=== PATIENT | male | born 1975 ===

== ENCOUNTER 2020-06-13 15:06 | Inpatient (IN) | payer OTHER, SELFPAY ==
--- NOTE | ~2020-06-13 | US_ITS ---
EXAMINATION: US VENOUS WITH DOPPLER UPPER EXTREMITY, RIGHT CLINICAL INFORMATION: Swelling at prior IV site COMPARISON: None TECHNIQUE: Ultrasound of the upper extremity is performed using compression sonography and color and pulse Doppler flow with assessment of augmentation of flow. There is also imaging and Doppler assessment of the jugular and subclavian veins. Spectral analysis with color-flow imaging is performed. FINDINGS: Respiratory variation, normal compression, and augmented flow are noted throughout in the right neck, right subclavian, right axillary and proximal upper extremity including the axillary, brachial, cubital, and radial and ulnar veins to the level of the elbow. There is normal flow in the internal jugular and subclavian veins. There is no visible deep thrombus. There is distention with abnormal hypoechoic echoes within 2 superficial veins in the distal right upper extremity distal to the elbow and extending to the wrist. There is incomplete color saturation and noncompressibility. Nonspecific right cervical lymph nodes. US/US venous duplex UE RT IMPRESSION: There are 2 thrombosed superficial veins in the distal aspect of the right upper extremity. These are distal to the elbow and extending to the wrist and are likely acute. This critical result was discussed with TOO Carmen at 1845 on 06/15/20 and it was ascertained that the content and urgency of the report was understood at the time of direct communication.
--- NOTE | ~2020-06-13 | XR_ITS ---
EXAMINATION: XR CHEST CLINICAL INFORMATION: Covid 19 COMPARISON: None TECHNIQUE: Upright frontal portable view of the chest was obtained. FINDINGS: Devices overlie the patient. There is slight rotation toward the right. Cardiac size is within normal limits. There is no mediastinal or hilar mass. No alveolar edema. There are low lung volumes. There is blunting of the left lateral costophrenic sulcus. No consolidation in the upper lung zones. No pneumothorax. Chronic appearing abnormality of the right AC joint. XR/XR chest 1V IMPRESSION: Hypoinflation with a small opacity at the left lateral costophrenic sulcus. No pneumothorax or edema
[2020-06-13 15:24] VITALS: BP 149/86; PULSE 93; RESP 18; TEMP 37.2; O2SAT 97; BMI 32.2
[2020-06-13 15:33] VITALS: BP 149/86; PULSE 93; RESP 18; TEMP 37.2; O2SAT 97
[2020-06-13 15:44] LABS: Glucose, Whole Blood 138 mg/dL (60-115)
--- NOTE | 2020-06-13 16:38 | PC.NURSE ---
Pt awaiting medical clearance. Pt asleep at current. No signs of distress. Respirations even and unlabored.
[2020-06-13 16:47] LABS: Amphetamine Screen Urine Not Detected (Not Detect); Barbiturates, Urine Not Detected (Not Detect); Benzodiazepines Screen Urine Not Detected (Not Detect); Cannabinoid Screen Urine POSITIVE (Not Detect); Cocaine Screen Urine POSITIVE (Not Detect); Opiate Screen Urine POSITIVE (Not Detect); Phencyclidine Screen Urine POSITIVE (Not Detect)
[2020-06-13 16:58] LABS: Appearance Urine CLEAR; Color Urine YELLOW; Glucose Urine UA NEG (NEG); Leukocyte Esterase Urine NEG (NEG); Nitrite Urine NEG (NEG); Specific Gravity - Urine >= 1.030 (1.005-1.025); Urine Blood NEG (NEG); Urine Ketones 5 MG/DL (NEG); Urine Protein TRACE MG/DL (NEG-TRACE)
[2020-06-13] MEDS: Acetaminophen 325 MG TABLET 650 MG PO (17:12)
[2020-06-13 17:13] LABS: MANUAL DIFF FLAG NO
[2020-06-13 17:15] LABS: Basophils Percent Auto 0.5 % (0-2); Eosinophils Percent Auto 0.5 % (0-4); Hematocrit 39.9 % (42-52); Hemoglobin 13.4 g/dl (14.0-18.0); Imm Gran Abs Auto 0.01 X10*3/uL (0.00-0.03); Imm Gran Pct Auto 0.2 % (0.0-0.4); Lymphocytes Absolute Auto 2.1 X10*3/uL (1.2-4.9); Lymphocytes Percent Auto 36.9 % (20-40); Mean Corpuscular HGB Conc 33.6 g/dl (31.0-36.0); Mean Corpuscular Hemoglobin 29.3 pg (27.0-33.0); Mean Corpuscular Volume 87.3 fL (80-98); Mean Platelet Volume 9.3 fL (9.4-12.4); Monocytes Absolute Auto 0.8 X10*3/uL (0.1-1.2); Monocytes Percent Auto 13.9 % (2-11); Neutrophils Absolute Auto 2.7 X10*3/uL (2.0-8.3); Platelet Count 391 X10*3/uL (160-400); Red Blood Count 4.57 X10*6/uL (4.60-5.80); Red Cell Distribution Width 13.6 % (11.0-16.0); White Blood Count 5.7 X10*3/uL (4.8-10.8)
--- NOTE | 2020-06-13 17:16 | PC.NURSE ---
Pt reports that he has not been taking his suboxone, and has been using heroin IV daily, last used around 1100 today. Drinking 2-3 pints of Amaris daily. Reports that he has never experienced withdrawal symptoms from opiates or ETOH.
[2020-06-13 17:30] LABS: Lithium < 0.10 mmol/L (0.60-1.20)
[2020-06-13 17:37] LABS: Ethanol < 10 mg/dL
[2020-06-13 17:43] LABS: Alanine Aminotransferase 70 U/L (0-40); Albumin Level 3.9 g/dL (3.5-5.0); Alkaline Phosphatase 53 U/L (39-117); Anion Gap 11 (12-20); Aspartate Amino Transferase 81 U/L (5-37); Bilirubin Total 0.4 mg/dL (0.0-1.0); Blood Urea Nitrogen 3 mg/dL (9-16); Calcium 8.7 mg/dL (8.4-10.2); Carbon Dioxide 28 mmol/L (22-29); Chloride 100 mmol/L (96-108); Creatinine Clr Calc Pharmacy 156.8; Estimated Glomerular Filt Rate > 60; Glucose Random 119 mg/dL (60-115); Potassium 3.4 mmol/L (3.3-5.1); Sodium 136 mmol/L (135-145)
--- NOTE | 2020-06-13 18:10 | PC.NURSE ---
[facility] faxed and called, no ETA at this time.
--- NOTE | 2020-06-13 18:14 | PC.NURSE ---
Pt requesting a urinal, reports that he has neuropathy, and that it is painful for him to walk. No cuts or open wounds on the bottom of his feet. Sores around edge of toenail on right great toe, not open. Pt reports they have been there for sometime, and have not been healing.
[2020-06-13 18:17] LABS: COVID-19 Test Positive (Negative)
--- NOTE | 2020-06-13 18:41 | PC.NURSE ---
Shahla, viscose cellar charge hand, and Casey, provider, aware that pt is + COVID
--- NOTE | 2020-06-13 19:02 | PC.NURSE ---
Report received. PT is resting quietly in bed. Calm and cooperative. PT is waiting to be seen by N.
--- NOTE | 2020-06-13 20:31 | ED.PSYCH ---
HPI - Psych General Chief Complaint: Psychiatric Symptoms <Casey Sánchez NP - Last Filed: 06/13/20 20:53> Stated Complaint: crisis <Casey Sánchez NP - Last Filed: 06/13/20 20:53> Time Seen by Provider: 06/13/20 18:28 <Casey Sánchez NP - Last Filed: 06/13/20 20:53> Source: patient <Casey Sánchez NP - Last Filed: 06/13/20 20:53> Mode of arrival: ambulatory <Casey Sánchez NP - Last Filed: 06/13/20 20:53> Limitations: no limitations <Casey Sánchez NP - Last Filed: 06/13/20 20:53> History of Present Illness HPI Narrative: This is a 45-year-old male with significant medical history that consists of diabetes he is insulin-dependent, hypertension, gastroesophageal reflux disease, schizophrenia, hyponatremia, multiple drug overdoses with polysubstance abuse currently some day smoker and currently enrolled in a Suboxone program who presents via EMS from [facility] where he was expressing thoughts of suicidal ideation he does report history of schizophrenia and also intermittent use of cocaine and admits to using EtOH today. He otherwise denies any medical problems today. No recent illness. No specific plan expressed. <Casey Sánchez NP - Last Filed: 06/13/20 20:53> MD complaint: suicidal ideation and feels depressed <Casey Sánchez NP - Last Filed: 06/13/20 20:53> Related Data Home Medications: Home Medications Medication Instructions Recorded Confirmed albuterol sulfate 2 puff INHALATION Q4-6H PRN 06/13/20 06/13/20 benztropine 1 mg PO BID 06/13/20 06/13/20 bisacodyl 10 mg PO DAILY PRN 06/13/20 06/13/20 buprenorphine-naloxone [Suboxone] 1 film BUCCAL BID 06/13/20 06/13/20 bupropion HCl [Wellbutrin XL] 150 mg PO DAILY 06/13/20 06/13/20 clonidine HCl 0.2 mg PO DAILY 06/13/20 06/13/20 diphenhydramine HCl [Benadryl] 50 mg PO BEDTIME 06/13/20 06/13/20 docusate sodium [Colace] 100 mg PO BID PRN 06/13/20 06/13/20 duloxetine 60 mg PO DAILY 06/13/20 06/13/20 finasteride 5 mg PO DAILY 06/13/20 06/13/20 gabapentin 600 mg PO BID 06/13/20 06/13/20 glipizide 10 mg PO DAILY 06/13/20 06/13/20 hydroxyzine pamoate 50 mg PO TID PRN 06/13/20 06/13/20 ibuprofen 400 mg PO Q12H PRN 06/13/20 06/13/20 insulin glargine [Lantus U-100 70 unit SUBCUT BEDTIME 06/13/20 06/13/20 Insulin] lisinopril 20 mg PO DAILY 06/13/20 06/13/20 lithium carbonate 450 mg PO BID 06/13/20 06/13/20 metformin 1,000 mg PO BIDWM 06/13/20 06/13/20 mirtazapine 15 mg PO BEDTIME 06/13/20 06/13/20 naloxone [Narcan] 4 mg INTRANASAL Q2M PRN 06/13/20 06/13/20 nicotine (polacrilex) 2 mg BUCCAL Q2H PRN 06/13/20 06/13/20 nicotine [Nicoderm CQ] 1 patch TRANSDERMAL DAILY 06/13/20 06/13/20 omeprazole 20 mg PO DAILY 06/13/20 06/13/20 perphenazine 16 mg PO BID 06/13/20 06/13/20 polyethylene glycol 3350 [Miralax] 17 g PO DAILY 06/13/20 06/13/20 quetiapine [Seroquel] 600 mg PO DAILY 06/13/20 06/13/20 simvastatin 20 mg PO BEDTIME 06/13/20 06/13/20 tamsulosin [Flomax] 0.4 mg PO BEDTIME 06/13/20 06/13/20 tizanidine [Zanaflex] 4 mg PO BID 06/13/20 06/13/20 topiramate 50 mg PO BEDTIME 06/13/20 06/13/20 trazodone 100 mg PO BEDTIME 06/13/20 06/13/20 triamterene-hydrochlorothiazid 1 tab PO DAILY 06/13/20 06/13/20 venlafaxine [Effexor XR] 150 mg PO DAILY 06/13/20 06/13/20 <Casey Sánchez NP - Last Filed: 06/13/20 20:53> Allergies/Adverse Reactions: Allergies Allergy/AdvReac Type Severity Reaction Status Date / Time buprenorphine [From Subutex] Allergy Angioedema Verified 06/13/20 17:10 <Casey Sánchez NP - Last Filed: 06/13/20 20:53> Review of Systems Review of Systems: Constitutional: No Weight loss, No Fever, No Chills, No Night Sweats, No Fatigue, No Malaise ENT/Mouth: No Hearing loss, No Ear Pain, No Nasal Congestion, No Sinus Pain, No Hoarseness, No sore throat, No Rhinorrhea, No Swallowing Difficulty Eyes: No Eye Pain, No Swelling, No Redness, No Foreign Body, No Discharge, No Vision Changes Cardiovascular: No Chest Pain, No SOB, No Dyspnea on Exertion, No Orthopnea, No Edema, No Palpitations Respiratory: No Cough, No Sputum, No Wheezing, No Smoke Exposure, No Dyspnea Gastrointestinal: No Nausea, No Vomiting, No Diarrhea, No Constipation, No abdominal Pain, No Hematochezia, No Melena Genitourinary: No Dysuria, No Urinary Frequency, No Hematuria, No Urinary Incontinence, No Urgency, No Flank Pain, No Urinary Flow Changes, No Hesitancy Musculoskeletal: No joint pain, No Myalgias, No Joint Swelling Skin: No Skin Lesions, No rash Neuro: No Weakness, No Numbness, No Paresthesias, No Loss of Consciousness, No Dizziness, No Headache Psych: As noted per HPI Heme/Lymph: No Bruising, No Bleeding,No Lymphadenopathy Endocrine: No Polyuria, No Polydipsia, No Temperature Intolerance <Casey Sánchez NP - Last Filed: 06/13/20 20:53> Yes all other systems are reviewed and are negative <Casey Sánchez NP - Last Filed: 06/13/20 20:53> [facility] Past Medical History [facility] Narrative: Type 2 diabetes Hypertension Acid reflux Opiate dependence History of cocaine induced [place] HCV Schizophrenia h/o hyponatremia h/o multiple drug overdoses <Casey Sánchez NP - Last Filed: 06/13/20 20:53> Social History Social History: Social History Alcohol intake: current Smoking Status: Current every day smoker Smoked in Last 30 Days: Yes Use of substances other than those prescribed or required for medical reasons: Yes Substance Use Type: Crack/Cocaine Advance Directives: No Advance Directives Information Provided: Yes <Casey Sánchez NP - Last Filed: 06/13/20 20:53> Physical Exam Vital Signs: Vital Signs: Last Vital Signs Temp 97.2 F 06/14/20 05:07 Pulse 70 06/14/20 05:07 Resp 17 06/14/20 05:07 BP 135/87 06/14/20 05:07 Pulse Ox 98 06/14/20 05:07 Body Mass Index 32.2 Reviewed <Casey Sánchez NP - Last Filed: 06/13/20 20:53> Vital Signs: Last Vital Signs Temp 97.2 F 06/14/20 05:07 Pulse 70 06/14/20 05:07 Resp 17 06/14/20 05:07 BP 135/87 06/14/20 05:07 Pulse Ox 98 06/14/20 05:07 Body Mass Index 32.2 <RESHMA Brooks - Last Filed: 06/14/20 08:30> Const: General: cooperative and healthy appearing; No acute distress or intoxicated appearing <Casey Sánchez NP - Last Filed: 06/13/20 20:53> Nutritional Appearance: average body habitus <Casey Sánchez NP - Last Filed: 06/13/20 20:53> Orientation/consciousness: patient oriented x3 <Casey Sánchez NP - Last Filed: 06/13/20 20:53> HENMT: Head: Yes normal to inspection <Casey Sánchez NP - Last Filed: 06/13/20 20:53> Ears: hearing grossly normal bilaterally <Casey Sánchez NP - Last Filed: 06/13/20 20:53> Eyes: General: appearance normal, both eyes and all related structures <Casey Sánchez NP - Last Filed: 06/13/20 20:53> Visual Calderón: normal visual calderón by confrontation <Casey Sánchez NP - Last Filed: 06/13/20 20:53> Neck: Neck: Yes normal visual inspection, No positive Brudzinski's sign, No positive Kernig's sign and No tender <Casey Sánchez NP - Last Filed: 06/13/20 20:53> Thyroid: Thyroid normal <[facility] Sánchez, [employer]ERK - Last Filed: 06/13/20 20:53> Chest: Chest palpation & inspection: normal inspection of the chest <Casey Sánchez, PENDING S[facility] TO [facility] Last Filed: 06/13/20 20:53> Resp: Effort & Inspection: normal respiratory effort <[facility] Sánchez, [facility]END[facility] TO [facility] Last Filed: 06/13/20 20:53> Auscultation: clear to auscultation bilaterally <[facility] Sánchez, PEND[facility] TO [facility] Last Filed: 06/13/20 20:53> Cardio: Jugular venous distension: no JVD <[facility] Last Filed: 06/13/20 20:53> Rhythm: regular rhythm <[facility] Last Filed: 06/13/20 20:53> Heart sounds: S1 normal heart sound present and S2 normal heart sound present <[facility] Last Filed: 06/13/20 20:53> GI: Inspection: Yes normal to inspection <[facility] Last Filed: 06/13/20 20:53> Percussion: Yes normal to percussion <[facility] WHE[employer]CHA[employer] RENTAL CLERK - Last Filed: 06/13/20 20:53> Auscultation: normal bowel sounds <Casey Sánchez, WHEELCHAIR RENTAL CLERK - Last Filed: 06/13/20 20:53> : General: Yes no CVA tenderness <[facility] Last Filed: 06/13/20 20:53> Back/Spine/Pelvis: Back: no CVA tenderness <Casey TOO Sánchez Last Filed: 06/13/20 20:53> Skin: General skin exam: no rashes or lesions noted <[facility] Last Filed: 06/13/20 20:53> Neuro: General: patient oriented x3 <Casey Sánchez NP - Last Filed: 06/13/20 20:53> Extrem: General: Yes normal to inspection <[facility] TOO Sánchez - Last Filed: 06/13/20 20:53> Course Course Course Narrative: In review 45-year-old male with significant history as noted above presenting with complaint of suicidal ideations with no specific plan. He is enrolled in Suboxone however still intermittently uses multiple substances and feels that he needs to get his life back in order feels suicidal and feels like he needs to have have hospitalization. He was admitted back in September of 2019 for SI with auditory hallucination. At this time will get medical screening labs and COVID test and obtain psychiatric evaluation once patient is medically clear. Patient offers no other medical complaints at this time. <Casey Sánchez NP - Last Filed: 06/13/20 20:53> 06/14/2020-- Physician observation started at 0826. Patient placed in physician observation because the patient needs more time to be seen and evaluated by N for the need for psych admission. At the time observation was started the patient's vitals were stable, patient is COVID-19 positive, currently sleeping, respirations unlabored. Labs reviewed. <RESHMA Brooks - Last Filed: 06/14/20 08:30> Reevaluation(s) Reevaluation #1: [id number] During medical screening labs his positive COVID however he denies any other symptoms. No recent illness. He is otherwise hemodynamically stable no chest pain or shortness of breath. Screening EKG order given polysubstance IU tox Medically cleared for psychiatric evaluation. <Casey Sánchez NP - Last Filed: 06/13/20 20:53> Reevaluation #2: 2100 Sign out to night team pending crisis evaluation. <Casey Sánchez NP - Last Filed: 06/13/20 20:53> MDM - Psych Lab Data Result diagrams: : 06/13/20 17:06 06/13/20 17:06 <Casey Sánchez NP - Last Filed: 06/13/20 20:53> Labs: Lab Results 06/13/20 06/13/20 06/13/20 Range/Units 15:40 16:13 16:13 WBC (4.8-10.8) X10*3/uL RBC (4.60-5.80) X10*6/uL Hgb (14.0-18.0) g/dl Hct (42-52) % MCV (80-98) fL MCH (27.0-33.0) pg MCHC (31.0-36.0) g/dl RDW (11.0-16.0) % Plt Count (160-400) X10*3/uL MPV (9.4-12.4) fL Immature Gran % (Auto) (0.0-0.4) % Neut % (Auto) (45-73) % Lymph % (Auto) (20-40) % Prentiss % (Auto) (2-11) % Eos % (Auto) (0-4) % Baso % (Auto) (0-2) % Lymph # (Auto) (1.2-4.9) X10*3/uL Prentiss # (Auto) (0.1-1.2) X10*3/uL Eos # (Auto) (0.0-0.4) X10*3/uL Baso # (Auto) (0.0-0.2) X10*3/uL Abs Immat Gran (auto) (0.00-0.03) X10*3/uL Absolute Neuts (auto) (2.0-8.3) X10*3/uL Absolute Nucleated RBC (0.0-0.012) X10*3/uL Nucleated RBC % (auto) (0.0-0.2) /100WBC Sodium (135-145) mmol/L Potassium (3.3-5.1) mmol/L Chloride (96-108) mmol/L Carbon Dioxide (22-29) mmol/L Anion Gap (12-20) BUN (9-16) mg/dL Creatinine (0.5-1.4) mg/dL Estim Creat Clear Calc Estimated GFR POC Glucose 138 H (60-115) mg/dL Random Glucose (60-115) mg/dL Calcium (8.4-10.2) mg/dL Total Bilirubin (0.0-1.0) mg/dL AST (5-37) U/L ALT (0-40) U/L Alkaline Phosphatase (39-117) U/L Total Protein (6.5-8.0) g/dL Albumin (3.5-5.0) g/dL Urine Color YELLOW Urine Appearance CLEAR Urine pH 5.0 (5.0-8.0) Ur Specific Royal >= 1.030 H (1.005-1.025) Urine Protein TRACE (NEG-TRACE) MG/DL Urine Glucose (UA) NEG (NEG) MG/DL Urine Ketones 5 (NEG) MG/DL Urine Blood NEG (NEG) Urine Nitrite NEG (NEG) Ur Leukocyte Esterase NEG (NEG) Urine Opiates Screen POSITIVE H (Not Detect) Ur Barbiturates Screen Not Detected (Not Detect) Ur Phencyclidine Scrn POSITIVE H (Not Detect) Ur Amphetamines Screen Not Detected (Not Detect) U Benzodiazepines Scrn Not Detected (Not Detect) [place] (0.60-1.20) mmol/L Urine Cocaine Screen POSITIVE H (Not Detect) U Marijuana (THC) Screen POSITIVE H (Not Detect) Ethyl Alcohol mg/dL COVID-19 (DELIO) (Negative) COVID-19 Clin Com 06/13/20 06/13/20 06/13/20 Range/Units 17:06 17:06 17:06 WBC 5.7 (4.8-10.8) X10*3/uL RBC 4.57 L (4.60-5.80) X10*6/uL Hgb 13.4 L (14.0-18.0) g/dl Hct 39.9 L (42-52) % MCV 87.3 (80-98) fL MCH 29.3 (27.0-33.0) pg MCHC 33.6 (31.0-36.0) g/dl RDW 13.6 (11.0-16.0) % Plt Count 391 (160-400) X10*3/uL MPV 9.3 L (9.4-12.4) fL Immature Gran % (Auto) 0.2 (0.0-0.4) % Neut % (Auto) 48.0 (45-73) % Lymph % (Auto) 36.9 (20-40) % Prentiss % (Auto) 13.9 H (2-11) % Eos % (Auto) 0.5 (0-4) % Baso % (Auto) 0.5 (0-2) % Lymph # (Auto) 2.1 (1.2-4.9) X10*3/uL Prentiss # (Auto) 0.8 (0.1-1.2) X10*3/uL Eos # (Auto) 0.0 (0.0-0.4) X10*3/uL Baso # (Auto) 0.0 (0.0-0.2) X10*3/uL Abs Immat Gran (auto) 0.01 (0.00-0.03) X10*3/uL Absolute Neuts (auto) 2.7 (2.0-8.3) X10*3/uL Absolute Nucleated RBC 0.000 (0.0-0.012) X10*3/uL Nucleated RBC % (auto) 0.0 (0.0-0.2) /100WBC Sodium 136 (135-145) mmol/L Potassium 3.4 (3.3-5.1) mmol/L Chloride 100 (96-108) mmol/L Carbon Dioxide 28 (22-29) mmol/L Anion Gap 11 L (12-20) BUN 3 L (9-16) mg/dL Creatinine 0.77 (0.5-1.4) mg/dL Estim Creat Clear Calc 156.8 Estimated GFR > 60 POC Glucose (60-115) mg/dL Random Glucose 119 H (60-115) mg/dL Calcium 8.7 (8.4-10.2) mg/dL Total Bilirubin 0.4 (0.0-1.0) mg/dL AST 81 H (5-37) U/L ALT 70 H (0-40) U/L Alkaline Phosphatase 53 (39-117) U/L Total Protein 7.0 (6.5-8.0) g/dL Albumin 3.9 (3.5-5.0) g/dL Urine Color Urine Appearance Urine pH (5.0-8.0) Ur Specific Royal (1.005-1.025) Urine Protein (NEG-TRACE) MG/DL Urine Glucose (UA) (NEG) MG/DL Urine Ketones (NEG) MG/DL Urine Blood (NEG) Urine Nitrite (NEG) Ur Leukocyte Esterase (NEG) Urine Opiates Screen (Not Detect) Ur Barbiturates Screen (Not Detect) Ur Phencyclidine Scrn (Not Detect) Ur Amphetamines Screen (Not Detect) U Benzodiazepines Scrn (Not Detect) [place] (0.60-1.20) mmol/L Urine Cocaine Screen (Not Detect) U Marijuana (THC) Screen (Not Detect) Ethyl Alcohol < 10 mg/dL COVID-19 (DELIO) (Negative) COVID-19 Clin Com 06/13/20 06/13/20 Range/Units 17:06 17:06 WBC (4.8-10.8) X10*3/uL RBC (4.60-5.80) X10*6/uL Hgb (14.0-18.0) g/dl Hct (42-52) % MCV (80-98) fL MCH (27.0-33.0) pg MCHC (31.0-36.0) g/dl RDW (11.0-16.0) % Plt Count (160-400) X10*3/uL MPV (9.4-12.4) fL Immature Gran % (Auto) (0.0-0.4) % Neut % (Auto) (45-73) % Lymph % (Auto) (20-40) % P[place]iss % (Auto) (2-11) % Eos % (Auto) (0-4) % Baso % (Auto) (0-2) % Lymph # (Auto) (1.2-4.9) X10*3/uL P[place] # (Auto) (0.1-1.2) X10*3/uL Eos # (Auto) (0.0-0.4) X10*3/uL Baso # (Auto) (0.0-0.2) X10*3/uL Abs Immat Gran (auto) (0.00-0.03) X10*3/uL Absolute Neuts (auto) (2.0-8.3) X10*3/uL Absolute Nucleated RBC (0.0-0.012) X10*3/uL Nucleated RBC % (auto) (0.0-0.2) /100WBC Sodium (135-145) mmol/L Potassium (3.3-5.1) mmol/L Chloride (96-108) mmol/L Carbon Dioxide (22-29) mmol/L Anion Gap (12-20) BUN (9-16) mg/dL Creatinine (0.5-1.4) mg/dL Estim Creat Clear Calc Estimated GFR POC Glucose (60-115) mg/dL Random Glucose (60-115) mg/dL Calcium (8.4-10.2) mg/dL Total Bilirubin (0.0-1.0) mg/dL AST (5-37) U/L ALT (0-40) U/L Alkaline Phosphatase (39-117) U/L Total Protein (6.5-8.0) g/dL Albumin (3.5-5.0) g/dL Urine Color Urine Appearance Urine pH (5.0-8.0) Ur Specific [place] (1.005-1.025) Urine Protein (NEG-TRACE) MG/DL Urine Glucose (UA) (NEG) MG/DL Urine Ketones (NEG) MG/DL Urine Blood (NEG) Urine Nitrite (NEG) Ur Leukocyte Esterase (NEG) Urine Opiates Screen (Not Detect) Ur Barbiturates Screen (Not Detect) Ur Phencyclidine Scrn (Not Detect) Ur Amphetamines Screen (Not Detect) U Benzodiazepines Scrn (Not Detect) [place] < 0.10 L (0.60-1.20) mmol/L Urine Cocaine Screen (Not Detect) U Marijuana (THC) Screen (Not Detect) Ethyl Alcohol mg/dL COVID-19 (DELIO) Positive A (Negative) COVID-19 Clin Com See Note <Casey Sánchez NP - Last Filed: 06/13/20 20:53> Lab Results 06/13/20 06/13/20 06/13/20 Range/Units 15:40 16:13 16:13 WBC (4.8-10.8) X10*3/uL RBC (4.60-5.80) X10*6/uL Hgb (14.0-18.0) g/dl Hct (42-52) % MCV (80-98) fL MCH (27.0-33.0) pg MCHC (31.0-36.0) g/dl RDW (11.0-16.0) % Plt Count (160-400) X10*3/uL MPV (9.4-12.4) fL Immature Gran % (Auto) (0.0-0.4) % Neut % (Auto) (45-73) % Lymph % (Auto) (20-40) % Prentiss % (Auto) (2-11) % Eos % (Auto) (0-4) % Baso % (Auto) (0-2) % Lymph # (Auto) (1.2-4.9) X10*3/uL P[place]iss # (Auto) (0.1-1.2) X10*3/uL Eos # (Auto) (0.0-0.4) X10*3/uL Baso # (Auto) (0.0-0.2) X10*3/uL Abs Immat Gran (auto) (0.00-0.03) X10*3/uL Absolute Neuts (auto) (2.0-8.3) X10*3/uL Absolute Nucleated RBC (0.0-0.012) X10*3/uL Nucleated RBC % (auto) (0.0-0.2) /100WBC Sodium (135-145) mmol/L Potassium (3.3-5.1) mmol/L Chloride (96-108) mmol/L Carbon Dioxide (22-29) mmol/L Anion Gap (12-20) BUN (9-16) mg/dL Creatinine (0.5-1.4) mg/dL Estim Creat Clear Calc Estimated GFR POC Glucose 138 H (60-115) mg/dL Random Glucose (60-115) mg/dL Calcium (8.4-10.2) mg/dL Total Bilirubin (0.0-1.0) mg/dL AST (5-37) U/L ALT (0-40) U/L Alkaline Phosphatase (39-117) U/L Total Protein (6.5-8.0) g/dL Albumin (3.5-5.0) g/dL Urine Color YELLOW Urine Appearance CLEAR Urine pH 5.0 (5.0-8.0) Ur Specific Royal >= 1.030 H (1.005-1.025) Urine Protein TRACE (NEG-TRACE) MG/DL Urine Glucose (UA) NEG (NEG) MG/DL Urine Ketones 5 (NEG) MG/DL Urine Blood NEG (NEG) Urine Nitrite NEG (NEG) Ur Leukocyte Esterase NEG (NEG) Urine Opiates Screen POSITIVE H (Not Detect) Ur Barbiturates Screen Not Detected (Not Detect) Ur Phencyclidine Scrn POSITIVE H (Not Detect) Ur Amphetamines Screen Not Detected (Not Detect) U Benzodiazepines Scrn Not Detected (Not Detect) [place] (0.60-1.20) mmol/L Urine Cocaine Screen POSITIVE H (Not Detect) U Marijuana (THC) Screen POSITIVE H (Not Detect) Ethyl Alcohol mg/dL COVID-19 (DELIO) (Negative) COVID-19 Clin Com 06/13/20 06/13/20 06/13/20 Range/Units 17:06 17:06 17:06 WBC 5.7 (4.8-10.8) X10*3/uL RBC 4.57 L (4.60-5.80) X10*6/uL Hgb 13.4 L (14.0-18.0) g/dl Hct 39.9 L (42-52) % MCV 87.3 (80-98) fL MCH 29.3 (27.0-33.0) pg MCHC 33.6 (31.0-36.0) g/dl RDW 13.6 (11.0-16.0) % Plt Count 391 (160-400) X10*3/uL MPV 9.3 L (9.4-12.4) fL Immature Gran % (Auto) 0.2 (0.0-0.4) % Neut % (Auto) 48.0 (45-73) % Lymph % (Auto) 36.9 (20-40) % [place] % (Auto) 13.9 H (2-11) % Eos % (Auto) 0.5 (0-4) % Baso % (Auto) 0.5 (0-2) % Lymph # (Auto) 2.1 (1.2-4.9) X10*3/uL P[place]iss # (Auto) 0.8 (0.1-1.2) X10*3/uL Eos # (Auto) 0.0 (0.0-0.4) X10*3/uL Baso # (Auto) 0.0 (0.0-0.2) X10*3/uL Abs Immat Gran (auto) 0.01 (0.00-0.03) X10*3/uL Absolute Neuts (auto) 2.7 (2.0-8.3) X10*3/uL Absolute Nucleated RBC 0.000 (0.0-0.012) X10*3/uL Nucleated RBC % (auto) 0.0 (0.0-0.2) /100WBC Sodium 136 (135-145) mmol/L Potassium 3.4 (3.3-5.1) mmol/L Chloride 100 (96-108) mmol/L Carbon Dioxide 28 (22-29) mmol/L Anion Gap 11 L (12-20) BUN 3 L (9-16) mg/dL Creatinine 0.77 (0.5-1.4) mg/dL Estim Creat Clear Calc 156.8 Estimated GFR > 60 POC Glucose (60-115) mg/dL Random Glucose 119 H (60-115) mg/dL Calcium 8.7 (8.4-10.2) mg/dL Total Bilirubin 0.4 (0.0-1.0) mg/dL AST 81 H (5-37) U/L ALT 70 H (0-40) U/L Alkaline Phosphatase 53 (39-117) U/L Total Protein 7.0 (6.5-8.0) g/dL Albumin 3.9 (3.5-5.0) g/dL Urine Color Urine Appearance Urine pH (5.0-8.0) Ur Specific [place] (1.005-1.025) Urine Protein (NEG-TRACE) MG/DL Urine Glucose (UA) (NEG) MG/DL Urine Ketones (NEG) MG/DL Urine Blood (NEG) Urine Nitrite (NEG) Ur Leukocyte Esterase (NEG) Urine Opiates Screen (Not Detect) Ur Barbiturates Screen (Not Detect) Ur Phencyclidine Scrn (Not Detect) Ur Amphetamines Screen (Not Detect) U Benzodiazepines Scrn (Not Detect) [place] (0.60-1.20) mmol/L Urine Cocaine Screen (Not Detect) U Marijuana (THC) Screen (Not Detect) Ethyl Alcohol < 10 mg/dL COVID-19 (DELIO) (Negative) COVID-19 Clin Com 06/13/20 06/13/20 Range/Units 17:06 17:06 WBC (4.8-10.8) X10*3/uL RBC (4.60-5.80) X10*6/uL Hgb (14.0-18.0) g/dl Hct (42-52) % MCV (80-98) fL MCH (27.0-33.0) pg MCHC (31.0-36.0) g/dl RDW (11.0-16.0) % Plt Count (160-400) X10*3/uL MPV (9.4-12.4) fL Immature Gran % (Auto) (0.0-0.4) % Neut % (Auto) (45-73) % Lymph % (Auto) (20-40) % [place] % (Auto) (2-11) % Eos % (Auto) (0-4) % Baso % (Auto) (0-2) % Lymph # (Auto) (1.2-4.9) X10*3/uL [place] # (Auto) (0.1-1.2) X10*3/uL Eos # (Auto) (0.0-0.4) X10*3/uL Baso # (Auto) (0.0-0.2) X10*3/uL Abs Immat Gran (auto) (0.00-0.03) X10*3/uL Absolute Neuts (auto) (2.0-8.3) X10*3/uL Absolute Nucleated RBC (0.0-0.012) X10*3/uL Nucleated RBC % (auto) (0.0-0.2) /100WBC Sodium (135-145) mmol/L Potassium (3.3-5.1) mmol/L Chloride (96-108) mmol/L Carbon Dioxide (22-29) mmol/L Anion Gap (12-20) BUN (9-16) mg/dL Creatinine (0.5-1.4) mg/dL Estim Creat Clear Calc Estimated GFR POC Glucose (60-115) mg/dL Random Glucose (60-115) mg/dL Calcium (8.4-10.2) mg/dL Total Bilirubin (0.0-1.0) mg/dL AST (5-37) U/L ALT (0-40) U/L Alkaline Phosphatase (39-117) U/L Total Protein (6.5-8.0) g/dL Albumin (3.5-5.0) g/dL Urine Color Urine Appearance Urine pH (5.0-8.0) Ur Specific [place] (1.005-1.025) Urine Protein (NEG-TRACE) MG/DL Urine Glucose (UA) (NEG) MG/DL Urine Ketones (NEG) MG/DL Urine Blood (NEG) Urine Nitrite (NEG) Ur Leukocyte Esterase (NEG) Urine Opiates Screen (Not Detect) Ur Barbiturates Screen (Not Detect) Ur Phencyclidine Scrn (Not Detect) Ur Amphetamines Screen (Not Detect) U Benzodiazepines Scrn (Not Detect) [place] < 0.10 L (0.60-1.20) mmol/L Urine Cocaine Screen (Not Detect) U Marijuana (THC) Screen (Not Detect) Ethyl Alcohol mg/dL COVID-19 (DELIO) Positive A (Negative) COVID-19 Clin Com See Note <RESHMA Brooks - Last Filed: 06/14/20 08:30> Discharge Plan Discharge Prescriptions: No Action Lantus U-100 Insulin 100 unit/mL Solution 70 unit SUBCUT BEDTIME RF: 0 quetiapine [Seroquel] 300 mg Tablet 600 mg PO DAILY RF: 0 diphenhydramine HCl [Benadryl] 50 mg Capsule 50 mg PO BEDTIME RF: 0 polyethylene glycol 3350 [Miralax] 17 gram Powder In Packet 17 g PO DAILY RF: 0 nicotine (polacrilex) 2 mg Gum 2 mg BUCCAL Q2H PRN (Reason: Nicotine Cravings) RF: 0 tizanidine [Zanaflex] 4 mg Tablet 4 mg PO BID RF: 0 lisinopril 20 mg Tablet 20 mg PO DAILY RF: 0 glipizide 10 mg Tablet 10 mg PO DAILY RF: 0 venlafaxine [Effexor XR] 150 mg Capsule,Extended Release 24hr 150 mg PO DAILY RF: 0 hydroxyzine pamoate 50 mg Capsule 50 mg PO TID PRN (Reason: Anxiety) RF: 0 lithium carbonate 450 mg Tablet Extended Release 450 mg PO BID RF: 0 clonidine HCl 0.2 mg Tablet 0.2 mg PO DAILY RF: 0 tamsulosin [Flomax] 0.4 mg Capsule 0.4 mg PO BEDTIME RF: 0 trazodone 100 mg Tablet 100 mg PO BEDTIME RF: 0 simvastatin 20 mg Tablet 20 mg PO BEDTIME RF: 0 metformin 1,000 mg Tablet 1,000 mg PO BIDWM RF: 0 ibuprofen 400 mg Tablet 400 mg PO Q12H PRN (Reason: Pain (Scale Score 1-3)) RF: 0 benztropine 1 mg Tablet 1 mg PO BID RF: 0 nicotine [Nicoderm CQ] 21 mg/24 hr Patch 24 Hour 1 patch TRANSDERMAL DAILY RF: 0 docusate sodium [Colace] 100 mg Capsule 100 mg PO BID PRN (Reason: Constipation) RF: 0 gabapentin 300 mg Capsule 600 mg PO BID RF: 0 triamterene-hydrochlorothiazid 37.5-25 mg Tablet 1 tab PO DAILY RF: 0 omeprazole 20 mg Capsule,Delayed Release(Dr/Ec) 20 mg PO DAILY RF: 0 mirtazapine 15 mg Tablet 15 mg PO BEDTIME RF: 0 albuterol sulfate 90 mcg/actuation Hfa Aerosol Inhaler 2 puff INHALATION Q4-6H PRN (Reason: Shortness Of Breath) RF: 0 finasteride 5 mg Tablet 5 mg PO DAILY RF: 0 perphenazine 16 mg Tablet 16 mg PO BID RF: 0 bisacodyl 5 mg Tablet 10 mg PO DAILY PRN (Reason: Constipation) RF: 0 bupropion HCl [Wellbutrin XL] 150 mg Tablet Extended Release 24 Hr 150 mg PO DAILY RF: 0 topiramate 50 mg Tablet 50 mg PO BEDTIME RF: 0 duloxetine 60 mg Capsule,Delayed Release(Dr/Ec) 60 mg PO DAILY RF: 0 buprenorphine-naloxone [Suboxone] 8-2 mg Film 1 film BUCCAL BID RF: 0 Narcan 4 mg/actuation Lucile,Non-Aerosol 4 mg INTRANASAL Q2M PRN (Reason: Opiate Reversal) RF: 0 <Casey Sánchez NP - Last Filed: 06/13/20 20:53>
[2020-06-13 20:38] VITALS: BP 142/84; PULSE 80; RESP 20; TEMP 36.4; O2SAT 96
--- NOTE | 2020-06-13 20:45 | ECG_ITS ---
Test Reason : LOW BP Blood Pressure : / mmHG Vent. Rate : 070 BPM Atrial Rate : 070 BPM P-R Int : 184 ms QRS Dur : 150 ms QT Int : 438 ms P-R-T Axes : 021 -19 044 degrees QTc Int : 473 ms Normal sinus rhythm Right bundle branch block Left axis deviation Abnormal ECG No previous ECGs available Referred By: Casey Sánchez Electronically Signed By:Rodriguez Bourne
[2020-06-13] MEDS: LORazepam 1 MG TABLET 2 MG PO (21:07)
[2020-06-13] MEDS: Gabapentin 300 MG CAPSULE 600 MG PO (22:18)
[2020-06-13] MEDS: Mirtazapine 15 MG TABLET PO (22:18)
[2020-06-13] MEDS: traZODone HCL 100 MG TABLET PO (22:18)
[2020-06-13] MEDS: Lithium Carbonate ER 450 MG TABLET.ER PO (22:18)
[2020-06-13] MEDS: Atorvastatin Calcium 10 MG TABLET PO (22:18)
[2020-06-13] MEDS: TiZANidine HCL 4 MG TABLET PO (22:18)
[2020-06-13] MEDS: Benztropine Mesylate 1 MG TABLET PO (22:18)
[2020-06-13] MEDS: Topiramate 25 MG TABLET 50 MG PO (22:19)
[2020-06-13] MEDS: Insulin Glargine,Hum.rec.anlog 100 UNIT/ML 10 ML VIAL 70 UNIT SUBCUT (22:19)
[2020-06-13] MEDS: diphenhydrAMINE HCL 25 MG TABLET 50 MG PO (22:19)
[2020-06-13] MEDS: Tamsulosin HCL 0.4 MG CAPSULE PO (22:19)
[2020-06-14] VITALS (8 sets, daily range): BP systolic 90–143; BP diastolic 40–94; PULSE 59–78; RESP 14–19; TEMP 36.2–37.1; O2SAT 95–99
--- NOTE | 2020-06-14 06:52 | PC.NURSE ---
Report received. Pt currently sleeping, respirations even and unlabored, in no apparent distress. Pt is inpatient bedsearch.
--- NOTE | 2020-06-14 07:37 | PC.NURSE ---
Report given to Xavier JIMENEZ. PT to move to main ED
[2020-06-14] MEDS: glipiZIDE 10 MG TABLET PO (10:37)
[2020-06-14] MEDS: metFORMIN HCl 1,000 MG TABLET 1000 MG PO (10:38)
[2020-06-14] MEDS: DULoxetine HCl 60 MG CAPSULE.DR PO (10:38)
[2020-06-14] MEDS: Benztropine Mesylate 1 MG TABLET PO (10:38)
[2020-06-14] MEDS: TiZANidine HCL 4 MG TABLET PO (10:38)
[2020-06-14] MEDS: cloNIDine HCL 0.2 MG TABLET PO (10:38)
[2020-06-14] MEDS: Finasteride 5 MG TABLET PO (10:38)
[2020-06-14] MEDS: Gabapentin 300 MG CAPSULE 600 MG PO (10:38)
[2020-06-14] MEDS: Omeprazole 20 MG CAPSULE.DR PO (10:39)
[2020-06-14] MEDS: buPROPion HCl XL 150 MG TAB.ER.24H PO (10:39)
[2020-06-14] MEDS: QUEtiapine Fumarate 300 MG TABLET 600 MG PO (10:39)
[2020-06-14] MEDS: Perphenazine 8 MG TABLET 16 MG PO (10:39)
[2020-06-14] MEDS: Lithium Carbonate ER 450 MG TABLET.ER PO (10:40)
[2020-06-14] MEDS: polyethylene glycoL 3350 17 GM POWD.PACK PO (10:40)
[2020-06-14] MEDS: Venlafaxine HCl ER 150 MG CAP.ER.24H PO (10:40)
[2020-06-14] MEDS: Buprenorphine/Naloxone 8/2 mg FILM 1 FILM BUCCAL (10:40)
[2020-06-14] MEDS: Nicotine 21 MG PATCH.TD24 TRANSDERMA (10:40)
[2020-06-14] MEDS: Triamterene/HCTZ 37.5/25 TABLET 1 TAB PO (11:01)
--- NOTE | 2020-06-14 12:49 | PC.NURSE ---
pt continues to rest in bed, rr even/unlabored. 1:[address], wctm.
[2020-06-14 17:57] LABS: Glucose, Whole Blood 76 mg/dL (60-115)
[2020-06-14 17:58] LABS: Basophils Percent Auto 0.3 % (0-2); Hemoglobin 9.6 g/dl (14.0-18.0); Imm Gran Abs Auto 0.02 X10*3/uL (0.00-0.03); Imm Gran Pct Auto 0.6 % (0.0-0.4); Lymphocytes Absolute Auto 0.3 X10*3/uL (1.2-4.9); Lymphocytes Percent Auto 9.1 % (20-40); MANUAL DIFF FLAG SCAN; Mean Corpuscular Hemoglobin 29.6 pg (27.0-33.0); Mean Corpuscular Volume 92.6 fL (80-98); Monocytes Absolute Auto 0.3 X10*3/uL (0.1-1.2); Monocytes Percent Auto 7.2 % (2-11); Neutrophils Percent Auto 82.8 % (45-73); Platelet Count 223 X10*3/uL (160-400); Red Blood Count 3.24 X10*6/uL (4.60-5.80); Red Cell Distribution Width 13.9 % (11.0-16.0); SCAN SMEAR FLAG 1; White Blood Count 3.6 X10*3/uL (4.8-10.8)
[2020-06-14] MEDS: Naloxone HCl Nasal 4 MG SPRAY NOSTRILALT (17:58)
[2020-06-14] MEDS: 0.9 % Sodium Chloride 1,000 ML 999 ML IVCONT (17:59)
--- NOTE | 2020-06-14 17:59 | PC.NURSE ---
THIS RN IN TO MEDICATE PT W PO METFORMIN, PT HARDLY RESPONSIVE, ONLY TO DEEP PAIN. PRESSURE CHECKED, APPEARS TO BE 60/30 BL, PROVIDER AT BEDSIDE TO EVAL PT. PT CONTINUES TO ONLY RESPOND TO DEEP PAIN. SPO2 SAT 95-96% ON RA ATT. PT MOVED TO [place] POSITION, IV PLACED IN R HAND. PT PRESSURES IMPROVING W 1 LITER AND TREND POSITION. IV ALSO PLACED IN R AC, REPEAT BLOOD LABS DRAWN AND SENT. CXR AT BEDSIDE. PT ALSO GIVEN 4MG NASAL NARCAN W NO EFFECT.
[2020-06-14 18:15] LABS: SLIDE REVIEW VERIFIED
[2020-06-14 18:40] LABS: Alanine Aminotransferase 39 U/L (0-40); Albumin Level 2.4 g/dL (3.5-5.0); Alkaline Phosphatase 32 U/L (39-117); Anion Gap 6 (12-20); Aspartate Amino Transferase 41 U/L (5-37); Bilirubin Direct 0.2 mg/dL (0.0-0.5); Bilirubin Total 0.3 mg/dL (0.0-1.0); Blood Urea Nitrogen 3 mg/dL (9-16); Calcium 5.6 mg/dL (8.4-10.2); Carbon Dioxide 22 mmol/L (22-29); Chloride 119 mmol/L (96-108); Creatinine Clr Calc Pharmacy 185.8; Estimated Glomerular Filt Rate > 60; Glucose Random 58 mg/dL (60-115); Magnesium 1.3 mg/dL (1.6-2.6); Potassium 2.6 mmol/L (3.3-5.1); Sodium 144 mmol/L (135-145); Total Protein 4.3 g/dL (6.5-8.0)
--- NOTE | 2020-06-14 18:49 | PC.NURSE ---
pt w critical low glucose, vo from jeana bishop to push d50 iv. medicated per emar.
[2020-06-14 19:46] LABS: Lactic Acid 1.2 mmol/L (0.5-2.0)
[2020-06-14 20:14] LABS: Anion Gap 10 (12-20); Blood Urea Nitrogen 5 mg/dL (9-16); Calcium 8.6 mg/dL (8.4-10.2); Carbon Dioxide 27 mmol/L (22-29); Chloride 106 mmol/L (96-108); Creatinine Clr Calc Pharmacy 137.2; Estimated Glomerular Filt Rate > 60; Glucose Random 135 mg/dL (60-115); Potassium 3.9 mmol/L (3.3-5.1); Sodium 139 mmol/L (135-145)
[2020-06-14 20:22] LABS: Glucose, Whole Blood 117 mg/dL (60-115)
--- NOTE | 2020-06-14 21:27 | PC.NURSE ---
PA HELD MEDICATION DUE TO PATIENT'S SEDATION LEVEL. BLOOD GLUCOSE 117 AND LANTUS HELD
[2020-06-15] VITALS (7 sets, daily range): BP systolic 120–162; BP diastolic 82–96; PULSE 63–77; RESP 14–22; TEMP 36.6–37.1; O2SAT 96–99
[2020-06-15 03:27] LABS: Glucose, Whole Blood 66 mg/dL (60-115)
--- NOTE | 2020-06-15 04:14 | PC.NURSE ---
Patient was given 25 gm of dextrose for decreased blood sugar.
--- NOTE | 2020-06-15 04:15 | PC.NURSE ---
Patient drop blood sugar to 66 despite lantus and metformin being held. Patient has had decreased intake of food and water. Blood sugars to be checked again
--- NOTE | 2020-06-15 05:00 | PC.NURSE ---
Patient's repeat blood sugar was 217.
[2020-06-15 06:51] LABS: Glucose, Whole Blood 217 mg/dL (60-115)
[2020-06-15 07:30] LABS: Glucose, Whole Blood 82 mg/dL (60-115)
--- NOTE | 2020-06-15 08:49 | PC.NURSE ---
held morning meds at this time per May Mejia, plan to adjust med rec/future hold due to patient status.
[2020-06-15 11:49] LABS: Glucose, Whole Blood 91 mg/dL (60-115)
[2020-06-15 11:59] LABS: MANUAL DIFF FLAG NO
[2020-06-15 12:00] LABS: Basophils Percent Auto 0.5 % (0-2); Hematocrit 43.8 % (42-52); Hemoglobin 14.2 g/dl (14.0-18.0); Lymphocytes Absolute Auto 1.1 X10*3/uL (1.2-4.9); Lymphocytes Percent Auto 28.1 % (20-40); Mean Corpuscular HGB Conc 32.4 g/dl (31.0-36.0); Mean Corpuscular Hemoglobin 28.7 pg (27.0-33.0); Mean Corpuscular Volume 88.7 fL (80-98); Mean Platelet Volume 9.2 fL (9.4-12.4); Monocytes Absolute Auto 0.7 X10*3/uL (0.1-1.2); Monocytes Percent Auto 17.6 % (2-11); Neutrophils Absolute Auto 2.1 X10*3/uL (2.0-8.3); Neutrophils Percent Auto 52.8 % (45-73); Platelet Count 307 X10*3/uL (160-400); Red Blood Count 4.94 X10*6/uL (4.60-5.80); Red Cell Distribution Width 13.9 % (11.0-16.0); White Blood Count 3.9 X10*3/uL (4.8-10.8)
[2020-06-15] MEDS: buPROPion HCl XL 150 MG TAB.ER.24H PO (12:18)
[2020-06-15] MEDS: Lithium Carbonate ER 450 MG TABLET.ER PO ×2 (12:19→21:28)
[2020-06-15] MEDS: Omeprazole 20 MG CAPSULE.DR PO (12:19)
[2020-06-15] MEDS: Venlafaxine HCl ER 150 MG CAP.ER.24H PO (12:19)
[2020-06-15] MEDS: Finasteride 5 MG TABLET PO (12:20)
[2020-06-15] MEDS: DULoxetine HCl 60 MG CAPSULE.DR PO (12:20)
[2020-06-15] MEDS: Nicotine 21 MG PATCH.TD24 TRANSDERMA (12:21)
--- NOTE | 2020-06-15 12:28 | PC.NURSE ---
per pa hold metformin, cogentin, catapres, gabapentin, lisinopril, maxzide from today on as well as other meds held by previous providers. pharmacy aware of hold medications and will fix in computer.
--- NOTE | 2020-06-15 12:33 | PC.NURSE ---
documented against nicotene patch from 06/14/2020 d/t not being documented on previously by rn that day
[2020-06-15 15:50] LABS: Glucose, Whole Blood 106 mg/dL (60-115)
--- NOTE | 2020-06-15 15:53 | PC.NURSE ---
this rn in to medicate pt. pt reports r hand redness, swelling, and is warm to touch. pa to bedside and plan to ultra sound hand. iv removed from r thumb/hand
[2020-06-15] MEDS: Azithromycin 500 MG TABLET PO (15:55)
[2020-06-15] MEDS: Amoxicillin/Potassium Clav 875 MG TABLET PO ×2 (15:55→21:28)
[2020-06-15] MEDS: Buprenorphine/Naloxone 8/2 mg FILM 1 FILM BUCCAL (21:28)
[2020-06-15] MEDS: Atorvastatin Calcium 10 MG TABLET PO (21:28)
[2020-06-15] MEDS: Tamsulosin HCL 0.4 MG CAPSULE PO (21:28)
[2020-06-15] MEDS: Topiramate 25 MG TABLET 50 MG PO (21:28)
--- NOTE | 2020-06-15 22:50 | PC.NURSE ---
PATIENT MEDICATED ORDERED. REQUESTED AND GIVEN ICE WATER, GEN MADHU, AND PEANUT BUTTER & JELLY SANDWICH. SITTER REMAINS. WILL CONTINUE TO MONITOR.
[2020-06-16 02:33] VITALS: PULSE 74; RESP 16; O2SAT 97
[2020-06-16 04:00] VITALS: PULSE 72; RESP 16
--- NOTE | 2020-06-16 08:56 | PC.NURSE ---
spoke with Karyn pt is still a bed search, will be seen again when options are exausted.
[2020-06-16 12:00] VITALS: PULSE 72; RESP 18; O2SAT 100
[2020-06-16] MEDS: Nicotine 21 MG PATCH.TD24 TRANSDERMA (12:33)
[2020-06-16] MEDS: Buprenorphine/Naloxone 8/2 mg FILM 1 FILM BUCCAL ×2 (12:34→21:40)
[2020-06-16] MEDS: Amoxicillin/Potassium Clav 875 MG TABLET PO ×2 (12:34→21:38)
[2020-06-16 12:35] VITALS: BP 140/95; PULSE 68
[2020-06-16] MEDS: Omeprazole 20 MG CAPSULE.DR PO (12:35)
[2020-06-16] MEDS: buPROPion HCl XL 150 MG TAB.ER.24H PO (12:35)
[2020-06-16] MEDS: metFORMIN HCl 1,000 MG TABLET 1000 MG PO (12:35)
[2020-06-16] MEDS: DULoxetine HCl 60 MG CAPSULE.DR PO (12:35)
[2020-06-16] MEDS: Finasteride 5 MG TABLET PO (12:36)
[2020-06-16] MEDS: Azithromycin 250 MG TABLET PO (12:36)
[2020-06-16] MEDS: polyethylene glycoL 3350 17 GM POWD.PACK PO (12:36)
[2020-06-16] MEDS: glipiZIDE 10 MG TABLET PO (12:36)
[2020-06-16] MEDS: Venlafaxine HCl ER 150 MG CAP.ER.24H PO (12:36)
[2020-06-16] MEDS: Aspirin 81 MG TAB.CHEW PO (12:36)
[2020-06-16] MEDS: Lithium Carbonate ER 450 MG TABLET.ER PO ×2 (12:51→22:59)
[2020-06-16 12:52] LABS: Glucose, Whole Blood 98 mg/dL (60-115)
[2020-06-16 18:19] LABS: Glucose, Whole Blood 53 mg/dL (60-115)
--- NOTE | 2020-06-16 18:39 | PC.NURSE ---
POC, 53 gave orange juice, and held metforman
--- NOTE | 2020-06-16 19:29 | PC.NURSE ---
Report taken from pritesh Shannon RN resuming care. Sitter at bedside. Pt resting in bed. Continue to monitor. Plan to recheck POC.
[2020-06-16 19:50] LABS: Glucose, Whole Blood 73 mg/dL (60-115)
[2020-06-16] MEDS: Atorvastatin Calcium 10 MG TABLET PO (21:38)
[2020-06-16] MEDS: Gabapentin 300 MG CAPSULE 600 MG PO (21:38)
[2020-06-16] MEDS: Benztropine Mesylate 1 MG TABLET PO (21:39)
[2020-06-16] MEDS: Topiramate 25 MG TABLET 50 MG PO (21:39)
[2020-06-16] MEDS: traZODone HCL 100 MG TABLET PO (21:39)
[2020-06-16] MEDS: diphenhydrAMINE HCL 25 MG TABLET 50 MG PO (21:39)
[2020-06-16] MEDS: Tamsulosin HCL 0.4 MG CAPSULE PO (21:39)
[2020-06-16] MEDS: Mirtazapine 15 MG TABLET PO (21:39)
[2020-06-16 21:42] VITALS: BP 125/86; PULSE 74; RESP 16
--- NOTE | 2020-06-16 21:48 | PC.NURSE ---
Medicater per JUN. VSS. Pt provided with food/drink.
--- NOTE | 2020-06-16 22:41 | PC.NURSE ---
2100 Insulin held due to POC of 69 mg/dl. Pt provided with food/drink. Plan to reassess.
[2020-06-16 22:59] VITALS: PULSE 69; RESP 16
--- NOTE | 2020-06-16 23:00 | PC.NURSE ---
Medicated with [place] per MAR. VSS. Sitter at bedside.
[2020-06-16 23:17] LABS: Glucose, Whole Blood 69 mg/dL (60-115)
[2020-06-17] VITALS (9 sets, daily range): BP systolic 109–114; BP diastolic 69–77; PULSE 65–94; RESP 14–18; TEMP 36.6; O2SAT 95–99
[2020-06-17 00:33] LABS: Glucose, Whole Blood 83 mg/dL (60-115)
--- NOTE | 2020-06-17 01:38 | PC.NURSE ---
pm technician at bedside to obtain repeat lactic.
[2020-06-17 07:29] LABS: Glucose, Whole Blood 125 mg/dL (60-115)
[2020-06-17] MEDS: polyethylene glycoL 3350 17 GM POWD.PACK PO (08:29)
[2020-06-17] MEDS: Nicotine 21 MG PATCH.TD24 TRANSDERMA (08:29)
[2020-06-17] MEDS: Triamterene/HCTZ 37.5/25 TABLET 1 TAB PO (08:30)
[2020-06-17] MEDS: buPROPion HCl XL 150 MG TAB.ER.24H PO (08:30)
[2020-06-17] MEDS: Buprenorphine/Naloxone 8/2 mg FILM 1 FILM BUCCAL (08:30)
[2020-06-17] MEDS: DULoxetine HCl 60 MG CAPSULE.DR PO (08:30)
[2020-06-17] MEDS: glipiZIDE 10 MG TABLET PO (08:30)
[2020-06-17] MEDS: Gabapentin 300 MG CAPSULE 600 MG PO (08:30)
[2020-06-17] MEDS: Benztropine Mesylate 1 MG TABLET PO (08:30)
[2020-06-17] MEDS: Azithromycin 250 MG TABLET PO (08:31)
[2020-06-17] MEDS: Aspirin 81 MG TAB.CHEW PO (08:31)
[2020-06-17] MEDS: metFORMIN HCl 1,000 MG TABLET 1000 MG PO (08:31)
[2020-06-17] MEDS: Amoxicillin/Potassium Clav 875 MG TABLET PO (08:31)
[2020-06-17] MEDS: Omeprazole 20 MG CAPSULE.DR PO (08:31)
[2020-06-17] MEDS: Venlafaxine HCl ER 150 MG CAP.ER.24H PO (08:31)
[2020-06-17] MEDS: Lithium Carbonate ER 450 MG TABLET.ER PO (08:31)
[2020-06-17] MEDS: Finasteride 5 MG TABLET PO (08:32)
--- NOTE | 2020-06-17 08:53 | PC.NURSE ---
Pt sleeping, awakes easily. Accepted AM meds. Ate 100% of breakfast. NSR on tele. Clonidine held d/t BP 111/75 and pt with recent h/o hypotension, Casey Sánchez updated/approved. Pt does report SI with command auditory hallucinations to harm self. Pt is calm and cooperative, oriented x4. 1:1 pt observer maintained. Right hand edematous, +CMS, cap refill <2sec. Palpable radial pulse, warm compress applied as ordered.
--- NOTE | 2020-06-17 09:22 | PC.NURSE ---
new order for consult to psychiatry for med review
--- NOTE | 2020-06-17 12:01 | PC.NURSE ---
Mer macdonald to assess pt for psych consult
--- NOTE | 2020-06-17 13:56 | P.CNPS_ITS ---
History of Present Illness Date of Service: 06/17/2020 Chief Complaint: crisis Requesting physician: Casey Sánchez Discussed with referring provider: Yes Sources of Information: patient interviewed and chart reviewed Additional Sources of Information: RN from [facility] HPI Narrative: Patient is a 45 year old male with history of schizophrenia, opioid and cocaine use disorder Currently in ED awaiting psychiatric admission for reported suicidal ideation. Consult requested to make medication recommendations. Of note, patient found to be Covid + upon admission to ED. Patient seen in room 3 of ED. He was laying on stretcher, initially asleep, but woke to speak to this short story writer. Patient unable to name any of the medications he was currently prescribed, but would say yes to any medicaiton that was mentioned. He states that his psychiatric provider is Kerry at [address] [place] [address] in [facility]. Unable to tell me when he last saw her, but able to report that most recently he was at the [facility] and medicaitons were changed then. He is still reporting suicidal ideation (feeling that he morfin snot want to be alive), reports hearing voices telling him he should kill himself and that he is worthless. Medication list in chart is what was provided by PCP office. The medication list is extensive and a number of psychiatric medications are from the same class. PCP office faxed [facility] discharge summary from 05/14/2020 which included a medication list different from what was provided to [facility] initially. Collateral from RN at [facility] is also that patient was not taking medications as prescribed since discharge from hospital in May. She is unclear what if any medications patient was taking. Past Psychiatric History: Numerous psychiatric admissions Medical Evaluation Reviewed: Yes UDS positive for cocaine, PCP and opiates Personal & Social History: per RN at [facility], patient is currently homeless Review of Systems Constitutional: Reports body ache(s), Reports lethargy and Reports malaise Psychiatric: Reports anxiety, Reports depression, Reports hopelessness, Denies homicidal ideation and Reports suicidal ideation Diagnostics Vital Signs (24Hr): Vital Signs - 24 hr 06/16/20 21:42 06/16/20 22:59 06/17/20 00:09 Temperature Pulse Rate 74 69 65 Respiratory Rate 16 16 14 Blood Pressure 125/86 Pulse Oximetry 06/17/20 02:00 06/17/20 03:53 06/17/20 06:00 Temperature Pulse Rate Respiratory Rate 15 16 16 Blood Pressure Pulse Oximetry 06/17/20 06:12 06/17/20 08:31 06/17/20 08:43 Temperature 97.8 F Pulse Rate 93 72 86 Respiratory Rate 18 16 Blood Pressure 114/73 111/75 111/75 Pulse Oximetry 99 97 06/17/20 10:21 06/17/20 13:47 Temperature 97.8 F Pulse Rate 84 94 Respiratory Rate 16 16 Blood Pressure 112/77 109/69 Pulse Oximetry 95 96 Body Mass Index 32.2 Labs Results: 06/15/20 11:37 06/14/20 19:34 Labs: Laboratory Results - last 48 hr 06/15/20 06/16/20 06/16/20 15:44 12:44 18:14 POC Glucose 106 98 53 L* 06/16/20 06/16/20 06/17/20 19:35 22:10 00:25 POC Glucose 73 69 83 06/17/20 07:24 POC Glucose 125 H Imaging Radiology Impressions: ITS Impressions Chest X-Ray 06/14/20 17:26 IMPRESSION: Hypoinflation with a small opacity at the left lateral costophrenic sulcus. No pneumothorax or edema Venous Duplex 06/15/20 15:48 IMPRESSION: There are 2 thrombosed superficial veins in the distal aspect of the right upper extremity. These are distal to the elbow and extending to the wrist and are likely acute. This critical result was discussed with TOO Carmen at 1845 on 06/15/20 and it was ascertained that the content and urgency of the report was understood at the time of direct communication. Mental Status Exam Mental Status Exam Patient Appearance: Appropriate Patient Orientation: Person, Place and Situation Level of Consciousness: Appropriate Patient Behavior: Appropriate Mood Description: Blunted Affect Description: Blunted Ability to Follow Directions: Good Speech Pattern: Clear and Soft-Spoken Hallucinations: Auditory Thought Process: Rumination Thought Content: positive for Plato and positive for Suicidal Ideation Depressive Symptoms: Increased Anxiety, Feelings of Worthlessness, Hopelessness, Unhappiness and Low Self Esteem Judgement: Poor Medications Medications Current Medications Generic Name Dose Route Start Last Admin Trade Name Freq PRN Reason Stop Dose Admin Albuterol Sulfate 2 puff 06/13/20 20:37 Albuterol Sulfate 90 Mcg 8 Gm Inhaler INHALE Q4H PRN Shortness Of Breath Amoxicillin/Clavulanate Potassium 875 mg 06/15/20 14:55 06/17/20 08:31 Amoxicillin/Potassium Clav 875 Mg Tablet PO 06/22/20 14:54 875 mg BID SHABBIR Administration Aspirin 81 mg 06/16/20 09:00 06/17/20 08:31 Aspirin 81 Mg Tab.Chew PO 07/17/20 09:00 81 mg DAILY SHABBIR Administration Atorvastatin Calcium 10 mg 06/13/20 21:00 06/16/20 21:38 Atorvastatin Calcium 10 Mg Tablet PO 10 mg BEDTIME SHABBIR Administration Azithromycin 250 mg 06/16/20 09:00 06/17/20 08:31 Azithromycin 250 Mg Tablet PO 06/20/20 08:59 250 mg DAILY SHABBIR Administration Bisacodyl 10 mg 06/13/20 21:10 Bisacodyl 5 Mg Tablet.Dr PO DAILY PRN Constipation Buprenorphine/Naloxone 1 film 06/13/20 21:00 06/17/20 08:30 Buprenorphine/Naloxone 8/2 Mg Film BUCCAL 1 film BID SHABBIR Administration Bupropion HCl 150 mg 06/13/20 20:45 06/17/20 08:30 Bupropion Hcl Xl 150 Mg Tab.Er.24h PO 150 mg DAILY SHABBIR Administration Clonidine HCl 0.2 mg 06/13/20 20:45 06/17/20 08:39 Clonidine Hcl 0.2 Mg Tablet PO Not Given DAILY [facility] Protocol Docusate Sodium 100 mg 06/13/20 20:37 Docusate Sodium 100 Mg Capsule PO BID PRN Constipation Finasteride 5 mg 06/14/20 09:00 06/17/20 08:32 Finasteride 5 Mg Tablet PO 5 mg DAILY SHABBIR Administration Gabapentin 600 mg 06/13/20 21:00 06/17/20 08:30 Gabapentin 300 Mg Capsule PO 600 mg BID SHABBIR Administration Glipizide 10 mg 06/14/20 09:00 06/17/20 08:30 Glipizide 10 Mg Tablet PO 10 mg DAILY SHABBIR Administration Hydroxyzine HCl 50 mg 06/13/20 20:37 Hydroxyzine Hcl 50 Mg Tablet PO TID PRN Anxiety Ibuprofen 400 mg 06/13/20 21:03 Ibuprofen 400 Mg Tablet PO Q12H PRN Pain (Scale Score 1-3) Insulin Glargine 70 unit 06/13/20 21:00 06/16/20 22:40 Insulin Glargine,Hum.Rec.Anlog 100 Unit/Ml 10 Ml Vial SUBCUT Not Given BEDTIME SHABBIR Lisinopril 20 mg 06/14/20 09:00 06/17/20 08:31 Lisinopril 20 Mg Tablet PO 20 mg DAILY SHABBIR Administration Protocol [place] Carbonate 450 mg 06/13/20 21:00 06/17/20 08:31 [place] Carbonate Er 450 Mg Tablet.Er PO 450 mg BID SHABBIR Administration Metformin HCl 1,000 mg 06/14/20 08:00 06/17/20 08:31 Metformin Hcl 1,000 Mg Tablet PO 1,000 mg BIDWM SHABBIR Administration Naloxone HCl 4 mg 06/13/20 21:03 Naloxone Hcl Nasal 4 Mg [place] NOSTRILALT Q2M PRN Opiate Reversal Nicotine 21 mg 06/14/20 09:00 06/17/20 08:29 Nicotine 21 Mg Patch.Td24 TRANSDERMA 21 mg DAILY SHABBIR Administration Nicotine Polacrilex 2 mg 06/13/20 20:37 Nicotine Polacrilex 2 Mg Gum BUCCAL Q2H PRN Nicotine Cravings Omeprazole 20 mg 06/14/20 09:00 06/17/20 08:31 Omeprazole 20 Mg Capsule.Dr PO 20 mg DAILY SHABBIR Administration Polyethylene Glycol 17 gm 06/14/20 09:00 06/17/20 08:29 Polyethylene Glycol 3350 17 Gm Powd.Pack PO 17 gm DAILY SHABBIR Administration Quetiapine Fumarate 600 mg 06/14/20 09:00 06/14/20 10:39 Quetiapine Fumarate 300 Mg Tablet PO 600 mg DAILY SHABBIR Administration Tamsulosin HCl 0.4 mg 06/13/20 21:15 06/16/20 21:39 Tamsulosin Hcl 0.4 Mg Capsule PO 0.4 mg BEDTIME SHABBIR Administration Tizanidine HCl 4 mg 06/13/20 21:00 06/14/20 21:26 Tizanidine Hcl 4 Mg Tablet PO Not Given BID SHABBIR Trazodone HCl 100 mg 06/13/20 21:00 06/16/20 21:39 Trazodone Hcl 100 Mg Tablet PO 100 mg BEDTIME SHABBIR Administration Triamterene/Hydrochlorothiazide 1 tab 06/14/20 09:00 06/17/20 08:30 Triamterene/Hctz 37.5/25 Tablet PO 1 tab DAILY SHABBIR Administration Protocol Allergies Allergies Allergy/AdvReac Type Severity Reaction Status Date / Time buprenorphine [From Subutex] Allergy Angioedema Verified 06/13/20 17:10 Assessment & Plan Assessment & Plan (1) Schizophrenia: Status: Acute Code(s): F20.9 - Schizophrenia, unspecified Recommendations: * medication changes made to current orders--sevral discontinued and the following medications are now active -Zyprexa 5mg QHS -Wellbutrin 150mg QD -Gabapentin 300mg TID -Trazodone 100mg QHS -Hydroxyzine 50mg TID PRN -Clonidine 0.1mg BID PRN * Additional labs should be drawn: chem panel, TSH, * medication list placed in patient's chart, provider aware * patient awaiting psychiatric admission (2) Opioid use disorder: Status: Acute Code(s): F11.99 - Opioid use, unspecified with unspecified opioid-induced disorder Recommendations: Continue suboxone as currently ordered Greater than 50% of the session was spent on counseling and/or coordination of care
--- NOTE | 2020-06-17 14:47 | PC.NURSE ---
Pt continues to sleep throughout shift, awakes and asks for snacks. Pt observer remains for safety. Multiple med changes made by psych, see MAR for details
[2020-06-17 17:04] LABS: Glucose, Whole Blood 59 mg/dL (60-115)
[2020-06-17 17:43] LABS: Glucose, Whole Blood 105 mg/dL (60-115)
--- NOTE | 2020-06-17 18:20 | PC.NURSE ---
Addendum entered by Lamar Delarosa 06/17/20 18:45: recheck poc 105, metformin held, ate dinner 100% Original Note: POC 59, snack given, recheck
[2020-06-18] VITALS (9 sets, daily range): BP systolic 96–156; BP diastolic 56–78; PULSE 84–92; RESP 14–16; TEMP 36.5–37; O2SAT 95–98
[2020-06-18] MEDS: Amoxicillin/Potassium Clav 875 MG TABLET PO ×3 (00:10→20:26)
[2020-06-18] MEDS: OLANZapine 5 MG TABLET PO ×2 (00:10→20:26)
[2020-06-18] MEDS: Gabapentin 300 MG CAPSULE PO ×4 (00:10→20:26)
[2020-06-18] MEDS: Tamsulosin HCL 0.4 MG CAPSULE PO ×2 (00:10→20:26)
[2020-06-18] MEDS: traZODone HCL 100 MG TABLET PO ×2 (00:10→20:26)
[2020-06-18] MEDS: Atorvastatin Calcium 10 MG TABLET PO ×2 (00:11→20:26)
[2020-06-18] MEDS: Insulin Glargine,Hum.rec.anlog 100 UNIT/ML 10 ML VIAL 70 UNIT SUBCUT ×2 (00:11→20:26)
[2020-06-18] MEDS: Buprenorphine/Naloxone 8/2 mg FILM 1 FILM BUCCAL ×3 (00:11→20:27)
[2020-06-18] MEDS: glipiZIDE 10 MG TABLET PO (09:00)
[2020-06-18] MEDS: Aspirin 81 MG TAB.CHEW PO (09:00)
[2020-06-18] MEDS: Omeprazole 20 MG CAPSULE.DR PO (09:12)
[2020-06-18] MEDS: Finasteride 5 MG TABLET PO (09:12)
[2020-06-18] MEDS: Azithromycin 250 MG TABLET PO (09:12)
[2020-06-18] MEDS: metFORMIN HCl 1,000 MG TABLET 1000 MG PO ×2 (09:15→16:12)
--- NOTE | 2020-06-18 09:24 | PC.NURSE ---
spoke with Radhika from crisis. BedSEARCH REPORT PT MAY GO TO [facility]. nEED cOVID + RESULT FAXED TO HOSPITAL. ed SEC WORKING OIN THIS NOW
[2020-06-18 09:54] LABS: Prothrombin Time 12.2 SEC (10.8-13.0)
[2020-06-18 10:14] LABS: Alanine Aminotransferase 51 U/L (0-40); Alkaline Phosphatase 64 U/L (39-117); Anion Gap 11 (12-20); Aspartate Amino Transferase 52 U/L (5-37); Bilirubin Direct 0.3 mg/dL (0.0-0.5); Bilirubin Total 0.5 mg/dL (0.0-1.0); Blood Urea Nitrogen 10 mg/dL (9-16); Calcium 9.1 mg/dL (8.4-10.2); Carbon Dioxide 31 mmol/L (22-29); Chloride 97 mmol/L (96-108); Creatinine Clr Calc Pharmacy 120.7; Estimated Glomerular Filt Rate > 60; Glucose Random 122 mg/dL (60-115); Magnesium 1.8 mg/dL (1.6-2.6); Potassium 3.7 mmol/L (3.3-5.1); Sodium 135 mmol/L (135-145); Total Protein 7.6 g/dL (6.5-8.0)
[2020-06-18 10:31] LABS: Thyroid Stimulating Hormone 2.33 uIU/mL (0.32-4.0)
[2020-06-18] MEDS: buPROPion HCl XL 150 MG TAB.ER.24H PO (12:30)
[2020-06-18] MEDS: polyethylene glycoL 3350 17 GM POWD.PACK PO (12:30)
[2020-06-18] MEDS: Triamterene/HCTZ 37.5/25 TABLET 1 TAB PO (12:30)
[2020-06-18] MEDS: Nicotine 21 MG PATCH.TD24 TRANSDERMA (12:32)
[2020-06-18] MEDS: Ibuprofen 400 MG TABLET PO (12:46)
--- NOTE | 2020-06-18 12:48 | PC.NURSE ---
SITTER REMAINS AT BEDSIDE. PT CALM & COOPERATIVE THROUGHOUT AM, SLEEPING, RESP EVEN, NONLABOURED. ATE 100% OF BREAKFAST. C/O GENERALIZED MYALGIA. GIVEN PRN IBU. SOME TECHNICAL DIFFICULTIES DELAYED MED ADMINISTRATION.
--- NOTE | 2020-06-18 15:46 | PC.NURSE ---
PT SLEPING ALL MORNING, EASILY ROUSED.
--- NOTE | 2020-06-18 15:48 | PC.NURSE ---
CALL MADE OUT TO [facility]. REMAINS [facility] BEDSEARCH, NO BED AVAILABLE.
[2020-06-18 16:19] LABS: Glucose, Whole Blood 100 mg/dL (60-115)
[2020-06-18 20:06] LABS: Glucose, Whole Blood 146 mg/dL (60-115)
--- NOTE | 2020-06-18 21:48 | PC.NURSE ---
SITTER REMAINS AT BEDSIDE. PT CONTINUES TO SLEEP, EASILY WOKEN. ATE 100% OF DINNER. MEDS GIVEN WITH NO ISSUE. CONTINUES TO REPORT SI, WITH NO PLAN AT THIS TIME. COWS 6.
[2020-06-19] VITALS (11 sets, daily range): BP systolic 105–118; BP diastolic 66–77; PULSE 84–104; RESP 14–19; TEMP 36.5–36.9; O2SAT 96–99
[2020-06-19] MEDS: Amoxicillin/Potassium Clav 875 MG TABLET PO ×2 (09:00→20:48)
[2020-06-19] MEDS: Finasteride 5 MG TABLET PO (09:00)
[2020-06-19] MEDS: glipiZIDE 10 MG TABLET PO (09:00)
[2020-06-19] MEDS: metFORMIN HCl 1,000 MG TABLET 1000 MG PO ×2 (09:00→18:28)
[2020-06-19] MEDS: buPROPion HCl XL 150 MG TAB.ER.24H PO (09:01)
[2020-06-19] MEDS: Triamterene/HCTZ 37.5/25 TABLET 1 TAB PO (09:01)
[2020-06-19] MEDS: Aspirin 81 MG TAB.CHEW PO (09:01)
[2020-06-19] MEDS: Azithromycin 250 MG TABLET PO (09:01)
[2020-06-19] MEDS: Gabapentin 300 MG CAPSULE PO ×3 (09:01→20:48)
[2020-06-19] MEDS: Nicotine 21 MG PATCH.TD24 TRANSDERMA (09:03)
[2020-06-19] MEDS: polyethylene glycoL 3350 17 GM POWD.PACK PO (09:04)
[2020-06-19] MEDS: Omeprazole 20 MG CAPSULE.DR PO (09:05)
--- NOTE | 2020-06-19 10:00 | PC.NURSE ---
Pt sleeping but arousable. Offers no complaints at this time. Respirations even/unlabored bilaterally. No sign of distress. Will continue to monitor. provider aware.
[2020-06-19 10:18] LABS: COVID-19 Test Positive (Negative)
--- NOTE | 2020-06-19 14:06 | MHC.CARE ---
Rosamaria Spoke to Shoshana from [facility] Bedsearch team, they were waiting for 2nd COVID-19 test, faxed results to [phone]
[2020-06-19] MEDS: traZODone HCL 100 MG TABLET PO (20:48)
[2020-06-19] MEDS: OLANZapine 5 MG TABLET PO (20:48)
[2020-06-19] MEDS: Tamsulosin HCL 0.4 MG CAPSULE PO (20:48)
[2020-06-19] MEDS: Atorvastatin Calcium 10 MG TABLET PO (20:48)
[2020-06-19] MEDS: Insulin Glargine,Hum.rec.anlog 100 UNIT/ML 10 ML VIAL 70 UNIT SUBCUT (20:48)
--- NOTE | 2020-06-19 23:35 | PC.NURSE ---
REPORT TAKEN FROM NUVIA JIMENEZ. FIRST CONTACT WITH PT. RESTING IN BED SKIN PWD RESPIRATIONS EVEN UNLABORED. PO AT BEDSIDE FOR SAFETY. BED SEARCH CONTINUES.
[2020-06-20] VITALS (9 sets, daily range): BP systolic 104–108; BP diastolic 68–78; PULSE 76–92; RESP 16–97; TEMP 36.8; O2SAT 95–98
[2020-06-20] MEDS: Ibuprofen 400 MG TABLET PO (04:44)
[2020-06-20] MEDS: Triamterene/HCTZ 37.5/25 TABLET 1 TAB PO (08:41)
[2020-06-20] MEDS: metFORMIN HCl 1,000 MG TABLET 1000 MG PO ×2 (08:41→19:30)
[2020-06-20] MEDS: polyethylene glycoL 3350 17 GM POWD.PACK PO (08:41)
[2020-06-20] MEDS: Buprenorphine/Naloxone 8/2 mg FILM 1 FILM BUCCAL ×2 (08:42→22:34)
[2020-06-20] MEDS: Omeprazole 20 MG CAPSULE.DR PO (08:42)
[2020-06-20] MEDS: Nicotine 21 MG PATCH.TD24 TRANSDERMA (08:42)
[2020-06-20] MEDS: Aspirin 81 MG TAB.CHEW PO (08:42)
[2020-06-20] MEDS: Gabapentin 300 MG CAPSULE PO ×3 (08:42→22:33)
[2020-06-20] MEDS: Amoxicillin/Potassium Clav 875 MG TABLET PO ×2 (08:42→22:33)
[2020-06-20] MEDS: Finasteride 5 MG TABLET PO (08:42)
[2020-06-20] MEDS: glipiZIDE 10 MG TABLET PO (08:42)
[2020-06-20 08:46] LABS: Glucose, Whole Blood 150 mg/dL (60-115)
[2020-06-20] MEDS: buPROPion HCl XL 150 MG TAB.ER.24H PO (08:54)
[2020-06-20 18:08] LABS: Glucose, Whole Blood 74 mg/dL (60-115)
[2020-06-20] MEDS: Tamsulosin HCL 0.4 MG CAPSULE PO (22:32)
[2020-06-20] MEDS: OLANZapine 5 MG TABLET PO (22:32)
[2020-06-20] MEDS: Atorvastatin Calcium 10 MG TABLET PO (22:32)
[2020-06-20] MEDS: traZODone HCL 100 MG TABLET PO (22:33)
[2020-06-20] MEDS: Insulin Glargine,Hum.rec.anlog 100 UNIT/ML 10 ML VIAL 70 UNIT SUBCUT (22:33)
[2020-06-21 06:57] VITALS: RESP 16
--- NOTE | 2020-06-21 06:59 | PC.NURSE ---
REPORT FROM GEOVANY JIMENEZ. PT IS CURRENTLY ASLEEP, RESPIRATIONS EVEN AND UNLABORED. SITTER IN PLACE
--- NOTE | 2020-06-21 07:45 | PC.NURSE ---
pt set up breakfast ernestina, sitter at bedside
[2020-06-21 08:20] VITALS: BP 109/73; PULSE 65; RESP 16; O2SAT 95
[2020-06-21 09:09] VITALS: BP 109/71; PULSE 89; RESP 18; TEMP 36.7; O2SAT 94
[2020-06-21] MEDS: buPROPion HCl XL 150 MG TAB.ER.24H PO (09:11)
[2020-06-21 09:12] VITALS: BP 109/71; PULSE 89
[2020-06-21] MEDS: glipiZIDE 10 MG TABLET PO (09:12)
[2020-06-21] MEDS: Amoxicillin/Potassium Clav 875 MG TABLET PO ×2 (09:12→21:49)
[2020-06-21] MEDS: Triamterene/HCTZ 37.5/25 TABLET 1 TAB PO (09:12)
[2020-06-21] MEDS: Omeprazole 20 MG CAPSULE.DR PO (09:12)
[2020-06-21] MEDS: Aspirin 81 MG TAB.CHEW PO (09:12)
[2020-06-21] MEDS: Gabapentin 300 MG CAPSULE PO ×3 (09:12→21:49)
[2020-06-21] MEDS: Nicotine 21 MG PATCH.TD24 TRANSDERMA (09:13)
[2020-06-21] MEDS: Buprenorphine/Naloxone 8/2 mg FILM 1 FILM BUCCAL ×2 (09:13→21:49)
[2020-06-21] MEDS: Finasteride 5 MG TABLET PO (09:13)
[2020-06-21] MEDS: metFORMIN HCl 1,000 MG TABLET 1000 MG PO ×2 (09:14→15:29)
--- NOTE | 2020-06-21 09:20 | PC.NURSE ---
pt medicated with his morning medications pt calm and cooperative, continuos on reporting of si but no plan at this time pt also reports not sleeping well due to pin and needles in his hands and feet sitter in place
[2020-06-21 12:51] VITALS: RESP 17
--- NOTE | 2020-06-21 12:51 | PC.NURSE ---
patient currently sleeping, sitter at bedside, rr 17, will continue to monitor.
--- NOTE | 2020-06-21 14:24 | PC.NURSE ---
patient spoke with crisis via tele phone, crisis told this nurse that the patient would continue to be a bed search, 1:1 sitter at bedside, pt currently calm/cooporative, will continue to monitor.
--- NOTE | 2020-06-21 14:41 | PC.NURSE ---
patient telling sitter that he wants to sign out AMA as he is sick of waiting for a bed. provider notified section 12 has been renewed by the provider, will continue to monitor.
--- NOTE | 2020-06-21 15:40 | PC.NURSE ---
patient a&ox3, patient stated that he wanted to leave ama, when this nurse told him he was unable to leave because the provider will not allow him to do so patient was upset, when asked about si/hi, patient stated I want to hurt people because I am stuck here, I can just leave and take care of things myself , per crisis patient continues to be a bed search and as previously stated updated section 12 is in the chart, 1:1 sitter at bedside, will continue to monitor.
[2020-06-21 18:00] VITALS: RESP 18
[2020-06-21] MEDS: hydrOXYzine HCL 50 MG TABLET PO (18:38)
--- NOTE | 2020-06-21 18:40 | PC.NURSE ---
patient medicated with atarax per pt request, sitter at bedside, will continue to monitor.
[2020-06-21] MEDS: Insulin Glargine,Hum.rec.anlog 100 UNIT/ML 10 ML VIAL 70 UNIT SUBCUT (21:48)
[2020-06-21] MEDS: Tamsulosin HCL 0.4 MG CAPSULE PO (21:49)
[2020-06-21] MEDS: Atorvastatin Calcium 10 MG TABLET PO (21:49)
[2020-06-21] MEDS: OLANZapine 5 MG TABLET PO (21:49)
[2020-06-21] MEDS: traZODone HCL 100 MG TABLET PO (21:49)
--- NOTE | 2020-06-21 21:51 | PC.NURSE ---
patient showered in pod, linens changed, poc obtained-213, pt medicated per order, will continue to monitor.
[2020-06-21 21:58] LABS: Glucose, Whole Blood 213 mg/dL (60-115)
[2020-06-22] VITALS (7 sets, daily range): BP systolic 114–127; BP diastolic 68–82; PULSE 80–99; RESP 16–19; TEMP 36.6–36.7; O2SAT 98–99
--- NOTE | 2020-06-22 03:40 | PC.NURSE ---
PATIENT UP IN ROOM PACING REPORTS HAVING PAIN IN LEFT LOWER LEG AND FEELING ANXIOUS. REQUESTED FOR ATIVAN. DR SULTANA ORDER BENADRYL. THIS NURSE BROUGHT PRESCRIBED BENADRYL AND PRN IBUPROFEN TO ROOM. PT DECLINING BOTH I KNOW WHAT WORKS FOR MY BODY .
[2020-06-22] MEDS: Nicotine 21 MG PATCH.TD24 TRANSDERMA (08:25)
[2020-06-22] MEDS: Gabapentin 300 MG CAPSULE PO ×3 (08:25→20:56)
[2020-06-22] MEDS: Triamterene/HCTZ 37.5/25 TABLET 1 TAB PO (08:26)
[2020-06-22] MEDS: Amoxicillin/Potassium Clav 875 MG TABLET PO (08:26)
[2020-06-22] MEDS: buPROPion HCl XL 150 MG TAB.ER.24H PO (08:26)
[2020-06-22] MEDS: Omeprazole 20 MG CAPSULE.DR PO (08:27)
[2020-06-22] MEDS: Buprenorphine/Naloxone 8/2 mg FILM 1 FILM BUCCAL (08:27)
[2020-06-22] MEDS: metFORMIN HCl 1,000 MG TABLET 1000 MG PO ×2 (08:27→16:50)
[2020-06-22] MEDS: Aspirin 81 MG TAB.CHEW PO (08:27)
[2020-06-22] MEDS: Finasteride 5 MG TABLET PO (08:28)
[2020-06-22] MEDS: glipiZIDE 10 MG TABLET PO (08:28)
--- NOTE | 2020-06-22 16:53 | PC.NURSE ---
PT HAS BEEN SLEEPING ON AND OFF THROUGHOUT THE DAY. SITTER REMAINS AT BEDSIDE. RESP EVEN, NONLABOURED. MEDICATED PER EMR. PT STATES ONGOING SI.
[2020-06-22] MEDS: traZODone HCL 100 MG TABLET PO (20:55)
[2020-06-22] MEDS: Tamsulosin HCL 0.4 MG CAPSULE PO (20:55)
[2020-06-22] MEDS: Insulin Glargine,Hum.rec.anlog 100 UNIT/ML 10 ML VIAL 70 UNIT SUBCUT (20:55)
[2020-06-22] MEDS: Atorvastatin Calcium 10 MG TABLET PO (20:56)
[2020-06-22] MEDS: OLANZapine 5 MG TABLET PO (20:56)
--- NOTE | 2020-06-22 20:56 | PC.NURSE ---
PT REFUSING THIS EVENINGS SUBOXONE, STATING HE FEELS NAUSEOUS. PROVIDER UPDATED
--- NOTE | 2020-06-22 22:18 | PC.NURSE ---
PT C/O PAIN ON URINATION. GIVEN CUP TO PROVIDE URINE SPECIMEN.
[2020-06-23] VITALS: RESP 16
[2020-06-23 00:17] LABS: Glucose Urine UA NEG (NEG); Leukocyte Esterase Urine 1+ (NEG); Nitrite Urine NEG (NEG); Specific Gravity - Urine >= 1.030 (1.005-1.025); UACC Culture Trigger YES; Urine Blood 2+ (NEG); Urine Ketones NEG (NEG); Urine Protein TRACE MG/DL (NEG-TRACE)
[2020-06-23 00:19] LABS: Appearance Urine CLOUDY; Color Urine DARK YELLOW
[2020-06-23 00:27] LABS: Bacteria Urine TRACE /LPF; Hyaline Casts Urine 0-2 /LPF; Mucus Urine 1+ /LPF; RBC Urine 30-49 /HPF (0); Squamous Epithelial Cell Urine 1+ /LPF; WBC Clumps Urine NOTED; WBC Urine 50-75 /HPF (0-4)
--- NOTE | 2020-06-23 02:06 | PC.NURSE ---
pt states he has pain in his groin. pt resting comfortably, awake, skin warm and dry.
[2020-06-23 05:57] VITALS: BP 104/65; PULSE 94; RESP 16; TEMP 36.3; O2SAT 96
--- NOTE | 2020-06-23 07:03 | PC.NURSE ---
report taken from yessy fragoso. pt remains +si/hi. sitter at bedside.
[2020-06-23 08:00] VITALS: BP 113/86; PULSE 82; O2SAT 98
--- NOTE | 2020-06-23 08:14 | PC.NURSE ---
PT NOW AT DAY 10 SINCE TESTING POSITIVE AND ISOLATING IN THE ED. HE REMAINS SYMPTOM FREE. RIA MILLS AWARE AND AWAITING MED CLEARANCE
[2020-06-23 08:23] LABS: Glucose, Whole Blood 154 mg/dL (60-115)
[2020-06-23] MEDS: Finasteride 5 MG TABLET PO (08:31)
[2020-06-23] MEDS: Omeprazole 20 MG CAPSULE.DR PO (08:31)
[2020-06-23] MEDS: Nicotine 21 MG PATCH.TD24 TRANSDERMA (08:31)
[2020-06-23] MEDS: Aspirin 81 MG TAB.CHEW PO (08:31)
[2020-06-23] MEDS: Gabapentin 300 MG CAPSULE PO ×3 (08:31→20:39)
[2020-06-23] MEDS: buPROPion HCl XL 150 MG TAB.ER.24H PO (08:31)
[2020-06-23] MEDS: metFORMIN HCl 1,000 MG TABLET 1000 MG PO (08:31)
[2020-06-23] MEDS: Triamterene/HCTZ 37.5/25 TABLET 1 TAB PO (08:31)
[2020-06-23 08:32] VITALS: BP 113/86; PULSE 82
[2020-06-23] MEDS: glipiZIDE 10 MG TABLET PO (08:32)
--- NOTE | 2020-06-23 09:23 | PC.NURSE ---
Report received. Pt brought to pod in wheelchair, pt ambulated with steady gait to the bathroom, asking when he can leave. Section 12 explained. PT in common area on the phone at this time.
--- NOTE | 2020-06-23 10:07 | PC.NURSE ---
KAY contacted to alert the bedsearch team that PT is medically cleared after testing covid positive. Leydi form bedsearch team requested documentation of the medical clearance. Information faxed as requested to Karyn.
--- NOTE | 2020-06-23 14:28 | PC.NURSE ---
Per provider, okay to discontinue CIWA and COWS
[2020-06-23 15:03] LABS: Glucose, Whole Blood 107 mg/dL (60-115)
[2020-06-23] MEDS: Ibuprofen 400 MG TABLET PO (15:03)
[2020-06-23 16:55] VITALS: BP 104/64; PULSE 88; RESP 16; TEMP 36.6; O2SAT 95
[2020-06-23 19:27] LABS: Glucose, Whole Blood 145 mg/dL (60-115)
--- NOTE | 2020-06-23 20:15 | PC.NURSE ---
confimed placement on m5. due to acutity on floor, gas charger will call this chief underwriter to give report. potential eta after 0.
[2020-06-23] MEDS: Atorvastatin Calcium 10 MG TABLET PO (20:38)
[2020-06-23] MEDS: Tamsulosin HCL 0.4 MG CAPSULE PO (20:38)
[2020-06-23] MEDS: traZODone HCL 100 MG TABLET PO (20:39)
[2020-06-23] MEDS: OLANZapine 5 MG TABLET PO (20:39)
[2020-06-23] MEDS: Buprenorphine/Naloxone 8/2 mg FILM 1 FILM BUCCAL (20:41)
[2020-06-23] MEDS: Insulin Glargine,Hum.rec.anlog 100 UNIT/ML 10 ML VIAL 70 UNIT SUBCUT (21:00)
--- NOTE | 2020-06-23 22:22 | PC.NURSE ---
report given to arsenio fragoso. no questions. awaiting admission orders now.
--- NOTE | 2020-06-23 22:54 | PC.NURSE ---
Careteam at bedside to bring patient up to m5. security enroute to assit.
[2020-06-23 23:09] VITALS: BP 117/72; PULSE 111; RESP 18; TEMP 36.2; O2SAT 97
[2020-06-24 04:35] VITALS: BP 134/76; PULSE 104; RESP 16; TEMP 36.2; O2SAT 97
[2020-06-24 04:40] VITALS: BMI 26.3
--- NOTE | 2020-06-24 05:11 | PC.ADMIT ---
Patient is a 45 y.o Divehi speaking male admitted to M5 from [facility] pod at around 2300 on 06/23/20 prior to the third shift started. Patient was brought to the ED on 06/13/20 to [facility] ED via ambulance from his outpatient therapist's office after patient made threats to harm himself and SI with plan to slit my wrists with a knife or jump off a bridge. Patient denied SI/ HI/AH/VH on admission and contracted for safely on admission done at around 0400 in on 06/24/20. However patient reports that SI brought him to the hospital. Patient also reports of past hx of suicide attempts in the past. Patient reports has hx of substance abuse and currently having legal issue with unknown court day related to drugs and being homeless at this present time.Patient goals/plans were to get better and able to get his housing back. Hx of multiple pyschiatric inpatient admissions and 7 times being admitted to detox facilities. Patient was tested + for opiates, phencyclidine, cocaine, ETOH, and MJ with daily IV drug use per patient on admission. Patient exhibits no Ss&Ss of w/d from opiates or ETOH. Medical hx: DM II, high cholesterol, HTN, Hep C, neuropathy/chronic pain. Psych hx :schizophrenia, DAVID, SUDs. Patient was calm, cooperative, and pleasant on admission. BP slightly elevated 134/76 and HR increase 104 , temp 97.2. Admission is completed, continue with regime transferred from the ED as patient has been admitted to the ED since 06/13/20. Covid 19 + which is past 10 days quarantine per CDC and [facility] ATTENDANT who admitted patient is aware.
[2020-06-24 06:39] LABS: Glucose, Whole Blood 166 mg/dL (60-115)
[2020-06-24 08:15] LABS: MANUAL DIFF FLAG NO
[2020-06-24 08:20] LABS: Basophils Percent Auto 0.3 % (0-2); Eosinophils Absolute Auto 0.1 X10*3/uL (0.0-0.4); Eosinophils Percent Auto 1.3 % (0-4); Hematocrit 46.9 % (42-52); Hemoglobin 16.3 g/dl (14.0-18.0); Imm Gran Abs Auto 0.04 X10*3/uL (0.00-0.03); Imm Gran Pct Auto 0.6 % (0.0-0.4); Lymphocytes Absolute Auto 2.2 X10*3/uL (1.2-4.9); Lymphocytes Percent Auto 32.5 % (20-40); Mean Corpuscular HGB Conc 34.8 g/dl (31.0-36.0); Mean Corpuscular Hemoglobin 28.7 pg (27.0-33.0); Mean Corpuscular Volume 82.7 fL (80-98); Mean Platelet Volume 9.7 fL (9.4-12.4); Monocytes Absolute Auto 0.7 X10*3/uL (0.1-1.2); Monocytes Percent Auto 10.8 % (2-11); Neutrophils Absolute Auto 3.6 X10*3/uL (2.0-8.3); Neutrophils Percent Auto 54.5 % (45-73); Platelet Count 338 X10*3/uL (160-400); Red Blood Count 5.67 X10*6/uL (4.60-5.80); Red Cell Distribution Width 12.7 % (11.0-16.0); White Blood Count 6.7 X10*3/uL (4.8-10.8)
[2020-06-24] MEDS: Gabapentin 300 MG CAPSULE PO ×2 (08:27→14:45)
[2020-06-24] MEDS: Nicotine 21 MG PATCH.TD24 TRANSDERMA (08:27)
[2020-06-24] MEDS: Aspirin 81 MG TAB.CHEW PO (08:27)
[2020-06-24] MEDS: metFORMIN HCl 1,000 MG TABLET 1000 MG PO ×2 (08:27→17:02)
[2020-06-24] MEDS: polyethylene glycoL 3350 17 GM POWD.PACK PO (08:27)
[2020-06-24 08:28] LABS: Estimated Average Glucose 177 mg/dL; Hemoglobin A1c % 7.8 %
[2020-06-24] MEDS: glipiZIDE 10 MG TABLET PO (08:28)
[2020-06-24] MEDS: Omeprazole 20 MG CAPSULE.DR PO (08:28)
[2020-06-24] MEDS: Triamterene/HCTZ 37.5/25 TABLET 1 TAB PO (08:28)
[2020-06-24] MEDS: Finasteride 5 MG TABLET PO (08:28)
[2020-06-24] MEDS: buPROPion HCl XL 150 MG TAB.ER.24H PO (08:28)
[2020-06-24 08:32] VITALS: BP 119/73; PULSE 87
[2020-06-24 08:42] LABS: Alanine Aminotransferase 44 U/L (0-40); Albumin Level 4.5 g/dL (3.5-5.0); Alkaline Phosphatase 100 U/L (39-117); Aspartate Amino Transferase 38 U/L (5-37); Bilirubin Direct 0.4 mg/dL (0.0-0.5); Bilirubin Total 0.9 mg/dL (0.0-1.0); Cholesterol 137 mg/dL; HDL Cholesterol 42 mg/dL; LDL Cholesterol Calculated 77 mg/dl; Total Protein 7.9 g/dL (6.5-8.0); Triglycerides 91 mg/dL
[2020-06-24] MEDS: Buprenorphine/Naloxone 8/2 mg FILM 1 FILM BUCCAL (09:01)
[2020-06-24 09:02] LABS: Thyroid Stimulating Hormone 2.75 uIU/mL (0.32-4.0)
[2020-06-24 09:08] LABS: Vitamin B12 484 pg/mL (200-900)
[2020-06-24] MEDS: hydrOXYzine HCL 50 MG TABLET PO (10:06)
[2020-06-24 14:22] LABS: Anion Gap 16 (12-20); Blood Urea Nitrogen 15 mg/dL (9-16); Calcium 9.3 mg/dL (8.4-10.2); Carbon Dioxide 30 mmol/L (22-29); Chloride 80 mmol/L (96-108); Creatinine Clr Calc Pharmacy 137.5; Estimated Glomerular Filt Rate > 60; Glucose Random 124 mg/dL (60-115); Potassium 4.2 mmol/L (3.3-5.1); Sodium 122 mmol/L (135-145)
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
[2020-06-24 15:07] LABS: Uric Acid 4.3 mg/dL (3.4-7.0)
[2020-06-24 15:16] LABS: Anion Gap 15 (12-20); Blood Urea Nitrogen 19 mg/dL (9-16); Calcium 9.2 mg/dL (8.4-10.2); Carbon Dioxide 30 mmol/L (22-29); Chloride 79 mmol/L (96-108); Creatinine Clr Calc Pharmacy 118.8; Estimated Glomerular Filt Rate > 60; Glucose Random 176 mg/dL (60-115); Potassium 4.7 mmol/L (3.3-5.1); Sodium 119 mmol/L (135-145)
[2020-06-24 15:54] LABS: Glucose Urine UA NEG (NEG); Leukocyte Esterase Urine 2+ (NEG); Nitrite Urine NEG (NEG); PH 5.5 (5.0-8.0); Urine Blood 1+ (NEG); Urine Ketones NEG (NEG); Urine Protein TRACE MG/DL (NEG-TRACE)
[2020-06-24 15:58] LABS: Osmolality, Serum 256 mosm/kg (281-305)
[2020-06-24 16:00] LABS: Appearance Urine CLOUDY; Color Urine YELLOW
[2020-06-24 16:05] LABS: Osmolality Urine 413 mosm/kg (373-1093)
[2020-06-24 16:18] LABS: Amorphous Sediment Urine 1+ /LPF; Bacteria Urine 1+ /LPF; Squamous Epithelial Cell Urine TRACE /LPF; WBC Urine 30-49 /HPF (0-4)
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
--- NOTE | 2020-07-14 15:44 | PM.PSYDC ---
DS: Providers Provider Date of Service: 06/23/20 Date of admission: 06/23/20 22:22 Date of discharge: 06/23/20 Primary care physician: Pato Shaikh MD Admitting clinician: Jenn Berry Attending physician on admission: Jonathan Mitchell Consults: 06/24/20 11:44 Consult to Hospitalist Routine Consulting Provider: Hospitalist Reason For Exam: Unable to urinate, groin pain, testicle pain 06/24/20 14:42 Consult to Nephrology Routine Consulting Provider: Vicente Duff Reason for consultation: hyponatremia Attending physician on discharge: Jonathan Mitchell Discharging clinician: Jenn Berry DS: Diagnosis Discharge Diagnosis (1) Schizophrenia: Status: Deleted Problem details: 45 yo male, to ER 06/13/20 with SI. Pt was attending [employer] with [employer], had a knife and made threats to kill himself. Reported perceptual alterations, auditory and visual along with depressive sx. Pt at that time was found to be COVID + and remained in the ER until 06/23, when he was transferred to for psychiatric treatment after being found to be COVID -. (2) Opioid use disorder: Status: Inactive Problem details: Heroin-uses a few bags every other day, IV (3) Stimulant use disorder: Status: Inactive Problem details: Cocaine-reported daily use [employer] 06/13. Pt smokes and uses IV (4) Alcohol use disorder, severe, dependence: Problem details: Reports 5 24 oz beers daily or a few nips daily (5) Urinary hesitancy: Status: Acute (6) Hyponatremia: Status: Resolved DS: Medications Discharge Medications Home Medications: Home Medications Medication Instructions Recorded Confirmed albuterol sulfate 2 puff INHALATION Q4-6H PRN 06/13/20 07/09/20 buprenorphine-naloxone [Suboxone] 1 film BUCCAL BID 06/13/20 07/09/20 glipizide 10 mg PO DAILY 06/13/20 07/09/20 omeprazole 20 mg PO DAILY 06/13/20 07/09/20 Lantus U-100 Insulin 70 unit SUBCUT BEDTIME 07/03/20 07/09/20 clonidine HCl 0.1 mg PO BEDTIME PRN 07/03/20 07/09/20 lisinopril 20 mg PO DAILY 07/03/20 07/09/20 tizanidine 4 mg PO BID 07/03/20 07/09/20 atorvastatin 20 mg PO DAILY 07/04/20 07/09/20 Previous Rx's Medication Instructions Recorded bupropion HCl [Wellbutrin XL] 150 mg PO DAILY #7 tab 06/27/20 bisacodyl 5 mg PO BID PRN 30 Days tab 07/09/20 buprenorphine 8 mg-naloxone 2 mg 2 film SUBLINGUAL DAILY 7 Days #14 07/09/20 sublingual film ea docusate sodium 100 mg PO BID PRN 30 Days #60 cap 07/09/20 finasteride [Proscar] 5 mg PO DAILY 30 Days #30 tab 07/09/20 gabapentin 600 mg PO TID 30 Days #180 cap 07/09/20 metformin 1,000 mg PO BIDWM 30 Days #60 tab 07/09/20 nicotine 21 mg TRANSDERMAL DAILY 30 Days 07/09/20 #30 ea olanzapine 10 mg PO BEDTIME 30 Days #30 tab 07/09/20 tamsulosin 0.4 mg PO BEDTIME 30 Days #30 cap 07/09/20 trazodone 100 mg PO BEDTIME 30 Days #30 tab 07/09/20 Discharge Plan Discharge Anticipated Discharge Date/Time: 06/24/20 17:53 Patient Disposition: Xfer Other Referrals: Pato Gastelum MD [Primary Care Provider] - Discharge Medications: Continued glipizide 10 mg Tablet 10 mg PO DAILY RF: 0 omeprazole 20 mg Capsule,Delayed Release(Dr/Ec) 20 mg PO DAILY RF: 0 albuterol sulfate 90 mcg/actuation Hfa Aerosol Inhaler 2 puff INHALATION Q4-6H PRN (Reason: Shortness Of Breath) RF: 0 buprenorphine-naloxone [Suboxone] 8-2 mg Film 1 film BUCCAL BID RF: 0 No Action clonidine HCl 0.1 mg Tablet 0.1 mg PO BEDTIME PRN (Reason: Insomnia) RF: 0 lisinopril 20 mg Tablet 20 mg PO DAILY RF: 0 tizanidine 4 mg Capsule 4 mg PO BID RF: 0 Lantus U-100 Insulin 100 unit/mL solution 70 unit subcut BEDTIME RF: 0 atorvastatin 20 mg tablet 20 mg PO DAILY RF: 0 olanzapine 10 mg Tablet 10 mg PO BEDTIME 30 Days Qty: 30 RF: 0 tamsulosin 0.4 mg Capsule 0.4 mg PO BEDTIME 30 Days Qty: 30 RF: 0 trazodone 100 mg Tablet 100 mg PO BEDTIME 30 Days Qty: 30 RF: 0 metformin 1,000 mg Tablet 1,000 mg PO BIDWM 30 Days Qty: 60 RF: 0 nicotine 21 mg/24 hr Patch 24 Hour 21 mg transdermal DAILY 30 Days Qty: 30 RF: 0 docusate sodium 100 mg Capsule 100 mg PO BID PRN (Reason: Constipation) 30 Days Qty: 60 RF: 0 gabapentin 300 mg Capsule 600 mg PO TID 30 Days Qty: 180 RF: 0 bisacodyl 5 mg Tablet,Delayed Release (Dr/Ec) 5 mg PO BID PRN (Reason: Constipation) 30 Days RF: 0 finasteride [Proscar] 5 mg Tablet 5 mg PO DAILY 30 Days Qty: 30 RF: 0 bupropion HCl [Wellbutrin XL] 150 mg Tablet Extended Release 24 Hr 150 mg PO DAILY Qty: 7 RF: 0 buprenorphine-naloxone [Suboxone] 8-2 mg film 2 film sublingual DAILY 7 Days Qty: 14 RF: 0 Discharge Orders: Discharge Order (Routine); Ordered 06/24/20 Ordered By: Jenn Berry Care Plan Goals: Re-establish sodium Evaluate urinary hesitancy Health Concerns: Hyponatremia Urinary hesitancy Depression with psychotic features Polysubstance Abuse/Dependence Plan of Treatment: Transfer to C Discharge Date/Time: 06/24/20 17:54 Mental Status Exam Mental Status Exam Patient Appearance: Fatigued Patient Orientation: Person, Place, Time and Situation Level of Consciousness: Awake and Alert Patient Behavior: Appropriate, Talkative and Cooperative Mood Description: Withdrawn, Appropriate, Depressed and Anxious Affect Description: Flat Patient Cognition Impaired: No Ability to Follow Directions: Good Speech Pattern: Spontaneous Speech Memory Description: Episodic Impaired Hallucinations: Auditory and Visual Delusions: Not Present Thought Process: Intact and Rumination Thought Content: positive for Fallon and positive for Circumstantial Depressive Symptoms: Increased Anxiety, Insomnia, Diff. Making Decisions, Increased Irritability, Difficulty Sleeping, Changes in Appetite, Muscle Pain, Loss of Int. in Activity, Feelings of Worthlessness, Hopelessness, Isolating-Friends/Family, Feelings of Guilt, Unhappiness, Increased Fatigue, Thoughts of /Suicide, Low Self Esteem, Loss of Energy and Difficulty Concentrating Judgement: Fair Data Data Completed and Pending Completed studies during hospitalization [Text1]: 06/24/20 12:48 Urine clean catch - Clean Catch Midstream Urine Culture - Final 06/23/20 00:00 Urine clean catch - Clean Catch Midstream Urine Culture - Final 06/15/20 15:38 Blood - Venous Blood Culture - Final No growth after 5 days. 06/15/20 15:27 Blood - Venous Blood Culture - Final No growth after 5 days. 06/14/20 20:30 Blood - Venous Blood Culture - Final No growth after 5 days. 06/14/20 20:30 Blood - Venous Blood Culture - Final No growth after 5 days. Imaging Diagnostic Imaging Impressions Chest X-Ray 06/14/20 17:26 IMPRESSION: Hypoinflation with a small opacity at the left lateral costophrenic sulcus. No pneumothorax or edema Venous Duplex 06/15/20 15:48 IMPRESSION: There are 2 thrombosed superficial veins in the distal aspect of the right upper extremity. These are distal to the elbow and extending to the wrist and are likely acute. This critical result was discussed with TOO Carmen at 1845 on 06/15/20 and it was ascertained that the content and urgency of the report was understood at the time of direct communication. DS: Summary Hospital Course Hospital Course: Pt was found to be hyponatremic with urinary hesitancy. He had hospitalist consultation, repeat diagnostics, and was [place] [facility] [place] of [place]on[place] Time spent discussing smoking cessation with patient: 3 to 10 minutes Status at Discharge Cognitive/behavioral status at discharge: Alert, oriented, depressed with ongoing SI, reports voices/visions have decreased. Discussed pt having a 1:1 while on the medical floor as we were just getting to know him in the milieu. Functional status at discharge: wheelchair bound Overall status at discharge: patient is not back to baseline Time Spent with Patient Time attestation: Total time spent providing and/or coordinating discharge services:60 Time spent: Greater than 30 minutes Specific discharge activities: medical transfer, discharge for re-admission.
== END 2020-06-24 17:54 | disposition home or self-care (01) | DRG 750 ==
LOC: HO.ED 06-23 09:24 → HO.PM5 06-23 22:28
PROVIDERS: Family Medicine; Nurse Practitioner Primary Care; Physician Assistant; Physician Assistant Medical; Social Worker; Admitting Provider Psychiatry & Neurology Psychiatry; Emergency Provider Internal Medicine; PCP Internal Medicine; Visit Provider Clinical Nurse Specialist Psychiatric/Mental Health, Adult
DX: F20.9 Schizophrenia, unspecified (principal); U07.1 COVID-19; R45.851 Suicidal ideations; K21.9 Gastro-esophageal reflux disease without esophagitis; E11.9 Type 2 diabetes mellitus without complications; Z59.0 Homelessness; F17.210 Nicotine dependence, cigarettes, uncomplicated; Z71.6 Tobacco abuse counseling; E87.1 Hypo-osmolality and hyponatremia; R39.11 Hesitancy of micturition; F11.99 Opioid use, unspecified with unspecified opioid-induced disorder; F10.20 Alcohol dependence, uncomplicated; Z79.4 Long term (current) use of insulin; Z79.899 Other long term (current) drug therapy
CPT/HCPCS: 36415; 71045; 80048; 80053; 80061; 80076; 80178; 80307; 80320; 81001; 81003; 82607; 82947; 83036; 83605; 83735; 83930; 83935; 84300; 84443; 84550; 85025; 85610; 87040; 87086; 87635; 93005; 93971; 99284; 99285; Q0163

== ENCOUNTER 2020-06-24 15:52 | Inpatient (IN) | payer MEDICAID, SELFPAY ==
--- NOTE | ~2020-06-24 | US_ITS ---
EXAMINATION: US SCROTUM CLINICAL INFORMATION: Scrotal pain.. COMPARISON: None TECHNIQUE: A sonogram of the scrotum was performed assessing wheeler-scale appearance and color Doppler flow. Spectral Doppler analysis of the arterial and venous flow were performed in the testes bilaterally. FINDINGS: RIGHT: Right testicle measures 3.7 x 1.8 x 3.3 cm, volume 12 mL. There is a small mildly complex cyst in the upper pole of the right testicle measuring 0.6 x 0.3 x 0.3 cm at the subcapsular region Spectral Doppler analysis of the arterial and venous flow is normal in the right testis. Right epididymal head is normal in size. No right hydrocele or varicocele is seen. Right epididymal Doppler flow is normal. LEFT: Left testicle measures 3.9 x 1.9 x 3 cm, volume 12 mL. No suspicious lesions. Spectral Doppler analysis of the arterial and venous flow is normal in the left testis. Left epididymal head is normal in size. There is a 0.4 x 0.2 x 0.6 cm cyst in the head of the left epididymis. No left hydrocele or varicocele is seen. Left epididymal Doppler flow is normal.. US/US scrotum IMPRESSION: No acute abnormality of scrotum. Normal ultrasound of the right and left testicle.
--- NOTE | 2020-06-24 15:53 | P.HPHOSP_ITS ---
History of Present Illness Date of Service: 06/24/20 Chief Complaint: hyponatremia This is a 45 yo M with multiple medical issues including DM, GERD, HTN, Cocaine induced [place] who was admitted to the psychiatric floor. Per ED documentation the patient completed a 10 day ED stay after he was tested + for COVID and remained asymptomatic. The morning after admission to the psych floor, the patient reported difficulty and painful urination along with testicular pain and so medical consult was placed. As part of his work up for his dysuria, a chemistry was checked which showed moderate hyponatremia (122 -- added to his AM labs) which was confirmed with a repeat STAT BMP showing a SNa of 119. Although the patient remained completely asymptomatic from the perspective of hypoNa, given his complex medical history + on going psychiatric illness, after discussion with the nephrology team, decision was made to transfer the patient to the medical floor. Review of Systems Review of Systems: General - denies fevers or chills, denies weakness or fatigue HEENT -denies blurred vision, denies headache, denies sore throat Cardiovascular - denies chest pain or palpitations, denies edema Respiratory - denies shortness of breath, coughing, wheezing Gastrointestinal - denies abdominal pain, nausea, vomiting, diarrhea - denies flank pain, denies dysuria, denies frequency or urgency Musculoskeletal - denies back pain, denies hip pain, denies knee pain, denies shoulder pain Neurological - denies any focal weakness or numbness Skin, denies any bruising or redness Psychiatric - +SI Endocrinology - denies intolerance to hot / cold temperatures [facility] Medical History (Updated 06/24/20 @ 15:57 by Wilton Brown MD) Chronic pain DM II (diabetes mellitus, type II), controlled High cholesterol HTN (hypertension) Neuropathy Social History Household Members: None Housing: Homeless Alcohol intake: current Smoking Status: Current every day smoker Tobacco Type: Cigarette Cigarettes Per Day: 0.5 Second Hand Smoke Exposure: Yes Substance Use Type: Crack/Cocaine, Heroin, Inhalants, IV Drugs, Marijuana, Methamphetamine, Opiates, Prescription Drugs and Sedatives Advance Directives: No Advance Directives Information Provided: No service: No Sexual orientation: Straight/Heterosexual Meds Allergies Allergy/AdvReac Type Severity Reaction Status Date / Time buprenorphine [From Subutex] Allergy Angioedema Verified 06/13/20 17:10 Home Medications Medication Instructions Recorded Confirmed Last Taken Type albuterol sulfate 2 puff INHALATION Q4-6H PRN 06/13/20 06/13/20 Unknown History benztropine 1 mg PO BID 06/13/20 06/13/20 Unknown History bisacodyl 10 mg PO DAILY PRN 06/13/20 06/13/20 Unknown History buprenorphine-naloxone [Suboxone] 1 film BUCCAL BID 06/13/20 06/13/20 Unknown History bupropion HCl [Wellbutrin XL] 150 mg PO DAILY 06/13/20 06/13/20 Unknown History clonidine HCl 0.2 mg PO DAILY 06/13/20 06/13/20 Unknown History diphenhydramine HCl [Benadryl] 50 mg PO BEDTIME 06/13/20 06/13/20 Unknown History docusate sodium [Colace] 100 mg PO BID PRN 06/13/20 06/13/20 Unknown History duloxetine 60 mg PO DAILY 06/13/20 06/13/20 Unknown History finasteride 5 mg PO DAILY 06/13/20 06/13/20 Unknown History gabapentin 600 mg PO BID 06/13/20 06/13/20 Unknown History glipizide 10 mg PO DAILY 06/13/20 06/13/20 Unknown History hydroxyzine pamoate 50 mg PO TID PRN 06/13/20 06/13/20 Unknown History ibuprofen 400 mg PO Q12H PRN 06/13/20 06/13/20 Unknown History insulin glargine [Lantus U-100 70 unit SUBCUT BEDTIME 06/13/20 06/13/20 Unknown History Insulin] lisinopril 20 mg PO DAILY 06/13/20 06/13/20 Unknown History lithium carbonate 450 mg PO BID 06/13/20 06/13/20 Unknown History metformin 1,000 mg PO BIDWM 06/13/20 06/13/20 Unknown History mirtazapine 15 mg PO BEDTIME 06/13/20 06/13/20 Unknown History naloxone [Narcan] 4 mg INTRANASAL Q2M PRN 06/13/20 06/13/20 Unknown History nicotine (polacrilex) 2 mg BUCCAL Q2H PRN 06/13/20 06/13/20 Unknown History nicotine [Nicoderm CQ] 1 patch TRANSDERMAL DAILY 06/13/20 06/13/20 Unknown History omeprazole 20 mg PO DAILY 06/13/20 06/13/20 Unknown History perphenazine 16 mg PO BID 06/13/20 06/13/20 Unknown History polyethylene glycol 3350 [Miralax] 17 g PO DAILY 06/13/20 06/13/20 Unknown History quetiapine [Seroquel] 600 mg PO DAILY 06/13/20 06/13/20 Unknown History simvastatin 20 mg PO BEDTIME 06/13/20 06/13/20 Unknown History tamsulosin [Flomax] 0.4 mg PO BEDTIME 06/13/20 06/13/20 Unknown History tizanidine [Zanaflex] 4 mg PO BID 06/13/20 06/13/20 Unknown History topiramate 50 mg PO BEDTIME 06/13/20 06/13/20 Unknown History trazodone 100 mg PO BEDTIME 06/13/20 06/13/20 Unknown History triamterene-hydrochlorothiazid 1 tab PO DAILY 06/13/20 06/13/20 Unknown History venlafaxine [Effexor XR] 150 mg PO DAILY 06/13/20 06/13/20 Unknown History Physical Exam Vital Signs and Narrative: Vital Signs: Last documented vitals on the psych floor BP 119/73 - HR 87 - RR 16 - temp 97.2 - saturation 97% on RA Const: Other: Constitutional - Awake and Alert, No apparent distress Eyes - PERRLA, EOMI Cardiovascular - S1S2, RRR, No edema Respiratory - Normal lung expansion, Normal respiratory effort, No respiratory distress, CTA bilaterally Gastrointestinal - NT / ND; +BS; No rebound or guarding - No CVA tenderness; no testicular tenderness appreciated; no swelling Extremities - no calf tenderness bilaterally, no swelling Musculoskeletal - Normal inspection, normal ROM Skin - Warm/Dry Neurological - Alert & oriented x3, No focal deficit Results Labs Labs: WBC 6.7 Hemoglobin 16.3 Hematocrit 46.9 Platelets 338 Sodium 119 Potassium 4.7 Chloride 79 Bicarb 30 BUN 19 Creatinine 0.88 AST 38 ALT 44 Assessment and Plan (1) Hyponatremia: Status: Acute This is a 45 yo M admitted on inpatient psych floor for SI and now being transferred to [facility] for hyponatremia. 1. Hyponatremia, severe but without any symptoms at this time SNa 119 work up in progress monitor I/O fluid restrict 1L urine studies TSH wnl nephrology consult - Dr. Duff informed BMP q6 hours, next around 7pm hold diuretics 2. Depression with SI 1:1 obs continue his psych meds 3. DM diabetic diet hold oral meds sliding scale 4. HTN hold meds tonight, observe 5. BPH, testicular pain continue flomax / proscar f/u u c&s may need imaging / urological eval if symptoms persist Full Code DVT ppx, Heparin
[2020-06-24 18:18] VITALS: BP 132/80; PULSE 104; RESP 18; TEMP 36.3; O2SAT 100
[2020-06-24 19:14] VITALS: BMI 27.1
[2020-06-24 19:19] LABS: Anion Gap 18 (12-20); Blood Urea Nitrogen 19 mg/dL (9-16); Calcium 9.2 mg/dL (8.4-10.2); Carbon Dioxide 27 mmol/L (22-29); Chloride 77 mmol/L (96-108); Creatinine Clr Calc Pharmacy 112.4; Estimated Glomerular Filt Rate > 60; Glucose Random 310 mg/dL (60-115); Potassium 4.8 mmol/L (3.3-5.1); Sodium 117 mmol/L (135-145)
--- NOTE | 2020-06-24 19:33 | PC.NURSE ---
notified of BMP results via [employer].
[2020-06-24 19:56] VITALS: BP 132/83; PULSE 106; RESP 18; TEMP 36.9; O2SAT 99
[2020-06-24 20:04] LABS: Glucose, Whole Blood 234 mg/dL (60-115)
[2020-06-24] MEDS: Insulin Lispro 100 UNIT/ML 3 ML VIAL SUBCUT (20:58)
[2020-06-24] MEDS: 0.9 % Sodium Chloride 1,000 ML 100 ML IVCONT (20:58)
[2020-06-24] MEDS: Gabapentin 300 MG CAPSULE PO (20:59)
[2020-06-24] MEDS: Tamsulosin HCL 0.4 MG CAPSULE PO (20:59)
[2020-06-24] MEDS: Heparin Sodium,Porcine 5,000 UNIT/ML VIAL 5000 UNIT SUBCUT (20:59)
[2020-06-24] MEDS: Buprenorphine/Naloxone 8/2 mg FILM 1 FILM BUCCAL (20:59)
[2020-06-24] MEDS: Insulin Glargine,Hum.rec.anlog 100 UNIT/ML 10 ML VIAL 50 UNIT SUBCUT (20:59)
[2020-06-24 23:01] LABS: Anion Gap 17 (12-20); Blood Urea Nitrogen 16 mg/dL (9-16); Carbon Dioxide 25 mmol/L (22-29); Chloride 80 mmol/L (96-108); Creatinine Clr Calc Pharmacy 132.3; Estimated Glomerular Filt Rate > 60; Glucose Random 225 mg/dL (60-115); Sodium 118 mmol/L (135-145)
--- NOTE | 2020-06-24 23:01 | PM.EVENT ---
Event Note Date of Service: 06/24/20 Event Note: Hyponatremia: Patient presented with hyponatremia of 119; Follow-up sodium levels were 117; patient was asymptomatic. Spoke to Dr. Coleman from Nephrology-recommended to start the patient on normal saline at 100 cc/hour and to repeat the sodium levels in few hours. Will continue to monitor. Seizure precautions.
[2020-06-24 23:14] VITALS: BP 122/73; PULSE 95; RESP 20; TEMP 36.7; O2SAT 96
[2020-06-25] MEDS: Melatonin 3 MG TABLET 6 MG PO (01:18)
[2020-06-25 01:23] LABS: Anion Gap 14 (12-20); Blood Urea Nitrogen 15 mg/dL (9-16); Calcium 8.6 mg/dL (8.4-10.2); Carbon Dioxide 29 mmol/L (22-29); Chloride 80 mmol/L (96-108); Creatinine Clr Calc Pharmacy 145.2; Estimated Glomerular Filt Rate > 60; Glucose Random 164 mg/dL (60-115); Potassium 3.6 mmol/L (3.3-5.1); Sodium 119 mmol/L (135-145)
[2020-06-25] MEDS: LORazepam 1 MG TABLET PO (01:34)
[2020-06-25 06:13] LABS: Hemoglobin 15.2 g/dl (14.0-18.0); Mean Corpuscular HGB Conc 35.3 g/dl (31.0-36.0); Mean Corpuscular Hemoglobin 29.1 pg (27.0-33.0); Mean Corpuscular Volume 82.4 fL (80-98); Mean Platelet Volume 9.7 fL (9.4-12.4); Platelet Count 303 X10*3/uL (160-400); Red Blood Count 5.22 X10*6/uL (4.60-5.80); Red Cell Distribution Width 12.8 % (11.0-16.0); White Blood Count 7.5 X10*3/uL (4.8-10.8)
[2020-06-25] MEDS: Omeprazole 20 MG CAPSULE.DR PO (06:38)
[2020-06-25] MEDS: 0.9 % Sodium Chloride 1,000 ML 75 ML IVCONT ×2 (06:41→20:24)
[2020-06-25 06:51] LABS: Anion Gap 13 (12-20); Blood Urea Nitrogen 13 mg/dL (9-16); Calcium 9.1 mg/dL (8.4-10.2); Carbon Dioxide 33 mmol/L (22-29); Chloride 81 mmol/L (96-108); Creatinine Clr Calc Pharmacy 151.5; Estimated Glomerular Filt Rate > 60; Glucose Random 77 mg/dL (60-115); Potassium 4.5 mmol/L (3.3-5.1); Sodium 122 mmol/L (135-145)
[2020-06-25 07:15] VITALS: BP 111/66; PULSE 75; RESP 18; TEMP 36.6; O2SAT 97
[2020-06-25 07:19] LABS: Glucose, Whole Blood 118 mg/dL (60-115)
[2020-06-25] MEDS: Nicotine 21 MG PATCH.TD24 TRANSDERMA (09:17)
[2020-06-25] MEDS: Finasteride 5 MG TABLET PO (09:17)
[2020-06-25] MEDS: Buprenorphine/Naloxone 8/2 mg FILM 1 FILM BUCCAL (09:17)
[2020-06-25] MEDS: Gabapentin 300 MG CAPSULE PO ×3 (09:19→20:09)
[2020-06-25] MEDS: Heparin Sodium,Porcine 5,000 UNIT/ML VIAL 5000 UNIT SUBCUT ×2 (09:20→20:09)
[2020-06-25] MEDS: 0.9 % Sodium Chloride Flush 3 ML SYRINGE IVFLUSH ×2 (09:27→16:36)
[2020-06-25 11:10] LABS: Glucose, Whole Blood 152 mg/dL (60-115)
--- NOTE | 2020-06-25 11:14 | MHC.CM.PN ---
per rounds pt to return to [facility] when medic ally stable
[2020-06-25 11:39] VITALS: BP 120/74; PULSE 96; RESP 17; TEMP 36.1; O2SAT 97
[2020-06-25 11:40] LABS: Anion Gap 12 (12-20); Blood Urea Nitrogen 14 mg/dL (9-16); Calcium 8.4 mg/dL (8.4-10.2); Carbon Dioxide 31 mmol/L (22-29); Chloride 84 mmol/L (96-108); Creatinine Clr Calc Pharmacy 139.3; Estimated Glomerular Filt Rate > 60; Glucose Random 138 mg/dL (60-115); Sodium 123 mmol/L (135-145)
[2020-06-25] MEDS: Insulin Lispro 100 UNIT/ML 3 ML VIAL SUBCUT (11:54)
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
--- NOTE | 2020-06-25 14:33 | HO.PM.IMPN ---
Subjective Subjective Date of Service: 06/25/20 Interval History: Follow up hyponatremia. Feeling better today, sleeping Physical Exam Vital Signs: Vital Signs: Last Vital Signs Temp 97 F 06/25/20 11:39 Pulse 96 06/25/20 11:39 Resp 17 06/25/20 11:39 BP 120/74 06/25/20 11:39 Pulse Ox 97 06/25/20 11:39 Body Mass Index 27.1 Appearing in no acute distress lung sounds normal expansion heart regular rate rhythm, clear S1, S2 positive bowel sounds, abdomen is soft, nontender neuro patient is alert x3, no focal deficits Objective Data Current Medications Generic Name Dose Route Start Last Admin Trade Name Wan PRN Reason Stop Dose Admin Buprenorphine/Naloxone 1 film 06/24/20 21:00 06/25/20 09:17 Buprenorphine/Naloxone 8/2 Mg Film BUCCAL 1 film BID SHABBIR Administration Finasteride 5 mg 06/25/20 09:00 06/25/20 09:17 Finasteride 5 Mg Tablet PO 5 mg DAILY SHABBIR Administration Gabapentin 300 mg 06/24/20 21:00 06/25/20 09:19 Gabapentin 300 Mg Capsule PO 300 mg TID SHABBIR Administration Heparin Sodium (Porcine) 5,000 unit 06/24/20 20:00 06/25/20 09:20 Heparin Sodium,Porcine 5,000 Unit/Ml Vial SUBCUT 5,000 unit Q12H SHABBIR Administration Sodium Chloride 1,000 mls @ 75 mls/hr 06/24/20 20:15 06/25/20 06:41 Ns IVCONT 75 mls/hr .[id number] SHABBIR Administration Insulin Glargine 50 unit 06/24/20 21:00 06/24/20 20:59 Insulin Glargine,Hum.Rec.Anlog 100 Unit/Ml 10 Ml Vial SUBCUT 50 unit BEDTIME SHABBIR Administration Insulin Human Lispro 0 unit 06/24/20 18:05 06/25/20 11:54 Insulin Lispro 100 Unit/Ml 3 Ml Vial SUBCUT 2 unit QIDACHS [facility] Administration Protocol Nicotine 21 mg 06/25/20 09:00 06/25/20 09:17 Nicotine 21 Mg Patch.Td24 TRANSDERMA 21 mg DAILY SHABBIR Administration Omeprazole 20 mg 06/25/20 06:30 06/25/20 06:38 Omeprazole 20 Mg Capsule. PO 20 mg DAILY@0630 SHABBIR Administration Pharmacy Consult 1 each 06/24/20 18:05 Consult Rx Perform Med Rec MISCELLANE ONCE PRN Consult order Pharmacy Consult 1 each 06/25/20 07:57 Consult Rx Perform Med Rec MISCELLANE ONCE PRN Consult order Sodium Chloride 3 ml 06/24/20 18:05 06/25/20 09:27 0.9 % Sodium Chloride Flush 3 Ml Syringe IVFLUSH 3 ml QSHIFT SHABBIR Administration Tamsulosin HCl 0.4 mg 06/24/20 21:00 06/24/20 20:59 Tamsulosin Hcl 0.4 Mg Capsule PO 0.4 mg BEDTIME SHABBIR Administration Labs CBC & Chem 7: 06/25/20 05:53 06/25/20 11:09 Assessment and Plan (1) Hyponatremia: Status: Acute Assessment and Plan: 45 year old man transferred from due to painful urination and testicular pain. As part of work up chemistry was drawn and showed sodium of 122 with repeat of 119. Patient was asymtomatic This is a 45 yo M with multiple medical issues including DM, GERD, HTN, Cocaine induced [place] who was admitted to the psychiatric floor. Per ED documentation the patient completed a 10 day ED stay after he was tested + for COVID and remained asymptomatic. Hyponatremia. Likely secondary to thiazide diuretic and psychogenic polydipsia -Stop diuretic -BMPQ4h -avoid fast overcorrection -NS@100 -Nephrology following. psychiatric disorder. Continues with a sitter. -continue medications. -transfer to after patient is medically stable. Diabetes. -sliding scale, lantus Attending: Dr. Brown
[2020-06-25 15:00] VITALS: BP 111/66; PULSE 94; RESP 20; TEMP 36.4; O2SAT 97
[2020-06-25 16:07] LABS: Anion Gap 12 (12-20); Blood Urea Nitrogen 14 mg/dL (9-16); Calcium 8.7 mg/dL (8.4-10.2); Carbon Dioxide 31 mmol/L (22-29); Chloride 84 mmol/L (96-108); Estimated Glomerular Filt Rate > 60; Glucose Random 124 mg/dL (60-115); Potassium 4.5 mmol/L (3.3-5.1); Sodium 122 mmol/L (135-145)
[2020-06-25 16:18] LABS: Glucose, Whole Blood 135 mg/dL (60-115)
[2020-06-25] MEDS: LORazepam 0.5 MG TABLET PO (17:42)
--- NOTE | 2020-06-25 17:51 | P.CONNP_ITS ---
History of Present Illness Reason for Consult Consult date: 06/25/20 Reason for consult: hyponatremia Chief Complaint Chief complaint: hyponatremia History of Present Illness Narrative: asked toseept for hypona with sna as low as 117 hewas in ER withCOVIboarding for 10 days and then adm to [facility] and c/o urnary symptoms and labs done revealed SNa 122 wihch decr to 117. He is on hctz and adm to drinking alot of fluids while in er boarding. heis now on po fluid restirction and iv ns and sna incr [id number] to 122 this am SNA was 135 (06/18/20) PMH signif DM, GERD, HTN, Cocaine induced [place] who was admitted to the psychiatric floor. Review of Systems Review of Systems General - denies fevers or chills, denies weakness or fatigue HEENT -denies blurred vision, denies headache, denies sore throat Cardiovascular - denies chest pain or palpitations, denies edema Respiratory - denies shortness of breath, coughing, wheezing Gastrointestinal - denies abdominal pain, nausea, vomiting, diarrhea - denies flank pain, denies dysuria, denies frequency or urgency Musculoskeletal - denies back pain, denies hip pain, denies knee pain, denies shoulder pain Neurological - denies any focal weakness or numbness Skin, denies any bruising or redness Psychiatric - +SI Endocrinology - denies intolerance to hot / cold temperatures Psychiatric: Reports no additional psychiatric complaints and Reports suicidal ideation (denies SI, plan or intent) [facility] Past Medical History Medical History Alcohol use disorder, severe, dependence Chronic pain Diverticulitis DM II (diabetes mellitus, type II), controlled High cholesterol HTN (hypertension) Neuropathy Stimulant use disorder Social History Social History Household Members: Other Housing: Homeless Do you presently have visiting nurse or other home services: No Alcohol intake: current Smoking Status: Current every day smoker Tobacco Type: Cigarette Packs Per Day: 1.5 Cigarettes Per Day: 30.0 Years Smoked: 33 Smoked in Last 30 Days: Yes Patient Interested in Nicotine Replacement: Yes Patient Given Instructions on How to Stop Smoking: Yes Date Education Initiated: 06/24/20 Second Hand Smoke Exposure: No Substance Use Type: Crack/Cocaine, Heroin and Marijuana Substance Use Frequency: Daily Last Used Substance: Days (ago) Currently Displaying Signs/Symptoms of Drug Intoxication Withdrawal: No Any prior treatment program specific to substance use: Yes Have you been hit, kicked, punched, or otherwise hurt by someone within the past year? If so, by whom?: No Do you feel safe in your current relationship?: No Current Relationship Is there a partner from a previous relationship who is making you feel unsafe no w?: No Are you made to feel afraid or neglected: No Advance Directives: No Advance Directives Information Provided: No Do you have thoughts of harming others: None Do you have a plan to hurt others: No Plan Recently lost weight without trying: No service: No Sexual orientation: Straight/Heterosexual Meds Allergies Allergy/AdvReac Type Severity Reaction Status Date / Time buprenorphine [From Subutex] Allergy Angioedema Verified 06/24/20 18:27 Active Medications: Current Medications Generic Name Dose Route Start Last Admin Trade Name Freq PRN Reason Stop Dose Admin Buprenorphine/Naloxone 1 film 06/24/20 21:00 06/25/20 09:17 Buprenorphine/Naloxone 8/2 Mg Film BUCCAL 1 film BID SHABBIR Administration Finasteride 5 mg 06/25/20 09:00 06/25/20 09:17 Finasteride 5 Mg Tablet PO 5 mg DAILY SHABBIR Administration Gabapentin 300 mg 06/24/20 21:00 06/25/20 16:35 Gabapentin 300 Mg Capsule PO 300 mg TID SHABBIR Administration Heparin Sodium (Porcine) 5,000 unit 06/24/20 20:00 06/25/20 09:20 Heparin Sodium,Porcine 5,000 Unit/Ml Vial SUBCUT 5,000 unit Q12H SHABBIR Administration Sodium Chloride 1,000 mls @ 75 mls/hr 06/24/20 20:15 06/25/20 06:41 Ns IVCONT 75 mls/hr .[id number] SHABBIR Administration Insulin Glargine 50 unit 06/24/20 21:00 06/24/20 20:59 Insulin Glargine,Hum.Rec.Anlog 100 Unit/Ml 10 Ml Vial SUBCUT 50 unit BEDTIME SHABBIR Administration Insulin Human Lispro 0 unit 06/24/20 18:05 06/25/20 16:36 Insulin Lispro 100 Unit/Ml 3 Ml Vial SUBCUT Not Given QIDACHS SHABBIR Protocol Nicotine 21 mg 06/25/20 09:00 06/25/20 09:17 Nicotine 21 Mg Patch.Td24 TRANSDERMA 21 mg DAILY SHABBIR Administration Omeprazole 20 mg 06/25/20 06:30 06/25/20 06:38 Omeprazole 20 Mg Capsule. PO 20 mg DAILY@0630 [facility] Administration Pharmacy Consult 1 each 06/24/20 18:05 Consult Rx Perform Med Rec MISCELLANE ONCE PRN Consult order Pharmacy Consult 1 each 06/25/20 07:57 Consult Rx Perform Med Rec MISCELLANE ONCE PRN Consult order Sodium Chloride 3 ml 06/24/20 18:05 06/25/20 16:36 0.9 % Sodium Chloride Flush 3 Ml Syringe IVFLUSH 3 ml QSHIFT [facility] Administration Tamsulosin HCl 0.4 mg 06/24/20 21:00 06/24/20 20:59 Tamsulosin Hcl 0.4 Mg Capsule PO 0.4 mg BEDTIME SHABBIR Administration Home Medications Medication Instructions Recorded Confirmed Last Taken Type albuterol sulfate 2 puff INHALATION Q4-6H PRN 06/13/20 06/25/20 Unknown History benztropine 1 mg PO BID 06/13/20 06/25/20 Unknown History buprenorphine-naloxone [Suboxone] 1 film BUCCAL BID 06/13/20 06/25/20 Unknown History bupropion HCl [Wellbutrin XL] 150 mg PO DAILY 06/13/20 06/25/20 Unknown History clonidine HCl 0.2 mg PO DAILY 06/13/20 06/25/20 Unknown History diphenhydramine HCl [Benadryl] 50 mg PO BEDTIME 06/13/20 06/25/20 Unknown History gabapentin 600 mg PO TID 06/13/20 06/25/20 Unknown History glipizide 10 mg PO DAILY 06/13/20 06/25/20 Unknown History ibuprofen 400 mg PO Q12H PRN 06/13/20 06/25/20 Unknown History insulin glargine [Lantus U-100 90 unit SUBCUT BEDTIME 06/13/20 06/25/20 Unknown History Insulin] lisinopril 20 mg PO DAILY 06/13/20 06/25/20 Unknown History lithium carbonate 450 mg PO BID 06/13/20 06/13/20 Unknown History metformin 1,000 mg PO BIDWM 06/13/20 06/25/20 Unknown History nicotine (polacrilex) 2 mg BUCCAL Q2H PRN 06/13/20 06/25/20 Unknown History nicotine [Nicoderm CQ] 1 patch TRANSDERMAL DAILY 06/13/20 06/25/20 Unknown History omeprazole 20 mg PO DAILY 06/13/20 06/25/20 Unknown History perphenazine 16 mg PO BID 06/13/20 06/13/20 Unknown History quetiapine [Seroquel] 600 mg PO DAILY 06/13/20 06/13/20 Unknown History tamsulosin [Flomax] 0.4 mg PO BEDTIME 06/13/20 06/25/20 Unknown History trazodone 100 mg PO BEDTIME 06/13/20 06/25/20 Unknown History triamterene-hydrochlorothiazid 1 tab PO DAILY 06/13/20 06/25/20 Unknown History venlafaxine [Effexor XR] 150 mg PO DAILY 06/13/20 06/25/20 Unknown History atorvastatin 20 mg PO BEDTIME 06/25/20 06/25/20 Unknown History bupropion HCl 300 mg PO DAILY 06/25/20 06/25/20 Unknown History chlorpromazine 200 mg PO BEDTIME 06/25/20 06/25/20 Unknown History chlorpromazine 300 mg PO DAILY 06/25/20 06/25/20 Unknown History Physical Exam Vital Signs: Last Vital Signs Temp 97.5 F 06/25/20 15:00 Pulse 94 06/25/20 15:00 Resp 20 06/25/20 15:00 BP 111/66 06/25/20 15:00 Pulse Ox 97 06/25/20 15:00 Body Mass Index 27.1 Results Lab Results Result Diagrams: 06/25/20 05:53 06/25/20 15:15 Lab results: Chemistry 06/24/20 06/24/20 06/25/20 18:26 22:19 00:49 Sodium 117 L* 118 L* 119 L* Potassium 4.8 4.0 3.6 Carbon Dioxide 27 25 29 BUN 19 H 16 15 Creatinine 0.93 0.79 0.72 Calcium 9.2 9.0 8.6 06/25/20 06/25/20 06/25/20 05:53 05:53 11:09 Sodium 122 L Cancelled 123 L Potassium 4.5 D Cancelled 4.0 Carbon Dioxide 33 H Cancelled 31 H BUN 13 Cancelled 14 Creatinine 0.69 Cancelled 0.75 Calcium 9.1 Cancelled 8.4 D 06/25/20 15:15 Sodium 122 L Potassium 4.5 Carbon Dioxide 31 H BUN 14 Creatinine 0.67 Calcium 8.7 Hematology 06/25/20 05:53 WBC 7.5 Hgb 15.2 Plt Count 303 Assessment and Plan (1) Hyponatremia: Status: Acute 45 year old man transferred from due to painful urination and testicular pain. As part of work up chemistry was drawn and showed sodium of 122 with repeat of 119. 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 Per ED documentation the patient completed a 10 day ED s zeferino after he was tested + for COVID and remained asymptomatic. 1. Euvollemic Hypona: most c/w combination of excess po fluidintake and hctz vs SIADH from some of his other meds; need to r/o adrenal insuff and hypothyroidism goal is to correc t SNa slowly with po fluid resrictioin and may need additional tx with nacl tabs and/or urea rec; cont po fluid restriction, recheck uosm/na; monitor uop ( ideally would liek a al) to watch for possible spontaneous rapid correction which can occur now that off hctz but he is refusing al; may need urea and/or nacl tabs avoid too rapid correction as goal is to incr by no more than 8 meq/24 hrs
[2020-06-25 19:00] VITALS: BP 113/72; PULSE 89; RESP 18; TEMP 36.3; O2SAT 95
[2020-06-25] MEDS: Tamsulosin HCL 0.4 MG CAPSULE PO (20:09)
[2020-06-25] MEDS: Insulin Glargine,Hum.rec.anlog 100 UNIT/ML 10 ML VIAL 50 UNIT SUBCUT (20:22)
[2020-06-25 20:23] LABS: Glucose, Whole Blood 136 mg/dL (60-115)
[2020-06-25 20:43] LABS: Sodium Urine Random < 20.0 mmol/L
[2020-06-25 21:23] LABS: Anion Gap 13 (12-20); Blood Urea Nitrogen 13 mg/dL (9-16); Calcium 8.6 mg/dL (8.4-10.2); Carbon Dioxide 28 mmol/L (22-29); Chloride 86 mmol/L (96-108); Creatinine Clr Calc Pharmacy 160.8; Estimated Glomerular Filt Rate > 60; Glucose Random 108 mg/dL (60-115); Potassium 4.1 mmol/L (3.3-5.1); Sodium 123 mmol/L (135-145)
[2020-06-25 23:20] VITALS: BP 127/69; PULSE 86; RESP 18; TEMP 37; O2SAT 99
[2020-06-25 23:21] LABS: Osmolality Urine 190 mosm/kg (373-1093)
[2020-06-25 23:38] LABS: Anion Gap 12 (12-20); Blood Urea Nitrogen 12 mg/dL (9-16); Calcium 8.5 mg/dL (8.4-10.2); Carbon Dioxide 31 mmol/L (22-29); Chloride 88 mmol/L (96-108); Creatinine Clr Calc Pharmacy 143.2; Estimated Glomerular Filt Rate > 60; Glucose Random 162 mg/dL (60-115); Sodium 127 mmol/L (135-145)
--- NOTE | 2020-06-26 03:14 | PC.NURSE ---
WEATHERIZATION COORDINATOR smelled cigarette smoke coming from Bathroom and notified this RN. RN spoke with Machine Overhauler and Security called to room. Pt willingly handed over 2 packs of Newports, a computer application developer and a small bag of marijuana. Pt spoken to and Notified with request for Nicotine patch and Ativan. Pt c/o anxiety, difficulty sleeping and the need for nicotine.
[2020-06-26 03:30] VITALS: BP 112/64; PULSE 82; RESP 16; TEMP 36.1; O2SAT 100
[2020-06-26 03:33] LABS: Anion Gap 10 (12-20); Blood Urea Nitrogen 13 mg/dL (9-16); Calcium 8.9 mg/dL (8.4-10.2); Carbon Dioxide 34 mmol/L (22-29); Chloride 92 mmol/L (96-108); Creatinine Clr Calc Pharmacy 135.7; Estimated Glomerular Filt Rate > 60; Glucose Random 83 mg/dL (60-115); Potassium 4.2 mmol/L (3.3-5.1); Sodium 132 mmol/L (135-145)
[2020-06-26] MEDS: Omeprazole 20 MG CAPSULE.DR PO (06:02)
[2020-06-26 06:58] VITALS: BP 109/65; PULSE 89; RESP 18; TEMP 37.1; O2SAT 98
[2020-06-26 07:14] LABS: Glucose, Whole Blood 103 mg/dL (60-115)
[2020-06-26 07:55] LABS: Anion Gap 13 (12-20); Blood Urea Nitrogen 13 mg/dL (9-16); Calcium 8.7 mg/dL (8.4-10.2); Carbon Dioxide 30 mmol/L (22-29); Chloride 94 mmol/L (96-108); Creatinine Clr Calc Pharmacy 145.2; Estimated Glomerular Filt Rate > 60; Glucose Random 102 mg/dL (60-115); Potassium 3.8 mmol/L (3.3-5.1); Sodium 133 mmol/L (135-145)
[2020-06-26 08:17] LABS: TSH reflex Free T4 1.89 uIU/mL (0.32-4.0)
[2020-06-26] MEDS: Buprenorphine/Naloxone 8/2 mg FILM 1 FILM BUCCAL ×2 (08:43→20:06)
[2020-06-26] MEDS: Nicotine 21 MG PATCH.TD24 TRANSDERMA (08:43)
[2020-06-26] MEDS: Gabapentin 300 MG CAPSULE PO ×3 (08:45→20:05)
[2020-06-26] MEDS: Finasteride 5 MG TABLET PO (08:45)
[2020-06-26] MEDS: Heparin Sodium,Porcine 5,000 UNIT/ML VIAL 5000 UNIT SUBCUT ×2 (08:47→20:05)
[2020-06-26] MEDS: 0.9 % Sodium Chloride Flush 3 ML SYRINGE IVFLUSH ×3 (08:50→20:06)
--- NOTE | 2020-06-26 09:13 | PC.NURSE ---
Dr Brown aware of high NA level and Dr. Duff's wishes of starting D5W @ 150/hr, dc fluid restrictions, and repeat lyes. Dr. Brown ordered accordingly. D5W hung at 0845am at 150/hr x 2 hours per order.
[2020-06-26 09:55] LABS: Anion Gap 12 (12-20); Blood Urea Nitrogen 13 mg/dL (9-16); Calcium 8.6 mg/dL (8.4-10.2); Carbon Dioxide 27 mmol/L (22-29); Chloride 93 mmol/L (96-108); Creatinine Clr Calc Pharmacy 137.5; Estimated Glomerular Filt Rate > 60; Glucose Random 200 mg/dL (60-115); Potassium 3.7 mmol/L (3.3-5.1); Sodium 128 mmol/L (135-145)
[2020-06-26 11:21] VITALS: BP 104/57; PULSE 75; RESP 18; TEMP 36.3; O2SAT 96
[2020-06-26 11:21] LABS: Glucose, Whole Blood 133 mg/dL (60-115)
--- NOTE | 2020-06-26 11:23 | PC.NURSE ---
unable to chart the D5w hung this morning per dr kruger's order. 300cc of D5W infused and repeat lab draw to be done. fluid restriction dc'd per Dr. Brown
[2020-06-26 12:28] LABS: Anion Gap 11 (12-20); Blood Urea Nitrogen 14 mg/dL (9-16); Calcium 9.1 mg/dL (8.4-10.2); Carbon Dioxide 34 mmol/L (22-29); Chloride 93 mmol/L (96-108); Creatinine Clr Calc Pharmacy 132.3; Estimated Glomerular Filt Rate > 60; Glucose Random 130 mg/dL (60-115); Potassium 4.2 mmol/L (3.3-5.1); Sodium 134 mmol/L (135-145)
--- NOTE | 2020-06-26 13:08 | PC.NURSE ---
Abbie Awan aware of repeat lytes drawn at 1148. this draw was after 300cc of D5 and patient po fluid restriction dc'd this morning.
--- NOTE | 2020-06-26 13:18 | PM.PNNEP ---
Subjective Subjective Date of Service: 06/26/20 Interval history: Seen and examined. Events noted SNa rollcoster noted with SNa incr c/w resolving from HCTZ and auto correction Physical Exam Vital Signs: Vital Signs: Last Vital Signs Temp 97.4 F 06/26/20 11:21 Pulse 75 06/26/20 11:21 Resp 18 06/26/20 11:21 BP 104/57 L 06/26/20 11:21 Pulse Ox 96 06/26/20 11:21 Body Mass Index 27.1 Objective Data Labs CBC & Chem 7: 06/25/20 05:53 06/26/20 11:48 Labs: Laboratory Results - last 24 hr 06/25/20 06/25/20 06/25/20 15:15 16:14 19:21 Sodium 122 L 123 L Potassium 4.5 4.1 Chloride 84 L 86 L Carbon Dioxide 31 H 28 Anion Gap 12 13 BUN 14 13 Creatinine 0.67 0.65 Estim Creat Clear Calc 156.0 160.8 Estimated GFR > 60 > 60 POC Glucose 135 H Random Glucose 124 H 108 Calcium 8.7 8.6 TSH Urine Osmolality Ur Random Sodium 06/25/20 06/25/20 06/25/20 19:34 19:34 20:10 Sodium Potassium Chloride Carbon Dioxide Anion Gap BUN Creatinine Estim Creat Clear Calc Estimated GFR POC Glucose 136 H Random Glucose Calcium TSH Urine Osmolality 190 L Ur Random Sodium < 20.0 06/25/20 06/26/20 06/26/20 22:45 02:48 07:02 Sodium 127 L 132 L Potassium 4.0 4.2 Chloride 88 L 92 L Carbon Dioxide 31 H 34 H Anion Gap 12 10 L BUN 12 13 Creatinine 0.73 0.77 Estim Creat Clear Calc 143.2 135.7 Estimated GFR > 60 > 60 POC Glucose 103 Random Glucose 162 H D 83 D Calcium 8.5 8.9 TSH Urine Osmolality Ur Random Sodium 06/26/20 06/26/20 06/26/20 07:04 07:04 09:09 Sodium 133 L 128 L Potassium 3.8 3.7 Chloride 94 L 93 L Carbon Dioxide 30 H 27 Anion Gap 13 12 BUN 13 13 Creatinine 0.72 0.76 Estim Creat Clear Calc 145.2 137.5 Estimated GFR > 60 > 60 POC Glucose Random Glucose 102 200 H D Calcium 8.7 8.6 TSH 1.89 Urine Osmolality Ur Random Sodium 06/26/20 06/26/20 11:07 11:48 Sodium 134 L Potassium 4.2 Chloride 93 L Carbon Dioxide 34 H Anion Gap 11 L BUN 14 Creatinine 0.79 Estim Creat Clear Calc 132.3 Estimated GFR > 60 POC Glucose 133 H Random Glucose 130 H Calcium 9.1 TSH Urine Osmolality Ur Random Sodium Assessment & Plan Assessment and plan (1) Hyponatremia: Status: Acute Assessment and Plan: 45 year old man transferred from due to painful urination and testicular pain. As part of work up chemistry was drawn and showed sodium of 122 with repeat of 119. 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 Per ED documentation the patient completed a 10 day ED stay after he was tested + for COVID and remained asymptomatic. 1. Euvollemic Hypona: most c/w combination of excess po fluidintake and hctz effect on tubules and now demo self correction which is slt too fast so getting iv hypotonic fluids Goal is to incr SNa by 8 meq/ 24 hrs as best we can; his Sna was 122 yest at 5 am so he is slt above target and so we are givingi D5W and rechecking SNa I have d/w med team Time Spent With Patient Time: Total time spent is greater than 50% in coordination of care (as documented) at patient's floor/unit and/or counseling patient:
[2020-06-26] MEDS: Dextrose 5 % 500 ML 150 ML IVCONT ×2 (14:22→14:26)
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
--- NOTE | 2020-06-26 15:11 | HO.PM.IMPN ---
Subjective Subjective Date of Service: 06/26/20 Interval History: f/u hyponatremia found smoking in bathroom overnight no complaints this am Review of Systems Review of Systems: Yes all other systems are reviewed and are negative Constitutional Constitutional: Denies chills and Denies fever(s) Cardiovascular Cardiovascular: Denies chest pain Respiratory Respiratory: Denies cough Gastrointestinal Gastrointestinal: Denies abdominal pain Physical Exam Vital Signs: Vital Signs: Last Vital Signs Temp 97.4 F 06/26/20 11:21 Pulse 75 06/26/20 11:21 Resp 18 06/26/20 11:21 BP 104/57 L 06/26/20 11:21 Pulse Ox 96 06/26/20 11:21 Body Mass Index 27.1 Const: Nutritional Appearance: well nourished Orientation/consciousness: patient oriented x3 HENMT: Head: Yes normocephalic and Yes atraumatic Eyes: Sclerae: sclerae normal Chest: Chest palpation & inspection: normal inspection of the chest Resp: Effort & Inspection: normal respiratory effort and no respiratory distress Cardio: Rate: regular rate Rhythm: regular rhythm GI: Palpation (GI): Soft to palpation and nontender Skin: General skin exam: no rashes or lesions noted Neuro: General: patient oriented x3 Cranial nerves: Yes CN's II-XII intact bilaterally and Yes Bilaterally intact EOM present Extrem: General: Yes normal to inspection Objective Data Current Medications Generic Name Dose Route Start Last Admin Trade Name Freq PRN Reason Stop Dose Admin Buprenorphine/Naloxone 1 film 06/24/20 21:00 06/26/20 08:43 Buprenorphine/Naloxone 8/2 Mg Film BUCCAL 1 film BID SHABBIR Administration Finasteride 5 mg 06/25/20 09:00 06/26/20 08:45 Finasteride 5 Mg Tablet PO 5 mg DAILY SHABBIR Administration Gabapentin 300 mg 06/24/20 21:00 06/26/20 08:45 Gabapentin 300 Mg Capsule PO 300 mg TID SHABBIR Administration Heparin Sodium (Porcine) 5,000 unit 06/24/20 20:00 06/26/20 08:47 Heparin Sodium,Porcine 5,000 Unit/Ml Vial SUBCUT 5,000 unit Q12H SHABBIR Administration Dextrose 500 mls @ 150 mls/hr 06/26/20 14:30 06/26/20 14:22 D5w IVCONT 06/26/20 17:49 150 mls/hr .Q3H20M SHABBIR Administration Insulin Glargine 50 unit 06/24/20 21:00 06/25/20 20:22 Insulin Glargine,Hum.Rec.Anlog 100 Unit/Ml 10 Ml Vial SUBCUT 50 unit BEDTIME SHABBIR Administration Insulin Human Lispro 0 unit 06/24/20 18:05 06/26/20 11:25 Insulin Lispro 100 Unit/Ml 3 Ml Vial SUBCUT Not Given QIDACHS [facility] Protocol Nicotine 21 mg 06/25/20 09:00 06/26/20 08:43 Nicotine 21 Mg Patch.Td24 TRANSDERMA 21 mg DAILY SHABBIR Administration Omeprazole 20 mg 06/25/20 06:30 06/26/20 06:02 Omeprazole 20 Mg Capsule. PO 20 mg DAILY@0630 SHABBIR Administration Pharmacy Consult 1 each 06/24/20 18:05 Consult Rx Perform Med Rec MISCELLANE ONCE PRN Consult order Pharmacy Consult 1 each 06/25/20 07:57 Consult Rx Perform Med Rec MISCELLANE ONCE PRN Consult order Sodium Chloride 3 ml 06/24/20 18:05 06/26/20 08:50 0.9 % Sodium Chloride Flush 3 Ml Syringe IVFLUSH 3 ml QSHIFT SHABBIR Administration Tamsulosin HCl 0.4 mg 06/24/20 21:00 06/25/20 20:09 Tamsulosin Hcl 0.4 Mg Capsule PO 0.4 mg BEDTIME SHABBIR Administration Labs CBC & Chem 7: 06/25/20 05:53 06/26/20 11:48 Assessment and Plan (1) Hyponatremia: Status: Acute Assessment and Plan: 45 year old man transferred from due to painful urination and testicular pain. As part of work up chemistry was drawn and showed sodium of 122 with repeat of 119. Patient was asymtomatic This is a 45 yo M with multiple medical issues including DM, GERD, HTN, Cocaine induced [place] who was admitted to the psychiatric floor. Per ED documentation the patient completed a 10 day ED stay after he was tested + for COVID and remained asymptomatic. Hyponatremia. Asymptomatic. Likely secondary to thiazide diuretic and psychogenic polydipsia -Stop diuretic -BMPQ4h -Nephrology following. BPH, testicular pain continue flomax / proscar UCx negative scrotal US unremarkable urological consult pending depression with SI Continues with sitter. On multiple meds at home, most held while in ED -management per -transfer to [facility] after patient is medically stable. Diabetes. -sliding scale, lantus gerd prilosec tobacco dependence -NRT opiate abuse -continue suboxone covid + s/p 10 day isolation in ED no respiratory sx, on room air DVT ppx - heparin Code status - full code Attending: Dr. Brown
[2020-06-26 15:34] VITALS: PULSE 79; RESP 18; TEMP 36.6
[2020-06-26 16:25] LABS: Anion Gap 11 (12-20); Blood Urea Nitrogen 15 mg/dL (9-16); Calcium 8.5 mg/dL (8.4-10.2); Carbon Dioxide 31 mmol/L (22-29); Chloride 89 mmol/L (96-108); Creatinine Clr Calc Pharmacy 107.7; Estimated Glomerular Filt Rate > 60; Glucose Random 149 mg/dL (60-115); Potassium 4.1 mmol/L (3.3-5.1); Sodium 127 mmol/L (135-145)
[2020-06-26] MEDS: Insulin Lispro 100 UNIT/ML 3 ML VIAL SUBCUT (16:30)
[2020-06-26 16:34] LABS: Glucose, Whole Blood 170 mg/dL (60-115)
[2020-06-26 19:02] LABS: Anion Gap 12 (12-20); Blood Urea Nitrogen 15 mg/dL (9-16); Calcium 8.6 mg/dL (8.4-10.2); Carbon Dioxide 29 mmol/L (22-29); Chloride 92 mmol/L (96-108); Creatinine Clr Calc Pharmacy 120.1; Estimated Glomerular Filt Rate > 60; Glucose Random 148 mg/dL (60-115); Potassium 4.1 mmol/L (3.3-5.1); Sodium 129 mmol/L (135-145)
[2020-06-26 19:56] VITALS: BP 118/72; PULSE 79; RESP 18; TEMP 36.4; O2SAT 98
[2020-06-26] MEDS: Insulin Glargine,Hum.rec.anlog 100 UNIT/ML 10 ML VIAL 50 UNIT SUBCUT (20:05)
[2020-06-26] MEDS: Tamsulosin HCL 0.4 MG CAPSULE PO (20:06)
[2020-06-26 21:02] LABS: Anion Gap 11 (12-20); Blood Urea Nitrogen 15 mg/dL (9-16); Calcium 8.6 mg/dL (8.4-10.2); Carbon Dioxide 30 mmol/L (22-29); Chloride 93 mmol/L (96-108); Creatinine Clr Calc Pharmacy 125.9; Estimated Glomerular Filt Rate > 60; Glucose Random 126 mg/dL (60-115); Sodium 130 mmol/L (135-145)
[2020-06-26 23:25] VITALS: BP 113/68; PULSE 74; RESP 18; TEMP 36.6; O2SAT 100
[2020-06-27 01:30] LABS: Anion Gap 13 (12-20); Blood Urea Nitrogen 15 mg/dL (9-16); Carbon Dioxide 31 mmol/L (22-29); Chloride 94 mmol/L (96-108); Creatinine Clr Calc Pharmacy 135.7; Estimated Glomerular Filt Rate > 60; Glucose Random 125 mg/dL (60-115); Potassium 4.3 mmol/L (3.3-5.1); Sodium 134 mmol/L (135-145)
[2020-06-27 04:41] VITALS: BP 126/64; PULSE 67; RESP 18; TEMP 37.1; O2SAT 97
[2020-06-27] MEDS: Omeprazole 20 MG CAPSULE.DR PO (06:09)
[2020-06-27 06:11] LABS: Anion Gap 13 (12-20); Blood Urea Nitrogen 15 mg/dL (9-16); Carbon Dioxide 30 mmol/L (22-29); Chloride 96 mmol/L (96-108); Creatinine Clr Calc Pharmacy 147.2; Estimated Glomerular Filt Rate > 60; Glucose Random 81 mg/dL (60-115); Potassium 4.1 mmol/L (3.3-5.1); Sodium 135 mmol/L (135-145)
[2020-06-27] MEDS: Finasteride 5 MG TABLET PO (07:58)
[2020-06-27] MEDS: 0.9 % Sodium Chloride Flush 3 ML SYRINGE IVFLUSH (07:58)
[2020-06-27] MEDS: Heparin Sodium,Porcine 5,000 UNIT/ML VIAL 5000 UNIT SUBCUT (07:58)
[2020-06-27] MEDS: Gabapentin 300 MG CAPSULE PO ×2 (07:58→14:03)
[2020-06-27] MEDS: Nicotine 21 MG PATCH.TD24 TRANSDERMA (07:59)
[2020-06-27] MEDS: Buprenorphine/Naloxone 8/2 mg FILM 1 FILM BUCCAL (07:59)
[2020-06-27 08:28] LABS: Glucose, Whole Blood 123 mg/dL (60-115)
--- NOTE | 2020-06-27 09:56 | P.DS_ITS ---
DS: Providers Provider Date of Service: 06/27/20 Date of admission: 06/24/20 15:52 Primary care physician: Unknown Physician Consults: 06/24/20 18:05 Consult to Nephrology Routine Consulting Provider: Vicente Duff Reason for consultation: hyponatremia - SNa 119 Consult to Psychiatry Routine Consulting Provider: Jenn eBrry Reason for consultation: SI/Depression 06/25/20 16:32 Consult to Urology Routine Consulting Provider: Giovanny Cooper Reason for consultation: scrotal pain, dysuria, neg urine cx Has provider been notified: No DS: Diagnosis Discharge Diagnosis (1) Alcohol use disorder, severe, dependence: Status: Acute (2) Schizophrenia: Status: Acute (3) Opioid use disorder: Status: Acute (4) Hyponatremia: Status: Acute DS: Medications Discharge Medications Home Medications: Home Medications Medication Instructions Recorded Confirmed albuterol sulfate 2 puff INHALATION Q4-6H PRN 06/13/20 06/25/20 benztropine 1 mg PO BID 06/13/20 06/25/20 buprenorphine-naloxone [Suboxone] 1 film BUCCAL BID 06/13/20 06/25/20 bupropion HCl [Wellbutrin XL] 150 mg PO DAILY 06/13/20 06/25/20 clonidine HCl 0.2 mg PO DAILY 06/13/20 06/25/20 diphenhydramine HCl [Benadryl] 50 mg PO BEDTIME 06/13/20 06/25/20 gabapentin 600 mg PO TID 06/13/20 06/25/20 glipizide 10 mg PO DAILY 06/13/20 06/25/20 ibuprofen 400 mg PO Q12H PRN 06/13/20 06/25/20 insulin glargine [Lantus U-100 90 unit SUBCUT BEDTIME 06/13/20 06/25/20 Insulin] lisinopril 20 mg PO DAILY 06/13/20 06/25/20 lithium carbonate 450 mg PO BID 06/13/20 06/13/20 metformin 1,000 mg PO BIDWM 06/13/20 06/25/20 nicotine (polacrilex) 2 mg BUCCAL Q2H PRN 06/13/20 06/25/20 nicotine [Nicoderm CQ] 1 patch TRANSDERMAL DAILY 06/13/20 06/25/20 omeprazole 20 mg PO DAILY 06/13/20 06/25/20 perphenazine 16 mg PO BID 06/13/20 06/13/20 quetiapine [Seroquel] 600 mg PO DAILY 06/13/20 06/13/20 tamsulosin [Flomax] 0.4 mg PO BEDTIME 06/13/20 06/25/20 trazodone 100 mg PO BEDTIME 06/13/20 06/25/20 triamterene-hydrochlorothiazid 1 tab PO DAILY 06/13/20 06/25/20 venlafaxine [Effexor XR] 150 mg PO DAILY 06/13/20 06/25/20 atorvastatin 20 mg PO BEDTIME 06/25/20 06/25/20 bupropion HCl 300 mg PO DAILY 06/25/20 06/25/20 chlorpromazine 200 mg PO BEDTIME 06/25/20 06/25/20 chlorpromazine 300 mg PO DAILY 06/25/20 06/25/20 DS: Summary Hospital Course Hospital Course: This is a 45 yo M with multiple medical issues including DM, GERD, HTN, Cocaine induced [place] who was admitted to the psychiatric floor. Per ED documentation the patient completed a 10 day ED stay after he was tested + for COVID and remained asymptomatic. The morning after admission to the psych floor, the patient reported difficulty and painful urination along with testicular pain and so medical consult was placed. As part of his work up for his dysuria, a chemistry was checked which showed moderate hyponatremia (122 -- added to his AM labs) which was confirmed with a repeat STAT BMP showing a SNa of 119. Although the patient remained completely asymptomatic from the perspective of hypoNa, given his complex medical history + on going psychiatric illness, after discussion with the nephrology team, decision was made to transfer the patient to the medical floor. Hyponatremia. Asymptomatic. Patient was admitted to medical floor evaluated by Nephrology. Hyponatremia was likely secondary to thiazide diuretic and psychogenic polydipsia. His diuretic was discontinued. He was initially placed on a fluid restriction. Over the course of the past 48 hours his sodium improved to 135. He is stable for discharge. BPH, testicular pain continue flomax / UCx negative. scrotal US was unremarkable Seen by urology who recommends to continue Flomax depression with SI On multiple meds at home, most held while in ED and during admission. Cleared for discharge home rather than return to by care team. No longer expressing SI. -was seen in consultation with [facility] staff while on medical floor, recommend discharge with olanzapine, gabapentin, Wellbutrin, Suboxone -should follow up with outpatient mental health provider Time Spent with Patient Time attestation: Total time spent providing and/or coordinating discharge services: Discharge coordination time: Greater than 30 minutes Physical Exam Vital Signs: Vital Signs: Last Vital Signs Temp 98.7 F 06/27/20 04:41 Pulse 67 06/27/20 04:41 Resp 18 06/27/20 04:41 BP 126/64 06/27/20 04:41 Pulse Ox 97 06/27/20 04:41 Body Mass Index 27.1 Const: Nutritional Appearance: well nourished Orientation/consciousness: patient oriented x3 HENMT: Head: Yes normocephalic and Yes atraumatic Eyes: Sclerae: sclerae normal Chest: Chest palpation & inspection: normal inspection of the chest Resp: Effort & Inspection: normal respiratory effort and no respiratory distress Cardio: Rate: regular rate Rhythm: regular rhythm GI: Palpation (GI): Soft to palpation and nontender Skin: General skin exam: no rashes or lesions noted Neuro: General: patient oriented x3 Cranial nerves: Yes CN's II-XII intact bilaterally and Yes Bilaterally intact EOM present DS: Data Data Completed and Pending Labs on day of discharge: Laboratory Results - last 24 hr 06/26/20 06/26/20 06/26/20 07:04 09:09 11:07 Sodium 128 L Potassium 3.7 Chloride 93 L Carbon Dioxide 27 Anion Gap 12 BUN 13 Creatinine 0.76 Estim Creat Clear Calc 137.5 Estimated GFR > 60 POC Glucose 133 H Random Glucose 200 H D Calcium 8.6 Cortisol 4.9 06/26/20 06/26/20 06/26/20 11:48 15:36 16:02 Sodium 134 L 127 L Potassium 4.2 4.1 Chloride 93 L 89 L Carbon Dioxide 34 H 31 H Anion Gap 11 L 11 L BUN 14 15 Creatinine 0.79 0.97 Estim Creat Clear Calc 132.3 107.7 Estimated GFR > 60 > 60 POC Glucose 170 H Random Glucose 130 H 149 H Calcium 9.1 8.5 D Cortisol 06/26/20 06/26/20 06/27/20 18:36 20:22 00:43 Sodium 129 L 130 L 134 L Potassium 4.1 4.0 4.3 Chloride 92 L 93 L 94 L Carbon Dioxide 29 30 H 31 H Anion Gap 12 11 L 13 BUN 15 15 15 Creatinine 0.87 0.83 0.77 Estim Creat Clear Calc 120.1 125.9 135.7 Estimated GFR > 60 > 60 > 60 POC Glucose Random Glucose 148 H 126 H 125 H Calcium 8.6 8.6 9.0 Cortisol 06/27/20 06/27/20 04:39 08:24 Sodium 135 Potassium 4.1 Chloride 96 Carbon Dioxide 30 H Anion Gap 13 BUN 15 Creatinine 0.71 Estim Creat Clear Calc 147.2 Estimated GFR > 60 POC Glucose 123 H Random Glucose 81 D Calcium 9.0 Cortisol Discharge Plan Discharge Patient Disposition: Home, Self-Care Referrals: Physician,Unknown [Primary Care Provider] - Discharge Medications: New olanzapine 10 mg tablet 10 mg PO BEDTIME 30 Days Qty: 7 RF: 0 gabapentin 300 mg Capsule 300 mg PO TID Qty: 21 RF: 0 Lantus U-100 Insulin 100 unit/mL Solution 50 unit subcut BEDTIME 30 Days Qty: 15 RF: 0 Continued diphenhydramine HCl [Benadryl] 50 mg Capsule 50 mg PO BEDTIME RF: 0 nicotine (polacrilex) 2 mg Gum 2 mg BUCCAL Q2H PRN (Reason: Nicotine Cravings) RF: 0 glipizide 10 mg Tablet 10 mg PO DAILY RF: 0 tamsulosin [Flomax] 0.4 mg Capsule 0.4 mg PO BEDTIME RF: 0 trazodone 100 mg Tablet 100 mg PO BEDTIME RF: 0 metformin 1,000 mg Tablet 1,000 mg PO BIDWM RF: 0 nicotine [Nicoderm CQ] 21 mg/24 hr Patch 24 Hour 1 patch TRANSDERMAL DAILY RF: 0 omeprazole 20 mg Capsule,Delayed Release(Dr/Ec) 20 mg PO DAILY RF: 0 albuterol sulfate 90 mcg/actuation Hfa Aerosol Inhaler 2 puff INHALATION Q4-6H PRN (Reason: Shortness Of Breath) RF: 0 buprenorphine-naloxone [Suboxone] 8-2 mg Film 1 film BUCCAL BID RF: 0 atorvastatin 20 mg tablet 20 mg PO BEDTIME RF: 0 bupropion HCl [Wellbutrin XL] 150 mg Tablet Extended Release 24 Hr 150 mg PO DAILY Qty: 7 RF: 0 Discontinued Lantus U-100 Insulin 100 unit/mL Solution 90 unit SUBCUT BEDTIME RF: 0 quetiapine [Seroquel] 300 mg Tablet 600 mg PO DAILY RF: 0 lisinopril 20 mg Tablet 20 mg PO DAILY RF: 0 venlafaxine [Effexor XR] 150 mg Capsule,Extended Release 24hr 150 mg PO DAILY RF: 0 lithium carbonate 450 mg Tablet Extended Release 450 mg PO BID RF: 0 clonidine HCl 0.2 mg Tablet 0.2 mg PO DAILY RF: 0 ibuprofen 400 mg Tablet 400 mg PO Q12H PRN (Reason: Pain) RF: 0 benztropine 1 mg Tablet 1 mg PO BID RF: 0 gabapentin 300 mg Capsule 600 mg PO TID RF: 0 triamterene-hydrochlorothiazid 37.5-25 mg Tablet 1 tab PO DAILY RF: 0 perphenazine 16 mg Tablet 16 mg PO BID RF: 0 chlorpromazine 100 mg tablet 300 mg PO DAILY RF: 0 chlorpromazine 200 mg tablet 200 mg PO BEDTIME RF: 0 bupropion HCl 300 mg Tablet Extended Release 24 Hr 300 mg PO DAILY RF: 0 Discharge Orders: Discharge Order (Routine); Ordered 06/27/20 Ordered By: Abbie Awan Stand Alone Forms: Patient Portal Discharge page Care Plan Goals: See below Health Concerns: Depression Hyponatremia Plan of Treatment: Hyponatremia-sodium levels have returned to normal. Stop taking triamterene- HCTZ Please call PCP to make an appointment for follow-up There were multiple medication changes made to her med list please see discharge orders for details. Please follow-up with outpatient mental health provider for medication titration.
--- NOTE | 2020-06-27 11:49 | MHC.CM.PN ---
per rounds if m5 clears pt for dc pt will be dcd today
[2020-06-27 11:51] LABS: Glucose, Whole Blood 97 mg/dL (60-115)
[2020-06-27 12:00] VITALS: BP 104/70; PULSE 86; RESP 16; TEMP 36.6; O2SAT 97
--- NOTE | 2020-06-27 14:47 | MHC.CARE ---
TW met with pt prior to discharge. Pt reported doing better and denied SI, HI, AH, VH. Pt felt safe and ready to go back home and have things set up in place. TW set up counseling appointment through [facility] and also helped set up medications for take home.
--- NOTE | 2020-06-27 15:48 | MHC.CM.PN ---
pt cleared by psych for dc home
--- NOTE | 2020-06-27 15:56 | PC.NURSE ---
P-patient very angry,swearing,stating he is waiting to be discharged all day I-RESHMA Awan notified e-discharge instructions given to patient,sitter with patient,will assist patient to lobby
== END 2020-06-27 16:01 | disposition home or self-care (01) | DRG 426 ==
PROVIDERS: Hospitalist; Internal Medicine Nephrology; Physician Assistant Medical; Admitting Provider Family Medicine; Visit Provider Family Medicine
DX: E87.1 Hypo-osmolality and hyponatremia (principal); E11.42 Type 2 diabetes mellitus with diabetic polyneuropathy; R45.851 Suicidal ideations; F11.20 Opioid dependence, uncomplicated; F20.9 Schizophrenia, unspecified; F17.210 Nicotine dependence, cigarettes, uncomplicated; T50.2X5A Adverse effect of carbonic-anhydrase inhibitors, benzothiadiazides and other diuretics, initial encounter; Y92.9 Unspecified place or not applicable; F32.9 Major depressive disorder, single episode, unspecified; K21.9 Gastro-esophageal reflux disease without esophagitis; N40.0 Benign prostatic hyperplasia without lower urinary tract symptoms; F10.20 Alcohol dependence, uncomplicated; N50.82 Scrotal pain; Z71.6 Tobacco abuse counseling; Z79.4 Long term (current) use of insulin; Z79.899 Other long term (current) drug therapy
CPT/HCPCS: 36415; 76870; 80048; 82533; 82947; 83935; 84300; 84443; 85027

== ENCOUNTER 2020-07-03 11:45 | Inpatient (IN) | payer MEDICAID, SELFPAY ==
[2020-07-03 12:01] VITALS: BP 142/87; BP 200/110; PULSE 90; PULSE 96; RESP 18; TEMP 36.6; O2SAT 99; BMI 25.7
[2020-07-03 12:05] VITALS: BP 142/87; PULSE 96; RESP 18; TEMP 36.6; O2SAT 99
[2020-07-03 12:05] LABS: Glucose, Whole Blood 203 mg/dL (60-115)
--- NOTE | 2020-07-03 12:27 | ECG_ITS ---
Test Reason : COCAINE USE Blood Pressure : / mmHG Vent. Rate : 080 BPM Atrial Rate : 080 BPM P-R Int : 194 ms QRS Dur : 150 ms QT Int : 424 ms P-R-T Axes : 032 023 054 degrees QTc Int : 489 ms Normal sinus rhythm Right bundle branch block Abnormal ECG When compared with ECG of 15-JUN-2020 20:11, No significant change was found Referred By: Mita Carmen Electronically Signed By:DANIEL PA
[2020-07-03] MEDS: Gabapentin 600 MG TABLET PO (12:36)
[2020-07-03] MEDS: Nicotine 21 MG PATCH.TD24 TRANSDERMA (12:36)
[2020-07-03] MEDS: LORazepam 1 MG TABLET 2 MG PO ×2 (12:36→21:02)
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
[2020-07-03 13:16] LABS: MANUAL DIFF FLAG NO
[2020-07-03 13:18] LABS: Basophils Percent Auto 0.3 % (0-2); Eosinophils Absolute Auto 0.1 X10*3/uL (0.0-0.4); Eosinophils Percent Auto 0.7 % (0-4); Hematocrit 37.5 % (42-52); Hemoglobin 12.3 g/dl (14.0-18.0); Imm Gran Abs Auto 0.01 X10*3/uL (0.00-0.03); Imm Gran Pct Auto 0.1 % (0.0-0.4); Lymphocytes Absolute Auto 1.8 X10*3/uL (1.2-4.9); Lymphocytes Percent Auto 25.2 % (20-40); Mean Corpuscular HGB Conc 32.8 g/dl (31.0-36.0); Mean Corpuscular Hemoglobin 28.8 pg (27.0-33.0); Mean Corpuscular Volume 87.8 fL (80-98); Mean Platelet Volume 9.1 fL (9.4-12.4); Monocytes Absolute Auto 0.6 X10*3/uL (0.1-1.2); Monocytes Percent Auto 8.4 % (2-11); Neutrophils Absolute Auto 4.7 X10*3/uL (2.0-8.3); Neutrophils Percent Auto 65.3 % (45-73); Platelet Count 324 X10*3/uL (160-400); Red Blood Count 4.27 X10*6/uL (4.60-5.80); Red Cell Distribution Width 13.8 % (11.0-16.0); White Blood Count 7.2 X10*3/uL (4.8-10.8)
[2020-07-03 13:31] LABS: COVID-19 Test Negative (Negative)
[2020-07-03 13:37] LABS: Ethanol < 10 mg/dL
[2020-07-03 13:40] LABS: Acetaminophen LAB < 1 mcg/mL (<30); Alanine Aminotransferase 38 U/L (0-40); Albumin Level 3.8 g/dL (3.5-5.0); Alkaline Phosphatase 53 U/L (39-117); Anion Gap 16 (12-20); Aspartate Amino Transferase 41 U/L (5-37); Bilirubin Direct 0.3 mg/dL (0.0-0.5); Bilirubin Total 0.3 mg/dL (0.0-1.0); Blood Urea Nitrogen 10 mg/dL (9-16); Calcium 8.7 mg/dL (8.4-10.2); Carbon Dioxide 26 mmol/L (22-29); Chloride 100 mmol/L (96-108); Creatinine Clr Calc Pharmacy 117.4; Estimated Glomerular Filt Rate > 60; Glucose Random 221 mg/dL (60-115); Potassium 3.8 mmol/L (3.3-5.1); Salicylate < 5.0 mg/dL (15-30); Sodium 138 mmol/L (135-145); Total Protein 6.6 g/dL (6.5-8.0)
[2020-07-03 13:53] LABS: Amphetamine Screen Urine Not Detected (Not Detect); Barbiturates, Urine Not Detected (Not Detect); Benzodiazepines Screen Urine Not Detected (Not Detect); Cannabinoid Screen Urine POSITIVE (Not Detect); Cocaine Screen Urine POSITIVE (Not Detect); Opiate Screen Urine Not Detected (Not Detect); Phencyclidine Screen Urine Not Detected (Not Detect)
--- NOTE | 2020-07-03 14:15 | PC.NURSE ---
KAY faxed and called, confirmed with taylor. Per taylor there is not time estimate for when PT will be seen as they are short staffed.
[2020-07-03 17:43] LABS: Glucose, Whole Blood 109 mg/dL (60-115)
[2020-07-03 18:15] VITALS: BP 110/79; PULSE 73; RESP 18; TEMP 36.7; O2SAT 97
--- NOTE | 2020-07-03 20:01 | PC.NURSE ---
Gena (from Care Team) in to see patient. Pt sleepy but arousable to stimuli. Plan to admit to M5. Pt admits to cocaine & marijuana use, and also reports ETOH abuse to Gena & pritesh RN. ETOH level previously drawn, result <10. Per Gena, pt was mumbling during the majority of their interaction, wanting to sleep, but agrees to M5 admission. Awaiting admitting bed assignment at this time.
[2020-07-03 20:16] VITALS: BP 132/87; PULSE 66; RESP 16; TEMP 36.3; O2SAT 99
--- NOTE | 2020-07-03 20:37 | PC.NURSE ---
POC glucose 142. Plan to medicate as ordered.
[2020-07-03 20:40] LABS: Glucose, Whole Blood 142 mg/dL (60-115)
[2020-07-03] MEDS: Insulin Glargine,Hum.rec.anlog 100 UNIT/ML 10 ML VIAL 70 UNIT SUBCUT (21:01)
[2020-07-03] MEDS: Gabapentin 300 MG CAPSULE 600 MG PO (21:01)
[2020-07-03] MEDS: Tamsulosin HCL 0.4 MG CAPSULE PO (21:02)
[2020-07-03] MEDS: Buprenorphine/Naloxone 8/2 mg FILM 1 FILM BUCCAL (21:02)
[2020-07-03] MEDS: TiZANidine HCL 4 MG TABLET PO (21:02)
[2020-07-03] MEDS: traZODone HCL 100 MG TABLET PO (21:02)
--- NOTE | 2020-07-03 21:12 | PC.NURSE ---
This RN called M5 unit to give RN to RN report. Awaiting call back from BARBARA Powell to give report. Plan to admit to bed 517-2, accepting MD Best.
--- NOTE | 2020-07-03 21:28 | PC.NURSE ---
Pt out of bed to bathroom, had previously requested bedside urinal, but encouraged to ambulate. Pt calm/cooperative, ambulating with steady gait. Medicated as ordered. Awaiting call back from M5 RN to give nurse to nurse report.
--- NOTE | 2020-07-03 21:37 | PC.NURSE ---
RN to RN report given to BARBARA Posadas. Preparing for transfer to [facility].
[2020-07-03 22:51] VITALS: BP 111/73; PULSE 82; TEMP 36.4
[2020-07-04] MEDS: cloNIDine HCL 0.1 MG TABLET PO (00:02)
[2020-07-04] MEDS: hydrOXYzine HCL 50 MG TABLET PO (00:02)
[2020-07-04] MEDS: OLANZapine 5 MG TABLET PO ×2 (00:02→20:58)
[2020-07-04 00:21] VITALS: BP 101/64; PULSE 80; RESP 16
--- NOTE | 2020-07-04 01:59 | PC.ADMIT ---
Patient is a 45 year old Croatian speaking male. Patient signed CV. Patient admitted to M5 at 2300 from the [facility] ED. Patient chief complaint in ED according to Care Team is because he was feeling suicidal with a plan to jump off a bridge or into traffic. Patient did report elevated anxiety and depression. On the M5 unit, patient reports continues suicidal thoughts but with no plan in place and contracted for safety with this RN. Patient has a hx of substance abuse using ETOH and cocaine. Patient not on CIWA in the ED. No overt signs of withdrawal from patient observed on intake. Patient given HS medications in ED. On unit patient was sleepy but cooperative with signing legal paperwork. Patient stated that he wanted some prn medication for anxiety and sleep. Patient given Zyprexa 5mg, clonidine 0.1 mg, and Atarax 50 mg. Patient declined full assessment and requested to go to sleep. UTOX + for cocaine, THC BAL< 10. Covid negative on 07/03/2020. AST slightly elevated at 41, other labs unremarkable. EKG abnormal QT/QTC 424/489. Patient is currently homeless. Patient reporting that he drinks 4 pints of hard liquor daily with some beers. Patient has had past admissions to , last on 06/23/2020. Patient on 5 minute checks for safety due to SI thoughts.
[2020-07-04 04:00] VITALS: BP 105/58; PULSE 66; RESP 14; TEMP 37.1; O2SAT 97
[2020-07-04 06:20] VITALS: BP 111/67; PULSE 68; RESP 20; TEMP 36.8; O2SAT 96
[2020-07-04 07:02] LABS: Glucose, Whole Blood 94 mg/dL (60-115)
[2020-07-04 10:23] VITALS: BP 98/61; PULSE 66; RESP 16
[2020-07-04] MEDS: Gabapentin 300 MG CAPSULE 600 MG PO ×2 (10:48→20:57)
[2020-07-04] MEDS: Finasteride 5 MG TABLET PO (10:48)
[2020-07-04] MEDS: metFORMIN HCl 1,000 MG TABLET 1000 MG PO ×2 (10:48→19:07)
[2020-07-04] MEDS: Buprenorphine/Naloxone 8/2 mg FILM 1 FILM BUCCAL ×2 (10:48→20:59)
[2020-07-04] MEDS: buPROPion HCl XL 150 MG TAB.ER.24H PO (10:48)
[2020-07-04] MEDS: lisinopriL 20 MG TABLET PO (10:48)
[2020-07-04] MEDS: glipiZIDE 10 MG TABLET PO (10:48)
[2020-07-04] MEDS: TiZANidine HCL 4 MG TABLET PO ×2 (10:48→20:58)
[2020-07-04] MEDS: Nicotine 21 MG PATCH.TD24 TRANSDERMA (10:49)
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
[2020-07-04] MEDS: Insulin Glargine,Hum.rec.anlog 100 UNIT/ML 10 ML VIAL 70 UNIT SUBCUT (20:54)
[2020-07-04] MEDS: Atorvastatin Calcium 10 MG TABLET PO (20:57)
[2020-07-04] MEDS: traZODone HCL 100 MG TABLET PO (20:57)
[2020-07-04] MEDS: Tamsulosin HCL 0.4 MG CAPSULE PO (20:58)
[2020-07-04 21:11] LABS: Glucose, Whole Blood 82 mg/dL (60-115)
--- NOTE | 2020-07-05 02:49 | PC.NURSE ---
07/05/20 @ 0250 :PT HAS SUBMITTED A 3 DAY NOTICE
[2020-07-05 06:48] LABS: Glucose, Whole Blood 74 mg/dL (60-115)
[2020-07-05 07:22] VITALS: BP 130/77; PULSE 67; TEMP 37
[2020-07-05] MEDS: Nicotine 21 MG PATCH.TD24 TRANSDERMA (08:40)
[2020-07-05] MEDS: Buprenorphine/Naloxone 8/2 mg FILM 1 FILM BUCCAL ×2 (08:42→22:16)
[2020-07-05] MEDS: Omeprazole 20 MG CAPSULE.DR PO (08:42)
[2020-07-05] MEDS: glipiZIDE 10 MG TABLET PO (08:42)
[2020-07-05] MEDS: TiZANidine HCL 4 MG TABLET PO ×2 (08:42→22:16)
[2020-07-05 08:43] VITALS: BP 141/86; PULSE 71
[2020-07-05] MEDS: metFORMIN HCl 1,000 MG TABLET 1000 MG PO ×2 (08:43→17:11)
[2020-07-05] MEDS: buPROPion HCl XL 150 MG TAB.ER.24H PO (08:43)
[2020-07-05] MEDS: Gabapentin 300 MG CAPSULE 600 MG PO ×3 (08:43→22:17)
[2020-07-05] MEDS: lisinopriL 20 MG TABLET PO (08:43)
[2020-07-05] MEDS: Finasteride 5 MG TABLET PO (08:43)
[2020-07-05 08:52] LABS: Estimated Average Glucose 163 mg/dL; Hemoglobin A1c % 7.3 %
[2020-07-05 09:04] LABS: Cholesterol 139 mg/dL; HDL Cholesterol 39 mg/dL; LDL Cholesterol Calculated 74 mg/dl; Magnesium 1.9 mg/dL (1.6-2.6); Triglycerides 132 mg/dL
[2020-07-05 09:25] LABS: Free T4 (Free Thyroxine) 0.92 ng/dL (0.71-1.85); Thyroid Stimulating Hormone 1.01 uIU/mL (0.32-4.0)
[2020-07-05] MEDS: LORazepam 1 MG TABLET 2 MG PO (15:30)
[2020-07-05 15:32] VITALS: BP 125/75; PULSE 105
--- NOTE | 2020-07-05 15:39 | P.PNPSI_ITS ---
Subjective Subjective Date of Service: 07/05/20 Reason For Visit: Alcohol/cocaine use disorder Subjective Notes: Conditional Voluntary Interim History: Isolative, not wanting to meet, denies any current issues. Appears withdrawn and depressed. Much time spent sleeping today. Medication Compliance: Yes Side effects from medications: No Review of Systems Review of Systems Yes all other systems are reviewed and are negative ( no ) Psychiatric: Reports irritability and Reports paranoia Mental Status Exam Mental Status Exam Patient Appearance: Fatigued Patient Orientation: Person, Place, Time and Situation Level of Consciousness: Sedated Patient Behavior: Guarded, Avoidant, Fatigued and Isolative Mood Description: Withdrawn Affect Description: Withdrawn Ability to Follow Directions: Fair Speech Pattern: Impoverished Thought Content: positive for [place] and positive for Poverty of Content Depressive Symptoms: Sleeping More Than Usual Judgement: Fair Diagnostics Vital Signs (24Hr): Vital Signs - 24 hr 07/05/20 07:22 07/05/20 08:43 07/05/20 15:32 Temperature 98.6 F Pulse Rate 67 71 105 H Blood Pressure 130/77 141/86 H 125/75 Body Mass Index 25.7 Labs Results: 07/03/20 13:09 07/03/20 13:09 Labs: Laboratory Results - last 48 hr 07/03/20 07/03/20 07/04/20 17:40 20:36 06:58 POC Glucose 109 142 H 94 Estimat Average Glucose Hemoglobin A1c % Magnesium Triglycerides Cholesterol LDL Cholesterol, Calc HDL Cholesterol TSH Free T4 07/04/20 07/05/20 07/05/20 21:07 06:40 08:19 POC Glucose 82 74 Estimat Average Glucose 163 Hemoglobin A1c % 7.3 Magnesium Triglycerides Cholesterol LDL Cholesterol, Calc HDL Cholesterol TSH Free T4 07/05/20 08:19 POC Glucose Estimat Average Glucose Hemoglobin A1c % Magnesium 1.9 Triglycerides 132 Cholesterol 139 LDL Cholesterol, Calc 74 HDL Cholesterol 39 TSH 1.01 Free T4 0.92 Medications Medications Current Medications Generic Name Dose Route Start Last Admin Trade Name Freq PRN Reason Stop Dose Admin Acetaminophen 650 mg 07/04/20 08:25 Acetaminophen 325 Mg Tablet PO Q6H PRN Headache/Pain Mild Scale (1-3) Al Hydroxide/Mg Hydroxide 30 ml 07/04/20 08:25 Magnesium Hydrox/Alum Hydrox 30 Ml Oral.Susp PO Q6H PRN Heartburn/Nausea Albuterol Sulfate 2 puff 07/03/20 13:59 Albuterol Sulfate 90 Mcg 8 Gm Inhaler INHALE Q4H PRN Shortness Of Breath Atorvastatin Calcium 10 mg 07/04/20 21:00 07/04/20 20:57 Atorvastatin Calcium 10 Mg Tablet PO 10 mg BEDTIME [facility] Administration Bisacodyl 5 mg 07/03/20 14:03 Bisacodyl 5 Mg Tablet.Dr PO BID PRN Constipation Buprenorphine/Naloxone 1 film 07/03/20 21:00 07/05/20 08:42 Buprenorphine/Naloxone 8/2 Mg Film BUCCAL 1 film BID [facility] Administration Bupropion HCl 150 mg 07/04/20 09:00 07/05/20 08:43 Bupropion Hcl Xl 150 Mg Tab.Er.24h PO 150 mg DAILY [facility] Administration Clonidine HCl 0.1 mg 07/03/20 13:59 07/04/20 00:02 Clonidine Hcl 0.1 Mg Tablet PO 0.1 mg BEDTIME PRN Administration Insomnia Protocol Docusate Sodium 100 mg 07/03/20 13:59 Docusate Sodium 100 Mg Capsule PO BID PRN Constipation Finasteride 5 mg 07/04/20 09:00 07/05/20 08:43 Finasteride 5 Mg Tablet PO 5 mg DAILY [facility] Administration Gabapentin 600 mg 07/03/20 15:00 07/05/20 15:30 Gabapentin 300 Mg Capsule PO 600 mg TID [facility] Administration Glipizide 10 mg 07/04/20 07:30 07/05/20 08:42 Glipizide 10 Mg Tablet PO 10 mg DAILY@0730 [facility] Administration Hydroxyzine HCl 50 mg 07/03/20 13:59 07/04/20 00:02 Hydroxyzine Hcl 50 Mg Tablet PO 50 mg TID PRN Administration Anxiety Ibuprofen 400 mg 07/03/20 13:59 Ibuprofen 400 Mg Tablet PO Q8H PRN Pain Insulin Glargine 70 unit 07/03/20 21:00 07/04/20 20:54 Insulin Glargine,Hum.Rec.Anlog 100 Unit/Ml 10 Ml Vial SUBCUT 70 unit BEDTIME [facility] Administration Lisinopril 20 mg 07/04/20 09:00 07/05/20 08:43 Lisinopril 20 Mg Tablet PO 20 mg DAILY [facility] Administration Protocol Lorazepam 2 mg 07/03/20 20:01 07/05/20 15:30 Lorazepam 1 Mg Tablet PO 2 mg Q6H PRN Administration Alcohol Withdrawal Magnesium Hydroxide 30 ml 07/04/20 08:25 Milk Of Magnesia 30 Ml Oral.Susp PO DAILY PRN Constipation Metformin HCl 1,000 mg 07/03/20 17:00 07/05/20 08:43 Metformin Hcl 1,000 Mg Tablet PO 1,000 mg BIDWM [facility] Administration Nicotine 21 mg 07/04/20 09:00 07/05/20 08:40 Nicotine 21 Mg Patch.Td24 TRANSDERMA 21 mg DAILY [facility] Administration Nicotine Polacrilex 2 mg 07/03/20 13:59 Nicotine Polacrilex 2 Mg Gum BUCCAL Q2H PRN Nicotine Cravings Olanzapine 5 mg 07/03/20 22:30 07/04/20 20:58 Olanzapine 5 Mg Tablet PO 5 mg BEDTIME [facility] Administration Omeprazole 20 mg 07/04/20 06:30 07/05/20 08:42 Omeprazole 20 Mg Capsule.Dr PO 20 mg DAILY@0630 [facility] Administration Polyethylene Glycol 1 gm 07/04/20 09:00 07/05/20 08:49 Polyethylene Glycol 3350 17 Gm Powd.Pack PO Not Given DAILY [facility] Tamsulosin HCl 0.4 mg 07/03/20 21:00 07/04/20 20:58 Tamsulosin Hcl 0.4 Mg Capsule PO 0.4 mg BEDTIME [facility] Administration Tizanidine HCl 4 mg 07/03/20 21:00 07/05/20 08:42 Tizanidine Hcl 4 Mg Tablet PO 4 mg BID [facility] Administration Trazodone HCl 100 mg 07/03/20 21:00 07/04/20 20:57 Trazodone Hcl 100 Mg Tablet PO 100 mg BEDTIME [facility] Administration Allergies Allergies Allergy/AdvReac Type Severity Reaction Status Date / Time buprenorphine [From Subutex] Allergy Angioedema Verified 06/24/20 18:27 Assessment & Plan Assessment & Plan (1) Schizophrenia: Qualifiers: Schizophrenia type: unspecified Qualified Code(s): F20.9 - Sc hizophrenia, unspecified Status: Acute Code(s): F20.9 - Schizophrenia, unspecified (2) Alcohol use: Status: Acute Code(s): Z72.89 - Other problems related to lifestyle (3) Cocaine use: Status: Acute Code(s): F14.90 - Cocaine use, unspecified, uncomplicated Greater than 50% of the session was spent on counseling and/or coordination of care Reason for contiued inpatient stay Substantial Risk for: harm to self, inability to function and rapid decompensation
[2020-07-05 16:00] VITALS: BP 111/58; PULSE 70; RESP 16; TEMP 37.4; O2SAT 98
[2020-07-05] MEDS: Acetaminophen 325 MG TABLET 650 MG PO (17:14)
[2020-07-05 19:19] VITALS: BP 111/58; PULSE 70; RESP 16; TEMP 37.4; O2SAT 98
[2020-07-05] MEDS: OLANZapine 5 MG TABLET PO (22:16)
[2020-07-05] MEDS: Atorvastatin Calcium 10 MG TABLET PO (22:16)
[2020-07-05] MEDS: traZODone HCL 100 MG TABLET PO (22:16)
[2020-07-05] MEDS: Tamsulosin HCL 0.4 MG CAPSULE PO (22:16)
[2020-07-05] MEDS: Insulin Glargine,Hum.rec.anlog 100 UNIT/ML 10 ML VIAL 70 UNIT SUBCUT (22:33)
[2020-07-05 22:47] LABS: Glucose, Whole Blood 83 mg/dL (60-115)
[2020-07-06 06:29] LABS: Glucose, Whole Blood 124 mg/dL (60-115)
[2020-07-06 07:11] VITALS: BP 102/59; PULSE 64; RESP 16; TEMP 36.9; O2SAT 98
--- NOTE | 2020-07-06 08:34 | P.PNPSI_ITS ---
Subjective Subjective Date of Service: 07/06/20 Reason For Visit: Alcohol/cocaine use disorder Subjective Notes: Conditional Voluntary Interim History: Pt today is avoidant and not wanting to meet, however he tells the team he is symptomatic and his medicine is not effective. When approached he is in bed-declines to meet-wanting to sleep- Reports perceptual alterations to team. Review of Systems Reports behavioral changes Psychiatric: Reports abnormal sleep pattern, Reports anxiety, Reports behavioral changes, Reports depression, Reports difficulty concentrating, Reports auditory hallucinations, Reports hopelessness, Reports irritability, Reports anhedonia, Reports mood swings and Reports suicidal ideation (denies current active SI) Mental Status Exam Mental Status Exam Patient Appearance: Fatigued Patient Orientation: Person, Place and Situation Level of Consciousness: Alert Patient Behavior: Guarded, Anxious, Fearful, Resistive to Care, Avoidant, Fatig ued and Isolative Mood Description: Withdrawn and Depressed Affect Description: Flat Ability to Follow Directions: Fair Speech Pattern: Impoverished and Spontaneous Speech Hallucinations: Auditory Thought Process: Distracted and Rumination Thought Content: positive for Perseveration Depressive Symptoms: Increased Irritability Judgement: Poor Diagnostics Vital Signs (24Hr): Vital Signs - 24 hr 07/05/20 08:43 07/05/20 15:32 07/05/20 16:00 Temperature 99.3 F Pulse Rate 71 105 H 70 Respiratory Rate 16 Blood Pressure 141/86 H 125/75 111/58 L Pulse Oximetry 98 07/05/20 19:19 07/06/20 07:11 Temperature 99.3 F 98.4 F Pulse Rate 70 64 Respiratory Rate 16 16 Blood Pressure 111/58 L 102/59 L Pulse Oximetry 98 98 Body Mass Index 25.7 Labs Results: 07/03/20 13:09 07/03/20 13:09 Labs: Laboratory Results - last 48 hr 07/04/20 07/05/20 07/05/20 21:07 06:40 08:19 POC Glucose 82 74 Estimat Average Glucose 163 Hemoglobin A1c % 7.3 Magnesium Triglycerides Cholesterol LDL Cholesterol, Calc HDL Cholesterol TSH Free T4 07/05/20 07/05/20 07/06/20 08:19 22:07 06:20 POC Glucose 83 124 H Estimat Average Glucose Hemoglobin A1c % Magnesium 1.9 Triglycerides 132 Cholesterol 139 LDL Cholesterol, Calc 74 HDL Cholesterol 39 TSH 1.01 Free T4 0.92 Medications Medications Current Medications Generic Name Dose Route Start Last Admin Trade Name Freq PRN Reason Stop Dose Admin Acetaminophen 650 mg 07/04/20 08:25 07/05/20 17:14 Acetaminophen 325 Mg Tablet PO 650 mg Q6H PRN Administration Headache/Pain Mild Scale (1-3) Al Hydroxide/Mg Hydroxide 30 ml 07/04/20 08:25 Magnesium Hydrox/Alum Hydrox 30 Ml Oral.Susp PO Q6H PRN Heartburn/Nausea Albuterol Sulfate 2 puff 07/03/20 13:59 Albuterol Sulfate 90 Mcg 8 Gm Inhaler INHALE Q4H PRN Shortness Of Breath Atorvastatin Calcium 10 mg 07/04/20 21:00 07/05/20 22:16 Atorvastatin Calcium 10 Mg Tablet PO 10 mg BEDTIME [facility] Administration Bisacodyl 5 mg 07/03/20 14:03 Bisacodyl 5 Mg Tablet.Dr PO BID PRN Constipation Buprenorphine/Naloxone 1 film 07/03/20 21:00 07/05/20 22:16 Buprenorphine/Naloxone 8/2 Mg Film BUCCAL 1 film BID [facility] Administration Bupropion HCl 150 mg 07/04/20 09:00 07/05/20 08:43 Bupropion Hcl Xl 150 Mg Tab.Er.24h PO 150 mg DAILY [facility] Administration Clonidine HCl 0.1 mg 07/03/20 13:59 07/04/20 00:02 Clonidine Hcl 0.1 Mg Tablet PO 0.1 mg BEDTIME PRN Administration Insomnia Protocol Docusate Sodium 100 mg 07/03/20 13:59 Docusate Sodium 100 Mg Capsule PO BID PRN Constipation Finasteride 5 mg 07/04/20 09:00 07/05/20 08:43 Finasteride 5 Mg Tablet PO 5 mg DAILY [facility] Administration Gabapentin 600 mg 07/03/20 15:00 07/05/20 22:17 Gabapentin 300 Mg Capsule PO 600 mg TID [facility] Administration Glipizide 10 mg 07/04/20 07:30 07/05/20 08:42 Glipizide 10 Mg Tablet PO 10 mg DAILY@0730 [facility] Administration Hydroxyzine HCl 50 mg 07/03/20 13:59 07/04/20 00:02 Hydroxyzine Hcl 50 Mg Tablet PO 50 mg TID PRN Administration Anxiety Ibuprofen 400 mg 07/03/20 13:59 Ibuprofen 400 Mg Tablet PO Q8H PRN Pain Insulin Glargine 70 unit 07/03/20 21:00 07/05/20 22:33 Insulin Glargine,Hum.Rec.Anlog 100 Unit/Ml 10 Ml Vial SUBCUT 70 unit BEDTIME [facility] Administration Lisinopril 20 mg 07/04/20 09:00 07/05/20 08:43 Lisinopril 20 Mg Tablet PO 20 mg DAILY [facility] Administration Protocol Lorazepam 2 mg 07/03/20 20:01 07/05/20 15:30 Lorazepam 1 Mg Tablet PO 2 mg Q6H PRN Administration Alcohol Withdrawal Magnesium Hydroxide 30 ml 07/04/20 08:25 Milk Of Magnesia 30 Ml Oral.Susp PO DAILY PRN Constipation Metformin HCl 1,000 mg 07/03/20 17:00 07/05/20 17:11 Metformin Hcl 1,000 Mg Tablet PO 1,000 mg BIDWM [facility] Administration Nicotine 21 mg 07/04/20 09:00 07/05/20 08:40 Nicotine 21 Mg Patch.Td24 TRANSDERMA 21 mg DAILY [facility] Administration Nicotine Polacrilex 2 mg 07/03/20 13:59 Nicotine Polacrilex 2 Mg Gum BUCCAL Q2H PRN Nicotine Cravings Olanzapine 5 mg 07/03/20 22:30 07/05/20 22:16 Olanzapine 5 Mg Tablet PO 5 mg BEDTIME [facility] Administration Omeprazole 20 mg 07/04/20 06:30 07/05/20 08:42 Omeprazole 20 Mg Capsule.Dr PO 20 mg DAILY@0630 [facility] Administration Tamsulosin HCl 0.4 mg 07/03/20 21:00 07/05/20 22:16 Tamsulosin Hcl 0.4 Mg Capsule PO 0.4 mg BEDTIME [facility] Administration Tizanidine HCl 4 mg 07/03/20 21:00 07/05/20 22:16 Tizanidine Hcl 4 Mg Tablet PO 4 mg BID [facility] Administration Trazodone HCl 100 mg 07/03/20 21:00 07/05/20 22:16 Trazodone Hcl 100 Mg Tablet PO 100 mg BEDTIME [facility] Administration Allergies Allergies Allergy/AdvReac Type Severity Reaction Status Date / Time buprenorphine [From Subutex] Allergy Angioedema Verified 06/24/20 18:27 Assessment & Plan Assessment & Plan (1) Schizophrenia: Qualifiers: Schizophrenia type: unspecified Qualified Code(s): F20.9 - Schizophrenia, unspecified Status: Acute Code(s): F20.9 - Schizophrenia, unspecified Assessment and Plan: -Increase Olanzapine to 10 mg HS for mgt of auditory perceptual alterations. (2) Alcohol use: Status: Acute Code(s): Z72.89 - Other problems related to lifestyle (3) Cocaine use: Status: Acute Code(s): F14.90 - Cocaine use, unspecified, uncomplicated Greater than 50% of the session was spent on counseling and/or coordination of care Reason for contiued inpatient stay Substantial Risk for: harm to self, harm to others, inability to function and rapid decompensation
[2020-07-06 08:38] VITALS: BP 141/85; PULSE 62
[2020-07-06] MEDS: Finasteride 5 MG TABLET PO (08:38)
[2020-07-06] MEDS: Gabapentin 300 MG CAPSULE 600 MG PO ×3 (08:38→22:08)
[2020-07-06] MEDS: buPROPion HCl XL 150 MG TAB.ER.24H PO (08:38)
[2020-07-06] MEDS: lisinopriL 20 MG TABLET PO (08:38)
[2020-07-06] MEDS: metFORMIN HCl 1,000 MG TABLET 1000 MG PO ×2 (08:38→16:59)
[2020-07-06] MEDS: Omeprazole 20 MG CAPSULE.DR PO (08:38)
[2020-07-06] MEDS: glipiZIDE 10 MG TABLET PO (08:38)
[2020-07-06] MEDS: Nicotine 21 MG PATCH.TD24 TRANSDERMA ×2 (08:39→22:58)
[2020-07-06] MEDS: TiZANidine HCL 4 MG TABLET PO ×2 (08:41→22:08)
[2020-07-06] MEDS: Buprenorphine/Naloxone 8/2 mg FILM 1 FILM BUCCAL ×2 (10:23→22:08)
[2020-07-06] MEDS: LORazepam 1 MG TABLET 2 MG PO ×2 (11:50→22:08)
[2020-07-06] MEDS: Ibuprofen 400 MG TABLET PO (11:51)
[2020-07-06 12:00] VITALS: BP 137/78; PULSE 98
[2020-07-06 16:00] VITALS: BP 148/77; PULSE 73; TEMP 36.6
[2020-07-06] MEDS: hydrOXYzine HCL 50 MG TABLET PO (16:59)
[2020-07-06] MEDS: Acetaminophen 325 MG TABLET 650 MG PO (17:04)
[2020-07-06 17:50] LABS: Glucose, Whole Blood 153 mg/dL (60-115)
[2020-07-06 20:00] VITALS: BP 148/77; PULSE 70; TEMP 36.6
[2020-07-06] MEDS: OLANZapine 10 MG TABLET PO (22:08)
[2020-07-06] MEDS: Atorvastatin Calcium 10 MG TABLET PO (22:09)
[2020-07-06] MEDS: Insulin Glargine,Hum.rec.anlog 100 UNIT/ML 10 ML VIAL 70 UNIT SUBCUT (22:09)
[2020-07-06] MEDS: traZODone HCL 100 MG TABLET PO (22:09)
[2020-07-06] MEDS: Tamsulosin HCL 0.4 MG CAPSULE PO (22:09)
[2020-07-06 22:17] LABS: Glucose, Whole Blood 129 mg/dL (60-115)
[2020-07-07 04:30] VITALS: BP 126/83; PULSE 73; TEMP 36.4; O2SAT 96
[2020-07-07] MEDS: Acetaminophen 325 MG TABLET 650 MG PO (04:36)
[2020-07-07 04:37] VITALS: BP 126/83; PULSE 73
[2020-07-07] MEDS: cloNIDine HCL 0.1 MG TABLET PO (04:37)
[2020-07-07 05:03] LABS: Glucose, Whole Blood 143 mg/dL (60-115)
[2020-07-07] MEDS: Nicotine 21 MG PATCH.TD24 TRANSDERMA (08:33)
[2020-07-07] MEDS: glipiZIDE 10 MG TABLET PO (08:34)
[2020-07-07] MEDS: Gabapentin 300 MG CAPSULE 600 MG PO ×3 (08:34→21:03)
[2020-07-07] MEDS: Buprenorphine/Naloxone 8/2 mg FILM 1 FILM BUCCAL ×2 (08:34→21:54)
[2020-07-07] MEDS: TiZANidine HCL 4 MG TABLET PO ×2 (08:34→21:02)
[2020-07-07] MEDS: Omeprazole 20 MG CAPSULE.DR PO (08:34)
[2020-07-07] MEDS: Finasteride 5 MG TABLET PO (08:34)
[2020-07-07 08:35] VITALS: BP 115/70; PULSE 62
[2020-07-07] MEDS: buPROPion HCl XL 150 MG TAB.ER.24H PO (08:35)
[2020-07-07] MEDS: lisinopriL 20 MG TABLET PO (08:35)
[2020-07-07] MEDS: metFORMIN HCl 1,000 MG TABLET 1000 MG PO ×2 (08:35→16:55)
[2020-07-07 08:39] LABS: Folate 12.8 ng/mL (> or = 4.0); Vitamin B12 356 pg/mL (200-900)
[2020-07-07 12:00] VITALS: BP 115/70; PULSE 62
--- NOTE | 2020-07-07 14:41 | HO.PSYCHPN ---
Subjective Subjective Date of Service: 07/07/20 Reason For Visit: Alcohol/cocaine use disorder Interim History: The patient reported that he is better than yesterday, he denies acitve auditory hallucinations, no new symptoms. As per nursing, no evidence of withdrawal symptoms at this moment. During the interview, he wanted to be discharged since he has an active warrant and he needs to go to court. He is able to contract for safety at this moment. Medication Compliance: Yes Side effects from medications: No Attending Groups: Intermittent Review of Systems Review of Systems Yes all other systems are reviewed and are negative Mental Status Exam Mental Status Exam Patient Appearance: Disheveled Patient Orientation: Person, Place, Time and Situation Level of Consciousness: Awake Patient Behavior: Appropriate Mood Description: Calm Affect Description: Withdrawn Patient Cognition Impaired: No Ability to Follow Directions: Good Speech Pattern: Clear Hallucinations: None Delusions: Not Present Thought Process: Intact Thought Content: positive for Circumstantial Judgement: Poor Judgement and Insight: Insight improved Diagnostics Vital Signs (24Hr): Vital Signs - 24 hr 07/06/20 16:00 07/06/20 20:00 07/07/20 04:30 Temperature 97.9 F 97.8 F 97.6 F Pulse Rate 73 70 73 Blood Pressure 148/77 H 148/77 H 126/83 Pulse Oximetry 96 07/07/20 04:37 07/07/20 08:35 Temperature Pulse Rate 73 62 Blood Pressure 126/83 115/70 Pulse Oximetry Body Mass Index 25.7 Labs Results: 07/03/20 13:09 07/03/20 13:09 Labs: Laboratory Results - last 48 hr 07/05/20 07/05/20 07/06/20 08:19 22:07 06:20 POC Glucose 83 124 H Vitamin B12 356 Folate 12.8 07/06/20 07/06/20 07/07/20 16:33 22:06 04:59 POC Glucose 153 H 129 H 143 H Vitamin B12 Folate Medications Medications Current Medications Generic Name Dose Route Start Last Admin Trade Name Freq PRN Reason Stop Dose Admin Acetaminophen 650 mg 07/04/20 08:25 07/07/20 04:36 Acetaminophen 325 Mg Tablet PO 650 mg Q6H PRN Administration Headache/Pain Mild Scale (1-3) Al Hydroxide/Mg Hydroxide 30 ml 07/04/20 08:25 Magnesium Hydrox/Alum Hydrox 30 Ml Oral.Susp PO Q6H PRN Heartburn/Nausea Albuterol Sulfate 2 puff 07/03/20 13:59 Albuterol Sulfate 90 Mcg 8 Gm Inhaler INHALE Q4H PRN Shortness Of Breath Atorvastatin Calcium 10 mg 07/04/20 21:00 07/06/20 22:09 Atorvastatin Calcium 10 Mg Tablet PO 10 mg BEDTIME SHABBIR Administration Bisacodyl 5 mg 07/03/20 14:03 Bisacodyl 5 Mg Tablet.Dr PO BID PRN Constipation Buprenorphine/Naloxone 1 film 07/03/20 21:00 07/07/20 08:34 Buprenorphine/Naloxone 8/2 Mg Film BUCCAL 1 film BID SHABBIR Administration Bupropion HCl 150 mg 07/04/20 09:00 07/07/20 08:35 Bupropion Hcl Xl 150 Mg Tab.Er.24h PO 150 mg DAILY SHABBIR Administration Clonidine HCl 0.1 mg 07/03/20 13:59 07/07/20 04:37 Clonidine Hcl 0.1 Mg Tablet PO 0.1 mg BEDTIME PRN Administration Insomnia Protocol Docusate Sodium 100 mg 07/03/20 13:59 Docusate Sodium 100 Mg Capsule PO BID PRN Constipation Finasteride 5 mg 07/04/20 09:00 07/07/20 08:34 Finasteride 5 Mg Tablet PO 5 mg DAILY SHABBIR Administration Gabapentin 600 mg 07/03/20 15:00 07/07/20 08:34 Gabapentin 300 Mg Capsule PO 600 mg TID SHABBIR Administration Glipizide 10 mg 07/04/20 07:30 07/07/20 08:34 Glipizide 10 Mg Tablet PO 10 mg DAILY@0730 SHABBIR Administration Hydroxyzine HCl 50 mg 07/03/20 13:59 07/06/20 16:59 Hydroxyzine Hcl 50 Mg Tablet PO 50 mg TID PRN Administration Anxiety Ibuprofen 400 mg 07/03/20 13:59 07/06/20 11:51 Ibuprofen 400 Mg Tablet PO 400 mg Q8H PRN Administration Pain Insulin Glargine 70 unit 07/03/20 21:00 07/06/20 22:09 Insulin Glargine,Hum.Rec.Anlog 100 Unit/Ml 10 Ml Vial SUBCUT 70 unit BEDTIME SHABBIR Administration Lisinopril 20 mg 07/04/20 09:00 07/07/20 08:35 Lisinopril 20 Mg Tablet PO 20 mg DAILY SHABBIR Administration Protocol Lorazepam 2 mg 07/03/20 20:01 07/06/20 22:08 Lorazepam 1 Mg Tablet PO 2 mg Q6H PRN Administration Alcohol Withdrawal Magnesium Hydroxide 30 ml 07/04/20 08:25 Milk Of Magnesia 30 Ml Oral.Susp PO DAILY PRN Constipation Metformin HCl 1,000 mg 07/03/20 17:00 07/07/20 08:35 Metformin Hcl 1,000 Mg Tablet PO 1,000 mg BIDWM SHABBIR Administration Nicotine 21 mg 07/04/20 09:00 07/07/20 08:33 Nicotine 21 Mg Patch.Td24 TRANSDERMA 21 mg DAILY SHABBIR Administration Nicotine Polacrilex 2 mg 07/03/20 13:59 Nicotine Polacrilex 2 Mg Gum BUCCAL Q2H PRN Nicotine Cravings Olanzapine 10 mg 07/06/20 21:00 07/06/20 22:08 Olanzapine 10 Mg Tablet PO 10 mg BEDTIME SHABBIR Administration Omeprazole 20 mg 07/04/20 06:30 07/07/20 08:34 Omeprazole 20 Mg Capsule.Dr PO 20 mg DAILY@0630 SHABBIR Administration Tamsulosin HCl 0.4 mg 07/03/20 21:00 07/06/20 22:09 Tamsulosin Hcl 0.4 Mg Capsule PO 0.4 mg BEDTIME SHABBIR Administration Tizanidine HCl 4 mg 07/03/20 21:00 07/07/20 08:34 Tizanidine Hcl 4 Mg Tablet PO 4 mg BID SHABBIR Administration Trazodone HCl 100 mg 07/03/20 21:00 07/06/20 22:09 Trazodone Hcl 100 Mg Tablet PO 100 mg BEDTIME SHABBIR Administration Allergies Allergies Allergy/AdvReac Type Severity Reaction Status Date / Time buprenorphine [From Subutex] Allergy Angioedema Verified 06/24/20 18:27 Assessment & Plan Assessment & Plan (1) Schizophrenia: Qualifiers: Schizophrenia type: unspecified Qualified Code(s): F20.9 - Schizophrenia, unspecified Status: Acute Code(s): F20.9 - Schizophrenia, unspecified Assessment and Plan: No evidence of acute psychosis (2) Alcohol use: Status: Acute Code(s): Z72.89 - Other problems related to lifestyle Assessment and Plan: No evidence of alcohol withrdrawal symptoms, VS stable (3) Cocaine use: Status: Acute Code(s): F14.90 - Cocaine use, unspecified, uncomplicated Assessment and Plan: Denies cravings Greater than 50% of the session was spent on counseling and/or coordination of care Reason for contiued inpatient stay Substantial Risk for: inability to function
[2020-07-07 16:00] VITALS: BP 146/81; PULSE 76; TEMP 37.2
[2020-07-07 20:00] VITALS: BP 146/81; PULSE 76; TEMP 37.2
[2020-07-07] MEDS: traZODone HCL 100 MG TABLET PO (21:02)
[2020-07-07] MEDS: Atorvastatin Calcium 10 MG TABLET PO (21:02)
[2020-07-07] MEDS: Tamsulosin HCL 0.4 MG CAPSULE PO (21:03)
[2020-07-07] MEDS: OLANZapine 10 MG TABLET PO (21:03)
[2020-07-07] MEDS: Insulin Glargine,Hum.rec.anlog 100 UNIT/ML 10 ML VIAL 70 UNIT SUBCUT (21:54)
[2020-07-07 22:32] LABS: Glucose, Whole Blood 102 mg/dL (60-115)
[2020-07-08] VITALS: RESP 16
[2020-07-08 04:00] VITALS: RESP 16
[2020-07-08 05:23] VITALS: RESP 16
[2020-07-08 06:35] VITALS: BP 130/78; PULSE 63; RESP 18; TEMP 36.9; O2SAT 95
[2020-07-08] MEDS: Omeprazole 20 MG CAPSULE.DR PO (06:43)
[2020-07-08 07:00] LABS: Glucose, Whole Blood 127 mg/dL (60-115)
[2020-07-08] MEDS: glipiZIDE 10 MG TABLET PO (08:03)
[2020-07-08] MEDS: Gabapentin 300 MG CAPSULE 600 MG PO ×3 (08:03→20:21)
[2020-07-08] MEDS: Buprenorphine/Naloxone 8/2 mg FILM 1 FILM BUCCAL ×2 (08:03→20:22)
[2020-07-08] MEDS: metFORMIN HCl 1,000 MG TABLET 1000 MG PO ×2 (08:03→17:00)
[2020-07-08] MEDS: TiZANidine HCL 4 MG TABLET PO ×2 (08:03→20:24)
[2020-07-08] MEDS: buPROPion HCl XL 150 MG TAB.ER.24H PO (08:03)
[2020-07-08 08:04] VITALS: BP 127/77; PULSE 87
[2020-07-08] MEDS: lisinopriL 20 MG TABLET PO (08:04)
[2020-07-08] MEDS: Finasteride 5 MG TABLET PO (08:04)
[2020-07-08] MEDS: Nicotine 21 MG PATCH.TD24 TRANSDERMA (08:04)
[2020-07-08 10:11] LABS: Glucose, Whole Blood 120 mg/dL (60-115)
[2020-07-08] MEDS: Acetaminophen 325 MG TABLET 650 MG PO (14:20)
--- NOTE | 2020-07-08 14:38 | P.PNPSI_ITS ---
Subjective Subjective Date of Service: 07/08/20 Reason For Visit: Alcohol/cocaine use disorder Interim History: Pt reports decreased symptoms of depression. he denies SI/HI. he also denies VH/AH. He reports AH even when not using cocaine. He reports sleeping and eating well. he has been visible in the unit, social with select peers. No behavioral concerns. Review of Systems Review of Systems Yes all other systems are reviewed and are negative Constitutional: Reports no additional constitutional complaints, Denies body ache(s), Denies chills, Denies fever(s), Denies headache(s) and Denies weakness Eyes: Reports no additional eye complaints and Denies change in vision Reports system reviewed and no additional complaints, except as documented, Denies dizziness, Denies headache(s), Denies nasal congestion, Denies nasal discharge and Denies neck pain Cardiovascular: Reports no additional cardiovascular complaints, Denies chest pain, Denies leg edema and Denies dyspnea Respiratory: Reports no additional respiratory complaints, Denies cough and Denies dyspnea Gastrointestinal: Reports no additional gastrointestinal complaints, Denies abdominal pain, Denies diarrhea, Denies nausea and Denies vomiting Genitourinary: Denies urinary incontinence Musculoskeletal: Reports no additional musculoskeletal complaints, Denies back pain, Denies arthralgias, Denies joint swelling, Denies neck pain, Denies numbness and Denies tingling Skin/Breast: Reports system reviewed and no additional complaints, except as docu and Denies rash Reports system reviewed and no additional complaints, except as documented, Denies Abnormal speech present, Reports behavioral changes, Denies dizziness, Denies headache(s), Denies numbness, Denies tingling and Denies weakness Psychiatric: Reports abnormal sleep pattern, Reports anxiety, Reports behavioral changes, Reports depression, Reports difficulty concentrating, Reports auditory hallucinations, Reports hopelessness, Reports irritability, Reports anhedonia, R eports mood swings, Reports paranoia, Denies visual hallucinations, Denies hallucinations, Denies tactile hallucinations, Denies homicidal ideation and Reports suicidal ideation (denies current active SI) Mental Status Exam Mental Status Exam Narrative: Appearance: casually groomed, g hygiene, in NAD Behavior: calm, cooperative Psychomotor: no agitation or retardation noted Speech: clear, normal rate/rhythm/volume, spontaneous TP: linear TC: no signs of psychosis, future oriented, no SI/HI Mood: better Affect: congruent, non labile SI:denies HI:denies AH/VH:denies Delusions:does not appear internally preoccupied Insight/judgment:poor x 2 Memory/cog: alert, oriented x 3. grossly intact to conversational testing. Diagnostics Vital Signs (24Hr): Vital Signs - 24 hr 07/07/20 16:00 07/07/20 20:00 07/08/20 00:00 Temperature 98.9 F 98.9 F Pulse Rate 76 76 Respiratory Rate 16 Blood Pressure 146/81 H 146/81 H Pulse Oximetry 07/08/20 04:00 07/08/20 05:23 07/08/20 06:35 Temperature 98.5 F Pulse Rate 63 Respiratory Rate 16 16 18 Blood Pressure 130/78 Pulse Oximetry 95 07/08/20 08:04 Temperature Pulse Rate 87 Respiratory Rate Blood Pressure 127/77 Pulse Oximetry Body Mass Index 25.7 Labs Results: 07/03/20 13:09 07/03/20 13:09 Labs: Laboratory Results - last 48 hr 07/04/20 07/05/20 07/06/20 04:09 08:19 16:33 POC Glucose 120 H 153 H Vitamin B12 356 Folate 12.8 07/06/20 07/07/20 07/07/20 22:06 04:59 20:54 POC Glucose 129 H 143 H 102 Vitamin B12 Folate 07/08/20 06:47 POC Glucose 127 H Vitamin B12 Folate Medications Medications Current Medications Generic Name Dose Route Start Last Admin Trade Name Freq PRN Reason Stop Dose Admin Acetaminophen 650 mg 07/04/20 08:25 07/08/20 14:20 Acetaminophen 325 Mg Tablet PO 650 mg Q6H PRN Administration Headache/Pain Mild Scale (1-3) Al Hydroxide/Mg Hydroxide 30 ml 07/04/20 08:25 Magnesium Hydrox/Alum Hydrox 30 Ml Oral.Susp PO Q6H PRN Heartburn/Nausea Albuterol Sulfate 2 puff 07/03/20 13:59 Albuterol Sulfate 90 Mcg 8 Gm Inhaler INHALE Q4H PRN Shortness Of Breath Atorvastatin Calcium 10 mg 07/04/20 21:00 07/07/20 21:02 Atorvastatin Calcium 10 Mg Tablet PO 10 mg BEDTIME SHABBIR Administration Bisacodyl 5 mg 07/03/20 14:03 Bisacodyl 5 Mg Tablet.Dr PO BID PRN Constipation Buprenorphine/Naloxone 1 film 07/03/20 21:00 07/08/20 08:03 Buprenorphine/Naloxone 8/2 Mg Film BUCCAL 1 film BID SHABBIR Administration Bupropion HCl 150 mg 07/04/20 09:00 07/08/20 08:03 Bupropion Hcl Xl 150 Mg Tab.Er.24h PO 150 mg DAILY SHABBIR Administration Clonidine HCl 0.1 mg 07/03/20 13:59 07/07/20 04:37 Clonidine Hcl 0.1 Mg Tablet PO 0.1 mg BEDTIME PRN Administration Insomnia Protocol Docusate Sodium 100 mg 07/03/20 13:59 Docusate Sodium 100 Mg Capsule PO BID PRN Constipation Finasteride 5 mg 07/04/20 09:00 07/08/20 08:04 Finasteride 5 Mg Tablet PO 5 mg DAILY SHABBIR Administration Gabapentin 600 mg 07/03/20 15:00 07/08/20 14:20 Gabapentin 300 Mg Capsule PO 600 mg TID SHABBIR Administration Glipizide 10 mg 07/04/20 07:30 07/08/20 08:03 Glipizide 10 Mg Tablet PO 10 mg DAILY@0730 SHABBIR Administration Hydroxyzine HCl 50 mg 07/03/20 13:59 07/06/20 16:59 Hydroxyzine Hcl 50 Mg Tablet PO 50 mg TID PRN Administration Anxiety Ibuprofen 400 mg 07/03/20 13:59 07/06/20 11:51 Ibuprofen 400 Mg Tablet PO 400 mg Q8H PRN Administration Pain Insulin Glargine 70 unit 07/03/20 21:00 07/07/20 21:54 Insulin Glargine,Hum.Rec.Anlog 100 Unit/Ml 10 Ml Vial SUBCUT 70 unit BEDTIME SHABBIR Administration Lisinopril 20 mg 07/04/20 09:00 07/08/20 08:04 Lisinopril 20 Mg Tablet PO 20 mg DAILY SHABBIR Administration Protocol Lorazepam 2 mg 07/03/20 20:01 07/06/20 22:08 Lorazepam 1 Mg Tablet PO 2 mg Q6H PRN Administration Alcohol Withdrawal Magnesium Hydroxide 30 ml 07/04/20 08:25 Milk Of Magnesia 30 Ml Oral.Susp PO DAILY PRN Constipation Metformin HCl 1,000 mg 07/03/20 17:00 07/08/20 08:03 Metformin Hcl 1,000 Mg Tablet PO 1,000 mg BIDWM SHABBIR Administration Nicotine 21 mg 07/04/20 09:00 07/08/20 08:04 Nicotine 21 Mg Patch.Td24 TRANSDERMA 21 mg DAILY SHABBIR Administration Nicotine Polacrilex 2 mg 07/03/20 13:59 Nicotine Polacrilex 2 Mg Gum BUCCAL Q2H PRN Nicotine Cravings Olanzapine 10 mg 07/06/20 21:00 07/07/20 21:03 Olanzapine 10 Mg Tablet PO 10 mg BEDTIME SHABBIR Administration Omeprazole 20 mg 07/04/20 06:30 07/08/20 06:43 Omeprazole 20 Mg Capsule.Dr PO 20 mg DAILY@0630 SHABBIR Administration Tamsulosin HCl 0.4 mg 07/03/20 21:00 07/07/20 21:03 Tamsulosin Hcl 0.4 Mg Capsule PO 0.4 mg BEDTIME SHABBIR Administration Tizanidine HCl 4 mg 07/03/20 21:00 07/08/20 08:03 Tizanidine Hcl 4 Mg Tablet PO 4 mg BID SHABBIR Administration Trazodone HCl 100 mg 07/03/20 21:00 07/07/20 21:02 Trazodone Hcl 100 Mg Tablet PO 100 mg BEDTIME SHABBIR Administration Allergies Allergies Allergy/AdvReac Type Severity Reaction Status Date / Time buprenorphine [From Subutex] Allergy Angioedema Verified 06/24/20 18:27 Assessment & Plan Assessment & Plan (1) Schizophrenia: Qualifiers: Schizophrenia type: unspecified Qualified Code(s): F20.9 - Schizophrenia, unspecified Status: Acute Code(s): F20.9 - Schizophrenia, unspecified Assessment and Plan: No evidence of acute psychosis (2) Alcohol use: Status: Acute Code(s): Z72.89 - Other problems related to lifestyle Assessment and Plan: No evidence of alcohol withrdrawal symptoms, VS stable (3) Cocaine use: Status: Acute Code(s): F14.90 - Cocaine use, unspecified, uncomplicated Assessment and Plan: Denies cravings Greater than 50% of the session was spent on counseling and/or coordination of care Reason for contiued inpatient stay Substantial Risk for: stable for discharge
[2020-07-08 19:30] VITALS: BP 129/82; PULSE 66; TEMP 36.4
[2020-07-08 20:18] LABS: Glucose, Whole Blood 130 mg/dL (60-115)
[2020-07-08] MEDS: OLANZapine 10 MG TABLET PO (20:21)
[2020-07-08] MEDS: Atorvastatin Calcium 10 MG TABLET PO (20:21)
[2020-07-08] MEDS: traZODone HCL 100 MG TABLET PO (20:21)
[2020-07-08] MEDS: Tamsulosin HCL 0.4 MG CAPSULE PO (20:22)
[2020-07-08] MEDS: Insulin Glargine,Hum.rec.anlog 100 UNIT/ML 10 ML VIAL 70 UNIT SUBCUT (20:26)
[2020-07-09 06:28] VITALS: BP 121/68; PULSE 62; RESP 16; TEMP 36.9; O2SAT 96
[2020-07-09 06:44] LABS: Glucose, Whole Blood 101 mg/dL (60-115)
[2020-07-09] MEDS: glipiZIDE 10 MG TABLET PO (08:22)
[2020-07-09] MEDS: TiZANidine HCL 4 MG TABLET PO (08:22)
[2020-07-09 08:23] VITALS: BP 147/84; PULSE 80
[2020-07-09] MEDS: Omeprazole 20 MG CAPSULE.DR PO (08:23)
[2020-07-09] MEDS: metFORMIN HCl 1,000 MG TABLET 1000 MG PO (08:23)
[2020-07-09] MEDS: buPROPion HCl XL 150 MG TAB.ER.24H PO (08:23)
[2020-07-09] MEDS: Nicotine 21 MG PATCH.TD24 TRANSDERMA (08:23)
[2020-07-09] MEDS: lisinopriL 20 MG TABLET PO (08:23)
[2020-07-09] MEDS: Buprenorphine/Naloxone 8/2 mg FILM 1 FILM BUCCAL (08:23)
[2020-07-09] MEDS: Gabapentin 300 MG CAPSULE 600 MG PO (08:23)
[2020-07-09] MEDS: Finasteride 5 MG TABLET PO (08:23)
--- NOTE | 2020-07-09 09:58 | P.DS_ITS ---
DS: Providers Provider Date of Service: 07/09/20 Date of admission: 07/03/20 22:28 Primary care physician: Pato Shaikh MD DS: Diagnosis Discharge Diagnosis (1) Schizophrenia: Status: Deleted (2) Alcohol use: Status: Acute (3) Cocaine use: Status: Acute DS: Medications Discharge Medications Home Medications: Home Medications Medication Instructions Recorded Confirmed albuterol sulfate 2 puff INHALATION Q4-6H PRN 06/13/20 07/03/20 buprenorphine-naloxone [Suboxone] 1 film BUCCAL BID 06/13/20 07/03/20 glipizide 10 mg PO DAILY 06/13/20 07/03/20 omeprazole 20 mg PO DAILY 06/13/20 07/03/20 Lantus U-100 Insulin 70 unit SUBCUT BEDTIME 07/03/20 07/03/20 clonidine HCl 0.1 mg PO BEDTIME PRN 07/03/20 07/03/20 lisinopril 20 mg PO DAILY 07/03/20 07/03/20 tizanidine 4 mg PO BID 07/03/20 07/03/20 atorvastatin 20 mg PO DAILY 07/04/20 07/04/20 Previous Rx's Medication Instructions Recorded bupropion HCl [Wellbutrin XL] 150 mg PO DAILY #7 tab 06/27/20 bisacodyl 5 mg PO BID PRN 30 Days tab 07/09/20 docusate sodium 100 mg PO BID PRN 30 Days #60 cap 07/09/20 finasteride [Proscar] 5 mg PO DAILY 30 Days #30 tab 07/09/20 gabapentin 600 mg PO TID 30 Days #180 cap 07/09/20 metformin 1,000 mg PO BIDWM 30 Days #60 tab 07/09/20 nicotine 21 mg TRANSDERMAL DAILY 30 Days 07/09/20 #30 ea olanzapine 10 mg PO BEDTIME 30 Days #30 tab 07/09/20 tamsulosin 0.4 mg PO BEDTIME 30 Days #30 cap 07/09/20 trazodone 100 mg PO BEDTIME 30 Days #30 tab 07/09/20 Discharge Plan Discharge Patient Disposition: Home, Self-Care Referrals: Kerry Tapia APRN, [facility] [Other] - 07/22/20 12:30 pm Giovanny Vergara, therapist, [facility] [Other] [facility] [Other] - 07/09/20 1:15 pm JOE EASON, THERAPIST [Other] (TELEHEALTH) Pato Gastelum MD [Primary Care Provider] - 07/17/20 9:30 am (VIA PHONE) Discharge Medications: New olanzapine 10 mg Tablet 10 mg PO BEDTIME 30 Days Qty: 30 RF: 0 tamsulosin 0.4 mg Capsule 0.4 mg PO BEDTIME 30 Days Qty: 30 RF: 0 trazodone 100 mg Tablet 100 mg PO BEDTIME 30 Days Qty: 30 RF: 0 metformin 1,000 mg Tablet 1,000 mg PO BIDWM 30 Days Qty: 60 RF: 0 nicotine 21 mg/24 hr Patch 24 Hour 21 mg transdermal DAILY 30 Days Qty: 30 RF: 0 docusate sodium 100 mg Capsule 100 mg PO BID PRN (Reason: Constipation) 30 Days Qty: 60 RF: 0 gabapentin 300 mg Capsule 600 mg PO TID 30 Days Qty: 180 RF: 0 bisacodyl 5 mg Tablet,Delayed Release (Dr/Ec) 5 mg PO BID PRN (Reason: Constipation) 30 Days RF: 0 finasteride [Proscar] 5 mg Tablet 5 mg PO DAILY 30 Days Qty: 30 RF: 0 Continued clonidine HCl 0.1 mg Tablet 0.1 mg PO BEDTIME PRN (Reason: Insomnia) RF: 0 lisinopril 20 mg Tablet 20 mg PO DAILY RF: 0 tizanidine 4 mg Capsule 4 mg PO BID RF: 0 Lantus U-100 Insulin 100 unit/mL solution 70 unit subcut BEDTIME RF: 0 atorvastatin 20 mg tablet 20 mg PO DAILY RF: 0 glipizide 10 mg Tablet 10 mg PO DAILY RF: 0 omeprazole 20 mg Capsule,Delayed Release(Dr/Ec) 20 mg PO DAILY RF: 0 albuterol sulfate 90 mcg/actuation Hfa Aerosol Inhaler 2 puff INHALATION Q4-6H PRN (Reason: Shortness Of Breath) RF: 0 buprenorphine-naloxone [Suboxone] 8-2 mg Film 1 film BUCCAL BID RF: 0 bupropion HCl [Wellbutrin XL] 150 mg Tablet Extended Release 24 Hr 150 mg PO DAILY Qty: 7 RF: 0 Discontinued olanzapine 5 mg Tablet 5 mg PO BEDTIME RF: 0 hydroxyzine pamoate 50 mg capsule 1 cap PO TID PRN (Reason: Anxiety) RF: 0 tamsulosin 0.4 mg Capsule 0.4 mg PO BEDTIME RF: 0 simvastatin 20 mg Tablet 20 mg PO BEDTIME RF: 0 ibuprofen 400 mg Tablet 400 mg PO Q8H PRN (Reason: Pain) RF: 0 docusate sodium [Colace] 100 mg Capsule 100 mg PO BID PRN (Reason: Constipation) RF: 0 triamterene-hydrochlorothiazid 37.5-25 mg Tablet 1 tab PO DAILY RF: 0 polyethylene glycol 3350 [ClearLax] 17 gram/dose powder 1 g PO DAILY RF: 0 finasteride 5 mg Tablet 5 mg PO DAILY RF: 0 bisacodyl 5 mg Tablet 5 mg PO BID PRN (Reason: Constipation) RF: 0 gabapentin 300 mg capsule 600 mg PO TID RF: 0 nicotine (polacrilex) 2 mg Gum 2 mg BUCCAL Q2H PRN (Reason: Nicotine Cravings) RF: 0 trazodone 100 mg Tablet 100 mg PO BEDTIME RF: 0 metformin 1,000 mg Tablet 1,000 mg PO BIDWM RF: 0 nicotine [Nicoderm CQ] 21 mg/24 hr Patch 24 Hour 1 patch TRANSDERMAL DAILY RF: 0 Discharge Orders: Discharge Order (Routine); Ordered 07/09/20 Ordered By: Mary Ann Gray Diet: regular diet Activity on Discharge: As tolerated Stand Alone Forms: Patient Portal Discharge page Care Plan Goals: 1. Follow up with referrals Health Concerns: 1. Follow up with PCP Plan of Treatment: 1. Take medications as prescribed. Mental Status Exam Mental Status Exam Narrative: Appearance: casually groomed, good hygiene, in NAD Behavior: calm, cooperative Psychomotor: no agitation or retardation noted Speech: clear, normal rate/rhythm/volume, spontaneous TP: linear TC: no signs of psychosis, future oriented, no SI/HI Mood: better Affect: congruent, non labile SI:denies HI:denies AH/VH:denies Delusions:does not appear internally preoccupied Insight/judgment:poor x 2 Memory/cog: alert, oriented x 3. grossly intact to conversational testing. Data Data Completed and Pending Completed studies during hospitalization [Text1]: 07/03/20 07/03/20 07/03/20 12:02 13:09 13:09 WBC 7.2 RBC 4.27 L Hgb 12.3 L Hct 37.5 L MCV 87.8 MCH 28.8 MCHC 32.8 RDW 13.8 Plt Count 324 MPV 9.1 L Immature Gran % (Auto) 0.1 Neut % (Auto) 65.3 Lymph % (Auto) 25.2 [place] % (Auto) 8.4 Eos % (Auto) 0.7 Baso % (Auto) 0.3 Lymph # (Auto) 1.8 [place] # (Auto) 0.6 Eos # (Auto) 0.1 Baso # (Auto) 0.0 Abs Immat Gran (auto) 0.01 Absolute Neuts (auto) 4.7 Absolute Nucleated RBC 0.000 Nucleated RBC % (auto) 0.0 Sodium 138 Potassium 3.8 Chloride 100 Carbon Dioxide 26 Anion Gap 16 BUN 10 Creatinine 0.89 Estim Creat Clear Calc 117.4 Estimated GFR > 60 POC Glucose 203 H Random Glucose 221 H D Estimat Average Glucose Hemoglobin A1c % Calcium 8.7 Magnesium Total Bilirubin 0.3 Direct Bilirubin 0.3 AST 41 H ALT 38 Alkaline Phosphatase 53 D Total Protein 6.6 Albumin 3.8 Triglycerides Cholesterol LDL Cholesterol, Calc HDL Cholesterol Vitamin B12 Folate TSH Free T4 Salicylates Urine Opiates Screen Acetaminophen Ur Barbiturates Screen Ur Phencyclidine Scrn Ur Amphetamines Screen U Benzodiazepines Scrn Urine Cocaine Screen U Marijuana (THC) Screen Ethyl Alcohol COVID-19 ([facility]IO) COVID-19 Clin Com 07/03/20 07/03/20 07/03/20 13:09 13:09 13:09 WBC RBC Hgb Hct MCV MCH MCHC RDW Plt Count MPV Immature Gran % (Auto) Neut % (Auto) Lymph % (Auto) [place] % (Auto) Eos % (Auto) Baso % (Auto) Lymph # (Auto) [place] # (Auto) Eos # (Auto) Baso # (Auto) Abs Immat Gran (auto) Absolute Neuts (auto) Absolute Nucleated RBC Nucleated RBC % (auto) Sodium Potassium Chloride Carbon Dioxide Anion Gap BUN Creatinine Estim Creat Clear Calc Estimated GFR POC Glucose Random Glucose Estimat Average Glucose Hemoglobin A1c % Calcium Magnesium Total Bilirubin Direct Bilirubin AST ALT Alkaline Phosphatase Total Protein Albumin Triglycerides Cholesterol LDL Cholesterol, Calc HDL Cholesterol Vitamin B12 Folate TSH Free T4 Salicylates < 5.0 L Urine Opiates Screen Acetaminophen < 1 Ur Barbiturates Screen Ur Phencyclidine Scrn Ur Amphetamines Screen U Benzodiazepines Scrn Urine Cocaine Screen U Marijuana (THC) Screen Ethyl Alcohol < 10 COVID-19 ([facility]IO) Negative COVID-19 [facility] Com See Note 07/03/20 07/03/20 07/03/20 13:09 17:40 20:36 WBC RBC Hgb Hct MCV MCH MCHC RDW Plt Count MPV Immature Gran % (Auto) Neut % (Auto) Lymph % (Auto) [place] % (Auto) Eos % (Auto) Baso % (Auto) Lymph # (Auto) [place] # (Auto) Eos # (Auto) Baso # (Auto) Abs Immat Gran (auto) Absolute Neuts (auto) Absolute Nucleated RBC Nucleated RBC % (auto) Sodium Potassium Chloride Carbon Dioxide Anion Gap BUN Creatinine Estim Creat Clear Calc Estimated GFR POC Glucose 109 142 H Random Glucose Estimat Average Glucose Hemoglobin A1c % Calcium Magnesium Total Bilirubin Direct Bilirubin AST ALT Alkaline Phosphatase Total Protein Albumin Triglycerides Cholesterol LDL Cholesterol, Calc HDL Cholesterol Vitamin B12 Folate TSH Free T4 Salicylates Urine Opiates Screen Not Detected Acetaminophen Ur Barbiturates Screen Not Detected Ur Phencyclidine Scrn Not Detected Ur Amphetamines Screen Not Detected U Benzodiazepines Scrn Not Detected Urine Cocaine Screen POSITIVE H U Marijuana (THC) Screen POSITIVE H Ethyl Alcohol COVID-19 ([facility]IO) COVID-[place] 07/04/20 07/04/20 07/04/20 04:09 06:58 21:07 WBC RBC Hgb Hct MCV MCH MCHC RDW Plt Count MPV Immature Gran % (Auto) Neut % (Auto) Lymph % (Auto) [place] % (Auto) Eos % (Auto) Baso % (Auto) Lymph # (Auto) [place] # (Auto) Eos # (Auto) Baso # (Auto) Abs Immat Gran (auto) Absolute Neuts (auto) Absolute Nucleated RBC Nucleated RBC % (auto) Sodium Potassium Chloride Carbon Dioxide Anion Gap BUN Creatinine Estim Creat Clear Calc Estimated GFR POC Glucose 120 H 94 82 Random Glucose Estimat Average Glucose Hemoglobin A1c % Calcium Magnesium Total Bilirubin Direct Bilirubin AST ALT Alkaline Phosphatase Total Protein Albumin Triglycerides Cholesterol LDL Cholesterol, Calc HDL Cholesterol Vitamin B12 Folate TSH Free T4 Salicylates Urine Opiates Screen Acetaminophen Ur Barbiturates Screen Ur Phencyclidine Scrn Ur Amphetamines Screen U Benzodiazepines Scrn Urine Cocaine Screen U Marijuana (THC) Screen Ethyl Alcohol COVID-19 ([facility]) COVID-[place] 07/05/20 07/05/20 07/05/20 06:40 08:19 08:19 WBC RBC Hgb Hct MCV MCH MCHC RDW Plt Count MPV Immature Gran % (Auto) Neut % (Auto) Lymph % (Auto) [place] % (Auto) Eos % (Auto) Baso % (Auto) Lymph # (Auto) [place] # (Auto) Eos # (Auto) Baso # (Auto) Abs Immat Gran (auto) Absolute Neuts (auto) Absolute Nucleated RBC Nucleated RBC % (auto) Sodium Potassium Chloride Carbon Dioxide Anion Gap BUN Creatinine Estim Creat Clear Calc Estimated GFR POC Glucose 74 Random Glucose Estimat Average Glucose 163 Hemoglobin A1c % 7.3 Calcium Magnesium 1.9 Total Bilirubin Direct Bilirubin AST ALT Alkaline Phosphatase Total Protein Albumin Triglycerides 132 Cholesterol 139 LDL Cholesterol, Calc 74 HDL Cholesterol 39 Vitamin B12 Folate TSH 1.01 Free T4 0.92 Salicylates Urine Opiates Screen Acetaminophen Ur Barbiturates Screen Ur Phencyclidine Scrn Ur Amphetamines Screen U Benzodiazepines Scrn Urine Cocaine Screen U Marijuana (THC) Screen Ethyl Alcohol COVID-19 (DELIO) COVID-[place] 07/05/20 07/05/20 07/06/20 08:19 22:07 06:20 WBC RBC Hgb Hct MCV MCH MCHC RDW Plt Count MPV Immature Gran % (Auto) Neut % (Auto) Lymph % (Auto) [place] % (Auto) Eos % (Auto) Baso % (Auto) Lymph # (Auto) [place] # (Auto) Eos # (Auto) Baso # (Auto) Abs Immat Gran (auto) Absolute Neuts (auto) Absolute Nucleated RBC Nucleated RBC % (auto) Sodium Potassium Chloride Carbon Dioxide Anion Gap BUN Creatinine Estim Creat Clear Calc Estimated GFR POC Glucose 83 124 H Random Glucose Estimat Average Glucose Hemoglobin A1c % Calcium Magnesium Total Bilirubin Direct Bilirubin AST ALT Alkaline Phosphatase Total Protein Albumin Triglycerides Cholesterol LDL Cholesterol, Calc HDL Cholesterol Vitamin B12 356 Folate 12.8 TSH Free T4 Salicylates Urine Opiates Screen Acetaminophen Ur Barbiturates Screen Ur Phencyclidine Scrn Ur Amphetamines Screen U Benzodiazepines Scrn Urine Cocaine Screen U Marijuana (THC) Screen Ethyl Alcohol COVID-19 ([facility]IO) COVID-[place] 07/06/20 07/06/20 07/07/20 16:33 22:06 04:59 WBC RBC Hgb Hct MCV MCH MCHC RDW Plt Count MPV Immature Gran % (Auto) Neut % (Auto) Lymph % (Auto) [place] % (Auto) Eos % (Auto) Baso % (Auto) Lymph # (Auto) [place] # (Auto) Eos # (Auto) Baso # (Auto) Abs Immat Gran (auto) Absolute Neuts (auto) Absolute Nucleated RBC Nucleated RBC % (auto) Sodium Potassium Chloride Carbon Dioxide Anion Gap BUN Creatinine Estim Creat Clear Calc Estimated GFR POC Glucose 153 H 129 H 143 H Random Glucose Estimat Average Glucose Hemoglobin A1c % Calcium Magnesium Total Bilirubin Direct Bilirubin AST ALT Alkaline Phosphatase Total Protein Albumin Triglycerides Cholesterol LDL Cholesterol, Calc HDL Cholesterol Vitamin B12 Folate TSH Free T4 Salicylates Urine Opiates Screen Acetaminophen Ur Barbiturates Screen Ur Phencyclidine Scrn Ur Amphetamines Screen U Benzodiazepines Scrn Urine Cocaine Screen U Marijuana (THC) Screen Ethyl Alcohol COVID-19 (DELIO) [employer] 07/07/20 07/08/20 07/08/20 20:54 06:47 20:09 WBC RBC Hgb Hct MCV MCH MCHC RDW Plt Count MPV Immature Gran % (Auto) Neut % (Auto) Lymph % (Auto) [place] % (Auto) Eos % (Auto) Baso % (Auto) Lymph # (Auto) [place] # (Auto) Eos # (Auto) Baso # (Auto) Abs Immat Gran (auto) Absolute Neuts (auto) Absolute Nucleated RBC Nucleated RBC % (auto) Sodium Potassium Chloride Carbon Dioxide Anion Gap BUN Creatinine Estim Creat Clear Calc Estimated GFR POC Glucose 102 127 H 130 H Random Glucose Estimat Average Glucose Hemoglobin A1c % Calcium Magnesium Total Bilirubin Direct Bilirubin AST ALT Alkaline Phosphatase Total Protein Albumin Triglycerides Cholesterol LDL Cholesterol, Calc HDL Cholesterol Vitamin B12 Folate TSH Free T4 Salicylates Urine Opiates Screen Acetaminophen Ur Barbiturates Screen Ur Phencyclidine Scrn Ur Amphetamines Screen U Benzodiazepines Scrn Urine Cocaine Screen U Marijuana (THC) Screen Ethyl Alcohol COVID-19 (DELIO) [employer] 07/09/20 06:39 WBC RBC Hgb Hct MCV MCH MCHC RDW Plt Count MPV Immature Gran % (Auto) Neut % (Auto) Lymph % (Auto) [place] % (Auto) Eos % (Auto) Baso % (Auto) Lymph # (Auto) [place] # (Auto) Eos # (Auto) Baso # (Auto) Abs Immat Gran (auto) Absolute Neuts (auto) Absolute Nucleated RBC Nucleated RBC % (auto) Sodium Potassium Chloride Carbon Dioxide Anion Gap BUN Creatinine Estim Creat Clear Calc Estimated GFR POC Glucose 101 Random Glucose Estimat Average Glucose Hemoglobin A1c % Calcium Magnesium Total Bilirubin Direct Bilirubin AST ALT Alkaline Phosphatase Total Protein Albumin Triglycerides Cholesterol LDL Cholesterol, Calc HDL Cholesterol Vitamin B12 Folate TSH Free T4 Salicylates Urine Opiates Screen Acetaminophen Ur Barbiturates Screen Ur Phencyclidine Scrn Ur Amphetamines Screen U Benzodiazepines Scrn Urine Cocaine Screen U Marijuana (THC) Screen Ethyl Alcohol COVID-19 (DELIO) COVID-19 Clin Com DS: Summary Hospital Course Hospital Course: Mr. Sanchez is a 45 year-old male with extensive hx of substance use including cocaine and opioids, schizophrenia who is known to [facility] through previous admission with similar presentation including SI, increase depression in context of substance use. Pt apparently not consistently following up with OP psychiatric providers through N. Mr. Sanchez was discharged from [facility] after he was treated for hyponatremia s/s to thiazide medication on 06/27/2020. Pt reports that he went to the streets and quickly relapsed on cocaine. He states he was using daily a lot of it. He reports he hustles to get money and buy substances. He was somewhat somnolent and this limited the initial interview. Pt reports not sleeping. He continues to endorse depressed mood, anhedonia, suicidal ideation with plan to jump off bridge. He does not report whether he is interested in substance use treatment. He does not respond whether he is hearing voices or not. We discussed continuing current psychotropic medications, olanzapine, then adjust as he is able to participate more in interview. Past Psychiatric History: Numerous psychiatric admissions by history- recently [facility], 10/2019 [facility], 03/29 [facility], 03/29 [facility], 01/27 [facility], 7+ other admits prior OP: [facility]: Giovanny Smith-therapist Kerry Tapia Psychotropics on admit: Cogentin, Suboxone, Wellbutrin, Clonidine, Cymbalta, Gabapentin, Atarax, [place], Remeron, Trilafon, Seroquel, Topamax, Trazodone. Many of these held during ER admit due to medical SE. Hx of suicide attempt x 1 via Trazodone overdose. Trials: Zoloft, Haldol, Thorazine HOSPITAL COURSE Mr. Sanchez was placed on 15 minutes checks for safety. He was seen daily by primary treatment team. Pt initially very somnolent, minimally engaging in meaningful conversation about his treatment. He reported quickly relapsing on cocaine since he was discharged from [facility] on 06/27. He reported not sleeping nor eating well. He reported staying mostly in the streets. He endorse depressed mood, anhedonia, AH, passive suicidal ideation. His affect quickly appeared much brighter, non labile, he denied suicidal or homicidal ideation. He reported no symptoms of depression. He has very poor insight into effect of his ongoing substance use on his mental health and mood, as well as ability to maintain stable life. He declined referrals for residential substance use treatment programs. He reported that he planned to continue OP psychiatric treatment. He also stated he plans to stay with his father in the meantime. We discussed risks, benefits and alternative treatment options. Pt reported Olanzapine was helpful in past for mood and AH. He was continued on Olanzapine, which was titrated to 10mg po qhs. He did not appear to be responding to internal stimuli during the hospital course. I do suspect AH may be cocaine induced given that they quickly resolve, although pt reports AH when depressed as well. I do not see signs of negative symptoms of schizophrenia. It also appears pt had secondary motive to be in unit, including need for housing and rest rather than true suicidal ideation and depression. There were no incidences of disruptive behaviors nor use of restraints. Time spent discussing smoking cessation with patient: 3 to 10 minutes Status at Discharge Cognitive/behavioral status at discharge: Pt affect is brighter. He denies SI/HI. No signs of aggression towards self or others. Pt continues to have del rio ited insight into substance use. Functional status at discharge: independent ambulation Overall status at discharge: patient is back to baseline Time Spent with Patient Time attestation: Total time spent providing and/or coordinating discharge services: Time spent: Less than 30 minutes
== END 2020-07-09 13:15 | disposition home or self-care (01) | DRG 750 ==
LOC: HO.ED 20:37 → HO.PM5 22:35
PROVIDERS: Clinical Nurse Specialist Psychiatric/Mental Health, Adult; Nurse Practitioner Family; Admitting Provider Psychiatry & Neurology Psychiatry; Emergency Provider Emergency Medicine; PCP Internal Medicine; Visit Provider Social Worker
DX: F20.9 Schizophrenia, unspecified (principal); E11.42 Type 2 diabetes mellitus with diabetic polyneuropathy; R45.851 Suicidal ideations; G89.29 Other chronic pain; F11.20 Opioid dependence, uncomplicated; I10 Essential (primary) hypertension; F17.210 Nicotine dependence, cigarettes, uncomplicated; Z71.6 Tobacco abuse counseling; N40.0 Benign prostatic hyperplasia without lower urinary tract symptoms; B19.20 Unspecified viral hepatitis C without hepatic coma; F14.90 Cocaine use, unspecified, uncomplicated; Z20.822 Contact with and (suspected) exposure to COVID-19; Z79.4 Long term (current) use of insulin; Z79.899 Other long term (current) drug therapy
CPT/HCPCS: 36415; 80048; 80061; 80076; 80143; 80179; 80307; 80320; 82607; 82746; 82947; 83036; 83735; 84439; 84443; 85025; 87635; 93005; 99232; 99285

== ENCOUNTER → 2020-07-09 13:09 | Outpatient (BNVA) | payer MEDICAID, SELFPAY | PROVIDERS: Visit Provider Internal Medicine | DX: F11.99 Opioid use, unspecified with unspecified opioid-induced disorder (principal); F17.200 Nicotine dependence, unspecified, uncomplicated; Z72.89 Other problems related to lifestyle; F12.90 Cannabis use, unspecified, uncomplicated; F14.90 Cocaine use, unspecified, uncomplicated; B19.20 Unspecified viral hepatitis C without hepatic coma | CPT/HCPCS: 80305; 99202 ==

== ENCOUNTER 2020-07-16 13:00 | Outpatient (REF) | payer MEDICAID, SELFPAY ==
[2020-07-18 19:32] LABS: Fentanyl, Ur NEGATIVE ng/mL (<0.5)
== END 2020-07-16 13:01 | disposition home or self-care (01) ==
LOC: HO.LAB 13:00
PROVIDERS: Visit Provider Internal Medicine
DX: F11.99 Opioid use, unspecified with unspecified opioid-induced disorder (principal); Z51.81 Encounter for therapeutic drug level monitoring; Z79.899 Other long term (current) drug therapy
CPT/HCPCS: 80305; 80354; 99211

== ENCOUNTER 2020-07-26 12:07 | Emergency (ER) | payer MEDICAID, SELFPAY ==
[2020-07-26 12:19] VITALS: BP 152/88; PULSE 100; RESP 18; TEMP 37; O2SAT 96; BMI 27.1
== END 2020-07-26 15:46 | disposition left against medical advice (07) ==
PROVIDERS: Emergency Provider Emergency Medicine; PCP Internal Medicine
DX: R10.9 Unspecified abdominal pain (principal); F17.200 Nicotine dependence, unspecified, uncomplicated; Z71.6 Tobacco abuse counseling
CPT/HCPCS: 99283

== ENCOUNTER → 2020-07-30 12:07 | Outpatient (BNVA) | payer MEDICAID, SELFPAY | PROVIDERS: Visit Provider Internal Medicine | DX: Z51.81 Encounter for therapeutic drug level monitoring (principal); Z79.899 Other long term (current) drug therapy | CPT/HCPCS: 99211 ==

== ENCOUNTER → 2020-08-14 09:44 | Outpatient (BNVA) | payer MEDICAID, SELFPAY | PROVIDERS: Visit Provider Internal Medicine | DX: Z51.81 Encounter for therapeutic drug level monitoring (principal) | CPT/HCPCS: 80305 ==

== ENCOUNTER 2020-10-02 19:59 | Inpatient (IN) | payer OTHER, SELFPAY ==
--- NOTE | ~2020-10-02 | XR_ITS ---
EXAMINATION: XR ELBOW, RIGHT CLINICAL INFORMATION: Pain COMPARISON: None TECHNIQUE: AP, lateral, and oblique views of the right elbow. FINDINGS: There is soft tissue swelling in the dorsal aspect of the elbow at the olecranon. A few punctate radiodense fragments are present in this region which may correspond to radiodense debris. A small chronic ossific fragment is present at the medial epicondyle near the UCL origin. No acute fractures are identified. There are small marginal osteophytes and nonuniform joint space narrowing at the ulnotrochlear joint. Joint spaces otherwise appear well-preserved. No joint effusion. XR/XR elbow RT min 3V IMPRESSION: Dorsal soft tissue swelling at the elbow with a few punctate foci of radiodense debris overlying the olecranon. No underlying acute osseous abnormalities. Mild ulnotrochlear osteoarthritis.
[2020-10-02 20:05] VITALS: BP 132/93; PULSE 89; RESP 18; TEMP 36.3; O2SAT 100; BMI 24.4
[2020-10-02 20:52] LABS: COVID-19 Test Negative (Negative)
[2020-10-02 21:01] LABS: Amphetamine Screen Urine POSITIVE (Not Detect); Barbiturates, Urine Not Detected (Not Detect); Benzodiazepines Screen Urine POSITIVE (Not Detect); Cannabinoid Screen Urine POSITIVE (Not Detect); Cocaine Screen Urine POSITIVE (Not Detect); Opiate Screen Urine POSITIVE (Not Detect); Phencyclidine Screen Urine Not Detected (Not Detect)
[2020-10-02 21:11] LABS: Glucose, Whole Blood 162 mg/dL (60-115)
--- NOTE | 2020-10-02 21:49 | PC.NURSE ---
Patient in bed calm and quiet, no distress observed reported, [facility] referral completed via smart-sheet, spoke with intake staff Alesia, confirmed receipt of referral, no clinician ETA at this time, will continue to monitor.
--- NOTE | 2020-10-03 00:43 | ED_ITS ---
HPI - Psych General Chief Complaint: Psychiatric Symptoms Stated Complaint: crisis Time Seen by Provider: 10/02/20 23:29 Source: EMS Mode of arrival: EMS Limitations: no limitations History of Present Illness MD complaint: suicidal ideation Duration: constant History of same: Yes Relieving factors: none Exacerbating factors: none Context: recent drug abuse Associated psychiatric symptoms: depression and suicidal ideation Associated symptoms: denies other symptoms Treatments prior to arrival: none If self harm: admits thoughts of self harm Related Data Home Medications Medication Instructions Recorded Confirmed omeprazole 20 mg PO DAILY 06/13/20 10/02/20 lisinopril 20 mg PO DAILY 07/03/20 10/02/20 bupropion HCl 1 tab PO QAM 10/02/20 10/02/20 gabapentin 800 mg PO TID 10/02/20 10/02/20 insulin glargine [Lantus U-100 70 unit SUBCUT BEDTIME 10/02/20 10/02/20 Insulin] insulin lispro [Humalog U-100 2 - 17 unit SUBCUT TID 10/02/20 10/02/20 Insulin] multivitamin [One Daily 1 tab PO QAM 10/02/20 10/02/20 Multivitamin] quetiapine 50 mg PO BID 10/02/20 10/02/20 sertraline 100 mg PO QAM 10/02/20 10/02/20 tamsulosin 1 tab PO QAM 10/02/20 10/02/20 trazodone 1 tab PO BEDTIME 10/02/20 10/02/20 Previous Rx's Medication Instructions Recorded metformin 1,000 mg PO BIDWM 30 Days #60 tab 07/09/20 Allergies Allergy/AdvReac Type Severity Reaction Status Date / Time buprenorphine [From Subutex] Allergy Angioedema Verified 06/24/20 18:27 Review of Systems Review of Systems: Constitutional: No Weight loss, No Fever, No Chills, No Night Sweats, No Fatigue, No Malaise ENT/Mouth: No Hearing loss, No Ear Pain, No Nasal Congestion, No Sinus Pain, No Hoarseness, No sore throat, No Rhinorrhea, No Swallowing Difficulty Eyes: No Eye Pain, No Swelling, No Redness, No Foreign Body, No Discharge, No Vision Changes Cardiovascular: No Chest Pain, No SOB, No Dyspnea on Exertion, No Orthopnea, No Edema, No Palpitations Respiratory: No Cough, No Sputum, No Wheezing, No Smoke Exposure, No Dyspnea Gastrointestinal: No Nausea, No Vomiting, No Diarrhea, No Constipation, No abdominal Pain, No Hematochezia, No Melena Genitourinary: no irregular bleeding, No Dysuria, No Urinary Frequency, No Hematuria, No Urinary Incontinence, No Urgency, No Flank Pain, No Urinary Flow Changes, No Hesitancy Musculoskeletal: No joint pain, No Myalgias, No Joint Swelling Skin: No Skin Lesions, No rash Neuro: No Weakness, No Numbness, No Paresthesias, No Loss of Consciousness, No Dizziness, No Headache Psych: as noted per HPI Heme/Lymph: No Bruising, No Bleeding,No Lymphadenopathy Endocrine: No Polyuria, No Polydipsia, No Temperature Intolerance Yes all other systems are reviewed and are negative [facility] Past Medical History Medical History (Updated 10/03/20 @ 00:50 by Casey Sánchez NP) Alcohol use Alcohol use disorder, severe, dependence Chronic pain Diverticulitis DM II (diabetes mellitus, type II), controlled High cholesterol HTN (hypertension) Marijuana use Neuropathy Opioid use disorder Opioid use disorder Stimulant use disorder Tobacco use disorder Social History Social History Household Members: None Housing: Homeless Do you presently have visiting nurse or other home services: No Unable to assess alcohol history related to: Refusing to respond Alcohol intake: current Alcohol intake frequency: 0-2 drinks per day Alcohol type: beer and hard liquor Cigarette Packs Per Day: 1 Cigarettes Per Day: 20.0 Years Smoked: 10 Second Hand Smoke Exposure: No Substance Use Type: Crack/Cocaine and Heroin Advance Directives: No Advance Directives Information Provided: No service: No Sexual orientation: Straight/Heterosexual Physical Exam Vital Signs: Vital Signs: Last Vital Signs Temp 97.3 F 10/02/20 20:05 Pulse 89 10/02/20 20:05 Resp 18 10/02/20 20:05 BP 132/93 H 10/02/20 20:05 Pulse Ox 100 10/02/20 20:05 Body Mass Index 24.4 Const: General: cooperative; No acute distress or intoxicated appearing Nutritional Appearance: average body habitus Orientation/consciousness: patient oriented x3 HENMT: Head: Yes normal to inspection Ears: hearing grossly normal bilaterally Eyes: General: appearance normal, both eyes and all related structures Visual Calderón: normal visual calderón by confrontation Neck: Neck: Yes normal visual inspection, No positive Brudzinski's sign, No positive Kernig's sign and No tender Thyroid: Thyroid normal Chest: Chest palpation & inspection: normal inspection of the chest Resp: Effort & Inspection: normal respiratory effort Auscultation: clear to auscultation bilaterally Cardio: Jugular venous distension: no JVD Rhythm: regular rhythm Heart sounds: S1 normal heart sound present and S2 normal heart sound present GI: Inspection: Yes normal to inspection Palpation (GI): Soft to palpation Percussion: Yes normal to percussion Auscultation: normal bowel sounds : General: Yes no CVA tenderness Back/Spine/Pelvis: Back: no CVA tenderness Skin: General skin exam: no rashes or lesions noted Neuro: General: patient oriented x3 Extrem: General: Yes normal to inspection Psych: Appearance: disheveled Speech and movement: Clear speech present Course Course Course Narrative: Calm cooperative here urine with poly substance. Offers no other complaints. He has been stable. Medication reconciled. Awaiting labs. Reevaluation(s) Reevaluation #1: 0200 Remains calm cooperative. Awaiting labs and crisis evaluation. Sign out to night team pending disposition. MDM - Psych Lab Data Labs: Lab Results 10/02/20 10/02/20 10/02/20 Range/Units 20:23 20:26 21:07 POC Glucose 162 H (60-115) mg/dL Urine Opiates Screen POSITIVE H (Not Detect) Ur Barbiturates Screen Not Detected (Not Detect) Ur Phencyclidine Scrn Not Detected (Not Detect) Ur Amphetamines Screen POSITIVE H (Not Detect) U Benzodiazepines Scrn POSITIVE H (Not Detect) Urine Cocaine Screen POSITIVE H (Not Detect) U Marijuana (THC) Screen POSITIVE H (Not Detect) COVID-19 (DELIO) Negative (Negative) COVID-19 Clin Com See Note Discharge Plan Discharge Clinical Impression: Suicidal ideation, Opioid use disorder, Marijuana use, Drug-induced psychotic disorder Prescriptions: No Action lisinopril 20 mg Tablet 20 mg PO DAILY RF: 0 metformin 1,000 mg Tablet 1,000 mg PO BIDWM 30 Days Qty: 60 RF: 0 omeprazole 20 mg Capsule,Delayed Release(Dr/Ec) 20 mg PO DAILY RF: 0 insulin lispro [Humalog U-100 Insulin] 100 unit/mL solution 2 - 17 unit subcut TID RF: 0 bupropion HCl 300 mg tablet extended release 24 hr 1 tab PO QAM RF: 0 multivitamin [One Daily Multivitamin] Tablet 1 tab PO QAM RF: 0 sertraline 100 mg tablet 100 mg PO QAM RF: 0 tamsulosin 0.4 mg capsule 1 tab PO QAM RF: 0 trazodone 100 mg tablet 1 tab PO BEDTIME RF: 0 quetiapine 50 mg tablet 50 mg PO BID RF: 0 Lantus U-100 Insulin 100 unit/mL solution 70 unit subcut BEDTIME RF: 0 gabapentin 800 mg tablet 800 mg PO TID RF: 0
[2020-10-03] MEDS: Multivitamin TABLET 1 TAB PO ×2 (01:17→08:26)
[2020-10-03] MEDS: traZODone HCL 100 MG TABLET PO (01:17)
[2020-10-03] MEDS: buPROPion HCl XL 300 MG TAB.ER.24H PO ×2 (01:17→08:24)
[2020-10-03] MEDS: QUEtiapine Fumarate 50 MG TABLET PO ×2 (01:17→08:25)
[2020-10-03] MEDS: metFORMIN HCl 1,000 MG TABLET 1000 MG PO ×3 (01:21→17:39)
[2020-10-03 01:31] LABS: Glucose, Whole Blood 115 mg/dL (60-115)
[2020-10-03 01:35] VITALS: BP 147/89; PULSE 83; RESP 17; TEMP 36.6; O2SAT 100
--- NOTE | 2020-10-03 02:05 | PC.NURSE ---
Patient compliant with HS PO medication, Lantus held per ptrovider's order, POC was 113, [facility] assessed the patient, disposition is section 12 inpatient bed search, will continue to monitor.
[2020-10-03] MEDS: Omeprazole 20 MG CAPSULE.DR PO (06:47)
--- NOTE | 2020-10-03 06:56 | PC.NURSE ---
Patient slept through the night, no distress observed/reported, compliant with his medication, will continue to monitor.
[2020-10-03 08:03] VITALS: BP 150/100; PULSE 69; RESP 16; TEMP 36.9; O2SAT 98
[2020-10-03 08:19] LABS: Glucose, Whole Blood 129 mg/dL (60-115)
[2020-10-03 08:24] VITALS: BP 150/100; PULSE 69
[2020-10-03] MEDS: lisinopriL 20 MG TABLET PO (08:24)
[2020-10-03] MEDS: Gabapentin 400 MG CAPSULE 800 MG PO ×3 (08:24→20:50)
[2020-10-03] MEDS: Tamsulosin HCL 0.4 MG CAPSULE PO (08:25)
[2020-10-03] MEDS: Sertraline HCL 100 MG TABLET PO (08:25)
[2020-10-03 08:29] LABS: MANUAL DIFF FLAG NO
[2020-10-03 08:30] LABS: Basophils Percent Auto 0.6 % (0-2); Eosinophils Absolute Auto 0.1 X10*3/uL (0.0-0.4); Eosinophils Percent Auto 1.2 % (0-4); Hematocrit 38.8 % (42-52); Hemoglobin 13.2 g/dl (14.0-18.0); Lymphocytes Absolute Auto 1.1 X10*3/uL (1.2-4.9); Lymphocytes Percent Auto 21.6 % (20-40); Mean Corpuscular Hemoglobin 30.5 pg (27.0-33.0); Mean Corpuscular Volume 89.6 fL (80-98); Mean Platelet Volume 9.5 fL (9.4-12.4); Monocytes Absolute Auto 0.6 X10*3/uL (0.1-1.2); Neutrophils Absolute Auto 3.2 X10*3/uL (2.0-8.3); Neutrophils Percent Auto 64.6 % (45-73); Platelet Count 338 X10*3/uL (160-400); Red Blood Count 4.33 X10*6/uL (4.60-5.80); Red Cell Distribution Width 13.4 % (11.0-16.0)
[2020-10-03 08:55] LABS: Amphetamine Screen Urine Not Detected (Not Detect); Barbiturates, Urine Not Detected (Not Detect); Benzodiazepines Screen Urine POSITIVE (Not Detect); Cannabinoid Screen Urine POSITIVE (Not Detect); Cocaine Screen Urine POSITIVE (Not Detect); Opiate Screen Urine Not Detected (Not Detect); Phencyclidine Screen Urine Not Detected (Not Detect)
[2020-10-03 08:56] LABS: Alanine Aminotransferase 23 U/L (0-40); Albumin Level 3.6 g/dL (3.5-5.0); Alkaline Phosphatase 64 U/L (39-117); Anion Gap 10 (12-20); Aspartate Amino Transferase 38 U/L (5-37); Bilirubin Total 0.4 mg/dL (0.0-1.0); Blood Urea Nitrogen 9 mg/dL (9-16); Calcium 8.9 mg/dL (8.4-10.2); Carbon Dioxide 29 mmol/L (22-29); Chloride 104 mmol/L (96-108); Creatinine Clr Calc Pharmacy 149.3; Estimated Glomerular Filt Rate > 60; Glucose Random 121 mg/dL (60-115); Potassium 3.4 mmol/L (3.3-5.1); Sodium 140 mmol/L (135-145); Total Protein 6.7 g/dL (6.5-8.0)
--- NOTE | 2020-10-03 10:11 | MHC.RECOVSUP ---
Recovery Support note: Patient is a 45 year old [place]ian speaking male who presented due to SI, reporting that he has been off his medications for two days. This ticket writer met with patient to discuss his substance use and recovery. Patient was sleeping in BH2 however awoke when this ticket writer spoke his name. Patient reports he is still feeling the same regarding his mental health. Patient expressed interest in restarting Suboxone while he is here in the hospital. Patient reports last use being a couple days ago. Encouraged patient to inform the nurse if he begins to experience withdrawal symptoms or to express his desire to restart Suboxone to the psychiatrist who meets with him after admission. Patient acknowledged. Patient reports he is not interested in discussing his substance use or recovery at this point in time, stating he would just like to rest. Encouraged patient to inform staff if he needs anything or if he would like to discuss his substance use and recovery further. This ticket writer available as needed.
--- NOTE | 2020-10-03 12:19 | PC.NURSE ---
patient appears to be resting at present appears in no distress, awaits assessments and perhaps inpatient admission.
[2020-10-03 16:07] VITALS: BP 153/91; PULSE 85; RESP 16; TEMP 37.9; O2SAT 98
--- NOTE | 2020-10-03 16:14 | ECG_ITS ---
Test Reason : MED CLANCES Blood Pressure : / mmHG Vent. Rate : 082 BPM Atrial Rate : 082 BPM P-R Int : 168 ms QRS Dur : 144 ms QT Int : 432 ms P-R-T Axes : -23 029 059 degrees QTc Int : 504 ms Normal sinus rhythm Right bundle branch block Abnormal ECG When compared with ECG of 03-JUL-2020 12:47, No significant change was found Referred By: Jana Lewis Electronically Signed By:Rodriguez Bourne
[2020-10-03 17:49] LABS: Glucose, Whole Blood 115 mg/dL (60-115)
[2020-10-03 17:49] LABS: Glucose, Whole Blood 95 mg/dL (60-115)
[2020-10-03 18:00] VITALS: BP 160/84; PULSE 75; RESP 16; TEMP 36.9; O2SAT 98
--- NOTE | 2020-10-03 19:17 | PC.ADMIT ---
PT is a 45 year old kuwaiti speaking male that arrived to @ approximately 18:00 via wheelchair from ED. PT presented to ED with complaints of psychosis. PT has made several suicide attempts with the most recent being 09/22/20 when PT presented to [facility] [place] after attempting to overdose on Xanax, heroin, and marijuana. PT has a hx of substance abuse with a multitude of substances including heroin (IV), cocaine (inhalation and IV), THC, and benzos. PT admits to alchohol use disorder and averages approximately 10 alcoholic beverages daily. PT is an everyday smoker, smoking approximately a pack and a half daily. PT denying withdrawal symptoms from alchohol and opioids at this time. PT has flat affect and avoiding eye contact but calm and cooperative. Denies SI/HI,VH/AH at this time. PT verbalizes his desire to sleep.
[2020-10-03] MEDS: Thiamine HCL 100 MG TABLET 200 MG PO (20:50)
[2020-10-03] MEDS: Insulin Glargine,Hum.rec.anlog 100 UNIT/ML 10 ML VIAL 70 UNIT SUBCUT (20:50)
[2020-10-03 21:00] VITALS: BP 156/90; PULSE 77; TEMP 37.7
[2020-10-03 21:00] LABS: Glucose, Whole Blood 100 mg/dL (60-115)
[2020-10-04 07:33] LABS: Cholesterol 135 mg/dL; HDL Cholesterol 42 mg/dL; LDL Cholesterol Calculated 78 mg/dl; Triglycerides 78 mg/dL
[2020-10-04 07:53] LABS: Thyroid Stimulating Hormone 0.05 uIU/mL (0.32-4.0)
[2020-10-04 07:54] LABS: Estimated Average Glucose 123 mg/dL; Hemoglobin A1c % 5.9 %
[2020-10-04 08:27] VITALS: BP 142/77; PULSE 71; RESP 17; TEMP 36.9; O2SAT 98
[2020-10-04 08:27] LABS: Glucose, Whole Blood 96 mg/dL (60-115)
[2020-10-04] MEDS: Nicotine 21 MG PATCH.TD24 TRANSDERMA (08:30)
[2020-10-04 08:31] VITALS: BP 142/77; PULSE 71
[2020-10-04] MEDS: Thiamine HCL 100 MG TABLET 200 MG PO (08:31)
[2020-10-04] MEDS: lisinopriL 20 MG TABLET PO (08:31)
[2020-10-04] MEDS: Gabapentin 400 MG CAPSULE 800 MG PO ×3 (08:31→20:41)
[2020-10-04] MEDS: Tamsulosin HCL 0.4 MG CAPSULE PO (08:31)
[2020-10-04] MEDS: Sertraline HCL 100 MG TABLET PO (08:31)
[2020-10-04] MEDS: buPROPion HCl XL 300 MG TAB.ER.24H PO (08:31)
[2020-10-04] MEDS: Multivitamin TABLET 1 TAB PO (08:31)
[2020-10-04] MEDS: metFORMIN HCl 1,000 MG TABLET 1000 MG PO ×2 (08:31→16:02)
[2020-10-04] MEDS: Omeprazole 20 MG CAPSULE.DR PO (08:32)
[2020-10-04] MEDS: Buprenorphine/Naloxone 8/2 mg FILM 1 FILM SUBLINGUAL (11:45)
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
[2020-10-04 20:22] VITALS: BP 143/87; PULSE 70; TEMP 36.9; O2SAT 99
[2020-10-04 20:39] LABS: Glucose, Whole Blood 144 mg/dL (60-115)
[2020-10-04] MEDS: Insulin Glargine,Hum.rec.anlog 100 UNIT/ML 10 ML VIAL 70 UNIT SUBCUT (20:41)
--- NOTE | 2020-10-05 | ECG_ITS ---
Test Reason : qtc prolongation Blood Pressure : / mmHG Vent. Rate : 076 BPM Atrial Rate : 076 BPM P-R Int : 160 ms QRS Dur : 144 ms QT Int : 442 ms P-R-T Axes : 049 015 056 degrees QTc Int : 497 ms Normal sinus rhythm Possible Left atrial enlargement Right bundle branch block Abnormal ECG When compared with ECG of 03-OCT-2020 16:30, No significant change was found Referred By: Mary Ann Gray Electronically Signed By:Rodriguez Bourne
[2020-10-05] MEDS: Omeprazole 20 MG CAPSULE.DR PO (06:23)
[2020-10-05 08:17] LABS: TSH reflex Free T4 0.31 uIU/mL (0.32-4.0)
[2020-10-05 08:34] LABS: Glucose, Whole Blood 97 mg/dL (60-115)
[2020-10-05] MEDS: Gabapentin 400 MG CAPSULE 800 MG PO ×3 (08:35→21:58)
[2020-10-05] MEDS: Sertraline HCL 100 MG TABLET PO (08:35)
[2020-10-05] MEDS: Tamsulosin HCL 0.4 MG CAPSULE PO (08:35)
[2020-10-05] MEDS: Nicotine 21 MG PATCH.TD24 TRANSDERMA (08:35)
[2020-10-05] MEDS: Thiamine HCL 100 MG TABLET 200 MG PO (08:35)
[2020-10-05 08:36] VITALS: BP 165/65; PULSE 63
[2020-10-05] MEDS: Multivitamin TABLET 1 TAB PO (08:36)
[2020-10-05] MEDS: buPROPion HCl XL 300 MG TAB.ER.24H PO (08:36)
[2020-10-05] MEDS: metFORMIN HCl 1,000 MG TABLET 1000 MG PO ×2 (08:36→16:08)
[2020-10-05] MEDS: lisinopriL 20 MG TABLET PO (08:36)
[2020-10-05 08:41] VITALS: RESP 18; TEMP 36.3; O2SAT 99
[2020-10-05 09:00] LABS: Free T4 (Free Thyroxine) 0.96 ng/dL (0.71-1.85)
--- NOTE | 2020-10-05 13:32 | HO.PSYCHPN ---
Subjective Subjective Date of Service: 10/05/20 Reason For Visit: crisis Subjective Notes: Conditional Voluntary Interim History: Pt continues to endorse depressed mood, anhedonia, poor sleep/appetite. He endorses suicidal ideation but denies any plan or intent. He reports no voices today. He reports urinary frequency and foul urine odor- will order UA, also PVR as pt with hx of urinary retention. He was started on suboxone yesterday. Today continues to report loose stools, cramping. Medication Compliance: Yes Side effects from medications: No Attending Groups: No Review of Systems Review of Systems Constitutional: No Weight loss, No Fever, No Chills, No Night Sweats, No Fatigue, No Malaise ENT/Mouth: No Hearing loss, No Ear Pain, No Nasal Congestion, No Sinus Pain, No Hoarseness, No sore throat, No Rhinorrhea, No Swallowing Difficulty Eyes: No Eye Pain, No Swelling, No Redness, No Foreign Body, No Discharge, No Vision Changes Cardiovascular: No Chest Pain, No SOB, No Dyspnea on Exertion, No Orthopnea, No Edema, No Palpitations Respiratory: No Cough, No Sputum, No Wheezing, No Smoke Exposure, No Dyspnea Gastrointestinal: No Nausea, No Vomiting, No Diarrhea, No Constipation, No abdominal Pain, No Hematochezia, No Melena Genitourinary: no irregular bleeding, No Dysuria, No Urinary Frequency, No Hematuria, No Urinary Incontinence, No Urgency, No Flank Pain, No Urinary Flow Changes, No Hesitancy Musculoskeletal: No joint pain, No Myalgias, No Joint Swelling Skin: No Skin Lesions, No rash Neuro: No Weakness, No Numbness, No Paresthesias, No Loss of Consciousness, No Dizziness, No Headache Psych: as noted per HPI Heme/Lymph: No Bruising, No Bleeding,No Lymphadenopathy Endocrine: No Polyuria, No Polydipsia, No Temperature Intolerance Yes all other systems are reviewed and are negative Denies dizziness Cardiovascular: Denies chest pain, Denies syncope, Reports leg edema, Denies lightheadedness and Denies dyspnea Respiratory: Denies dyspnea Gastrointestinal: Reports GI cramping and Reports diarrhea Genitourinary: Reports oliguria Denies confusion, Denies dizziness, Denies syncope and Denies focal weakness Psychiatric: Denies confusion Mental Status Exam Mental Status Exam Narrative: Appearance: casually groomed, good hygiene, in NAD Behavior: calm, cooperative Psychomotor: no agitation or retardation noted Speech: clear, normal rate/rhythm/volume, spontaneous TP: linear TC: no signs of psychosis, feeling physically tired, hopeless Mood: depressed Affect: blunted SI:passive HI:denies AH/VH:denies Delusions:does not appear internally preoccupied Insight/judgment:poor x 2 Memory/cog: alert, oriented x 3. grossly intact to conversational testing. Diagnostics Vital Signs (24Hr): Vital Signs - 24 hr 10/04/20 20:22 10/05/20 08:36 10/05/20 08:41 Temperature 98.4 F 97.3 F Pulse Rate 70 63 Respiratory Rate 18 Blood Pressure 143/87 H 165/65 H Pulse Oximetry 99 99 Body Mass Index 24.4 Labs Results: 10/03/20 08:25 10/03/20 08:25 Labs: Laboratory Results - last 48 hr 10/03/20 10/03/20 10/03/20 12:49 17:45 20:55 POC Glucose 115 95 100 Estimat Average Glucose Hemoglobin A1c % Triglycerides Cholesterol LDL Cholesterol, Calc HDL Cholesterol TSH Free T4 10/04/20 10/04/20 10/04/20 06:48 06:48 08:18 POC Glucose 96 Estimat Average Glucose 123 Hemoglobin A1c % 5.9 Triglycerides 78 Cholesterol 135 LDL Cholesterol, Calc 78 HDL Cholesterol 42 TSH 0.05 L Free T4 10/04/20 10/05/20 10/05/20 20:33 07:09 07:09 POC Glucose 144 H Estimat Average Glucose Hemoglobin A1c % Triglycerides Cholesterol LDL Cholesterol, Calc HDL Cholesterol TSH Cancelled 0.31 L Free T4 0.96 10/05/20 08:28 POC Glucose 97 Estimat Average Glucose Hemoglobin A1c % Triglycerides Cholesterol LDL Cholesterol, Calc HDL Cholesterol TSH Free T4 Medications Medications Current Medications Generic Name Dose Route Start Last Admin Trade Name Freq PRN Reason Stop Dose Admin Acetaminophen 650 mg 10/03/20 17:14 Acetaminophen 325 Mg Tablet PO Q6H PRN Headache/Pain Mild Scale (1-3) Al Hydroxide/Mg Hydroxide 30 ml 10/03/20 17:14 Magnesium Hydrox/Alum Hydrox 30 Ml Oral.Susp PO Q6H PRN Heartburn/Nausea Buprenorphine/Naloxone 1 film 10/05/20 13:10 Buprenorphine/Naloxone 8/2 Mg Film SUBLINGUAL BID [facility] Bupropion HCl 300 mg 10/02/20 23:30 10/05/20 08:36 Bupropion Hcl Xl 300 Mg Tab.Er.24h PO 300 mg DAILY [facility] Administration Gabapentin 800 mg 10/03/20 09:00 10/05/20 08:35 Gabapentin 400 Mg Capsule PO 800 mg TID [facility] Administration Hydroxyzine HCl 25 mg 10/03/20 17:14 Hydroxyzine Hcl 25 Mg Tablet PO BEDTIME PRN Anxiety Insulin Glargine 70 unit 10/02/20 23:45 10/04/20 20:41 Insulin Glargine,Hum.Rec.Anlog 100 Unit/Ml 10 Ml Vial SUBCUT 70 unit BEDTIME [facility] Administration Lisinopril 20 mg 10/03/20 09:00 10/05/20 08:36 Lisinopril 20 Mg Tablet PO 20 mg DAILY [facility] Administration Protocol Magnesium Hydroxide 30 ml 10/03/20 17:14 Milk Of Magnesia 30 Ml Oral.Susp PO DAILY PRN Constipation Metformin HCl 1,000 mg 10/02/20 23:45 10/05/20 08:36 Metformin Hcl 1,000 Mg Tablet PO 1,000 mg BIDWM [facility] Administration Multivitamins/Vitamin C 1 tab 10/02/20 23:30 10/05/20 08:36 Multivitamin Tablet PO 1 tab DAILY [facility] Administration Nicotine 21 mg 10/03/20 20:25 10/05/20 08:35 Nicotine 21 Mg Patch.Td24 TRANSDERMA 21 mg DAILY [facility] Administration Omeprazole 20 mg 10/03/20 06:30 10/05/20 06:23 Omeprazole 20 Mg Capsule.Dr PO 20 mg DAILY@0630 [facility] Administration Sertraline HCl 100 mg 10/03/20 09:00 10/05/20 08:35 Sertraline Hcl 100 Mg Tablet PO 100 mg DAILY [facility] Administration Tamsulosin HCl 0.4 mg 10/03/20 09:00 10/05/20 08:35 Tamsulosin Hcl 0.4 Mg Capsule PO 0.4 mg DAILY [facility] Administration Thiamine HCl 200 mg 10/03/20 19:00 10/05/20 08:35 Thiamine Hcl 100 Mg Tablet PO 200 mg DAILY [facility] Administration Trazodone HCl 50 mg 10/03/20 17:14 Trazodone Hcl 50 Mg Tablet PO BEDTIME PRN Insomnia Allergies Allergies Allergy/AdvReac Type Severity Reaction Status Date / Time buprenorphine [From Subutex] Allergy Angioedema Verified 06/24/20 18:27 Assessment & Plan Assessment & Plan (1) MDD (major depressive disorder), recurrent, severe, with psychosis: Status: Acute Code(s): F33.3 - Major depressive disorder, recurrent, severe with psychotic symptoms Assessment and Plan: pt reports wellbutrin has been helpful- no hx of seizures. (2) Opioid use disorder: Status: Acute Code(s): F11.99 - Opioid use, unspecified with unspecified opioid-induced disorder Assessment and Plan: re start suboxone (3) Alcohol use: Status: Acute Code(s): Z72.89 - Other problems related to lifestyle Assessment and Plan: on gabapentin- will add thiamine, folic acid (4) Marijuana use: Status: Acute Code(s): F12.90 - Cannabis use, unspecified, uncomplicated (5) Urinary hesitancy: Status: Acute Code(s): R39.11 - Hesitancy of micturition Greater than 50% of the session was spent on counseling and/or coordination of care Reason for contiued inpatient stay Substantial Risk for: harm to self and inability to function
[2020-10-05] MEDS: Buprenorphine/Naloxone 8/2 mg FILM 1 FILM SUBLINGUAL ×2 (13:36→21:58)
[2020-10-05 14:11] LABS: Glucose Urine UA NEG (NEG); Leukocyte Esterase Urine 3+ (NEG); Nitrite Urine POS (NEG); PH 6.5 (5.0-8.0); UACC Culture Trigger YES; Urine Blood 2+ (NEG); Urine Ketones NEG (NEG); Urine Protein 1+ MG/DL (NEG-TRACE)
[2020-10-05 14:15] LABS: Alanine Aminotransferase 24 U/L (0-40); Albumin Level 3.7 g/dL (3.5-5.0); Alkaline Phosphatase 59 U/L (39-117); Anion Gap 12 (12-20); Aspartate Amino Transferase 35 U/L (5-37); Bilirubin Total < 0.2 mg/dL (0.0-1.0); Blood Urea Nitrogen 10 mg/dL (9-16); Calcium 9.2 mg/dL (8.4-10.2); Carbon Dioxide 27 mmol/L (22-29); Chloride 102 mmol/L (96-108); Creatinine Clr Calc Pharmacy 139.3; Estimated Glomerular Filt Rate > 60; Glucose Random 168 mg/dL (60-115); Potassium 4.2 mmol/L (3.3-5.1); Sodium 137 mmol/L (135-145)
[2020-10-05 14:24] LABS: Appearance Urine HAZY; Color Urine YELLOW
[2020-10-05 14:33] LABS: Bacteria Urine 2+ /LPF; Mucus Urine 2+ /LPF; Squamous Epithelial Cell Urine TRACE /LPF; WBC Urine TNTC /HPF (0-4)
--- NOTE | 2020-10-05 14:39 | PC.NURSE ---
Bladder scan completed 1429 - 13ml residual after void.
[2020-10-05 18:00] VITALS: BP 139/88; PULSE 74; RESP 18; TEMP 36.8; O2SAT 99
[2020-10-05 21:03] LABS: Glucose, Whole Blood 72 mg/dL (60-115)
--- NOTE | 2020-10-05 21:25 | PC.NURSE ---
Patient's blood glucose was 72, patient given peanut butterand jelly sandwich at that time.
[2020-10-05 21:53] LABS: Glucose, Whole Blood 66 mg/dL (60-115)
[2020-10-05] MEDS: Acetaminophen 325 MG TABLET 650 MG PO (21:57)
--- NOTE | 2020-10-05 23:35 | PC.NURSE ---
Spoke with Carine Gray at [id number]. Patient's blood sugar was low at 72. Patient given peanut butter sandwich and blood sugar rechecked after 40 minutes, blood sugar was 66. Lantus was held. Patient given 4 ounces of cranberry juice at this time.
[2020-10-06 04:03] LABS: Folate 8.4 ng/mL (> or = 4.0); Vitamin B12 255 pg/mL (200-900)
[2020-10-06] MEDS: Acetaminophen 325 MG TABLET 650 MG PO ×2 (05:25→22:15)
[2020-10-06] MEDS: diphenhydrAMINE HCL 25 MG TABLET 50 MG PO (05:25)
[2020-10-06] MEDS: Omeprazole 20 MG CAPSULE.DR PO (05:25)
[2020-10-06 06:00] VITALS: BP 139/76; PULSE 64; RESP 16; TEMP 36.6; O2SAT 99
--- NOTE | 2020-10-06 07:58 | PM.IMCN ---
History of Present Illness Data of Consult Service Date: 10/06/20 Primary Care Provider: [facility] Reason for consult: right elbow pain 45M complaining of 2 days right elbow pain and swelling without fever or chills. denies trauma, denies leaning on it. tender to palpation, relieved with avoiding pressure. xray negative for fracture. Review of Systems Cardiovascular: Cardiovascular: Reports no additional cardiovascular complaints Respiratory: Respiratory: Reports no additional respiratory complaints Gastrointestinal: Gastrointestinal: Reports no additional gastrointestinal complaints [facility] Medical History Alcohol use Alcohol use disorder, severe, dependence Chronic pain Diverticulitis DM II (diabetes mellitus, type II), controlled High cholesterol HTN (hypertension) Marijuana use Neuropathy Opioid use disorder Opioid use disorder Stimulant use disorder Tobacco use disorder Social History Household Members: None Housing: Homeless Do you presently have visiting nurse or other home services: No Unable to assess alcohol history related to: Refusing to respond Alcohol intake: current Alcohol intake frequency: 0-2 drinks per day Alcohol type: beer and hard liquor Patient Tobacco Use Status: Current everyday Tobacco user Tobacco use type: Cigarette Cigarette Packs Per Day: 1.5 Cigarettes Per Day: 30.0 Years Smoked: 10 Smoked in Last 30 Days: No Patient Interested in Nicotine Replacement: Yes Patient Given Instructions on How to Stop Smoking: Yes Date Education Initiated: 10/03/20 Second Hand Smoke Exposure: No Use of substances other than those prescribed or required for medical reasons: Yes Substance Use Type: Amphetamines, Crack/Cocaine, Heroin, IV Drugs, Marijuana and Opiates Substance Use Frequency: Chronic Longstanding Last Used Substance: Just Prior to Admission Currently Displaying Signs/Symptoms of Drug Intoxication Withdrawal: No Any prior treatment program specific to substance use: No Have you been hit, kicked, punched, or otherwise hurt by someone within the past year? If so, by whom?: No Do you feel safe in your current relationship?: No Current Relationship Is there a partner from a previous relationship who is making you feel unsafe now?: No Are you made to feel afraid or neglected: No [facility]ices: [facility] Advance Directives: No Advance Directives Information Provided: No Do you have thoughts of harming others: None Do you have a plan to hurt others: No Plan Recently lost weight without trying: No Eating poorly because of decreased appetite: Yes Nutrition Risks: No Nutritional Risk and Poor intake 0-25% >4 days Poor oral hygiene: Yes service: No Sexual orientation: Straight/Heterosexual Meds Allergies Allergy/AdvReac Type Severity Reaction Status Date / Time buprenorphine [From Subutex] Allergy Angioedema Verified 06/24/20 18:27 Active Medications: Current Medications Generic Name Dose Route Start Last Admin Trade Name Freq PRN Reason Stop Dose Admin Acetaminophen 650 mg 10/03/20 17:14 10/06/20 05:25 Acetaminophen 325 Mg Tablet PO 650 mg Q6H PRN Administration Headache/Pain Mild Scale (1-3) Al Hydroxide/Mg Hydroxide 30 ml 10/03/20 17:14 Magnesium Hydrox/Alum Hydrox 30 Ml Oral.Susp PO Q6H PRN Heartburn/Nausea Buprenorphine/Naloxone 1 film 10/05/20 13:10 10/05/20 21:58 Buprenorphine/Naloxone 8/2 Mg Film SUBLINGUAL 1 film BID [facility] Administration Bupropion HCl 300 mg 10/02/20 23:30 10/05/20 08:36 Bupropion Hcl Xl 300 Mg Tab.Er.24h PO 300 mg DAILY [facility] Administration Gabapentin 800 mg 10/03/20 09:00 10/05/20 21:58 Gabapentin 400 Mg Capsule PO 800 mg TID [facility] Administration Hydroxyzine HCl 25 mg 10/03/20 17:14 Hydroxyzine Hcl 25 Mg Tablet PO BEDTIME PRN Anxiety Insulin Glargine 70 unit 10/02/20 23:45 10/05/20 22:00 Insulin Glargine,Hum.Rec.Anlog 100 Unit/Ml 10 Ml Vial SUBCUT Not Given BEDTIME [facility] Lisinopril 20 mg 10/03/20 09:00 10/05/20 08:36 Lisinopril 20 Mg Tablet PO 20 mg DAILY [facility] Administration Protocol Magnesium Hydroxide 30 ml 10/03/20 17:14 Milk Of Magnesia 30 Ml Oral.Susp PO DAILY PRN Constipation Metformin HCl 1,000 mg 10/02/20 23:45 10/05/20 16:08 Metformin Hcl 1,000 Mg Tablet PO 1,000 mg BIDWM [facility] Administration Multivitamins/Vitamin C 1 tab 10/02/20 23:30 10/05/20 08:36 Multivitamin Tablet PO 1 tab DAILY [facility] Administration Nicotine 21 mg 10/03/20 20:25 10/05/20 08:35 Nicotine 21 Mg Patch.Td24 TRANSDERMA 21 mg DAILY [facility] Administration Omeprazole 20 mg 10/03/20 06:30 10/06/20 05:25 Omeprazole 20 Mg Capsule.Dr PO 20 mg DAILY@0630 [facility] Administration Sertraline HCl 100 mg 10/03/20 09:00 10/05/20 08:35 Sertraline Hcl 100 Mg Tablet PO 100 mg DAILY [facility] Administration Tamsulosin HCl 0.4 mg 10/03/20 09:00 10/05/20 08:35 Tamsulosin Hcl 0.4 Mg Capsule PO 0.4 mg DAILY [facility] Administration Thiamine HCl 200 mg 10/03/20 19:00 10/05/20 08:35 Thiamine Hcl 100 Mg Tablet PO 200 mg DAILY [facility] Administration Trazodone HCl 50 mg 10/03/20 17:14 Trazodone Hcl 50 Mg Tablet PO BEDTIME PRN Insomnia Home Medications Medication Instructions Recorded Confirmed Last Taken Type omeprazole 20 mg PO DAILY 06/13/20 10/02/20 09/30/20 08:00 History lisinopril 20 mg PO DAILY 07/03/20 10/02/20 09/30/20 08:00 History bupropion HCl 1 tab PO QAM 10/02/20 10/02/20 09/30/20 10:00 History gabapentin 800 mg PO TID 10/02/20 10/02/20 09/30/20 20:00 History insulin glargine [Lantus U-100 70 unit SUBCUT BEDTIME 10/02/20 10/02/20 09/30/20 22:00 History Insulin] insulin lispro [Humalog U-100 2 - 17 unit SUBCUT TID 10/02/20 10/02/20 09/29/20 10:00 History Insulin] multivitamin [One Daily 1 tab PO QAM 10/02/20 10/02/20 09/29/20 09:00 History Multivitamin] quetiapine 50 mg PO BID 10/02/20 10/02/20 09/30/20 20:00 History sertraline 100 mg PO QAM 10/02/20 10/02/20 09/30/20 09:00 History tamsulosin 1 tab PO QAM 10/02/20 10/02/20 09/30/20 09:00 History trazodone 1 tab PO BEDTIME 10/02/20 10/02/20 09/30/20 22:00 History Physical Exam Vital Signs and Narrative: Vital Signs: Last Vital Signs Temp 98.2 F 10/05/20 18:00 Pulse 74 10/05/20 18:00 Resp 18 10/05/20 18:00 BP 139/88 10/05/20 18:00 Pulse Ox 99 10/05/20 18:00 Body Mass Index 24.4 General: AO X 3, no acute distress Resp: CTA bilateral CVS: S1,S2,RRR GI: soft, non tender, non distended Neuro: motor grossly intact Psych: appropriate affect right elbow swollen, tender, no erythema Results Labs CBC and Chem 7: 10/03/20 08:25 10/05/20 13:19 Labs: Laboratory Results - last 24 hr 10/04/20 10/05/20 10/05/20 06:48 07:09 08:28 Anion Gap Estim Creat Clear Calc Estimated GFR POC Glucose 97 Random Glucose Calcium Total Bilirubin AST ALT Alkaline Phosphatase Total Protein Albumin Vitamin B12 255 Folate 8.4 TSH 0.31 L Free T4 0.96 Urine Color Urine Appearance Urine pH Ur Specific [place] Urine Protein Urine Glucose (UA) Urine Ketones Urine Blood Urine Nitrite Ur Leukocyte Esterase Urine RBC Urine WBC Ur Squamous Epith Cells Urine Bacteria Urine Mucus 10/05/20 10/05/20 10/05/20 13:19 13:56 20:59 Anion Gap 12 Estim Creat Clear Calc 139.3 Estimated GFR > 60 POC Glucose 72 Random Glucose 168 H D Calcium 9.2 Total Bilirubin < 0.2 AST 35 ALT 24 Alkaline Phosphatase 59 Total Protein 7.0 Albumin 3.7 Vitamin B12 Folate TSH Free T4 Urine Color YELLOW Urine Appearance HAZY Urine pH 6.5 Ur Specific [place] 1.020 Urine Protein 1+ H Urine Glucose (UA) NEG Urine Ketones NEG Urine Blood 2+ H Urine Nitrite POS H Ur Leukocyte Esterase 3+ H Urine RBC 1-4 Urine WBC TNTC H Ur Squamous Epith Cells TRACE Urine Bacteria 2+ Urine Mucus 2+ 10/05/20 21:42 Anion Gap Estim Creat Clear Calc Estimated GFR POC Glucose 66 Random Glucose Calcium Total Bilirubin AST ALT Alkaline Phosphatase Total Protein Albumin Vitamin B12 Folate TSH Free T4 Urine Color Urine Appearance Urine pH Ur Specific [place] Urine Protein Urine Glucose (UA) Urine Ketones Urine Blood Urine Nitrite Ur Leukocyte Esterase Urine RBC Urine WBC Ur Squamous Epith Cells Urine Bacteria Urine Mucus Imaging Radiologist's Impressions: Impressions Elbow X-Ray 10/06/20 00:33 IMPRESSION: Dorsal soft tissue swelling at the elbow with a few punctate foci of radiodense debris overlying the olecranon. No underlying acute osseous abnormalities. Mild ulnotrochlear osteoarthritis. Assessment and Plan (1) Olecranon bursitis: Status: Acute 45M presented with right elbow pain right olecranon bursitis avoid pressure on elbow will do 3 days ibuprofen 600mg tidac if worsening can consider ortho for aspiration
[2020-10-06] MEDS: Thiamine HCL 100 MG TABLET 200 MG PO (09:12)
[2020-10-06] MEDS: Nicotine 21 MG PATCH.TD24 TRANSDERMA (09:12)
[2020-10-06] MEDS: Buprenorphine/Naloxone 8/2 mg FILM 1 FILM SUBLINGUAL (09:12)
[2020-10-06] MEDS: Tamsulosin HCL 0.4 MG CAPSULE PO (09:13)
[2020-10-06] MEDS: Gabapentin 400 MG CAPSULE 800 MG PO ×3 (09:13→22:15)
[2020-10-06] MEDS: buPROPion HCl XL 300 MG TAB.ER.24H PO (09:13)
[2020-10-06] MEDS: lisinopriL 20 MG TABLET PO (09:13)
[2020-10-06] MEDS: metFORMIN HCl 1,000 MG TABLET 1000 MG PO ×2 (09:13→17:33)
[2020-10-06] MEDS: Sertraline HCL 100 MG TABLET PO (09:14)
[2020-10-06] MEDS: Multivitamin TABLET 1 TAB PO (09:14)
[2020-10-06] MEDS: Ibuprofen 600 MG TABLET PO ×2 (12:38→17:32)
--- NOTE | 2020-10-06 14:58 | MHC.CLN ---
NUTRITION-DIET ORDER PATIENT WITH DX DIABETES AND TAKES METFORMIN AND INSULIN. DIET CHANGED TO DIABETIC 2200 KCAL. DIABETIC 2200 KCAL PROVIDES 27 KCAL/KG ABW.
--- NOTE | 2020-10-06 15:02 | HO.PSYCHPN ---
Subjective Subjective Date of Service: 10/06/20 Reason For Visit: crisis Interim History: Pt continues to endorse depressed mood, anhedonia, poor sleep/appetite. He endorses suicidal ideation but denies any plan or intent. He reports no voices today. pt reports having used cocaine daily for most of the past 6 months. his mood is depressed and anxious and he has SI running through my mind, in the back of my mind. he has no intent or plan. he denies HI. endorses AH, derogatory as well as CAH to hurt and kill himself. he states he manages them by trying not to think about it, but it keeps on and on. states he is homeless and has been sleeping on the streets. he gets services at [facility] in [facility]. on being asked his three biggest target problems he endorses 1) addiction 2) mental status (anxiety/depression/chronic SI) 3) homelessness. as regards addiction, he is interested in rehab after his stay here. he asks for his meds to be adjusted re psych Sx (MD canales, informing pt with DDx one cannot really say what is substance use related and what is underneath until 3-6 months of sobriety). finally,he requests help finding housing. Mental Status Exam Mental Status Exam Narrative: Appearance: casually groomed, fair hygiene, in NAD Behavior: calm, cooperative Psychomotor: no agitation or retardation noted Speech: clear, normal rate/rhythm/volume, spontaneous TP: linear TC: no signs of psychosis Mood: depressed and anxious Affect: blunted SI:passive HI:denies AH/VH: endorses derogatory AH and CAH to suicide/self harm Delusions:does not appear internally preoccupied Diagnostics Vital Signs (24Hr): Vital Signs - 24 hr 10/05/20 18:00 10/06/20 06:00 Temperature 98.2 F 97.9 F Pulse Rate 74 64 Respiratory Rate 18 16 Blood Pressure 139/88 139/76 Pulse Oximetry 99 99 Body Mass Index 24.4 Labs Results: 10/03/20 08:25 10/05/20 13:19 Labs: Laboratory Results - last 48 hr 10/04/20 10/04/20 10/05/20 06:48 20:33 07:09 Sodium Potassium Chloride Carbon Dioxide Anion Gap BUN Creatinine Estim Creat Clear Calc Estimated GFR POC Glucose 144 H Random Glucose Calcium Total Bilirubin AST ALT Alkaline Phosphatase Total Protein Albumin Vitamin B12 255 Folate 8.4 TSH Cancelled Free T4 Urine Color Urine Appearance Urine pH Ur Specific [place] Urine Protein Urine Glucose (UA) Urine Ketones Urine Blood Urine Nitrite Ur Leukocyte Esterase Urine RBC Urine WBC Ur Squamous Epith Cells Urine Bacteria Urine Mucus 10/05/20 10/05/20 10/05/20 07:09 08:28 13:19 Sodium 137 Potassium 4.2 D Chloride 102 Carbon Dioxide 27 Anion Gap 12 BUN 10 Creatinine 0.75 Estim Creat Clear Calc 139.3 Estimated GFR > 60 POC Glucose 97 Random Glucose 168 H D Calcium 9.2 Total Bilirubin < 0.2 AST 35 ALT 24 Alkaline Phosphatase 59 Total Protein 7.0 Albumin 3.7 Vitamin B12 Folate TSH 0.31 L Free T4 0.96 Urine Color Urine Appearance Urine pH Ur Specific [place] Urine Protein Urine Glucose (UA) Urine Ketones Urine Blood Urine Nitrite Ur Leukocyte Esterase Urine RBC Urine WBC Ur Squamous Epith Cells Urine Bacteria Urine Mucus 10/05/20 10/05/20 10/05/20 13:56 20:59 21:42 Sodium Potassium Chloride Carbon Dioxide Anion Gap BUN Creatinine Estim Creat Clear Calc Estimated GFR POC Glucose 72 66 Random Glucose Calcium Total Bilirubin AST ALT Alkaline Phosphatase Total Protein Albumin Vitamin B12 Folate TSH Free T4 Urine Color YELLOW Urine Appearance HAZY Urine pH 6.5 Ur Specific [place] 1.020 Urine Protein 1+ H Urine Glucose (UA) NEG Urine Ketones NEG Urine Blood 2+ H Urine Nitrite POS H Ur Leukocyte Esterase 3+ H Urine RBC 1-4 Urine WBC TNTC H Ur Squamous Epith Cells TRACE Urine Bacteria 2+ Urine Mucus 2+ Imaging Radiology Impressions: ITS Impressions Elbow X-Ray 10/06/20 00:33 IMPRESSION: Dorsal soft tissue swelling at the elbow with a few punctate foci of radiodense debris overlying the olecranon. No underlying acute osseous abnormalities. Mild ulnotrochlear osteoarthritis. Medications Medications Current Medications Generic Name Dose Route Start Last Admin Trade Name Freq PRN Reason Stop Dose Admin Acetaminophen 650 mg 10/03/20 17:14 10/06/20 05:25 Acetaminophen 325 Mg Tablet PO 650 mg Q6H PRN Administration Headache/Pain Mild Scale (1-3) Al Hydroxide/Mg Hydroxide 30 ml 10/03/20 17:14 Magnesium Hydrox/Alum Hydrox 30 Ml Oral.Susp PO Q6H PRN Heartburn/Nausea Buprenorphine/Naloxone 1 film 10/05/20 13:10 10/06/20 09:12 Buprenorphine/Naloxone 8/2 Mg Film SUBLINGUAL 1 film BID SHABBIR Administration Bupropion HCl 300 mg 10/02/20 23:30 10/06/20 09:13 Bupropion Hcl Xl 300 Mg Tab.Er.24h PO 300 mg DAILY SHABBIR Administration Gabapentin 800 mg 10/03/20 09:00 10/06/20 09:13 Gabapentin 400 Mg Capsule PO 800 mg TID SHABBIR Administration Hydroxyzine HCl 25 mg 10/03/20 17:14 Hydroxyzine Hcl 25 Mg Tablet PO BEDTIME PRN Anxiety Ibuprofen 600 mg 10/06/20 11:30 10/06/20 12:38 Ibuprofen 600 Mg Tablet PO 10/09/20 11:29 600 mg TIDAC [facility] Administration Insulin Glargine 70 unit 10/02/20 23:45 10/05/20 22:00 Insulin Glargine,Hum.Rec.Anlog 100 Unit/Ml 10 Ml Vial SUBCUT Not Given BEDTIME [facility] Lisinopril 20 mg 10/03/20 09:00 10/06/20 09:13 Lisinopril 20 Mg Tablet PO 20 mg DAILY SHABBIR Administration Protocol Magnesium Hydroxide 30 ml 10/03/20 17:14 Milk Of Magnesia 30 Ml Oral.Susp PO DAILY PRN Constipation Metformin HCl 1,000 mg 10/02/20 23:45 10/06/20 09:13 Metformin Hcl 1,000 Mg Tablet PO 1,000 mg BIDWM SHABBIR Administration Multivitamins/Vitamin C 1 tab 10/02/20 23:30 10/06/20 09:14 Multivitamin Tablet PO 1 tab DAILY SHABBIR Administration Nicotine 21 mg 10/03/20 20:25 10/06/20 09:12 Nicotine 21 Mg Patch.Td24 TRANSDERMA 21 mg DAILY SHABBIR Administration Omeprazole 20 mg 10/03/20 06:30 10/06/20 05:25 Omeprazole 20 Mg Capsule.Dr PO 20 mg DAILY@0630 [facility] Administration Sertraline HCl 100 mg 10/03/20 09:00 10/06/20 09:14 Sertraline Hcl 100 Mg Tablet PO 100 mg DAILY SHABBIR Administration Tamsulosin HCl 0.4 mg 10/03/20 09:00 10/06/20 09:13 Tamsulosin Hcl 0.4 Mg Capsule PO 0.4 mg DAILY SHABBIR Administration Thiamine HCl 200 mg 10/03/20 19:00 10/06/20 09:12 Thiamine Hcl 100 Mg Tablet PO 200 mg DAILY SHABBIR Administration Trazodone HCl 50 mg 10/03/20 17:14 Trazodone Hcl 50 Mg Tablet PO BEDTIME PRN Insomnia Allergies Allergies Allergy/AdvReac Type Severity Reaction Status Date / Time buprenorphine [From Subutex] Allergy Angioedema Verified 06/24/20 18:27 Assessment & Plan Assessment & Plan (1) Suicidal ideation: Status: Acute Code(s): R45.851 - Suicidal ideations (2) Polysubstance (including opioids) dependence, daily use: Status: Acute Code(s): F11.20 - Opioid dependence, uncomplicated; F19.20 - Other psychoactive substance dependence, uncomplicated Assessment and Plan: detoxing from cocaine, getting stabilized on suboxone. c/o psychotic Sx and depressed mood with SI. continue on antidepressant regimen started since admitted to the hospital. defer antipsychotic administration as the nature of his AH complaints is unclear. right olecranon bursitis avoid pressure on elbow will do 3 days ibuprofen 600mg tidac if worsening can consider ortho for aspiration Greater than 50% of the session was spent on counseling and/or coordination of care Reason for contiued inpatient stay Substantial Risk for: harm to self
[2020-10-06 18:00] VITALS: BP 154/94; PULSE 69; RESP 16; TEMP 36.3; O2SAT 98
[2020-10-06 21:03] LABS: Glucose, Whole Blood 77 mg/dL (60-115)
[2020-10-06 22:16] LABS: Glucose, Whole Blood 88 mg/dL (60-115)
[2020-10-07 06:00] VITALS: BP 144/87; PULSE 58; RESP 16; TEMP 36.7; O2SAT 98
[2020-10-07] MEDS: Omeprazole 20 MG CAPSULE.DR PO (06:33)
[2020-10-07] MEDS: Ibuprofen 600 MG TABLET PO ×3 (06:33→16:54)
[2020-10-07 09:41] LABS: Glucose, Whole Blood 84 mg/dL (60-115)
[2020-10-07] MEDS: Nicotine 21 MG PATCH.TD24 TRANSDERMA (09:51)
[2020-10-07 09:52] VITALS: BP 144/87; PULSE 58
[2020-10-07] MEDS: Gabapentin 400 MG CAPSULE 800 MG PO ×3 (09:52→21:48)
[2020-10-07] MEDS: lisinopriL 20 MG TABLET PO (09:52)
[2020-10-07] MEDS: buPROPion HCl XL 300 MG TAB.ER.24H PO (09:52)
[2020-10-07] MEDS: Sertraline HCL 100 MG TABLET PO (09:52)
[2020-10-07] MEDS: Thiamine HCL 100 MG TABLET 200 MG PO (09:52)
[2020-10-07] MEDS: Tamsulosin HCL 0.4 MG CAPSULE PO (09:52)
[2020-10-07] MEDS: metFORMIN HCl 1,000 MG TABLET 1000 MG PO ×2 (09:53→16:54)
[2020-10-07] MEDS: Buprenorphine/Naloxone 8/2 mg FILM 1 FILM SUBLINGUAL ×2 (09:53→17:03)
[2020-10-07] MEDS: Multivitamin TABLET 1 TAB PO (09:54)
--- NOTE | 2020-10-07 16:25 | P.PNPSI_ITS ---
Subjective Subjective Date of Service: 10/07/20 Reason For Visit: crisis Interim History: pt slept OK. would like to go to rehab after discharge from here. states his mood is the same, then adds he is feeling depressed and anxious. denies AH since the other day. denies SI, MRE tuesday. found sleeping in his bed mid-morning, easily rousable to voice. no other questions or concerns. per staff, has been active and appropriate on the unit. asking for subsoxone dosing time change, evening dose to be given at 5 pm. lantus held for FSBS 88 last NOC. Mental Status Exam Mental Status Exam Narrative: Appearance: casually groomed, fair hygiene, in NAD Behavior: calm, cooperative, poor eye contact Psychomotor: no agitation or retardation noted Speech: clear, normal rate/rhythm/volume, spontaneous TP: linear, logical TC: no signs of psychosis Mood: depressed and anxious Affect: blunted SI:denies since 10/05 HI:none voiced AH/VH: denies since the other day Delusions:does not appear internally preoccupied Diagnostics Vital Signs (24Hr): Vital Signs - 24 hr 10/06/20 18:00 10/07/20 06:00 10/07/20 09:52 Temperature 97.4 F 98.0 F Pulse Rate 69 58 58 Respiratory Rate 16 16 Blood Pressure 154/94 H 144/87 H 144/87 H Pulse Oximetry 98 98 Body Mass Index 24.4 Labs Results: 10/03/20 08:25 10/05/20 13:19 Labs: Laboratory Results - last 48 hr 10/04/20 10/05/20 10/05/20 06:48 20:59 21:42 POC Glucose 72 66 Vitamin B12 255 Folate 8.4 10/06/20 10/06/20 10/07/20 08:20 22:07 07:56 POC Glucose 77 88 84 Vitamin B12 Folate Imaging Radiology Impressions: ITS Impressions Elbow X-Ray 10/06/20 00:33 IMPRESSION: Dorsal soft tissue swelling at the elbow with a few punctate foci of radiodense debris overlying the olecranon. No underlying acute osseous abnormalities. Mild ulnotrochlear osteoarthritis. Medications Medications Current Medications Generic Name Dose Route Start Last Admin Trade Name Freq PRN Reason Stop Dose Admin Acetaminophen 650 mg 10/03/20 17:14 10/06/20 22:15 Acetaminophen 325 Mg Tablet PO 650 mg Q6H PRN Administration Headache/Pain Mild Scale (1-3) Al Hydroxide/Mg Hydroxide 30 ml 10/03/20 17:14 Magnesium Hydrox/Alum Hydrox 30 Ml Oral.Susp PO Q6H PRN Heartburn/Nausea Buprenorphine/Naloxone 1 film 10/05/20 13:10 10/07/20 09:53 Buprenorphine/Naloxone 8/2 Mg Film SUBLINGUAL 1 film BID SHABBIR Administration Bupropion HCl 300 mg 10/02/20 23:30 10/07/20 09:52 Bupropion Hcl Xl 300 Mg Tab.Er.24h PO 300 mg DAILY SHABBIR Administration Gabapentin 800 mg 10/03/20 09:00 10/07/20 14:50 Gabapentin 400 Mg Capsule PO 800 mg TID SHABBIR Administration Hydroxyzine HCl 25 mg 10/03/20 17:14 Hydroxyzine Hcl 25 Mg Tablet PO BEDTIME PRN Anxiety Ibuprofen 600 mg 10/06/20 11:30 10/07/20 11:37 Ibuprofen 600 Mg Tablet PO 10/09/20 11:29 600 mg TIDAC [facility] Administration Insulin Glargine 70 unit 10/02/20 23:45 10/06/20 22:16 Insulin Glargine,Hum.Rec.Anlog 100 Unit/Ml 10 Ml Vial SUBCUT Not Given BEDTIME [facility] Lisinopril 20 mg 10/03/20 09:00 10/07/20 09:52 Lisinopril 20 Mg Tablet PO 20 mg DAILY SHABBIR Administration Protocol Magnesium Hydroxide 30 ml 10/03/20 17:14 Milk Of Magnesia 30 Ml Oral.Susp PO DAILY PRN Constipation Metformin HCl 1,000 mg 10/02/20 23:45 10/07/20 09:53 Metformin Hcl 1,000 Mg Tablet PO 1,000 mg BIDWM SHABBIR Administration Multivitamins/Vitamin C 1 tab 10/02/20 23:30 10/07/20 09:54 Multivitamin Tablet PO 1 tab DAILY [facility] Administration Nicotine 21 mg 10/03/20 20:25 10/07/20 09:51 Nicotine 21 Mg Patch.Td24 TRANSDERMA 21 mg DAILY SHABBIR Administration Omeprazole 20 mg 10/03/20 06:30 10/07/20 06:33 Omeprazole 20 Mg Capsule.Dr PO 20 mg DAILY@0630 [facility] Administration Sertraline HCl 100 mg 10/03/20 09:00 10/07/20 09:52 Sertraline Hcl 100 Mg Tablet PO 100 mg DAILY SHABBIR Administration Tamsulosin HCl 0.4 mg 10/03/20 09:00 10/07/20 09:52 Tamsulosin Hcl 0.4 Mg Capsule PO 0.4 mg DAILY SHABBIR Administration Thiamine HCl 200 mg 10/03/20 19:00 10/07/20 09:52 Thiamine Hcl 100 Mg Tablet PO 200 mg DAILY SHABBIR Administration Trazodone HCl 50 mg 10/03/20 17:14 Trazodone Hcl 50 Mg Tablet PO BEDTIME PRN Insomnia Allergies Allergies Allergy/AdvReac Type Severity Reaction Status Date / Time buprenorphine [From Subutex] Allergy Angioedema Verified 06/24/20 18:27 Assessment & Plan Assessment & Plan (1) Suicidal ideation: Status: Acute Code(s): R45.851 - Suicidal ideations (2) Polysubstance (including opioids) dependence, daily use: Status: Acute Code(s): F11.20 - Opioid dependence, uncomplicated; F19.20 - Other psychoactive substance dependence, uncomplicated Assessment and Plan: detoxing from cocaine, getting stabilized on suboxone. admitted with psychotic Sx and depressed mood with SI. continued on antidepressant regimen started since admitted to the hospital. deferred antipsychotic administration as the nature of his AH complaints is unclear. in the period 10/05 - 10/07, both his SI and AH have resolved. likely ongoing cocaine withdrawal. mood improved. interested in rehab referrals. right olecranon bursitis avoid pressure on elbow will do 3 days ibuprofen 600mg tidac if worsening can consider ortho for aspiration Greater than 50% of the session was spent on counseling and/or coordination of care Reason for contiued inpatient stay Substantial Risk for: harm to self
[2020-10-07] MEDS: Acetaminophen 325 MG TABLET 650 MG PO (17:39)
[2020-10-07 17:43] VITALS: BP 165/97; PULSE 90; RESP 18; TEMP 37; O2SAT 98
--- NOTE | 2020-10-07 21:24 | P.EN_ITS ---
Event Note Date of Service: 10/07/20 Event Note: pt with poisitive urine done on the . Pt symptomatic stating d iscomfort on urination. cultures returned today showing klebsiella sensitive to bactrim. meds ordered.
[2020-10-07] MEDS: Insulin Glargine,Hum.rec.anlog 100 UNIT/ML 10 ML VIAL 70 UNIT SUBCUT (21:47)
[2020-10-07 21:56] LABS: Glucose, Whole Blood 100 mg/dL (60-115)
[2020-10-07 22:00] VITALS: BP 159/92; PULSE 102; TEMP 36.9; O2SAT 100
[2020-10-07] MEDS: traZODone HCL 50 MG TABLET PO (22:39)
--- NOTE | 2020-10-07 23:39 | PC.NURSE ---
HOSPITALIST NOTIFIED OF URINE RESULTS UA AND + KIEBSIELLA PNEUMINIAE. STARTED ON ANTIBIOTIC.
[2020-10-08 06:00] VITALS: BP 122/68; PULSE 66; TEMP 36.8; O2SAT 97
[2020-10-08] MEDS: Ibuprofen 600 MG TABLET PO (06:29)
[2020-10-08] MEDS: Omeprazole 20 MG CAPSULE.DR PO (06:29)
[2020-10-08 06:38] LABS: Glucose, Whole Blood 137 mg/dL (60-115)
[2020-10-08 08:03] VITALS: BP 138/85; PULSE 71
[2020-10-08] MEDS: Sertraline HCL 100 MG TABLET PO (08:03)
[2020-10-08] MEDS: Nicotine 21 MG PATCH.TD24 TRANSDERMA (08:03)
[2020-10-08] MEDS: Tamsulosin HCL 0.4 MG CAPSULE PO (08:03)
[2020-10-08] MEDS: lisinopriL 20 MG TABLET PO (08:03)
[2020-10-08] MEDS: buPROPion HCl XL 300 MG TAB.ER.24H PO (08:03)
[2020-10-08] MEDS: metFORMIN HCl 1,000 MG TABLET 1000 MG PO (08:04)
[2020-10-08] MEDS: Multivitamin TABLET 1 TAB PO (08:04)
[2020-10-08] MEDS: Acetaminophen 325 MG TABLET 650 MG PO (08:04)
[2020-10-08] MEDS: Thiamine HCL 100 MG TABLET 200 MG PO (08:04)
[2020-10-08] MEDS: Gabapentin 400 MG CAPSULE 800 MG PO (08:04)
[2020-10-08] MEDS: Buprenorphine/Naloxone 8/2 mg FILM 1 FILM SUBLINGUAL (08:04)
--- NOTE | 2020-10-08 11:38 | PM.PSYDC ---
DS: Providers Provider Date of Service: 10/08/20 Date of admission: 10/03/20 17:15 Date of discharge: 10/08/20 Primary care physician: [facility] Consults: 10/06/20 00:08 Consult to Hospitalist Stat Consulting Provider: Hospitalist Reason For Exam: Patient reports right elbow pain 01/18 possible br DS: Diagnosis Discharge Diagnosis (1) Suicidal ideation: Status: Acute (2) Polysubstance (including opioids) dependence, daily use: Status: Acute DS: Medications Discharge Medications Home Medications: Home Medications Medication Instructions Recorded Confirmed omeprazole 20 mg PO DAILY 06/13/20 10/02/20 lisinopril 20 mg PO DAILY 07/03/20 10/02/20 Lantus U-100 Insulin 70 unit SUBCUT BEDTIME 10/02/20 10/02/20 bupropion HCl 1 tab PO QAM 10/02/20 10/02/20 gabapentin 800 mg PO TID 10/02/20 10/02/20 insulin lispro [Humalog U-100 2 - 17 unit SUBCUT TID 10/02/20 10/02/20 Insulin] multivitamin [One Daily 1 tab PO QAM 10/02/20 10/02/20 Multivitamin] quetiapine 50 mg PO BID 10/02/20 10/02/20 sertraline 100 mg PO QAM 10/02/20 10/02/20 tamsulosin 1 tab PO QAM 10/02/20 10/02/20 trazodone 1 tab PO BEDTIME 10/02/20 10/02/20 Previous Rx's Medication Instructions Recorded metformin 1,000 mg PO BIDWM 30 Days #60 tab 07/09/20 buprenorphine-naloxone [Suboxone] 1 film SUBLINGUAL BID@0900,1700 2 10/08/20 Days #4 ea sulfamethoxazole-trimethoprim 1 tab PO Q12H 7 Days #14 tab 10/08/20 Discharge Plan Discharge Anticipated Discharge Date/Time: 10/08/20 12:00 Patient Disposition: Long-Term Discharge Diagnosis: Polysubstance Use Disorder Mood Disorder NOS Psychotic Disorder NOS Referrals: Kerry Tapia (psychiatrist) [Other] - 11/05/20 9:30 am (Telehealth appointment) Columba Finley (therapist) [Other] (Voicemail left, she will follow up with you to schedule appointment) [facility] [Other] (Referral submitted. Call daily for bed availability) [facility] (Suboxone) [Other] - 10/10/20 9:30 am [facility] [Primary Care Provider] - 1 Week (PT REFUSES TO SIGN RELEASES AND REFUSED TO HAVE STAFF SCHEDULE) Discharge Medications: New sulfamethoxazole-trimethoprim 800-160 mg Tablet 1 tab PO Q12H 7 Days Qty: 14 RF: 0 buprenorphine-naloxone [Suboxone] 8-2 mg Film 1 film sublingual BID@0900,1700 2 Days Qty: 4 RF: 0 Continued lisinopril 20 mg Tablet 20 mg PO DAILY RF: 0 metformin 1,000 mg Tablet 1,000 mg PO BIDWM 30 Days Qty: 60 RF: 0 omeprazole 20 mg Capsule,Delayed Release(Dr/Ec) 20 mg PO DAILY RF: 0 insulin lispro [Humalog U-100 Insulin] 100 unit/mL solution 2 - 17 unit subcut TID RF: 0 bupropion HCl 300 mg tablet extended release 24 hr 1 tab PO QAM RF: 0 multivitamin [One Daily Multivitamin] Tablet 1 tab PO QAM RF: 0 sertraline 100 mg tablet 100 mg PO QAM RF: 0 tamsulosin 0.4 mg capsule 1 tab PO QAM RF: 0 trazodone 100 mg tablet 1 tab PO BEDTIME RF: 0 quetiapine 50 mg tablet 50 mg PO BID RF: 0 Lantus U-100 Insulin 100 unit/mL solution 70 unit subcut BEDTIME RF: 0 gabapentin 800 mg tablet 800 mg PO TID RF: 0 Discharge Orders: Discharge Order (Routine); Ordered 10/08/20 Ordered By: Martin Davenport Diet: diabetic diet Activity on Discharge: As tolerated Stand Alone Forms: Patient Portal Discharge page, Community Support Care Plan Goals: remain absinent from illicit substances, continue to take medications as prescribed. maintain non-depressed mood without suicidality. Health Concerns: diabetes mellitus olecranon bursitis urinary tract infection Plan of Treatment: meet with outpt therapist, medication prescriber, and suboxone clinic clinicians. Assessment: safe for discharge to outpt services. psychotic symptoms and suicidality resolved, detox complete. Discharge Date/Time: 10/08/20 11:30 Data Data Completed and Pending Completed studies during hospitalization [Text1]: 10/02/20 10/02/20 10/02/20 20:23 20:26 21:07 WBC RBC Hgb Hct MCV MCH MCHC RDW Plt Count MPV Immature Gran % (Auto) Neut % (Auto) Lymph % (Auto) [place] % (Auto) Eos % (Auto) Baso % (Auto) Lymph # (Auto) [place] # (Auto) Eos # (Auto) Baso # (Auto) Abs Immat Gran (auto) Absolute Neuts (auto) Absolute Nucleated RBC Nucleated RBC % (auto) Sodium Potassium Chloride Carbon Dioxide Anion Gap BUN Creatinine Estim Creat Clear Calc Estimated GFR POC Glucose 162 H Random Glucose Estimat Average Glucose Hemoglobin A1c % Calcium Total Bilirubin AST ALT Alkaline Phosphatase Total Protein Albumin Triglycerides Cholesterol LDL Cholesterol, Calc HDL Cholesterol Vitamin B12 Folate TSH Free T4 Urine Color Urine Appearance Urine pH Ur Specific [place] Urine Protein Urine Glucose (UA) Urine Ketones Urine Blood Urine Nitrite Ur Leukocyte Esterase Urine RBC Urine WBC Ur Squamous Epith Cells Urine Bacteria Urine Mucus Urine Opiates Screen POSITIVE H Ur Barbiturates Screen Not Detected Ur Phencyclidine Scrn Not Detected Ur Amphetamines Screen POSITIVE H U Benzodiazepines Scrn POSITIVE H Urine Cocaine Screen POSITIVE H U Marijuana (THC) Screen POSITIVE H COVID-19 (DELIO) Negative COVID-19 Clin Com See Note 10/03/20 10/03/20 10/03/20 01:27 08:14 08:25 WBC 5.0 RBC 4.33 L Hgb 13.2 L Hct 38.8 L MCV 89.6 MCH 30.5 MCHC 34.0 RDW 13.4 Plt Count 338 MPV 9.5 Immature Gran % (Auto) 0.0 Neut % (Auto) 64.6 Lymph % (Auto) 21.6 Rapides % (Auto) 12.0 H Eos % (Auto) 1.2 Baso % (Auto) 0.6 Lymph # (Auto) 1.1 L [place] # (Auto) 0.6 Eos # (Auto) 0.1 Baso # (Auto) 0.0 Abs Immat Gran (auto) 0.00 Absolute Neuts (auto) 3.2 Absolute Nucleated RBC 0.000 Nucleated RBC % (auto) 0.0 Sodium Potassium Chloride Carbon Dioxide Anion Gap BUN Creatinine Estim Creat Clear Calc Estimated GFR POC Glucose 115 129 H Random Glucose Estimat Average Glucose Hemoglobin A1c % Calcium Total Bilirubin AST ALT Alkaline Phosphatase Total Protein Albumin Triglycerides Cholesterol LDL Cholesterol, Calc HDL Cholesterol Vitamin B12 Folate TSH Free T4 Urine Color Urine Appearance Urine pH Ur Specific [place] Urine Protein Urine Glucose (UA) Urine Ketones Urine Blood Urine Nitrite Ur Leukocyte Esterase Urine RBC Urine WBC Ur Squamous Epith Cells Urine Bacteria Urine Mucus Urine Opiates Screen Ur Barbiturates Screen Ur Phencyclidine Scrn Ur Amphetamines Screen U Benzodiazepines Scrn Urine Cocaine Screen U Marijuana (THC) Screen COVID-19 (DELIO) COVID-19 Clin Com 10/03/20 10/03/20 10/03/20 08:25 08:25 12:49 WBC RBC Hgb Hct MCV MCH MCHC RDW Plt Count MPV Immature Gran % (Auto) Neut % (Auto) Lymph % (Auto) [place] % (Auto) Eos % (Auto) Baso % (Auto) Lymph # (Auto) [place] # (Auto) Eos # (Auto) Baso # (Auto) Abs Immat Gran (auto) Absolute Neuts (auto) Absolute Nucleated RBC Nucleated RBC % (auto) Sodium 140 Potassium 3.4 Chloride 104 Carbon Dioxide 29 Anion Gap 10 L BUN 9 Creatinine 0.70 Estim Creat Clear Calc 149.3 Estimated GFR > 60 POC Glucose 115 Random Glucose 121 H D Estimat Average Glucose Hemoglobin A1c % Calcium 8.9 Total Bilirubin 0.4 AST 38 H ALT 23 Alkaline Phosphatase 64 D Total Protein 6.7 Albumin 3.6 Triglycerides Cholesterol LDL Cholesterol, Calc HDL Cholesterol Vitamin B12 Folate TSH Free T4 Urine Color Urine Appearance Urine pH Ur Specific [place] Urine Protein Urine Glucose (UA) Urine Ketones Urine Blood Urine Nitrite Ur Leukocyte Esterase Urine RBC Urine WBC Ur Squamous Epith Cells Urine Bacteria Urine Mucus Urine Opiates Screen Not Detected Ur Barbiturates Screen Not Detected Ur Phencyclidine Scrn Not Detected Ur Amphetamines Screen Not Detected U Benzodiazepines Scrn POSITIVE H Urine Cocaine Screen POSITIVE H U Marijuana (THC) Screen POSITIVE H COVID-19 (DELIO) COVID-19 Clin Com 10/03/20 10/03/20 10/04/20 17:45 20:55 06:48 WBC RBC Hgb Hct MCV MCH MCHC RDW Plt Count MPV Immature Gran % (Auto) Neut % (Auto) Lymph % (Auto) [place] % (Auto) Eos % (Auto) Baso % (Auto) Lymph # (Auto) [place] # (Auto) Eos # (Auto) Baso # (Auto) Abs Immat Gran (auto) Absolute Neuts (auto) Absolute Nucleated RBC Nucleated RBC % (auto) Sodium Potassium Chloride Carbon Dioxide Anion Gap BUN Creatinine Estim Creat Clear Calc Estimated GFR POC Glucose 95 100 Random Glucose Estimat Average Glucose 123 Hemoglobin A1c % 5.9 Calcium Total Bilirubin AST ALT Alkaline Phosphatase Total Protein Albumin Triglycerides Cholesterol LDL Cholesterol, Calc HDL Cholesterol Vitamin B12 Folate TSH Free T4 Urine Color Urine Appearance Urine pH Ur Specific [place] Urine Protein Urine Glucose (UA) Urine Ketones Urine Blood Urine Nitrite Ur Leukocyte Esterase Urine RBC Urine WBC Ur Squamous Epith Cells Urine Bacteria Urine Mucus Urine Opiates Screen Ur Barbiturates Screen Ur Phencyclidine Scrn Ur Amphetamines Screen U Benzodiazepines Scrn Urine Cocaine Screen U Marijuana (THC) Screen COVID-19 (DELIO) COVID-19 [employer] 10/04/20 10/04/20 10/04/20 06:48 06:48 08:18 WBC RBC Hgb Hct MCV MCH MCHC RDW Plt Count MPV Immature Gran % (Auto) Neut % (Auto) Lymph % (Auto) [place] % (Auto) Eos % (Auto) Baso % (Auto) Lymph # (Auto) [place] # (Auto) Eos # (Auto) Baso # (Auto) Abs Immat Gran (auto) Absolute Neuts (auto) Absolute Nucleated RBC Nucleated RBC % (auto) Sodium Potassium Chloride Carbon Dioxide Anion Gap BUN Creatinine Estim Creat Clear Calc Estimated GFR POC Glucose 96 Random Glucose Estimat Average Glucose Hemoglobin A1c % Calcium Total Bilirubin AST ALT Alkaline Phosphatase Total Protein Albumin Triglycerides 78 Cholesterol 135 LDL Cholesterol, Calc 78 HDL Cholesterol 42 Vitamin B12 255 Folate 8.4 TSH 0.05 L Free T4 Urine Color Urine Appearance Urine pH Ur Specific [place] Urine Protein Urine Glucose (UA) Urine Ketones Urine Blood Urine Nitrite Ur Leukocyte Esterase Urine RBC Urine WBC Ur Squamous Epith Cells Urine Bacteria Urine Mucus Urine Opiates Screen Ur Barbiturates Screen Ur Phencyclidine Scrn Ur Amphetamines Screen U Benzodiazepines Scrn Urine Cocaine Screen U Marijuana (THC) Screen COVID-19 (DELIO) COVID-19 [employer] 10/04/20 10/05/20 10/05/20 20:33 07:09 07:09 WBC RBC Hgb Hct MCV MCH MCHC RDW Plt Count MPV Immature Gran % (Auto) Neut % (Auto) Lymph % (Auto) [place] % (Auto) Eos % (Auto) Baso % (Auto) Lymph # (Auto) [place] # (Auto) Eos # (Auto) Baso # (Auto) Abs Immat Gran (auto) Absolute Neuts (auto) Absolute Nucleated RBC Nucleated RBC % (auto) Sodium Potassium Chloride Carbon Dioxide Anion Gap BUN Creatinine Estim Creat Clear Calc Estimated GFR POC Glucose 144 H Random Glucose Estimat Average Glucose Hemoglobin A1c % Calcium Total Bilirubin AST ALT Alkaline Phosphatase Total Protein Albumin Triglycerides Cholesterol LDL Cholesterol, Calc HDL Cholesterol Vitamin B12 Folate TSH Cancelled 0.31 L Free T4 0.96 Urine Color Urine Appearance Urine pH Ur Specific [place] Urine Protein Urine Glucose (UA) Urine Ketones Urine Blood Urine Nitrite Ur Leukocyte Esterase Urine RBC Urine WBC Ur Squamous Epith Cells Urine Bacteria Urine Mucus Urine Opiates Screen Ur Barbiturates Screen Ur Phencyclidine Scrn Ur Amphetamines Screen U Benzodiazepines Scrn Urine Cocaine Screen U Marijuana (THC) Screen COVID-19 (DELIO) [employer] 10/05/20 10/05/20 10/05/20 08:28 13:19 13:56 WBC RBC Hgb Hct MCV MCH MCHC RDW Plt Count MPV Immature Gran % (Auto) Neut % (Auto) Lymph % (Auto) [place] % (Auto) Eos % (Auto) Baso % (Auto) Lymph # (Auto) [place] # (Auto) Eos # (Auto) Baso # (Auto) Abs Immat Gran (auto) Absolute Neuts (auto) Absolute Nucleated RBC Nucleated RBC % (auto) Sodium 137 Potassium 4.2 D Chloride 102 Carbon Dioxide 27 Anion Gap 12 BUN 10 Creatinine 0.75 Estim Creat Clear Calc 139.3 Estimated GFR > 60 POC Glucose 97 Random Glucose 168 H D Estimat Average Glucose Hemoglobin A1c % Calcium 9.2 Total Bilirubin < 0.2 AST 35 ALT 24 Alkaline Phosphatase 59 Total Protein 7.0 Albumin 3.7 Triglycerides Cholesterol LDL Cholesterol, Calc HDL Cholesterol Vitamin B12 Folate TSH Free T4 Urine Color YELLOW Urine Appearance HAZY Urine pH 6.5 Ur Specific [place] 1.020 Urine Protein 1+ H Urine Glucose (UA) NEG Urine Ketones NEG Urine Blood 2+ H Urine Nitrite POS H Ur Leukocyte Esterase 3+ H Urine RBC 1-4 Urine WBC TNTC H Ur Squamous Epith Cells TRACE Urine Bacteria 2+ Urine Mucus 2+ Urine Opiates Screen Ur Barbiturates Screen Ur Phencyclidine Scrn Ur Amphetamines Screen U Benzodiazepines Scrn Urine Cocaine Screen U Marijuana (THC) Screen COVID-19 (DELIO) COVID-19 [employer] 06/10/05/20 10/06/20 20:59 21:42 08:20 WBC RBC Hgb Hct MCV MCH MCHC RDW Plt Count MPV Immature Gran % (Auto) Neut % (Auto) Lymph % (Auto) [place] % (Auto) Eos % (Auto) Baso % (Auto) Lymph # (Auto) [place] # (Auto) Eos # (Auto) Baso # (Auto) Abs Immat Gran (auto) Absolute Neuts (auto) Absolute Nucleated RBC Nucleated RBC % (auto) Sodium Potassium Chloride Carbon Dioxide Anion Gap BUN Creatinine Estim Creat Clear Calc Estimated GFR POC Glucose 72 66 77 Random Glucose Estimat Average Glucose Hemoglobin A1c % Calcium Total Bilirubin AST ALT Alkaline Phosphatase Total Protein Albumin Triglycerides Cholesterol LDL Cholesterol, Calc HDL Cholesterol Vitamin B12 Folate TSH Free T4 Urine Color Urine Appearance Urine pH Ur Specific [place] Urine Protein Urine Glucose (UA) Urine Ketones Urine Blood Urine Nitrite Ur Leukocyte Esterase Urine RBC Urine WBC Ur Squamous Epith Cells Urine Bacteria Urine Mucus Urine Opiates Screen Ur Barbiturates Screen Ur Phencyclidine Scrn Ur Amphetamines Screen U Benzodiazepines Scrn Urine Cocaine Screen U Marijuana (THC) Screen COVID-19 (DELIO) [employer] 10/06/20 10/07/20 10/07/20 22:07 07:56 21:46 WBC RBC Hgb Hct MCV MCH MCHC RDW Plt Count MPV Immature Gran % (Auto) Neut % (Auto) Lymph % (Auto) [place] % (Auto) Eos % (Auto) Baso % (Auto) Lymph # (Auto) [place] # (Auto) Eos # (Auto) Baso # (Auto) Abs Immat Gran (auto) Absolute Neuts (auto) Absolute Nucleated RBC Nucleated RBC % (auto) Sodium Potassium Chloride Carbon Dioxide Anion Gap BUN Creatinine Estim Creat Clear Calc Estimated GFR POC Glucose 88 84 100 Random Glucose Estimat Average Glucose Hemoglobin A1c % Calcium Total Bilirubin AST ALT Alkaline Phosphatase Total Protein Albumin Triglycerides Cholesterol LDL Cholesterol, Calc HDL Cholesterol Vitamin B12 Folate TSH Free T4 Urine Color Urine Appearance Urine pH Ur Specific [place] Urine Protein Urine Glucose (UA) Urine Ketones Urine Blood Urine Nitrite Ur Leukocyte Esterase Urine RBC Urine WBC Ur Squamous Epith Cells Urine Bacteria Urine Mucus Urine Opiates Screen Ur Barbiturates Screen Ur Phencyclidine Scrn Ur Amphetamines Screen U Benzodiazepines Scrn Urine Cocaine Screen U Marijuana (THC) Screen COVID-19 (DELIO) [facility]-[employer] 10/08/20 06:28 WBC RBC Hgb Hct MCV MCH MCHC RDW Plt Count MPV Immature Gran % (Auto) Neut % (Auto) Lymph % (Auto) [place] % (Auto) Eos % (Auto) Baso % (Auto) Lymph # (Auto) [place] # (Auto) Eos # (Auto) Baso # (Auto) Abs Immat Gran (auto) Absolute Neuts (auto) Absolute Nucleated RBC Nucleated RBC % (auto) Sodium Potassium Chloride Carbon Dioxide Anion Gap BUN Creatinine Estim Creat Clear Calc Estimated GFR POC Glucose 137 H Random Glucose Estimat Average Glucose Hemoglobin A1c % Calcium Total Bilirubin AST ALT Alkaline Phosphatase Total Protein Albumin Triglycerides Cholesterol LDL Cholesterol, Calc HDL Cholesterol Vitamin B12 Folate TSH Free T4 Urine Color Urine Appearance Urine pH Ur Specific [place] Urine Protein Urine Glucose (UA) Urine Ketones Urine Blood Urine Nitrite Ur Leukocyte Esterase Urine RBC Urine WBC Ur Squamous Epith Cells Urine Bacteria Urine Mucus Urine Opiates Screen Ur Barbiturates Screen Ur Phencyclidine Scrn Ur Amphetamines Screen U Benzodiazepines Scrn Urine Cocaine Screen U Marijuana (THC) Screen COVID-19 (DELIO) COVID-19 Clin Com 10/05/20 Unknown Urine clean catch - Urine wheeler top Urine Culture - Final Klebsiella pneumoniae Imaging Diagnostic Imaging Impressions Elbow X-Ray 10/06/20 00:33 IMPRESSION: Dorsal soft tissue swelling at the elbow with a few punctate foci of radiodense debris overlying the olecranon. No underlying acute osseous abnormalities. Mild ulnotrochlear osteoarthritis. DS: Summary Hospital Course Hospital Course: per Marina 10/04 Admission Note: Mr. Sanchez is a 45 year-old male with hx of MDD with psychosis, polysubstance use disorder who is known to this unit through several admission with similar presentation increased depression, AH in context of ongoing substance use. He was last inpatient in psych unit on M5 on 07/09/2020. He self presented to [facility] ED reporting increased depression, suicidal ideation in context of substance use including alcohol, heroin and cocaine. On the unit, pt endorses depressed mood, anhedonia, AH and passive suicidal ideation. He reports not continuing suboxone but will like to be reconnected with suboxone clinic here at [facility]. He reports multiple stressors including lack of stable housing, limited social supports. He denies any intent or plan to hurt himself. Past Psychiatric History: Numerous psychiatric admissions by history- recently 12/2019 [facility], 10/2019 [facility], 03/29 [facility], 03/29 [facility], 01/27 [facility], 7+ other admits prior OP: [facility]: Giovanny Smith-therapist Kerry Tapia Psychotropics on admit: Cogentin, Suboxone, Wellbutrin, Clonidine, Cymbalta, Gabapentin, Atarax, Acala, Remeron, Trilafon, Seroquel, Topamax, Trazodone. Many of these held during ER admit due to medical SE. Hx of suicide attempt x 1 via Trazodone overdose. Trials: Zoloft, Haldol, Thorazine per Marina 10/05 Progress Note: Pt continues to endorse depressed mood, anhedonia, poor sleep/appetite. He endorses suicidal ideation but denies any plan or intent. He reports no voices today. He reports urinary frequency and foul urine odor- will order UA, also PVR as pt with hx of urinary retention. He was started on suboxone yesterday. Today continues to report loose stools, cramping. per Issac 10/06 Progress Note: Pt continues to endorse depressed mood, anhedonia, poor sleep/appetite. He endorses suicidal ideation but denies any plan or intent. He reports no voices today. pt reports having used cocaine daily for most of the past 6 months. his mood is depressed and anxious and he has SI running through my mind, in the back of my mind. he has no intent or plan. he denies HI. endorses AH, derogatory as well as CAH to hurt and kill himself. he states he manages them by trying not to think about it, but it keeps on and on. states he is homeless and has been sleeping on the streets. he gets services at [facility] in [facility]. on being asked his three biggest target problems he endorses 1) addiction 2) mental status (anxiety/depression/chronic SI) 3) homelessness. as regards addiction, he is interested in rehab after his stay here. he asks for his meds to be adjusted re psych Sx (MD canales, informing pt with DDx one cannot really say what is substance use related and what is underneath until 3-6 months of sobriety). finally,he requests help finding housing. per Issac MATA 10/07 Progress Note: pt slept OK. would like to go to rehab after discharge from here. states his mood is the same, then adds he is feeling depressed and anxious. denies AH since the other day. denies SI, MRE tuesday. found sleeping in his bed mid-morning, easily rousable to voice. no other questions or concerns. per staff, has been active and appropriate on the unit. asking for subsoxone dosing time change, evening dose to be given at 5 pm. lantus held for FSBS 88 last NOC. 10/08: pt reports his mood is a little better. feeling less sick from withdrawal. denies SI/AVH. had restless sleep last night. awaiting word from [facility] rehab program to which he has been referred. pt then states he would like to discharge today, as soon as possible, regardless of word from the [facility]. agrees to request, as he does not currently appear dangerous. a suboxone appointment is arranged by SW, as well as therapy and med mgmt appointments. per staff, pt not attending groups, saying he is too tired for them and uncomfortable from withdrawal. he reported AH to staff weapons officer yesterday days as well as 8/10 elbow pain and less SI. UTI diagnosed, bactrim started. discharged late morning 10/08 per pt request. Status at Discharge Cognitive/behavioral status at discharge: adequately dressed and groomed, no PMA/PMR, cooperative but with poor eye contact. speech soft and decreased in amount. thoughts linear and logical, affect constricted and appropriate to circumstance. mood a little better. denies AVH. denies SI. Functional status at discharge: independent ambulation Overall status at discharge: patient is back to baseline Time Spent with Patient Time attestation: Total time spent providing and/or coordinating discharge services: Time spent: Greater than 30 minutes
== END 2020-10-08 11:30 | disposition home or self-care (01) | DRG 751 ==
LOC: HO.ED 10-03 09:16 → HO.PADLT16 10-03 17:42
PROVIDERS: Nurse Practitioner Primary Care; Admitting Provider Social Worker; Emergency Provider Emergency Medicine; Visit Provider Psychiatry & Neurology Psychiatry
DX: F33.3 Major depressive disorder, recurrent, severe with psychotic symptoms (principal); R45.851 Suicidal ideations; F11.20 Opioid dependence, uncomplicated; M70.21 Olecranon bursitis, right elbow; F12.90 Cannabis use, unspecified, uncomplicated; F17.210 Nicotine dependence, cigarettes, uncomplicated; N39.0 Urinary tract infection, site not specified; Z91.5 Personal history of self-harm; B96.1 Klebsiella pneumoniae [K. pneumoniae] as the cause of diseases classified elsewhere; Z20.822 Contact with and (suspected) exposure to COVID-19; Z71.6 Tobacco abuse counseling; Z79.4 Long term (current) use of insulin; Z79.899 Other long term (current) drug therapy
CPT/HCPCS: 36415; 73080; 80053; 80061; 80307; 81001; 81003; 82607; 82746; 82947; 83036; 84439; 84443; 85025; 87086; 87088; 87186; 87635; 93005; 99285; Q0163

== ENCOUNTER → 2020-10-10 09:31 | Outpatient (BNVA) | payer MEDICAID, SELFPAY | PROVIDERS: Visit Provider Internal Medicine | DX: F11.20 Opioid dependence, uncomplicated (principal); F19.20 Other psychoactive substance dependence, uncomplicated; F19.959 Other psychoactive substance use, unspecified with psychoactive substance-induced psychotic disorder, unspecified; F12.90 Cannabis use, unspecified, uncomplicated; B19.20 Unspecified viral hepatitis C without hepatic coma; Z72.89 Other problems related to lifestyle | CPT/HCPCS: 80305; 99202; 99212 ==

== ENCOUNTER 2020-10-19 22:57 | Emergency (ER) | payer MEDICAID, SELFPAY ==
--- NOTE | ~2020-10-19 | CT_ITS ---
EXAMINATION: CT ABDOMEN AND PELVIS WITH CONTRAST CLINICAL INFORMATION: Diffuse abdominal pain. History of diverticulitis. COMPARISON: None TECHNIQUE: Multidetector volumetric images were obtained from the superior aspect of the liver through the pubic symphysis following administration 85 mL of Omnipaque 350 intravenous contrast. Sagittal and coronal reformatted images were obtained on the technologist's workstation. Oral contrast: No This CT examination was performed using dose optimization techniques as appropriate, variously including the following: *Automated exposure control *Adjustment of mA and/or kV according to patient size (this includes techniques or standardized protocols for targeted exams where dose is matched to indication/reason for exam; i.e. extremities or head) *Use of iterative reconstruction technique DLP: 541 mGy-cm FINDINGS: LUNG BASES: The visualized lung bases are unremarkable. LIVER, GALLBLADDER, AND BILIARY TREE: The liver is normal in size, shape, and attenuation. No focal hepatic lesion or biliary ductal dilatation is present. The gallbladder is unremarkable with no evidence of radiopaque gallstones, gallbladder wall thickening, or obvious pericholecystic inflammatory changes. PANCREAS: Unremarkable. SPLEEN: Unremarkable. ADRENAL GLANDS: Unremarkable. KIDNEYS AND URETERS: The kidneys are normal in size, shape, and attenuation. No hydronephrosis, hydroureter, or calculi seen. No perinephric stranding. 0.7 cm right lower pole cortical simple cyst. No follow-up imaging recommended. BLADDER: Decompressed with no gross abnormality. GASTROINTESTINAL TRACT: The stomach is unremarkable. Normal caliber small bowel. There is no obstruction. Normal appendix. Prominent colonic diverticulosis, most prominently at the sigmoid colon. There is mild soft tissue swelling with adjacent inflammation seen. No free air. No free fluid. ABDOMINAL WALL: No significant hernia is appreciated. LYMPH NODES: Normal. VASCULAR: Unremarkable. PELVIC VISCERA: The prostate and seminal vesicles are unremarkable. OSSEOUS STRUCTURES: No acute or suspicious osseous abnormality. Mild degenerative changes of the spine. CT/CT abdomen pelvis w con IMPRESSION: Mild sigmoid diverticulitis.
[2020-10-19 23:54] VITALS: BP 156/84; PULSE 89; RESP 15; TEMP 37; O2SAT 96; BMI 24.4
[2020-10-20] VITALS (8 sets, daily range): BP systolic 96–122; BP diastolic 42–74; PULSE 69–84; RESP 16–22; TEMP 36.9–37.1; O2SAT 96–99
--- NOTE | 2020-10-20 00:19 | ED.GENADULT ---
HPI - General Adult General Chief complaint: Psychiatric Symptoms Stated complaint: ABD pain/psychiatric symptoms Time Seen by Provider: 10/20/20 00:14 Source: patient Mode of arrival: ambulatory Limitations: no limitations History of Present Illness HPI narrative: Patient comes emergency room complaining of abdominal pain. Patient states that he has been constipated, complaining of diffuse abdominal pain, patient does have history of diverticulitis. Patient complaining of nausea, no vomiting or diarrhea, fever. After checking in for abdominal pain, patient told the front staff that he is suicidal, his plan is to jump off the [facility], quit using drugs prior to arrival. Denies chest pain or shortness of breath. Related Data Home Medications Medication Instructions Recorded Confirmed omeprazole 20 mg PO DAILY 06/13/20 10/02/20 lisinopril 20 mg PO DAILY 07/03/20 10/02/20 Lantus U-100 Insulin 70 unit SUBCUT BEDTIME 10/02/20 10/02/20 bupropion HCl 1 tab PO QAM 10/02/20 10/02/20 gabapentin 800 mg PO TID 10/02/20 10/02/20 insulin lispro [Humalog U-100 2 - 17 unit SUBCUT TID 10/02/20 10/02/20 Insulin] multivitamin [One Daily 1 tab PO QAM 10/02/20 10/02/20 Multivitamin] quetiapine 50 mg PO BID 10/02/20 10/02/20 sertraline 100 mg PO QAM 10/02/20 10/02/20 tamsulosin 1 tab PO QAM 10/02/20 10/02/20 trazodone 1 tab PO BEDTIME 10/02/20 10/02/20 Previous Rx's Medication Instructions Recorded metformin 1,000 mg PO BIDWM 30 Days #60 tab 07/09/20 sulfamethoxazole-trimethoprim 1 tab PO Q12H 7 Days #14 tab 10/08/20 buprenorphine 8 mg-naloxone 2 mg 2 film SUBLINGUAL DAILY 7 Days #14 10/17/20 sublingual film ea Allergies Allergy/AdvReac Type Severity Reaction Status Date / Time buprenorphine [From Subutex] Allergy Angioedema Verified 06/24/20 18:27 Review of Systems Review of Systems: Constitutional : No Weight loss, No Fever, No Chills, No Night Sweats, No Fatigue, No Malaise ENT/Mouth : No Hearing loss, No Ear Pain, No Nasal Congestion, No Sinus Pain, No Hoarseness, No sore throat, No Rhinorrhea, No Swallowing Difficulty Eyes: No Eye Pain, No Swelling, No Redness, No Foreign Body, No Discharge, No Vision Changes Cardiovascular : No Chest Pain, No SOB, No Dyspnea on Exertion, No Orthopnea, No Edema, No Palpitations Respiratory : No Cough, No Sputum, No Wheezing, No Smoke Exposure, No Dyspnea Gastrointestinal : No Nausea, No Vomiting, No Diarrhea, complaining of constipation and diffuse abdominal pain Genitourinary : no irregular bleeding, No Dysuria, No Urinary Frequency, No Hematuria, No Urinary Incontinence, No Urgency, No Flank Pain, No Urinary Flow Changes, No Hesitancy Musculoskeletal : No joint pain, No Myalgias, No Joint Swelling Skin : No Skin Lesions, No rash Neuro : No Weakness, No Numbness, No Paresthesias, No Loss of Consciousness, No Dizziness, No Headache Psych : No Anxiety/Panic, complaining of suicidal ideation, wanting to jump off a bridge and was [place] Heme/Lymph: No Bruising, No Bleeding,No Lymphadenopathy Endocrine : No Polyuria, No Polydipsia, No Temperature Intolerance FOR[facility] Past Medical History Medical History Alcohol use Alcohol use disorder, severe, dependence Chronic pain Diverticulitis DM II (diabetes mellitus, type II), controlled High cholesterol (~10/11/20) HTN (hypertension) Marijuana use Neuropathy Opioid use disorder Opioid use disorder Stimulant use disorder Tobacco use disorder Urinary hesitancy Social History Social History Household Members: None Housing: Homeless Do you presently have visiting nurse or other home services: No Unable to assess alcohol history related to: Refusing to respond Alcohol intake: current Alcohol intake frequency: 0-2 drinks per day Alcohol type: beer and hard liquor Patient Tobacco Use Status: Current everyday Tobacco user Tobacco use type: Cigarette Cigarette Packs Per Day: 1.5 Cigarettes Per Day: 30.0 Years Smoked: 10 Second Hand Smoke Exposure: No Substance Use Type: Amphetamines, Crack/Cocaine, Heroin, IV Drugs, Marijuana and Opiates Advance Directives: No Advance Directives Information Provided: No service: No Sexual orientation: Straight/Heterosexual Physical Exam Vital Signs: Vital Signs: Last Vital Signs Temp 98.4 F 10/20/20 06:00 Pulse 69 10/20/20 06:00 Resp 18 10/20/20 06:00 BP 106/53 L 10/20/20 06:00 Pulse Ox 98 10/20/20 06:00 Body Mass Index 24.4 Appearance: Alert. Oriented X3. Seems very anxious, intoxicated Eyes: Pupils equal, round and reactive to light. ENT: Pharynx normal. Neck: Normal inspection. Neck supple. No lymph nodes noted. No crepitus CVS: Normal heart rate and rhythm. Pulses normal. Normal S1 and S2 Respiratory: No respiratory distress. Breath sounds normal. No Wheezing. No rales Abdomen: Soft moderate pain to palpation in the left lower quadrant, No rigidity. No distention. Skin: Skin warm and dry. Normal skin color. Normal skin turgor. Extremities: No lower extremity edema. No lower extremity edema. No Lacerations. No Rash Neuro: Oriented X 3. No motor deficit. No sensory deficit. Moving all extermities. No slurred speech. Course Course Course Narrative: I was informed by the patient's nurse that the patient was extremely anxious, threatening to leave AMA, responding to the inner voices patient is hearing. 2 mg of Ativan IV were given to the patient. Afterwards, patient had several blood pressure readings between 80 and 90, unlikely to be due to sepsis, more likely secondary to medication. Patient was given 2 L of normal saline, systolic blood pressure between 90 and 100. At this time sepsis is not suspected. Lactic acid 1.3. CT scan shows diverticulitis. At this time, patient is very somnolent from the Ativan he received. Patient is being given the 1st dose of levofloxacin and metronidazole IV. Plan is to repeat the chemistry in couple of hours, elevated creatinine likely secondary to dehydration. Patient states that he will jump out of a bridge in with [place]. Patient is [place] [address] now. [facility] health network consult pending 05:45, blood pressure 108/53. Patient received 3 L of normal saline, patient is stable, sleeping, calm and cooperative Chemistry was repeated, patient's ANEESH resolved with fluids, now creatinine is 1.28. As mentioned above, patient's blood pressure is now stable, the drop in blood pressure likely due to Ativan, sepsis is not suspected. Patient received IV metronidazole and levofloxacin in the ED. At this time patient does not have abdominal pain. [facility] consult pending. Patient will need a course of oral antibiotics with levofloxacin and metronidazole. Sign-out given to Dr. Pike Medical Decision Making Lab Data Result diagrams: 10/20/20 01:05 10/20/20 05:24 Labs: Lab Results 10/20/20 10/20/20 10/20/20 Range/Units 01:05 01:05 01:05 WBC 17.6 H (4.8-10.8) X10*3/uL RBC 4.61 (4.60-5.80) X10*6/uL Hgb 13.8 L (14.0-18.0) g/dl Hct 42.1 (42-52) % MCV 91.3 (80-98) fL MCH 29.9 (27.0-33.0) pg MCHC 32.8 (31.0-36.0) g/dl RDW 13.2 (11.0-16.0) % Plt Count 337 (160-400) X10*3/uL MPV 9.4 (9.4-12.4) fL Immature Gran % (Auto) 0.5 H (0.0-0.4) % Neut % (Auto) 86.5 H (45-73) % Lymph % (Auto) 6.9 L (20-40) % [place] % (Auto) 5.6 (2-11) % Eos % (Auto) 0.2 (0-4) % Baso % (Auto) 0.3 (0-2) % Lymph # (Auto) 1.2 (1.2-4.9) X10*3/uL [place] # (Auto) 1.0 (0.1-1.2) X10*3/uL Eos # (Auto) 0.0 (0.0-0.4) X10*3/uL Baso # (Auto) 0.1 (0.0-0.2) X10*3/uL Abs Immat Gran (auto) 0.09 H (0.00-0.03) X10*3/uL Absolute Neuts (auto) 15.2 H (2.0-8.3) X10*3/uL Absolute Nucleated RBC 0.000 (0.0-0.012) X10*3/uL Nucleated RBC % (auto) 0.0 (0.0-0.2) /100WBC Sodium 138 (135-145) mmol/L Potassium 4.2 (3.3-5.1) mmol/L Chloride 97 (96-108) mmol/L Carbon Dioxide 22 (22-29) mmol/L Anion Gap 23 H (12-20) BUN 14 (9-16) mg/dL Creatinine 2.18 H (0.5-1.4) mg/dL Estim Creat Clear Calc 47.9 Estimated GFR 33 Random Glucose 161 H (60-115) mg/dL Lactic Acid (0.5-2.0) mmol/L Calcium 8.9 (8.4-10.2) mg/dL Total Bilirubin 1.2 H (0.0-1.0) mg/dL Direct Bilirubin 0.4 (0.0-0.5) mg/dL AST 70 H (5-37) U/L ALT 43 H (0-40) U/L Alkaline Phosphatase 76 D (39-117) U/L Total Protein 7.9 (6.5-8.0) g/dL Albumin 4.3 (3.5-5.0) g/dL Lipase 7 L (8-78) U/L Urine Color Urine Appearance Urine pH (5.0-8.0) Ur Specific [place] (1.005-1.025) Urine Protein (NEG-TRACE) MG/DL Urine Glucose (UA) (NEG) MG/DL Urine Ketones (NEG) MG/DL Urine Blood (NEG) Urine Nitrite (NEG) Ur Leukocyte Esterase (NEG) Urine Opiates Screen (Not Detect) Ur Barbiturates Screen (Not Detect) Ur Phencyclidine Scrn (Not Detect) Ur Amphetamines Screen (Not Detect) U Benzodiazepines Scrn (Not Detect) Urine Cocaine Screen (Not Detect) U Marijuana (THC) Screen (Not Detect) Ethyl Alcohol < 10 mg/dL COVID-19 (DELIO) (Negative) COVID-19 Clin Com 10/20/20 10/20/20 10/20/20 Range/Units 02:14 02:14 02:53 WBC (4.8-10.8) X10*3/uL RBC (4.60-5.80) X10*6/uL Hgb (14.0-18.0) g/dl Hct (42-52) % MCV (80-98) fL MCH (27.0-33.0) pg MCHC (31.0-36.0) g/dl RDW (11.0-16.0) % Plt Count (160-400) X10*3/uL MPV (9.4-12.4) fL Immature Gran % (Auto) (0.0-0.4) % Neut % (Auto) (45-73) % Lymph % (Auto) (20-40) % [place] % (Auto) (2-11) % Eos % (Auto) (0-4) % Baso % (Auto) (0-2) % Lymph # (Auto) (1.2-4.9) X10*3/uL [place] # (Auto) (0.1-1.2) X10*3/uL Eos # (Auto) (0.0-0.4) X10*3/uL Baso # (Auto) (0.0-0.2) X10*3/uL Abs Immat Gran (auto) (0.00-0.03) X10*3/uL Absolute Neuts (auto) (2.0-8.3) X10*3/uL Absolute Nucleated RBC (0.0-0.012) X10*3/uL Nucleated RBC % (auto) (0.0-0.2) /100WBC Sodium (135-145) mmol/L Potassium (3.3-5.1) mmol/L Chloride (96-108) mmol/L Carbon Dioxide (22-29) mmol/L Anion Gap (12-20) BUN (9-16) mg/dL Creatinine (0.5-1.4) mg/dL Estim Creat Clear Calc Estimated GFR Random Glucose (60-115) mg/dL Lactic Acid 1.3 (0.5-2.0) mmol/L Calcium (8.4-10.2) mg/dL Total Bilirubin (0.0-1.0) mg/dL Direct Bilirubin (0.0-0.5) mg/dL AST (5-37) U/L ALT (0-40) U/L Alkaline Phosphatase (39-117) U/L Total Protein (6.5-8.0) g/dL Albumin (3.5-5.0) g/dL Lipase (8-78) U/L Urine Color YELLOW Urine Appearance HAZY Urine pH 5.5 (5.0-8.0) Ur Specific [place] 1.015 (1.005-1.025) Urine Protein TRACE (NEG-TRACE) MG/DL Urine Glucose (UA) NEG (NEG) MG/DL Urine Ketones NEG (NEG) MG/DL Urine Blood NEG (NEG) Urine Nitrite NEG (NEG) Ur Leukocyte Esterase NEG (NEG) Urine Opiates Screen (Not Detect) Ur Barbiturates Screen (Not Detect) Ur Phencyclidine Scrn (Not Detect) Ur Amphetamines Screen (Not Detect) U Benzodiazepines Scrn (Not Detect) Urine Cocaine Screen (Not Detect) U Marijuana (THC) Screen (Not Detect) Ethyl Alcohol mg/dL COVID-19 (DELIO) Negative (Negative) COVID-19 Clin Com See Note 10/20/20 10/20/20 Range/Units 02:53 05:24 WBC (4.8-10.8) X10*3/uL RBC (4.60-5.80) X10*6/uL Hgb (14.0-18.0) g/dl Hct (42-52) % MCV (80-98) fL MCH (27.0-33.0) pg MCHC (31.0-36.0) g/dl RDW (11.0-16.0) % Plt Count (160-400) X10*3/uL MPV (9.4-12.4) fL Immature Gran % (Auto) (0.0-0.4) % Neut % (Auto) (45-73) % Lymph % (Auto) (20-40) % [place] % (Auto) (2-11) % Eos % (Auto) (0-4) % Baso % (Auto) (0-2) % Lymph # (Auto) (1.2-4.9) X10*3/uL [place] # (Auto) (0.1-1.2) X10*3/uL Eos # (Auto) (0.0-0.4) X10*3/uL Baso # (Auto) (0.0-0.2) X10*3/uL Abs Immat Gran (auto) (0.00-0.03) X10*3/uL Absolute Neuts (auto) (2.0-8.3) X10*3/uL Absolute Nucleated RBC (0.0-0.012) X10*3/uL Nucleated RBC % (auto) (0.0-0.2) /100WBC Sodium 136 (135-145) mmol/L Potassium 3.8 (3.3-5.1) mmol/L Chloride 105 (96-108) mmol/L Carbon Dioxide 23 (22-29) mmol/L Anion Gap 12 (12-20) BUN 13 (9-16) mg/dL Creatinine 1.28 (0.5-1.4) mg/dL Estim Creat Clear Calc 81.6 Estimated GFR > 60 Random Glucose 105 (60-115) mg/dL Lactic Acid (0.5-2.0) mmol/L Calcium 7.6 L D (8.4-10.2) mg/dL Total Bilirubin (0.0-1.0) mg/dL Direct Bilirubin (0.0-0.5) mg/dL AST (5-37) U/L ALT (0-40) U/L Alkaline Phosphatase (39-117) U/L Total Protein (6.5-8.0) g/dL Albumin (3.5-5.0) g/dL Lipase (8-78) U/L Urine Color Urine Appearance Urine pH (5.0-8.0) Ur Specific [place] (1.005-1.025) Urine Protein (NEG-TRACE) MG/DL Urine Glucose (UA) (NEG) MG/DL Urine Ketones (NEG) MG/DL Urine Blood (NEG) Urine Nitrite (NEG) Ur Leukocyte Esterase (NEG) Urine Opiates Screen POSITIVE H (Not Detect) Ur Barbiturates Screen Not Detected (Not Detect) Ur Phencyclidine Scrn Not Detected (Not Detect) Ur Amphetamines Screen Not Detected (Not Detect) U Benzodiazepines Scrn Not Detected (Not Detect) Urine Cocaine Screen POSITIVE H (Not Detect) U Marijuana (THC) Screen POSITIVE H (Not Detect) Ethyl Alcohol mg/dL COVID-19 (DELIO) (Negative) COVID-19 Clin Com Discharge Plan Discharge Clinical Impression: Diverticulitis, Suicidal ideation, Auditory hallucination Prescriptions: No Action buprenorphine-naloxone [Suboxone] 8-2 mg film 2 film sublingual DAILY 7 Days Qty: 14 RF: 0 lisinopril 20 mg Tablet 20 mg PO DAILY RF: 0 metformin 1,000 mg Tablet 1,000 mg PO BIDWM 30 Days Qty: 60 RF: 0 omeprazole 20 mg Capsule,Delayed Release(Dr/Ec) 20 mg PO DAILY RF: 0 insulin lispro [Humalog U-100 Insulin] 100 unit/mL solution 2 - 17 unit subcut TID RF: 0 bupropion HCl 300 mg tablet extended release 24 hr 1 tab PO QAM RF: 0 multivitamin [One Daily Multivitamin] Tablet 1 tab PO QAM RF: 0 sertraline 100 mg tablet 100 mg PO QAM RF: 0 tamsulosin 0.4 mg capsule 1 tab PO QAM RF: 0 trazodone 100 mg tablet 1 tab PO BEDTIME RF: 0 quetiapine 50 mg tablet 50 mg PO BID RF: 0 Lantus U-100 Insulin 100 unit/mL solution 70 unit subcut BEDTIME RF: 0 gabapentin 800 mg tablet 800 mg PO TID RF: 0 sulfamethoxazole-trimethoprim 800-160 mg Tablet 1 tab PO Q12H 7 Days Qty: 14 RF: 0
[2020-10-20 01:08] LABS: MANUAL DIFF FLAG NO
[2020-10-20 01:10] LABS: Basophils Absolute Auto 0.1 X10*3/uL (0.0-0.2); Basophils Percent Auto 0.3 % (0-2); Eosinophils Percent Auto 0.2 % (0-4); Hematocrit 42.1 % (42-52); Hemoglobin 13.8 g/dl (14.0-18.0); Imm Gran Abs Auto 0.09 X10*3/uL (0.00-0.03); Imm Gran Pct Auto 0.5 % (0.0-0.4); Lymphocytes Absolute Auto 1.2 X10*3/uL (1.2-4.9); Lymphocytes Percent Auto 6.9 % (20-40); Mean Corpuscular HGB Conc 32.8 g/dl (31.0-36.0); Mean Corpuscular Hemoglobin 29.9 pg (27.0-33.0); Mean Corpuscular Volume 91.3 fL (80-98); Mean Platelet Volume 9.4 fL (9.4-12.4); Monocytes Percent Auto 5.6 % (2-11); Neutrophils Absolute Auto 15.2 X10*3/uL (2.0-8.3); Neutrophils Percent Auto 86.5 % (45-73); Platelet Count 337 X10*3/uL (160-400); Red Blood Count 4.61 X10*6/uL (4.60-5.80); Red Cell Distribution Width 13.2 % (11.0-16.0); White Blood Count 17.6 X10*3/uL (4.8-10.8)
[2020-10-20 01:37] LABS: Ethanol < 10 mg/dL
[2020-10-20 01:43] LABS: Alanine Aminotransferase 43 U/L (0-40); Albumin Level 4.3 g/dL (3.5-5.0); Alkaline Phosphatase 76 U/L (39-117); Anion Gap 23 (12-20); Aspartate Amino Transferase 70 U/L (5-37); Bilirubin Direct 0.4 mg/dL (0.0-0.5); Bilirubin Total 1.2 mg/dL (0.0-1.0); Blood Urea Nitrogen 14 mg/dL (9-16); Calcium 8.9 mg/dL (8.4-10.2); Carbon Dioxide 22 mmol/L (22-29); Chloride 97 mmol/L (96-108); Creatinine Clr Calc Pharmacy 47.9; Estimated Glomerular Filt Rate 33; Glucose Random 161 mg/dL (60-115); Lipase 7 U/L (8-78); Potassium 4.2 mmol/L (3.3-5.1); Sodium 138 mmol/L (135-145); Total Protein 7.9 g/dL (6.5-8.0)
[2020-10-20] MEDS: LORazepam 2 MG/ML VIAL IVPUSH (02:02)
[2020-10-20] MEDS: 0.9 % Sodium Chloride 1,000 ML 999 ML IVCONT ×3 (02:02→03:13)
--- NOTE | 2020-10-20 02:07 | PC.NURSE ---
Addendum entered by Cameron Lemos RN 10/20/20 02:09: pt denies any visual hallucinations at this time Original Note: pt states he is hearing voices telling him that he is a piece of shit and telling him to kill himself. this nurse asked if he currently feels like hurting himself and pt stated that he doesn't want to be alive. MD notified.
[2020-10-20] MEDS: iohexoL 350 MG/ML 100 ML INFUS..BTL 85 ML IV (02:10)
[2020-10-20 02:37] LABS: COVID-19 Test Negative (Negative); Lactic Acid 1.3 mmol/L (0.5-2.0)
--- NOTE | 2020-10-20 02:39 | PC.NURSE ---
BP 83/39 MD notified second liter bag of NS started
[2020-10-20 02:59] LABS: Glucose Urine UA NEG (NEG); Leukocyte Esterase Urine NEG (NEG); Nitrite Urine NEG (NEG); PH 5.5 (5.0-8.0); Specific Gravity - Urine 1.015 (1.005-1.025); Urine Blood NEG (NEG); Urine Ketones NEG (NEG); Urine Protein TRACE MG/DL (NEG-TRACE)
[2020-10-20 03:00] LABS: Appearance Urine HAZY; Color Urine YELLOW
[2020-10-20] MEDS: levoFLOXacin/D5W 500 MG/100 ML PIGGYBACK 100 MG IV (03:20)
[2020-10-20 03:22] LABS: Amphetamine Screen Urine Not Detected (Not Detect); Barbiturates, Urine Not Detected (Not Detect); Benzodiazepines Screen Urine Not Detected (Not Detect); Cannabinoid Screen Urine POSITIVE (Not Detect); Cocaine Screen Urine POSITIVE (Not Detect); Opiate Screen Urine POSITIVE (Not Detect); Phencyclidine Screen Urine Not Detected (Not Detect)
[2020-10-20] MEDS: metroNIDAZOLE/NS 500 MG/100 ML PIGGYBACK 100 MG IV (04:20)
[2020-10-20 06:08] LABS: Anion Gap 12 (12-20); Blood Urea Nitrogen 13 mg/dL (9-16); Calcium 7.6 mg/dL (8.4-10.2); Carbon Dioxide 23 mmol/L (22-29); Chloride 105 mmol/L (96-108); Creatinine Clr Calc Pharmacy 81.6; Estimated Glomerular Filt Rate > 60; Glucose Random 105 mg/dL (60-115); Potassium 3.8 mmol/L (3.3-5.1); Sodium 136 mmol/L (135-145)
--- NOTE | 2020-10-20 06:18 | PC.NURSE ---
pt was incontinent of urine during sleep. this nurse and lead radiologic technologistyasmine Landry helped clean and change pt and bed linens.
--- NOTE | 2020-10-20 07:03 | PC.NURSE ---
Patient is asleep in bed without noted distress. 1:1 observation at doorway.
--- NOTE | 2020-10-20 09:04 | PC.NURSE ---
Patient remains in bed resting quietly in no distress. Respirations are even and nonlabored
--- NOTE | 2020-10-20 10:00 | PC.NURSE ---
Patient is resting quietly in bed with eyes closed in no distress. Pt remains under 1:1 observation
--- NOTE | 2020-10-20 12:29 | PC.NURSE ---
Patient awake and in no acute distress. Patient denies SI or HI. pt state he wants to go home.
--- NOTE | 2020-10-20 14:00 | PC.NURSE ---
Patient resting quietly in bed in no distress. Pt is calm and cooperative at this time.
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
== END 2020-10-20 16:31 | disposition home or self-care (01) ==
PROVIDERS: Emergency Provider Emergency Medicine
DX: R44.0 Auditory hallucinations (principal); R45.851 Suicidal ideations; K57.32 Diverticulitis of large intestine without perforation or abscess without bleeding; R10.9 Unspecified abdominal pain; F17.210 Nicotine dependence, cigarettes, uncomplicated; F10.10 Alcohol abuse, uncomplicated; Y90.0 Blood alcohol level of less than 20 mg/100 ml; Z79.899 Other long term (current) drug therapy; Z20.822 Contact with and (suspected) exposure to COVID-19; Z71.6 Tobacco abuse counseling; Z71.41 Alcohol abuse counseling and surveillance of alcoholic
CPT/HCPCS: 36415; 74177; 80048; 80076; 80307; 81003; 82077; 83605; 83690; 85025; 87040; 87635; 96365; 96366; 96375; 99285; J1956; J2060; Q9967

== ENCOUNTER 2020-11-05 03:25 | Inpatient (IN) | payer OTHER, SELFPAY ==
--- NOTE | 2020-11-05 06:47 | PC.NURSE ---
Patient arrived to ED during hospital-wide system downtime. See paper charting for triage and documentation.
--- NOTE | 2020-11-05 06:48 | PC.NURSE ---
Patient requesting Ativan. This RN spoke with regarding patient's request and offered Hydroxyzine instead. Pt refused adamantly stating no! that doesn't work for me! give me Ativan! . aware. Sitter remains present, will continue to monitor.
[2020-11-05 07:16] LABS: Glucose Urine UA NEG (NEG); Leukocyte Esterase Urine NEG (NEG); Nitrite Urine NEG (NEG); Specific Gravity - Urine >= 1.030 (1.005-1.025); Urine Blood NEG (NEG); Urine Ketones NEG (NEG); Urine Protein NEG (NEG-TRACE)
[2020-11-05 07:17] LABS: Appearance Urine CLEAR; Color Urine YELLOW
[2020-11-05 07:20] VITALS: BP 152/78; PULSE 75
[2020-11-05 07:20] LABS: Basophils Absolute Auto 0.1 X10*3/uL (0.0-0.2); Basophils Percent Auto 0.7 % (0-2); Eosinophils Absolute Auto 0.2 X10*3/uL (0.0-0.4); Eosinophils Percent Auto 1.7 % (0-4); Hemoglobin 14.3 g/dl (14.0-18.0); Imm Gran Abs Auto 0.03 X10*3/uL (0.00-0.03); Imm Gran Pct Auto 0.3 % (0.0-0.4); Lymphocytes Absolute Auto 2.6 X10*3/uL (1.2-4.9); Lymphocytes Percent Auto 25.3 % (20-40); MANUAL DIFF FLAG NO; Mean Corpuscular HGB Conc 33.3 g/dl (31.0-36.0); Mean Corpuscular Hemoglobin 29.9 pg (27.0-33.0); Monocytes Absolute Auto 0.9 X10*3/uL (0.1-1.2); Monocytes Percent Auto 8.3 % (2-11); Neutrophils Absolute Auto 6.5 X10*3/uL (2.0-8.3); Neutrophils Percent Auto 63.7 % (45-73); Platelet Count 335 X10*3/uL (160-400); Red Blood Count 4.78 X10*6/uL (4.60-5.80); Red Cell Distribution Width 13.2 % (11.0-16.0); White Blood Count 10.2 X10*3/uL (4.8-10.8)
--- NOTE | 2020-11-05 07:23 | PC.NURSE ---
pt resting in recliner, he is refusing breakfast at this time. pt reports thoughts of suicide, denies plan or intent to at at this time. Cache scale complete and pt on a 1:1 observation. he reports 10/10 headache and is requesting ativan. Pt awaiting N consult.
[2020-11-05 07:57] LABS: Ethanol 15 mg/dL
[2020-11-05 07:58] LABS: Alanine Aminotransferase 51 U/L (0-40); Albumin Level 4.4 g/dL (3.5-5.0); Alkaline Phosphatase 83 U/L (39-117); Anion Gap 16 (12-20); Aspartate Amino Transferase 75 U/L (5-37); Bilirubin Total 0.5 mg/dL (0.0-1.0); Blood Urea Nitrogen 15 mg/dL (9-16); Calcium 8.5 mg/dL (8.4-10.2); Carbon Dioxide 23 mmol/L (22-29); Chloride 100 mmol/L (96-108); Estimated Glomerular Filt Rate > 60; Glucose Random 97 mg/dL (60-115); Potassium 3.9 mmol/L (3.3-5.1); Sodium 135 mmol/L (135-145); Total Protein 7.7 g/dL (6.5-8.0)
[2020-11-05 08:03] LABS: Amphetamine Screen Urine NOT DETECTED (Not Detect); Barbiturates, Urine NOT DETECTED (Not Detect); Benzodiazepines Screen Urine NOT DETECTED (Not Detect); Cannabinoid Screen Urine POSITIVE (Not Detect); Cocaine Screen Urine POSITIVE (Not Detect); Opiate Screen Urine POSITIVE (Not Detect); Phencyclidine Screen Urine NOT DETECTED (Not Detect)
[2020-11-05] MEDS: Acetaminophen 325 MG TABLET 975 MG PO (09:14)
[2020-11-05 09:15] VITALS: BMI 50.8
[2020-11-05 09:25] LABS: Glucose, Whole Blood 105 mg/dL (60-115)
[2020-11-05] MEDS: LORazepam 0.5 MG TABLET 2 MG PO (09:40)
--- NOTE | 2020-11-05 15:12 | PHA.MEDREC ---
Pharmacy Consult ? Medication Reconciliation Pharmacy has completed the medication reconciliation.
[2020-11-05 16:26] VITALS: BP 119/75; PULSE 76; RESP 20; TEMP 36.7; O2SAT 99
[2020-11-05 19:40] LABS: COVID-19 Test Negative (Negative); IDNOW Serial# 9DD0AD1C
--- NOTE | 2020-11-06 06:04 | PC.NURSE ---
Patient slept through the night, calm and quiet, no behavior concerns, isolate in his room, appetite good, elimination intact, VSS, no distress observed/reported, disposition is section 12 inpatient bed search, will continue to monitor.
[2020-11-06 06:17] VITALS: BP 137/80; PULSE 73; RESP 18; TEMP 37.3; O2SAT 99
--- NOTE | 2020-11-06 09:03 | ECG_ITS ---
Test Reason : MEDICAL CLEARANCE Blood Pressure : / mmHG Vent. Rate : 070 BPM Atrial Rate : 070 BPM P-R Int : 162 ms QRS Dur : 132 ms QT Int : 444 ms P-R-T Axes : 034 008 047 degrees QTc Int : 479 ms Normal sinus rhythm Right bundle branch block Abnormal ECG When compared with ECG of 05-OCT-2020 13:53, T wave inversion less evident in Anterior leads Referred By: Vasquez Marin Electronically Signed By:DANIEL PA
--- NOTE | 2020-11-06 09:04 | ED_ITS ---
HPI - Psych General Chief Complaint: Psychiatric Symptoms Time Seen by Provider: 11/05/20 06:50 Related Data Home Medications Medication Instructions Recorded Confirmed omeprazole 20 mg capsule,delayed 20 mg PO DAILY 06/13/20 11/05/20 release lisinopril 20 mg tablet 20 mg PO DAILY 07/03/20 11/05/20 gabapentin 800 mg tablet 800 mg PO TID 10/02/20 11/05/20 insulin glargine 100 unit/mL 70 unit SUBCUT BEDTIME 10/02/20 11/05/20 subcutaneous solution (Lantus U-100 Insulin) insulin lispro 100 unit/mL 2 - 17 unit SUBCUT TID 10/02/20 11/05/20 subcutaneous solution (Humalog U-100 Insulin) multivitamin (One Daily 1 tab PO QAM 10/02/20 11/05/20 Multivitamin) quetiapine 50 mg tablet 50 mg PO BID 10/02/20 11/05/20 sertraline 100 mg tablet 100 mg PO QAM 10/02/20 11/05/20 tamsulosin 0.4 mg capsule 1 tab PO QAM 10/02/20 11/05/20 trazodone 100 mg tablet 1 tab PO BEDTIME 10/02/20 11/05/20 albuterol sulfate 90 mcg/actuation 2 puff INHALATION Q4H PRN 11/05/20 11/05/20 aerosol inhaler (ProAir HFA) bupropion HCl 150 mg tablet,12 hr 3 tab PO DAILY 11/05/20 11/05/20 sustained-release naloxone 4 mg/actuation nasal 1 spray INTRANASAL NEEDED PRN 11/05/20 11/05/20 spray (Narcan) nicotine 21 mg/24 hr daily 1 patch TOPICAL DAILY 11/05/20 11/05/20 transdermal patch Previous Rx's Medication Instructions Recorded metformin 1,000 mg tablet 1,000 mg PO BIDWM 30 Days #60 tab 07/09/20 sulfamethoxazole 800 1 tab PO Q12H 7 Days #14 tab 10/08/20 mg-trimethoprim 160 mg tablet buprenorphine 8 mg-naloxone 2 mg 2 film SUBLINGUAL DAILY 7 Days #14 10/17/20 sublingual film (Suboxone) ea Allergies Allergy/AdvReac Type Severity Reaction Status Date / Time buprenorphine [From Subutex] Allergy Angioedema Verified 06/24/20 18:27 [facility] Past Medical History Medical History Alcohol use Alcohol use disorder, severe, dependence Chronic pain Diverticulitis DM II (diabetes mellitus, type II), controlled High cholesterol (~10/11/20) HTN (hypertension) Marijuana use Neuropathy Opioid use disorder Opioid use disorder Stimulant use disorder Tobacco use disorder Urinary hesitancy Social History Social History Household Members: None Housing: Homeless Do you presently have visiting nurse or other home services: No Unable to assess alcohol history related to: Refusing to respond Alcohol intake: current Alcohol intake frequency: 0-2 drinks per day Alcohol type: beer and hard liquor Patient Tobacco Use Status: Current everyday Tobacco user Tobacco use type: Cigarette Cigarette Packs Per Day: 1.5 Cigarettes Per Day: 30.0 Years Smoked: 10 Second Hand Smoke Exposure: No Use of substances other than those prescribed or required for medical reasons: Yes Substance Use Type: Amphetamines, Crack/Cocaine, Heroin, IV Drugs, Marijuana and Opiates Advance Directives: No Advance Directives Information Provided: No service: No Sexual orientation: Straight/Heterosexual Physical Exam Vital Signs: Vital Signs: Last Vital Signs Temp 99.2 F 11/06/20 06:17 Pulse 73 11/06/20 06:17 Resp 18 11/06/20 06:17 BP 137/80 11/06/20 06:17 Pulse Ox 99 11/06/20 06:17 Body Mass Index 50.8 Course Course Course Narrative: Patient was initially seen by Dr. Hill but there is no note written. Physician observation continue. Patient vital signs are stable. Patient is not any distress. Patient is an M5 admission. MDM - Psych Lab Data Result diagrams: 11/05/20 04:42 11/05/20 04:42 Labs: Lab Results 11/05/20 11/05/20 11/05/20 Range/Units 04:42 04:42 04:42 WBC 10.2 (4.8-10.8) X10*3/uL RBC 4.78 (4.60-5.80) X10*6/uL Hgb 14.3 (14.0-18.0) g/dl Hct 43.0 (42-52) % MCV 90.0 (80-98) fL MCH 29.9 (27.0-33.0) pg MCHC 33.3 (31.0-36.0) g/dl RDW 13.2 (11.0-16.0) % Plt Count 335 (160-400) X10*3/uL MPV 10.0 (9.4-12.4) fL Immature Gran % (Auto) 0.3 (0.0-0.4) % Neut % (Auto) 63.7 (45-73) % Lymph % (Auto) 25.3 (20-40) % Barnes % (Auto) 8.3 (2-11) % Eos % (Auto) 1.7 (0-4) % Baso % (Auto) 0.7 (0-2) % Lymph # (Auto) 2.6 (1.2-4.9) X10*3/uL Barnes # (Auto) 0.9 (0.1-1.2) X10*3/uL Eos # (Auto) 0.2 (0.0-0.4) X10*3/uL Baso # (Auto) 0.1 (0.0-0.2) X10*3/uL Abs Immat Gran (auto) 0.03 (0.00-0.03) X10*3/uL Absolute Neuts (auto) 6.5 (2.0-8.3) X10*3/uL Absolute Nucleated RBC 0.000 (0.0-0.012) X10*3/uL Nucleated RBC % (auto) 0.0 (0.0-0.2) /100WBC Sodium 135 (135-145) mmol/L Potassium 3.9 (3.3-5.1) mmol/L Chloride 100 (96-108) mmol/L Carbon Dioxide 23 (22-29) mmol/L Anion Gap 16 (12-20) BUN 15 (9-16) mg/dL Creatinine 0.94 (0.5-1.4) mg/dL Estim Creat Clear Calc TNP Estimated GFR > 60 POC Glucose (60-115) mg/dL Random Glucose 97 (60-115) mg/dL Calcium 8.5 D (8.4-10.2) mg/dL Total Bilirubin 0.5 (0.0-1.0) mg/dL AST 75 H (5-37) U/L ALT 51 H (0-40) U/L Alkaline Phosphatase 83 (39-117) U/L Total Protein 7.7 (6.5-8.0) g/dL Albumin 4.4 (3.5-5.0) g/dL Urine Color YELLOW Urine Appearance CLEAR Urine pH 6.0 (5.0-8.0) Ur Specific Falkner >= 1.030 H (1.005-1.025) Urine Protein NEG (NEG-TRACE) MG/DL Urine Glucose (UA) NEG (NEG) MG/DL Urine Ketones NEG (NEG) MG/DL Urine Blood NEG (NEG) Urine Nitrite NEG (NEG) Ur Leukocyte Esterase NEG (NEG) Urine Opiates Screen (Not Detect) Ur Barbiturates Screen (Not Detect) Ur Phencyclidine Scrn (Not Detect) Ur Amphetamines Screen (Not Detect) U Benzodiazepines Scrn (Not Detect) Urine Cocaine Screen (Not Detect) U Marijuana (THC) Screen (Not Detect) Ethyl Alcohol mg/dL COVID-19 (DELIO) (Negative) COVID-19 Clin Com 11/05/20 11/05/20 11/05/20 Range/Units 04:42 04:42 04:51 WBC (4.8-10.8) X10*3/uL RBC (4.60-5.80) X10*6/uL Hgb (14.0-18.0) g/dl Hct (42-52) % MCV (80-98) fL MCH (27.0-33.0) pg MCHC (31.0-36.0) g/dl RDW (11.0-16.0) % Plt Count (160-400) X10*3/uL MPV (9.4-12.4) fL Immature Gran % (Auto) (0.0-0.4) % Neut % (Auto) (45-73) % Lymph % (Auto) (20-40) % Barnes % (Auto) (2-11) % Eos % (Auto) (0-4) % Baso % (Auto) (0-2) % Lymph # (Auto) (1.2-4.9) X10*3/uL Barnes # (Auto) (0.1-1.2) X10*3/uL Eos # (Auto) (0.0-0.4) X10*3/uL Baso # (Auto) (0.0-0.2) X10*3/uL Abs Immat Gran (auto) (0.00-0.03) X10*3/uL Absolute Neuts (auto) (2.0-8.3) X10*3/uL Absolute Nucleated RBC (0.0-0.012) X10*3/uL Nucleated RBC % (auto) (0.0-0.2) /100WBC Sodium (135-145) mmol/L Potassium (3.3-5.1) mmol/L Chloride (96-108) mmol/L Carbon Dioxide (22-29) mmol/L Anion Gap (12-20) BUN (9-16) mg/dL Creatinine (0.5-1.4) mg/dL Estim Creat Clear Calc Estimated GFR POC Glucose 105 (60-115) mg/dL Random Glucose (60-115) mg/dL Calcium (8.4-10.2) mg/dL Total Bilirubin (0.0-1.0) mg/dL AST (5-37) U/L ALT (0-40) U/L Alkaline Phosphatase (39-117) U/L Total Protein (6.5-8.0) g/dL Albumin (3.5-5.0) g/dL Urine Color Urine Appearance Urine pH (5.0-8.0) Ur Specific Falkner (1.005-1.025) Urine Protein (NEG-TRACE) MG/DL Urine Glucose (UA) (NEG) MG/DL Urine Ketones (NEG) MG/DL Urine Blood (NEG) Urine Nitrite (NEG) Ur Leukocyte Esterase (NEG) Urine Opiates Screen POSITIVE H (Not Detect) Ur Barbiturates Screen NOT DETECTED (Not Detect) Ur Phencyclidine Scrn NOT DETECTED (Not Detect) Ur Amphetamines Screen NOT DETECTED (Not Detect) U Benzodiazepines Scrn NOT DETECTED (Not Detect) Urine Cocaine Screen POSITIVE H (Not Detect) U Marijuana (THC) Screen POSITIVE H (Not Detect) Ethyl Alcohol 15 mg/dL COVID-19 (DELIO) (Negative) COVID-19 Clin Com 11/05/20 Range/Units 19:16 WBC (4.8-10.8) X10*3/uL RBC (4.60-5.80) X10*6/uL Hgb (14.0-18.0) g/dl Hct (42-52) % MCV (80-98) fL MCH (27.0-33.0) pg MCHC (31.0-36.0) g/dl RDW (11.0-16.0) % Plt Count (160-400) X10*3/uL MPV (9.4-12.4) fL Immature Gran % (Auto) (0.0-0.4) % Neut % (Auto) (45-73) % Lymph % (Auto) (20-40) % Barnes % (Auto) (2-11) % Eos % (Auto) (0-4) % Baso % (Auto) (0-2) % Lymph # (Auto) (1.2-4.9) X10*3/uL Barnes # (Auto) (0.1-1.2) X10*3/uL Eos # (Auto) (0.0-0.4) X10*3/uL Baso # (Auto) (0.0-0.2) X10*3/uL Abs Immat Gran (auto) (0.00-0.03) X10*3/uL Absolute Neuts (auto) (2.0-8.3) X10*3/uL Absolute Nucleated RBC (0.0-0.012) X10*3/uL Nucleated RBC % (auto) (0.0-0.2) /100WBC Sodium (135-145) mmol/L Potassium (3.3-5.1) mmol/L Chloride (96-108) mmol/L Carbon Dioxide (22-29) mmol/L Anion Gap (12-20) BUN (9-16) mg/dL Creatinine (0.5-1.4) mg/dL Estim Creat Clear Calc Estimated GFR POC Glucose (60-115) mg/dL Random Glucose (60-115) mg/dL Calcium (8.4-10.2) mg/dL Total Bilirubin (0.0-1.0) mg/dL AST (5-37) U/L ALT (0-40) U/L Alkaline Phosphatase (39-117) U/L Total Protein (6.5-8.0) g/dL Albumin (3.5-5.0) g/dL Urine Color Urine Appearance Urine pH (5.0-8.0) Ur Specific Falkner (1.005-1.025) Urine Protein (NEG-TRACE) MG/DL Urine Glucose (UA) (NEG) MG/DL Urine Ketones (NEG) MG/DL Urine Blood (NEG) Urine Nitrite (NEG) Ur Leukocyte Esterase (NEG) Urine Opiates Screen (Not Detect) Ur Barbiturates Screen (Not Detect) Ur Phencyclidine Scrn (Not Detect) Ur Amphetamines Screen (Not Detect) U Benzodiazepines Scrn (Not Detect) Urine Cocaine Screen (Not Detect) U Marijuana (THC) Screen (Not Detect) Ethyl Alcohol mg/dL COVID-19 (DELIO) Negative (Negative) COVID-19 Clin Com See Note Discharge Plan Discharge Prescriptions: No Action buprenorphine-naloxone [Suboxone] 8-2 mg film 2 film sublingual DAILY 7 Days Qty: 14 RF: 0 lisinopril 20 mg Tablet 20 mg PO DAILY RF: 0 metformin 1,000 mg Tablet 1,000 mg PO BIDWM 30 Days Qty: 60 RF: 0 omeprazole 20 mg Capsule,Delayed Release(Dr/Ec) 20 mg PO DAILY RF: 0 insulin lispro [Humalog U-100 Insulin] 100 unit/mL solution 2 - 17 unit subcut TID RF: 0 multivitamin [One Daily Multivitamin] Tablet 1 tab PO QAM RF: 0 sertraline 100 mg tablet 100 mg PO QAM RF: 0 tamsulosin 0.4 mg capsule 1 tab PO QAM RF: 0 trazodone 100 mg tablet 1 tab PO BEDTIME RF: 0 quetiapine 50 mg tablet 50 mg PO BID RF: 0 Lantus U-100 Insulin 100 unit/mL solution 70 unit subcut BEDTIME RF: 0 gabapentin 800 mg tablet 800 mg PO TID RF: 0 sulfamethoxazole-trimethoprim 800-160 mg Tablet 1 tab PO Q12H 7 Days Qty: 14 RF: 0 bupropion HCl 150 mg tablet sustained-release 12 hr 3 tab PO DAILY RF: 0 nicotine 21 mg/24 hr patch 24 hour 1 patch topical DAILY RF: 0 albuterol sulfate [ProAir HFA] 90 mcg/actuation HFA aerosol inhaler 2 puff inhalation Q4H PRN (Reason: wheezing) RF: 0 Narcan 4 mg/actuation spray,non-aerosol 1 spray intranasal NEEDED PRN (Reason: Opioid Overdose) RF: 0
[2020-11-06 09:06] VITALS: BP 136/88; PULSE 71; RESP 17; TEMP 36.3; O2SAT 96
[2020-11-06] MEDS: LORazepam 0.5 MG TABLET 2 MG PO (10:21)
[2020-11-06 13:46] LABS: Glucose, Whole Blood 174 mg/dL (60-115)
[2020-11-06 15:45] VITALS: BP 152/98; PULSE 90; RESP 13; TEMP 36.9; O2SAT 99
[2020-11-06] MEDS: hydrOXYzine HCL 25 MG TABLET PO (16:08)
[2020-11-06] MEDS: LORazepam 1 MG TABLET 2 MG PO (17:30)
[2020-11-06] MEDS: metFORMIN HCl 1,000 MG TABLET 1000 MG PO (17:30)
[2020-11-06] MEDS: Multivitamin TABLET 1 TAB PO (17:30)
[2020-11-06 18:24] VITALS: BP 153/78; PULSE 95; RESP 18; TEMP 36.4; O2SAT 97
--- NOTE | 2020-11-06 18:59 | PC.ADMIT ---
Pt is a 45 year old male who came [place] [facility] due to SI with a plan to jump off a bridge and kill himself. Currently homeless and increased anxiety. Reports having AVH with the voices telling him to harm himself per patient. Did not elaborate on VH. Previous admissions on M5 in the past. Tox screen positive for opiates, cocaine and marijuana. Reports that he is having withdrawal symptoms that include stomach cramping, sweaty palms, and diarrhea. Cocaine I have about 3-4 grams daily and Heroin I just take an 8 ball. Also reports drinking 5-6 bottles of beer and/or 1 pint of liquor daily. Pain is 10/10 for abdominal pain . Denies SI/HI currently. Minimal interaction during 1:1. Medical Hx: Diabetes, high cholesterol, HBP, Hep-C, Neuropathy. CV signed. Place on 15 minute checks. Medication verified in the ED.
[2020-11-06 19:57] LABS: Glucose, Whole Blood 111 mg/dL (60-115)
[2020-11-06] MEDS: traZODone HCL 100 MG TABLET PO (20:26)
[2020-11-06] MEDS: Gabapentin 400 MG CAPSULE 800 MG PO (20:26)
[2020-11-06] MEDS: QUEtiapine Fumarate 50 MG TABLET PO (20:26)
[2020-11-06] MEDS: LORazepam 1 MG TABLET PO (20:26)
[2020-11-07 06:06] LABS: Glucose, Whole Blood 132 mg/dL (60-115)
[2020-11-07 06:30] VITALS: BP 155/91; PULSE 79; RESP 18; TEMP 36.6; O2SAT 97
[2020-11-07] MEDS: LORazepam 1 MG TABLET PO ×3 (08:29→14:39)
[2020-11-07] MEDS: metFORMIN HCl 1,000 MG TABLET 1000 MG PO ×2 (08:29→16:43)
[2020-11-07 08:30] VITALS: BP 130/86; PULSE 78
[2020-11-07] MEDS: Sertraline HCL 100 MG TABLET PO (08:30)
[2020-11-07] MEDS: Tamsulosin HCL 0.4 MG CAPSULE PO (08:30)
[2020-11-07] MEDS: Gabapentin 400 MG CAPSULE 800 MG PO ×3 (08:30→20:32)
[2020-11-07] MEDS: QUEtiapine Fumarate 50 MG TABLET PO ×2 (08:30→20:34)
[2020-11-07] MEDS: Omeprazole 20 MG CAPSULE.DR PO (08:30)
[2020-11-07] MEDS: Multivitamin TABLET 1 TAB PO (08:30)
[2020-11-07 12:14] LABS: Glucose, Whole Blood 105 mg/dL (60-115)
[2020-11-07] MEDS: Nicotine 21 MG PATCH.TD24 TRANSDERMA (13:20)
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
[2020-11-07] MEDS: Buprenorphine/Naloxone 2/0.5mg FILM 1 FILM SUBLINGUAL ×3 (14:37→20:32)
[2020-11-07 16:15] VITALS: BP 132/86; PULSE 109; TEMP 36.6
[2020-11-07] MEDS: Buprenorphine/Naloxone 4/1 mg FILM 1 FILM SUBLINGUAL (16:43)
[2020-11-07 16:44] LABS: Glucose, Whole Blood 121 mg/dL (60-115)
[2020-11-07 20:32] LABS: Glucose, Whole Blood 128 mg/dL (60-115)
[2020-11-07] MEDS: traZODone HCL 100 MG TABLET PO (20:34)
[2020-11-07] MEDS: Insulin Glargine,Hum.rec.anlog 100 UNIT/ML 10 ML VIAL 70 UNIT SUBCUT (20:42)
[2020-11-08] MEDS: LORazepam 1 MG TABLET PO ×4 (03:39→21:27)
[2020-11-08] MEDS: hydrOXYzine HCL 25 MG TABLET PO (03:39)
[2020-11-08 06:00] VITALS: BP 135/81; PULSE 93; RESP 18; TEMP 35.7; O2SAT 99
[2020-11-08 06:18] LABS: Glucose, Whole Blood 96 mg/dL (60-115)
[2020-11-08] MEDS: buPROPion HCl XL 300 MG TAB.ER.24H PO (09:19)
[2020-11-08] MEDS: Nicotine 21 MG PATCH.TD24 TRANSDERMA (09:19)
[2020-11-08] MEDS: Sertraline HCL 100 MG TABLET PO (09:19)
[2020-11-08] MEDS: Omeprazole 20 MG CAPSULE.DR PO (09:19)
[2020-11-08] MEDS: Multivitamin TABLET 1 TAB PO (09:19)
[2020-11-08] MEDS: Buprenorphine/Naloxone 12/3 mg FILM 1 FILM SUBLINGUAL (09:19)
[2020-11-08] MEDS: Gabapentin 400 MG CAPSULE 800 MG PO ×3 (09:19→21:27)
[2020-11-08 09:20] VITALS: BP 143/98; PULSE 90
[2020-11-08] MEDS: QUEtiapine Fumarate 50 MG TABLET PO ×2 (09:20→21:27)
[2020-11-08] MEDS: metFORMIN HCl 1,000 MG TABLET 1000 MG PO ×2 (09:20→16:49)
[2020-11-08] MEDS: Tamsulosin HCL 0.4 MG CAPSULE PO (09:20)
--- NOTE | 2020-11-08 15:59 | P.PNPSI_ITS ---
Subjective Subjective Date of Service: 11/08/20 Reason For Visit: SI Subjective Notes: Conditional Voluntary Medication Compliance: Yes Side effects from medications: No Attending Groups: No Review of Systems Acute medical concerns: No Medical Review of Systems: unchanged Review of Systems Review of Systems Patient endorses active opioid withdrawal symptoms including generalized body aches, abdominal cramping, GI upset, loose stools. Also reports ?shaking hands ?. Yes all other systems are reviewed and are negative Constitutional: Reports as per HPI Eyes: Reports no additional eye complaints Cardiovascular: Reports as per HPI Respiratory: Reports as per HPI Gastrointestinal: Reports GI cramping, Reports dyspepsia and Reports loose stools Genitourinary: Reports as per HPI Musculoskeletal: Reports myalgias Reports as per HPI Psychiatric: Reports as per HPI Endocrine: Reports no additional endocrine complaints Mental Status Exam Mental Status Exam Narrative: Pt is alert and oriented; behavior is superficially cooperative; patient is restless, in active withdrawal; dressed in casual attire, facial hair, adequate hygiene; mood is described as depressed and affect congruent, sullen; poor eye contact; Speech is normal rate, volume and prosody and not pressured; no psychomotor agitation/retardation present; thought process is organized and goal directed. Thought content is on ambivalence of getting treatment vs continuing to use; otherwise pertinent to relevant topics and without any delusional content, paranoid ideations or grandiosity; denies any SI/HI. There is no evidence of perceptual disturbance. ?Patients insight and judgment appear impaired. Patient Appearance: Fatigued Patient Orientation: Person, Place, Time and Situation Level of Consciousness: Drowsy Patient Behavior: Appropriate, Guarded and Cooperative Mood Description: Depressed Affect Description: Depressed and Blunted Patient Cognition Impaired: No Ability to Follow Directions: Excellent Speech Pattern: Clear Memory Description: Intact Thought Content: negative for Suicidal Ideation or negative for Homicidal Ideation Judgement: Fair Diagnostics Vital Signs (24Hr): Vital Signs - 24 hr 11/07/20 16:15 11/08/20 06:00 11/08/20 09:20 Temperature 97.9 F 96.2 F L Pulse Rate 109 H 93 90 Respiratory Rate 18 Blood Pressure 132/86 135/81 143/98 H Pulse Oximetry 99 Body Mass Index 50.8 Labs Results: 11/05/20 04:42 11/05/20 04:42 Labs: Laboratory Results - last 48 hr 0711/07/20 11/07/20 19:52 05:57 12:10 POC Glucose 111 132 H 105 11/07/20 11/07/20 11/08/20 16:36 20:29 06:14 POC Glucose 121 H 128 H 96 Medications Medications Current Medications Generic Name Dose Route Start Last Admin Trade Name Freq PRN Reason Stop Dose Admin Acetaminophen 650 mg 11/06/20 15:25 Acetaminophen 325 Mg Tablet PO Q6H PRN Headache/Pain Mild Scale (1-3) Al Hydroxide/Mg Hydroxide 30 ml 11/06/20 15:25 Magnesium Hydrox/Alum Hydrox 30 Ml Oral.Susp PO Q6H PRN Heartburn/Nausea Albuterol Sulfate 2 puff 11/06/20 16:26 Albuterol Sulfate 90 Mcg 8 Gm Inhaler INHALE Q4H PRN wheezing Baclofen 10 mg 11/06/20 16:54 Baclofen 10 Mg Tablet PO BID PRN muscle cramps Buprenorphine/Naloxone 1 film 11/08/20 09:00 11/08/20 09:19 Buprenorphine/Naloxone 12/3 Mg Film SUBLINGUAL 11/09/20 23:59 1 film DAILY [facility] Administration Buprenorphine/Naloxone 2 tab 11/10/20 08:00 Buprenorphine/Naloxone 8/2 Mg Tab.Subl SUBLINGUAL DAILY [facility] Bupropion HCl 300 mg 11/08/20 09:00 11/08/20 09:19 Bupropion Hcl Xl 300 Mg Tab.Er.24h PO 300 mg DAILY [facility] Administration Gabapentin 800 mg 11/06/20 21:00 11/08/20 09:19 Gabapentin 400 Mg Capsule PO 800 mg TID [facility] Administration Hydroxyzine HCl 25 mg 11/06/20 15:25 11/08/20 03:39 Hydroxyzine Hcl 25 Mg Tablet PO 25 mg Q6H PRN Administration Anxiety Insulin Glargine 70 unit 11/06/20 21:00 11/07/20 20:42 Insulin Glargine,Hum.Rec.Anlog 100 Unit/Ml 10 Ml Vial SUBCUT 70 unit BEDTIME [facility] Administration Insulin Human Lispro 0 unit 11/07/20 15:00 11/08/20 09:20 Insulin Lispro 100 Unit/Ml 3 Ml Vial SUBCUT Not Given TID [facility] Protocol Lisinopril 20 mg 11/07/20 09:00 11/08/20 09:20 Lisinopril 20 Mg Tablet PO 20 mg DAILY [facility] Administration Protocol Loperamide HCl 2 mg 11/06/20 16:55 Loperamide Hcl 2 Mg Capsule PO Q4H PRN Loose Stool Lorazepam 1 mg 11/06/20 21:00 11/08/20 09:20 Lorazepam 1 Mg Tablet PO 11/08/20 23:59 1 mg TID [facility] Administration Lorazepam 1 mg 11/06/20 16:46 11/08/20 03:39 Lorazepam 1 Mg Tablet PO 1 mg Q2H PRN Administration mild-moderate alcohol w/drawal Lorazepam 2 mg 11/06/20 16:51 Lorazepam 1 Mg Tablet PO Q2H PRN mod to severe alcohol w/drawal Lorazepam 1 mg 11/09/20 09:00 Lorazepam 1 Mg Tablet PO 11/10/20 23:59 BID [facility] Lorazepam 1 mg 11/11/20 09:00 Lorazepam 1 Mg Tablet PO 11/12/20 23:59 DAILY [facility] Magnesium Hydroxide 30 ml 11/06/20 15:25 Milk Of Magnesia 30 Ml Oral.Susp PO DAILY PRN Constipation Metformin HCl 1,000 mg 11/06/20 17:00 11/08/20 09:20 Metformin Hcl 1,000 Mg Tablet PO 1,000 mg BIDWM [facility] Administration Multivitamins/Vitamin C 1 tab 11/06/20 16:26 11/08/20 09:19 Multivitamin Tablet PO 1 tab DAILY [facility] Administration Nicotine 21 mg 11/07/20 09:00 11/08/20 09:19 Nicotine 21 Mg Patch.Td24 TRANSDERMA 21 mg DAILY [facility] Administration Omeprazole 20 mg 11/07/20 09:00 11/08/20 09:19 Omeprazole 20 Mg Capsule. PO 20 mg DAILY [facility] Administration Pharmacy Consult 1 each 11/05/20 08:29 Consult Rx Perform Med Rec MISCELLANE ONCE PRN Consult order Quetiapine Fumarate 50 mg 11/06/20 21:00 11/08/20 09:20 Quetiapine Fumarate 50 Mg Tablet PO 50 mg BID [facility] Administration Sertraline HCl 100 mg 11/07/20 09:00 11/08/20 09:19 Sertraline Hcl 100 Mg Tablet PO 100 mg DAILY [facility] Administration Tamsulosin HCl 0.4 mg 11/07/20 09:00 11/08/20 09:20 Tamsulosin Hcl 0.4 Mg Capsule PO 0.4 mg DAILY [facility] Administration Trazodone HCl 50 mg 11/06/20 15:25 Trazodone Hcl 50 Mg Tablet PO BEDTIME PRN Insomnia Trazodone HCl 100 mg 11/06/20 21:00 11/07/20 20:34 Trazodone Hcl 100 Mg Tablet PO 100 mg BEDTIME [facility] Administration Allergies Allergies Allergy/AdvReac Type Severity Reaction Status Date / Time No Known Allergies Allergy Unverified 11/07/20 16:28 Assessment & Plan Assessment & Plan (1) MDD (major depressive disorder), recurrent episode, severe: Status: Acute Code(s): F33.2 - Major depressive disorder, recurrent severe without psychotic features (2) Opiate dependence: Status: Acute Code(s): F11.20 - Opioid dependence, uncomplicated (3) Cocaine use: Status: Acute Code(s): F14.90 - Cocaine use, unspecified, uncomplicated Assessment and Plan: IMPRESSION: Patient is a 45-year-old male with long history of substance abuse, depression, SI who presents about 1 month after discharge from [facility] with depression and SI in the face of polysubstance abuse. Patient is currently not any talking mood is he is in active withdrawal from both opiates and alcohol. Patient was willing to discuss a few things but wanted to conclude interview to start Suboxone for withdrawal symptoms. Patient is currently ambivalent about getting treatment, feeling some hopelessness about getting better. Active suicidal ideation has cleared. Will admit for safety, medication management of depression and detox PLAN: CV signed Q 15 minutes checks Continue home medications Will restart Wellbutrin Tuesday at 300 mg and then titrate from there Ativan scheduled with taper with Ativan p.r.n. available for alcohol withdrawal symptoms Patient started on Suboxone which is being titrated to previous home dose Will engage patient in treatment discussion once withdrawal symptoms have subsided and he is more engageable No change to the above plan Greater than 50% of the session was spent on counseling and/or coordination of care Patient educated on: diagnosis, medication risk/benefits and substance abuse Informed Consent: further education needed Reason for contiued inpatient stay Substantial Risk for: rapid decompensation
[2020-11-08 18:00] VITALS: BP 140/84; PULSE 80; RESP 16; TEMP 36.1
[2020-11-08 19:17] LABS: Glucose, Whole Blood 127 mg/dL (60-115)
[2020-11-08] MEDS: Insulin Glargine,Hum.rec.anlog 100 UNIT/ML 10 ML VIAL 70 UNIT SUBCUT (21:25)
[2020-11-08] MEDS: traZODone HCL 100 MG TABLET PO (21:27)
[2020-11-08] MEDS: Acetaminophen 325 MG TABLET 650 MG PO (21:33)
[2020-11-09 06:00] VITALS: BP 104/57; PULSE 75; RESP 16; TEMP 36.3; O2SAT 97
[2020-11-09 06:20] LABS: Glucose, Whole Blood 124 mg/dL (60-115)
[2020-11-09] MEDS: Nicotine 21 MG PATCH.TD24 TRANSDERMA (08:42)
[2020-11-09] MEDS: metFORMIN HCl 1,000 MG TABLET 1000 MG PO ×2 (08:43→18:42)
[2020-11-09] MEDS: QUEtiapine Fumarate 50 MG TABLET PO ×2 (08:43→20:46)
[2020-11-09] MEDS: Tamsulosin HCL 0.4 MG CAPSULE PO (08:43)
[2020-11-09] MEDS: Omeprazole 20 MG CAPSULE.DR PO (08:43)
[2020-11-09] MEDS: Gabapentin 400 MG CAPSULE 800 MG PO ×3 (08:43→20:46)
[2020-11-09] MEDS: Multivitamin TABLET 1 TAB PO (08:43)
[2020-11-09] MEDS: buPROPion HCl XL 300 MG TAB.ER.24H PO (08:43)
[2020-11-09] MEDS: LORazepam 1 MG TABLET PO ×2 (08:44→20:47)
[2020-11-09] MEDS: Sertraline HCL 100 MG TABLET PO (08:44)
[2020-11-09] MEDS: Buprenorphine/Naloxone 12/3 mg FILM 1 FILM SUBLINGUAL (10:10)
--- NOTE | 2020-11-09 17:20 | P.PNPSI_ITS ---
Subjective Subjective Date of Service: 11/09/20 Reason For Visit: SI Subjective Notes: Conditional Voluntary Interim History: Individual was initially angry about his medication but ultimately settled down and had no further concerns Medication Compliance: Yes Side effects from medications: No Attending Groups: No Review of Systems Acute medical concerns: No Medical Review of Systems: unchanged Review of Systems Review of Systems Patient endorses active opioid withdrawal symptoms including generalized body aches, abdominal cramping, GI upset, loose stools. Also reports ?shaking hands ?. Yes all other systems are reviewed and are negative Constitutional: Reports as per HPI Eyes: Reports no additional eye complaints Cardiovascular: Reports as per HPI Respiratory: Reports as per HPI Gastrointestinal: Reports GI cramping, Reports dyspepsia and Reports loose stools Genitourinary: Reports as per HPI Musculoskeletal: Reports myalgias Reports as per HPI Psychiatric: Reports as per HPI Endocrine: Reports no additional endocrine complaints Mental Status Exam Mental Status Exam Narrative: Pt is alert and oriented; behavior is superficially cooperative; patient is restless, in active withdrawal; dressed in casual attire, facial hair, adequate hygiene; mood is described as depressed and affect congruent, sullen; poor eye contact; Speech is normal rate, volume and prosody and not pressured; no psychomotor agitation/retardation present; thought process is organized and goal directed. Thought content is on ambivalence of getting treatment vs continuing to use; otherwise pertinent to relevant topics and without any delusional content, paranoid ideations or grandiosity; denies any SI/HI. There is no evidence of perceptual disturbance. ?Patients insight and judgment appear impaired. Patient Appearance: Fatigued Patient Orientation: Person, Place, Time and Situation Level of Consciousness: Drowsy Patient Behavior: Appropriate, Guarded and Cooperative Mood Description: Depressed Affect Description: Depressed and Blunted Patient Cognition Impaired: No Ability to Follow Directions: Excellent Speech Pattern: Clear Memory Description: Intact Diagnostics Vital Signs (24Hr): Vital Signs - 24 hr 11/08/20 18:00 11/09/20 06:00 Temperature 97 F 97.3 F Pulse Rate 80 75 Respiratory Rate 16 16 Blood Pressure 140/84 H 104/57 L Pulse Oximetry 97 Body Mass Index 50.8 Labs Results: 11/05/20 04:42 11/05/20 04:42 Labs: Laboratory Results - last 48 hr 11/07/20 11/08/20 11/08/20 20:29 06:14 19:13 POC Glucose 128 H 96 127 H 11/09/20 06:15 POC Glucose 124 H Medications Medications Current Medications Generic Name Dose Route Start Last Admin Trade Name Wan PRN Reason Stop Dose Admin Acetaminophen 650 mg 11/06/20 15:25 11/08/20 21:33 Acetaminophen 325 Mg Tablet PO 650 mg Q6H PRN Administration Headache/Pain Mild Scale (1-3) Al Hydroxide/Mg Hydroxide 30 ml 11/06/20 15:25 Magnesium Hydrox/Alum Hydrox 30 Ml Oral.Susp PO Q6H PRN Heartburn/Nausea Albuterol Sulfate 2 puff 11/06/20 16:26 Albuterol Sulfate 90 Mcg 8 Gm Inhaler INHALE Q4H PRN wheezing Baclofen 10 mg 11/06/20 16:54 Baclofen 10 Mg Tablet PO BID PRN muscle cramps Buprenorphine/Naloxone 1 film 11/08/20 09:00 11/09/20 10:10 Buprenorphine/Naloxone 12/3 Mg Film SUBLINGUAL 11/09/20 23:59 1 film DAILY SHABBIR Administration Buprenorphine/Naloxone 2 tab 11/10/20 08:00 Buprenorphine/Naloxone 8/2 Mg Tab.Subl SUBLINGUAL DAILY SHABBIR Bupropion HCl 300 mg 11/08/20 09:00 11/09/20 08:43 Bupropion Hcl Xl 300 Mg Tab.Er.24h PO 300 mg DAILY SHABBIR Administration Gabapentin 800 mg 11/06/20 21:00 11/09/20 14:38 Gabapentin 400 Mg Capsule PO 800 mg TID SHABBIR Administration Hydroxyzine HCl 25 mg 11/06/20 15:25 11/08/20 03:39 Hydroxyzine Hcl 25 Mg Tablet PO 25 mg Q6H PRN Administration Anxiety Insulin Glargine 70 unit 11/06/20 21:00 11/08/20 21:25 Insulin Glargine,Hum.Rec.Anlog 100 Unit/Ml 10 Ml Vial SUBCUT 70 unit BEDTIME SHABBIR Administration Insulin Human Lispro 0 unit 11/07/20 15:00 11/09/20 14:24 Insulin Lispro 100 Unit/Ml 3 Ml Vial SUBCUT Not Given TID SHABBIR Protocol Lisinopril 20 mg 11/07/20 09:00 11/09/20 08:43 Lisinopril 20 Mg Tablet PO 20 mg DAILY SHABBIR Administration Protocol Loperamide HCl 2 mg 11/06/20 16:55 Loperamide Hcl 2 Mg Capsule PO Q4H PRN Loose Stool Lorazepam 1 mg 11/06/20 16:46 11/08/20 03:39 Lorazepam 1 Mg Tablet PO 1 mg Q2H PRN Administration mild-moderate alcohol w/drawal Lorazepam 2 mg 11/06/20 16:51 Lorazepam 1 Mg Tablet PO Q2H PRN mod to severe alcohol w/drawal Lorazepam 1 mg 11/09/20 09:00 11/09/20 08:44 Lorazepam 1 Mg Tablet PO 11/10/20 23:59 1 mg BID SHABBIR Administration Lorazepam 1 mg 11/11/20 09:00 Lorazepam 1 Mg Tablet PO 11/12/20 23:59 DAILY SHABBIR Magnesium Hydroxide 30 ml 11/06/20 15:25 Milk Of Magnesia 30 Ml Oral.Susp PO DAILY PRN Constipation Metformin HCl 1,000 mg 11/06/20 17:00 11/09/20 08:43 Metformin Hcl 1,000 Mg Tablet PO 1,000 mg BIDWM SHABBIR Administration Multivitamins/Vitamin C 1 tab 11/06/20 16:26 11/09/20 08:43 Multivitamin Tablet PO 1 tab DAILY SHABBIR Administration Nicotine 21 mg 11/07/20 09:00 11/09/20 08:42 Nicotine 21 Mg Patch.Td24 TRANSDERMA 21 mg DAILY SHABBIR Administration Omeprazole 20 mg 11/07/20 09:00 11/09/20 08:43 Omeprazole 20 Mg Capsule. PO 20 mg DAILY SHABBIR Administration Pharmacy Consult 1 each 11/05/20 08:29 Consult Rx Perform Med Rec MISCELLANE ONCE PRN Consult order Quetiapine Fumarate 50 mg 11/06/20 21:00 11/09/20 08:43 Quetiapine Fumarate 50 Mg Tablet PO 50 mg BID SHABBIR Administration Sertraline HCl 100 mg 11/07/20 09:00 11/09/20 08:44 Sertraline Hcl 100 Mg Tablet PO 100 mg DAILY SHABBIR Administration Tamsulosin HCl 0.4 mg 11/07/20 09:00 11/09/20 08:43 Tamsulosin Hcl 0.4 Mg Capsule PO 0.4 mg DAILY SHABBIR Administration Trazodone HCl 50 mg 11/06/20 15:25 Trazodone Hcl 50 Mg Tablet PO BEDTIME PRN Insomnia Trazodone HCl 100 mg 11/06/20 21:00 11/08/20 21:27 Trazodone Hcl 100 Mg Tablet PO 100 mg BEDTIME SHABBIR Administration Allergies Allergies Allergy/AdvReac Type Severity Reaction Status Date / Time No Known Allergies Allergy Unverified 11/07/20 16:28 Assessment & Plan Assessment & Plan (1) MDD (major depressive disorder), recurrent episode, severe: Status: Acute Code(s): F33.2 - Major depressive disorder, recurrent severe without psychotic features (2) Opiate dependence: Status: Acute Code(s): F11.20 - Opioid dependence, uncomplicated (3) Cocaine use: Status: Acute Code(s): F14.90 - Cocaine use, unspecified, uncomplicated Assessment and Plan: IMPRESSION: Patient is a 45-year-old male with long history of substance abuse, depression, SI who presents about 1 month after discharge from [facility] with depression and SI in the face of polysubstance abuse. Patient is currently not any talking mood is he is in active withdrawal from both opiates and alcohol. Patient was willing to discuss a few things but wanted to conclude interview to start Suboxone for withdrawal symptoms. Patient is currently ambivalent about getting treatment, feeling some hopelessness about getting better. Active suicidal ideation has cleared. Will admit for safety, medication management of depression and detox PLAN: CV signed Q 15 minutes checks Continue home medications Will restart Wellbutrin Tuesday at 300 mg and then titrate from there Ativan scheduled with taper with Ativan p.r.n. available for alcohol withdrawal symptoms Patient started on Suboxone which is being titrated to previous home dose Will engage patient in treatment discussion once withdrawal symptoms have subsided and he is more engageable No change to the above plan Greater than 50% of the session was spent on counseling and/or coordination of care Patient educated on: diagnosis, medication risk/benefits and substance abuse Informed Consent: further education needed Reason for contiued inpatient stay Substantial Risk for: rapid decompensation
[2020-11-09 18:56] LABS: Glucose, Whole Blood 141 mg/dL (60-115)
[2020-11-09] MEDS: Insulin Glargine,Hum.rec.anlog 100 UNIT/ML 10 ML VIAL 70 UNIT SUBCUT (20:46)
[2020-11-09] MEDS: traZODone HCL 100 MG TABLET PO (20:47)
[2020-11-10 05:47] VITALS: BP 126/68; PULSE 98; RESP 18; TEMP 36.1; O2SAT 96
[2020-11-10 06:27] LABS: Glucose, Whole Blood 118 mg/dL (60-115)
[2020-11-10] MEDS: metFORMIN HCl 1,000 MG TABLET 1000 MG PO ×2 (08:34→17:02)
[2020-11-10] MEDS: Gabapentin 400 MG CAPSULE 800 MG PO ×3 (08:35→21:30)
[2020-11-10] MEDS: QUEtiapine Fumarate 50 MG TABLET PO (08:36)
[2020-11-10] MEDS: LORazepam 1 MG TABLET PO ×2 (08:36→21:32)
[2020-11-10] MEDS: buPROPion HCl XL 300 MG TAB.ER.24H PO (08:36)
[2020-11-10 08:37] VITALS: BP 142/88; PULSE 85
[2020-11-10] MEDS: Multivitamin TABLET 1 TAB PO (08:37)
[2020-11-10] MEDS: Tamsulosin HCL 0.4 MG CAPSULE PO (08:37)
[2020-11-10] MEDS: Sertraline HCL 100 MG TABLET PO (08:37)
[2020-11-10] MEDS: Nicotine 21 MG PATCH.TD24 TRANSDERMA (08:41)
[2020-11-10] MEDS: Buprenorphine/Naloxone 8/2 mg TAB.SUBL 2 TAB SUBLINGUAL ×2 (08:57→09:37)
[2020-11-10] MEDS: Omeprazole 20 MG CAPSULE.DR PO (10:46)
[2020-11-10 11:50] LABS: Glucose, Whole Blood 103 mg/dL (60-115)
[2020-11-10] MEDS: Buprenorphine/Naloxone 4/1 mg FILM 1 FILM SUBLINGUAL (17:02)
[2020-11-10 17:04] LABS: Glucose, Whole Blood 193 mg/dL (60-115)
--- NOTE | 2020-11-10 17:16 | HO.PSYCHPN ---
Subjective Subjective Date of Service: 11/10/20 Reason For Visit: SI Interim History: Patient reports he is doing better, says depression is gone, his mood is good, denies any SI at all, says voices have fully resolved (and that they are typically only present when feeling depressed). Reports that withdrawal is complete and he has no symptoms. Regarding Suboxone, patient says that he has done just all right on Suboxone 8 mg b.i.d. in the past; he wants it split up now however senior mortgage underwriter explains how that is not optimal coverage. Given that he has failed Suboxone in the past and has cravings in the afternoon, senior mortgage underwriter offered to leave Suboxone 16 mg the morning which will cover his receptors and leave him protected but add 4 mg in the afternoon for his psychological cravings which seem to trigger him to relapse. Patient agrees. Patient would like discharge saying that his girlfriend is in the hospital with a rare blood disease, something social work reports is conflicting information; however patient accepts that he will need to demonstrate safety for another few days given his presentation on admission. Mental Status Exam Mental Status Exam Narrative: Pt is alert and oriented; behavior is cooperative, calm; dressed in casual attire, well groomed with good hygiene; mood is described as better...good and affect congruent; good eye contact; Speech is normal rate, volume and prosody and not pressured; no psychomotor agitation/retardation present; thought process is organized and goal directed. Thought content is on discharge; otherwise pertinent to relevant topics and without any delusional content, paranoid ideations or grandiosity; denies any SI/HI. There is no evidence of perceptual disturbance and he denies AVH. ?Patients insight and judgment appear intact. Diagnostics Vital Signs (24Hr): Vital Signs - 24 hr 11/10/20 05:47 11/10/20 08:37 Temperature 96.9 F Pulse Rate 98 85 Respiratory Rate 18 Blood Pressure 126/68 142/88 H Pulse Oximetry 96 Body Mass Index 50.8 Labs Results: 11/05/20 04:42 11/05/20 04:42 Labs: Laboratory Results - last 48 hr 11/08/20 11/09/20 11/09/20 19:13 06:15 18:51 POC Glucose 127 H 124 H 141 H 11/10/20 11/10/20 11/10/20 06:17 11:47 17:00 POC Glucose 118 H 103 193 H Medications Medications Current Medications Generic Name Dose Route Start Last Admin Trade Name Freq PRN Reason Stop Dose Admin Acetaminophen 650 mg 11/06/20 15:25 11/08/20 21:33 Acetaminophen 325 Mg Tablet PO 650 mg Q6H PRN Administration Headache/Pain Mild Scale (1-3) Al Hydroxide/Mg Hydroxide 30 ml 11/06/20 15:25 Magnesium Hydrox/Alum Hydrox 30 Ml Oral.Susp PO Q6H PRN Heartburn/Nausea Albuterol Sulfate 2 puff 11/06/20 16:26 Albuterol Sulfate 90 Mcg 8 Gm Inhaler INHALE Q4H PRN wheezing Baclofen 10 mg 11/06/20 16:54 Baclofen 10 Mg Tablet PO BID PRN muscle cramps Buprenorphine/Naloxone 2 film 11/11/20 09:00 Buprenorphine/Naloxone 8/2 Mg Film SUBLINGUAL DAILY SHABBIR Buprenorphine/Naloxone 1 film 11/10/20 17:00 11/10/20 17:02 Buprenorphine/Naloxone 4/1 Mg Film SUBLINGUAL 1 film DAILY SHABBIR Administration Bupropion HCl 450 mg 11/11/20 09:00 Bupropion Hcl Xl 150 Mg Tab.Er.24h PO DAILY SHABBIR Gabapentin 800 mg 11/06/20 21:00 11/10/20 14:33 Gabapentin 400 Mg Capsule PO 800 mg TID SHABBIR Administration Hydroxyzine HCl 25 mg 11/06/20 15:25 11/08/20 03:39 Hydroxyzine Hcl 25 Mg Tablet PO 25 mg Q6H PRN Administration Anxiety Insulin Glargine 70 unit 11/06/20 21:00 11/09/20 20:46 Insulin Glargine,Hum.Rec.Anlog 100 Unit/Ml 10 Ml Vial SUBCUT 70 unit BEDTIME SHABBIR Administration Insulin Human Lispro 0 unit 11/07/20 15:00 11/10/20 11:49 Insulin Lispro 100 Unit/Ml 3 Ml Vial SUBCUT Not Given TID [facility] Protocol Lisinopril 20 mg 11/07/20 09:00 11/10/20 08:37 Lisinopril 20 Mg Tablet PO 20 mg DAILY SHABBIR Administration Protocol Loperamide HCl 2 mg 11/06/20 16:55 Loperamide Hcl 2 Mg Capsule PO Q4H PRN Loose Stool Lorazepam 1 mg 11/06/20 16:46 11/08/20 03:39 Lorazepam 1 Mg Tablet PO 1 mg Q2H PRN Administration mild-moderate alcohol w/drawal Lorazepam 2 mg 11/06/20 16:51 Lorazepam 1 Mg Tablet PO Q2H PRN mod to severe alcohol w/drawal Lorazepam 1 mg 11/09/20 09:00 11/10/20 08:36 Lorazepam 1 Mg Tablet PO 11/10/20 23:59 1 mg BID SHABBIR Administration Lorazepam 1 mg 11/11/20 09:00 Lorazepam 1 Mg Tablet PO 11/12/20 23:59 DAILY SHABBIR Magnesium Hydroxide 30 ml 11/06/20 15:25 Milk Of Magnesia 30 Ml Oral.Susp PO DAILY PRN Constipation Metformin HCl 1,000 mg 11/06/20 17:00 11/10/20 17:02 Metformin Hcl 1,000 Mg Tablet PO 1,000 mg BIDWM SHABBIR Administration Multivitamins/Vitamin C 1 tab 11/06/20 16:26 11/10/20 08:37 Multivitamin Tablet PO 1 tab DAILY SHABBIR Administration Nicotine 21 mg 11/07/20 09:00 11/10/20 08:41 Nicotine 21 Mg Patch.Td24 TRANSDERMA 21 mg DAILY SHABBIR Administration Omeprazole 20 mg 11/07/20 09:00 11/10/20 10:46 Omeprazole 20 Mg Capsule. PO 20 mg DAILY SHABBIR Administration Pharmacy Consult 1 each 11/05/20 08:29 Consult Rx Perform Med Rec MISCELLANE ONCE PRN Consult order Quetiapine Fumarate 100 mg 11/10/20 21:00 Quetiapine Fumarate 100 Mg Tablet PO BID SHABBIR Quetiapine Fumarate 100 mg 11/10/20 13:01 Quetiapine Fumarate 100 Mg Tablet PO DAILY PRN Anxiety Sertraline HCl 100 mg 11/07/20 09:00 11/10/20 08:37 Sertraline Hcl 100 Mg Tablet PO 100 mg DAILY SHABBIR Administration Tamsulosin HCl 0.4 mg 11/07/20 09:00 11/10/20 08:37 Tamsulosin Hcl 0.4 Mg Capsule PO 0.4 mg DAILY SHABBIR Administration Trazodone HCl 50 mg 11/06/20 15:25 Trazodone Hcl 50 Mg Tablet PO BEDTIME PRN Insomnia Trazodone HCl 100 mg 11/06/20 21:00 11/09/20 20:47 Trazodone Hcl 100 Mg Tablet PO 100 mg BEDTIME SHABBIR Administration Allergies Allergies Allergy/AdvReac Type Severity Reaction Status Date / Time No Known Allergies Allergy Unverified 11/07/20 16:28 Assessment & Plan Assessment & Plan (1) MDD (major depressive disorder), recurrent episode, severe: Status: Acute Code(s): F33.2 - Major depressive disorder, recurrent severe without psychotic features (2) Opiate dependence: Status: Acute Code(s): F11.20 - Opioid dependence, uncomplicated (3) Cocaine use: Status: Acute Code(s): F14.90 - Cocaine use, unspecified, uncomplicated Assessment and Plan: IMPRESSION: Patient is a 45-year-old male with long history of substance abuse, depression, SI who presents about 1 month after discharge from [facility] with depression and SI in the face of polysubstance abuse. Patient is currently not any talking mood is he is in active withdrawal from both opiates and alcohol. Patient was willing to discuss a few things but wanted to conclude interview to start Suboxone for withdrawal symptoms. Patient is currently ambivalent about getting treatment, feeling some hopelessness about getting better. Active suicidal ideation has cleared. Will admit for safety, medication management of depression and detox Patient is improving and stabilizing. Withdrawal complete; denies depression or any SI or AVH. He says he is better and would like to discharge. Patient has a 3 day end due on Tuesday and team agrees that given patient's initial presentation it is keyes for him to continue staying on unit and demonstrate his stability. Also continuing to titrate his Suboxone and will add 4 mg for the afternoon dose to help with psychological cravings has lower doses have only been partially helpful to him in the past. Sales And Production Manager and team agree that while patient chronically remains vulnerable to relapse, titrating Suboxone is important to helping him remaining sober. PLAN: Three day due 11/12/20 Q 15 minutes checks Continue home medications restarted Wellbutrin; titrate back to 450mg Ativan taper Suboxone 16/4mg daily; ADDING 4/1mg at 3:30 pm daily (increasing dose since patient has failed Suboxone in the past likely at least in part due to under dosing) Greater than 50% of the session was spent on counseling and/or coordination of care Reason for contiued inpatient stay Substantial Risk for: med/psych decompensation
[2020-11-10 21:30] LABS: Glucose, Whole Blood 149 mg/dL (60-115)
[2020-11-10] MEDS: traZODone HCL 100 MG TABLET PO (21:32)
[2020-11-10] MEDS: QUEtiapine Fumarate 100 MG TABLET PO (21:32)
[2020-11-10] MEDS: Insulin Glargine,Hum.rec.anlog 100 UNIT/ML 10 ML VIAL 70 UNIT SUBCUT (21:36)
[2020-11-10 21:42] VITALS: BP 142/86; PULSE 83; TEMP 36.7
[2020-11-11 06:32] LABS: Glucose, Whole Blood 135 mg/dL (60-115)
[2020-11-11] MEDS: Gabapentin 400 MG CAPSULE 800 MG PO ×3 (08:41→20:38)
[2020-11-11] MEDS: Omeprazole 20 MG CAPSULE.DR PO (08:42)
[2020-11-11] MEDS: metFORMIN HCl 1,000 MG TABLET 1000 MG PO ×2 (08:42→17:35)
[2020-11-11] MEDS: Tamsulosin HCL 0.4 MG CAPSULE PO (08:42)
[2020-11-11 08:43] VITALS: BP 138/97; PULSE 92
[2020-11-11] MEDS: Sertraline HCL 100 MG TABLET PO (08:43)
[2020-11-11] MEDS: QUEtiapine Fumarate 100 MG TABLET PO ×2 (08:44→20:39)
[2020-11-11] MEDS: Multivitamin TABLET 1 TAB PO (08:44)
[2020-11-11] MEDS: LORazepam 1 MG TABLET PO (08:45)
[2020-11-11] MEDS: buPROPion HCl XL 150 MG TAB.ER.24H 450 MG PO (08:46)
[2020-11-11] MEDS: Nicotine 21 MG PATCH.TD24 TRANSDERMA (08:47)
[2020-11-11 09:00] VITALS: BP 138/97; RESP 18
[2020-11-11] MEDS: Buprenorphine/Naloxone 8/2 mg FILM 2 FILM SUBLINGUAL (09:39)
[2020-11-11] MEDS: Albuterol Sulfate 90 MCG 8 GM INHALER 2 PUFF INHALE (11:07)
[2020-11-11] MEDS: Acetaminophen 325 MG TABLET 650 MG PO ×2 (11:09→19:15)
[2020-11-11 11:42] LABS: Glucose, Whole Blood 168 mg/dL (60-115)
[2020-11-11] MEDS: Insulin Lispro 100 UNIT/ML 3 ML VIAL SUBCUT (11:45)
[2020-11-11 16:05] VITALS: BP 137/77; PULSE 107; TEMP 37.5
--- NOTE | 2020-11-11 16:21 | P.PNPSI_ITS ---
Subjective Subjective Date of Service: 11/12/20 Reason For Visit: SI Interim History: Patient reports he is in a good mood. He says all depression remains resolved, no SI and he is feeling overall optimistic about staying sober and stable. Patient says his is doing better. He is looking for to discharge tomorrow and expresses thanks for treatment received. Patient says he feels that afternoon dose of Suboxone is very helpful in staving off cravings which typically appear around this time and he would like to continue on current regimen. Patient says that he will be following up with his outpatient provider with appointments already on the books; he says currently he has enough medical supplies for his insulin regimen and will get additional supplies as needed from outpatient providers. No complaints, no requests. Mental Status Exam Mental Status Exam Narrative: Pt is alert and oriented; behavior is cooperative, calm; dressed in casual attire, well groomed with good hygiene; mood is described as good and affect congruent; good eye contact; Speech is normal rate, volume and prosody and not pressured; no psychomotor agitation/retardation present; thought process is organized and goal directed. Thought content is on discharge; otherwise pertinent to relevant topics and without any delusional content, paranoid ideations or grandiosity; denies any SI/HI. There is no evidence of perceptual disturbance and he denies AVH. ?Patients insight and judgment appear intact. Diagnostics Vital Signs (24Hr): Vital Signs - 24 hr 11/10/20 21:42 11/11/20 08:43 11/11/20 09:00 Temperature 98.1 F Pulse Rate 83 92 Respiratory Rate 18 Blood Pressure 142/86 H 138/97 H 138/97 H Body Mass Index 50.8 Labs Results: 11/05/20 04:42 11/05/20 04:42 Labs: Laboratory Results - last 48 hr 11/09/20 11/10/20 11/10/20 18:51 06:17 11:47 POC Glucose 141 H 118 H 103 11/10/20 11/10/20 11/11/20 17:00 21:26 06:28 POC Glucose 193 H 149 H 135 H 11/11/20 11:38 POC Glucose 168 H Medications Medications Current Medications Generic Name Dose Route Start Last Admin Trade Name Freq PRN Reason Stop Dose Admin Acetaminophen 650 mg 11/06/20 15:25 11/11/20 11:09 Acetaminophen 325 Mg Tablet PO 650 mg Q6H PRN Administration Headache/Pain Mild Scale (1-3) Al Hydroxide/Mg Hydroxide 30 ml 11/06/20 15:25 Magnesium Hydrox/Alum Hydrox 30 Ml Oral.Susp PO Q6H PRN Heartburn/Nausea Albuterol Sulfate 2 puff 11/06/20 16:26 11/11/20 11:07 Albuterol Sulfate 90 Mcg 8 Gm Inhaler INHALE 2 puff Q4H PRN Administration wheezing Baclofen 10 mg 11/06/20 16:54 Baclofen 10 Mg Tablet PO BID PRN muscle cramps Buprenorphine/Naloxone 2 film 11/11/20 09:00 11/11/20 09:39 Buprenorphine/Naloxone 8/2 Mg Film SUBLINGUAL 2 film DAILY SHABBIR Administration Buprenorphine/Naloxone 1 film 11/11/20 17:00 Buprenorphine/Naloxone 4/1 Mg Film SUBLINGUAL DAILY@1700 SHABBIR Bupropion HCl 450 mg 11/11/20 09:00 11/11/20 08:46 Bupropion Hcl Xl 150 Mg Tab.Er.24h PO 450 mg DAILY SHABBIR Administration Gabapentin 800 mg 11/06/20 21:00 11/11/20 14:56 Gabapentin 400 Mg Capsule PO 800 mg TID SHABBIR Administration Hydroxyzine HCl 25 mg 11/06/20 15:25 11/08/20 03:39 Hydroxyzine Hcl 25 Mg Tablet PO 25 mg Q6H PRN Administration Anxiety Insulin Glargine 70 unit 11/06/20 21:00 11/10/20 21:36 Insulin Glargine,Hum.Rec.Anlog 100 Unit/Ml 10 Ml Vial SUBCUT 70 unit BEDTIME SHABBIR Administration Insulin Human Lispro 0 unit 11/07/20 15:00 11/11/20 11:45 Insulin Lispro 100 Unit/Ml 3 Ml Vial SUBCUT 2 unit TID SHABBIR Administration Protocol Lisinopril 20 mg 11/07/20 09:00 11/11/20 08:43 Lisinopril 20 Mg Tablet PO 20 mg DAILY SHABBIR Administration Protocol Loperamide HCl 2 mg 11/06/20 16:55 Loperamide Hcl 2 Mg Capsule PO Q4H PRN Loose Stool Lorazepam 1 mg 11/11/20 09:00 11/11/20 08:45 Lorazepam 1 Mg Tablet PO 11/12/20 23:59 1 mg DAILY SHABBIR Administration Magnesium Hydroxide 30 ml 11/06/20 15:25 Milk Of Magnesia 30 Ml Oral.Susp PO DAILY PRN Constipation Metformin HCl 1,000 mg 11/06/20 17:00 11/11/20 08:42 Metformin Hcl 1,000 Mg Tablet PO 1,000 mg BIDWM SHABBIR Administration Multivitamins/Vitamin C 1 tab 11/06/20 16:26 11/11/20 08:44 Multivitamin Tablet PO 1 tab DAILY SHABBIR Administration Nicotine 21 mg 11/07/20 09:00 11/11/20 08:47 Nicotine 21 Mg Patch.Td24 TRANSDERMA 21 mg DAILY SHABBIR Administration Omeprazole 20 mg 11/07/20 09:00 11/11/20 08:42 Omeprazole 20 Mg Capsule. PO 20 mg DAILY SHABBIR Administration Pharmacy Consult 1 each 11/05/20 08:29 Consult Rx Perform Med Rec MISCELLANE ONCE PRN Consult order Quetiapine Fumarate 100 mg 11/10/20 21:00 11/11/20 08:44 Quetiapine Fumarate 100 Mg Tablet PO 100 mg BID SHABBIR Administration Quetiapine Fumarate 100 mg 11/10/20 13:01 Quetiapine Fumarate 100 Mg Tablet PO DAILY PRN Anxiety Sertraline HCl 100 mg 11/07/20 09:00 11/11/20 08:43 Sertraline Hcl 100 Mg Tablet PO 100 mg DAILY SHABBIR Administration Tamsulosin HCl 0.4 mg 11/07/20 09:00 11/11/20 08:42 Tamsulosin Hcl 0.4 Mg Capsule PO 0.4 mg DAILY SHABBIR Administration Trazodone HCl 50 mg 11/06/20 15:25 Trazodone Hcl 50 Mg Tablet PO BEDTIME PRN Insomnia Trazodone HCl 100 mg 11/06/20 21:00 11/10/20 21:32 Trazodone Hcl 100 Mg Tablet PO 100 mg BEDTIME SHABBIR Administration Allergies Allergies Allergy/AdvReac Type Severity Reaction Status Date / Time No Known Allergies Allergy Unverified 11/07/20 16:28 Assessment & Plan Assessment & Plan (1) MDD (major depressive disorder), recurrent episode, severe: Status: Acute Code(s): F33.2 - Major depressive disorder, recurrent severe without psychotic features (2) Opiate dependence: Status: Acute Code(s): F11.20 - Opioid dependence, uncomplicated (3) Cocaine use: Status: Acute Code(s): F14.90 - Cocaine use, unspecified, uncomplicated Assessment and Plan: IMPRESSION: Patient is a 45-year-old male with long history of substance abuse, depression, SI who presents about 1 month after discharge from [facility] with depression and SI in the face of polysubstance abuse. Patient is currently not any talking mood is he is in active withdrawal from both opiates and alcohol. Patient was willing to discuss a few things but wanted to conclude interview to start Suboxone for withdrawal symptoms. Patient is currently ambivalent about getting treatment, feeling some hopelessness about getting better. Active suicidal ideation has cleared. Will admit for safety, medication management of depression and detox Patient is improving and stabilizing. Withdrawal complete; denies depression or any SI or AVH. He says he is better and would like to discharge. Patient has a 3 day end due on Tuesday and team agrees that given patient's initial presentation it is keyes for him to continue staying on unit and demonstrate his stability. Also continuing to titrate his Suboxone and will add 4 mg for the afternoon dose to help with psychological cravings has lower doses have only been partially helpful to him in the past. Blanket Inspector and team agree that while patient chronically remains vulnerable to relapse, titrating Suboxone is important to helping him remaining sober. Patient has stabilized, tolerating medications well, is in a good mood and SI remains resolved. Patient appropriate for discharge tomorrow PLAN: Three day due 11/12/20 Q 15 minutes checks Continue home medications restarted Wellbutrin; titrate back to 450mg Ativan taper Suboxone 16/4mg daily; ADDING 4/1mg at 3:30 pm daily (increasing dose since patient has failed Suboxone in the past likely at least in part due to under dosing) Greater than 50% of the session was spent on counseling and/or coordination of care Reason for contiued inpatient stay Substantial Risk for: stable for discharge
[2020-11-11] MEDS: Buprenorphine/Naloxone 4/1 mg FILM 1 FILM SUBLINGUAL (16:39)
[2020-11-11 18:47] LABS: Glucose, Whole Blood 177 mg/dL (60-115)
[2020-11-11 19:53] LABS: COVID-19 Test Negative (Negative)
[2020-11-11 20:37] LABS: Glucose, Whole Blood 101 mg/dL (60-115)
[2020-11-11] MEDS: Insulin Glargine,Hum.rec.anlog 100 UNIT/ML 10 ML VIAL 70 UNIT SUBCUT (20:38)
[2020-11-11] MEDS: traZODone HCL 100 MG TABLET PO (20:38)
[2020-11-12] MEDS: traZODone HCL 50 MG TABLET PO (03:11)
[2020-11-12] MEDS: Acetaminophen 325 MG TABLET 650 MG PO ×2 (03:11→10:01)
[2020-11-12 05:27] LABS: Glucose, Whole Blood 110 mg/dL (60-115)
[2020-11-12 05:51] VITALS: BP 117/67; PULSE 72; RESP 18; TEMP 36.4; O2SAT 96
[2020-11-12 06:00] VITALS: BP 117/67; PULSE 72; RESP 18; TEMP 36.4; O2SAT 96
[2020-11-12] MEDS: Nicotine 21 MG PATCH.TD24 TRANSDERMA (08:38)
[2020-11-12] MEDS: buPROPion HCl XL 150 MG TAB.ER.24H 450 MG PO (08:38)
[2020-11-12] MEDS: Omeprazole 20 MG CAPSULE.DR PO (08:39)
[2020-11-12] MEDS: Gabapentin 400 MG CAPSULE 800 MG PO (08:39)
[2020-11-12] MEDS: metFORMIN HCl 1,000 MG TABLET 1000 MG PO (08:39)
[2020-11-12] MEDS: LORazepam 1 MG TABLET PO (08:39)
[2020-11-12 08:40] VITALS: BP 136/76; PULSE 78
[2020-11-12] MEDS: Tamsulosin HCL 0.4 MG CAPSULE PO (08:40)
[2020-11-12] MEDS: QUEtiapine Fumarate 100 MG TABLET PO (08:40)
[2020-11-12] MEDS: Multivitamin TABLET 1 TAB PO (08:40)
[2020-11-12] MEDS: Sertraline HCL 100 MG TABLET PO (08:40)
[2020-11-12] MEDS: Buprenorphine/Naloxone 8/2 mg FILM 2 FILM SUBLINGUAL (10:02)
[2020-11-12 10:21] VITALS: TEMP 36.8
--- NOTE | 2020-11-12 11:30 | P.DS_ITS ---
DS: Providers Provider Date of Service: 11/12/20 Date of admission: 11/06/20 15:26 Date of discharge: 11/12/20 Primary care physician: Pato Shaikh MD Attending physician on admission: Tirso Aquino Consults: 11/07/20 10:02 Addiction Medicine Routine Consulting Provider: Mer Sanchez Reason for consultation: opioid withdrawal Attending physician on discharge: Tirso Aquino DS: Diagnosis Discharge Diagnosis (1) MDD (major depressive disorder), recurrent episode, severe: Status: Chronic (2) Opiate dependence: Status: Chronic (3) Cocaine use: Status: Chronic DS: Medications Discharge Medications Home Medications: Home Medications Medication Instructions Recorded Confirmed multivitamin (One Daily 1 tab PO QAM 10/02/20 11/05/20 Multivitamin) Previous Rx's Medication Instructions Recorded albuterol sulfate 90 mcg/actuation 2 puff INHALATION Q4H PRN 30 Days 11/12/20 aerosol inhaler (ProAir HFA) #6.7 g buprenorphine 8 mg-naloxone 2 mg 2.5 film SUBLINGUAL DAILY 5 Days 11/12/20 sublingual film (Suboxone) #13 ea bupropion HCl 150 mg 24 hr tablet, 450 mg PO DAILY 30 Days #90 tab 11/12/20 extended release gabapentin 800 mg tablet 800 mg PO TID 15 Days #45 tab 11/12/20 insulin glargine 100 unit/mL 70 unit SUBCUT BEDTIME 30 Days #21 11/12/20 subcutaneous solution (Lantus ml U-100 Insulin) insulin lispro 100 unit/mL 2 - 17 unit SUBCUT TID 30 Days #10 11/12/20 subcutaneous solution (Humalog ml U-100 Insulin) lisinopril 20 mg tablet 20 mg PO DAILY 30 Days #30 tab 11/12/20 metformin 1,000 mg tablet 1,000 mg PO BIDWM 30 Days #60 tab 11/12/20 naloxone 4 mg/actuation nasal 1 spray INTRANASAL NEEDED PRN 1 11/12/20 spray (Narcan) Days #2 ea omeprazole 20 mg capsule,delayed 20 mg PO DAILY 30 Days #30 cap 11/12/20 release quetiapine 100 mg tablet 100 mg PO BID 30 Days #60 tab 11/12/20 sertraline 100 mg tablet 100 mg PO QAM 30 Days #30 tab 11/12/20 tamsulosin 0.4 mg capsule 0.4 mg PO QAM 30 Days #30 cap 11/12/20 trazodone 100 mg tablet 100 mg PO BEDTIME 30 Days #30 tab 11/12/20 Mental Status Exam Mental Status Exam Narrative: Pt is alert and oriented; behavior is cooperative, calm; dressed in casual attire, well groomed with good hygiene; mood is described as good and affect congruent; good eye contact; Speech is normal rate, volume and prosody and not pressured; no psychomotor agitation/retardation present; thought process is organized and goal directed. Thought content is on discharge; otherwise pertinent to relevant topics and without any delusional content, paranoid ideations or grandiosity; denies any SI/HI. There is no evidence of perceptual disturbance and he denies AVH. ?Patients insight and judgment appear intact. Data Data Completed and Pending Completed studies during hospitalization [Text1]: 11/05/20 11/06/20 11/06/20 19:16 13:42 19:52 POC Glucose 174 H 111 COVID-19 ([facility]) Negative COVID-19 Clin Com See Note 11/07/20 11/07/20 11/07/20 05:57 12:10 16:36 POC Glucose 132 H 105 121 H COVID-19 ([facility]) COVID-19 Clin Com 11/07/20 11/08/20 11/08/20 20:29 06:14 19:13 POC Glucose 128 H 96 127 H COVID-19 ([facility]) COVID-19 Clin Com 11/09/20 11/09/20 11/10/20 06:15 18:51 06:17 POC Glucose 124 H 141 H 118 H COVID-19 ([facility]) COVID-19 Clin Com 11/10/20 11/10/20 11/10/20 11:47 17:00 21:26 POC Glucose 103 193 H 149 H COVID-19 ([facility]) COVID-19 Clin Com 11/11/20 11/11/20 11/11/20 06:28 11:38 18:43 POC Glucose 135 H 168 H 177 H COVID-19 ([facility]) COVID-19 Clin Com 11/11/20 11/11/20 11/12/20 19:29 20:32 05:25 POC Glucose 101 110 COVID-19 ([facility]) Negative COVID-19 Clin Com See Note DS: Summary Hospital Course Hospital Course: Patient is a 45-year-old male with long history of substance abuse, depression, SI who presents about 1 month after discharge from [facility] with depression and SI in the face of polysubstance abuse.? Patient signed a CV. On admission patient reported depression, but that SI had resolved. He was in withdrawal from alcohol and opiates which were treated by restarting and titrating Suboxone for opiate withdrawal and placing patient on Ativan taper; detox was completed without complications. As patient's symptoms of withdrawal resolved, his mood did improve. 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 Patient felt like this was a good addition to his regimen and wanted to continue with it. Patient did not want to go to the [facility], but wanted to work on his sobriety as an outpatient. His depression remained resolved, his affect was noticeably brighter and he reported being in a good mood. Patient was optimistic about staying sober given his increased Suboxone dosing. Patient signed a 3 day notice and wanted discharge. Patient continued to deny any suicidal or homicidal ideation during admission and demonstrated appropriate behaviors and impulse control on the unit. His mood remains stable and he was not in imminent risk for harm to self or others. Patient's request for discharge honored. Time spent discussing smoking cessation with patient: 3 to 10 minutes (does not want MAT) Status at Discharge Functional status at discharge: independent ambulation Overall status at discharge: patient is back to baseline Time Spent with Patient Time attestation: Total time spent providing and/or coordinating discharge services: Time spent: Less than 30 minutes Discharge Plan Discharge Patient Disposition: Home, Self-Care Discharge Diagnosis: MDD, recurrent, severe in full remission Referrals: Kerry Tapia (medication management) [Other] - 11/26/20 10:30 am (This appointment is via Telehealth) Columba Finley (therapy) [Other] - 11/13/20 9:30 am (This appointment is over the phone. Please call Columba and give her your new phone number before your appointment or she will be contacting you at your father's number) [facility] (Suboxone) [Other] - 11/14/20 10:00 am (The Intake appointment will be over the phone. Please call [facility] at the above number with your new phone number before your appointment on Tuesday) Pato Gastelum MD [Primary Care Provider] - 11/13/20 10:00 am (Via Phone ) Discharge Medications: New quetiapine 100 mg Tablet 100 mg PO BID 30 Days Qty: 60 RF: 0 bupropion HCl 150 mg Tablet Extended Release 24 Hr 450 mg PO DAILY 30 Days Qty: 90 RF: 0 buprenorphine-naloxone [Suboxone] 8-2 mg Film 2.5 film sublingual DAILY 5 Days Qty: 13 RF: 0 Continued multivitamin [One Daily Multivitamin] Tablet 1 tab PO QAM RF: 0 Lantus U-100 Insulin 100 unit/mL solution 70 unit subcut BEDTIME 30 Days Qty: 21 RF: 0 lisinopril 20 mg Tablet 20 mg PO DAILY 30 Days Qty: 30 RF: 0 sertraline 100 mg tablet 100 mg PO QAM 30 Days Qty: 30 RF: 0 gabapentin 800 mg tablet 800 mg PO TID 15 Days Qty: 45 RF: 1 metformin 1,000 mg Tablet 1,000 mg PO BIDWM 30 Days Qty: 60 RF: 0 omeprazole 20 mg Capsule,Delayed Release(Dr/Ec) 20 mg PO DAILY 30 Days Qty: 30 RF: 0 insulin lispro [Humalog U-100 Insulin] 100 unit/mL solution 2 - 17 unit subcut TID 30 Days Qty: 10 RF: 1 albuterol sulfate [ProAir HFA] 90 mcg/actuation HFA aerosol inhaler 2 puff inhalation Q4H PRN (Reason: wheezing) 30 Days Qty: 6.7 RF: 0 Narcan 4 mg/actuation spray,non-aerosol 1 spray intranasal NEEDED PRN (Reason: Opioid Overdose) 1 Days Qty: 2 RF: 0 Changed tamsulosin 0.4 mg capsule 0.4 mg PO QAM 30 Days Qty: 30 RF: 0 trazodone 100 mg tablet 100 mg PO BEDTIME 30 Days Qty: 30 RF: 0 Discontinued buprenorphine-naloxone [Suboxone] 8-2 mg film 2 film sublingual DAILY 7 Days Qty: 14 RF: 0 quetiapine 50 mg tablet 50 mg PO BID RF: 0 sulfamethoxazole-trimethoprim 800-160 mg Tablet 1 tab PO Q12H 7 Days Qty: 14 RF: 0 bupropion HCl 150 mg tablet sustained-release 12 hr 3 tab PO DAILY RF: 0 nicotine 21 mg/24 hr patch 24 hour 1 patch topical DAILY RF: 0 Discharge Orders: Discharge Order (Routine); Ordered 11/12/20 Ordered By: Tirso Aquino Diet: diabetic diet Activity on Discharge: As tolerated Stand Alone Forms: Patient Portal Discharge page Care Plan Goals: Maintain mood and safe behaviors Take medications as prescribed Continue to pursue sobriety Practice coping skills Continue with outpatient providers and reach out to them as needed ? Health Concerns: Mood instability and behaviors Substance abuse Diabetes Mellitus Plan of Treatment: Follow up with your PCP and psychiatric provider regarding above concerns Take medications as prescribed Assessment: Risk assessment at time of discharge:? Patient was interviewed prior to discharge and found to be fully oriented and without any SI or HI. Patient has insight and demonstrates good judgment in terms of wanting to pursue treatment. Patient is not in imminent risk of harm to self or others and has a safety plan that includes presenting to the closest ER or calling 911 if feeling unsafe.? Patient has been observed closely by nursing and unit staff throughout admission; patient has not engaged in any behaviors that suggest dangerousness to self or others and has demonstrated appropriate behaviors and impulse control.
[2020-11-12] MEDS: Naloxone HCl Nasal TAKE HOME 4 MG SPRAY NOSTRILALT (11:52)
== END 2020-11-12 14:10 | disposition home or self-care (01) | DRG 751 ==
LOC: HO.ED 10:43 → HO.PM5 11-06 15:41
PROVIDERS: Psychiatry & Neurology Psychiatry; Admitting Provider Psychiatry & Neurology Psychiatry; Emergency Provider Student in an Organized Health Care Education/Training Program; PCP Internal Medicine; Visit Provider Psychiatry & Neurology Psychiatry
DX: F33.2 Major depressive disorder, recurrent severe without psychotic features (principal); R45.851 Suicidal ideations; E11.9 Type 2 diabetes mellitus without complications; F11.23 Opioid dependence with withdrawal; F17.210 Nicotine dependence, cigarettes, uncomplicated; Z71.6 Tobacco abuse counseling; F14.90 Cocaine use, unspecified, uncomplicated; Z20.822 Contact with and (suspected) exposure to COVID-19; Z79.4 Long term (current) use of insulin; Z79.899 Other long term (current) drug therapy
CPT/HCPCS: 36415; 80053; 80307; 81003; 82077; 82947; 85025; 87635; 93005; 99285

== ENCOUNTER 2020-11-14 20:43 | Inpatient (IN) | payer MEDICAID, SELFPAY ==
--- NOTE | ~2020-11-14 | XR_ITS ---
EXAMINATION: CHEST 2 VIEWS CLINICAL INFORMATION: Fever, rule out pneumonia . COMPARISON: 06/14/2020. TECHNIQUE: PA and lateral views of the chest obtained. FINDINGS: The lungs are well expanded. No focal infiltrate, effusion, edema, or pneumothorax. Cardiac and mediastinal silhouettes are within normal limits for technique. No acute bony abnormality seen XR/XR chest 2V IMPRESSION: No evidence of acute disease
[2020-11-14 20:53] VITALS: BP 128/80; PULSE 92; PULSE 98; RESP 16; TEMP 36.8; O2SAT 97; O2SAT 98; BMI 23.8
--- NOTE | 2020-11-14 21:09 | ED.GENADULT ---
HPI - General Adult General Chief complaint: ETOH/Substance Use Stated complaint: od Time Seen by Provider: 11/14/20 21:09 Source: patient and EMS Mode of arrival: EMS Limitations: other (poor historian) History of Present Illness HPI narrative: called 911 himself complaint: sitting in alley using heroin/crack Onset (ago): week(s) Severity: moderate Relieving factors: none Exacerbating factors: none Associated symptoms: denies other symptoms Treatments prior to arrival: none Related Data Home Medications Medication Instructions Recorded Confirmed multivitamin (One Daily 1 tab PO QAM 10/02/20 11/05/20 Multivitamin) Previous Rx's Medication Instructions Recorded albuterol sulfate 90 mcg/actuation 2 puff INHALATION Q4H PRN 30 Days 11/12/20 aerosol inhaler (ProAir HFA) #6.7 g buprenorphine 8 mg-naloxone 2 mg 2.5 film SUBLINGUAL DAILY 5 Days 11/12/20 sublingual film (Suboxone) #13 ea bupropion HCl 150 mg 24 hr tablet, 450 mg PO DAILY 30 Days #90 tab 11/12/20 extended release gabapentin 800 mg tablet 800 mg PO TID 15 Days #45 tab 11/12/20 insulin glargine 100 unit/mL 70 unit SUBCUT BEDTIME 30 Days #21 11/12/20 subcutaneous solution (Lantus ml U-100 Insulin) insulin lispro 100 unit/mL 2 - 17 unit SUBCUT TID 30 Days #10 11/12/20 subcutaneous solution (Humalog ml U-100 Insulin) lisinopril 20 mg tablet 20 mg PO DAILY 30 Days #30 tab 11/12/20 metformin 1,000 mg tablet 1,000 mg PO BIDWM 30 Days #60 tab 11/12/20 naloxone 4 mg/actuation nasal 1 spray INTRANASAL NEEDED PRN 1 11/12/20 spray (Narcan) Days #2 ea omeprazole 20 mg capsule,delayed 20 mg PO DAILY 30 Days #30 cap 11/12/20 release quetiapine 100 mg tablet 100 mg PO BID 30 Days #60 tab 11/12/20 sertraline 100 mg tablet 100 mg PO QAM 30 Days #30 tab 11/12/20 tamsulosin 0.4 mg capsule 0.4 mg PO QAM 30 Days #30 cap 11/12/20 trazodone 100 mg tablet 100 mg PO BEDTIME 30 Days #30 tab 11/12/20 Allergies Allergy/AdvReac Type Severity Reaction Status Date / Time No Known Allergies Allergy Verified 11/14/20 21:00 Review of Systems Review of Systems: Constitutional : No Fever, No Chills ENT/Mouth : No Ear Pain, No Nasal Congestion, No sore throat Eyes: No Eye Pain, No Swelling, No Redness Cardiovascular : No Chest Pain, No SOB Respiratory : No Cough, No Sputum, No Dyspnea Gastrointestinal : No Nausea, No Vomiting, No Diarrhea, No Hematochezia, No Melena Genitourinary : No Dysuria, No Urinary Frequency, No Hematuria Musculoskeletal : No Myalgias Skin : No Skin Lesions, No rash Neuro : No Weakness, No Numbness, No Paresthesias, No Dizziness, No Headache Psych : positive Anxiety, positive Depression, no SI/HI Heme/Lymph: No Lymphadenopathy Endocrine : No Polyuria, No Polydipsia All other systems reviewed and are negative [facility] Past Medical History Medical History Alcohol use Alcohol use disorder, severe, dependence Chronic pain Diverticulitis DM II (diabetes mellitus, type II), controlled High cholesterol (~10/11/20) HTN (hypertension) Marijuana use MDD (major depressive disorder), recurrent episode, severe Neuropathy Opiate dependence Opioid use disorder Opioid use disorder Stimulant use disorder Tobacco use disorder Urinary hesitancy Social History Social History Household Members: None Housing: Homeless Do you presently have visiting nurse or other home services: No Unable to assess alcohol history related to: Refusing to respond Alcohol intake: current Alcohol intake frequency: 0-2 drinks per day Alcohol type: beer and hard liquor Patient Tobacco Use Status: Current everyday Tobacco user Tobacco use type: Cigarette Cigarette Packs Per Day: 1.5 Cigarettes Per Day: 30.0 Years Smoked: 10 e-Cigarette/Vaping Use: Never Used Second Hand Smoke Exposure: Yes Substance Use Type: Crack/Cocaine and Heroin Advance Directives: No service: No Sexual orientation: Did not discuss Physical Exam Vital Signs: Vital Signs: Last Vital Signs Temp 98.2 F 11/14/20 20:53 Pulse 92 11/14/20 20:53 Resp 16 11/14/20 20:53 BP 128/80 11/14/20 20:53 Pulse Ox 98 11/14/20 20:53 Body Mass Index 23.8 Appearance: Alert. Oriented X3. No acute distress. jittery intermittently not talking Eyes: Pupils equal, round and reactive to light. ENT: Pharynx normal. Neck: Normal inspection. Neck supple. CVS: Normal heart rate and rhythm. Pulses normal. Respiratory: No respiratory distress. Breath sounds normal. Abdomen: Soft and nontender. Skin: Skin warm and dry. Normal skin color. Normal skin turgor. Extremities: No lower extremity edema. No calf ttp Neuro: Oriented X 3. No motor deficit. No sensory deficit. Course Course Course Narrative: patient now stating he is homicidal, labs, N consult placed Physician observation started at 1217am Patient placed in physician observation because the patient needed more time for clinical sobriety and to see [facility] to be evaluated for the need for psych admission. At the time observation was started the patient's vitals were stable, patient is alert and oriented but slightly agitated, Neuro: nonfocal, CV RRR, Lungs clear signed out pending [facility] Medical Decision Making [facility] Narrative Medical decision making narrative: 45 yo male with hx of depression, hepatitis C, substance abuse, DM here after using heroin and crack - wants detox, will obtain VICKIE and drug abuse, PRN ativan, no signs of overdose, VS stable Lab Data Labs: Lab Results 11/14/20 11/14/20 Range/Units 21:21 22:11 POC Glucose 116 H (60-115) mg/dL Urine Opiates Screen POSITIVE H (Not Detect) Ur Barbiturates Screen Not Detected (Not Detect) Ur Phencyclidine Scrn Not Detected (Not Detect) Ur Amphetamines Screen Not Detected (Not Detect) U Benzodiazepines Scrn Not Detected (Not Detect) Urine Cocaine Screen POSITIVE H (Not Detect) U Marijuana (THC) Screen POSITIVE H (Not Detect) Discharge Plan Discharge Clinical Impression: Polysubstance (including opioids) dependence, daily use Instructions: Polysubstance Abuse (ED) Additional Instructions: return to ED for any worsening symptoms or concerns please use the detox list given to you and make phone calls Prescriptions: No Action multivitamin [One Daily Multivitamin] Tablet 1 tab PO QAM RF: 0 quetiapine 100 mg Tablet 100 mg PO BID 30 Days Qty: 60 RF: 0 bupropion HCl 150 mg Tablet Extended Release 24 Hr 450 mg PO DAILY 30 Days Qty: 90 RF: 0 buprenorphine-naloxone [Suboxone] 8-2 mg Film 2.5 film sublingual DAILY 5 Days Qty: 13 RF: 0 Lantus U-100 Insulin 100 unit/mL solution 70 unit subcut BEDTIME 30 Days Qty: 21 RF: 0 lisinopril 20 mg Tablet 20 mg PO DAILY 30 Days Qty: 30 RF: 0 sertraline 100 mg tablet 100 mg PO QAM 30 Days Qty: 30 RF: 0 tamsulosin 0.4 mg capsule 0.4 mg PO QAM 30 Days Qty: 30 RF: 0 gabapentin 800 mg tablet 800 mg PO TID 15 Days Qty: 45 RF: 1 trazodone 100 mg tablet 100 mg PO BEDTIME 30 Days Qty: 30 RF: 0 metformin 1,000 mg Tablet 1,000 mg PO BIDWM 30 Days Qty: 60 RF: 0 omeprazole 20 mg Capsule,Delayed Release(Dr/Ec) 20 mg PO DAILY 30 Days Qty: 30 RF: 0 insulin lispro [Humalog U-100 Insulin] 100 unit/mL solution 2 - 17 unit subcut TID 30 Days Qty: 10 RF: 1 albuterol sulfate [ProAir HFA] 90 mcg/actuation HFA aerosol inhaler 2 puff inhalation Q4H PRN (Reason: wheezing) 30 Days Qty: 6.7 RF: 0 Narcan 4 mg/actuation spray,non-aerosol 1 spray intranasal NEEDED PRN (Reason: Opioid Overdose) 1 Days Qty: 2 RF: 0
--- NOTE | 2020-11-14 21:24 | PC.NURSE ---
POC was 116 at 2121.
[2020-11-14 21:26] LABS: Glucose, Whole Blood 116 mg/dL (60-115)
--- NOTE | 2020-11-14 22:21 | PC.NURSE ---
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 CALM AND COOPERATIVE AT THIS TIME.
[2020-11-14 22:41] LABS: Amphetamine Screen Urine Not Detected (Not Detect); Barbiturates, Urine Not Detected (Not Detect); Benzodiazepines Screen Urine Not Detected (Not Detect); Cannabinoid Screen Urine POSITIVE (Not Detect); Cocaine Screen Urine POSITIVE (Not Detect); Opiate Screen Urine POSITIVE (Not Detect); Phencyclidine Screen Urine Not Detected (Not Detect)
--- NOTE | 2020-11-15 00:06 | MHC.CARE ---
Pt presents to ED seeking detox. T/W met with pt who now reports I don't feel safe going to detox . Pt states I have so much drugs in me right now I could kill you and your family . Pt states I tried killing myself 7 times, I always have suicidal ideation . Staff suspect pt used in the bathroom due to pt's behaviors. Pt appears highly under the influence of drugs, scratching self and intense body movements. Pt appears agitated with t/w's questions. Pt will likely need a crisis evaluation once more clear and will benefit from meeting with the Recovery Team.
[2020-11-15] MEDS: LORazepam 1 MG TABLET 2 MG PO ×3 (00:45→18:28)
--- NOTE | 2020-11-15 01:14 | PC.NURSE ---
ciwa scale cant be done at this time. pt is jacked up on drugs he states he has been doing for 4 days. pt is jittery, very expressive with his arms. pt is snorting occassionally. treated with ativan and waiting effect. pt labs being drawn at this time. pt noted to have blue ontiveros on his tongue pt states it was candy he was eating.
[2020-11-15 01:31] LABS: Basophils Percent Auto 0.2 % (0-2); Eosinophils Percent Auto 0.1 % (0-4); Hematocrit 38.6 % (42-52); Hemoglobin 13.1 g/dl (14.0-18.0); Imm Gran Abs Auto 0.06 X10*3/uL (0.00-0.03); Imm Gran Pct Auto 0.4 % (0.0-0.4); Lymphocytes Absolute Auto 1.5 X10*3/uL (1.2-4.9); Lymphocytes Percent Auto 10.8 % (20-40); MANUAL DIFF FLAG SCAN; Mean Corpuscular HGB Conc 33.9 g/dl (31.0-36.0); Mean Corpuscular Hemoglobin 29.6 pg (27.0-33.0); Mean Corpuscular Volume 87.3 fL (80-98); Mean Platelet Volume 10.1 fL (9.4-12.4); Monocytes Absolute Auto 1.9 X10*3/uL (0.1-1.2); Monocytes Percent Auto 13.9 % (2-11); Neutrophils Absolute Auto 10.4 X10*3/uL (2.0-8.3); Neutrophils Percent Auto 74.6 % (45-73); Platelet Count 325 X10*3/uL (160-400); Red Blood Count 4.42 X10*6/uL (4.60-5.80); Red Cell Distribution Width 13.2 % (11.0-16.0); SCAN SMEAR FLAG 1; White Blood Count 13.9 X10*3/uL (4.8-10.8)
[2020-11-15 01:58] LABS: Alanine Aminotransferase 43 U/L (0-40); Albumin Level 3.9 g/dL (3.5-5.0); Alkaline Phosphatase 74 U/L (39-117); Anion Gap 18 (12-20); Aspartate Amino Transferase 68 U/L (5-37); Bilirubin Direct 0.6 mg/dL (0.0-0.5); Bilirubin Total 1.3 mg/dL (0.0-1.0); Blood Urea Nitrogen 15 mg/dL (9-16); Calcium 8.8 mg/dL (8.4-10.2); Carbon Dioxide 28 mmol/L (22-29); Chloride 90 mmol/L (96-108); Creatinine Clr Calc Pharmacy 118.4; Estimated Glomerular Filt Rate > 60; Glucose Random 115 mg/dL (60-115); Sodium 132 mmol/L (135-145); Total Protein 7.7 g/dL (6.5-8.0)
[2020-11-15 02:00] LABS: SLIDE REVIEW VERIFIED
[2020-11-15 02:19] LABS: Influenza A PCR NEGATIVE (Negative); Influenza B PCR NEGATIVE (Negative); Resp Syncy Virus RNA Qual PCR NEGATIVE (Negative); SARS COV2 PCR INHOUSE NEGATIVE (Negative)
--- NOTE | 2020-11-15 02:31 | PC.NURSE ---
pt is feeling very restless. thrashing in his bed, unable to relax to fall asleep. pt treated with ativan and not effective. provider made aware.
--- NOTE | 2020-11-15 03:32 | PC.NURSE ---
pt medicated with ativan po for restless, jumpy and aggitated. pt is passing in his room, warm blanket offered, food at bedside.
--- NOTE | 2020-11-15 05:42 | PC.NURSE ---
pt prefers to lay on the floor, pillow and blanket given. pt is still restless with some slight improvement. pt is visable on the monitor, pt is cooperative, ambulates to bathroom with steady gait.
[2020-11-15 07:55] LABS: Glucose, Whole Blood 141 mg/dL (60-115)
[2020-11-15] MEDS: Tamsulosin HCL 0.4 MG CAPSULE PO (09:57)
[2020-11-15] MEDS: Atorvastatin Calcium 20 MG TABLET PO (09:57)
[2020-11-15] MEDS: Gabapentin 400 MG CAPSULE 800 MG PO ×2 (09:57→16:13)
[2020-11-15] MEDS: metFORMIN HCl 1,000 MG TABLET 1000 MG PO ×2 (09:57→16:13)
[2020-11-15] MEDS: Multivitamin TABLET 1 TAB PO (09:57)
[2020-11-15 11:24] VITALS: BP 126/76; PULSE 90; RESP 16; TEMP 36.7; O2SAT 97
--- NOTE | 2020-11-15 12:30 | PC.NURSE ---
bhn at bedside, pt is reluctant/refusing to speak with bhn at this time. pt is encourage to speak with bhn.
--- NOTE | 2020-11-15 12:33 | PC.NURSE ---
pt requested/given a warm blanket and is speaking with bhn.
--- NOTE | 2020-11-15 14:17 | PC.NURSE ---
Per BHN pt is to need a re-eval as he was not alert enough for evaluation. 20 minutes after BHN left pt noted to be sitting up, rocking, eating his lunch.
--- NOTE | 2020-11-15 16:38 | PC.NURSE ---
pt up to bathroom with slow steady gait. No signs of distress noted at this time. Will continue to monitor.
[2020-11-15 17:48] LABS: Glucose, Whole Blood 132 mg/dL (60-115)
[2020-11-15 18:09] VITALS: BP 111/87; PULSE 112; TEMP 36.8; O2SAT 96
--- NOTE | 2020-11-15 23:29 | PC.NURSE ---
Patient was witnessed urinating in sink by this nurse. Re-educated on the inappropriateness of this act and re-directed to were the bathroom facilities were.
[2020-11-16] VITALS (9 sets, daily range): BP systolic 100–180; BP diastolic 60–99; PULSE 74–125; RESP 16–20; TEMP 36.7–39.1; O2SAT 96–100
[2020-11-16 09:29] LABS: Basophils Percent Auto 0.2 % (0-2); Hematocrit 42.2 % (42-52); Hemoglobin 14.3 g/dl (14.0-18.0); Imm Gran Abs Auto 0.06 X10*3/uL (0.00-0.03); Imm Gran Pct Auto 0.3 % (0.0-0.4); Lymphocytes Absolute Auto 0.7 X10*3/uL (1.2-4.9); MANUAL DIFF FLAG SCAN; Mean Corpuscular HGB Conc 33.9 g/dl (31.0-36.0); Mean Corpuscular Hemoglobin 29.7 pg (27.0-33.0); Mean Corpuscular Volume 87.7 fL (80-98); Mean Platelet Volume 10.1 fL (9.4-12.4); Monocytes Percent Auto 11.9 % (2-11); Neutrophils Absolute Auto 14.4 X10*3/uL (2.0-8.3); Neutrophils Percent Auto 83.6 % (45-73); Platelet Count 323 X10*3/uL (160-400); Red Blood Count 4.81 X10*6/uL (4.60-5.80); Red Cell Distribution Width 13.4 % (11.0-16.0); SCAN SMEAR FLAG 1; White Blood Count 17.2 X10*3/uL (4.8-10.8)
[2020-11-16] MEDS: metFORMIN HCl 1,000 MG TABLET 1000 MG PO ×2 (09:44→19:30)
[2020-11-16 09:46] LABS: Lactic Acid 0.8 mmol/L (0.5-2.0)
[2020-11-16 09:48] LABS: SLIDE REVIEW VERIFIED
[2020-11-16] MEDS: Atorvastatin Calcium 20 MG TABLET PO (10:12)
[2020-11-16] MEDS: Multivitamin TABLET 1 TAB PO (10:12)
[2020-11-16] MEDS: Tamsulosin HCL 0.4 MG CAPSULE PO (10:12)
[2020-11-16] MEDS: Gabapentin 400 MG CAPSULE 800 MG PO ×3 (10:12→21:58)
[2020-11-16] MEDS: Acetaminophen 325 MG TABLET 975 MG PO ×2 (10:14→16:06)
[2020-11-16 10:16] LABS: Alanine Aminotransferase 39 U/L (0-40); Albumin Level 3.9 g/dL (3.5-5.0); Alkaline Phosphatase 77 U/L (39-117); Anion Gap 15 (12-20); Aspartate Amino Transferase 44 U/L (5-37); Bilirubin Total 1.2 mg/dL (0.0-1.0); Blood Urea Nitrogen 16 mg/dL (9-16); Calcium 8.7 mg/dL (8.4-10.2); Carbon Dioxide 29 mmol/L (22-29); Chloride 91 mmol/L (96-108); Creatinine Clr Calc Pharmacy 106.8; Estimated Glomerular Filt Rate > 60; Glucose Random 161 mg/dL (60-115); Lipase < 4 U/L (8-78); Sodium 131 mmol/L (135-145); Total Protein 7.8 g/dL (6.5-8.0)
[2020-11-16] MEDS: cefTRIAXone sodium 1 GM in 0.9 % Sodium Chloride 50 ML IV (11:35)
[2020-11-16 11:38] LABS: Influenza A PCR NEGATIVE (Negative); Influenza B PCR NEGATIVE (Negative); Resp Syncy Virus RNA Qual PCR NEGATIVE (Negative); SARS COV2 PCR INHOUSE NEGATIVE (Negative)
--- NOTE | 2020-11-16 11:54 | PC.NURSE ---
pt resting quietly, awakens to commands but quickly falls back asleep. pt is sweaty, temp taken at 98.3 - pt denies fever, chills, he is not tremulous.
[2020-11-16 11:58] LABS: Adenovirus PCR Not Detected (Not Detect.); Bordetella parapertussis PCR Not Detected (Not Detect.); Bordetella pertussis PCR Not Detected (Not Detect.); Chlamydia pneumoniae PCR Not Detected (Not Detect.); Coronavirus 229E PCR Not Detected (Not Detect.); Coronavirus HKU1 PCR Not Detected (Not Detect.); Coronavirus NL63 PCR Not Detected (Not Detect.); Coronavirus OC43 PCR Not Detected (Not Detect.); Human metapneumovirus PCR Not Detected (Not Detect.); Influenza A PCR Not Detected (Not Detect.); Influenza B PCR Not Detected (Not Detect.); Mycoplasma pneumoniae PCR Not Detected (Not Detect.); Parainfluenza 1 PCR Not Detected (Not Detect.); Parainfluenza 2 PCR Not Detected (Not Detect.); Parainfluenza 3 PCR Not Detected (Not Detect.); Parainfluenza 4 PCR Not Detected (Not Detect.); RSV PCR Not Detected (Not Detect.); Rhino/Enterovirus PCR Not Detected (Not Detect.); SARS-CoV-2 PCR Not Detected (Not Detect.)
[2020-11-16 13:44] LABS: Glucose Urine UA NEG (NEG); Leukocyte Esterase Urine 2+ (NEG); Nitrite Urine POS (NEG); UACC Culture Trigger YES; Urine Blood 1+ (NEG); Urine Ketones NEG (NEG); Urine Protein 2+ MG/DL (NEG-TRACE)
[2020-11-16 13:46] LABS: Appearance Urine CLOUDY; Color Urine YELLOW
--- NOTE | 2020-11-16 13:48 | PC.NURSE ---
Pt ate 100% of lunch, resting in bed, easily awaken then quickly falls back to sleep. Pt skin is warm, moist w/ sweat, vss, rr even and unlabored, no apparent distress. Dr. Garcia aware of pt CIWA score, ? phenobarb protocol.
[2020-11-16 14:07] LABS: Bacteria Urine 4+ /LPF; RBC Urine 0-2 /HPF (0); Squamous Epithelial Cell Urine 1+ /LPF; WBC Urine 50-75 /HPF (0-4)
[2020-11-16] MEDS: LORazepam 1 MG TABLET 2 MG PO (16:05)
--- NOTE | 2020-11-16 18:59 | PC.NURSE ---
REJIN at bedside for re-assessment
--- NOTE | 2020-11-16 19:14 | PC.NURSE ---
Pt drowsy during assessment, easily awoke with verbal stimuli by this RN, pt head of bed sat up, lights turned on, and explained importance of assessment to pt.
[2020-11-16] MEDS: Ibuprofen 600 MG TABLET PO (19:30)
[2020-11-16] MEDS: traZODone HCL 100 MG TABLET PO (21:58)
[2020-11-17] VITALS (10 sets, daily range): BP systolic 96–160; BP diastolic 52–87; PULSE 78–104; RESP 18–50; TEMP 36.7–38.6; O2SAT 95–98
--- NOTE | 2020-11-17 00:33 | PC.NURSE ---
PT AMBULATORY TO BATHROOM, HOSPITAL CLOTHING CHANGED DUE TO WET WITH SWEAT.
[2020-11-17] MEDS: Acetaminophen 325 MG TABLET 975 MG PO (06:33)
[2020-11-17 06:40] LABS: Glucose, Whole Blood 192 mg/dL (60-115)
[2020-11-17 07:30] LABS: ABG Base Excess 6.1 mmol/L; ABG HCO3 29 mmol/L (22-26); ABG pCO2 37 mmHg (32-45); ABG pCO2 TC 40 mmHg (32-45); ABG pH 7.49 (7.35-7.45); ABG pH TC 7.47 (7.35-7.45); ABG pO2 91 mmHg (83-108); ABG pO2 TC 101 (83-108)
[2020-11-17 07:45] LABS: ABG Refer to POC result
[2020-11-17] MEDS: levoFLOXacin/D5W 500 MG/100 ML PIGGYBACK 100 MG IV (08:08)
--- NOTE | 2020-11-17 08:22 | PHA.MEDREC ---
Pharmacy Consult ? Medication Reconciliation Pharmacy has completed the medication reconciliation.
[2020-11-17 08:28] LABS: Basophils Percent Auto 0.1 % (0-2); Eosinophils Percent Auto 0.1 % (0-4); Hematocrit 37.3 % (42-52); Hemoglobin 12.2 g/dl (14.0-18.0); Imm Gran Abs Auto 0.08 X10*3/uL (0.00-0.03); Imm Gran Pct Auto 0.5 % (0.0-0.4); Lymphocytes Percent Auto 6.8 % (20-40); MANUAL DIFF FLAG SCAN; Mean Corpuscular HGB Conc 32.7 g/dl (31.0-36.0); Mean Corpuscular Hemoglobin 29.4 pg (27.0-33.0); Mean Corpuscular Volume 89.9 fL (80-98); Mean Platelet Volume 10.2 fL (9.4-12.4); Monocytes Absolute Auto 1.8 X10*3/uL (0.1-1.2); Monocytes Percent Auto 11.8 % (2-11); Neutrophils Absolute Auto 12.2 X10*3/uL (2.0-8.3); Neutrophils Percent Auto 80.7 % (45-73); Platelet Count 319 X10*3/uL (160-400); Red Blood Count 4.15 X10*6/uL (4.60-5.80); Red Cell Distribution Width 13.6 % (11.0-16.0); SCAN SMEAR FLAG 1; White Blood Count 15.2 X10*3/uL (4.8-10.8)
[2020-11-17 08:46] LABS: SLIDE REVIEW VERIFIED
[2020-11-17 08:53] LABS: Lactic Acid 1.1 mmol/L (0.5-2.0)
[2020-11-17] MEDS: Gabapentin 400 MG CAPSULE 800 MG PO ×3 (09:23→20:27)
[2020-11-17] MEDS: metFORMIN HCl 1,000 MG TABLET 1000 MG PO (09:23)
--- NOTE | 2020-11-17 09:23 | PC.NURSE ---
HOSPITALIST AT BEDSIDE
[2020-11-17] MEDS: Tamsulosin HCL 0.4 MG CAPSULE PO (09:24)
[2020-11-17] MEDS: Multivitamin TABLET 1 TAB PO (09:24)
[2020-11-17] MEDS: Atorvastatin Calcium 20 MG TABLET PO (09:24)
--- NOTE | 2020-11-17 09:56 | P.HPHOSP_ITS ---
History of Present Illness Date of Service: 11/17/20 Chief Complaint: SI This is a 45 yo M with a PMH as outlined below who presented to the emergency room on 11/14/2020 after calling 911 on himself (per initial ED reports, patient was stating that he was homicidal.). Initial plan was for crisis to evaluate him, however he has since started spiking fevers and now will be admitted to the hospital. Patient is seen in ED on 11/17 morning. He reports generalized body aches and pains. He reports alcohol and IV heroin use prior to hospitalization. He denies any current HI. Reports feeling depressed, but denies any active SI currently. He reports a non-productive cough. He denies any plueritic chest pain, sob. He reports feeling feverish. History if otherwise limited as the patient at this time is not interested in talking much. Review of Systems Review of Systems: ROS limited as patient not answering many questions does endorse fevers, generalized aches and pain, non-productive cough PMFSH Medical History Alcohol use Alcohol use disorder, severe, dependence Chronic pain Diverticulitis DM II (diabetes mellitus, type II), controlled High cholesterol (~10/11/20) HTN (hypertension) Marijuana use MDD (major depressive disorder), recurrent episode, severe Neuropathy Opiate dependence Opioid use disorder Opioid use disorder Stimulant use disorder Tobacco use disorder Urinary hesitancy Social History Household Members: None Housing: Homeless Do you presently have visiting nurse or other home services: No Unable to assess alcohol history related to: Refusing to respond Alcohol intake: current Alcohol intake frequency: 0-2 drinks per day Alcohol type: beer and hard liquor Patient Tobacco Use Status: Current everyday Tobacco user Tobacco use type: Cigarette Cigarette Packs Per Day: 1.5 Cigarettes Per Day: 30.0 Years Smoked: 10 e-Cigarette/Vaping Use: Never Used Second Hand Smoke Exposure: Yes Substance Use Type: Crack/Cocaine and Heroin Advance Directives: No service: No Sexual orientation: Did not discuss Meds Allergies Allergy/AdvReac Type Severity Reaction Status Date / Time No Known Allergies Allergy Verified 11/14/20 21:00 Active Medications: Current Medications Generic Name Dose Route Start Last Admin Trade Name Freq PRN Reason Stop Dose Admin Acetaminophen 650 mg 11/17/20 09:45 Acetaminophen 325 Mg Tablet PO Q6H PRN fever Atorvastatin Calcium 20 mg 11/15/20 09:00 11/17/20 09:24 Atorvastatin Calcium 20 Mg Tablet PO 20 mg DAILY [facility] Administration Buprenorphine/Naloxone 1 film 11/17/20 10:00 Buprenorphine/Naloxone 8/2 Mg Film SUBLINGUAL QPM [facility] Buprenorphine/Naloxone 2 film 11/17/20 09:50 Buprenorphine/Naloxone 8/2 Mg Film SUBLINGUAL DAILY [facility] Bupropion HCl 300 mg 11/17/20 09:55 Bupropion Hcl Xl 300 Mg Tab.Er.24h PO DAILY [facility] Enoxaparin Sodium 40 mg 11/17/20 10:00 Enoxaparin Sodium 40 Mg/0.4 Ml Syringe SUBCUT Q24H [facility] Gabapentin 800 mg 11/15/20 09:00 11/17/20 09:23 Gabapentin 400 Mg Capsule PO 800 mg TID [facility] Administration Vancomycin HCl 1,000 mg/ 270 mls @ 270 mls/hr 11/17/20 09:45 Sodium Chloride IV Q12H [facility] Lactated Ringer's 1,000 mls @ 100 mls/hr 11/17/20 09:45 Lr IVCONT .Q10H [facility] Vancomycin HCl 1,500 mg/ 500 mls @ 333.333 mls/hr 11/17/20 10:00 Sodium Chloride IV 11/17/20 11:29 ONCE ONE Insulin Glargine 50 unit 11/17/20 21:00 Insulin Glargine,Hum.Rec.Anlog 100 Unit/Ml 10 Ml Vial SUBCUT BEDTIME [facility] Insulin Human Lispro 0 unit 11/17/20 11:30 Insulin Lispro 100 Unit/Ml 3 Ml Vial SUBCUT QIDACHS [facility] Protocol Levofloxacin 500 mg 11/17/20 09:00 11/17/20 09:24 Levofloxacin 500 Mg Tablet PO Not Given DAILY [facility] Metformin HCl 1,000 mg 11/15/20 08:30 11/17/20 09:23 Metformin Hcl 1,000 Mg Tablet PO 1,000 mg BIDWM [facility] Administration Omeprazole 20 mg 11/17/20 10:00 Omeprazole 20 Mg Capsule.Dr PO DAILY [facility] Pharmacy Consult 1 each 11/15/20 00:18 Consult Rx Perform Med Rec MISCELLANE ONCE PRN Consult order Pharmacy Consult 1 each 11/17/20 07:03 Consult Rx Perform Med Rec MISCELLANE ONCE PRN Consult order Pharmacy Consult 1 each 11/17/20 09:43 Consult Rx Vancomycin Dosing MISCELLANE DAILY PRN Consult order Quetiapine Fumarate 100 mg 11/17/20 21:00 Quetiapine Fumarate 100 Mg Tablet PO BID [facility] Sertraline HCl 100 mg 11/17/20 10:00 Sertraline Hcl 100 Mg Tablet PO QAM [facility] Sodium Chloride 3 ml 11/17/20 16:00 0.9 % Sodium Chloride Flush 3 Ml Syringe IVFLUSH QSHIFT [facility] Tamsulosin HCl 0.4 mg 11/15/20 09:00 11/17/20 09:24 Tamsulosin Hcl 0.4 Mg Capsule PO 0.4 mg DAILY [facility] Administration Trazodone HCl 100 mg 11/15/20 21:00 11/16/20 21:58 Trazodone Hcl 100 Mg Tablet PO 100 mg BEDTIME [facility] Administration Home Medications Medication Instructions Recorded Confirmed Last Taken Type multivitamin (One Daily 1 tab PO QAM 10/02/20 11/17/20 11/15/20 History Multivitamin) atorvastatin 20 mg tablet 1 tab PO DAILY 11/15/20 11/17/20 11/15/20 History bupropion HCl 150 mg 24 hr tablet, 300 mg PO DAILY 11/15/20 11/17/20 11/15/20 History extended release quetiapine 100 mg tablet 100 mg PO BID 11/15/20 11/17/20 11/15/20 History buprenorphine 8 mg-naloxone 2 mg 1 film SUBLINGUAL QPM 11/17/20 11/17/20 Unknown History sublingual film buprenorphine 8 mg-naloxone 2 mg 2 film SUBLINGUAL DAILY 11/17/20 11/17/20 Unknown History sublingual film (Suboxone) docusate sodium 100 mg capsule 1 cap PO BID PRN 11/17/20 11/17/20 Unknown History insulin lispro 100 unit/mL 2 - 10 unit SUBCUT TIDAC 11/17/20 11/17/20 11/15/20 History subcutaneous solution (Humalog U-100 Insulin) nicotine 21 mg/24 hr daily 1 patch TOPICAL DAILY PRN 11/17/20 11/17/20 Unknown History transdermal patch Physical Exam Vital Signs and Narrative: Vital Signs: Last Vital Signs Temp 98.3 F 11/17/20 08:17 Pulse 84 11/17/20 08:17 Resp 20 11/17/20 08:17 BP 96/52 L 11/17/20 08:17 Pulse Ox 95 11/17/20 08:17 Body Mass Index 23.8 Const: Other: Constitutional - awake and alert, no acute distress Eyes - PERRLA, EOMI Cardiovascular - S1S2, RRR, No edema Respiratory - Normal lung expansion, Normal respiratory effort, No respiratory distress, CTA bilaterally Gastrointestinal - NT / ND; +BS; No rebound or guarding - No CVA tenderness Extremities - no calf tenderness bilaterally, no swelling Musculoskeletal - Normal inspection, normal ROM Skin - Warm/Dry, evidence of IV drug infection but no cellulitis Neurological - Alert & oriented x3, No focal deficit Results Labs CBC and Chem 7: 11/17/20 Unknown 11/17/20 10:06 Labs: Laboratory Results - last 24 hr 11/16/20 11/16/20 11/16/20 09:10 10:47 10:47 MCV MCH MCHC RDW Plt Count MPV Immature Gran % (Auto) Neut % (Auto) Lymph % (Auto) [place] % (Auto) Eos % (Auto) Baso % (Auto) Lymph # (Auto) [place] # (Auto) Eos # (Auto) Baso # (Auto) Abs Immat Gran (auto) Absolute Neuts (auto) Absolute Nucleated RBC Nucleated RBC % (auto) Smear Tech's Comments O2 Saturation ABG pH at Pt Temp ABG pH (Temp Correct) ABG pCO2 at Pt Temp ABG pCO2 (Temp Corrct ABG pO2 at Pt Temp ABG pO2 (Temp Correct ABG HCO3 ABG Base Excess (Actual) Anion Gap 15 Estim Creat Clear Calc 106.8 Estimated GFR > 60 POC Glucose Random Glucose 161 H D Lactic Acid Calcium 8.7 Total Bilirubin 1.2 H AST 44 H ALT 39 Alkaline Phosphatase 77 Total Protein 7.8 Albumin 3.9 Lipase < 4 L Urine Color Urine Appearance Urine pH Ur Specific [place] Urine Protein Urine Glucose (UA) Urine Ketones Urine Blood Urine Nitrite Ur Leukocyte Esterase Urine RBC Urine WBC Ur Squamous Epith Cells Urine Bacteria Respiratory Panel [place] See Note Adenovirus (Rapid PCR) Not Detected B.pert (TEM-PCR) Not Detected B.parapertussis DNA PCR Not Detected C. pneumoniae DNA (PCR) Not Detected Coronavirus (PCR) NEGATIVE Coronavirus OC43 (PCR) Not Detected Coronavirus HKU1 (PCR) Not Detected Coronavirus 229E (PCR) Not Detected Coronavirus NL63 (PCR) Not Detected Human Metapneumovir PCR Not Detected Influenza A (RT-PCR) Not Detected Influenza Type A (PCR) NEGATIVE Influenza B (RT-PCR) Not Detected Influenza Type B (PCR) NEGATIVE M. pneumoniae (PCR) Not Detected Parainfluenza 1 (PCR) Not Detected Parainfluenza 2 (PCR) Not Detected Parainfluenza 3 (PCR) Not Detected Parainfluenza 4 (PCR) Not Detected RSV (PCR) Not Detected RSV RNA Qual (PCR) NEGATIVE Entero/Rhino (PCR) Not Detected SARS-CoV-2 RNA (RT-PCR) Not Detected 11/16/20 11/17/20 11/17/20 13:37 06:36 07:24 MCV MCH MCHC RDW Plt Count MPV Immature Gran % (Auto) Neut % (Auto) Lymph % (Auto) [place] % (Auto) Eos % (Auto) Baso % (Auto) Lymph # (Auto) [place] # (Auto) Eos # (Auto) Baso # (Auto) Abs Immat Gran (auto) Absolute Neuts (auto) Absolute Nucleated RBC Nucleated RBC % (auto) Smear Tech's Comments O2 Saturation 97.0 ABG pH at Pt Temp 7.49 H ABG pH (Temp Correct) 7.47 H ABG pCO2 at Pt Temp 37 ABG pCO2 (Temp Corrct 40 ABG pO2 at Pt Temp 91 ABG pO2 (Temp Correct 101 ABG HCO3 29 H ABG Base Excess (Actual) 6.1 Anion Gap Estim Creat Clear Calc Estimated GFR POC Glucose 192 H Random Glucose Lactic Acid Calcium Total Bilirubin AST ALT Alkaline Phosphatase Total Protein Albumin Lipase Urine Color YELLOW Urine Appearance CLOUDY Urine pH 6.0 Ur Specific [place] 1.020 Urine Protein 2+ H Urine Glucose (UA) NEG Urine Ketones NEG Urine Blood 1+ H Urine Nitrite POS H Ur Leukocyte Esterase 2+ H Urine RBC 0-2 Urine WBC 50-75 H Ur Squamous Epith Cells 1+ Urine Bacteria 4+ Respiratory Panel [place] Adenovirus (Rapid PCR) B.pert (TEM-PCR) B.parapertussis DNA PCR C. pneumoniae DNA (PCR) Coronavirus (PCR) Coronavirus OC43 (PCR) Coronavirus HKU1 (PCR) Coronavirus 229E (PCR) Coronavirus NL63 (PCR) Human Metapneumovir PCR Influenza A (RT-PCR) Influenza Type A (PCR) Influenza B (RT-PCR) Influenza Type B (PCR) M. pneumoniae (PCR) Parainfluenza 1 (PCR) Parainfluenza 2 (PCR) Parainfluenza 3 (PCR) Parainfluenza 4 (PCR) RSV (PCR) RSV RNA Qual (PCR) Entero/Rhino (PCR) SARS-CoV-2 RNA (RT-PCR) 11/17/20 11/17/20 Unknown Unknown MCV 89.9 MCH 29.4 MCHC 32.7 RDW 13.6 Plt Count 319 MPV 10.2 Immature Gran % (Auto) 0.5 H Neut % (Auto) 80.7 H Lymph % (Auto) 6.8 L [place] % (Auto) 11.8 H Eos % (Auto) 0.1 Baso % (Auto) 0.1 Lymph # (Auto) 1.0 L [place] # (Auto) 1.8 H Eos # (Auto) 0.0 Baso # (Auto) 0.0 Abs Immat Gran (auto) 0.08 H Absolute Neuts (auto) 12.2 H Absolute Nucleated RBC 0.000 Nucleated RBC % (auto) 0.0 Smear Tech's Comments VERIFIED O2 Saturation ABG pH at Pt Temp ABG pH (Temp Correct) ABG pCO2 at Pt Temp ABG pCO2 (Temp Corrct ABG pO2 at Pt Temp ABG pO2 (Temp Correct ABG HCO3 ABG Base Excess (Actual) Anion Gap Estim Creat Clear Calc Estimated GFR POC Glucose Random Glucose Lactic Acid 1.1 Calcium Total Bilirubin AST ALT Alkaline Phosphatase Total Protein Albumin Lipase Urine Color Urine Appearance Urine pH Ur Specific [place] Urine Protein Urine Glucose (UA) Urine Ketones Urine Blood Urine Nitrite Ur Leukocyte Esterase Urine RBC Urine WBC Ur Squamous Epith Cells Urine Bacteria Respiratory Panel [place] Adenovirus (Rapid PCR) B.pert (TEM-PCR) B.parapertussis DNA PCR C. pneumoniae DNA (PCR) Coronavirus (PCR) Coronavirus OC43 (PCR) Coronavirus HKU1 (PCR) Coronavirus 229E (PCR) Coronavirus NL63 (PCR) Human Metapneumovir PCR Influenza A (RT-PCR) Influenza Type A (PCR) Influenza B (RT-PCR) Influenza Type B (PCR) M. pneumoniae (PCR) Parainfluenza 1 (PCR) Parainfluenza 2 (PCR) Parainfluenza 3 (PCR) Parainfluenza 4 (PCR) RSV (PCR) RSV RNA Qual (PCR) Entero/Rhino (PCR) SARS-CoV-2 RNA (RT-PCR) Assessment and Plan (1) Fever: Status: Acute This is a 45 yo M with a PMH of DM, HTN, prior COVID infection, alcohol and IV heroin use, Mood disorder NOS, Psychotic disorder NOS who presented to [facility] ED on 11/17/20 after calling 911 on himself. He has been spiking temperatures for the last 24 hours and now will be admitted for further treatment. 1. Fevers possibly due to UTI, but given his history of IVDU -- will need to rule out bacteremia. If blood cx positive, will get ID involved and check echo continue levaquin, start vancomycin 2. UTI levaqin for now growing GNB 3. DM lantus + sliding scale 4. Chronic Opiate dependence suboxone 5. Mood continue baseline meds will need BHN once medically cleared Full Code DVT pptx, Lovenox Quality Stroke Does the patient have a stroke diagnosis?: No VTE Prior VTE?: No VTE Risk Level:: Medical - moderate - high VTE Device Contraindication: Treatment Not Indicated VTE Drug Contraindication: N/A - Med Ordered
[2020-11-17 10:39] LABS: Anion Gap 14 (12-20); Blood Urea Nitrogen 11 mg/dL (9-16); Calcium 7.6 mg/dL (8.4-10.2); Carbon Dioxide 25 mmol/L (22-29); Chloride 102 mmol/L (96-108); Creatinine Clr Calc Pharmacy 127.7; Estimated Glomerular Filt Rate > 60; Glucose Random 135 mg/dL (60-115); Potassium 3.6 mmol/L (3.3-5.1); Sodium 137 mmol/L (135-145)
--- NOTE | 2020-11-17 10:46 | PC.NURSE ---
[facility] called to say they were denying patient for placement
[2020-11-17] MEDS: vancomycin HCL 1,500 MG in 0.9 % Sodium Chloride 500 ML 333.33 MG IV (11:01)
[2020-11-17] MEDS: Omeprazole 20 MG CAPSULE.DR PO (11:06)
[2020-11-17] MEDS: Sertraline HCL 100 MG TABLET PO (11:06)
[2020-11-17] MEDS: Enoxaparin Sodium 40 MG/0.4 ML SYRINGE SUBCUT (11:06)
[2020-11-17] MEDS: buPROPion HCl XL 300 MG TAB.ER.24H PO (11:06)
[2020-11-17] MEDS: Buprenorphine/Naloxone 8/2 mg FILM 2 FILM SUBLINGUAL (11:11)
[2020-11-17] MEDS: Lactated Ringers 1,000 ML 100 ML IVCONT ×2 (11:15→23:39)
[2020-11-17 11:20] LABS: Glucose, Whole Blood 93 mg/dL (60-115)
--- NOTE | 2020-11-17 13:00 | PC.NURSE ---
Patient tolerated lunch well. Pt voices no complaints currently. pt given additional water to drink
--- NOTE | 2020-11-17 16:00 | PC.NURSE ---
Patient resting quietly in bed with eyes closed in no distress.
--- NOTE | 2020-11-17 16:47 | PC.NURSE ---
Report given to BARBARA Epperson. Pt is currently resting quietly in bed in no distress
[2020-11-17 18:07] LABS: Glucose, Whole Blood 95 mg/dL (60-115)
[2020-11-17] MEDS: Buprenorphine/Naloxone 2/0.5mg FILM 1 FILM SUBLINGUAL (18:29)
--- NOTE | 2020-11-17 19:40 | PC.NURSE ---
Pt admitted to [facility] [place] [facility] from ED at approximately 1800. Pt is wrapped in blankets, with eyes closed, appears fatigued and reported being way too tired to complete admission risk assessment at this time. Will attempt to completed this assessment at next opportunity.
[2020-11-17 19:53] LABS: Glucose, Whole Blood 100 mg/dL (60-115)
[2020-11-17] MEDS: traZODone HCL 100 MG TABLET PO (20:27)
[2020-11-17] MEDS: vancomycin HCL 1,000 MG in 0.9 % Sodium Chloride 250 ML 270 MG IV (20:28)
[2020-11-17] MEDS: Buprenorphine/Naloxone 8/2 mg FILM 1 FILM SUBLINGUAL (20:28)
[2020-11-17] MEDS: 0.9 % Sodium Chloride Flush 3 ML SYRINGE IVFLUSH (20:28)
[2020-11-17] MEDS: QUEtiapine Fumarate 100 MG TABLET PO (20:28)
[2020-11-18 04:22] VITALS: BP 119/66; PULSE 68; RESP 20; TEMP 37; O2SAT 98
[2020-11-18 07:30] VITALS: BP 136/73; PULSE 79; RESP 18; TEMP 37.7; O2SAT 96
[2020-11-18 07:30] LABS: Glucose, Whole Blood 83 mg/dL (60-115)
[2020-11-18] MEDS: Gabapentin 400 MG CAPSULE 800 MG PO ×3 (09:20→20:10)
[2020-11-18] MEDS: Omeprazole 20 MG CAPSULE.DR PO (09:20)
[2020-11-18] MEDS: buPROPion HCl XL 300 MG TAB.ER.24H PO (09:20)
[2020-11-18] MEDS: Tamsulosin HCL 0.4 MG CAPSULE PO (09:20)
[2020-11-18] MEDS: levoFLOXacin 500 MG TABLET PO (09:20)
[2020-11-18] MEDS: QUEtiapine Fumarate 100 MG TABLET PO ×2 (09:20→20:10)
[2020-11-18] MEDS: Sertraline HCL 100 MG TABLET PO (09:20)
[2020-11-18] MEDS: Enoxaparin Sodium 40 MG/0.4 ML SYRINGE SUBCUT (09:21)
[2020-11-18] MEDS: Lactated Ringers 1,000 ML 100 ML IVCONT (09:21)
[2020-11-18] MEDS: Atorvastatin Calcium 20 MG TABLET PO (09:21)
[2020-11-18] MEDS: vancomycin HCL 1,000 MG in 0.9 % Sodium Chloride 250 ML 270 MG IV ×2 (09:21→22:03)
[2020-11-18] MEDS: Buprenorphine/Naloxone 8/2 mg FILM 2 FILM SUBLINGUAL (09:21)
--- NOTE | 2020-11-18 10:55 | P.CDIC_ITS ---
CDI Concurrent Query Service Date: 11/18/20 Documentation Clarification: Please clarify if you are treating a proba ble/suspected/likely or confirmed: -Sepsis, POA -Systemic manifestations of infection, with 2 or more SIRS criteria which include: -Fever > 100.4F or hypothermia < 96.8 F -Leukocytosis - WBC > 12,000 or leukopenia, WBC < 4,000 or > 10% bands -Tachycardia > 90 beats/minute -Tachypnea - RR > 20 breaths/minute or PaCO2 < 32mmHg -(Source: Merck Manual 2013) -Indicate the known or suspected organism -Indicate the known or suspected underlying infection, such as UTI -Indicate if a suspected bacterial infection of unknown source - No Sepsis Provider Response: Sepsis PLEASE DO NOT DELETE/MODIFY EXISTING CONTENT Additional information is needed in order to code to the highest accuracy and appropriate Severity of Illness (SOI). Please clarify the information noted below in your progress notes and discharge summary. Risk Factors/Clinical Indicators/Treatments WBC 13.9 T 101.5, P 104, R 50 LA 1.1 IV antibiotic UTI per H&P CDS: Cassy Hilton RN Contact Number: [phone] Please Review the information above and exercise your independent professional judgment in responding to the query. If you concur, pleas document in the PROGRESS NOTES and DISCHARGE SUMMARY. If you do not agree with the query, please document in the query above. THIS QUERY IS PART OF THE PERMANENT MEDICAL RECORD
[2020-11-18 11:01] VITALS: BP 144/84; PULSE 73; RESP 18; TEMP 37; O2SAT 98
[2020-11-18 11:23] LABS: Glucose, Whole Blood 94 mg/dL (60-115)
--- NOTE | 2020-11-18 11:42 | MHC.CLN ---
PT'S PREVIOUS WT HX REVEAL 194# (06/24/20) PT TRIGGERS FOR 15% SIGNIFICANT WT LOSS X 4 MONTHS PT REMAINS WITHIN IBW RANGE DIET RX: REGULAR-APPROPRIATE MONITOR PO INTAKE CLOSELY IF PO INTAKE POOR; RECOMMEND ADDING ENSURE BID FOLLOWING
--- NOTE | 2020-11-18 12:55 | HO.PM.IMPN ---
Subjective Subjective Date of Service: 11/18/20 Interval History: F/u on fever. SI/HI Review of Systems Gen: no fever Resp: no sob, no cough CV: no chest, no FREDERICK, no leg edema GI: No n/v, no abd pain Neuro: No confusion Psycg: SI Physical Exam Vital Signs: Vital Signs: Last Vital Signs Temp 98.6 F 11/18/20 11:01 Pulse 73 11/18/20 11:01 Resp 18 11/18/20 11:01 BP 144/84 H 11/18/20 11:01 Pulse Ox 98 11/18/20 11:01 Body Mass Index 23.8 General: AO X 3, no acute distress Resp: CTA bilateral CVS: S1,S2,RRR GI: +BS, NT, no distention Skin: No rash Neuro: motor grossly intact Psych: appropriate affect Objective Data Current Medications Generic Name Dose Route Start Last Admin Trade Name Freq PRN Reason Stop Dose Admin Acetaminophen 650 mg 11/17/20 09:45 Acetaminophen 325 Mg Tablet PO Q6H PRN fever Atorvastatin Calcium 20 mg 11/15/20 09:00 11/18/20 09:21 Atorvastatin Calcium 20 Mg Tablet PO 20 mg DAILY [facility] Administration Buprenorphine/Naloxone 1 film 11/17/20 21:00 11/17/20 20:28 Buprenorphine/Naloxone 8/2 Mg Film SUBLINGUAL 1 film BEDTIME [facility] Administration Buprenorphine/Naloxone 2 film 11/17/20 09:50 11/18/20 09:21 Buprenorphine/Naloxone 8/2 Mg Film SUBLINGUAL 2 film DAILY [facility] Administration Bupropion HCl 300 mg 11/17/20 09:55 11/18/20 09:20 Bupropion Hcl Xl 300 Mg Tab.Er.24h PO 300 mg DAILY [facility] Administration Enoxaparin Sodium 40 mg 11/17/20 10:00 11/18/20 09:21 Enoxaparin Sodium 40 Mg/0.4 Ml Syringe SUBCUT 40 mg Q24H [facility] Administration Gabapentin 800 mg 11/15/20 09:00 11/18/20 09:20 Gabapentin 400 Mg Capsule PO 800 mg TID [facility] Administration Vancomycin HCl 1,000 mg/ 270 mls @ 270 mls/hr 11/17/20 22:00 11/18/20 12:43 Sodium Chloride IV Infused Q12H [facility] Infusion Lactated Ringer's 1,000 mls @ 100 mls/hr 11/17/20 09:45 11/18/20 09:21 Lr IVCONT 100 mls/hr .Q10H [facility] Administration Insulin Glargine 50 unit 11/17/20 21:00 11/17/20 20:28 Insulin Glargine,Hum.Rec.Anlog 100 Unit/Ml 10 Ml Vial SUBCUT Not Given BEDTIME [facility] Insulin Human Lispro 0 unit 11/17/20 11:30 11/18/20 12:43 Insulin Lispro 100 Unit/Ml 3 Ml Vial SUBCUT Not Given QIDACHS [facility] Protocol Levofloxacin 500 mg 11/17/20 09:00 11/18/20 09:20 Levofloxacin 500 Mg Tablet PO 500 mg DAILY [facility] Administration Omeprazole 20 mg 11/17/20 10:00 11/18/20 09:20 Omeprazole 20 Mg Capsule.Dr PO 20 mg DAILY [facility] Administration Pharmacy Consult 1 each 11/15/20 00:18 Consult Rx Perform Med Rec MISCELLANE ONCE PRN Consult order Pharmacy Consult 1 each 11/17/20 07:03 Consult Rx Perform Med Rec MISCELLANE ONCE PRN Consult order Pharmacy Consult 1 each 11/17/20 09:43 Consult Rx Vancomycin Dosing MISCELLANE DAILY PRN Consult order Quetiapine Fumarate 100 mg 11/17/20 21:00 11/18/20 09:20 Quetiapine Fumarate 100 Mg Tablet PO 100 mg BID [facility] Administration Sertraline HCl 100 mg 11/17/20 10:00 11/18/20 09:20 Sertraline Hcl 100 Mg Tablet PO 100 mg DAILY [facility] Administration Sodium Chloride 3 ml 11/17/20 16:00 11/18/20 09:21 0.9 % Sodium Chloride Flush 3 Ml Syringe IVFLUSH Not Given QSHIFT [facility] Tamsulosin HCl 0.4 mg 11/15/20 09:00 11/18/20 09:20 Tamsulosin Hcl 0.4 Mg Capsule PO 0.4 mg DAILY [facility] Administration Trazodone HCl 100 mg 11/15/20 21:00 11/17/20 20:27 Trazodone Hcl 100 Mg Tablet PO 100 mg BEDTIME [facility] Administration Labs CBC & Chem 7: 11/17/20 Unknown 11/17/20 10:06 Labs: Laboratory Results - last 24 hr 11/15/20 11/16/20 11/17/20 01:16 09:10 18:04 WBC 13.9 H 17.2 H POC Glucose 95 11/17/20 11/17/20 11/18/20 19:48 Unknown 07:26 WBC 15.2 H POC Glucose 100 83 11/18/20 11:00 WBC POC Glucose 94 Microbiology Microbiology Results: Microbiology 11/17/20 10:06 Blood Culture - Preliminary Blood - Venous No growth after 24 hours. 11/16/20 09:11 Blood Culture - Preliminary Blood - Venous No growth after 48 hours. 11/17/20 Unknown Blood Culture - Preliminary Blood - Venous No growth after 24 hours. 11/16/20 09:10 Blood Culture - Final Blood - Venous Coag negative Staphylococcus 11/16/20 Unknown Urine Culture - Final Urine clean catch - Urine wheeler top Escherichia coli Assessment and Plan (1) Fever: Status: Acute (2) Opiate dependence: Status: Chronic (3) MDD (major depressive disorder), recurrent episode, severe: Status: Chronic Assessment and Plan: 45 yo M with a PMH of DM, HTN, prior COVID infection, alcohol and IV heroin use, Mood disorder NOS, Psychotic disorder NOS who presented to [facility] [place] [facility] ED on 11/17/20 after calling 911 on himself. He has been spiking temperatures for the last 24 hours and now will be admitted for further treatment. 1. Fevers, Sepsis possibly due to UTI, but given his history of IVDU -- will need to rule out bacteremia. If blood cx positive, will get ID involved and check echo continue levaquin E. coli, start vancomycin. 2. UTI, d/t E.coli, sensitive to UTI 3. DM lantus + sliding scale 4. Chronic Opiate dependence suboxone 5. MoodS/SI--continue meds, should have KAY woo consult when medicall ready, addiction consult Quality Stroke Does the patient have a stroke diagnosis?: No VTE Prior VTE?: No VTE Risk Level:: Medical - moderate - high VTE Device Contraindication: Treatment Not Indicated VTE Drug Contraindication: N/A - Med Ordered
--- NOTE | 2020-11-18 13:08 | MHC.CM.PN ---
Addendum entered by Vernell Perez 11/18/20 13:53: CM MET WITH PT WHO ANSWERS I DONT KNOW TO MOST QUESTIONS. CM IS ABLE TO CONFIRM PT IS CURRENTLY HOMELESS. PT DOES HAVE A PCP, IKE CARNEY. PT WAS ASSESSED BY [facility] BUT REPORTS HE IS UNSURE WHAT THEY ARE RECOMMENDING. PT REPORTS HE IS HOPEFUL THAT THEY WILL RECOMMEND IPLOC. CM MET WITH PTS NURSE WHO REPORTS SHE WAS INFORMED [facility] IS RECOMMENDING [facility]. CURRENT DC PLAN IS INPATIENT PSYCH ONCE MEDICALLY CLEARED. Original Note: CM ATTEMPTED TO MEET WITH PT WHO WAS BEING EVALUATED BY [facility] [employer] TEAM LEAD. CM WILL REVISIT
[2020-11-18] MEDS: Acetaminophen 325 MG TABLET 650 MG PO ×2 (14:26→23:35)
[2020-11-18 15:13] VITALS: BP 155/88; PULSE 65; RESP 19; TEMP 36.8; O2SAT 98
[2020-11-18 15:47] LABS: Glucose, Whole Blood 97 mg/dL (60-115)
[2020-11-18] MEDS: 0.9 % Sodium Chloride Flush 3 ML SYRINGE IVFLUSH ×2 (17:35→23:37)
[2020-11-18 19:47] VITALS: BP 160/90; PULSE 66; RESP 19; TEMP 36.9; O2SAT 97
[2020-11-18 20:04] LABS: Glucose, Whole Blood 173 mg/dL (60-115)
[2020-11-18] MEDS: Insulin Lispro 100 UNIT/ML 3 ML VIAL SUBCUT (20:09)
[2020-11-18] MEDS: traZODone HCL 100 MG TABLET PO (20:10)
[2020-11-18] MEDS: Buprenorphine/Naloxone 8/2 mg FILM 1 FILM SUBLINGUAL (20:10)
--- NOTE | 2020-11-18 22:13 | PC.NURSE ---
Addendum entered by Laverne York RN 11/18/20 23:42: Vancomycin trough came back low at 3.4 MD made aware Original Note: Lab contacted this RN that the vancomycin trough will be sent to [facility], the analyzer is down. It has been picked up and will take hours to come back. Patient has a scheduled vancomycin 1,[address] mg dose for [address]. [address] Yancey was notified about the trough being sent to [facility] and will take hours to come back. Per , ok to administer 2200 vancomycin dose.
[2020-11-18 22:32] LABS: Vancomycin Trough 3.4 mcg/mL (10.0-20.0)
[2020-11-18] MEDS: LORazepam 0.5 MG TABLET PO (23:33)
[2020-11-18 23:34] VITALS: BP 176/90; PULSE 78; RESP 18; TEMP 38.7; O2SAT 97
--- NOTE | 2020-11-18 23:43 | PC.NURSE ---
Addendum entered by Laverne York RN 11/19/20 07:54: 0100; ordered extra dose of vancomycin 1,000 mg. This RN spoke to remote pharmacy, verified ok to give dose. also spoke to remote pharmacy. Addendum entered by Laverne York RN 11/19/20 03:35: 0000; ordered lactic acid and blood cultures 0130; rechecked oral temp 99.1 Original Note: Patient has an oral temp of 101.6 PRN tylenol administered. BP elevated at 176/90, hr 78. Dr. Yancey made aware.
[2020-11-19] VITALS (8 sets, daily range): BP systolic 134–180; BP diastolic 73–104; PULSE 56–84; RESP 18–20; TEMP 36.4–37.6; O2SAT 97–98
[2020-11-19] MEDS: vancomycin HCL 1,000 MG in 0.9 % Sodium Chloride 250 ML 270 MG IV ×2 (01:51→10:00)
[2020-11-19 07:18] LABS: Glucose, Whole Blood 127 mg/dL (60-115)
[2020-11-19] MEDS: 0.9 % Sodium Chloride Flush 3 ML SYRINGE IVFLUSH ×3 (09:54→20:53)
[2020-11-19] MEDS: Omeprazole 20 MG CAPSULE.DR PO (09:55)
[2020-11-19] MEDS: QUEtiapine Fumarate 100 MG TABLET PO ×2 (09:55→20:53)
[2020-11-19] MEDS: buPROPion HCl XL 300 MG TAB.ER.24H PO (09:55)
[2020-11-19] MEDS: levoFLOXacin 500 MG TABLET PO (09:55)
[2020-11-19] MEDS: Atorvastatin Calcium 20 MG TABLET PO (09:55)
[2020-11-19] MEDS: Tamsulosin HCL 0.4 MG CAPSULE PO (09:55)
[2020-11-19] MEDS: Gabapentin 400 MG CAPSULE 800 MG PO ×3 (09:55→20:53)
[2020-11-19] MEDS: Sertraline HCL 100 MG TABLET PO (09:55)
[2020-11-19] MEDS: Enoxaparin Sodium 40 MG/0.4 ML SYRINGE SUBCUT (09:55)
[2020-11-19] MEDS: Buprenorphine/Naloxone 8/2 mg FILM 2 FILM SUBLINGUAL (09:56)
[2020-11-19 11:10] LABS: Glucose, Whole Blood 131 mg/dL (60-115)
[2020-11-19 11:47] LABS: Hematocrit 34.7 % (42-52); Hemoglobin 11.5 g/dl (14.0-18.0); Mean Corpuscular HGB Conc 33.1 g/dl (31.0-36.0); Mean Corpuscular Hemoglobin 29.3 pg (27.0-33.0); Mean Corpuscular Volume 88.5 fL (80-98); Mean Platelet Volume 10.3 fL (9.4-12.4); Platelet Count 286 X10*3/uL (160-400); Red Blood Count 3.92 X10*6/uL (4.60-5.80); Red Cell Distribution Width 13.6 % (11.0-16.0); White Blood Count 6.1 X10*3/uL (4.8-10.8)
--- NOTE | 2020-11-19 12:22 | MHC.CLN ---
F/U PO INTAKE 100% X 2 MEALS CONTINUE TO MONITOR PO INTAKE CLOSELY
--- NOTE | 2020-11-19 12:26 | MHC.CM.PN ---
Per ROUNDS discussion, Patient is medically cleared for dc; plan is inpatient Psych facility. CM awaits word from [facility] on Psych bed availability. CM will follow.
[2020-11-19 16:34] LABS: Glucose, Whole Blood 95 mg/dL (60-115)
--- NOTE | 2020-11-19 16:39 | HO.PM.IMPN ---
Subjective Subjective Date of Service: 11/19/20 Interval History: F/u on fever. still with SI, fever of 101 overnight Review of Systems Gen: no fever Resp: no sob, no cough CV: no chest, no FREDERICK, no leg edema GI: No n/v, no abd pain Neuro: No confusion Psycg: SI Physical Exam Vital Signs: Vital Signs: Last Vital Signs Temp 98.1 F 11/19/20 15:51 Pulse 56 11/19/20 15:51 Resp 19 11/19/20 15:51 BP 180/104 H 11/19/20 15:51 Pulse Ox 98 11/19/20 15:51 Body Mass Index 23.8 Const: Other: Constitutional - awake and alert, no acute distress Eyes - PERRLA, EOMI Cardiovascular - S1S2, RRR, No edema Respiratory - Normal lung expansion, Normal respiratory effort, No respiratory distress, CTA bilaterally Gastrointestinal - NT / ND; +BS; No rebound or guarding - No CVA tenderness Extremities - no calf tenderness bilaterally, no swelling Musculoskeletal - Normal inspection, normal ROM Skin - Warm/Dry, evidence of IV drug infection but no cellulitis Neurological - Alert & oriented x3, No focal deficit Objective Data Current Medications Generic Name Dose Route Start Last Admin Trade Name Freq PRN Reason Stop Dose Admin Acetaminophen 650 mg 11/17/20 09:45 11/18/20 23:35 Acetaminophen 325 Mg Tablet PO 650 mg Q6H PRN Administration fever Atorvastatin Calcium 20 mg 11/15/20 09:00 11/19/20 09:55 Atorvastatin Calcium 20 Mg Tablet PO 20 mg DAILY SHABBIR Administration Buprenorphine/Naloxone 1 film 11/17/20 21:00 11/18/20 20:10 Buprenorphine/Naloxone 8/2 Mg Film SUBLINGUAL 1 film BEDTIME SHABBIR Administration Buprenorphine/Naloxone 2 film 11/17/20 09:50 11/19/20 09:56 Buprenorphine/Naloxone 8/2 Mg Film SUBLINGUAL 2 film DAILY SHABBIR Administration Bupropion HCl 300 mg 11/17/20 09:55 11/19/20 09:55 Bupropion Hcl Xl 300 Mg Tab.Er.24h PO 300 mg DAILY SHABBIR Administration Enoxaparin Sodium 40 mg 11/17/20 10:00 11/19/20 09:55 Enoxaparin Sodium 40 Mg/0.4 Ml Syringe SUBCUT 40 mg Q24H SHABBIR Administration Gabapentin 800 mg 11/15/20 09:00 11/19/20 15:45 Gabapentin 400 Mg Capsule PO 800 mg TID [facility] Administration Vancomycin HCl 1,000 mg/ 270 mls @ 270 mls/hr 11/19/20 10:00 11/19/20 11:11 Sodium Chloride IV Infused Q8H SHABBIR Infusion Insulin Glargine 50 unit 11/17/20 21:00 11/18/20 20:11 Insulin Glargine,Hum.Rec.Anlog 100 Unit/Ml 10 Ml Vial SUBCUT Not Given BEDTIME [facility] Insulin Human Lispro 0 unit 11/17/20 11:30 11/19/20 16:39 Insulin Lispro 100 Unit/Ml 3 Ml Vial SUBCUT Not Given QIDACHS [facility] Protocol Levofloxacin 500 mg 11/17/20 09:00 11/19/20 09:55 Levofloxacin 500 Mg Tablet PO 500 mg DAILY SHABBIR Administration Omeprazole 20 mg 11/17/20 10:00 11/19/20 09:55 Omeprazole 20 Mg Capsule. PO 20 mg DAILY SHABBIR Administration Pharmacy Consult 1 each 11/15/20 00:18 Consult Rx Perform Med Rec MISCELLANE ONCE PRN Consult order Pharmacy Consult 1 each 11/17/20 07:03 Consult Rx Perform Med Rec MISCELLANE ONCE PRN Consult order Pharmacy Consult 1 each 11/17/20 09:43 Consult Rx Vancomycin Dosing MISCELLANE DAILY PRN Consult order Pharmacy Consult 1 each 11/19/20 00:15 Consult Rx Vancomycin Dosing MISCELLANE DAILY PRN Consult order Pharmacy Consult 1 each 11/19/20 01:38 Consult Rx Vancomycin Dosing MISCELLANE DAILY PRN Consult order Quetiapine Fumarate 100 mg 11/17/20 21:00 11/19/20 09:55 Quetiapine Fumarate 100 Mg Tablet PO 100 mg BID SHABBIR Administration Sertraline HCl 100 mg 11/17/20 10:00 11/19/20 09:55 Sertraline Hcl 100 Mg Tablet PO 100 mg DAILY SHABBIR Administration Sodium Chloride 3 ml 11/17/20 16:00 11/19/20 15:45 0.9 % Sodium Chloride Flush 3 Ml Syringe IVFLUSH 3 ml QSHIFT SHABBIR Administration Tamsulosin HCl 0.4 mg 11/15/20 09:00 11/19/20 09:55 Tamsulosin Hcl 0.4 Mg Capsule PO 0.4 mg DAILY SHABBIR Administration Trazodone HCl 100 mg 11/15/20 21:00 11/18/20 20:10 Trazodone Hcl 100 Mg Tablet PO 100 mg BEDTIME SHABBIR Administration Labs CBC & Chem 7: 11/19/20 11:39 11/17/20 10:06 Labs: Laboratory Results - last 24 hr 11/18/20 11/18/20 11/19/20 20:00 20:56 00:18 MCV MCH MCHC RDW Plt Count MPV Absolute Nucleated RBC Nucleated RBC % (auto) POC Glucose 173 H Lactic Acid 2.0 Vancomycin Trough 3.4 L 11/19/20 11/19/20 11/19/20 07:03 10:52 11:39 MCV 88.5 MCH 29.3 MCHC 33.1 RDW 13.6 Plt Count 286 MPV 10.3 Absolute Nucleated RBC 0.000 Nucleated RBC % (auto) 0.0 POC Glucose 127 H 131 H Lactic Acid Vancomycin Trough 11/19/20 16:30 MCV MCH MCHC RDW Plt Count MPV Absolute Nucleated RBC Nucleated RBC % (auto) POC Glucose 95 Lactic Acid Vancomycin Trough Microbiology Microbiology Results: Microbiology 11/17/20 10:06 Blood Culture - Preliminary Blood - Venous No growth after 48 hours. 11/17/20 Unknown Blood Culture - Preliminary Blood - Venous No growth after 48 hours. Assessment and Plan (1) Opiate dependence: Status: Chronic (2) Fever: Status: Acute Assessment and Plan: 45 yo M with a PMH of DM, HTN, prior COVID infection, alcohol and IV heroin use, Mood disorder NOS, Psychotic disorder NOS who presented to [facility] on 11/17/20 after calling 911 on himself. He has been spiking temperatures for the last 24 hours and now will be admitted for further treatment. 1. Fevers, Sepsis possibly due to UTI, but given his history of IVDU -- will need to rule out bacteremia. If blood cx positive, will get ID involved and check echo continue levaquin E. coli. BC negative, dc vanco 2. UTI, d/t E.coli, sensitive to UTI 3. DM lantus + sliding scale 4. Chronic Opiate dependence suboxone 5. MoodS/SI--continue meds, should have sitter, BHN consult when medicall ready, addiction consult Quality Stroke Does the patient have a stroke diagnosis?: No VTE Prior VTE?: No VTE Risk Level:: Medical - moderate - high VTE Device Contraindication: Treatment Not Indicated VTE Drug Contraindication: N/A - Med Ordered
[2020-11-19 20:44] LABS: Glucose, Whole Blood 122 mg/dL (60-115)
[2020-11-19] MEDS: traZODone HCL 100 MG TABLET PO (20:53)
[2020-11-19] MEDS: Buprenorphine/Naloxone 8/2 mg FILM 1 FILM SUBLINGUAL (20:53)
[2020-11-20 07:24] LABS: Glucose, Whole Blood 89 mg/dL (60-115)
[2020-11-20 07:59] VITALS: BP 161/93; PULSE 62; RESP 19; TEMP 36.9; O2SAT 98
[2020-11-20] MEDS: Sertraline HCL 100 MG TABLET PO (08:54)
[2020-11-20] MEDS: QUEtiapine Fumarate 100 MG TABLET PO (08:54)
[2020-11-20] MEDS: Buprenorphine/Naloxone 8/2 mg FILM 2 FILM SUBLINGUAL (08:54)
[2020-11-20] MEDS: buPROPion HCl XL 300 MG TAB.ER.24H PO (08:55)
[2020-11-20] MEDS: levoFLOXacin 500 MG TABLET PO (08:55)
[2020-11-20] MEDS: Omeprazole 20 MG CAPSULE.DR PO (08:55)
[2020-11-20] MEDS: 0.9 % Sodium Chloride Flush 3 ML SYRINGE IVFLUSH (08:55)
[2020-11-20] MEDS: Atorvastatin Calcium 20 MG TABLET PO (08:55)
[2020-11-20] MEDS: Tamsulosin HCL 0.4 MG CAPSULE PO (08:55)
[2020-11-20] MEDS: Gabapentin 400 MG CAPSULE 800 MG PO ×2 (08:55→16:43)
[2020-11-20] MEDS: Acetaminophen 325 MG TABLET 650 MG PO ×2 (09:00→16:43)
[2020-11-20] MEDS: Enoxaparin Sodium 40 MG/0.4 ML SYRINGE SUBCUT (09:03)
--- NOTE | 2020-11-20 09:21 | P.PNIM_ITS ---
Subjective Subjective Date of Service: 11/20/20 Interval History: F/u on fever. still with SI, fever of 101 overnight Review of Systems Gen: no fever Resp: no sob, no cough CV: no chest, no FREDERICK, no leg edema GI: No n/v, no abd pain Neuro: No confusion Psycg: SI Physical Exam Vital Signs: Vital Signs: Last Vital Signs Temp 98.5 F 11/20/20 07:59 Pulse 62 11/20/20 07:59 Resp 19 11/20/20 07:59 BP 161/93 H 11/20/20 07:59 Pulse Ox 98 11/20/20 07:59 Body Mass Index 23.8 Const: Other: Constitutional - awake and alert, no acute distress Eyes - PERRLA, EOMI Cardiovascular - S1S2, RRR, No edema Respiratory - Normal lung expansion, Normal respiratory effort, No respiratory distress, CTA bilaterally Gastrointestinal - NT / ND; +BS; No rebound or guarding - No CVA tenderness Extremities - no calf tenderness bilaterally, no swelling Musculoskeletal - Normal inspection, normal ROM Skin - Warm/Dry, evidence of IV drug infection but no cellulitis Neurological - Alert & oriented x3, No focal deficit Objective Data Current Medications Generic Name Dose Route Start Last Admin Trade Name Freq PRN Reason Stop Dose Admin Acetaminophen 650 mg 11/17/20 09:45 11/20/20 09:00 Acetaminophen 325 Mg Tablet PO 650 mg Q6H PRN Administration fever Atorvastatin Calcium 20 mg 11/15/20 09:00 11/20/20 08:55 Atorvastatin Calcium 20 Mg Tablet PO 20 mg DAILY SHABBIR Administration Buprenorphine/Naloxone 1 film 11/17/20 21:00 11/19/20 20:53 Buprenorphine/Naloxone 8/2 Mg Film SUBLINGUAL 1 film BEDTIME SHABBIR Administration Buprenorphine/Naloxone 2 film 11/17/20 09:50 11/20/20 08:54 Buprenorphine/Naloxone 8/2 Mg Film SUBLINGUAL 2 film DAILY SHABBIR Administration Bupropion HCl 300 mg 11/17/20 09:55 11/20/20 08:55 Bupropion Hcl Xl 300 Mg Tab.Er.24h PO 300 mg DAILY SHABBIR Administration Enoxaparin Sodium 40 mg 11/17/20 10:00 11/20/20 09:03 Enoxaparin Sodium 40 Mg/0.4 Ml Syringe SUBCUT 40 mg Q24H SHABBIR Administration Gabapentin 800 mg 11/15/20 09:00 11/20/20 08:55 Gabapentin 400 Mg Capsule PO 800 mg TID SHABBIR Administration Insulin Glargine 50 unit 11/17/20 21:00 11/19/20 21:59 Insulin Glargine,Hum.Rec.Anlog 100 Unit/Ml 10 Ml Vial SUBCUT Not Given BEDTIME [facility] Insulin Human Lispro 0 unit 11/17/20 11:30 11/20/20 07:50 Insulin Lispro 100 Unit/Ml 3 Ml Vial SUBCUT Not Given QIDACHS [facility] Protocol Levofloxacin 500 mg 11/17/20 09:00 11/20/20 08:55 Levofloxacin 500 Mg Tablet PO 500 mg DAILY SHABBIR Administration Omeprazole 20 mg 11/17/20 10:00 11/20/20 08:55 Omeprazole 20 Mg Capsule.Dr PO 20 mg DAILY SHABBIR Administration Pharmacy Consult 1 each 11/15/20 00:18 Consult Rx Perform Med Rec MISCELLANE ONCE PRN Consult order Pharmacy Consult 1 each 11/17/20 07:03 Consult Rx Perform Med Rec MISCELLANE ONCE PRN Consult order Pharmacy Consult 1 each 11/17/20 09:43 Consult Rx Vancomycin Dosing MISCELLANE DAILY PRN Consult order Pharmacy Consult 1 each 11/19/20 00:15 Consult Rx Vancomycin Dosing MISCELLANE DAILY PRN Consult order Pharmacy Consult 1 each 11/19/20 01:38 Consult Rx Vancomycin Dosing MISCELLANE DAILY PRN Consult order Quetiapine Fumarate 100 mg 11/17/20 21:00 11/20/20 08:54 Quetiapine Fumarate 100 Mg Tablet PO 100 mg BID SHABBIR Administration Sertraline HCl 100 mg 11/17/20 10:00 11/20/20 08:54 Sertraline Hcl 100 Mg Tablet PO 100 mg DAILY SHABBIR Administration Sodium Chloride 3 ml 11/17/20 16:00 11/20/20 08:55 0.9 % Sodium Chloride Flush 3 Ml Syringe IVFLUSH 3 ml QSHIFT [facility] Administration Tamsulosin HCl 0.4 mg 11/15/20 09:00 11/20/20 08:55 Tamsulosin Hcl 0.4 Mg Capsule PO 0.4 mg DAILY SHABBIR Administration Trazodone HCl 100 mg 11/15/20 21:00 11/19/20 20:53 Trazodone Hcl 100 Mg Tablet PO 100 mg BEDTIME [facility] Administration Labs CBC & Chem 7: 11/19/20 11:39 11/20/20 08:23 Labs: Laboratory Results - last 24 hr 11/15/20 11/16/20 11/17/20 01:16 09:10 Unknown WBC 13.9 H 17.2 H 15.2 H MCV MCH MCHC RDW Plt Count MPV Absolute Nucleated RBC Nucleated RBC % (auto) POC Glucose 11/19/20 11/19/20 11/19/20 10:52 11:39 16:30 WBC 6.1 MCV 88.5 MCH 29.3 MCHC 33.1 RDW 13.6 Plt Count 286 MPV 10.3 Absolute Nucleated RBC 0.000 Nucleated RBC % (auto) 0.0 POC Glucose 131 H 95 11/19/20 11/20/20 20:40 07:00 WBC MCV MCH MCHC RDW Plt Count MPV Absolute Nucleated RBC Nucleated RBC % (auto) POC Glucose 122 H 89 Microbiology Microbiology Results: Microbiology 11/19/20 00:18 Blood Culture - Preliminary Blood - Venous No growth after 24 hours. 11/19/20 00:14 Blood Culture - Preliminary Blood - Venous No growth after 24 hours. 11/17/20 10:06 Blood Culture - Preliminary Blood - Venous No growth after 48 hours. 11/17/20 Unknown Blood Culture - Preliminary Blood - Venous No growth after 48 hours. Assessment and Plan (1) Opiate dependence: Status: Chronic (2) Fever: Status: Acute Assessment and Plan: 45 yo M with a PMH of DM, HTN, prior COVID infection, alcohol and IV heroin use, Mood disorder NOS, Psychotic disorder NOS who presented to [facility] ED on 11/17/20 after calling 911 on himself. He has been spiking temperatures for the last 24 hours and now will be admitted for further treatment. 1. Fevers, Sepsis d/t UTI possibly due to UTI, but given his history of IVDU -- Bacteremia ruled out, blood cultures negative x 48, WBC now normal. 2. UTI, d/t E.coli, sensitive to Levaquin 3. DM lantus + sliding scale 4. Chronic Opiate dependence suboxone 5. MoodS/SI--continue meds, should have sitter, medically ready for discharge, N to reassess Quality Stroke Does the patient have a stroke diagnosis?: No VTE Prior VTE?: No VTE Risk Level:: Medical - moderate - high VTE Device Contraindication: Treatment Not Indicated VTE Drug Contraindication: N/A - Med Ordered
[2020-11-20 09:26] LABS: Creatinine Clr Calc Pharmacy 127.7; Estimated Glomerular Filt Rate > 60
[2020-11-20] MEDS: amLODIPine Besylate 5 MG TABLET PO (09:40)
--- NOTE | 2020-11-20 10:01 | MHC.CARE ---
Met with pt after being medically cleared. Pt will be an inpatient bed search.
[2020-11-20 10:51] LABS: Glucose, Whole Blood 160 mg/dL (60-115)
[2020-11-20] MEDS: Insulin Lispro 100 UNIT/ML 3 ML VIAL SUBCUT (12:10)
[2020-11-20 14:00] VITALS: PULSE 52
--- NOTE | 2020-11-20 14:11 | PM.DS ---
DS: Providers Provider Date of Service: 11/20/20 Date of admission: 11/17/20 09:40 Primary care physician: Pato Shaikh MD Consults: 11/15/20 00:15 Consult to Crisis Stat Reason for consultation: substance abuse, homicidal ideations Has provider been notified: Yes 11/18/20 13:15 Addiction Medicine Routine Consulting Provider: Mer Sanchez Reason for consultation: Opioid dependence DS: Diagnosis Discharge Diagnosis (1) Opiate dependence: Status: Chronic (2) Fever: Status: Resolved DS: Summary Hospital Course Hospital Course: Chief Complaint: SI This is a 45 yo M with a PMH as outlined below who presented to the emergency room on 11/14/2020 after calling 911 on himself (per initial ED reports, patient was stating that he was homicidal.). Initial plan was for crisis to evaluate him, however he has since started spiking fevers and now will be admitted to the hospital. Patient is seen in ED on 11/17 morning. He reports generalized body aches and pains. He reports alcohol and IV heroin use prior to hospitalization. He denies any current HI. Reports feeling depressed, but denies any active SI currently. He reports a non-productive cough. He denies any plueritic chest pain, sob. He reports feeling feverish. History if otherwise limited as the patient at this time is not interested in talking much. Hospital cousrse: 1. Fevers, Sepsis due to UTI, culture grew E.coli that is sensitive to Levaquin which he has been taking but has developped what looks like drug rash so will change to Ceftin and treat for a total of 10 days, (he has no penecillin allergy). Because of history of drug use, blood cultures were done and have been negative 3. DM lantus + sliding scale 4. Chronic Opiate dependence suboxone 5. HTN--blood pressure is high not on med and started on Norvasc 5 daily 5. MoodS/SI--To inpatient Psych Time Spent with Patient Time attestation: Total time spent providing and/or coordinating discharge services: Discharge coordination time: Greater than 30 minutes Quality: Stroke Does the patient have a stroke diagnosis?: No Physical Exam Vital Signs: Vital Signs: Last Vital Signs Temp 98.5 F 11/20/20 07:59 Pulse 62 11/20/20 07:59 Resp 19 11/20/20 07:59 BP 161/93 H 11/20/20 07:59 Pulse Ox 98 11/20/20 07:59 Body Mass Index 23.8 Const: Other: Constitutional Awake and Alert, No apparent distress Neck Supple, No lymphadenopathy Cardiovascular RRR, No M/R/G, S1 S2, No S3 S4, No pedal edema Respiratory Lungs clear, No respiratory distress Gastrointestinal Non tender, Non-distended Skin No rash--has some rash on chest and arm Neurological Alert & oriented x3 Psychological SI DS: Data Data Completed and Pending Labs on day of discharge: Laboratory Results - last 24 hr 11/19/20 11/19/20 11/20/20 16:30 20:40 07:00 Creatinine Estim Creat Clear Calc Estimated GFR POC Glucose 95 122 H 89 11/20/20 11/20/20 08:23 10:44 Creatinine 0.77 Estim Creat Clear Calc 127.7 Estimated GFR > 60 POC Glucose 160 H Preliminary micro results at discharge 11/19/20 00:18 Blood Culture - Preliminary Blood - Venous No growth after 24 hours. 11/19/20 00:14 Blood Culture - Preliminary Blood - Venous No growth after 24 hours. 11/17/20 10:06 Blood Culture - Preliminary Blood - Venous No growth after 48 hours. 11/17/20 Unknown Blood Culture - Preliminary Blood - Venous No growth after 48 hours. 11/16/20 09:11 Blood Culture - Preliminary Blood - Venous No growth after 48 hours. Discharge Plan Discharge Anticipated Discharge Date/Time: 11/20/20 09:20 Patient Disposition: Xfer Psychiatric Hosp Discharge Diagnosis: UTI, SI Referrals: [facility] [place] [facility] [Other] - 1 Week Pato Gastelum MD [Primary Care Provider] - 1 Week Discharge Medications: No Action ferrous sulfate 324 mg (65 mg iron) Tablet,Delayed Release (Dr/Ec) 324 mg PO DAILY Qty: 30 RF: 0 bupropion HCl 150 mg Tablet Extended Release 24 Hr 450 mg PO DAILY Qty: 90 RF: 0 duloxetine 20 mg Capsule,Delayed Release(Dr/Ec) 20 mg PO DAILY Qty: 30 RF: 0 lidocaine [Lidocaine Pain Relief] 4 % Adhesive Patch,Medicated 2 patch transdermal DAILY PRN (Reason: leg pain) Qty: 30 RF: 0 quetiapine 200 mg Tablet 200 mg PO BEDTIME Qty: 15 RF: 1 B-complex with vitamin C Tablet 1 tab PO DAILY Qty: 30 RF: 0 quetiapine 50 mg Tablet 150 mg PO DAILY Qty: 15 RF: 1 cholecalciferol (vitamin D3) 25 mcg (1,000 unit) Tablet 25 mcg PO DAILY Qty: 30 RF: 0 sertraline 50 mg tablet 50 mg PO DAILY Qty: 30 RF: 0 multivitamin [One Daily Multivitamin] Tablet 1 tab PO QAM Qty: 30 RF: 0 atorvastatin 20 mg tablet 1 tab PO DAILY Qty: 30 RF: 0 Lantus U-100 Insulin 100 unit/mL solution 70 unit subcut BEDTIME 30 Days Qty: 21 RF: 0 lisinopril 20 mg Tablet 20 mg PO DAILY 30 Days Qty: 30 RF: 0 amlodipine [Norvasc] 5 mg tablet 5 mg PO DAILY Qty: 30 RF: 0 tamsulosin 0.4 mg capsule 0.4 mg PO QAM 30 Days Qty: 30 RF: 0 gabapentin 800 mg tablet 800 mg PO TID 15 Days Qty: 45 RF: 1 trazodone 100 mg tablet 100 mg PO BEDTIME 30 Days Qty: 30 RF: 0 metformin 1,000 mg Tablet 1,000 mg PO BIDWM 30 Days Qty: 60 RF: 0 nicotine 21 mg/24 hr patch 24 hour 1 patch topical DAILY PRN (Reason: Nicotine Cravings) Qty: 30 RF: 0 docusate sodium 100 mg capsule 1 cap PO BID PRN (Reason: constipation) Qty: 60 RF: 0 omeprazole 20 mg Capsule,Delayed Release(Dr/Ec) 20 mg PO DAILY 30 Days Qty: 30 RF: 0 insulin lispro [Humalog U-100 Insulin] 100 unit/mL solution 2 - 10 unit subcut TIDAC Qty: 10 RF: 0 albuterol sulfate [ProAir HFA] 90 mcg/actuation HFA aerosol inhaler 2 puff inhalation Q4H PRN (Reason: wheezing) 30 Days Qty: 6.7 RF: 0 Narcan 4 mg/actuation spray,non-aerosol 1 spray intranasal NEEDED PRN (Reason: Opioid Overdose) 1 Days Qty: 2 RF: 0 buprenorphine-naloxone 8-2 mg film 1 film sublingual QPM Qty: 4 RF: 0 buprenorphine-naloxone [Suboxone] 8-2 mg film 2 film sublingual DAILY Qty: 8 RF: 0 Discharge Orders: Discharge Order (Routine); Ordered 11/20/20 Ordered By: Brandon Kirk Diet: advance to usual diet Activity on Discharge: As tolerated Stand Alone Forms: Patient Portal Discharge page Activity Restrictions/Additional Instructions: return to ED for any worsening symptoms or concerns please use the detox list given to you and make phone calls Patient Instructions: Polysubstance Abuse (ED) Discharge Date/Time: 11/20/20 17:13
--- NOTE | 2020-11-20 14:55 | MHC.CM.PN ---
Patient will dc to [facility] Psychiatric Unit today.
[2020-11-20 15:29] VITALS: BP 130/76; PULSE 54; RESP 18; TEMP 36.6; O2SAT 99
--- NOTE | 2020-11-20 15:41 | ECG_ITS ---
Test Reason : RHYTHM CHECK Blood Pressure : / mmHG Vent. Rate : 055 BPM Atrial Rate : 055 BPM P-R Int : 174 ms QRS Dur : 146 ms QT Int : 496 ms P-R-T Axes : 036 001 037 degrees QTc Int : 474 ms Sinus bradycardia Right bundle branch block Abnormal ECG When compared with ECG of 06-NOV-2020 10:56, No significant change was found Referred By: Brandon [facility] Electronically Signed By:DAMIAN ROSAS MD
[2020-11-20 16:12] LABS: Glucose, Whole Blood 118 mg/dL (60-115)
== END 2020-11-20 17:13 | DRG 720 ==
LOC: HO.ED 11-16 07:59 → HO.EDOVER 11-17 09:50 → HO.IMC 11-17 16:36
PROVIDERS: Emergency Medicine; Internal Medicine; Admitting Provider Family Medicine; Emergency Provider Emergency Medicine Emergency Medical Services; PCP Internal Medicine; Visit Provider Internal Medicine
DX: A41.9 Sepsis, unspecified organism (principal); F33.2 Major depressive disorder, recurrent severe without psychotic features; F11.20 Opioid dependence, uncomplicated; N39.0 Urinary tract infection, site not specified; E11.9 Type 2 diabetes mellitus without complications; F17.210 Nicotine dependence, cigarettes, uncomplicated; B96.20 Unspecified Escherichia coli [E. coli] as the cause of diseases classified elsewhere; Z20.822 Contact with and (suspected) exposure to COVID-19; I10 Essential (primary) hypertension; L27.0 Generalized skin eruption due to drugs and medicaments taken internally; T36.8X5A Adverse effect of other systemic antibiotics, initial encounter; Y92.239 Unspecified place in hospital as the place of occurrence of the external cause; Z86.16 Personal history of COVID-19; Z59.0 Homelessness; Z71.6 Tobacco abuse counseling; Z79.4 Long term (current) use of insulin; Z79.899 Other long term (current) drug therapy
CPT/HCPCS: 0241U; 36415; 71046; 80048; 80053; 80076; 80202; 80307; 81001; 82565; 82803; 82947; 83605; 83690; 85025; 85027; 87040; 87086; 87088; 87147; 87186; 87205; 87633; 93005; 96361; 96365; 99285; J0696; J1650; J1956; J3370

== ENCOUNTER 2020-11-20 17:14 | Inpatient (IN) | payer OTHER, SELFPAY ==
--- NOTE | 2020-11-20 19:28 | PC.ADMIT ---
[place] [facility] [place] , Intrahospital transfer. Pt on 11/14 was a suicide attempt on heroin, cocaine. Pt is homeless. Pt was d/c from two weeks ago. Pt reported that he never saw the Suboxone nurse after d/c from . Pt is a diabetic and takes Lantus and Humalog, suboxone, Levaquin for a UTI. Pt VSS. Pt denies pain. Pt does have a rash on bilat arms and abd. Vicky Tank Filler, was notified and said she would see pt for this. Pt is pleasant and cooperative. Pt signed a CV. Pt has a girlfriend who is a heroin user and who pt reports refuses to quit . Pt alert and oriented x3. Pt chest x-ray and EKG were WNL.
[2020-11-20] MEDS: QUEtiapine Fumarate 100 MG TABLET PO (20:12)
[2020-11-20] MEDS: traZODone HCL 100 MG TABLET PO (20:12)
[2020-11-20] MEDS: Insulin Glargine,Hum.rec.anlog 100 UNIT/ML 10 ML VIAL 70 UNIT SUBCUT (20:16)
[2020-11-20 20:21] LABS: Glucose, Whole Blood 130 mg/dL (60-115)
[2020-11-20] MEDS: Gabapentin 400 MG CAPSULE 800 MG PO (20:29)
[2020-11-21 06:14] LABS: Glucose, Whole Blood 87 mg/dL (60-115)
--- NOTE | 2020-11-21 06:57 | PM.EVENT ---
Event Note Date of Service: 11/21/20 Event Note: We were asked to see the patient regarding a rash that appeared on his arms as well as his abdomen after starting antibiotics for his UTI. This was noted in his discharge summary and was felt to be secondary to Levaquin. Patient's antibiotics were changed to Ceftin and also patient received hydroxyzine and he reports improvement of his rash. At this time I will also order Benadryl p.r.n. for itchiness.
[2020-11-21 08:30] VITALS: BP 128/89; PULSE 72; RESP 16; O2SAT 98
[2020-11-21] MEDS: Gabapentin 400 MG CAPSULE 800 MG PO ×3 (09:13→20:42)
[2020-11-21] MEDS: Multivitamin TABLET 1 TAB PO (09:13)
[2020-11-21] MEDS: Tamsulosin HCL 0.4 MG CAPSULE PO (09:14)
[2020-11-21] MEDS: Sertraline HCL 100 MG TABLET PO (09:14)
[2020-11-21] MEDS: QUEtiapine Fumarate 100 MG TABLET PO ×2 (09:14→20:42)
[2020-11-21] MEDS: Omeprazole 20 MG CAPSULE.DR PO (09:14)
[2020-11-21 09:15] VITALS: BP 128/89; PULSE 72
[2020-11-21] MEDS: metFORMIN HCl 1,000 MG TABLET 1000 MG PO (09:15)
[2020-11-21] MEDS: buPROPion HCl XL 150 MG TAB.ER.24H PO (09:15)
[2020-11-21] MEDS: amLODIPine Besylate 5 MG TABLET PO (09:15)
[2020-11-21] MEDS: Buprenorphine/Naloxone 8/2 mg FILM 2 FILM SUBLINGUAL (11:22)
[2020-11-21] MEDS: Enoxaparin Sodium 40 MG/0.4 ML SYRINGE SUBCUT (11:38)
[2020-11-21 11:50] LABS: Glucose, Whole Blood 92 mg/dL (60-115)
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
[2020-11-21 18:52] LABS: Glucose, Whole Blood 183 mg/dL (60-115)
[2020-11-21] MEDS: Insulin Lispro 100 UNIT/ML 3 ML VIAL SUBCUT (18:57)
[2020-11-21] MEDS: Buprenorphine/Naloxone 4/1 mg FILM 1 FILM SUBLINGUAL (18:58)
[2020-11-21 20:21] LABS: Glucose, Whole Blood 109 mg/dL (60-115)
[2020-11-21] MEDS: traZODone HCL 100 MG TABLET PO (20:42)
[2020-11-21] MEDS: Insulin Glargine,Hum.rec.anlog 100 UNIT/ML 10 ML VIAL 70 UNIT SUBCUT (20:42)
[2020-11-22 06:00] VITALS: BP 141/88; PULSE 80; RESP 14
[2020-11-22 08:14] LABS: Estimated Glomerular Filt Rate > 60
[2020-11-22] MEDS: Nicotine 21 MG PATCH.TD24 TRANSDERMA (09:04)
[2020-11-22] MEDS: Milk of Magnesia 30 ML ORAL.SUSP PO (09:04)
[2020-11-22] MEDS: Acetaminophen 325 MG TABLET 650 MG PO (09:04)
[2020-11-22] MEDS: Tamsulosin HCL 0.4 MG CAPSULE PO (09:04)
[2020-11-22] MEDS: Gabapentin 400 MG CAPSULE 800 MG PO ×3 (09:04→21:38)
[2020-11-22] MEDS: QUEtiapine Fumarate 100 MG TABLET PO ×2 (09:05→21:39)
[2020-11-22] MEDS: Omeprazole 20 MG CAPSULE.DR PO (09:05)
[2020-11-22] MEDS: Atorvastatin Calcium 20 MG TABLET PO (09:05)
[2020-11-22] MEDS: Sertraline HCL 100 MG TABLET PO (09:05)
[2020-11-22] MEDS: Multivitamin TABLET 1 TAB PO (09:05)
[2020-11-22] MEDS: buPROPion HCl XL 150 MG TAB.ER.24H PO (09:05)
[2020-11-22] MEDS: metFORMIN HCl 1,000 MG TABLET 1000 MG PO ×2 (09:05→16:53)
[2020-11-22 09:14] VITALS: BP 141/88; PULSE 80
[2020-11-22] MEDS: lisinopriL 20 MG TABLET PO (09:14)
[2020-11-22] MEDS: amLODIPine Besylate 5 MG TABLET PO (09:14)
[2020-11-22] MEDS: Buprenorphine/Naloxone 8/2 mg FILM 2 FILM SUBLINGUAL (09:22)
[2020-11-22 09:23] LABS: Glucose, Whole Blood 77 mg/dL (60-115)
--- NOTE | 2020-11-22 10:57 | P.PNPSI_ITS ---
Subjective Subjective Date of Service: 11/22/20 Reason For Visit: depression, polysubstance use disorder Interim History: Patient was seen in rounds today. He has been stable and is doing better. He continues to complain of depression and anxiety. No SI/HI. Eating and sleeping adequately. Current treatment plan reviewed. Records were reviewed. He denies any side effects. No changes were made today Review of Systems Review of Systems Yes all other systems are reviewed and are negative Constitutional: Reports as per HPI Diagnostics Vital Signs (24Hr): Vital Signs - 24 hr 11/22/20 06:00 11/22/20 09:14 Pulse Rate 80 80 Respiratory Rate 14 Blood Pressure 141/88 H 141/88 H Labs Results: 11/22/20 07:30 Labs: Laboratory Results - last 48 hr 11/20/20 11/21/20 11/21/20 20:06 06:10 11:46 Creatinine Estim Creat Clear Calc Estimated GFR POC Glucose 130 H 87 92 11/21/20 11/21/20 11/22/20 18:49 20:17 07:30 Creatinine 0.71 Estim Creat Clear Calc TNP Estimated GFR > 60 POC Glucose 183 H 109 11/22/20 08:52 Creatinine Estim Creat Clear Calc Estimated GFR POC Glucose 77 Medications Medications Current Medications Generic Name Dose Route Start Last Admin Trade Name Freq PRN Reason Stop Dose Admin Acetaminophen 650 mg 11/20/20 18:33 11/22/20 09:04 Acetaminophen 325 Mg Tablet PO 650 mg Q6H PRN Administration Headache/Pain Mild Scale (1-3) Al Hydroxide/Mg Hydroxide 30 ml 11/20/20 18:33 Magnesium Hydrox/Alum Hydrox 30 Ml Oral.Susp PO Q6H PRN Heartburn/Nausea Albuterol Sulfate 2 puff 11/20/20 18:43 Albuterol Sulfate 90 Mcg 8 Gm Inhaler INHALE RQ4H PRN asthma Amlodipine Besylate 5 mg 11/21/20 09:00 11/22/20 09:14 Amlodipine Besylate 5 Mg Tablet PO 5 mg DAILY [facility] Administration Protocol Atorvastatin Calcium 20 mg 11/22/20 09:00 11/22/20 09:05 Atorvastatin Calcium 20 Mg Tablet PO 20 mg DAILY [facility] Administration Buprenorphine/Naloxone 2 film 11/21/20 11:00 11/22/20 09:22 Buprenorphine/Naloxone 8/2 Mg Film SUBLINGUAL 2 film 0900 [facility] Administration Buprenorphine/Naloxone 1 film 11/21/20 17:00 11/21/20 18:58 Buprenorphine/Naloxone 4/1 Mg Film SUBLINGUAL 1 film 1700 [facility] Administration Bupropion HCl 150 mg 11/21/20 09:00 11/22/20 09:05 Bupropion Hcl Xl 150 Mg Tab.Er.24h PO 11/24/20 07:59 150 mg DAILY [facility] Administration Bupropion HCl 450 mg 11/24/20 08:00 Bupropion Hcl Xl 150 Mg Tab.Er.24h PO DAILY [facility] Cefuroxime Axetil 500 mg 11/20/20 20:00 11/22/20 09:04 Cefuroxime Axetil 500 Mg Tablet PO 11/27/20 08:00 500 mg Q12H [facility] Administration Diphenhydramine HCl 25 mg 11/20/20 22:57 Diphenhydramine Hcl 25 Mg Tablet PO Q6H PRN Itching Docusate Sodium 100 mg 11/21/20 20:33 Docusate Sodium 100 Mg Capsule PO BID PRN Constipation Gabapentin 800 mg 11/20/20 21:00 11/22/20 09:04 Gabapentin 400 Mg Capsule PO 800 mg TID [facility] Administration Hydroxyzine HCl 25 mg 11/20/20 18:33 Hydroxyzine Hcl 25 Mg Tablet PO Q6H PRN Anxiety Insulin Glargine 70 unit 11/20/20 21:00 11/21/20 20:42 Insulin Glargine,Hum.Rec.Anlog 100 Unit/Ml 10 Ml Vial SUBCUT 70 unit BEDTIME [facility] Administration Insulin Human Lispro 0 unit 11/21/20 16:30 11/22/20 09:18 Insulin Lispro 100 Unit/Ml 3 Ml Vial SUBCUT Not Given [facility]AC [facility] Protocol Lisinopril 20 mg 11/22/20 09:00 11/22/20 09:14 Lisinopril 20 Mg Tablet PO 20 mg DAILY [facility] Administration Protocol Magnesium Hydroxide 30 ml 11/20/20 18:33 11/22/20 09:04 Milk Of Magnesia 30 Ml Oral.Susp PO 30 ml DAILY PRN Administration Constipation Metformin HCl 1,000 mg 11/21/20 08:00 11/22/20 09:05 Metformin Hcl 1,000 Mg Tablet PO 1,000 mg BIDWM [facility] Administration Multivitamins/Vitamin C 1 tab 11/21/20 09:00 11/22/20 09:05 Multivitamin Tablet PO 1 tab DAILY [facility] Administration Nicotine 21 mg 11/21/20 14:15 11/22/20 09:04 Nicotine 21 Mg Patch.Td24 TRANSDERMA 21 mg DAILY [facility] Administration Omeprazole 20 mg 11/21/20 06:30 11/22/20 09:05 Omeprazole 20 Mg Capsule. PO 20 mg DAILY@0630 [facility] Administration Quetiapine Fumarate 100 mg 11/20/20 21:00 11/22/20 09:05 Quetiapine Fumarate 100 Mg Tablet PO 100 mg BID [facility] Administration Sertraline HCl 100 mg 11/21/20 09:00 11/22/20 09:05 Sertraline Hcl 100 Mg Tablet PO 100 mg DAILY [facility] Administration Tamsulosin HCl 0.4 mg 11/21/20 09:00 11/22/20 09:04 Tamsulosin Hcl 0.4 Mg Capsule PO 0.4 mg DAILY [facility] Administration Trazodone HCl 100 mg 11/20/20 21:00 11/21/20 20:42 Trazodone Hcl 100 Mg Tablet PO 100 mg BEDTIME [facility] Administration Allergies Allergies Allergy/AdvReac Type Severity Reaction Status Date / Time levofloxacin [From Levaquin] Allergy Intermediate rash Verified 11/21/20 20:44 Assessment & Plan Assessment & Plan (1) MDD (major depressive disorder), recurrent, severe, with psychosis: Status: Acute Code(s): F33.3 - Major depressive disorder, recurrent, severe with psychotic symptoms Assessment and Plan: 45 yo male, history of recurrent severe major depression presents with SI, HI, relapse on substances along with being septic with UTI. Plan: Re-establish medication regime-pt reports previous regime has been effective. Assist pt in acceptance to [facility] if a bed is available Continue Suboxone therapy Continue to monitor UTI sx (Ceftin x 7 days)-possibl referral to urology is sx persist. Pt would like to see podiatry- will make follow up appt post discharge. (2) Opiate dependence: Status: Chronic Code(s): F11.20 - Opioid dependence, uncomplicated Assessment and Plan: -Continue Suboxone therapy -Assist pt in acceptance to [facility] if a bed is available (3) BPH (benign prostatic hyperplasia): Status: Acute Code(s): N40.0 - Benign prostatic hyperplasia without lower urinary tract symptoms Assessment and Plan: Continue current regimen and plans (4) Alcohol use: Status: Acute Code(s): Z72.89 - Other problems related to lifestyle Assessment and Plan: No current symptoms of withdrawal. Assessment and Plan: As noted above. Greater than 50% of the session was spent on counseling and/or coordination of care Reason for contiued inpatient stay Substantial Risk for: other
[2020-11-22 12:08] LABS: Glucose, Whole Blood 191 mg/dL (60-115)
[2020-11-22] MEDS: Insulin Lispro 100 UNIT/ML 3 ML VIAL SUBCUT ×2 (12:42→16:32)
[2020-11-22 16:38] LABS: Glucose, Whole Blood 190 mg/dL (60-115)
[2020-11-22] MEDS: Buprenorphine/Naloxone 4/1 mg FILM 1 FILM SUBLINGUAL (16:52)
[2020-11-22 20:53] VITALS: BP 147/70; PULSE 61; RESP 16; TEMP 36.4; O2SAT 99
[2020-11-22] MEDS: Insulin Glargine,Hum.rec.anlog 100 UNIT/ML 10 ML VIAL 70 UNIT SUBCUT (21:38)
[2020-11-22] MEDS: traZODone HCL 100 MG TABLET PO (21:38)
[2020-11-22 21:45] LABS: Glucose, Whole Blood 99 mg/dL (60-115)
[2020-11-23] MEDS: diphenhydrAMINE HCL 25 MG TABLET PO ×2 (00:08→12:17)
[2020-11-23] MEDS: Acetaminophen 325 MG TABLET 650 MG PO ×2 (01:25→17:18)
[2020-11-23 06:00] VITALS: BP 124/81; PULSE 74; RESP 14; TEMP 36.2; O2SAT 96
[2020-11-23 07:54] LABS: Glucose, Whole Blood 87 mg/dL (60-115)
[2020-11-23] MEDS: Gabapentin 400 MG CAPSULE 800 MG PO ×3 (08:32→22:47)
[2020-11-23] MEDS: metFORMIN HCl 1,000 MG TABLET 1000 MG PO ×2 (08:32→17:04)
[2020-11-23] MEDS: Atorvastatin Calcium 20 MG TABLET PO (08:32)
[2020-11-23] MEDS: Omeprazole 20 MG CAPSULE.DR PO (08:32)
[2020-11-23] MEDS: buPROPion HCl XL 150 MG TAB.ER.24H PO (08:32)
[2020-11-23 08:33] VITALS: BP 114/61; PULSE 62
[2020-11-23] MEDS: amLODIPine Besylate 5 MG TABLET PO (08:33)
[2020-11-23] MEDS: Nicotine 21 MG PATCH.TD24 TRANSDERMA (08:33)
[2020-11-23] MEDS: QUEtiapine Fumarate 100 MG TABLET PO ×2 (08:33→22:48)
[2020-11-23] MEDS: lisinopriL 20 MG TABLET PO (08:33)
[2020-11-23] MEDS: Sertraline HCL 100 MG TABLET PO (08:33)
[2020-11-23] MEDS: Multivitamin TABLET 1 TAB PO (08:33)
[2020-11-23 08:54] VITALS: BP 114/61; PULSE 62; RESP 14
[2020-11-23] MEDS: Buprenorphine/Naloxone 8/2 mg FILM 2 FILM SUBLINGUAL (09:18)
[2020-11-23] MEDS: Tamsulosin HCL 0.4 MG CAPSULE PO (09:26)
--- NOTE | 2020-11-23 09:57 | HO.PSYCHPN ---
Subjective Subjective Date of Service: 11/23/20 Reason For Visit: depression, polysubstance use disorder Subjective Notes: Nunez Warning Interim History: patient was seen in rounds today. He continues to have some symptoms of depression and some auditory hallucinations. He has been med compliant. Yesterday and this morning he was complaining of a rash on his forearm and was given Benadryl which has helped. No other complaints or changes. Eating and sleeping adequately Mental Status Exam Mental Status Exam Narrative: in today's visit he is alert, oriented and pleasant. Normal speech. Moderate eye contact. affect is appropriate and constricted. No acute signs of psychosis observed. Reported to have auditory hallucinations. No SI. Cognitively intact. Judgment is intact Diagnostics Vital Signs (24Hr): Vital Signs - 24 hr 11/22/20 20:53 11/23/20 06:00 11/23/20 08:33 Temperature 97.5 F 97.2 F Pulse Rate 61 74 62 Respiratory Rate 16 14 Blood Pressure 147/70 H 124/81 114/61 Pulse Oximetry 99 96 11/23/20 08:54 Temperature Pulse Rate 62 Respiratory Rate 14 Blood Pressure 114/61 Pulse Oximetry Labs Results: 11/22/20 07:30 Labs: Laboratory Results - last 48 hr 11/21/20 11/21/20 11/21/20 11:46 18:49 20:17 Creatinine Estim Creat Clear Calc Estimated GFR POC Glucose 92 183 H 109 11/22/20 11/22/20 11/22/20 07:30 08:52 12:02 Creatinine 0.71 Estim Creat Clear Calc TNP Estimated GFR > 60 POC Glucose 77 191 H 11/22/20 11/22/20 11/23/20 16:21 21:32 07:50 Creatinine Estim Creat Clear Calc Estimated GFR POC Glucose 190 H 99 87 Medications Medications Current Medications Generic Name Dose Route Start Last Admin Trade Name Freq PRN Reason Stop Dose Admin Acetaminophen 650 mg 11/20/20 18:33 11/23/20 01:25 Acetaminophen 325 Mg Tablet PO 650 mg Q6H PRN Administration Headache/Pain Mild Scale (1-3) Al Hydroxide/Mg Hydroxide 30 ml 11/20/20 18:33 Magnesium Hydrox/Alum Hydrox 30 Ml Oral.Susp PO Q6H PRN Heartburn/Nausea Albuterol Sulfate 2 puff 11/20/20 18:43 Albuterol Sulfate 90 Mcg 8 Gm Inhaler INHALE RQ4H PRN asthma Amlodipine Besylate 5 mg 11/21/20 09:00 11/23/20 08:33 Amlodipine Besylate 5 Mg Tablet PO 5 mg DAILY [facility] Administration Protocol Atorvastatin Calcium 20 mg 11/22/20 09:00 11/23/20 08:32 Atorvastatin Calcium 20 Mg Tablet PO 20 mg DAILY [facility] Administration Buprenorphine/Naloxone 2 film 11/21/20 11:00 11/23/20 09:18 Buprenorphine/Naloxone 8/2 Mg Film SUBLINGUAL 2 film 0900 [facility] Administration Buprenorphine/Naloxone 1 film 11/21/20 17:00 11/22/20 16:52 Buprenorphine/Naloxone 4/1 Mg Film SUBLINGUAL 1 film 1700 [facility] Administration Bupropion HCl 150 mg 11/21/20 09:00 11/23/20 08:32 Bupropion Hcl Xl 150 Mg Tab.Er.24h PO 11/24/20 07:59 150 mg DAILY [facility] Administration Bupropion HCl 450 mg 11/24/20 08:00 Bupropion Hcl Xl 150 Mg Tab.Er.24h PO DAILY [facility] Cefuroxime Axetil 500 mg 11/20/20 20:00 11/23/20 08:32 Cefuroxime Axetil 500 Mg Tablet PO 11/27/20 08:00 500 mg Q12H [facility] Administration Diphenhydramine HCl 25 mg 11/20/20 22:57 11/23/20 00:08 Diphenhydramine Hcl 25 Mg Tablet PO 25 mg Q6H PRN Administration Itching Docusate Sodium 100 mg 11/21/20 20:33 Docusate Sodium 100 Mg Capsule PO BID PRN Constipation Gabapentin 800 mg 11/20/20 21:00 11/23/20 08:32 Gabapentin 400 Mg Capsule PO 800 mg TID [facility] Administration Hydroxyzine HCl 25 mg 11/20/20 18:33 Hydroxyzine Hcl 25 Mg Tablet PO Q6H PRN Anxiety Insulin Glargine 70 unit 11/20/20 21:00 11/22/20 21:38 Insulin Glargine,Hum.Rec.Anlog 100 Unit/Ml 10 Ml Vial SUBCUT 70 unit BEDTIME [facility] Administration Insulin Human Lispro 0 unit 11/21/20 16:30 11/23/20 08:46 Insulin Lispro 100 Unit/Ml 3 Ml Vial SUBCUT Not Given [facility] Protocol Lisinopril 20 mg 11/22/20 09:00 11/23/20 08:33 Lisinopril 20 Mg Tablet PO 20 mg DAILY [facility] Administration Protocol Magnesium Hydroxide 30 ml 11/20/20 18:33 11/22/20 09:04 Milk Of Magnesia 30 Ml Oral.Susp PO 30 ml DAILY PRN Administration Constipation Metformin HCl 1,000 mg 11/21/20 08:00 11/23/20 08:32 Metformin Hcl 1,000 Mg Tablet PO 1,000 mg BIDWM [facility] Administration Multivitamins/Vitamin C 1 tab 11/21/20 09:00 11/23/20 08:33 Multivitamin Tablet PO 1 tab DAILY [facility] Administration Nicotine 21 mg 11/21/20 14:15 11/23/20 08:33 Nicotine 21 Mg Patch.Td24 TRANSDERMA 21 mg DAILY [facility] Administration Omeprazole 20 mg 11/21/20 06:30 11/23/20 08:32 Omeprazole 20 Mg Capsule.Dr PO 20 mg DAILY@0630 [facility] Administration Quetiapine Fumarate 100 mg 11/20/20 21:00 11/23/20 08:33 Quetiapine Fumarate 100 Mg Tablet PO 100 mg BID [facility] Administration Sertraline HCl 100 mg 11/21/20 09:00 11/23/20 08:33 Sertraline Hcl 100 Mg Tablet PO 100 mg DAILY [facility] Administration Tamsulosin HCl 0.4 mg 11/21/20 09:00 11/23/20 09:26 Tamsulosin Hcl 0.4 Mg Capsule PO 0.4 mg DAILY [facility] Administration Trazodone HCl 100 mg 11/20/20 21:00 11/22/20 21:38 Trazodone Hcl 100 Mg Tablet PO 100 mg BEDTIME [facility] Administration Allergies Allergies Allergy/AdvReac Type Severity Reaction Status Date / Time levofloxacin [From Levaquin] Allergy Intermediate rash Verified 11/21/20 20:44 Assessment & Plan Assessment & Plan (1) MDD (major depressive disorder), recurrent, severe, with psychosis: Status: Acute Code(s): F33.3 - Major depressive disorder, recurrent, severe with psychotic symptoms Assessment and Plan: 45 yo male, history of recurrent severe major depression presents with SI, HI, relapse on substances along with being septic with UTI. Plan: Re-establish medication regime-pt reports previous regime has been effective. Assist pt in acceptance to [facility] if a bed is available Continue Suboxone therapy Continue to monitor UTI sx (Ceftin x 7 days)-possibl referral to urology is sx persist. Pt would like to see podiatry- will make follow up appt post discharge. (2) Opiate dependence: Status: Chronic Code(s): F11.20 - Opioid dependence, uncomplicated Assessment and Plan: -Continue Suboxone therapy -Assist pt in acceptance to [facility] if a bed is available (3) BPH (benign prostatic hyperplasia): Status: Acute Code(s): N40.0 - Benign prostatic hyperplasia without lower urinary tract symptoms Assessment and Plan: Continue current regimen and plans (4) Alcohol use: Status: Acute Code(s): Z72.89 - Other problems related to lifestyle Assessment and Plan: No current symptoms of withdrawal. Assessment and Plan: As noted above. Greater than 50% of the session was spent on counseling and/or coordination of care Reason for contiued inpatient stay Substantial Risk for: other
[2020-11-23 12:22] LABS: Glucose, Whole Blood 101 mg/dL (60-115)
[2020-11-23] MEDS: Insulin Lispro 100 UNIT/ML 3 ML VIAL SUBCUT (17:02)
[2020-11-23] MEDS: Buprenorphine/Naloxone 4/1 mg FILM 1 FILM SUBLINGUAL (17:04)
[2020-11-23 17:24] LABS: Glucose, Whole Blood 291 mg/dL (60-115)
[2020-11-23 18:00] VITALS: BP 115/63; PULSE 77; RESP 16; TEMP 36.5; O2SAT 97
[2020-11-23] MEDS: traZODone HCL 100 MG TABLET PO (22:48)
[2020-11-23] MEDS: Insulin Glargine,Hum.rec.anlog 100 UNIT/ML 10 ML VIAL 70 UNIT SUBCUT (22:54)
[2020-11-23 23:03] LABS: Glucose, Whole Blood 101 mg/dL (60-115)
[2020-11-24 06:00] VITALS: BP 112/65; PULSE 65; RESP 16; TEMP 36; O2SAT 99
[2020-11-24 06:22] LABS: Glucose, Whole Blood 95 mg/dL (60-115)
--- NOTE | 2020-11-24 06:22 | PM.IMHP ---
History of Present Illness Date of Service: 11/23/20 [facility] Medical History Alcohol use Alcohol use disorder, severe, dependence Chronic pain Diverticulitis DM II (diabetes mellitus, type II), controlled High cholesterol (~10/11/20) HTN (hypertension) Marijuana use MDD (major depressive disorder), recurrent episode, severe Neuropathy Opiate dependence Opioid use disorder Opioid use disorder Stimulant use disorder Tobacco use disorder Urinary hesitancy Social History Household Members: None Housing: Homeless Do you presently have visiting nurse or other home services: No Unable to assess alcohol history related to: Refusing to respond Alcohol intake: current Alcohol intake frequency: 0-2 drinks per day Alcohol type: beer and hard liquor Patient Tobacco Use Status: Current everyday Tobacco user Tobacco use type: Cigarette Cigarette Packs Per Day: 1.5 Cigarettes Per Day: 15 Years Smoked: 38 Smoked in Last 30 Days: Yes e-Cigarette/Vaping Use: Never Used Patient Interested in Nicotine Replacement: Yes Patient Given Instructions on How to Stop Smoking: Yes Date Education Initiated: 11/20/20 Second Hand Smoke Exposure: No Use of substances other than those prescribed or required for medical reasons: Yes Substance Use Type: Crack/Cocaine and Heroin Substance Use Frequency: Chronic Longstanding Last Used Substance: Days (ago) Currently Displaying Signs/Symptoms of Drug Intoxication Withdrawal: No Any prior treatment program specific to substance use: Yes Have you been hit, kicked, punched, or otherwise hurt by someone within the past year? If so, by whom?: No Do you feel safe in your current relationship?: No Is there a partner from a previous relationship who is making you feel unsafe now?: No Are you made to feel afraid or neglected: Yes Advance Directives: No Advance Directives Information Provided: No Do you have thoughts of harming others: None Do you have a plan to hurt others: No Plan Recently lost weight without trying: No Eating poorly because of decreased appetite: No Nutrition Risks: No Nutritional Risk Poor oral hygiene: No service: No Current occupational status: unemployed Sexual orientation: Straight/Heterosexual Meds Allergies Allergy/AdvReac Type Severity Reaction Status Date / Time levofloxacin [From Levaquin] Allergy Intermediate rash Verified 11/21/20 20:44 Active Medications: Current Medications Generic Name Dose Route Start Last Admin Trade Name Freq PRN Reason Stop Dose Admin Acetaminophen 650 mg 11/20/20 18:33 11/23/20 17:18 Acetaminophen 325 Mg Tablet PO 650 mg Q6H PRN Administration Headache/Pain Mild Scale (1-3) Al Hydroxide/Mg Hydroxide 30 ml 11/20/20 18:33 Magnesium Hydrox/Alum Hydrox 30 Ml Oral.Susp PO Q6H PRN Heartburn/Nausea Albuterol Sulfate 2 puff 11/20/20 18:43 Albuterol Sulfate 90 Mcg 8 Gm Inhaler INHALE RQ4H PRN asthma Amlodipine Besylate 5 mg 11/21/20 09:00 11/23/20 08:33 Amlodipine Besylate 5 Mg Tablet PO 5 mg DAILY SHABBIR Administration Protocol Atorvastatin Calcium 20 mg 11/22/20 09:00 11/23/20 08:32 Atorvastatin Calcium 20 Mg Tablet PO 20 mg DAILY SHABBIR Administration Buprenorphine/Naloxone 2 film 11/21/20 11:00 11/23/20 09:18 Buprenorphine/Naloxone 8/2 Mg Film SUBLINGUAL 2 film 0900 SHABBIR Administration Buprenorphine/Naloxone 1 film 11/21/20 17:00 11/23/20 17:04 Buprenorphine/Naloxone 4/1 Mg Film SUBLINGUAL 1 film 1700 SHABBIR Administration Bupropion HCl 150 mg 11/21/20 09:00 11/23/20 08:32 Bupropion Hcl Xl 150 Mg Tab.Er.24h PO 11/24/20 07:59 150 mg DAILY SHABBIR Administration Bupropion HCl 450 mg 11/24/20 08:00 Bupropion Hcl Xl 150 Mg Tab.Er.24h PO DAILY SHABBIR Cefuroxime Axetil 500 mg 11/20/20 20:00 11/23/20 22:48 Cefuroxime Axetil 500 Mg Tablet PO 11/27/20 08:00 500 mg Q12H SHABBIR Administration Diphenhydramine HCl 25 mg 11/20/20 22:57 11/23/20 12:17 Diphenhydramine Hcl 25 Mg Tablet PO 25 mg Q6H PRN Administration Itching Docusate Sodium 100 mg 11/21/20 20:33 Docusate Sodium 100 Mg Capsule PO BID PRN Constipation Gabapentin 800 mg 11/20/20 21:00 11/23/20 22:47 Gabapentin 400 Mg Capsule PO 800 mg TID SHABBIR Administration Hydroxyzine HCl 25 mg 11/20/20 18:33 Hydroxyzine Hcl 25 Mg Tablet PO Q6H PRN Anxiety Insulin Glargine 70 unit 11/20/20 21:00 11/23/20 22:54 Insulin Glargine,Hum.Rec.Anlog 100 Unit/Ml 10 Ml Vial SUBCUT 70 unit BEDTIME SHABBIR Administration Insulin Human Lispro 0 unit 11/21/20 16:30 11/23/20 17:02 Insulin Lispro 100 Unit/Ml 3 Ml Vial SUBCUT 6 unit TIDAC SHABBIR Administration Protocol Lisinopril 20 mg 11/22/20 09:00 11/23/20 08:33 Lisinopril 20 Mg Tablet PO 20 mg DAILY SHABBIR Administration Protocol Magnesium Hydroxide 30 ml 11/20/20 18:33 11/22/20 09:04 Milk Of Magnesia 30 Ml Oral.Susp PO 30 ml DAILY PRN Administration Constipation Metformin HCl 1,000 mg 11/21/20 08:00 11/23/20 17:04 Metformin Hcl 1,000 Mg Tablet PO 1,000 mg BIDWM SHABBIR Administration Multivitamins/Vitamin C 1 tab 11/21/20 09:00 11/23/20 08:33 Multivitamin Tablet PO 1 tab DAILY SHABBIR Administration Nicotine 21 mg 11/21/20 14:15 11/23/20 08:33 Nicotine 21 Mg Patch.Td24 TRANSDERMA 21 mg DAILY SHABBIR Administration Omeprazole 20 mg 11/21/20 06:30 11/23/20 08:32 Omeprazole 20 Mg Capsule.Dr PO 20 mg DAILY@0630 SHABBIR Administration Quetiapine Fumarate 100 mg 11/20/20 21:00 11/23/20 22:48 Quetiapine Fumarate 100 Mg Tablet PO 100 mg BID SHABBIR Administration Sertraline HCl 100 mg 11/21/20 09:00 11/23/20 08:33 Sertraline Hcl 100 Mg Tablet PO 100 mg DAILY SHABBIR Administration Tamsulosin HCl 0.4 mg 11/21/20 09:00 11/23/20 09:26 Tamsulosin Hcl 0.4 Mg Capsule PO 0.4 mg DAILY SHABBIR Administration Trazodone HCl 100 mg 11/20/20 21:00 11/23/20 22:48 Trazodone Hcl 100 Mg Tablet PO 100 mg BEDTIME SHABBIR Administration Home Medications Medication Instructions Recorded Confirmed Last Taken Type multivitamin (One Daily 1 tab PO QAM 10/02/20 11/17/20 11/15/20 History Multivitamin) atorvastatin 20 mg tablet 1 tab PO DAILY 11/15/20 11/17/20 11/15/20 History bupropion HCl 150 mg 24 hr tablet, 300 mg PO DAILY 11/15/20 11/17/20 11/15/20 History extended release quetiapine 100 mg tablet 100 mg PO BID 11/15/20 11/17/20 11/15/20 History buprenorphine 8 mg-naloxone 2 mg 1 film SUBLINGUAL QPM 11/17/20 11/17/20 Unknown History sublingual film buprenorphine 8 mg-naloxone 2 mg 2 film SUBLINGUAL DAILY 11/17/20 11/17/20 Unknown History sublingual film (Suboxone) docusate sodium 100 mg capsule 1 cap PO BID PRN 11/17/20 11/17/20 Unknown History insulin lispro 100 unit/mL 2 - 10 unit SUBCUT TIDAC 11/17/20 11/17/20 11/15/20 History subcutaneous solution (Humalog U-100 Insulin) nicotine 21 mg/24 hr daily 1 patch TOPICAL DAILY PRN 11/17/20 11/17/20 Unknown History transdermal patch Physical Exam Vital Signs and Narrative: Vital Signs: Last Vital Signs Temp 97.7 F 11/23/20 18:00 Pulse 77 11/23/20 18:00 Resp 16 11/23/20 18:00 BP 115/63 11/23/20 18:00 Pulse Ox 97 11/23/20 18:00 Results Labs CBC and Chem 7: 11/22/20 07:30 Labs: Laboratory Results - last 24 hr 11/23/20 11/23/20 11/23/20 07:50 12:14 16:57 POC Glucose 87 101 291 H 11/23/20 11/24/20 22:52 06:18 POC Glucose 101 95
[2020-11-24] MEDS: Buprenorphine/Naloxone 8/2 mg FILM 2 FILM SUBLINGUAL (09:06)
[2020-11-24] MEDS: Gabapentin 400 MG CAPSULE 800 MG PO ×3 (09:07→22:35)
[2020-11-24] MEDS: buPROPion HCl XL 150 MG TAB.ER.24H 450 MG PO ×2 (09:07→09:42)
[2020-11-24] MEDS: metFORMIN HCl 1,000 MG TABLET 1000 MG PO ×2 (09:08→18:08)
[2020-11-24] MEDS: Multivitamin TABLET 1 TAB PO (09:09)
[2020-11-24] MEDS: Omeprazole 20 MG CAPSULE.DR PO (09:09)
[2020-11-24] MEDS: Tamsulosin HCL 0.4 MG CAPSULE PO (09:09)
[2020-11-24] MEDS: QUEtiapine Fumarate 100 MG TABLET PO (09:09)
[2020-11-24] MEDS: Sertraline HCL 100 MG TABLET PO (09:10)
[2020-11-24 09:19] VITALS: BP 131/81; PULSE 87
[2020-11-24] MEDS: amLODIPine Besylate 5 MG TABLET PO (09:19)
[2020-11-24] MEDS: Atorvastatin Calcium 20 MG TABLET PO (09:20)
[2020-11-24] MEDS: Nicotine 21 MG PATCH.TD24 TRANSDERMA (09:43)
[2020-11-24 09:45] VITALS: BP 131/81; PULSE 87
[2020-11-24] MEDS: lisinopriL 20 MG TABLET PO (09:45)
[2020-11-24 11:46] LABS: Glucose, Whole Blood 87 mg/dL (60-115)
--- NOTE | 2020-11-24 13:41 | P.PNPSI_ITS ---
Subjective Subjective Date of Service: 11/24/20 Reason For Visit: depression, polysubstance use disorder Subjective Notes: Conditional Voluntary Healthcare Proxy: No Guardianship: No Medical Problems Affecting Mental Status: No Interim History: I am OK but I am not. I have to stay away from people. It is too busy here. I owe money for drugs and there are people in [facility], and [facility] who are out to kill me. My father and my lathe setup operator came to see me today. They are going to write you a letter to tell you what you have to do to help me. You will get it tomorrow. Pt is isolative in milieu. Reports he is not afraid of peers however fears that someone will be admitted to harm him as he owes money. Reports re-titration of medicine is going without SE. Asks for assistance with neuropathic pain as Gabapentin has not been effective. Medication Compliance: Yes Side effects from medications: No Attending Groups: No Review of Systems Acute medical concerns: No Reports neuropathic pain that Gabapentin is not helping Medical Review of Systems: unchanged Review of Systems Reports behavioral changes Psychiatric: Reports anxiety, Reports behavioral changes, Reports depression, Reports difficulty concentrating, Reports hopelessness, Reports anhedonia and Reports paranoia Mental Status Exam Mental Status Exam Patient Appearance: Appropriate Patient Orientation: Person, Place, Time and Situation Level of Consciousness: Alert Patient Behavior: Appropriate, Guarded, Talkative, Cooperative, Suspicious, Anxious, Fearful, Distractible, Isolative and Good Eye Contact Mood Description: Withdrawn Affect Description: Fearful Patient Cognition Impaired: No Ability to Follow Directions: Fair Speech Pattern: Spontaneous Speech Memory Description: Episodic Impaired Delusions: Being Controlled and Paranoid Ideation Perceptual Disturbances: Depersonalization and Derealization Thought Process: Distracted Thought Content: positive for [place] and positive for Circumstantial Depressive Symptoms: Increased Anxiety, Diff. Making Decisions, Difficulty Sleeping, Loss of Int. in Activity, Hopelessness, Isolating-Friends/Family, Increased Fatigue, Loss of Energy and Difficulty Concentrating Judgement: Fair Diagnostics Vital Signs (24Hr): Vital Signs - 24 hr 11/23/20 18:00 11/24/20 06:00 11/24/20 09:19 Temperature 97.7 F 96.8 F Pulse Rate 77 65 87 Respiratory Rate 16 16 Blood Pressure 115/63 112/65 131/81 Pulse Oximetry 97 99 11/24/20 09:45 Temperature Pulse Rate 87 Respiratory Rate Blood Pressure 131/81 Pulse Oximetry Labs Results: 11/22/20 07:30 Labs: Laboratory Results - last 48 hr 11/22/20 11/22/20 11/23/20 16:21 21:32 07:50 POC Glucose 190 H 99 87 11/23/20 11/23/20 08 12:14 16:57 22:52 POC Glucose 101 291 H 101 11/24/20 11/24/20 06:18 11:42 POC Glucose 95 87 Medications Medications Current Medications Generic Name Dose Route Start Last Admin Trade Name Freq PRN Reason Stop Dose Admin Acetaminophen 650 mg 11/20/20 18:33 11/23/20 17:18 Acetaminophen 325 Mg Tablet PO 650 mg Q6H PRN Administration Headache/Pain Mild Scale (1-3) Al Hydroxide/Mg Hydroxide 30 ml 11/20/20 18:33 Magnesium Hydrox/Alum Hydrox 30 Ml Oral.Susp PO Q6H PRN Heartburn/Nausea Albuterol Sulfate 2 puff 11/20/20 18:43 Albuterol Sulfate 90 Mcg 8 Gm Inhaler INHALE RQ4H PRN asthma Amlodipine Besylate 5 mg 11/21/20 09:00 11/24/20 09:19 Amlodipine Besylate 5 Mg Tablet PO 5 mg DAILY SHABBIR Administration Protocol Atorvastatin Calcium 20 mg 11/22/20 09:00 11/24/20 09:20 Atorvastatin Calcium 20 Mg Tablet PO 20 mg DAILY SHABBIR Administration Buprenorphine/Naloxone 2 film 11/21/20 11:00 11/24/20 09:06 Buprenorphine/Naloxone 8/2 Mg Film SUBLINGUAL 2 film 0900 SHABBIR Administration Buprenorphine/Naloxone 1 film 11/21/20 17:00 11/23/20 17:04 Buprenorphine/Naloxone 4/1 Mg Film SUBLINGUAL 1 film 1700 SHABBIR Administration Bupropion HCl 450 mg 11/24/20 08:00 11/24/20 09:42 Bupropion Hcl Xl 150 Mg Tab.Er.24h PO 450 mg DAILY SHABBIR Administration Cefuroxime Axetil 500 mg 11/20/20 20:00 11/24/20 09:08 Cefuroxime Axetil 500 Mg Tablet PO 11/27/20 08:00 500 mg Q12H SHABBIR Administration Diphenhydramine HCl 25 mg 11/20/20 22:57 11/23/20 12:17 Diphenhydramine Hcl 25 Mg Tablet PO 25 mg Q6H PRN Administration Itching Docusate Sodium 100 mg 11/21/20 20:33 Docusate Sodium 100 Mg Capsule PO BID PRN Constipation Gabapentin 800 mg 11/20/20 21:00 11/24/20 09:07 Gabapentin 400 Mg Capsule PO 800 mg TID SHABBIR Administration Hydroxyzine HCl 25 mg 11/20/20 18:33 Hydroxyzine Hcl 25 Mg Tablet PO Q6H PRN Anxiety Insulin Glargine 70 unit 11/20/20 21:00 11/23/20 22:54 Insulin Glargine,Hum.Rec.Anlog 100 Unit/Ml 10 Ml Vial SUBCUT 70 unit BEDTIME SHABBIR Administration Insulin Human Lispro 0 unit 11/21/20 16:30 11/24/20 11:51 Insulin Lispro 100 Unit/Ml 3 Ml Vial SUBCUT Not Given TIDAC [facility] Protocol Lisinopril 20 mg 11/22/20 09:00 11/24/20 09:45 Lisinopril 20 Mg Tablet PO 20 mg DAILY SHABBIR Administration Protocol Magnesium Hydroxide 30 ml 11/20/20 18:33 11/22/20 09:04 Milk Of Magnesia 30 Ml Oral.Susp PO 30 ml DAILY PRN Administration Constipation Metformin HCl 1,000 mg 11/21/20 08:00 11/24/20 09:08 Metformin Hcl 1,000 Mg Tablet PO 1,000 mg BIDWM SHABBIR Administration Multivitamins/Vitamin C 1 tab 11/21/20 09:00 11/24/20 09:09 Multivitamin Tablet PO 1 tab DAILY SHABBIR Administration Nicotine 21 mg 11/21/20 14:15 11/24/20 09:43 Nicotine 21 Mg Patch.Td24 TRANSDERMA 21 mg DAILY SHABBIR Administration Omeprazole 20 mg 11/21/20 06:30 11/24/20 09:09 Omeprazole 20 Mg Capsule.Dr PO 20 mg DAILY@0630 [facility] Administration Quetiapine Fumarate 100 mg 11/20/20 21:00 11/24/20 09:09 Quetiapine Fumarate 100 Mg Tablet PO 100 mg BID SHABBIR Administration Sertraline HCl 100 mg 11/21/20 09:00 11/24/20 09:10 Sertraline Hcl 100 Mg Tablet PO 100 mg DAILY SHABBIR Administration Tamsulosin HCl 0.4 mg 11/21/20 09:00 11/24/20 09:09 Tamsulosin Hcl 0.4 Mg Capsule PO 0.4 mg DAILY SHABBIR Administration Trazodone HCl 100 mg 11/20/20 21:00 11/23/20 22:48 Trazodone Hcl 100 Mg Tablet PO 100 mg BEDTIME SHABBIR Administration Allergies Allergies Allergy/AdvReac Type Severity Reaction Status Date / Time levofloxacin [From Levaquin] Allergy Intermediate rash Verified 11/21/20 20:44 Assessment & Plan Assessment & Plan (1) MDD (major depressive disorder), recurrent, severe, with psychosis: Status: Acute Code(s): F33.3 - Major depressive disorder, recurrent, severe with psychotic symptoms Assessment and Plan: 45 yo male, history of recurrent severe major depression presents with SI, HI, relapse on substances along with being septic with UTI. Plan: Re-establish medication regime-pt reports previous regime has been effective. Assist pt in acceptance to [facility] if a bed is available Continue Suboxone therapy Continue to monitor UTI sx (Ceftin x 7 days)-possible referral to urology is sx persist. Pt would like to see podiatry- will make follow up appt post discharge. 11/24/20: Increase in fear, paranoia today regarding owing people drug money? R/O UTI/ABX delirium, psychosis, or actual concern. Will increases Quetiapine a.m. and p.m. Neuropathic pain increase-? Cymbalta to replace Sertraline, Capsacin, Lidocaine Patch-will discuss further with pt. (2) Opiate dependence: Status: Chronic Code(s): F11.20 - Opioid dependence, uncomplicated Assessment and Plan: -Continue Suboxone therapy -Assist pt in acceptance to [facility] if a bed is available (3) BPH (benign prostatic hyperplasia): Status: Acute Code(s): N40.0 - Benign prostatic hyperplasia without lower urinary tract symptoms Assessment and Plan: Continue current regimen and plans (4) Alcohol use: Status: Acute Code(s): Z72.89 - Other problems related to lifestyle Assessment and Plan: No current symptoms of withdrawal. Assessment and Plan: As noted above. Greater than 50% of the session was spent on counseling and/or coordination of care Reason for contiued inpatient stay Substantial Risk for: harm to self, harm to others, inability to function and rapid decompensation
[2020-11-24 17:10] LABS: Glucose, Whole Blood 136 mg/dL (60-115)
[2020-11-24] MEDS: Buprenorphine/Naloxone 4/1 mg FILM 1 FILM SUBLINGUAL (18:08)
[2020-11-24 18:26] VITALS: BP 110/66; PULSE 84; RESP 16; TEMP 36.3; O2SAT 98
[2020-11-24] MEDS: traZODone HCL 100 MG TABLET PO (22:36)
[2020-11-24] MEDS: QUEtiapine Fumarate 50 MG TABLET 150 MG PO (22:36)
[2020-11-24] MEDS: Acetaminophen 325 MG TABLET 650 MG PO (22:51)
[2020-11-24 22:59] LABS: Glucose, Whole Blood 78 mg/dL (60-115)
[2020-11-24] MEDS: Insulin Glargine,Hum.rec.anlog 100 UNIT/ML 10 ML VIAL 70 UNIT SUBCUT (23:46)
--- NOTE | 2020-11-25 01:12 | PC.NURSE ---
Pt had a POC of 78 and the Hospitalist clinical account liaison was notified to confirm whether the dosage of 70 units was adequate for him for bedtime. The hospitalist recommended that he only take 25 units out of the 70 units scheduled at Bedtime. Given the 25 units.
[2020-11-25] MEDS: Docusate Sodium 100 MG CAPSULE PO (04:51)
[2020-11-25 06:00] VITALS: BP 109/56; PULSE 60; TEMP 35.8; O2SAT 96
[2020-11-25] MEDS: Omeprazole 20 MG CAPSULE.DR PO (06:08)
[2020-11-25 06:17] LABS: Glucose, Whole Blood 132 mg/dL (60-115)
[2020-11-25 09:07] VITALS: BP 120/74; PULSE 84
[2020-11-25] MEDS: Atorvastatin Calcium 20 MG TABLET PO (09:07)
[2020-11-25] MEDS: buPROPion HCl XL 150 MG TAB.ER.24H 450 MG PO (09:07)
[2020-11-25] MEDS: Milk of Magnesia 30 ML ORAL.SUSP PO (09:07)
[2020-11-25] MEDS: lisinopriL 20 MG TABLET PO (09:07)
[2020-11-25 09:08] VITALS: BP 120/74; PULSE 86
[2020-11-25] MEDS: metFORMIN HCl 1,000 MG TABLET 1000 MG PO ×2 (09:08→18:02)
[2020-11-25] MEDS: Acetaminophen 325 MG TABLET 650 MG PO (09:08)
[2020-11-25] MEDS: Gabapentin 400 MG CAPSULE 800 MG PO ×3 (09:08→20:25)
[2020-11-25] MEDS: Tamsulosin HCL 0.4 MG CAPSULE PO (09:08)
[2020-11-25] MEDS: Multivitamin TABLET 1 TAB PO (09:08)
[2020-11-25] MEDS: amLODIPine Besylate 5 MG TABLET PO (09:08)
[2020-11-25] MEDS: Sertraline HCL 100 MG TABLET PO (09:08)
[2020-11-25] MEDS: QUEtiapine Fumarate 50 MG TABLET 150 MG PO ×2 (09:08→20:25)
[2020-11-25] MEDS: Nicotine 21 MG PATCH.TD24 TRANSDERMA (09:09)
[2020-11-25] MEDS: Buprenorphine/Naloxone 8/2 mg FILM 2 FILM SUBLINGUAL (09:09)
[2020-11-25] MEDS: diphenhydrAMINE HCL 25 MG TABLET PO (09:15)
--- NOTE | 2020-11-25 11:30 | MHC.CLN ---
RE: CONSULT HT 73 WT N/A IBW 172#+/-10% PT APPEARS OBESE FOR HT PT REPORTING WT LOSS 250-174 IN 4 MONTHS WT HISTORY FOLLOWS FROM PREVIOUS ADMISSIONS: 11/05/20 374# 06/24/20 200# 06/24/20 194# DIET RX: REGULAR-PT REQUESTING REGULAR DIET FOR INCREASE IN VARIETY PT IS A DIABETIC, BUT DOES NOT WANT TO FOLLOW DM DIET AT THIS TIME PLAN 1. OBTAIN CURRENT WEIGHT 2. D/C 8OZ GLUCERNA TID 3. MONITOR PO INTAKE CLOSELY 4. CONTINUE REGULAR DIET PER PT'S REQUEST WILL F/U NEEDED PER MD REQUEST
[2020-11-25 11:56] LABS: Glucose, Whole Blood 129 mg/dL (60-115)
[2020-11-25] MEDS: Ferrous Sulfate 324 MG TABLET.DR PO (12:38)
[2020-11-25] MEDS: hydrOXYzine HCL 25 MG TABLET PO (12:38)
[2020-11-25] MEDS: Lidocaine 4 % Patch ADH..PATCH 2 PATCH TRANSDERMA (12:41)
[2020-11-25 12:46] VITALS: BMI 24.3
--- NOTE | 2020-11-25 12:57 | HO.PSYCHPN ---
Subjective Subjective Date of Service: 11/25/20 Reason For Visit: depression, polysubstance use disorder Subjective Notes: Conditional Voluntary Healthcare Proxy: No Guardianship: No Medical Problems Affecting Mental Status: No Interim History: Reports medication regime is tolerated. Discussed anemia and ferrous sulfate replacement which he agrees with. Will add Vit D, B Complex and repeat CMP. Discussed using Nicotine Patch, dietary restrictions, using Ensure and having a nutrition consult. Reports weight loss 250 to 174 in ~ 4 months. Rash on bilateral arms is now on chest, stomach-discussed with hospitalist services who encouraged benadryl prn and stopping Ceftin at this time (two days of dosing are left). Reviewed with pt his visitor restriction due to his fear that someone will come into kill him due to community conflicts he is facing. Hopeful for admission to [facility]. Medication Compliance: Yes Side effects from medications: No Attending Groups: No Review of Systems Acute medical concerns: No Rash discussed with Jennifer Ellington NP of hospitalist service via text who encouraged Benadryl prn and to stop two remaining days of Ceftin. Medical Review of Systems: unchanged Review of Systems Skin/Breast: Reports pruritus and Reports rash (forearms, stomach, chest. Plan: Ceftin D/C, Benadryl prn per hospitalist ) Psychiatric: Reports abnormal sleep pattern, Reports anxiety, Reports depression, Reports difficulty concentrating, Reports paranoia and Reports suicidal ideation Mental Status Exam Mental Status Exam Patient Appearance: Appropriate Patient Orientation: Person, Place, Time and Situation Level of Consciousness: Alert Patient Behavior: Appropriate, Guarded, Talkative, Cooperative, Suspicious, Anxious, Fearful, Avoidant, Distractible and Good Eye Contact Mood Description: Suspicious, Withdrawn, Fearful, Anxious, Nervous and Apprehensive Affect Description: Constricted and Apprehensive Patient Cognition Impaired: No Ability to Follow Directions: Good Speech Pattern: Spontaneous Speech Memory Description: Episodic Impaired Hallucinations: None Delusions: Not Present Thought Process: Distracted and Rumination Thought Content: positive for Intact, positive for [place], positive for Circumstantial, positive for Perseveration, positive for Preoccupation and positive for Suicidal Ideation Depressive Symptoms: Increased Anxiety, Insomnia, Diff. Making Decisions, Difficulty Sleeping, Hopelessness, Unhappiness and Low Self Esteem Judgement: Fair Diagnostics Vital Signs (24Hr): Vital Signs - 24 hr 11/24/20 18:26 11/25/20 06:00 11/25/20 09:07 Temperature 97.3 F 96.4 F L Pulse Rate 84 60 84 Respiratory Rate 16 Blood Pressure 110/66 109/56 L 120/74 Pulse Oximetry 98 96 11/25/20 09:08 Temperature Pulse Rate 86 Respiratory Rate Blood Pressure 120/74 Pulse Oximetry Body Mass Index 24.3 Labs Results: 11/22/20 07:30 Labs: Laboratory Results - last 48 hr 11/23/20 11/23/20 11/24/20 16:57 22:52 06:18 POC Glucose 291 H 101 95 11/24/20 11/24/20 11/24/20 11:42 17:06 22:48 POC Glucose 87 136 H 78 11/25/20 11/25/20 06:08 11:53 POC Glucose 132 H 129 H Medications Medications Current Medications Generic Name Dose Route Start Last Admin Trade Name Freq PRN Reason Stop Dose Admin Acetaminophen 650 mg 11/20/20 18:33 11/25/20 09:08 Acetaminophen 325 Mg Tablet PO 650 mg Q6H PRN Administration Headache/Pain Mild Scale (1-3) Al Hydroxide/Mg Hydroxide 30 ml 11/20/20 18:33 Magnesium Hydrox/Alum Hydrox 30 Ml Oral.Susp PO Q6H PRN Heartburn/Nausea Albuterol Sulfate 2 puff 11/20/20 18:43 Albuterol Sulfate 90 Mcg 8 Gm Inhaler INHALE RQ4H PRN asthma Amlodipine Besylate 5 mg 11/21/20 09:00 11/25/20 09:08 Amlodipine Besylate 5 Mg Tablet PO 5 mg DAILY SHABBIR Administration Protocol Atorvastatin Calcium 20 mg 11/22/20 09:00 11/25/20 09:07 Atorvastatin Calcium 20 Mg Tablet PO 20 mg DAILY SHABBIR Administration Buprenorphine/Naloxone 2 film 11/21/20 11:00 11/25/20 09:09 Buprenorphine/Naloxone 8/2 Mg Film SUBLINGUAL 2 film 0900 SHABBIR Administration Buprenorphine/Naloxone 1 film 11/21/20 17:00 11/24/20 18:08 Buprenorphine/Naloxone 4/1 Mg Film SUBLINGUAL 1 film 1700 SHABBIR Administration Bupropion HCl 450 mg 11/24/20 08:00 11/25/20 09:07 Bupropion Hcl Xl 150 Mg Tab.Er.24h PO 450 mg DAILY SHABBIR Administration Diphenhydramine HCl 50 mg 11/25/20 11:42 Diphenhydramine Hcl 25 Mg Tablet PO Q6H PRN rash, itching Docusate Sodium 100 mg 11/21/20 20:33 11/25/20 04:51 Docusate Sodium 100 Mg Capsule PO 100 mg BID PRN Administration Constipation Ferrous Sulfate 324 mg 11/25/20 10:15 11/25/20 12:38 Ferrous Sulfate 324 Mg Tablet.Dr PO 324 mg DAILY SHABBIR Administration Gabapentin 800 mg 11/20/20 21:00 11/25/20 09:08 Gabapentin 400 Mg Capsule PO 800 mg TID SHABBIR Administration Hydroxyzine HCl 25 mg 11/20/20 18:33 11/25/20 12:38 Hydroxyzine Hcl 25 Mg Tablet PO 25 mg Q6H PRN Administration Anxiety Insulin Glargine 70 unit 11/20/20 21:00 11/24/20 23:46 Insulin Glargine,Hum.Rec.Anlog 100 Unit/Ml 10 Ml Vial SUBCUT 25 unit BEDTIME SHABBIR Administration Insulin Human Lispro 0 unit 11/21/20 16:30 11/25/20 12:37 Insulin Lispro 100 Unit/Ml 3 Ml Vial SUBCUT Not Given [facility]AC [facility] Protocol Lidocaine 2 patch 11/24/20 14:58 11/25/20 12:41 Lidocaine 4 % Patch Adh..Patch TRANSDERMA 2 patch DAILY PRN Administration leg pain Protocol Lisinopril 20 mg 11/22/20 09:00 11/25/20 09:07 Lisinopril 20 Mg Tablet PO 20 mg DAILY SHABBIR Administration Protocol Magnesium Hydroxide 30 ml 11/20/20 18:33 11/25/20 09:07 Milk Of Magnesia 30 Ml Oral.Susp PO 30 ml DAILY PRN Administration Constipation Metformin HCl 1,000 mg 11/21/20 08:00 11/25/20 09:08 Metformin Hcl 1,000 Mg Tablet PO 1,000 mg BIDWM SHABBIR Administration Multivitamins 1 tab 11/26/20 09:00 B-Complex With Vitamin C Tablet PO DAILY [facility] Multivitamins/Vitamin C 1 tab 11/21/20 09:00 11/25/20 09:08 Multivitamin Tablet PO 1 tab DAILY SHABBIR Administration Nicotine 21 mg 11/21/20 14:15 11/25/20 09:09 Nicotine 21 Mg Patch.Td24 TRANSDERMA 21 mg DAILY SHABBIR Administration Omeprazole 20 mg 11/21/20 06:30 11/25/20 06:08 Omeprazole 20 Mg Capsule. PO 20 mg DAILY@0630 SHABBIR Administration Quetiapine Fumarate 150 mg 11/24/20 21:00 11/25/20 09:08 Quetiapine Fumarate 50 Mg Tablet PO 150 mg BID SHABBIR Administration Sertraline HCl 100 mg 11/21/20 09:00 11/25/20 09:08 Sertraline Hcl 100 Mg Tablet PO 100 mg DAILY SHABBIR Administration Tamsulosin HCl 0.4 mg 11/21/20 09:00 11/25/20 09:08 Tamsulosin Hcl 0.4 Mg Capsule PO 0.4 mg DAILY SHABBIR Administration Trazodone HCl 100 mg 11/20/20 21:00 11/24/20 22:36 Trazodone Hcl 100 Mg Tablet PO 100 mg BEDTIME SHABBIR Administration Vitamin D 25 mcg 11/26/20 09:00 Cholecalciferol (Vitamin D3) 25 Mcg Tablet PO DAILY SHABBIR Allergies Allergies Allergy/AdvReac Type Severity Reaction Status Date / Time levofloxacin [From Levaquin] Allergy Intermediate rash Verified 11/21/20 20:44 Assessment & Plan Assessment & Plan (1) MDD (major depressive disorder), recurrent, severe, with psychosis: Status: Acute Code(s): F33.3 - Major depressive disorder, recurrent, severe with psychotic symptoms Assessment and Plan: 45 yo male, history of recurrent severe major depression presents with SI, HI, relapse on substances along with being septic with UTI. Plan: Re-establish medication regime-pt reports previous regime has been effective. Assist pt in acceptance to [facility] if a bed is available Continue Suboxone therapy Discontinue Ceftin-Rash on bilateral forearms, stomach, chest. Consult with hospitalist-Varghese giordano Pt would like to see podiatry- will make follow up appt post discharge. 11/24/20: Increase in fear, paranoia today regarding owing people drug money? R/O UTI/ABX delirium, psychosis, or actual concern. Will increases Quetiapine a.m. and p.m. Neuropathic pain increase-? Cymbalta to replace Sertraline, Capsacin, Lidocaine Patch-will discuss further with pt. 11/25/20: Discontinue Ceftin, Nicotine Patch 21 mg; Nutritional Consult-ensure, change to regular diet (weight change 250 to 174 in ~4 months pt reports) (2) Opiate dependence: Status: Chronic Code(s): F11.20 - Opioid dependence, uncomplicated Assessment and Plan: -Continue Suboxone therapy -Assist pt in acceptance to [facility] if a bed is available (3) BPH (benign prostatic hyperplasia): Status: Acute Code(s): N40.0 - Benign prostatic hyperplasia without lower urinary tract symptoms Assessment and Plan: Continue current regimen and plans (4) Alcohol use: Status: Acute Code(s): Z72.89 - Other problems related to lifestyle Assessment and Plan: No current symptoms of withdrawal. Assessment and Plan: As noted above. Greater than 50% of the session was spent on counseling and/or coordination of care Patient educated on: medication risk/benefits and therapeutic strategies Informed Consent: understands Reason for contiued inpatient stay Substantial Risk for: harm to self, inability to function and rapid decompensation
[2020-11-25 17:41] LABS: Glucose, Whole Blood 94 mg/dL (60-115)
[2020-11-25] MEDS: Buprenorphine/Naloxone 4/1 mg FILM 1 FILM SUBLINGUAL (18:02)
[2020-11-25 18:35] VITALS: BP 118/76; PULSE 80; TEMP 36.7
[2020-11-25] MEDS: Insulin Glargine,Hum.rec.anlog 100 UNIT/ML 10 ML VIAL 70 UNIT SUBCUT (20:24)
[2020-11-25] MEDS: traZODone HCL 100 MG TABLET PO (20:25)
[2020-11-25 21:41] LABS: Glucose, Whole Blood 141 mg/dL (60-115)
[2020-11-26 06:24] LABS: Glucose, Whole Blood 88 mg/dL (60-115)
[2020-11-26 06:38] VITALS: BP 115/69; PULSE 64; RESP 16; O2SAT 96
[2020-11-26 08:53] VITALS: BP 116/81; PULSE 77
[2020-11-26] MEDS: buPROPion HCl XL 150 MG TAB.ER.24H 450 MG PO (08:53)
[2020-11-26] MEDS: Tamsulosin HCL 0.4 MG CAPSULE PO (08:53)
[2020-11-26] MEDS: Sertraline HCL 100 MG TABLET PO (08:53)
[2020-11-26] MEDS: Nicotine 21 MG PATCH.TD24 TRANSDERMA (08:53)
[2020-11-26] MEDS: QUEtiapine Fumarate 50 MG TABLET 150 MG PO (08:53)
[2020-11-26] MEDS: Gabapentin 400 MG CAPSULE 800 MG PO ×3 (08:53→20:39)
[2020-11-26] MEDS: amLODIPine Besylate 5 MG TABLET PO (08:53)
[2020-11-26 08:54] VITALS: BP 116/81; PULSE 77
[2020-11-26] MEDS: Atorvastatin Calcium 20 MG TABLET PO (08:54)
[2020-11-26] MEDS: Cholecalciferol (Vitamin D3) 25 MCG TABLET PO (08:54)
[2020-11-26] MEDS: Omeprazole 20 MG CAPSULE.DR PO (08:54)
[2020-11-26] MEDS: lisinopriL 20 MG TABLET PO (08:54)
[2020-11-26] MEDS: Multivitamin TABLET 1 TAB PO (08:54)
[2020-11-26] MEDS: Ferrous Sulfate 324 MG TABLET.DR PO (08:54)
[2020-11-26] MEDS: metFORMIN HCl 1,000 MG TABLET 1000 MG PO ×2 (08:54→18:26)
[2020-11-26 09:06] LABS: Alanine Aminotransferase 44 U/L (0-40); Albumin Level 3.5 g/dL (3.5-5.0); Alkaline Phosphatase 169 U/L (39-117); Anion Gap 10 (12-20); Aspartate Amino Transferase 56 U/L (5-37); Blood Urea Nitrogen 10 mg/dL (9-16); Calcium 9.1 mg/dL (8.4-10.2); Carbon Dioxide 36 mmol/L (22-29); Chloride 99 mmol/L (96-108); Creatinine Clr Calc Pharmacy 128.4; Estimated Glomerular Filt Rate > 60; Glucose Random 68 mg/dL (60-115); Sodium 140 mmol/L (135-145); Total Protein 7.7 g/dL (6.5-8.0)
[2020-11-26] MEDS: Buprenorphine/Naloxone 8/2 mg FILM 2 FILM SUBLINGUAL (09:31)
[2020-11-26] MEDS: Lidocaine 4 % Patch ADH..PATCH 2 PATCH TRANSDERMA (09:31)
[2020-11-26 09:48] LABS: Bilirubin Total 0.2 mg/dL (0.0-1.0)
--- NOTE | 2020-11-26 12:30 | HO.PSYCHPN ---
Subjective Subjective Date of Service: 11/26/20 Reason For Visit: depression, polysubstance use disorder Subjective Notes: Conditional Voluntary Healthcare Proxy: No Guardianship: No Medical Problems Affecting Mental Status: No Interim History: Pt willing to trial cross tapering Sertraline to Cymbalta for improved mgt of depression and pain sx. Also willing to broaden his area of CSS choices. Met with pt and Marko HIRSCH to discuss this. Pt very willing to accept suggestions for more effective treatment outcome. Medication Compliance: Yes Side effects from medications: No Attending Groups: No Review of Systems Acute medical concerns: No Medical Review of Systems: unchanged Review of Systems Psychiatric: Reports anxiety, Reports depression, Reports difficulty concentrating, Reports paranoia and Reports suicidal ideation (denies currently) Mental Status Exam Mental Status Exam Patient Appearance: Appropriate Patient Orientation: Person, Place, Time and Situation Level of Consciousness: Alert Patient Behavior: Appropriate, Talkative, Cooperative, Suspicious, Fearful, Distractible and Good Eye Contact Mood Description: Suspicious, Depressed, Fearful and Anxious Affect Description: Constricted Patient Cognition Impaired: No Ability to Follow Directions: Good Speech Pattern: Clear, Perseverating, Appropriate and Spontaneous Speech Memory Description: Intact Hallucinations: None Delusions: Paranoid Ideation Perceptual Disturbances: Derealization Thought Process: Distracted Thought Content: positive for Circumstantial Depressive Symptoms: Increased Anxiety, Diff. Making Decisions and Thoughts of /Suicide (denies today) Judgement: Fair Diagnostics Vital Signs (24Hr): Vital Signs - 24 hr 11/25/20 18:35 11/26/20 06:38 11/26/20 08:53 Temperature 98.0 F Pulse Rate 80 64 77 Respiratory Rate 16 Blood Pressure 118/76 115/69 116/81 Pulse Oximetry 96 11/26/20 08:54 Temperature Pulse Rate 77 Respiratory Rate Blood Pressure 116/81 Pulse Oximetry Body Mass Index 24.3 Labs Results: 11/26/20 08:07 Labs: Laboratory Results - last 48 hr 11/24/20 11/24/20 11/25/20 17:06 22:48 06:08 Sodium Potassium Chloride Carbon Dioxide Anion Gap BUN Creatinine Estim Creat Clear Calc Estimated GFR POC Glucose 136 H 78 132 H Random Glucose Calcium Total Bilirubin AST ALT Alkaline Phosphatase Total Protein Albumin 11/25/20 11/25/20 11/25/20 11:53 17:37 20:31 Sodium Potassium Chloride Carbon Dioxide Anion Gap BUN Creatinine Estim Creat Clear Calc Estimated GFR POC Glucose 129 H 94 141 H Random Glucose Calcium Total Bilirubin AST ALT Alkaline Phosphatase Total Protein Albumin 11/26/20 11/26/20 06:21 08:07 Sodium 140 Potassium 5.0 D Chloride 99 Carbon Dioxide 36 H Anion Gap 10 L BUN 10 Creatinine 0.79 Estim Creat Clear Calc 128.4 Estimated GFR > 60 POC Glucose 88 Random Glucose 68 D Calcium 9.1 D Total Bilirubin 0.2 AST 56 H ALT 44 H Alkaline Phosphatase 169 H D Total Protein 7.7 Albumin 3.5 Medications Medications Current Medications Generic Name Dose Route Start Last Admin Trade Name Freq PRN Reason Stop Dose Admin Acetaminophen 650 mg 11/20/20 18:33 11/25/20 09:08 Acetaminophen 325 Mg Tablet PO 650 mg Q6H PRN Administration Headache/Pain Mild Scale (1-3) Al Hydroxide/Mg Hydroxide 30 ml 11/20/20 18:33 Magnesium Hydrox/Alum Hydrox 30 Ml Oral.Susp PO Q6H PRN Heartburn/Nausea Albuterol Sulfate 2 puff 11/20/20 18:43 Albuterol Sulfate 90 Mcg 8 Gm Inhaler INHALE RQ4H PRN asthma Amlodipine Besylate 5 mg 11/21/20 09:00 11/26/20 08:53 Amlodipine Besylate 5 Mg Tablet PO 5 mg DAILY SHABBIR Administration Protocol Atorvastatin Calcium 20 mg 11/22/20 09:00 11/26/20 08:54 Atorvastatin Calcium 20 Mg Tablet PO 20 mg DAILY SHABBIR Administration Buprenorphine/Naloxone 2 film 11/21/20 11:00 11/26/20 09:31 Buprenorphine/Naloxone 8/2 Mg Film SUBLINGUAL 2 film 0900 SHABBIR Administration Buprenorphine/Naloxone 1 film 11/21/20 17:00 11/25/20 18:02 Buprenorphine/Naloxone 4/1 Mg Film SUBLINGUAL 1 film 1700 SHABBIR Administration Bupropion HCl 450 mg 11/24/20 08:00 11/26/20 08:53 Bupropion Hcl Xl 150 Mg Tab.Er.24h PO 450 mg DAILY SHABBIR Administration Diphenhydramine HCl 50 mg 11/25/20 11:42 Diphenhydramine Hcl 25 Mg Tablet PO Q6H PRN rash, itching Docusate Sodium 100 mg 11/21/20 20:33 11/25/20 04:51 Docusate Sodium 100 Mg Capsule PO 100 mg BID PRN Administration Constipation Duloxetine HCl 20 mg 11/27/20 09:00 Duloxetine Hcl 20 Mg Capsule. PO DAILY SHABBIR Ferrous Sulfate 324 mg 11/25/20 10:15 11/26/20 08:54 Ferrous Sulfate 324 Mg Tablet. PO 324 mg DAILY SHABBIR Administration Gabapentin 800 mg 11/20/20 21:00 11/26/20 08:53 Gabapentin 400 Mg Capsule PO 800 mg TID SHABBIR Administration Hydroxyzine HCl 25 mg 11/20/20 18:33 11/25/20 12:38 Hydroxyzine Hcl 25 Mg Tablet PO 25 mg Q6H PRN Administration Anxiety Insulin Glargine 70 unit 11/20/20 21:00 11/25/20 20:24 Insulin Glargine,Hum.Rec.Anlog 100 Unit/Ml 10 Ml Vial SUBCUT 70 unit BEDTIME SHABBIR Administration Insulin Human Lispro 0 unit 11/21/20 16:30 11/26/20 08:56 Insulin Lispro 100 Unit/Ml 3 Ml Vial SUBCUT Not Given TIDAC [facility] Protocol Lidocaine 2 patch 11/24/20 14:58 11/26/20 09:31 Lidocaine 4 % Patch Adh..Patch TRANSDERMA 2 patch DAILY PRN Administration leg pain Protocol Lisinopril 20 mg 11/22/20 09:00 11/26/20 08:54 Lisinopril 20 Mg Tablet PO 20 mg DAILY SHABBIR Administration Protocol Magnesium Hydroxide 30 ml 11/20/20 18:33 11/25/20 09:07 Milk Of Magnesia 30 Ml Oral.Susp PO 30 ml DAILY PRN Administration Constipation Metformin HCl 1,000 mg 11/21/20 08:00 11/26/20 08:54 Metformin Hcl 1,000 Mg Tablet PO 1,000 mg BIDWM SHABBIR Administration Multivitamins 1 tab 11/26/20 09:00 11/26/20 08:53 B-Complex With Vitamin C Tablet PO 1 tab DAILY SHABBIR Administration Multivitamins/Vitamin C 1 tab 11/21/20 09:00 11/26/20 08:54 Multivitamin Tablet PO 1 tab DAILY SHABBIR Administration Nicotine 21 mg 11/21/20 14:15 11/26/20 08:53 Nicotine 21 Mg Patch.Td24 TRANSDERMA 21 mg DAILY SHABBIR Administration Omeprazole 20 mg 11/21/20 06:30 11/26/20 08:54 Omeprazole 20 Mg Capsule. PO 20 mg DAILY@0630 SHABBIR Administration Quetiapine Fumarate 150 mg 11/27/20 09:00 Quetiapine Fumarate 50 Mg Tablet PO DAILY SHABBIR Quetiapine Fumarate 200 mg 11/26/20 21:00 Quetiapine Fumarate 200 Mg Tablet PO BEDTIME SHABBIR Sertraline HCl 100 mg 11/21/20 09:00 11/26/20 08:53 Sertraline Hcl 100 Mg Tablet PO 100 mg DAILY SHABBIR Administration Tamsulosin HCl 0.4 mg 11/21/20 09:00 11/26/20 08:53 Tamsulosin Hcl 0.4 Mg Capsule PO 0.4 mg DAILY SHABBIR Administration Trazodone HCl 100 mg 11/20/20 21:00 11/25/20 20:25 Trazodone Hcl 100 Mg Tablet PO 100 mg BEDTIME SHABBIR Administration Vitamin D 25 mcg 11/26/20 09:00 11/26/20 08:54 Cholecalciferol (Vitamin D3) 25 Mcg Tablet PO 25 mcg DAILY SHABBIR Administration Allergies Allergies Allergy/AdvReac Type Severity Reaction Status Date / Time levofloxacin [From Levaquin] Allergy Intermediate rash Verified 11/21/20 20:44 Assessment & Plan Assessment & Plan (1) MDD (major depressive disorder), recurrent, severe, with psychosis: Status: Acute Code(s): F33.3 - Major depressive disorder, recurrent, severe with psychotic symptoms Assessment and Plan: 45 yo male, history of recurrent severe major depression presents with SI, HI, relapse on substances along with being septic with UTI. Plan: Re-establish medication regime-pt reports previous regime has been effective. Assist pt in acceptance to [facility] if a bed is available Continue Suboxone therapy Discontinue Ceftin-Rash on bilateral forearms, stomach, chest. Consult with hospitalist-Varghese giordano Pt would like to see podiatry- will make follow up appt post discharge. 11/24/20: Increase in fear, paranoia today regarding owing people drug money? R/O UTI/ABX delirium, psychosis, or actual concern. Will increases Quetiapine a.m. and p.m. Neuropathic pain increase-? Cymbalta to replace Sertraline, Capsacin, Lidocaine Patch-will discuss further with pt. 11/25/20: Discontinue Ceftin, Nicotine Patch 21 mg; Nutritional Consult-ensure, change to regular diet (weight change 250 to 174 in ~4 months pt reports) 11/26/20: Begin Cymbalta 20 mg daily. Will cross taper with Sertraline. Goal: Improved mgt of depressive sx and assistance with pain mgt. (2) Opiate dependence: Status: Chronic Code(s): F11.20 - Opioid dependence, uncomplicated Assessment and Plan: -Continue Suboxone therapy -Assist pt in acceptance to [facility] if a bed is available (3) BPH (benign prostatic hyperplasia): Status: Acute Code(s): N40.0 - Benign prostatic hyperplasia without lower urinary tract symptoms Assessment and Plan: Continue current regimen and plans (4) Alcohol use: Status: Acute Code(s): Z72.89 - Other problems related to lifestyle Assessment and Plan: No current symptoms of withdrawal. Assessment and Plan: As noted above. Greater than 50% of the session was spent on counseling and/or coordination of care Reason for contiued inpatient stay Substantial Risk for: harm to self, inability to function and rapid decompensation
[2020-11-26 16:12] VITALS: BP 100/62; PULSE 81; TEMP 35.9
[2020-11-26] MEDS: Buprenorphine/Naloxone 4/1 mg FILM 1 FILM SUBLINGUAL (18:26)
[2020-11-26] MEDS: traZODone HCL 100 MG TABLET PO (20:39)
[2020-11-26] MEDS: QUEtiapine Fumarate 200 MG TABLET PO (20:39)
[2020-11-26] MEDS: Insulin Glargine,Hum.rec.anlog 100 UNIT/ML 10 ML VIAL 70 UNIT SUBCUT (20:39)
[2020-11-26 21:00] LABS: Glucose, Whole Blood 140 mg/dL (60-115)
[2020-11-27 06:53] VITALS: BP 111/63; PULSE 68; TEMP 35.9; O2SAT 97
[2020-11-27 07:02] LABS: Glucose, Whole Blood 50 mg/dL (60-115)
[2020-11-27 07:55] LABS: Glucose, Whole Blood 152 mg/dL (60-115)
[2020-11-27] MEDS: Nicotine 21 MG PATCH.TD24 TRANSDERMA (09:00)
[2020-11-27] MEDS: buPROPion HCl XL 150 MG TAB.ER.24H 450 MG PO (09:01)
[2020-11-27] MEDS: Buprenorphine/Naloxone 8/2 mg FILM 2 FILM SUBLINGUAL (09:01)
[2020-11-27] MEDS: DULoxetine HCl 20 MG CAPSULE.DR PO (09:01)
[2020-11-27] MEDS: Sertraline HCL 100 MG TABLET PO (09:01)
[2020-11-27] MEDS: Omeprazole 20 MG CAPSULE.DR PO (09:01)
[2020-11-27] MEDS: Tamsulosin HCL 0.4 MG CAPSULE PO (09:01)
[2020-11-27] MEDS: metFORMIN HCl 1,000 MG TABLET 1000 MG PO ×2 (09:02→18:07)
[2020-11-27] MEDS: Multivitamin TABLET 1 TAB PO (09:02)
[2020-11-27] MEDS: Cholecalciferol (Vitamin D3) 25 MCG TABLET PO (09:02)
[2020-11-27] MEDS: Atorvastatin Calcium 20 MG TABLET PO (09:02)
[2020-11-27] MEDS: Ferrous Sulfate 324 MG TABLET.DR PO (09:02)
[2020-11-27] MEDS: QUEtiapine Fumarate 50 MG TABLET 150 MG PO (09:02)
[2020-11-27] MEDS: Gabapentin 400 MG CAPSULE 800 MG PO ×3 (09:02→20:42)
[2020-11-27 09:03] VITALS: BP 112/69; PULSE 80
[2020-11-27] MEDS: lisinopriL 20 MG TABLET PO (09:03)
[2020-11-27] MEDS: amLODIPine Besylate 5 MG TABLET PO (09:03)
[2020-11-27] MEDS: Lidocaine 4 % Patch ADH..PATCH 2 PATCH TRANSDERMA (09:28)
[2020-11-27] MEDS: Acetaminophen 325 MG TABLET 650 MG PO (09:42)
--- NOTE | 2020-11-27 11:52 | MHC.CLN ---
Addendum entered by Belkis Gomez, MARIA T 11/27/20 11:58: REVIEWED LABS 11/26/20 ALBUMIN 3.5 WNL PT SHOWS NO S/S MALNUTRITION AT THIS TIME Original Note: F/U HT 71 WT 174# IBW 172#+/-10% PT IS 101% IBW INDICATES ADEQUATE WT FOR HT PT REPORTING WT LOSS 250-174 IN 4 MONTHS WT HISTORY FOLLOWS FROM PREVIOUS ADMISSIONS: 11/26/20 174# 11/05/20 374# 06/24/20 200# 06/24/20 194# PT TRIGGERS FOR POSSIBLE 10-13% SIGNIFICANT WT LOSS X 5 MONTHS BASED ON PREVIOUS ADMISSION FROM 06/24/20 PT ALSO REPORTS SUBSTANCE ABUSE AND HOMELESSNESS AND MAY BE CONTRIBUTOR TO RECENT WT LOSS DIET RX: REGULAR-PT REQUESTING REGULAR DIET FOR INCREASE IN VARIETY PT IS A DIABETIC, BUT DOES NOT WANT TO FOLLOW DM DIET AT THIS TIME 8OZ GLUCERNA TID IN PLACE PER MD PROVIDES AN ADDITIONAL [id number], 30G PROTEIN PT IS VISITED BY [facility] DAILY WHO REVIEWS MENU AND TAKES FOOD ORDERS FOR INCREASE IN VARIETY NO PO INTAKE RECORDS -MONITOR CLOSELY
[2020-11-27 12:39] LABS: Glucose, Whole Blood 169 mg/dL (60-115)
[2020-11-27] MEDS: Insulin Lispro 100 UNIT/ML 3 ML VIAL SUBCUT (12:44)
--- NOTE | 2020-11-27 16:08 | HO.PSYCHPN ---
Subjective Subjective Date of Service: 11/27/20 Reason For Visit: depression, polysubstance use disorder Subjective Notes: Conditional Voluntary Healthcare Proxy: No Guardianship: No Medical Problems Affecting Mental Status: Yes (DM. Hypoglycemic this a.m. POC 59) Interim History: Reports he is tolerating Cymbalta without SE. Discussed hypoglycemic episode this a.m. Nutritional consult requested as pt reports he needs more choices on his menu due to food preferences and intolerances. Glucerna ordered with meals tid as pt reports he will utilize this supplement. Pt's father has sent a letter asking that pt be placed out of state in a rehab setting due to pt owing money to others and feeling his safety is being threatened. Marko HIRSCH has worked with pt since admission on program alternatives and has worked out an option for pt with [facility] in fall that pt may be able to work with. Medication Compliance: Yes Side effects from medications: No (denies) Attending Groups: No Review of Systems Acute medical concerns: No Medical Review of Systems: unchanged Review of Systems Reports behavioral changes Psychiatric: Reports anxiety, Reports behavioral changes, Reports change in appetite, Reports depression, Reports difficulty concentrating, Reports anhedonia, Reports paranoia and Reports suicidal ideation (denies at this time) Mental Status Exam Mental Status Exam Patient Appearance: Appropriate Patient Orientation: Person, Place, Time and Situation Level of Consciousness: Alert Patient Behavior: Talkative, Cooperative, Fearful, Distractible and Good Eye Contact Mood Description: Anxious and Apprehensive Affect Description: Anxious and Apprehensive Patient Cognition Impaired: No Ability to Follow Directions: Good Speech Pattern: Spontaneous Speech and Soft-Spoken Memory Description: Episodic Impaired Hallucinations: None Delusions: Paranoid Ideation (fear of others wanting to harm him due to his report that he owes money to many people) Thought Process: Distracted, Rumination and Goal Oriented Thought Content: positive for [place], positive for Circumstantial, positive for Goal Oriented, positive for Perseveration and positive for Suicidal Ideation (denies) Depressive Symptoms: Increased Anxiety, Diff. Making Decisions, Changes in Appetite, Muscle Pain, Feelings of Guilt, Unhappiness, Thoughts of /Suicide (denies), Low Self Esteem, Loss of Energy and Difficulty Concentrating Abnormal Motor Activity Signs and Symptoms: Restlessness Judgement: Fair Diagnostics Vital Signs (24Hr): Vital Signs - 24 hr 11/26/20 16:12 11/27/20 06:53 11/27/20 09:03 Temperature 96.7 F L 96.7 F L Pulse Rate 81 68 80 Blood Pressure 100/62 111/63 112/69 Pulse Oximetry 97 Body Mass Index 24.3 Labs Results: 11/26/20 08:07 Labs: Laboratory Results - last 48 hr 11/25/20 11/25/20 11/26/20 17:37 20:31 06:21 Sodium Potassium Chloride Carbon Dioxide Anion Gap BUN Creatinine Estim Creat Clear Calc Estimated GFR POC Glucose 94 141 H 88 Random Glucose Calcium Total Bilirubin AST ALT Alkaline Phosphatase Total Protein Albumin 11/26/20 11/26/20 11/27/20 08:07 20:55 06:46 Sodium 140 Potassium 5.0 D Chloride 99 Carbon Dioxide 36 H Anion Gap 10 L BUN 10 Creatinine 0.79 Estim Creat Clear Calc 128.4 Estimated GFR > 60 POC Glucose 140 H 50 L* Random Glucose 68 D Calcium 9.1 D Total Bilirubin 0.2 AST 56 H ALT 44 H Alkaline Phosphatase 169 H D Total Protein 7.7 Albumin 3.5 11/27/20 11/27/20 07:50 12:33 Sodium Potassium Chloride Carbon Dioxide Anion Gap BUN Creatinine Estim Creat Clear Calc Estimated GFR POC Glucose 152 H 169 H Random Glucose Calcium Total Bilirubin AST ALT Alkaline Phosphatase Total Protein Albumin Medications Medications Current Medications Generic Name Dose Route Start Last Admin Trade Name Freq PRN Reason Stop Dose Admin Acetaminophen 650 mg 11/20/20 18:33 11/27/20 09:42 Acetaminophen 325 Mg Tablet PO 650 mg Q6H PRN Administration Headache/Pain Mild Scale (1-3) Al Hydroxide/Mg Hydroxide 30 ml 11/20/20 18:33 Magnesium Hydrox/Alum Hydrox 30 Ml Oral.Susp PO Q6H PRN Heartburn/Nausea Albuterol Sulfate 2 puff 11/20/20 18:43 Albuterol Sulfate 90 Mcg 8 Gm Inhaler INHALE RQ4H PRN asthma Amlodipine Besylate 5 mg 11/21/20 09:00 11/27/20 09:03 Amlodipine Besylate 5 Mg Tablet PO 5 mg DAILY SHABBIR Administration Protocol Atorvastatin Calcium 20 mg 11/22/20 09:00 11/27/20 09:02 Atorvastatin Calcium 20 Mg Tablet PO 20 mg DAILY SHABBIR Administration Buprenorphine/Naloxone 2 film 11/21/20 11:00 11/27/20 09:01 Buprenorphine/Naloxone 8/2 Mg Film SUBLINGUAL 2 film 0900 SHABBIR Administration Buprenorphine/Naloxone 1 film 11/21/20 17:00 11/26/20 18:26 Buprenorphine/Naloxone 4/1 Mg Film SUBLINGUAL 1 film 1700 SHABBIR Administration Bupropion HCl 450 mg 11/24/20 08:00 11/27/20 09:01 Bupropion Hcl Xl 150 Mg Tab.Er.24h PO 450 mg DAILY SHABBIR Administration Diphenhydramine HCl 50 mg 11/25/20 11:42 Diphenhydramine Hcl 25 Mg Tablet PO Q6H PRN rash, itching Docusate Sodium 100 mg 11/21/20 20:33 11/25/20 04:51 Docusate Sodium 100 Mg Capsule PO 100 mg BID PRN Administration Constipation Duloxetine HCl 20 mg 11/27/20 09:00 11/27/20 09:01 Duloxetine Hcl 20 Mg Capsule. PO 20 mg DAILY SHABBIR Administration Ferrous Sulfate 324 mg 11/25/20 10:15 11/27/20 09:02 Ferrous Sulfate 324 Mg Tablet. PO 324 mg DAILY SHABBIR Administration Gabapentin 800 mg 11/20/20 21:00 11/27/20 14:25 Gabapentin 400 Mg Capsule PO 800 mg TID SHABBIR Administration Hydroxyzine HCl 25 mg 11/20/20 18:33 11/25/20 12:38 Hydroxyzine Hcl 25 Mg Tablet PO 25 mg Q6H PRN Administration Anxiety Insulin Glargine 70 unit 11/20/20 21:00 11/26/20 20:39 Insulin Glargine,Hum.Rec.Anlog 100 Unit/Ml 10 Ml Vial SUBCUT 70 unit BEDTIME SHABBIR Administration Insulin Human Lispro 0 unit 11/21/20 16:30 11/27/20 12:44 Insulin Lispro 100 Unit/Ml 3 Ml Vial SUBCUT 2 unit TIDAC SHABBIR Administration Protocol Lidocaine 2 patch 11/24/20 14:58 11/27/20 09:28 Lidocaine 4 % Patch Adh..Patch TRANSDERMA 2 patch DAILY PRN Administration leg pain Protocol Lisinopril 20 mg 11/22/20 09:00 11/27/20 09:03 Lisinopril 20 Mg Tablet PO 20 mg DAILY SHABBIR Administration Protocol Magnesium Hydroxide 30 ml 11/20/20 18:33 11/25/20 09:07 Milk Of Magnesia 30 Ml Oral.Susp PO 30 ml DAILY PRN Administration Constipation Metformin HCl 1,000 mg 11/21/20 08:00 11/27/20 09:02 Metformin Hcl 1,000 Mg Tablet PO 1,000 mg BIDWM SHABBIR Administration Multivitamins 1 tab 11/26/20 09:00 11/27/20 09:01 B-Complex With Vitamin C Tablet PO 1 tab DAILY SHABBIR Administration Multivitamins/Vitamin C 1 tab 11/21/20 09:00 11/27/20 09:02 Multivitamin Tablet PO 1 tab DAILY SHABBIR Administration Nicotine 21 mg 11/21/20 14:15 11/27/20 09:00 Nicotine 21 Mg Patch.Td24 TRANSDERMA 21 mg DAILY SHABBIR Administration Omeprazole 20 mg 11/21/20 06:30 11/27/20 09:01 Omeprazole 20 Mg Capsule.Dr PO 20 mg DAILY@0630 SHABBIR Administration Quetiapine Fumarate 150 mg 11/27/20 09:00 11/27/20 09:02 Quetiapine Fumarate 50 Mg Tablet PO 150 mg DAILY SHABBIR Administration Quetiapine Fumarate 200 mg 11/26/20 21:00 11/26/20 20:39 Quetiapine Fumarate 200 Mg Tablet PO 200 mg BEDTIME SHABBIR Administration Sertraline HCl 100 mg 11/21/20 09:00 11/27/20 09:01 Sertraline Hcl 100 Mg Tablet PO 100 mg DAILY SHABBIR Administration Tamsulosin HCl 0.4 mg 11/21/20 09:00 11/27/20 09:01 Tamsulosin Hcl 0.4 Mg Capsule PO 0.4 mg DAILY SHABBIR Administration Trazodone HCl 100 mg 11/20/20 21:00 11/26/20 20:39 Trazodone Hcl 100 Mg Tablet PO 100 mg BEDTIME SHABBIR Administration Vitamin D 25 mcg 11/26/20 09:00 11/27/20 09:02 Cholecalciferol (Vitamin D3) 25 Mcg Tablet PO 25 mcg DAILY SHABBIR Administration Allergies Allergies Allergy/AdvReac Type Severity Reaction Status Date / Time levofloxacin [From Levaquin] Allergy Intermediate rash Verified 11/21/20 20:44 Assessment & Plan Assessment & Plan (1) MDD (major depressive disorder), recurrent, severe, with psychosis: Status: Acute Code(s): F33.3 - Major depressive disorder, recurrent, severe with psychotic symptoms Assessment and Plan: 45 yo male, history of recurrent severe major depression presents with SI, HI, relapse on substances along with being septic with UTI. Plan: Re-establish medication regime-pt reports previous regime has been effective. Assist pt in acceptance to [facility] if a bed is available Continue Suboxone therapy Discontinue Ceftin-Rash on bilateral forearms, stomach, chest. Consult with hospitalist-Varghese giordano Pt would like to see podiatry- will make follow up appt post discharge. 11/24/20: Increase in fear, paranoia today regarding owing people drug money? R/O UTI/ABX delirium, psychosis, or actual concern. Will increases Quetiapine a.m. and p.m. Neuropathic pain increase-? Cymbalta to replace Sertraline, Capsacin, Lidocaine Patch-will discuss further with pt. 11/25/20: Discontinue Ceftin, Nicotine Patch 21 mg; Nutritional Consult-ensure, change to regular diet (weight change 250 to 174 in ~4 months pt reports) 11/26/20: Begin Cymbalta 20 mg daily. Will cross taper with Sertraline. Goal: Improved mgt of depressive sx and assistance with pain mgt. 11/27/20: Decrease Sertraline to 75 mg daily, as pt is tolerating Cymbalta. Possible placement with [facility]. Re-ordered nutrition eval/Glucerna tid as pt reports he does not have enough choices for food on current plan. POC this a.m. 59. (2) Opiate dependence: Status: Chronic Code(s): F11.20 - Opioid dependence, uncomplicated Assessment and Plan: -Continue Suboxone therapy -Assist pt in acceptance to [facility] if a bed is available (3) BPH (benign prostatic hyperplasia): Status: Acute Code(s): N40.0 - Benign prostatic hyperplasia without lower urinary tract symptoms Assessment and Plan: Continue current regimen and plans (4) Alcohol use: Status: Acute Code(s): Z72.89 - Other problems related to lifestyle Assessment and Plan: No current symptoms of withdrawal. Assessment and Plan: As noted above. Greater than 50% of the session was spent on counseling and/or coordination of care Reason for contiued inpatient stay Substantial Risk for: harm to self, inability to function, rapid decompensation and med/psych decompensation
[2020-11-27 16:30] VITALS: BMI 24.4
[2020-11-27 17:20] VITALS: BP 116/56; PULSE 69; TEMP 36.8
[2020-11-27] MEDS: Buprenorphine/Naloxone 4/1 mg FILM 1 FILM SUBLINGUAL (18:07)
[2020-11-27] MEDS: traZODone HCL 100 MG TABLET PO (20:42)
[2020-11-27] MEDS: Insulin Glargine,Hum.rec.anlog 100 UNIT/ML 10 ML VIAL 70 UNIT SUBCUT (20:42)
[2020-11-27] MEDS: QUEtiapine Fumarate 200 MG TABLET PO (20:42)
[2020-11-27 21:21] LABS: Glucose, Whole Blood 134 mg/dL (60-115)
[2020-11-27 21:21] LABS: Glucose, Whole Blood 116 mg/dL (60-115)
[2020-11-28 06:00] VITALS: BP 95/50; PULSE 73; RESP 16; TEMP 36.2; O2SAT 96
[2020-11-28 06:29] LABS: Glucose, Whole Blood 95 mg/dL (60-115)
[2020-11-28] MEDS: metFORMIN HCl 1,000 MG TABLET 1000 MG PO (08:47)
[2020-11-28] MEDS: Cholecalciferol (Vitamin D3) 25 MCG TABLET PO (08:47)
[2020-11-28] MEDS: QUEtiapine Fumarate 50 MG TABLET 150 MG PO (08:48)
[2020-11-28] MEDS: Gabapentin 400 MG CAPSULE 800 MG PO ×3 (08:48→20:51)
[2020-11-28 08:49] VITALS: BP 121/66; PULSE 79
[2020-11-28] MEDS: amLODIPine Besylate 5 MG TABLET PO (08:49)
[2020-11-28] MEDS: buPROPion HCl XL 150 MG TAB.ER.24H 450 MG PO (08:50)
[2020-11-28] MEDS: Ferrous Sulfate 324 MG TABLET.DR PO (08:50)
[2020-11-28] MEDS: Multivitamin TABLET 1 TAB PO (08:50)
[2020-11-28] MEDS: DULoxetine HCl 20 MG CAPSULE.DR PO (08:51)
[2020-11-28] MEDS: Omeprazole 20 MG CAPSULE.DR PO (08:51)
[2020-11-28 08:52] VITALS: BP 121/66; PULSE 66
[2020-11-28] MEDS: Atorvastatin Calcium 20 MG TABLET PO (08:52)
[2020-11-28] MEDS: Sertraline HCL 25 MG TABLET 75 MG PO (08:52)
[2020-11-28] MEDS: lisinopriL 20 MG TABLET PO (08:52)
[2020-11-28] MEDS: Tamsulosin HCL 0.4 MG CAPSULE PO (08:52)
[2020-11-28] MEDS: Nicotine 21 MG PATCH.TD24 TRANSDERMA (09:56)
[2020-11-28] MEDS: Buprenorphine/Naloxone 8/2 mg FILM 2 FILM SUBLINGUAL (09:56)
[2020-11-28] MEDS: Acetaminophen 325 MG TABLET 650 MG PO (12:09)
[2020-11-28 12:21] LABS: Glucose, Whole Blood 147 mg/dL (60-115)
[2020-11-28] MEDS: Lidocaine 4 % Patch ADH..PATCH 2 PATCH TRANSDERMA (14:10)
--- NOTE | 2020-11-28 16:20 | HO.PSYCHPN ---
Subjective Subjective Date of Service: 11/28/20 Reason For Visit: depression, polysubstance use disorder Subjective Notes: Conditional Voluntary Healthcare Proxy: No Guardianship: No Medical Problems Affecting Mental Status: No Interim History: I am very grateful to my nephrology social worker. He found me a place to go after here where I can be safe. Pt reports he is feeling some relief of the stress that he is in danger locally due to having to owe money to others and having a possible [facility] option [place]. Medication Compliance: Yes Side effects from medications: No Attending Groups: Intermittent Review of Systems Acute medical concerns: No Medical Review of Systems: unchanged Review of Systems Reports behavioral changes Psychiatric: Reports anxiety, Reports behavioral changes, Reports depression, Reports difficulty concentrating, Reports hopelessness, Reports anhedonia, Reports paranoia and Reports suicidal ideation (denies) Mental Status Exam Mental Status Exam Patient Appearance: Appropriate Patient Orientation: Person, Place, Time and Situation Level of Consciousness: Alert Patient Behavior: Talkative, Cooperative, Fearful, Distractible and Good Eye Contact Mood Description: Anxious and Apprehensive Affect Description: Anxious and Apprehensive Patient Cognition Impaired: No Ability to Follow Directions: Good Speech Pattern: Spontaneous Speech and Soft-Spoken Memory Description: Episodic Impaired Hallucinations: None Delusions: Paranoid Ideation (fear of others wanting to harm him due to his report that he owes money to many people) Thought Process: Distracted, Rumination and Goal Oriented Thought Content: positive for [place], positive for Circumstantial, positive for Goal Oriented, positive for Perseveration and positive for Suicidal Ideation (denies) Depressive Symptoms: Increased Anxiety, Diff. Making Decisions, Changes in Appetite, Muscle Pain, Feelings of Guilt, Unhappiness, Thoughts of /Suicide (denies), Low Self Esteem, Loss of Energy and Difficulty Concentrating Abnormal Motor Activity Signs and Symptoms: Restlessness Judgement: Fair Diagnostics Vital Signs (24Hr): Vital Signs - 24 hr 11/27/20 17:20 11/28/20 06:00 11/28/20 08:49 Temperature 98.2 F 97.1 F Pulse Rate 69 73 79 Respiratory Rate 16 Blood Pressure 116/56 L 95/50 L 121/66 Pulse Oximetry 96 11/28/20 08:52 Temperature Pulse Rate 66 Respiratory Rate Blood Pressure 121/66 Pulse Oximetry Body Mass Index 24.4 Labs Results: 11/26/20 08:07 Labs: Laboratory Results - last 48 hr 11/26/20 11/27/20 11/27/20 20:55 06:46 07:50 POC Glucose 140 H 50 L* 152 H 11/27/20 11/27/20 11/27/20 12:33 16:55 20:47 POC Glucose 169 H 116 H 134 H 11/28/20 11/28/20 06:23 12:11 POC Glucose 95 147 H Medications Medications Current Medications Generic Name Dose Route Start Last Admin Trade Name Freq PRN Reason Stop Dose Admin Acetaminophen 650 mg 11/20/20 18:33 11/28/20 12:09 Acetaminophen 325 Mg Tablet PO 650 mg Q6H PRN Administration Headache/Pain Mild Scale (1-3) Al Hydroxide/Mg Hydroxide 30 ml 11/20/20 18:33 Magnesium Hydrox/Alum Hydrox 30 Ml Oral.Susp PO Q6H PRN Heartburn/Nausea Albuterol Sulfate 2 puff 11/20/20 18:43 Albuterol Sulfate 90 Mcg 8 Gm Inhaler INHALE RQ4H PRN asthma Amlodipine Besylate 5 mg 11/21/20 09:00 11/28/20 08:49 Amlodipine Besylate 5 Mg Tablet PO 5 mg DAILY SHABBIR Administration Protocol Atorvastatin Calcium 20 mg 11/22/20 09:00 11/28/20 08:52 Atorvastatin Calcium 20 Mg Tablet PO 20 mg DAILY SHABBIR Administration Buprenorphine/Naloxone 2 film 11/21/20 11:00 11/28/20 09:56 Buprenorphine/Naloxone 8/2 Mg Film SUBLINGUAL 2 film 0900 SHABBIR Administration Buprenorphine/Naloxone 1 film 11/21/20 17:00 11/27/20 18:07 Buprenorphine/Naloxone 4/1 Mg Film SUBLINGUAL 1 film 1700 SHABBIR Administration Bupropion HCl 450 mg 11/24/20 08:00 11/28/20 08:50 Bupropion Hcl Xl 150 Mg Tab.Er.24h PO 450 mg DAILY SHABBIR Administration Diphenhydramine HCl 50 mg 11/25/20 11:42 Diphenhydramine Hcl 25 Mg Tablet PO Q6H PRN rash, itching Docusate Sodium 100 mg 11/21/20 20:33 11/25/20 04:51 Docusate Sodium 100 Mg Capsule PO 100 mg BID PRN Administration Constipation Duloxetine HCl 20 mg 11/27/20 09:00 11/28/20 08:51 Duloxetine Hcl 20 Mg Capsule. PO 20 mg DAILY SHABBIR Administration Ferrous Sulfate 324 mg 11/25/20 10:15 11/28/20 08:50 Ferrous Sulfate 324 Mg Tablet. PO 324 mg DAILY SHABBIR Administration Gabapentin 800 mg 11/20/20 21:00 11/28/20 14:05 Gabapentin 400 Mg Capsule PO 800 mg TID SHABBIR Administration Hydroxyzine HCl 25 mg 11/20/20 18:33 11/25/20 12:38 Hydroxyzine Hcl 25 Mg Tablet PO 25 mg Q6H PRN Administration Anxiety Insulin Glargine 70 unit 11/20/20 21:00 11/27/20 20:42 Insulin Glargine,Hum.Rec.Anlog 100 Unit/Ml 10 Ml Vial SUBCUT 70 unit BEDTIME SHABBIR Administration Insulin Human Lispro 0 unit 11/21/20 16:30 11/28/20 12:15 Insulin Lispro 100 Unit/Ml 3 Ml Vial SUBCUT Not Given TIDAC [facility] Protocol Lidocaine 2 patch 11/24/20 14:58 11/28/20 14:10 Lidocaine 4 % Patch Adh..Patch TRANSDERMA 2 patch DAILY PRN Administration leg pain Protocol Lisinopril 20 mg 11/22/20 09:00 11/28/20 08:52 Lisinopril 20 Mg Tablet PO 20 mg DAILY SHABBIR Administration Protocol Magnesium Hydroxide 30 ml 11/20/20 18:33 11/25/20 09:07 Milk Of Magnesia 30 Ml Oral.Susp PO 30 ml DAILY PRN Administration Constipation Metformin HCl 1,000 mg 11/21/20 08:00 11/28/20 08:47 Metformin Hcl 1,000 Mg Tablet PO 1,000 mg BIDWM SHABBIR Administration Multivitamins 1 tab 11/26/20 09:00 11/28/20 08:49 B-Complex With Vitamin C Tablet PO 1 tab DAILY SHABBIR Administration Multivitamins/Vitamin C 1 tab 11/21/20 09:00 11/28/20 08:50 Multivitamin Tablet PO 1 tab DAILY SHABBIR Administration Nicotine 21 mg 11/21/20 14:15 11/28/20 09:56 Nicotine 21 Mg Patch.Td24 TRANSDERMA 21 mg DAILY SHABBIR Administration Omeprazole 20 mg 11/21/20 06:30 11/28/20 08:51 Omeprazole 20 Mg Capsule. PO 20 mg DAILY@0630 SHABBIR Administration Quetiapine Fumarate 150 mg 11/27/20 09:00 11/28/20 08:48 Quetiapine Fumarate 50 Mg Tablet PO 150 mg DAILY SHABBIR Administration Quetiapine Fumarate 200 mg 11/26/20 21:00 11/27/20 20:42 Quetiapine Fumarate 200 Mg Tablet PO 200 mg BEDTIME SHABBIR Administration Sertraline HCl 75 mg 11/28/20 09:00 11/28/20 08:52 Sertraline Hcl 25 Mg Tablet PO 75 mg DAILY SHABBIR Administration Tamsulosin HCl 0.4 mg 11/21/20 09:00 11/28/20 08:52 Tamsulosin Hcl 0.4 Mg Capsule PO 0.4 mg DAILY SHABBIR Administration Trazodone HCl 100 mg 11/20/20 21:00 11/27/20 20:42 Trazodone Hcl 100 Mg Tablet PO 100 mg BEDTIME SHABBIR Administration Vitamin D 25 mcg 11/26/20 09:00 11/28/20 08:47 Cholecalciferol (Vitamin D3) 25 Mcg Tablet PO 25 mcg DAILY SHABBIR Administration Allergies Allergies Allergy/AdvReac Type Severity Reaction Status Date / Time levofloxacin [From Levaquin] Allergy Intermediate rash Verified 11/21/20 20:44 Assessment & Plan Assessment & Plan (1) MDD (major depressive disorder), recurrent, severe, with psychosis: Status: Acute Code(s): F33.3 - Major depressive disorder, recurrent, severe with psychotic symptoms Assessment and Plan: 45 yo male, history of recurrent severe major depression presents with SI, HI, relapse on substances along with being septic with UTI. Plan: Re-establish medication regime-pt reports previous regime has been effective. Assist pt in acceptance to [facility] if a bed is available Continue Suboxone therapy Discontinue Ceftin-Rash on bilateral forearms, stomach, chest. Consult with hospitalist-Varghese giordano Pt would like to see podiatry- will make follow up appt post discharge. 11/24/20: Increase in fear, paranoia today regarding owing people drug money? R/O UTI/ABX delirium, psychosis, or actual concern. Will increases Quetiapine a.m. and p.m. Neuropathic pain increase-? Cymbalta to replace Sertraline, Capsacin, Lidocaine Patch-will discuss further with pt. 11/25/20: Discontinue Ceftin, Nicotine Patch 21 mg; Nutritional Consult-ensure, change to regular diet (weight change 250 to 174 in ~4 months pt reports) 11/26/20: Begin Cymbalta 20 mg daily. Will cross taper with Sertraline. Goal: Improved mgt of depressive sx and assistance with pain mgt. 11/27/20: Decrease Sertraline to 75 mg daily, as pt is tolerating Cymbalta. Possible placement with [facility]. Re-ordered nutrition eval/Glucerna tid as pt reports he does not have enough choices for food on current plan. POC this a.m. 59. 11/28/20: Continue current regime at this time. [facility] admission next week if a bed becomes available. (2) Opiate dependence: Status: Chronic Code(s): F11.20 - Opioid dependence, uncomplicated Assessment and Plan: -Continue Suboxone therapy -Assist pt in acceptance to [facility] if a bed is available (3) BPH (benign prostatic hyperplasia): Status: Acute Code(s): N40.0 - Benign prostatic hyperplasia without lower urinary tract symptoms Assessment and Plan: Continue current regimen and plans (4) Alcohol use: Status: Acute Code(s): Z72.89 - Other problems related to lifestyle Assessment and Plan: No current symptoms of withdrawal. Assessment and Plan: As noted above. Greater than 50% of the session was spent on counseling and/or coordination of care Reason for contiued inpatient stay Substantial Risk for: harm to self, inability to function and rapid decompensation
[2020-11-28 16:22] VITALS: BP 99/52; PULSE 85; TEMP 36.9
[2020-11-28 16:43] LABS: Glucose, Whole Blood 158 mg/dL (60-115)
[2020-11-28 20:44] LABS: Glucose, Whole Blood 228 mg/dL (60-115)
[2020-11-28] MEDS: Insulin Glargine,Hum.rec.anlog 100 UNIT/ML 10 ML VIAL 70 UNIT SUBCUT (20:51)
[2020-11-28] MEDS: traZODone HCL 100 MG TABLET PO (20:52)
[2020-11-28] MEDS: QUEtiapine Fumarate 200 MG TABLET PO (20:52)
[2020-11-29 06:00] VITALS: BP 102/57; PULSE 62; RESP 16; TEMP 36.2; O2SAT 62
[2020-11-29] MEDS: Omeprazole 20 MG CAPSULE.DR PO (06:46)
[2020-11-29 07:03] LABS: Glucose, Whole Blood 89 mg/dL (60-115)
[2020-11-29] MEDS: DULoxetine HCl 20 MG CAPSULE.DR PO (08:29)
[2020-11-29 08:30] VITALS: BP 127/64; PULSE 76
[2020-11-29] MEDS: Gabapentin 400 MG CAPSULE 800 MG PO ×3 (08:30→20:02)
[2020-11-29] MEDS: QUEtiapine Fumarate 50 MG TABLET 150 MG PO (08:30)
[2020-11-29] MEDS: Tamsulosin HCL 0.4 MG CAPSULE PO (08:30)
[2020-11-29] MEDS: lisinopriL 20 MG TABLET PO (08:30)
[2020-11-29] MEDS: buPROPion HCl XL 150 MG TAB.ER.24H 450 MG PO (08:31)
[2020-11-29] MEDS: Nicotine 21 MG PATCH.TD24 TRANSDERMA (08:31)
[2020-11-29] MEDS: metFORMIN HCl 1,000 MG TABLET 1000 MG PO ×2 (08:31→16:44)
[2020-11-29] MEDS: Atorvastatin Calcium 20 MG TABLET PO (08:32)
[2020-11-29] MEDS: Ferrous Sulfate 324 MG TABLET.DR PO (08:32)
[2020-11-29 08:33] VITALS: BP 127/64; PULSE 76
[2020-11-29] MEDS: amLODIPine Besylate 5 MG TABLET PO (08:33)
[2020-11-29] MEDS: Cholecalciferol (Vitamin D3) 25 MCG TABLET PO (08:33)
[2020-11-29] MEDS: Multivitamin TABLET 1 TAB PO (08:33)
[2020-11-29] MEDS: Sertraline HCL 25 MG TABLET 75 MG PO (08:33)
[2020-11-29] MEDS: Buprenorphine/Naloxone 8/2 mg FILM 2 FILM SUBLINGUAL (09:26)
[2020-11-29] MEDS: Lidocaine 4 % Patch ADH..PATCH 2 PATCH TRANSDERMA (09:27)
[2020-11-29 12:12] LABS: Glucose, Whole Blood 132 mg/dL (60-115)
[2020-11-29] MEDS: Buprenorphine/Naloxone 4/1 mg FILM 1 FILM SUBLINGUAL (16:44)
[2020-11-29 17:44] LABS: Glucose, Whole Blood 148 mg/dL (60-115)
[2020-11-29 18:00] VITALS: BP 127/84; PULSE 87; TEMP 36.7
[2020-11-29] MEDS: QUEtiapine Fumarate 200 MG TABLET PO (20:02)
[2020-11-29] MEDS: traZODone HCL 100 MG TABLET PO (20:03)
[2020-11-29] MEDS: Insulin Glargine,Hum.rec.anlog 100 UNIT/ML 10 ML VIAL 70 UNIT SUBCUT (20:03)
[2020-11-29 20:04] LABS: Glucose, Whole Blood 101 mg/dL (60-115)
--- NOTE | 2020-11-29 21:47 | P.PNPSI_ITS ---
Subjective Subjective Date of Service: 11/29/20 Reason For Visit: depression, polysubstance use disorder Subjective Notes: Conditional Voluntary Medical Problems Affecting Mental Status: No Interim History: I am very grateful to my social media director. He found me a place to go after here where I can be safe. Pt reports he is feeling some relief of the stress that he is in danger locally due to having to owe money to others and having a possible [facility] option [place]. Medication Compliance: Yes Side effects from medications: No Attending Groups: Intermittent Review of Systems Acute medical concerns: No Medical Review of Systems: unchanged Review of Systems Review of Systems Yes all other systems are reviewed and are negative Constitutional: Reports as per HPI Genitourinary: Reports difficulty urinating, Reports dysuria, Reports urinary hesitancy and Reports other (currently being treated for UTI/sepsis) Skin/Breast: Reports pruritus and Reports rash (forearms, stomach, chest. Plan: Ceftin D/C, Benadryl prn per hospitalist ) Reports behavioral changes Psychiatric: Reports abnormal sleep pattern, Reports anxiety, Reports behavioral changes, Reports change in appetite, Reports depression, Reports difficulty concentrating, Reports hopelessness, Reports irritability, Reports anhedonia, Reports panic attacks, Reports paranoia, Reports homicidal ideation (not currently-prior to admission) and Reports suicidal ideation (denies) Mental Status Exam Mental Status Exam Patient Appearance: Appropriate Patient Orientation: Person, Place, Time and Situation Level of Consciousness: Alert Patient Behavior: Cooperative, Fearful, Distractible and Good Eye Contact Mood Description: Anxious and Apprehensive Affect Description: Anxious and Apprehensive Patient Cognition Impaired: No Ability to Follow Directions: Good Speech Pattern: Spontaneous Speech and Soft-Spoken Memory Description: Episodic Impaired Judgement: Fair Diagnostics Vital Signs (24Hr): Vital Signs - 24 hr 11/29/20 06:00 11/29/20 08:30 11/29/20 08:33 Temperature 97.1 F Pulse Rate 62 76 76 Respiratory Rate 16 Blood Pressure 102/57 L 127/64 127/64 Pulse Oximetry 62 L 11/29/20 18:00 Temperature 98.1 F Pulse Rate 87 Respiratory Rate Blood Pressure 127/84 Pulse Oximetry Body Mass Index 24.4 Labs Results: 11/26/20 08:07 Labs: Laboratory Results - last 48 hr 08/20/21 08/20/21 08/20/21 06:23 12:11 16:35 POC Glucose 95 147 H 158 H 11/28/20 11/29/20 08 20:40 06:50 12:08 POC Glucose 228 H 89 132 H 11/29/20 11/29/20 17:40 20:01 POC Glucose 148 H 101 Medications Medications Current Medications Generic Name Dose Route Start Last Admin Trade Name Freq PRN Reason Stop Dose Admin Acetaminophen 650 mg 11/20/20 18:33 11/28/20 12:09 Acetaminophen 325 Mg Tablet PO 650 mg Q6H PRN Administration Headache/Pain Mild Scale (1-3) Al Hydroxide/Mg Hydroxide 30 ml 11/20/20 18:33 Magnesium Hydrox/Alum Hydrox 30 Ml Oral.Susp PO Q6H PRN Heartburn/Nausea Albuterol Sulfate 2 puff 11/20/20 18:43 Albuterol Sulfate 90 Mcg 8 Gm Inhaler INHALE RQ4H PRN asthma Amlodipine Besylate 5 mg 11/21/20 09:00 11/29/20 08:33 Amlodipine Besylate 5 Mg Tablet PO 5 mg DAILY SHABBIR Administration Protocol Atorvastatin Calcium 20 mg 11/22/20 09:00 11/29/20 08:32 Atorvastatin Calcium 20 Mg Tablet PO 20 mg DAILY SHABBIR Administration Buprenorphine/Naloxone 2 film 11/21/20 11:00 11/29/20 09:26 Buprenorphine/Naloxone 8/2 Mg Film SUBLINGUAL 2 film 0900 SHABBIR Administration Buprenorphine/Naloxone 1 film 11/21/20 17:00 11/29/20 16:44 Buprenorphine/Naloxone 4/1 Mg Film SUBLINGUAL 1 film 1700 SHABBIR Administration Bupropion HCl 450 mg 11/24/20 08:00 11/29/20 08:31 Bupropion Hcl Xl 150 Mg Tab.Er.24h PO 450 mg DAILY SHABBIR Administration Diphenhydramine HCl 50 mg 11/25/20 11:42 Diphenhydramine Hcl 25 Mg Tablet PO Q6H PRN rash, itching Docusate Sodium 100 mg 11/21/20 20:33 11/25/20 04:51 Docusate Sodium 100 Mg Capsule PO 100 mg BID PRN Administration Constipation Duloxetine HCl 20 mg 11/27/20 09:00 11/29/20 08:29 Duloxetine Hcl 20 Mg Capsule.Dr PO 20 mg DAILY SHABBIR Administration Ferrous Sulfate 324 mg 11/25/20 10:15 11/29/20 08:32 Ferrous Sulfate 324 Mg Tablet. PO 324 mg DAILY SHABBIR Administration Gabapentin 800 mg 11/20/20 21:00 11/29/20 20:02 Gabapentin 400 Mg Capsule PO 800 mg TID SHABBIR Administration Hydroxyzine HCl 25 mg 11/20/20 18:33 11/25/20 12:38 Hydroxyzine Hcl 25 Mg Tablet PO 25 mg Q6H PRN Administration Anxiety Insulin Glargine 70 unit 11/20/20 21:00 11/29/20 20:03 Insulin Glargine,Hum.Rec.Anlog 100 Unit/Ml 10 Ml Vial SUBCUT 70 unit BEDTIME SHABBIR Administration Insulin Human Lispro 0 unit 11/21/20 16:30 11/29/20 17:43 Insulin Lispro 100 Unit/Ml 3 Ml Vial SUBCUT Not Given TIDAC [facility] Protocol Lidocaine 2 patch 11/24/20 14:58 11/29/20 09:27 Lidocaine 4 % Patch Adh..Patch TRANSDERMA 2 patch DAILY PRN Administration leg pain Protocol Lisinopril 20 mg 11/22/20 09:00 11/29/20 08:30 Lisinopril 20 Mg Tablet PO 20 mg DAILY SHABBIR Administration Protocol Magnesium Hydroxide 30 ml 11/20/20 18:33 11/25/20 09:07 Milk Of Magnesia 30 Ml Oral.Susp PO 30 ml DAILY PRN Administration Constipation Metformin HCl 1,000 mg 11/21/20 08:00 11/29/20 16:44 Metformin Hcl 1,000 Mg Tablet PO 1,000 mg BIDWM SHABBIR Administration Multivitamins 1 tab 11/26/20 09:00 11/29/20 08:29 B-Complex With Vitamin C Tablet PO 1 tab DAILY SHABBIR Administration Multivitamins/Vitamin C 1 tab 11/21/20 09:00 11/29/20 08:33 Multivitamin Tablet PO 1 tab DAILY SHABBIR Administration Nicotine 21 mg 11/21/20 14:15 11/29/20 08:31 Nicotine 21 Mg Patch.Td24 TRANSDERMA 21 mg DAILY SHABBIR Administration Omeprazole 20 mg 11/21/20 06:30 11/29/20 06:46 Omeprazole 20 Mg Capsule. PO 20 mg DAILY@0630 SHABBIR Administration Quetiapine Fumarate 150 mg 11/27/20 09:00 11/29/20 08:30 Quetiapine Fumarate 50 Mg Tablet PO 150 mg DAILY SHABBIR Administration Quetiapine Fumarate 200 mg 11/26/20 21:00 11/29/20 20:02 Quetiapine Fumarate 200 Mg Tablet PO 200 mg BEDTIME SHABBIR Administration Sertraline HCl 75 mg 11/28/20 09:00 11/29/20 08:33 Sertraline Hcl 25 Mg Tablet PO 75 mg DAILY SHABBIR Administration Tamsulosin HCl 0.4 mg 11/21/20 09:00 11/29/20 08:30 Tamsulosin Hcl 0.4 Mg Capsule PO 0.4 mg DAILY SHABBIR Administration Trazodone HCl 100 mg 11/20/20 21:00 11/29/20 20:03 Trazodone Hcl 100 Mg Tablet PO 100 mg BEDTIME SHAB[facility]IR Administration Vitamin D 25 mcg 11/26/20 09:00 11/29/20 08:33 Cholecalciferol (Vitamin D3) 25 Mcg Tablet PO 25 mcg DAILY SHABBIR Administration Allergies Allergies Allergy/AdvReac Type Severity Reaction Status Date / Time levofloxacin [From Levaquin] Allergy Intermediate rash Verified 11/21/20 20:44 Assessment & Plan Assessment & Plan (1) MDD (major depressive disorder), recurrent, severe, with psychosis: Status: Acute Code(s): F33.3 - Major depressive disorder, recurrent, severe with psychotic symptoms Assessment and Plan: 45 yo male, history of recurrent severe major depression presents with SI, HI, relapse on substances along with being septic with UTI. Plan: Re-establish medication regime-pt reports previous regime has been effective. Assist pt in acceptance to [facility] if a bed is available Continue Suboxone therapy Discontinue Ceftin-Rash on bilateral forearms, stomach, chest. Consult with hospitalist-Varghese giordano Pt would like to see podiatry- will make follow up appt post discharge. 11/24/20: Increase in fear, paranoia today regarding owing people drug money? R/O UTI/ABX delirium, psychosis, or actual concern. Will increases Quetiapine a.m. and p.m. Neuropathic pain increase-? Cymbalta to replace Sertraline, Capsacin, Lidocaine Patch-will discuss further with pt. 11/25/20: Discontinue Ceftin, Nicotine Patch 21 mg; Nutritional Consult-ensure, change to regular diet (weight change 250 to 174 in ~4 months pt reports) 11/26/20: Begin Cymbalta 20 mg daily. Will cross taper with Sertraline. Goal: Improved mgt of depressive sx and assistance with pain mgt. 11/27/20: Decrease Sertraline to 75 mg daily, as pt is tolerating Cymbalta. Possible placement with [facility]. Re-ordered nutrition eval/Glucerna tid as pt reports he does not have enough choices for food on current plan. POC this a.m. 59. 11/28/20: Continue current regime at this time. [facility] admission next week if a bed becomes available. 11/29/20 Continu with current treatment plan (2) Opiate dependence: Status: Chronic Code(s): F11.20 - Opioid dependence, uncomplicated Assessment and Plan: -Continue Suboxone therapy -Assist pt in acceptance to [facility] if a bed is available (3) BPH (benign prostatic hyperplasia): Status: Acute Code(s): N40.0 - Benign prostatic hyperplasia without lower urinary tract symptoms Assessment and Plan: Continue current regimen and plans (4) Alcohol use: Status: Acute Code(s): Z72.89 - Other problems related to lifestyle Assessment and Plan: No current symptoms of withdrawal. Assessment and Plan: As noted above. Greater than 50% of the session was spent on counseling and/or coordination of care Reason for contiued inpatient stay Substantial Risk for: harm to self and med/psych decompensation
[2020-11-30] MEDS: Omeprazole 20 MG CAPSULE.DR PO (06:54)
[2020-11-30 07:02] LABS: Glucose, Whole Blood 107 mg/dL (60-115)
[2020-11-30] MEDS: Gabapentin 400 MG CAPSULE 800 MG PO ×3 (08:44→22:07)
[2020-11-30] MEDS: Cholecalciferol (Vitamin D3) 25 MCG TABLET PO (08:44)
[2020-11-30] MEDS: buPROPion HCl XL 150 MG TAB.ER.24H 450 MG PO (08:45)
[2020-11-30] MEDS: metFORMIN HCl 1,000 MG TABLET 1000 MG PO ×3 (08:45→18:49)
[2020-11-30] MEDS: Multivitamin TABLET 1 TAB PO (08:45)
[2020-11-30] MEDS: Tamsulosin HCL 0.4 MG CAPSULE PO (08:45)
[2020-11-30] MEDS: Atorvastatin Calcium 20 MG TABLET PO (08:46)
[2020-11-30] MEDS: Sertraline HCL 25 MG TABLET 75 MG PO (08:47)
[2020-11-30] MEDS: QUEtiapine Fumarate 50 MG TABLET 150 MG PO (08:48)
[2020-11-30] MEDS: Ferrous Sulfate 324 MG TABLET.DR PO (08:49)
[2020-11-30] MEDS: DULoxetine HCl 20 MG CAPSULE.DR PO (08:49)
[2020-11-30] MEDS: amLODIPine Besylate 5 MG TABLET PO (08:50)
[2020-11-30] MEDS: lisinopriL 20 MG TABLET PO (08:50)
[2020-11-30] MEDS: Nicotine 21 MG PATCH.TD24 TRANSDERMA (08:51)
[2020-11-30] MEDS: Buprenorphine/Naloxone 8/2 mg FILM 2 FILM SUBLINGUAL (09:27)
[2020-11-30] MEDS: Lidocaine 4 % Patch ADH..PATCH 2 PATCH TRANSDERMA (09:29)
[2020-11-30 09:30] VITALS: BP 121/67; PULSE 83; RESP 18; TEMP 37.1; O2SAT 97
[2020-11-30 12:13] LABS: Glucose, Whole Blood 136 mg/dL (60-115)
--- NOTE | 2020-11-30 12:26 | P.PNPSI_ITS ---
Subjective Subjective Date of Service: 11/30/20 Reason For Visit: depression, polysubstance use disorder Subjective Notes: Conditional Voluntary Interim History: pt quiet, denies distress, feeling hopeful about future. no SI Medication Compliance: Yes Side effects from medications: No Attending Groups: Yes Review of Systems Acute medical concerns: No Medical Review of Systems: unchanged Mental Status Exam Mental Status Exam Patient Appearance: Appropriate Patient Orientation: Person, Place, Time and Situation Level of Consciousness: Alert Patient Behavior: Cooperative, Anxious and Good Eye Contact Mood Description: Anxious Affect Description: Anxious Patient Cognition Impaired: No Ability to Follow Directions: Good Speech Pattern: Spontaneous Speech and Soft-Spoken Memory Description: Episodic Impaired Thought Process: Intact and Goal Oriented Thought Content: positive for Intact and positive for Goal Oriented Judgement: Fair Diagnostics Vital Signs (24Hr): Vital Signs - 24 hr 11/29/20 18:00 11/30/20 09:30 Temperature 98.1 F 98.7 F Pulse Rate 87 83 Respiratory Rate 18 Blood Pressure 127/84 121/67 Pulse Oximetry 97 Body Mass Index 24.4 Labs Results: 11/26/20 08:07 Labs: Laboratory Results - last 48 hr 11/28/20 11/28/20 11/29/20 16:35 20:40 06:50 POC Glucose 158 H 228 H 89 11/29/20 11/29/20 11/29/20 12:08 17:40 20:01 POC Glucose 132 H 148 H 101 11/30/20 11/30/20 06:58 12:10 POC Glucose 107 136 H Medications Medications Current Medications Generic Name Dose Route Start Last Admin Trade Name Freq PRN Reason Stop Dose Admin Acetaminophen 650 mg 11/20/20 18:33 11/28/20 12:09 Acetaminophen 325 Mg Tablet PO 650 mg Q6H PRN Administration Headache/Pain Mild Scale (1-3) Al Hydroxide/Mg Hydroxide 30 ml 11/20/20 18:33 Magnesium Hydrox/Alum Hydrox 30 Ml Oral.Susp PO Q6H PRN Heartburn/Nausea Albuterol Sulfate 2 puff 11/20/20 18:43 Albuterol Sulfate 90 Mcg 8 Gm Inhaler INHALE RQ4H PRN asthma Amlodipine Besylate 5 mg 11/21/20 09:00 11/30/20 08:50 Amlodipine Besylate 5 Mg Tablet PO 5 mg DAILY SHABBIR Administration Protocol Atorvastatin Calcium 20 mg 11/22/20 09:00 11/30/20 08:46 Atorvastatin Calcium 20 Mg Tablet PO 20 mg DAILY SHABBIR Administration Buprenorphine/Naloxone 2 film 11/21/20 11:00 11/30/20 09:27 Buprenorphine/Naloxone 8/2 Mg Film SUBLINGUAL 2 film 0900 SHABBIR Administration Buprenorphine/Naloxone 1 film 11/21/20 17:00 11/29/20 16:44 Buprenorphine/Naloxone 4/1 Mg Film SUBLINGUAL 1 film 1700 SHABBIR Administration Bupropion HCl 450 mg 11/24/20 08:00 11/30/20 08:45 Bupropion Hcl Xl 150 Mg Tab.Er.24h PO 450 mg DAILY SHABBIR Administration Diphenhydramine HCl 50 mg 11/25/20 11:42 Diphenhydramine Hcl 25 Mg Tablet PO Q6H PRN rash, itching Docusate Sodium 100 mg 11/21/20 20:33 11/25/20 04:51 Docusate Sodium 100 Mg Capsule PO 100 mg BID PRN Administration Constipation Duloxetine HCl 20 mg 11/27/20 09:00 11/30/20 08:49 Duloxetine Hcl 20 Mg Capsule. PO 20 mg DAILY SHABBIR Administration Ferrous Sulfate 324 mg 11/25/20 10:15 11/30/20 08:49 Ferrous Sulfate 324 Mg Tablet. PO 324 mg DAILY SHABBIR Administration Gabapentin 800 mg 11/20/20 21:00 11/30/20 08:44 Gabapentin 400 Mg Capsule PO 800 mg TID SHABBIR Administration Hydroxyzine HCl 25 mg 11/20/20 18:33 11/25/20 12:38 Hydroxyzine Hcl 25 Mg Tablet PO 25 mg Q6H PRN Administration Anxiety Insulin Glargine 70 unit 11/20/20 21:00 11/29/20 20:03 Insulin Glargine,Hum.Rec.Anlog 100 Unit/Ml 10 Ml Vial SUBCUT 70 unit BEDTIME [facility] Administration Insulin Human Lispro 0 unit 11/21/20 16:30 11/30/20 08:54 Insulin Lispro 100 Unit/Ml 3 Ml Vial SUBCUT Not Given TIDAC [facility] Protocol Lidocaine 2 patch 11/24/20 14:58 11/30/20 09:29 Lidocaine 4 % Patch Adh..Patch TRANSDERMA 2 patch DAILY PRN Administration leg pain Protocol Lisinopril 20 mg 11/22/20 09:00 11/30/20 08:50 Lisinopril 20 Mg Tablet PO 20 mg DAILY SHABBIR Administration Protocol Magnesium Hydroxide 30 ml 11/20/20 18:33 11/25/20 09:07 Milk Of Magnesia 30 Ml Oral.Susp PO 30 ml DAILY PRN Administration Constipation Metformin HCl 1,000 mg 11/21/20 08:00 11/30/20 08:45 Metformin Hcl 1,000 Mg Tablet PO 1,000 mg BIDWM SHABBIR Administration Multivitamins 1 tab 11/26/20 09:00 11/30/20 08:48 B-Complex With Vitamin C Tablet PO 1 tab DAILY SHABBIR Administration Multivitamins/Vitamin C 1 tab 11/21/20 09:00 11/30/20 08:45 Multivitamin Tablet PO 1 tab DAILY SHABBIR Administration Nicotine 21 mg 11/21/20 14:15 11/30/20 08:51 Nicotine 21 Mg Patch.Td24 TRANSDERMA 21 mg DAILY SHABBIR Administration Omeprazole 20 mg 11/21/20 06:30 11/30/20 06:54 Omeprazole 20 Mg Capsule.Dr PO 20 mg DAILY@0630 SHABBRI Administration Quetiapine Fumarate 150 mg 11/27/20 09:00 11/30/20 08:48 Quetiapine Fumarate 50 Mg Tablet PO 150 mg DAILY SHABBIR Administration Quetiapine Fumarate 200 mg 11/26/20 21:00 11/29/20 20:02 Quetiapine Fumarate 200 Mg Tablet PO 200 mg BEDTIME SHABBIR Administration Sertraline HCl 75 mg 11/28/20 09:00 11/30/20 08:47 Sertraline Hcl 25 Mg Tablet PO 75 mg DAILY SHABBIR Administration Tamsulosin HCl 0.4 mg 11/21/20 09:00 11/30/20 08:45 Tamsulosin Hcl 0.4 Mg Capsule PO 0.4 mg DAILY SHABBIR Administration Trazodone HCl 100 mg 11/20/20 21:00 11/29/20 20:03 Trazodone Hcl 100 Mg Tablet PO 100 mg BEDTIME SHABBIR Administration Vitamin D 25 mcg 11/26/20 09:00 11/30/20 08:44 Cholecalciferol (Vitamin D3) 25 Mcg Tablet PO 25 mcg DAILY SHABBIR Administration Allergies Allergies Allergy/AdvReac Type Severity Reaction Status Date / Time levofloxacin [From Levaquin] Allergy Intermediate rash Verified 11/21/20 20:44 Assessment & Plan Assessment & Plan (1) MDD (major depressive disorder), recurrent, severe, with psychosis: Status: Acute Code(s): F33.3 - Major depressive disorder, recurrent, severe with psychotic symptoms Assessment and Plan: 45 yo male, history of recurrent severe major depression presents with SI, HI, relapse on substances along with being septic with UTI. Plan: Re-establish medication regime-pt reports previous regime has been effective. Assist pt in acceptance to [facility] if a bed is available Continue Suboxone therapy Discontinue Ceftin-Rash on bilateral forearms, stomach, chest. Consult with hospitalist-Varghese giordano Pt would like to see podiatry- will make follow up appt post discharge. 11/24/20: Increase in fear, paranoia today regarding owing people drug money? R/O UTI/ABX delirium, psychosis, or actual concern. Will increases Quetiapine a.m. and p.m. Neuropathic pain increase-? Cymbalta to replace Sertraline, Capsacin, Lidocaine Patch-will discuss further with pt. 11/25/20: Discontinue Ceftin, Nicotine Patch 21 mg; Nutritional Consult-ensure, change to regular diet (weight change 250 to 174 in ~4 months pt reports) 11/26/20: Begin Cymbalta 20 mg daily. Will cross taper with Sertraline. Goal: Improved mgt of depressive sx and assistance with pain mgt. 11/27/20: Decrease Sertraline to 75 mg daily, as pt is tolerating Cymbalta. Possible placement with [facility]. Re-ordered nutrition eval/Glucerna tid as pt reports he does not have enough choices for food on current plan. POC this a.m. 59. 11/28/20: Continue current regime at this time. [facility] admission next week if a bed becomes available. 11/29/20 Continu with current treatment plan 11/30/20 continue with current plan (2) Opiate dependence: Status: Chronic Code(s): F11.20 - Opioid dependence, uncomplicated Assessment and Plan: -Continue Suboxone therapy -Assist pt in acceptance to [facility] if a bed is available (3) BPH (benign prostatic hyperplasia): Status: Acute Code(s): N40.0 - Benign prostatic hyperplasia without lower urinary tract symptoms Assessment and Plan: Continue current regimen and plans (4) Alcohol use: Status: Acute Code(s): Z72.89 - Other problems related to lifestyle Assessment and Plan: No current symptoms of withdrawal. Assessment and Plan: As noted above. Greater than 50% of the session was spent on counseling and/or coordination of care Reason for contiued inpatient stay Substantial Risk for: harm to self, inability to function and rapid decompensation
[2020-11-30 16:51] VITALS: PULSE 68; RESP 18; TEMP 36.8; O2SAT 97
--- NOTE | 2020-11-30 19:06 | PC.NURSE ---
1700 Suboxone held due to lethargy. Pt informed and is in afreement with receiving it at 1999.
[2020-11-30 22:05] LABS: Glucose, Whole Blood 168 mg/dL (60-115)
[2020-11-30 22:05] LABS: Glucose, Whole Blood 71 mg/dL (60-115)
[2020-11-30] MEDS: Insulin Glargine,Hum.rec.anlog 100 UNIT/ML 10 ML VIAL 70 UNIT SUBCUT (22:06)
[2020-11-30] MEDS: traZODone HCL 100 MG TABLET PO (22:07)
[2020-11-30] MEDS: QUEtiapine Fumarate 200 MG TABLET PO (22:07)
[2020-11-30] MEDS: Acetaminophen 325 MG TABLET 650 MG PO (22:18)
[2020-11-30] MEDS: Buprenorphine/Naloxone 4/1 mg FILM 1 FILM SUBLINGUAL (22:18)
[2020-12-01 06:00] VITALS: BP 117/69; RESP 16
[2020-12-01] MEDS: Omeprazole 20 MG CAPSULE.DR PO (07:11)
[2020-12-01 07:25] LABS: Glucose, Whole Blood 124 mg/dL (60-115)
[2020-12-01] MEDS: Nicotine 21 MG PATCH.TD24 TRANSDERMA (08:45)
[2020-12-01] MEDS: Atorvastatin Calcium 20 MG TABLET PO (08:46)
[2020-12-01] MEDS: Lidocaine 4 % Patch ADH..PATCH 2 PATCH TRANSDERMA (08:46)
[2020-12-01] MEDS: Sertraline HCL 25 MG TABLET 75 MG PO (08:46)
[2020-12-01 08:47] VITALS: BP 117/69; PULSE 85
[2020-12-01] MEDS: Gabapentin 400 MG CAPSULE 800 MG PO ×3 (08:47→21:54)
[2020-12-01] MEDS: DULoxetine HCl 20 MG CAPSULE.DR PO (08:47)
[2020-12-01] MEDS: Cholecalciferol (Vitamin D3) 25 MCG TABLET PO (08:47)
[2020-12-01] MEDS: QUEtiapine Fumarate 50 MG TABLET 150 MG PO (08:47)
[2020-12-01] MEDS: lisinopriL 20 MG TABLET PO (08:47)
[2020-12-01] MEDS: Ferrous Sulfate 324 MG TABLET.DR PO (08:47)
[2020-12-01] MEDS: Tamsulosin HCL 0.4 MG CAPSULE PO (08:47)
[2020-12-01] MEDS: buPROPion HCl XL 150 MG TAB.ER.24H 450 MG PO (08:47)
[2020-12-01] MEDS: metFORMIN HCl 1,000 MG TABLET 1000 MG PO ×2 (08:47→17:25)
[2020-12-01] MEDS: Multivitamin TABLET 1 TAB PO (08:47)
[2020-12-01 08:51] VITALS: BP 117/69; PULSE 85
[2020-12-01] MEDS: amLODIPine Besylate 5 MG TABLET PO (08:51)
[2020-12-01] MEDS: Buprenorphine/Naloxone 8/2 mg FILM 2 FILM SUBLINGUAL (10:10)
--- NOTE | 2020-12-01 12:27 | HO.PSYCHPN ---
Subjective Subjective Date of Service: 12/01/20 Reason For Visit: depression, polysubstance use disorder Subjective Notes: Conditional Voluntary Healthcare Proxy: No Guardianship: No Medical Problems Affecting Mental Status: No Interim History: Pt reports he is well. Denies current symptoms except anxiety regarding pending admission to [facility] for ongoing treatment. Attending groups per team. Hoping for acceptance into [facility] as he has had success in this program by history. Medication Compliance: Yes Side effects from medications: No Attending Groups: Yes Review of Systems Acute medical concerns: No Medical Review of Systems: unchanged Review of Systems Psychiatric: Reports no additional psychiatric complaints and Reports anxiety Mental Status Exam Mental Status Exam Patient Appearance: Appropriate Patient Orientation: Person, Place, Time and Situation Level of Consciousness: Alert Patient Behavior: Talkative, Fearful and Good Eye Contact Mood Description: Withdrawn Affect Description: Withdrawn Patient Cognition Impaired: No Ability to Follow Directions: Good Speech Pattern: Spontaneous Speech Memory Description: Intact Hallucinations: None Delusions: Not Present Thought Process: Intact Thought Content: positive for Intact Depressive Symptoms: Increased Anxiety Abnormal Motor Activity Signs and Symptoms: Restlessness Judgement: Good Diagnostics Vital Signs (24Hr): Vital Signs - 24 hr 11/30/20 16:51 12/01/20 06:00 12/01/20 08:47 Temperature 98.2 F Pulse Rate 68 85 Respiratory Rate 18 16 Blood Pressure 117/69 117/69 Pulse Oximetry 97 12/01/20 08:51 Temperature Pulse Rate 85 Respiratory Rate Blood Pressure 117/69 Pulse Oximetry Body Mass Index 24.4 Labs Results: 11/26/20 08:07 Labs: Laboratory Results - last 48 hr 11/29/20 11/29/20 11/30/20 17:40 20:01 06:58 POC Glucose 148 H 101 107 11/30/20 11/30/20 11/30/20 12:10 17:18 22:02 POC Glucose 136 H 71 168 H 12/01/20 07:10 POC Glucose 124 H Medications Medications Current Medications Generic Name Dose Route Start Last Admin Trade Name Freq PRN Reason Stop Dose Admin Acetaminophen 650 mg 11/20/20 18:33 11/30/20 22:18 Acetaminophen 325 Mg Tablet PO 650 mg Q6H PRN Administration Headache/Pain Mild Scale (1-3) Al Hydroxide/Mg Hydroxide 30 ml 11/20/20 18:33 Magnesium Hydrox/Alum Hydrox 30 Ml Oral.Susp PO Q6H PRN Heartburn/Nausea Albuterol Sulfate 2 puff 11/20/20 18:43 Albuterol Sulfate 90 Mcg 8 Gm Inhaler INHALE RQ4H PRN asthma Amlodipine Besylate 5 mg 11/21/20 09:00 12/01/20 08:51 Amlodipine Besylate 5 Mg Tablet PO 5 mg DAILY SHABBIR Administration Protocol Atorvastatin Calcium 20 mg 11/22/20 09:00 12/01/20 08:46 Atorvastatin Calcium 20 Mg Tablet PO 20 mg DAILY SHABBIR Administration Buprenorphine/Naloxone 2 film 11/21/20 11:00 12/01/20 10:10 Buprenorphine/Naloxone 8/2 Mg Film SUBLINGUAL 2 film 0900 SHABBIR Administration Buprenorphine/Naloxone 1 film 11/21/20 17:00 11/30/20 22:18 Buprenorphine/Naloxone 4/1 Mg Film SUBLINGUAL 1 film 1700 SHABBIR Administration Bupropion HCl 450 mg 11/24/20 08:00 12/01/20 08:47 Bupropion Hcl Xl 150 Mg Tab.Er.24h PO 450 mg DAILY SHABBIR Administration Diphenhydramine HCl 50 mg 11/25/20 11:42 Diphenhydramine Hcl 25 Mg Tablet PO Q6H PRN rash, itching Docusate Sodium 100 mg 11/21/20 20:33 11/25/20 04:51 Docusate Sodium 100 Mg Capsule PO 100 mg BID PRN Administration Constipation Duloxetine HCl 20 mg 11/27/20 09:00 12/01/20 08:47 Duloxetine Hcl 20 Mg Capsule. PO 20 mg DAILY SHABBIR Administration Ferrous Sulfate 324 mg 11/25/20 10:15 12/01/20 08:47 Ferrous Sulfate 324 Mg Tablet. PO 324 mg DAILY SHABBIR Administration Gabapentin 800 mg 11/20/20 21:00 12/01/20 08:47 Gabapentin 400 Mg Capsule PO 800 mg TID SHABBIR Administration Hydroxyzine HCl 25 mg 11/20/20 18:33 11/25/20 12:38 Hydroxyzine Hcl 25 Mg Tablet PO 25 mg Q6H PRN Administration Anxiety Insulin Glargine 70 unit 11/20/20 21:00 11/30/20 22:06 Insulin Glargine,Hum.Rec.Anlog 100 Unit/Ml 10 Ml Vial SUBCUT 70 unit BEDTIME SHABBIR Administration Insulin Human Lispro 0 unit 11/21/20 16:30 12/01/20 07:50 Insulin Lispro 100 Unit/Ml 3 Ml Vial SUBCUT Not Given TIDAC [facility] Protocol Lidocaine 2 patch 11/24/20 14:58 12/01/20 08:46 Lidocaine 4 % Patch Adh..Patch TRANSDERMA 2 patch DAILY PRN Administration leg pain Protocol Lisinopril 20 mg 11/22/20 09:00 12/01/20 08:47 Lisinopril 20 Mg Tablet PO 20 mg DAILY SHABBIR Administration Protocol Magnesium Hydroxide 30 ml 11/20/20 18:33 11/25/20 09:07 Milk Of Magnesia 30 Ml Oral.Susp PO 30 ml DAILY PRN Administration Constipation Metformin HCl 1,000 mg 11/21/20 08:00 12/01/20 08:47 Metformin Hcl 1,000 Mg Tablet PO 1,000 mg BIDWM SHABBIR Administration Multivitamins 1 tab 11/26/20 09:00 12/01/20 08:47 B-Complex With Vitamin C Tablet PO 1 tab DAILY SHABBIR Administration Multivitamins/Vitamin C 1 tab 11/21/20 09:00 12/01/20 08:47 Multivitamin Tablet PO 1 tab DAILY SHABBIR Administration Nicotine 21 mg 11/21/20 14:15 12/01/20 08:45 Nicotine 21 Mg Patch.Td24 TRANSDERMA 21 mg DAILY SHABBIR Administration Omeprazole 20 mg 11/21/20 06:30 12/01/20 07:11 Omeprazole 20 Mg Capsule.Dr PO 20 mg DAILY@0630 SHABBIR Administration Quetiapine Fumarate 150 mg 11/27/20 09:00 12/01/20 08:47 Quetiapine Fumarate 50 Mg Tablet PO 150 mg DAILY SHABBIR Administration Quetiapine Fumarate 200 mg 11/26/20 21:00 11/30/20 22:07 Quetiapine Fumarate 200 Mg Tablet PO 200 mg BEDTIME SHABBIR Administration Sertraline HCl 75 mg 11/28/20 09:00 12/01/20 08:46 Sertraline Hcl 25 Mg Tablet PO 75 mg DAILY SHABBIR Administration Tamsulosin HCl 0.4 mg 11/21/20 09:00 12/01/20 08:47 Tamsulosin Hcl 0.4 Mg Capsule PO 0.4 mg DAILY SHABBIR Administration Trazodone HCl 100 mg 11/20/20 21:00 11/30/20 22:07 Trazodone Hcl 100 Mg Tablet PO 100 mg BEDTIME SHABBIR Administration Vitamin D 25 mcg 11/26/20 09:00 12/01/20 08:47 Cholecalciferol (Vitamin D3) 25 Mcg Tablet PO 25 mcg DAILY SHABBIR Administration Allergies Allergies Allergy/AdvReac Type Severity Reaction Status Date / Time levofloxacin [From Levaquin] Allergy Intermediate rash Verified 11/21/20 20:44 Assessment & Plan Assessment & Plan (1) MDD (major depressive disorder), recurrent, severe, with psychosis: Status: Acute Code(s): F33.3 - Major depressive disorder, recurrent, severe with psychotic symptoms Assessment and Plan: 45 yo male, history of recurrent severe major depression presents with SI, HI, relapse on substances along with being septic with UTI. Plan: Re-establish medication regime-pt reports previous regime has been effective. Assist pt in acceptance to [facility] if a bed is available Continue Suboxone therapy Discontinue Ceftin-Rash on bilateral forearms, stomach, chest. Consult with hospitalist-Varghese giordano Pt would like to see podiatry- will make follow up appt post discharge. 11/24/20: Increase in fear, paranoia today regarding owing people drug money? R/O UTI/ABX delirium, psychosis, or actual concern. Will increases Quetiapine a.m. and p.m. Neuropathic pain increase-? Cymbalta to replace Sertraline, Capsacin, Lidocaine Patch-will discuss further with pt. 11/25/20: Discontinue Ceftin, Nicotine Patch 21 mg; Nutritional Consult-ensure, change to regular diet (weight change 250 to 174 in ~4 months pt reports) 11/26/20: Begin Cymbalta 20 mg daily. Will cross taper with Sertraline. Goal: Improved mgt of depressive sx and assistance with pain mgt. 11/27/20: Decrease Sertraline to 75 mg daily, as pt is tolerating Cymbalta. Possible placement with [facility]. Re-ordered nutrition eval/Glucerna tid as pt reports he does not have enough choices for food on current plan. POC this a.m. 59. 11/28/20: Continue current regime at this time. [facility] admission next week if a bed becomes available. 11/29/20 Continu with current treatment plan 11/30/20 continue with current plan 12/01/20 Continue current plan-Many of the programs we await to hear from are closed today due to hurjhoan Sam. [facility] transfer when accepted. (2) Opiate dependence: Status: Chronic Code(s): F11.20 - Opioid dependence, uncomplicated Assessment and Plan: -Continue Suboxone therapy -Assist pt in acceptance to [facility] if a bed is available (3) BPH (benign prostatic hyperplasia): Status: Acute Code(s): N40.0 - Benign prostatic hyperplasia without lower urinary tract symptoms Assessment and Plan: Continue current regimen and plans (4) Alcohol use: Status: Acute Code(s): Z72.89 - Other problems related to lifestyle Assessment and Plan: No current symptoms of withdrawal. Assessment and Plan: As noted above. Greater than 50% of the session was spent on counseling and/or coordination of care Reason for contiued inpatient stay Substantial Risk for: harm to self, inability to function and rapid decompensation
[2020-12-01] MEDS: Insulin Lispro 100 UNIT/ML 3 ML VIAL SUBCUT (12:43)
[2020-12-01 12:56] LABS: Glucose, Whole Blood 178 mg/dL (60-115)
[2020-12-01] MEDS: Buprenorphine/Naloxone 4/1 mg FILM 1 FILM SUBLINGUAL (17:26)
[2020-12-01 17:36] LABS: Glucose, Whole Blood 139 mg/dL (60-115)
[2020-12-01 19:05] VITALS: BP 109/58; PULSE 85; TEMP 36.4
[2020-12-01 21:52] LABS: Glucose, Whole Blood 148 mg/dL (60-115)
[2020-12-01] MEDS: QUEtiapine Fumarate 200 MG TABLET PO (21:55)
[2020-12-01] MEDS: traZODone HCL 100 MG TABLET PO (21:55)
[2020-12-01] MEDS: Insulin Glargine,Hum.rec.anlog 100 UNIT/ML 10 ML VIAL 70 UNIT SUBCUT (21:56)
[2020-12-02 05:04] LABS: Glucose, Whole Blood 138 mg/dL (60-115)
[2020-12-02 06:00] VITALS: BP 110/60; PULSE 71; RESP 16; TEMP 35.7; O2SAT 96
[2020-12-02] MEDS: buPROPion HCl XL 150 MG TAB.ER.24H 450 MG PO (08:14)
[2020-12-02] MEDS: Multivitamin TABLET 1 TAB PO (08:15)
[2020-12-02] MEDS: Cholecalciferol (Vitamin D3) 25 MCG TABLET PO (08:15)
[2020-12-02] MEDS: Ferrous Sulfate 324 MG TABLET.DR PO (08:15)
[2020-12-02] MEDS: Omeprazole 20 MG CAPSULE.DR PO (08:16)
[2020-12-02] MEDS: Tamsulosin HCL 0.4 MG CAPSULE PO (08:16)
[2020-12-02] MEDS: QUEtiapine Fumarate 50 MG TABLET 150 MG PO (08:18)
[2020-12-02] MEDS: Sertraline HCL 25 MG TABLET 75 MG PO (08:19)
[2020-12-02] MEDS: DULoxetine HCl 20 MG CAPSULE.DR PO (08:20)
[2020-12-02] MEDS: Gabapentin 400 MG CAPSULE 800 MG PO ×3 (08:20→21:04)
[2020-12-02 08:21] VITALS: BP 116/67; PULSE 80
[2020-12-02] MEDS: amLODIPine Besylate 5 MG TABLET PO (08:21)
[2020-12-02] MEDS: metFORMIN HCl 1,000 MG TABLET 1000 MG PO ×2 (08:21→16:50)
[2020-12-02 08:22] VITALS: BP 116/67; PULSE 80
[2020-12-02] MEDS: lisinopriL 20 MG TABLET PO (08:22)
[2020-12-02] MEDS: Atorvastatin Calcium 20 MG TABLET PO (08:23)
[2020-12-02] MEDS: Nicotine 21 MG PATCH.TD24 TRANSDERMA (08:24)
[2020-12-02] MEDS: Buprenorphine/Naloxone 8/2 mg FILM 2 FILM SUBLINGUAL (09:22)
[2020-12-02] MEDS: Lidocaine 4 % Patch ADH..PATCH 2 PATCH TRANSDERMA (10:01)
[2020-12-02 11:51] LABS: Glucose, Whole Blood 168 mg/dL (60-115)
[2020-12-02] MEDS: Insulin Lispro 100 UNIT/ML 3 ML VIAL SUBCUT (11:52)
[2020-12-02] MEDS: Buprenorphine/Naloxone 4/1 mg FILM 1 FILM SUBLINGUAL (16:50)
[2020-12-02 17:20] LABS: Glucose, Whole Blood 94 mg/dL (60-115)
[2020-12-02 17:23] VITALS: BP 97/54; PULSE 76; RESP 18; TEMP 36.2; O2SAT 96
--- NOTE | 2020-12-02 20:30 | P.PNPSI_ITS ---
Subjective Subjective Date of Service: 12/02/20 Reason For Visit: depression, polysubstance use disorder Subjective Notes: Conditional Voluntary Healthcare Proxy: No Guardianship: No Medical Problems Affecting Mental Status: No Interim History: Sukhwinder continues to wait for acceptance into [facility]. He reports no current med SE and reports regime efficacy. Today depressive sx 10 and anxious sx 10/18. Medication Compliance: Yes Side effects from medications: No Attending Groups: Yes Review of Systems Acute medical concerns: No Medical Review of Systems: unchanged Review of Systems Psychiatric: Reports anxiety, Reports depression, Reports difficulty concentrating, Reports hopelessness and Reports other (fearful of not getting a placement where he may be safe and protected ) Mental Status Exam Mental Status Exam Patient Appearance: Appropriate Patient Orientation: Person, Place, Time and Situation Level of Consciousness: Alert Patient Behavior: Appropriate, Talkative, Cooperative, Passive, Anxious (10/18), Fearful and Good Eye Contact Mood Description: Anxious Affect Description: Anxious Patient Cognition Impaired: No Ability to Follow Directions: Good Speech Pattern: Spontaneous Speech Memory Description: Intact Hallucinations: None Delusions: Not Present Perceptual Disturbances: Depersonalization and Derealization Thought Process: Distracted, Rumination and Goal Oriented Thought Content: positive for Circumstantial, positive for Goal Oriented, positive for Perseveration and positive for Preoccupation Depressive Symptoms: Increased Anxiety, Diff. Making Decisions and Low Self Esteem Judgement: Fair Diagnostics Vital Signs (24Hr): Vital Signs - 24 hr 12/02/20 06:00 12/02/20 08:21 12/02/20 08:22 Temperature 96.2 F L Pulse Rate 71 80 80 Respiratory Rate 16 Blood Pressure 110/60 116/67 116/67 Pulse Oximetry 96 12/02/20 17:23 Temperature 97.1 F Pulse Rate 76 Respiratory Rate 18 Blood Pressure 97/54 L Pulse Oximetry 96 Body Mass Index 24.4 Labs Results: 12/03/20 08:06 Labs: Laboratory Results - last 48 hr 11/30/20 11/30/20 12/01/20 17:18 22:02 07:10 POC Glucose 71 168 H 124 H 12/01/20 12/01/20 12/01/20 12:35 17:12 21:46 POC Glucose 178 H 139 H 148 H 12/02/20 12/02/20 12/02/20 05:00 11:47 16:43 POC Glucose 138 H 168 H 94 Medications Medications Current Medications Generic Name Dose Route Start Last Admin Trade Name Freq PRN Reason Stop Dose Admin Acetaminophen 650 mg 11/20/20 18:33 11/30/20 22:18 Acetaminophen 325 Mg Tablet PO 650 mg Q6H PRN Administration Headache/Pain Mild Scale (1-3) Al Hydroxide/Mg Hydroxide 30 ml 11/20/20 18:33 Magnesium Hydrox/Alum Hydrox 30 Ml Oral.Susp PO Q6H PRN Heartburn/Nausea Albuterol Sulfate 2 puff 11/20/20 18:43 Albuterol Sulfate 90 Mcg 8 Gm Inhaler INHALE RQ4H PRN asthma Amlodipine Besylate 5 mg 11/21/20 09:00 12/02/20 08:21 Amlodipine Besylate 5 Mg Tablet PO 5 mg DAILY SHABBIR Administration Protocol Atorvastatin Calcium 20 mg 11/22/20 09:00 12/02/20 08:23 Atorvastatin Calcium 20 Mg Tablet PO 20 mg DAILY SHABBIR Administration Buprenorphine/Naloxone 2 film 11/21/20 11:00 12/02/20 09:22 Buprenorphine/Naloxone 8/2 Mg Film SUBLINGUAL 2 film 0900 SHABBIR Administration Buprenorphine/Naloxone 1 film 11/21/20 17:00 12/02/20 16:50 Buprenorphine/Naloxone 4/1 Mg Film SUBLINGUAL 1 film 1700 SHABBIR Administration Bupropion HCl 450 mg 11/24/20 08:00 12/02/20 08:14 Bupropion Hcl Xl 150 Mg Tab.Er.24h PO 450 mg DAILY SHABBIR Administration Diphenhydramine HCl 50 mg 11/25/20 11:42 Diphenhydramine Hcl 25 Mg Tablet PO Q6H PRN rash, itching Docusate Sodium 100 mg 11/21/20 20:33 11/25/20 04:51 Docusate Sodium 100 Mg Capsule PO 100 mg BID PRN Administration Constipation Duloxetine HCl 20 mg 11/27/20 09:00 12/02/20 08:20 Duloxetine Hcl 20 Mg Capsule. PO 20 mg DAILY SHABBIR Administration Ferrous Sulfate 324 mg 11/25/20 10:15 12/02/20 08:15 Ferrous Sulfate 324 Mg Tablet. PO 324 mg DAILY SHABBIR Administration Gabapentin 800 mg 11/20/20 21:00 12/02/20 14:16 Gabapentin 400 Mg Capsule PO 800 mg TID SHABBIR Administration Hydroxyzine HCl 25 mg 11/20/20 18:33 11/25/20 12:38 Hydroxyzine Hcl 25 Mg Tablet PO 25 mg Q6H PRN Administration Anxiety Insulin Glargine 70 unit 11/20/20 21:00 12/01/20 21:56 Insulin Glargine,Hum.Rec.Anlog 100 Unit/Ml 10 Ml Vial SUBCUT 70 unit BEDTIME SHABBIR Administration Insulin Human Lispro 0 unit 11/21/20 16:30 12/02/20 16:45 Insulin Lispro 100 Unit/Ml 3 Ml Vial SUBCUT Not Given TIDAC [facility] Protocol Lidocaine 2 patch 11/24/20 14:58 12/02/20 10:01 Lidocaine 4 % Patch Adh..Patch TRANSDERMA 2 patch DAILY PRN Administration leg pain Protocol Lisinopril 20 mg 11/22/20 09:00 12/02/20 08:22 Lisinopril 20 Mg Tablet PO 20 mg DAILY SHABBIR Administration Protocol Magnesium Hydroxide 30 ml 11/20/20 18:33 11/25/20 09:07 Milk Of Magnesia 30 Ml Oral.Susp PO 30 ml DAILY PRN Administration Constipation Metformin HCl 1,000 mg 11/21/20 08:00 12/02/20 16:50 Metformin Hcl 1,000 Mg Tablet PO 1,000 mg BIDWM SHABBIR Administration Multivitamins 1 tab 11/26/20 09:00 12/02/20 08:15 B-Complex With Vitamin C Tablet PO 1 tab DAILY SHABBIR Administration Multivitamins/Vitamin C 1 tab 11/21/20 09:00 12/02/20 08:15 Multivitamin Tablet PO 1 tab DAILY SHABBIR Administration Nicotine 21 mg 11/21/20 14:15 12/02/20 08:24 Nicotine 21 Mg Patch.Td24 TRANSDERMA 21 mg DAILY SHABBIR Administration Omeprazole 20 mg 11/21/20 06:30 12/02/20 08:16 Omeprazole 20 Mg Capsule.Dr PO 20 mg DAILY@0630 SHABBIR Administration Quetiapine Fumarate 150 mg 11/27/20 09:00 12/02/20 08:18 Quetiapine Fumarate 50 Mg Tablet PO 150 mg DAILY SHABBIR Administration Quetiapine Fumarate 200 mg 11/26/20 21:00 12/01/20 21:55 Quetiapine Fumarate 200 Mg Tablet PO 200 mg BEDTIME SHABBIR Administration Sertraline HCl 75 mg 11/28/20 09:00 12/02/20 08:19 Sertraline Hcl 25 Mg Tablet PO 75 mg DAILY SHABBIR Administration Tamsulosin HCl 0.4 mg 11/21/20 09:00 12/02/20 08:16 Tamsulosin Hcl 0.4 Mg Capsule PO 0.4 mg DAILY SHABBIR Administration Trazodone HCl 100 mg 11/20/20 21:00 12/01/20 21:55 Trazodone Hcl 100 Mg Tablet PO 100 mg BEDTIME SHABBIR Administration Vitamin D 25 mcg 11/26/20 09:00 12/02/20 08:15 Cholecalciferol (Vitamin D3) 25 Mcg Tablet PO 25 mcg DAILY SHABBIR Administration Allergies Allergies Allergy/AdvReac Type Severity Reaction Status Date / Time levofloxacin [From Levaquin] Allergy Intermediate rash Verified 11/21/20 20:44 Assessment & Plan Assessment & Plan (1) MDD (major depressive disorder), recurrent, severe, with psychosis: Status: Acute Code(s): F33.3 - Major depressive disorder, recurrent, severe with psychotic symptoms Assessment and Plan: 45 yo male, history of recurrent severe major depression presents with SI, HI, relapse on substances along with being septic with UTI. Plan: Re-establish medication regime-pt reports previous regime has been effective. Assist pt in acceptance to [facility] if a bed is available Continue Suboxone therapy Discontinue Ceftin-Rash on bilateral forearms, stomach, chest. Consult with hospitalist-Varghese giordano Pt would like to see podiatry- will make follow up appt post discharge. 11/24/20: Increase in fear, paranoia today regarding owing people drug money? R/O UTI/ABX delirium, psychosis, or actual concern. Will increases Quetiapine a.m. and p.m. Neuropathic pain increase-? Cymbalta to replace Sertraline, Capsacin, Lidocaine Patch-will discuss further with pt. 11/25/20: Discontinue Ceftin, Nicotine Patch 21 mg; Nutritional Consult-ensure, change to regular diet (weight change 250 to 174 in ~4 months pt reports) 11/26/20: Begin Cymbalta 20 mg daily. Will cross taper with Sertraline. Goal: Improved mgt of depressive sx and assistance with pain mgt. 11/27/20: Decrease Sertraline to 75 mg daily, as pt is tolerating Cymbalta. Possible placement with [facility]. Re-ordered nutrition eval/Glucerna tid as pt reports he does not have enough choices for food on current plan. POC this a.m. 59. 11/28/20: Continue current regime at this time. [facility] admission next week if a bed becomes available. 11/29/20 Continu with current treatment plan 11/30/20 continue with current plan 12/01/20 Continue current plan-Many of the programs we await to hear from are closed today due to hurjhoan Vargas. [facility] transfer when accepted. 12/02/20: Continue current plan of care. (2) Opiate dependence: Status: Chronic Code(s): F11.20 - Opioid dependence, uncomplicated Assessment and Plan: -Continue Suboxone therapy -Assist pt in acceptance to [facility] if a bed is available (3) BPH (benign prostatic hyperplasia): Status: Acute Code(s): N40.0 - Benign prostatic hyperplasia without lower urinary tract symptoms Assessment and Plan: Continue current regimen and plans (4) Alcohol use: Status: Acute Code(s): Z72.89 - Other problems related to lifestyle Assessment and Plan: No current symptoms of withdrawal. Assessment and Plan: As noted above. Greater than 50% of the session was spent on counseling and/or coordination of care Reason for contiued inpatient stay Substantial Risk for: harm to self, inability to function and rapid decompensation
[2020-12-02] MEDS: Insulin Glargine,Hum.rec.anlog 100 UNIT/ML 10 ML VIAL 70 UNIT SUBCUT (21:01)
[2020-12-02 21:03] LABS: Glucose, Whole Blood 99 mg/dL (60-115)
[2020-12-02] MEDS: traZODone HCL 100 MG TABLET PO (21:04)
[2020-12-02] MEDS: QUEtiapine Fumarate 200 MG TABLET PO (21:04)
[2020-12-03 06:33] LABS: Glucose, Whole Blood 94 mg/dL (60-115)
[2020-12-03] MEDS: Nicotine 21 MG PATCH.TD24 TRANSDERMA (08:42)
[2020-12-03] MEDS: Lidocaine 4 % Patch ADH..PATCH 2 PATCH TRANSDERMA (08:42)
[2020-12-03] MEDS: metFORMIN HCl 1,000 MG TABLET 1000 MG PO ×2 (08:43→16:57)
[2020-12-03] MEDS: Cholecalciferol (Vitamin D3) 25 MCG TABLET PO (08:43)
[2020-12-03] MEDS: Atorvastatin Calcium 20 MG TABLET PO (08:43)
[2020-12-03 08:44] VITALS: BP 113/73; PULSE 85
[2020-12-03] MEDS: QUEtiapine Fumarate 50 MG TABLET 150 MG PO (08:44)
[2020-12-03] MEDS: lisinopriL 20 MG TABLET PO (08:44)
[2020-12-03] MEDS: Ferrous Sulfate 324 MG TABLET.DR PO (08:44)
[2020-12-03] MEDS: Sertraline HCL 25 MG TABLET 75 MG PO (08:44)
[2020-12-03] MEDS: Tamsulosin HCL 0.4 MG CAPSULE PO (08:44)
[2020-12-03] MEDS: Multivitamin TABLET 1 TAB PO (08:44)
[2020-12-03] MEDS: DULoxetine HCl 20 MG CAPSULE.DR PO (08:44)
[2020-12-03] MEDS: buPROPion HCl XL 150 MG TAB.ER.24H 450 MG PO (08:44)
[2020-12-03] MEDS: Gabapentin 400 MG CAPSULE 800 MG PO ×3 (08:44→21:12)
[2020-12-03] MEDS: Omeprazole 20 MG CAPSULE.DR PO (08:44)
[2020-12-03 08:45] VITALS: BP 113/73; PULSE 85
[2020-12-03] MEDS: amLODIPine Besylate 5 MG TABLET PO (08:45)
[2020-12-03 09:14] LABS: Creatinine Clr Calc Pharmacy 135.2; Estimated Glomerular Filt Rate > 60
[2020-12-03] MEDS: Buprenorphine/Naloxone 8/2 mg FILM 2 FILM SUBLINGUAL (10:21)
[2020-12-03] MEDS: Buprenorphine/Naloxone 4/1 mg FILM 1 FILM SUBLINGUAL (16:57)
[2020-12-03 16:59] LABS: Glucose, Whole Blood 128 mg/dL (60-115)
--- NOTE | 2020-12-03 17:54 | HO.PSYCHPN ---
Subjective Subjective Date of Service: 12/03/20 Reason For Visit: depression, polysubstance use disorder Subjective Notes: Conditional Voluntary Healthcare Proxy: No Guardianship: No Medical Problems Affecting Mental Status: No Interim History: Expressing frustration with the wait time for CSS. Discussed some of the healthcare system changes and stressors since COVID pandemic initiated and effects upon the out patient service organizations. Discussed how team can best support pt. Pt feeling discouraged, encouraged to continue the plan. He may ask for discharge on 12/04. Denies SI, HI, plan or intent. Discussed that he does owe people money on the street but would leave the area with his girlfriend. Reports sleep and appetite are regulated . Discussed a brief period of feeling lightheaded before retiring last evening which did not last. Encouraged pt to ask to have his blood sugar taken if this symptom appears again. He agreed. Reports depression 3-07/19 and anxiety the same. Medication Compliance: Yes Side effects from medications: No Attending Groups: Yes Review of Systems Acute medical concerns: No Medical Review of Systems: unchanged Review of Systems Psychiatric: Reports anxiety, Reports depression and Reports irritability Mental Status Exam Mental Status Exam Patient Appearance: Appropriate Patient Orientation: Person, Place, Time and Situation Level of Consciousness: Alert Patient Behavior: Appropriate, Talkative, Cooperative, Passive, Anxious, Fearful and Good Eye Contact Mood Description: Anxious Affect Description: Anxious Patient Cognition Impaired: No Ability to Follow Directions: Good Speech Pattern: Spontaneous Speech Memory Description: Intact Hallucinations: None Delusions: Not Present Perceptual Disturbances: Depersonalization and Derealization Thought Process: Distracted, Rumination and Goal Oriented Thought Content: positive for Circumstantial, positive for Goal Oriented, positive for Perseveration and positive for Preoccupation Depressive Symptoms: Increased Anxiety, Diff. Making Decisions and Low Self Esteem Judgement: Fair Diagnostics Vital Signs (24Hr): Vital Signs - 24 hr 12/03/20 08:44 12/03/20 08:45 Pulse Rate 85 85 Blood Pressure 113/73 113/73 Body Mass Index 24.4 Labs Results: 12/03/20 08:06 Labs: Laboratory Results - last 48 hr 12/01/20 12/02/20 12/02/20 21:46 05:00 11:47 Creatinine Estim Creat Clear Calc Estimated GFR POC Glucose 148 H 138 H 168 H 12/02/20 12/02/20 12/03/20 16:43 20:59 06:30 Creatinine Estim Creat Clear Calc Estimated GFR POC Glucose 94 99 94 12/03/20 12/03/20 08:06 16:54 Creatinine 0.75 Estim Creat Clear Calc 135.2 Estimated GFR > 60 POC Glucose 128 H Medications Medications Current Medications Generic Name Dose Route Start Last Admin Trade Name Freq PRN Reason Stop Dose Admin Acetaminophen 650 mg 11/20/20 18:33 11/30/20 22:18 Acetaminophen 325 Mg Tablet PO 650 mg Q6H PRN Administration Headache/Pain Mild Scale (1-3) Al Hydroxide/Mg Hydroxide 30 ml 11/20/20 18:33 Magnesium Hydrox/Alum Hydrox 30 Ml Oral.Susp PO Q6H PRN Heartburn/Nausea Albuterol Sulfate 2 puff 11/20/20 18:43 Albuterol Sulfate 90 Mcg 8 Gm Inhaler INHALE RQ4H PRN asthma Amlodipine Besylate 5 mg 11/21/20 09:00 12/03/20 08:45 Amlodipine Besylate 5 Mg Tablet PO 5 mg DAILY SHABBIR Administration Protocol Atorvastatin Calcium 20 mg 11/22/20 09:00 12/03/20 08:43 Atorvastatin Calcium 20 Mg Tablet PO 20 mg DAILY SHABBIR Administration Buprenorphine/Naloxone 2 film 11/21/20 11:00 12/03/20 10:21 Buprenorphine/Naloxone 8/2 Mg Film SUBLINGUAL 2 film 0900 SHABBIR Administration Buprenorphine/Naloxone 1 film 11/21/20 17:00 12/03/20 16:57 Buprenorphine/Naloxone 4/1 Mg Film SUBLINGUAL 1 film 1700 SHABBIR Administration Bupropion HCl 450 mg 11/24/20 08:00 12/03/20 08:44 Bupropion Hcl Xl 150 Mg Tab.Er.24h PO 450 mg DAILY SHABBIR Administration Diphenhydramine HCl 50 mg 11/25/20 11:42 Diphenhydramine Hcl 25 Mg Tablet PO Q6H PRN rash, itching Docusate Sodium 100 mg 11/21/20 20:33 11/25/20 04:51 Docusate Sodium 100 Mg Capsule PO 100 mg BID PRN Administration Constipation Duloxetine HCl 20 mg 11/27/20 09:00 12/03/20 08:44 Duloxetine Hcl 20 Mg Capsule. PO 20 mg DAILY SHABBIR Administration Ferrous Sulfate 324 mg 11/25/20 10:15 12/03/20 08:44 Ferrous Sulfate 324 Mg Tablet. PO 324 mg DAILY SHABBIR Administration Gabapentin 800 mg 11/20/20 21:00 12/03/20 14:41 Gabapentin 400 Mg Capsule PO 800 mg TID SHABBIR Administration Hydroxyzine HCl 25 mg 11/20/20 18:33 11/25/20 12:38 Hydroxyzine Hcl 25 Mg Tablet PO 25 mg Q6H PRN Administration Anxiety Insulin Glargine 70 unit 11/20/20 21:00 12/02/20 21:01 Insulin Glargine,Hum.Rec.Anlog 100 Unit/Ml 10 Ml Vial SUBCUT 70 unit BEDTIME SHABBIR Administration Insulin Human Lispro 0 unit 11/21/20 16:30 12/03/20 16:58 Insulin Lispro 100 Unit/Ml 3 Ml Vial SUBCUT Not Given TIDAC [facility] Protocol Lidocaine 2 patch 11/24/20 14:58 12/03/20 08:42 Lidocaine 4 % Patch Adh..Patch TRANSDERMA 2 patch DAILY PRN Administration leg pain Protocol Lisinopril 20 mg 11/22/20 09:00 12/03/20 08:44 Lisinopril 20 Mg Tablet PO 20 mg DAILY SHABBIR Administration Protocol Magnesium Hydroxide 30 ml 11/20/20 18:33 11/25/20 09:07 Milk Of Magnesia 30 Ml Oral.Susp PO 30 ml DAILY PRN Administration Constipation Metformin HCl 1,000 mg 11/21/20 08:00 12/03/20 16:57 Metformin Hcl 1,000 Mg Tablet PO 1,000 mg BIDWM SHABBIR Administration Multivitamins 1 tab 11/26/20 09:00 12/03/20 08:43 B-Complex With Vitamin C Tablet PO 1 tab DAILY SHABBIR Administration Multivitamins/Vitamin C 1 tab 11/21/20 09:00 12/03/20 08:44 Multivitamin Tablet PO 1 tab DAILY SHABBIR Administration Nicotine 21 mg 11/21/20 14:15 12/03/20 08:42 Nicotine 21 Mg Patch.Td24 TRANSDERMA 21 mg DAILY SHABBIR Administration Omeprazole 20 mg 11/21/20 06:30 12/03/20 08:44 Omeprazole 20 Mg Capsule. PO 20 mg DAILY@0630 SHABBIR Administration Quetiapine Fumarate 150 mg 11/27/20 09:00 12/03/20 08:44 Quetiapine Fumarate 50 Mg Tablet PO 150 mg DAILY SHABBIR Administration Quetiapine Fumarate 200 mg 11/26/20 21:00 12/02/20 21:04 Quetiapine Fumarate 200 Mg Tablet PO 200 mg BEDTIME SHABBIR Administration Sertraline HCl 75 mg 11/28/20 09:00 12/03/20 08:44 Sertraline Hcl 25 Mg Tablet PO 75 mg DAILY SHABBIR Administration Tamsulosin HCl 0.4 mg 11/21/20 09:00 12/03/20 08:44 Tamsulosin Hcl 0.4 Mg Capsule PO 0.4 mg DAILY SHABBIR Administration Trazodone HCl 100 mg 11/20/20 21:00 12/02/20 21:04 Trazodone Hcl 100 Mg Tablet PO 100 mg BEDTIME SHABBIR Administration Vitamin D 25 mcg 11/26/20 09:00 12/03/20 08:43 Cholecalciferol (Vitamin D3) 25 Mcg Tablet PO 25 mcg DAILY SHABBIR Administration Allergies Allergies Allergy/AdvReac Type Severity Reaction Status Date / Time levofloxacin [From Levaquin] Allergy Intermediate rash Verified 11/21/20 20:44 Assessment & Plan Assessment & Plan (1) MDD (major depressive disorder), recurrent, severe, with psychosis: Status: Acute Code(s): F33.3 - Major depressive disorder, recurrent, severe with psychotic symptoms Assessment and Plan: 45 yo male, history of recurrent severe major depression presents with SI, HI, relapse on substances along with being septic with UTI. Plan: Re-establish medication regime-pt reports previous regime has been effective. Assist pt in acceptance to [facility] if a bed is available Continue Suboxone therapy Discontinue Ceftin-Rash on bilateral forearms, stomach, chest. Consult with hospitalist-Varghese giordano Pt would like to see podiatry- will make follow up appt post discharge. 11/24/20: Increase in fear, paranoia today regarding owing people drug money? R/O UTI/ABX delirium, psychosis, or actual concern. Will increases Quetiapine a.m. and p.m. Neuropathic pain increase-? Cymbalta to replace Sertraline, Capsacin, Lidocaine Patch-will discuss further with pt. 11/25/20: Discontinue Ceftin, Nicotine Patch 21 mg; Nutritional Consult-ensure, change to regular diet (weight change 250 to 174 in ~4 months pt reports) 11/26/20: Begin Cymbalta 20 mg daily. Will cross taper with Sertraline. Goal: Improved mgt of depressive sx and assistance with pain mgt. 11/27/20: Decrease Sertraline to 75 mg daily, as pt is tolerating Cymbalta. Possible placement with [facility]. Re-ordered nutrition eval/Glucerna tid as pt reports he does not have enough choices for food on current plan. POC this a.m. 59. 11/28/20: Continue current regime at this time. CSS admission next week if a bed becomes available. 11/29/20 Continu with current treatment plan 11/30/20 continue with current plan 12/01/20 Continue current plan-Many of the programs we await to hear from are closed today due to hurjhoan Chavesri. CSS transfer when accepted. 12/02/20: Continue current plan of care. 12/03/20: Decrease Sertraline to 50 mg upon discharge. Continue Cymbalta. Pt concurs to ongoing cross titration. (2) Opiate dependence: Status: Chronic Code(s): F11.20 - Opioid dependence, uncomplicated Assessment and Plan: -Continue Suboxone therapy -Assist pt in acceptance to [facility] if a bed is available (3) BPH (benign prostatic hyperplasia): Status: Acute Code(s): N40.0 - Benign prostatic hyperplasia without lower urinary tract symptoms Assessment and Plan: Continue current regimen and plans (4) Alcohol use: Status: Acute Code(s): Z72.89 - Other problems related to lifestyle Assessment and Plan: No current symptoms of withdrawal. Assessment and Plan: As noted above. Greater than 50% of the session was spent on counseling and/or coordination of care Reason for contiued inpatient stay Substantial Risk for: harm to self and rapid decompensation
[2020-12-03 18:00] VITALS: BP 114/68; PULSE 74; RESP 16; TEMP 36.1; O2SAT 97
[2020-12-03] MEDS: Insulin Glargine,Hum.rec.anlog 100 UNIT/ML 10 ML VIAL 70 UNIT SUBCUT (21:12)
[2020-12-03] MEDS: traZODone HCL 100 MG TABLET PO (21:12)
[2020-12-03] MEDS: QUEtiapine Fumarate 200 MG TABLET PO (21:12)
[2020-12-04 06:45] LABS: Glucose, Whole Blood 97 mg/dL (60-115)
[2020-12-04] MEDS: Nicotine 21 MG PATCH.TD24 TRANSDERMA (08:28)
[2020-12-04] MEDS: Sertraline HCL 25 MG TABLET 75 MG PO (08:28)
[2020-12-04] MEDS: buPROPion HCl XL 150 MG TAB.ER.24H 450 MG PO (08:28)
[2020-12-04] MEDS: Gabapentin 400 MG CAPSULE 800 MG PO (08:28)
[2020-12-04] MEDS: Cholecalciferol (Vitamin D3) 25 MCG TABLET PO (08:28)
[2020-12-04] MEDS: Omeprazole 20 MG CAPSULE.DR PO (08:29)
[2020-12-04] MEDS: Atorvastatin Calcium 20 MG TABLET PO (08:29)
[2020-12-04] MEDS: QUEtiapine Fumarate 50 MG TABLET 150 MG PO (08:29)
[2020-12-04] MEDS: Ferrous Sulfate 324 MG TABLET.DR PO (08:30)
[2020-12-04] MEDS: Tamsulosin HCL 0.4 MG CAPSULE PO (08:30)
[2020-12-04] MEDS: Multivitamin TABLET 1 TAB PO (08:30)
[2020-12-04] MEDS: metFORMIN HCl 1,000 MG TABLET 1000 MG PO (08:30)
[2020-12-04] MEDS: DULoxetine HCl 20 MG CAPSULE.DR PO (08:30)
[2020-12-04 08:36] VITALS: BP 119/75; PULSE 81
[2020-12-04] MEDS: lisinopriL 20 MG TABLET PO (08:36)
[2020-12-04 09:28] VITALS: BP 119/75
[2020-12-04] MEDS: amLODIPine Besylate 5 MG TABLET PO (09:28)
[2020-12-04] MEDS: Buprenorphine/Naloxone 8/2 mg FILM 2 FILM SUBLINGUAL (09:32)
[2020-12-04] MEDS: Acetaminophen 325 MG TABLET 650 MG PO (09:32)
[2020-12-04] MEDS: Lidocaine 4 % Patch ADH..PATCH 2 PATCH TRANSDERMA (09:32)
--- NOTE | 2020-12-04 21:01 | PM.PSYDC ---
DS: Providers Provider Date of Service: 12/04/20 Date of admission: 11/20/20 17:14 Date of discharge: 12/04/20 Primary care physician: Pato Shaikh MD Admitting clinician: Jenn Berry Attending physician on admission: Jonathan Mitchell Attending physician on discharge: Jonathan Mitchell Discharging clinician: Jenn Berry DS: Diagnosis Discharge Diagnosis (1) MDD (major depressive disorder), recurrent, severe, with psychosis: Status: Acute (2) Opiate dependence: Status: Chronic (3) BPH (benign prostatic hyperplasia): (4) Alcohol use: DS: Medications Discharge Medications Home Medications: Previous Rx's Medication Instructions Recorded B-complex with vitamin C 1 tab PO DAILY #30 tab 12/04/20 albuterol sulfate 90 mcg/actuation 2 puff INHALATION Q4H PRN 30 Days 12/04/20 aerosol inhaler (ProAir HFA) #6.7 g amlodipine 5 mg tablet (Norvasc) 5 mg PO DAILY #30 tab 12/04/20 atorvastatin 20 mg tablet 1 tab PO DAILY #30 tab 12/04/20 buprenorphine 8 mg-naloxone 2 mg 1 film SUBLINGUAL QPM #4 ea 12/04/20 sublingual film buprenorphine 8 mg-naloxone 2 mg 2 film SUBLINGUAL DAILY #8 ea 12/04/20 sublingual film (Suboxone) bupropion HCl 150 mg 24 hr tablet, 450 mg PO DAILY #90 tab 12/04/20 extended release cholecalciferol (vitamin D3) 25 25 mcg PO DAILY #30 tab 12/04/20 mcg (1,000 unit) tablet docusate sodium 100 mg capsule 1 cap PO BID PRN #60 cap 12/04/20 duloxetine 20 mg capsule,delayed 20 mg PO DAILY #30 cap 12/04/20 release ferrous sulfate 324 mg (65 mg 324 mg PO DAILY #30 tab 12/04/20 iron) tablet,delayed release gabapentin 800 mg tablet 800 mg PO TID 15 Days #45 tab 12/04/20 insulin glargine 100 unit/mL 70 unit SUBCUT BEDTIME 30 Days #21 12/04/20 subcutaneous solution (Lantus ml U-100 Insulin) insulin lispro 100 unit/mL 2 - 10 unit SUBCUT TIDAC #10 ml 12/04/20 subcutaneous solution (Humalog U-100 Insulin) lidocaine 4 % topical patch 2 patch TRANSDERMAL DAILY PRN #30 12/04/20 (Lidocaine Pain Relief) ea lisinopril 20 mg tablet 20 mg PO DAILY 30 Days #30 tab 12/04/20 metformin 1,000 mg tablet 1,000 mg PO BIDWM 30 Days #60 tab 12/04/20 multivitamin (One Daily 1 tab PO QAM #30 tab 12/04/20 Multivitamin) naloxone 4 mg/actuation nasal 1 spray INTRANASAL NEEDED PRN 1 12/04/20 spray (Narcan) Days #2 ea nicotine 21 mg/24 hr daily 1 patch TOPICAL DAILY PRN #30 ea 12/04/20 transdermal patch omeprazole 20 mg capsule,delayed 20 mg PO DAILY 30 Days #30 cap 12/04/20 release quetiapine 200 mg tablet 200 mg PO BEDTIME #15 tab 12/04/20 quetiapine 50 mg tablet 150 mg PO DAILY #15 tab 12/04/20 sertraline 50 mg tablet 50 mg PO DAILY #30 tab 12/04/20 tamsulosin 0.4 mg capsule 0.4 mg PO QAM 30 Days #30 cap 12/04/20 trazodone 100 mg tablet 100 mg PO BEDTIME 30 Days #30 tab 12/04/20 Mental Status Exam Mental Status Exam Patient Appearance: Appropriate Patient Orientation: Person, Place, Time and Situation Level of Consciousness: Alert Patient Behavior: Appropriate, Talkative, Cooperative and Good Eye Contact Mood Description: Constricted Affect Description: Constricted Patient Cognition Impaired: No Ability to Follow Directions: Good Speech Pattern: Spontaneous Speech Memory Description: Intact Hallucinations: None Delusions: Not Present Thought Process: Distracted and Goal Oriented Thought Content: positive for Circumstantial and positive for Goal Oriented Depressive Symptoms: Low Self Esteem Judgement: Good Data Data Completed and Pending Completed studies during hospitalization [Text1]: 11/27/20 11/27/20 11/28/20 16:55 20:47 06:23 Creatinine Estim Creat Clear Calc Estimated GFR POC Glucose 116 H 134 H 95 11/28/20 11/28/20 11/28/20 12:11 16:35 20:40 Creatinine Estim Creat Clear Calc Estimated GFR POC Glucose 147 H 158 H 228 H 11/29/20 11/29/20 11/29/20 06:50 12:08 17:40 Creatinine Estim Creat Clear Calc Estimated GFR POC Glucose 89 132 H 148 H 11/29/20 11/30/20 11/30/20 20:01 06:58 12:10 Creatinine Estim Creat Clear Calc Estimated GFR POC Glucose 101 107 136 H 11/30/20 11/30/20 12/01/20 17:18 22:02 07:10 Creatinine Estim Creat Clear Calc Estimated GFR POC Glucose 71 168 H 124 H 12/01/20 12/01/20 12/01/20 12:35 17:12 21:46 Creatinine Estim Creat Clear Calc Estimated GFR POC Glucose 178 H 139 H 148 H 12/02/20 12/02/20 12/02/20 05:00 11:47 16:43 Creatinine Estim Creat Clear Calc Estimated GFR POC Glucose 138 H 168 H 94 12/02/20 12/03/20 12/03/20 20:59 06:30 08:06 Creatinine 0.75 Estim Creat Clear Calc 135.2 Estimated GFR > 60 POC Glucose 99 94 12/03/20 12/04/20 16:54 06:42 Creatinine Estim Creat Clear Calc Estimated GFR POC Glucose 128 H 97 DS: Summary Hospital Course Hospital Course: 45 yo male who presented to [facility] ER via ambulance s/p overdose of cocaine and heroin. He was transferred to psychiatry after medical clearance and worked with the team on management of his symptoms, medication titration and aftercare planning. He requested CSS admission and several applications were sent, including one to the [facility] [place] where he had been admitted in the past and had done well. The wait for these programs was significant and he expressed frustration with this waiting time. The [facility] Program offered him an intake on the day of discharge for placement, however, pt chose to leave the hospital to stay with his partner and continue the process of CSS application that was started in hospital indepedently. Time spent discussing smoking cessation with patient: 3 to 10 minutes Status at Discharge Cognitive/behavioral status at discharge: non-psychotic, non-suicidal, alert, mood neutral has made changes to his discharge plan at his direction. Functional status at discharge: independent ambulation Overall status at discharge: patient is back to baseline Time Spent with Patient Time attestation: Total time spent providing and/or coordinating discharge services:40 Time spent: Greater than 30 minutes Discharge Plan Discharge Anticipated Discharge Date/Time: 12/04/20 12:30 Patient Disposition: Home, Self-Care Discharge Diagnosis: Recurrent Major Depression, Severe with psychotic features Opioid Dependence-currently on maintenance therapy with Suboxone Referrals: [facility] [Other] - 12/05/20 9:00 am (CSS Referral Patient needs to call for follow-up after discharge from [facility] to determine if placement available.) [facility] [Other] - 12/05/20 9:00 am (CSS Referral Patient needs to call daily to determine if placement available following discharge from [facility].) [facility] [Other[facility] - 12/05/20 9:00 am (CSS Referral Patient needs to call daily to see if CSS placement available following his discharge from [facility] Living Room [Other] - 12/04/20 4:00 pm (Referral to [facility] Living room Patient needs to present self to agency for increased support following his discharge from [facility]. Arrive at 4:00 pm for interview with staff for overnight placement.) Pato Gastelum MD [Primary Care Provider] - 12/08/20 10:00 am (via phone) Discharge Medications: New ferrous sulfate 324 mg (65 mg iron) Tablet,Delayed Release (Dr/Ec) 324 mg PO DAILY Qty: 30 RF: 0 bupropion HCl 150 mg Tablet Extended Release 24 Hr 450 mg PO DAILY Qty: 90 RF: 0 duloxetine 20 mg Capsule,Delayed Release(Dr/Ec) 20 mg PO DAILY Qty: 30 RF: 0 lidocaine [Lidocaine Pain Relief] 4 % Adhesive Patch,Medicated 2 patch transdermal DAILY PRN (Reason: leg pain) Qty: 30 RF: 0 quetiapine 200 mg Tablet 200 mg PO BEDTIME Qty: 15 RF: 1 B-complex with vitamin C Tablet 1 tab PO DAILY Qty: 30 RF: 0 quetiapine 50 mg Tablet 150 mg PO DAILY Qty: 15 RF: 1 cholecalciferol (vitamin D3) 25 mcg (1,000 unit) Tablet 25 mcg PO DAILY Qty: 30 RF: 0 sertraline 50 mg tablet 50 mg PO DAILY Qty: 30 RF: 0 Continued multivitamin [One Daily Multivitamin] Tablet 1 tab PO QAM Qty: 30 RF: 0 atorvastatin 20 mg tablet 1 tab PO DAILY Qty: 30 RF: 0 Lantus U-100 Insulin 100 unit/mL solution 70 unit subcut BEDTIME 30 Days Qty: 21 RF: 0 lisinopril 20 mg Tablet 20 mg PO DAILY 30 Days Qty: 30 RF: 0 amlodipine [Norvasc] 5 mg tablet 5 mg PO DAILY Qty: 30 RF: 0 tamsulosin 0.4 mg capsule 0.4 mg PO QAM 30 Days Qty: 30 RF: 0 gabapentin 800 mg tablet 800 mg PO TID 15 Days Qty: 45 RF: 1 trazodone 100 mg tablet 100 mg PO BEDTIME 30 Days Qty: 30 RF: 0 metformin 1,000 mg Tablet 1,000 mg PO BIDWM 30 Days Qty: 60 RF: 0 nicotine 21 mg/24 hr patch 24 hour 1 patch topical DAILY PRN (Reason: Nicotine Cravings) Qty: 30 RF: 0 docusate sodium 100 mg capsule 1 cap PO BID PRN (Reason: constipation) Qty: 60 RF: 0 omeprazole 20 mg Capsule,Delayed Release(Dr/Ec) 20 mg PO DAILY 30 Days Qty: 30 RF: 0 insulin lispro [Humalog U-100 Insulin] 100 unit/mL solution 2 - 10 unit subcut TIDAC Qty: 10 RF: 0 albuterol sulfate [ProAir HFA] 90 mcg/actuation HFA aerosol inhaler 2 puff inhalation Q4H PRN (Reason: wheezing) 30 Days Qty: 6.7 RF: 0 Narcan 4 mg/actuation spray,non-aerosol 1 spray intranasal NEEDED PRN (Reason: Opioid Overdose) 1 Days Qty: 2 RF: 0 buprenorphine-naloxone 8-2 mg film 1 film sublingual QPM Qty: 4 RF: 0 buprenorphine-naloxone [Suboxone] 8-2 mg film 2 film sublingual DAILY Qty: 8 RF: 0 Discontinued sertraline 100 mg tablet 100 mg PO QAM 30 Days Qty: 30 RF: 0 quetiapine 100 mg tablet 100 mg PO BID RF: 0 bupropion HCl 150 mg tablet extended release 24 hr 300 mg PO DAILY RF: 0 cefuroxime axetil 500 mg tablet 500 mg PO BID 7 Days Qty: 14 RF: 0 Discharge Orders: Discharge Order (Routine); Ordered 12/04/20 Ordered By: Jenn Berry Diet: advance to usual diet Activity on Discharge: As tolerated Stand Alone Forms: Patient Portal Discharge page Care Plan Goals: Mood Stabilization Sobriety Health Concerns: Major Depression Opiate Dependence Diabetes Hypertension High Cholesterol Anemia GERD Benign Prostatic Hypertrophy Plan of Treatment: Take medications as directed Follow up with primary care team for medical issues Attend scheduled appointments [facility] has offered to do an intake today at 4pm to assess for housing. CSS Programs are still pending your admission. Continue to call [facility] in fall to see when you may be admitted. We have contacted [facility] to inform her you will be calling for a return appointment. They welcome your returrn. Assessment: Pt reports frustration with the wait for CSS admission. He is non suicidal, non psychotic and plans to have his girlfriend come to pick him up. He reports he will stay with friends He refuses to wait until we have an affirmative admission acceptance from one of the several CSS admits that have been applied for and demands discharge. Discharge Date/Time: 12/04/20 12:35
== END 2020-12-04 12:35 | disposition home or self-care (01) | DRG 751 ==
PROVIDERS: Admitting Provider Psychiatry & Neurology Psychiatry; PCP Internal Medicine; Visit Provider Clinical Nurse Specialist Psychiatric/Mental Health, Adult
DX: F33.3 Major depressive disorder, recurrent, severe with psychotic symptoms (principal); E11.42 Type 2 diabetes mellitus with diabetic polyneuropathy; E11.649 Type 2 diabetes mellitus with hypoglycemia without coma; F11.20 Opioid dependence, uncomplicated; R45.850 Homicidal ideations; R45.851 Suicidal ideations; F17.210 Nicotine dependence, cigarettes, uncomplicated; N39.0 Urinary tract infection, site not specified; N40.0 Benign prostatic hyperplasia without lower urinary tract symptoms; T36.8X5A Adverse effect of other systemic antibiotics, initial encounter; L27.0 Generalized skin eruption due to drugs and medicaments taken internally; Z59.0 Homelessness; Z71.6 Tobacco abuse counseling; Z79.4 Long term (current) use of insulin; Z79.899 Other long term (current) drug therapy
CPT/HCPCS: 36415; 80053; 82565; 82947; J1650; Q0163

== ENCOUNTER 2021-02-14 06:50 | Emergency (ER) | payer MEDICAID, SELFPAY ==
--- NOTE | 2021-02-14 | ECG_ITS ---
Test Reason : MED CLEARANCE Blood Pressure : / mmHG Vent. Rate : 069 BPM Atrial Rate : 069 BPM P-R Int : 150 ms QRS Dur : 142 ms QT Int : 480 ms P-R-T Axes : 000 010 063 degrees QTc Int : 514 ms Poor data quality, interpretation may be adversely affected Normal sinus rhythm Right bundle branch block Abnormal ECG When compared with ECG of 14-FEB-2021 07:17, No significant change was found Referred By: Fernando Campo Electronically Signed By:PRECIOUS BLACK MD
--- NOTE | ~2021-02-14 | XR_ITS ---
EXAMINATION: XR CHEST CLINICAL INFORMATION: Chest pain COMPARISON: November 16, 2020 TECHNIQUE: AP portable view of the chest was obtained. FINDINGS: No significant abnormality is noted involving the heart, lungs, mediastinum, bony thorax or soft tissues. XR/XR chest 1V IMPRESSION: No acute disease.
--- NOTE | 2021-02-14 07:09 | ECG_ITS ---
Test Reason : MED CLEARANCE Blood Pressure : / mmHG Vent. Rate : 078 BPM Atrial Rate : 078 BPM P-R Int : 156 ms QRS Dur : 148 ms QT Int : 454 ms P-R-T Axes : -25 000 056 degrees QTc Int : 517 ms Normal sinus rhythm Right bundle branch block Abnormal ECG When compared with ECG of 20-NOV-2020 15:56, No significant change was found Heart rate has increased Referred By: Generic ED Physician Electronically Signed By:PRECIOUS BLACK MD
[2021-02-14 07:16] LABS: Glucose, Whole Blood 118 mg/dL (60-115)
[2021-02-14 07:30] VITALS: BP 148/82; BP 156/93; PULSE 89; PULSE 96; RESP 18; TEMP 37.2; O2SAT 96; O2SAT 98; BMI 28.1
--- NOTE | 2021-02-14 07:57 | ED.GENADULT ---
HPI - General Adult General Chief complaint: Psychiatric Symptoms Stated complaint: SI AND DRUG USE Time Seen by Provider: 02/14/21 07:55 History of Present Illness HPI narrative: Patient is 45 years old presents today with having chest pain. The pain is in the left chest. Patient had cocaine heroin and alcohol then had the chest pain. It is sharp in nature. Constant. Patient has been having the pain for about 6 hours. No diaphoresis. Patient is from home. Also history of diabetes, hypertension, high cholesterol. Patient noncompliant with medication. Positive psychiatric history as well. Related Data Previous Rx's Medication Instructions Recorded B-complex with vitamin C 1 tab PO DAILY #30 tab 12/04/20 albuterol sulfate 90 mcg/actuation 2 puff INHALATION Q4H PRN 30 Days 12/04/20 aerosol inhaler (ProAir HFA) #6.7 g amlodipine 5 mg tablet (Norvasc) 5 mg PO DAILY #30 tab 12/04/20 atorvastatin 20 mg tablet 1 tab PO DAILY #30 tab 12/04/20 buprenorphine 8 mg-naloxone 2 mg 1 film SUBLINGUAL QPM #4 ea 12/04/20 sublingual film buprenorphine 8 mg-naloxone 2 mg 2 film SUBLINGUAL DAILY #8 ea 12/04/20 sublingual film (Suboxone) bupropion HCl 150 mg 24 hr tablet, 450 mg PO DAILY #90 tab 12/04/20 extended release cholecalciferol (vitamin D3) 25 25 mcg PO DAILY #30 tab 12/04/20 mcg (1,000 unit) tablet docusate sodium 100 mg capsule 1 cap PO BID PRN #60 cap 12/04/20 duloxetine 20 mg capsule,delayed 20 mg PO DAILY #30 cap 12/04/20 release ferrous sulfate 324 mg (65 mg 324 mg PO DAILY #30 tab 12/04/20 iron) tablet,delayed release gabapentin 800 mg tablet 800 mg PO TID 15 Days #45 tab 12/04/20 insulin glargine 100 unit/mL 70 unit (0.7 mL) SUBCUT BEDTIME 30 12/04/20 subcutaneous solution (Lantus Days #21 ml U-100 Insulin) insulin lispro 100 unit/mL 2 - 10 unit (0.02 - 0.1 mL) SUBCUT 12/04/20 subcutaneous solution (Humalog TIDAC #10 ml U-100 Insulin) lidocaine 4 % topical patch 2 patch TRANSDERMAL DAILY PRN #30 12/04/20 (Lidocaine Pain Relief) ea lisinopril 20 mg tablet 20 mg PO DAILY 30 Days #30 tab 12/04/20 metformin 1,000 mg tablet 1,000 mg PO BIDWM 30 Days #60 tab 12/04/20 multivitamin (One Daily 1 tab PO QAM #30 tab 12/04/20 Multivitamin) naloxone 4 mg/actuation nasal 1 spray INTRANASAL NEEDED PRN 1 12/04/20 spray (Narcan) Days #2 ea nicotine 21 mg/24 hr daily 1 patch TOPICAL DAILY PRN #30 ea 12/04/20 transdermal patch omeprazole 20 mg capsule,delayed 20 mg PO DAILY 30 Days #30 cap 12/04/20 release quetiapine 200 mg tablet 200 mg PO BEDTIME #15 tab 12/04/20 quetiapine 50 mg tablet 150 mg PO DAILY #15 tab 12/04/20 sertraline 50 mg tablet 50 mg PO DAILY #30 tab 12/04/20 tamsulosin 0.4 mg capsule 0.4 mg PO QAM 30 Days #30 cap 12/04/20 trazodone 100 mg tablet 100 mg PO BEDTIME 30 Days #30 tab 12/04/20 Allergies Allergy/AdvReac Type Severity Reaction Status Date / Time levofloxacin [From Levaquin] Allergy Intermediate rash Verified 11/21/20 20:44 Review of Systems Review of Systems: No fever no chills Positive chest pain No shortness of breath Positive history of polysubstance abuse Plus systems reviewed otherwise negative PMFSH Past Medical History Attestation statement: The following information was validated with the patient. Medical History Alcohol use Alcohol use Alcohol use disorder, severe, dependence BPH (benign prostatic hyperplasia) (~10/11/20) Chronic pain Diverticulitis DM II (diabetes mellitus, type II), controlled High cholesterol (~10/11/20) HTN (hypertension) Marijuana use MDD (major depressive disorder), recurrent episode, severe Neuropathy Opiate dependence Opioid use disorder Opioid use disorder Stimulant use disorder Tobacco use disorder Urinary hesitancy Social History Social History Household Members: None Housing: Homeless Do you presently have visiting nurse or other home services: No Unable to assess alcohol history related to: Refusing to respond Alcohol intake: current Alcohol intake frequency: 0-2 drinks per day Alcohol type: beer and hard liquor Patient Tobacco Use Status: Current everyday Tobacco user Tobacco use type: Cigarette Cigarette Packs Per Day: 1.5 Cigarettes Per Day: 15 Years Smoked: 38 e-Cigarette/Vaping Use: Never Used Second Hand Smoke Exposure: No Substance Use Type: Crack/Cocaine and Heroin Advance Directives: No Advance Directives Information Provided: No service: No Current occupational status: unemployed Sexual orientation: Straight/Heterosexual Physical Exam Vital Signs: Vital Signs: Last Vital Signs Temp 99 F 02/14/21 07:30 Pulse 89 02/14/21 07:30 Resp 18 02/14/21 07:30 BP 156/93 H 02/14/21 07:30 Pulse Ox 96 02/14/21 07:30 Body Mass Index 28.1 Appearance: Alert. Oriented X3. No acute distress. Eyes: Pupils equal, round and reactive to light. ENT: Pharynx normal. Neck: Normal inspection. Neck supple. No lymph nodes noted. No crepitus CVS: Normal heart rate and rhythm. Pulses normal. Normal S1 and S2 Respiratory: No respiratory distress. Breath sounds normal. No Wheezing. No rales Abdomen: Soft and nontender. No rigidity. No distention. good BS x4 Skin: Skin warm and dry. Normal skin color. Normal skin turgor. Extremities: No lower extremity edema. Neurovascular intact to all extremities. No Lacerations. No Rash Neuro: Oriented X 3. No motor deficit. No sensory deficit. Moving all extermities. No slurred speech Medical Decision Making MDM Narrative Medical decision making narrative: Patient's EKG showed a sinus pattern heart rate is 80 NC within normal limits. There is QT prolongation of 520. In addition patient has a right bundle-branch block. is T-wave inversions over the anterior leads which is old. Patient medically cleared awaiting crisis evaluation Lab Data Result diagrams: 02/14/21 08:35 02/14/21 08:35 Labs: Lab Results 02/14/21 02/14/21 02/14/21 Range/Units 07:12 08:18 08:18 WBC (4.8-10.8) X10*3/uL RBC (4.60-5.80) X10*6/uL Hgb (14.0-18.0) g/dl Hct (42.0-52.0) % MCV (80.0-98.0) fL MCH (27.0-33.0) pg MCHC (31.0-36.0) g/dl RDW (11.0-16.0) % Plt Count (160-400) X10*3/uL MPV (9.4-12.4) fL Immature Gran % (Auto) (0.0-0.4) % Neut % (Auto) (45-73) % Lymph % (Auto) (20-40) % [place] % (Auto) (2-11) % Eos % (Auto) (0-4) % Baso % (Auto) (0-2) % Lymph # (Auto) (1.2-4.9) X10*3/uL [place] # (Auto) (0.1-1.2) X10*3/uL Eos # (Auto) (0.0-0.4) X10*3/uL Baso # (Auto) (0.0-0.2) X10*3/uL Abs Immat Gran (auto) (0.00-0.03) X10*3/uL Absolute Neuts (auto) (2.0-8.3) x10*3/uL Absolute Nucleated RBC (0.0-0.012) X10*3/uL Nucleated RBC % (auto) (0.0-0.2) /100WBC Smear Tech's Comments Sodium (135-145) mmol/L Potassium (3.3-5.1) mmol/L Chloride (96-108) mmol/L Carbon Dioxide (22-29) mmol/L Anion Gap (12-20) BUN (9-16) mg/dL Creatinine (0.5-1.4) mg/dL Estim Creat Clear Calc Estimated GFR POC Glucose 118 H (60-115) mg/dL Random Glucose (60-115) mg/dL Calcium (8.4-10.2) mg/dL Total Bilirubin (0.0-1.0) mg/dL AST (5-37) U/L ALT (0-40) U/L Alkaline Phosphatase (39-117) U/L Troponin I High Sens (<3.5-35.0) ng/L Total Protein (6.5-8.0) g/dL Albumin (3.5-5.0) g/dL Urine Color Urine Appearance Urine pH (5.0-8.0) Ur Specific [place] (1.005-1.025) Urine Protein (NEG-TRACE) MG/DL Urine Glucose (UA) (NEG) MG/DL Urine Ketones (NEG) MG/DL Urine Blood (NEG) Urine Nitrite (NEG) Ur Leukocyte Esterase (NEG) Urine RBC (0) /HPF Urine WBC (0-4) /HPF Ur Squamous Epith Cells /LPF Urine Bacteria /LPF Urine Opiates Screen POSITIVE H (Not Detect) Urine Fentanyl Screen POSITIVE H (Not Detect) Ur Barbiturates Screen Not Detected (Not Detect) Ur Phencyclidine Scrn Not Detected (Not Detect) Ur Amphetamines Screen Not Detected (Not Detect) U Benzodiazepines Scrn Not Detected (Not Detect) Urine Cocaine Screen POSITIVE H (Not Detect) U Marijuana (THC) Screen POSITIVE H (Not Detect) Ethyl Alcohol < 10 mg/dL COVID-19 (DELIO) (Negative) COVID-19 Clin Com 02/14/21 02/14/21 02/14/21 Range/Units 08:18 08:20 08:35 WBC 10.7 (4.8-10.8) X10*3/uL RBC 4.38 L (4.60-5.80) X10*6/uL Hgb 13.2 L (14.0-18.0) g/dl Hct 37.7 L (42.0-52.0) % MCV 86.1 (80.0-98.0) fL MCH 30.1 (27.0-33.0) pg MCHC 35.0 (31.0-36.0) g/dl RDW 13.0 (11.0-16.0) % Plt Count 268 (160-400) X10*3/uL MPV 10.1 (9.4-12.4) fL Immature Gran % (Auto) 0.5 H (0.0-0.4) % Neut % (Auto) 83.4 H (45-73) % Lymph % (Auto) 9.0 L (20-40) % [place] % (Auto) 6.7 (2-11) % Eos % (Auto) 0.1 (0-4) % Baso % (Auto) 0.3 (0-2) % Lymph # (Auto) 1.0 L (1.2-4.9) X10*3/uL [place] # (Auto) 0.7 (0.1-1.2) X10*3/uL Eos # (Auto) 0.0 (0.0-0.4) X10*3/uL Baso # (Auto) 0.0 (0.0-0.2) X10*3/uL Abs Immat Gran (auto) 0.05 H (0.00-0.03) X10*3/uL Absolute Neuts (auto) 8.9 H (2.0-8.3) x10*3/uL Absolute Nucleated RBC 0.000 (0.0-0.012) X10*3/uL Nucleated RBC % (auto) 0.0 (0.0-0.2) /100WBC Smear Tech's Comments VERIFIED Sodium (135-145) mmol/L Potassium (3.3-5.1) mmol/L Chloride (96-108) mmol/L Carbon Dioxide (22-29) mmol/L Anion Gap (12-20) BUN (9-16) mg/dL Creatinine (0.5-1.4) mg/dL Estim Creat Clear Calc Estimated GFR POC Glucose (60-115) mg/dL Random Glucose (60-115) mg/dL Calcium (8.4-10.2) mg/dL Total Bilirubin (0.0-1.0) mg/dL AST (5-37) U/L ALT (0-40) U/L Alkaline Phosphatase (39-117) U/L Troponin I High Sens (<3.5-35.0) ng/L Total Protein (6.5-8.0) g/dL Albumin (3.5-5.0) g/dL Urine Color YELLOW Urine Appearance HAZY Urine pH 6.0 (5.0-8.0) Ur Specific [place] >= 1.030 H (1.005-1.025) Urine Protein TRACE (NEG-TRACE) MG/DL Urine Glucose (UA) NEG (NEG) MG/DL Urine Ketones 15 (NEG) MG/DL Urine Blood 2+ H (NEG) Urine Nitrite NEG (NEG) Ur Leukocyte Esterase 1+ H (NEG) Urine RBC 5-9 H (0) /HPF Urine WBC TNTC H (0-4) /HPF Ur Squamous Epith Cells TRACE /LPF Urine Bacteria 1+ /LPF Urine Opiates Screen (Not Detect) Urine Fentanyl Screen (Not Detect) Ur Barbiturates Screen (Not Detect) Ur Phencyclidine Scrn (Not Detect) Ur Amphetamines Screen (Not Detect) U Benzodiazepines Scrn (Not Detect) Urine Cocaine Screen (Not Detect) U Marijuana (THC) Screen (Not Detect) Ethyl Alcohol mg/dL COVID-19 (DELIO) Negative (Negative) COVID-19 Clin Com See Note 02/14/21 02/14/21 02/14/21 Range/Units 08:35 08:35 11:31 WBC (4.8-10.8) X10*3/uL RBC (4.60-5.80) X10*6/uL Hgb (14.0-18.0) g/dl Hct (42.0-52.0) % MCV (80.0-98.0) fL MCH (27.0-33.0) pg MCHC (31.0-36.0) g/dl RDW (11.0-16.0) % Plt Count (160-400) X10*3/uL MPV (9.4-12.4) fL Immature Gran % (Auto) (0.0-0.4) % Neut % (Auto) (45-73) % Lymph % (Auto) (20-40) % [place] % (Auto) (2-11) % Eos % (Auto) (0-4) % Baso % (Auto) (0-2) % Lymph # (Auto) (1.2-4.9) X10*3/uL [place] # (Auto) (0.1-1.2) X10*3/uL Eos # (Auto) (0.0-0.4) X10*3/uL Baso # (Auto) (0.0-0.2) X10*3/uL Abs Immat Gran (auto) (0.00-0.03) X10*3/uL Absolute Neuts (auto) (2.0-8.3) x10*3/uL Absolute Nucleated RBC (0.0-0.012) X10*3/uL Nucleated RBC % (auto) (0.0-0.2) /100WBC Smear Tech's Comments Sodium 135 (135-145) mmol/L Potassium 3.2 L D (3.3-5.1) mmol/L Chloride 96 (96-108) mmol/L Carbon Dioxide 24 (22-29) mmol/L Anion Gap 18 (12-20) BUN 14 (9-16) mg/dL Creatinine 0.81 (0.5-1.4) mg/dL Estim Creat Clear Calc 132.0 Estimated GFR > 60 POC Glucose 104 (60-115) mg/dL Random Glucose 100 D (60-115) mg/dL Calcium 8.6 (8.4-10.2) mg/dL Total Bilirubin 1.9 H (0.0-1.0) mg/dL AST 180 H (5-37) U/L ALT 97 H (0-40) U/L Alkaline Phosphatase 60 D (39-117) U/L Troponin I High Sens 5.3 (<3.5-35.0) ng/L Total Protein 7.4 (6.5-8.0) g/dL Albumin 4.2 (3.5-5.0) g/dL Urine Color Urine Appearance Urine pH (5.0-8.0) Ur Specific [place] (1.005-1.025) Urine Protein (NEG-TRACE) MG/DL Urine Glucose (UA) (NEG) MG/DL Urine Ketones (NEG) MG/DL Urine Blood (NEG) Urine Nitrite (NEG) Ur Leukocyte Esterase (NEG) Urine RBC (0) /HPF Urine WBC (0-4) /HPF Ur Squamous Epith Cells /LPF Urine Bacteria /LPF Urine Opiates Screen (Not Detect) Urine Fentanyl Screen (Not Detect) Ur Barbiturates Screen (Not Detect) Ur Phencyclidine Scrn (Not Detect) Ur Amphetamines Screen (Not Detect) U Benzodiazepines Scrn (Not Detect) Urine Cocaine Screen (Not Detect) U Marijuana (THC) Screen (Not Detect) Ethyl Alcohol mg/dL COVID-19 (DELIO) (Negative) COVID-19 Clin Com Discharge Plan Discharge Clinical Impression: Opiate dependence, Suicidal ideation Prescriptions: No Action ferrous sulfate 324 mg (65 mg iron) Tablet,Delayed Release (Dr/Ec) 324 mg PO DAILY Qty: 30 RF: 0 bupropion HCl 150 mg Tablet Extended Release 24 Hr 450 mg PO DAILY Qty: 90 RF: 0 duloxetine 20 mg Capsule,Delayed Release(Dr/Ec) 20 mg PO DAILY Qty: 30 RF: 0 lidocaine [Lidocaine Pain Relief] 4 % Adhesive Patch,Medicated 2 patch transdermal DAILY PRN (Reason: leg pain) Qty: 30 RF: 0 quetiapine 200 mg Tablet 200 mg PO BEDTIME Qty: 15 RF: 1 B-complex with vitamin C Tablet 1 tab PO DAILY Qty: 30 RF: 0 quetiapine 50 mg Tablet 150 mg PO DAILY Qty: 15 RF: 1 cholecalciferol (vitamin D3) 25 mcg (1,000 unit) Tablet 25 mcg PO DAILY Qty: 30 RF: 0 sertraline 50 mg tablet 50 mg PO DAILY Qty: 30 RF: 0 multivitamin [One Daily Multivitamin] Tablet 1 tab PO QAM Qty: 30 RF: 0 atorvastatin 20 mg tablet 1 tab PO DAILY Qty: 30 RF: 0 Lantus U-100 Insulin 100 unit/mL solution 70 unit subcut BEDTIME 30 Days Qty: 21 RF: 0 lisinopril 20 mg Tablet 20 mg PO DAILY 30 Days Qty: 30 RF: 0 amlodipine [Norvasc] 5 mg tablet 5 mg PO DAILY Qty: 30 RF: 0 tamsulosin 0.4 mg capsule 0.4 mg PO QAM 30 Days Qty: 30 RF: 0 gabapentin 800 mg tablet 800 mg PO TID 15 Days Qty: 45 RF: 1 trazodone 100 mg tablet 100 mg PO BEDTIME 30 Days Qty: 30 RF: 0 metformin 1,000 mg Tablet 1,000 mg PO BIDWM 30 Days Qty: 60 RF: 0 nicotine 21 mg/24 hr patch 24 hour 1 patch topical DAILY PRN (Reason: Nicotine Cravings) Qty: 30 RF: 0 docusate sodium 100 mg capsule 1 cap PO BID PRN (Reason: constipation) Qty: 60 RF: 0 omeprazole 20 mg Capsule,Delayed Release(Dr/Ec) 20 mg PO DAILY 30 Days Qty: 30 RF: 0 insulin lispro [Humalog U-100 Insulin] 100 unit/mL solution 2 - 10 unit subcut TIDAC Qty: 10 RF: 0 albuterol sulfate [ProAir HFA] 90 mcg/actuation HFA aerosol inhaler 2 puff inhalation Q4H PRN (Reason: wheezing) 30 Days Qty: 6.7 RF: 0 Narcan 4 mg/actuation spray,non-aerosol 1 spray intranasal NEEDED PRN (Reason: Opioid Overdose) 1 Days Qty: 2 RF: 0 buprenorphine-naloxone 8-2 mg film 1 film sublingual QPM Qty: 4 RF: 0 buprenorphine-naloxone [Suboxone] 8-2 mg film 2 film sublingual DAILY Qty: 8 RF: 0
[2021-02-14 08:43] LABS: Eosinophils Percent Auto 0.1 % (0-4); MANUAL DIFF FLAG SCAN; PLT CLUMP 1; SCAN SMEAR FLAG 1
[2021-02-14 08:44] LABS: Basophils Percent Auto 0.3 % (0-2); Hematocrit 37.7 % (42.0-52.0); Hemoglobin 13.2 g/dl (14.0-18.0); Imm Gran Abs Auto 0.05 X10*3/uL (0.00-0.03); Imm Gran Pct Auto 0.5 % (0.0-0.4); Mean Corpuscular Volume 86.1 fL (80.0-98.0); Monocytes Absolute Auto 0.7 X10*3/uL (0.1-1.2); Monocytes Percent Auto 6.7 % (2-11); Neutrophils Absolute Auto 8.9 x10*3/uL (2.0-8.3); Neutrophils Percent Auto 83.4 % (45-73); Red Blood Count 4.38 X10*6/uL (4.60-5.80); White Blood Count 10.7 X10*3/uL (4.8-10.8)
[2021-02-14 08:45] LABS: Appearance Urine HAZY; Color Urine YELLOW; Glucose Urine UA NEG (NEG); Leukocyte Esterase Urine 1+ (NEG); Nitrite Urine NEG (NEG); Specific Gravity - Urine >= 1.030 (1.005-1.025); UACC Culture Trigger YES; Urine Blood 2+ (NEG); Urine Ketones 15 MG/DL (NEG); Urine Protein TRACE MG/DL (NEG-TRACE)
[2021-02-14 08:46] LABS: Mean Corpuscular Hemoglobin 30.1 pg (27.0-33.0)
[2021-02-14 08:51] LABS: UACC CULT YES; WBC Urine TNTC /HPF (0-4)
[2021-02-14 08:52] LABS: Bacteria Urine 1+ /LPF; Squamous Epithelial Cell Urine TRACE /LPF
[2021-02-14 08:58] LABS: COVID-19 Test Negative (Negative); IDNOW Serial# 9DD0AD1C
[2021-02-14 08:59] LABS: Ethanol < 10 mg/dL
[2021-02-14 09:02] LABS: Alanine Aminotransferase 97 U/L (0-40); Albumin Level 4.2 g/dL (3.5-5.0); Alkaline Phosphatase 60 U/L (39-117); Anion Gap 18 (12-20); Aspartate Amino Transferase 180 U/L (5-37); Bilirubin Total 1.9 mg/dL (0.0-1.0); Blood Urea Nitrogen 14 mg/dL (9-16); Calcium 8.6 mg/dL (8.4-10.2); Carbon Dioxide 24 mmol/L (22-29); Chloride 96 mmol/L (96-108); Estimated Glomerular Filt Rate > 60; Glucose Random 100 mg/dL (60-115); Potassium 3.2 mmol/L (3.3-5.1); Sodium 135 mmol/L (135-145); Total Protein 7.4 g/dL (6.5-8.0)
[2021-02-14 09:02] LABS: Amphetamine Screen Urine Not Detected (Not Detect); Barbiturates, Urine Not Detected (Not Detect); Benzodiazepines Screen Urine Not Detected (Not Detect); Cannabinoid Screen Urine POSITIVE (Not Detect); Cocaine Screen Urine POSITIVE (Not Detect); Fentanyl, urine POSITIVE (Not Detect); Opiate Screen Urine POSITIVE (Not Detect); Phencyclidine Screen Urine Not Detected (Not Detect)
[2021-02-14 09:03] LABS: Mean Platelet Volume 10.1 fL (9.4-12.4); Platelet Count 268 X10*3/uL (160-400)
[2021-02-14 09:04] LABS: SLIDE REVIEW VERIFIED
[2021-02-14 09:05] LABS: Troponin-I High Sensitivity 5.3 ng/L (<3.5-35.0)
[2021-02-14 11:35] LABS: Glucose, Whole Blood 104 mg/dL (60-115)
[2021-02-14] MEDS: Ondansetron ODT 4 MG TAB.RAPDIS TRANSLINGU (17:13)
[2021-02-14 17:38] LABS: Glucose, Whole Blood 103 mg/dL (60-115)
[2021-02-14 17:41] VITALS: BP 147/71; PULSE 60; RESP 18; O2SAT 99
[2021-02-14] MEDS: LORazepam 1 MG TABLET 2 MG PO (20:53)
[2021-02-15 05:43] LABS: Glucose, Whole Blood 89 mg/dL (60-115)
[2021-02-15 05:46] VITALS: BP 124/76; PULSE 77; TEMP 37.6; O2SAT 95
--- NOTE | 2021-02-15 05:59 | PC.NURSE ---
Patient slept through the night, no distress observed/reported, behavior appropriate, medication compliant, Received Ativan 2 mg with + effect, POC at 0540 was 89, patient will be reassessed by BHN this morning, med rec completed/ pending psych consult for med review, VSS, will continue to monitor.
--- NOTE | 2021-02-15 06:58 | PC.NURSE ---
patient appears to remain asleep at present with even unlabored breaths patient appears in no distress
--- NOTE | 2021-02-15 11:12 | PC.NURSE ---
staff have informed me that client voided at least twice in styrofoam cups in his room alleging he cannot walk to bathroom. patient was redirected about this behavior.
[2021-02-15 11:15] LABS: Glucose, Whole Blood 99 mg/dL (60-115)
[2021-02-15 17:16] LABS: Glucose, Whole Blood 103 mg/dL (60-115)
[2021-02-15 19:07] VITALS: BP 146/93; PULSE 66; RESP 16; TEMP 37.3; O2SAT 100
[2021-02-16 06:09] LABS: Glucose, Whole Blood 116 mg/dL (60-115)
--- NOTE | 2021-02-16 06:09 | PC.NURSE ---
Patient slept through the night, no distress observed/reported, patient alert and oriented x4, coherent, expressing need well, behavior appropriate, patient is section 12 inpatient bed search, contracted for the safety, will continue to monitor.
[2021-02-16 06:10] VITALS: BP 128/84; PULSE 88; RESP 16; TEMP 36.6; O2SAT 97
--- NOTE | 2021-02-16 07:39 | PC.NURSE ---
patient appears to remain asleep at present with even unlabored breaths patient appears in no distress
--- NOTE | 2021-02-16 09:06 | MHC.RECOVSUP ---
Recovery Support note: Patient is a 45 year old [place] speaking male who presented to [facility] ED due to SI and substance use. Patient was evaluated by Karyn and is currently awaiting an inpatient psychiatric bed. This typewriter assembly and parts inspector met with patient to discuss Suboxone initiation. Patient reports he was previously taking 20mg a day and that he would like to restart the medication. Patient reports last taking Suboxone on Tuesday. Patient has been in the emergency department for over 48 hours. Patient tested positive for opiates, fentanyl, cocaine and THC. Medical record shows patient has been to the [facility] before for Suboxone. Discussed case with patient's RN and ED provider. Plan for patient to restart Suboxone while awaiting placement.
[2021-02-16] MEDS: Buprenorphine/Naloxone 8/2 mg FILM 1 FILM SUBLINGUAL (10:02)
[2021-02-16 10:17] VITALS: BP 146/86; PULSE 64; RESP 18; TEMP 37.2; O2SAT 97
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
[2021-02-16] MEDS: Gabapentin 400 MG CAPSULE 800 MG PO (14:40)
[2021-02-16 18:29] LABS: Glucose, Whole Blood 93 mg/dL (60-115)
[2021-02-20 13:16] LABS: Gabapentin 3.3 mcg/mL
== END 2021-02-16 20:01 | disposition home or self-care (01) ==
PROVIDERS: Nurse Practitioner Psychiatric/Mental Health; Emergency Provider Emergency Medicine Emergency Medical Services
DX: F33.3 Major depressive disorder, recurrent, severe with psychotic symptoms (principal); R45.851 Suicidal ideations; F11.20 Opioid dependence, uncomplicated; F14.10 Cocaine abuse, uncomplicated; R07.9 Chest pain, unspecified; Z91.14 Patient's other noncompliance with medication regimen; Z79.899 Other long term (current) drug therapy
CPT/HCPCS: 36415; 71045; 80053; 80171; 80307; 81001; 82077; 82947; 84484; 85025; 87086; 87088; 87186; 87635; 93005; 99285

== ENCOUNTER 2021-03-15 11:50 | Emergency (ER) | payer MEDICAID, SELFPAY ==
[2021-03-15 12:01] VITALS: BP 150/80; BP 158/92; PULSE 69; PULSE 84; RESP 18; TEMP 36.9; O2SAT 100; O2SAT 98; BMI 23.6
--- NOTE | 2021-03-15 12:13 | ED.GENADULT ---
HPI - General Adult General Chief complaint: Overdose Stated complaint: NAUSEA/VOMITING PER EMS Time Seen by Provider: 03/15/21 12:13 Source: patient Mode of arrival: EMS Limitations: other ( patient not responding to questions) History of Present Illness HPI narrative: 45-year-old male past medical history significant for major depressive disorder, opiate use disorder, hypertension, diabetes, hepatitis-C, tobacco use disorder presenting to the emergency department via EMS after using an unknown amount of heroin, patient was not given Narcan. According to EMS patient endorsed suicidal ideation without a plan. However he was not homicidal. Patient told the nurse that he is not suicidal or homicidal. I was unable to obtain history from this patient as he is not answering any questions, patient is sleeping, arousable with painful stimuli. Onset (ago): minute(s) (30) Relieving factors: none Exacerbating factors: none Associated symptoms: denies other symptoms Treatments prior to arrival: none Related Data Home Medications Medication Instructions Recorded Confirmed B-complex with vitamin C 1 tab PO DAILY 02/14/21 02/14/21 albuterol sulfate 90 mcg/actuation 2 puff INHALATION Q4-6H PRN 02/14/21 02/14/21 aerosol inhaler (ProAir HFA) amlodipine 5 mg tablet 1 tab PO DAILY 02/14/21 02/14/21 atorvastatin 20 mg tablet 1 tab PO DAILY 02/14/21 02/14/21 bupropion HCl 300 mg 24 hr tablet, 1 tab PO DAILY 02/14/21 02/14/21 extended release cholecalciferol (vitamin D3) 25 1 tab PO DAILY 02/14/21 02/14/21 mcg (1,000 unit) tablet docusate sodium 100 mg capsule 1 cap PO BID PRN 02/14/21 02/14/21 duloxetine 20 mg capsule,delayed 1 cap PO DAILY 02/14/21 02/14/21 release ferrous sulfate 325 mg (65 mg 1 tab PO DAILY 02/14/21 02/14/21 iron) tablet (FeroSul) gabapentin 400 mg capsule 2 cap PO TID 02/14/21 02/14/21 insulin glargine 100 unit/mL 70 unit SUBCUT BEDTIME 02/14/21 02/14/21 subcutaneous solution (Lantus U-100 Insulin) insulin lispro 100 unit/mL 2 - 10 unit SUBCUT TID 02/14/21 02/14/21 subcutaneous solution (Humalog U-100 Insulin) lisinopril 20 mg tablet 1 tab PO DAILY 02/14/21 02/14/21 methocarbamol 500 mg tablet 2 tab PO TID PRN 02/14/21 02/14/21 multivitamin 1 tab PO DAILY 02/14/21 02/14/21 omeprazole 20 mg capsule,delayed 1 cap PO QAM 02/14/21 02/14/21 release polyethylene glycol 3350 17 17 g PO DAILY 02/14/21 02/14/21 gram/dose oral powder quetiapine 200 mg tablet 1 tab PO BEDTIME 02/14/21 02/14/21 risperidone 3 mg tablet 1 tab PO BEDTIME 02/14/21 02/14/21 sertraline 50 mg tablet 1 tab PO DAILY 02/14/21 02/14/21 tamsulosin 0.4 mg capsule 1 cap PO BEDTIME 02/14/21 02/14/21 trazodone 100 mg tablet 1 tab PO BEDTIME 02/14/21 02/14/21 Allergies Allergy/AdvReac Type Severity Reaction Status Date / Time levofloxacin [From Levaquin] Allergy Intermediate rash Verified 11/21/20 20:44 Review of Systems Review of Systems: unable to obtain as patient is only answering to painful stimuli. Yes Other ( unable to obtain patient answering only to painful stimuli) PMF Past Medical History Attestation statement: The following information was validated with the patient. Source: old records reviewed and nursing notes reviewed Medical History Alcohol use Alcohol use Alcohol use disorder, severe, dependence BPH (benign prostatic hyperplasia) (~10/11/20) Chronic pain Diverticulitis DM II (diabetes mellitus, type II), controlled High cholesterol (~10/11/20) HTN (hypertension) Marijuana use MDD (major depressive disorder), recurrent episode, severe Neuropathy Opiate dependence Opioid use disorder Opioid use disorder Stimulant use disorder Tobacco use disorder Urinary hesitancy Social History Social History Household Members: None Housing: Homeless Do you presently have visiting nurse or other home services: No Unable to assess alcohol history related to: Refusing to respond Alcohol intake: current Alcohol intake frequency: 0-2 drinks per day Alcohol type: beer and hard liquor Patient Tobacco Use Status: Current everyday Tobacco user Tobacco use type: Cigarette Cigarette Packs Per Day: 1.5 Cigarettes Per Day: 15 Years Smoked: 38 e-Cigarette/Vaping Use: Never Used Second Hand Smoke Exposure: No Substance Use Type: Crack/Cocaine and Heroin Advance Directives: No Advance Directives Information Provided: Yes service: No Current occupational status: unemployed Sexual orientation: Straight/Heterosexual Physical Exam Vital Signs: Vital Signs: Last Vital Signs Temp 98.3 F 03/15/21 14:00 Pulse 73 03/15/21 14:00 Resp 16 03/15/21 14:00 BP 119/84 03/15/21 14:00 Pulse Ox 100 03/15/21 14:00 BMI result Body Mass Index 23.6 VSS Patient noted to be slightly hypertensive likely secondary to drug use Appearance: patient awake only to painful stimuli No acute distress.? Head: Normocephalic, atraumatic, no step-offs or deformities Eyes: Pupils equal, round and reactive to light.? ENT: Pharynx normal.? Neck: Normal inspection.? Neck supple.? CVS: Normal heart rate and rhythm.? Pulses normal.? Respiratory: No respiratory distress.? Breath sounds normal.? Abdomen: Soft and nontender.? Skin: Skin warm and dry.? Normal skin color.? Normal skin turgor.? Extremities: No lower extremity edema.? No calf ttp. 5/5 strength to bilateral upper and lower extremities Back: No midline tenderness, no C-spine tenderness, full range of motion, no CVA tenderness bilaterally Neuro: patient awake only to painful stimuli. unable to follow commands. Unable to do a full neuro exam. Will re-evaluate after patient receives Narcan. Course Reevaluation(s) Reevaluation #1: 4mg IN narcan given Time: 12:30 Reevaluation #2: re-evaluated patient. No focal neuro deficits. Patient answering questions appropriately. He reports that he is suicidal with a plan to overdose, he tells me he has tried many times but is never succeeded. At this time patient will be placed on a Section 12, basic labs will be ordered, urine tox, ethanol and a BHn consult will be put in. Time: 15:13 Reevaluation #3: No signs of acute infection on lab work, a baseline no acute electrolyte abnormalities. Transaminases noted to be elevated. Ethanol negative. Patient is COVID negative Urine toxicology pending. Patient placed on physician observation for suicidal ideation with plan to overdose This time patient will be placed in physician observation to allow more time to be evaluated by N. at time that physician observation was started patient was, cooperative. Vital signs were stable. Neuro exam is nonfocal. Patient has no complaints. Time: 16:39 Medical Decision Making MDM Narrative Medical decision making narrative: 1215 45 YO M pmhx major depression, opiate use d/o, tobacco use d/o, HTN, DM and hepatitis-C presents to the emergency department via EMS status post using heroin and cocaine. Patient is only responding to painful stimuli, not answering my questions. Upon physical examination patient is only arousable to painful stimuli. Pupils pinpoint. Vital signs stable. Lungs are clear, S1-S2 appreciated with rapid regular rhythm. Unable to do a full neuro exam. will re-evaluate after Narcan is given. Since patient is not answering the questions, and he is dozing off I will administer 4 mg of intranasal Narcan. I will monitor patient closely. In I will obtain an EKG and SMITH. Medical Records Medical records reviewed: Yes I reviewed the patient's medical records. Lab Data Lab results reviewed: Yes I reviewed the patient's lab results. Result diagrams: 03/15/21 16:00 03/15/21 16:00 Labs: Lab Results 03/15/21 03/15/21 03/15/21 Range/Units 16:00 16:00 16:00 WBC 7.3 (4.8-10.8) X10*3/uL RBC 4.58 L (4.60-5.80) X10*6/uL Hgb 13.9 L (14.0-18.0) g/dl Hct 41.1 L (42.0-52.0) % MCV 89.7 (80.0-98.0) fL MCH 30.3 (27.0-33.0) pg MCHC 33.8 (31.0-36.0) g/dl RDW 13.2 (11.0-16.0) % Plt Count 335 (160-400) X10*3/uL MPV 10.1 (9.4-12.4) fL Immature Gran % (Auto) 0.3 (0.0-0.4) % Neut % (Auto) 80.8 H (45-73) % Lymph % (Auto) 14.4 L (20-40) % [place] % (Auto) 4.2 (2-11) % Eos % (Auto) 0.0 (0-4) % Baso % (Auto) 0.3 (0-2) % Lymph # (Auto) 1.1 L (1.2-4.9) X10*3/uL [place] # (Auto) 0.3 (0.1-1.2) X10*3/uL Eos # (Auto) 0.0 (0.0-0.4) X10*3/uL Baso # (Auto) 0.0 (0.0-0.2) X10*3/uL Abs Immat Gran (auto) 0.02 (0.00-0.03) X10*3/uL Absolute Neuts (auto) 5.9 (2.0-8.3) x10*3/uL Absolute Nucleated RBC 0.000 (0.0-0.012) X10*3/uL Nucleated RBC % (auto) 0.0 (0.0-0.2) /100WBC Sodium 138 (135-145) mmol/L Potassium 4.2 D (3.3-5.1) mmol/L Chloride 103 (96-108) mmol/L Carbon Dioxide 22 (22-29) mmol/L Anion Gap 17 (12-20) BUN 14 (9-16) mg/dL Creatinine 0.79 (0.5-1.4) mg/dL Estim Creat Clear Calc 132.3 Estimated GFR > 60 Random Glucose 90 (60-115) mg/dL Calcium 9.3 D (8.4-10.2) mg/dL Total Bilirubin 0.9 (0.0-1.0) mg/dL AST 83 H (5-37) U/L ALT 55 H (0-40) U/L Alkaline Phosphatase 56 (39-117) U/L Total Protein 7.7 (6.5-8.0) g/dL Albumin 4.0 (3.5-5.0) g/dL Ethyl Alcohol < 10 mg/dL COVID-19 ([facility]IO) (Negative) COVID-19 Clin Com 03/15/21 Range/Units 16:01 WBC (4.8-10.8) X10*3/uL RBC (4.60-5.80) X10*6/uL Hgb (14.0-18.0) g/dl Hct (42.0-52.0) % MCV (80.0-98.0) fL MCH (27.0-33.0) pg MCHC (31.0-36.0) g/dl RDW (11.0-16.0) % Plt Count (160-400) X10*3/uL MPV (9.4-12.4) fL Immature Gran % (Auto) (0.0-0.4) % Neut % (Auto) (45-73) % Lymph % (Auto) (20-40) % [place] % (Auto) (2-11) % Eos % (Auto) (0-4) % Baso % (Auto) (0-2) % Lymph # (Auto) (1.2-4.9) X10*3/uL [place] # (Auto) (0.1-1.2) X10*3/uL Eos # (Auto) (0.0-0.4) X10*3/uL Baso # (Auto) (0.0-0.2) X10*3/uL Abs Immat Gran (auto) (0.00-0.03) X10*3/uL Absolute Neuts (auto) (2.0-8.3) x10*3/uL Absolute Nucleated RBC (0.0-0.012) X10*3/uL Nucleated RBC % (auto) (0.0-0.2) /100WBC Sodium (135-145) mmol/L Potassium (3.3-5.1) mmol/L Chloride (96-108) mmol/L Carbon Dioxide (22-29) mmol/L Anion Gap (12-20) BUN (9-16) mg/dL Creatinine (0.5-1.4) mg/dL Estim Creat Clear Calc Estimated GFR Random Glucose (60-115) mg/dL Calcium (8.4-10.2) mg/dL Total Bilirubin (0.0-1.0) mg/dL AST (5-37) U/L ALT (0-40) U/L Alkaline Phosphatase (39-117) U/L Total Protein (6.5-8.0) g/dL Albumin (3.5-5.0) g/dL Ethyl Alcohol mg/dL COVID-19 ([facility]) Negative (Negative) COVID-19 Clin Com See Note Critical Care Time Critical Care Time Critical Care Time: No Discharge Plan Discharge Clinical Impression: Drug overdose Patient Disposition: Still a Patient Instructions: Adult Overdose (ED) Additional Instructions: Take your medications as prescribed. If you were prescribed antibiotics today, it is important that you take your medication to their entirety, do not skip any doses, do not finish them early. Follow-up with your primary care provider this week. Return to the emergency department with new or worsening symptoms. In case of emergency call 911 Prescriptions: No Action atorvastatin 20 mg tablet 1 tab PO DAILY RF: 0 lisinopril 20 mg tablet 1 tab PO DAILY RF: 0 gabapentin 400 mg capsule 2 cap PO TID RF: 0 amlodipine 5 mg tablet 1 tab PO DAILY RF: 0 risperidone 3 mg tablet 1 tab PO BEDTIME RF: 0 trazodone 100 mg tablet 1 tab PO BEDTIME RF: 0 ferrous sulfate [FeroSul] 325 mg (65 mg iron) tablet 1 tab PO DAILY RF: 0 docusate sodium 100 mg capsule 1 cap PO BID PRN (Reason: constipation) RF: 0 polyethylene glycol 3350 17 gram/dose powder 17 g PO DAILY RF: 0 B-complex with vitamin C Tablet 1 tab PO DAILY RF: 0 bupropion HCl 300 mg tablet extended release 24 hr 1 tab PO DAILY RF: 0 duloxetine 20 mg capsule,delayed release(DR/EC) 1 cap PO DAILY RF: 0 cholecalciferol (vitamin D3) 25 mcg (1,000 unit) tablet 1 tab PO DAILY RF: 0 quetiapine 200 mg tablet 1 tab PO BEDTIME RF: 0 omeprazole 20 mg capsule,delayed release(DR/EC) 1 cap PO QAM RF: 0 albuterol sulfate [ProAir HFA] 90 mcg/actuation HFA aerosol inhaler 2 puff inhalation Q4-6H PRN (Reason: dyspnea) RF: 0 multivitamin Tablet 1 tab PO DAILY RF: 0 methocarbamol 500 mg tablet 2 tab PO TID PRN (Reason: muscle spasm) RF: 0 Lantus U-100 Insulin 100 unit/mL solution 70 unit subcut BEDTIME RF: 0 tamsulosin 0.4 mg capsule 1 cap PO BEDTIME RF: 0 sertraline 50 mg tablet 1 tab PO DAILY RF: 0 insulin lispro [Humalog U-100 Insulin] 100 unit/mL solution 2 - 10 unit subcut TID RF: 0 Referrals: Physician,Unknown J [Primary Care Provider] - 2 days
--- NOTE | 2021-03-15 12:19 | ECG_ITS ---
Test Reason : OVERDOSED Blood Pressure : / mmHG Vent. Rate : 073 BPM Atrial Rate : 073 BPM P-R Int : 166 ms QRS Dur : 144 ms QT Int : 454 ms P-R-T Axes : 043 029 054 degrees QTc Int : 500 ms Normal sinus rhythm Right bundle branch block Abnormal ECG When compared with ECG of 14-FEB-2021 20:55, No significant change was found Referred By: Kaycee Burns Electronically Signed By:Rodriguez Bourne
[2021-03-15] MEDS: Ondansetron ODT 4 MG TAB.RAPDIS TRANSLINGU (12:35)
[2021-03-15] MEDS: Naloxone HCl Nasal 4 MG SPRAY NOSTRILALT (12:35)
--- NOTE | 2021-03-15 12:35 | PC.NURSE ---
patient states he used 1.5 bundles of heroin, provider administered narcan after sternal rubbing him to evaluate the patient. patients o2 sat and hr wnl
[2021-03-15 12:36] VITALS: PULSE 82; RESP 24; O2SAT 98
[2021-03-15 14:00] VITALS: BP 119/84; PULSE 73; RESP 16; TEMP 36.8; O2SAT 100
--- NOTE | 2021-03-15 14:51 | PC.NURSE ---
patient is sleeping, woke to verbal stimulus, vss, will continue to monitor.
[2021-03-15 16:00] VITALS: BP 120/72; PULSE 82; RESP 16; TEMP 36.3; O2SAT 99
[2021-03-15 16:10] LABS: MANUAL DIFF FLAG NO
[2021-03-15 16:11] LABS: Basophils Percent Auto 0.3 % (0-2); Hematocrit 41.1 % (42.0-52.0); Hemoglobin 13.9 g/dl (14.0-18.0); Imm Gran Abs Auto 0.02 X10*3/uL (0.00-0.03); Imm Gran Pct Auto 0.3 % (0.0-0.4); Lymphocytes Absolute Auto 1.1 X10*3/uL (1.2-4.9); Lymphocytes Percent Auto 14.4 % (20-40); Mean Corpuscular HGB Conc 33.8 g/dl (31.0-36.0); Mean Corpuscular Hemoglobin 30.3 pg (27.0-33.0); Mean Corpuscular Volume 89.7 fL (80.0-98.0); Mean Platelet Volume 10.1 fL (9.4-12.4); Monocytes Absolute Auto 0.3 X10*3/uL (0.1-1.2); Monocytes Percent Auto 4.2 % (2-11); Neutrophils Absolute Auto 5.9 x10*3/uL (2.0-8.3); Neutrophils Percent Auto 80.8 % (45-73); Platelet Count 335 X10*3/uL (160-400); Red Blood Count 4.58 X10*6/uL (4.60-5.80); Red Cell Distribution Width 13.2 % (11.0-16.0); White Blood Count 7.3 X10*3/uL (4.8-10.8)
[2021-03-15 16:21] LABS: Ethanol < 10 mg/dL
[2021-03-15 16:24] LABS: COVID-19 Test Negative (Negative)
[2021-03-15 16:25] LABS: Alanine Aminotransferase 55 U/L (0-40); Alkaline Phosphatase 56 U/L (39-117); Anion Gap 17 (12-20); Aspartate Amino Transferase 83 U/L (5-37); Bilirubin Total 0.9 mg/dL (0.0-1.0); Blood Urea Nitrogen 14 mg/dL (9-16); Calcium 9.3 mg/dL (8.4-10.2); Carbon Dioxide 22 mmol/L (22-29); Chloride 103 mmol/L (96-108); Creatinine Clr Calc Pharmacy 132.3; Estimated Glomerular Filt Rate > 60; Glucose Random 90 mg/dL (60-115); Potassium 4.2 mmol/L (3.3-5.1); Sodium 138 mmol/L (135-145); Total Protein 7.7 g/dL (6.5-8.0)
[2021-03-15 17:30] LABS: Amphetamine Screen Urine Not Detected (Not Detect); Barbiturates, Urine POSITIVE (Not Detect); Benzodiazepines Screen Urine Not Detected (Not Detect); Cannabinoid Screen Urine POSITIVE (Not Detect); Cocaine Screen Urine POSITIVE (Not Detect); Fentanyl, urine POSITIVE (Not Detect); Opiate Screen Urine POSITIVE (Not Detect); Phencyclidine Screen Urine Not Detected (Not Detect)
[2021-03-15 18:00] VITALS: BP 126/74; PULSE 72; RESP 20; TEMP 36.7; O2SAT 97
--- NOTE | 2021-03-15 19:24 | MHC.RECOVSUP ---
? Reason for consult Recovery Support o Current location: 18[address] o Identified substance use concern: Heroin - Overdose - Seeking ATS (detox) - Support ? Intervention: o Community resources provided o Harm reduction discussion ? Plan: o Patient awaiting crisis evaluation o Patient to follow up with [facility] after discharge ? Additional information: Patient came to the ED seeking Help to go to detox... Patient is waiting for Crisis Evaluation...
--- NOTE | 2021-03-15 19:41 | PC.NURSE ---
bhn here to speak with the patient
--- NOTE | 2021-03-15 20:16 | PC.NURSE ---
pt ride to labor room per bhn, pt with security to get clothing
== END 2021-03-15 20:18 | disposition home or self-care (01) ==
PROVIDERS: Physician Assistant; Emergency Provider Emergency Medicine
DX: T40.1X2A Poisoning by heroin, intentional self-harm, initial encounter (principal); F11.20 Opioid dependence, uncomplicated; Y92.9 Unspecified place or not applicable; F14.90 Cocaine use, unspecified, uncomplicated; E11.9 Type 2 diabetes mellitus without complications; I10 Essential (primary) hypertension; I45.10 Unspecified right bundle-branch block; Z20.822 Contact with and (suspected) exposure to COVID-19
CPT/HCPCS: 36415; 80053; 80307; 82077; 85025; 87635; 93005; 99284

== ENCOUNTER 2021-04-19 03:42 | Emergency (ER) | payer MEDICAID, SELFPAY ==
[2021-04-19 03:55] VITALS: BP 144/87; BP 154/94; PULSE 85; PULSE 90; RESP 21; TEMP 36.7; O2SAT 100; O2SAT 92; BMI 24.4
--- NOTE | 2021-04-19 04:03 | PC.NURSE ---
per charge nurse pt is waiting room. sandwich, drink and pair of socks given with a warm blanket. pt requesting to use the rest room. pt in rest room, this policy writer typist checked on patient to make sure he was okay. pt stated is using the rest room and would be out shortly. Will continue to monitor.
--- NOTE | 2021-04-19 04:06 | PC.NURSE ---
pt awaiting room assignment.
--- NOTE | 2021-04-19 04:12 | PC.NURSE ---
pt on the phone.
--- NOTE | 2021-04-19 07:31 | ED_ITS ---
HPI - Psych General Chief Complaint: Psychiatric Symptoms Stated Complaint: not feeling well? Time Seen by Provider: 04/19/21 07:31 Source: patient Mode of arrival: EMS History of Present Illness HPI Narrative: Patient homeless with history of IVDA cocaine heroin use with history of depression off medication for last 2 weeks last use of cocaine was 4 hours ago and heroin was 2 days ago comes here for feeling increased depression suicidal feeling with no plan asking for Suboxone and Ativan does not want to go to detox patient lost his belongings 2 weeks ago that making him more depressed no hallucination or delusions Related Data Home Medications Medication Instructions Recorded Confirmed B-complex with vitamin C 1 tab PO DAILY 02/14/21 02/14/21 albuterol sulfate 90 mcg/actuation 2 puff INHALATION Q4-6H PRN 02/14/21 02/14/21 aerosol inhaler (ProAir HFA) amlodipine 5 mg tablet 1 tab PO DAILY 02/14/21 02/14/21 atorvastatin 20 mg tablet 1 tab PO DAILY 02/14/21 02/14/21 bupropion HCl 300 mg 24 hr tablet, 1 tab PO DAILY 02/14/21 02/14/21 extended release cholecalciferol (vitamin D3) 25 1 tab PO DAILY 02/14/21 02/14/21 mcg (1,000 unit) tablet docusate sodium 100 mg capsule 1 cap PO BID PRN 02/14/21 02/14/21 duloxetine 20 mg capsule,delayed 1 cap PO DAILY 02/14/21 02/14/21 release ferrous sulfate 325 mg (65 mg 1 tab PO DAILY 02/14/21 02/14/21 iron) tablet (FeroSul) gabapentin 400 mg capsule 2 cap PO TID 02/14/21 02/14/21 insulin glargine 100 unit/mL 70 unit SUBCUT BEDTIME 02/14/21 02/14/21 subcutaneous solution (Lantus U-100 Insulin) insulin lispro 100 unit/mL 2 - 10 unit SUBCUT TID 02/14/21 02/14/21 subcutaneous solution (Humalog U-100 Insulin) lisinopril 20 mg tablet 1 tab PO DAILY 02/14/21 02/14/21 methocarbamol 500 mg tablet 2 tab PO TID PRN 02/14/21 02/14/21 multivitamin 1 tab PO DAILY 02/14/21 02/14/21 omeprazole 20 mg capsule,delayed 1 cap PO QAM 02/14/21 02/14/21 release polyethylene glycol 3350 17 17 g PO DAILY 02/14/21 02/14/21 gram/dose oral powder quetiapine 200 mg tablet 1 tab PO BEDTIME 02/14/21 02/14/21 risperidone 3 mg tablet 1 tab PO BEDTIME 02/14/21 02/14/21 sertraline 50 mg tablet 1 tab PO DAILY 02/14/21 02/14/21 tamsulosin 0.4 mg capsule 1 cap PO BEDTIME 02/14/21 02/14/21 trazodone 100 mg tablet 1 tab PO BEDTIME 02/14/21 02/14/21 Allergies Allergy/AdvReac Type Severity Reaction Status Date / Time levofloxacin [From Levaquin] Allergy Intermediate rash Verified 11/21/20 20:44 Review of Systems Review of Systems: Yes all other systems are reviewed and are negative PMFSH Past Medical History Medical History Alcohol use Alcohol use Alcohol use disorder, severe, dependence BPH (benign prostatic hyperplasia) (~10/11/20) Chronic pain Diverticulitis DM II (diabetes mellitus, type II), controlled High cholesterol (~10/11/20) HTN (hypertension) Marijuana use MDD (major depressive disorder), recurrent episode, severe Neuropathy Opiate dependence Opioid use disorder Opioid use disorder Stimulant use disorder Tobacco use disorder Urinary hesitancy Social History Social History Household Members: None Housing: Homeless Do you presently have visiting nurse or other home services: No Unable to assess alcohol history related to: Refusing to respond Alcohol intake: current Alcohol intake frequency: 0-2 drinks per day Alcohol type: beer and hard liquor Patient Tobacco Use Status: Current everyday Tobacco user Tobacco use type: Cigarette Cigarette Packs Per Day: 1.5 Cigarettes Per Day: 15 Years Smoked: 38 e-Cigarette/Vaping Use: Never Used Second Hand Smoke Exposure: No Substance Use Type: Crack/Cocaine and Heroin Advance Directives: No Advance Directives Information Provided: Yes service: No Current occupational status: unemployed Sexual orientation: Straight/Heterosexual Physical Exam Vital Signs: Vital Signs: Last Vital Signs Temp 98.6 F 04/19/21 10:25 Pulse 62 04/19/21 10:25 Resp 14 04/19/21 10:25 BP 162/90 H 04/19/21 10:25 Pulse Ox 99 04/19/21 10:25 BMI result Body Mass Index 24.4 Appearance: Alert. Oriented X3. No acute distress. Eyes: PERRLA, No pallor or icterus ENT: Pharynx normal. Oral Mucosa moist Neck: Normal inspection. Neck supple. CVS: Normal heart rate and rhythm. Pulses normal. Respiratory: No respiratory distress. Equal air entry bilateral, no wheezing/rales/rhonchi Abdomen: Soft and nontender. Bowel sounds are present, no mass palpable, Skin: Skin warm and dry. Normal skin color. Normal skin turgor. Extremities: No lower extremity edema. No calf tenderness IVDA ontiveros Psch: Depressed mood, judgment fair no hallucination or delusion no current suicidal plan Neuro: Oriented X 3. No motor deficit. MDM - Psych MDM Narrative Medical decision making narrative: Patient with substance abuse depression feels suicidal will consult crisis for evaluation Lab Data Attestation: I reviewed the patient's lab results. Result diagrams: 04/19/21 08:23 04/19/21 08:23 Labs: Lab Results 04/19/21 04/19/21 04/19/21 Range/Units 07:50 08:10 08:10 WBC (4.8-10.8) X10*3/uL RBC (4.60-5.80) X10*6/uL Hgb (14.0-18.0) g/dl Hct (42.0-52.0) % MCV (80.0-98.0) fL MCH (27.0-33.0) pg MCHC (31.0-36.0) g/dl RDW (11.0-16.0) % Plt Count (160-400) X10*3/uL MPV (9.4-12.4) fL Immature Gran % (Auto) (0.0-0.4) % Neut % (Auto) (45-73) % Lymph % (Auto) (20-40) % [place] % (Auto) (2-11) % Eos % (Auto) (0-4) % Baso % (Auto) (0-2) % Lymph # (Auto) (1.2-4.9) X10*3/uL [place] # (Auto) (0.1-1.2) X10*3/uL Eos # (Auto) (0.0-0.4) X10*3/uL Baso # (Auto) (0.0-0.2) X10*3/uL Abs Immat Gran (auto) (0.00-0.03) X10*3/uL Absolute Neuts (auto) (2.0-8.3) x10*3/uL Absolute Nucleated RBC (0.0-0.012) X10*3/uL Nucleated RBC % (auto) (0.0-0.2) /100WBC Sodium (135-145) mmol/L Potassium (3.3-5.1) mmol/L Chloride (96-108) mmol/L Carbon Dioxide (22-29) mmol/L Anion Gap (12-20) BUN (9-16) mg/dL Creatinine (0.5-1.4) mg/dL Estim Creat Clear Calc Estimated GFR POC Glucose 139 H (60-115) mg/dL Random Glucose (60-115) mg/dL Calcium (8.4-10.2) mg/dL Magnesium (1.6-2.6) mg/dL Total Bilirubin (0.0-1.0) mg/dL AST (5-37) U/L ALT (0-40) U/L Alkaline Phosphatase (39-117) U/L Total Protein (6.5-8.0) g/dL Albumin (3.5-5.0) g/dL Urine Opiates Screen Not Detected (Not Detect) Urine Fentanyl Screen POSITIVE H (Not Detect) Ur Barbiturates Screen Not Detected (Not Detect) Ur Phencyclidine Scrn Not Detected (Not Detect) Ur Amphetamines Screen Not Detected (Not Detect) U Benzodiazepines Scrn Not Detected (Not Detect) Urine Cocaine Screen POSITIVE H (Not Detect) U Marijuana (THC) Screen POSITIVE H (Not Detect) COVID-19 (DELIO) Negative (Negative) COVID-19 Clin Com See Note 04/19/21 04/19/21 Range/Units 08:23 08:23 WBC 9.2 (4.8-10.8) X10*3/uL RBC 4.57 L (4.60-5.80) X10*6/uL Hgb 13.7 L (14.0-18.0) g/dl Hct 41.4 L (42.0-52.0) % MCV 90.6 (80.0-98.0) fL MCH 30.0 (27.0-33.0) pg MCHC 33.1 (31.0-36.0) g/dl RDW 12.9 (11.0-16.0) % Plt Count 353 (160-400) X10*3/uL MPV 9.7 (9.4-12.4) fL Immature Gran % (Auto) 0.4 (0.0-0.4) % Neut % (Auto) 71.8 (45-73) % Lymph % (Auto) 19.7 L (20-40) % [place] % (Auto) 7.2 (2-11) % Eos % (Auto) 0.5 (0-4) % Baso % (Auto) 0.4 (0-2) % Lymph # (Auto) 1.8 (1.2-4.9) X10*3/uL [place] # (Auto) 0.7 (0.1-1.2) X10*3/uL Eos # (Auto) 0.1 (0.0-0.4) X10*3/uL Baso # (Auto) 0.0 (0.0-0.2) X10*3/uL Abs Immat Gran (auto) 0.04 H (0.00-0.03) X10*3/uL Absolute Neuts (auto) 6.6 (2.0-8.3) x10*3/uL Absolute Nucleated RBC 0.000 (0.0-0.012) X10*3/uL Nucleated RBC % (auto) 0.0 (0.0-0.2) /100WBC Sodium 140 (135-145) mmol/L Potassium 3.7 (3.3-5.1) mmol/L Chloride 104 (96-108) mmol/L Carbon Dioxide 29 (22-29) mmol/L Anion Gap 11 L (12-20) BUN 12 (9-16) mg/dL Creatinine 0.82 (0.5-1.4) mg/dL Estim Creat Clear Calc 126.1 Estimated GFR > 60 POC Glucose (60-115) mg/dL Random Glucose 140 H D (60-115) mg/dL Calcium 9.4 (8.4-10.2) mg/dL Magnesium 2.0 (1.6-2.6) mg/dL Total Bilirubin 0.5 (0.0-1.0) mg/dL AST 29 D (5-37) U/L ALT 25 (0-40) U/L Alkaline Phosphatase 48 (39-117) U/L Total Protein 7.6 (6.5-8.0) g/dL Albumin 3.8 (3.5-5.0) g/dL Urine Opiates Screen (Not Detect) Urine Fentanyl Screen (Not Detect) Ur Barbiturates Screen (Not Detect) Ur Phencyclidine Scrn (Not Detect) Ur Amphetamines Screen (Not Detect) U Benzodiazepines Scrn (Not Detect) Urine Cocaine Screen (Not Detect) U Marijuana (THC) Screen (Not Detect) COVID-19 (DELIO) (Negative) COVID-19 Clin Com Discharge Plan Discharge Clinical Impression: Polysubstance abuse, Feeling suicidal Depression Qualifiers: Depression Type: major depressive disorder Major depression recurrence: re current Active/Remission status: currently active Major depression episode severity: severe Psychotic features: without psychotic features Qualified Code(s): F33.2 - Major depressive disorder, recurrent severe without psychotic features Prescriptions: No Action atorvastatin 20 mg tablet 1 tab PO DAILY RF: 0 lisinopril 20 mg tablet 1 tab PO DAILY RF: 0 gabapentin 400 mg capsule 2 cap PO TID RF: 0 amlodipine 5 mg tablet 1 tab PO DAILY RF: 0 risperidone 3 mg tablet 1 tab PO BEDTIME RF: 0 trazodone 100 mg tablet 1 tab PO BEDTIME RF: 0 ferrous sulfate [FeroSul] 325 mg (65 mg iron) tablet 1 tab PO DAILY RF: 0 docusate sodium 100 mg capsule 1 cap PO BID PRN (Reason: constipation) RF: 0 polyethylene glycol 3350 17 gram/dose powder 17 g PO DAILY RF: 0 B-complex with vitamin C Tablet 1 tab PO DAILY RF: 0 bupropion HCl 300 mg tablet extended release 24 hr 1 tab PO DAILY RF: 0 duloxetine 20 mg capsule,delayed release(DR/EC) 1 cap PO DAILY RF: 0 cholecalciferol (vitamin D3) 25 mcg (1,000 unit) tablet 1 tab PO DAILY RF: 0 quetiapine 200 mg tablet 1 tab PO BEDTIME RF: 0 omeprazole 20 mg capsule,delayed release(DR/EC) 1 cap PO QAM RF: 0 albuterol sulfate [ProAir HFA] 90 mcg/actuation HFA aerosol inhaler 2 puff inhalation Q4-6H PRN (Reason: dyspnea) RF: 0 multivitamin Tablet 1 tab PO DAILY RF: 0 methocarbamol 500 mg tablet 2 tab PO TID PRN (Reason: muscle spasm) RF: 0 Lantus U-100 Insulin 100 unit/mL solution 70 unit subcut BEDTIME RF: 0 tamsulosin 0.4 mg capsule 1 cap PO BEDTIME RF: 0 sertraline 50 mg tablet 1 tab PO DAILY RF: 0 insulin lispro [Humalog U-100 Insulin] 100 unit/mL solution 2 - 10 unit subcut TID RF: 0
[2021-04-19 07:54] LABS: Glucose, Whole Blood 139 mg/dL (60-115)
[2021-04-19 08:05] VITALS: BP 162/84; PULSE 55; RESP 17; TEMP 37.2; O2SAT 99
[2021-04-19 08:28] LABS: MANUAL DIFF FLAG NO
[2021-04-19 08:29] LABS: Amphetamine Screen Urine Not Detected (Not Detect); Barbiturates, Urine Not Detected (Not Detect); Benzodiazepines Screen Urine Not Detected (Not Detect); Cannabinoid Screen Urine POSITIVE (Not Detect); Cocaine Screen Urine POSITIVE (Not Detect); Fentanyl, urine POSITIVE (Not Detect); Opiate Screen Urine Not Detected (Not Detect); Phencyclidine Screen Urine Not Detected (Not Detect)
[2021-04-19 08:29] LABS: Basophils Percent Auto 0.4 % (0-2); Eosinophils Absolute Auto 0.1 X10*3/uL (0.0-0.4); Eosinophils Percent Auto 0.5 % (0-4); Hematocrit 41.4 % (42.0-52.0); Hemoglobin 13.7 g/dl (14.0-18.0); Imm Gran Abs Auto 0.04 X10*3/uL (0.00-0.03); Imm Gran Pct Auto 0.4 % (0.0-0.4); Lymphocytes Absolute Auto 1.8 X10*3/uL (1.2-4.9); Lymphocytes Percent Auto 19.7 % (20-40); Mean Corpuscular HGB Conc 33.1 g/dl (31.0-36.0); Mean Corpuscular Volume 90.6 fL (80.0-98.0); Mean Platelet Volume 9.7 fL (9.4-12.4); Monocytes Absolute Auto 0.7 X10*3/uL (0.1-1.2); Monocytes Percent Auto 7.2 % (2-11); Neutrophils Absolute Auto 6.6 x10*3/uL (2.0-8.3); Neutrophils Percent Auto 71.8 % (45-73); Platelet Count 353 X10*3/uL (160-400); Red Blood Count 4.57 X10*6/uL (4.60-5.80); Red Cell Distribution Width 12.9 % (11.0-16.0); White Blood Count 9.2 X10*3/uL (4.8-10.8)
[2021-04-19 08:31] LABS: COVID-19 Test Negative (Negative); IDNOW Serial# 9DD0AD1C
[2021-04-19 08:50] LABS: Alanine Aminotransferase 25 U/L (0-40); Albumin Level 3.8 g/dL (3.5-5.0); Alkaline Phosphatase 48 U/L (39-117); Anion Gap 11 (12-20); Aspartate Amino Transferase 29 U/L (5-37); Bilirubin Total 0.5 mg/dL (0.0-1.0); Blood Urea Nitrogen 12 mg/dL (9-16); Calcium 9.4 mg/dL (8.4-10.2); Carbon Dioxide 29 mmol/L (22-29); Chloride 104 mmol/L (96-108); Creatinine Clr Calc Pharmacy 126.1; Estimated Glomerular Filt Rate > 60; Glucose Random 140 mg/dL (60-115); Potassium 3.7 mmol/L (3.3-5.1); Sodium 140 mmol/L (135-145); Total Protein 7.6 g/dL (6.5-8.0)
[2021-04-19] MEDS: LORazepam 1 MG TABLET 2 MG PO ×2 (08:53→13:19)
[2021-04-19] MEDS: Nicotine 21 MG PATCH.TD24 TRANSDERMA (08:53)
[2021-04-19 10:25] VITALS: BP 162/90; PULSE 62; RESP 14; TEMP 37; O2SAT 99
--- NOTE | 2021-04-19 11:47 | MHC.CARE ---
Smart Sheet put in for [facility] Crisis.
[2021-04-19] MEDS: Ondansetron ODT 4 MG TAB.RAPDIS TRANSLINGU (13:18)
[2021-04-19] MEDS: Buprenorphine/Naloxone 8/2 mg FILM 1 FILM SUBLINGUAL (13:28)
[2021-04-19] MEDS: Gabapentin 600 MG TABLET 800 MG PO (18:01)
== END 2021-04-19 18:33 | disposition home or self-care (01) ==
PROVIDERS: Emergency Provider Internal Medicine
DX: F33.1 Major depressive disorder, recurrent, moderate (principal); R45.851 Suicidal ideations; F14.10 Cocaine abuse, uncomplicated; F17.210 Nicotine dependence, cigarettes, uncomplicated; Z71.6 Tobacco abuse counseling; Z20.822 Contact with and (suspected) exposure to COVID-19; Z79.899 Other long term (current) drug therapy; Z59.00 Homelessness unspecified
CPT/HCPCS: 80053; 80307; 82947; 83735; 85025; 87635; 99284

== ENCOUNTER 2021-12-16 11:08 | Inpatient (IN) | payer OTHER, MEDICAID, SELFPAY ==
--- NOTE | 2021-12-16 11:32 | ED.PSYCH ---
HPI - Psych General Chief Complaint: Psychiatric Symptoms Stated Complaint: BHN,SECT 12,SEEN IN COMMUNITY,BED SEARCH IN PRO Time Seen by Provider: 12/16/21 11:14 Source: patient and EMS Mode of arrival: EMS Limitations: other (Psych, unwilling to talk much) History of Present Illness HPI Narrative: Patient comes to the emergency room via EMS. Patient walked to the [facility] office in [place], seems that patient informed them that he has been out of his medications for 2 weeks, feeling depressed, suicidal, planning to stab himself. Unable to get significant history from the patient, answering questions in 2-3 word sentences Related Data Home Medications Medication Instructions Recorded Confirmed amlodipine 5 mg tablet 10 mg PO DAILY 02/14/21 12/16/21 quetiapine 200 mg tablet 50 mg PO BEDTIME 02/14/21 12/16/21 trazodone 100 mg tablet 150 mg PO BEDTIME 02/14/21 12/16/21 aripiprazole 5 mg tablet 1 tab PO DAILY 12/16/21 12/16/21 buprenorphine 8 mg-naloxone 2 mg 1 tab sublingual TID 12/16/21 12/16/21 sublingual tablet bupropion HCl 150 mg 24 hr tablet, 1 tab PO QAM 12/16/21 12/16/21 extended release bupropion HCl 300 mg 24 hr tablet, 1 tab PO QAM 12/16/21 12/16/21 extended release gabapentin 600 mg tablet 1 tab PO TID 12/16/21 12/16/21 metformin 500 mg tablet 1 tab PO BID 12/16/21 12/16/21 pantoprazole 40 mg tablet,delayed 1 tab PO QAM 12/16/21 12/16/21 release Allergies Allergy/AdvReac Type Severity Reaction Status Date / Time levofloxacin [From Levaquin] Allergy Intermediate rash Verified 11/21/20 20:44 Review of Systems Review of Systems: Constitutional : No Weight loss, No Fever, No Chills, No Night Sweats, No Fatigue, No Malaise ENT/Mouth : No Hearing loss, No Ear Pain, No Nasal Congestion, No Sinus Pain, No Hoarseness, No sore throat, No Rhinorrhea, No Swallowing Difficulty Eyes: No Eye Pain, No Swelling, No Redness, No Foreign Body, No Discharge, No Vision Changes Cardiovascular : No Chest Pain, No SOB, No Dyspnea on Exertion, No Orthopnea, No Edema, No Palpitations Respiratory : No Cough, No Sputum, No Wheezing, No Smoke Exposure, No Dyspnea Gastrointestinal : No Nausea, No Vomiting, No Diarrhea, No Constipation, No abdominal Pain, No Hematochezia, No Melena Genitourinary : no irregular bleeding, No Dysuria, No Urinary Frequency, No Hematuria, No Urinary Incontinence, No Urgency, No Flank Pain, No Urinary Flow Changes, No Hesitancy Musculoskeletal : No joint pain, No Myalgias, No Joint Swelling Skin : No Skin Lesions, No rash Neuro : No Weakness, No Numbness, No Paresthesias, No Loss of Consciousness, No Dizziness, No Headache Psych : Feeling depressed, no anxiety, complaining of suicidal ideation, no homicidal ideation Heme/Lymph: No Bruising, No Bleeding,No Lymphadenopathy Endocrine : No Polyuria, No Polydipsia, No Temperature Intolerance PMFSH Past Medical History Medical History Alcohol use Alcohol use Alcohol use disorder, severe, dependence BPH (benign prostatic hyperplasia) (~10/11/20) Chronic pain Diverticulitis DM II (diabetes mellitus, type II), controlled High cholesterol (~10/11/20) HTN (hypertension) Marijuana use MDD (major depressive disorder), recurrent episode, severe Neuropathy Opiate dependence Opioid use disorder Opioid use disorder Stimulant use disorder Tobacco use disorder Urinary hesitancy Social History Social History Household Members: None Housing: Homeless Do you presently have visiting nurse or other home services: No Unable to assess alcohol history related to: Refusing to respond Alcohol intake: current Alcohol intake frequency: 0-2 drinks per day Alcohol type: beer and hard liquor Patient Tobacco Use Status: Current everyday Tobacco user Tobacco use type: Cigarette Cigarette Packs Per Day: 1.5 Cigarettes Per Day: 15 Years Smoked: 38 e-Cigarette/Vaping Use: Never Used Second Hand Smoke Exposure: No Substance Use Type: Crack/Cocaine and Heroin Advance Directives: No Advance Directives Information Provided: Yes service: No Current occupational status: unemployed Sexual orientation: Straight/Heterosexual Physical Exam Vital Signs: Vital Signs: Last Vital Signs Temp 97.3 F 12/17/21 01:15 Pulse 74 12/17/21 01:15 Resp 16 12/17/21 01:15 BP 163/106 H 12/17/21 01:15 Pulse Ox 98 12/17/21 01:15 O2 Del Method 12/17/21 01:15 BMI result Body Mass Index 22.4 Const: Other: Appearance: Alert. Oriented X3. No acute distress. Eyes: Pupils equal, round and reactive to light. ENT: Pharynx normal. Neck: Normal inspection. Neck supple. No lymph nodes noted. No crepitus CVS: Normal heart rate and rhythm. Pulses normal. Normal S1 and S2 Respiratory: No respiratory distress. Breath sounds normal. No Wheezing. No rales Abdomen: Soft and nontender. No rigidity. No distention. Skin: Skin warm and dry. Normal skin color. Normal skin turgor. Extremities: No lower extremity edema. No Lacerations. No Rash Neuro: Oriented X 3. No motor deficit. No sensory deficit. Moving all extremities. No slurred speech. CN 2 through 12 grossly intact Psych: calm, cooperative, flat affect, speaks very softly, mumbling (no slurred speech), difficult to understand, using 2-3 word sentences Course Course Course Narrative: Patient was seen by [facility] in the community, patient came by ambulance, he is on a Section 12 and is currently a bed search. On arrival, blood sugar 107. Physician observation started at 11:35 [facility] - Psych Lab Data Result diagrams: 12/16/21 11:56 12/16/21 11:56 Labs: Lab Results 12/16/21 12/16/21 12/16/21 Range/Units 11:30 11:50 11:50 WBC (4.8-10.8) X10*3/uL RBC (4.60-5.80) X10*6/uL Hgb (14.0-18.0) g/dl Hct (42.0-52.0) % MCV (80.0-98.0) fL MCH (27.0-33.0) pg MCHC (31.0-36.0) g/dl RDW (11.0-16.0) % Plt Count (160-400) X10*3/uL MPV (9.4-12.4) fL Immature Gran % (Auto) (0.0-0.4) % Neut % (Auto) (45-73) % Lymph % (Auto) (20-40) % [place] % (Auto) (2-11) % Eos % (Auto) (0-4) % Baso % (Auto) (0-2) % Lymph # (Auto) (1.2-4.9) X10*3/uL [place] # (Auto) (0.1-1.2) X10*3/uL Eos # (Auto) (0.0-0.4) X10*3/uL Baso # (Auto) (0.0-0.2) X10*3/uL Abs Immat Gran (auto) (0.00-0.03) X10*3/uL Absolute Neuts (auto) (2.0-8.3) x10*3/uL Absolute Nucleated RBC (0.0-0.012) X10*3/uL Nucleated RBC % (auto) (0.0-0.2) /100WBC Sodium (135-145) mmol/L Potassium (3.3-5.1) mmol/L Chloride (96-108) mmol/L Carbon Dioxide (22-29) mmol/L Anion Gap (12-20) BUN (9-16) mg/dL Creatinine (0.5-1.4) mg/dL Estim Creat Clear Calc Estimated GFR POC Glucose 107 (60-115) mg/dL Random Glucose (60-115) mg/dL Calcium (8.4-10.2) mg/dL Magnesium (1.6-2.6) mg/dL Total Bilirubin (0.0-1.0) mg/dL Direct Bilirubin (0.0-0.5) mg/dL AST (5-37) U/L ALT (0-40) U/L Alkaline Phosphatase (39-117) U/L Total Protein (6.5-8.0) g/dL Albumin (3.5-5.0) g/dL Urine Color Dark Yellow Urine Appearance Cloudy Urine pH 5.5 (5.0-9.0) Ur Specific [place] >= 1.030 H (1.005-1.025) Urine Protein 100 (2+) H (Neg-Trace) mg/dL Urine Glucose (UA) Negative (Negative) mg/dL Urine Ketones Trace (Negative) mg/dL Urine Blood Large (3+) H (Negative) Urine Nitrite Positive H (Negative) Ur Leukocyte Esterase Moderate (2+) H (Negative) Urine RBC 6-10 H (0-2) /HPF Urine WBC >50 H (0-5) /HPF Ur Squamous Epith Cells 0-2 (0-2) /HPF Urine Bacteria 1+ (None Seen) Hyaline Casts 0-2 (0-2) /LPF Urine Opiates Screen (Not Detect) Urine Fentanyl Screen (Not Detect) Ur Barbiturates Screen (Not Detect) Ur Phencyclidine Scrn (Not Detect) Ur Amphetamines Screen (Not Detect) U Benzodiazepines Scrn (Not Detect) Urine Cocaine Screen (Not Detect) U Marijuana (THC) Screen (Not Detect) Ethyl Alcohol mg/dL COVID-19 (DELIO) Negative (Negative) COVID-19 Clin Com See Note 12/16/21 12/16/21 12/16/21 Range/Units 11:50 11:56 11:56 WBC 9.4 (4.8-10.8) X10*3/uL RBC 5.05 (4.60-5.80) X10*6/uL Hgb 15.2 (14.0-18.0) g/dl Hct 44.2 (42.0-52.0) % MCV 87.5 (80.0-98.0) fL MCH 30.1 (27.0-33.0) pg MCHC 34.4 (31.0-36.0) g/dl RDW 12.1 (11.0-16.0) % Plt Count 352 (160-400) X10*3/uL MPV 10.4 (9.4-12.4) fL Immature Gran % (Auto) 0.3 (0.0-0.4) % Neut % (Auto) 64.8 (45-73) % Lymph % (Auto) 25.3 (20-40) % [place] % (Auto) 8.8 (2-11) % Eos % (Auto) 0.3 (0-4) % Baso % (Auto) 0.5 (0-2) % Lymph # (Auto) 2.4 (1.2-4.9) X10*3/uL [place] # (Auto) 0.8 (0.1-1.2) X10*3/uL Eos # (Auto) 0.0 (0.0-0.4) X10*3/uL Baso # (Auto) 0.1 (0.0-0.2) X10*3/uL Abs Immat Gran (auto) 0.03 (0.00-0.03) X10*3/uL Absolute Neuts (auto) 6.1 (2.0-8.3) x10*3/uL Absolute Nucleated RBC 0.000 (0.0-0.012) X10*3/uL Nucleated RBC % (auto) 0.0 (0.0-0.2) /100WBC Sodium 139 (135-145) mmol/L Potassium 3.8 (3.3-5.1) mmol/L Chloride 101 (96-108) mmol/L Carbon Dioxide 26 (22-29) mmol/L Anion Gap 16 (12-20) BUN 12 (9-16) mg/dL Creatinine 0.83 (0.5-1.4) mg/dL Estim Creat Clear Calc 123.8 Estimated GFR > 60 POC Glucose (60-115) mg/dL Random Glucose 83 D (60-115) mg/dL Calcium 9.4 (8.4-10.2) mg/dL Magnesium 1.8 (1.6-2.6) mg/dL Total Bilirubin 0.5 (0.0-1.0) mg/dL Direct Bilirubin 0.3 (0.0-0.5) mg/dL AST 42 H D (5-37) U/L ALT 34 (0-40) U/L Alkaline Phosphatase 57 (39-117) U/L Total Protein 8.5 H (6.5-8.0) g/dL Albumin 4.3 (3.5-5.0) g/dL Urine Color Urine Appearance Urine pH (5.0-9.0) Ur Specific [place] (1.005-1.025) Urine Protein (Neg-Trace) mg/dL Urine Glucose (UA) (Negative) mg/dL Urine Ketones (Negative) mg/dL Urine Blood (Negative) Urine Nitrite (Negative) Ur Leukocyte Esterase (Negative) Urine RBC (0-2) /HPF Urine WBC (0-5) /HPF Ur Squamous Epith Cells (0-2) /HPF Urine Bacteria (None Seen) Hyaline Casts (0-2) /LPF Urine Opiates Screen POSITIVE H (Not Detect) Urine Fentanyl Screen POSITIVE H (Not Detect) Ur Barbiturates Screen Not Detected (Not Detect) Ur Phencyclidine Scrn Not Detected (Not Detect) Ur Amphetamines Screen POSITIVE H (Not Detect) U Benzodiazepines Scrn Not Detected (Not Detect) Urine Cocaine Screen POSITIVE H (Not Detect) U Marijuana (THC) Screen POSITIVE H (Not Detect) Ethyl Alcohol < 10 mg/dL COVID-19 (DELIO) (Negative) COVID-19 Clin Com Discharge Plan Discharge Clinical Impression: Suicidal ideation, Urinary tract infection Patient Disposition: Still a Patient Prescriptions: No Action amlodipine 5 mg tablet 10 mg PO DAILY trazodone 100 mg tablet 150 mg PO BEDTIME quetiapine 200 mg tablet 50 mg PO BEDTIME metformin 500 mg tablet 1 tab PO BID gabapentin 600 mg tablet 1 tab PO TID buprenorphine-naloxone [Suboxone] 8-2 mg Tablet, Sublingual 1 tab SUBLINGUAL TID bupropion HCl 300 mg tablet extended release 24 hr 1 tab PO QAM bupropion HCl 150 mg tablet extended release 24 hr 1 tab PO QAM aripiprazole 5 mg tablet 1 tab PO DAILY pantoprazole 40 mg tablet,delayed release (DR/EC) 1 tab PO QAM
[2021-12-16 11:33] LABS: Glucose, Whole Blood 107 mg/dL (60-115)
--- NOTE | 2021-12-16 11:34 | ECG_ITS ---
Test Reason : CHEST PAIN Blood Pressure : / mmHG Vent. Rate : 074 BPM Atrial Rate : 074 BPM P-R Int : 174 ms QRS Dur : 156 ms QT Int : 454 ms P-R-T Axes : 048 013 054 degrees QTc Int : 503 ms Normal sinus rhythm Right bundle branch block Abnormal ECG When compared with ECG of 15-MAR-2021 16:49, No significant change was found Referred By: Es Mendez Electronically Signed By:JOSE JOE
[2021-12-16 11:52] VITALS: BP 167/109; BP 167/74; PULSE 81; PULSE 84; RESP 18; TEMP 36.5; O2SAT 97; BMI 22.4
[2021-12-16 12:18] LABS: MANUAL DIFF FLAG NO
[2021-12-16 12:22] LABS: Appearance Urine Cloudy; Color Urine Dark Yellow; Glucose Urine UA Negative (Negative); Leukocyte Esterase Urine Moderate (2+) (Negative); Nitrite Urine Positive (Negative); PH 5.5 (5.0-9.0); Specific Gravity - Urine >= 1.030 (1.005-1.025); Urine Blood Large (3+) (Negative); Urine Ketones Trace mg/dL (Negative); Urine Protein 100 (2+) mg/dL (Neg-Trace)
[2021-12-16 12:23] LABS: UACC Culture Trigger YES
[2021-12-16 12:24] LABS: Bacteria Urine 1+ (None Seen); Hyaline Casts Urine 0-2 /LPF (0-2); Squamous Epithelial Cell Urine 0-2 /HPF (0-2); WBC Urine >50 /HPF (0-5)
[2021-12-16 12:39] LABS: Basophils Absolute Auto 0.1 X10*3/uL (0.0-0.2); Basophils Percent Auto 0.5 % (0-2); Eosinophils Percent Auto 0.3 % (0-4); Hematocrit 44.2 % (42.0-52.0); Hemoglobin 15.2 g/dl (14.0-18.0); Imm Gran Abs Auto 0.03 X10*3/uL (0.00-0.03); Imm Gran Pct Auto 0.3 % (0.0-0.4); Lymphocytes Absolute Auto 2.4 X10*3/uL (1.2-4.9); Lymphocytes Percent Auto 25.3 % (20-40); Mean Corpuscular HGB Conc 34.4 g/dl (31.0-36.0); Mean Corpuscular Hemoglobin 30.1 pg (27.0-33.0); Mean Corpuscular Volume 87.5 fL (80.0-98.0); Mean Platelet Volume 10.4 fL (9.4-12.4); Monocytes Absolute Auto 0.8 X10*3/uL (0.1-1.2); Monocytes Percent Auto 8.8 % (2-11); Neutrophils Absolute Auto 6.1 x10*3/uL (2.0-8.3); Neutrophils Percent Auto 64.8 % (45-73); Platelet Count 352 X10*3/uL (160-400); Red Blood Count 5.05 X10*6/uL (4.60-5.80); Red Cell Distribution Width 12.1 % (11.0-16.0); White Blood Count 9.4 X10*3/uL (4.8-10.8)
[2021-12-16 12:42] LABS: COVID-19 Test Negative (Negative); IDNOW Serial# 55D5AD1C
[2021-12-16 12:43] LABS: Amphetamine Screen Urine POSITIVE (Not Detect); Barbiturates, Urine Not Detected (Not Detect); Benzodiazepines Screen Urine Not Detected (Not Detect); Cannabinoid Screen Urine POSITIVE (Not Detect); Cocaine Screen Urine POSITIVE (Not Detect); Fentanyl, urine POSITIVE (Not Detect); Opiate Screen Urine POSITIVE (Not Detect); Phencyclidine Screen Urine Not Detected (Not Detect)
[2021-12-16 12:44] LABS: Alanine Aminotransferase 34 U/L (0-40); Albumin Level 4.3 g/dL (3.5-5.0); Alkaline Phosphatase 57 U/L (39-117); Anion Gap 16 (12-20); Aspartate Amino Transferase 42 U/L (5-37); Bilirubin Direct 0.3 mg/dL (0.0-0.5); Bilirubin Total 0.5 mg/dL (0.0-1.0); Blood Urea Nitrogen 12 mg/dL (9-16); Calcium 9.4 mg/dL (8.4-10.2); Carbon Dioxide 26 mmol/L (22-29); Chloride 101 mmol/L (96-108); Creatinine Clr Calc Pharmacy 123.8; Estimated Glomerular Filt Rate > 60; Ethanol < 10 mg/dL; Glucose Random 83 mg/dL (60-115); Magnesium 1.8 mg/dL (1.6-2.6); Potassium 3.8 mmol/L (3.3-5.1); Sodium 139 mmol/L (135-145); Total Protein 8.5 g/dL (6.5-8.0)
[2021-12-16] MEDS: LORazepam 1 MG TABLET 2 MG PO (16:29)
[2021-12-16] MEDS: Multivitamin TABLET 1 TAB PO (21:26)
[2021-12-16] MEDS: Gabapentin 600 MG TABLET PO (21:26)
[2021-12-16] MEDS: Buprenorphine/Naloxone 8/2 mg TAB.SUBL 1 TAB SUBLINGUAL (21:38)
[2021-12-17 01:15] VITALS: BP 163/106; PULSE 74; RESP 16; TEMP 36.3; O2SAT 98
[2021-12-17] MEDS: ARIPiprazole 5 MG TABLET PO (08:25)
[2021-12-17] MEDS: Buprenorphine/Naloxone 8/2 mg TAB.SUBL 1 TAB SUBLINGUAL ×3 (08:26→20:39)
[2021-12-17] MEDS: Multivitamin TABLET 1 TAB PO (08:26)
[2021-12-17] MEDS: metFORMIN HCl 500 MG TABLET PO ×2 (08:26→17:39)
[2021-12-17] MEDS: buPROPion HCl XL 300 MG TAB.ER.24H PO (08:26)
[2021-12-17] MEDS: Gabapentin 600 MG TABLET PO ×3 (08:26→20:39)
[2021-12-17] MEDS: amLODIPine Besylate 10 MG TABLET PO (08:26)
[2021-12-17 11:00] VITALS: BP 149/89; PULSE 67; RESP 18; TEMP 36.8; O2SAT 95
--- NOTE | 2021-12-17 11:32 | PHA.MEDREC ---
Pharmacy Consult ? Medication Reconciliation rn has completed the medication reconciliation. pharmacy reviewed
[2021-12-17 14:36] LABS: IDNOW Serial# 16C4AD1C
[2021-12-17 14:37] LABS: COVID-19 Test Negative (Negative)
[2021-12-17 15:15] VITALS: BP 146/96; PULSE 16; RESP 16; TEMP 36.8; O2SAT 97
[2021-12-17 16:56] LABS: Glucose, Whole Blood 94 mg/dL (60-115)
--- NOTE | 2021-12-17 17:03 | PC.ADMIT ---
Pt. brought from ED BH pod onto unit 1510 via WC accompanied by security and this chart writer. Pt. known to unit from prior inpatient stay. Has been homeless in [place] area until recently. Had presented as walk in to crisis for SI with command hallucinations to kill himself and was brought to ED. Pt. Struggles with homelessness and polysubstance abuse. Pt. signed CV and releases for PCP, insurance, father, and pharmacy. Does not currently have psychiatrist or therapist. Pt. A & O X 4. During admission process, pt. was overall cooperative, but made poor eye contact, slumped in chair, and asked bruskly multiple times. Can you just speed this up? followed by a quick apology, I'm sorry. It's me. I just don't feel good. Pt. oriented to unit and room. Smoking and visitor policies explained. VSS and POC glucose 92. Pt. sleeping soundly shortly after admission.
[2021-12-17] MEDS: traZODone HCL 50 MG TABLET 150 MG PO (20:38)
[2021-12-17] MEDS: QUEtiapine Fumarate 50 MG TABLET PO (20:40)
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
[2021-12-17 22:05] LABS: Glucose, Whole Blood 87 mg/dL (60-115)
[2021-12-17] MEDS: Insulin Glargine,Hum.rec.anlog 100 UNIT/ML 10 ML VIAL 70 UNIT SUBCUT (22:14)
[2021-12-18] MEDS: Omeprazole 20 MG CAPSULE.DR PO (06:51)
[2021-12-18 08:50] VITALS: BP 139/90; PULSE 65; RESP 18; O2SAT 97
[2021-12-18] MEDS: Gabapentin 400 MG CAPSULE 800 MG PO (09:08)
[2021-12-18] MEDS: amLODIPine Besylate 10 MG TABLET PO (09:09)
[2021-12-18] MEDS: ARIPiprazole 5 MG TABLET PO (09:09)
[2021-12-18 09:10] LABS: Estimated Average Glucose 117 mg/dL; Hemoglobin A1c % 5.7 %
[2021-12-18] MEDS: metFORMIN HCl 500 MG TABLET PO ×2 (09:10→20:13)
[2021-12-18] MEDS: buPROPion HCl XL 150 MG TAB.ER.24H 450 MG PO (09:10)
[2021-12-18] MEDS: Buprenorphine/Naloxone 8/2 mg TAB.SUBL 1 TAB SUBLINGUAL ×3 (09:11→20:49)
[2021-12-18] MEDS: Multivitamin TABLET 1 TAB PO (09:11)
[2021-12-18 09:17] LABS: Cholesterol 150 mg/dL; HDL Cholesterol 42 mg/dL; LDL Cholesterol Calculated 87 mg/dl; Magnesium 1.9 mg/dL (1.6-2.6); Triglycerides 107 mg/dL
[2021-12-18 09:41] LABS: Free T4 (Free Thyroxine) 1.07 ng/dL (0.71-1.85)
[2021-12-18 09:57] LABS: Folate 13.9 ng/mL (> or = 4.0); Vitamin B12 465 pg/mL (200-900)
[2021-12-18] MEDS: Gabapentin 300 MG CAPSULE PO (11:05)
[2021-12-18] MEDS: Nicotine 21 MG PATCH.TD24 TRANSDERMA (11:05)
[2021-12-18] MEDS: LORazepam 1 MG TABLET PO ×3 (11:05→20:50)
[2021-12-18] MEDS: Ibuprofen 400 MG TABLET PO (11:10)
[2021-12-18 11:56] LABS: Glucose, Whole Blood 77 mg/dL (60-115)
[2021-12-18 12:02] LABS: Glucose, Whole Blood 115 mg/dL (60-115)
[2021-12-18 17:22] LABS: Glucose, Whole Blood 69 mg/dL (60-115)
--- NOTE | 2021-12-18 17:45 | HO.PSYCHPN ---
Subjective Subjective Date of Service: 12/18/21 Reason For Visit: Depression w psychosis, polysubstance abuse Interim History: Patient in withdrawal and uncomfortable. Says he drinks 3 pint of vodka plus at least 3 beers a day. Patient still feels depressed and has intermittent suicidal thoughts. Says AH is subsiding and only present when depressed. Patient is ambivalent about medications; he thinks that maybe there partially helpful but not exactly sure. He does however agree that medications will have trouble being helpful as long as he is continually engaged in substance abuse. For right now patient agrees to leave medication doses where they are, specifically Wellbutrin and Abilify and to reassess once he is through withdrawal. Diagnostics Vital Signs (24Hr): Vital Signs - 24 hr 12/18/21 08:50 Pulse Rate 65 Respiratory Rate 18 Blood Pressure 139/90 H Pulse Oximetry 97 Oxygen Delivery Method Room Air BMI result Body Mass Index 22.4 Labs Results: 12/16/21 11:56 12/16/21 11:56 Labs: Laboratory Results - last 48 hr 12/17/21 12/17/21 12/17/21 14:15 16:51 21:51 POC Glucose 94 87 Estimat Average Glucose Hemoglobin A1c % Magnesium Triglycerides Cholesterol LDL Cholesterol, Calc HDL Cholesterol Vitamin B12 Folate TSH Free T4 COVID-19 (DELIO) Negative COVID-19 Clin Com See Note 12/18/21 12/18/21 12/18/21 08:00 08:00 08:00 POC Glucose Estimat Average Glucose 117 Hemoglobin A1c % 5.7 Magnesium 1.9 Triglycerides 107 Cholesterol 150 LDL Cholesterol, Calc 87 HDL Cholesterol 42 Vitamin B12 465 Folate 13.9 TSH 1.20 Free T4 1.07 COVID-19 (DELIO) COVID-19 Clin Com 12/18/21 12/18/21 12/18/21 08:02 11:58 17:18 POC Glucose 77 115 69 Estimat Average Glucose Hemoglobin A1c % Magnesium Triglycerides Cholesterol LDL Cholesterol, Calc HDL Cholesterol Vitamin B12 Folate TSH Free T4 COVID-19 (DELIO) COVID-19 Clin Com Medications Medications Current Medications Acetaminophen (Acetaminophen 325 Mg Tablet) 650 mg PO Q6H PRN PRN Reason: Headache/Pain Mild Scale (1-3) Al Hydroxide/Mg Hydroxide (Magnesium Hydrox/Alum Hydrox 30 Ml Oral.Susp) 30 ml PO Q6H PRN PRN Reason: Heartburn/Nausea Amlodipine Besylate (Amlodipine Besylate 10 Mg Tablet) 10 mg PO DAILY [facility]; Protocol Last Admin: 12/18/21 09:09 Dose: 10 mg Aripiprazole (Aripiprazole 5 Mg Tablet) 5 mg PO DAILY [facility] Last Admin: 12/18/21 09:09 Dose: 5 mg Buprenorphine/Naloxone (Buprenorphine/Naloxone 8/2 Mg Tab.Subl) 1 tab SUBLINGUAL TID [facility] Last Admin: 12/18/21 14:24 Dose: 1 tab Bupropion HCl (Bupropion Hcl Xl 150 Mg Tab.Er.24h) 450 mg PO DAILY [facility] Last Admin: 12/18/21 09:10 Dose: 450 mg Cefuroxime Axetil (Cefuroxime Axetil 250 Mg Tablet) 250 mg PO BID [facility] Last Admin: 12/18/21 09:09 Dose: 250 mg Clonidine HCl (Clonidine Hcl 0.1 Mg Tablet) 0.1 mg PO TID PRN; Protocol PRN Reason: hyperarousal, withdrawal, anxiety Docusate Sodium (Docusate Sodium 100 Mg Capsule) 100 mg PO BID PRN PRN Reason: constipation Gabapentin (Gabapentin 300 Mg Capsule) 600 mg PO TID [facility] Last Admin: 12/18/21 14:37 Dose: Not Given Hydroxyzine HCl (Hydroxyzine Hcl 50 Mg Tablet) 50 mg PO Q6H PRN PRN Reason: Anxiety Ibuprofen (Ibuprofen 400 Mg Tablet) 400 mg PO Q6H PRN PRN Reason: mod pain Last Admin: 12/18/21 11:10 Dose: 400 mg Insulin Glargine (Insulin Glargine,Hum.Rec.Anlog 100 Unit/Ml 10 Ml Vial) 70 unit SUBCUT BEDTIME [facility] Last Admin: 12/17/21 22:14 Dose: 70 unit Insulin Human Lispro (Insulin Lispro 100 Unit/Ml 3 Ml Vial) 0 unit SUBCUT QIDACHS [facility]; Protocol Last Admin: 12/18/21 17:41 Dose: Not Given Lorazepam (Lorazepam 1 Mg Tablet) 1 mg PO TID [facility] Stop: 12/20/21 23:59 Last Admin: 12/18/21 14:24 Dose: 1 mg Lorazepam (Lorazepam 1 Mg Tablet) 2 mg PO Q2H PRN PRN Reason: CIWA=>13 Lorazepam (Lorazepam 1 Mg Tablet) 1 mg PO Q2H PRN PRN Reason: CIWA 6-12 Magnesium Hydroxide (Milk Of Magnesia 30 Ml Oral.Susp) 30 ml PO DAILY PRN PRN Reason: Constipation Metformin HCl (Metformin Hcl 500 Mg Tablet) 500 mg PO BIDWM [facility] Last Admin: 12/18/21 09:10 Dose: 500 mg Multivitamins/Vitamin C (Multivitamin Tablet) 1 tab PO DAILY [facility] Last Admin: 12/18/21 09:11 Dose: 1 tab Nicotine (Nicotine 21 Mg Patch.Td24) 21 mg TRANSDERMA DAILY [facility] Last Admin: 12/18/21 11:05 Dose: 21 mg Omeprazole (Omeprazole 20 Mg Capsule.Dr) 20 mg PO DAILY@0630 [facility] Last Admin: 12/18/21 06:51 Dose: 20 mg Quetiapine Fumarate (Quetiapine Fumarate 50 Mg Tablet) 50 mg PO BEDTIME [facility] Last Admin: 12/17/21 20:40 Dose: 50 mg Trazodone HCl (Trazodone Hcl 50 Mg Tablet) 150 mg PO BEDTIME [facility] Last Admin: 12/17/21 20:38 Dose: 150 mg Allergies Allergies Allergy/AdvReac Type Severity Reaction Status Date / Time levofloxacin [From Levaquin] Allergy Intermediate rash Verified 11/21/20 20:44 Assessment & Plan Assessment & Plan (1) MDD (major depressive disorder), recurrent, severe, with psychosis: Status: Acute Code(s): F33.3 - Major depressive disorder, recurrent, severe with psychotic symptoms (2) Opioid use disorder: Status: Acute Code(s): F11.99 - Opioid use, unspecified with unspecified opioid-induced disorder (3) Stimulant use disorder: Status: Acute Code(s): F15.90 - Other stimulant use, unspecified, uncomplicated Plan Sukhwinder is a 46 y.o. Male who carries a dx of polysubstance abuse, MDD recurrent with psychotic features. He presented to [facility] on 12/16/2021 due SI with plan to stab himself, depression, and CAH telling him he should kill himself, poor sleep/ appetite. Precipitating factors include relapse on substances with daily opiate abuse, med non-adherence x 2 weeks, and chronic homelessness. Hx of multiple detox and inpatient admissions, hx of not following through with outpatient referrals. Last admitted to [facility] in 11/2020. Utox positive for opiates, fentanyl, cocaine, amphetamines, and cannabis. 12/18 depressed, intermittent SI; AH subsiding. In withdrawal and on CIWA. For right now patient agrees to leave medication doses where they are, specifically Wellbutrin and Abilify and to reassess once he is through withdrawal. Mortar Man discussed with patient that symptom reduction is only consistently possible if patient pursue sobriety and engages in therapy to which he agrees. Plan: Q15 min safety checks, CV CIWA + Ativan Taper GAbapentin restarted but at lower dose of 600mg TID; will consider whether not this is appropriate to continue post discharge Otherwise home meds were continued -consider increasing abilify for mood stability, AH. -consider restarting SSRI/ SNRI, as pt has hx of being stable on zoloft. ? Monitor response to medications. Monitor for safety in the milieu. Discharge on stabilization. Patient seen. Chart reviewed. Discussed with team. Obtain collateral contact info?as needed I spent minutes with the patient and/or on the patient floor today, greater than?50% of which was spent counseling/coordinating care. Patient educated on: diagnosis, medication risk/benefits, substance abuse and therapeutic strategies Informed Consent: understands Reason for contiued inpatient stay Substantial Risk for: harm to self and rapid decompensation
[2021-12-18 18:00] VITALS: BP 122/78; PULSE 68; RESP 16; TEMP 36.5; O2SAT 99
[2021-12-18] MEDS: Insulin Glargine,Hum.rec.anlog 100 UNIT/ML 10 ML VIAL 70 UNIT SUBCUT (20:48)
[2021-12-18] MEDS: traZODone HCL 50 MG TABLET 150 MG PO (20:49)
[2021-12-18] MEDS: Gabapentin 300 MG CAPSULE 600 MG PO (20:50)
[2021-12-18] MEDS: QUEtiapine Fumarate 50 MG TABLET PO (20:50)
[2021-12-18 21:01] LABS: Glucose, Whole Blood 128 mg/dL (60-115)
[2021-12-19 06:00] VITALS: BP 144/86; PULSE 69; RESP 16; TEMP 37.2; O2SAT 97
[2021-12-19 08:37] LABS: Glucose, Whole Blood 120 mg/dL (60-115)
[2021-12-19] MEDS: Gabapentin 300 MG CAPSULE 600 MG PO ×3 (10:28→21:01)
[2021-12-19] MEDS: buPROPion HCl XL 150 MG TAB.ER.24H 450 MG PO (10:29)
[2021-12-19] MEDS: Multivitamin TABLET 1 TAB PO (10:30)
[2021-12-19] MEDS: metFORMIN HCl 500 MG TABLET PO ×2 (10:30→16:34)
[2021-12-19] MEDS: amLODIPine Besylate 10 MG TABLET PO (10:30)
[2021-12-19] MEDS: ARIPiprazole 5 MG TABLET PO (10:30)
[2021-12-19] MEDS: Buprenorphine/Naloxone 8/2 mg TAB.SUBL 1 TAB SUBLINGUAL ×3 (10:32→21:12)
[2021-12-19] MEDS: Nicotine 21 MG PATCH.TD24 TRANSDERMA (10:35)
[2021-12-19] MEDS: LORazepam 1 MG TABLET PO ×2 (10:36→16:34)
[2021-12-19 12:40] LABS: Glucose, Whole Blood 99 mg/dL (60-115)
--- NOTE | 2021-12-19 15:10 | HO.PSYCHPN ---
Subjective Subjective Date of Service: 12/19/21 Reason For Visit: Depression w psychosis, polysubstance abuse Subjective Notes: Conditional Voluntary Interim History: Met with patient. Discussed with Nursing. Overall reports things are going okay. Still feels depressed and suicidal but denies plans. Motivation low. Appetite okay. Still endorses alcohol withdrawal symptoms. Is on CIWA. Still endorses auditory hallucinations that are negative in nature but non command. Feels supported. Sleep okay. Medication Compliance: Yes Side effects from medications: No Attending Groups: No Review of Systems Acute medical concerns: No Review of Systems Review of Systems Withdrawal symptoms improving Mental Status Exam Mental Status Exam Narrative: Pleasant. Engaged. Hospital clothing. Self-care fair. Still endorses depression and intermittent SI but no plans. Auditory hallucinations non command. Insight judgment fair Diagnostics Vital Signs (24Hr): Vital Signs - 24 hr 12/18/21 18:00 12/19/21 06:00 Temperature 97.7 F 98.9 F Pulse Rate 68 69 Respiratory Rate 16 16 Blood Pressure 122/78 144/86 H Pulse Oximetry 99 97 Oxygen Delivery Method Room Air Room Air BMI result Body Mass Index 22.4 Labs Results: 12/16/21 11:56 12/16/21 11:56 Labs: Laboratory Results - last 48 hr 12/17/21 12/17/21 12/18/21 16:51 21:51 08:00 POC Glucose 94 87 Estimat Average Glucose 117 Hemoglobin A1c % 5.7 Magnesium Triglycerides Cholesterol LDL Cholesterol, Calc HDL Cholesterol Vitamin B12 Folate TSH Free T4 12/18/21 12/18/21 12/18/21 08:00 08:00 08:02 POC Glucose 77 Estimat Average Glucose Hemoglobin A1c % Magnesium 1.9 Triglycerides 107 Cholesterol 150 LDL Cholesterol, Calc 87 HDL Cholesterol 42 Vitamin B12 465 Folate 13.9 TSH 1.20 Free T4 1.07 12/18/21 12/18/21 12/18/21 11:58 17:18 20:58 POC Glucose 115 69 128 H Estimat Average Glucose Hemoglobin A1c % Magnesium Triglycerides Cholesterol LDL Cholesterol, Calc HDL Cholesterol Vitamin B12 Folate TSH Free T4 12/19/21 12/19/21 08:33 12:36 POC Glucose 120 H 99 Estimat Average Glucose Hemoglobin A1c % Magnesium Triglycerides Cholesterol LDL Cholesterol, Calc HDL Cholesterol Vitamin B12 Folate TSH Free T4 Medications Medications Current Medications Acetaminophen (Acetaminophen 325 Mg Tablet) 650 mg PO Q6H PRN PRN Reason: Headache/Pain Mild Scale (1-3) Al Hydroxide/Mg Hydroxide (Magnesium Hydrox/Alum Hydrox 30 Ml Oral.Susp) 30 ml PO Q6H PRN PRN Reason: Heartburn/Nausea Amlodipine Besylate (Amlodipine Besylate 10 Mg Tablet) 10 mg PO DAILY [facility]; Protocol Last Admin: 12/19/21 10:30 Dose: 10 mg Aripiprazole (Aripiprazole 5 Mg Tablet) 5 mg PO DAILY [facility] Last Admin: 12/19/21 10:30 Dose: 5 mg Buprenorphine/Naloxone (Buprenorphine/Naloxone 8/2 Mg Tab.Subl) 1 tab SUBLINGUAL TID [facility] Last Admin: 12/19/21 10:32 Dose: 1 tab Bupropion HCl (Bupropion Hcl Xl 150 Mg Tab.Er.24h) 450 mg PO DAILY [facility] Last Admin: 12/19/21 10:29 Dose: 450 mg Cefuroxime Axetil (Cefuroxime Axetil 250 Mg Tablet) 250 mg PO BID [facility] Last Admin: 12/19/21 10:29 Dose: 250 mg Clonidine HCl (Clonidine Hcl 0.1 Mg Tablet) 0.1 mg PO TID PRN; Protocol PRN Reason: hyperarousal, withdrawal, anxiety Docusate Sodium (Docusate Sodium 100 Mg Capsule) 100 mg PO BID PRN PRN Reason: constipation Gabapentin (Gabapentin 300 Mg Capsule) 600 mg PO TID [facility] Last Admin: 12/19/21 10:28 Dose: 600 mg Hydroxyzine HCl (Hydroxyzine Hcl 50 Mg Tablet) 50 mg PO Q6H PRN PRN Reason: Anxiety Ibuprofen (Ibuprofen 400 Mg Tablet) 400 mg PO Q6H PRN PRN Reason: mod pain Last Admin: 12/18/21 11:10 Dose: 400 mg Insulin Glargine (Insulin Glargine,Hum.Rec.Anlog 100 Unit/Ml 10 Ml Vial) 70 unit SUBCUT BEDTIME [facility] Last Admin: 12/18/21 20:48 Dose: 70 unit Insulin Human Lispro (Insulin Lispro 100 Unit/Ml 3 Ml Vial) 0 unit SUBCUT QIDACHS [facility]; Protocol Last Admin: 12/19/21 12:53 Dose: Not Given Lorazepam (Lorazepam 1 Mg Tablet) 1 mg PO TID [facility] Stop: 12/20/21 23:59 Last Admin: 12/19/21 10:36 Dose: 1 mg Lorazepam (Lorazepam 1 Mg Tablet) 2 mg PO Q2H PRN PRN Reason: CIWA=>13 Lorazepam (Lorazepam 1 Mg Tablet) 1 mg PO Q2H PRN PRN Reason: CIWA 6-12 Lorazepam (Lorazepam 1 Mg Tablet) 1 mg PO BID [facility] Magnesium Hydroxide (Milk Of Magnesia 30 Ml Oral.Susp) 30 ml PO DAILY PRN PRN Reason: Constipation Metformin HCl (Metformin Hcl 500 Mg Tablet) 500 mg PO BIDWM [facility] Last Admin: 12/19/21 10:30 Dose: 500 mg Multivitamins/Vitamin C (Multivitamin Tablet) 1 tab PO DAILY [facility] Last Admin: 12/19/21 10:30 Dose: 1 tab Nicotine (Nicotine 21 Mg Patch.Td24) 21 mg TRANSDERMA DAILY [facility] Last Admin: 12/19/21 10:35 Dose: 21 mg Omeprazole (Omeprazole 20 Mg Capsule.Dr) 20 mg PO DAILY@0630 [facility] Last Admin: 12/18/21 06:51 Dose: 20 mg Quetiapine Fumarate (Quetiapine Fumarate 50 Mg Tablet) 50 mg PO BEDTIME [facility] Last Admin: 12/18/21 20:50 Dose: 50 mg Trazodone HCl (Trazodone Hcl 50 Mg Tablet) 150 mg PO BEDTIME [facility] Last Admin: 12/18/21 20:49 Dose: 150 mg Allergies Allergies Allergy/AdvReac Type Severity Reaction Status Date / Time levofloxacin [From Levaquin] Allergy Intermediate rash Verified 11/21/20 20:44 Assessment & Plan Assessment & Plan (1) MDD (major depressive disorder), recurrent, severe, with psychosis: Status: Acute Code(s): F33.3 - Major depressive disorder, recurrent, severe with psychotic symptoms (2) Opioid use disorder: Status: Acute Code(s): F11.99 - Opioid use, unspecified with unspecified opioid-induced disorder (3) Stimulant use disorder: Status: Acute Code(s): F15.90 - Other stimulant use, unspecified, uncomplicated Plan Sukhwinder is a 46 y.o. Male who carries a dx of polysubstance abuse, MDD recurrent with psychotic features. He presented to [facility] on 12/16/2021 due SI with plan to stab himself, depression, and CAH telling him he should kill himself, poor sleep/ appetite. Precipitating factors include relapse on substances with daily opiate abuse, med non-adherence x 2 weeks, and chronic homelessness. Hx of multiple detox and inpatient admissions, hx of not following through with outpatient referrals. Last admitted to [facility] M5 in 11/2020. Utox positive for opiates, fentanyl, cocaine, amphetamines, and cannabis. 12/18 depressed, intermittent SI; AH subsiding. In withdrawal and on CIWA. For right now patient agrees to leave medication doses where they are, specifically Wellbutrin and Abilify and to reassess once he is through withdrawal. Mechanical Service Technician discussed with patient that symptom reduction is only consistently possible if patient pursue sobriety and engages in therapy to which he agrees. 12/19/2021: No changes to current treatment plan. Maintain CIWA with Ativan for withdrawals. May consider increasing Abilify. Will review tomorrow Plan: Q15 min safety checks, CV CIWA + Ativan Taper GAbapentin restarted but at lower dose of 600mg TID; will consider whether not this is appropriate to continue post discharge Otherwise home meds were continued -consider increasing abilify for mood stability, AH. -consider restarting SSRI/ SNRI, as pt has hx of being stable on zoloft. ? Monitor response to medications. Monitor for safety in the milieu. Discharge on stabilization. Patient seen. Chart reviewed. Discussed with team. Obtain collateral contact info?as needed I spent minutes with the patient and/or on the patient floor today, greater than?50% of which was spent counseling/coordinating care. Reason for contiued inpatient stay Substantial Risk for: harm to self
[2021-12-19 18:00] VITALS: BP 145/78; PULSE 96; RESP 16; TEMP 36.6; O2SAT 100
[2021-12-19 21:00] LABS: Glucose, Whole Blood 147 mg/dL (60-115)
[2021-12-19] MEDS: Insulin Glargine,Hum.rec.anlog 100 UNIT/ML 10 ML VIAL 70 UNIT SUBCUT (21:00)
[2021-12-19] MEDS: traZODone HCL 50 MG TABLET 150 MG PO (21:01)
[2021-12-19] MEDS: QUEtiapine Fumarate 50 MG TABLET PO (21:02)
--- NOTE | 2021-12-19 21:07 | PC.NURSE ---
Pt's. 2100 dose of Lorazepam was held secondary to patient being over sedated. Pt. slept all day and has slept all evening. Up x1 to visit with father.
[2021-12-20 06:00] VITALS: BP 144/84; PULSE 62
[2021-12-20] MEDS: Omeprazole 20 MG CAPSULE.DR PO (06:25)
[2021-12-20 06:41] LABS: Glucose, Whole Blood 96 mg/dL (60-115)
[2021-12-20] MEDS: Buprenorphine/Naloxone 8/2 mg TAB.SUBL 1 TAB SUBLINGUAL ×2 (08:20→14:10)
[2021-12-20] MEDS: Multivitamin TABLET 1 TAB PO (08:20)
[2021-12-20] MEDS: buPROPion HCl XL 150 MG TAB.ER.24H 450 MG PO (08:20)
[2021-12-20] MEDS: Gabapentin 300 MG CAPSULE 600 MG PO ×3 (08:20→20:33)
[2021-12-20] MEDS: metFORMIN HCl 500 MG TABLET PO ×2 (08:20→17:21)
[2021-12-20] MEDS: LORazepam 1 MG TABLET PO ×4 (08:20→20:34)
[2021-12-20] MEDS: amLODIPine Besylate 10 MG TABLET PO (08:20)
[2021-12-20] MEDS: ARIPiprazole 5 MG TABLET PO (08:20)
[2021-12-20] MEDS: Nicotine 21 MG PATCH.TD24 TRANSDERMA (08:25)
[2021-12-20 12:09] LABS: Glucose, Whole Blood 88 mg/dL (60-115)
--- NOTE | 2021-12-20 16:22 | P.PNPSI_ITS ---
Subjective Subjective Date of Service: 12/20/21 Reason For Visit: Depression w psychosis, polysubstance abuse Interim History: Met with patient. Discussed with Nursing. Feels worrse than yesterday. Poor sleep. AH. Depressed. Frustrated ref mental state. Still endorses alcohol withdrawal symptoms- is on CIWA. Agreed to increasing Seroquel at bedtime for sleep, psychosis and mood Medication Compliance: Yes Side effects from medications: No Attending Groups: No Review of Systems Acute medical concerns: No Review of Systems Review of Systems Withdrawal symptoms improving Mental Status Exam Mental Status Exam Narrative: Engaged. Hospital clothing. Self-care fair. Still endorses depression and intermittent SI but no plans. Auditory hallucinations non command. Insight judgment fair Diagnostics Vital Signs (24Hr): Vital Signs - 24 hr 12/19/21 18:00 12/20/21 06:00 Temperature 98 F Pulse Rate 96 62 Respiratory Rate 16 Blood Pressure 145/78 H 144/84 H Pulse Oximetry 100 Oxygen Delivery Method Room Air BMI result Body Mass Index 22.4 Labs Results: 12/16/21 11:56 12/16/21 11:56 Labs: Laboratory Results - last 48 hr 12/18/21 12/18/21 12/19/21 17:18 20:58 08:33 POC Glucose 69 128 H 120 H 12/19/21 12/19/21 12/20/21 12:36 20:56 06:34 POC Glucose 99 147 H 96 12/20/21 12:05 POC Glucose 88 Medications Medications Current Medications Acetaminophen (Acetaminophen 325 Mg Tablet) 650 mg PO Q6H PRN PRN Reason: Headache/Pain Mild Scale (1-3) Al Hydroxide/Mg Hydroxide (Magnesium Hydrox/Alum Hydrox 30 Ml Oral.Susp) 30 ml PO Q6H PRN PRN Reason: Heartburn/Nausea Amlodipine Besylate (Amlodipine Besylate 10 Mg Tablet) 10 mg PO DAILY [facility]; Protocol Last Admin: 12/20/21 08:20 Dose: 10 mg Aripiprazole (Aripiprazole 5 Mg Tablet) 5 mg PO DAILY [facility] Last Admin: 12/20/21 08:20 Dose: 5 mg Buprenorphine/Naloxone (Buprenorphine/Naloxone 8/2 Mg Tab.Subl) 1 tab SUBLINGUAL TID [facility] Last Admin: 12/20/21 14:10 Dose: 1 tab Bupropion HCl (Bupropion Hcl Xl 150 Mg Tab.Er.24h) 450 mg PO DAILY [facility] Last Admin: 12/20/21 08:20 Dose: 450 mg Cefuroxime Axetil (Cefuroxime Axetil 250 Mg Tablet) 250 mg PO BID [facility] Last Admin: 12/20/21 08:20 Dose: 250 mg Clonidine HCl (Clonidine Hcl 0.1 Mg Tablet) 0.1 mg PO TID PRN; Protocol PRN Reason: hyperarousal, withdrawal, anxiety Docusate Sodium (Docusate Sodium 100 Mg Capsule) 100 mg PO BID PRN PRN Reason: constipation Gabapentin (Gabapentin 300 Mg Capsule) 600 mg PO TID [facility] Last Admin: 12/20/21 14:10 Dose: 600 mg Hydroxyzine HCl (Hydroxyzine Hcl 50 Mg Tablet) 50 mg PO Q6H PRN PRN Reason: Anxiety Ibuprofen (Ibuprofen 400 Mg Tablet) 400 mg PO Q6H PRN PRN Reason: mod pain Last Admin: 12/18/21 11:10 Dose: 400 mg Insulin Glargine (Insulin Glargine,Hum.Rec.Anlog 100 Unit/Ml 10 Ml Vial) 70 unit SUBCUT BEDTIME [facility] Last Admin: 12/19/21 21:00 Dose: 70 unit Insulin Human Lispro (Insulin Lispro 100 Unit/Ml 3 Ml Vial) 0 unit SUBCUT QIDACHS [facility]; Protocol Last Admin: 12/20/21 12:12 Dose: Not Given Lorazepam (Lorazepam 1 Mg Tablet) 1 mg PO TID [facility] Stop: 12/20/21 23:59 Last Admin: 12/20/21 14:10 Dose: 1 mg Lorazepam (Lorazepam 1 Mg Tablet) 2 mg PO Q2H PRN PRN Reason: CIWA=>13 Lorazepam (Lorazepam 1 Mg Tablet) 1 mg PO Q2H PRN PRN Reason: CIWA 6-12 Lorazepam (Lorazepam 1 Mg Tablet) 1 mg PO BID [facility] Magnesium Hydroxide (Milk Of Magnesia 30 Ml Oral.Susp) 30 ml PO DAILY PRN PRN Reason: Constipation Metformin HCl (Metformin Hcl 500 Mg Tablet) 500 mg PO BIDWM [facility] Last Admin: 12/20/21 08:20 Dose: 500 mg Multivitamins/Vitamin C (Multivitamin Tablet) 1 tab PO DAILY [facility] Last Admin: 12/20/21 08:20 Dose: 1 tab Nicotine (Nicotine 21 Mg Patch.Td24) 21 mg TRANSDERMA DAILY [facility] Last Admin: 12/20/21 08:25 Dose: 21 mg Omeprazole (Omeprazole 20 Mg Capsule.Dr) 20 mg PO DAILY@0630 [facility] Last Admin: 12/20/21 06:25 Dose: 20 mg Quetiapine Fumarate (Quetiapine Fumarate 50 Mg Tablet) 50 mg PO BEDTIME [facility] Last Admin: 12/19/21 21:02 Dose: 50 mg Trazodone HCl (Trazodone Hcl 50 Mg Tablet) 150 mg PO BEDTIME [facility] Last Admin: 12/19/21 21:01 Dose: 150 mg Allergies Allergies Allergy/AdvReac Type Severity Reaction Status Date / Time levofloxacin [From Levaquin] Allergy Intermediate rash Verified 11/21/20 20:44 Assessment & Plan Assessment & Plan (1) MDD (major depressive disorder), recurrent, severe, with psychosis: Status: Acute Code(s): F33.3 - Major depressive disorder, recurrent, severe with psychotic symptoms (2) Opioid use disorder: Status: Acute Code(s): F11.99 - Opioid use, unspecified with unspecified opioid-induced disorder (3) Stimulant use disorder: Status: Acute Code(s): F15.90 - Other stimulant use, unspecified, uncomplicated Plan Sukhwinder is a 46 y.o. Male who carries a dx of polysubstance abuse, MDD recurrent with psychotic features. He presented to [facility] on 12/16/2021 due SI with plan to stab himself, depression, and CAH telling him he should kill himself, poor sleep/ appetite. Precipitating factors include relapse on substances with daily opiate abuse, med non-adherence x 2 weeks, and chronic homelessness. Hx of multiple detox and inpatient admissions, hx of not following through with outpatient referrals. Last admitted to [facility] M[facility] in 11/2020. Utox positive for opi ates, fentanyl, cocaine, amphetamines, and cannabis. 12/18 depressed, intermittent SI; AH subsiding. In withdrawal and on CIWA. For right now patient agrees to leave medication doses where they are, specifically Wellbutrin and Abilify and to reassess once he is through withdrawal. Tour Sales Representative discussed with patient that symptom reduction is only consistently possible if patient pursue sobriety and engages in therapy to which he agrees. 12/19/2021: No changes to current treatment plan. Maintain CIWA with Ativan for withdrawals. May consider increasing Abilify. Will review tomorrow 12/20/21: increase seroquel to 200mg as very poor sleep and patient preferred night meds increased versus abilify Plan: Q15 min safety checks, CV CIWA + Ativan Taper GAbapentin restarted but at lower dose of 600mg TID; will consider whether not this is appropriate to continue post discharge Otherwise home meds were continued -consider increasing abilify for mood stability, AH. -consider restarting SSRI/ SNRI, as pt has hx of being stable on zoloft. ? Monitor response to medications. Monitor for safety in the milieu. Discharge on stabilization. Patient seen. Chart reviewed. Discussed with team. Obtain collateral contact info?as needed I spent minutes with the patient and/or on the patient floor today, greater than?50% of which was spent counseling/coordinating care. Reason for contiued inpatient stay Substantial Risk for: harm to self
[2021-12-20 17:13] LABS: Glucose, Whole Blood 155 mg/dL (60-115)
[2021-12-20] MEDS: Insulin Lispro 100 UNIT/ML 3 ML VIAL SUBCUT (17:21)
[2021-12-20 18:00] VITALS: BP 141/86; PULSE 87; RESP 18; TEMP 37.2; O2SAT 98
[2021-12-20] MEDS: Buprenorphine/Naloxone 8/2 mg FILM 1 FILM SUBLINGUAL (20:31)
[2021-12-20] MEDS: QUEtiapine Fumarate 200 MG TABLET PO (20:32)
[2021-12-20] MEDS: traZODone HCL 50 MG TABLET 150 MG PO (20:32)
[2021-12-20] MEDS: Insulin Glargine,Hum.rec.anlog 100 UNIT/ML 10 ML VIAL 70 UNIT SUBCUT (20:35)
[2021-12-20 21:30] LABS: Glucose, Whole Blood 125 mg/dL (60-115)
[2021-12-21 06:00] VITALS: BP 122/77; PULSE 75; RESP 18; O2SAT 98
[2021-12-21] MEDS: Omeprazole 20 MG CAPSULE.DR PO (06:40)
[2021-12-21 06:54] LABS: Glucose, Whole Blood 76 mg/dL (60-115)
[2021-12-21] MEDS: ARIPiprazole 5 MG TABLET PO ×2 (08:30→10:32)
[2021-12-21] MEDS: buPROPion HCl XL 150 MG TAB.ER.24H 450 MG PO (08:30)
[2021-12-21] MEDS: Gabapentin 300 MG CAPSULE 600 MG PO ×2 (08:30→22:54)
[2021-12-21] MEDS: LORazepam 1 MG TABLET PO ×2 (08:30→22:36)
[2021-12-21] MEDS: Buprenorphine/Naloxone 8/2 mg FILM 1 FILM SUBLINGUAL ×3 (08:30→22:36)
[2021-12-21] MEDS: Multivitamin TABLET 1 TAB PO (08:30)
[2021-12-21] MEDS: Nicotine 21 MG PATCH.TD24 TRANSDERMA (08:31)
[2021-12-21] MEDS: amLODIPine Besylate 10 MG TABLET PO (08:31)
[2021-12-21] MEDS: metFORMIN HCl 500 MG TABLET PO ×2 (08:31→18:17)
--- NOTE | 2021-12-21 10:33 | HO.PSYCHPN ---
Subjective Subjective Date of Service: 12/21/21 Reason For Visit: Depression w psychosis, polysubstance abuse Interim History: Patient said mood is a little better but still has some intermittent, passive SI which is chronic. Carry Out Clerk had lowered gabapentin since he had been off it for couple weeks; patient said that he needs this medication for his chronic neuropathy. Carry Out Clerk discussed risks of this medication including risks of combining it with substance abuse. Patient said that he has been on this medication for decades and has never had a problem and that he needs it. He said whether he goes to a program or other goes back to the streets he will still need this medication; pain is a trigger for patient to use. Mental Status Exam Mental Status Exam Narrative: Pt is alert and oriented; behavior is cooperative, calm; patient is not in distress; dressed in casual attire, scruffy but adequate hygiene; mood is described as little better and affect constricted; eye contact a little avoidant; Speech is normal rate but a little soft in volume; normal prosody and not pressured; some psychomotor retardation present; thought process is organized and goal directed; Thought content is on tx; otherwise pertinent to relevant topics and without any delusional content, paranoid ideations or grandiosity; intermittent passive sI; no HI. No AVH; Patients insight and judgment appear intact. Diagnostics Vital Signs (24Hr): Vital Signs - 24 hr 12/20/21 18:00 12/21/21 06:00 Temperature 99.0 F Pulse Rate 87 75 Respiratory Rate 18 18 Blood Pressure 141/86 H 122/77 Pulse Oximetry 98 98 Oxygen Delivery Method Room Air Room Air BMI result Body Mass Index 22.4 Labs Results: 12/16/21 11:56 12/16/21 11:56 Labs: Laboratory Results - last 48 hr 12/19/21 12/19/21 12/20/21 12:36 20:56 06:34 POC Glucose 99 147 H 96 12/20/21 12/20/21 12/20/21 12:05 17:10 21:27 POC Glucose 88 155 H 125 H 12/21/21 06:46 POC Glucose 76 Medications Medications Current Medications Acetaminophen (Acetaminophen 325 Mg Tablet) 650 mg PO Q6H PRN PRN Reason: Headache/Pain Mild Scale (1-3) Al Hydroxide/Mg Hydroxide (Magnesium Hydrox/Alum Hydrox 30 Ml Oral.Susp) 30 ml PO Q6H PRN PRN Reason: Heartburn/Nausea Amlodipine Besylate (Amlodipine Besylate 10 Mg Tablet) 10 mg PO DAILY [facility]; Protocol Last Admin: 12/21/21 08:31 Dose: 10 mg Aripiprazole (Aripiprazole 10 Mg Tablet) 10 mg PO DAILY [facility] Buprenorphine/Naloxone (Buprenorphine/Naloxone 8/2 Mg Film) 1 film SUBLINGUAL TID [facility] Last Admin: 12/21/21 08:30 Dose: 1 film Bupropion HCl (Bupropion Hcl Xl 150 Mg Tab.Er.24h) 450 mg PO DAILY [facility] Last Admin: 12/21/21 08:30 Dose: 450 mg Cefuroxime Axetil (Cefuroxime Axetil 250 Mg Tablet) 250 mg PO BID [facility] Last Admin: 12/21/21 08:30 Dose: 250 mg Clonidine HCl (Clonidine Hcl 0.1 Mg Tablet) 0.1 mg PO TID PRN; Protocol PRN Reason: hyperarousal, withdrawal, anxiety Docusate Sodium (Docusate Sodium 100 Mg Capsule) 100 mg PO BID PRN PRN Reason: constipation Gabapentin (Gabapentin 300 Mg Capsule) 600 mg PO TID [facility] Last Admin: 12/21/21 08:30 Dose: 600 mg Hydroxyzine HCl (Hydroxyzine Hcl 50 Mg Tablet) 50 mg PO Q6H PRN PRN Reason: Anxiety Ibuprofen (Ibuprofen 400 Mg Tablet) 400 mg PO Q6H PRN PRN Reason: mod pain Last Admin: 12/18/21 11:10 Dose: 400 mg Insulin Glargine (Insulin Glargine,Hum.Rec.Anlog 100 Unit/Ml 10 Ml Vial) 70 unit SUBCUT BEDTIME [facility] Last Admin: 12/20/21 20:35 Dose: 70 unit Insulin Human Lispro (Insulin Lispro 100 Unit/Ml 3 Ml Vial) 0 unit SUBCUT QIDACHS [facility]; Protocol Last Admin: 12/21/21 08:02 Dose: Not Given Lorazepam (Lorazepam 1 Mg Tablet) 2 mg PO Q2H PRN PRN Reason: CIWA=>13 Lorazepam (Lorazepam 1 Mg Tablet) 1 mg PO Q2H PRN PRN Reason: CIWA 6-12 Last Admin: 12/20/21 20:32 Dose: 1 mg Lorazepam (Lorazepam 1 Mg Tablet) 1 mg PO BID [facility] Last Admin: 12/21/21 08:30 Dose: 1 mg Magnesium Hydroxide (Milk Of Magnesia 30 Ml Oral.Susp) 30 ml PO DAILY PRN PRN Reason: Constipation Metformin HCl (Metformin Hcl 500 Mg Tablet) 500 mg PO BIDWM [facility] Last Admin: 12/21/21 08:31 Dose: 500 mg Multivitamins/Vitamin C (Multivitamin Tablet) 1 tab PO DAILY [facility] Last Admin: 12/21/21 08:30 Dose: 1 tab Nicotine (Nicotine 21 Mg Patch.Td24) 21 mg TRANSDERMA DAILY [facility] Last Admin: 12/21/21 08:31 Dose: 21 mg Omeprazole (Omeprazole 20 Mg Capsule.Dr) 20 mg PO DAILY@0630 [facility] Last Admin: 12/21/21 06:40 Dose: 20 mg Quetiapine Fumarate (Quetiapine Fumarate 200 Mg Tablet) 200 mg PO BEDTIME [facility] Last Admin: 12/20/21 20:32 Dose: 200 mg Trazodone HCl (Trazodone Hcl 50 Mg Tablet) 150 mg PO BEDTIME [facility] Last Admin: 12/20/21 20:32 Dose: 150 mg Allergies Allergies Allergy/AdvReac Type Severity Reaction Status Date / Time levofloxacin [From Levaquin] Allergy Intermediate rash Verified 11/21/20 20:44 Assessment & Plan Assessment & Plan (1) MDD (major depressive disorder), recurrent, severe, with psychosis: Status: Acute Code(s): F33.3 - Major depressive disorder, recurrent, severe with psychotic symptoms (2) Opioid use disorder: Status: Acute Code(s): F11.99 - Opioid use, unspecified with unspecified opioid-induced disorder (3) Stimulant use disorder: Status: Acute Code(s): F15.90 - Other stimulant use, unspecified, uncomplicated Plan Sukhwinder is a 46 y.o. Male who carries a dx of polysubstance abuse, MDD recurrent with psychotic features. He presented to [facility] ED on 12/16/2021 due SI with plan to stab himself, depression, and CAH telling him he should kill himself, poor sleep/ appetite. Precipitating factors include relapse on substances with daily opiate abuse, med non-adherence x 2 weeks, and chronic homelessness. Hx of multiple detox and inpatient admissions, hx of not following through with outpatient referrals. Last admitted to [facility] M5 in 11/2020. Utox positive for opiates, fentanyl, cocaine, amphetamines, and cannabis. 12/18 depressed, intermittent SI; AH subsiding. In withdrawal and on CIWA. For right now patient agrees to leave medication doses where they are, specifically Wellbutrin and Abilify and to reassess once he is through withdrawal. Carry Out Clerk discussed with patient that symptom reduction is only consistently possible if patient pursue sobriety and engages in therapy to which he agrees. 12/19/2021: No changes to current treatment plan. Maintain CIWA with Ativan for withdrawals. May consider increasing Abilify. Will review tomorrow 12/20/21: increase seroquel to 200mg as very poor sleep and patient preferred night meds increased versus abilify 12/21 mood is a little better, SI diminished; has passive intermittent SI however this is chronic. Wants gabapentin put back to 600 t.i.d. saying that he needs this for neuropathy. Although this medication carries risks especially when combined with substance abuse, patient has been on this medication for years; lowering dose at this point increase his risk for worsened neuropathic pain which is a trigger for patient's relapse. At this time, junior underwriter considers the potential benefit outweighs the potential risk and agrees to increase gabapentin back to 600 mg; this is still a reduced dose from his past dosing at 100 mg t.i.d. Plan: Q15 min safety checks, CV DC Ciwa GAbapentin 600mg TID Abilify increased to 10mg Seroquel was increased to 200mg for insomnia Otherwise home meds were continued -consider increasing abilify for mood stability, AH. -consider restarting SSRI/ SNRI, as pt has hx of being stable on zoloft; however both Abilify and Seroquel were increased. Consistent stability requires sobriety and engagement with outpatient treatment, something patient has struggled to commit to; perhaps it is best at this time to not add another medication and avoid polypharmacy until patient is able/willing to engage with outpatient treatment Monitor response to medications. Monitor for safety in the milieu. Discharge on stabilization. Patient seen. Chart reviewed. Discussed with team. Obtain collateral contact info?as needed I spent minutes with the patient and/or on the patient floor today, greater than?50% of which was spent counseling/coordinating care. Patient educated on: diagnosis, medication risk/benefits and substance abuse Informed Consent: understands Reason for contiued inpatient stay Substantial Risk for: med/psych decompensation
[2021-12-21 12:11] LABS: Glucose, Whole Blood 121 mg/dL (60-115)
[2021-12-21] MEDS: Gabapentin 300 MG CAPSULE PO (14:06)
[2021-12-21] MEDS: Insulin Lispro 100 UNIT/ML 3 ML VIAL SUBCUT ×2 (18:18→22:38)
[2021-12-21 19:33] LABS: Glucose, Whole Blood 166 mg/dL (60-115)
[2021-12-21 22:20] VITALS: BP 133/79; PULSE 88; TEMP 36.6
[2021-12-21 22:23] LABS: Glucose, Whole Blood 224 mg/dL (60-115)
[2021-12-21] MEDS: QUEtiapine Fumarate 200 MG TABLET PO (22:36)
[2021-12-21] MEDS: traZODone HCL 50 MG TABLET 150 MG PO (22:37)
[2021-12-21] MEDS: Insulin Glargine,Hum.rec.anlog 100 UNIT/ML 10 ML VIAL 70 UNIT SUBCUT (22:39)
[2021-12-21] MEDS: Ibuprofen 400 MG TABLET PO (22:59)
[2021-12-22 09:00] VITALS: BP 134/79; PULSE 83; O2SAT 95
[2021-12-22] MEDS: Gabapentin 300 MG CAPSULE 600 MG PO ×3 (09:06→20:53)
[2021-12-22] MEDS: Multivitamin TABLET 1 TAB PO (09:07)
[2021-12-22] MEDS: buPROPion HCl XL 150 MG TAB.ER.24H 450 MG PO (09:08)
[2021-12-22] MEDS: amLODIPine Besylate 10 MG TABLET PO (09:09)
[2021-12-22] MEDS: metFORMIN HCl 500 MG TABLET PO ×2 (09:10→17:35)
[2021-12-22] MEDS: Omeprazole 20 MG CAPSULE.DR PO (09:10)
[2021-12-22] MEDS: ARIPiprazole 10 MG TABLET PO (09:11)
[2021-12-22] MEDS: LORazepam 1 MG TABLET PO (09:12)
[2021-12-22] MEDS: Nicotine 21 MG PATCH.TD24 TRANSDERMA (09:16)
[2021-12-22] MEDS: Buprenorphine/Naloxone 8/2 mg FILM 1 FILM SUBLINGUAL ×3 (09:28→20:52)
[2021-12-22 12:13] LABS: Glucose, Whole Blood 72 mg/dL (60-115)
[2021-12-22 12:13] LABS: Glucose, Whole Blood 86 mg/dL (60-115)
--- NOTE | 2021-12-22 13:44 | P.PNPSI_ITS ---
Subjective Subjective Date of Service: 12/22/21 Reason For Visit: Depression w psychosis, polysubstance abuse Interim History: Late entry for patient seen on 12/22 Patient reports that his mood is better, and says he is all right. No SI. He is grateful for increase in gabapentin. Also feels that Abilify increase is likely helping. Patient hopes to get into a program and is waiting to hear from social Work. Understands that this may be difficult at this time and that he may end up going back to a half-way. Mental Status Exam Mental Status Exam Narrative: Pt is alert and oriented; behavior is cooperative, calm; patient is not in distress; dressed in casual attire, scruffy but adequate hygiene; mood is described as alright and affect congruent, more calm; eye contact a little avoidant but adequate; Speech is normal rate but a little soft in volume; normal prosody and not pressured; some psychomotor retardation present; thought process is organized and goal directed; Thought content is on tx, post discharge plans, wanting to get into a substance abuse program; otherwise pertinent to relevant topics and without any delusional content, paranoid ideations or grandiosity; no SI; no HI. No AVH; Patients insight and judgment appear intact. Diagnostics Vital Signs (24Hr): Vital Signs - 24 hr 12/22/21 09:00 12/22/21 18:00 Temperature 97.5 F Pulse Rate 83 87 Respiratory Rate 16 Blood Pressure 134/79 135/83 Pulse Oximetry 95 97 Oxygen Delivery Method Room Air Room Air BMI result Body Mass Index 22.4 Labs Results: 12/16/21 11:56 12/16/21 11:56 Labs: Laboratory Results - last 48 hr 12/21/21 12/21/21 12/21/21 12:07 18:02 22:17 POC Glucose 121 H 166 H 224 H 12/22/21 12/22/21 12/22/21 09:07 12:08 16:03 POC Glucose 86 72 94 12/22/21 21:08 POC Glucose 159 H Medications Medications Current Medications Acetaminophen (Acetaminophen 325 Mg Tablet) 650 mg PO Q6H PRN PRN Reason: Headache/Pain Mild Scale (1-3) Al Hydroxide/Mg Hydroxide (Magnesium Hydrox/Alum Hydrox 30 Ml Oral.Susp) 30 ml PO Q6H PRN PRN Reason: Heartburn/Nausea Amlodipine Besylate (Amlodipine Besylate 10 Mg Tablet) 10 mg PO DAILY [facility]; Protocol Last Admin: 12/22/21 09:09 Dose: 10 mg Aripiprazole (Aripiprazole 10 Mg Tablet) 10 mg PO DAILY [facility] Last Admin: 12/22/21 09:11 Dose: 10 mg Buprenorphine/Naloxone (Buprenorphine/Naloxone 8/2 Mg Film) 1 film SUBLINGUAL TID [facility] Last Admin: 12/22/21 20:52 Dose: 1 film Bupropion HCl (Bupropion Hcl Xl 150 Mg Tab.Er.24h) 450 mg PO DAILY [facility] Last Admin: 12/22/21 09:08 Dose: 450 mg Cefuroxime Axetil (Cefuroxime Axetil 250 Mg Tablet) 250 mg PO BID [facility] Last Admin: 12/22/21 20:52 Dose: 250 mg Clonidine HCl (Clonidine Hcl 0.1 Mg Tablet) 0.1 mg PO TID PRN; Protocol PRN Reason: hyperarousal, withdrawal, anxiety Docusate Sodium (Docusate Sodium 100 Mg Capsule) 100 mg PO BID PRN PRN Reason: constipation Gabapentin (Gabapentin 300 Mg Capsule) 600 mg PO TID [facility] Last Admin: 12/22/21 20:53 Dose: 600 mg Hydroxyzine HCl (Hydroxyzine Hcl 50 Mg Tablet) 50 mg PO Q6H PRN PRN Reason: Anxiety Ibuprofen (Ibuprofen 400 Mg Tablet) 400 mg PO Q6H PRN PRN Reason: mod pain Last Admin: 12/21/21 22:59 Dose: 400 mg Insulin Glargine (Insulin Glargine,Hum.Rec.Anlog 100 Unit/Ml 10 Ml Vial) 70 unit SUBCUT BEDTIME [facility] Last Admin: 12/22/21 20:54 Dose: 70 unit Insulin Human Lispro (Insulin Lispro 100 Unit/Ml 3 Ml Vial) 0 unit SUBCUT QIDACHS [facility]; Protocol Last Admin: 12/22/21 21:16 Dose: 2 unit Magnesium Hydroxide (Milk Of Magnesia 30 Ml Oral.Susp) 30 ml PO DAILY PRN PRN Reason: Constipation Metformin HCl (Metformin Hcl 500 Mg Tablet) 500 mg PO BIDWM [facility] Last Admin: 12/22/21 17:35 Dose: 500 mg Multivitamins/Vitamin C (Multivitamin Tablet) 1 tab PO DAILY [facility] Last Admin: 12/22/21 09:07 Dose: 1 tab Nicotine (Nicotine 21 Mg Patch.Td24) 21 mg TRANSDERMA DAILY [facility] Last Admin: 12/22/21 09:16 Dose: 21 mg Omeprazole (Omeprazole 20 Mg Capsule.) 20 mg PO DAILY@0630 [facility] Last Admin: 12/22/21 09:10 Dose: 20 mg Quetiapine Fumarate (Quetiapine Fumarate 200 Mg Tablet) 200 mg PO BEDTIME [facility] Last Admin: 12/22/21 20:53 Dose: 200 mg Trazodone HCl (Trazodone Hcl 50 Mg Tablet) 150 mg PO BEDTIME [facility] Last Admin: 12/22/21 20:52 Dose: 150 mg Allergies Allergies Allergy/AdvReac Type Severity Reaction Status Date / Time levofloxacin [From Levaquin] Allergy Intermediate rash Verified 11/21/20 20:44 Assessment & Plan Assessment & Plan (1) MDD (major depressive disorder), recurrent, severe, with psychosis: Status: Acute Code(s): F33.3 - Major depressive disorder, recurrent, severe with psychotic symptoms (2) Opioid use disorder: Status: Acute Code(s): F11.99 - Opioid use, unspecified with unspecified opioid-induced disorder (3) Stimulant use disorder: Status: Acute Code(s): F15.90 - Other stimulant use, unspecified, uncomplicated Plan Sukhwinder is a 46 y.o. Male who carries a dx of polysubstance abuse, MDD recurrent with psychotic features. He presented to [facility] ED on 12/16/2021 due SI with plan to stab himself, depression, and CAH telling him he should kill himself, poor sleep/ appetite. Precipitating factors include relapse on substances with daily opiate abuse, med non-adherence x 2 weeks, and chronic homelessness. Hx of multiple detox and inpatient admissions, hx of not following through with outpatient referrals. Last admitted to [facility] M5 in 11/2020. Utox positive for opiates, fentanyl, cocaine, amphetamines, and cannabis. 12/18 depressed, intermittent SI; AH subsiding. In withdrawal and on CIWA. For right now patient agrees to leave medication doses where they are, specifically Wellbutrin and Abilify and to reassess once he is through withdrawal. Parking Analyst discussed with patient that symptom reduction is only consistently possible if patient pursue sobriety and engages in therapy to which he agrees. 12/19/2021: No changes to current treatment plan. Maintain CIWA with Ativan for withdrawals. May consider increasing Abilify. Will review tomorrow 12/20/21: increase seroquel to 200mg as very poor sleep and patient preferred n ight meds increased versus abilify 12/21 mood is a little better, SI diminished; has passive intermittent SI however this is chronic. Wants gabapentin put back to 600 t.i.d. saying that he needs this for neuropathy. Although this medication carries risks especially when combined with substance abuse, patient has been on this medication for years; lowering dose at this point increase his risk for worsened neuropathic pain which is a trigger for patient's relapse. At this time, check writer considers the potential benefit outweighs the potential risk and agrees to increase gabapentin back to 600 mg; this is still a reduced dose from his past dosing at 100 mg t.i.d. 12/22 patient reports mood is better still; still depressed but no SI. Hoping to get into a substance abuse treatment program but understands this may not be available and he'll and of going to a half-way. Patient is close to or at baseline. Plan: Q15 min safety checks, CV DC Ciwa GAbapentin 600mg TID Abilify increased to 10mg Seroquel was increased to 200mg for insomnia Otherwise home meds were continued -consider restarting SSRI/ SNRI, as pt has hx of being stable on zoloft; however both Abilify and Seroquel were increased. Consistent stability requires sobriety and engagement with outpatient treatment, something patient has struggled to commit to; perhaps it is best at this time to not add another medication and avoid polypharmacy until patient is able/willing to engage with outpatient treatment Monitor response to medications. Monitor for safety in the milieu. Discharge on stabilization. Patient seen. Chart reviewed. Discussed with team. Obtain collateral contact info?as needed I spent minutes with the patient and/or on the patient floor today, greater than?50% of which was spent counseling/coordinating care. Patient educated on: diagnosis, substance abuse and therapeutic strategies Informed Consent: understands Reason for contiued inpatient stay Substantial Risk for: stable for discharge
[2021-12-22 16:07] LABS: Glucose, Whole Blood 94 mg/dL (60-115)
[2021-12-22 18:00] VITALS: BP 135/83; PULSE 87; RESP 16; TEMP 36.4; O2SAT 97
[2021-12-22] MEDS: traZODone HCL 50 MG TABLET 150 MG PO (20:52)
[2021-12-22] MEDS: QUEtiapine Fumarate 200 MG TABLET PO (20:53)
[2021-12-22] MEDS: Insulin Glargine,Hum.rec.anlog 100 UNIT/ML 10 ML VIAL 70 UNIT SUBCUT (20:54)
[2021-12-22 21:13] LABS: Glucose, Whole Blood 159 mg/dL (60-115)
[2021-12-22] MEDS: Insulin Lispro 100 UNIT/ML 3 ML VIAL SUBCUT (21:16)
--- NOTE | 2021-12-23 08:49 | P.PNPSI_ITS ---
Subjective Subjective Date of Service: 12/23/21 Reason For Visit: Depression w psychosis, polysubstance abuse Interim History: Patient says that he is all right... So-so but that he is doing better; regarding suicidality patient says he always has intermittent, passive thoughts, but denies any intention or plans and says this is typical for him. Patient says AH is much quieter, not bothersome; he says he has gotten it down to a Science on how to ignore them. Discussed medication to address some of these issues and patient does not want any medications changed. He is eager for a program, saying he wants to change his life. He very much wants to get out of the area and away from people around here. Mental Status Exam Mental Status Exam Narrative: Pt is alert and oriented; behavior is cooperative, calm; patient is not in distress; dressed in casual attire, scruffy but adequate hygiene; mood is described as alright...so-so and affect congruent, calm; eye contact adequate; Speech is normal rate but a little soft in volume; normal prosody and not pressured; no psychomotor retardation; thought process is organized and goal directed; Thought content is on tx, post discharge plans, wanting to get into a substance abuse program; otherwise pertinent to relevant topics and without any delusional content, paranoid ideations or grandiosity; intermittent, passive SI (chronic), no plans/intention; no HI. minimal, intermittent AH, able to ignore. Patients insight and judgment are fair. Diagnostics Vital Signs (24Hr): Vital Signs - 24 hr 12/22/21 09:00 12/22/21 18:00 Temperature 97.5 F Pulse Rate 83 87 Respiratory Rate 16 Blood Pressure 134/79 135/83 Pulse Oximetry 95 97 Oxygen Delivery Method Room Air Room Air BMI result Body Mass Index 22.4 Labs Results: 12/16/21 11:56 12/23/21 08:19 Labs: Laboratory Results - last 48 hr 12/21/21 12/21/21 12/21/21 12:07 18:02 22:17 POC Glucose 121 H 166 H 224 H 12/22/21 12/22/21 12/22/21 09:07 12:08 16:03 POC Glucose 86 72 94 12/22/21 21:08 POC Glucose 159 H Medications Medications Current Medications Acetaminophen (Acetaminophen 325 Mg Tablet) 650 mg PO Q6H PRN PRN Reason: Headache/Pain Mild Scale (1-3) Al Hydroxide/Mg Hydroxide (Magnesium Hydrox/Alum Hydrox 30 Ml Oral.Susp) 30 ml PO Q6H PRN PRN Reason: Heartburn/Nausea Amlodipine Besylate (Amlodipine Besylate 10 Mg Tablet) 10 mg PO DAILY [facility]; Protocol Last Admin: 12/22/21 09:09 Dose: 10 mg Aripiprazole (Aripiprazole 10 Mg Tablet) 10 mg PO DAILY [facility] Last Admin: 12/22/21 09:11 Dose: 10 mg Buprenorphine/Naloxone (Buprenorphine/Naloxone 8/2 Mg Film) 1 film SUBLINGUAL TID [facility] Last Admin: 12/22/21 20:52 Dose: 1 film Bupropion HCl (Bupropion Hcl Xl 150 Mg Tab.Er.24h) 450 mg PO DAILY [facility] Last Admin: 12/22/21 09:08 Dose: 450 mg Cefuroxime Axetil (Cefuroxime Axetil 250 Mg Tablet) 250 mg PO BID [facility] Last Admin: 12/22/21 20:52 Dose: 250 mg Clonidine HCl (Clonidine Hcl 0.1 Mg Tablet) 0.1 mg PO TID PRN; Protocol PRN Reason: hyperarousal, withdrawal, anxiety Docusate Sodium (Docusate Sodium 100 Mg Capsule) 100 mg PO BID PRN PRN Reason: constipation Gabapentin (Gabapentin 300 Mg Capsule) 600 mg PO TID [facility] Last Admin: 12/22/21 20:53 Dose: 600 mg Hydroxyzine HCl (Hydroxyzine Hcl 50 Mg Tablet) 50 mg PO Q6H PRN PRN Reason: Anxiety Ibuprofen (Ibuprofen 400 Mg Tablet) 400 mg PO Q6H PRN PRN Reason: mod pain Last Admin: 12/21/21 22:59 Dose: 400 mg Insulin Glargine (Insulin Glargine,Hum.Rec.Anlog 100 Unit/Ml 10 Ml Vial) 70 unit SUBCUT BEDTIME [facility] Last Admin: 12/22/21 20:54 Dose: 70 unit Insulin Human Lispro (Insulin Lispro 100 Unit/Ml 3 Ml Vial) 0 unit SUBCUT Q IDACHS [facility]; Protocol Last Admin: 12/22/21 21:16 Dose: 2 unit Magnesium Hydroxide (Milk Of Magnesia 30 Ml Oral.Susp) 30 ml PO DAILY PRN PRN Reason: Constipation Metformin HCl (Metformin Hcl 500 Mg Tablet) 500 mg PO BIDWM [facility] Last Admin: 12/22/21 17:35 Dose: 500 mg Multivitamins/Vitamin C (Multivitamin Tablet) 1 tab PO DAILY [facility] Last Admin: 12/22/21 09:07 Dose: 1 tab Nicotine (Nicotine 21 Mg Patch.Td24) 21 mg TRANSDERMA DAILY [facility] Last Admin: 12/22/21 09:16 Dose: 21 mg Omeprazole (Omeprazole 20 Mg Capsule.Dr) 20 mg PO DAILY@0630 [facility] Last Admin: 12/22/21 09:10 Dose: 20 mg Quetiapine Fumarate (Quetiapine Fumarate 200 Mg Tablet) 200 mg PO BEDTIME [facility] Last Admin: 12/22/21 20:53 Dose: 200 mg Trazodone HCl (Trazodone Hcl 50 Mg Tablet) 150 mg PO BEDTIME [facility] Last Admin: 12/22/21 20:52 Dose: 150 mg Allergies Allergies Allergy/AdvReac Type Severity Reaction Status Date / Time levofloxacin [From Levaquin] Allergy Intermediate rash Verified 11/21/20 20:44 Assessment & Plan Assessment & Plan (1) MDD (major depressive disorder), recurrent, severe, with psychosis: Status: Acute Code(s): F33.3 - Major depressive disorder, recurrent, severe with psychotic symptoms (2) Opioid use disorder: Status: Acute Code(s): F11.99 - Opioid use, unspecified with unspecified opioid-induced disorder (3) Stimulant use disorder: Status: Acute Code(s): F15.90 - Other stimulant use, unspecified, uncomplicated Plan Sukhwinder is a 46 y.o. Male who carries a dx of polysubstance abuse, MDD recurrent with psychotic features. He presented to [facility] ED on 12/16/2021 due SI with plan t o stab himself, depression, and CAH telling him he should kill himself, poor sleep/ appetite. Precipitating factors include relapse on substances with daily opiate abuse, med non-adherence x 2 weeks, and chronic homelessness. Hx of multiple detox and inpatient admissions, hx of not following through with outpatient referrals. Last admitted to [facility] M5 in 11/2020. Utox positive for opiates, fentanyl, cocaine, amphetamines, and cannabis. 12/18 depressed, intermittent SI; AH subsiding. In withdrawal and on CIWA. For right now patient agrees to leave medication doses where they are, specifically Wellbutrin and Abilify and to reassess once he is through withdrawal. Electrical Linesworker discussed with patient that symptom reduction is only consistently possible if patient pursue sobriety and engages in therapy to which he agrees. 12/19/2021: No changes to current treatment plan. Maintain CIWA with Ativan for withdrawals. May consider increasing Abilify. Will review tomorrow 12/20/21: increase seroquel to 200mg as very poor sleep and patient preferred night meds increased versus abilify 12/21 mood is a little better, SI diminished; has passive intermittent SI however this is chronic. Wants gabapentin put back to 600 t.i.d. saying that he needs this for neuropathy. Although this medication carries risks especially when combined with substance abuse, patient has been on this medication for years; l owering dose at this point increase his risk for worsened neuropathic pain which is a trigger for patient's relapse. At this time, grant writer considers the potential benefit outweighs the potential risk and agrees to increase gabapentin back to 600 mg; this is still a reduced dose from his past dosing at 100 mg t.i.d. 12/22 patient reports mood is better still; still depressed but no SI. Hoping to get into a substance abuse treatment program but understands this may not be available and he'll and of going [facility] a pen[facility]. Patient is close to or at baseline. 12/23 patient is polite and expressing gratitude for help received. He reports that he remains doing better; says has intermittent passive SI which he says is chronic and normal for him. AH is very minimal and able to be ignored. Still focused on getting into a program. Plan: Q15 min safety checks, CV GAbapentin 600mg TID Abilify increased to 10mg Seroquel was increased to 200mg for insomnia Otherwise home meds were continued -consider restarting SSRI/ SNRI, as pt has hx of being stable on zoloft; however both Abilify and Seroquel were increased. Consistent stability requires sobriety and engagement with outpatient treatment, something patient has struggled to commit to; perhaps it is best at this time to not add another me dication and avoid polypharmacy until patient is able/willing to engage with outpatient treatment Monitor response to medications. Monitor for safety in the milieu. Discharge on stabilization. Patient seen. Chart reviewed. Discussed with team. Obtain collateral contact info?as needed I spent minutes with the patient and/or on the patient floor today, greater than?50% of which was spent counseling/coordinating care. Patient educated on: diagnosis, medication risk/benefits and substance abuse Informed Consent: understands Reason for contiued inpatient stay Substantial Risk for: stable for discharge
[2021-12-23 08:50] LABS: Glucose, Whole Blood 109 mg/dL (60-115)
[2021-12-23] MEDS: amLODIPine Besylate 10 MG TABLET PO (08:55)
[2021-12-23] MEDS: Multivitamin TABLET 1 TAB PO (08:55)
[2021-12-23] MEDS: Nicotine 21 MG PATCH.TD24 TRANSDERMA (08:55)
[2021-12-23] MEDS: Omeprazole 20 MG CAPSULE.DR PO (08:55)
[2021-12-23] MEDS: Buprenorphine/Naloxone 8/2 mg FILM 1 FILM SUBLINGUAL ×3 (08:55→20:41)
[2021-12-23] MEDS: ARIPiprazole 10 MG TABLET PO (08:56)
[2021-12-23] MEDS: buPROPion HCl XL 150 MG TAB.ER.24H 450 MG PO (08:56)
[2021-12-23] MEDS: metFORMIN HCl 500 MG TABLET PO ×2 (08:56→17:45)
[2021-12-23] MEDS: Gabapentin 300 MG CAPSULE 600 MG PO ×3 (08:56→20:41)
[2021-12-23 09:02] VITALS: BP 132/83; PULSE 90; RESP 16; TEMP 36.7; O2SAT 98
[2021-12-23 09:42] LABS: Creatinine Clr Calc Pharmacy 155.7; Estimated Glomerular Filt Rate > 60
[2021-12-23 11:34] LABS: Glucose, Whole Blood 117 mg/dL (60-115)
--- NOTE | 2021-12-23 15:18 | MHC.CLN ---
NUTRITION PATIENT ASKED TO TALK WITH ME WHILE I WAS VISITING HIS ROOMMATE. REPORTS SIGNIFICANT WEIGHT LOSS AND WOULD LIKE GLUCERNA. HAD ORDER FOR ENSURE BID. CHANGED ORDER TO GLUCERNA TID. PROVIDES 710 KCALS, 30 G PROTEIN. REVIEW OF WEIGHT HX SHOWS SIGNIFICANT WEIGHT LOSS X 6 MONTHS OF -12.5%.
[2021-12-23 17:32] LABS: Glucose, Whole Blood 98 mg/dL (60-115)
[2021-12-23 20:05] VITALS: BP 109/59; PULSE 71; TEMP 36.4; O2SAT 98
[2021-12-23 20:16] LABS: Glucose, Whole Blood 98 mg/dL (60-115)
[2021-12-23] MEDS: traZODone HCL 50 MG TABLET 150 MG PO (20:40)
[2021-12-23] MEDS: QUEtiapine Fumarate 200 MG TABLET PO (20:41)
[2021-12-23] MEDS: Insulin Glargine,Hum.rec.anlog 100 UNIT/ML 10 ML VIAL 70 UNIT SUBCUT (20:46)
[2021-12-24 07:00] VITALS: BMI 23.2
[2021-12-24] MEDS: Buprenorphine/Naloxone 8/2 mg FILM 1 FILM SUBLINGUAL ×3 (08:21→20:31)
[2021-12-24] MEDS: metFORMIN HCl 500 MG TABLET PO ×2 (08:21→17:37)
[2021-12-24] MEDS: Nicotine 21 MG PATCH.TD24 TRANSDERMA (08:21)
[2021-12-24] MEDS: buPROPion HCl XL 150 MG TAB.ER.24H 450 MG PO (08:21)
[2021-12-24] MEDS: amLODIPine Besylate 10 MG TABLET PO (08:22)
[2021-12-24] MEDS: Omeprazole 20 MG CAPSULE.DR PO (08:22)
[2021-12-24] MEDS: Multivitamin TABLET 1 TAB PO (08:22)
[2021-12-24] MEDS: Gabapentin 300 MG CAPSULE 600 MG PO ×3 (08:22→20:30)
[2021-12-24] MEDS: ARIPiprazole 10 MG TABLET PO (08:22)
[2021-12-24 08:45] VITALS: BP 105/62; PULSE 56; RESP 18; TEMP 36.5; O2SAT 98
[2021-12-24 11:52] LABS: Glucose, Whole Blood 129 mg/dL (60-115)
[2021-12-24 11:52] LABS: Glucose, Whole Blood 83 mg/dL (60-115)
[2021-12-24] MEDS: Ibuprofen 400 MG TABLET PO ×2 (14:56→20:30)
--- NOTE | 2021-12-24 15:33 | HO.PSYCHPN ---
Subjective Subjective Date of Service: 12/24/21 Reason For Visit: Depression w psychosis, polysubstance abuse Interim History: Patient calm, polite, expressing gratitude. Says he is doing all right; no complaints, no requests. Still hoping to get into a program. Feels medications are adequate and does not want changes Mental Status Exam Mental Status Exam Narrative: Pt is alert and oriented; behavior is cooperative, calm; patient is not in distress; dressed in casual attire, scruffy but adequate hygiene; mood is described as alright...so-so and affect congruent, calm; eye contact adequate; Speech is normal rate but a little soft in volume; normal prosody and not pressured; no psychomotor retardation; thought process is organized and goal directed; Thought content is on tx, post discharge plans, wanting to get into a substance abuse program; otherwise pertinent to relevant topics and without any delusional content, paranoid ideations or grandiosity; intermittent, passive SI (chronic), no plans/intention; no HI. minimal, intermittent AH, able to ignore. Patients insight and judgment are fair. Diagnostics Vital Signs (24Hr): Vital Signs - 24 hr 12/23/21 20:05 12/24/21 08:45 Temperature 97.5 F 97.7 F Pulse Rate 71 56 Respiratory Rate 18 Blood Pressure 109/59 L 105/62 Pulse Oximetry 98 98 Oxygen Delivery Method Room Air Room Air BMI result Body Mass Index 23.2 Labs Results: 12/16/21 11:56 12/23/21 08:19 Labs: Laboratory Results - last 48 hr 12/22/21 12/22/21 12/23/21 16:03 21:08 08:19 Creatinine 0.66 Estim Creat Clear Calc 155.7 Estimated GFR > 60 POC Glucose 94 159 H 12/23/21 12/23/21 12/23/21 08:45 11:30 17:28 Creatinine Estim Creat Clear Calc Estimated GFR POC Glucose 109 117 H 98 12/23/21 12/24/21 12/24/21 20:12 08:23 11:48 Creatinine Estim Creat Clear Calc Estimated GFR POC Glucose 98 83 129 H Medications Medications Current Medications Acetaminophen (Acetaminophen 325 Mg Tablet) 650 mg PO Q6H PRN PRN Reason: Headache/Pain Mild Scale (1-3) Al Hydroxide/Mg Hydroxide (Magnesium Hydrox/Alum Hydrox 30 Ml Oral.Susp) 30 ml PO Q6H PRN PRN Reason: Heartburn/Nausea Amlodipine Besylate (Amlodipine Besylate 10 Mg Tablet) 10 mg PO DAILY [facility]; Protocol Last Admin: 12/24/21 08:22 Dose: 10 mg Aripiprazole (Aripiprazole 10 Mg Tablet) 10 mg PO DAILY [facility] Last Admin: 12/24/21 08:22 Dose: 10 mg Buprenorphine/Naloxone (Buprenorphine/Naloxone 8/2 Mg Film) 1 film SUBLINGUAL TID [facility] Last Admin: 12/24/21 14:52 Dose: 1 film Bupropion HCl (Bupropion Hcl Xl 150 Mg Tab.Er.24h) 450 mg PO DAILY [facility] Last Admin: 12/24/21 08:21 Dose: 450 mg Cefuroxime Axetil (Cefuroxime Axetil 250 Mg Tablet) 250 mg PO BID [facility] Last Admin: 12/24/21 08:22 Dose: 250 mg Clonidine HCl (Clonidine Hcl 0.1 Mg Tablet) 0.1 mg PO TID PRN; Protocol PRN Reason: hyperarousal, withdrawal, anxiety Docusate Sodium (Docusate Sodium 100 Mg Capsule) 100 mg PO BID PRN PRN Reason: constipation Gabapentin (Gabapentin 300 Mg Capsule) 600 mg PO TID [facility] Last Admin: 12/24/21 14:53 Dose: 600 mg Hydroxyzine HCl (Hydroxyzine Hcl 50 Mg Tablet) 50 mg PO Q6H PRN PRN Reason: Anxiety Ibuprofen (Ibuprofen 400 Mg Tablet) 400 mg PO Q6H PRN PRN Reason: mod pain Last Admin: 12/24/21 14:56 Dose: 400 mg Insulin Glargine (Insulin Glargine,Hum.Rec.Anlog 100 Unit/Ml 10 Ml Vial) 70 unit SUBCUT BEDTIME [facility] Last Admin: 12/23/21 20:46 Dose: 70 unit Insulin Human Lispro (Insulin Lispro 100 Unit/Ml 3 Ml Vial) 0 unit SUBCUT QIDACHS [facility]; Protocol Last Admin: 12/24/21 11:53 Dose: Not Given Magnesium Hydroxide (Milk Of Magnesia 30 Ml Oral.Susp) 30 ml PO DAILY PRN PRN Reason: Constipation Metformin HCl (Metformin Hcl 500 Mg Tablet) 500 mg PO BIDWM [facility] Last Admin: 12/24/21 08:21 Dose: 500 mg Multivitamins/Vitamin C (Multivitamin Tablet) 1 tab PO DAILY [facility] Last Admin: 12/24/21 08:22 Dose: 1 tab Nicotine (Nicotine 21 Mg Patch.Td24) 21 mg TRANSDERMA DAILY [facility] Last Admin: 12/24/21 08:21 Dose: 21 mg Omeprazole (Omeprazole 20 Mg Capsule.Dr) 20 mg PO DAILY@0630 [facility] Last Admin: 12/24/21 08:22 Dose: 20 mg Quetiapine Fumarate (Quetiapine Fumarate 200 Mg Tablet) 200 mg PO BEDTIME [facility] Last Admin: 12/23/21 20:41 Dose: 200 mg Trazodone HCl (Trazodone Hcl 50 Mg Tablet) 150 mg PO BEDTIME [facility] Last Admin: 12/23/21 20:40 Dose: 150 mg Allergies Allergies Allergy/AdvReac Type Severity Reaction Status Date / Time levofloxacin [From Levaquin] Allergy Intermediate rash Verified 11/21/20 20:44 Assessment & Plan Assessment & Plan (1) MDD (major depressive disorder), recurrent, severe, with psychosis: Status: Acute Code(s): F33.3 - Major depressive disorder, recurrent, severe with psychotic symptoms (2) Opioid use disorder: Status: Acute Code(s): F11.99 - Opioid use, unspecified with unspecified opioid-induced disorder (3) Stimulant use disorder: Status: Acute Code(s): F15.90 - Other stimulant use, unspecified, uncomplicated Plan Sukhwinder is a 46 y.o. Male who carries a dx of polysubstance abuse, MDD recurrent with psychotic features. He presented to [facility] on 12/16/2021 due SI with plan to stab himself, depression, and CAH telling him he should kill himself, poor sleep/ appetite. Precipitating factors include relapse on substances with daily opiate abuse, med non-adherence x 2 weeks, and chronic homelessness. Hx of multiple detox and inpatient admissions, hx of not following through with outpatient referrals. Last admitted to [facility] M[facility] in 11/2020. Utox positive for opiates, fentanyl, cocaine, amphetamines, and cannabis. 12/18 depressed, intermittent SI; AH subsiding. In withdrawal and on CIWA. For right now patient agrees to leave medication doses where they are, specifically Wellbutrin and Abilify and to reassess once he is through withdrawal. Stage Electrician discussed with patient that symptom reduction is only consistently possible if patient pursue sobriety and engages in therapy to which he agrees. 12/19/2021: No changes to current treatment plan. Maintain CIWA with Ativan for withdrawals. May consider increasing Abilify. Will review tomorrow 12/20/21: increase seroquel to 200mg as very poor sleep and patient preferred night meds increased versus abilify 12/21 mood is a little better, SI diminished; has passive intermittent SI however this is chronic. Wants gabapentin put back to 600 t.i.d. saying that he needs this for neuropathy. Although this medication carries risks especially when combined with substance abuse, patient has been on this medication for years; lowering dose at this point increase his risk for worsened neuropathic pain which is a trigger for patient's relapse. At this time, ad writer considers the potential benefit outweighs the potential risk and agrees to increase gabapentin back to 600 mg; this is still a reduced dose from his past dosing at 100 mg t.i.d. 12/22 patient reports mood is better still; still depressed but no SI. Hoping to get into a substance abuse treatment program but understands this may not be available and he'll and of going to a fpc. Patient is close to or at baseline. 12/23 patient is polite and expressing gratitude for help received.? He reports that he remains doing better; says has intermittent passive SI which he says is chronic and normal for him.? AH is very minimal and able to be ignored.? Still focused on getting into a program. 12/24, patient remains doing better and feels he is back to his regular self. Still focused on program Plan: Q15 min safety checks, CV GAbapentin 600mg TID Abilify increased to 10mg Seroquel was increased to 200mg for insomnia Otherwise home meds were continued -consider restarting SSRI/ SNRI, as pt has hx of being stable on zoloft; however both Abilify and Seroquel were increased. Consistent stability requires sobriety and engagement with outpatient treatment, something patient has struggled to commit to; perhaps it is best at this time to not add another medication and avoid polypharmacy until patient is able/willing to engage with outpatient treatment Monitor response to medications. Monitor for safety in the milieu. Discharge on stabilization. Patient seen. Chart reviewed. Discussed with team. Obtain collateral contact info?as needed I spent minutes with the patient and/or on the patient floor today, greater than?50% of which was spent counseling/coordinating care. Patient educated on: diagnosis and medication risk/benefits Informed Consent: understands Reason for contiued inpatient stay Substantial Risk for: stable for discharge
[2021-12-24 17:30] LABS: Glucose, Whole Blood 76 mg/dL (60-115)
[2021-12-24 19:45] VITALS: BP 139/90; PULSE 74; RESP 16; TEMP 35.9; O2SAT 99
[2021-12-24] MEDS: QUEtiapine Fumarate 200 MG TABLET PO (20:30)
[2021-12-24] MEDS: traZODone HCL 50 MG TABLET 150 MG PO (20:31)
[2021-12-24 20:43] LABS: Glucose, Whole Blood 88 mg/dL (60-115)
[2021-12-24] MEDS: Insulin Glargine,Hum.rec.anlog 100 UNIT/ML 10 ML VIAL 70 UNIT SUBCUT (20:55)
--- NOTE | 2021-12-24 21:54 | PC.NURSE ---
Pt initially refused scheduled Lantus 70units at . Discussed with pt his blood sugars have been really good and suggested he continue to adhere to the scheduled medication. Pt verbally expressed understanding and agreed. Lantus 70units at administered.
[2021-12-25] MEDS: Omeprazole 20 MG CAPSULE.DR PO (08:42)
[2021-12-25] MEDS: buPROPion HCl XL 150 MG TAB.ER.24H 450 MG PO (08:42)
[2021-12-25] MEDS: Gabapentin 300 MG CAPSULE 600 MG PO ×3 (08:42→19:51)
[2021-12-25] MEDS: Buprenorphine/Naloxone 8/2 mg FILM 1 FILM SUBLINGUAL ×3 (08:43→19:51)
[2021-12-25] MEDS: Multivitamin TABLET 1 TAB PO (08:43)
[2021-12-25] MEDS: amLODIPine Besylate 10 MG TABLET PO (08:43)
[2021-12-25] MEDS: ARIPiprazole 10 MG TABLET PO (08:43)
[2021-12-25] MEDS: Nicotine 21 MG PATCH.TD24 TRANSDERMA (08:43)
[2021-12-25] MEDS: metFORMIN HCl 500 MG TABLET PO ×2 (08:43→16:03)
[2021-12-25 09:01] LABS: Glucose, Whole Blood 69 mg/dL (60-115)
--- NOTE | 2021-12-25 09:10 | P.PNPSI_ITS ---
Subjective Subjective Date of Service: 12/25/21 Reason For Visit: Depression w psychosis, polysubstance abuse Interim History: pt reports he's alright. Intermittent, chronic SI that's passive and ignorable. Pt says he does not want to be on diabetic diet; this is not how he eats in the community and wants regular diet. Discussed and pt understands risks; otherwise no complaints. Mental Status Exam Mental Status Exam Narrative: Pt is alert and oriented; behavior is cooperative, calm; patient is not in distress; dressed in casual attire, scruffy but adequate hygiene; mood is described as alright...so-so and affect congruent, calm; eye contact adequate; Speech is normal rate but a little soft in volume; normal prosody and not pressured; no psychomotor retardation; thought process is organized and goal directed; Thought content is on tx, post discharge plans, wanting to get into a substance abuse program; otherwise pertinent to relevant topics and without any delusional content, paranoid ideations or grandiosity; intermittent, passive SI (chronic), no plans/intention; no HI. minimal, intermittent AH, able to ignore. Patients insight and judgment are fair. Diagnostics Vital Signs (24Hr): Vital Signs - 24 hr 12/24/21 19:45 Temperature 96.7 F L Pulse Rate 74 Respiratory Rate 16 Blood Pressure 139/90 H Pulse Oximetry 99 Oxygen Delivery Method Room Air BMI result Body Mass Index 23.2 Labs Results: 12/16/21 11:56 12/23/21 08:19 Labs: Laboratory Results - last 48 hr 12/23/21 12/23/21 12/23/21 08:19 11:30 17:28 Creatinine 0.66 Estim Creat Clear Calc 155.7 Estimated GFR > 60 POC Glucose 117 H 98 12/23/21 12/24/21 12/24/21 20:12 08:23 11:48 Creatinine Estim Creat Clear Calc Estimated GFR POC Glucose 98 83 129 H 12/24/21 12/24/21 12/25/21 17:24 20:37 08:57 Creatinine Estim Creat Clear Calc Estimated GFR POC Glucose 76 88 69 Medications Medications Current Medications Acetaminophen (Acetaminophen 325 Mg Tablet) 650 mg PO Q6H PRN PRN Reason: Headache/Pain Mild Scale (1-3) Al Hydroxide/Mg Hydroxide (Magnesium Hydrox/Alum Hydrox 30 Ml Oral.Susp) 30 ml PO Q6H PRN PRN Reason: Heartburn/Nausea Amlodipine Besylate (Amlodipine Besylate 10 Mg Tablet) 10 mg PO DAILY [facility]; Protocol Last Admin: 12/25/21 08:43 Dose: 10 mg Aripiprazole (Aripiprazole 10 Mg Tablet) 10 mg PO DAILY [facility] Last Admin: 12/25/21 08:43 Dose: 10 mg Buprenorphine/Naloxone (Buprenorphine/Naloxone 8/2 Mg Film) 1 film SUBLINGUAL TID [facility] Last Admin: 12/25/21 08:43 Dose: 1 film Bupropion HCl (Bupropion Hcl Xl 150 Mg Tab.Er.24h) 450 mg PO DAILY [facility] Last Admin: 12/25/21 08:42 Dose: 450 mg Cefuroxime Axetil (Cefuroxime Axetil 250 Mg Tablet) 250 mg PO BID [facility] Last Admin: 12/25/21 08:43 Dose: 250 mg Clonidine HCl (Clonidine Hcl 0.1 Mg Tablet) 0.1 mg PO TID PRN; Protocol PRN Reason: hyperarousal, withdrawal, anxiety Docusate Sodium (Docusate Sodium 100 Mg Capsule) 100 mg PO BID PRN PRN Reason: constipation Gabapentin (Gabapentin 300 Mg Capsule) 600 mg PO TID [facility] Last Admin: 12/25/21 08:42 Dose: 600 mg Hydroxyzine HCl (Hydroxyzine Hcl 50 Mg Tablet) 50 mg PO Q6H PRN PRN Reason: Anxiety Ibuprofen (Ibuprofen 400 Mg Tablet) 400 mg PO Q6H PRN PRN Reason: mod pain Last Admin: 12/24/21 20:30 Dose: 400 mg Insulin Glargine (Insulin Glargine,Hum.Rec.Anlog 100 Unit/Ml 10 Ml Vial) 70 unit SUBCUT BEDTIME [facility] Last Admin: 12/24/21 20:55 Dose: 70 unit Insulin Human Lispro (Insulin Lispro 100 Unit/Ml 3 Ml Vial) 0 unit SUBCUT QIDACHS [facility]; Protocol Last Admin: 12/25/21 09:00 Dose: Not Given Magnesium Hydroxide (Milk Of Magnesia 30 Ml Oral.Susp) 30 ml PO DAILY PRN PRN Reason: Constipation Metformin HCl (Metformin Hcl 500 Mg Tablet) 500 mg PO BIDWM [facility] Last Admin: 12/25/21 08:43 Dose: 500 mg Multivitamins/Vitamin C (Multivitamin Tablet) 1 tab PO DAILY [facility] Last Admin: 12/25/21 08:43 Dose: 1 tab Nicotine (Nicotine 21 Mg Patch.Td24) 21 mg TRANSDERMA DAILY [facility] Last Admin: 12/25/21 08:43 Dose: 21 mg Omeprazole (Omeprazole 20 Mg Capsule.Dr) 20 mg PO DAILY@0630 [facility] Last Admin: 12/25/21 08:42 Dose: 20 mg Quetiapine Fumarate (Quetiapine Fumarate 200 Mg Tablet) 200 mg PO BEDTIME [facility] Last Admin: 12/24/21 20:30 Dose: 200 mg Trazodone HCl (Trazodone Hcl 50 Mg Tablet) 150 mg PO BEDTIME [facility] Last Admin: 12/24/21 20:31 Dose: 150 mg Allergies Allergies Allergy/AdvReac Type Severity Reaction Status Date / Time levofloxacin [From Levaquin] Allergy Intermediate rash Verified 11/21/20 20:44 Assessment & Plan Assessment & Plan (1) MDD (major depressive disorder), recurrent, severe, with psychosis: Status: Acute Code(s): F33.3 - Major depressive disorder, recurrent, severe with psychotic symptoms (2) Opioid use disorder: Status: Acute Code(s): F11.99 - Opioid use, unspecified with unspecified opioid-induced disorder (3) Stimulant use disorder: Status: Acute Code(s): F15.90 - Other stimulant use, unspecified, uncomplicated Plan Sukhwinder is a 46 y.o. Male who carries a dx of polysubstance abuse, MDD recurrent with psychotic features. He presented to [facility] on 12/16/2021 due SI with plan to stab himself, depression, and CAH telling him he should kill himself, poor sleep/ appetite. Precipitating factors include relapse on substances with daily opiate abuse, med non-adherence x 2 weeks, and chronic homelessness. Hx of multiple detox and inpatient admissions, hx of not following through with outpatient referrals. Last admitted to [facility] M5 in 11/2020. Utox positive for opiates, fentanyl, cocaine, amphetamines, and cannabis. 12/18 depressed, intermittent SI; AH subsiding. In withdrawal and on CIWA. For right now patient agrees to leave medication doses where they are, specifically Wellbutrin and Abilify and to reassess once he is through withdrawal. Director Heart discussed with patient that symptom reduction is only consistently possible if patient pursue sobriety and engages in therapy to which he agrees. 12/19/2021: No changes to current treatment plan. Maintain CIWA with Ativan for withdrawals. May consider increasing Abilify. Will review tomorrow 12/20/21: increase seroquel to 200mg as very poor sleep and patient preferred night meds increased versus abilify 12/21 mood is a little better, SI diminished; has passive intermittent SI however this is chronic. Wants gabapentin put back to 600 t.i.d. saying that he needs this for neuropathy. Although this medication carries risks especially when combined with substance abuse, patient has been on this medication for years; lowering dose at this point increase his risk for worsened neuropathic pain which is a trigger for patient's relapse. At this time, typewriters functional tester considers the potential benefit outweighs the potential risk and agrees to increase gabapentin back to 600 mg; this is still a reduced dose from his past dosing at 100 mg t.i.d. 12/22 patient reports mood is better still; still depressed but no SI. Hoping to get into a substance abuse treatment program but understands this may not be available and he'll and of going to a [facility]. Patient is close to or at baseline. 12/23 patient is polite and expressing gratitude for help received.? He reports that he remains doing better; says has intermittent passive SI which he says is chronic and normal for him.? AH is very minimal and able to be ignored.? Still focused on getting into a program. 12/24, patient remains doing better and feels he is back to his regular self. Still focused on program 12/25; remains stable Plan: Q15 min safety checks, CV change to regular diet at pt's request. GAbapentin 600mg TID Abilify increased to 10mg Seroquel was increased to 200mg for insomnia Otherwise home meds were continued -consider restarting SSRI/ SNRI, as pt has hx of being stable on zoloft; however both Abilify and Seroquel were increased. Consistent stability requires sobriety and engagement with outpatient treatment, something patient has struggled to commit to; perhaps it is best at this time to not add another medication and avoid polypharmacy until patient is able/willing to engage with outpatient treatment Monitor response to medications. Monitor for safety in the milieu. Discharge on stabilization. Patient seen. Chart reviewed. Discussed with team. Obtain collateral contact info?as needed I spent minutes with the patient and/or on the patient floor today, greater than?50% of which was spent counseling/coordinating care. Patient educated on: medical condition Informed Consent: understands Reason for contiued inpatient stay Substantial Risk for: stable for discharge
[2021-12-25 09:13] VITALS: BP 105/68; PULSE 61; RESP 16; TEMP 36.5; O2SAT 95
[2021-12-25 11:29] LABS: Glucose, Whole Blood 89 mg/dL (60-115)
[2021-12-25 16:58] VITALS: BP 117/74; PULSE 78; RESP 16; TEMP 36.7; O2SAT 97
[2021-12-25 18:21] LABS: Glucose, Whole Blood 91 mg/dL (60-115)
[2021-12-25] MEDS: traZODone HCL 50 MG TABLET 150 MG PO (19:51)
[2021-12-25] MEDS: QUEtiapine Fumarate 200 MG TABLET PO (19:52)
[2021-12-25] MEDS: Insulin Glargine,Hum.rec.anlog 100 UNIT/ML 10 ML VIAL 70 UNIT SUBCUT (19:52)
[2021-12-25 20:33] LABS: Glucose, Whole Blood 107 mg/dL (60-115)
[2021-12-26 06:00] VITALS: BP 119/75; PULSE 60; RESP 16; TEMP 36.2; O2SAT 97
[2021-12-26] MEDS: Omeprazole 20 MG CAPSULE.DR PO (06:24)
[2021-12-26 08:17] LABS: Glucose, Whole Blood 96 mg/dL (60-115)
[2021-12-26] MEDS: metFORMIN HCl 500 MG TABLET PO ×2 (09:05→17:00)
[2021-12-26] MEDS: Gabapentin 300 MG CAPSULE 600 MG PO ×3 (09:05→21:27)
[2021-12-26] MEDS: Buprenorphine/Naloxone 8/2 mg FILM 1 FILM SUBLINGUAL ×3 (09:05→21:26)
[2021-12-26] MEDS: buPROPion HCl XL 150 MG TAB.ER.24H 450 MG PO (09:05)
[2021-12-26] MEDS: Nicotine 21 MG PATCH.TD24 TRANSDERMA (09:06)
[2021-12-26] MEDS: Multivitamin TABLET 1 TAB PO (09:06)
[2021-12-26] MEDS: amLODIPine Besylate 10 MG TABLET PO (09:06)
[2021-12-26] MEDS: ARIPiprazole 10 MG TABLET PO (09:06)
[2021-12-26] MEDS: Ibuprofen 400 MG TABLET PO (09:18)
[2021-12-26 12:23] LABS: Glucose, Whole Blood 108 mg/dL (60-115)
[2021-12-26 16:42] LABS: Glucose, Whole Blood 231 mg/dL (60-115)
[2021-12-26 18:00] VITALS: BP 125/78; PULSE 89; RESP 16; TEMP 36.6
[2021-12-26] MEDS: Insulin Lispro 100 UNIT/ML 3 ML VIAL SUBCUT (18:17)
--- NOTE | 2021-12-26 19:15 | P.PNPSI_ITS ---
Subjective Subjective Date of Service: 12/26/21 Reason For Visit: Depression w psychosis, polysubstance abuse Interim History: Patient seen and discussed. till feeling depressed but less than on admission. Still has voices with derogatory content. Medications have heled in lowering the volume of the voices. Patient remains calm, polite. Still hoping to get into a program. Feels medications are adequate and does not want changes Review of Systems Review of Systems Withdrawal symptoms improving Mental Status Exam Mental Status Exam Narrative: Pt is alert and oriented; behavior is cooperative, calm; patient is not in distress; dressed in casual attire, scruffy but adequate hygiene; mood is de scribed as alright...so-so and affect congruent, calm; eye contact adequate; Speech is normal rate but a little soft in volume; normal prosody and not pressured; no psychomotor retardation; thought process is organized and goal directed; Thought content is on tx, post discharge plans, wanting to get into a substance abuse program; otherwise pertinent to relevant topics and without any delusional content, paranoid ideations or grandiosity; intermittent, passive SI (chronic), no plans/intention; no HI. minimal, intermittent AH, able to ignore. Patients insight and judgment are fair. Diagnostics Vital Signs (24Hr): Vital Signs - 24 hr 12/26/21 06:00 Temperature 97.2 F Pulse Rate 60 Respiratory Rate 16 Blood Pressure 119/75 Pulse Oximetry 97 Oxygen Delivery Method Room Air BMI result Body Mass Index 23.2 Labs Results: 12/16/21 11:56 12/23/21 08:19 Labs: Laboratory Results - last 48 hr 12/24/21 12/25/21 12/25/21 20:37 08:57 11:25 POC Glucose 88 69 89 12/25/21 12/25/21 12/26/21 18:17 20:29 08:10 POC Glucose 91 107 96 12/26/21 12/26/21 12:18 16:38 POC Glucose 108 231 H Medications Medications Current Medications Acetaminophen (Acetaminophen 325 Mg Tablet) 650 mg PO Q6H PRN PRN Reason: Headache/Pain Mild Scale (1-3) Al Hydroxide/Mg Hydroxide (Magnesium Hydrox/Alum Hydrox 30 Ml Oral.Susp) 30 ml PO Q6H PRN PRN Reason: Heartburn/Nausea Amlodipine Besylate (Amlodipine Besylate 10 Mg Tablet) 10 mg PO DAILY [facility]; Protocol Last Admin: 12/26/21 09:06 Dose: 10 mg Aripiprazole (Aripiprazole 10 Mg Tablet) 10 mg PO DAILY [facility] Last Admin: 12/26/21 09:06 Dose: 10 mg Buprenorphine/Naloxone (Buprenorphine/Naloxone 8/2 Mg Film) 1 film SUBLINGUAL TID [facility] Last Admin: 12/26/21 14:39 Dose: 1 film Bupropion HCl (Bupropion Hcl Xl 150 Mg Tab.Er.24h) 450 mg PO DAILY [facility] Last Admin: 12/26/21 09:05 Dose: 450 mg Cefuroxime Axetil (Cefuroxime Axetil 250 Mg Tablet) 250 mg PO BID [facility] Last Admin: 12/26/21 09:06 Dose: 250 mg Clonidine HCl (Clonidine Hcl 0.1 Mg Tablet) 0.1 mg PO TID PRN; Protocol PRN Reason: hyperarousal, withdrawal, anxiety Docusate Sodium (Docusate Sodium 100 Mg Capsule) 100 mg PO BID PRN PRN Reason: constipation Gabapentin (Gabapentin 300 Mg Capsule) 600 mg PO TID [facility] Last Admin: 12/26/21 14:39 Dose: 600 mg Hydroxyzine HCl (Hydroxyzine Hcl 50 Mg Tablet) 50 mg PO Q6H PRN PRN Reason: Anxiety Ibuprofen (Ibuprofen 400 Mg Tablet) 400 mg PO Q6H PRN PRN Reason: mod pain Last Admin: 12/26/21 09:18 Dose: 400 mg Insulin Glargine (Insulin Glargine,Hum.Rec.Anlog 100 Unit/Ml 10 Ml Vial) 70 unit SUBCUT BEDTIME [facility] Last Admin: 12/25/21 19:52 Dose: 70 unit Insulin Human Lispro (Insulin Lispro 100 Unit/Ml 3 Ml Vial) 0 unit SUBCUT QIDACHS [facility]; Protocol Last Admin: 12/26/21 18:17 Dose: 4 unit Magnesium Hydroxide (Milk Of Magnesia 30 Ml Oral.Susp) 30 ml PO DAILY PRN PRN Reason: Constipation Metformin HCl (Metformin Hcl 500 Mg Tablet) 500 mg PO BIDWM [facility] Last Admin: 12/26/21 17:00 Dose: 500 mg Multivitamins/Vitamin C (Multivitamin Tablet) 1 tab PO DAILY [facility] Last Admin: 12/26/21 09:06 Dose: 1 tab Nicotine (Nicotine 21 Mg Patch.Td24) 21 mg TRANSDERMA DAILY [facility] Last Admin: 12/26/21 09:06 Dose: 21 mg Omeprazole (Omeprazole 20 Mg Capsule.) 20 mg PO DAILY@0630 [facility] Last Admin: 12/26/21 06:24 Dose: 20 mg Quetiapine Fumarate (Quetiapine Fumarate 200 Mg Tablet) 200 mg PO BEDTIME [facility] Last Admin: 12/25/21 19:52 Dose: 200 mg Trazodone HCl (Trazodone Hcl 50 Mg Tablet) 150 mg PO BEDTIME [facility] Last Admin: 12/25/21 19:51 Dose: 150 mg Allergies Allergies Allergy/AdvReac Type Severity Reaction Status Date / Time levofloxacin [From Levaquin] Allergy Intermediate rash Verified 11/21/20 20:44 Assessment & Plan Assessment & Plan (1) MDD (major depressive disorder), recurrent, severe, with psychosis: Status: Acute Code(s): F33.3 - Major depressive disorder, recurrent, severe with psychotic symptoms (2) Opioid use disorder: Status: Acute Code(s): F11.99 - Opioid use, unspecified with unspecified opioid-induced disorder (3) Stimulant use disorder: Status: Acute Code(s): F15.90 - Other stimulant use, unspecified, uncomplicated Plan Sukhwinder is a 46 y.o. Male who carries a dx of polysubstance abuse, MDD recurrent with psychotic features. He presented to [facility] on 12/16/2021 due SI with plan to stab himself, depression, and CAH telling him he should kill himself, poor sleep/ appetite. Precipitating factors include relapse on substances with daily opiate abuse, med non-adherence x 2 weeks, and chronic homelessness. Hx of multiple detox and inpatient admissions, hx of not following through with outpatient referrals. Last admitted to [facility] M[facility] in 11/2020. Utox positive for opiates, fentanyl, cocaine, amphetamines, and cannabis. 12/18 depressed, intermittent SI; AH subsiding. In withdrawal and on CIWA. For right now patient agrees to leave medication doses where they are, specifically Wellbutrin and Abilify and to reassess once he is through withdrawal. Feller Machine Operator discussed with patient that symptom reduction is only consistently possible if patient pursue sobriety and engages in therapy to which he agrees. 12/19/2021: No changes to current treatment plan. Maintain CIWA with Ativan for withdrawals. May consider increasing Abilify. Will review tomorrow 12/20/21: increase seroquel to 200mg as very poor sleep and patient preferred night meds increased versus abilify 12/21 mood is a little better, SI diminished; has passive intermittent SI however this is chronic. Wants gabapentin put back to 600 t.i.d. saying that he needs this for neuropathy. Although this medication carries risks especially when combined with substance abuse, patient has been on this medication for years; lowering dose at this point increase his risk for worsened neuropathic pain which is a trigger for patient's relapse. At this time, lead technical writer considers the potential benefit outweighs the potential risk and agrees to increase gabapentin back to 600 mg; this is still a reduced dose from his past dosing at 100 mg t.i.d. 12/22 patient reports mood is better still; still depressed but no SI. Hoping to get into a substance abuse treatment program but understands this may not be available and he'll and of [facility] to a [facility]. Patient is close to or at baseline. 12/23 patient is polite and expressing gratitude for help received.? He reports that he remains doing better; says has intermittent passive SI which he says is chronic and normal for him.? AH is very minimal and able to be ignored.? Still focused on getting into a program. 12/24, patient remains doing better and feels he is back to his regular self. Still focused on program 12/26: Continue treatment plan. Plan: Q15 min safety checks, CV GAbapentin 600mg TID Abilify increased to 10mg Seroquel was increased to 200mg for insomnia Otherwise home meds were continued -consider restarting SSRI/ SNRI, as pt has hx of being stable on zoloft; however both Abilify and Seroquel were increased. Consistent stability requires sobriety and engagement with outpatient treatment, something patient has struggled to commit to; perhaps it is best at this time to not add another medication and avoid polypharmacy until patient is able/willing to engage with outpatient treatment Monitor response to medications. Monitor for safety in the milieu. Discharge on stabilization. Patient seen. Chart reviewed. Discussed with team. Obtain collateral contact info?as needed I spent minutes with the patient and/or on the patient floor today, greater than?50% of which was spent counseling/coordinating care. Reason for contiued inpatient stay Substantial Risk for: harm to self and inability to function
[2021-12-26] MEDS: traZODone HCL 50 MG TABLET 150 MG PO (21:26)
[2021-12-26] MEDS: Insulin Glargine,Hum.rec.anlog 100 UNIT/ML 10 ML VIAL 70 UNIT SUBCUT (21:26)
[2021-12-26] MEDS: QUEtiapine Fumarate 200 MG TABLET PO (21:27)
[2021-12-26 21:45] LABS: Glucose, Whole Blood 124 mg/dL (60-115)
[2021-12-27 06:00] VITALS: BP 115/76; PULSE 65; RESP 18; TEMP 36.6; O2SAT 98
[2021-12-27 07:43] LABS: Glucose, Whole Blood 89 mg/dL (60-115)
[2021-12-27] MEDS: Nicotine 21 MG PATCH.TD24 TRANSDERMA (09:05)
[2021-12-27] MEDS: buPROPion HCl XL 150 MG TAB.ER.24H 450 MG PO (09:06)
[2021-12-27] MEDS: metFORMIN HCl 500 MG TABLET PO ×2 (09:06→17:13)
[2021-12-27] MEDS: amLODIPine Besylate 10 MG TABLET PO (09:06)
[2021-12-27] MEDS: Gabapentin 300 MG CAPSULE 600 MG PO ×3 (09:06→21:07)
[2021-12-27] MEDS: Buprenorphine/Naloxone 8/2 mg FILM 1 FILM SUBLINGUAL ×3 (09:07→21:26)
[2021-12-27] MEDS: ARIPiprazole 10 MG TABLET PO (09:07)
[2021-12-27] MEDS: Multivitamin TABLET 1 TAB PO (09:07)
[2021-12-27] MEDS: Omeprazole 20 MG CAPSULE.DR PO (09:11)
[2021-12-27 12:40] LABS: Glucose, Whole Blood 143 mg/dL (60-115)
--- NOTE | 2021-12-27 15:19 | HO.PSYCHPN ---
Subjective Subjective Date of Service: 12/27/21 Reason For Visit: Depression w psychosis, polysubstance abuse Interim History: Patient was seen and discussed the team. He was seen in the group room when he spends a lot of time doing arts and crafts. He was calm and cooperative. He was polite. He reported that his mood is so-so . Continues depressed. He says his voices have lessened compared to time of admission. His blood sugars have been well controlled. He is not needed coverage insulin. When asked about suicidal ideation he is they are better somewhat he had a visit his father yesterday and reported that his father has difficulty with speech when it makes it hard to understand him which is frustrating. Father also lives in elderly community setting which i does not allow people to stay so the patient cannot stay there Review of Systems Review of Systems Withdrawal symptoms improving Mental Status Exam Mental Status Exam Narrative: Pt is alert and oriented; behavior is cooperative, calm; patient is not in distress; dressed in casual attire, scruffy but adequate hygiene; mood is described as alright...so-so Somewhat better and affect congruent, calm; eye contact adequate; Speech is normal rate but a little soft in volume; normal prosody and not pressured; no psychomotor retardation; thought process is organized and goal directed; Thought content is on tx, post discharge plans, wanting to get into a substance abuse program; otherwise pertinent to relevant topics and without any delusional content, paranoid ideations or grandiosity; intermittent, passive SI (chronic), no plans/intention; no HI. minimal, intermittent AH, able to ignore. Patients insight and judgment are fair. Diagnostics Vital Signs (24Hr): Vital Signs - 24 hr 12/27/21 06:00 Temperature 97.9 F Pulse Rate 65 Respiratory Rate 18 Blood Pressure 115/76 Pulse Oximetry 98 Oxygen Delivery Method Room Air BMI result Body Mass Index 23.2 Labs Results: 12/16/21 11:56 12/23/21 08:19 Labs: Laboratory Results - last 48 hr 12/25/21 12/26/21 12/26/21 20:29 08:10 12:18 POC Glucose 107 96 108 12/26/21 12/26/21 12/27/21 16:38 21:24 07:39 POC Glucose 231 H 124 H 89 12/27/21 12/27/21 12:35 17:26 POC Glucose 143 H 109 Medications Medications Current Medications Acetaminophen (Acetaminophen 325 Mg Tablet) 650 mg PO Q6H PRN PRN Reason: Headache/Pain Mild Scale (1-3) Al Hydroxide/Mg Hydroxide (Magnesium Hydrox/Alum Hydrox 30 Ml Oral.Susp) 30 ml PO Q6H PRN PRN Reason: Heartburn/Nausea Amlodipine Besylate (Amlodipine Besylate 10 Mg Tablet) 10 mg PO DAILY [facility]; Protocol Last Admin: 12/27/21 09:06 Dose: 10 mg Aripiprazole (Aripiprazole 10 Mg Tablet) 10 mg PO DAILY [facility] Last Admin: 12/27/21 09:07 Dose: 10 mg Buprenorphine/Naloxone (Buprenorphine/Naloxone 8/2 Mg Film) 1 film SUBLINGUAL TID [facility] Last Admin: 12/27/21 14:54 Dose: 1 film Bupropion HCl (Bupropion Hcl Xl 150 Mg Tab.Er.24h) 450 mg PO DAILY [facility] Last Admin: 12/27/21 09:06 Dose: 450 mg Clonidine HCl (Clonidine Hcl 0.1 Mg Tablet) 0.1 mg PO TID PRN; Protocol PRN Reason: hyperarousal, withdrawal, anxiety Docusate Sodium (Docusate Sodium 100 Mg Capsule) 100 mg PO BID PRN PRN Reason: constipation Gabapentin (Gabapentin 300 Mg Capsule) 600 mg PO TID [facility] Last Admin: 12/27/21 14:54 Dose: 600 mg Hydroxyzine HCl (Hydroxyzine Hcl 50 Mg Tablet) 50 mg PO Q6H PRN PRN Reason: Anxiety Ibuprofen (Ibuprofen 400 Mg Tablet) 400 mg PO Q6H PRN PRN Reason: mod pain Last Admin: 12/26/21 09:18 Dose: 400 mg Insulin Glargine (Insulin Glargine,Hum.Rec.Anlog 100 Unit/Ml 10 Ml Vial) 70 unit SUBCUT BEDTIME [facility] Last Admin: 12/26/21 21:26 Dose: 70 unit Insulin Human Lispro (Insulin Lispro 100 Unit/Ml 3 Ml Vial) 0 unit SUBCUT QIDACHS [facility]; Protocol Last Admin: 12/27/21 18:21 Dose: Not Given Magnesium Hydroxide (Milk Of Magnesia 30 Ml Oral.Susp) 30 ml PO DAILY PRN PRN Reason: Constipation Metformin HCl (Metformin Hcl 500 Mg Tablet) 500 mg PO BIDWM [facility] Last Admin: 12/27/21 17:13 Dose: 500 mg Multivitamins/Vitamin C (Multivitamin Tablet) 1 tab PO DAILY [facility] Last Admin: 12/27/21 09:07 Dose: 1 tab Nicotine (Nicotine 21 Mg Patch.Td24) 21 mg TRANSDERMA DAILY [facility] Last Admin: 12/27/21 09:05 Dose: 21 mg Omeprazole (Omeprazole 20 Mg Capsule.Dr) 20 mg PO DAILY@0630 [facility] Last Admin: 12/27/21 09:11 Dose: 20 mg Quetiapine Fumarate (Quetiapine Fumarate 200 Mg Tablet) 200 mg PO BEDTIME [facility] Last Admin: 12/26/21 21:27 Dose: 200 mg Trazodone HCl (Trazodone Hcl 50 Mg Tablet) 150 mg PO BEDTIME [facility] Last Admin: 12/26/21 21:26 Dose: 150 mg Allergies Allergies Allergy/AdvReac Type Severity Reaction Status Date / Time levofloxacin [From Levaquin] Allergy Intermediate rash Verified 11/21/20 20:44 Assessment & Plan Assessment & Plan (1) MDD (major depressive disorder), recurrent, severe, with psychosis: Status: Acute Code(s): F33.3 - Major depressive disorder, recurrent, severe with psychotic symptoms (2) Opioid use disorder: Status: Acute Code(s): F11.99 - Opioid use, unspecified with unspecified opioid-induced disorder (3) Stimulant use disorder: Status: Acute Code(s): F15.90 - Other stimulant use, unspecified, uncomplicated Plan Sukhwinder is a 46 y.o. Male who carries a dx of polysubstance abuse, MDD recurrent with psychotic features. He presented to [facility] on 12/16/2021 due SI with plan to stab himself, depression, and CAH telling him he should kill himself, poor sleep/ appetite. Precipitating factors include relapse on substances with daily opiate abuse, med non-adherence x 2 weeks, and chronic homelessness. Hx of multiple detox and inpatient admissions, hx of not following through with outpatient referrals. Last admitted to [facility] in 11/2020. Utox positive for opiates, fentanyl, cocaine, amphetamines, and cannabis. 12/18 depressed, intermittent SI; AH subsiding. In withdrawal and on CIWA. For right now patient agrees to leave medication doses where they are, specifically Wellbutrin and Abilify and to reassess once he is through withdrawal. Push Button Switch Assembler discussed with patient that symptom reduction is only consistently possible if patient pursue sobriety and engages in therapy to which he agrees. 12/19/2021: No changes to current treatment plan. Maintain CIWA with Ativan for withdrawals. May consider increasing Abilify. Will review tomorrow 12/20/21: increase seroquel to 200mg as very poor sleep and patient preferred night meds increased versus abilify 12/21 mood is a little better, SI diminished; has passive intermittent SI however this is chronic. Wants gabapentin put back to 600 t.i.d. saying that he needs this for neuropathy. Although this medication carries risks especially when combined with substance abuse, patient has been on this medication for years; lowering dose at this point increase his risk for worsened neuropathic pain which is a trigger for patient's relapse. At this time, senior medical writer considers the potential benefit outweighs the potential risk and agrees to increase gabapentin back to 600 mg; this is still a reduced dose from his past dosing at 100 mg t.i.d. 12/22 patient reports mood is better still; still depressed but no SI. Hoping to get into a substance abuse treatment program but understands this may not be available and he'll and of going to a half-way. Patient is close to or at baseline. 12/23 patient is polite and expressing gratitude for help received.? He reports that he remains doing better; says has intermittent passive SI which he says is chronic and normal for him.? AH is very minimal and able to be ignored.? Still focused on getting into a program. 12/24, patient remains doing better and feels he is back to his regular self. Still focused on program 12/25; remains stable 12/27/2021: continue current treatment plan. Plan: Q15 min safety checks, CV change to regular diet at pt's request. GAbapentin 600mg TID Abilify increased to 10mg Seroquel was increased to 200mg for insomnia Otherwise home meds were continued -consider restarting SSRI/ SNRI, as pt has hx of being stable on zoloft; however both Abilify and Seroquel were increased. Consistent stability requires sobriety and engagement with outpatient treatment, something patient has struggled to commit to; perhaps it is best at this time to not add another medication and avoid polypharmacy until patient is able/willing to engage with outpatient treatment Monitor response to medications. Monitor for safety in the milieu. Discharge on stabilization. Patient seen. Chart reviewed. Discussed with team. Obtain collateral contact info?as needed I spent minutes with the patient and/or on the patient floor today, greater than?50% of which was spent counseling/coordinating care. Reason for contiued inpatient stay Substantial Risk for: harm to self
[2021-12-27 17:31] LABS: Glucose, Whole Blood 109 mg/dL (60-115)
[2021-12-27 18:00] VITALS: BP 132/81; PULSE 74; RESP 18
[2021-12-27] MEDS: traZODone HCL 50 MG TABLET 150 MG PO (21:07)
[2021-12-27] MEDS: QUEtiapine Fumarate 200 MG TABLET PO (21:07)
[2021-12-27 21:08] LABS: Glucose, Whole Blood 102 mg/dL (60-115)
[2021-12-27] MEDS: Insulin Glargine,Hum.rec.anlog 100 UNIT/ML 10 ML VIAL 70 UNIT SUBCUT (21:10)
[2021-12-28] MEDS: Omeprazole 20 MG CAPSULE.DR PO (04:04)
[2021-12-28 06:00] VITALS: BP 95/63; PULSE 68; RESP 16; TEMP 36.4; O2SAT 98
[2021-12-28 08:24] LABS: Glucose, Whole Blood 115 mg/dL (60-115)
[2021-12-28] MEDS: metFORMIN HCl 500 MG TABLET PO ×2 (09:07→17:44)
[2021-12-28] MEDS: buPROPion HCl XL 150 MG TAB.ER.24H 450 MG PO (09:07)
[2021-12-28] MEDS: Nicotine 21 MG PATCH.TD24 TRANSDERMA (09:08)
[2021-12-28] MEDS: Buprenorphine/Naloxone 8/2 mg FILM 1 FILM SUBLINGUAL ×3 (09:08→21:27)
[2021-12-28] MEDS: Multivitamin TABLET 1 TAB PO (09:08)
[2021-12-28] MEDS: ARIPiprazole 10 MG TABLET PO (09:08)
[2021-12-28] MEDS: Gabapentin 300 MG CAPSULE 600 MG PO ×3 (09:08→21:27)
[2021-12-28 11:49] LABS: Glucose, Whole Blood 65 mg/dL (60-115)
[2021-12-28] MEDS: amLODIPine Besylate 10 MG TABLET PO (11:50)
[2021-12-28 16:14] VITALS: BP 137/77; PULSE 78; TEMP 36.7; O2SAT 96
[2021-12-28 16:43] LABS: Glucose, Whole Blood 80 mg/dL (60-115)
--- NOTE | 2021-12-28 17:07 | P.PNPSI_ITS ---
Subjective Subjective Date of Service: 12/28/21 Reason For Visit: Depression w psychosis, polysubstance abuse Interim History: Patient feels a little better; more social in milieu; no complaints no requests; continues to be hopeful that he will get into a program Mental Status Exam Mental Status Exam Narrative: Pt is alert and oriented; behavior is cooperative, calm; patient is not in distress; dressed in casual attire, appropriately groomed and with adequate hygiene; mood is described as alright; little better and affect congruent, calm; eye contact adequate; Speech is normal rate but a little soft in volume; normal prosody and not pressured; no psychomotor retardation; thought process is organized and goal directed; Thought content is on tx, post discharge plans, wanting to get into a substance abuse program; otherwise pertinent to relevant topics and without any delusional content, paranoid ideations or grandiosity; intermittent, passive SI (chronic), no plans/intention; no HI. minimal, intermittent AH, able to ignore. Patients insight and judgment are fair. Diagnostics Vital Signs (24Hr): Vital Signs - 24 hr 12/27/21 18:00 12/28/21 06:00 12/28/21 16:14 Temperature 97.6 F 98.1 F Pulse Rate 74 68 78 Respiratory Rate 18 16 Blood Pressure 132/81 95/63 137/77 Pulse Oximetry 98 96 Oxygen Delivery Method Room Air Room Air BMI result Body Mass Index 23.2 Labs Results: 12/16/21 11:56 12/31/21 07:56 Labs: Laboratory Results - last 48 hr 12/26/21 12/27/21 12/27/21 21:24 07:39 12:35 POC Glucose 124 H 89 143 H 12/27/21 12/27/21 12/28/21 17:26 21:04 08:18 POC Glucose 109 102 115 12/28/21 12/28/21 11:44 16:39 POC Glucose 65 80 Medications Medications Current Medications Acetaminophen (Acetaminophen 325 Mg Tablet) 650 mg PO Q6H PRN PRN Reason: Headache/Pain Mild Scale (1-3) Al Hydroxide/Mg Hydroxide (Magnesium Hydrox/Alum Hydrox 30 Ml Oral.Susp) 30 ml PO Q6H PRN PRN Reason: Heartburn/Nausea Amlodipine Besylate (Amlodipine Besylate 10 Mg Tablet) 10 mg PO DAILY [facility]; Protocol Last Admin: 12/28/21 11:50 Dose: 10 mg Aripiprazole (Aripiprazole 10 Mg Tablet) 10 mg PO DAILY [facility] Last Admin: 12/28/21 09:08 Dose: 10 mg Buprenorphine/Naloxone (Buprenorphine/Naloxone 8/2 Mg Film) 1 film SUBLINGUAL TID [facility] Last Admin: 12/28/21 14:25 Dose: 1 film Bupropion HCl (Bupropion Hcl Xl 150 Mg Tab.Er.24h) 450 mg PO DAILY [facility] Last Admin: 12/28/21 09:07 Dose: 450 mg Clonidine HCl (Clonidine Hcl 0.1 Mg Tablet) 0.1 mg PO TID PRN; Protocol PRN Reason: hyperarousal, withdrawal, anxiety Docusate Sodium (Docusate Sodium 100 Mg Capsule) 100 mg PO BID PRN PRN Reason: constipation Gabapentin (Gabapentin 300 Mg Capsule) 600 mg PO TID [facility] Last Admin: 12/28/21 14:25 Dose: 600 mg Hydroxyzine HCl (Hydroxyzine Hcl 50 Mg Tablet) 50 mg PO Q6H PRN PRN Reason: Anxiety Ibuprofen (Ibuprofen 400 Mg Tablet) 400 mg PO Q6H PRN PRN Reason: mod pain Last Admin: 12/26/21 09:18 Dose: 400 mg Insulin Glargine (Insulin Glargine,Hum.Rec.Anlog 100 Unit/Ml 10 Ml Vial) 70 unit SUBCUT BEDTIME [facility] Last Admin: 12/27/21 21:10 Dose: 70 unit Insulin Human Lispro (Insulin Lispro 100 Unit/Ml 3 Ml Vial) 0 unit SUBCUT [facility]I [facility]; Protocol Last Admin: 12/28/21 11:48 Dose: Not Given Magnesium Hydroxide (Milk Of Magnesia 30 Ml Oral.Susp) 30 ml PO DAILY PRN PRN Reason: Constipation Metformin HCl (Metformin Hcl 500 Mg Tablet) 500 mg PO BIDWM [facility] Last Admin: 12/28/21 09:07 Dose: 500 mg Multivitamins/Vitamin C (Multivitamin Tablet) 1 tab PO DAILY [facility] Last Admin: 12/28/21 09:08 Dose: 1 tab Nicotine (Nicotine 21 Mg Patch.Td24) 21 mg TRANSDERMA DAILY [facility] Last Admin: 12/28/21 09:08 Dose: 21 mg Omeprazole (Omeprazole 20 Mg Capsule.Dr) 20 mg PO DAILY@0630 [facility] Last Admin: 12/28/21 04:04 Dose: 20 mg Quetiapine Fumarate (Quetiapine Fumarate 200 Mg Tablet) 200 mg PO BEDTIME [facility] Last Admin: 12/27/21 21:07 Dose: 200 mg Trazodone HCl (Trazodone Hcl 50 Mg Tablet) 150 mg PO BEDTIME [facility] Last Admin: 12/27/21 21:07 Dose: 150 mg Allergies Allergies Allergy/AdvReac Type Severity Reaction Status Date / Time levofloxacin [From Levaquin] Allergy Intermediate rash Verified 11/21/20 20:44 Assessment & Plan Assessment & Plan (1) MDD (major depressive disorder), recurrent, severe, with psychosis: Status: Acute Code(s): F33.3 - Major depressive disorder, recurrent, severe with psychotic symptoms (2) Opioid use disorder: Status: Acute Code(s): F11.99 - Opioid use, unspecified with unspecified opioid-induced disorder (3) Stimulant use disorder: Status: Acute Code(s): F15.90 - Other stimulant use, unspecified, uncomplicated (4) Neuropathy: Status: Acute Code(s): G62.9 - Polyneuropathy, unspecified (5) DM II (diabetes mellitus, type II), controlled: Status: Acute Code(s): E11.9 - Type 2 diabetes mellitus without complications Plan Sukhwinder is a 46 y.o. Male who carries a dx of polysubstance abuse, MDD recurrent with psychotic features. He presented to [facility] on 12/16/2021 due SI with plan to stab himself, depression, and CAH telling him he should kill himself, poor sleep/ appetite. Precipitating factors include relapse on substances with daily opiate abuse, med non-adherence x 2 weeks, and chronic homelessness. Hx of multiple detox and inpatient admissions, hx of not following through with outpatient referrals. Last admitted to [facility] M5 in 11/2020. Utox positive for opiates, fentanyl, cocaine, amphetamines, and cannabis. 12/18 depressed, intermittent SI; AH subsiding. In withdrawal and on CIWA. For right now patient agrees to leave medication doses where they are, specifically Wellbutrin and Abilify and to reassess once he is through withdrawal. Typesetter Apprentice discussed with patient that symptom reduction is only consistently possible if patient pursue sobriety and engages in therapy to which he agrees. 12/19/2021: No changes to current treatment plan. Maintain CIWA with Ativan for withdrawals. May consider increasing Abilify. Will review tomorrow 12/20/21: increase seroquel to 200mg as very poor sleep and patient preferred night meds increased versus abilify 12/21 mood is a little better, SI diminished; has passive intermittent SI however this is chronic. Wants gabapentin put back to 600 t.i.d. saying that he needs this for neuropathy. Although this medication carries risks especially when co mbined with substance abuse, patient has been on this medication for years; lowering dose at this point increase his risk for worsened neuropathic pain which is a trigger for patient's relapse. At this time, junior technical writer considers the potential benefit outweighs the potential risk and agrees to increase gabapentin back to 600 mg; this is still a reduced dose from his past dosing at 100 mg t.i.d. 12/22 patient reports mood is better still; still depressed but no SI. Hoping to get into a substance abuse treatment program but understands this may not be available and he'll and of going to a jail. Patient is close to or at baseline. 12/23 patient is polite and expressing gratitude for help received.? He reports that he remains doing better; says has intermittent passive SI which he says is chronic and normal for him.? AH is very minimal and able to be ignored.? Still focused on getting into a program. 12/24, patient remains doing better and feels he is back to his regular self. Still focused on program 12/25; remains stable 12/27/2021: continue current treatment plan. 12/28 remains stable, improved mood, hopeful. Patient's blood sugar levels have remained stable and he has not needed sliding scale very much, with only 1 value over 200 on 12/26 Plan: Q15 min safety checks, CV change to regular diet at pt's request. GAbapentin 600mg TID for neuropathy Abilify increased to 10mg Seroquel was increased to 200mg for insomnia Otherwise home meds were continued -consider restarting SSRI/ SNRI, as pt has hx of being stable on zoloft; however both Abilify and Seroquel were increased. Consistent stability requires sobriety and engagement with outpatient treatment, something patient has struggled to commit to; perhaps it is best at this time to not add another medication and avoid polypharmacy until patient is able/willing to engage with outpatient treatment Monitor response to medications. Monitor for safety in the milieu. Discharge on stabilization. Patient seen. Chart reviewed. Discussed with team. Obtain collateral contact info?as needed I spent minutes with the patient and/or on the patient floor today, greater than?50% of which was spent counseling/coordinating care. Reason for contiued inpatient stay Substantial Risk for: stable for discharge
[2021-12-28 21:05] LABS: Glucose, Whole Blood 151 mg/dL (60-115)
[2021-12-28] MEDS: Insulin Glargine,Hum.rec.anlog 100 UNIT/ML 10 ML VIAL 70 UNIT SUBCUT (21:21)
[2021-12-28] MEDS: QUEtiapine Fumarate 200 MG TABLET PO (21:27)
[2021-12-28] MEDS: traZODone HCL 50 MG TABLET 150 MG PO (21:27)
[2021-12-29] MEDS: Omeprazole 20 MG CAPSULE.DR PO (06:37)
[2021-12-29 08:00] LABS: Glucose, Whole Blood 82 mg/dL (60-115)
[2021-12-29] MEDS: amLODIPine Besylate 10 MG TABLET PO (08:47)
[2021-12-29] MEDS: metFORMIN HCl 500 MG TABLET PO ×2 (08:47→16:57)
[2021-12-29] MEDS: Buprenorphine/Naloxone 8/2 mg FILM 1 FILM SUBLINGUAL ×3 (08:47→21:23)
[2021-12-29] MEDS: Gabapentin 300 MG CAPSULE 600 MG PO ×3 (08:47→21:23)
[2021-12-29] MEDS: ARIPiprazole 10 MG TABLET PO (08:47)
[2021-12-29] MEDS: Multivitamin TABLET 1 TAB PO (08:47)
[2021-12-29] MEDS: buPROPion HCl XL 150 MG TAB.ER.24H 450 MG PO (08:47)
[2021-12-29 08:48] VITALS: BP 132/84; PULSE 70; TEMP 36.1
[2021-12-29] MEDS: Nicotine 21 MG PATCH.TD24 TRANSDERMA (08:49)
[2021-12-29 10:28] LABS: Glucose, Whole Blood 120 mg/dL (60-115)
[2021-12-29 16:25] VITALS: BP 157/76; PULSE 61; RESP 20; TEMP 36.1; O2SAT 96
[2021-12-29 17:06] LABS: Glucose, Whole Blood 123 mg/dL (60-115)
[2021-12-29 18:00] VITALS: BP 160/78; PULSE 60; RESP 18; TEMP 36.4; O2SAT 97
[2021-12-29 20:56] LABS: Glucose, Whole Blood 87 mg/dL (60-115)
[2021-12-29] MEDS: Insulin Glargine,Hum.rec.anlog 100 UNIT/ML 10 ML VIAL 70 UNIT SUBCUT (21:24)
[2021-12-29] MEDS: QUEtiapine Fumarate 200 MG TABLET PO (21:25)
[2021-12-29] MEDS: traZODone HCL 50 MG TABLET 150 MG PO (21:26)
--- NOTE | 2021-12-29 21:58 | P.PNPSI_ITS ---
Subjective Subjective Date of Service: 12/29/21 Reason For Visit: Depression w psychosis, polysubstance abuse Interim History: Patient in good mood today and for the 1st time technical document writer saw patient's smile. House Officer and patient went to look at the [place] out of the window which was fun to do. Patient more able to engage, talking more freely and feels that his mood is indeed better. Continues to hope to go to a program. No other complaints or requests. Mental Status Exam Mental Status Exam Narrative: Pt is alert and oriented; behavior is cooperative, calm, friendly; patient is not in distress; dressed in casual attire, appropriately groomed and with adequate hygiene; mood is described as good and affect congruent brighter, calm; eye contact adequate; Speech is normal rate but a little soft in volume; normal prosody and not pressured; no psychomotor retardation; thought process is organized and goal directed; Thought content is on tx, post discharge plans, wanting to get into a substance abuse program; otherwise pertinent to relevant topics and without any delusional content, paranoid ideations or grandiosity; intermittent, passive SI (chronic), no plans/intention; no HI. minimal, intermittent AH, able to ignore. Patients insight and judgment are fair. Diagnostics Vital Signs (24Hr): Vital Signs - 24 hr 12/29/21 08:48 12/29/21 16:25 Temperature 97 F 97 F Pulse Rate 70 61 Respiratory Rate 20 Blood Pressure 132/84 157/76 H Pulse Oximetry 96 Oxygen Delivery Method Room Air BMI result Body Mass Index 23.2 Labs Results: 12/16/21 11:56 12/31/21 07:56 Labs: Laboratory Results - last 48 hr 12/28/21 12/28/21 12/28/21 08:18 11:44 16:39 POC Glucose 115 65 80 12/28/21 12/29/21 12/29/21 21:01 07:56 10:23 POC Glucose 151 H 82 120 H 12/29/21 12/29/21 17:02 20:53 POC Glucose 123 H 87 Medications Medications Current Medications Acetaminophen (Acetaminophen 325 Mg Tablet) 650 mg PO Q6H PRN PRN Reason: Headache/Pain Mild Scale (1-3) Al Hydroxide/Mg Hydroxide (Magnesium Hydrox/Alum Hydrox 30 Ml Oral.Susp) 30 ml PO Q6H PRN PRN Reason: Heartburn/Nausea Amlodipine Besylate (Amlodipine Besylate 10 Mg Tablet) 10 mg PO DAILY [facility]; Protocol Last Admin: 12/29/21 08:47 Dose: 10 mg Aripiprazole (Aripiprazole 10 Mg Tablet) 10 mg PO DAILY [facility] Last Admin: 12/29/21 08:47 Dose: 10 mg Buprenorphine/Naloxone (Buprenorphine/Naloxone 8/2 Mg Film) 1 film SUBLINGUAL TID [facility] Last Admin: 12/29/21 21:23 Dose: 1 film Bupropion HCl (Bupropion Hcl Xl 150 Mg Tab.Er.24h) 450 mg PO DAILY [facility] Last Admin: 12/29/21 08:47 Dose: 450 mg Clonidine HCl (Clonidine Hcl 0.1 Mg Tablet) 0.1 mg PO TID PRN; Protocol PRN Reason: hyperarousal, withdrawal, anxiety Docusate Sodium (Docusate Sodium 100 Mg Capsule) 100 mg PO BID PRN PRN Reason: constipation Gabapentin (Gabapentin 300 Mg Capsule) 600 mg PO TID [facility] Last Admin: 12/29/21 21:23 Dose: 600 mg Hydroxyzine HCl (Hydroxyzine Hcl 50 Mg Tablet) 50 mg PO Q6H PRN PRN Reason: Anxiety Ibuprofen (Ibuprofen 400 Mg Tablet) 400 mg PO Q6H PRN PRN Reason: mod pain Last Admin: 12/26/21 09:18 Dose: 400 mg Insulin Glargine (Insulin Glargine,Hum.Rec.Anlog 100 Unit/Ml 10 Ml Vial) 70 unit SUBCUT BEDTIME [facility] Last Admin: 12/29/21 21:24 Dose: 70 unit Insulin Human Lispro (Insulin Lispro 100 Unit/Ml 3 Ml Vial) 0 unit SUBCUT QIDACHS [facility]; Protocol Last Admin: 12/29/21 21:25 Dose: Not Given Magnesium Hydroxide (Milk Of Magnesia 30 Ml Oral.Susp) 30 ml PO DAILY PRN PRN Reason: Constipation Metformin HCl (Metformin Hcl 500 Mg Tablet) 500 mg PO BIDWM [facility] Last Admin: 12/29/21 16:57 Dose: 500 mg Multivitamins/Vitamin C (Multivitamin Tablet) 1 tab PO DAILY [facility] Last Admin: 12/29/21 08:47 Dose: 1 tab Nicotine (Nicotine 21 Mg Patch.Td24) 21 mg TRANSDERMA DAILY [facility] Last Admin: 12/29/21 08:49 Dose: 21 mg Omeprazole (Omeprazole 20 Mg Capsule.Dr) 20 mg PO DAILY@0630 [facility] Last Admin: 12/29/21 06:37 Dose: 20 mg Quetiapine Fumarate (Quetiapine Fumarate 200 Mg Tablet) 200 mg PO BEDTIME [facility] Last Admin: 12/29/21 21:25 Dose: 200 mg Trazodone HCl (Trazodone Hcl 50 Mg Tablet) 150 mg PO BEDTIME [facility] Last Admin: 12/29/21 21:26 Dose: 150 mg Allergies Allergies Allergy/AdvReac Type Severity Reaction Status Date / Time levofloxacin [From Levaquin] Allergy Intermediate rash Verified 11/21/20 20:44 Assessment & Plan Assessment & Plan (1) MDD (major depressive disorder), recurrent, severe, with psychosis: Status: Acute Code(s): F33.3 - Major depressive disorder, recurrent, severe with psychotic symptoms (2) Opioid use disorder: Status: Acute Code(s): F11.99 - Opioid use, unspecified with unspecified opioid-induced disorder (3) Stimulant use disorder: Status: Acute Code(s): F15.90 - Other stimulant use, unspecified, uncomplicated Plan Sukhwinder is a 46 y.o. Male who carries a dx of polysubstance abuse, MDD recurrent with psychotic features. He presented to [facility] on [place]/[facility]/2021 due SI with plan to stab himself, depression, and CAH telling him he should kill himself, poor sleep/ appetite. Precipitating factors include relapse on substances with daily opiate abuse, med non-adherence x 2 weeks, and chronic homelessness. Hx of multiple detox and inpatient admissions, hx of not following through with outpatient referrals. Last admitted [place] [facility] in 11/2020. Utox positive for opiates, fentanyl, cocaine, amphetamines, and cannabis. 12/18 depressed, intermittent SI; AH subsiding. In withdrawal and on CIWA. For right now patient agrees to leave medication doses where they are, specifically Wellbutrin and Abilify and to reassess once he is through withdrawal. House Officer discussed with patient that symptom reduction is only consistently possible if patient pursue sobriety and engages in therapy to which he agrees. 12/19/2021: No changes to current treatment plan. Maintain CIWA with Ativan for withdrawals. May consider increasing Abilify. Will review tomorrow 12/20/21: increase seroquel to 200mg as very poor sleep and patient preferred night meds increased versus abilify 12/21 mood is a little better, SI diminished; has passive intermittent SI however this is chronic. Wants gabapentin put back to 600 t.i.d. saying that he needs this for neuropathy. Although this medication carries risks especially when combined with substance abuse, patient has been on this medication for years; lowering dose at this point increase his risk for worsened neuropathic pain which is a trigger for patient's relapse. At this time, technical document writer considers the potential benefit outweighs the potential risk and agrees to increase gabapentin back to 600 mg; this is still a reduced dose from his past dosing at 100 mg t.i.d. 12/22 patient reports mood is better still; still depressed but no SI. Hoping to get into a substance abuse treatment program but understands this may not be available and he'll and of going to a group home. Patient is close to or at baseline. 12/23 patient is polite and expressing gratitude for help received.? He reports that he remains doing better; says has intermittent passive SI which he says is chronic and normal for him.? AH is very minimal and able to be ignored.? Still focused on getting into a program. 12/24, patient remains doing better and feels he is back to his regular self. Still focused on program 12/25; remains stable 12/27/2021: continue current treatment plan. 12/29 patient reports good mood and is with a significantly brighter affect; also much more social in the milieu. Hopeful about getting into a program but accepts will go to a group home if not Plan: Q15 min safety checks, CV change to regular diet at pt's request. GAbapentin 600mg TID Abilify increased to 10mg Seroquel was increased to 200mg for insomnia Otherwise home meds were continued -consider restarting SSRI/ SNRI, as pt has hx of being stable on zoloft; however both Abilify and Seroquel were increased. Consistent stability requires sobriety and engagement with outpatient treatment, something patient has struggled to commit to; perhaps it is best at this time to not add another medication and avoid polypharmacy until patient is able/willing to engage with outpatient treatment Monitor response to medications. Monitor for safety in the milieu. Discharge on stabilization. Patient seen. Chart reviewed. Discussed with team. Obtain collateral contact info?as needed I spent minutes with the patient and/or on the patient floor today, greater than?50% of which was spent counseling/coordinating care. Patient educated on: diagnosis Reason for contiued inpatient stay Substantial Risk for: stable for discharge
[2021-12-30 05:38] VITALS: BP 135/87; PULSE 67; RESP 14; TEMP 37.1; O2SAT 98
[2021-12-30] MEDS: Omeprazole 20 MG CAPSULE.DR PO (06:31)
[2021-12-30 08:12] LABS: Glucose, Whole Blood 104 mg/dL (60-115)
[2021-12-30] MEDS: Multivitamin TABLET 1 TAB PO (09:33)
[2021-12-30] MEDS: metFORMIN HCl 500 MG TABLET PO ×2 (09:33→17:51)
[2021-12-30] MEDS: buPROPion HCl XL 150 MG TAB.ER.24H 450 MG PO (09:33)
[2021-12-30] MEDS: amLODIPine Besylate 10 MG TABLET PO (09:33)
[2021-12-30] MEDS: ARIPiprazole 10 MG TABLET PO (09:33)
[2021-12-30] MEDS: Buprenorphine/Naloxone 8/2 mg FILM 1 FILM SUBLINGUAL ×3 (09:33→21:19)
[2021-12-30] MEDS: Gabapentin 300 MG CAPSULE 600 MG PO ×3 (09:33→21:19)
[2021-12-30] MEDS: Nicotine 21 MG PATCH.TD24 TRANSDERMA (09:36)
[2021-12-30 12:14] LABS: Glucose, Whole Blood 95 mg/dL (60-115)
[2021-12-30 17:04] LABS: Glucose, Whole Blood 166 mg/dL (60-115)
[2021-12-30 17:40] VITALS: BP 127/73; PULSE 83; TEMP 36.5
--- NOTE | 2021-12-30 18:21 | P.PNPSI_ITS ---
Subjective Subjective Date of Service: 12/30/21 Reason For Visit: Depression w psychosis, polysubstance abuse Interim History: Patient says he has good; denies any complaints or problems; medications working, remains more social in milieu and with brighter affect Mental Status Exam Mental Status Exam Narrative: Pt is alert and oriented; behavior is cooperative, calm, friendly; patient is not in distress; dressed in casual attire, appropriately groomed and with adequate hygiene; mood is described as good and affect congruent brighter, calm; eye contact adequate; Speech is normal rate but a little soft in volume; normal prosody and not pressured; no psychomotor retardation; thought process is organized and goal directed; Thought content is on tx, post discharge plans, wanting to get into a substance abuse program; otherwise pertinent to relevant topics and without any delusional content, paranoid ideations or grandiosity; intermittent, passive SI (chronic), no plans/intention; no HI. minimal, intermittent AH, able to ignore. Patients insight and judgment are fair. Diagnostics Vital Signs (24Hr): Vital Signs - 24 hr 12/30/21 05:38 Temperature 98.7 F Pulse Rate 67 Respiratory Rate 14 Blood Pressure 135/87 Pulse Oximetry 98 Oxygen Delivery Method Room Air BMI result Body Mass Index 23.2 Labs Results: 12/16/21 11:56 12/31/21 07:56 Labs: Laboratory Results - last 48 hr 12/28/21 12/29/21 12/29/21 21:01 07:56 10:23 POC Glucose 151 H 82 120 H 12/29/21 12/29/21 12/30/21 17:02 20:53 08:08 POC Glucose 123 H 87 104 12/30/21 12/30/21 12:10 16:57 POC Glucose 95 166 H Medications Medications Current Medications Acetaminophen (Acetaminophen 325 Mg Tablet) 650 mg PO Q6H PRN PRN Reason: Headache/Pain Mild Scale (1-3) Al Hydroxide/Mg Hydroxide (Magnesium Hydrox/Alum Hydrox 30 Ml Oral.Susp) 30 ml PO Q6H PRN PRN Reason: Heartburn/Nausea Amlodipine Besylate (Amlodipine Besylate 10 Mg Tablet) 10 mg PO DAILY [facility]; Protocol Last Admin: 12/30/21 09:33 Dose: 10 mg Aripiprazole (Aripiprazole 10 Mg Tablet) 10 mg PO DAILY [facility] Last Admin: 12/30/21 09:33 Dose: 10 mg Buprenorphine/Naloxone (Buprenorphine/Naloxone 8/2 Mg Film) 1 film SUBLINGUAL TID [facility] Last Admin: 12/30/21 14:05 Dose: 1 film Bupropion HCl (Bupropion Hcl Xl 150 Mg Tab.Er.24h) 450 mg PO DAILY [facility] Last Admin: 12/30/21 09:33 Dose: 450 mg Clonidine HCl (Clonidine Hcl 0.1 Mg Tablet) 0.1 mg PO TID PRN; Protocol PRN Reason: hyperarousal, withdrawal, anxiety Docusate Sodium (Docusate Sodium 100 Mg Capsule) 100 mg PO BID PRN PRN Reason: constipation Gabapentin (Gabapentin 300 Mg Capsule) 600 mg PO TID [facility] Last Admin: 12/30/21 14:04 Dose: 600 mg Hydroxyzine HCl (Hydroxyzine Hcl 50 Mg Tablet) 50 mg PO Q6H PRN PRN Reason: Anxiety Ibuprofen (Ibuprofen 400 Mg Tablet) 400 mg PO Q6H PRN PRN Reason: mod pain Last Admin: 12/26/21 09:18 Dose: 400 mg Insulin Glargine (Insulin Glargine,Hum.Rec.Anlog 100 Unit/Ml 10 Ml Vial) 70 unit SUBCUT BEDTIME [facility] Last Admin: 12/29/21 21:24 Dose: 70 unit Insulin Human Lispro (Insulin Lispro 100 Unit/Ml 3 Ml Vial) 0 unit SUBCUT QIDACHS [facility]; Protocol Last Admin: 12/30/21 17:53 Dose: Not Given Magnesium Hydroxide (Milk Of Magnesia 30 Ml Oral.Susp) 30 ml PO DAILY PRN PRN Reason: Constipation Metformin HCl (Metformin Hcl 500 Mg Tablet) 500 mg PO BIDWM [facility] Last Admin: 12/30/21 17:51 Dose: 500 mg Multivitamins/Vitamin C (Multivitamin Tablet) 1 tab PO DAILY [facility] Last Admin: 12/30/21 09:33 Dose: 1 tab Nicotine (Nicotine 21 Mg Patch.Td24) 21 mg TRANSDERMA DAILY [facility] Last Admin: 12/30/21 09:36 Dose: 21 mg Omeprazole (Omeprazole 20 Mg Capsule.Dr) 20 mg PO DAILY@0630 [facility] Last Admin: 12/30/21 06:31 Dose: 20 mg Quetiapine Fumarate (Quetiapine Fumarate 200 Mg Tablet) 200 mg PO BEDTIME [facility] Last Admin: 12/29/21 21:25 Dose: 200 mg Trazodone HCl (Trazodone Hcl 50 Mg Tablet) 150 mg PO BEDTIME [facility] Last Admin: 12/29/21 21:26 Dose: 150 mg Allergies Allergies Allergy/AdvReac Type Severity Reaction Status Date / Time levofloxacin [From Levaquin] Allergy Intermediate rash Verified 11/21/20 20:44 Assessment & Plan Assessment & Plan (1) MDD (major depressive disorder), recurrent, severe, with psychosis: Status: Acute Code(s): F33.3 - Major depressive disorder, recurrent, severe with psychotic symptoms (2) Opioid use disorder: Status: Acute Code(s): F11.99 - Opioid use, unspecified with unspecified opioid-induced disorder (3) Stimulant use disorder: Status: Acute Code(s): F15.90 - Other stimulant use, unspecified, uncomplicated Plan Sukhwinder is a 46 y.o. Male who carries a dx of polysubstance abuse, MDD recurrent with psychotic features. He presented to [facility] [place]21 due SI with plan to stab himself, depression, and CAH telling him he should kill himself, poor sleep/ appetite. Precipitating factors include relapse on substances with daily opiate abuse, med non-adherence x 2 weeks, and chronic homelessness. Hx of multiple detox and inpatient admissions, hx of not following through with outpatient referrals. Last admitted to [facility] in 11/2020. Utox positive for opiates, fentanyl, cocaine, amphetamines, and cannabis. 12/18 depressed, intermittent SI; AH subsiding. In withdrawal and on CIWA. For right now patient agrees to leave medication doses where they are, specifically Wellbutrin and Abilify and to reassess once he is through withdrawal. Emergency Detail Driver discussed with patient that symptom reduction is only consistently possible if patient pursue sobriety and engages in therapy to which he agrees. 12/19/2021: No changes to current treatment plan. Maintain CIWA with Ativan for withdrawals. May consider increasing Abilify. Will review tomorrow 12/20/21: increase seroquel to 200mg as very poor sleep and patient preferred night meds increased versus abilify 12/21 mood is a little better, SI diminished; has passive intermittent SI however this is chronic. Wants gabapentin put back to 600 t.i.d. saying that he needs this for neuropathy. Although this medication carries risks especially when combined with substance abuse, patient has been on this medication for years; lowering dose at this point increase his risk for worsened neuropathic pain which is a trigger for patient's relapse. At this time, auto service writer considers the potential benefit outweighs the potential risk and agrees to increase gabapentin back to 600 mg; this is still a reduced dose from his past dosing at 100 mg t.i.d. 12/22 patient reports mood is better still; still depressed but no SI. Hoping to get into a substance abuse treatment program but understands this may not be available and he'll and of going to a senior care. Patient is close to or at baseline. 12/23 patient is polite and expressing gratitude for help received.? He reports that he remains doing better; says has intermittent passive SI which he says is chronic and normal for him.? AH is very minimal and able to be ignored.? Still focused on getting into a program. 12/24, patient remains doing better and feels he is back to his regular self. Still focused on program 12/25; remains stable 12/27/2021: continue current treatment plan. 12/28 remains stable, improved mood, hopeful. Patient's blood sugar levels have remained stable and he has not needed sliding scale very much, with only 1 value over 200 on 12/26 12/29 patient reports good mood and is with a significantly brighter affect; also much more social in the milieu.? Hopeful about getting into a program but accepts will go to a senior care if not Plan:? Q15 min safety checks, CV change to regular diet at pt's request. GAbapentin 600mg TID for neuropathy Abilify increased to 10mg Seroquel was increased to 200mg for insomnia Otherwise home meds were continued Monitor response to medications. Monitor for safety in the milieu. Discharge on stabilization. Patient seen. Chart reviewed. Discussed with team. Obtain collateral contact info?as needed I spent minutes with the patient and/or on the patient floor today, greater than?50% of which was spent counseling/coordinating care. Reason for contiued inpatient stay Substantial Risk for: stable for discharge
[2021-12-30 21:08] LABS: Glucose, Whole Blood 92 mg/dL (60-115)
[2021-12-30] MEDS: Insulin Glargine,Hum.rec.anlog 100 UNIT/ML 10 ML VIAL 70 UNIT SUBCUT (21:18)
[2021-12-30] MEDS: traZODone HCL 50 MG TABLET 150 MG PO (21:20)
[2021-12-30] MEDS: QUEtiapine Fumarate 200 MG TABLET PO (21:20)
[2021-12-31 07:00] VITALS: BMI 23.5
[2021-12-31 08:53] LABS: Anion Gap 12 (12-20); Blood Urea Nitrogen 8 mg/dL (9-16); Calcium 9.1 mg/dL (8.4-10.2); Carbon Dioxide 31 mmol/L (22-29); Chloride 101 mmol/L (96-108); Estimated Glomerular Filt Rate > 60; Glucose Random 106 mg/dL (60-115); Potassium 4.1 mmol/L (3.3-5.1); Sodium 140 mmol/L (135-145)
[2021-12-31] MEDS: Gabapentin 300 MG CAPSULE 600 MG PO ×3 (09:24→20:19)
[2021-12-31] MEDS: Omeprazole 20 MG CAPSULE.DR PO (09:25)
[2021-12-31] MEDS: Buprenorphine/Naloxone 8/2 mg FILM 1 FILM SUBLINGUAL ×3 (09:25→20:20)
[2021-12-31] MEDS: buPROPion HCl XL 150 MG TAB.ER.24H 450 MG PO (09:25)
[2021-12-31] MEDS: Multivitamin TABLET 1 TAB PO (09:25)
[2021-12-31] MEDS: amLODIPine Besylate 10 MG TABLET PO (09:25)
[2021-12-31] MEDS: ARIPiprazole 10 MG TABLET PO (09:25)
[2021-12-31] MEDS: metFORMIN HCl 500 MG TABLET PO ×2 (09:25→17:01)
[2021-12-31] MEDS: Nicotine 21 MG PATCH.TD24 TRANSDERMA (09:27)
[2021-12-31 09:28] VITALS: BP 122/78; PULSE 76; RESP 18; TEMP 36.6; O2SAT 99
[2021-12-31 11:51] LABS: Glucose, Whole Blood 100 mg/dL (60-115)
--- NOTE | 2021-12-31 15:34 | HO.PSYCHPN ---
Subjective Subjective Date of Service: 12/31/21 Reason For Visit: Depression w psychosis, polysubstance abuse Interim History: Patient reports good mood; says he looked up another program and call them to see if it was available. Commercial Fishing Vessel Operator agreed to show this to group social worker. Discussed history of diabetes and how his blood sugars are doing pretty well; patient said that he lost about 100 lb over the past several months living on the streets and doing drugs. He is grateful that he has not needed much sliding scale. He wants to keep it on board however just in case because he knows his hemoglobin A1c is back to normal and wants to keep it that way. Patient expresses that he is thankful for help received on the unit. Mental Status Exam Mental Status Exam Narrative: Pt is alert and oriented; behavior is cooperative, calm, friendly; patient is not in distress; dressed in casual attire, appropriately groomed and with adequate hygiene; mood is described as good and affect congruent brighter, calm; eye contact adequate; Speech is normal rate but a little soft in volume; normal prosody and not pressured; no psychomotor retardation; thought process is organized and goal directed; Thought content is on tx, post discharge plans, wanting to get into a substance abuse program; otherwise pertinent to relevant topics and without any delusional content, paranoid ideations or grandiosity; intermittent, passive SI (chronic), no plans/intention; no HI. minimal, intermittent AH, able to ignore. Patients insight and judgment are fair. Diagnostics Vital Signs (24Hr): Vital Signs - 24 hr 12/31/21 09:28 12/31/21 18:00 Temperature 97.8 F 98.2 F Pulse Rate 76 89 Respiratory Rate 18 Blood Pressure 122/78 127/79 Pulse Oximetry 99 97 Oxygen Delivery Method Room Air Room Air BMI result Body Mass Index 23.5 Labs Results: 12/16/21 11:56 12/31/21 07:56 Labs: Laboratory Results - last 48 hr 12/30/21 12/30/21 12/30/21 12:10 16:57 20:57 Sodium Potassium Chloride Carbon Dioxide Anion Gap BUN Creatinine Estim Creat Clear Calc Estimated GFR POC Glucose 95 166 H 92 Random Glucose Calcium 12/31/21 12/31/21 12/31/21 07:56 11:48 16:32 Sodium 140 Potassium 4.1 Chloride 101 Carbon Dioxide 31 H Anion Gap 12 BUN 8 L Creatinine 0.70 Estim Creat Clear Calc 152.0 Estimated GFR > 60 POC Glucose 100 69 Random Glucose 106 Calcium 9.1 12/31/21 01/01/22 20:23 08:17 Sodium Potassium Chloride Carbon Dioxide Anion Gap BUN Creatinine Estim Creat Clear Calc Estimated GFR POC Glucose 126 H 101 Random Glucose Calcium Medications Medications Current Medications Acetaminophen (Acetaminophen 325 Mg Tablet) 650 mg PO Q6H PRN PRN Reason: Headache/Pain Mild Scale (1-3) Al Hydroxide/Mg Hydroxide (Magnesium Hydrox/Alum Hydrox 30 Ml Oral.Susp) 30 ml PO Q6H PRN PRN Reason: Heartburn/Nausea Amlodipine Besylate (Amlodipine Besylate 10 Mg Tablet) 10 mg PO DAILY [facility]; Protocol Last Admin: 12/31/21 09:25 Dose: 10 mg Aripiprazole (Aripiprazole 10 Mg Tablet) 10 mg PO DAILY [facility] Last Admin: 12/31/21 09:25 Dose: 10 mg Buprenorphine/Naloxone (Buprenorphine/Naloxone 8/2 Mg Film) 1 film SUBLINGUAL TID [facility] Last Admin: 12/31/21 20:20 Dose: 1 film Bupropion HCl (Bupropion Hcl Xl 150 Mg Tab.Er.24h) 450 mg PO DAILY [facility] Last Admin: 12/31/21 09:25 Dose: 450 mg Clonidine HCl (Clonidine Hcl 0.1 Mg Tablet) 0.1 mg PO TID PRN; Protocol PRN Reason: hyperarousal, withdrawal, anxiety Docusate Sodium (Docusate Sodium 100 Mg Capsule) 100 mg PO BID PRN PRN Reason: constipation Gabapentin (Gabapentin 300 Mg Capsule) 600 mg PO TID [facility] Last Admin: 12/31/21 20:19 Dose: 600 mg Hydroxyzine HCl (Hydroxyzine Hcl 50 Mg Tablet) 50 mg PO Q6H PRN PRN Reason: Anxiety Ibuprofen (Ibuprofen 400 Mg Tablet) 400 mg PO Q6H PRN PRN Reason: mod pain Last Admin: 12/26/21 09:18 Dose: 400 mg Insulin Glargine (Insulin Glargine,Hum.Rec.Anlog 100 Unit/Ml 10 Ml Vial) 70 unit SUBCUT BEDTIME [facility] Last Admin: 12/31/21 20:20 Dose: 70 unit Insulin Human Lispro (Insulin Lispro 100 Unit/Ml 3 Ml Vial) 0 unit SUBCUT QIDACHS [facility]; Protocol Last Admin: 12/31/21 20:36 Dose: Not Given Magnesium Hydroxide (Milk Of Magnesia 30 Ml Oral.Susp) 30 ml PO DAILY PRN PRN Reason: Constipation Metformin HCl (Metformin Hcl 500 Mg Tablet) 500 mg PO BIDWM [facility] Last Admin: 12/31/21 17:01 Dose: 500 mg Multivitamins/Vitamin C (Multivitamin Tablet) 1 tab PO DAILY [facility] Last Admin: 12/31/21 09:25 Dose: 1 tab Nicotine (Nicotine 21 Mg Patch.Td24) 21 mg TRANSDERMA DAILY [facility] Last Admin: 12/31/21 09:27 Dose: 21 mg Omeprazole (Omeprazole 20 Mg Capsule.Dr) 20 mg PO DAILY@0630 [facility] Last Admin: 01/01/22 06:41 Dose: 20 mg Quetiapine Fumarate (Quetiapine Fumarate 200 Mg Tablet) 200 mg PO BEDTIME [facility] Last Admin: 12/31/21 20:20 Dose: 200 mg Trazodone HCl (Trazodone Hcl 50 Mg Tablet) 150 mg PO BEDTIME [facility] Last Admin: 12/31/21 20:20 Dose: 150 mg Allergies Allergies Allergy/AdvReac Type Severity Reaction Status Date / Time levofloxacin [From Levaquin] Allergy Intermediate rash Verified 11/21/20 20:44 Assessment & Plan Assessment & Plan (1) MDD (major depressive disorder), recurrent, severe, with psychosis: Status: Acute Code(s): F33.3 - Major depressive disorder, recurrent, severe with psychotic symptoms (2) Opioid use disorder: Status: Acute Code(s): F11.99 - Opioid use, unspecified with unspecified opioid-induced disorder (3) Stimulant use disorder: Status: Acute Code(s): F15.90 - Other stimulant use, unspecified, uncomplicated Plan Sukhwinder is a 46 y.o. Male who carries a dx of polysubstance abuse, MDD recurrent with psychotic features. He presented to [facility] on 12/16/2021 due SI with plan to stab himself, depression, and CAH telling him he should kill himself, poor sleep/ appetite. Precipitating factors include relapse on substances with daily opiate abuse, med non-adherence x 2 weeks, and chronic homelessness. Hx of multiple detox and inpatient admissions, hx of not following through with outpatient referrals. Last admitted to [facility] M5 in 11/2020. Utox positive for opiates, fentanyl, cocaine, amphetamines, and cannabis. 12/18 depressed, intermittent SI; AH subsiding. In withdrawal and on CIWA. For right now patient agrees to leave medication doses where they are, specifically Wellbutrin and Abilify and to reassess once he is through withdrawal. Commercial Fishing Vessel Operator discussed with patient that symptom reduction is only consistently possible if patient pursue sobriety and engages in therapy to which he agrees. 12/19/2021: No changes to current treatment plan. Maintain CIWA with Ativan for withdrawals. May consider increasing Abilify. Will review tomorrow 12/20/21: increase seroquel to 200mg as very poor sleep and patient preferred night meds increased versus abilify 12/21 mood is a little better, SI diminished; has passive intermittent SI however this is chronic. Wants gabapentin put back to 600 t.i.d. saying that he needs this for neuropathy. Although this medication carries risks especially when combined with substance abuse, patient has been on this medication for years; lowering dose at this point increase his risk for worsened neuropathic pain which is a trigger for patient's relapse. At this time, scenario writer considers the potential benefit outweighs the potential risk and agrees to increase gabapentin back to 600 mg; this is still a reduced dose from his past dosing at 100 mg t.i.d. 12/22 patient reports mood is better still; still depressed but no SI. Hoping to get into a substance abuse treatment program but understands this may not be available and he'll and of going to a senior living. Patient is close to or at baseline. 12/23 patient is polite and expressing gratitude for help received.? He reports that he remains doing better; says has intermittent passive SI which he says is chronic and normal for him.? AH is very minimal and able to be ignored.? Still focused on getting into a program. 12/24, patient remains doing better and feels he is back to his regular self. Still focused on program 12/25; remains stable 12/27/2021: continue current treatment plan. 12/28 remains stable, improved mood, hopeful. Patient's blood sugar levels have remained stable and he has not needed sliding scale very much, with only 1 value over 200 on 12/26 12/29 patient reports good mood and is with a significantly brighter affect; also much more social in the milieu.? Hopeful about getting into a program but accepts will go to a senior living if not 12/31 remains good mood and hopeful; calling programs on his own. Discussed diabetes and patient says his sugars have return to close to normal since he lost 100 lb over the past few months due to not eating since he was engaged in excessive drug use Plan:? Q15 min safety checks, CV change to regular diet at pt's request. GAbapentin 600mg TID for neuropathy Abilify increased to 10mg Seroquel was increased to 200mg for insomnia Continue with sliding scale insulin; patient's A1c has returned to nearly normal and he seldom needs sliding scale however he wants to keep it on board just in case as he is grateful that his sugars have significantly improved. Otherwise home meds were continued Monitor response to medications. Monitor for safety in the milieu. Discharge on stabilization. Patient seen. Chart reviewed. Discussed with team. Obtain collateral contact info?as needed I spent minutes with the patient and/or on the patient floor today, greater than?50% of which was spent counseling/coordinating care. Patient educated on: diagnosis, substance abuse and medical condition Informed Consent: understands Reason for contiued inpatient stay Substantial Risk for: stable for discharge
[2021-12-31 16:36] LABS: Glucose, Whole Blood 69 mg/dL (60-115)
[2021-12-31 18:00] VITALS: BP 127/79; PULSE 89; TEMP 36.8; O2SAT 97
[2021-12-31] MEDS: Insulin Glargine,Hum.rec.anlog 100 UNIT/ML 10 ML VIAL 70 UNIT SUBCUT (20:20)
[2021-12-31] MEDS: QUEtiapine Fumarate 200 MG TABLET PO (20:20)
[2021-12-31] MEDS: traZODone HCL 50 MG TABLET 150 MG PO (20:20)
[2021-12-31 21:44] LABS: Glucose, Whole Blood 126 mg/dL (60-115)
[2022-01-01] MEDS: Omeprazole 20 MG CAPSULE.DR PO (06:41)
[2022-01-01 08:22] LABS: Glucose, Whole Blood 101 mg/dL (60-115)
[2022-01-01] MEDS: Gabapentin 300 MG CAPSULE 600 MG PO ×3 (09:02→21:56)
[2022-01-01] MEDS: metFORMIN HCl 500 MG TABLET PO ×2 (09:03→17:00)
[2022-01-01] MEDS: ARIPiprazole 10 MG TABLET PO (09:03)
[2022-01-01] MEDS: buPROPion HCl XL 150 MG TAB.ER.24H 450 MG PO (09:03)
[2022-01-01] MEDS: amLODIPine Besylate 10 MG TABLET PO (09:03)
[2022-01-01] MEDS: Nicotine 21 MG PATCH.TD24 TRANSDERMA (09:03)
[2022-01-01] MEDS: Buprenorphine/Naloxone 8/2 mg FILM 1 FILM SUBLINGUAL ×3 (09:03→21:55)
[2022-01-01] MEDS: Multivitamin TABLET 1 TAB PO (09:03)
[2022-01-01 09:07] VITALS: BP 137/88; PULSE 79; RESP 18; TEMP 36.1; O2SAT 99
[2022-01-01 12:06] LABS: Glucose, Whole Blood 84 mg/dL (60-115)
[2022-01-01 17:15] LABS: Glucose, Whole Blood 149 mg/dL (60-115)
[2022-01-01 18:00] VITALS: BP 128/79; PULSE 75; RESP 16; TEMP 36.3; O2SAT 98
--- NOTE | 2022-01-01 18:01 | P.PNPSI_ITS ---
Subjective Subjective Date of Service: 01/01/22 Reason For Visit: Depression w psychosis, polysubstance abuse Interim History: Patient remains in good mood, no complaints and no requests. He is grateful to be able to remain on the unit hoping to get into a program. Ditch Tender agrees that this is a good plan and that going to a long-term would put him at high risk for relapse. No SI. Social in the milieu Mental Status Exam Mental Status Exam Narrative: Pt is alert and oriented; behavior is cooperative, calm, friendly; patient is not in distress; dressed in casual attire, appropriately groomed and with adequate hygiene; mood is described as good and affect congruent brighter, calm; eye contact adequate; Speech is normal rate but a little soft in volume; normal prosody and not pressured; no psychomotor retardation; thought process is organized and goal directed; Thought content is on tx, post discharge plans, wanting to get into a substance abuse program; otherwise pertinent to relevant topics and without any delusional content, paranoid ideations or grandiosity; intermittent, passive SI (chronic), no plans/intention; no HI. minimal, intermittent AH, able to ignore. Patients insight and judgment are fair. Diagnostics Vital Signs (24Hr): Vital Signs - 24 hr 01/01/22 09:07 Temperature 96.9 F Pulse Rate 79 Respiratory Rate 18 Blood Pressure 137/88 Pulse Oximetry 99 Oxygen Delivery Method Room Air BMI result Body Mass Index 23.5 Labs Results: 12/16/21 11:56 12/31/21 07:56 Labs: Laboratory Results - last 48 hr 12/30/21 12/31/21 12/31/21 20:57 07:56 11:48 Sodium 140 Potassium 4.1 Chloride 101 Carbon Dioxide 31 H Anion Gap 12 BUN 8 L Creatinine 0.70 Estim Creat Clear Calc 152.0 Estimated GFR > 60 POC Glucose 92 100 Random Glucose 106 Calcium 9.1 12/31/21 12/31/21 01/01/22 16:32 20:23 08:17 Sodium Potassium Chloride Carbon Dioxide Anion Gap BUN Creatinine Estim Creat Clear Calc Estimated GFR POC Glucose 69 126 H 101 Random Glucose Calcium 01/01/22 01/01/22 12:03 17:11 Sodium Potassium Chloride Carbon Dioxide Anion Gap BUN Creatinine Estim Creat Clear Calc Estimated GFR POC Glucose 84 149 H Random Glucose Calcium Medications Medications Current Medications Acetaminophen (Acetaminophen 325 Mg Tablet) 650 mg PO Q6H PRN PRN Reason: Headache/Pain Mild Scale (1-3) Al Hydroxide/Mg Hydroxide (Magnesium Hydrox/Alum Hydrox 30 Ml Oral.Susp) 30 ml PO Q6H PRN PRN Reason: Heartburn/Nausea Amlodipine Besylate (Amlodipine Besylate 10 Mg Tablet) 10 mg PO DAILY [facility]; Protocol Last Admin: 01/01/22 09:03 Dose: 10 mg Aripiprazole (Aripiprazole 10 Mg Tablet) 10 mg PO DAILY [facility] Last Admin: 01/01/22 09:03 Dose: 10 mg Buprenorphine/Naloxone (Buprenorphine/Naloxone 8/2 Mg Film) 1 film SUBLINGUAL TID [facility] Last Admin: 01/01/22 14:10 Dose: 1 film Bupropion HCl (Bupropion Hcl Xl 150 Mg Tab.Er.24h) 450 mg PO DAILY [facility] Last Admin: 01/01/22 09:03 Dose: 450 mg Clonidine HCl (Clonidine Hcl 0.1 Mg Tablet) 0.1 mg PO TID PRN; Protocol PRN Reason: hyperarousal, withdrawal, anxiety Docusate Sodium (Docusate Sodium 100 Mg Capsule) 100 mg PO BID PRN PRN Reason: constipation Gabapentin (Gabapentin 300 Mg Capsule) 600 mg PO TID [facility] Last Admin: 01/01/22 14:10 Dose: 600 mg Hydroxyzine HCl (Hydroxyzine Hcl 50 Mg Tablet) 50 mg PO Q6H PRN PRN Reason: Anxiety Ibuprofen (Ibuprofen 400 Mg Tablet) 400 mg PO Q6H PRN PRN Reason: mod pain Last Admin: 12/26/21 09:18 Dose: 400 mg Insulin Glargine (Insulin Glargine,Hum.Rec.Anlog 100 Unit/Ml 10 Ml Vial) 70 unit SUBCUT BEDTIME [facility] Last Admin: 12/31/21 20:20 Dose: 70 unit Insulin Human Lispro (Insulin Lispro 100 Unit/Ml 3 Ml Vial) 0 unit SUBCUT QIDACHS [facility]; Protocol Last Admin: 01/01/22 17:38 Dose: Not Given Magnesium Hydroxide (Milk Of Magnesia 30 Ml Oral.Susp) 30 ml PO DAILY PRN PRN Reason: Constipation Metformin HCl (Metformin Hcl 500 Mg Tablet) 500 mg PO BIDWM [facility] Last Admin: 01/01/22 09:03 Dose: 500 mg Multivitamins/Vitamin C (Multivitamin Tablet) 1 tab PO DAILY [facility] Last Admin: 01/01/22 09:03 Dose: 1 tab Nicotine (Nicotine 21 Mg Patch.Td24) 21 mg TRANSDERMA DAILY [facility] Last Admin: 01/01/22 09:03 Dose: 21 mg Omeprazole (Omeprazole 20 Mg Capsule.Dr) 20 mg PO DAILY@0630 [facility] Last Admin: 01/01/22 06:41 Dose: 20 mg Quetiapine Fumarate (Quetiapine Fumarate 200 Mg Tablet) 200 mg PO BEDTIME [facility] Last Admin: 12/31/21 20:20 Dose: 200 mg Trazodone HCl (Trazodone Hcl 50 Mg Tablet) 150 mg PO BEDTIME [facility] Last Admin: 12/31/21 20:20 Dose: 150 mg Allergies Allergies Allergy/AdvReac Type Severity Reaction Status Date / Time levofloxacin [From Levaquin] Allergy Intermediate rash Verified 11/21/20 20:44 Assessment & Plan Assessment & Plan (1) MDD (major depressive disorder), recurrent, severe, with psychosis: Status: Acute Code(s): F33.3 - Major depressive disorder, recurrent, severe with psychotic symptoms (2) Opioid use disorder: Status: Acute Code(s): F11.99 - Opioid use, unspecified with unspecified opioid-induced disorder (3) Stimulant use disorder: Status: Acute Code(s): F15.90 - Other stimulant use, unspecified, uncomplicated Plan Sukhwinder is a 46 y.o. Male who carries a dx of polysubstance abuse, MDD recurrent with psychotic features. He presented to [facility] ED on 12/16/2021 due SI with plan to stab himself, depression, and CAH telling him he should kill himself, poor sleep/ appetite. Precipitating factors include relapse on substances with daily opiate abuse, med non-adherence x 2 weeks, and chronic homelessness. Hx of multiple detox and inpatient admissions, hx of not following through with outpatient referrals. Last admitted to [facility] M5 in 11/2020. Utox positive for opiates, fentanyl, cocaine, amphetamines, and cannabis. 12/18 depressed, intermittent SI; AH subsiding. In withdrawal and on CIWA. For right now patient agrees to leave medication doses where they are, specifically Wellbutrin and Abilify and to reassess once he is through withdrawal. Ditch Tender discussed with patient that symptom reduction is only consistently possible if patient pursue sobriety and engages in therapy to which he agrees. 12/19/2021: No changes to current treatment plan. Maintain CIWA with Ativan for withdrawals. May consider increasing Abilify. Will review tomorrow 12/20/21: increase seroquel to 200mg as very poor sleep and patient preferred night meds increased versus abilify 12/21 mood is a little better, SI diminished; has passive intermittent SI however this is chronic. Wants gabapentin put back to 600 t.i.d. saying that he needs this for neuropathy. Although this medication carries risks especially when combined with substance abuse, patient has been on this medication for years; lowering dose at this point increase his risk for worsened neuropathic pain which is a trigger for patient's relapse. At this time, scenario writer considers the po tential benefit outweighs the potential risk and agrees to increase gabapentin back to 600 mg; this is still a reduced dose from his past dosing at 100 mg t.i.d. 12/22 patient reports mood is better still; still depressed but no SI. Hoping to get into a substance abuse treatment program but understands this may not be available and he'll and of going to a long-term. Patient is close to or at [facility]. 12/23 patient is polite and expressing gratitude for help received.? He reports that he remains doing better; says has intermittent passive SI which he says is chronic and normal for him.? AH is very minimal and able to be ignored.? Still focused on getting into a program. 12/24, patient remains doing better and feels he is back to his regular self. Still focused on program 12/25; remains stable 12/27/2021: continue current treatment plan. 12/28 remains stable, improved mood, hopeful. Patient's blood sugar levels have remained stable and he has not needed sliding scale very much, with only 1 value over 200 on 12/26 12/29 patient reports good mood and is with a significantly brighter affect; also much more social in the milieu.? Hopeful about getting into a program but accepts will go to a long-term if not 12/31 remains good mood and hopeful; calling programs on his own. Discussed diabetes and patient says his sugars have return to close to normal since he lost 100 lb over the past few months due to not eating since he was engaged in excessive drug use 01/01 patient is doing well however scenario writer agrees that discharging to a long-term puts him at high risk for relapse. Patient understands this risk and also understands it may be his only option however he remains hopeful to get into a program. Mood remains good, no SI. Plan:? Q15 min safety checks, CV change to regular diet at pt's request. GAbapentin 600mg TID for neuropathy Abilify increased to 10mg Seroquel was increased to 200mg for insomnia Continue with sliding scale insulin; patient's A1c has returned to nearly normal and he seldom needs sliding scale however he wants to keep it on board just in case as he is grateful that his sugars have significantly improved. Otherwise home meds were continued Monitor response to medications. Monitor for safety in the milieu. Discharge on stabilization. Patient seen. Chart reviewed. Discussed with team. Obtain collateral contact info?as needed I spent minutes with the patient and/or on the patient floor today, greater than?50% of which was spent counseling/coordinating care. Patient educated on: diagnosis, substance abuse and medical condition Informed Consent: understands Reason for contiued inpatient stay Substantial Risk for: stable for discharge
[2022-01-01] MEDS: Insulin Glargine,Hum.rec.anlog 100 UNIT/ML 10 ML VIAL 70 UNIT SUBCUT (21:55)
[2022-01-01] MEDS: traZODone HCL 50 MG TABLET 150 MG PO (21:56)
[2022-01-01] MEDS: QUEtiapine Fumarate 200 MG TABLET PO (21:56)
[2022-01-01 22:05] LABS: Glucose, Whole Blood 108 mg/dL (60-115)
[2022-01-02 06:00] VITALS: BP 139/80; PULSE 80; RESP 18; TEMP 37.6; O2SAT 100
[2022-01-02] MEDS: Omeprazole 20 MG CAPSULE.DR PO (07:45)
[2022-01-02 07:57] LABS: Glucose, Whole Blood 69 mg/dL (60-115)
[2022-01-02] MEDS: Buprenorphine/Naloxone 8/2 mg FILM 1 FILM SUBLINGUAL ×3 (09:41→21:28)
[2022-01-02] MEDS: buPROPion HCl XL 150 MG TAB.ER.24H 450 MG PO (09:41)
[2022-01-02] MEDS: Nicotine 21 MG PATCH.TD24 TRANSDERMA (09:41)
[2022-01-02] MEDS: amLODIPine Besylate 10 MG TABLET PO (09:41)
[2022-01-02] MEDS: ARIPiprazole 10 MG TABLET PO (09:42)
[2022-01-02] MEDS: metFORMIN HCl 500 MG TABLET PO ×2 (09:42→16:56)
[2022-01-02] MEDS: Multivitamin TABLET 1 TAB PO (09:42)
[2022-01-02] MEDS: Gabapentin 300 MG CAPSULE 600 MG PO ×3 (09:42→21:28)
[2022-01-02 12:29] LABS: Glucose, Whole Blood 130 mg/dL (60-115)
--- NOTE | 2022-01-02 16:17 | P.PNPSI_ITS ---
Subjective Subjective Date of Service: 01/02/22 Reason For Visit: Depression w psychosis, polysubstance abuse Interim History: good mood, no SI; no complaints or requests. Pt says he's also anxious about whether he'll get into a program, but is grateful to get another lead he asks database report writer to look into. Mental Status Exam Mental Status Exam Narrative: Pt is alert and oriented; behavior is cooperative, calm, friendly; patient is not in distress; dressed in casual attire, appropriately groomed and with adequate hygiene; mood is described as good and affect congruent brighter, calm; eye contact adequate; Speech is normal rate but a little soft in volume; normal prosody and not pressured; no psychomotor retardation; thought process is organized and goal directed; Thought content is on tx, post discharge plans, wanting to get into a substance abuse program; otherwise pertinent to relevant topics and without any delusional content, paranoid ideations or grandiosity; intermittent, passive SI (chronic), no plans/intention; no HI. minimal, intermittent AH, able to ignore. Patients insight and judgment are fair. Diagnostics Vital Signs (24Hr): Vital Signs - 24 hr 01/01/22 18:00 01/02/22 06:00 Temperature 97.4 F 99.7 F Pulse Rate 75 80 Respiratory Rate 16 18 Blood Pressure 128/79 139/80 Pulse Oximetry 98 100 Oxygen Delivery Method Room Air Room Air BMI result Body Mass Index 23.5 Labs Results: 12/16/21 11:56 12/31/21 07:56 Labs: Laboratory Results - last 48 hr 12/31/21 12/31/21 01/01/22 16:32 20:23 08:17 POC Glucose 69 126 H 101 01/01/22 01/01/22 01/01/22 12:03 17:11 21:54 POC Glucose 84 149 H 108 01/02/22 01/02/22 07:52 12:25 POC Glucose 69 130 H Medications Medications Current Medications Acetaminophen (Acetaminophen 325 Mg Tablet) 650 mg PO Q6H PRN PRN Reason: Headache/Pain Mild Scale (1-3) Al Hydroxide/Mg Hydroxide (Magnesium Hydrox/Alum Hydrox 30 Ml Oral.Susp) 30 ml PO Q6H PRN PRN Reason: Heartburn/Nausea Amlodipine Besylate (Amlodipine Besylate 10 Mg Tablet) 10 mg PO DAILY [facility]; Protocol Last Admin: 01/02/22 09:41 Dose: 10 mg Aripiprazole (Aripiprazole 10 Mg Tablet) 10 mg PO DAILY [facility] Last Admin: 01/02/22 09:42 Dose: 10 mg Buprenorphine/Naloxone (Buprenorphine/Naloxone 8/2 Mg Film) 1 film SUBLINGUAL TID [facility] Last Admin: 01/02/22 16:12 Dose: 1 film Bupropion HCl (Bupropion Hcl Xl 150 Mg Tab.Er.24h) 450 mg PO DAILY [facility] Last Admin: 01/02/22 09:41 Dose: 450 mg Clonidine HCl (Clonidine Hcl 0.1 Mg Tablet) 0.1 mg PO TID PRN; Protocol PRN Reason: hyperarousal, withdrawal, anxiety Docusate Sodium (Docusate Sodium 100 Mg Capsule) 100 mg PO BID PRN PRN Reason: constipation Gabapentin (Gabapentin 300 Mg Capsule) 600 mg PO TID [facility] Last Admin: 01/02/22 16:12 Dose: 600 mg Hydroxyzine HCl (Hydroxyzine Hcl 50 Mg Tablet) 50 mg PO Q6H PRN PRN Reason: Anxiety Ibuprofen (Ibuprofen 400 Mg Tablet) 400 mg PO Q6H PRN PRN Reason: mod pain Last Admin: 12/26/21 09:18 Dose: 400 mg Insulin Glargine (Insulin Glargine,Hum.Rec.Anlog 100 Unit/Ml 10 Ml Vial) 70 unit SUBCUT BEDTIME [facility] Last Admin: 01/01/22 21:55 Dose: 70 unit Insulin Human Lispro (Insulin Lispro 100 Unit/Ml 3 Ml Vial) 0 unit SUBCUT QIDACHS [facility]; Protocol Last Admin: 01/02/22 12:35 Dose: Not Given Magnesium Hydroxide (Milk Of Magnesia 30 Ml Oral.Susp) 30 ml PO DAILY PRN PRN Reason: Constipation Metformin HCl (Metformin Hcl 500 Mg Tablet) 500 mg PO BIDWM [facility] Last Admin: 01/02/22 09:42 Dose: 500 mg Multivitamins/Vitamin C (Multivitamin Tablet) 1 tab PO DAILY [facility] Last Admin: 01/02/22 09:42 Dose: 1 tab Nicotine (Nicotine 21 Mg Patch.Td24) 21 mg TRANSDERMA DAILY [facility] Last Admin: 01/02/22 09:41 Dose: 21 mg Omeprazole (Omeprazole 20 Mg Capsule.Dr) 20 mg PO DAILY@0630 [facility] Last Admin: 01/02/22 07:45 Dose: 20 mg Quetiapine Fumarate (Quetiapine Fumarate 200 Mg Tablet) 200 mg PO BEDTIME [facility] Last Admin: 01/01/22 21:56 Dose: 200 mg Trazodone HCl (Trazodone Hcl 50 Mg Tablet) 150 mg PO BEDTIME [facility] Last Admin: 01/01/22 21:56 Dose: 150 mg Allergies Allergies Allergy/AdvReac Type Severity Reaction Status Date / Time levofloxacin [From Levaquin] Allergy Intermediate rash Verified 11/21/20 20:44 Assessment & Plan Assessment & Plan (1) MDD (major depressive disorder), recurrent, severe, with psychosis: Status: Acute Code(s): F33.3 - Major depressive disorder, recurrent, severe with psychotic symptoms (2) Opioid use disorder: Status: Acute Code(s): F11.99 - Opioid use, unspecified with unspecified opioid-induced disorder (3) Stimulant use disorder: Status: Acute Code(s): F15.90 - Other stimulant use, unspecified, uncomplicated Plan Sukhwinder is a 46 y.o. Male who carries a dx of polysubstance abuse, MDD recurrent with psychotic features. He presented to [facility] on 12/16/2021 due SI with plan to stab himself, depression, and CAH telling him he should kill himself, poor sleep/ appetite. Precipitating factors include relapse on substances with daily opiate abuse, med non-adherence x 2 weeks, and chronic homelessness. Hx of multiple detox and inpatient admissions, hx of not following through with outpatient referrals. Last admitted to [facility] M[facility] in 11/2020. Utox positive for opiates, fentanyl, cocaine, amphetamines, and cannabis. 12/18 depressed, intermittent SI; AH subsiding. In withdrawal and on CIWA. For right now patient agrees to leave medication doses where they are, specifically Wellbutrin and Abilify and to reassess once he is through withdrawal. Consumer Relations Specialist discussed with patient that symptom reduction is only consistently possible if patient pursue sobriety and engages in therapy to which he agrees. 12/19/2021: No changes to current treatment plan. Maintain CIWA with Ativan for withdrawals. May consider increasing Abilify. Will review tomorrow 12/20/21: increase seroquel to 200mg as very poor sleep and patient preferred night meds increased versus abilify 12/21 mood is a little better, SI diminished; has passive intermittent SI however this is chronic. Wants gabapentin put back to 600 t.i.d. saying that he needs this for neuropathy. Although this medication carries risks especially when combined with substance abuse, patient has been on this medication for years; lowering dose at this point increase his risk for worsened neuropathic pain which is a trigger for patient's relapse. At this time, database report writer considers the potential benefit outweighs the potential risk and agrees to increase gabapentin back to 600 mg; this is still a reduced dose from his past dosing at 100 mg t.i.d. 12/22 patient reports mood is better still; still depressed but no SI. Hoping to get into a substance abuse treatment program but understands this may not be available and he'll and of going to a detention. Patient is close to or at baseline. 12/23 patient is polite and expressing gratitude for help received.? He reports that he remains doing better; says has intermittent passive SI which he says is chronic and normal for him.? AH is very minimal and able to be ignored.? Still focused on getting into a program. 12/24, patient remains doing better and feels he is back to his regular self. Still focused on program 12/25; remains stable 12/27/2021: continue current treatment plan. 12/28 remains stable, improved mood, hopeful. Patient's blood sugar levels have remained stable and he has not needed sliding scale very much, with only 1 value over 200 on 12/26 12/29 patient reports good mood and is with a significantly brighter affect; also much more social in the milieu.? Hopeful about getting into a program but accepts will go to a detention if not 12/31 remains good mood and hopeful; calling programs on his own. Discussed diabetes and patient says his sugars have return to close to normal since he lost 100 lb over the past few months due to not eating since he was engaged in excessive drug use 01/01 patient is doing well however database report writer agrees that discharging to a detention puts him at high risk for relapse. Patient understands this risk and also under stands it may be his only option however he remains hopeful to get into a program. Mood remains good, no SI. Plan:? Q15 min safety checks, CV change to regular diet at pt's request. GAbapentin 600mg TID for neuropathy Abilify increased to 10mg Seroquel was increased to 200mg for insomnia Continue with sliding scale insulin; patient's A1c has returned to nearly normal and he seldom needs sliding scale however he wants to keep it on board just in case as he is grateful that his sugars have significantly improved. Otherwise home meds were continued Monitor response to medications. Monitor for safety in the milieu. Discharge on stabilization. Patient seen. Chart reviewed. Discussed with team. Obtain collateral contact info?as needed I spent minutes with the patient and/or on the patient floor today, greater than?50% of which was spent counseling/coordinating care. Patient educated on: diagnosis and substance abuse Informed Consent: understands Reason for contiued inpatient stay Substantial Risk for: stable for discharge
[2022-01-02 16:34] LABS: Glucose, Whole Blood 93 mg/dL (60-115)
[2022-01-02 18:00] VITALS: BP 134/82; PULSE 84; RESP 18; TEMP 37.2; O2SAT 100
[2022-01-02] MEDS: QUEtiapine Fumarate 200 MG TABLET PO (21:29)
[2022-01-02] MEDS: traZODone HCL 50 MG TABLET 150 MG PO (21:29)
[2022-01-02] MEDS: Insulin Glargine,Hum.rec.anlog 100 UNIT/ML 10 ML VIAL 70 UNIT SUBCUT (21:34)
[2022-01-03 06:00] VITALS: BP 115/81; PULSE 88; RESP 16; TEMP 37; O2SAT 98
[2022-01-03 08:33] LABS: Glucose, Whole Blood 94 mg/dL (60-115)
[2022-01-03] MEDS: metFORMIN HCl 500 MG TABLET PO ×2 (08:39→17:46)
[2022-01-03] MEDS: Buprenorphine/Naloxone 8/2 mg FILM 1 FILM SUBLINGUAL ×3 (08:39→21:30)
[2022-01-03] MEDS: buPROPion HCl XL 150 MG TAB.ER.24H 450 MG PO (08:39)
[2022-01-03] MEDS: Omeprazole 20 MG CAPSULE.DR PO (08:39)
[2022-01-03] MEDS: Nicotine 21 MG PATCH.TD24 TRANSDERMA (08:39)
[2022-01-03] MEDS: Multivitamin TABLET 1 TAB PO (08:39)
[2022-01-03] MEDS: ARIPiprazole 10 MG TABLET PO (08:39)
[2022-01-03] MEDS: amLODIPine Besylate 10 MG TABLET PO (08:40)
[2022-01-03] MEDS: Gabapentin 300 MG CAPSULE 600 MG PO ×3 (08:40→21:30)
[2022-01-03 12:48] LABS: Glucose, Whole Blood 96 mg/dL (60-115)
--- NOTE | 2022-01-03 15:21 | P.PNPSI_ITS ---
Subjective Subjective Date of Service: 01/03/22 Reason For Visit: Depression w psychosis, polysubstance abuse Interim History: Patient said he is feeling a little down and anxious today because he is unsure whether not he will get into a program tomorrow or whether whole and up having to go to a fci. That said, no SI other than intermittent passive thoughts that are fleeting and able to be ignored. No other complaints and feels medications have overall been helpful. Patient does complain of some dysuria, that hurts when he urinates. He denies any discharge. Mental Status Exam Mental Status Exam Narrative: Pt is alert and oriented; behavior is cooperative, calm, friendly; patient is not in distress; dressed in casual attire, appropriately groomed and with javi quate hygiene; mood is described as a little down...anxious and affect congruent; eye contact adequate; Speech is normal rate but a little soft in volume; normal prosody and not pressured; no psychomotor retardation; thought process is organized and goal directed; Thought content is on tx, post discharge plans, wanting to get into a substance abuse program; otherwise pertinent to relevant topics and without any delusional content, paranoid ideations or grandiosity; intermittent, passive SI (chronic), no plans/intention; no HI. minimal, intermittent AH, able to ignore. Patients insight and judgment are fair. Diagnostics Vital Signs (24Hr): Vital Signs - 24 hr 01/02/22 18:00 01/03/22 06:00 Temperature 99 F 98.6 F Pulse Rate 84 88 Respiratory Rate 18 16 Blood Pressure 134/82 115/81 Pulse Oximetry 100 98 Oxygen Delivery Method Room Air Room Air BMI result Body Mass Index 23.5 Labs Results: 12/16/21 11:56 12/31/21 07:56 Labs: Laboratory Results - last 48 hr 01/01/22 01/01/22 01/02/22 17:11 21:54 07:52 POC Glucose 149 H 108 69 01/02/22 01/02/22 01/03/22 12:25 16:31 08:28 POC Glucose 130 H 93 94 01/03/22 12:45 POC Glucose 96 Medications Medications Current Medications Acetaminophen (Acetaminophen 325 Mg Tablet) 650 mg PO Q6H PRN PRN Reason: Headache/Pain Mild Scale (1-3) Al Hydroxide/Mg Hydroxide (Magnesium Hydrox/Alum Hydrox 30 Ml Oral.Susp) 30 ml PO Q6H PRN PRN Reason: Heartburn/Nausea Amlodipine Besylate (Amlodipine Besylate 10 Mg Tablet) 10 mg PO DAILY [facility]; Protocol Last Admin: 01/03/22 08:40 Dose: 10 mg Aripiprazole (Aripiprazole 10 Mg Tablet) 10 mg PO DAILY [facility] Last Admin: 01/03/22 08:39 Dose: 10 mg Buprenorphine/Naloxone (Buprenorphine/Naloxone 8/2 Mg Film) 1 film SUBLINGUAL TID [facility] Last Admin: 01/03/22 15:09 Dose: 1 film Bupropion HCl (Bupropion Hcl Xl 150 Mg Tab.Er.24h) 450 mg PO DAILY [facility] Last Admin: 01/03/22 08:39 Dose: 450 mg Clonidine HCl (Clonidine Hcl 0.1 Mg Tablet) 0.1 mg PO TID PRN; Protocol PRN Reason: hyperarousal, withdrawal, anxiety Docusate Sodium (Docusate Sodium 100 Mg Capsule) 100 mg PO BID PRN PRN Reason: constipation Gabapentin (Gabapentin 300 Mg Capsule) 600 mg PO TID [facility] Last Admin: 01/03/22 15:08 Dose: 600 mg Hydroxyzine HCl (Hydroxyzine Hcl 50 Mg Tablet) 50 mg PO Q6H PRN PRN Reason: Anxiety Ibuprofen (Ibuprofen 400 Mg Tablet) 400 mg PO Q6H PRN PRN Reason: mod pain Last Admin: 12/26/21 09:18 Dose: 400 mg Insulin Glargine (Insulin Glargine,Hum.Rec.Anlog 100 Unit/Ml 10 Ml Vial) 70 unit SUBCUT BEDTIME [facility] Last Admin: 01/02/22 21:34 Dose: 70 unit Insulin Human Lispro (Insulin Lispro 100 Unit/Ml 3 Ml Vial) 0 unit SUBCUT QIDACHS [facility]; Protocol Last Admin: 01/03/22 12:59 Dose: Not Given Magnesium Hydroxide (Milk Of Magnesia 30 Ml Oral.Susp) 30 ml PO DAILY PRN PRN Reason: Constipation Metformin HCl (Metformin Hcl 500 Mg Tablet) 500 mg PO BIDWM [facility] Last Admin: 01/03/22 08:39 Dose: 500 mg Multivitamins/Vitamin C (Multivitamin Tablet) 1 tab PO DAILY [facility] Last Admin: 01/03/22 08:39 Dose: 1 tab Nicotine (Nicotine 21 Mg Patch.Td24) 21 mg TRANSDERMA DAILY [facility] Last Admin: 01/03/22 08:39 Dose: 21 mg Omeprazole (Omeprazole 20 Mg Capsule.) 20 mg PO DAILY@0630 [facility] Last Admin: 01/03/22 08:39 Dose: 20 mg Quetiapine Fumarate (Quetiapine Fumarate 200 Mg Tablet) 200 mg PO BEDTIME [facility] Last Admin: 01/02/22 21:29 Dose: 200 mg Trazodone HCl (Trazodone Hcl 50 Mg Tablet) 150 mg PO BEDTIME [facility] Last Admin: 01/02/22 21:29 Dose: 150 mg Allergies Allergies Allergy/AdvReac Type Severity Reaction Status Date / Time levofloxacin [From Levaquin] Allergy Intermediate rash Verified 11/21/20 20:44 Assessment & Plan Assessment & Plan (1) MDD (major depressive disorder), recurrent, severe, with psychosis: Status: Acute Code(s): F33.3 - Major depressive disorder, recurrent, severe with psychotic symptoms (2) Opioid use disorder: Status: Acute Code(s): F11.99 - Opioid use, unspecified with unspecified opioid-induced disorder (3) Stimulant use disorder: Status: Acute Code(s): F15.90 - Other stimulant use, unspecified, uncomplicated Plan Sukhwinder is a 46 y.o. Male who carries a dx of polysubstance abuse, MDD recurrent with psychotic features. He presented to [facility] [place] 12[place]16/[place] due SI with plan to stab himself, depression, and CAH telling him he should kill himself, poor sleep/ appetite. Precipitating factors include relapse on substances with daily opiate abuse, med non-adherence x 2 weeks, and chronic homelessness. Hx of [facility] detox and inpatient admissions, hx of not following through with outpatient referrals. Last admitted to [facility] [place] 11/[place]. Utox positive for opiates, fentanyl, cocaine, amphetamines, and cannabis. 12/18 depressed, intermittent SI; AH subsiding. In withdrawal and on CIWA. For right now patient agrees to leave medication doses where they are, specifically Wellbutrin and Abilify and to reassess once he is through withdrawal. Manager Home Improvement discussed with patient that symptom reduction is only consistently possible if patient pursue sobriety and engages in therapy to which he agrees. 12/19/2021: No changes to current treatment plan. Maintain CIWA with Ativan for withdrawals. May consider increasing Abilify. Will review tomorrow 12/20/21: increase seroquel to 200mg as very poor sleep and patient preferred night meds increased versus abilify 12/21 mood is a little better, SI diminished; has passive intermittent SI however this is chronic. Wants gabapentin put back to 600 t.i.d. saying that he needs this for neuropathy. Although this medication carries risks especially when combined with substance abuse, patient has been on this medication for years; lowering dose at this point increase his risk for worsened neuropathic pain which is a trigger for patient's relapse. At this time, policy writer considers the potential benefit outweighs the potential risk and agrees to increase gabapentin back to 600 mg; this is still a reduced dose from his past dosing at 100 mg t.i.d. 12/22 patient reports mood is better still; still depressed but no SI. Hoping to get into a substance abuse treatment program but understands this may not be available and he'll and of going to a [facility]ci. Patient is close to or at baseline. 12/23 patient is polite and expressing gratitude for help received.? He reports that he remains doing better; says has intermittent passive SI which he says is chronic and normal for him.? AH is very minimal and able to be ignored.? Still focused on getting into a program. 12/24, patient remains doing better and feels he is back to his regular self. Still focused on program 12/25; remains stable 12/27/2021: continue current treatment plan. 12/28 remains stable, improved mood, hopeful. Patient's blood sugar levels have remained stable and he has not needed sliding scale very much, with only 1 value over 200 on 12/26 12/29 patient reports good mood and is with a significantly brighter affect; also much more social in the milieu.? Hopeful about getting into a program but accepts will go to a fci if not 12/31 remains good mood and hopeful; calling programs on his own. Discussed diabetes and patient says his sugars have return to close to normal since he lost 100 lb over the past few months due to not eating since he was engaged in excessive drug use 01/01 patient is doing well however policy writer agrees that discharging to a fci puts him at high risk for relapse. Patient understands this risk and also understands it may be his only option however he remains hopeful to get into a program. Mood remains good, no SI. 01/03 Patient is stable. He is anxious about tomorrow, not knowing a full get into a program or not, not really looking for to going to a fci. Patient complains of some dysuria. Will order UA and STD test Plan:? Q15 min safety checks, CV UA CT NG PCR ordered changed to regular diet at pt's request. GAbapentin 600mg TID for neuropathy Abilify increased to 10mg Seroquel was increased to 200mg for insomnia Continue with sliding scale insulin; patient's A1c has returned to nearly normal and he seldom needs sliding scale however he wants to keep it on board just in case as he is grateful that his sugars have significantly improved. Otherwise home meds were continued Monitor response to medications. Monitor for safety in the milieu. Discharge on stabilization. Patient seen. Chart reviewed. Discussed with team. Obtain collateral contact info?as needed I spent minutes with the patient and/or on the patient floor today, greater than?50% of which was spent counseling/coordinating care. Patient educated on: diagnosis and medical condition Informed Consent: understands Reason for contiued inpatient stay Substantial Risk for: stable for discharge
[2022-01-03 16:49] LABS: Glucose, Whole Blood 123 mg/dL (60-115)
[2022-01-03 17:28] LABS: Appearance Urine Cloudy; Color Urine Yellow; Glucose Urine UA Negative (Negative); Leukocyte Esterase Urine Large (3+) (Negative); Nitrite Urine Positive (Negative); UMIC TRIGGER UACC YES; Urine Blood Trace (Negative); Urine Ketones Negative (Negative); Urine Protein 30 (1+) mg/dL (Neg-Trace)
[2022-01-03 17:49] LABS: Bacteria Urine 2+ (None Seen); Squamous Epithelial Cell Urine 0-2 /HPF (0-2); UACC Culture Trigger YES; WBC Urine >50 /HPF (0-5)
[2022-01-03 18:00] VITALS: BP 158/84; PULSE 78; RESP 18; TEMP 36.6; O2SAT 98
[2022-01-03] MEDS: traZODone HCL 50 MG TABLET 150 MG PO (21:30)
[2022-01-03] MEDS: QUEtiapine Fumarate 200 MG TABLET PO (21:31)
[2022-01-03] MEDS: Insulin Glargine,Hum.rec.anlog 100 UNIT/ML 10 ML VIAL 70 UNIT SUBCUT (21:31)
[2022-01-04 05:12] LABS: CT PCR NOT DETECTED (Not Detect.); NG PCR NOT DETECTED (Not Detect.)
[2022-01-04] MEDS: Omeprazole 20 MG CAPSULE.DR PO (06:34)
[2022-01-04 08:20] VITALS: BP 118/73; PULSE 70; TEMP 36.2
[2022-01-04 08:24] LABS: Glucose, Whole Blood 108 mg/dL (60-115)
[2022-01-04] MEDS: Buprenorphine/Naloxone 8/2 mg FILM 1 FILM SUBLINGUAL ×3 (08:43→21:19)
[2022-01-04] MEDS: ARIPiprazole 10 MG TABLET PO (08:43)
[2022-01-04] MEDS: Multivitamin TABLET 1 TAB PO (08:43)
[2022-01-04] MEDS: amLODIPine Besylate 10 MG TABLET PO (08:43)
[2022-01-04] MEDS: Gabapentin 300 MG CAPSULE 600 MG PO ×3 (08:43→21:16)
[2022-01-04] MEDS: metFORMIN HCl 500 MG TABLET PO ×2 (08:43→17:32)
[2022-01-04] MEDS: buPROPion HCl XL 150 MG TAB.ER.24H 450 MG PO (08:43)
[2022-01-04] MEDS: Ibuprofen 400 MG TABLET PO (08:44)
[2022-01-04] MEDS: Nicotine 21 MG PATCH.TD24 TRANSDERMA (08:45)
[2022-01-04 11:29] LABS: Glucose, Whole Blood 137 mg/dL (60-115)
--- NOTE | 2022-01-04 13:29 | P.PNPSI_ITS ---
Subjective Subjective Date of Service: 01/04/22 Reason For Visit: Depression w psychosis, polysubstance abuse Interim History: Patient mood is okay he is disappointed that he did not get into a program; he is grateful that he can remain for another day to see if another bed can open up. No SI. Patient remains adamant that he does not want to go to any program near [place] and refuses all programs/options presented to him that are in the vicinity. In fact he says he much prefers to be discharged to the streets rather than go to a program in the area; he says there are certain people he wants to avoid and this is his preference. Discussed patient's history of UTI. He says that he gets them frequently for the past year. Antibiotics will clear up the symptoms but the symptoms/UTI soon returns. He says this coincides with the past 1 year history of symptoms and indicative of enlarged prostate (having trouble initiating stream, dribbles, has to push for stream to come out). Inspection And Testing Supervisor discussed case with hospitalist Dr. Allred who recommends Ceftin 500 mg b.i.d. for 7 days as well as Flomax. Dr. Cooper urologist concurs and wants to have added finasteride 5 mg daily. Disc ussed with patient who welcomes treatment. Mental Status Exam Mental Status Exam Narrative: Pt is alert and oriented; behavior is cooperative, calm, friendly; patient is not in distress; dressed in casual attire, appropriately groomed and with adequate hygiene; mood is described as ok affect congruent; eye contact adequate; Speech is normal volume, rate, normal prosody and not pressured; no psychomotor retardation; thought process is organized and goal directed; Thought content is on tx, post discharge plans, wanting to get into a substance abuse program; otherwise pertinent to relevant topics and without any delusional content, paranoid ideations or grandiosity; intermittent, passive SI (chronic), no plans/intention; no HI. no AH (intermittent but able to be ignored). Patients insight and judgment are fair. Diagnostics Vital Signs (24Hr): Vital Signs - 24 hr 01/03/22 18:00 01/04/22 08:20 Temperature 98 F 97.2 F Pulse Rate 78 70 Respiratory Rate 18 Blood Pressure 158/84 H 118/73 Pulse Oximetry 98 Oxygen Delivery Method Room Air BMI result Body Mass Index 23.5 Labs Results: 12/16/21 11:56 12/31/21 07:56 Labs: Laboratory Results - last 48 hr 01/02/22 01/03/22 01/03/22 16:31 08:28 12:45 POC Glucose 93 94 96 Urine Color Urine Appearance Urine pH Ur Specific [place] Urine Protein Urine Glucose (UA) Urine Ketones Urine Blood Urine Nitrite Ur Leukocyte Esterase Urine RBC Urine WBC Ur Squamous Epith Cells Urine Bacteria Hyaline Casts Chlam trachomat DNA PCR N.gonorrhoeae DNA (PCR) 01/03/22 01/03/22 01/03/22 15:45 15:45 16:42 POC Glucose 123 H Urine Color Yellow Urine Appearance Cloudy Urine pH 6.0 Ur Specific [place] 1.020 Urine Protein 30 (1+) H Urine Glucose (UA) Negative Urine Ketones Negative Urine Blood Trace H Urine Nitrite Positive H Ur Leukocyte Esterase Large (3+) H Urine RBC 3-5 H Urine WBC >50 H Ur Squamous Epith Cells 0-2 Urine Bacteria 2+ Hyaline Casts 3-5 Chlam trachomat DNA PCR NOT DETECTED N.gonorrhoeae DNA (PCR) NOT DETECTED 01/04/22 01/04/22 08:18 11:22 POC Glucose 108 137 H Urine Color Urine Appearance Urine pH Ur Specific [place] Urine Protein Urine Glucose (UA) Urine Ketones Urine Blood Urine Nitrite Ur Leukocyte Esterase Urine RBC Urine WBC Ur Squamous Epith Cells Urine Bacteria Hyaline Casts Chlam trachomat DNA PCR N.gonorrhoeae DNA (PCR) Medications Medications Current Medications Acetaminophen (Acetaminophen 325 Mg Tablet) 650 mg PO Q6H PRN PRN Reason: Headache/Pain Mild Scale (1-3) Al Hydroxide/Mg Hydroxide (Magnesium Hydrox/Alum Hydrox 30 Ml Oral.Susp) 30 ml PO Q6H PRN PRN Reason: Heartburn/Nausea Amlodipine Besylate (Amlodipine Besylate 10 Mg Tablet) 10 mg PO DAILY [facility]; Protocol Last Admin: 01/04/22 08:43 Dose: 10 mg Aripiprazole (Aripiprazole 10 Mg Tablet) 10 mg PO DAILY [facility] Last Admin: 01/04/22 08:43 Dose: 10 mg Buprenorphine/Naloxone (Buprenorphine/Naloxone 8/2 Mg Film) 1 film SUBLINGUAL TID [facility] Last Admin: 01/04/22 08:43 Dose: 1 film Bupropion HCl (Bupropion Hcl Xl 150 Mg Tab.Er.24h) 450 mg PO DAILY [facility] Last Admin: 01/04/22 08:43 Dose: 450 mg Cefuroxime Axetil (Cefuroxime Axetil 500 Mg Tablet) 500 mg PO BID [facility] Last Admin: 01/04/22 12:47 Dose: 500 mg Clonidine HCl (Clonidine Hcl 0.1 Mg Tablet) 0.1 mg PO TID PRN; Protocol PRN Reason: hyperarousal, withdrawal, anxiety Docusate Sodium (Docusate Sodium 100 Mg Capsule) 100 mg PO BID PRN PRN Reason: constipation Finasteride (Finasteride 5 Mg Tablet) 5 mg PO DAILY [facility] Gabapentin (Gabapentin 300 Mg Capsule) 600 mg PO TID [facility] Last Admin: 01/04/22 08:43 Dose: 600 mg Hydroxyzine HCl (Hydroxyzine Hcl 50 Mg Tablet) 50 mg PO Q6H PRN PRN Reason: Anxiety Ibuprofen (Ibuprofen 400 Mg Tablet) 400 mg PO Q6H PRN PRN Reason: mod pain Last Admin: 01/04/22 08:44 Dose: 400 mg Insulin Glargine (Insulin Glargine,Hum.Rec.Anlog 100 Unit/Ml 10 Ml Vial) 70 unit SUBCUT BEDTIME [facility] Last Admin: 01/03/22 21:31 Dose: 70 unit Insulin Human Lispro (Insulin Lispro 100 Unit/Ml 3 Ml Vial) 0 unit SUBCUT QIDACHS [facility]; Protocol Last Admin: 01/04/22 11:30 Dose: Not Given Magnesium Hydroxide (Milk Of Magnesia 30 Ml Oral.Susp) 30 ml PO DAILY PRN PRN Reason: Constipation Metformin HCl (Metformin Hcl 500 Mg Tablet) 500 mg PO BIDWM [facility] Last Admin: 01/04/22 08:43 Dose: 500 mg Multivitamins/Vitamin C (Multivitamin Tablet) 1 tab PO DAILY [facility] Last Admin: 01/04/22 08:43 Dose: 1 tab Nicotine (Nicotine 21 Mg Patch.Td24) 21 mg TRANSDERMA DAILY [facility] Last Admin: 01/04/22 08:45 Dose: 21 mg Omeprazole (Omeprazole 20 Mg Capsule.Dr) 20 mg PO DAILY@0630 [facility] Last Admin: 01/04/22 06:34 Dose: 20 mg Quetiapine Fumarate (Quetiapine Fumarate 200 Mg Tablet) 200 mg PO BEDTIME [facility] Last Admin: 01/03/22 21:31 Dose: 200 mg Tamsulosin HCl (Tamsulosin Hcl 0.4 Mg Capsule) 0.4 mg PO DAILY [facility] Trazodone HCl (Trazodone Hcl 50 Mg Tablet) 150 mg PO BEDTIME [facility] Last Admin: 01/03/22 21:30 Dose: 150 mg Allergies Allergies Allergy/AdvReac Type Severity Reaction Status Date / Time levofloxacin [From Levaquin] Allergy Intermediate rash Verified 11/21/20 20:44 Assessment & Plan Assessment & Plan (1) MDD (major depressive disorder), recurrent, severe, with psychosis: Status: Acute Code(s): F33.3 - Major depressive disorder, recurrent, severe with psychotic symptoms (2) Opioid use disorder: Status: Acute Code(s): F11.99 - Opioid use, unspecified with unspecified opioid-induced disorder (3) Stimulant use disorder: Status: Acute Code(s): F15.90 - Other stimulant use, unspecified, uncomplicated (4) Recurrent UTI: Status: Acute Code(s): N39.0 - Urinary tract infection, site not specified Plan Sukhwinder is a 46 y.o. Male who carries a dx of polysubstance abuse, MDD recurrent with psychotic features. He presented to [facility] on 12/16/2021 due SI with plan to stab himself, depression, and CAH telling him he should kill himself, poor sleep/ appetite. Precipitating factors include relapse on substances with daily opiate abuse, med non-adherence x 2 weeks, and chronic homelessness. Hx of multiple detox and inpatient admissions, hx of not following through with outpatient referrals. Last admitted to [facility] in 11/2020. Utox positive for opiates, fentanyl, cocaine, amphetamines, and cannabis. 12/18 depressed, intermittent SI; AH subsiding. In withdrawal and on CIWA. For right now patient agrees to leave medication doses where they are, specifically Wellbutrin and Abilify and to reassess once he is through withdrawal. Inspection And Testing Supervisor discussed with patient that symptom reduction is only consistently possible if patient pursue sobriety and engages in therapy to which he agrees. 12/19/2021: No changes to current treatment plan. Maintain CIWA with Ativan for withdrawals. May consider increasing Abilify. Will review tomorrow 12/20/21: increase seroquel to 200mg as very poor sleep and patient preferred night meds increased versus abilify 12/21 mood is a little better, SI diminished; has passive intermittent SI however this is chronic. Wants gabapentin put back to 600 t.i.d. saying that he needs this for neuropathy. Although this medication carries risks especially when combined with substance abuse, patient has been on this medication for years; lowering dose at this point increase his risk for worsened neuropathic pain which is a trigger for patient's relapse. At this time, pattern chart writer considers the potential benefit outweighs the potential risk and agrees to increase gabapentin back to 600 mg; this is still a reduced dose from his past dosing at 100 mg t.i.d. 12/22 patient reports mood is better still; still depressed but no SI. Hoping to get into a substance abuse treatment program but understands this may not be available and he'll and of going to a halfway. Patient is close to or at baseline. 12/23 patient is polite and expressing gratitude for help received.? He reports that he remains doing better; says has intermittent passive SI which he says is chronic and normal for him.? AH is very minimal and able to be ignored.? Still focused on getting into a program. 12/24, patient remains doing better and feels he is back to his regular self. Still focused on program 12/25; remains stable 12/27/2021: continue current treatment plan. 12/28 remains stable, improved mood, hopeful. Patient's blood sugar levels have remained stable and he has not needed sliding scale very much, with only 1 value over 200 on 12/26 12/29 patient reports good mood and is with a significantly brighter affect; also much more social in the milieu.? Hopeful about getting into a program but accepts will go to a halfway if not 12/31 remains good mood and hopeful; calling programs on his own. Discussed diabetes and patient says his sugars have return to close to normal since he lost 100 lb over the past few months due to not eating since he was engaged in excessive drug use 01/01 patient is doing well however pattern chart writer agrees that discharging to a halfway puts him at high risk for relapse. Patient understands this risk and also understands it may be his only option however he remains hopeful to get into a program. Mood remains good, no SI. 01/03 Patient is stable. He is anxious about tomorrow, not knowing a full get into a program or not, not really looking for to going to a halfway. Patient complains of some dysuria. Will order UA and STD test 01/04 disappointed not in program. Refuses all offers for programs in the near vicinity, wanting to be in a different location; says he prefers the streets to any program or halfway in the area. No SI. Discussed patient's history of UTI. He says that he gets them frequently for the past year. Antibiotics will clear up the symptoms but the symptoms/UTI soon returns. He says this coincides with the past 1 year history of symptoms and indicative of enlarged prostate (having trouble initiating stream, dribbles, has to push for stream to come out). Inspection And Testing Supervisor discussed case with hospitalist Dr. Allred who recommends Ceftin 500 mg b.i.d. for 7 days as well as Flomax. Dr. Cooper urologist concurs and wants to have added finasteride 5 mg daily. Discussed with patient who welcomes treatment. -Urology apt on discharge Plan:? Q15 min safety checks, CV UA: +UTI which are recurrent START Ceftin 500 mg b.i.d. for 7 days Start Flomax 0.4 mg daily (patient prefers daytime of her nighttime) Start finasteride [address] NG PCR:negative changed to regular diet at pt's request. GAbapentin 600mg TID for neuropathy Abilify increased to 10mg Seroquel was increased to 200mg for insomnia Continue with sliding scale insulin; patient's A1c has returned to nearly normal and he seldom needs sliding scale however he wants to keep it on board just in case as he is grateful that his sugars have significantly improved. Otherwise home meds were continued Monitor response to medications. Monitor for safety in the milieu. Discharge on stabilization. Patient seen. Chart reviewed. Discussed with team. Obtain collateral contact info?as needed I spent minutes with the patient and/or on the patient floor today, greater than?50% of which was spent counseling/coordinating care. Patient educated on: diagnosis, medication risk/benefits and medical condition Informed Consent: understands Reason for contiued inpatient stay Substantial Risk for: stable for discharge
[2022-01-04 16:45] VITALS: BP 125/85; PULSE 79; TEMP 36.9
[2022-01-04 17:09] LABS: Glucose, Whole Blood 123 mg/dL (60-115)
[2022-01-04 21:09] LABS: Glucose, Whole Blood 94 mg/dL (60-115)
[2022-01-04] MEDS: traZODone HCL 50 MG TABLET 150 MG PO (21:16)
[2022-01-04] MEDS: Insulin Glargine,Hum.rec.anlog 100 UNIT/ML 10 ML VIAL 70 UNIT SUBCUT (21:18)
[2022-01-04] MEDS: QUEtiapine Fumarate 200 MG TABLET PO (21:18)
[2022-01-05] MEDS: Omeprazole 20 MG CAPSULE.DR PO (06:36)
[2022-01-05] MEDS: amLODIPine Besylate 10 MG TABLET PO (08:49)
[2022-01-05] MEDS: Gabapentin 300 MG CAPSULE 600 MG PO (08:49)
[2022-01-05] MEDS: metFORMIN HCl 500 MG TABLET PO (08:49)
[2022-01-05] MEDS: ARIPiprazole 10 MG TABLET PO (08:49)
[2022-01-05] MEDS: buPROPion HCl XL 150 MG TAB.ER.24H 450 MG PO (08:49)
[2022-01-05] MEDS: Multivitamin TABLET 1 TAB PO (08:49)
[2022-01-05] MEDS: Nicotine 21 MG PATCH.TD24 TRANSDERMA (08:50)
[2022-01-05] MEDS: Buprenorphine/Naloxone 8/2 mg FILM 1 FILM SUBLINGUAL (08:50)
[2022-01-05 08:54] LABS: MANUAL DIFF FLAG NO
[2022-01-05] MEDS: Ibuprofen 400 MG TABLET PO (08:54)
[2022-01-05 09:00] LABS: Basophils Percent Auto 0.9 % (0-2); Eosinophils Absolute Auto 0.4 X10*3/uL (0.0-0.4); Eosinophils Percent Auto 8.1 % (0-4); Hematocrit 43.9 % (42.0-52.0); Hemoglobin 14.7 g/dl (14.0-18.0); Imm Gran Abs Auto 0.01 X10*3/uL (0.00-0.03); Imm Gran Pct Auto 0.2 % (0.0-0.4); Lymphocytes Absolute Auto 1.6 X10*3/uL (1.2-4.9); Lymphocytes Percent Auto 35.7 % (20-40); Mean Corpuscular HGB Conc 33.5 g/dl (31.0-36.0); Mean Corpuscular Hemoglobin 29.8 pg (27.0-33.0); Mean Corpuscular Volume 88.9 fL (80.0-98.0); Mean Platelet Volume 9.6 fL (9.4-12.4); Monocytes Absolute Auto 0.6 X10*3/uL (0.1-1.2); Monocytes Percent Auto 13.3 % (2-11); Neutrophils Absolute Auto 1.9 x10*3/uL (2.0-8.3); Neutrophils Percent Auto 41.8 % (45-73); Platelet Count 298 X10*3/uL (160-400); Red Blood Count 4.94 X10*6/uL (4.60-5.80); Red Cell Distribution Width 12.1 % (11.0-16.0); White Blood Count 4.6 X10*3/uL (4.8-10.8)
--- NOTE | 2022-01-05 09:21 | PM.PSYDC ---
DS: Providers Provider Date of Service: 01/05/22 Date of admission: 12/17/21 13:40 Date of discharge: 01/05/22 Primary care physician: Unknown Physician Attending physician on admission: Tirso Aquino Attending physician on discharge: Tiros Aquino DS: Diagnosis Discharge Diagnosis (1) MDD (major depressive disorder), recurrent, severe, with psychosis: Status: Acute (2) Opioid use disorder: Status: Acute (3) Stimulant use disorder: Status: Acute (4) Recurrent UTI: Status: Acute DS: Medications Discharge Medications Home Medications: Previous Rx's Medication Instructions Recorded amlodipine 10 mg tablet 10 mg PO DAILY 30 days #30 tabs 01/05/22 aripiprazole 10 mg tablet 10 mg PO DAILY 30 days #30 tabs 01/05/22 blood sugar diagnostic (FreeStyle #100 ea 01/05/22 Lite Strips) buprenorphine 8 mg-naloxone 2 mg 1 tab sublingual TID 30 days #90 01/05/22 sublingual tablet tabs bupropion HCl 150 mg 24 hr tablet, 150 mg PO QAM 30 days #30 tabs 01/05/22 extended release bupropion HCl 300 mg 24 hr tablet, 300 mg PO QAM 30 days #30 tabs 01/05/22 extended release cefuroxime axetil 500 mg tablet 500 mg PO BID 6 days #11 tabs 01/05/22 docusate sodium 100 mg capsule 100 mg PO BID PRN constipation 30 01/05/22 days #30 caps finasteride 5 mg tablet (Proscar) 5 mg PO DAILY 30 days #30 tabs 01/05/22 gabapentin 600 mg tablet 600 mg PO TID 30 days #90 tabs 01/05/22 insulin glargine 100 unit/mL 70 unit (0.7 mL) subcut BEDTIME 30 01/05/22 subcutaneous solution (Lantus days #21 mL U-100 Insulin) insulin lispro 100 unit/mL See Protocol subcut QIDACHS PRN as 01/05/22 subcutaneous solution (Humalog needed per blood sugar 30 days #10 U-100 Insulin) mL insulin syringe-needle U-100 1 mL #100 ea 01/05/22 31 gauge x 5/16 (FreeStyle Precision) metformin 500 mg tablet 500 mg PO BID 30 days #60 tabs 01/05/22 multivitamin (Daily-Dwayne tablet) 1 tab PO DAILY 30 days #30 tabs 01/05/22 nicotine 21 mg/24 hr daily 21 mg transdermal DAILY 28 days 01/05/22 transdermal patch #28 ea pantoprazole 40 mg tablet,delayed 40 mg PO QAM 30 days #30 tabs 01/05/22 release quetiapine 200 mg tablet 200 mg PO BEDTIME 30 days #30 tabs 01/05/22 quetiapine 200 mg tablet 200 mg PO BEDTIME 30 days #30 tabs 01/05/22 tamsulosin 0.4 mg capsule 0.4 mg PO DAILY 30 days #30 caps 01/05/22 trazodone 100 mg tablet 150 mg PO BEDTIME 30 days #45 tabs 01/05/22 Mental Status Exam Mental Status Exam Narrative: Pt is alert and oriented; behavior is cooperative, calm, friendly; patient is not in distress; dressed in casual attire, appropriately groomed and with adequate hygiene; mood is described as good affect congruent; eye contact adequate; Speech is normal volume, rate, normal prosody and not pressured; no psychomotor retardation; thought process is organized and goal directed; Thought content is on tx, post discharge plans;otherwise pertinent to relevant topics and without any delusional content, paranoid ideations or grandiosity; currently no SI (otherwise chronic intermittent, passive SI without plans/intention); no HI. no AH (intermittent but able to be ignored). Patients insight and judgment are fair. Data Data Completed and Pending Completed studies during hospitalization [Text1]: 12/29/21 12/29/21 12/29/21 10:23 17:02 20:53 WBC RBC Hgb Hct MCV MCH MCHC RDW Plt Count MPV Immature Gran % (Auto) Neut % (Auto) Lymph % (Auto) [place] % (Auto) Eos % (Auto) Baso % (Auto) Lymph # (Auto) [place] # (Auto) Eos # (Auto) Baso # (Auto) Abs Immat Gran (auto) Absolute Neuts (auto) Absolute Nucleated RBC Nucleated RBC % (auto) Sodium Potassium Chloride Carbon Dioxide Anion Gap BUN Creatinine Estim Creat Clear Calc Estimated GFR POC Glucose 120 H 123 H 87 Random Glucose Calcium Urine Color Urine Appearance Urine pH Ur Specific [place] Urine Protein Urine Glucose (UA) Urine Ketones Urine Blood Urine Nitrite Ur Leukocyte Esterase Urine RBC Urine WBC Ur Squamous Epith Cells Urine Bacteria Hyaline Casts Chlam trachomat DNA PCR N.gonorrhoeae DNA (PCR) 12/30/21 12/30/21 12/30/21 08:08 12:10 16:57 WBC RBC Hgb Hct MCV MCH MCHC RDW Plt Count MPV Immature Gran % (Auto) Neut % (Auto) Lymph % (Auto) [place] % (Auto) Eos % (Auto) Baso % (Auto) Lymph # (Auto) [place] # (Auto) Eos # (Auto) Baso # (Auto) Abs Immat Gran (auto) Absolute Neuts (auto) Absolute Nucleated RBC Nucleated RBC % (auto) Sodium Potassium Chloride Carbon Dioxide Anion Gap BUN Creatinine Estim Creat Clear Calc Estimated GFR POC Glucose 104 95 166 H Random Glucose Calcium Urine Color Urine Appearance Urine pH Ur Specific [place] Urine Protein Urine Glucose (UA) Urine Ketones Urine Blood Urine Nitrite Ur Leukocyte Esterase Urine RBC Urine WBC Ur Squamous Epith Cells Urine Bacteria Hyaline Casts Chlam trachomat DNA PCR N.gonorrhoeae DNA (PCR) 12/30/21 12/31/21 12/31/21 20:57 07:56 11:48 WBC RBC Hgb Hct MCV MCH MCHC RDW Plt Count MPV Immature Gran % (Auto) Neut % (Auto) Lymph % (Auto) [place] % (Auto) Eos % (Auto) Baso % (Auto) Lymph # (Auto) [place] # (Auto) Eos # (Auto) Baso # (Auto) Abs Immat Gran (auto) Absolute Neuts (auto) Absolute Nucleated RBC Nucleated RBC % (auto) Sodium 140 Potassium 4.1 Chloride 101 Carbon Dioxide 31 H Anion Gap 12 BUN 8 L Creatinine 0.70 Estim Creat Clear Calc 152.0 Estimated GFR > 60 POC Glucose 92 100 Random Glucose 106 Calcium 9.1 Urine Color Urine Appearance Urine pH Ur Specific [place] Urine Protein Urine Glucose (UA) Urine Ketones Urine Blood Urine Nitrite Ur Leukocyte Esterase Urine RBC Urine WBC Ur Squamous Epith Cells Urine Bacteria Hyaline Casts Chlam trachomat DNA PCR N.gonorrhoeae DNA (PCR) 12/31/21 12/31/21 01/01/22 16:32 20:23 08:17 WBC RBC Hgb Hct MCV MCH MCHC RDW Plt Count MPV Immature Gran % (Auto) Neut % (Auto) Lymph % (Auto) [place] % (Auto) Eos % (Auto) Baso % (Auto) Lymph # (Auto) [place] # (Auto) Eos # (Auto) Baso # (Auto) Abs Immat Gran (auto) Absolute Neuts (auto) Absolute Nucleated RBC Nucleated RBC % (auto) Sodium Potassium Chloride Carbon Dioxide Anion Gap BUN Creatinine Estim Creat Clear Calc Estimated GFR POC Glucose 69 126 H 101 Random Glucose Calcium Urine Color Urine Appearance Urine pH Ur Specific [place] Urine Protein Urine Glucose (UA) Urine Ketones Urine Blood Urine Nitrite Ur Leukocyte Esterase Urine RBC Urine WBC Ur Squamous Epith Cells Urine Bacteria Hyaline Casts Chlam trachomat DNA PCR N.gonorrhoeae DNA (PCR) 01/01/22 01/01/22 01/01/22 12:03 17:11 21:54 WBC RBC Hgb Hct MCV MCH MCHC RDW Plt Count MPV Immature Gran % (Auto) Neut % (Auto) Lymph % (Auto) [place] % (Auto) Eos % (Auto) Baso % (Auto) Lymph # (Auto) [place] # (Auto) Eos # (Auto) Baso # (Auto) Abs Immat Gran (auto) Absolute Neuts (auto) Absolute Nucleated RBC Nucleated RBC % (auto) Sodium Potassium Chloride Carbon Dioxide Anion Gap BUN Creatinine Estim Creat Clear Calc Estimated GFR POC Glucose 84 149 H 108 Random Glucose Calcium Urine Color Urine Appearance Urine pH Ur Specific [place] Urine Protein Urine Glucose (UA) Urine Ketones Urine Blood Urine Nitrite Ur Leukocyte Esterase Urine RBC Urine WBC Ur Squamous Epith Cells Urine Bacteria Hyaline Casts Chlam trachomat DNA PCR N.gonorrhoeae DNA (PCR) 01/02/22 01/02/22 01/02/22 07:52 12:25 16:31 WBC RBC Hgb Hct MCV MCH MCHC RDW Plt Count MPV Immature Gran % (Auto) Neut % (Auto) Lymph % (Auto) [place] % (Auto) Eos % (Auto) Baso % (Auto) Lymph # (Auto) [place] # (Auto) Eos # (Auto) Baso # (Auto) Abs Immat Gran (auto) Absolute Neuts (auto) Absolute Nucleated RBC Nucleated RBC % (auto) Sodium Potassium Chloride Carbon Dioxide Anion Gap BUN Creatinine Estim Creat Clear Calc Estimated GFR POC Glucose 69 130 H 93 Random Glucose Calcium Urine Color Urine Appearance Urine pH Ur Specific [place] Urine Protein Urine Glucose (UA) Urine Ketones Urine Blood Urine Nitrite Ur Leukocyte Esterase Urine RBC Urine WBC Ur Squamous Epith Cells Urine Bacteria Hyaline Casts Chlam trachomat DNA PCR N.gonorrhoeae DNA (PCR) 01/03/22 01/03/22 01/03/22 08:28 12:45 15:45 WBC RBC Hgb Hct MCV MCH MCHC RDW Plt Count MPV Immature Gran % (Auto) Neut % (Auto) Lymph % (Auto) [place] % (Auto) Eos % (Auto) Baso % (Auto) Lymph # (Auto) [place] # (Auto) Eos # (Auto) Baso # (Auto) Abs Immat Gran (auto) Absolute Neuts (auto) Absolute Nucleated RBC Nucleated RBC % (auto) Sodium Potassium Chloride Carbon Dioxide Anion Gap BUN Creatinine Estim Creat Clear Calc Estimated GFR POC Glucose 94 96 Random Glucose Calcium Urine Color Urine Appearance Urine pH Ur Specific [place] Urine Protein Urine Glucose (UA) Urine Ketones Urine Blood Urine Nitrite Ur Leukocyte Esterase Urine RBC Urine WBC Ur Squamous Epith Cells Urine Bacteria Hyaline Casts Chlam trachomat DNA PCR NOT DETECTED N.gonorrhoeae DNA (PCR) NOT DETECTED 01/03/22 01/03/22 01/04/22 15:45 16:42 08:18 WBC RBC Hgb Hct MCV MCH MCHC RDW Plt Count MPV Immature Gran % (Auto) Neut % (Auto) Lymph % (Auto) [place] % (Auto) Eos % (Auto) Baso % (Auto) Lymph # (Auto) [place] # (Auto) Eos # (Auto) Baso # (Auto) Abs Immat Gran (auto) Absolute Neuts (auto) Absolute Nucleated RBC Nucleated RBC % (auto) Sodium Potassium Chloride Carbon Dioxide Anion Gap BUN Creatinine Estim Creat Clear Calc Estimated GFR POC Glucose 123 H 108 Random Glucose Calcium Urine Color Yellow Urine Appearance Cloudy Urine pH 6.0 Ur Specific [place] 1.020 Urine Protein 30 (1+) H Urine Glucose (UA) Negative Urine Ketones Negative Urine Blood Trace H Urine Nitrite Positive H Ur Leukocyte Esterase Large (3+) H Urine RBC 3-5 H Urine WBC >50 H Ur Squamous Epith Cells 0-2 Urine Bacteria 2+ Hyaline Casts 3-5 Chlam trachomat DNA PCR N.gonorrhoeae DNA (PCR) 01/04/22 01/04/22 01/04/22 11:22 17:01 21:04 WBC RBC Hgb Hct MCV MCH MCHC RDW Plt Count MPV Immature Gran % (Auto) Neut % (Auto) Lymph % (Auto) [place] % (Auto) Eos % (Auto) Baso % (Auto) Lymph # (Auto) [place] # (Auto) Eos # (Auto) Baso # (Auto) Abs Immat Gran (auto) Absolute Neuts (auto) Absolute Nucleated RBC Nucleated RBC % (auto) Sodium Potassium Chloride Carbon Dioxide Anion Gap BUN Creatinine Estim Creat Clear Calc Estimated GFR POC Glucose 137 H 123 H 94 Random Glucose Calcium Urine Color Urine Appearance Urine pH Ur Specific [place] Urine Protein Urine Glucose (UA) Urine Ketones Urine Blood Urine Nitrite Ur Leukocyte Esterase Urine RBC Urine WBC Ur Squamous Epith Cells Urine Bacteria Hyaline Casts Chlam trachomat DNA PCR N.gonorrhoeae DNA (PCR) 01/05/22 08:15 WBC 4.6 L RBC 4.94 Hgb 14.7 Hct 43.9 MCV 88.9 MCH 29.8 MCHC 33.5 RDW 12.1 Plt Count 298 MPV 9.6 Immature Gran % (Auto) 0.2 Neut % (Auto) 41.8 L Lymph % (Auto) 35.7 [place] % (Auto) 13.3 H Eos % (Auto) 8.1 H Baso % (Auto) 0.9 Lymph # (Auto) 1.6 [place] # (Auto) 0.6 Eos # (Auto) 0.4 Baso # (Auto) 0.0 Abs Immat Gran (auto) 0.01 Absolute Neuts (auto) 1.9 L Absolute Nucleated RBC 0.000 Nucleated RBC % (auto) 0.0 Sodium Potassium Chloride Carbon Dioxide Anion Gap BUN Creatinine Estim Creat Clear Calc Estimated GFR POC Glucose Random Glucose Calcium Urine Color Urine Appearance Urine pH Ur Specific [place] Urine Protein Urine Glucose (UA) Urine Ketones Urine Blood Urine Nitrite Ur Leukocyte Esterase Urine RBC Urine WBC Ur Squamous Epith Cells Urine Bacteria Hyaline Casts Chlam trachomat DNA PCR N.gonorrhoeae DNA (PCR) 01/03/22 17:50 Urine clean catch - Clean Catch Midstream Urine Culture - Final Escherichia coli 12/16/21 Unknown Urine clean catch - Urine wheeler top Urine Culture - Final Escherichia coli DS: Summary Hospital Course Hospital Course: Sukhwinder is a 46 y.o. Male who carries a dx of polysubstance abuse, MDD recurrent with psychotic features. He presented to [facility] ED on 12/16/2021 due SI with plan to stab himself, depression, and CAH telling him he should kill himself, poor sleep/ appetite. Precipitating factors include relapse on substances with daily opiate abuse, med non-adherence x 2 weeks, and chronic homelessness. Hx of multiple detox and inpatient admissions, hx of not following through with outpatient referrals. Last admitted to [facility] in 11/2020. Utox positive for opiates, fentanyl, cocaine, amphetamines, and cannabis. 12/18 depressed, intermittent SI; AH subsiding.? In withdrawal and on CIWA. For right now patient agrees to leave medication doses where they are, specifically Wellbutrin and Abilify and to reassess once he is through withdrawal.? Sc[employer] D[employer] Training Instructor discussed with patient that symptom reduction is only consistently possible if patient pursue sobriety and engages in therapy to which he agrees. 12/19/2021: No changes to current treatment plan.? Maintain CIWA with Ativan for withdrawals.? May consider increasing Abilify.? Will review tomorrow 12/20/21: increase seroquel to 200mg as very poor sleep and patient preferred night meds increased versus abilify 12/21 mood is a little better, SI diminished; has passive intermittent SI however this is chronic.? Wants gabapentin put back to 600 t.i.d. saying that he needs this for neuropathy.? Although this medication carries risks especially when combined with substance abuse, patient has been on this medication for years; lowering dose at this point increase his risk for worsened neuropathic pain which is a trigger for patient's relapse.? At this time, health underwriter considers the potential benefit outweighs the potential risk and agrees to increase gabapentin back to 600 mg; this is still a reduced dose from his past dosing at 100 mg t.i.d. 12/22 patient reports mood is better still; still depressed but no SI.? Hoping to get into a substance abuse treatment program but understands this may not be available and he'll and of going to a halfway.? Patient is close to or at baseline. 12/23 patient is polite and expressing gratitude for help received.? He reports that he remains doing better; says has intermittent passive SI which he says is chronic and normal for him.? AH is very minimal and able to be ignored.? Still focused on getting into a program. 12/24, patient remains doing better and feels he is back to his regular self.? Still focused on program 12/25; remains stable ?12/27/2021:? continue current treatment plan. 12/28 remains stable, improved mood, hopeful. Patient's blood sugar levels have remained stable and he has not needed sliding scale very much, with only 1 value over 200 on 12/26 12/29 patient reports good mood and is with a significantly brighter affect; also much more social in the milieu.? Hopeful about getting into a program but accepts will go to a halfway if not 12/31 remains good mood and hopeful; calling programs on his own.? Discussed diabetes and patient says his sugars have return to close to normal since he lost 100 lb over the past few months due to not eating since he was engaged in excessive drug use 01/01 patient is doing well however health underwriter agrees that discharging to a halfway puts him at high risk for relapse.? Patient understands this risk and also understands it may be his only option however he remains hopeful to get into a program.? Mood remains good, no SI. 01/03 Patient is stable.? He is anxious about tomorrow, not knowing a full get into a program or not, not really looking for to going to a halfway.? Patient complains of some dysuria.? Will order UA and STD test 01/04 disappointed not in program.? Refuses all offers for programs in the near vicinity, wanting to be in a different location; says he prefers the streets to any program or halfway in the area.? No SI. Discussed patient's history of UTI.? He says that he gets them frequently for the past year.? Antibiotics will clear up the symptoms but the symptoms/UTI soon returns.? He says this coincides with the past 1 year history of symptoms and indicative of enlarged prostate (having trouble initiating stream, dribbles, has to push for stream to come out).? Scuba Dive Training Instructor discussed case with hospitalist Dr. Allred who recommends Ceftin 500 mg b.i.d. for 7 days as well as Flomax.? Dr. Cooper urologist concurs and wants to have added finasteride 5 mg daily.? Discussed with patient who welcomes treatment. Later that day, patient was enthusiastic about his new plan. He would like to discharge tomorrow and have his father picked him up. His father agrees to take him to a program he has been to before, [place] where he will self present. Patient is optimistic about this plan. He remains in a good mood with much brighter affect; he denies SI and AVH and is hopeful about continued stability. He expresses gratitude for the help he has received on the unit. Scuba Dive Training Instructor discussed medical conditions and patient understands medications he needs to take and says that he will follow up with his PCP, appointment made. He also says he will follow-up with the urologist. Patient has remained in good behavioral and impulse control, appropriate with peers and staff. Patient is not in imminent risk for harm to self or others and his request for discharge is honored. Time spent discussing smoking cessation with patient: 3 to 10 minutes Status at Discharge Functional status at discharge: independent ambulation Time Spent with Patient Time attestation: Total time spent providing and/or coordinating discharge services: Time spent: Greater than 30 minutes Discharge Plan Discharge Patient Disposition: Assisted Discharge Diagnosis: MDD, recurrent, severe with psychosis in full remission Referrals: [facility] [Other] (You have been accepted to the program and can go when a bed becomes available. Call the number above every morning to ask about beds. If you cannot reach anyone, try an additional number: [phone]. Once accepted, you will need to work with [facility] to get set up with guest dosing at a clinic near them, they will give you instructions on who to contact) [facility] [Other] (Referral has been submitted. Call daily to ask about bed availability to remain on the waitlist) [facility] (halfway) [Other] (Arrive by 3pm to the emergency men's halfway for a bed) [facility] (halfway) [Other] (Arrive by 4pm to get a bed for the night. The resource center is open all day and serves meals, you can wait there until the halfway opens) [facility] [Provider Group] - 01/12/22 7:30 pm (Appointment with Dr. Martin Major) Giovanny Cooper MD [Physician] - 06/15/22 3:30 pm Physician,Nell J [Primary Care Provider] - 1 Week Discharge Medications: New insulin glargine [Lantus U-100 Insulin] 100 unit/mL Solution 70 unit subcut BEDTIME 30 Days Qty: 21 0RF Rx Instructions: quantity 7 (DME) FreeStyle Lite Strips Strip See Rx Instructions .Route Qty: 100 1RF Rx Instructions: As directed (DME) insulin syringe-needle U-100 [FreeStyle Precision] 1 mL 31 gauge x 5/16 syringe See Rx Instructions .Route Qty: 100 0RF Rx Instructions: As directed insulin lispro [Humalog U-100 Insulin] 100 unit/mL Solution See Protocol subcut QIDACHS PRN (Reason: as needed per blood sugar) 30 Days Qty: 10 0RF Protocol: Insulin Correction Scale Less than or equal to 110 ---- Give (units): 0 111 to 150 Give (units): 0 151 to 200 Give (units): 2 201 to 250 Give (units): 4 251 to 300 Give (units): 6 301 to 350 Give (units): 8 Greater than 350 Give (units): 10 Call MD if Blood Glucose > : 350 Rx Instructions: Less than or equal to 110 ---- Give (units): 0 111 to 150 Give (units): 0 151 to 200 Give (units): 2 201 to 250 Give (units): 4 251 to 300 Give (units): 6 301 to 350 Give (units): 8 Greater than 350 Give (units): 10 Call your PCP if Blood Glucose is at or over:350 cefuroxime axetil 500 mg Tablet 500 mg PO BID 6 Days Qty: 11 0RF nicotine 21 mg/24 hr Patch 24 Hour 21 mg transdermal DAILY 28 Days Qty: 28 0RF tamsulosin 0.4 mg Capsule 0.4 mg PO DAILY 30 Days Qty: 30 0RF aripiprazole 10 mg Tablet 10 mg PO DAILY 30 Days Qty: 30 0RF quetiapine 200 mg Tablet 200 mg PO BEDTIME 30 Days Qty: 30 0RF docusate sodium 100 mg Capsule 100 mg PO BID PRN (Reason: constipation) 30 Days Qty: 30 0RF multivitamin [Daily-Dwayne] Tablet 1 tab PO DAILY 30 Days Qty: 30 0RF finasteride [Proscar] 5 mg Tablet 5 mg PO DAILY 30 Days Qty: 30 0RF Continued amlodipine 10 mg tablet 10 mg PO DAILY 30 Days Qty: 30 0RF trazodone 100 mg tablet 150 mg PO BEDTIME 30 Days Qty: 45 0RF buprenorphine-naloxone 8-2 mg Tablet, Sublingual 1 tab SUBLINGUAL TID 30 Days Qty: 90 0RF Changed gabapentin 600 mg tablet 600 mg PO TID 30 Days Qty: 90 0RF quetiapine 200 mg tablet 200 mg PO BEDTIME 30 Days Qty: 30 0RF pantoprazole 40 mg tablet,delayed release (DR/EC) 40 mg PO QAM 30 Days Qty: 30 0RF bupropion HCl 300 mg tablet extended release 24 hr 300 mg PO QAM 30 Days Qty: 30 0RF Rx Instructions: take with 150mg tab bupropion HCl 150 mg tablet extended release 24 hr 150 mg PO QAM 30 Days Qty: 30 0RF Rx Instructions: take with 300mg tab metformin 500 mg tablet 500 mg PO BID 30 Days Qty: 60 0RF Discontinued aripiprazole 5 mg tablet 1 tab PO DAILY Discharge Orders: Discharge Order (Routine); Ordered 01/05/22 Ordered By: Tirso Aquino Diet: Diabetic diet Activity on Discharge: As tolerated Stand Alone Forms: Patient Portal Discharge page, Community Support Care Plan Goals: Maintain mood and safe behaviors Take medications as prescribed Continue to pursue sobriety Practice coping skills Continue with outpatient providers and reach out to them as needed Health Concerns: Mood stability and behaviors Sobriety Diabetes II Neuropathy Recurrent UTI Hx BPH Plan of Treatment: Follow up with your PCP, psychiatric provider and other outpatient providers regarding above concerns Also, follow up with Urologist Dr. Cooper Take medications as prescribed Assessment: Risk assessment at time of discharge:? Patient was interviewed prior to discharge and found to be fully oriented and without any SI or HI. Patient has insight and demonstrates good judgment in terms of wanting to pursue treatment. Patient is not in imminent risk of harm to self or others and has a safety plan that includes presenting to the closest ER or calling 911 if feeling unsafe.? Patient has been observed closely by nursing and unit staff throughout admission; patient has not engaged in any behaviors that suggest dangerousness to self or others and has demonstrated appropriate behaviors and impulse control
[2022-01-05 12:29] LABS: Glucose, Whole Blood 131 mg/dL (60-115)
--- NOTE | 2022-02-05 16:00 | P.EN_ITS ---
Event Note Date of Service: 02/05/22 Event Note: [facility] pharmacy called radio news writer saying that pt was in pharmacy asking for refill of Suboxone. Dependency Case Manager reviewed chart. Patient was on inpt unit and asked for Suboxone script upon discharge to bridge him until he got to a new Suboxone Clinic as he was moving out of town. Dependency Case Manager gave him a 30 day supply. Patient returned to the ED at [place] within less than a week saying he needed detox from opioids. He returned again on 01/15/2020 to requesting detox. Dependency Case Manager talked to SAI Gray saw patient on consult and informs that patient was accepted to a [facility] program however decided at the end did not go and instead discharged to his father's house. Dependency Case Manager has not seen patient in a month; there is a protocol for suboxone prescriptions and it is illegal to prescribe without having seen patient within a month; furthermore he is not using it as prescribed and it is unclear patient's current situation or medical status. He has no follow up. is unable to fill this prescription which was communicated to [facility] staff.
== END 2022-01-05 11:41 | disposition home or self-care (01) | DRG 751 ==
LOC: HO.ED 12-17 11:03 → HO.PM5 12-17 14:26
PROVIDERS: Clinical Nurse Specialist Psychiatric/Mental Health, Adult; Emergency Medicine; Admitting Provider Psychiatry & Neurology Psychiatry; Emergency Provider Emergency Medicine Emergency Medical Services; Visit Provider Psychiatry & Neurology Psychiatry
DX: F33.3 Major depressive disorder, recurrent, severe with psychotic symptoms (principal); R45.851 Suicidal ideations; E11.40 Type 2 diabetes mellitus with diabetic neuropathy, unspecified; F11.20 Opioid dependence, uncomplicated; G89.29 Other chronic pain; F15.10 Other stimulant abuse, uncomplicated; N40.1 Benign prostatic hyperplasia with lower urinary tract symptoms; R39.11 Hesitancy of micturition; Z20.822 Contact with and (suspected) exposure to COVID-19; Z87.440 Personal history of urinary (tract) infections; Z79.4 Long term (current) use of insulin; Z79.84 Long term (current) use of oral hypoglycemic drugs; Z79.899 Other long term (current) drug therapy
CPT/HCPCS: 36415; 80048; 80061; 80076; 80307; 81001; 82077; 82565; 82607; 82746; 82947; 83036; 83735; 84439; 84443; 85025; 87086; 87088; 87186; 87491; 87591; 87635; 92950; 93005; 99285

== ENCOUNTER 2022-01-11 07:58 | Emergency (ER) | payer MEDICAID, SELFPAY ==
[2022-01-11 08:06] VITALS: BP 160/112; PULSE 74; RESP 16; TEMP 36.1; O2SAT 96; BMI 24.2
[2022-01-11] MEDS: LORazepam 1 MG TABLET 2 MG PO (08:19)
--- OUTSIDE RECORDS SUMMARY | 2022-01-11 08:19 | XMS_ITS | Continuity of Care Document ---
:1975 Author Organization [facility] Address [address] [place] [address]- Care Team Providers Name Role Phone Not on Staff, PCP Primary Care Physician Unavailable [facility]counter [facility] Date[facility]s): 07/[facility]/19 - 07/10/[address] [address]- [facility] Encounter Diagnosis Acute depression (Final) - 07/10/19 Discharge Disposition: A-D/C Home Attending Physician: Misha Gibson MD Admitting Physician: Misha Gibson MD Referring Physician: Not on Staff, Referring MD Allergies, Adverse Reactions, Alerts Substance Reaction Severity Status NKA Active Immunizations Given and Recorded Vaccine Date Status Refusal Reason pneumococcal 23-valent vaccine 04/13/19 Given influenza virus vaccine, inactivated 02/01/19 Given tetanus-diphtheria toxoids (Td) 12/10/06 Given Rabies Vaccine (oldterm) 12/10/06 Given Not Given Vaccine Date Status Refusal Reason pneumococcal 23-valent vaccine 02/01/19 Not Given P atient Refuses Medications acetaminophen 325 mg oral tablet 650 mg, By Mouth, Every 4 hours, PRN, Refills 0, Maintenance, Pain , Mild, 04/25/19 18:32:00 EST Start Date: 04/25/19 Status: Orderedalbuterol CFC free 90 mcg/inh inhalation aerosol 90 mcg, 1, puffs, Inhalation, Every 4 hours, PRN, # 1 each, Refills 0, Tot. Refills 0, Maintenance, 04/25/19 18:32:00 EST, Inhaler, Route to Pharmacy Electronically, [id number], [facility], 183, cm, 04/25/19... Start Date: 04/25/19 Status: Orderedatorvastatin 20 mg oral tablet 1 tablet = 20 mg, By Mouth, Daily, # 30 tablet, 0 Refills, Maintenance, 04/25/19 18:28:00 EST, Tablet, [facility], 183, cm, 04/25/19 18:04:00 EST, Height, 104, kg, 04/11/19 0:21:00 EST, Dry Weight Start Date: 04/25/19 Status: Orderedbuprenorphine-naloxone 8 mg-2 mg sublingual film 1 film, Sublingual, Daily, [facility] [id number], # 12 film, 0 Refills, Maintenance, 04/25/19 18:32:00 EST, Film, [facility], 1 film Sublingual Daily,Instr:[facility] [id number], 183, cm, 04/25/19 18:04:00 EST, Height, 104, kg, 04/11/19 0:21:00 EST,... Start Date: 04/25/19 Status: OrderedbuPROPion 150 mg/12 hours (SR) oral tablet, extended release 1 tablet = 150 mg, By Mouth, 2 times a day, # 60 tablet, 0 Refills, Maintenance, 04/25/19 18:28:00 EST, SR Tablet, [facility], 183, cm, 04/25/19 18:04:00 EST, Height, 104, kg, 200:21:00 EST, Dry Weight Start Date: 04/25/19 Status: OrderedcloNIDine 0.1 mg oral tablet 0.1 mg, 1, tablet, By Mouth, 2 times a day, PRN, # 60 tablet, Refills 0, Tot. Refills 0, Maintenance, Anxiety Other, 04/25/19 18:32:00 EST, Route to Pharmacy Electronically, [facility], 183, cm, 04/25/19 18:04:00 EST, Height, 104, k... Start Date: 04/25/19 Status: OrderedColace sodium 100 mg oral capsule 200 mg, 2, capsule, By Mouth, 2 times a day, # 120 capsule, Refills 0, Tot. Refills 0, Maintenance, 04/25/19 18:33:00 EST, Route to Pharmacy Electronically, [facility], 183, cm, 04/25/19 18:04:00 EST, Height, 104, kg, 04/11/19 0:21:00... Start Date: 04/25/19 Status: OrderedContour Next EZ Glucometer See Instructions, # 1 each, Refills 0, Tot. Refills 0, Maintenance, use as directed for Type 1 Diabetes Mellitus. May be interchanged with any device that is covered by his insurance., 04/26/19 11:29:00 EST, Compound, 183, cm, 04/25/19 18:04:00 EST,... Start Date: 04/26/19 Status: OrderedFreestyle Lancets See Instructions, # 200 each, Refills 0, Tot. Refills 0, Maintenance, use as directed for Type 1 Diabetes Mellitus. may be interchanged with any type that is covered by his insurance., 04/26/19 11:31:00 EST, Compound, 183, cm, 04/25/19 18:04:00 EST,... Start Date: 04/26/19 Stop Date: 05/26/19 Status: OrderedFreestyle Lite Test Strips See Instructions, # 200 each, Refills 0, Tot. Refills 0, Maintenance, use as directed for Type 1 Diabetes Mellitus. May be interchanged with any strip type that is covered by his insurance., 04/26/19 11:30:00 EST, Compound, 183, cm, 04/25/19 18:04:00... Start Date: 04/26/19 Stop Date: 05/26/19 Status: Orderedgabapentin 800 mg oral tablet 1 tablet = 800 mg, By Mouth, 3 times a day, # 90 tablet, 0 Refills, Maintenance, 04/25/19 18:28:00 EST, Tablet, [facility], 183, cm, 04/25/19 18:04:00 EST, Height, 104, kg, 04/11/19 0:21:00 EST, Dry Weight Start Date: 04/25/19 Status: OrderedhydrOXYzine pamoate 25 mg oral capsule = 25 mg, By Mouth, 2 times a day, PRN Anxiety, if clonidine ineffective, # 60 capsule, 0 Refills, Maintenance, 04/25/19 18:33:00 EST, Capsule, [facility], 183, cm, 04/25/19 18:04:00 EST, Height, 104, kg, 04/11/19 0:21:00 EST, Dry Weight Start Date: 04/25/19 Status: Orderedinsulin glargine 100 units/mL subcutaneous solution 0.8 mL = 80 units, Subcutaneous Injection, Daily at bedtime, # 24 mL, 0 Refills, Maintenance, 04/26/19 11:27:00 EST, Injection, [facility], 183, cm, 04/25/19 18:04:00 EST, Height, 104,kg, 04/11/19 0:21:00 EST, Dry Weight Start Date: 04/26/19 Stop Date: 05/26/19 Status: Orderedinsulin lispro 100 u/ml subcutaneous injection 4-14 units, Subcutaneous Injection, 3 times a day before meals, # 15 mL, 0 Refills, Maintenance, 04/26/19 11:27:00 EST, Injection, [facility], 150 - 199 4 units; 200 - 249 8 units; 250- 299 10 units; 300 - 349 12 units, 183,... Start Date: 04/26/19 Stop Date: 05/26/19 Status: OrderedInsulin Syringe, BD Ultra-Fine 0.3 cc 30 G x 12.7 mm (1/2in) See Instructions, # 100 each, Refills 0, Tot. Refills 0, Maintenance, use as directed for Type 1 Diabetes Mellitus, 04/26/19 11:38:00 EST, Compound, 183, cm, 04/25/19 18:04:00 EST, Height, 104, kg, 04/11/19 0:21:00 EST, Dry Weight Start Date: 04/26/19 Stop Date: 05/26/19 Status: Orderedlisinopril 20 mg oral tablet 20 mg, 1, tablet, By Mouth, Daily, # 30 tablet, Refills 0, Tot. Refills 0, Maintenance, 04/25/19 18:30:00 EST, Route to Pharmacy Electronically, [facility], 183, cm, 04/25/19 18:04:00 EST, Height, 104, kg, 04/11/19 0:21:00 EST, Dry We... Start Date: 04/25/19 Status: OrderedmetFORMIN 500 mg oral tablet 1 each = 500 mg, By Mouth, 2 times a day, # 60 tablet, 0 Refills, Maintenance, 04/25/19 18:30:00 EST, Tablet, [facility], 183, cm, 04/25/19 18:04:00 EST, Height, 104, kg, 04/11/19 0:21:00 EST, Dry Weight Start Date: 04/25/19 Status: Orderedpantoprazole 40 mg oral delayed release tablet = 40 mg, By Mouth, Daily, # 30 tablet, 0 Refills, Maintenance, 04/25/19 18:35:00 EST, EC Tablet, 183, cm, 04/25/19 18:04:00 EST, Height, 104, kg, 04/11/19 0:21:00 EST, Dry Weight Start Date: 04/25/19 Status: OrderedSEROquel 200 mg oral tablet 200 mg, 1, tablet, By Mouth, Daily at bedtime, # 30 tablet, Refills 0, Tot. Refills 0, Maintenance, 04/25/19 18:30:00 EST, Route to Pharmacy Electronically, [facility], 183, cm, 04/25/19 18:04:00 EST, Height, 104, kg, 04/11/19 0:21:00... Start Date: 04/25/19 Status: Orderedsertraline 100 mg oral tablet 1 tablet = 100 mg, By Mouth, Daily, # 30 tablet, 0 Refills, Maintenance, 04/25/19 18:31:00 EST, Tablet, [facility], 183, cm, 04/25/19 18:04:00 EST, Height, 104, kg, 04/11/19 0:21:00 EST, Dry Weight Start Date: 04/25/19 Status: OrderedtraZODone 100 mg oral tablet 200 mg, 2, tablet, By Mouth, Daily at bedtime, # 60 tablet, Refills 0, Tot. Refills 0, Maintenance, 04/25/19 18:31:00 EST, Route to Pharmacy Electronically, [facility], 183, cm, 04/25/19 18:04:00 EST, Height, 104, kg, 04/11/19 0:21:00... Start Date: 04/25/19 Status: Ordered Problem List Condition Effective Dates Status Health Status Informant Asthma(Confirmed) Active Hyperlipidemia(Confirmed) Active Hypertension(Confirmed) Active Nicotine dependence(Confirmed) Active Polysubstance abuse(Confirmed) Active DM2 (diabetes mellitus, type Active 2)(Confirmed) Vital Signs Most recent to oldest [Reference Range]: 1 2 Oxygen Saturation [94-100 %] 98 % 95 % (07/10/19 1:24 PM) (07/10/19 7:58 AM) Pulse Rate [55-90 bpm] 64 bpm 89 bpm (07/10/19 1:24 PM) (07/10/19 7:58 AM) Blood Pressure [90-138/55-84 mm Hg] 152/101 mm Hg 151/ 94 mm Hg *H* *H* (07/10/19 1:24 PM) (07/10/19 7:58 AM) Respiratory Rate [16-30 br/min] 18 br/min 24 br/mi n (07/10/19 1:24 PM) (07/10/19 7:58 AM) Temperature [96.8-100.4 DegF] 98.8 DegF (07/10/19 7:58 AM) Liters per Minute 0 L/min 0 L/min (07/10/19 1:24 PM) (07/10/19 7:58 AM) Mode of Delivery (Oxygen) Room air Room air (07/10/19 1:24 PM) (07/10/19 7:58 AM) Blood pressure sites Arm, left Arm, left (07/10/19 1:24 PM) (07/10/19 7:58 AM) Temperature Route Oral (07/10/19 7:58 AM) Social History Social History Type Response Smoking Status 5-9 cigarettes (between 1/4 to 1/2 pack)/day in last 30 days; Type: Cigarettes entered on: 01/31/19 Sex
--- OUTSIDE RECORDS SUMMARY | 2022-01-11 08:19 | XMS_ITS | Continuity of Care Document ---
:1975 Author Organization [facility] Address [address] [place] [address]- Care Team Providers Name Role Phone Not on Staff, PCP Primary Care Physician Unavailable [facility]counter [facility] Date(s): 04/07/19 - 04/10/[address] [address]- [facility] Encounter Diagnosis Suicidal behavior (Final) - 04/07/19 Discharge Disposition: Transfer to [facility] Facility Attending Physician: Giovanny Guevara MD Admitting Physician: Giovanny Guevara MD Referring Physician: Not on Staff, Referring MD Allergies, Adverse Reactions, Alerts Substance Reaction Severity Status Subutex Active Immunizations Given and Recorded Vaccine Date Status Refusal Reason influenza virus vaccine, inactivated 02/01/19 Given tetanus-diphtheria toxoids (Td) 12/10/06 Given Rabies Vaccine (oldterm) 12/10/06 Given Not Given Vaccine Date Status Refusal Reason pneumococcal 23-valent vaccine 02/01/19 Not Given P atient Refuses Medications atorvastatin 20 mg oral tablet 1 tablet = 20 mg, By Mouth, Daily, # 30 tablet, 0 Refills, Maintenance, 02/13/19 10:28:08 EST, Tablet Start Date: 02/13/19 Status: Orderedgabapentin 800 mg oral tablet 1 tablet = 800 mg, By Mouth, 3 times a day, # 90 tablet, 0 Refills, Maintenance, 02/13/19 10:30:21 EST, Tablet Start Date: 02/13/19 Status: Orderedinsulin glargine (concentrated) 300 units/mL subcutaneous solution = 70 units, Subcutaneous Injection, Daily at bedtime, # 6 mL, 0 Refills, Maintenance, 02/13/19 10:30:37 EST, Solution Start Date: 02/13/19 Status: Orderedinsulin lispro 100 units/mL injectable solution 16-36 units, Subcutaneous Injection, 3 times a day before meals, 80 - 109 16 units 110 - 139 18 units 140 - 169 20 units, # 15 mL, 0 Refills, Maintenance, 02/13/19 10:37:08 EST, Injection Start Date: 02/13/19 Status: Orderedlisinopril 40 mg oral tablet 1 tablet = 40 mg, By Mouth, Daily, # 30 tablet, 0 Refills, Maintenance, 02/13/19 10:32:23 EST, Tablet Start Date: 02/13/19 Status: OrderedmetFORMIN 1000 mg oral tablet 1 tablet = 1,000 mg, By Mouth, 2 times a day, # 60 tablet, 0 Refills, Maintenance, 02/13/19 10:32:48EST, Tablet Start Date: 02/13/19 Status: OrderedSEROquel 100 mg oral tablet 100 mg, 1, tablet, By Mouth, Daily in AM, # 30 tablet, Refills 0, Tot. Refills 0, Maintenance, 02/13/19 10:33:07 EST, Route to Pharmacy Electronically, [id number], [facility]/pharmacy #[id number] Start Date: 02/13/19 Status: OrderedSEROquel 200 mg oral tablet 200 mg, 1, tablet, By Mouth, Daily at bedtime, # 30 tablet, Refills 0, Tot. Refills 0, Maintenance, 02/13/19 10:33:20 EST, Route to Pharmacy Electronically, [id number], [facility]/pharmacy #[id number] Start Date: 02/13/19 Status: Orderedsertraline 100 mg oral tablet 2 tablet = 200 mg, By Mouth, Daily, # 60 tablet, 0 Refills, Maintenance, 02/13/19 10:34:14 EST, Tablet Start Date: 02/13/19 Status: OrderedtraZODone 100 mg oral tablet 200 mg, 2, tablet, By Mouth, Daily at bedtime, # 60 tablet, Refills 0, Tot. Refills 0, Maintenance, 02/13/19 10:34:46 EST, Route to Pharmacy Electronically, [id number], [facility]/pharmacy #[id number] Start Date: 02/13/19 Status: OrderedWellbutrin XL 150 mg/24 hours oral tablet, extended release 1 tablet = 150 mg, By Mouth, Every 24 hours, Please take Wellbutrin XL 150 and 300 mg tablets together in the morning, # 30 tablet, 0 Refills, Maintenance, 02/13/19 10:28:44 EST, ER Tablet, To be takenalong with Wellbutrin XL 300 mg tablet for a tota... Start Date: 02/13/19 Status: OrderedWellbutrin XL 300 mg/24 hours oral tablet, extended release 1 tablet = 300 mg, By Mouth, Daily, Please take Wellbutrin XL 150 and 300 mg tablets together in themorning, # 30 tablet, 0 Refills, Maintenance, 02/13/19 10:28:42 EST, ER Tablet, To be taken togetherwith Wellbutrin XL 150 mg for a total of 450 mg Start Date: 02/13/19 Status: Ordered Problem List Condition Effective Dates Status Health Status Informant Asthma(Confirmed) Active Hyperlipidemia(Confirmed) Active Hypertension(Confirmed) Active Nicotine dependence(Confirmed) Active Polysubstance abuse(Confirmed) Active DM2 (diabetes mellitus, type Active 2)(Confirmed) Results Radiology Reports Exam Date Time Procedure Performing Provider Status 04/07/19 8:41 AM Chest 2 Views Frontal and Lat Jeison Myers ; Alondra (Verified) Notes:(Chest 2 Views Frontal and Lat) Reason For Exam: AnginaRESULT: Chest 2 Views Frontal and Lat Chest 2 Views Frontal and Lat Refer to EMR; Reason: Angina; Clinical Question(s): CHF; Hx of Present Illness: Homeless, relapsed yesterday, was clean for a month, using everything coke dope [employer], drinking X 3 days straight,all in aims to end life, + SI and HI. off meds X 4 days; Other Objective Findings: Alert and awake, reporting severe depression, SI with plan to OD, erporting CP, + CMS, reporting tight breathing COMPARISON: 01/31/2019 FINDINGS: LINES AND TUBES: None. LUNGS AND PLEURA: Clear lungs. Normal pulmonary vascularity. No pleural effusion. No pneumothorax. HEART, MEDIASTINUM AND VAL: Heart is normal in size. Normal mediastinal and hilar contour. BONES AND SOFT TISSUES: No acute abnormality. IMPRESSION: No acute abnormality. WSN: [id number] Dictated By: Cameron Moise MD Dictated Date/Time: 04/07/19 8:57 am Reviewed By: Cameron Moise MD Signed By: Cameron Moise MD Signed Date/Time: 04/07/19 8:57 am Transcribed By: BREE Transcribed Date/Time: 04/07/19 8:56 am Vital Signs Most recent to oldest 1 2 3 [Reference Range]: Oxygen Saturation [94-100 100 % 97 % 98 % %] (04/09/19 9:12 PM) (04/09/19 2:41 PM) (04/09/19 10:45 AM) Pulse Rate [55-90 bpm] 91 bpm 93 bpm 82 bpm *H* *H* (04/09/19 10:45 AM) (04/09/19 9:12 PM) (04/09/19 2:41 PM) Blood Pressure 124/82 mm Hg 128/92 mm Hg 117/72 mm Hg [90-138/55-84 mm Hg] (04/09/19 9:12 PM) (04/09/19 2:41 PM) (03/13 10:45 AM) Respiratory Rate [16-30 19 br/min 18 br/min 17 br/mi n br/min] (04/09/19 9:12 PM) (04/09/19 2:41 PM) (04/09/19 10:45 AM) Temperature [96.8-100.4 98 DegF 98.3 DegF 98.1 Deg F DegF] (04/09/19 9:12 PM) (04/09/19 2:41 PM) (04/09/19 10:45 AM) Mode of Delivery (Oxygen) Room air Room air Room a ir (04/09/19 9:12 PM) (04/09/19 2:41 PM) (04/09/19 10:45 AM) Blood pressure sites Arm, right Arm, right Arm, left (04/09/19 9:12 PM) (04/09/19 2:41 PM) (04/09/19 10:45 AM) Temperature Route Oral Oral Oral (04/09/19 9:12 PM) (04/09/19 2:41 PM) (04/09/19 10:45 AM) Social History Social History Type Response Smoking Status 5-9 cigarettes (between 04/14 to 04/12 pack)/day in last 30 days; Type: Cigarettes entered on: 01/31/19 Sex
--- OUTSIDE RECORDS SUMMARY | 2022-01-11 08:19 | XMS_ITS | Continuity of Care Document ---
:1975 Author Organization [facility] Address [address] [place] [address]- Care Team Providers Name Role Phone Jaosn Shaikh MD, Pato Primary Care Physician [place] [facility] [place] 06/06/20 - 06/08/[address] [address] Encounter Diagnosis Acute lower urinary tract infection (Final) - 06/06/20 Acute pyelonephritis (Final) - 06/06/20 Discharge Disposition: A-D/C AMA Attending Physician: Franklyn MATA, Kimi Bone Admitting Physician: Kashmir Franks MD Referring Physician: Not on Staff, Referring MD Allergies, Adverse Reactions, Alerts Substance Reaction Severity Status NKA Active Immunizations Given and Recorded Vaccine Date Status Refusal Reason influenza virus vaccine, inactivated 06/07/20 Given influenza virus vaccine, inactivated 02/01/19 Given pneumococcal 23-valent vaccine 04/13/19 Given tetanus-diphtheria toxoids (Td) 12/10/06 Given Rabies Vaccine (oldterm) 12/10/06 Given Not Given Vaccine Date Status Refusal Reason pneumococcal 23-valent vaccine 02/01/19 Not Given P atient Refuses Medications acetaminophen 325 mg oral tablet 650 mg, By Mouth, Every 4 hours, PRN, Refills 0, Maintenance, Pain , Mild, 04/25/19 18:32:00 EST Start Date: 04/25/19 Status: Orderedacetaminophen 325 mg oral tablet 650 mg, Tablet, By Mouth, Every 4 hours, PRN for Pain , Mild, Routine, 06/06/20 15:56:00 EST Start Date: 06/06/20 Stop Date: 06/09/20 Status: Discontinuedalbuterol CFC free 90 mcg/inh inhalation aerosol 90 mcg, 1, puffs, Inhalation, Every 4 hours, PRN, # 1 each, Refills 0, Tot. Refills 0, Maintenance, 04/25/19 18:32:00 EST, Inhaler, Route to Pharmacy Electronically, [id number], [facility], 183, cm, 04/25/19... Start Date: 04/25/19 Status: Orderedatorvastatin 20 mg oral tablet 1 tablet = 20 mg, By Mouth, Daily, # 30 tablet, 0 Refills, Maintenance, 04/25/19 18:28:00 EST, Tablet, [facility], 183, cm, 04/25/19 18:04:00 EST, Height, 104, kg, 04/11/19 0:21:00 EST, Dry Weight Start Date: 04/25/19 Status: Orderedbuprenorphine-naloxone 8 mg-2 mg sublingual film 1 film, Sublingual, Daily, [place] [id number], # 12 film, 0 Refills, Maintenance, 04/25/19 18:32:00 EST, Film, [facility], 1 film Sublingual Daily,Instr:KELTON [id number], 183, cm, 04/25/19 18:04:00 EST, Height, 104, kg, 04/11/19 0:21:00 EST,... Start Date: 04/25/19 Status: OrderedbuPROPion 450 mg/24 hours (XL) oral tablet, extended release 1 tablet = 450 mg, By Mouth, Every 24 hours, # 30 tablet, 0 Refills, Maintenance, 01/11/20 13:44:00 EDT, ER Tablet, [facility]/pharmacy #[id number], 183, cm, 07/26/19 6:13:00 EDT, Height, 106.1, kg, 07/26/19 6:13:00 EDT, Dry Weight Start Date: 01/11/20 Stop Date: 02/10/20 Status: OrderedcloNIDine 0.1 mg oral tablet 0.1 mg, 1, tablet, By Mouth, 2 times a day, PRN, # 60 tablet, Refills 0, Tot. Refills 0, Maintenance, Anxiety Other, 01/11/20 13:45:00 EDT, Route to Pharmacy Electronically, [facility]/pharmacy #[id number], 183, cm, 07/26/19 6:13:00 EDT, Height, 106.1, kg, 07/25... Start Date: 01/11/20 Stop Date: 02/10/20 Status: OrderedColace sodium 100 mg oral capsule 200 mg, 2, capsule, By Mouth, 2 times a day, # 120 capsule, Refills 0, Tot. Refills 0, Maintenance, 04/25/19 18:33:00 EST, Route to Pharmacy Electronically, [facility], 183, cm, 04/25/19 18:04:00 EST, Height, 104, kg, 04/11/19 0:21:00... Start Date: 04/25/19 Status: Orderedgabapentin 400 mg oral capsule 800 mg, Capsule, By Mouth, Hold for: sedation, 06/08/20 9:00:00 EST Start Date: 06/08/20 Stop Date: 06/08/20 Status: Completedgabapentin 800 mg oral tablet 1 tablet = 800 mg, By Mouth, 3 times a day, # 90 tablet, 0 Refills, Maintenance, 01/11/20 13:45:00 EDT, Tablet, [facility]/pharmacy #[id number], 183, cm, 07/26/19 6:13:00 EDT, Height, 106.1, kg, 07/26/19 6:13:00 EDT, Dry Weight Start Date: 01/11/20 Stop Date: 02/10/20 Status: OrderedhydrOXYzine pamoate 25 mg oral capsule = 25 mg, By Mouth, 2 times a day, PRN Anxiety, if clonidine ineffective, # 60 capsule, 0 Refills, Maintenance, 01/11/20 13:47:00 EDT, Capsule, [facility]/pharmacy #[id number], 183, cm, 07/26/19 6:13:00 EDT, Height,106.1, kg, 07/26/19 6:13:00 EDT, Dry Weight Start Date: 01/11/20 Stop Date: 02/10/20 Status: Orderedinsulin glargine 100 units/mL subcutaneous solution 0.8 mL = 80 units, Subcutaneous Injection, Daily at bedtime, # 24 mL, 0 Refills, Maintenance, 04/26/19 11:27:00 EST, Injection, [facility], 183, cm, 04/25/19 18:04:00 EST, Height, 104,kg, 04/11/19 0:21:00 EST, Dry Weight Start Date: 04/26/19 Stop Date: 05/26/19 Status: Orderedinsulin lispro 100 u/ml subcutaneous injection 4-14 units, Subcutaneous Injection, 3 times a day before meals, # 15 mL, 0 Refills, Maintenance, 04/26/19 11:27:00 EST, Injection, [facility], 150 - 199 4 units; 200 - 249 8 units; 250- 299 10 units; 300 - 349 12 units, 183,... Start Date: 04/26/19 Stop Date: 05/26/19 Status: Orderedlisinopril 20 mg oral tablet 20 mg, Tablet, By Mouth, 06/08/20 9:00:00 EST Start Date: 06/08/20 Stop Date: 06/08/20 Status: Completedlisinopril 20 mg oral tablet 20 mg, 1, tablet, By Mouth, Daily, # 30 tablet, Refills 0, Tot. Refills 0, Maintenance, 04/25/19 18:30:00 EST, Route to Pharmacy Electronically, [facility], 183, cm, 04/25/19 18:04:00 EST, Height, 104, kg, 04/11/19 0:21:00 EST, Dry We... Start Date: 04/25/19 Status: OrderedmetFORMIN 500 mg oral tablet 1 each = 500 mg, By Mouth, 2 times a day, # 60 tablet, 0 Refills, Maintenance, 04/25/19 18:30:00 EST, Tablet, [facility], 183, cm, 04/25/19 18:04:00 EST, Height, 104, kg, 04/11/19 0:21:00 EST, Dry Weight Start Date: 04/25/19 Status: Orderedpantoprazole 40 mg oral delayed release tablet = 40 mg, By Mouth, Daily, # 30 tablet, 0 Refills, Maintenance, 04/25/19 18:35:00 EST, EC Tablet, 183, cm, 04/25/19 18:04:00 EST, Height, 104, kg, 04/11/19 0:21:00 EST, Dry Weight Start Date: 04/25/19 Status: OrderedSEROquel XR 150 mg oral tablet, extended release 150 mg, 1, tablet, By Mouth, Daily, # 30 tablet, Refills 0, Tot. Refills 0, Maintenance, 01/11/20 13:46:00 EDT, Route to Pharmacy Electronically, [facility]/pharmacy #[id number], 183, cm, 07/26/19 6:13:00 EDT, Height, 106.1, kg, 07/26/19 6:13:00 EDT, Dry Weight Start Date: 01/11/20 Stop Date: 02/10/20 Status: Orderedsertraline 100 mg oral tablet 1 tablet = 100 mg, By Mouth, Daily, # 30 tablet, 0 Refills, Maintenance, 01/11/20 13:48:00 EDT, Tablet, [facility]/pharmacy #[id number], 183, cm, 07/26/19 6:13:00 EDT, Height, 106.1, kg, 07/26/19 6:13:00 EDT, Dry Weight Start Date: 01/11/20 Stop Date: 02/10/20 Status: OrderedtraZODone 50 mg oral tablet 100 mg, 2, tablet, By Mouth, Daily at bedtime, # 60 tablet, Refills 0, Tot. Refills 0, Maintenance, 01/11/20 13:46:00 EDT, Route to Pharmacy Electronically, [facility]/pharmacy #[id number], 183, cm, 07/26/19 6:13:00 EDT, Height, 106.1, kg, 07/26/19 6:13:00 EDT, Start Date: 01/11/20 Stop Date: 02/10/20 Status: Ordered Problem List Condition Effective Dates Status Health Status Informant Asthma(Confirmed) Active Hyperlipidemia(Confirmed) Active Hypertension(Confirmed) Active Nicotine dependence(Confirmed) Active Polysubstance abuse(Confirmed) Active DM2 (diabetes mellitus, type Active 2)(Confirmed) Results Orders for Microbiology Reports Name Date Urine Culture 06/07/20 Microbiology Reports TEST:Urine Culture STATUS:Auth (Verified) BODY SITE: SOURCE:URINE COLLECTED DATE/TIME:06/07/20 4:44 PMUrine Culture SPECIMEN DESCRIPTION : URINE CLEAN CATCH/MIDSTREAM SPECIAL REQUESTS : NONE CULTURE : <10,000 COL/ML REPORT STATUS : FINAL 1Radiology Reports Exam Date Time Procedure Performing Provider Status 06/05/20 9:56 PM Chest Portable Priya Rodriguez; Alondra (Diann ified) Notes:(Chest Portable) Reason For Exam: Shortness of BreathRESULT: Chest Portable Chest Portable Hx of Present Illness: ems called for CP and ETOH cocaine heroin for the past 5 days. pt states he has not slept in 5 days. also states SI. oriented to person and place. pt has bilateral foot and hand pain; Reason: Shortness of Breath; Clinical Question(s): CHF COMPARISON: X-ray 02/21/2020 FINDINGS: LINES AND TUBES: None. LUNGS AND PLEURA: Low lung volumes with mild basilar atelectasis. Lungs are otherwise clear with no consolidation. No pleural effusion. No pneumothorax. HEART, MEDIASTINUM AND VAL: Heart is normal in size. Normal upper mediastinal and hilar contour. BONES AND SOFT TISSUES: No acute abnormality. IMPRESSION: Low lung volumes with mild basilar atelectasis. No acute abnormality. WSN: [id number] Ordering Physician: Alesia Coley Dictated By: Lewis Gonsales MD Dictated Date/Time: 06/05/20 10:08 p Reviewed By: Lewis Gonsales MD Signed By: Lewis Gonsales MD Signed Date/Time: 06/05/20 10:08 pm Transcribed By: BREE Transcribed Date/Time: 06/05/20 10:08 pm Vital Signs Most recent to oldest 1 2 3 [Reference Range]: Height 182 cm 182 cm 182 cm (06/08/20 7:19 AM) (06/07/20 11:27 PM) (06/07/20 7: 46 PM) Weight 91.8 kg (06/06/20 8:54 AM) Oxygen Saturation [94-100 %] 98 % 97 % 98 % (06/08/20 7:19 AM) (06/07/20 11:27 PM) (06/07/20 7: 46 PM) Pulse Rate [55-90 bpm] 77 bpm 81 bpm 88 bpm (06/08/20 7:19 AM) (06/07/20 11:27 PM) (06/07/20 7: 46 PM) Body Mass Index [18.5-24.99] 27.71 *H* (06/06/20 8:54 AM) Blood Pressure [90-138/55-84 130/90 mm Hg 130/90 mm Hg 129 /72 mm Hg mm Hg] (06/08/20 9:35 AM) (06/08/20 7:19 AM) (06/07/20 11: 27 PM) Respiratory Rate [16-30 20 br/min 16 br/min 18 br/mi n br/min] (06/08/20 9:35 AM) (06/08/20 7:19 AM) (06/07/20 11: 40 PM) Temperature [96.8-100.4 DegF] 98.1 DegF 99.0 DegF 98 .7 DegF (06/08/20 7:19 AM) (06/07/20 11:27 PM) (06/07/20 7: 46 PM) Mode of Delivery (Oxygen) Room air Room air Room a ir (06/08/20 7:19 AM) (06/07/20 11:27 PM) (06/07/20 7: 46 PM) Blood pressure sites Arm, right Arm, left Arm, right (06/08/20 7:19 AM) (06/07/20 11:27 PM) (06/07/20 7: 46 PM) Temperature Route Oral Oral Oral (06/08/20 7:19 AM) (06/07/20 11:27 PM) (06/07/20 7: 46 PM) Dry Weight 91.8 kg (06/06/20 8:54 AM) Weight Obtained Via Bed scale (06/06/20 8:54 AM) Social History Social History Type Response Smoking Status 5-9 cigarettes (between 1/4 to 1/2 pack)/day in last 30 days; Type: Cigarettes entered on: 01/31/19 Sex Male
--- OUTSIDE RECORDS SUMMARY | 2022-01-11 08:19 | XMS_ITS | Continuity of Care Document ---
:1975 Author Organization [facility] Address [address] [place] [address]- Care Team Providers Name Role Phone Jason Shaikh MD, Pato [facility] Care Phys[id number] Date[facility]s): 02/23/21 - 02/23/[address] [address]- Discharge Disposition: A-D/C Home Attending Physician: Betzy Castillo MD Admitting Physician: Betzy Castillo MD Referring Physician: Not on Staff, Referring [...] 02/01/19 Not Given P atient Refuses Medications albuterol CFC free 90 mcg/inh inhalation aerosol 180 mcg, 2, puffs, Inhalation, Every 4 hours, PRN, # 1 each, Refills 1, Tot. Refills 1, Maintenance,08/13/20 10:56:00 EDT, Inhaler, Route to Pharmacy Electronically, [id number], [facility], 182.8, cm, ... Start Date: 08/13/20 Status: Orderedatorvastatin 20 mg oral tablet 1 tablet = 20 mg, By Mouth, Daily, # 30 tablet, 0 Refills, Maintenance, 08/13/20 10:57:00 EDT, Tablet, [facility], Partial fill upon patient request if the prescription is for a schedule II opioid drug., 182.8, cm, 08/12/20 19:54:0... Start Date: 08/13/20 Status: OrderedbuPROPion 150 mg/24 hours (XL) oral tablet, extended release 1 tablet = 150 mg, By Mouth, Daily, # 30 tablet, 0 Refills, Maintenance, 08/13/20 11:11:00 EDT, XL Tablet, [facility], Partial fill upon patient request if the prescription is for aschedule II opioid drug., 1 tablet By Mouth Daily... Start Date: 08/13/20 Status: OrderedbuPROPion 300 mg/24 hours (XL) oral tablet, extended release 1 tablet = 300 mg, By Mouth, Daily, # 30 tablet, 0 Refills, Maintenance, 08/13/20 10:57:00 EDT, XL Tablet, [facility], Partial fill upon patient request if the prescription is for aschedule II opioid drug., 182.8, cm, 08/12/20 19:... Start Date: 08/13/20 Status: OrderedFreestyle Lite Test Strips See Instructions, # 10 pack/packet, Maintenance, 4 times a day, 08/13/20 10:56:00 EDT, Supply, 182.8, cm, 08/12/20 19:54:00 EDT, Height, 99, kg, 08/05/20 21:12:00 EDT, Dry Weight Start Date: 08/13/20 Status: Orderedgabapentin 300 mg oral capsule 600 mg, Capsule, By Mouth, 02/23/21 15:00:00 EST Start Date: 02/23/21 Stop Date: 02/23/21 Status: Completedgabapentin 800 mg oral tablet 1 tablet = 800 mg, By Mouth, 3 times a day, # 90 tablet, 0 Refills, Maintenance, 08/13/20 11:08:00 EDT, Tablet, [facility], Partial fill upon patient request if the prescription is for a schedule II opioid drug., 182.8, cm, ... Start Date: 08/13/20 Status: Orderedinsulin glargine 100 units/mL subcutaneous solution 0.2 mL = 20 units, Subcutaneous Injection, Daily at bedtime, # 6 mL, 0 Refills, Maintenance, 08/13/20 11:14:00 EDT, Injection, [facility], Partial fill upon patient request if the prescription is for a schedule II opioid drug., 182... Start Date: 08/13/20 Status: Orderedinsulin lispro 100 units/mL injectable solution 2-10 units, Subcutaneous Injection, 3 times a day before meals, << Sliding Scale Comments >> 150 - 199 2 units Call if less than 100 200 - 249 4 units 250 - 299 6 units 300 - 349 8 units 350 - 399 10 units Call if greater than 400 <... Start Date: 08/13/20 Status: Orderedlisinopril 20 mg oral tablet 20 mg, 1, tablet, By Mouth, Daily, # 30 tablet, Refills 0, Tot. Refills 0, Maintenance, 08/13/20 10:58:00 EDT, Route to Pharmacy Electronically, [facility], Partial fill upon patient request if the prescription is for a schedule II... Start Date: 08/13/20 Status: OrderedmetFORMIN 1000 mg oral tablet 1 tablet = 1,000 mg, By Mouth, 2 times a day, with meals, # 60 tablet, 0 Refills, Maintenance, 08/13/20 10:58:00 EDT, Tablet, [facility], Partial fill upon patient request if the prescription is for a schedule II opioid drug., 182.... Start Date: 08/13/20 Status: Orderedmultivitamin Multiple Vitamins oral tablet 1 tablet, By Mouth, Daily, # 30 tablet, 1 Refills, Maintenance, 08/13/20 10:59:00 EDT, Tablet, [facility], Partial fill upon patient request if the prescription is for a schedule IIopioid drug., 1 tablet By Mouth Daily, 182.8, cm,... Start Date: 08/13/20 Status: OrderedNarcan 4 mg/0.1 mL nasal spray 0.1 mL = 4 mg, Once, may repeat every 2 to 3 minutes until patient responds Start Date: 07/22/20 Status: Orderednicotine 21 mg/24 hr transdermal film, extended release 1 patch, Topically, Daily, # 30 patch, 1 Refills, Acute 08/13/21 9:00:00 EDT, 08/13/20 10:59:00 EDT,Patch, [facility], Partial fill upon patient request if the prescription is for a schedule II opioid drug., 1 patch Topically Shasha... Start Date: 08/13/20 Stop Date: 08/13/21 Status: Orderednitrofurantoin macrocrystals 100 mg oral capsule 1 capsule = 100 mg, By Mouth, 2 times a day, # 60 capsule, 0 Refills, Acute 08/13/21 9:00:00 EDT, 08/13/20 11:00:00 EDT, Capsule, [facility], Partial fill upon patient request if the prescription is for a schedule II opioid drug.,... Start Date: 08/13/20 Stop Date: 08/13/21 Status: Orderedomeprazole 20 mg oral enteric coated capsule 1 capsule = 20 mg, By Mouth, Daily, # 30 capsule, 0 Refills, Maintenance, 08/13/20 11:12:00 EDT, EC Capsule, [facility], Partial fill upon patient request if the prescription is fora schedule II opioid drug., 182.8, cm, 08/12/20 1... Start Date: 08/13/20 Status: OrderedSEROquel 50 mg oral tablet 1 tablet = 50 mg, By Mouth, 2 times a day, # 60 tablet, 0 Refills, Maintenance, 08/13/20 11:04:00 EDT, Tablet, [facility], Partial fill upon patient request if the prescription is for a schedule II opioid drug., 182.8, cm, 08/12/20... Start Date: 08/13/20 Status: OrderedSuboxone 8 mg-2 mg sublingual film 2 film, Sublingual, Daily, Place 1 film under each side of tongue. Start Date: 07/22/20 Status: Orderedtamsulosin 0.4 mg oral capsule 0.4 mg, 1, capsule, By Mouth, Daily at bedtime, # 30 capsule, Refills 0, Tot. Refills 0, Maintenance, 08/13/20 11:01:00 EDT, Route to Pharmacy Electronically, [facility], Partial fill upon patient request if the prescription is for... Start Date: 08/13/20 Status: OrderedtraZODone 100 mg oral tablet 100 mg, 1, tablet, By Mouth, Daily at bedtime, # 30 tablet, Refills 0, Tot. Refills 0, Maintenance, 08/13/20 11:01:00 EDT, Route to Pharmacy Electronically, [facility], Partial fillupon patient request if the prescription is for a... Start Date: 08/13/20 Status: OrderedZoloft 100 mg oral tablet 1 tablet = 100 mg, By Mouth, Daily, # 30 tablet, 0 Refills, Maintenance, 08/13/20 11:06:00 EDT, Tablet, [facility], Partial fill upon patient request if the prescription is for a schedule II opioid drug., 182.8, cm, 08/12/20 19:54:... Start Date: 08/13/20 Status: Ordered Problem List Condition Effective Dates Status Health Status Informant Asthma(Confirmed) Active Hyperlipidemia(Confirmed) Active Hypertension(Confirmed) Active Nicotine dependence(Confirmed) Active Polysubstance abuse(Confirmed) Active DM2 (diabetes mellitus, type Active 2)(Confirmed) Vital Signs Most recent to oldest 1 2 3 [Reference Range]: Oxygen Saturation [94-100 98 % 98 % 98 % %] (02/23/21 11:03 AM) (02/23/21 7:50 AM) (02/23/21 6:24 AM) Pulse Rate [55-90 bpm] 78 bpm 89 bpm (02/23/21 7:50 AM) (02/23/21 6:24 AM) Blood Pressure 133/82 mm Hg 142/90 mm Hg 157/97 mm Hg [90-138/55-84 mm Hg] (02/23/21 11:03 AM) *H* *H* (02/23/21 7:50 AM) (02/23/21 6:2 4 AM) Respiratory Rate [16-30 16 br/min 17 br/min 18 br/mi n br/min] (02/23/21 5:42 PM) (02/23/21 4:45 PM) (02/23/21 11:03 AM) Temperature [96.8-100.4 98.1 DegF 98.3 DegF DegF] (02/23/21 7:50 AM) (02/23/21 6:24 AM) Mode of Delivery (Oxygen) Room air Room air Room a ir (02/23/21 11:03 AM) (02/23/21 7:50 AM) (02/23/21 6:24 AM) Blood pressure sites Arm, left Arm, left Arm, right (02/23/21 11:03 AM) (02/23/21 7:50 AM) (02/23/21 6:24 AM) Temperature Route Oral Oral (02/23/21 7:50 AM) (02/23/21 6:24 AM) Social History Social History Type Response Smoking Status 5-9 cigarettes (between 1/4 to 1/2 pack)/day in last 30 days; Type: Cigarettes entered on: 01/31/19 Sex
--- OUTSIDE RECORDS SUMMARY | 2022-01-11 08:19 | XMS_ITS | Continuity of Care Document ---
:1975 Author Organization [facility] Address [address] [place] [address]- Care Team Providers Name Role Phone Jason Shaikh MD, Pato Primary Care Physician Encounter [facility] Date(s): 12/27/19 - 12/28/[address] [address]- [facility] Encounter Diagnosis Agitation (Final) - 12/28/19 Discharge Disposition: A-D/C Home Attending Physician: Tisha Rogers MD Admitting Physician: Tisha Rogers MD Referring Physician: Not on Staff, Referring [...] 18:32:00 EST, Inhaler, Route to Pharmacy Electronically, [id number], [facility], 183, cm, 04/25/19... Start Date: 04/25/19 Status: Orderedatorvastatin 20 mg oral tablet 1 tablet = 20 mg, By Mouth, Daily, # 30 tablet, 0 Refills, Maintenance, 04/25/19 18:28:00 EST, Tablet, [facility], 183, cm, 04/25/19 18:04:00 EST, Height, 104, kg, 04/11/19 0:21:00 EST, Dry Weight Start Date: 04/25/19 Status: Orderedbuprenorphine-naloxone 8 mg-2 mg sublingual film 1 film, Sublingual, Daily, [facility]EL[place] [id number], # 12 film, 0 Refills, Maintenance, 04/25/19 18:32:00 EST, Film, [facility], 1 film Sublingual Daily,Instr:KELTON [id number], 183, cm, 04/25/19 18:04:00 EST, Height, 104, kg, 04/11/19 0:21:00 EST,... Start Date: 04/25/19 Status: OrderedbuPROPion 150 mg/12 hours (SR) oral tablet, extended release 1 tablet = 150 mg, By Mouth, 2 times a day, # 60 tablet, 0 Refills, Maintenance, 04/25/19 18:28:00 EST, SR Tablet, [facility], 183, cm, 04/25/19 18:04:00 EST, Height, 104, kg, 200:21:00 EST, Dry Weight Start Date: 04/25/19 Status: OrderedcloNIDine 0.1 mg oral tablet 0.1 mg, 1, tablet, By Mouth, 2 times a day, PRN, # 60 tablet, Refills 0, Tot. Refills 0, Maintenance, Anxiety Other, 04/25/19 18:32:00 EST, Route to Pharmacy Electronically, [facility], 183, cm, 04/25/19 18:04:00 EST, Height, 104, k... Start Date: 04/25/19 Status: OrderedColace sodium 100 mg oral capsule 200 mg, 2, capsule, By Mouth, 2 times a day, # 120 capsule, Refills 0, Tot. Refills 0, Maintenance, 04/25/19 18:33:00 EST, Route to Pharmacy Electronically, [facility], 183, cm, 04/25/19 18:04:00 EST, Height, 104, [...] 0 Refills, Maintenance, 04/25/19 18:28:00 EST, Tablet, [facility], 183, cm, 04/25/19 18:04:00 EST, Height, 104, kg, 04/11/19 0:21:00 EST, Dry Weight Start Date: 04/25/19 Status: OrderedhydrOXYzine pamoate 25 mg oral capsule = 25 mg, By Mouth, 2 times a day, PRN Anxiety, if clonidine ineffective, # 60 capsule, 0 Refills, Maintenance, 04/25/19 18:33:00 EST, Capsule, [facility], 183, cm, 04/25/19 18:04:00 EST, Height, 104, kg, 04/11/19 0:21:00 EST, Dry Weight Start Date: 04/25/19 Status: Orderedinsulin glargine 100 units/mL subcutaneous solution 0.8 mL = 80 units, Subcutaneous Injection, Daily at bedtime, # 24 mL, 0 Refills, Maintenance, 04/26/19 11:27:00 EST, Injection, [facility], 183, cm, 04/25/19 18:04:00 EST, Height, 104,kg, 04/11/19 0:21:00 EST, Dry Weight Start Date: 04/26/19 Stop Date: 05/26/19 Status: Orderedinsulin lispro 100 u/ml subcutaneous injection 4-14 units, Subcutaneous Injection, 3 times a day before meals, # 15 mL, 0 Refills, Maintenance, 04/26/19 11:27:00 EST, Injection, [facility], 150 - 199 4 units; 200 - [...] 04/25/19 18:30:00 EST, Route to Pharmacy Electronically, [facility], 183, cm, 04/25/19 18:04:00 EST, Height, 104, kg, 04/11/19 0:21:00 EST, Dry We... Start Date: 04/25/19 Status: OrderedmetFORMIN 500 mg oral tablet 1 each = 500 mg, By Mouth, 2 times a day, # 60 tablet, 0 Refills, Maintenance, 04/25/19 18:30:00 EST, Tablet, [facility], 183, cm, 04/25/19 18:04:00 EST, Height, 104, [...] 04/25/19 18:30:00 EST, Route to Pharmacy Electronically, [facility], 183, cm, 04/25/19 18:04:00 EST, Height, 104, kg, 04/11/19 0:21:00... Start Date: 04/25/19 Status: Orderedsertraline 100 mg oral tablet 1 tablet = 100 mg, By Mouth, Daily, # 30 tablet, 0 Refills, Maintenance, 04/25/19 18:31:00 EST, Tablet, [facility], 183, cm, 04/25/19 18:04:00 EST, Height, 104, kg, 04/11/19 0:21:00 EST, Dry Weight Start Date: 04/25/19 Status: OrderedtraZODone 100 mg oral tablet 200 mg, 2, tablet, By Mouth, Daily at bedtime, # 60 tablet, Refills 0, Tot. Refills 0, Maintenance, 04/25/19 18:31:00 EST, Route to Pharmacy Electronically, [facility], 183, cm, 04/25/19 18:04:00 EST, Height, 104, kg, 04/11/19 0:21:00... Start Date: 04/25/19 Status: Ordered Problem List Condition Effective Dates Status Health Status Informant Asthma(Confirmed) Active Hyperlipidemia(Confirmed) Active Hypertension(Confirmed) Active Nicotine dependence(Confirmed) Active Polysubstance abuse(Confirmed) Active DM2 (diabetes mellitus, type Active 2)(Confirmed) Vital Signs Most recent to oldest 1 2 3 [Reference Range]: Oxygen Saturation [94-100 %] 97 % 96 % 100 % (12/28/19 8:39 AM) (12/28/19 2:54 AM) (12/27/19 11: 39 PM) Pulse Rate [55-90 bpm] 87 bpm 82 bpm 101 bpm (12/28/19 8:39 AM) (12/28/19 2:54 AM) *H* (12/27/19 11:39 P M) Blood Pressure [90-138/55-84 134/65 mm Hg 123/87 mm Hg 138 /83 mm Hg mm Hg] (12/28/19 10:25 AM) (12/28/19 8:39 AM) (12/28/19 2: 54 AM) Respiratory Rate [16-30 18 br/min 20 br/min 20 br/mi n br/min] (12/28/19 10:26 AM) (12/28/19 8:39 AM) (12/28/19 2: 54 AM) Temperature [96.8-100.4 DegF] 98.7 DegF (12/27/19 11:39 PM) Mode of Delivery (Oxygen) Room air Room air Room a ir (12/28/19 8:39 AM) (12/28/19 2:54 AM) (12/27/19 11: 39 PM) Temperature Route Oral (12/27/19 11:39 PM) Social History Social History Type Response Smoking Status 5-9 cigarettes (between 1/4 to 1/2 pack)/day in last 30 days; Type: Cigarettes entered on: 01/31/19 Sex Male
--- OUTSIDE RECORDS SUMMARY | 2022-01-11 08:19 | XMS_ITS | Continuity of Care Document ---
:1975 Author Organization [facility] Address [address] [place] [address]- Care Team Providers Name Role Phone Jason Shaikh MD, Pato Primary Care Physician [phone] Encounter [facility] [id number] Date(s): 07/26/21 - 07/27/[address] [address]- Encounter Diagnosis Suicide ideation (Final) - 07/26/21 Discharge Disposition: A-D/C Home Attending Physician: Efrain Mattson MD Admitting Physician: Efrain Mattson MD Referring Physician: Not on Staff, Referring MD Allergies, Adverse Reactions, Alerts No Known Allergies Immunizations Given and Recorded Vaccine Date Status Refusal Reason tetanus/diphtheria/pertussis, acel(Tdap) 06/29/21 Given influenza virus vaccine, inactivated 06/07/20 Given influenza [...] 1 each, Refills 1, Tot. Refills 1, Maintenance,07/15/21 10:51:00 EDT, Inhaler, Route to Pharmacy Electronically, NCPDP_[id number], [facility], [facility], , 07/15/21 10:44:00 EDT, H... Start Date: 07/15/21 Status: OrderedamLODIPine 5 mg oral tablet 5 mg, Tablet, By Mouth, 07/27/21 9:00:00 EDT Start Date: 07/27/21 Stop Date: 07/27/21 Status: CompletedamLODIPine 5 mg oral tablet 5 mg, 1, tablet, By Mouth, Daily, # 30 tablet, Refills 0, Tot. Refills 0, Maintenance, 07/15/21 10:51:00 EDT, Route to Pharmacy Electronically, [facility], Partial fill upon patient request if the prescription is for a schedule II... Start Date: 07/15/21 Status: Orderedatorvastatin 20 mg oral tablet 1 tablet = 20 mg, By Mouth, Daily, # 30 tablet, 0 Refills, Maintenance, 07/15/21 10:51:00 EDT, Tablet, [facility], Partial fill upon patient request if the prescription is for a schedule II opioid drug., 183, cm, 07/15/21 10:44:00... Start Date: 07/15/21 Status: Orderedbuprenorphine-naloxone 8 mg-2 mg sublingual film 1 film, Sublingual, 2 times a day, Next apt on Thursday 07/20, # 8 film, 0 Refills, Maintenance, 07/16/21 14:50:00 EDT, Film, [facility], Partial fill upon patient request if the prescription is for a schedule II opioid drug., 1 film... Start Date: 07/16/21 Status: Orderedferrous sulfate 325 mg oral enteric coated tablet 325 mg, 1, tablet, By Mouth, Daily, # 30 tablet, Refills 0, Tot. Refills 0, Maintenance, 07/15/21 10:51:00 EDT, Route to Pharmacy Electronically, [facility], Partial fill upon patient request if the prescription is for a schedule... Start Date: 07/15/21 Status: Orderedfolic acid 1 mg oral tablet 1 mg, 1, tablet, By Mouth, Daily, # 30 tablet, Refills 0, Tot. Refills 0, Maintenance, 07/15/21 10:51:00 EDT, Route to Pharmacy Electronically, [facility], Partial fill upon patient request if the prescription is for a schedule II... Start Date: 07/15/21 Stop Date: 08/14/21 Status: OrderedFreestyle Lite Test Strips See Instructions, # 10 pack/packet, Maintenance, 4 times a day, 07/15/21 10:53:00 EDT, Supply, 183, cm, 07/15/21 10:44:00 EDT, Height, 70.8, kg, 07/03/21 13:41:00 EDT, Dry Weight Start Date: 07/15/21 Status: Orderedgabapentin 400 mg oral capsule 800 mg, Capsule, By Mouth, 07/26/21 21:00:00 EDT Start Date: 07/26/21 Stop Date: 07/26/21 Status: Completedgabapentin 800 mg oral tablet 1 tablet = 800 mg, By Mouth, 3 times a day, # 90 tablet, 0 Refills, Maintenance, 07/15/21 10:51:00 EDT, Tablet, [facility], Partial fill upon patient request if the prescription isfor a schedule II opioid drug., 183, cm, 07/15/21... Start Date: 07/15/21 Status: Orderedmelatonin 3 mg oral tablet 1 tablet = 3 mg, By Mouth, Daily at bedtime, # 30 tablet, 0 Refills, Maintenance, 07/15/21 10:54:00 EDT, Tablet, [facility], Partial fill upon patient request if the prescription is for a schedule II opioid drug., 183, cm, ... Start Date: 07/15/21 Status: OrderedmetFORMIN 1000 mg oral tablet 1 tablet = 1,000 mg, By Mouth, 2 times a day, with meals, # 60 tablet, 0 Refills, Maintenance, 07/15/21 10:51:00 EDT, Tablet, [facility], Partial fill upon patient request if the prescription is for a schedule II opioid drug., 183... Start Date: 07/15/21 Status: OrderedNarcan 4 mg/0.1 mL nasal spray 0.1 mL = 4 mg, Nares, Both, Once, may repeat every 2 to 3 minutes until patient responds, # 2 each, 2 Refills, Soft Stop, 07/15/21 10:53:00 EDT, [place], [facility], Partial fill upon patient request if the prescription is for a vanna... Start Date: 07/15/21 Status: OrderedNicoderm C-Q Clear 21 mg/24 hr transdermal film, extended release 1 patch, Topically, Daily, Remove daily before bed, # 30 patch, 0 Refills, Maintenance, 07/15/21 10:52:00 EDT, Patch, [facility], Partial fill upon patient request if the prescription is for a schedule II opioid drug., 183, cm, 04... Start Date: 07/15/21 Status: Orderedomeprazole 20 mg oral enteric coated capsule 1 capsule = 20 mg, By Mouth, Daily, # 30 capsule, 0 Refills, Maintenance, 07/15/21 10:51:00 EDT, EC Capsule, [facility], Partial fill upon patient request if the prescription is for a schedule II opioid drug., 183, cm, 07/15/21 10... Start Date: 07/15/21 Status: OrderedrisperiDONE 1 mg oral tablet 1 mg, 1, tablet, By Mouth, Daily at bedtime, # 30 tablet, Refills 0, Tot. Refills 0, Maintenance, 07/15/21 10:51:00 EDT, Route to Pharmacy Electronically, [facility], Partial fill upon patient request if the prescription is for a... Start Date: 07/15/21 Status: OrderedTherapeutic Multiple Vitamins with Minerals oral capsule 1 capsule, By Mouth, Daily, # 30 capsule, 0 Refills, Maintenance, 07/15/21 10:51:00 EDT, Capsule, [facility], Partial fill upon patient request if the prescription is for a schedule II opioid drug., 1 capsule By Mouth Daily,x30 da... Start Date: 07/15/21 Stop Date: 08/14/21 Status: Orderedthiamine 100 mg oral tablet 100 mg, 1, tablet, By Mouth, Daily, # 30 tablet, Refills 0, Tot. Refills 0, Maintenance, 07/15/21 10:52:00 EDT, Route to Pharmacy Electronically, [facility], Partial fill upon patient request if the prescription is for a schedule... Start Date: 07/15/21 Status: OrderedtraZODone 50 mg oral tablet 50 mg, 1, tablet, By Mouth, Daily at bedtime, do not give after 0001 to avoid AM sedation, # 30 tablet, Refills 0, Tot. Refills 0, Maintenance, 07/16/21 9:55:00 EDT, Route to Pharmacy Electronically, [facility], Partial fill upon... Start Date: 07/16/21 Status: OrderedWellbutrin XL 150 mg/24 hours oral tablet, extended release 1 tablet = 150 mg, By Mouth, Every 24 hours, Take with 300 mg dose for a total daily dose of 450 mg,# 30 tablet, 0 Refills, Maintenance, 07/16/21 14:51:00 EDT, ER Tablet, [facility], Partial fill upon patient request if the presc... Start Date: 07/16/21 Status: OrderedWellbutrin XL 300 mg/24 hours oral tablet, extended release 1 tablet = 300 mg, By Mouth, Daily, # 30 tablet, 0 Refills, Maintenance, 07/16/21 14:51:00 EDT, ER Tablet, [facility], Partial fill upon patient request if the prescription is for a schedule II opioid drug., 183, cm, 07/16/21 9:04... Start Date: 07/16/21 Status: Ordered Problem List Condition Effective Dates Status Health Status Informant Asthma(Confirmed) Active Hyperlipidemia(Confirmed) Active Hypertension(Confirmed) Active Nicotine dependence(Confirmed) Active Polysubstance abuse(Confirmed) Active DM2 (diabetes mellitus, type Active 2)(Confirmed) Vital Signs Most recent to oldest 1 2 3 [Reference Range]: Oxygen Saturation [94-100 %] 96 % 96 % 98 % (07/27/21 10:33 AM) (07/27/21 3:43 AM) (07/26/21 8: 06 PM) Pulse Rate [55-90 bpm] 77 bpm 67 bpm 63 bpm (07/27/21 10:33 AM) (07/27/21 3:43 AM) (07/26/21 8: 06 PM) Blood Pressure [90-138/55-84 144/99 mm Hg 142/89 mm Hg 123 /80 mm Hg mm Hg] *H* *H* (07/26/21 8:06 PM ) (07/27/21 10:33 AM) (07/27/21 3:43 AM) Respiratory Rate [16-30 18 br/min 20 br/min 18 br/mi n br/min] (07/27/21 10:33 AM) (07/27/21 3:43 AM) (07/26/21 9: 46 PM) Temperature [96.8-100.4 DegF] 97.8 DegF 98.1 DegF 98 .3 DegF (07/27/21 10:33 AM) (07/27/21 3:43 AM) (07/26/21 8: 06 PM) Mode of Delivery (Oxygen) Room air Room air Room a ir (07/27/21 10:33 AM) (07/27/21 3:43 AM) (07/26/21 8: 06 PM) Blood pressure sites Arm, right Arm, right Arm, right (07/27/21 10:33 AM) (07/27/21 3:43 AM) (07/26/21 8: 06 PM) Temperature Route Oral Oral Oral (07/27/21 10:33 AM) (07/27/21 3:43 AM) (07/26/21 8: 06 PM) Social History Social History Type Response Smoking Status Cigars or pipes but not bee y within last 30 days entered on: 07/26/21 Sex
--- OUTSIDE RECORDS SUMMARY | 2022-01-11 08:19 | XMS_ITS | Continuity of Care Document ---
:1975 Author Organization [facility] Address [address] [place] [address]- Care Team Providers Name Role Phone Jason Shaikh MD, Pato Primary Care Physician Encounter [facility] Date(s): 01/14/20 - 01/15/[address] [address]- [facility] Encounter Diagnosis Heroin abuse (Final) - 01/15/20 Chest pain (Final) - 01/15/20 Discharge Disposition: A-D/C Home Attending Physician: Martin Botson MD Admitting Physician: Matrin Boston MD Referring Physician: Not on Staff, Referring [...] 18:32:00 EST, Inhaler, Route to Pharmacy Electronically, [id number], [facility], 183, cm, 04/25/19... Start Date: 04/25/19 Status: Orderedatorvastatin 20 mg oral tablet 1 tablet = 20 mg, By Mouth, Daily, # 30 tablet, 0 Refills, Maintenance, 04/25/19 18:28:00 EST, Tablet, [facility], 183, cm, 04/25/19 18:04:00 EST, Height, 104, kg, 04/11/19 0:21:00 EST, Dry Weight Start Date: 04/25/19 Status: OrderedBactrim DS 800 mg-160 mg oral tablet 1 tablet, By Mouth, 2 times a day, for 7 days, # 14 tablet, 0 Refills, Acute 01/18/20 14:53:00 EDT, 01/11/20 14:53:00 EDT, Tablet, [facility]/pharmacy #[id number], 1 tablet By Mouth 2 times a day,x7 days, 183, cm, 07/26/19 6:13:00 EDT, Height, 106.1, kg, 07/26/19... Start Date: 01/11/20 Stop Date: 01/18/20 Status: OrderedBactrim DS 800 mg-160 mg oral tablet 1 tablet, By Mouth, 2 times a day, for 7 days, # 14 tablet, 0 Refills, Acute 01/22/20 11:42:00 EDT, 01/15/20 11:42:00 EDT, Tablet Start Date: 01/15/20 Stop Date: 01/22/20 Status: Orderedbuprenorphine-naloxone 8 mg-2 mg sublingual film 1 film, Sublingual, Daily, [facility]ELTON [id number], # 12 film, 0 Refills, Maintenance, 04/25/19 18:32:00 EST, Film, [facility], 1 film Sublingual Daily,Instr:KELTON [id number], 183, cm, 04/25/19 18:04:00 EST, Height, 104, kg, 04/11/19 0:21:00 EST,... Start Date: 04/25/19 Status: OrderedbuPROPion 450 mg/24 hours (XL) oral tablet, extended release 1 tablet = 450 mg, By Mouth, Every 24 hours, # 30 tablet, 0 Refills, Maintenance, 01/11/20 13:44:00 EDT, ER Tablet, [facility]/pharmacy #[id number], 183, cm, 07/26/19 6:13:00 EDT, Height, 106.1, kg, 07/26/19 6:13:00 EDT, Dry Weight Start Date: 01/11/20 Stop Date: 02/10/20 Status: OrderedcloNIDine 0.1 mg oral tablet 0.1 mg, 1, tablet, By Mouth, 2 times a day, PRN, # 60 tablet, Refills 0, Tot. Refills 0, Maintenance, Anxiety Other, 01/11/20 13:45:00 EDT, [id number], cm, 07/26/19 6:13:00 EDT, Height, 106.1, kg, 07/25... Start Date: 01/11/20 Stop Date: 02/10/20 Status: OrderedColace sodium 100 mg oral capsule 200 mg, 2, capsule, By Mouth, 2 times a day, # 120 capsule, Refills 0, Tot. Refills 0, Maintenance, 04/25/19 18:33:00 EST, Route to Pharmacy Electronically, [facility] / [facility], 183, cm, 04/25/19 18:04:00 EST, Height, 104, kg, 04/11/19 0:21:00... Start Date: 04/25/19 Status: Orderedgabapentin 800 mg oral tablet 1 tablet = 800 mg, By Mouth, 3 times a day, # 90 tablet, 0 Refills, Maintenance, 01/11/20 13:45:00 EDT, Tablet, [facility]/pharmacy #[id number], 183, cm, 07/26/19 6:13:00 EDT, Height, 106.1, kg, 07/26/19 6:13:00 EDT, Dry Weight Start Date: 01/11/20 Stop Date: 02/10/20 Status: OrderedhydrOXYzine pamoate 25 mg oral capsule = 25 mg, By Mouth, 2 times a day, PRN Anxiety, if clonidine ineffective, # 60 capsule, 0 Refills, Maintenance, 01/11/20 13:47:00 EDT, Capsule, [facility]/pharmacy #[id number], 183, cm, 07/26/19 6:13:00 EDT, Height,106.1, kg, 07/26/19 6:13:00 EDT, Dry Weight Start Date: 01/11/20 Stop Date: 02/10/20 Status: Orderedinsulin glargine 100 units/mL subcutaneous solution 0.8 mL = 80 units, Subcutaneous Injection, Daily at bedtime, # 24 mL, 0 Refills, Maintenance, 04/26/19 11:27:00 EST, Injection, [facility], 183, cm, 04/25/19 18:04:00 EST, Height, 104,kg, 04/11/19 0:21:00 EST, Dry Weight Start Date: 04/26/19 Stop Date: 05/26/19 Status: Orderedinsulin lispro 100 u/ml subcutaneous injection 4-14 units, Subcutaneous Injection, 3 times a day before meals, # 15 mL, 0 Refills, Maintenance, 04/26/19 11:27:00 EST, Injection, [facility], 150 - 199 4 units; 200 - 249 8 units; 250- 299 10 units; 300 - 349 12 units, 183,... Start Date: 04/26/19 Stop Date: 05/26/19 Status: Orderedlisinopril 20 mg oral tablet 20 mg, 1, tablet, By Mouth, Daily, # 30 tablet, Refills 0, Tot. Refills 0, Maintenance, 04/25/19 18:30:00 EST, Route to Pharmacy Electronically, [facility], 183, cm, 04/25/19 18:04:00 EST, Height, 104, kg, 04/11/19 0:21:00 EST, Dry We... Start Date: 04/25/19 Status: OrderedmetFORMIN 500 mg oral tablet 1 each = 500 mg, By Mouth, 2 times a day, # 60 tablet, 0 Refills, Maintenance, 04/25/19 18:30:00 EST, Tablet, [facility], 183, cm, 04/25/19 18:04:00 EST, Height, [...] 01/11/20 13:46:00 EDT, Route to Pharmacy Electronically, [facility]/pharmacy #[id number], 183, cm, 07/26/19 6:13:00 EDT, Height, 106.1, kg, 07/26/19 6:13:00 EDT, Dry Weight Start Date: 01/11/20 Stop Date: 02/10/20 Status: Orderedsertraline 100 mg oral tablet 1 tablet = 100 mg, By Mouth, Daily, # 30 tablet, 0 Refills, Maintenance, 01/11/20 13:48:00 EDT, Tablet, [facility]/pharmacy #[id number], 183, cm, 07/26/19 6:13:00 EDT, Height, 106.1, kg, 07/26/19 6:13:00 EDT, Dry Weight Start Date: 01/11/20 Stop Date: 02/10/20 Status: OrderedtraZODone 50 mg oral tablet 100 mg, 2, tablet, By Mouth, Daily at bedtime, # 60 tablet, Refills 0, Tot. Refills 0, Maintenance, 01/11/20 13:46:00 EDT, Route to Pharmacy Electronically, [facility]/pharmacy #[id number], 183, cm, 07/26/19 6:13:00 EDT, Height, 106.1, kg, 07/26/19 6:13:00 EDT, . Start Date: 01/11/20 Stop Date: 02/10/20 Status: Ordered Problem List Condition Effective Dates Status Health Status Informant Asthma(Confirmed) Active Hyperlipidemia(Confirmed) Active Hypertension(Confirmed) Active Nicotine dependence(Confirmed) Active Polysubstance abuse(Confirmed) Active DM2 (diabetes mellitus, type Active 2)(Confirmed) Results Radiology Reports Exam Date Time Procedure Performing Provider Status 01/14/20 8:49 PM Chest 2 Views Frontal and Lat Janna Marlow ; Alondra (Verified) Notes:(Chest 2 Views Frontal and Lat) Reason For Exam: Chest Pain;Other:RESULT: Chest 2 Views Frontal and Lat Chest 2 Views Frontal and Lat Hx of Present Illness: Pt states he wants detox, states he is experiencing chest pain for the past few days. States he last used approx 2hrs ago, heroin, cocaine, and alcohol.; Reason: Chest Pain COMPARISON: Multiple priors with the most recent 04/07/2019 FINDINGS: LINES AND TUBES: None. LUNGS AND PLEURA: Mild bibasilar subsegmental atelectasis. Normal pulmonary vascularity. No pleural effusion. No pneumothorax. HEART, MEDIASTINUM AND VAL: Heart is normal in size. Normal mediastinal and hilar contour. BONES AND SOFT TISSUES: No acute abnormality. IMPRESSION: No acute abnormality. I have personally reviewed the images and I agree with this report. WSN: [id number] Ordering Physician: Miranda Granda Dictated By: Osman Vasquez DO Dictated Date/Time: 01/14/20 9:26 pm Reviewed By: Stevie Hahn MD Signed By: Stevie Hahn MD Signed Date/Time: 01/14/20 9:31 pm Transcribed By: BREE Transcribed Date/Time: 01/14/20 9:19 pm Vital Signs Most recent to oldest 1 2 3 [Reference Range]: Height 183 cm 183 cm (01/15/20 7:06 AM) (01/14/20 8:20 PM) Weight 99.7 kg 99.7 kg (01/15/20 7:06 AM) (01/14/20 8:20 PM) Oxygen Saturation [94-100 %] 99 % 99 % 100 % (01/15/20 7:06 AM) (01/15/20 4:28 AM) (01/15/20 1:2 9 AM) Pulse Rate [55-90 bpm] 74 bpm 65 bpm 67 bpm (01/15/20 7:06 AM) (01/15/20 4:28 AM) (01/15/20 1:2 9 AM) Body Mass Index [18.5-24.99] 29.77 *H* (01/14/20 8:20 PM) Blood Pressure [90-138/55-84 mm 124/88 mm Hg 129/84 mm Hg 126/87 mm Hg Hg] (01/15/20 7:06 AM) (01/15/20 4:28 AM) (01/15/20 1:2 9 AM) Respiratory Rate [16-30 br/min] 18 br/min 18 br/min 22 br/min (01/15/20 7:06 AM) (01/15/20 4:28 AM) (01/15/20 1:2 9 AM) Temperature [96.8-100.4 DegF] 97.7 DegF 97.9 DegF 98 .0 DegF (01/15/20 7:06 AM) (01/15/20 4:28 AM) (01/15/20 1:2 9 AM) Mode of Delivery (Oxygen) Room air Room air Room a ir (01/15/20 7:06 AM) (01/15/20 4:28 AM) (01/15/20 1:2 9 AM) Blood pressure sites Arm, right Arm, right Arm, right (01/15/20:06 AM) (01/15/20 4:28 AM) (01/15/20 1:2 9 AM) Temperature Route Oral Oral Oral (01/15/20 7:06 AM) (01/15/20 4:28 AM) (01/15/20 1:2 9 AM) Dry Weight 99.7 kg 99.7 kg (01/15/20 7:06 AM) (01/14/20 8:20 PM) Weight Obtained Via Standing scale (01/14/20 8:20 PM) Dry Weight Obtained Via Standing scale (01/14/20 8:20 PM) Social History Social History Type Response Smoking Status 5-9 cigarettes (between 1/4 to 1/2 pack)/day in last 30 days; Type: Cigarettes entered on: 01/31/19 Sex Male
--- OUTSIDE RECORDS SUMMARY | 2022-01-11 08:19 | XMS_ITS | Continuity of Care Document ---
:1975 Author Organization [facility] Address [address] [place] [address]- Care Team Providers Name Role Phone Pato Gastelum MD Primary Care Physician [place] [facility] [place] - 07/23/[address] [address]- Encounter Diagnosis Threatening to self (Final) - 07/18/20 Chest pain (Final) - 07/18/20 COVID-19 virus detected (Final) - 07/19/20 Discharge Disposition: A-D/C Home Attending Physician: Iwona Caraballo MD Admitting Physician: Iwona Caraballo MD Referring Physician: Not on Staff, Referring [...] 1 tablet = 20 mg, By Mouth, Daily Start Date: 07/18/20 Status: OrderedbuPROPion 150 mg/24 hours (XL) oral tablet, extended release 1 tablet = 150 mg, By Mouth, Every 24 hours, Maintenance, 07/22/20 16:57:00 EDT, ER Tablet, Partial fill upon patient request if the prescription is for a schedule II opioid drug. Start Date: 07/22/20 Status: OrderedcloNIDine 0.1 mg oral tablet 0.1 mg, 1, tablet, By Mouth, 2 times a day, PRN, # 60 tablet, Refills 0, Tot. Refills 0, Maintenance, Anxiety Other, 01/11/20 13:45:00 EDT, Route to Pharmacy Electronically, [facility]/pharmacy #[id number], 183, cm, 07/26/19 6:13:00 EDT, Height, 106.1, kg, 07/25... Start Date: 01/11/20 Stop Date: 02/10/20 Status: Ordereddocusate sodium 100 mg oral capsule 1 capsule = 100 mg, By Mouth, 2 times a day, PRN as needed for constipation, 0 Refills, Maintenance,07/18/20 23:18:00 EDT, Capsule, Partial fill upon patient request if the prescription is for a schedule II opioid drug. Start Date: 07/18/20 Status: OrderedFreestyle Lite Test Strips 4 times a day, Maintenance, Use to test blood sugar, 07/22/20 16:46:00 EDT, Supply Start Date: 07/22/20 Status: Orderedgabapentin 300 mg oral capsule 600 mg, 2, capsule, By Mouth, 3 times a day Start Date: 07/18/20 Status: Orderedgabapentin 300 mg oral capsule 600 mg, Capsule, By Mouth, 07/23/20 9:00:00 EDT Start Date: 07/23/20 Stop Date: 07/23/20 Status: CompletedhydrOXYzine pamoate 25 mg oral capsule = 25 mg, By Mouth, 2 times a day, PRN Anxiety, if clonidine ineffective, # 60 capsule, 0 Refills, Maintenance, 01/11/20 13:47:00 EDT, Capsule, [facility]/pharmacy #[id number], 183, cm, 07/26/19 6:13:00 EDT, Height,106.1, kg, 07/26/19 6:13:00 EDT, Dry Weight Start Date: 01/11/20 Stop Date: 02/10/20 Status: Orderedinsulin lispro 100 u/ml subcutaneous injection 4-14 units, Subcutaneous Injection, 3 times a day before meals, # 15 mL, 0 Refills, Maintenance, 04/26/19 11:27:00 EST, Injection, [facility], 150 - 199 4 units; 200 - 249 8 units; 250- 299 10 units; 300 - 349 12 units, 183,... Start Date: 04/26/19 Stop Date: 05/26/19 Status: OrderedLantus 100 u/ml subcutaneous solution = 30 units, Subcutaneous Injection, Daily at bedtime Start Date: 07/22/20 Status: Orderedlisinopril 20 mg oral tablet 20 mg, 1, tablet, By Mouth, Daily, # 30 tablet, Refills 0, Tot. Refills 0, Maintenance, 04/25/19 18:30:00 EST, Route to Pharmacy Electronically, [facility], 183, cm, 04/25/19 18:04:00 EST, Height, 104, kg, 04/11/19 0:21:00 EST, Dry We... Start Date: 04/25/19 Status: Orderedlisinopril 20 mg oral tablet 20 mg, Tablet, By Mouth, 07/23/20 9:00:00 EDT Start Date: 07/23/20 Stop Date: 07/23/20 Status: CompletedmetFORMIN 1000 mg oral tablet 1 tablet = 1,000 mg, By Mouth, 2 times a day, with meals Start Date: 07/18/20 Status: OrderedmetFORMIN 500 mg oral tablet 1 each = 500 mg, By Mouth, 2 times a day, # 60 tablet, 0 Refills, Maintenance, 04/25/19 18:30:00 EST, Tablet, [facility], 183, cm, 04/25/19 18:04:00 EST, Height, 104, kg, 04/11/19 0:21:00 EST, Dry Weight Start Date: 04/25/19 Status: OrderedMiraLax oral powder for reconstitution = 17 Gm, By Mouth, Daily, PRN Constipation, dissolve in water before taking, Maintenance, 07/22/20 16:53:00 EDT, REC Powder, Partial fill upon patient request if the prescription is for a schedule II opioid drug. Start Date: 07/22/20 Status: OrderedNarcan 4 mg/0.1 mL nasal spray 0.1 mL = 4 mg, Once, may repeat every 2 to 3 minutes until patient responds Start Date: 07/22/20 Status: Orderednicotine 21 mg/24 hr transdermal film, extended release APPLY 1 PATCH TOPICALLY TO THE SKIN DAILY IN THE MORNING THEN REMOVE AT BEDTIME DIRECTED DO NOT SMOKE WHILE USING PATCH Start Date: 07/18/20 Status: Orderedpantoprazole 40 mg oral delayed release tablet = 40 mg, By Mouth, Daily, # 30 tablet, 0 Refills, Maintenance, 04/25/19 18:35:00 EST, EC Tablet, 183, cm, 04/25/19 18:04:00 EST, Height, 104, kg, 04/11/19 0:21:00 EST, Dry Weight Start Date: 04/25/19 Status: OrderedProAir HFA 90 mcg/inh inhalation aerosol with adapter 2, puffs, Inhalation, Every 4 hours, PRN Start Date: 07/18/20 Status: OrderedSEROquel XR 150 mg oral tablet, extended release 150 mg, 1, tablet, By Mouth, Daily, # 30 tablet, Refills 0, Tot. Refills 0, Maintenance, 01/11/20 13:46:00 EDT, Route to Pharmacy Electronically, [facility]/pharmacy #[id number], 183, cm, 07/26/19 6:13:00 EDT, Height, 106.1, kg, 07/26/19 6:13:00 EDT, Dry Weight Start Date: 01/11/20 Stop Date: 02/10/20 Status: Orderedsertraline 100 mg oral tablet 1 tablet = 100 mg, By Mouth, Daily, # 30 tablet, 0 Refills, Maintenance, 01/11/20 13:48:00 EDT, Tablet, [facility]/pharmacy #[id number], 183, cm, 07/26/19 6:13:00 EDT, Height, 106.1, kg, 07/26/19 6:13:00 EDT, Dry Weight Start Date: 01/11/20 Stop Date: 02/10/20 Status: OrderedSuboxone 8 mg-2 mg sublingual film 2 film, Sublingual, Daily, Place 1 film under each side of tongue. Start Date: 07/22/20 Status: Orderedtamsulosin 0.4 mg oral capsule 0.4 mg, 1, capsule, By Mouth, Daily at bedtime Start Date: 07/18/20 Status: OrderedtraZODone 100 mg oral tablet 100 mg, 1, tablet, By Mouth, Daily at bedtime Start Date: 07/18/20 Status: Ordered Problem List Condition Effective Dates Status Health Status Informant Asthma(Confirmed) Active Hyperlipidemia(Confirmed) Active Hypertension(Confirmed) Active Nicotine dependence(Confirmed) Active Polysubstance abuse(Confirmed) Active DM2 (diabetes mellitus, type Active 2)(Confirmed) Vital Signs Most recent to oldest 1 2 3 [Reference Range]: Height 186 cm 186 cm 186 cm (07/23/20 11:45 AM) (07/23/20 4:12 AM) (07/22/20 9: 52 PM) Weight 97.8 kg (07/22/20 11:44 AM) Oxygen Saturation [94-100 %] 99 % 98 % 99 % (07/23/20 7:00 AM) (07/23/20 4:12 AM) (07/22/20 9:5 2 PM) Pulse Rate [55-90 bpm] 75 bpm 73 bpm 72 bpm (07/23/20 7:00 AM) (07/23/20 4:12 AM) (07/22/20 9:5 2 PM) Body Mass Index [18.5-24.99] 28.27 *H* (07/22/20 11:44 AM) Blood Pressure [90-138/55-84 141/87 mm Hg 150/100 mm Hg 151 /100 mm Hg mm Hg] *H* *H* *H* (07/23/20 11:45 AM) (07/23/20 8:30 AM) (07/23/20 7: 00 AM) Respiratory Rate [16-30 18 br/min 18 br/min 19 br/mi n br/min] (07/23/20 9:31 AM) (07/23/20 8:31 AM) (07/23/20 7:0 0 AM) Temperature [96.8-100.4 DegF] 98.0 DegF 98.0 DegF 98 .3 DegF (07/23/20 7:00 AM) (07/23/20 4:12 AM) (07/22/20 9:5 2 PM) Mode of Delivery (Oxygen) Room air Room air Room a ir (07/23/20 7:00 AM) (07/23/20 4:12 AM) (07/22/20 9:5 2 PM) Blood pressure sites Arm, right Arm, left Arm, left (07/23/20 11:45 AM) (07/23/20 7:00 AM) (07/23/20 4: 12 AM) Temperature Route Oral Oral Oral (07/23/20 7:00 AM) (07/23/20 4:12 AM) (07/22/20 9:5 2 PM) Dry Weight 97.6 kg (07/22/20 11:44 AM) Social History Social History Type Response Smoking Status 5-9 cigarettes (between 1/4 to 1/2 pack)/day in last 30 days; Type: Cigarettes entered on: 01/31/19 Sex Male
--- OUTSIDE RECORDS SUMMARY | 2022-01-11 08:19 | XMS_ITS | Continuity of Care Document ---
:1975 Author Organization [facility] Address [address] [place] [address]- Care Team Providers Name Role Phone Jason Shaikh MD, Pato Primary Care Physician [phone] En[place] [facility] [place]s): 03/02/21 - 03/06/21 [facility] [address] [place] [id number] Encounter Diagnosis Alcohol withdrawal (Final) - 03/02/21 Opiate withdrawal (Final) - 03/02/21 Discharge Disposition: A-D/C Home Attending Physician: Mitch MATA, Amanda Angel Admitting Physician: Gulshan Sim DO Referring Physician: Not on Staff, Referring MD [...] 02/01/19 Not Given P atient Refuses Medications acamprosate 333 mg oral delayed release tablet = 666 mg, By Mouth, 3 times a day with meals, # 84 tablet, 0 Refills, Maintenance, 03/05/21 16:20:00EST, Tablet, [facility], Partial fill upon patient request if the prescription is for a schedule II opioid drug., 182, cm, 03/04/21 20:2... Start Date: 03/05/21 Stop Date: 03/19/21 Status: Orderedalbuterol CFC free 90 mcg/inh inhalation aerosol 180 mcg, 2, puffs, Inhalation, Every 4 hours, PRN, # 1 each, Refills 1, Tot. Refills 1, Maintenance,08/13/20 10:56:00 EDT, Inhaler, Route to Pharmacy Electronically, [id number], [facility], 182.8, cm, ... Start Date: 08/13/20 Status: Orderedatorvastatin 20 mg oral tablet 1 tablet = 20 mg, By Mouth, Daily, # 30 tablet, 0 Refills, Maintenance, 08/13/20 10:57:00 EDT, Tablet, [facility], Partial fill upon patient request if the prescription is for a schedule II opioid drug., 182.8, cm, 08/12/20 19:54:0... Start Date: 08/13/20 Status: OrderedbuPROPion 150 mg/24 hours (XL) oral tablet, extended release 1 tablet = 150 mg, By Mouth, Daily, # 30 tablet, 0 Refills, Maintenance, 08/13/20 11:11:00 EDT, XL Tablet, [facility], Partial fill upon patient request if the prescription is for aschedule II opioid drug., 1 tablet By Mouth Daily... Start Date: 08/13/20 Status: Orderedfolic acid 1 mg oral tablet 1 mg, 1, tablet, By Mouth, Daily, # 30 tablet, Refills 0, Tot. Refills 0, Maintenance, 03/05/21 16:21:00 EST, Route to Pharmacy Electronically, [facility], Partial fill upon patient request if the prescription is for a schedule II opioid... Start Date: 03/05/21 Stop Date: 04/04/21 Status: OrderedFreestyle Lite Test Strips See Instructions, # 10 pack/packet, Maintenance, 4 times a day, 08/13/20 10:56:00 EDT, Supply, 182.8, cm, 08/12/20 19:54:00 EDT, Height, 99, kg, 08/05/20 21:12:00 EDT, Dry Weight Start Date: 08/13/20 Status: Orderedgabapentin 400 mg oral capsule 800 mg, Capsule, By Mouth, 03/05/21 21:00:00 EST Start Date: 03/05/21 Stop Date: 03/05/21 Status: Completedgabapentin 400 mg oral capsule 800 mg, Capsule, By Mouth, 03/06/21 9:00:00 EST Start Date: 03/06/21 Stop Date: 03/06/21 Status: Completedgabapentin 800 mg oral tablet 1 tablet = 800 mg, By Mouth, 3 times a day, # 90 tablet, 0 Refills, Maintenance, 08/13/20 11:08:00 EDT, Tablet, [facility], Partial fill upon patient request if the prescription is for a schedule II opioid drug., 182.8, cm, ... Start Date: 08/13/20 Status: Orderedlisinopril 20 mg oral tablet 20 mg, 1, tablet, By Mouth, Daily, # 30 tablet, Refills 0, Tot. Refills 0, Maintenance, 08/13/20 10:58:00 EDT, Route to Pharmacy Electronically, [facility], Partial fill upon patient request if the prescription is for a schedule II... Start Date: 08/13/20 Status: Orderedlisinopril 20 mg oral tablet 20 mg, Tablet, By Mouth, 03/06/21 9:00:00 EST Start Date: 03/06/21 Stop Date: 03/06/21 Status: CompletedmetFORMIN 1000 mg oral tablet 1 tablet = 1,000 mg, By Mouth, 2 times a day, with meals, # 60 tablet, 0 Refills, Maintenance, 08/13/20 10:58:00 EDT, Tablet, [facility], Partial fill upon patient request if the prescription is for a schedule II opioid drug., 182.... Start Date: 08/13/20 Status: Orderedmultivitamin Multiple Vitamins oral tablet 1 tablet, By Mouth, Daily, # 30 tablet, 1 Refills, Maintenance, 08/13/20 10:59:00 EDT, Tablet, [facility], Partial fill upon patient request if the prescription is for a schedule IIopioid drug., 1 tablet By Mouth Daily, 182.8, cm,... Start Date: 08/13/20 Status: OrderedNarcan 4 mg/0.1 mL nasal spray 0.1 mL = 4 mg, Nares, Both, Once, may repeat every 2 to 3 minutes until patient responds, # 2 each, 2 Refills, Soft Stop, 03/04/21 16:37:00 EST, [place], [facility], Partial fill upon patient request if the prescription is for a schedule I... Start Date: 03/04/21 Status: Orderednicotine 14 mg/24 hr transdermal film, extended release 1 patch, Topically, Daily, for 14 days, # 14 patch, 0 Refills, Acute 03/19/21 16:20:00 EST, 03/05/2116:20:00 EST, Patch, [facility], Partial fill upon patient request if the prescriptionis for a schedule II opioid drug., 1 patch Topica... Start Date: 03/05/21 Stop Date: 03/19/21 Status: Orderedomeprazole 20 mg oral enteric coated capsule 1 capsule = 20 mg, By Mouth, Daily, # 30 capsule, 0 Refills, Maintenance, 08/13/20 11:12:00 EDT, EC Capsule, [facility], Partial fill upon patient request if the prescription is fora schedule II opioid drug., 182.8, cm, 08/12/20 1... Start Date: 08/13/20 Status: Orderedpyridoxine 50 mg oral tablet 50 mg, 1, tablet, By Mouth, Daily, for 30 days, # 30 tablet, Refills 0, Tot. Refills 0, Acute 04/04/21 16:22:00 EST, 03/05/21 16:22:00 EST, Route to Pharmacy Electronically, [facility] 3, Partial fill upon patient request if the prescripti... Start Date: 03/05/21 Stop Date: 04/04/21 Status: OrderedSEROquel 50 mg oral tablet 1 tablet = 50 mg, By Mouth, 2 times a day, # 60 tablet, 0 Refills, Maintenance, 08/13/20 11:04:00 EDT, Tablet, [facility], Partial fill upon patient request [...] 08/13/20 11:01:00 EDT, Route to Pharmacy Electronically, [facility], Partial fill upon patient request if the prescription is for... Start Date: 08/13/20 Status: OrderedTherapeutic Multiple Vitamins with Minerals oral capsule 1 capsule, By Mouth, Daily, # 30 capsule, 0 Refills, Maintenance, 03/05/21 16:21:00 EST, Capsule, [facility], Partial fill upon patient request if the prescription is for a schedule II opioid drug., 1 capsule By Mouth Daily,x30 days, 182... Start Date: 03/05/21 Stop Date: 04/04/21 Status: Orderedthiamine 100 mg oral tablet 100 mg, 1, tablet, By Mouth, Daily, for 30 days, # 30 tablet, Refills 0, Tot. Refills 0, Acute 04/04/21 16:22:00 EST, 03/05/21 16:22:00 EST, Route to Pharmacy Electronically, [facility], Partial fill upon patient request if the prescript... Start Date: 03/05/21 Stop Date: 04/04/21 Status: OrderedtraZODone 100 mg oral tablet 100 mg, 1, tablet, By Mouth, Daily at bedtime, # 30 tablet, Refills 0, Tot. Refills 0, Maintenance, 08/13/20 11:01:00 EDT, Route to Pharmacy Electronically, [facility], Partial fillupon patient request if the prescription is for a... Start Date: 08/13/20 Status: OrderedZoloft 100 mg oral tablet 1 tablet = 100 mg, By Mouth, Daily, # 30 tablet, 0 Refills, Maintenance, 08/13/20 11:06:00 EDT, Tablet, [facility], Partial fill upon patient request [...] Height 182 cm 182 cm 182 cm (03/06/21 5:36 AM) (03/05/21 8:37 PM) (03/04/21 8:23 PM) Weight 81.8 kg (03/02/21 11:35 PM) Oxygen Saturation [94-100 99 % 95 % 99 % %] (03/06/21 5:36 AM) (03/05/21 8:37 PM) (03/05/21 2:00 PM) Pulse Rate [55-90 bpm] 56 bpm 65 bpm 62 bpm (03/06/21 5:36 AM) (03/05/21 8:37 PM) (03/05/21 2:00 PM) Body Mass Index 24.7 [18.5-24.99] (03/02/21 11:35 PM) Blood Pressure 144/84 mm Hg 141/91 mm Hg 138/93 mm Hg [90-138/55-84 mm Hg] *H* *H* (03/05/21 8 :37 PM) (03/06/21 10:00 AM) (03/06/21 5:36 AM) Respiratory Rate [16-30 19 br/min 17 br/min 18 br/mi n br/min] (03/06/21 9:59 AM) (03/06/21 5:36 AM) (03/05/21 8:50 PM) Temperature [96.8-100.4 97.4 DegF 98.0 DegF 98.0 Deg F DegF] (03/06/21 5:36 AM) (03/05/21 8:37 PM) (03/05/21 2:00 PM) Liters per Minute 3 L/min 2 L/min (03/02/21 11:35 PM) (03/02/21 10:02 PM) Mode of Delivery (Oxygen) Room air Room air Room a ir (03/06/21 5:36 AM) (03/05/21 8:37 PM) (03/05/21 2:00 PM) Blood pressure sites Arm, left Arm, right Arm, left (03/06/21 5:36 AM) (03/05/21 8:37 PM) (03/05/21 2:00 PM) Temperature Route Oral Oral Oral (03/05/21 8:37 PM) (03/05/21 2:00 PM) (03/05/21 5:00 AM) Weight Obtained Via Bed scale (03/02/21 11:35 PM) Social History Social History Type Response Smoking Status 5-9 cigarettes (between 1/4 to 1/2 pack)/day in last 30 days; Type: Cigarettes entered on: 01/31/19 Sex
--- OUTSIDE RECORDS SUMMARY | 2022-01-11 08:19 | XMS_ITS | Continuity of Care Document ---
:1975 Author Organization [facility] Address [address] [place] [id number]- Care Team Providers Name Role Phone Jasno Shaikh MD, Pato Primary Care Physician [phone] [id number] Date(s): 05/23/21 - 05/23/[address] [address]- Discharge Disposition: A-D/C Home Attending Physician: Zhou Krueger MD Admitting Physician: Zhou Krueger MD Referring Physician: Not on Staff, Referring [...] tablet, 0 Refills, Maintenance, 03/05/21 16:20:00EST, Tablet, [facility], Partial fill upon patient request if the prescription is for a schedule II opioid drug., 182, cm, 03/04/21 20:2... Start Date: 03/05/21 Stop Date: 03/19/21 Status: Orderedalbuterol CFC free 90 mcg/inh inhalation aerosol 180 mcg, 2, puffs, Inhalation, Every 4 hours, PRN, # 1 each, Refills 1, Tot. Refills 1, Maintenance,08/13/20 10:56:00 EDT, Inhaler, Route to Pharmacy Electronically, [id number], [facility], 182.8, cm, ... Start Date: 08/13/20 Status: Orderedatorvastatin 20 mg oral tablet 1 tablet = 20 mg, By Mouth, Daily, # 30 tablet, 0 Refills, Maintenance, 08/13/20 10:57:00 EDT, Tablet, [facility], Partial fill upon patient request if the prescription is for a schedule II opioid drug., 182.8, cm, 08/12/20 19:54:0... Start Date: 08/13/20 Status: OrderedbuPROPion 150 mg/24 hours (XL) oral tablet, extended release 1 tablet = 150 mg, By Mouth, Daily, # 30 tablet, 0 Refills, Maintenance, 08/13/20 11:11:00 EDT, XL Tablet, [facility], Partial fill upon patient request if the prescription is for aschedule II opioid drug., 1 tablet By Mouth Daily... Start Date: 08/13/20 Status: Orderedfolic acid 1 mg oral tablet 1 mg, 1, tablet, By Mouth, Daily, # 30 tablet, Refills 0, Tot. Refills 0, Maintenance, 03/05/21 16:21:00 EST, Route to Pharmacy Electronically, [facility], Partial fill upon patient request if the prescription is for a schedule II opioid... Start Date: 03/05/21 Stop Date: 04/04/21 Status: OrderedFreestyle Lite Test Strips See Instructions, # 10 pack/packet, Maintenance, 4 times a day, 08/13/20 10:56:00 EDT, Supply, 182.8, cm, 08/12/20 19:54:00 EDT, Height, 99, kg, 08/05/20 21:12:00 EDT, Dry Weight Start Date: 08/13/20 Status: Orderedgabapentin 800 mg oral tablet 1 tablet = 800 mg, By Mouth, 3 times a day, # 90 tablet, 0 Refills, Maintenance, 08/13/20 11:08:00 EDT, Tablet, [facility], Partial fill upon patient request if the prescription is for a schedule II opioid drug., 182.8, cm, 2... Start Date: 08/13/20 Status: Orderedlisinopril 20 mg oral tablet 20 mg, 1, tablet, By Mouth, Daily, # 30 tablet, Refills 0, Tot. Refills 0, Maintenance, 08/13/20 10:58:00 EDT, Route to Pharmacy Electronically, [facility], Partial fill upon patient request if the prescription is for a schedule II... Start Date: 08/13/20 Status: OrderedmetFORMIN 1000 mg oral tablet 1 tablet = 1,000 mg, By Mouth, 2 times a day, with meals, # 60 tablet, 0 Refills, Maintenance, 08/13/20 10:58:00 EDT, Tablet, [facility], Partial fill upon patient request if the prescription is for a schedule II opioid drug., 182.... Start Date: 08/13/20 Status: Orderedmultivitamin Multiple Vitamins oral tablet 1 tablet, By Mouth, Daily, # 30 tablet, 1 Refills, Maintenance, 08/13/20 10:59:00 EDT, Tablet, [facility], Partial fill upon patient request if the prescription is for a schedule IIopioid drug., 1 tablet By Mouth Daily, 182.8, cm,... Start Date: 08/13/20 Status: OrderedNarcan 4 mg/0.1 mL nasal spray 0.1 mL = 4 mg, Nares, Both, Once, may repeat every 2 to 3 minutes until patient responds, # 2 each, 2 Refills, Soft Stop, 03/04/21 16:37:00 EST, [place], [facility] 3, Partial fill upon patient request if the prescription is for a schedule I... Start Date: 03/04/21 Status: Orderedomeprazole 20 mg oral enteric coated capsule 1 capsule = 20 mg, By Mouth, Daily, # 30 capsule, 0 Refills, Maintenance, 08/13/20 11:12:00 EDT, EC Capsule, [facility], Partial fill upon patient request if the prescription is fora schedule II opioid drug., 182.8, cm, 08/12/20 1... Start Date: 08/13/20 Status: OrderedSEROquel 50 mg oral tablet 1 tablet = 50 mg, By Mouth, 2 times a day, # 60 tablet, 0 Refills, Maintenance, 08/13/20 11:04:00 EDT, Tablet, [facility], Partial fill upon patient request [...] 08/13/20 11:01:00 EDT, Route to Pharmacy Electronically, [facility], Partial fill upon patient request if the prescription is for... Start Date: 08/13/20 Status: OrderedTherapeutic Multiple Vitamins with Minerals oral capsule 1 capsule, By Mouth, Daily, # 30 capsule, 0 Refills, Maintenance, 03/05/21 16:21:00 EST, Capsule, [facility], Partial fill upon patient request if the prescription is for a schedule II opioid drug., 1 capsule By Mouth Daily,x30 days, 182... Start Date: 03/05/21 Stop Date: 04/04/21 Status: OrderedtraZODone 100 mg oral tablet 100 mg, 1, tablet, By Mouth, Daily at bedtime, # 30 tablet, Refills 0, Tot. Refills 0, Maintenance, 08/13/20 11:01:00 EDT, Route to Pharmacy Electronically, [facility], Partial fillupon patient request if the prescription is for a... Start Date: 08/13/20 Status: OrderedZoloft 100 mg oral tablet 1 tablet = 100 mg, By Mouth, Daily, # 30 tablet, 0 Refills, Maintenance, 08/13/20 11:06:00 EDT, Tablet, [facility], Partial fill upon patient request [...] oldest 1 2 3 [Reference Range]: Height 170 cm (05/23/21 5:47 AM) Weight 75 kg (05/23/21 5:47 AM) Oxygen Saturation [94-100 %] 98 % 97 % 100 % (05/23/21 4:00 PM) (05/23/21 2:48 PM) (05/23/21 1:1 6 PM) Pulse Rate [55-90 bpm] 70 bpm 69 bpm 66 bpm (05/23/21 4:00 PM) (05/23/21 2:48 PM) (05/23/21 1:1 6 PM) Blood Pressure [90-138/55-84 mm 120/72 mm Hg 131/74 mm Hg 116/76 mm Hg Hg] (05/23/21 4:00 PM) (05/23/21 2:48 PM) (05/23/21 1:1 6 PM) Respiratory Rate [16-30 br/min] 20 br/min 18 br/min 22 br/min (05/23/21 4:00 PM) (05/23/21 2:48 PM) (05/23/21 1:1 6 PM) Temperature [96.8-100.4 DegF] 98 DegF 97.8 DegF (05/23/21 4:00 PM) (05/23/21 5:47 AM) Mode of Delivery (Oxygen) Room air Room air Room a ir (05/23/21 4:00 PM) (05/23/21 2:48 PM) (05/23/21 1:1 6 PM) Blood pressure sites Arm, left Arm, left Arm, left (05/23/21 4:00 PM) (05/23/21 2:48 PM) (05/23/21 1:1 6 PM) Temperature Route Oral Oral (05/23/21 4:00 PM) (05/23/21 5:47 AM) Dry Weight 75 kg (05/23/21 5:47 AM) Social History Social History Type Response Smoking Status 5-9 cigarettes (between 04/14 to /2 pack)/day in last 30 days; Type: Cigarettes entered on: 01/31/19 Sex
--- OUTSIDE RECORDS SUMMARY | 2022-01-11 08:19 | XMS_ITS | Continuity of Care Document ---
:1975 Author Organization [facility] Address [address] [place] [address]- Care Team Providers Name Role Phone Jason Shaikh MD, Pato Primary Care Physician Encounter [facility] [place] Date(s): 10/23/19 - 10/24/[address] [address] Encounter Diagnosis Suicidal intent (Final) - 10/23/19 Discharge Disposition: Transfer to [facility] Facility Attending Physician: Karri Alexander DO Admitting Physician: Karri Alexander DO Referring Physician: Not on Staff, Referring [...] 18:32:00 EST, Inhaler, Route to Pharmacy Electronically, [id number], [facility], 183, cm, 04/25/19... Start Date: 04/25/19 Status: Orderedatorvastatin 20 mg oral tablet 1 tablet = 20 mg, By Mouth, Daily, # 30 tablet, 0 Refills, Maintenance, 04/25/19 18:28:00 EST, Tablet, [facility], 183, cm, 04/25/19 18:04:00 EST, Height, 104, kg, 04/11/19 0:21:00 EST, Dry Weight Start Date: 04/25/19 Status: Orderedbuprenorphine-naloxone 8 mg-2 mg sublingual film 1 film, Sublingual, Daily, [facility]ELTON [id number], # 12 film, 0 Refills, Maintenance, 04/25/19 18:32:00 EST, Film, [facility], 1 film Sublingual Daily,Instr:KELTON [id number], 183, cm, 04/25/19 18:04:00 EST, Height, 104, kg, 04/11/19 0:21:00 EST,... Start Date: 04/25/19 Status: OrderedbuPROPion 150 mg/12 hours (SR) oral tablet, extended release 1 tablet = 150 mg, By Mouth, 2 times a day, # 60 tablet, 0 Refills, Maintenance, 04/25/19 18:28:00 EST, SR Tablet, [facility], 183, cm, 04/25/19 18:04:00 EST, Height, 104, kg, 200:21:00 EST, Dry Weight Start Date: 04/25/19 Status: OrderedcloNIDine 0.1 mg oral tablet 0.1 mg, 1, tablet, By Mouth, 2 times a day, PRN, # 60 tablet, Refills 0, Tot. Refills 0, Maintenance, Anxiety Other, 04/25/19 18:32:00 EST, Route to Pharmacy Electronically, [facility], 183, cm, 04/25/19 18:04:00 EST, Height, 104, k... Start Date: 04/25/19 Status: OrderedColace sodium 100 mg oral capsule 200 mg, 2, capsule, By Mouth, 2 times a day, # 120 capsule, Refills 0, Tot. Refills 0, Maintenance, 04/25/19 18:33:00 EST, Route to Pharmacy Electronically, [facility], 183, cm, 04/25/19 18:04:00 EST, Height, [...] 0 Refills, Maintenance, 04/25/19 18:28:00 EST, Tablet, [facility], 183, cm, 04/25/19 18:04:00 EST, Height, 104, kg, 04/11/19 0:21:00 EST, Dry Weight Start Date: 04/25/19 Status: OrderedhydrOXYzine pamoate 25 mg oral capsule = 25 mg, By Mouth, 2 times a day, PRN Anxiety, if clonidine ineffective, # 60 capsule, 0 Refills, Maintenance, 04/25/19 18:33:00 EST, Capsule, [facility], 183, cm, 04/25/19 18:04:00 EST, Height, 104, kg, 04/11/19 0:21:00 EST, Dry Weight Start Date: 04/25/19 Status: Orderedinsulin glargine 100 units/mL subcutaneous solution 0.8 mL = 80 units, Subcutaneous Injection, Daily at bedtime, # 24 mL, 0 Refills, Maintenance, 04/26/19 11:27:00 EST, Injection, [facility], 183, cm, 04/25/19 18:04:00 EST, Height, 104,kg, 04/11/19 0:21:00 EST, Dry Weight Start Date: 04/26/19 Stop Date: 05/26/19 Status: Orderedinsulin lispro 100 u/ml subcutaneous injection 4-14 units, Subcutaneous Injection, 3 times a day before meals, # 15 mL, 0 Refills, Maintenance, 04/26/19 11:27:00 EST, Injection, [facility], 150 - 199 4 units; 200 [...] 18:30:00 EST, Route to Pharmacy Electronically, [facility], 183, cm, 04/25/19 18:04:00 EST, Height, 104, kg, 04/11/19 0:21:00 EST, Dry We... Start Date: 04/25/19 Status: OrderedmetFORMIN 500 mg oral tablet 1 each = 500 mg, By Mouth, 2 times a day, # 60 tablet, 0 Refills, Maintenance, 04/25/19 18:30:00 EST, Tablet, [facility], 183, cm, 04/25/19 18:04:00 EST, Height, [...] 18:30:00 EST, Route to Pharmacy Electronically, [facility], 183, cm, 04/25/19 18:04:00 EST, Height, 104, kg, 04/11/19 0:21:00... Start Date: 04/25/19 Status: Orderedsertraline 100 mg oral tablet 1 tablet = 100 mg, By Mouth, Daily, # 30 tablet, 0 Refills, Maintenance, 04/25/19 18:31:00 EST, Tablet, [facility], 183, cm, 04/25/19 18:04:00 EST, Height, 104, kg, 04/11/19 0:21:00 EST, Dry Weight Start Date: 04/25/19 Status: OrderedtraZODone 100 mg oral tablet 200 mg, 2, tablet, By Mouth, Daily at bedtime, # 60 tablet, Refills 0, Tot. Refills 0, Maintenance, 04/25/19 18:31:00 EST, Route to Pharmacy Electronically, [facility], 183, cm, 04/25/19 18:04:00 EST, Height, 104, kg, 04/11/19 0:21:00... Start Date: 04/25/19 Status: Ordered Problem List Condition Effective Dates Status Health Status Informant Asthma(Confirmed) Active Hyperlipidemia(Confirmed) Active Hypertension(Confirmed) Active Nicotine dependence(Confirmed) Active Polysubstance abuse(Confirmed) Active DM2 (diabetes mellitus, type Active 2)(Confirmed) Vital Signs Most recent to oldest 1 2 3 [Reference Range]: Oxygen Saturation [94-100 %] 100 % 100 % 100 % (10/24/19 2:36 PM) (10/23/19 8:22 PM) (10/23/19 5:5 4 PM) Pulse Rate [55-90 bpm] 59 bpm 62 bpm 60 bpm (10/24/19 2:36 PM) (10/24/19 6:27 AM) (10/23/19 8:2 2 PM) Blood Pressure [90-138/55-84 113/70 mm Hg 115/76 mm Hg 115 /76 mm Hg mm Hg] (10/24/19 2:36 PM) (10/24/19 9:56 AM) (10/24/19 6:2 7 AM) Respiratory Rate [16-30 18 br/min 20 br/min 18 br/mi n br/min] (10/24/19 2:36 PM) (10/24/19 10:55 AM) (10/24/19 9: 55 AM) Temperature [96.8-100.4 DegF] 98.4 DegF 97.5 DegF 98 .4 DegF (10/24/19 2:36 PM) (10/24/19 6:27 AM) (10/23/19 8:2 2 PM) Mode of Delivery (Oxygen) Room air Room air Room a ir (10/24/19 2:36 PM) (10/24/19 6:27 AM) (10/23/19 8:2 2 PM) Blood pressure sites Arm, right Arm, right Arm, right (10/24/19 2:36 PM) (10/24/19 6:27 AM) (10/23/19 8:2 2 PM) Temperature Route Oral Oral Oral (10/24/19 2:36 PM) (10/24/19 6:27 AM) (10/23/19 8:2 2 PM) Social History Social History Type Response Smoking Status 5-9 cigarettes (between 1/4 to 1/2 pack)/day in last 30 days; Type: Cigarettes entered on: 01/31/19 Sex
--- OUTSIDE RECORDS SUMMARY | 2022-01-11 08:19 | XMS_ITS | Continuity of Care Document ---
:1975 Author Organization [facility] Address [address] [place] [address]- Care Team Providers Name Role Phone Not on Staff, PCP Primary Care Physician Unavailable En[place] [facility] [place] Date(s): 04/10/19 - 04/26/19 [facility] [address] [place] [address]- [facility] Discharge Disposition: A-D/C Home Attending Physician: Alesia Yoo MD Admitting Physician: Mike Hanna MD Referring Physician: Not on Staff, Referring [...] 18:32:00 EST, Inhaler, Route to Pharmacy Electronically, [id number], [facility], 183, cm, 04/25/19... Start Date: [...] sublingual film 1 film, Sublingual, Daily, KELTON [id number], # 12 film, 0 Refills, Maintenance, 04/25/19 18:32:00 EST, Film, [facility], 1 film Sublingual Daily,Instr:KELTON [id number], 183, cm, 04/25/19 18:04:00 EST, Height, 104, kg, 04/11/19 0:21:00 EST,... Start Date: 04/25/19 Status: OrderedbuPROPion 150 mg/12 hours (SR) oral tablet, extended release 1 tablet = 150 mg, By Mouth, 2 times a day, # 60 tablet, 0 Refills, Maintenance, 04/25/19 18:28:00 EST, SR Tablet, [facility], 183, cm, 04/25/19 18:04:00 EST, Height, 104, kg, 200:21:00 EST, Dry Weight Start Date: 04/25/19 Status: OrderedcloNIDine 0.1 mg oral tablet 0.1 mg, 1, tablet, By Mouth, 2 times a day, PRN, # 60 tablet, Refills 0, Tot. Refills 0, Maintenance, Anxiety Other, 04/25/19 18:32:00 EST, Route to Pharmacy Electronically, [facility], 183, cm, 04/25/19 18:04:00 EST, Height, 104, k... Start Date: 04/25/19 Status: OrderedColace sodium 100 mg oral capsule 200 mg, 2, capsule, By Mouth, 2 times a day, # 120 capsule, Refills 0, Tot. Refills 0, Maintenance, 04/25/19 18:33:00 EST, [facility], [facility] Refills, Maintenance, 04/25/19 18:33:00 EST, Capsule, [facility], 183, cm, 04/25/19 18:04:00 EST, Height, 104, kg, 04/11/19 0:21:00 EST, Dry Weight Start Date: 04/25/19 Status: Orderedibuprofen 800 mg oral tablet 800 mg, 1, tablet, By Mouth, 3 times a day, PRN, # 90 tablet, Refills 0, Tot. Refills 0, Acute 05/28/19 21:00:00 EST, Pain , Mild Pain , Moderate, 04/25/19 18:34:00 EST, Route to Pharmacy Electronically, [facility], 183, cm, ... Start Date: 04/25/19 Stop Date: 05/28/19 Status: Orderedinsulin glargine 100 units/mL subcutaneous solution [...] Dry Weight Start Date: 04/26/19 Stop Date: 2/15/20 Status: Orderedlisinopril 20 mg oral tablet 20 [...] EST, Dry Weight Start Date: 04/25/19 Status: Orderednicotine 14 mg/24 hr transdermal film, extended release 1 patch, Topically, Daily, # 30 patch, 0 Refills, Acute 05/28/19 21:00:00 EST, 04/25/19 18:34:00 EST, Patch, [facility], 1 patch Topically Daily, 183, cm, 04/25/19 18:04:00 EST, Height, 104, kg, 04/11/19 0:21:00 EST, Dry Weight Start Date: 04/25/19 Stop Date: 05/28/19 Status: OrderedNicotine 2 mg gum = 2 mg, Chew, Every 15 minutes, PRN Other, Cigarette craving. Not to exceed 30 doses in 24 hours, # 160 each, 0 Refills, Acute 05/28/19 21:00:00 EST, 04/25/19 18:34:00 EST, Gum, [facility], 183, cm, 04/25/19 18:04:00 EST, Height, 104... Start Date: 04/25/19 Stop Date: 05/28/19 Status: Orderedpantoprazole 40 mg oral delayed release [...] Refills, Maintenance, 04/25/19 18:31:00 EST, Tablet, [facility], 183, cm, 04/25/19 18:04:00 EST, Height, 104, kg, 04/11/19 0:21:00 EST, Dry Weight Start Date: 04/25/19 Status: OrderedtraZODone 100 mg oral tablet 200 mg, 2, tablet, By Mouth, Daily at bedtime, # 60 tablet, Refills 0, Tot. Refills 0, Maintenance, 04/25/19 18:31:00 EST, [facility] Electronically, [facility] [Reference Range]: Height 183 cm 183 cm 183 cm (04/25/19 5:20 PM) (04/25/19 12:18 PM) (04/24/19 8: 05 AM) Weight 104.5 kg 104 kg 104 kg (04/17/19 8:04 AM) (04/10/19 2:26 AM) (04/10/19 2: 13 AM) Oxygen Saturation [94-100 %] 97 % 96 % 97 % (04/25/19 5:20 PM) (04/24/19 9:00 PM) (04/24/19 8:0 5 AM) Pulse Rate [55-90 bpm] 77 bpm 70 bpm 94 bpm (04/25/19 5:20 PM) (04/25/19 12:18 PM) *H* (04/24/19 9:00 PM ) Body Mass Index [18.5-24.99] 31.05 *>HHI* (04/09/19 2:13 AM) Blood Pressure [90-138/55-84 108/69 mm Hg 111/68 mm Hg 104 /62 mm Hg mm Hg] (04/26/19 8:07 AM) (04/25/19 5:20 PM) (04/25/19 12: 18 PM) Respiratory Rate [16-30 18 br/min 20 br/min 18 br/mi n br/min] (04/26/19 8:07 AM) (04/25/19 10:04 PM) (04/25/19 9: 31 PM) Temperature [96.8-100.4 98.3 DegF 97.2 DegF 97.9 Deg F DegF] (04/25/19 5:20 PM) (04/25/19 12:18 PM) (04/24/19 9: 00 PM) Mode of Delivery (Oxygen) Room air Room air Room a ir (04/25/19 5:20 PM) (04/24/19 9:00 PM) (04/23/19 9:0 0 PM) Blood pressure sites Arm, left Arm, right Arm, right (04/25/19 5:20 PM) (04/25/19 12:18 PM) (04/24/19 8: 05 AM) Temperature Route Oral Oral Oral (04/25/19 5:20 PM) (04/25/19 12:18 PM) (04/24/19 9: 00 PM) Dry Weight 104 kg (04/10/19 2:13 AM) Weight Obtained Via Standing scale (04/10/19 2:26 AM) Sensory deficits None (04/09/19 2:13 AM) Mobility assistance Independent (04/09/19 2:13 AM) Social History Social History Type Response Smoking Status 5-9 cigarettes (between 1/4 to 1/2 pack)/day in last 30 days; Type: Cigarettes entered on: 01/31/19 Sex
--- OUTSIDE RECORDS SUMMARY | 2022-01-11 08:20 | XMS_ITS | Continuity of Care Document ---
:1975 Author Organization [facility] Address [address] [place] [address]- Care Team Providers Name Role Phone Jason Shaikh MD, Pato Primary Care Physician Encounter [facility] [place] Date(s): 12/24/19 - 12/25/[address] [address]- [facility] Encounter Diagnosis Suicidal ideation (Final) - 12/24/19 Auditory hallucination (Final) - 12/24/19 Discharge Disposition: A-D/C Home Attending Physician: Misha [...] 18:32:00 EST, Inhaler, Route to Pharmacy Electronically, [id number], [facility], 183, cm, 04/25/19... Start Date: 04/25/19 Status: Orderedatorvastatin 20 mg oral tablet 1 tablet = 20 mg, By Mouth, Daily, # 30 tablet, 0 Refills, Maintenance, 04/25/19 18:28:00 EST, Tablet, [facility], 183, cm, 04/25/19 18:04:00 EST, Height, 104, kg, 04/11/19 0:21:00 EST, Dry Weight Start Date: 04/25/19 Status: Orderedbuprenorphine-naloxone 8 mg-2 mg sublingual film 1 film, Sublingual, Daily, [facility] [id number], # 12 film, 0 Refills, Maintenance, 04/25/19 18:32:00 EST, Film, [facility], 1 film Sublingual Daily,Instr:KELTON [id number], 183, cm, 04/25/19 18:04:00 EST, Height, 104, kg, 04/11/19 0:21:00 EST,... Start Date: 04/25/19 Status: OrderedbuPROPion 150 mg/12 hours (SR) oral tablet, extended release 1 tablet = 150 mg, By Mouth, 2 times a day, # 60 tablet, 0 Refills, Maintenance, 04/25/19 18:28:00 EST, SR Tablet, [facility], 183, cm, 04/25/19 18:04:00 EST, Height, 104, kg, 200:21:00 EST, Dry Weight Start Date: 04/25/19 Status: OrderedcloNIDine 0.1 mg oral tablet 0.1 mg, 1, tablet, By Mouth, 2 times a day, PRN, # 60 tablet, Refills 0, Tot. Refills 0, Maintenance, Anxiety Other, 04/25/19 18:32:00 EST, Route to Pharmacy Electronically, [facility], 183, cm, 04/25/19 18:04:00 EST, Height, 104, k... Start Date: 04/25/19 Status: OrderedColace sodium 100 mg oral capsule 200 mg, 2, capsule, By Mouth, 2 times a day, # 120 capsule, Refills 0, Tot. Refills 0, Maintenance, 04/25/19 18:33:00 EST, Route to Pharmacy Electronically, [facility], 183, cm, 04/25/19 18:04:00 EST, Height, [...] 0 Refills, Maintenance, 04/25/19 18:28:00 EST, Tablet, [facility], 183, cm, 04/25/19 18:04:00 EST, Height, 104, kg, 04/11/19 0:21:00 EST, Dry Weight Start Date: 04/25/19 Status: OrderedhydrOXYzine pamoate 25 mg oral capsule = 25 mg, By Mouth, 2 times a day, PRN Anxiety, if clonidine ineffective, # 60 capsule, 0 Refills, Maintenance, 04/25/19 18:33:00 EST, Capsule, [facility], 183, cm, 04/25/19 18:04:00 EST, Height, 104, kg, 04/11/19 0:21:00 EST, Dry Weight Start Date: 04/25/19 Status: Orderedinsulin glargine 100 units/mL subcutaneous solution 0.8 mL = 80 units, Subcutaneous Injection, Daily at bedtime, # 24 mL, 0 Refills, Maintenance, 04/26/19 11:27:00 EST, Injection, [facility], 183, cm, 04/25/19 18:04:00 EST, Height, 104,kg, 04/11/19 0:21:00 EST, Dry Weight Start Date: 04/26/19 Stop Date: 05/26/19 Status: Orderedinsulin lispro 100 u/ml subcutaneous injection 4-14 units, Subcutaneous Injection, 3 times a day before meals, # 15 mL, 0 Refills, Maintenance, 04/26/19 11:27:00 EST, Injection, [facility], 150 - 199 4 units; 200 [...] 18:30:00 EST, Route to Pharmacy Electronically, [facility], 183, cm, 04/25/19 18:04:00 EST, Height, 104, kg, 04/11/19 0:21:00 EST, Dry We... Start Date: 04/25/19 Status: OrderedmetFORMIN 500 mg oral tablet 1 each = 500 mg, By Mouth, 2 times a day, # 60 tablet, 0 Refills, Maintenance, 04/25/19 18:30:00 EST, Tablet, [facility], 183, cm, 04/25/19 18:04:00 EST, Height, [...] 18:30:00 EST, Route to Pharmacy Electronically, [facility], 183, cm, 04/25/19 18:04:00 EST, Height, 104, kg, 04/11/19 0:21:00... Start Date: 04/25/19 Status: Orderedsertraline 100 mg oral tablet 1 tablet = 100 mg, By Mouth, Daily, # 30 tablet, 0 Refills, Maintenance, 04/25/19 18:31:00 EST, Tablet, [facility], 183, cm, 04/25/19 18:04:00 EST, Height, 104, kg, 04/11/19 0:21:00 EST, Dry Weight Start Date: 04/25/19 Status: OrderedtraZODone 100 mg oral tablet 200 mg, 2, tablet, By Mouth, Daily at bedtime, # 60 tablet, Refills 0, Tot. Refills 0, Maintenance, 04/25/19 18:31:00 EST, Route to Pharmacy Electronically, [facility], 183, cm, 04/25/19 18:04:00 EST, Height, 104, kg, 04/11/19 0:21:00... Start Date: 04/25/19 Status: Ordered Problem List Condition Effective Dates Status Health Status Informant Asthma(Confirmed) Active Hyperlipidemia(Confirmed) Active Hypertension(Confirmed) Active Nicotine dependence(Confirmed) Active Polysubstance abuse(Confirmed) Active DM2 (diabetes mellitus, type Active 2)(Confirmed) Vital Signs Most recent to oldest 1 2 3 [Reference Range]: Oxygen Saturation [94-100 %] 99 % 100 % 99 % (12/25/19 9:41 AM) (12/24/19 4:09 PM) (12/24/19 9:1 2 AM) Pulse Rate [55-90 bpm] 82 bpm 67 bpm 71 bpm (12/25/19 9:41 AM) (12/24/19 4:09 PM) (12/24/19 9:1 2 AM) Blood Pressure [90-138/55-84 mm 118/78 mm Hg 145/92 mm Hg 155/96 mm Hg Hg] (12/25/19 9:41 AM) *H* *H* (12/24/19 4:09 PM) (12/24/19 9:12 AM) Respiratory Rate [16-30 br/min] 18 br/min 18 br/min 20 br/min (12/25/19 9:59 AM) (12/25/19 9:41 AM) (12/24/19 8:2 2 PM) Temperature [96.8-100.4 DegF] 97.4 DegF 98.0 DegF 97 .8 DegF (12/25/19 9:41 AM) (12/24/19 4:09 PM) (12/24/19 8:2 4 AM) Mode of Delivery (Oxygen) Room air Room air Room a ir (12/25/19 9:41 AM) (12/24/19 4:09 PM) (12/24/19 9:1 2 AM) Blood pressure sites Arm, left Arm, right Arm, right (12/25/19 9:41 AM) (12/24/19 4:09 PM) (12/24/19 5:3 0 AM) Temperature Route Oral Oral Oral (12/25/19 9:41 AM) (9/14/20 4:09 PM) (12/24/19 8:2 4 AM) Social History Social History Type Response Smoking Status 5-9 cigarettes (between 1/4 to 1/2 pack)/day in last 30 days; Type: Cigarettes entered on: 01/31/19 Sex Male
--- OUTSIDE RECORDS SUMMARY | 2022-01-11 08:20 | XMS_ITS | Continuity of Care Document ---
:1975 Author Organization [facility] Address [address] [place] [id number]- Care Team Providers Name Role Phone Not on Staff, PCP Primary Care Physician Unavailable Encounter [facility] Date(s): 07/25/19 - 07/26/[address] [address]- [facility] Encounter Diagnosis Cocaine abuse (Final) - 07/25/19 Discharge Disposition: A-D/C Home Attending Physician: Efrain [...] 18:32:00 EST, Inhaler, Route to Pharmacy Electronically, [id number], [facility], 183, cm, 04/25/19... Start Date: 04/25/19 Status: Orderedatorvastatin 20 mg oral tablet 1 tablet = 20 mg, By Mouth, Daily, # 30 tablet, 0 Refills, Maintenance, 04/25/19 18:28:00 EST, Tablet, [facility], 183, cm, 04/25/19 18:04:00 EST, Height, 104, kg, 04/11/19 0:21:00 EST, Dry Weight Start Date: 04/25/19 Status: Orderedbuprenorphine-naloxone 8 mg-2 mg sublingual film 1 film, Sublingual, Daily, [place] [id number], # 12 film, 0 Refills, Maintenance, 04/25/19 18:32:00 EST, Film, [facility], 1 film Sublingual Daily,Instr:KELTON [id number], 183, cm, 04/25/19 18:04:00 EST, Height, 104, kg, 04/11/19 0:21:00 EST,... Start Date: 04/25/19 Status: OrderedbuPROPion 150 mg/12 hours (SR) oral tablet, extended release 1 tablet = 150 mg, By Mouth, 2 times a day, # 60 tablet, 0 Refills, Maintenance, 04/25/19 18:28:00 EST, SR Tablet, [facility], 183, cm, 04/25/19 18:04:00 EST, Height, 104, kg, 200:21:00 EST, Dry Weight Start Date: 04/25/19 Status: OrderedcloNIDine 0.1 mg oral tablet 0.1 mg, 1, tablet, By Mouth, 2 times a day, PRN, # 60 tablet, Refills 0, Tot. Refills 0, Maintenance, Anxiety Other, 04/25/19 18:32:00 EST, Route to Pharmacy Electronically, [facility], 183, cm, 04/25/19 18:04:00 EST, Height, 104, k... Start Date: 04/25/19 Status: OrderedColace sodium 100 mg oral capsule 200 mg, 2, capsule, By Mouth, 2 times a day, # 120 capsule, Refills 0, Tot. Refills 0, Maintenance, 04/25/19 18:33:00 EST, Route to Pharmacy Electronically, [facility], 183, cm, 04/25/19 18:04:00 EST, Height, [...] 0 Refills, Maintenance, 04/25/19 18:28:00 EST, Tablet, [facility], 183, cm, 04/25/19 18:04:00 EST, Height, 104, kg, 04/11/19 0:21:00 EST, Dry Weight Start Date: 04/25/19 Status: OrderedhydrOXYzine pamoate 25 mg oral capsule = 25 mg, By Mouth, 2 times a day, PRN Anxiety, if clonidine ineffective, # 60 capsule, 0 Refills, Maintenance, 04/25/19 18:33:00 EST, Capsule, [facility], 183, cm, 04/25/19 18:04:00 EST, Height, 104, kg, 04/11/19 0:21:00 EST, Dry Weight Start Date: 04/25/19 Status: Orderedinsulin glargine 100 units/mL subcutaneous solution 0.8 mL = 80 units, Subcutaneous Injection, Daily at bedtime, # 24 mL, 0 Refills, Maintenance, 04/26/19 11:27:00 EST, Injection, [facility], 183, cm, 04/25/19 18:04:00 EST, Height, 104,kg, 04/11/19 0:21:00 EST, Dry Weight Start Date: 04/26/19 Stop Date: 05/26/19 Status: Orderedinsulin lispro 100 u/ml subcutaneous injection 4-14 units, Subcutaneous Injection, 3 times a day before meals, # 15 mL, 0 Refills, Maintenance, 04/26/19 11:27:00 EST, Injection, [facility], 150 - 199 4 units; 200 [...] 04/25/19 18:30:00 EST, Route to Pharmacy Electronically, [facility], 183, cm, 04/25/19 18:04:00 EST, Height, 104, kg, 04/11/19 0:21:00 EST, Dry We... Start Date: 04/25/19 Status: OrderedmetFORMIN 500 mg oral tablet 1 each = 500 mg, By Mouth, 2 times a day, # 60 tablet, 0 Refills, Maintenance, 04/25/19 18:30:00 EST, Tablet, [facility], 183, cm, 04/25/19 18:04:00 EST, Height, [...] 04/25/19 18:30:00 EST, Route to Pharmacy Electronically, [facility], 183, cm, 04/25/19 18:04:00 EST, Height, 104, kg, 04/11/19 0:21:00... Start Date: 04/25/19 Status: Orderedsertraline 100 mg oral tablet 1 tablet = 100 mg, By Mouth, Daily, # 30 tablet, 0 Refills, Maintenance, 04/25/19 18:31:00 EST, Tablet, [facility], 183, cm, 04/25/19 18:04:00 EST, Height, 104, kg, 04/11/19 0:21:00 EST, Dry Weight Start Date: 04/25/19 Status: OrderedtraZODone 100 mg oral tablet 200 mg, 2, tablet, By Mouth, Daily at bedtime, # 60 tablet, Refills 0, Tot. Refills 0, Maintenance, 04/25/19 18:31:00 EST, Route to Pharmacy Electronically, [facility], 183, cm, 04/25/19 18:04:00 EST, Height, 104, kg, 04/11/19 0:21:00... Start Date: 04/25/19 Status: Ordered Problem List Condition Effective Dates Status Health Status Informant Asthma(Confirmed) Active Hyperlipidemia(Confirmed) Active Hypertension(Confirmed) Active Nicotine dependence(Confirmed) Active Polysubstance abuse(Confirmed) Active DM2 (diabetes mellitus, type Active 2)(Confirmed) Vital Signs Most recent to oldest 1 2 3 [Reference Range]: Height 183 cm 183 cm 183 cm (07/26/19 6:13 AM) (07/25/19 5:27 PM) (07/25/19 5:2 2 PM) Weight 106.1 kg 106.1 kg 106.1 kg (07/26/19 6:13 AM) (07/25/19 5:27 PM) (07/25/19 5:2 2 PM) Oxygen Saturation [94-100 %] 94 % 98 % 99 % (07/26/19 6:13 AM) (07/26/19 12:34 AM) (07/25/19 10 :02 PM) Pulse Rate [55-90 bpm] 83 bpm 102 bpm 99 bpm (07/26/19 6:13 AM) *H* *H* (07/26/19 12:34 AM) (07/25/19 10:0 2 PM) Body Mass Index [18.5-24.99] 31.68 31.68 *>HHI* *>HHI* (07/26/19 6:13 AM) (07/25/19 5:22 PM) Blood Pressure [90-138/55-84 97/56 mm Hg 97/56 mm Hg 123 /60 mm Hg mm Hg] (07/26/19 8:03 AM) (07/26/19 6:13 AM) (07/26/19 12: 34 AM) Respiratory Rate [16-30 18 br/min 16 br/min 18 br/mi n br/min] (07/26/19 8:04 AM) (07/26/19 6:13 AM) (07/26/19 12: 34 AM) Temperature [96.8-100.4 DegF] 97.5 DegF 97.9 DegF 98 .1 DegF (07/26/19 6:13 AM) (07/25/19 10:02 PM) (07/25/19 5: 22 PM) Mode of Delivery (Oxygen) Room air Room air Room a ir (07/26/19 6:13 AM) (07/26/19 12:34 AM) (07/25/19 10 :02 PM) Blood pressure sites Arm, left Arm, right (07/26/19 6:13 AM) (07/25/19 5:22 PM) Temperature Route Oral Oral Oral (07/26/19 6:13 AM) (07/25/19 10:02 PM) (07/25/19 5: 22 PM) Dry Weight 106.1 kg 106.1 kg 106.1 kg (07/26/19 6:13 AM) (07/25/19 5:27 PM) (07/25/19 5:2 2 PM) Weight Obtained Via Standing scale (07/25/19 5:22 PM) Dry Weight Obtained Via Standing scale (07/25/19 5:22 PM) Social History Social History Type Response Smoking Status 5-9 cigarettes (between 1/4 to 1/2 pack)/day in last 30 days; Type: Cigarettes entered on: 01/31/19 Sex
--- OUTSIDE RECORDS SUMMARY | 2022-01-11 08:20 | XMS_ITS | Continuity of Care Document ---
:1975 Author Organization [facility] Address [address] [place] [address]- Care Team Providers Name Role Phone Jason Shaikh MD, Pato Primary Care Physician Encounter [facility] Date(s): 08/02/20 - 08/05/[address] [address]- Encounter Diagnosis Polysubstance abuse (Final) - 08/02/20 Suicide ideation (Final) - 08/02/20 Discharge Disposition: Transfer to [facility] Attending Physician: Ros Jeff MD Admitting Physician: Jatin Petersen MD Referring Physician: Not on Staff, Referring [...] 02/01/19 Not Given P atient Refuses Medications Acetaminophen Tablet 650 mg, Tablet, By Mouth, Every 4 hours, PRN for Pain , Mild, Temperature Greater than 100.5, Routine, 08/03/20 2:03:00 EDT Start Date: 08/03/20 Stop Date: 09/02/20 Status: Orderedatorvastatin 20 mg oral tablet 1 tablet = 20 mg, By Mouth, Daily Start Date: 07/18/20 Status: OrderedbuPROPion 150 mg/24 hours (XL) oral tablet, extended release 1 tablet = 150 mg, By Mouth, Every 24 hours, Maintenance, 07/22/20 16:57:00 EDT, ER Tablet, Partial fill upon patient request if the prescription is for a schedule II opioid drug. Start Date: 07/22/20 Status: Ordereddocusate sodium 100 mg oral capsule 1 capsule = 100 mg, By Mouth, 2 times a day, PRN as needed for constipation, 0 Refills, Maintenance,07/18/20 23:18:00 EDT, Capsule, Partial fill upon patient request if the prescription is for a schedule II opioid drug. Start Date: 07/18/20 Status: Orderedfolic acid 1 mg oral tablet 1 mg, 1, tablet, By Mouth, Daily, Refills 0, Maintenance, 08/05/20 18:33:00 EDT, Partial fill upon patient request if the prescription is for a schedule II opioid drug. Start Date: 08/05/20 Status: OrderedFreestyle Lite Test Strips 4 times a day, Maintenance, Use to test blood sugar, 07/22/20 16:46:00 EDT, Supply Start Date: 07/22/20 Status: Orderedgabapentin 300 mg oral capsule 600 mg, 2, capsule, By Mouth, 3 times a day Start Date: 07/18/20 Status: Orderedgabapentin 300 mg oral capsule 600 mg, Capsule, By Mouth, 08/05/20 9:00:00 EDT Start Date: 08/05/20 Stop Date: 08/05/20 Status: CompletedInsulin Lispro 2-10 units, Subcutaneous Injection, 3 times a day before meals, If <150 0 units, 150 - 199 2 units, 200 - 249 4 units, 250 - 299 6 units, 300 - 349 8 units, 350 - 399 10 units, 0 Refills, Maintenance, 08/05/20 18:32:00 EDT, Injection, Pa... Start Date: 08/05/20 Status: OrderedLantus 100 u/ml subcutaneous solution = 5 units, Subcutaneous Injection, Daily at bedtime Start Date: 07/22/20 Status: OrderedLidocaine 2% Topical 1 applicator = 5 Gm, Topically, 3 times a day, PRN Pain , Moderate, 0 Refills, Maintenance, Gel Start Date: 08/05/20 Status: Orderedlisinopril 20 mg oral tablet 20 mg, 1, tablet, By Mouth, Daily, # 30 tablet, Refills 0, Tot. Refills 0, Maintenance, 04/25/19 18:30:00 EST, Route to Pharmacy Electronically, [facility], 183, cm, 04/25/19 18:04:00 EST, Height, 104, kg, 04/11/19 0:21:00 EST, Dry We... Start Date: 04/25/19 Status: OrderedLORazepam 1 mg oral tablet 1 tablet = 1 mg, By Mouth, Every 2 hours, PRN Other, CIWA-AR Score 9-11, 0 Refills, Maintenance, 08/05/20 18:34:00 EDT, Tablet, Partial fill upon patient request if the prescription is for a schedule II opioid drug. Start Date: 08/05/20 Status: OrderedLORazepam 2 mg oral tablet 1 tablet = 2 mg, By Mouth, Every 2 hours, PRN Other, CIWA-AR Score 12-13, 0 Refills, Maintenance, 08/05/20 18:34:00 EDT, Tablet, Partial fill upon patient request if the prescription is for a schedule II opioid drug. Start Date: 08/05/20 Status: OrderedmetFORMIN 1000 mg oral tablet 1 tablet = 1,000 mg, By Mouth, 2 times a day, with meals Start Date: 07/18/20 Status: OrderedMiraLax oral powder for reconstitution = 17 Gm, By Mouth, Daily, PRN Constipation, dissolve in water before taking, Maintenance, 07/22/20 16:53:00 EDT, REC Powder, Partial fill upon patient request if the prescription is for a schedule II opioid drug. Start Date: 07/22/20 Status: OrderedMultivitamin Tablet 1 tablet, By Mouth, Daily, 0 Refills, Maintenance, 08/05/20 18:34:00 EDT, Tablet, Partial fill upon patient request if the prescription is for a schedule II opioid drug. Start Date: 08/05/20 Status: OrderedNarcan 4 mg/0.1 mL nasal spray 0.1 mL = 4 mg, Once, may repeat every 2 to 3 minutes until patient responds Start Date: 07/22/20 Status: Orderednicotine 21 mg/24 hr transdermal film, extended release APPLY 1 PATCH TOPICALLY TO THE SKIN DAILY IN THE MORNING THEN REMOVE AT BEDTIME DIRECTED DO NOT SMOKE WHILE USING PATCH Start Date: 07/18/20 Status: OrderedNitrofurantoin Capsule 100 mg, 1, capsule, By Mouth, 2 times a day, Maintenance, Contraindicated when CrCL less than 30 mL/min, 08/05/20 18:34:00 EDT Start Date: 08/05/20 Status: Orderedpantoprazole 40 mg oral delayed release tablet = 40 mg, By Mouth, Daily, # 30 tablet, 0 Refills, Maintenance, 04/25/19 18:35:00 EST, EC Tablet, 183, cm, 04/25/19 18:04:00 EST, Height, 104, kg, 04/11/19 0:21:00 EST, Dry Weight Start Date: 04/25/19 Status: OrderedProAir HFA 90 mcg/inh inhalation aerosol with adapter 2, puffs, Inhalation, Every 4 hours, PRN Start Date: 07/18/20 Status: OrderedPyridoxine Tablet 50 mg, By Mouth, Daily, Refills 0, Maintenance, 08/05/20 18:34:00 EDT, Partial fill upon patient request if the prescription is for a schedule II opioid drug. Start Date: 08/05/20 Status: OrderedSEROquel XR 150 mg oral tablet, extended release 150 mg, 1, tablet, By Mouth, Daily, Refills 0, Maintenance, 08/05/20 18:35:00 EDT, Partial fill uponpatient request if the prescription is for a schedule II opioid drug. Start Date: 08/05/20 Status: OrderedSuboxone 8 mg-2 mg sublingual film 2 film, Sublingual, Daily, Place 1 film under each side of tongue. Start Date: 07/22/20 Status: Orderedtamsulosin 0.4 mg oral capsule 0.4 mg, 1, capsule, By Mouth, Daily at bedtime Start Date: 07/18/20 Status: Orderedthiamine 100 mg oral tablet 100 mg, 1, tablet, By Mouth, 2 times a day, Refills 0, Maintenance, 08/05/20 18:35:00 EDT, Partial fill upon patient request if the prescription is for a schedule II opioid drug. Start Date: 08/05/20 Status: OrderedtraZODone 100 mg oral tablet 100 mg, 1, tablet, By Mouth, Daily at bedtime Start Date: 07/18/20 Status: OrderedZoloft 50 mg oral tablet 2 tablet = 100 mg, By Mouth, Daily, 0 Refills, Maintenance, 08/05/20 18:35:00 EDT, Tablet, Partial fill upon patient request if the prescription is for a schedule II opioid drug. Start Date: 08/05/20 Status: Ordered Problem List Condition Effective Dates Status Health Status Informant Asthma(Confirmed) Active Hyperlipidemia(Confirmed) Active Hypertension(Confirmed) Active Nicotine dependence(Confirmed) Active Polysubstance abuse(Confirmed) Active DM2 (diabetes mellitus, type Active 2)(Confirmed) Results Orders for Microbiology Reports Name Date Urine Culture (URINE CULTURE) 08/03/20 Microbiology Reports TEST:Urine Culture STATUS:Auth (Verified) BODY SITE: SOURCE:URINE COLLECTED DATE/TIME:08/03/20 12:45 AMUrine Culture SPECIMEN DESCRIPTION : URINE SPECIAL REQUESTS : NONE CULTURE : >100,000 COL/ML ESCHERICHIA COLI <10,000 COL/ML STREPTOCOCCUS SPECIES SUSCEPTIBILITY TESTING NOT ROUTINELY PERFORMED ON THIS ISOLATE. REPORT STATUS : FINAL 08/05/2020 ORGANISM >100,000 COL/ML ESCHERICHIA COLI METHOD MIN. INHIB. CONC. (MCG/ML) AMPICILLIN RESISTANT AMPICILLIN/SULBACTAM RESISTANT AMOXICILLIN/CLAVULAN INTERMEDIATE CEFAZOLIN RESISTANT CEFEPIME SUSCEPTIBLE CEFTRIAXONE SUSCEPTIBLE CIPROFLOXACIN SUSCEPTIBLE ERTAPENEM SUSCEPTIBLE GENTAMICIN SUSCEPTIBLE LEVOFLOXACIN SUSCEPTIBLE MEROPENEM SUSCEPTIBLE NITROFURANTOIN SUSCEPTIBLE PIPERACILLIN/TAZOBAC SUSCEPTIBLE TRIMETH/SULFAMETHOX RESISTANT TETRACYCLINE SUSCEPTIBLERadiology Reports Exam Date Time Procedure Performing Provider Status 08/02/20 5:44 PM Chest 2 Views Frontal and Lat Skye Rodriguez; Auth (Verified) Notes:(Chest 2 Views Frontal and Lat) Reason For Exam: Shortness of Breath RESULT: Chest 2 Views Frontal and Lat Chest 2 Views Frontal and Lat Hx of Present Illness: Pt reports ingestion of heroin, Xanax and cocaine as well as ETOH prior to arrival. Passerby on the street called 911. Pt admits he tried to kill himself by overdosing and that he has thoughts of hurting others as well.; Reason: Shortness of Breath; Clinical Question(s): CHF COMPARISON: 06/05/2020 FINDINGS: LINES AND TUBES: None. LUNGS AND PLEURA: Clear lungs. Normal pulmonary vascularity. No pleural effusion. No pneumothorax. HEART, MEDIASTINUM AND VAL: Heart is normal in size. Normal upper mediastinal and hilar contour. BONES AND SOFT TISSUES: No acute abnormality. IMPRESSION: No acute abnormality. WSN: [id number] Ordering Physician: Marimar Stockton Dictated By: Malcolm Kimball MD Dictated Date/Time: 08/02/20 5:47 pm Reviewed By: Malcolm Kimball MD Signed By: Malcolm Kimball MD Signed Date/Time: 08/02/20 5:47 pm Transcribed By: BREE Transcribed Date/Time: 08/02/20 5:46 pm Vital Signs Most recent to oldest 1 2 3 [Reference Range]: Height 184 cm 184 cm 184 cm (08/05/20 8:01 AM) (08/05/20 4:32 AM) (08/04/20 11: 49 PM) Weight 99 kg 99 kg 99 kg (08/02/20 11:52 PM) (08/02/20 8:34 PM) (08/02/20 8: 10 PM) Oxygen Saturation [94-100 %] 100 % 97 % 97 % (08/05/20 3:00 PM) (08/05/20 8:01 AM) (08/05/20 4:3 2 AM) Pulse Rate [55-90 bpm] 97 bpm 65 bpm 67 bpm *H* (08/05/20 8:01 AM) (08/05/20 4:32 AM) (08/05/20 3:00 PM) Body Mass Index [18.5-24.99] 29.24 29.24 29. 24 *H* *H* *H* (08/02/20 11:52 PM) (08/02/20 8:34 PM) (08/02/20 8: 10 PM) Blood Pressure [90-138/55-84 124/80 mm Hg 139/90 mm Hg 124 /80 mm Hg mm Hg] (08/05/20 3:00 PM) *H* (08/05/20 4:32 AM) (08/05/20 8:01 AM) Respiratory Rate [16-30 16 br/min 20 br/min 20 br/mi n br/min] (08/05/20 3:38 PM) (08/05/20 10:19 AM) (08/05/20 10 :19 AM) Temperature [96.8-100.4 97.4 DegF 97.8 DegF 97.9 Deg F DegF] (08/05/20 3:00 PM) (08/05/20 8:01 AM) (08/05/20 4:3 2 AM) Liters per Minute 2 L/min 2 L/min 3 L/min (08/03/20 4:00 AM) (08/03/20 1:00 AM) (08/02/20 11: 52 PM) Mode of Delivery (Oxygen) Room air Room air Room a ir (08/05/20 3:00 PM) (08/05/20 8:01 AM) (08/05/20 4:3 2 AM) Blood pressure sites Arm, left Arm, left Arm, left (08/05/20 8:01 AM) (08/05/20 4:32 AM) (08/04/20 11: 49 PM) Temperature Route Oral Oral Oral (08/05/20 8:01 AM) (08/05/20 4:32 AM) (08/04/20 11: 49 PM) Dry Weight 99 kg 99 kg 99 kg (08/02/20 11:52 PM) (08/02/20 8:34 PM) (08/02/20 8: 10 PM) Social History Social History Type Response Smoking Status 5-9 cigarettes (between 1/4 to 1/2 pack)/day in last 30 days; Type: Cigarettes entered on: 01/31/19 Sex
--- OUTSIDE RECORDS SUMMARY | 2022-01-11 08:20 | XMS_ITS | Continuity of Care Document ---
:1975 Author Organization [address] [place] [address]- Care Team Providers Name Role Phone Jason Shaikh MD, Pato Primary Care Physician [phone] Encounter [facility] Date(s): 07/02/20 - 09/24/[address] [place], [place] [address] Attending Physician: Kimi Estes MD Referring Physician: Pato Gastelum MD Allergies, Adverse Reactions, Alerts Substance Reaction [...] 10:56:00 EDT, Inhaler, Route to Pharmacy Electronically, [id number], [facility], 182.8, cm, ... Start Date: 08/13/20 Status: Orderedatorvastatin 20 mg oral tablet 1 tablet = 20 mg, By Mouth, Daily, # 30 tablet, 0 Refills, Maintenance, 08/13/20 10:57:00 EDT, Tablet, [facility], Partial fill upon patient request if the prescription is for a schedule II opioid drug., 182.8, cm, 08/12/20 19:54:0... Start Date: 08/13/20 Status: OrderedbuPROPion 150 mg/24 hours (XL) oral tablet, extended release 1 tablet = 150 mg, By Mouth, Daily, # 30 tablet, 0 Refills, Maintenance, 08/13/20 11:11:00 EDT, XL Tablet, [facility], Partial fill upon patient request if the prescription is for aschedule II opioid drug., 1 tablet By Mouth Daily... Start Date: 08/13/20 Status: OrderedbuPROPion 300 mg/24 hours (XL) oral tablet, extended release 1 tablet = 300 mg, By Mouth, Daily, # 30 tablet, 0 Refills, Maintenance, 08/13/20 10:57:00 EDT, XL Tablet, [facility], Partial fill upon patient request [...] 0 Refills, Maintenance, 08/13/20 11:08:00 EDT, Tablet, [facility], Partial fill upon patient request if the prescription is for a schedule II opioid drug., 182.8, cm, ... Start Date: 08/13/20 Status: Orderedinsulin glargine 100 units/mL subcutaneous solution 0.2 mL = 20 units, Subcutaneous Injection, Daily at bedtime, # 6 mL, 0 Refills, Maintenance, 08/13/20 11:14:00 EDT, Injection, [facility], Partial fill upon patient request [...] 08/13/20 10:58:00 EDT, Route to Pharmacy Electronically, [facility], Partial fill upon patient request if the prescription is for a schedule II... Start Date: 08/13/20 Status: OrderedmetFORMIN 1000 mg oral tablet 1 tablet = 1,000 mg, By Mouth, 2 times a day, with meals, # 60 tablet, 0 Refills, Maintenance, 08/13/20 10:58:00 EDT, Tablet, [facility], Partial fill upon patient request if the prescription is for a schedule II opioid drug., 182.... Start Date: 08/13/20 Status: Orderedmultivitamin Multiple Vitamins oral tablet 1 tablet, By Mouth, Daily, # 30 tablet, 1 Refills, Maintenance, 08/13/20 10:59:00 EDT, Tablet, [facility], Partial fill upon patient request [...] Acute 08/13/21 9:00:00 EDT, 08/13/20 10:59:00 EDT,Patch, [facility], Partial fill upon patient request if the prescription is for a schedule II opioid drug., 1 patch Topically Shasha... Start Date: 08/13/20 Stop Date: 08/13/21 Status: Orderednitrofurantoin macrocrystals 100 mg oral capsule 1 capsule = 100 mg, By Mouth, 2 times a day, # 60 capsule, 0 Refills, Acute 08/13/21 9:00:00 EDT, 08/13/20 11:00:00 EDT, Capsule, [facility], Partial fill upon patient request if the prescription is for a schedule II opioid drug.,... Start Date: 08/13/20 Stop Date: 08/13/21 Status: Orderedomeprazole 20 mg oral enteric coated capsule 1 capsule = 20 mg, By Mouth, Daily, # 30 capsule, 0 Refills, Maintenance, 08/13/20 11:12:00 EDT, EC Capsule, [facility], Partial fill upon patient request if the prescription is fora schedule II opioid drug., 182.8, cm, 08/12/20 1... Start Date: 08/13/20 Status: OrderedSEROquel 50 mg oral tablet 1 tablet = 50 mg, By Mouth, 2 times a day, # 60 tablet, 0 Refills, Maintenance, 08/13/20 11:04:00 EDT, Tablet, [facility], Partial fill upon patient request [...] 08/13/20 11:01:00 EDT, Route to Pharmacy Electronically, [facility], Partial fill upon patient request if the prescription is for... Start Date: 08/13/20 Status: OrderedtraZODone 100 mg oral tablet 100 mg, 1, tablet, By Mouth, Daily at bedtime, # 30 tablet, Refills 0, Tot. Refills 0, Maintenance, 08/13/20 11:01:00 EDT, Route to Pharmacy Electronically, [facility], Partial fillupon patient request if the prescription is for a... Start Date: 08/13/20 Status: OrderedZoloft 100 mg oral tablet 1 tablet = 100 mg, By Mouth, Daily, # 30 tablet, 0 Refills, Maintenance, 08/13/20 11:06:00 EDT, Tablet, [facility], Partial fill upon patient request if the prescription is for a schedule II opioid drug., 182.8, cm, 08/12/20 19:54:... Start Date: 08/13/20 Status: Ordered Problem List Condition Effective Dates Status Health Status Informant Asthma(Confirmed) Active Hyperlipidemia(Confirmed) Active Hypertension(Confirmed) Active Nicotine dependence(Confirmed) Active Polysubstance abuse(Confirmed) Active DM2 (diabetes mellitus, type Active 2)(Confirmed) Social History Social History Type Response Smoking Status 5-9 cigarettes (between 1/4 to 1/2 pack)/day in last 30 days; Type: Cigarettes entered on: 01/31/19 Sex
--- OUTSIDE RECORDS SUMMARY | 2022-01-11 08:20 | XMS_ITS | Continuity of Care Document ---
:1975 Author Organization [facility] Address [address] [place] [id number]- Care Team Providers Name Role Phone Jason Shaikh MD, Pato Primary Care Physician [id number] Date(s): 05/27/21 - 05/28/[address] [address]- Encounter Diagnosis Altered mental status (Final) - 05/27/21 Urinary tract infection (Final) - 05/27/21 Discharge Disposition: A-D/C Home Attending Physician: Giacomo Greenberg MD Admitting Physician: Giacomo Greenberg MD Referring Physician: Not on Staff, Referring [...] tablet, 0 Refills, Maintenance, 03/05/21 16:20:00EST, Tablet, [facility], Partial fill upon patient request if the prescription is for a schedule II opioid drug., 182, cm, 03/04/21 20:2... Start Date: 03/05/21 Stop Date: 03/19/21 Status: Orderedalbuterol CFC free 90 mcg/inh inhalation aerosol 180 mcg, 2, puffs, Inhalation, Every 4 hours, PRN, # 1 each, Refills 1, Tot. Refills 1, Maintenance,08/13/20 10:56:00 EDT, Inhaler, Route to Pharmacy Electronically, [id number], [facility], 182.8, cm, ... Start [...] 03/05/21 16:21:00 EST, Route to Pharmacy Electronically, [facility], Partial fill upon patient request if [...] 2 Refills, Soft Stop, 03/04/21 16:37:00 EST, [place], [facility], Partial fill upon patient request if [...] 0 Refills, Maintenance, 03/05/21 16:21:00 EST, Capsule, [facility], Partial fill upon patient request if [...] Exam Date Time Procedure Performing Provider Status 05/27/21 10:26 AM Chest 2 Views Frontal and Lat Cameron Saul ; Alondra (Verified) Notes:(Chest 2 Views Frontal and Lat) Reason For Exam: AnginaRESULT: Chest 2 Views Frontal and Lat Chest 2 Views Frontal and Lat INDICATION: Angina COMPARISON: 08/02/2020 FINDINGS: LINES AND TUBES: None. LUNGS AND PLEURA: Clear lungs. Normal pulmonary vascularity. No pleural effusion. No pneumothorax. HEART, MEDIASTINUM AND VAL: Heart is normal in size. Normal upper mediastinal and hilar contour. BONES AND SOFT TISSUES: No acute abnormality. Chronic right acromioclavicular joint injury. IMPRESSION: No evidence of acute abnormality. I have personally reviewed the images and I agree with this report. WSN: [id number] Ordering Physician: Zhou Krueger Dictated By: Jairo Oh DO Dictated Date/Time: 05/27/21 10:35 a Reviewed By: Lewis Morris MD Signed By: Lewis Morris MD Signed Date/Time: 05/27/21 10:40 am Transcribed By: BREE Transcribed Date/Time: 05/27/21 10:32 am Vital Signs Most recent to oldest 1 2 3 [Reference Range]: Height 182 cm 182 cm 182 cm (05/28/21 6:31 AM) (05/28/21 4:29 AM) (05/27/21 10: 42 AM) Weight 77 kg 77 kg 77 kg (05/28/21 6:31 AM) (05/28/21 4:29 AM) (05/27/21 10: 42 AM) Oxygen Saturation [94-100 95 % 99 % 98 % %] (05/28/21 6:31 AM) (05/28/21 4:29 AM) (05/27/21 5:3 7 PM) Pulse Rate [55-90 bpm] 68 bpm 65 bpm 64 bpm (05/28/21 6:31 AM) (05/28/21 4:29 AM) (05/27/21 9:3 6 PM) Body Mass Index 23.25 23.25 23.25 [18.5-24.99] (05/28/21 6:31 AM) (05/28/21 4:29 AM) (05/27/21 9:2 6 AM) Blood Pressure 156/98 mm Hg 161/86 mm Hg 179/102 mm Hg [90-138/55-84 mm Hg] *H* *H* *H* (05/28/21 6:31 AM) (05/28/21 4:29 AM) (05/27/21 9:3 6 PM) Respiratory Rate [16-30 18 br/min 17 br/min 20 br/mi n br/min] (05/27/21 9:36 PM) (05/27/21 8:19 PM) (05/27/21 5:3 7 PM) Temperature [96.8-100.4 97.5 DegF 97.6 DegF 98.5 Deg F DegF] (05/27/21 8:19 PM) (05/27/21 5:37 PM) (05/27/21 10: 42 AM) Mode of Delivery (Oxygen) Room air Room air Room a ir (05/27/21 9:36 PM) (05/27/21 8:19 PM) (05/27/21 5:3 7 PM) Blood pressure sites Arm, left Arm, left Arm, right (05/27/21 8:19 PM) (05/27/21 5:37 PM) (05/27/21 11: 58 AM) Temperature Route Oral Oral Oral (05/27/21 8:19 PM) (05/27/21 5:37 PM) (05/27/21 10: 42 AM) Weight Obtained Via Patient/family stated (05/27/21 9:26 AM) Social History Social History Type Response Smoking Status 5-9 cigarettes (between 1/4 to 1/2 pack)/day in last 30 days; Type: Cigarettes entered on: 01/31/19 Sex
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
--- NOTE | 2022-01-11 08:22 | ED.PSYCH ---
HPI - Psych General Chief Complaint: ETOH/Substance Use Stated Complaint: Detox Time Seen by Provider: 01/11/22 08:10 Source: patient Mode of arrival: ambulatory Limitations: no limitations History of Present Illness HPI Narrative: requesting detox for ETOH and heroin has not made calls or attempted on his own. has no medical complaints. not taking his prescribed medications. no SI. MD complaint: substance abuse and alcohol abuse Onset (ago): month(s) Duration: getting worse History of same: Yes Relieving factors: none Exacerbating factors: alcohol and drug use Context: recent drug abuse and not taking psychiatric medications Associated psychiatric symptoms: none Associated symptoms: denies other symptoms Treatments prior to arrival: none Related Data Previous Rx's Medication Instructions Recorded amlodipine 10 mg tablet 10 mg PO DAILY 30 days #30 tabs 01/05/22 aripiprazole 10 mg tablet 10 mg PO DAILY 30 days #30 tabs 01/05/22 blood sugar diagnostic (FreeStyle #100 ea 01/05/22 Lite Strips) buprenorphine 8 mg-naloxone 2 mg 1 film buccal TID 30 days #90 ea 01/05/22 sublingual film (Suboxone) bupropion HCl 150 mg 24 hr tablet, 150 mg PO QAM 30 days #30 tabs 01/05/22 extended release bupropion HCl 300 mg 24 hr tablet, 300 mg PO QAM 30 days #30 tabs 01/05/22 extended release cefuroxime axetil 500 mg tablet 500 mg PO BID 6 days #11 tabs 01/05/22 docusate sodium 100 mg capsule 100 mg PO BID PRN constipation 30 01/05/22 days #30 caps finasteride 5 mg tablet (Proscar) 5 mg PO DAILY 30 days #30 tabs 01/05/22 gabapentin 600 mg tablet 600 mg PO TID 30 days #90 tabs 01/05/22 insulin glargine 100 unit/mL 70 unit (0.7 mL) subcut BEDTIME 30 01/05/22 subcutaneous solution (Lant days #21 mL U-100 Insulin) insulin lispro 100 unit/mL See Protocol subcut QIDACHS PRN as 01/05/22 subcutaneous solution (Humalog needed per blood sugar 30 days #10 U-100 Insulin) mL insulin syringe-needle U-100 1 mL #100 ea 01/05/22 31 gauge x 5/16 (FreeStyle Precision) metformin 500 mg tablet 500 mg PO BID 30 days #60 tabs 01/05/22 multivitamin (Daily-Dwayne tablet) 1 tab PO DAILY 30 days #30 tabs 01/05/22 nicotine 21 mg/24 hr daily 21 mg transdermal DAILY 28 days 01/05/22 transdermal patch #28 ea pantoprazole 40 mg tablet,delayed 40 mg PO QAM 30 days #30 tabs 01/05/22 release quetiapine 200 mg tablet 200 mg PO BEDTIME 30 days #30 tabs 01/05/22 quetiapine 200 mg tablet 200 mg PO BEDTIME 30 days #30 tabs 01/05/22 tamsulosin 0.4 mg capsule 0.4 mg PO DAILY 30 days #30 caps 01/05/22 trazodone 100 mg tablet 150 mg PO BEDTIME 30 days #45 tabs 01/05/22 Allergies Allergy/AdvReac Type Severity Reaction Status Date / Time levofloxacin [From Levaquin] Allergy Intermediate rash Verified 11/21/20 20:44 Review of Systems Review of Systems: Constitutional : No Fever, No Chills ENT/Mouth : No Ear Pain, No Nasal Congestion, No sore throat Eyes: No Eye Pain, No Swelling, No Redness Cardiovascular : No Chest Pain, No SOB Respiratory : No Cough, No Sputum, No Dyspnea Gastrointestinal : No Nausea, No Vomiting, No Diarrhea, No Hematochezia, No Melena Genitourinary : No Dysuria, No Urinary Frequency, No Hematuria Musculoskeletal : No Myalgias Skin : No Skin Lesions, No rash Neuro : No Weakness, No Numbness, No Paresthesias, No Dizziness, No Headache Psych : positive Anxiety, no Depression, no SI/HI Heme/Lymph: No Lymphadenopathy Endocrine : No Polyuria, No Polydipsia All other systems reviewed and are negative [facility] Past Medical History Attestation statement: The following information was validated with the patient. Medical History Alcohol use Alcohol use Alcohol use disorder, severe, dependence BPH (benign prostatic hyperplasia) (~10/11/20) Chronic pain Diverticulitis DM II (diabetes mellitus, type II), controlled High cholesterol (~10/11/20) HTN (hypertension) Marijuana use MDD (major depressive disorder), recurrent episode, severe Neuropathy Opiate dependence Opioid use disorder Opioid use disorder Recurrent UTI Stimulant use disorder Tobacco use disorder Urinary hesitancy Social History Social History Household Members: None Household Members Other:: Homeless Housing: Homeless Do you presently have visiting nurse or other home services: No Unable to assess alcohol history related to: Refusing to respond Alcohol intake: current Alcohol intake frequency: 0-2 drinks per day Alcohol type: beer and hard liquor Patient Tobacco Use Status: Current everyday Tobacco user Tobacco use type: Cigarette Cigarette Packs Per Day: 2 Cigarettes Per Day: 40.0 Years Smoked: 36 e-Cigarette/Vaping Use: Currently Using Second Hand Smoke Exposure: No Substance Use Type: Amphetamines, Crack/Cocaine, Heroin, Marijuana, Methamphetamine and Opiates Advance Directives: No Advance Directives Information Provided: Yes service: No Current occupational status: unemployed Sexual orientation: Did not discuss Physical Exam Vital Signs: Vital Signs: Last Vital Signs Temp 97 F 01/11/22 08:06 Pulse 74 01/11/22 08:06 Resp 16 01/11/22 08:06 BP 160/112 H 01/11/22 08:06 Pulse Ox 96 01/11/22 08:06 O2 Del Method 01/11/22 08:06 BMI result Body Mass Index 24.2 Appearance: Alert. Oriented X3. No acute distress. Appears under the influence Eyes: Pupils equal, round and reactive to light. ENT: Pharynx normal. Neck: Normal inspection. Neck supple. CVS: Normal heart rate and rhythm. Pulses normal. Respiratory: No respiratory distress. Breath sounds normal. Abdomen: Soft and nontender. Skin: Skin warm and dry. Normal skin color. Normal skin turgor. Extremities: No lower extremity edema. No calf ttp Neuro: Oriented X 3. No motor deficit. No sensory deficit. Course Course Course Narrative: Physician observation started at 906am Patient placed in physician observation because the patient needed more time for recovery coaches/CARE team to help with detox. At the time observation was started the patient's vitals were stable, patient is alert and oriented, Neuro: nonfocal, CV RRR, Lungs clear MDM - Psych MDM Narrative Medical decision making narrative: 46 yo male hx of DM, HTN, treated hep C here with c/o wanting detox. He denies SI and has no medical complaints. Dispo per results and CARE team/recovery team input. Lab Data Result diagrams: 01/11/22 08:34 01/11/22 08:34 Labs: Lab Results 01/11/22 01/11/22 01/11/22 Range/Units 08:34 08:34 08:34 WBC 6.1 (4.8-10.8) X10*3/uL RBC 4.90 (4.60-5.80) X10*6/uL Hgb 14.8 (14.0-18.0) g/dl Hct 42.6 (42.0-52.0) % MCV 86.9 (80.0-98.0) fL MCH 30.2 (27.0-33.0) pg MCHC 34.7 (31.0-36.0) g/dl RDW 12.1 (11.0-16.0) % Plt Count 285 (160-400) X10*3/uL MPV 9.6 (9.4-12.4) fL Immature Gran % (Auto) 0.2 (0.0-0.4) % Neut % (Auto) 71.4 (45-73) % Lymph % (Auto) 15.4 L (20-40) % Mcpherson % (Auto) 10.5 (2-11) % Eos % (Auto) 1.8 (0-4) % Baso % (Auto) 0.7 (0-2) % Lymph # (Auto) 0.9 L (1.2-4.9) X10*3/uL Mcpherson # (Auto) 0.6 (0.1-1.2) X10*3/uL Eos # (Auto) 0.1 (0.0-0.4) X10*3/uL Baso # (Auto) 0.0 (0.0-0.2) X10*3/uL Abs Immat Gran (auto) 0.01 (0.00-0.03) X10*3/uL Absolute Neuts (auto) 4.4 (2.0-8.3) x10*3/uL Absolute Nucleated RBC 0.000 (0.0-0.012) X10*3/uL Nucleated RBC % (auto) 0.0 (0.0-0.2) /100WBC Sodium 136 (135-145) mmol/L Potassium 3.5 (3.3-5.1) mmol/L Chloride 97 (96-108) mmol/L Carbon Dioxide 25 (22-29) mmol/L Anion Gap 18 (12-20) BUN 7 L (9-16) mg/dL Creatinine 0.72 (0.5-1.4) mg/dL Estim Creat Clear Calc 143.7 Estimated GFR > 60 Random Glucose 148 H D (60-115) mg/dL Calcium 8.8 (8.4-10.2) mg/dL Total Bilirubin 0.9 (0.0-1.0) mg/dL Direct Bilirubin 0.5 (0.0-0.5) mg/dL AST 65 H (5-37) U/L ALT 52 H (0-40) U/L Alkaline Phosphatase 64 (39-117) U/L Total Protein 7.6 (6.5-8.0) g/dL Albumin 4.1 (3.5-5.0) g/dL Ethyl Alcohol < 10 mg/dL COVID-19 (DELIO) Negative (Negative) COVID-19 Clin Com See Note Discharge Plan Discharge Clinical Impression: Opioid use disorder, Alcohol abuse Patient Disposition: Still a Patient Prescriptions: No Action insulin glargine [Lantus U-100 Insulin] 100 unit/mL Solution 70 unit subcut BEDTIME 30 Days Qty: 21 0RF Rx Instructions: quantity 7 (DME) FreeStyle Lite Strips Strip See Rx Instructions .Route Qty: 100 1RF Rx Instructions: As directed (DME) insulin syringe-needle U-100 [FreeStyle Precision] 1 mL 31 gauge x 5/16 syringe See Rx Instructions .Route Qty: 100 0RF Rx Instructions: As directed insulin lispro [Humalog U-100 Insulin] 100 unit/mL Solution See Protocol subcut QIDACHS PRN (Reason: as needed per blood sugar) 30 Days Qty: 10 0RF Protocol: Insulin Correction Scale Less than or equal to 110 ---- Give (units): 0 111 to 150 Give (units): 0 151 to 200 Give (units): 2 201 to 250 Give (units): 4 251 to 300 Give (units): 6 301 to 350 Give (units): 8 Greater than 350 Give (units): 10 Call MD if Blood Glucose > : 350 Rx Instructions: Less than or equal to 110 ---- Give (units): 0 111 to 150 Give (units): 0 151 to 200 Give (units): 2 201 to 250 Give (units): 4 251 to 300 Give (units): 6 301 to 350 Give (units): 8 Greater than 350 Give (units): 10 Call your PCP if Blood Glucose is at or over:350 cefuroxime axetil 500 mg Tablet 500 mg PO BID 6 Days Qty: 11 0RF nicotine 21 mg/24 hr Patch 24 Hour 21 mg transdermal DAILY 28 Days Qty: 28 0RF tamsulosin 0.4 mg Capsule 0.4 mg PO DAILY 30 Days Qty: 30 0RF amlodipine 10 mg tablet 10 mg PO DAILY 30 Days Qty: 30 0RF aripiprazole 10 mg Tablet 10 mg PO DAILY 30 Days Qty: 30 0RF quetiapine 200 mg Tablet 200 mg PO BEDTIME 30 Days Qty: 30 0RF docusate sodium 100 mg Capsule 100 mg PO BID PRN (Reason: constipation) 30 Days Qty: 30 0RF gabapentin 600 mg tablet 600 mg PO TID 30 Days Qty: 90 0RF quetiapine 200 mg tablet 200 mg PO BEDTIME 30 Days Qty: 30 0RF trazodone 100 mg tablet 150 mg PO BEDTIME 30 Days Qty: 45 0RF pantoprazole 40 mg tablet,delayed release (DR/EC) 40 mg PO QAM 30 Days Qty: 30 0RF bupropion HCl 300 mg tablet extended release 24 hr 300 mg PO QAM 30 Days Qty: 30 0RF Rx Instructions: take with 150mg tab bupropion HCl 150 mg tablet extended release 24 hr 150 mg PO QAM 30 Days Qty: 30 0RF Rx Instructions: take with 300mg tab multivitamin [Daily-Dwayne] Tablet 1 tab PO DAILY 30 Days Qty: 30 0RF finasteride [Proscar] 5 mg Tablet 5 mg PO DAILY 30 Days Qty: 30 0RF metformin 500 mg tablet 500 mg PO BID 30 Days Qty: 60 0RF buprenorphine-naloxone [Suboxone] 8-2 mg film 1 film buccal TID 30 Days Qty: 90 0RF
[2022-01-11 08:42] LABS: MANUAL DIFF FLAG NO
[2022-01-11 08:45] LABS: Basophils Percent Auto 0.7 % (0-2); Eosinophils Absolute Auto 0.1 X10*3/uL (0.0-0.4); Eosinophils Percent Auto 1.8 % (0-4); Hematocrit 42.6 % (42.0-52.0); Hemoglobin 14.8 g/dl (14.0-18.0); Imm Gran Abs Auto 0.01 X10*3/uL (0.00-0.03); Imm Gran Pct Auto 0.2 % (0.0-0.4); Lymphocytes Absolute Auto 0.9 X10*3/uL (1.2-4.9); Lymphocytes Percent Auto 15.4 % (20-40); Mean Corpuscular HGB Conc 34.7 g/dl (31.0-36.0); Mean Corpuscular Hemoglobin 30.2 pg (27.0-33.0); Mean Corpuscular Volume 86.9 fL (80.0-98.0); Mean Platelet Volume 9.6 fL (9.4-12.4); Monocytes Absolute Auto 0.6 X10*3/uL (0.1-1.2); Monocytes Percent Auto 10.5 % (2-11); Neutrophils Absolute Auto 4.4 x10*3/uL (2.0-8.3); Neutrophils Percent Auto 71.4 % (45-73); Platelet Count 285 X10*3/uL (160-400); Red Cell Distribution Width 12.1 % (11.0-16.0); White Blood Count 6.1 X10*3/uL (4.8-10.8)
[2022-01-11 09:00] LABS: Alanine Aminotransferase 52 U/L (0-40); Albumin Level 4.1 g/dL (3.5-5.0); Alkaline Phosphatase 64 U/L (39-117); Anion Gap 18 (12-20); Aspartate Amino Transferase 65 U/L (5-37); Bilirubin Direct 0.5 mg/dL (0.0-0.5); Bilirubin Total 0.9 mg/dL (0.0-1.0); Blood Urea Nitrogen 7 mg/dL (9-16); Calcium 8.8 mg/dL (8.4-10.2); Carbon Dioxide 25 mmol/L (22-29); Chloride 97 mmol/L (96-108); Creatinine Clr Calc Pharmacy 143.7; Estimated Glomerular Filt Rate > 60; Ethanol < 10 mg/dL; Glucose Random 148 mg/dL (60-115); Potassium 3.5 mmol/L (3.3-5.1); Sodium 136 mmol/L (135-145); Total Protein 7.6 g/dL (6.5-8.0)
[2022-01-11 09:03] LABS: COVID-19 Test Negative (Negative); IDNOW Serial# 9DD0AD1C
--- NOTE | 2022-01-11 09:54 | MHC.RECOVRN ---
T/W met w/ pt. Pt sleeping, attempted to wake up to verbal stimuli, pt did not respond. T/W started detox referral process.
--- NOTE | 2022-01-11 10:52 | PC.NURSE ---
pt brought from the main ed, very sleepy, agile coach spoke w him and she has a detox bed for him, pt is currently too sleepy to do an intake, will reevaluate after he has slept some
[2022-01-11 11:26] LABS: Amphetamine Screen Urine Not Detected (Not Detect); Barbiturates, Urine Not Detected (Not Detect); Benzodiazepines Screen Urine Not Detected (Not Detect); Cannabinoid Screen Urine POSITIVE (Not Detect); Cocaine Screen Urine POSITIVE (Not Detect); Fentanyl, urine POSITIVE (Not Detect); Opiate Screen Urine POSITIVE (Not Detect); Phencyclidine Screen Urine Not Detected (Not Detect)
[2022-01-11 15:12] VITALS: BP 145/89; PULSE 70; RESP 16; TEMP 37.3; O2SAT 97
--- NOTE | 2022-01-11 15:29 | MHC.RECOVRN ---
T/W attempted to meet w/ pt. Pt continues to sleep, not waking up to engage w/ this fiction writer. Pt states not interested in [facility] detox. T/W informed pt that referral was sent to [facility], which has beds, but pt would need to be alert to do intake, pt continued to sleep.
--- NOTE | 2022-01-11 15:34 | PC.NURSE ---
This nurse assumed care at 1500. PT resting quietly.
--- NOTE | 2022-01-11 20:30 | MHC.RECOVSUP ---
? Reason for consult:Both o? Current location:[facility]? o? Identified substance use concern:? -? Seeking ATS (detox) -? Support ? Intervention: ? Plan: o? Follow up tomorrow? ? Additional information:RC tried to speak with pt, but pt was sleeping and didn't respond to RC, pt looked at me but went back to sleep.
[2022-01-11 20:31] LABS: Glucose, Whole Blood 79 mg/dL (60-115)
--- NOTE | 2022-01-12 00:34 | PC.NURSE ---
Patient sleeping BS was 93, encouraged him to eat some food, he verbalized understanding. Will continue to monitor.
[2022-01-12 00:37] LABS: Glucose, Whole Blood 93 mg/dL (60-115)
[2022-01-12 00:39] VITALS: BP 161/88; PULSE 70; RESP 16; TEMP 36.7; O2SAT 94
--- NOTE | 2022-01-12 06:13 | PC.NURSE ---
Patient sleeping comfortably. No distress noted. Will continue to monitor.
[2022-01-12 07:01] LABS: Glucose, Whole Blood 97 mg/dL (60-115)
--- NOTE | 2022-01-12 07:25 | PC.NURSE ---
patient appears to remain asleep at present respirations are even and unlaboured patient appears in no distress
[2022-01-12 09:21] VITALS: BP 178/101; PULSE 79; RESP 14; TEMP 36.1; O2SAT 96
[2022-01-12] MEDS: amLODIPine Besylate 10 MG TABLET 5 MG PO (09:50)
--- NOTE | 2022-01-12 11:28 | MHC.RECOVRN ---
T/W met w/ pt, pt was sleepy with few words and limited engagement. T/W gave pt resources to call Detoxes, given list of facilities whom have beds available today, discussed pt starting to make calls and f/u w/ [facility] in the community. T/W offered Narcan, pt states does not need it, did not use Heroin. Care Team aware.
== END 2022-01-12 14:49 | disposition home or self-care (01) ==
PROVIDERS: Emergency Provider Emergency Medicine
DX: F10.10 Alcohol abuse, uncomplicated (principal); Y90.0 Blood alcohol level of less than 20 mg/100 ml; F19.10 Other psychoactive substance abuse, uncomplicated; F11.20 Opioid dependence, uncomplicated; Z20.822 Contact with and (suspected) exposure to COVID-19; F17.210 Nicotine dependence, cigarettes, uncomplicated; E11.9 Type 2 diabetes mellitus without complications; I10 Essential (primary) hypertension; E78.5 Hyperlipidemia, unspecified; F12.90 Cannabis use, unspecified, uncomplicated; Z79.899 Other long term (current) drug therapy; Z79.4 Long term (current) use of insulin
CPT/HCPCS: 36415; 80048; 80076; 80307; 82077; 82947; 85025; 87635; 99284

== ENCOUNTER 2022-01-14 07:29 | Emergency (ER) | payer MEDICAID, SELFPAY ==
[2022-01-14 07:34] VITALS: BP 162/90; PULSE 77; O2SAT 96
[2022-01-14 07:36] VITALS: BP 170/109; PULSE 72; RESP 18; TEMP 36.6; O2SAT 98; BMI 21.7
[2022-01-14 07:46] LABS: Glucose, Whole Blood 103 mg/dL (60-115)
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
--- NOTE | 2022-01-14 08:12 | ECG_ITS ---
Test Reason : WITHDRAWALS Blood Pressure : / mmHG Vent. Rate : 071 BPM Atrial Rate : 071 BPM P-R Int : 190 ms QRS Dur : 156 ms QT Int : 456 ms P-R-T Axes : 030 -06 032 degrees QTc Int : 495 ms Normal sinus rhythm Right bundle branch block Abnormal ECG When compared with ECG of 16-DEC-2021 11:54, No significant change was found Referred By: Gayle Frost Electronically Signed By:JOSE JOE
[2022-01-14 08:40] LABS: MANUAL DIFF FLAG NO
[2022-01-14 08:43] LABS: Venous Blood Gas Refer to POC result
[2022-01-14 08:44] LABS: VBG Base Excess 3.6 mmol/L; VBG HCO3 27 mmol/L (22-26); VBG pCO2 39 mmHg; VBG pH 7.45 (7.32-7.43); VBG pO2 91 mmHg
[2022-01-14 08:44] LABS: Basophils Absolute Auto 0.1 X10*3/uL (0.0-0.2); Basophils Percent Auto 0.7 % (0-2); Eosinophils Absolute Auto 0.2 X10*3/uL (0.0-0.4); Eosinophils Percent Auto 2.2 % (0-4); Hematocrit 41.4 % (42.0-52.0); Hemoglobin 14.4 g/dl (14.0-18.0); Imm Gran Abs Auto 0.02 X10*3/uL (0.00-0.03); Imm Gran Pct Auto 0.3 % (0.0-0.4); Lymphocytes Absolute Auto 1.2 X10*3/uL (1.2-4.9); Lymphocytes Percent Auto 17.5 % (20-40); Mean Corpuscular HGB Conc 34.8 g/dl (31.0-36.0); Mean Corpuscular Hemoglobin 29.9 pg (27.0-33.0); Mean Corpuscular Volume 85.9 fL (80.0-98.0); Mean Platelet Volume 9.5 fL (9.4-12.4); Monocytes Absolute Auto 0.7 X10*3/uL (0.1-1.2); Monocytes Percent Auto 10.4 % (2-11); Neutrophils Absolute Auto 4.7 x10*3/uL (2.0-8.3); Neutrophils Percent Auto 68.9 % (45-73); Platelet Count 283 X10*3/uL (160-400); Red Blood Count 4.82 X10*6/uL (4.60-5.80); Red Cell Distribution Width 12.4 % (11.0-16.0); White Blood Count 6.8 X10*3/uL (4.8-10.8)
[2022-01-14 08:59] LABS: Ammonia 48 umol/L (13-55)
[2022-01-14 09:09] LABS: Acetaminophen LAB < 1 mcg/mL (<30); Alanine Aminotransferase 40 U/L (0-40); Alkaline Phosphatase 51 U/L (39-117); Anion Gap 13 (12-20); Aspartate Amino Transferase 62 U/L (5-37); Bilirubin Total 0.7 mg/dL (0.0-1.0); Blood Urea Nitrogen 7 mg/dL (9-16); Calcium 8.9 mg/dL (8.4-10.2); Carbon Dioxide 29 mmol/L (22-29); Chloride 97 mmol/L (96-108); Creatinine Clr Calc Pharmacy 134.3; Estimated Glomerular Filt Rate > 60; Glucose Random 161 mg/dL (60-115); Magnesium 1.8 mg/dL (1.6-2.6); Potassium 3.6 mmol/L (3.3-5.1); Salicylate < 5.0 mg/dL (15-30); Sodium 135 mmol/L (135-145); Total Protein 7.4 g/dL (6.5-8.0)
[2022-01-14 09:20] LABS: Appearance Urine Clear; Color Urine Yellow; Glucose Urine UA Negative (Negative); Leukocyte Esterase Urine Small (1+) (Negative); Nitrite Urine Negative (Negative); UMIC TRIGGER UACC YES; Urine Blood Negative (Negative); Urine Ketones Negative (Negative); Urine Protein Negative (Neg-Trace)
[2022-01-14 09:22] LABS: Amphetamine Screen Urine Not Detected (Not Detect); Barbiturates, Urine Not Detected (Not Detect); Benzodiazepines Screen Urine Not Detected (Not Detect); Cannabinoid Screen Urine POSITIVE (Not Detect); Cocaine Screen Urine POSITIVE (Not Detect); Fentanyl, urine POSITIVE (Not Detect); Opiate Screen Urine Not Detected (Not Detect); Phencyclidine Screen Urine Not Detected (Not Detect)
[2022-01-14 09:30] LABS: Bacteria Urine 1+ (None Seen); Hyaline Casts Urine 0-2 /LPF (0-2); RBC Urine 0-2 /HPF (0-2); Squamous Epithelial Cell Urine 0-2 /HPF (0-2); UACC Culture Trigger YES
[2022-01-14] MEDS: Buprenorphine/Naloxone 8/2 mg FILM 1 FILM SUBLINGUAL (09:56)
--- NOTE | 2022-01-14 10:45 | MHC.CARE ---
Pt is a 45 y/o, Congolese speaking, single, male who is previously known to the CARE Team through prior assessments, in patient stays, and ED visits.? Today, pt arrived at the ED via ambulance with a complaint of heroin withdrawal and SI.? Pt has been medically cleared and is being assessed by the CARE Team to determine appropriate treatment recommendations. Pt engages in daily opiate use, has been off his medications for approximately 2-3 days, is chronically homeless, has a hx of multiple detox and inpatient admissions, and a hx of not following through with outpatient referrals. Pt was last admitted to [facility] in 12/2021.? Pt reports that prior to this inpatient admission, and approximately 5 months ago, he was inpatient for approximately 3 months at [facility] after a suicide attempt in [place] where he took ?A handful of pills? and was later found by a passerby.? Past documented hx of Major Depressive d/o, Opioid use d/o, Alcohol use d/o, and Stimulant use d/o. Pt is assessed in his room in the Main ED.? He is alert and oriented x4, appears well groomed, and of his stated age.? His eye contact is minimal, often casting his gaze away or closing his eyes.? His speech is within normal limits.? Pt is engaged in the assessment and is help seeking, stating he needs in patient to get back on his medications.? He states that he ?Lost? his medications 2-3 days ago and has been off them since then and has been experiencing AH and SI.? He stated that he is homeless and ?Moves around a lot? and at some point in time the medications were lost.? He reports his mood as Down .? Pt's affect is flat; he denies any VH and is endorsing SI with no plan as of this time.? He reports baseline SI for ?Years?. ?Judgement appears impaired. Pt experiences SI at his baseline which appears to be in the context of his ongoing homelessness and substance use.? Plan is for CARE Team to ask Recovery to speak with pt and explore detox w/ pt.? CARE Team consulted with ED Provider Santosh and requested that he be started on his medications while he is here awaiting a detox bed.
[2022-01-14 11:13] VITALS: BP 157/92; PULSE 64; RESP 12; O2SAT 97
--- NOTE | 2022-01-14 12:02 | PHA.MEDREC ---
Pharmacy Consult ? Medication Reconciliation Pharmacy has completed the medication reconciliation. Pt poor historian, was on the phone with Nanda Corley when I went to bedside, did name some medications. Agreeable to others that are not in recent claim history. Noted he is nonadherent but stated what he should be on. Used claim history and pt claims to do med rec. Did see that suboxone and gabapentin were recent fills.
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
--- NOTE | 2022-01-14 14:27 | MHC.RECOVSUP ---
Recovery Support note: Patient is a 46 year old Burkinan speaking male who presented to [facility] due to substance use and SI. Patient was seen by the CARE Team and referred to this senior underwriter for assistance getting into ATS. Patient completed intake with [facility] however was declined due to statements of SI, HI, AH, thoughts of being and reported inability to ambulate and care for himself. Patient was seen by psychiatry and cleared for discharge. MARCELINA and Fifi report patient is accepted for ATS however he would need to bring all of his medications with him. Patient is insulin dependent diabetic and has numerous psych medications. [facility] report patient filled all of his prescriptions on 01/05 and received 30 day supplies and that they will not be able to fill them again if new prescriptions are sent. [facility] does not accept patient's insurance. [facility] reports no beds at this time and instructed to call again tomorrow. Message left with [employer].
--- NOTE | 2022-01-14 15:26 | MHC.RECOVSUP ---
Recovery Support note: Explained to patient situation regarding ATS/HBATS referrals and his medications. Patient is requesting discharge to his father's house. Lyft and resources provided.
== END 2022-01-14 15:29 | disposition home or self-care (01) ==
PROVIDERS: Physician Assistant Medical; Emergency Provider Emergency Medicine Emergency Medical Services
DX: F11.29 Opioid dependence with unspecified opioid-induced disorder (principal); R45.851 Suicidal ideations; E11.9 Type 2 diabetes mellitus without complications; I10 Essential (primary) hypertension; E78.00 Pure hypercholesterolemia, unspecified; B19.20 Unspecified viral hepatitis C without hepatic coma; F17.210 Nicotine dependence, cigarettes, uncomplicated; F10.20 Alcohol dependence, uncomplicated; Y90.9 Presence of alcohol in blood, level not specified; Z79.4 Long term (current) use of insulin; Z79.899 Other long term (current) drug therapy
CPT/HCPCS: 36415; 80053; 80143; 80179; 80307; 81001; 82140; 82803; 82947; 83735; 85025; 87086; 87088; 87186; 93005; 99284

== ENCOUNTER 2022-02-05 18:43 | Emergency (ER) | payer MEDICAID, SELFPAY | END 2022-02-05 21:06 | disposition left against medical advice (07) | PROVIDERS: Emergency Provider Emergency Medicine | DX: Z71.9 Counseling, unspecified (principal) ==

== ENCOUNTER 2022-02-06 10:20 | Inpatient (IN) | payer MEDICAID, OTHER, SELFPAY ==
[2022-02-06 10:29] VITALS: BP 160/98; BP 174/109; PULSE 81; PULSE 87; RESP 16; TEMP 35.8; O2SAT 96; O2SAT 97; BMI 19.0
--- NOTE | 2022-02-06 10:30 | ED_ITS ---
HPI - Psych General Chief Complaint: Psychiatric Symptoms Stated Complaint: si Time Seen by Provider: 02/06/22 10:22 Source: patient Mode of arrival: EMS Limitations: no limitations History of Present Illness HPI Narrative: Patient is a 46-year-old male who presents to the emergency department via EMS. Patient was reportedly in a parking lot with a knife threatening to kill himself, when he flagged down a bystander asking them to contact 911 for him. Police took the knife from patient. Patient endorsing suicidal ideations. States he has not been taking his medications for the past 2 weeks because he ?lost them?. Reports he has not taken Suboxone in a few days. Endorses alcohol usage as well as heroin and cocaine usage. Reportedly has not used any substances in the last 2 days. Denies fevers, chills, chest pain, shortness of breath, cough, upper respiratory symptoms, nausea, vomiting, abdominal pain, numbness or tingling of the extremities. Related Data Home Medications Medication Instructions Recorded Confirmed aripiprazole 5 mg tablet 1 tab PO DAILY 01/11/22 02/06/22 buprenorphine 8 mg-naloxone 2 mg 1 strip buccal TID 01/11/22 02/06/22 sublingual film bupropion HCl 150 mg 24 hr tablet, 150 mg PO DAILY 01/14/22 02/06/22 extended release bupropion HCl 300 mg 24 hr tablet, 300 mg PO DAILY 01/14/22 02/06/22 extended release trazodone 150 mg tablet 1 tab PO BEDTIME 01/14/22 02/06/22 amlodipine 10 mg tablet 1 tab PO DAILY 02/06/22 02/06/22 Previous Rx's Medication Instructions Recorded blood sugar diagnostic (FreeStyle #100 ea 01/05/22 Lite Strips) docusate sodium 100 mg capsule 100 mg PO BID PRN constipation 30 01/05/22 days #30 caps gabapentin 600 mg tablet 600 mg PO TID 30 days #90 tabs 01/05/22 insulin glargine 100 unit/mL 70 unit (0.7 mL) subcut BEDTIME 30 01/05/22 subcutaneous solution (Lantus days #21 mL U-100 Insulin) insulin lispro 100 unit/mL See Protocol subcut QIDACHS PRN as 01/05/22 subcutaneous solution (Humalog needed per blood sugar 30 days #10 U-100 Insulin) mL insulin syringe-needle U-100 1 mL #100 ea 01/05/22 31 gauge x 5/16 (FreeStyle Precision) metformin 500 mg tablet 500 mg PO BID 30 days #60 tabs 01/05/22 Allergies Allergy/AdvReac Type Severity Reaction Status Date / Time levofloxacin [From Levaquin] Allergy Intermediate rash Verified 11/21/20 20:44 Review of Systems Review of Systems: Constitutional : No Fever, No Chills ENT/Mouth : No Ear Pain, No Nasal Congestion, No sore throat Eyes: No Eye Pain, No Swelling, No Redness Cardiovascular : No Chest Pain, No SOB Respiratory : No Cough, No Sputum, No Dyspnea Gastrointestinal : No Nausea, No Vomiting, No Diarrhea, No Hematochezia, No Melena Genitourinary : No Dysuria, No Urinary Frequency, No Hematuria Musculoskeletal : No Myalgias Skin : No Skin Lesions, No rash Neuro : No Weakness, No Numbness, No Paresthesias, No Dizziness, No Headache Psych : positive Anxiety, positive Depression, positive SI/HI Heme/Lymph: No Lymphadenopathy Endocrine : No Polyuria, No Polydipsia Yes all other systems are reviewed and are negative [facility] Past Medical History Attestation statement: The following information was validated with the patient. Source: old records reviewed Medical History Alcohol use Alcohol use Alcohol use disorder, severe, dependence BPH (benign prostatic hyperplasia) (~10/11/20) Chronic pain Diverticulitis DM II (diabetes mellitus, type II), controlled High cholesterol (~10/11/20) HTN (hypertension) Marijuana use MDD (major depressive disorder), recurrent episode, severe Neuropathy Opiate dependence Opioid use disorder Opioid use disorder Recurrent UTI Stimulant use disorder Tobacco use disorder Urinary hesitancy Social History Social History Household Members: None Household Members Other:: Homeless Housing: Homeless Do you presently have visiting nurse or other home services: No Unable to assess alcohol history related to: Refusing to respond Alcohol intake: never Patient Tobacco Use Status: Current everyday Tobacco user Tobacco use type: Cigarette Cigarette Packs Per Day: 2 Cigarettes Per Day: 40.0 Years Smoked: 36 e-Cigarette/Vaping Use: Currently Using Second Hand Smoke Exposure: No Use of substances other than those prescribed or required for medical reasons: No Substance Use Type: Amphetamines, Crack/Cocaine, Heroin, Marijuana, Methamphetamine and Opiates Advance Directives: No Advance Directives Information Provided: No service: No Current occupational status: unemployed Sexual orientation: Did not discuss Physical Exam Vital Signs: Vital Signs: Last Vital Signs Temp 98.8 F 02/06/22 14:26 Pulse 81 02/06/22 14:26 Resp 16 02/06/22 14:26 BP 161/96 H 02/06/22 14:26 Pulse Ox 97 02/06/22 14:26 O2 Del Method 02/06/22 14:26 BMI result Body Mass Index 19.0 Vital signs have been reviewed as normal and appeared to be correct. Blood pressure normal.? Heart rate normal.? Respiration rate normal. Temperature normal.? Oxygen saturation normal. Appearance: Alert.?Oriented to person, place and time. No acute distress.?Normal affect. Eyes: Pupils equal, round and reactive to light.? ENT: Pharynx normal.?? Neck: Normal inspection.? Neck supple.?? CVS: Heart sounds normal. Normal heart rate and rhythm.? Pulses normal.?? Respiratory: No respiratory distress.? Lung sounds clear to auscultation bilaterally?? Abdomen: Soft and non-tender. Normoactive bowel sounds. Skin: Skin warm and dry.? Normal skin color.? Extremities: No lower extremity edema. 1+ DP/PT pulse bilaterally.? Bilateral feet with macerated tissue around the toes with calluses. No surrounding erythema or warmth. Sensation is intact. Neuro: Moves all extremities spontaneously. Sensation intact bilaterally. CN II- XII intact. No focal neuro deficits. Ambulates with normal steady gait. Course Course Course Narrative: Patient is a 46-year-old male with a past medical history of alcohol use disorder, opiate use disorder, BPH, type 2 diabetes with neuropathy, hypercholesterolemia, hypertension, depression who presents to the emergency department today for evaluation of suicidal ideations. Reportedly has not been on medications for the past 2 weeks as he lost them. Has not taking Suboxone in a few days, endorses heroin, cocaine, alcohol usage 2 days ago but denies any since then. Reporting pain to the bilateral feet, upon examination consistent with trench foot given wet socks and sneakers, at this time does not appear consistent with cellulitis or infectious process. Will obtain basic labs, drug of abuse screen, ethanol level, monitor CIWA, patient will need to be referred to [facility] for evaluation of whether inpatient psychiatric services are required at this time given suicidal ideations with a plan. Reevaluation(s) Reevaluation #1: EKG reveals normal sinus rhythm with right bundle branch block which has been n oted on prior EKG, T-wave inversions are present in the inferior leads which appears new when compared to prior EKG 01/14/2022, patient with reports of no active chest pain, troponin is pending at this time. Time: 11:25 Reevaluation #2: CBC is overall unremarkable. BMP overall unremarkable, mildly elevated BUN suspect this is secondary to mild dehydration, mildly elevated LFTs consistent with prior. Troponin 6.3, at this time have low suspicion for ACS. Reviewed with ED attending Dr. Gordon, no additional intervention at this time. Drug of abuse screen positive for opiates, fentanyl, benzodiazepines, cocaine, marijuana , ethanol level not detectable. Patient continues to report pain to the bilateral feet, patient received acetaminophen p.o., in addition to scheduled gabapentin. Patient is requesting Suboxone, feelings of withdrawal, has not taken in 2 days, denies opiates in the past 24 hours. Patient will be placed in physician operative patient, the reason for physician observation at this time is the patient will require evaluation by [facility] for determination of whether inpatient psychiatric services are required given SI with a plan. Patient is in no apparent distress. Time: 13:28 Reevaluation #3: Patient signed out to night team pending N evlauation. MDM - Psych Medical Records Attestation: I reviewed the patient's medical records. Lab Data Attestation: I reviewed the patient's lab results. Result diagrams: 02/06/22 11:13 02/06/22 11:13 Labs: Lab Results 02/06/22 02/06/22 02/06/22 Range/Units 11:13 11:13 11:13 WBC 7.6 (4.8-10.8) X10*3/uL RBC 4.98 (4.60-5.80) X10*6/uL Hgb 14.9 (14.0-18.0) g/dl Hct 44.1 (42.0-52.0) % MCV 88.6 (80.0-98.0) fL MCH 29.9 (27.0-33.0) pg MCHC 33.8 (31.0-36.0) g/dl RDW 12.7 (11.0-16.0) % Plt Count 350 (160-400) X10*3/uL MPV 9.5 (9.4-12.4) fL Immature Gran % (Auto) 0.3 (0.0-0.4) % Neut % (Auto) 55.2 (45-73) % Lymph % (Auto) 31.0 (20-40) % [place] % (Auto) 11.5 H (2-11) % Eos % (Auto) 1.2 (0-4) % Baso % (Auto) 0.8 (0-2) % Lymph # (Auto) 2.4 (1.2-4.9) X10*3/uL [place] # (Auto) 0.9 (0.1-1.2) X10*3/uL Eos # (Auto) 0.1 (0.0-0.4) X10*3/uL Baso # (Auto) 0.1 (0.0-0.2) X10*3/uL Abs Immat Gran (auto) 0.02 (0.00-0.03) X10*3/uL Absolute Neuts (auto) 4.2 (2.0-8.3) x10*3/uL Absolute Nucleated RBC 0.000 (0.0-0.012) X10*3/uL Nucleated RBC % (auto) 0.0 (0.0-0.2) /100WBC Sodium 142 (135-145) mmol/L Potassium 3.7 (3.3-5.1) mmol/L Chloride 101 (96-108) mmol/L Carbon Dioxide 29 (22-29) mmol/L Anion Gap 16 (12-20) BUN 18 H D (9-16) mg/dL Creatinine 0.90 (0.5-1.4) mg/dL Estim Creat Clear Calc 94.0 Estimated GFR > 60 Random Glucose 108 (60-115) mg/dL Calcium 9.3 (8.4-10.2) mg/dL Magnesium 2.0 (1.6-2.6) mg/dL Total Bilirubin 0.7 (0.0-1.0) mg/dL AST 57 H (5-37) U/L ALT 62 H (0-40) U/L Alkaline Phosphatase 69 D (39-117) U/L Troponin I High Sens 6.3 (<3.5-35.0) ng/L Total Protein 8.1 H (6.5-8.0) g/dL Albumin 4.1 (3.5-5.0) g/dL Urine Color Urine Appearance Urine pH (5.0-9.0) Ur Specific [place] (1.005-1.025) Urine Protein (Neg-Trace) mg/dL Urine Glucose (UA) (Negative) mg/dL Urine Ketones (Negative) mg/dL Urine Blood (Negative) Urine Nitrite (Negative) Ur Leukocyte Esterase (Negative) Urine RBC (0-2) /HPF Urine WBC (0-5) /HPF Ur Squamous Epith Cells (0-2) /HPF Urine Bacteria (None Seen) Hyaline Casts (0-2) /LPF Urine Opiates Screen (Not Detect) Urine Fentanyl Screen (Not Detect) Ur Barbiturates Screen (Not Detect) Ur Phencyclidine Scrn (Not Detect) Ur Amphetamines Screen (Not Detect) U Benzodiazepines Scrn (Not Detect) Urine Cocaine Screen (Not Detect) U Marijuana (THC) Screen (Not Detect) Ethyl Alcohol < 10 mg/dL COVID-19 (DELIO) (Negative) COVID-19 Clin Com 02/06/22 02/06/22 02/06/22 Range/Units 11:13 11:13 11:13 WBC (4.8-10.8) X10*3/uL RBC (4.60-5.80) X10*6/uL Hgb (14.0-18.0) g/dl Hct (42.0-52.0) % MCV (80.0-98.0) fL MCH (27.0-33.0) pg MCHC (31.0-36.0) g/dl RDW (11.0-16.0) % Plt Count (160-400) X10*3/uL MPV (9.4-12.4) fL Immature Gran % (Auto) (0.0-0.4) % Neut % (Auto) (45-73) % Lymph % (Auto) (20-40) % [place] % (Auto) (2-11) % Eos % (Auto) (0-4) % Baso % (Auto) (0-2) % Lymph # (Auto) (1.2-4.9) X10*3/uL [place] # (Auto) (0.1-1.2) X10*3/uL Eos # (Auto) (0.0-0.4) X10*3/uL Baso # (Auto) (0.0-0.2) X10*3/uL Abs Immat Gran (auto) (0.00-0.03) X10*3/uL Absolute Neuts (auto) (2.0-8.3) x10*3/uL Absolute Nucleated RBC (0.0-0.012) X10*3/uL Nucleated RBC % (auto) (0.0-0.2) /100WBC Sodium (135-145) mmol/L Potassium (3.3-5.1) mmol/L Chloride (96-108) mmol/L Carbon Dioxide (22-29) mmol/L Anion Gap (12-20) BUN (9-16) mg/dL Creatinine (0.5-1.4) mg/dL Estim Creat Clear Calc Estimated GFR Random Glucose (60-115) mg/dL Calcium (8.4-10.2) mg/dL Magnesium (1.6-2.6) mg/dL Total Bilirubin (0.0-1.0) mg/dL AST (5-37) U/L ALT (0-40) U/L Alkaline Phosphatase (39-117) U/L Troponin I High Sens (<3.5-35.0) ng/L Total Protein (6.5-8.0) g/dL Albumin (3.5-5.0) g/dL Urine Color Dark Yellow Urine Appearance Cloudy Urine pH 5.0 (5.0-9.0) Ur Specific [place] >= 1.030 H (1.005-1.025) Urine Protein 30 (1+) H (Neg-Trace) mg/dL Urine Glucose (UA) Negative (Negative) mg/dL Urine Ketones Negative (Negative) mg/dL Urine Blood Negative (Negative) Urine Nitrite Negative (Negative) Ur Leukocyte Esterase Small (1+) H (Negative) Urine RBC 0-2 (0-2) /HPF Urine WBC >50 H (0-5) /HPF Ur Squamous Epith Cells 6-10 (0-2) /HPF Urine Bacteria None Seen (None Seen) Hyaline Casts 0-2 (0-2) /LPF Urine Opiates Screen POSITIVE H (Not Detect) Urine Fentanyl Screen POSITIVE H (Not Detect) Ur Barbiturates Screen Not Detected (Not Detect) Ur Phencyclidine Scrn Not Detected (Not Detect) Ur Amphetamines Screen Not Detected (Not Detect) U Benzodiazepines Scrn POSITIVE H (Not Detect) Urine Cocaine Screen POSITIVE H (Not Detect) U Marijuana (THC) Screen POSITIVE H (Not Detect) Ethyl Alcohol mg/dL COVID-19 (DELIO) Negative (Negative) COVID-19 Clin Com See Note ECG Data Attestation: I personally reviewed and interpreted this ECG as follows: ECG interpretation date: 02/06/22 Prior ECG tracings: available for review Interpretation: Rate: 73 Rhythm:? Normal sinus rhythm with right bundle-branch block noted on prior EKG Normal P waves.? Normal EMELYN.?? Normal QRS complex.?? ST T wave :??No ST depression, no ST elevation, T-wave inversion in the inferior leads which appears new when compared to prior. qTC: 489 prior studies:? January 2022 The study has been interpreted contemporaneously by me. Discharge Plan Discharge Clinical Impression: Suicidal ideation, Polysubstance use disorder Prescriptions: No Action insulin glargine [Lantus U-100 Insulin] 100 unit/mL Solution 70 unit subcut BEDTIME 30 Days Qty: 21 0RF Rx Instructions: quantity 7 (DME) FreeStyle Lite Strips Strip See Rx Instructions .Route Qty: 100 1RF Rx Instructions: As directed (DME) insulin syringe-needle U-100 [FreeStyle Precision] 1 mL 31 gauge x 5/16 syringe See Rx Instructions .Route Qty: 100 0RF Rx Instructions: As directed insulin lispro [Humalog U-100 Insulin] 100 unit/mL Solution See Protocol subcut QIDACHS PRN (Reason: as needed per blood sugar) 30 Days Qty: 10 0RF Protocol: Insulin Correction Scale Less than or equal to 110 ---- Give (units): 0 111 to 150 Give (units): 0 151 to 200 Give (units): 2 201 to 250 Give (units): 4 251 to 300 Give (units): 6 301 to 350 Give (units): 8 Greater than 350 Give (units): 10 Call MD if Blood Glucose > : 350 Rx Instructions: Less than or equal to 110 ---- Give (units): 0 111 to 150 Give (units): 0 151 to 200 Give (units): 2 201 to 250 Give (units): 4 251 to 300 Give (units): 6 301 to 350 Give (units): 8 Greater than 350 Give (units): 10 Call your PCP if Blood Glucose is at or over:350 docusate sodium 100 mg Capsule 100 mg PO BID PRN (Reason: constipation) 30 Days Qty: 30 0RF gabapentin 600 mg tablet 600 mg PO TID 30 Days Qty: 90 0RF metformin 500 mg tablet 500 mg PO BID 30 Days Qty: 60 0RF buprenorphine-naloxone 8-2 mg film 1 strip buccal TID aripiprazole 5 mg tablet 1 tab PO DAILY trazodone 150 mg tablet 1 tab PO BEDTIME bupropion HCl 300 mg tablet extended release 24 hr 300 mg PO DAILY Rx Instructions: take with 150mg tab bupropion HCl 150 mg tablet extended release 24 hr 150 mg PO DAILY Rx Instructions: take with 300mg tab amlodipine 10 mg tablet 1 tab PO DAILY
--- NOTE | 2022-02-06 10:45 | ECG_ITS ---
Test Reason : CHECK QT Blood Pressure : / mmHG Vent. Rate : 073 BPM Atrial Rate : 073 BPM P-R Int : 170 ms QRS Dur : 154 ms QT Int : 444 ms P-R-T Axes : 029 -13 -05 degrees QTc Int : 489 ms Normal sinus rhythm Right bundle branch block T-wave inversion in Inferior leads Abnormal ECG When compared with ECG of 14-JAN-2022 08:23, Inverted T waves have replaced nonspecific T wave abnormality in Inferior leads Referred By: Holly Souza Electronically Signed By:PRECIOUS BLACK MD
[2022-02-06 11:22] LABS: MANUAL DIFF FLAG NO
[2022-02-06 11:23] LABS: Basophils Absolute Auto 0.1 X10*3/uL (0.0-0.2); Basophils Percent Auto 0.8 % (0-2); Eosinophils Absolute Auto 0.1 X10*3/uL (0.0-0.4); Eosinophils Percent Auto 1.2 % (0-4); Hematocrit 44.1 % (42.0-52.0); Hemoglobin 14.9 g/dl (14.0-18.0); Imm Gran Abs Auto 0.02 X10*3/uL (0.00-0.03); Imm Gran Pct Auto 0.3 % (0.0-0.4); Lymphocytes Absolute Auto 2.4 X10*3/uL (1.2-4.9); Mean Corpuscular HGB Conc 33.8 g/dl (31.0-36.0); Mean Corpuscular Hemoglobin 29.9 pg (27.0-33.0); Mean Corpuscular Volume 88.6 fL (80.0-98.0); Mean Platelet Volume 9.5 fL (9.4-12.4); Monocytes Absolute Auto 0.9 X10*3/uL (0.1-1.2); Monocytes Percent Auto 11.5 % (2-11); Neutrophils Absolute Auto 4.2 x10*3/uL (2.0-8.3); Neutrophils Percent Auto 55.2 % (45-73); Platelet Count 350 X10*3/uL (160-400); Red Blood Count 4.98 X10*6/uL (4.60-5.80); Red Cell Distribution Width 12.7 % (11.0-16.0); White Blood Count 7.6 X10*3/uL (4.8-10.8)
[2022-02-06 11:26] LABS: Appearance Urine Cloudy; Color Urine Dark Yellow; Glucose Urine UA Negative (Negative); Leukocyte Esterase Urine Small (1+) (Negative); Nitrite Urine Negative (Negative); Specific Gravity - Urine >= 1.030 (1.005-1.025); UMIC TRIGGER UACC YES; Urine Blood Negative (Negative); Urine Ketones Negative (Negative); Urine Protein 30 (1+) mg/dL (Neg-Trace)
[2022-02-06 11:30] VITALS: BP 161/98; PULSE 76; RESP 18; O2SAT 98
[2022-02-06 11:32] LABS: Bacteria Urine None Seen (None Seen); Hyaline Casts Urine 0-2 /LPF (0-2); RBC Urine 0-2 /HPF (0-2); UACC Culture Trigger YES; WBC Urine >50 /HPF (0-5)
[2022-02-06 11:38] LABS: COVID-19 Test Negative (Negative); IDNOW Serial# 16C4AD1C
[2022-02-06 11:39] LABS: Amphetamine Screen Urine Not Detected (Not Detect); Barbiturates, Urine Not Detected (Not Detect); Benzodiazepines Screen Urine POSITIVE (Not Detect); Cannabinoid Screen Urine POSITIVE (Not Detect); Cocaine Screen Urine POSITIVE (Not Detect); Fentanyl, urine POSITIVE (Not Detect); Opiate Screen Urine POSITIVE (Not Detect); Phencyclidine Screen Urine Not Detected (Not Detect)
[2022-02-06 11:41] LABS: Alanine Aminotransferase 62 U/L (0-40); Albumin Level 4.1 g/dL (3.5-5.0); Alkaline Phosphatase 69 U/L (39-117); Anion Gap 16 (12-20); Aspartate Amino Transferase 57 U/L (5-37); Bilirubin Total 0.7 mg/dL (0.0-1.0); Blood Urea Nitrogen 18 mg/dL (9-16); Calcium 9.3 mg/dL (8.4-10.2); Carbon Dioxide 29 mmol/L (22-29); Chloride 101 mmol/L (96-108); Estimated Glomerular Filt Rate > 60; Ethanol < 10 mg/dL; Glucose Random 108 mg/dL (60-115); Potassium 3.7 mmol/L (3.3-5.1); Sodium 142 mmol/L (135-145); Total Protein 8.1 g/dL (6.5-8.0)
[2022-02-06 11:45] LABS: Troponin-I High Sensitivity 6.3 ng/L (<3.5-35.0)
[2022-02-06] MEDS: Acetaminophen 325 MG TABLET 650 MG PO (13:06)
[2022-02-06] MEDS: Gabapentin 600 MG TABLET PO (13:06)
--- NOTE | 2022-02-06 13:52 | PHA.MEDREC ---
Pharmacy Consult ? Medication Reconciliation Pharmacy has completed the medication reconciliation. Patient is poor historian. Patient has not had medication in 2 weeks. No medications have been filled since November except suboxone has been filled in january 2022. Patient rambled off names no longer being filled. Utilize his list as well as claim history to determine medication patient is suppose to be on. Julisa Beltran, PharmD
[2022-02-06 14:26] VITALS: BP 161/96; PULSE 81; RESP 16; TEMP 37.1; O2SAT 97
[2022-02-06] MEDS: Buprenorphine/Naloxone 8/2 mg FILM 1 FILM SUBLINGUAL (14:59)
[2022-02-06 18:00] VITALS: BP 143/86; PULSE 70; RESP 16; TEMP 36.7; O2SAT 98
--- NOTE | 2022-02-06 18:50 | PC.NURSE ---
1800 ROUNDING DONE ,VS TAKEN PT ASK FOR GEN MADHU ,PITCHER WITH GEN MADHU AND ICE GIVEN TO PT .
--- NOTE | 2022-02-06 20:32 | PC.NURSE ---
2000 rounding done ,pt is asleep 1:1 sitter at bedside .
--- NOTE | 2022-02-06 20:54 | PC.NURSE ---
pt lactic acid blood draw done and sent to lab .
[2022-02-06 22:00] VITALS: BP 150/94; PULSE 58; RESP 16; TEMP 36.3; O2SAT 98
--- NOTE | 2022-02-06 22:11 | PC.NURSE ---
Pt sleeping at this time. Breaths are even and unlabored with equal chest rises. No apparent distress noted. 1:1 sitter at bedside. Will continue to monitor.
--- NOTE | 2022-02-06 22:11 | PC.NURSE ---
2200 rounding done vs taken pt is having ice cream ,1:1 sitter at bedside .
--- NOTE | 2022-02-06 22:21 | PC.NURSE ---
Smart sheet completed
--- NOTE | 2022-02-07 00:10 | PC.NURSE ---
0000 rounding made pt is asleep .
--- NOTE | 2022-02-07 00:43 | PC.NURSE ---
Pt sleeping at this time in no apparent distress. Breaths are even and unlabored with equal chest rises. Will continue to monitor.
--- NOTE | 2022-02-07 02:21 | PC.NURSE ---
0200 ROUNDING DONE PT IS ALSLEEP .
[2022-02-07 06:00] VITALS: RESP 14
--- NOTE | 2022-02-07 07:08 | MHC.CARE ---
Smart sheet submitted
--- NOTE | 2022-02-07 17:24 | PC.NURSE ---
Pt is asleep at this time. Breaths are even and unlabored with equal chest rises. No apparent distress noted. Will continue to monitor.
--- NOTE | 2022-02-07 22:27 | PC.NURSE ---
Pt sleeping in no apparent distress. Breaths are even and unlabored with equal chest rises. Will continue to monitor.
--- NOTE | 2022-02-08 06:17 | PC.NURSE ---
Pt slept thorughout the night with no events. Breaths even and unlabored with equal chest rises. No apparent distress noted. Pt continues with 1:1 sitter at bedside.
[2022-02-08 07:32] VITALS: BP 193/115; PULSE 56; RESP 18; TEMP 37.7; O2SAT 96
[2022-02-08] MEDS: metFORMIN HCl 500 MG TABLET PO ×2 (09:09→19:53)
[2022-02-08] MEDS: buPROPion HCl XL 150 MG TAB.ER.24H PO (09:09)
[2022-02-08] MEDS: buPROPion HCl XL 300 MG TAB.ER.24H PO (09:09)
[2022-02-08] MEDS: Gabapentin 600 MG TABLET PO ×3 (09:09→19:53)
[2022-02-08] MEDS: ARIPiprazole 5 MG TABLET PO (09:09)
[2022-02-08] MEDS: amLODIPine Besylate 10 MG TABLET PO (09:09)
[2022-02-08] MEDS: Buprenorphine/Naloxone 8/2 mg FILM 1 FILM BUCCAL ×3 (09:10→19:53)
--- NOTE | 2022-02-08 10:03 | PC.NURSE ---
PT calm and cooperative, reports SI with no plan. Denies HI. Meds given as documented. Meal provided, resting quietly, no apparent distress. Sitter at bedside. Will continue to observe.
[2022-02-08 13:05] VITALS: BP 160/98; PULSE 75; RESP 18; TEMP 37.6; O2SAT 94
[2022-02-08 13:49] LABS: Glucose, Whole Blood 148 mg/dL (60-115)
--- NOTE | 2022-02-08 16:56 | PC.NURSE ---
RN-RN report given to M5.
--- NOTE | 2022-02-08 18:24 | PC.ADMIT ---
Pt is a 46 year old male who is previously known to [facility] from [facility] [place] [facility] at approximately 1745 on a cv status. Pt is covid - Utox + for opiates, fetanyl, Benzo, cocaine, THC. Per chart review, pt reported poor sleep and appetite due to feelings of paranoia and homelessness. Reports recent weight loss. He reports feeling down due to feeling depressed. he reports SI with plan to jump in front of car or jump off building. He reports current auditory command hallucinations to kill himself. He also reports he hears voices that say your worth nothing and no one loves you Pt denies current HI. He denies current VH. judgment and impulsiveness appear poor. Pt struggles with homelessness and poly substance use. During admit, pt reported that he was homeless. Pt reported he drink alcohol daily and uses various drug daily such as THC, cocaine, opiates and benzos. Pt reported that he had a knife on him and considered using it on himself but did not expound on how. Pt refused flu shot. Pt denied sx of withdraw. Pt reported that he has been picking at his hands due to itchiness and patients has peeling skin and minor cuts on both hands and feet. Provider called for orders and notified of admission. Pt is on 15 min safety checks. Start treatment plan and monitor for safety.
[2022-02-08] MEDS: Insulin Glargine,Hum.rec.anlog 100 UNIT/ML 10 ML VIAL 70 UNIT SUBCUT (19:52)
[2022-02-08] MEDS: traZODone HCL 50 MG TABLET 150 MG PO (19:53)
[2022-02-09 08:00] VITALS: BP 173/106; PULSE 92; RESP 18; TEMP 36.6; O2SAT 98
[2022-02-09 09:31] LABS: Estimated Average Glucose 117 mg/dL; Hemoglobin A1c % 5.7 %
[2022-02-09 09:35] LABS: Alanine Aminotransferase 48 U/L (0-40); Albumin Level 3.5 g/dL (3.5-5.0); Alkaline Phosphatase 76 U/L (39-117); Anion Gap 13 (12-20); Aspartate Amino Transferase 40 U/L (5-37); Bilirubin Total < 0.2 mg/dL (0.0-1.0); Blood Urea Nitrogen 9 mg/dL (9-16); Calcium 8.7 mg/dL (8.4-10.2); Carbon Dioxide 28 mmol/L (22-29); Chloride 104 mmol/L (96-108); Cholesterol 138 mg/dL; Creatinine Clr Calc Pharmacy 120.9; Estimated Glomerular Filt Rate > 60; Glucose Fasting 69 mg/dL (60-99); HDL Cholesterol 33 mg/dL; LDL Cholesterol Calculated 72 mg/dl; Potassium 3.9 mmol/L (3.3-5.1); Sodium 141 mmol/L (135-145); Total Protein 7.2 g/dL (6.5-8.0); Triglycerides 169 mg/dL
[2022-02-09 09:56] LABS: Thyroid Stimulating Hormone 0.85 uIU/mL (0.32-4.0)
[2022-02-09] MEDS: Gabapentin 600 MG TABLET PO ×3 (10:01→20:02)
[2022-02-09] MEDS: buPROPion HCl XL 150 MG TAB.ER.24H PO (10:01)
[2022-02-09] MEDS: buPROPion HCl XL 300 MG TAB.ER.24H PO (10:02)
[2022-02-09] MEDS: ARIPiprazole 5 MG TABLET PO (10:02)
[2022-02-09] MEDS: Buprenorphine/Naloxone 8/2 mg FILM 1 FILM BUCCAL ×3 (10:02→20:02)
[2022-02-09] MEDS: metFORMIN HCl 500 MG TABLET PO ×2 (10:03→20:02)
[2022-02-09] MEDS: amLODIPine Besylate 10 MG TABLET PO (10:03)
[2022-02-09 10:35] LABS: Vitamin B12 425 pg/mL (200-900)
[2022-02-09] MEDS: Nicotine Polacrilex 2 MG GUM BUCCAL (11:19)
[2022-02-09] MEDS: Nicotine 21 MG PATCH.TD24 TRANSDERMA (11:19)
[2022-02-09 11:39] LABS: Glucose, Whole Blood 137 mg/dL (60-115)
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
[2022-02-09 14:55] VITALS: BP 169/108
[2022-02-09 16:25] LABS: Glucose, Whole Blood 175 mg/dL (60-115)
[2022-02-09] MEDS: Insulin Lispro 100 UNIT/ML 3 ML VIAL SUBCUT (16:51)
[2022-02-09 19:18] VITALS: BP 146/103; PULSE 98; RESP 16; TEMP 36.2; O2SAT 97
[2022-02-09] MEDS: traZODone HCL 50 MG TABLET 150 MG PO (20:02)
[2022-02-09] MEDS: Insulin Glargine,Hum.rec.anlog 100 UNIT/ML 10 ML VIAL 70 UNIT SUBCUT (20:02)
--- NOTE | 2022-02-09 22:40 | PC.NURSE ---
pt did not take insulin. pt said he didn't want it and stop bothering me.
[2022-02-10] MEDS: Omeprazole 20 MG CAPSULE.DR PO (05:13)
[2022-02-10 05:18] LABS: Glucose, Whole Blood 108 mg/dL (60-115)
[2022-02-10 08:08] LABS: Glucose, Whole Blood 155 mg/dL (60-115)
[2022-02-10] MEDS: Tamsulosin HCL 0.4 MG CAPSULE PO (08:26)
[2022-02-10] MEDS: buPROPion HCl XL 300 MG TAB.ER.24H PO (08:26)
[2022-02-10] MEDS: metFORMIN HCl 500 MG TABLET PO (08:26)
[2022-02-10] MEDS: Gabapentin 600 MG TABLET PO (08:26)
[2022-02-10] MEDS: buPROPion HCl XL 150 MG TAB.ER.24H PO (08:26)
[2022-02-10] MEDS: amLODIPine Besylate 10 MG TABLET PO (08:27)
[2022-02-10] MEDS: ARIPiprazole 5 MG TABLET PO (08:27)
[2022-02-10] MEDS: Insulin Lispro 100 UNIT/ML 3 ML VIAL SUBCUT (08:27)
[2022-02-10] MEDS: Nicotine 21 MG PATCH.TD24 TRANSDERMA (08:27)
[2022-02-10] MEDS: Buprenorphine/Naloxone 8/2 mg FILM 1 FILM BUCCAL (08:28)
[2022-02-10] MEDS: Finasteride 5 MG TABLET PO (08:28)
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
[2022-02-10] MEDS: Naloxone HCl Nasal TAKE HOME 4 MG SPRAY NOSTRILALT (09:36)
[2022-02-10 09:47] VITALS: BP 134/72; PULSE 76; RESP 16; TEMP 37; O2SAT 95
--- NOTE | 2022-02-10 10:40 | PC.NURSE ---
Sukhwinder signed a 3-day notice on 02/09 with Doctor present, signed 02/09 and up on Monday 02/12
[2022-02-10 12:42] LABS: Glucose, Whole Blood 118 mg/dL (60-115)
== END 2022-02-10 13:10 | disposition home or self-care (01) | DRG 755 ==
LOC: HO.ED 02-08 15:02 → HO.PM5 02-08 17:00
PROVIDERS: Nurse Practitioner Family; Admitting Provider Social Worker; Emergency Provider Emergency Medicine; Visit Provider Psychiatry & Neurology Psychiatry
DX: F43.25 Adjustment disorder with mixed disturbance of emotions and conduct (principal); R45.851 Suicidal ideations; F11.20 Opioid dependence, uncomplicated; E11.9 Type 2 diabetes mellitus without complications; F17.210 Nicotine dependence, cigarettes, uncomplicated; Z20.822 Contact with and (suspected) exposure to COVID-19; Z71.6 Tobacco abuse counseling; Z76.5 Malingerer [conscious simulation]; Z88.1 Allergy status to other antibiotic agents; Z79.4 Long term (current) use of insulin; Z79.84 Long term (current) use of oral hypoglycemic drugs; Z79.899 Other long term (current) drug therapy
CPT/HCPCS: 36415; 80053; 80061; 80307; 81001; 82077; 82607; 82947; 83036; 83735; 84443; 84484; 85025; 87086; 87088; 87186; 87635; 93005; 99285

== ENCOUNTER → 2022-02-10 13:14 | Outpatient (BNVA) | payer MEDICAID, SELFPAY | PROVIDERS: Visit Provider Nurse Practitioner Psychiatric/Mental Health | DX: F11.20 Opioid dependence, uncomplicated (principal) | CPT/HCPCS: 99212 ==

== ENCOUNTER → 2022-02-17 13:53 | Outpatient (BNVA) | payer MEDICAID, SELFPAY | PROVIDERS: Visit Provider Nurse Practitioner Psychiatric/Mental Health | DX: Z51.81 Encounter for therapeutic drug level monitoring (principal); F11.20 Opioid dependence, uncomplicated | CPT/HCPCS: 80305; 99212 ==

== ENCOUNTER → 2022-02-25 10:31 | Outpatient (BNVA) | payer MEDICAID, SELFPAY | PROVIDERS: Visit Provider Nurse Practitioner Psychiatric/Mental Health | DX: Z51.81 Encounter for therapeutic drug level monitoring (principal); F11.20 Opioid dependence, uncomplicated | CPT/HCPCS: 99212 ==

== ENCOUNTER → 2022-03-03 11:46 | Outpatient (BNVA) | payer MEDICAID, SELFPAY | PROVIDERS: Visit Provider Nurse Practitioner Psychiatric/Mental Health | DX: Z51.81 Encounter for therapeutic drug level monitoring (principal); F11.20 Opioid dependence, uncomplicated | CPT/HCPCS: 99212 ==

== ENCOUNTER 2022-03-04 01:07 | Inpatient (IN) | payer OTHER, MEDICAID, SELFPAY ==
[2022-03-04 01:20] VITALS: PULSE 75; RESP 18; TEMP 36.6; O2SAT 96; BMI 21.0
--- NOTE | 2022-03-04 01:38 | ED_ITS ---
HPI - Psych General Chief Complaint: Upper Respiratory Symptoms Stated Complaint: Crisis Time Seen by Provider: 03/04/22 01:38 Source: patient Mode of arrival: ambulatory Limitations: no limitations History of Present Illness HPI Narrative: Patient homeless with history of substance abuse alcohol abuse homeless feel increasingly depressed feel suicidal no specific plans been to [facility] multiple times for similar reasons, patient also feeling cold symptoms with cough for last few days no fever no chills no shortness of breath no cough chest pain Related Data Home Medications Medication Instructions Recorded Confirmed buprenorphine 8 mg-naloxone 2 mg 1 strip sublingual TID 03/04/22 03/04/22 sublingual film (Suboxone) Allergies Allergy/AdvReac Type Severity Reaction Status Date / Time levofloxacin [From Levaquin] Allergy Intermediate rash Verified 02/10/22 13:30 Review of Systems Review of Systems: Yes all other systems are reviewed and are negative PMFSH Past Medical History Medical History Alcohol use Alcohol use Alcohol use disorder, severe, dependence BPH (benign prostatic hyperplasia) (~10/11/20) Chronic pain Diverticulitis DM II (diabetes mellitus, type II), controlled High cholesterol (~10/11/20) HTN (hypertension) Marijuana use MDD (major depressive disorder), recurrent episode, severe Neuropathy Opiate dependence Opioid use disorder Opioid use disorder Recurrent UTI Stimulant use disorder Tobacco use disorder Urinary hesitancy Social History Social History Household Members: None Household Members Other:: Homeless Housing: Homeless Do you presently have visiting nurse or other home services: No Unable to assess alcohol history related to: Refusing to respond Alcohol intake: never Patient Tobacco Use Status: Current everyday Tobacco user Tobacco use type: Cigarette Cigarette Packs Per Day: 2 Cigarettes Per Day: 40.0 Years Smoked: 20+ e-Cigarette/Vaping Use: Currently Using Second Hand Smoke Exposure: Yes Substance Use Type: Crack/Cocaine, Marijuana and Opiates Advance Directives: No Advance Directives Information Provided: Yes service: No Current occupational status: unemployed Sexual orientation: Straight/Heterosexual Physical Exam Vital Signs: Vital Signs: Last Vital Signs Temp 98 F 03/04/22 01:20 Pulse 75 03/04/22 01:20 Resp 18 03/04/22 01:20 BP 169/93 H 03/04/22 01:43 Pulse Ox 96 03/04/22 01:20 O2 Del Method 03/04/22 01:20 BMI result Body Mass Index 21.0 Appearance: Alert. Oriented X3. No acute distress. Eyes: PERRLA, No Nystagmus ENT: Pharynx normal. Oral Mucosa moist Neck: Normal inspection. Neck supple. CVS: Normal heart rate and rhythm. Pulses normal. Respiratory: No respiratory distress. Equal air entry bilateral, no wheezing/rales/rhonchi Abdomen: Soft and nontender. Bowel sounds are present, no mass palpable, no CVA tenderness Skin: Skin warm and dry. Normal skin color. Normal skin turgor. Extremities: No lower extremity edema. No calf tenderness Neuro: Oriented X 3. No motor deficit. No sensory deficit.No cerebellar signs , cranial nerves II-XII intact Medications Administered Discontinued Medications Generic Name Dose Route Start Last Admin Trade Name Freq PRN Reason Stop Dose Admin Lorazepam 2 mg 03/04/22 03:01 03/04/22 03:29 Lorazepam 1 Mg Tablet PO 03/04/22 03:02 2 mg ONCE ONE Administration MDM - Psych MDM Narrative Medical decision making narrative: Patient is post substance abuse homeless comes here for increased depression with suicidal feeling with no plans to get crisis consult Differential Diagnosis Differential diagnosis: Likely suicidal ideation and depression Lab Data Attestation: I reviewed the patient's lab results. Result diagrams: 03/04/22 01:49 03/04/22 01:49 Labs: Lab Results 03/04/22 03/04/22 03/04/22 Range/Units 01:29 01:49 01:49 WBC 6.2 (4.8-10.8) X10*3/uL RBC 4.73 (4.60-5.80) X10*6/uL Hgb 14.0 (14.0-18.0) g/dl Hct 41.2 L (42.0-52.0) % MCV 87.1 (80.0-98.0) fL MCH 29.6 (27.0-33.0) pg MCHC 34.0 (31.0-36.0) g/dl RDW 12.7 (11.0-16.0) % Plt Count 297 (160-400) X10*3/uL MPV 9.8 (9.4-12.4) fL Immature Gran % (Auto) 0.2 (0.0-0.4) % Neut % (Auto) 55.9 (45-73) % Lymph % (Auto) 33.1 (20-40) % [place] % (Auto) 8.1 (2-11) % Eos % (Auto) 2.1 (0-4) % Baso % (Auto) 0.6 (0-2) % Lymph # (Auto) 2.1 (1.2-4.9) X10*3/uL [place] # (Auto) 0.5 (0.1-1.2) X10*3/uL Eos # (Auto) 0.1 (0.0-0.4) X10*3/uL Baso # (Auto) 0.0 (0.0-0.2) X10*3/uL Abs Immat Gran (auto) 0.01 (0.00-0.03) X10*3/uL Absolute Neuts (auto) 3.5 (2.0-8.3) x10*3/uL Absolute Nucleated RBC 0.000 (0.0-0.012) X10*3/uL Nucleated RBC % (auto) 0.0 (0.0-0.2) /100WBC Sodium 139 (135-145) mmol/L Potassium 3.3 (3.3-5.1) mmol/L Chloride 101 (96-108) mmol/L Carbon Dioxide 27 (22-29) mmol/L Anion Gap 14 (12-20) BUN 15 (9-16) mg/dL Creatinine 0.73 (0.5-1.4) mg/dL Estim Creat Clear Calc 128.5 Estimated GFR > 60 POC Glucose (60-115) mg/dL Random Glucose 122 H (60-115) mg/dL Calcium 8.9 (8.4-10.2) mg/dL Total Bilirubin 0.8 (0.0-1.0) mg/dL AST 55 H (5-37) U/L ALT 46 H (0-40) U/L Alkaline Phosphatase 46 (39-117) U/L Total Protein 7.5 (6.5-8.0) g/dL Albumin 3.9 (3.5-5.0) g/dL Urine Opiates Screen (Not Detect) Urine Fentanyl Screen (Not Detect) Ur Barbiturates Screen (Not Detect) Ur Phencyclidine Scrn (Not Detect) Ur Amphetamines Screen (Not Detect) U Benzodiazepines Scrn (Not Detect) Urine Cocaine Screen (Not Detect) U Marijuana (THC) Screen (Not Detect) Ethyl Alcohol < 10 mg/dL Influenza Type A (PCR) NEGATIVE (Negative) Influenza Type B (PCR) NEGATIVE (Negative) RSV RNA Qual (PCR) NEGATIVE (Negative) SARS-CoV-2 RNA (RT-PCR) NEGATIVE (Negative) 03/04/22 03/04/22 Range/Units 01:52 02:20 WBC (4.8-10.8) X10*3/uL RBC (4.60-5.80) X10*6/uL Hgb (14.0-18.0) g/dl Hct (42.0-52.0) % MCV (80.0-98.0) fL MCH (27.0-33.0) pg MCHC (31.0-36.0) g/dl RDW (11.0-16.0) % Plt Count (160-400) X10*3/uL MPV (9.4-12.4) fL Immature Gran % (Auto) (0.0-0.4) % Neut % (Auto) (45-73) % Lymph % (Auto) (20-40) % [place] % (Auto) (2-11) % Eos % (Auto) (0-4) % Baso % (Auto) (0-2) % Lymph # (Auto) (1.2-4.9) X10*3/uL [place] # (Auto) (0.1-1.2) X10*3/uL Eos # (Auto) (0.0-0.4) X10*3/uL Baso # (Auto) (0.0-0.2) X10*3/uL Abs Immat Gran (auto) (0.00-0.03) X10*3/uL Absolute Neuts (auto) (2.0-8.3) x10*3/uL Absolute Nucleated RBC (0.0-0.012) X10*3/uL Nucleated RBC % (auto) (0.0-0.2) /100WBC Sodium (135-145) mmol/L Potassium (3.3-5.1) mmol/L Chloride (96-108) mmol/L Carbon Dioxide (22-29) mmol/L Anion Gap (12-20) BUN (9-16) mg/dL Creatinine (0.5-1.4) mg/dL Estim Creat Clear Calc Estimated GFR POC Glucose 144 H (60-115) mg/dL Random Glucose (60-115) mg/dL Calcium (8.4-10.2) mg/dL Total Bilirubin (0.0-1.0) mg/dL AST (5-37) U/L ALT (0-40) U/L Alkaline Phosphatase (39-117) U/L Total Protein (6.5-8.0) g/dL Albumin (3.5-5.0) g/dL Urine Opiates Screen Not Detected (Not Detect) Urine Fentanyl Screen POSITIVE H (Not Detect) Ur Barbiturates Screen Not Detected (Not Detect) Ur Phencyclidine Scrn Not Detected (Not Detect) Ur Amphetamines Screen Not Detected (Not Detect) U Benzodiazepines Scrn POSITIVE H (Not Detect) Urine Cocaine Screen POSITIVE H (Not Detect) U Marijuana (THC) Screen POSITIVE H (Not Detect) Ethyl Alcohol mg/dL Influenza Type A (PCR) (Negative) Influenza Type B (PCR) (Negative) RSV RNA Qual (PCR) (Negative) SARS-CoV-2 RNA (RT-PCR) (Negative) Discharge Plan Discharge Clinical Impression: Polysubstance abuse, Depression, Feeling suicidal Patient Disposition: Still a Patient Prescriptions: No Action buprenorphine-naloxone [Suboxone] 8-2 mg film 1 strip sublingual TID
[2022-03-04 01:43] VITALS: BP 169/93
[2022-03-04 01:54] LABS: MANUAL DIFF FLAG NO
[2022-03-04 01:55] LABS: Glucose, Whole Blood 144 mg/dL (60-115)
[2022-03-04 01:56] LABS: Basophils Percent Auto 0.6 % (0-2); Eosinophils Absolute Auto 0.1 X10*3/uL (0.0-0.4); Eosinophils Percent Auto 2.1 % (0-4); Hematocrit 41.2 % (42.0-52.0); Imm Gran Abs Auto 0.01 X10*3/uL (0.00-0.03); Imm Gran Pct Auto 0.2 % (0.0-0.4); Lymphocytes Absolute Auto 2.1 X10*3/uL (1.2-4.9); Lymphocytes Percent Auto 33.1 % (20-40); Mean Corpuscular Hemoglobin 29.6 pg (27.0-33.0); Mean Corpuscular Volume 87.1 fL (80.0-98.0); Mean Platelet Volume 9.8 fL (9.4-12.4); Monocytes Absolute Auto 0.5 X10*3/uL (0.1-1.2); Monocytes Percent Auto 8.1 % (2-11); Neutrophils Absolute Auto 3.5 x10*3/uL (2.0-8.3); Neutrophils Percent Auto 55.9 % (45-73); Platelet Count 297 X10*3/uL (160-400); Red Blood Count 4.73 X10*6/uL (4.60-5.80); Red Cell Distribution Width 12.7 % (11.0-16.0); White Blood Count 6.2 X10*3/uL (4.8-10.8)
[2022-03-04 02:12] LABS: Influenza A PCR NEGATIVE (Negative); Influenza B PCR NEGATIVE (Negative); Resp Syncy Virus RNA Qual PCR NEGATIVE (Negative); SARS COV2 PCR INHOUSE NEGATIVE (Negative)
[2022-03-04 02:15] LABS: Alanine Aminotransferase 46 U/L (0-40); Albumin Level 3.9 g/dL (3.5-5.0); Alkaline Phosphatase 46 U/L (39-117); Anion Gap 14 (12-20); Aspartate Amino Transferase 55 U/L (5-37); Bilirubin Total 0.8 mg/dL (0.0-1.0); Blood Urea Nitrogen 15 mg/dL (9-16); Calcium 8.9 mg/dL (8.4-10.2); Carbon Dioxide 27 mmol/L (22-29); Chloride 101 mmol/L (96-108); Creatinine Clr Calc Pharmacy 128.5; Estimated Glomerular Filt Rate > 60; Ethanol < 10 mg/dL; Glucose Random 122 mg/dL (60-115); Potassium 3.3 mmol/L (3.3-5.1); Sodium 139 mmol/L (135-145); Total Protein 7.5 g/dL (6.5-8.0)
[2022-03-04 02:37] LABS: Amphetamine Screen Urine Not Detected (Not Detect); Barbiturates, Urine Not Detected (Not Detect); Benzodiazepines Screen Urine POSITIVE (Not Detect); Cannabinoid Screen Urine POSITIVE (Not Detect); Cocaine Screen Urine POSITIVE (Not Detect); Fentanyl, urine POSITIVE (Not Detect); Opiate Screen Urine Not Detected (Not Detect); Phencyclidine Screen Urine Not Detected (Not Detect)
[2022-03-04] MEDS: LORazepam 1 MG TABLET 2 MG PO (03:29)
--- NOTE | 2022-03-04 06:52 | PC.NURSE ---
Patient slept through the night, no distress observed/reported, behavior non concerning, Ativan 2 mg po at 0329 with + effect, med rec completed/ patient had been off medication for months except Suboxone, patient engaged well with N, disposition section 12 inpatient bed search, VSS, will continue to monitor.
[2022-03-04 07:21] VITALS: PULSE 60
--- NOTE | 2022-03-04 07:41 | ECG_ITS ---
Test Reason : COCAINE USE Blood Pressure : / mmHG Vent. Rate : 048 BPM Atrial Rate : 048 BPM P-R Int : 166 ms QRS Dur : 152 ms QT Int : 498 ms P-R-T Axes : -54 004 -12 degrees QTc Int : 444 ms Sinus bradycardia Right bundle branch block Abnormal ECG When compared with ECG of 06-FEB-2022 10:54, Vent. rate has decreased BY 25 BPM Referred By: Nicolas Morgan Electronically Signed By:PRECIOUS BLACK MD
--- NOTE | 2022-03-04 07:45 | PC.NURSE ---
Addendum entered by Liz Caal 03/04/22 14:24: Report given. Pt ambulatory at this time in room. no apparent distress. Addendum entered by Liz Caal 03/04/22 07:46: Refused EKG at this time. Original Note: Report taken from overnight-No acute incidents reported. Medicated with 2mg PO Ativan for withdrawals.
[2022-03-04 07:49] VITALS: BP 153/88; PULSE 60; RESP 16; TEMP 36.4; O2SAT 100
[2022-03-04 13:24] VITALS: RESP 16
--- NOTE | 2022-03-04 14:24 | PC.NURSE ---
Pt refuses to let me change sheets and blankets. Pt did not want to walk to the bathroom
[2022-03-04] MEDS: Buprenorphine/Naloxone 8/2 mg FILM 1 FILM SUBLINGUAL ×2 (14:27→21:58)
--- NOTE | 2022-03-04 15:50 | PC.NURSE ---
left unit 1550
[2022-03-04 18:00] VITALS: RESP 16
--- NOTE | 2022-03-04 18:36 | PC.ADMIT ---
46 y/o male admitted to M5 room 506-1 from [facility] psychiatric POD in [facility] ED. Pt. arrived via wheelchair and upon arrival he immediately went to bed. His mood and affect are angry and irritable when approached. He refused to take part in admission process.
[2022-03-04 20:32] LABS: Glucose, Whole Blood 143 mg/dL (60-115)
[2022-03-04] MEDS: traZODone HCL 50 MG TABLET PO (21:58)
[2022-03-04] MEDS: hydrOXYzine HCL 25 MG TABLET PO (21:59)
[2022-03-05 05:52] VITALS: BMI 20.9
[2022-03-05 06:00] VITALS: BP 182/106; PULSE 65; RESP 16; TEMP 37.3; O2SAT 97
[2022-03-05] MEDS: Buprenorphine/Naloxone 8/2 mg FILM 1 FILM SUBLINGUAL ×3 (08:28→20:47)
[2022-03-05] MEDS: Thiamine HCL 100 MG TABLET PO (08:28)
[2022-03-05 09:17] LABS: Alanine Aminotransferase 38 U/L (0-40); Albumin Level 3.5 g/dL (3.5-5.0); Alkaline Phosphatase 48 U/L (39-117); Anion Gap 14 (12-20); Aspartate Amino Transferase 40 U/L (5-37); Bilirubin Total 0.5 mg/dL (0.0-1.0); Blood Urea Nitrogen 9 mg/dL (9-16); Calcium 8.6 mg/dL (8.4-10.2); Carbon Dioxide 27 mmol/L (22-29); Chloride 102 mmol/L (96-108); Cholesterol 136 mg/dL; Creatinine Clr Calc Pharmacy 128.4; Estimated Glomerular Filt Rate > 60; Glucose Fasting 85 mg/dL (60-99); HDL Cholesterol 39 mg/dL; LDL Cholesterol Calculated 83 mg/dl; Potassium 3.6 mmol/L (3.3-5.1); Sodium 139 mmol/L (135-145); Total Protein 6.9 g/dL (6.5-8.0); Triglycerides 74 mg/dL
[2022-03-05 09:36] LABS: Thyroid Stimulating Hormone 1.05 uIU/mL (0.32-4.0)
[2022-03-05] MEDS: Acetaminophen 325 MG TABLET 650 MG PO (10:43)
--- NOTE | 2022-03-05 11:22 | PC.NURSE ---
Patient signed a 3 day notice, provider aware.
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
[2022-03-05] MEDS: metFORMIN HCl 500 MG TABLET PO (16:34)
[2022-03-05] MEDS: Gabapentin 600 MG TABLET PO ×2 (16:34→20:47)
[2022-03-05 17:19] VITALS: BP 169/88; PULSE 72; TEMP 36.8; O2SAT 97
[2022-03-05] MEDS: Tamsulosin HCL 0.4 MG CAPSULE PO (20:47)
[2022-03-06 06:00] VITALS: BP 161/60; PULSE 82; RESP 14; TEMP 36.6; O2SAT 96
[2022-03-06] MEDS: Omeprazole 20 MG CAPSULE.DR PO (06:43)
[2022-03-06 07:29] LABS: Cholesterol 142 mg/dL; HDL Cholesterol 36 mg/dL; LDL Cholesterol Calculated 79 mg/dl; Triglycerides 135 mg/dL
[2022-03-06 07:37] LABS: Estimated Average Glucose 114 mg/dL; Hemoglobin A1c % 5.6 %
[2022-03-06] MEDS: amLODIPine Besylate 10 MG TABLET PO (09:19)
[2022-03-06] MEDS: metFORMIN HCl 500 MG TABLET PO ×2 (09:19→17:25)
[2022-03-06] MEDS: Thiamine HCL 100 MG TABLET PO (09:19)
[2022-03-06] MEDS: Finasteride 5 MG TABLET PO (09:20)
[2022-03-06] MEDS: Docusate Sodium 100 MG CAPSULE PO ×2 (09:20→19:34)
[2022-03-06] MEDS: ARIPiprazole 5 MG TABLET PO (09:20)
[2022-03-06] MEDS: Buprenorphine/Naloxone 8/2 mg FILM 1 FILM SUBLINGUAL ×3 (09:21→19:35)
[2022-03-06] MEDS: Nicotine 21 MG PATCH.TD24 TRANSDERMA (09:21)
[2022-03-06] MEDS: Gabapentin 400 MG CAPSULE 800 MG PO ×3 (09:33→19:32)
[2022-03-06] MEDS: buPROPion HCl XL 300 MG TAB.ER.24H PO (09:54)
--- NOTE | 2022-03-06 10:10 | P.PNPSI_ITS ---
Subjective Subjective Date of Service: 03/06/22 Reason For Visit: SI Interim History: Patient seen and evaluated. He reports he is feeling so so. He reports ongoing depression. Says he still has SI but he says he has no intent of harming himself. Patient reports he is tolerating his medications well. He is requesting titration of his Wellbutrin and GBP which he had been on higher doses in the past. Denies hallucinations. Denies withdrawals. Mental Status Exam Mental Status Exam Patient Appearance: Fatigued Patient Orientation: Person, Place, Time and Situation Level of Consciousness: Alert Patient Behavior: Talkative, Passive, Anxious, Fatigued, Distractible, Isolative and Good Eye Contact Mood Description: Depressed Affect Description: Flat Patient Cognition Impaired: Yes Ability to Follow Directions: Good Speech Pattern: Spontaneous Speech Memory Description: Episodic Impaired Diagnostics Vital Signs (24Hr): Vital Signs - 24 hr 03/06/22 06:00 Temperature 98 F Pulse Rate 82 Respiratory Rate 14 Blood Pressure 161/60 H Pulse Oximetry 96 Oxygen Delivery Method Room Air BMI result Body Mass Index 20.9 Labs Results: 03/04/22 01:49 03/05/22 08:48 Labs: Laboratory Results - last 48 hr 03/04/22 03/05/22 03/06/22 20:24 08:48 07:06 Sodium 139 Potassium 3.6 Chloride 102 Carbon Dioxide 27 Anion Gap 14 BUN 9 Creatinine 0.73 Estim Creat Clear Calc 128.4 Estimated GFR > 60 POC Glucose 143 H Fasting Glucose 85 Estimat Average Glucose 114 Hemoglobin A1c % 5.6 Calcium 8.6 Total Bilirubin 0.5 AST 40 H ALT 38 Alkaline Phosphatase 48 D Total Protein 6.9 Albumin 3.5 Triglycerides 74 Cholesterol 136 LDL Cholesterol, Calc 83 HDL Cholesterol 39 TSH 1.05 03/06/22 07:06 Sodium Potassium Chloride Carbon Dioxide Anion Gap BUN Creatinine Estim Creat Clear Calc Estimated GFR POC Glucose Fasting Glucose Estimat Average Glucose Hemoglobin A1c % Calcium Total Bilirubin AST ALT Alkaline Phosphatase Total Protein Albumin Triglycerides 135 Cholesterol 142 LDL Cholesterol, Calc 79 HDL Cholesterol 36 TSH Medications Medications Current Medications Acetaminophen (Acetaminophen 325 Mg Tablet) 650 mg PO Q6H PRN PRN Reason: Headache/Pain Mild Scale (1-3) Last Admin: 03/05/22 10:43 Dose: 650 mg Al Hydroxide/Mg Hydroxide (Magnesium Hydrox/Alum Hydrox 30 Ml Oral.Susp) 30 ml PO Q6H PRN PRN Reason: Heartburn/Nausea Amlodipine Besylate (Amlodipine Besylate 10 Mg Tablet) 10 mg PO DAILY [facility]; Protocol Last Admin: 03/06/22 09:19 Dose: 10 mg Aripiprazole (Aripiprazole 5 Mg Tablet) 5 mg PO DAILY [facility] Last Admin: 03/06/22 09:20 Dose: 5 mg Buprenorphine/Naloxone (Buprenorphine/Naloxone 8/2 Mg Film) 1 film SUBLINGUAL TID [facility] Last Admin: 03/06/22 14:09 Dose: 1 film Bupropion HCl (Bupropion Hcl Xl 300 Mg Tab.Er.24h) 300 mg PO DAILY [facility] Last Admin: 03/06/22 09:54 Dose: 300 mg Docusate Sodium (Docusate Sodium 100 Mg Capsule) 100 mg PO BID [facility] Last Admin: 03/06/22 09:20 Dose: 100 mg Finasteride (Finasteride 5 Mg Tablet) 5 mg PO DAILY [facility] Last Admin: 03/06/22 09:20 Dose: 5 mg Gabapentin (Gabapentin 400 Mg Capsule) 800 mg PO TID [facility] Last Admin: 03/06/22 14:09 Dose: 800 mg Hydroxyzine HCl (Hydroxyzine Hcl 25 Mg Tablet) 25 mg PO Q6H PRN PRN Reason: Anxiety Last Admin: 03/04/22 21:59 Dose: 25 mg Ibuprofen (Ibuprofen 800 Mg Tablet) 800 mg PO Q8H PRN PRN Reason: Pain, Mild (Pain Scale 1-3) Last Admin: 03/06/22 17:30 Dose: 800 mg Lorazepam (Lorazepam 1 Mg Tablet) 1 mg PO Q4H PRN PRN Reason: Opiate Withdrawal Lorazepam (Lorazepam 1 Mg Tablet) 2 mg PO Q4H PRN PRN Reason: Opiate Withdrawal Magnesium Hydroxide (Milk Of Magnesia 30 Ml Oral.Susp) 30 ml PO DAILY PRN PRN Reason: Constipation Metformin HCl (Metformin Hcl 500 Mg Tablet) 500 mg PO BIDWM [facility] Last Admin: 03/06/22 17:25 Dose: 500 mg Nicotine (Nicotine 21 Mg Patch.Td24) 21 mg TRANSDERMA DAILY [facility] Last Admin: 03/06/22 09:21 Dose: 21 mg Nicotine Polacrilex (Nicotine Polacrilex 2 Mg Gum) 4 mg BUCCAL Q2H PRN PRN Reason: Nicotine Cravings Omeprazole (Omeprazole 20 Mg Capsule.Dr) 20 mg PO DAILY@0630 [facility] Last Admin: 03/06/22 06:43 Dose: 20 mg Tamsulosin HCl (Tamsulosin Hcl 0.4 Mg Capsule) 0.4 mg PO BEDTIME [facility] Last Admin: 03/05/22 20:47 Dose: 0.4 mg Thiamine HCl (Thiamine Hcl 100 Mg Tablet) 100 mg PO DAILY [facility] Last Admin: 03/06/22 09:19 Dose: 100 mg Trazodone HCl (Trazodone Hcl 50 Mg Tablet) 50 mg PO BEDTIME PRN PRN Reason: Insomnia Last Admin: 03/04/22 21:58 Dose: 50 mg Allergies Allergies Allergy/AdvReac Type Severity Reaction Status Date / Time levofloxacin [From Levaquin] Allergy Intermediate rash Verified 02/10/22 13:30 Assessment & Plan Assessment & Plan (1) MDD (major depressive disorder), recurrent episode, moderate: Status: Acute Code(s): F33.1 - Major depressive disorder, recurrent, moderate (2) Opiate dependence: Status: Acute Code(s): F11.20 - Opioid dependence, uncomplicated (3) Polysubstance use disorder: Status: Acute Code(s): F19.90 - Other psychoactive substance use, unspecified, uncomplicated (4) MDD (major depressive disorder), recurrent, severe, with psychosis: Status: Acute Code(s): F33.3 - Major depressive disorder, recurrent, severe with psychotic symptoms Plan 46 yo male, h/o depression, polysubstance abuse. Recent discharge. Pt is homeless. He lost medications on discharge and as a result stopped taking them with recent decompensation and relapse. Plan: Meds restarted. Wellbutrin hx 450 mg. Started at 150 mg XL for 03/06. Lipids, A1C Pt reports he is no longer using insulin- will monitor. Extensive discussion in team rearding pt's decline. ?Section XXXV consideration as pt appears to deterioriate with each admission. Declines CSS/TSS program after discharge at this time. 03/06: Increase Wellbutrin XL to 300 mg. Increase GBP to 800 mg TID. Continue treatment plan. I spent minutes with the patient and/or on the patient floor today, greater than?50% of which was spent counseling/coordinating care. Patient educated on: medication risk/benefits Informed Consent: understands Reason for contiued inpatient stay Substantial Risk for: harm to self, inability to function and rapid decompensation
[2022-03-06 17:25] VITALS: BP 142/87; PULSE 69; TEMP 36.3
[2022-03-06] MEDS: Ibuprofen 800 MG TABLET PO (17:30)
[2022-03-06] MEDS: Tamsulosin HCL 0.4 MG CAPSULE PO (19:34)
[2022-03-07 06:00] VITALS: BP 139/87; PULSE 71; RESP 14; TEMP 36.6; O2SAT 100
[2022-03-07] MEDS: Omeprazole 20 MG CAPSULE.DR PO (06:09)
[2022-03-07] MEDS: Finasteride 5 MG TABLET PO (08:37)
[2022-03-07] MEDS: amLODIPine Besylate 10 MG TABLET PO (08:37)
[2022-03-07] MEDS: Gabapentin 400 MG CAPSULE 800 MG PO ×3 (08:38→20:45)
[2022-03-07] MEDS: buPROPion HCl XL 300 MG TAB.ER.24H PO (08:38)
[2022-03-07] MEDS: ARIPiprazole 5 MG TABLET PO (08:38)
[2022-03-07] MEDS: Nicotine 21 MG PATCH.TD24 TRANSDERMA (08:38)
[2022-03-07] MEDS: Thiamine HCL 100 MG TABLET PO (08:38)
[2022-03-07] MEDS: Docusate Sodium 100 MG CAPSULE PO ×2 (08:38→20:44)
[2022-03-07] MEDS: metFORMIN HCl 500 MG TABLET PO ×2 (08:38→17:44)
[2022-03-07] MEDS: Buprenorphine/Naloxone 8/2 mg FILM 1 FILM SUBLINGUAL ×3 (08:38→20:47)
--- NOTE | 2022-03-07 09:31 | HO.PSYCHPN ---
Subjective Subjective Date of Service: 03/07/22 Reason For Visit: SI Interim History: Patient seen and discussed. He reports he continues to feel depressed. He slept most of the day yesterday. He was able to sleep at night. He reports he is still having SI but says he would talk to a counselor if SI gets worse. Looks unkempt. Dysphoric, irritable. He is isolative. Patient reports he is tolerating his medications well Denies hallucinations. Denies withdrawals. Review of Systems Review of Systems Yes all other systems are reviewed and are negative Constitutional: Reports anorexia, Reports body ache(s), Reports fatigue, Reports lethargy, Reports poor appetite and Reports weight loss Eyes: Reports no additional eye complaints Reports system reviewed and no additional complaints, except as documented Cardiovascular: Reports no additional cardiovascular complaints Respiratory: Reports cough (green phlegm) Gastrointestinal: Reports no additional gastrointestinal complaints Genitourinary: Reports difficulty urinating, Reports flank pain, Reports urinary hesitancy and Reports other (non compliant with proscar and tamsulosin) Musculoskeletal: Reports other (pain in feet and hands) Skin/Breast: Reports system reviewed and no additional complaints, except as docu Reports system reviewed and no additional complaints, except as documented and Reports behavioral changes Psychiatric: Reports abnormal sleep pattern, Reports anxiety, Reports behavioral changes, Reports change in appetite, Reports depression, Reports difficulty concentrating, Reports hopelessness, Reports irritability, Reports anhedonia, Reports mood swings, Reports homicidal ideation and Reports suicidal ideation Endocrine: Reports fatigue Hematologic/Lymphatic: Reports no additional hematologic/lymphatic complaints Allergic/Immunologic: Reports no additional allergic/immunologic complaints Mental Status Exam Mental Status Exam Patient Appearance: Fatigued and Unkempt Patient Orientation: Person, Place, Time and Situation Level of Consciousness: Alert Patient Behavior: Talkative, Passive, Anxious, Fatigued, Distractible, Isolative and Good Eye Contact Mood Description: Depressed Affect Description: Flat Patient Cognition Impaired: Yes Ability to Follow Directions: Good Speech Pattern: Spontaneous Speech Memory Description: Episodic Impaired Hallucinations: None Delusions: Not Present Thought Process: Intact Thought Content: positive for Intact and positive for Poverty of Content Depressive Symptoms: Increased Anxiety, Increased Irritability, Sleeping More Than Usual, Feelings of Worthlessness, Feelings of Guilt and Thoughts of /Suicide Judgement: Fair Diagnostics Vital Signs (24Hr): Vital Signs - 24 hr 03/06/22 17:25 03/07/22 06:00 Temperature 97.4 F 97.9 F Pulse Rate 69 71 Respiratory Rate 14 Blood Pressure 142/87 H 139/87 Pulse Oximetry 100 Oxygen Delivery Method Room Air BMI result Body Mass Index 20.9 Labs Results: 03/04/22 01:49 03/05/22 08:48 Labs: Laboratory Results - last 48 hr 03/05/22 03/06/22 03/06/22 08:48 07:06 07:06 Estimat Average Glucose 114 Hemoglobin A1c % 5.6 Triglycerides 135 Cholesterol 142 LDL Cholesterol, Calc 79 HDL Cholesterol 36 TSH 1.05 Medications Medications Current Medications Acetaminophen (Acetaminophen 325 Mg Tablet) 650 mg PO Q6H PRN PRN Reason: Headache/Pain Mild Scale (1-3) Last Admin: 03/05/22 10:43 Dose: 650 mg Al Hydroxide/Mg Hydroxide (Magnesium Hydrox/Alum Hydrox 30 Ml Oral.Susp) 30 ml PO Q6H PRN PRN Reason: Heartburn/Nausea Amlodipine Besylate (Amlodipine Besylate 10 Mg Tablet) 10 mg PO DAILY [facility]; Protocol Last Admin: 03/07/22 08:37 Dose: 10 mg Aripiprazole (Aripiprazole 5 Mg Tablet) 5 mg PO DAILY [facility] Last Admin: 03/07/22 08:38 Dose: 5 mg Buprenorphine/Naloxone (Buprenorphine/Naloxone 8/2 Mg Film) 1 film SUBLINGUAL TID [facility] Last Admin: 03/07/22 08:38 Dose: 1 film Bupropion HCl (Bupropion Hcl Xl 300 Mg Tab.Er.24h) 300 mg PO DAILY [facility] Last Admin: 03/07/22 08:38 Dose: 300 mg Docusate Sodium (Docusate Sodium 100 Mg Capsule) 100 mg PO BID [facility] Last Admin: 03/07/22 08:38 Dose: 100 mg Finasteride (Finasteride 5 Mg Tablet) 5 mg PO DAILY [facility] Last Admin: 03/07/22 08:37 Dose: 5 mg Gabapentin (Gabapentin 400 Mg Capsule) 800 mg PO TID [facility] Last Admin: 03/07/22 08:38 Dose: 800 mg Hydroxyzine HCl (Hydroxyzine Hcl 25 Mg Tablet) 25 mg PO Q6H PRN PRN Reason: Anxiety Last Admin: 03/04/22 21:59 Dose: 25 mg Ibuprofen (Ibuprofen 800 Mg Tablet) 800 mg PO Q8H PRN PRN Reason: Pain, Mild (Pain Scale 1-3) Last Admin: 03/06/22 17:30 Dose: 800 mg Lorazepam (Lorazepam 1 Mg Tablet) 1 mg PO Q4H PRN PRN Reason: Opiate Withdrawal Lorazepam (Lorazepam 1 Mg Tablet) 2 mg PO Q4H PRN PRN Reason: Opiate Withdrawal Magnesium Hydroxide (Milk Of Magnesia 30 Ml Oral.Susp) 30 ml PO DAILY PRN PRN Reason: Constipation Metformin HCl (Metformin Hcl 500 Mg Tablet) 500 mg PO BIDWM [facility] Last Admin: 03/07/22 08:38 Dose: 500 mg Nicotine (Nicotine 21 Mg Patch.Td24) 21 mg TRANSDERMA DAILY [facility] Last Admin: 03/07/22 08:38 Dose: 21 mg Nicotine Polacrilex (Nicotine Polacrilex 2 Mg Gum) 4 mg BUCCAL Q2H PRN PRN Reason: Nicotine Cravings Omeprazole (Omeprazole 20 Mg Capsule.Dr) 20 mg PO DAILY@0630 [facility] Last Admin: 03/07/22 06:09 Dose: 20 mg Tamsulosin HCl (Tamsulosin Hcl 0.4 Mg Capsule) 0.4 mg PO BEDTIME [facility] Last Admin: 03/06/22 19:34 Dose: 0.4 mg Thiamine HCl (Thiamine Hcl 100 Mg Tablet) 100 mg PO DAILY [facility] Last Admin: 03/07/22 08:38 Dose: 100 mg Trazodone HCl (Trazodone Hcl 50 Mg Tablet) 50 mg PO BEDTIME PRN PRN Reason: Insomnia Last Admin: 03/04/22 21:58 Dose: 50 mg Allergies Allergies Allergy/AdvReac Type Severity Reaction Status Date / Time levofloxacin [From Levaquin] Allergy Intermediate rash Verified 02/10/22 13:30 Assessment & Plan Assessment & Plan (1) MDD (major depressive disorder), recurrent episode, moderate: Status: Acute Code(s): F33.1 - Major depressive disorder, recurrent, moderate (2) Opiate dependence: Status: Acute Code(s): F11.20 - Opioid dependence, uncomplicated (3) Polysubstance use disorder: Status: Acute Code(s): F19.90 - Other psychoactive substance use, unspecified, uncomplicated (4) MDD (major depressive disorder), recurrent, severe, with psychosis: Status: Acute Code(s): F33.3 - Major depressive disorder, recurrent, severe with psychotic symptoms Plan 46 yo male, h/o depression, polysubstance abuse. Recent discharge. Pt is homeless. He lost medications on discharge and as a result stopped taking them with recent decompensation and relapse. Plan: Meds restarted. Wellbutrin hx 450 mg. Started at 150 mg XL for 03/06. Lipids, A1C Pt reports he is no longer using insulin- will monitor. Extensive discussion in team rearding pt's decline. ?Section XXXV consideration as pt appears to deterioriate with each admission. Declines CSS/TSS program after discharge at this time. 03/06: Increase Wellbutrin XL to 300 mg. Increase GBP to 800 mg TID. Continue treatment plan. : Continue current treatment plan. I spent minutes with the patient and/or on the patient floor today, greater than?50% of which was spent counseling/coordinating care. Reason for contiued inpatient stay Substantial Risk for: inability to function and rapid decompensation
[2022-03-07 16:25] VITALS: BP 148/96; PULSE 95; TEMP 36.2
[2022-03-07] MEDS: Ibuprofen 800 MG TABLET PO (16:34)
[2022-03-07] MEDS: Tamsulosin HCL 0.4 MG CAPSULE PO (20:44)
[2022-03-07] MEDS: traZODone HCL 50 MG TABLET PO (20:47)
[2022-03-08 06:00] VITALS: BP 157/88; PULSE 76; TEMP 36.8; O2SAT 95
[2022-03-08] MEDS: Omeprazole 20 MG CAPSULE.DR PO (06:25)
[2022-03-08] MEDS: Buprenorphine/Naloxone 8/2 mg FILM 1 FILM SUBLINGUAL ×3 (08:33→19:34)
[2022-03-08] MEDS: metFORMIN HCl 500 MG TABLET PO ×2 (08:33→16:54)
[2022-03-08] MEDS: Nicotine 21 MG PATCH.TD24 TRANSDERMA (08:33)
[2022-03-08] MEDS: Finasteride 5 MG TABLET PO (08:33)
[2022-03-08] MEDS: ARIPiprazole 5 MG TABLET PO (08:34)
[2022-03-08] MEDS: Thiamine HCL 100 MG TABLET PO (08:34)
[2022-03-08] MEDS: Gabapentin 400 MG CAPSULE 800 MG PO ×3 (08:34→19:34)
[2022-03-08] MEDS: amLODIPine Besylate 10 MG TABLET PO (08:34)
[2022-03-08] MEDS: buPROPion HCl XL 300 MG TAB.ER.24H PO (09:09)
[2022-03-08] MEDS: Docusate Sodium 100 MG CAPSULE PO (09:09)
[2022-03-08 09:49] LABS: HIV AB/AG Nonreactive (Nonreactive); HIV Num 1 0.07 S/CO (0.00-0.99)
[2022-03-08] MEDS: Amoxicillin 500 MG CAPSULE PO ×2 (11:33→19:43)
--- NOTE | 2022-03-08 16:49 | P.PNPSI_ITS ---
Subjective Subjective Date of Service: 03/08/22 Reason For Visit: SI Subjective Notes: Conditional Voluntary and 3 Day Healthcare Proxy: No Guardianship: No Medical Problems Affecting Mental Status: No Interim History: Pt positive for Strep A. Antibiotics initiated. Resting for most of the day. Denies current med SE or issues Reviewed in team-significant concerns regarding decline in health, multiple admissions, overall decline due to substance abuse. Medication Compliance: Yes Side effects from medications: No Attending Groups: No Review of Systems Acute medical concerns: No Medical Review of Systems: unchanged Mental Status Exam Mental Status Exam Patient Appearance: Fatigued Patient Orientation: Person, Place, Time and Situation Level of Consciousness: Sedated Patient Behavior: Asleep Mood Description: Flat Affect Description: Flat Patient Cognition Impaired: No Ability to Follow Directions: Good Speech Pattern: Spontaneous Speech Memory Description: Episodic Impaired Hallucinations: None Delusions: Not Present Thought Process: Intact Thought Content: positive for Intact, positive for Suicidal Ideation (denies) and positive for Homicidal Ideation (denies) Depressive Symptoms: Sleeping More Than Usual Judgement: Fair Diagnostics Vital Signs (24Hr): Vital Signs - 24 hr 03/08/22 06:00 Temperature 98.2 F Pulse Rate 76 Blood Pressure 157/88 H Pulse Oximetry 95 Oxygen Delivery Method Room Air BMI result Body Mass Index 20.9 Labs Results: 03/04/22 01:49 03/05/22 08:48 Labs: Laboratory Results - last 48 hr 03/06/22 07:06 HIV 1&2 Ab/P24 Ag 4thGn Nonreactive Medications Medications Current Medications Acetaminophen (Acetaminophen 325 Mg Tablet) 650 mg PO Q6H PRN PRN Reason: Headache/Pain Mild Scale (1-3) Last Admin: 03/05/22 10:43 Dose: 650 mg Al Hydroxide/Mg Hydroxide (Magnesium Hydrox/Alum Hydrox 30 Ml Oral.Susp) 30 ml PO Q6H PRN PRN Reason: Heartburn/Nausea Amlodipine Besylate (Amlodipine Besylate 10 Mg Tablet) 10 mg PO DAILY [facility]; Protocol Last Admin: 03/08/22 08:34 Dose: 10 mg Amoxicillin (Amoxicillin 500 Mg Capsule) 500 mg PO Q12H [facility] Stop: 03/19/22 11:00 Last Admin: 03/08/22 11:33 Dose: 500 mg Aripiprazole (Aripiprazole 5 Mg Tablet) 5 mg PO DAILY [facility] Last Admin: 03/08/22 08:34 Dose: 5 mg Buprenorphine/Naloxone (Buprenorphine/Naloxone 8/2 Mg Film) 1 film SUBLINGUAL TID [facility] Last Admin: 03/08/22 14:23 Dose: 1 film Bupropion HCl (Bupropion Hcl Xl 300 Mg Tab.Er.24h) 300 mg PO DAILY [facility] Last Admin: 03/08/22 09:09 Dose: 300 mg Docusate Sodium (Docusate Sodium 100 Mg Capsule) 100 mg PO BID [facility] Last Admin: 03/08/22 09:09 Dose: 100 mg Finasteride (Finasteride 5 Mg Tablet) 5 mg PO DAILY [facility] Last Admin: 03/08/22 08:33 Dose: 5 mg Gabapentin (Gabapentin 400 Mg Capsule) 800 mg PO TID [facility] Last Admin: 03/08/22 14:23 Dose: 800 mg Hydroxyzine HCl (Hydroxyzine Hcl 25 Mg Tablet) 25 mg PO Q6H PRN PRN Reason: Anxiety Last Admin: 03/04/22 21:59 Dose: 25 mg Ibuprofen (Ibuprofen 800 Mg Tablet) 800 mg PO Q8H PRN PRN Reason: Pain, Mild (Pain Scale 1-3) Last Admin: 03/07/22 16:34 Dose: 800 mg Lorazepam (Lorazepam 1 Mg Tablet) 1 mg PO Q4H PRN PRN Reason: Opiate Withdrawal Lorazepam (Lorazepam 1 Mg Tablet) 2 mg PO Q4H PRN PRN Reason: Opiate Withdrawal Magnesium Hydroxide (Milk Of Magnesia 30 Ml Oral.Susp) 30 ml PO DAILY PRN PRN Reason: Constipation Metformin HCl (Metformin Hcl 500 Mg Tablet) 500 mg PO BIDWM [facility] Last Admin: 03/08/22 08:33 Dose: 500 mg Nicotine (Nicotine 21 Mg Patch.Td24) 21 mg TRANSDERMA DAILY [facility] Last Admin: 03/08/22 08:33 Dose: 21 mg Nicotine Polacrilex (Nicotine Polacrilex 2 Mg Gum) 4 mg BUCCAL Q2H PRN PRN Reason: Nicotine Cravings Omeprazole (Omeprazole 20 Mg Capsule.Dr) 20 mg PO DAILY@0630 [facility] Last Admin: 03/08/22 06:25 Dose: 20 mg Tamsulosin HCl (Tamsulosin Hcl 0.4 Mg Capsule) 0.4 mg PO BEDTIME [facility] Last Admin: 03/07/22 20:44 Dose: 0.4 mg Thiamine HCl (Thiamine Hcl 100 Mg Tablet) 100 mg PO DAILY [facility] Last Admin: 03/08/22 08:34 Dose: 100 mg Trazodone HCl (Trazodone Hcl 50 Mg Tablet) 50 mg PO BEDTIME PRN PRN Reason: Insomnia Last Admin: 03/07/22 20:47 Dose: 50 mg Allergies Allergies Allergy/AdvReac Type Severity Reaction Status Date / Time levofloxacin [From Levaquin] Allergy Intermediate rash Verified 02/10/22 13:30 Assessment & Plan Assessment & Plan (1) MDD (major depressive disorder), recurrent episode, moderate: Status: Acute Code(s): F33.1 - Major depressive disorder, recurrent, moderate (2) Opiate dependence: Status: Acute Code(s): F11.20 - Opioid dependence, uncomplicated (3) Polysubstance use disorder: Status: Acute Code(s): F19.90 - Other psychoactive substance use, unspecified, uncomplicated (4) MDD (major depressive disorder), recurrent, severe, with psychosis: Status: Acute Code(s): F33.3 - Major depressive disorder, recurrent, severe with psychotic symptoms Plan 46 yo male, h/o depression, polysubstance abuse. Recent discharge. Pt is ho meless. He lost medications on discharge and as a result stopped taking them with recent decompensation and relapse. Plan: Meds restarted. Wellbutrin hx 450 mg. Started at 150 mg XL for 03/06. Lipids, A1C Pt reports he is no longer using insulin- will monitor. Extensive discussion in team rearding pt's decline. ?Section XXXV consideration as pt appears to deterioriate with each admission. Declines CSS/TSS program after discharge at this time. 03/06: Increase Wellbutrin XL to 300 mg. Increase GBP to 800 mg TID. Continue treatment plan. : Continue current treatment plan. 03/08/22: Strep A positive. Antibiotics initiated. Continue current regime Section 35 discussed in team meeting. I spent minutes with the patient and/or on the patient floor today, greater than?50% of which was spent counseling/coordinating care. Informed Consent: understands Reason for contiued inpatient stay Substantial Risk for: med/psych decompensation
[2022-03-08 17:24] VITALS: RESP 16; TEMP 36.2
[2022-03-08] MEDS: Tamsulosin HCL 0.4 MG CAPSULE PO (19:34)
[2022-03-08] MEDS: traZODone HCL 50 MG TABLET PO (19:38)
[2022-03-09] MEDS: Omeprazole 20 MG CAPSULE.DR PO (05:55)
[2022-03-09 07:45] VITALS: BP 135/84; PULSE 86; RESP 16; TEMP 36.8; O2SAT 96
[2022-03-09] MEDS: Thiamine HCL 100 MG TABLET PO (08:17)
[2022-03-09] MEDS: metFORMIN HCl 500 MG TABLET PO ×2 (08:17→15:51)
[2022-03-09] MEDS: ARIPiprazole 5 MG TABLET PO (08:17)
[2022-03-09] MEDS: amLODIPine Besylate 10 MG TABLET PO (08:17)
[2022-03-09] MEDS: Gabapentin 400 MG CAPSULE 800 MG PO ×3 (08:17→19:24)
[2022-03-09] MEDS: buPROPion HCl XL 300 MG TAB.ER.24H PO (08:17)
[2022-03-09] MEDS: Docusate Sodium 100 MG CAPSULE PO ×2 (08:17→19:24)
[2022-03-09] MEDS: Buprenorphine/Naloxone 8/2 mg FILM 1 FILM SUBLINGUAL ×3 (08:17→19:24)
[2022-03-09] MEDS: Finasteride 5 MG TABLET PO (08:18)
[2022-03-09] MEDS: Nicotine 21 MG PATCH.TD24 TRANSDERMA (08:18)
[2022-03-09] MEDS: Amoxicillin 500 MG CAPSULE PO ×2 (11:45→21:21)
--- NOTE | 2022-03-09 16:52 | P.PNPSI_ITS ---
Subjective Subjective Date of Service: 03/09/22 Reason For Visit: SI Subjective Notes: 3 Day (03/10/22) Healthcare Proxy: No Guardianship: No Medical Problems Affecting Mental Status: Yes (UTI, Strep) Interim History: Pt feeling physically drained-UTI/Strep/URI sx. Reports med regime is tolerated, without SE Team reports pt is attending a few groups Reports he is sleeping well, taking fluids Still considering leaving on TDN on 03/10/22. Section 35 filed with [facility] [address] for consideration. Possible hearing 03/10/22. Medication Compliance: Yes Side effects from medications: No Attending Groups: Intermittent Review of Systems Acute medical concerns: No Strep and UTI Mental Status Exam Mental Status Exam Patient Appearance: Fatigued Patient Orientation: Person, Place, Time and Situation Level of Consciousness: Sedated Patient Behavior: Asleep Mood Description: Flat Affect Description: Flat Patient Cognition Impaired: No Ability to Follow Directions: Good Speech Pattern: Spontaneous Speech Memory Description: Episodic Impaired Hallucinations: None Delusions: Not Present Thought Process: Intact Thought Content: positive for Intact, positive for Suicidal Ideation (denies) and positive for Homicidal Ideation (denies) Depressive Symptoms: Sleeping More Than Usual Judgement: Fair Diagnostics Vital Signs (24Hr): Vital Signs - 24 hr 03/08/22 17:24 03/09/22 07:45 Temperature 97.1 F 98.2 F Pulse Rate 86 Respiratory Rate 16 16 Blood Pressure 135/84 Pulse Oximetry 96 Oxygen Delivery Method Room Air BMI result Body Mass Index 20.9 Labs Results: 03/04/22 01:49 03/05/22 08:48 Labs: Laboratory Results - last 48 hr 03/06/22 07:06 HIV 1&2 Ab/P24 Ag 4thGn Nonreactive Medications Medications Current Medications Acetaminophen (Acetaminophen 325 Mg Tablet) 650 mg PO Q6H PRN PRN Reason: Headache/Pain Mild Scale (1-3) Last Admin: 03/05/22 10:43 Dose: 650 mg Al Hydroxide/Mg Hydroxide (Magnesium Hydrox/Alum Hydrox 30 Ml Oral.Susp) 30 ml PO Q6H PRN PRN Reason: Heartburn/Nausea Amlodipine Besylate (Amlodipine Besylate 10 Mg Tablet) 10 mg PO DAILY SHABBIR; Protocol Last Admin: 03/09/22 08:17 Dose: 10 mg Amoxicillin (Amoxicillin 500 Mg Capsule) 500 mg PO Q12H SHABBIR Stop: 03/19/22 11:00 Last Admin: 03/09/22 11:45 Dose: 500 mg Aripiprazole (Aripiprazole 5 Mg Tablet) 5 mg PO DAILY REPLACED BY [facility] Last Admin: 03/09/22 08:17 Dose: 5 mg Buprenorphine/Naloxone (Buprenorphine/Naloxone 8/2 Mg Film) 1 film SUBLINGUAL TID REPLACED BY [facility] Last Admin: 03/09/22 14:12 Dose: 1 film Bupropion HCl (Bupropion Hcl Xl 300 Mg Tab.Er.24h) 300 mg PO DAILY REPLACED BY [facility] Last Admin: 03/09/22 08:17 Dose: 300 mg Docusate Sodium (Docusate Sodium 100 Mg Capsule) 100 mg PO BID REPLACED BY [facility] Last Admin: 03/09/22 08:17 Dose: 100 mg Finasteride (Finasteride 5 Mg Tablet) 5 mg PO DAILY REPLACED BY [facility] Last Admin: 03/09/22 08:18 Dose: 5 mg Gabapentin (Gabapentin 400 Mg Capsule) 800 mg PO TID REPLACED BY [facility] Last Admin: 03/09/22 14:11 Dose: 800 mg Hydroxyzine HCl (Hydroxyzine Hcl 25 Mg Tablet) 25 mg PO Q6H PRN PRN Reason: Anxiety Last Admin: 03/04/22 21:59 Dose: 25 mg Ibuprofen (Ibuprofen 800 Mg Tablet) 800 mg PO Q8H PRN PRN Reason: Pain, Mild (Pain Scale 1-3) Last Admin: 03/07/22 16:34 Dose: 800 mg Lorazepam (Lorazepam 1 Mg Tablet) 1 mg PO Q4H PRN PRN Reason: Opiate Withdrawal Lorazepam (Lorazepam 1 Mg Tablet) 2 mg PO Q4H PRN PRN Reason: Opiate Withdrawal Magnesium Hydroxide (Milk Of Magnesia 30 Ml Oral.Susp) 30 ml PO DAILY PRN PRN Reason: Constipation Metformin HCl (Metformin Hcl 500 Mg Tablet) 500 mg PO BIDWM REPLACED BY [facility] Last Admin: 03/09/22 15:51 Dose: 500 mg Nicotine (Nicotine 21 Mg Patch.Td24) 21 mg TRANSDERMA DAILY REPLACED BY [facility] Last Admin: 03/09/22 08:18 Dose: 21 mg Nicotine Polacrilex (Nicotine Polacrilex 2 Mg Gum) 4 mg BUCCAL Q2H PRN PRN Reason: Nicotine Cravings Omeprazole (Omeprazole 20 Mg Capsule.Dr) 20 mg PO DAILY@0630 REPLACED BY [facility] Last Admin: 03/09/22 05:55 Dose: 20 mg Tamsulosin HCl (Tamsulosin Hcl 0.4 Mg Capsule) 0.4 mg PO BEDTIME REPLACED BY [facility] Last Admin: 03/08/22 19:34 Dose: 0.4 mg Thiamine HCl (Thiamine Hcl 100 Mg Tablet) 100 mg PO DAILY REPLACED BY [facility] Last Admin: 03/09/22 08:17 Dose: 100 mg Trazodone HCl (Trazodone Hcl 50 Mg Tablet) 50 mg PO BEDTIME PRN PRN Reason: Insomnia Last Admin: 03/08/22 19:38 Dose: 50 mg Allergies Allergies Allergy/AdvReac Type Severity Reaction Status Date / Time levofloxacin [From Levaquin] Allergy Intermediate rash Verified 02/10/22 13:30 Assessment & Plan Assessment & Plan (1) MDD (major depressive disorder), recurrent episode, moderate: Status: Acute Code(s): F33.1 - Major depressive disorder, recurrent, moderate (2) Opiate dependence: Status: Acute Code(s): F11.20 - Opioid dependence, uncomplicated (3) Polysubstance use disorder: Status: Acute Code(s): F19.90 - Other psychoactive substance use, unspecified, uncomplicated (4) MDD (major depressive disorder), recurrent, severe, with psychosis: Status: Acute Code(s): F33.3 - Major depressive disorder, recurrent, severe with psychotic symptoms Plan 46 yo male, h/o depression, polysubstance abuse. Recent discharge. Pt is homeless. He lost medications on discharge and as a result stopped taking them with recent decompensation and relapse. Plan: Meds restarted. Wellbutrin hx 450 mg. Started at 150 mg XL for 03/06. Lipids, A1C Pt reports he is no longer using insulin- will monitor. Extensive discussion in team rearding pt's decline. ?Section XXXV consideration as pt appears to deterioriate with each admission. Declines CSS/TSS program after discharge at this time. 03/06: Increase Wellbutrin XL to 300 mg. Increase GBP to 800 mg TID. Continue treatment plan. : Continue current treatment plan. 03/08/22: Strep A positive. Antibiotics initiated. Continue current regime Section 35 discussed in team meeting. 03/09/22: UTI +. Continue antibiotic Section 35 filed for consideration by the court I spent minutes with the patient and/or on the patient floor today, greater than?50% of which was spent counseling/coordinating care. Patient educated on: therapeutic strategies and medical condition Informed Consent: understands Reason for contiued inpatient stay Substantial Risk for: harm to self, rapid decompensation and med/psych decompensation
[2022-03-09] MEDS: Tamsulosin HCL 0.4 MG CAPSULE PO (19:24)
[2022-03-10 07:36] VITALS: BP 137/81; PULSE 77; RESP 16; TEMP 37.1; O2SAT 98
[2022-03-10] MEDS: Nicotine 21 MG PATCH.TD24 TRANSDERMA (08:27)
[2022-03-10] MEDS: Clotrimazole 1 % Cream 15 GM TUBE 1 APPL TOPICAL (08:27)
[2022-03-10] MEDS: amLODIPine Besylate 10 MG TABLET PO (08:28)
[2022-03-10] MEDS: Finasteride 5 MG TABLET PO (08:28)
[2022-03-10] MEDS: Thiamine HCL 100 MG TABLET PO (08:28)
[2022-03-10] MEDS: Gabapentin 400 MG CAPSULE 800 MG PO (08:28)
[2022-03-10] MEDS: Docusate Sodium 100 MG CAPSULE PO (08:28)
[2022-03-10] MEDS: metFORMIN HCl 500 MG TABLET PO (08:28)
[2022-03-10] MEDS: Omeprazole 20 MG CAPSULE.DR PO (08:28)
[2022-03-10] MEDS: buPROPion HCl XL 300 MG TAB.ER.24H PO (08:28)
[2022-03-10] MEDS: ARIPiprazole 5 MG TABLET PO (08:28)
[2022-03-10] MEDS: Buprenorphine/Naloxone 8/2 mg FILM 1 FILM SUBLINGUAL (08:28)
--- NOTE | 2022-03-10 19:18 | P.DS_ITS ---
DS: Providers Provider Date of Service: 03/10/22 Date of admission: 03/04/22 14:28 Date of discharge: 03/10/22 Primary care physician: Barney Physician Admitting clinician: Jenn Berry Attending physician on admission: Jonathan Mitchell Attending physician on discharge: Jonathan Mitchell Discharging clinician: Jenn Berry DS: Diagnosis Discharge Diagnosis (1) MDD (major depressive disorder), recurrent episode, moderate: Status: Acute (2) Opiate dependence: Status: Acute (3) Polysubstance use disorder: Status: Acute (4) MDD (major depressive disorder), recurrent, severe, with psychosis: Status: Deleted DS: Medications Discharge Medications Home Medications: Home Medications Medication Instructions Recorded Confirmed buprenorphine 8 mg-naloxone 2 mg 1 strip sublingual TID 03/04/22 03/04/22 sublingual film (Suboxone) Previous Rx's Medication Instructions Recorded amlodipine 10 mg tablet 10 mg PO DAILY #0 tabs 03/10/22 amoxicillin 500 mg capsule 500 mg PO Q12H #0 caps 03/10/22 aripiprazole 5 mg tablet (Abilify) 5 mg PO DAILY #0 tabs 03/10/22 benzocaine 15 mg-menthol 3.6 mg 1 jonathan mucous membrane Q2H PRN Sore 03/10/22 lozenges (Sore Throat (benzocaine Throat #0 ea with menthol)) bupropion HCl 300 mg 24 hr tablet, 300 mg PO DAILY #0 tabs 03/10/22 extended release clotrimazole 1 % topical cream 1 appl topical BID #0 grams 03/10/22 docusate sodium 100 mg capsule 100 mg PO BID #0 caps 03/10/22 finasteride 5 mg tablet (Proscar) 5 mg PO DAILY #0 tabs 03/10/22 gabapentin 400 mg capsule 800 mg PO TID #0 caps 03/10/22 hydroxyzine HCl 25 mg tablet 25 mg PO Q6H PRN Anxiety #0 tabs 03/10/22 metformin 500 mg tablet 500 mg PO BIDWM #0 tabs 03/10/22 nicotine (polacrilex) 2 mg gum 4 mg buccal Q2H PRN Nicotine 03/10/22 Cravings #0 ea nicotine 21 mg/24 hr daily 21 mg transdermal DAILY #0 ea 03/10/22 transdermal patch omeprazole 20 mg capsule,delayed 20 mg PO DAILY@0630 #0 caps 03/10/22 release phenol 1.4 % mucosal aerosol spray 1 spray mucous membrane Q2H PRN 03/10/22 (Chloraseptic Throat [place]) sore throat #0 mL tamsulosin 0.4 mg capsule 0.4 mg PO BEDTIME #0 caps 03/10/22 thiamine mononitrate (vit B1) 100 100 mg PO DAILY #0 tabs 03/10/22 mg tablet trazodone 50 mg tablet 50 mg PO BEDTIME PRN Insomnia #0 03/10/22 tabs Mental Status Exam Mental Status Exam Patient Appearance: Fatigued Patient Orientation: Person, Place, Time and Situation Level of Consciousness: Sedated Patient Behavior: Asleep Mood Description: Flat Affect Description: Flat Patient Cognition Impaired: No Ability to Follow Directions: Good Speech Pattern: Spontaneous Speech Memory Description: Episodic Impaired Hallucinations: None Delusions: Not Present Thought Process: Intact Thought Content: positive for Intact, positive for Suicidal Ideation (denies) and positive for Homicidal Ideation (denies) Depressive Symptoms: Sleeping More Than Usual Judgement: Fair Data Data Completed and Pending Completed studies during hospitalization [Text1]: 03/04/22 03/04/22 03/04/22 01:29 01:49 01:49 WBC 6.2 RBC 4.73 Hgb 14.0 Hct 41.2 L MCV 87.1 MCH 29.6 MCHC 34.0 RDW 12.7 Plt Count 297 MPV 9.8 Immature Gran % (Auto) 0.2 Neut % (Auto) 55.9 Lymph % (Auto) 33.1 [place] % (Auto) 8.1 Eos % (Auto) 2.1 Baso % (Auto) 0.6 Lymph # (Auto) 2.1 [place] # (Auto) 0.5 Eos # (Auto) 0.1 Baso # (Auto) 0.0 Abs Immat Gran (auto) 0.01 Absolute Neuts (auto) 3.5 Absolute Nucleated RBC 0.000 Nucleated RBC % (auto) 0.0 Sodium 139 Potassium 3.3 Chloride 101 Carbon Dioxide 27 Anion Gap 14 BUN 15 Creatinine 0.73 Estim Creat Clear Calc 128.5 Estimated GFR > 60 POC Glucose Random Glucose 122 H Fasting Glucose Estimat Average Glucose Hemoglobin A1c % Calcium 8.9 Total Bilirubin 0.8 AST 55 H ALT 46 H Alkaline Phosphatase 46 Total Protein 7.5 Albumin 3.9 Triglycerides Cholesterol LDL Cholesterol, Calc HDL Cholesterol TSH Urine Opiates Screen Urine Fentanyl Screen Ur Barbiturates Screen Ur Phencyclidine Scrn Ur Amphetamines Screen U Benzodiazepines Scrn Urine Cocaine Screen U Marijuana (THC) Screen Ethyl Alcohol < 10 HIV 1&2 Ab/P24 Ag 4thGn Influenza Type A (PCR) NEGATIVE Influenza Type B (PCR) NEGATIVE RSV RNA Qual (PCR) NEGATIVE SARS-CoV-2 RNA (RT-PCR) NEGATIVE 03/04/22 03/04/22 03/04/22 01:52 02:20 20:24 WBC RBC Hgb Hct MCV MCH MCHC RDW Plt Count MPV Immature Gran % (Auto) Neut % (Auto) Lymph % (Auto) [place] % (Auto) Eos % (Auto) Baso % (Auto) Lymph # (Auto) [place] # (Auto) Eos # (Auto) Baso # (Auto) Abs Immat Gran (auto) Absolute Neuts (auto) Absolute Nucleated RBC Nucleated RBC % (auto) Sodium Potassium Chloride Carbon Dioxide Anion Gap BUN Creatinine Estim Creat Clear Calc Estimated GFR POC Glucose 144 H 143 H Random Glucose Fasting Glucose Estimat Average Glucose Hemoglobin A1c % Calcium Total Bilirubin AST ALT Alkaline Phosphatase Total Protein Albumin Triglycerides Cholesterol LDL Cholesterol, Calc HDL Cholesterol TSH Urine Opiates Screen Not Detected Urine Fentanyl Screen POSITIVE H Ur Barbiturates Screen Not Detected Ur Phencyclidine Scrn Not Detected Ur Amphetamines Screen Not Detected U Benzodiazepines Scrn POSITIVE H Urine Cocaine Screen POSITIVE H U Marijuana (THC) Screen POSITIVE H Ethyl Alcohol HIV 1&2 Ab/P24 Ag 4thGn Influenza Type A (PCR) Influenza Type B (PCR) RSV RNA Qual (PCR) SARS-CoV-2 RNA (RT-PCR) 03/05/22 03/06/22 03/06/22 08:48 07:06 07:06 WBC RBC Hgb Hct MCV MCH MCHC RDW Plt Count MPV Immature Gran % (Auto) Neut % (Auto) Lymph % (Auto) [place] % (Auto) Eos % (Auto) Baso % (Auto) Lymph # (Auto) [place] # (Auto) Eos # (Auto) Baso # (Auto) Abs Immat Gran (auto) Absolute Neuts (auto) Absolute Nucleated RBC Nucleated RBC % (auto) Sodium 139 Potassium 3.6 Chloride 102 Carbon Dioxide 27 Anion Gap 14 BUN 9 Creatinine 0.73 Estim Creat Clear Calc 128.4 Estimated GFR > 60 POC Glucose Random Glucose Fasting Glucose 85 Estimat Average Glucose 114 Hemoglobin A1c % 5.6 Calcium 8.6 Total Bilirubin 0.5 AST 40 H ALT 38 Alkaline Phosphatase 48 D Total Protein 6.9 Albumin 3.5 Triglycerides 74 135 Cholesterol 136 142 LDL Cholesterol, Calc 83 79 HDL Cholesterol 39 36 TSH 1.05 Urine Opiates Screen Urine Fentanyl Screen Ur Barbiturates Screen Ur Phencyclidine Scrn Ur Amphetamines Screen U Benzodiazepines Scrn Urine Cocaine Screen U Marijuana (THC) Screen Ethyl Alcohol HIV 1&2 Ab/P24 Ag 4thGn Influenza Type A (PCR) Influenza Type B (PCR) RSV RNA Qual (PCR) SARS-CoV-2 RNA (RT-PCR) 03/06/22 07:06 WBC RBC Hgb Hct MCV MCH MCHC RDW Plt Count MPV Immature Gran % (Auto) Neut % (Auto) Lymph % (Auto) [place] % (Auto) Eos % (Auto) Baso % (Auto) Lymph # (Auto) [place] # (Auto) Eos # (Auto) Baso # (Auto) Abs Immat Gran (auto) Absolute Neuts (auto) Absolute Nucleated RBC Nucleated RBC % (auto) Sodium Potassium Chloride Carbon Dioxide Anion Gap BUN Creatinine Estim Creat Clear Calc Estimated GFR POC Glucose Random Glucose Fasting Glucose Estimat Average Glucose Hemoglobin A1c % Calcium Total Bilirubin AST ALT Alkaline Phosphatase Total Protein Albumin Triglycerides Cholesterol LDL Cholesterol, Calc HDL Cholesterol TSH Urine Opiates Screen Urine Fentanyl Screen Ur Barbiturates Screen Ur Phencyclidine Scrn Ur Amphetamines Screen U Benzodiazepines Scrn Urine Cocaine Screen U Marijuana (THC) Screen Ethyl Alcohol HIV 1&2 Ab/P24 Ag 4thGn Nonreactive Influenza Type A (PCR) Influenza Type B (PCR) RSV RNA Qual (PCR) SARS-CoV-2 RNA (RT-PCR) 03/06/22 17:50 Urine clean catch - Clean Catch Midstream Urine Culture - Final Escherichia coli Viridans streptococcus group 03/06/22 18:00 Throat Throat Culture - Final Streptococcus pyogenes (Grp A) DS: Summary Hospital Course Hospital Course: Admission to adult psychiatry for exacerbation of polysubstance use disorder, recurrent major depression. Suboxone was maintained. Abilify, Bupropion, Gabapentin and Trazodone were re-started. Pt had experienced significant decline and deterioration since our last opportunity to work with him. As a result, Section 35 was requested for consideration due to this decline. Time spent discussing smoking cessation with patient: 3 to 10 minutes Status at Discharge Functional status at discharge: independent ambulation Overall status at discharge: patient is progressing back to baseline Time Spent with Patient Time attestation: Total time spent providing and/or coordinating discharge services: 40 Time spent: Greater than 30 minutes Discharge Plan Discharge Anticipated Discharge Date/Time: 03/10/22 12:01 Patient Disposition: Xfer Other Discharge Diagnosis: Recurrent major depression, severe Opiate use disorder-severe Polysubstance use disorder-severe Referrals: [facility] [Other] (Walk in if needed) Discharge Medications: New amoxicillin 500 mg Capsule 500 mg PO Q12H Qty: 0 0RF metformin 500 mg Tablet 500 mg PO BIDWM Qty: 0 0RF trazodone 50 mg Tablet 50 mg PO BEDTIME PRN (Reason: Insomnia) Qty: 0 0RF nicotine (polacrilex) 2 mg Gum 4 mg buccal Q2H PRN (Reason: Nicotine Cravings) Qty: 0 0RF gabapentin 400 mg Capsule 800 mg PO TID Qty: 0 0RF tamsulosin 0.4 mg Capsule 0.4 mg PO BEDTIME Qty: 0 0RF amlodipine 10 mg Tablet 10 mg PO DAILY Qty: 0 0RF Protocol: Hold for SBP< HOLD for SBP < : 90 nicotine 21 mg/24 hr Patch 24 Hour 21 mg transdermal DAILY Qty: 0 0RF docusate sodium 100 mg Capsule 100 mg PO BID Qty: 0 0RF omeprazole 20 mg Capsule,Delayed Release(Dr/Ec) 20 mg PO DAILY@0630 Qty: 0 0RF hydroxyzine HCl 25 mg Tablet 25 mg PO Q6H PRN (Reason: Anxiety) Qty: 0 0RF Chloraseptic Throat [place] 1.4 % Aerosol,[place] 1 spray mucous membrane Q2H PRN (Reason: sore throat) Qty: 0 0RF aripiprazole [Abilify] 5 mg Tablet 5 mg PO DAILY Qty: 0 0RF bupropion HCl 300 mg Tablet Extended Release 24 Hr 300 mg PO DAILY Qty: 0 0RF Sore Throat (benzocaine-menth) 15-3.6 mg Lozenge 1 jonathan mucous membrane Q2H PRN (Reason: Sore Throat) Qty: 0 0RF clotrimazole 1 % Cream 1 appl topical BID Qty: 0 0RF Protocol: Apply to: Apply to: feet finasteride [Proscar] 5 mg Tablet 5 mg PO DAILY Qty: 0 0RF thiamine mononitrate (vit B1) 100 mg Tablet 100 mg PO DAILY Qty: 0 0RF Continued buprenorphine-naloxone [Suboxone] 8-2 mg film 1 strip sublingual TID Discharge Orders: Discharge Order (Routine); Ordered 03/10/22 Ordered By: Jenn Berry Diet: Advance to usual diet Activity on Discharge: As tolerated Stand Alone Forms: Patient Portal Discharge page, Community Support Care Plan Goals: Stable mood and behaviors Maintain sobriety, free of substances Health Concerns: Mood stability Behavioral stability Free of substance use Plan of Treatment: Section 35 is applied for with [facility] Assessment: Section 35 transfer to [facility] Discharge Date/Time: 03/10/22 12:30
== END 2022-03-10 12:30 | disposition other institution (70) | DRG 751 ==
LOC: HO.ED 15:54 → HO.PM5 16:16
PROVIDERS: Social Worker; Admitting Provider Psychiatry & Neurology Psychiatry; Emergency Provider Internal Medicine; Visit Provider Clinical Nurse Specialist Psychiatric/Mental Health, Adult
DX: F33.3 Major depressive disorder, recurrent, severe with psychotic symptoms (principal); R45.851 Suicidal ideations; F11.20 Opioid dependence, uncomplicated; Z20.822 Contact with and (suspected) exposure to COVID-19; Z59.02 Unsheltered homelessness; Z88.1 Allergy status to other antibiotic agents; Z79.899 Other long term (current) drug therapy
CPT/HCPCS: 0241U; 36415; 80053; 80061; 80307; 82077; 82947; 83036; 84443; 85025; 87070; 87086; 87088; 87147; 87186; 87389; 93005; 99285

== ENCOUNTER → 2022-05-12 12:55 | Outpatient (BNVA) | payer MEDICAID, SELFPAY | PROVIDERS: PCP Internal Medicine; Visit Provider Nurse Practitioner Psychiatric/Mental Health | DX: Z51.81 Encounter for therapeutic drug level monitoring (principal); F11.20 Opioid dependence, uncomplicated; F19.90 Other psychoactive substance use, unspecified, uncomplicated; F33.1 Major depressive disorder, recurrent, moderate | CPT/HCPCS: 80305; 99212 ==

== ENCOUNTER → 2022-05-21 11:35 | Outpatient (BNVA) | payer MEDICAID, SELFPAY | PROVIDERS: PCP Internal Medicine; Visit Provider Nurse Practitioner Psychiatric/Mental Health | DX: F11.20 Opioid dependence, uncomplicated (principal); F10.20 Alcohol dependence, uncomplicated; F12.20 Cannabis dependence, uncomplicated; F17.210 Nicotine dependence, cigarettes, uncomplicated; Z59.02 Unsheltered homelessness; Z51.81 Encounter for therapeutic drug level monitoring; Z79.899 Other long term (current) drug therapy | CPT/HCPCS: 80305; 99212 ==

== ENCOUNTER → 2022-06-07 14:45 | Outpatient (BNVA) | payer MEDICAID, SELFPAY | PROVIDERS: PCP Internal Medicine; Visit Provider Nurse Practitioner Psychiatric/Mental Health | DX: F11.20 Opioid dependence, uncomplicated (principal); F14.20 Cocaine dependence, uncomplicated; U07.0 Vaping-related disorder; F17.210 Nicotine dependence, cigarettes, uncomplicated; Z59.02 Unsheltered homelessness; Z51.81 Encounter for therapeutic drug level monitoring; Z79.899 Other long term (current) drug therapy | CPT/HCPCS: 99212 ==

== ENCOUNTER → 2022-06-21 15:27 | Outpatient (BNVA) | payer MEDICAID, SELFPAY | PROVIDERS: PCP Internal Medicine; Visit Provider Nurse Practitioner Psychiatric/Mental Health | DX: F11.20 Opioid dependence, uncomplicated (principal); F19.90 Other psychoactive substance use, unspecified, uncomplicated | CPT/HCPCS: 80305; 99212 ==

== ENCOUNTER 2022-07-16 01:41 | Inpatient (IN) | payer OTHER, SELFPAY ==
--- NOTE | 2022-07-16 | ECG_ITS ---
Test Reason : CECK FOR PROLONG QT Blood Pressure : / mmHG Vent. Rate : 073 BPM Atrial Rate : 073 BPM P-R Int : 174 ms QRS Dur : 150 ms QT Int : 442 ms P-R-T Axes : 039 005 052 degrees QTc Int : 486 ms Normal sinus rhythm Right bundle branch block Abnormal ECG When compared with ECG of 04-MAR-2022 11:10, Vent. rate has increased BY 25 BPM Nonspecific T wave abnormality no longer evident in Inferior leads Referred By: Dawson Mittal Electronically Signed By:Rodriguez Bourne
--- NOTE | ~2022-07-16 | XR_ITS ---
EXAMINATION: XR HAND, RIGHT CLINICAL INFORMATION: Index finger laceration COMPARISON: None available. TECHNIQUE: PA, lateral, and oblique views of the right hand. FINDINGS: No acute fracture or dislocation. Old trauma to the fifth metacarpal bone. Normal joint spaces. Normal soft tissues. XR/XR hand RT min 3V IMPRESSION: No acute fracture or dislocation.
[2022-07-16 01:50] VITALS: BP 185/114; PULSE 71; RESP 18; TEMP 36.7; O2SAT 99
[2022-07-16 01:54] VITALS: BP 160/80; BP 185/114; PULSE 71; PULSE 84; RESP 16; TEMP 36.7; O2SAT 98; O2SAT 99; BMI 19.0
[2022-07-16 02:12] LABS: MANUAL DIFF FLAG NO
[2022-07-16 02:16] LABS: Basophils Absolute Auto 0.1 X10*3/uL (0.0-0.2); Basophils Percent Auto 0.8 % (0-2); Eosinophils Absolute Auto 0.1 X10*3/uL (0.0-0.4); Hematocrit 41.8 % (42.0-52.0); Hemoglobin 14.2 g/dl (14.0-18.0); Imm Gran Abs Auto 0.01 X10*3/uL (0.00-0.03); Imm Gran Pct Auto 0.2 % (0.0-0.4); Lymphocytes Absolute Auto 1.6 X10*3/uL (1.2-4.9); Lymphocytes Percent Auto 25.5 % (20-40); Mean Corpuscular Hemoglobin 30.3 pg (27.0-33.0); Mean Corpuscular Volume 89.3 fL (80.0-98.0); Mean Platelet Volume 10.2 fL (9.4-12.4); Monocytes Absolute Auto 0.7 X10*3/uL (0.1-1.2); Monocytes Percent Auto 10.3 % (2-11); Neutrophils Absolute Auto 3.9 x10*3/uL (2.0-8.3); Neutrophils Percent Auto 61.2 % (45-73); Platelet Count 262 X10*3/uL (160-400); Red Blood Count 4.68 X10*6/uL (4.60-5.80); Red Cell Distribution Width 12.7 % (11.0-16.0); White Blood Count 6.4 X10*3/uL (4.8-10.8)
[2022-07-16 02:31] LABS: COVID-19 Test Negative (Negative); IDNOW Serial# 9DB6401D
[2022-07-16 02:36] LABS: Alanine Aminotransferase 41 U/L (0-40); Albumin Level 3.8 g/dL (3.5-5.0); Alkaline Phosphatase 61 U/L (39-117); Anion Gap 15 (12-20); Aspartate Amino Transferase 78 U/L (5-37); Bilirubin Total 0.6 mg/dL (0.0-1.0); Blood Urea Nitrogen 17 mg/dL (9-16); Calcium 8.8 mg/dL (8.4-10.2); Carbon Dioxide 25 mmol/L (22-29); Chloride 102 mmol/L (96-108); Creatinine Clr Calc Pharmacy 107.4; Estimated Glomerular Filt Rate > 60; Ethanol < 10 mg/dL; Glucose Random 101 mg/dL (60-115); Potassium 4.4 mmol/L (3.3-5.1); Sodium 138 mmol/L (135-145)
[2022-07-16 03:34] LABS: Appearance Urine Clear; Color Urine Yellow; Glucose Urine UA Negative (Negative); Leukocyte Esterase Urine Small (1+) (Negative); Nitrite Urine Positive (Negative); PH 5.5 (5.0-9.0); Specific Gravity - Urine 1.025 (1.005-1.025); UMIC TRIGGER UA YES; Urine Blood Negative (Negative); Urine Ketones Negative (Negative); Urine Protein Trace mg/dL (Neg-Trace)
[2022-07-16 03:38] LABS: Bacteria Urine 4+ (None Seen); Hyaline Casts Urine 0-2 /LPF (0-2); RBC Urine 0-2 /HPF (0-2); Squamous Epithelial Cell Urine 0-2 /HPF (0-2); WBC Urine 21-50 /HPF (0-5)
[2022-07-16 03:42] LABS: Amphetamine Screen Urine Not Detected (Not Detect); Barbiturates, Urine Not Detected (Not Detect); Benzodiazepines Screen Urine Not Detected (Not Detect); Cannabinoid Screen Urine POSITIVE (Not Detect); Cocaine Screen Urine POSITIVE (Not Detect); Fentanyl, urine POSITIVE (Not Detect); Opiate Screen Urine POSITIVE (Not Detect); Phencyclidine Screen Urine Not Detected (Not Detect)
[2022-07-16] MEDS: LORazepam 1 MG TABLET 2 MG PO (04:10)
[2022-07-16] MEDS: amLODIPine Besylate 5 MG TABLET PO (04:10)
[2022-07-16] MEDS: cephALEXin 500 MG CAPSULE PO ×2 (04:10→10:53)
--- NOTE | 2022-07-16 06:25 | PC.NURSE ---
Patient got transferred to ED POD at 031, patient showered, Ativan 2 mg PO, Amlodipine 5 mg po, and Keflex 500 mg administered at 0410, patient currently in bed appears sleeping, no distress observed/reported, labs ordered/completed/resulted, care consult ordered/pending evaluation, behavior non concerning, will continue to monitor.
--- NOTE | 2022-07-16 08:03 | ED_ITS ---
HPI - Psych General Chief Complaint: Psychiatric Symptoms Stated Complaint: Crisis Time Seen by Provider: 07/16/22 03:46 Source: patient Mode of arrival: EMS Limitations: other (Patient is somnolent) History of Present Illness HPI Narrative: 47-year-old male brought to the emergency department by ambulance for evaluation of suicidal ideation. According to the nursing notes, patient was found on the side of the road, stating that he wanted to . At the time my evaluation, the patient was somnolent and would not answer questions. Related Data Home Medications Medication Instructions Recorded Confirmed amlodipine 2.5 mg tablet 2.5 mg PO DAILY 07/16/22 07/16/22 aripiprazole 15 mg tablet 15 mg PO DAILY 07/16/22 07/16/22 buprenorphine 8 mg-naloxone 2 mg 1 film sublingual TID 07/16/22 07/16/22 sublingual film (Suboxone) gabapentin 400 mg capsule 800 mg PO TID 07/16/22 07/16/22 hydroxyzine pamoate 50 mg capsule 50 mg PO Q8H PRN Anxiety 07/16/22 07/16/22 lisinopril 20 mg tablet 20 mg PO DAILY 07/16/22 07/16/22 trazodone 150 mg tablet 150 mg PO BEDTIME 07/16/22 07/16/22 Previous Rx's Medication Instructions Recorded docusate sodium 100 mg capsule 100 mg PO BID #0 caps 03/10/22 finasteride 5 mg tablet (Proscar) 5 mg PO DAILY #0 tabs 03/10/22 metformin 500 mg tablet 500 mg PO BIDWM #0 tabs 03/10/22 nicotine (polacrilex) 2 mg gum 4 mg buccal Q2H PRN Nicotine 03/10/22 Cravings #0 ea nicotine 21 mg/24 hr daily 21 mg transdermal DAILY #0 ea 03/10/22 transdermal patch omeprazole 20 mg capsule,delayed 20 mg PO DAILY@0630 #0 caps 03/10/22 release tamsulosin 0.4 mg capsule 0.4 mg PO BEDTIME #0 caps 03/10/22 Allergies Allergy/AdvReac Type Severity Reaction Status Date / Time levofloxacin [From Levaquin] Allergy Intermediate rash Verified 06/21/22 15:30 Review of Systems Review of Systems: Yes all other systems are reviewed and are negative PMFSH Past Medical History Medical History Alcohol use Alcohol use Alcohol use disorder, severe, dependence BPH (benign prostatic hyperplasia) (~10/11/20) Chronic pain Diverticulitis DM II (diabetes mellitus, type II), controlled High cholesterol (~10/11/20) HTN (hypertension) Marijuana use MDD (major depressive disorder), recurrent episode, severe Neuropathy Opiate dependence Opioid use disorder Opioid use disorder Recurrent UTI Stimulant use disorder Tobacco use disorder Urinary hesitancy Social History Social History Household Members: None Household Members Other:: Homeless Housing: Homeless Do you presently have visiting nurse or other home services: No Unable to assess alcohol history related to: Refusing to respond Alcohol intake: current Alcohol intake frequency: 3 or more drinks per day Alcohol type: beer and hard liquor Patient Tobacco Use Status: Current everyday Tobacco user Tobacco use type: Cigarette Cigarette Packs Per Day: 2 Cigarettes Per Day: 40.0 Years Smoked: 20+ Smoked in Last 30 Days: Yes e-Cigarette/Vaping Use: Currently Using Second Hand Smoke Exposure: Yes Use of substances other than those prescribed or required for medical reasons: Yes Substance Use Type: Crack/Cocaine, Heroin and Marijuana Substance Use Frequency: Daily Advance Directives: No Advance Directives Information Provided: Yes service: No Current occupational status: unemployed Sexual orientation: Straight/Heterosexual Physical Exam Vital Signs: Vital Signs: Last Vital Signs Temp 98.1 F 07/16/22 01:54 Pulse 71 07/16/22 01:54 Resp 16 07/16/22 01:54 BP 185/114 H 07/16/22 01:54 Pulse Ox 99 07/16/22 01:54 O2 Del Method Room Air 07/16/22 01:54 O2 Flow Rate 98 07/16/22 01:50 BMI result Body Mass Index 19.0 Vital signs reviewed, the patient was hypertensive with a blood pressure of 185/114. General: Somnolent male patient, will not answer questions HEENT: Head normal cephalic atraumatic, pupils equal round reactive light, sclera contact however normal Neck: Supple Lungs: Clear to auscultation Heart: Regular rate rhythm, normal S1-S2, no murmurs rubs or gallops Abdomen: Soft, nontender, nondistended with normoactive bowel sounds Extremities: Moves all extremities symmetrically Neuro: Nonfocal Medications Administered Discontinued Medications Generic Name Dose Route Start Last Admin Trade Name Wan PRN Reason Stop Dose Admin Amlodipine Besylate 5 mg 07/16/22 03:50 07/16/22 04:10 Amlodipine Besylate 5 Mg Tablet PO 07/16/22 03:51 5 mg ONCE ONE Administration Protocol Cephalexin HCl 500 mg 07/16/22 03:50 07/16/22 04:10 Cephalexin 500 Mg Capsule PO 07/16/22 03:51 500 mg ONCE ONE Administration Lorazepam 2 mg 07/16/22 03:50 07/16/22 04:10 Lorazepam 1 Mg Tablet PO 07/16/22 03:51 2 mg ONCE STA Administration Medical Decision Making Medical Decision Making MDM Narrative: 47-year-old male who presents emergency department for evaluation of suicidal ideation. The patient was somnolent and would not answer questions. His physical examination was unremarkable. Did order laboratory evaluation to include CBC, CMP, alcohol level, urine drug screen, urinalysis, COVID-19. 0808: My interpretation patient's laboratory data is as follows: CBC was normal. AST and ALT elevated at 78 and 41. Urinalysis positive for nitrates, positive for leukocyte esterase. Microscopic revealed 0-2 RBCs, 21-50 WBCs, 0-2 squamous cells, 4+ bacteria. Urine culture from 03/06/2022 grew Streptococcus pyogenes, 01/28 grew E coli pansensitive. Urine tox screen was positive for opiates, fentanyl, cocaine, marijuana. Patient was ordered to get Keflex 500 mg orally. Will be started on Keflex 500 mg 3 times a day for 5 days for urinary tract infection. 0815: Start physician observation: Patient's medications were reconciled and I did order them. The patient will be kept in the emergency department Behavioral Health Unit until he can be evaluated by our care team counselors. Lab Data 07/16/22 02:08 07/16/22 02:08 Labs: Lab Results 07/16/22 07/16/22 07/16/22 Range/Units 02:08 02:08 02:08 WBC 6.4 (4.8-10.8) X10*3/uL RBC 4.68 (4.60-5.80) X10*6/uL Hgb 14.2 (14.0-18.0) g/dl Hct 41.8 L (42.0-52.0) % MCV 89.3 (80.0-98.0) fL MCH 30.3 (27.0-33.0) pg MCHC 34.0 (31.0-36.0) g/dl RDW 12.7 (11.0-16.0) % Plt Count 262 (160-400) X10*3/uL MPV 10.2 (9.4-12.4) fL Immature Gran % (Auto) 0.2 (0.0-0.4) % Neut % (Auto) 61.2 (45-73) % Lymph % (Auto) 25.5 (20-40) % [place] % (Auto) 10.3 (2-11) % Eos % (Auto) 2.0 (0-4) % Baso % (Auto) 0.8 (0-2) % Lymph # (Auto) 1.6 (1.2-4.9) X10*3/uL [place] # (Auto) 0.7 (0.1-1.2) X10*3/uL Eos # (Auto) 0.1 (0.0-0.4) X10*3/uL Baso # (Auto) 0.1 (0.0-0.2) X10*3/uL Abs Immat Gran (auto) 0.01 (0.00-0.03) X10*3/uL Absolute Neuts (auto) 3.9 (2.0-8.3) x10*3/uL Absolute Nucleated RBC 0.000 (0.0-0.012) X10*3/uL Nucleated RBC % (auto) 0.0 (0.0-0.2) /100WBC Sodium 138 (135-145) mmol/L Potassium 4.4 D (3.3-5.1) mmol/L Chloride 102 (96-108) mmol/L Carbon Dioxide 25 (22-29) mmol/L Anion Gap 15 (12-20) BUN 17 H (9-16) mg/dL Creatinine 0.78 (0.5-1.4) mg/dL Estim Creat Clear Calc 107.4 Estimated GFR > 60 Random Glucose 101 (60-115) mg/dL Calcium 8.8 (8.4-10.2) mg/dL Total Bilirubin 0.6 (0.0-1.0) mg/dL AST 78 H (5-37) U/L ALT 41 H (0-40) U/L Alkaline Phosphatase 61 (39-117) U/L Total Protein 7.0 (6.5-8.0) g/dL Albumin 3.8 (3.5-5.0) g/dL Urine Color Urine Appearance Urine pH (5.0-9.0) Ur Specific [place] (1.005-1.025) Urine Protein (Neg-Trace) mg/dL Urine Glucose (UA) (Negative) mg/dL Urine Ketones (Negative) mg/dL Urine Blood (Negative) Urine Nitrite (Negative) Ur Leukocyte Esterase (Negative) Urine RBC (0-2) /HPF Urine WBC (0-5) /HPF Ur Squamous Epith Cells (0-2) /HPF Urine Bacteria (None Seen) Hyaline Casts (0-2) /LPF Urine Opiates Screen (Not Detect) Urine Fentanyl Screen (Not Detect) Ur Barbiturates Screen (Not Detect) Ur Phencyclidine Scrn (Not Detect) Ur Amphetamines Screen (Not Detect) U Benzodiazepines Scrn (Not Detect) Urine Cocaine Screen (Not Detect) U Marijuana (THC) Screen (Not Detect) Ethyl Alcohol < 10 mg/dL COVID-19 (DLEIO) Negative (Negative) COVID-19 Clin Com See Note 07/16/22 07/16/22 Range/Units 03:23 03:23 WBC (4.8-10.8) X10*3/uL RBC (4.60-5.80) X10*6/uL Hgb (14.0-18.0) g/dl Hct (42.0-52.0) % MCV (80.0-98.0) fL MCH (27.0-33.0) pg MCHC (31.0-36.0) g/dl RDW (11.0-16.0) % Plt Count (160-400) X10*3/uL MPV (9.4-12.4) fL Immature Gran % (Auto) (0.0-0.4) % Neut % (Auto) (45-73) % Lymph % (Auto) (20-40) % [place] % (Auto) (2-11) % Eos % (Auto) (0-4) % Baso % (Auto) (0-2) % Lymph # (Auto) (1.2-4.9) X10*3/uL [place] # (Auto) (0.1-1.2) X10*3/uL Eos # (Auto) (0.0-0.4) X10*3/uL Baso # (Auto) (0.0-0.2) X10*3/uL Abs Immat Gran (auto) (0.00-0.03) X10*3/uL Absolute Neuts (auto) (2.0-8.3) x10*3/uL Absolute Nucleated RBC (0.0-0.012) X10*3/uL Nucleated RBC % (auto) (0.0-0.2) /100WBC Sodium (135-145) mmol/L Potassium (3.3-5.1) mmol/L Chloride (96-108) mmol/L Carbon Dioxide (22-29) mmol/L Anion Gap (12-20) BUN (9-16) mg/dL Creatinine (0.5-1.4) mg/dL Estim Creat Clear Calc Estimated GFR Random Glucose (60-115) mg/dL Calcium (8.4-10.2) mg/dL Total Bilirubin (0.0-1.0) mg/dL AST (5-37) U/L ALT (0-40) U/L Alkaline Phosphatase (39-117) U/L Total Protein (6.5-8.0) g/dL Albumin (3.5-5.0) g/dL Urine Color Yellow Urine Appearance Clear Urine pH 5.5 (5.0-9.0) Ur Specific [place] 1.025 (1.005-1.025) Urine Protein Trace (Neg-Trace) mg/dL Urine Glucose (UA) Negative (Negative) mg/dL Urine Ketones Negative (Negative) mg/dL Urine Blood Negative (Negative) Urine Nitrite Positive H (Negative) Ur Leukocyte Esterase Small (1+) H (Negative) Urine RBC 0-2 (0-2) /HPF Urine WBC 21-50 H (0-5) /HPF Ur Squamous Epith Cells 0-2 (0-2) /HPF Urine Bacteria 4+ (None Seen) Hyaline Casts 0-2 (0-2) /LPF Urine Opiates Screen POSITIVE H (Not Detect) Urine Fentanyl Screen POSITIVE H (Not Detect) Ur Barbiturates Screen Not Detected (Not Detect) Ur Phencyclidine Scrn Not Detected (Not Detect) Ur Amphetamines Screen Not Detected (Not Detect) U Benzodiazepines Scrn Not Detected (Not Detect) Urine Cocaine Screen POSITIVE H (Not Detect) U Marijuana (THC) Screen POSITIVE H (Not Detect) Ethyl Alcohol mg/dL COVID-19 (DELIO) (Negative) COVID-19 Clin Com Discharge Plan Discharge Clinical Impression: Suicidal ideation, Urinary tract infection, Narcotic drug use, Cocaine use disorder Patient Disposition: Still a Patient Instructions: Urinary Tract Infection in Men (ED) Additional Instructions: Your urine is consistent with urinary tract infection Take Keflex 500 mg pills, 1 pill 3 times a day for 5 days. Your drug screen was positive for fentanyl, cocaine and marijuana Follow the care team instructions Follow-up with your doctor in 2 days. Please return to the emergency department if your symptoms get worse or if you develop any symptoms that are concerning to you. Prescriptions: No Action metformin 500 mg Tablet 500 mg PO BIDWM Qty: 0 0RF nicotine (polacrilex) 2 mg Gum 4 mg buccal Q2H PRN (Reason: Nicotine Cravings) Qty: 0 0RF tamsulosin 0.4 mg Capsule 0.4 mg PO BEDTIME Qty: 0 0RF nicotine 21 mg/24 hr Patch 24 Hour 21 mg transdermal DAILY Qty: 0 0RF docusate sodium 100 mg Capsule 100 mg PO BID Qty: 0 0RF omeprazole 20 mg Capsule,Delayed Release(Dr/Ec) 20 mg PO DAILY@0630 Qty: 0 0RF finasteride [Proscar] 5 mg Tablet 5 mg PO DAILY Qty: 0 0RF buprenorphine-naloxone [Suboxone] 8-2 mg film 1 film sublingual TID lisinopril 20 mg tablet 20 mg PO DAILY gabapentin 400 mg capsule 800 mg PO TID hydroxyzine pamoate 50 mg capsule 50 mg PO Q8H PRN (Reason: Anxiety) amlodipine 2.5 mg tablet 2.5 mg PO DAILY trazodone 150 mg tablet 150 mg PO BEDTIME aripiprazole 15 mg tablet 15 mg PO DAILY Interventions: [place]-Suicide Risk Severity Scale Last Done: 07/16/22 01:57
--- NOTE | 2022-07-16 09:20 | HE.PHANOTE ---
Attempted to confirm patient's suboxone dose with patient. Patient could not confirm. Patient goes to [facility] for suboxone. Mer Sanchez reported patient has not been on suboxone for a little while and has no current dose. Marlen quinones gave him a small suppy of 2/0.5 mg suboxone after relapse but the pharmacy did not have record of him get getting the suboxone.
--- NOTE | 2022-07-16 09:43 | PC.NURSE ---
Pt is asleep, will not communicate with staff when aroused by choice. Holding meds at this time until pt is more arousable.
[2022-07-16] MEDS: Gabapentin 400 MG CAPSULE 800 MG PO (10:52)
[2022-07-16] MEDS: Finasteride 5 MG TABLET PO (10:52)
[2022-07-16] MEDS: Omeprazole 20 MG CAPSULE.DR PO (10:52)
[2022-07-16] MEDS: ARIPiprazole 15 MG TABLET PO (10:53)
[2022-07-16] MEDS: metFORMIN HCl 500 MG TABLET PO (10:53)
[2022-07-16] MEDS: Docusate Sodium 100 MG CAPSULE PO (10:53)
[2022-07-16] MEDS: amLODIPine Besylate 2.5 MG TABLET PO (10:53)
[2022-07-16] MEDS: lisinopriL 20 MG TABLET PO (10:53)
[2022-07-16] MEDS: Nicotine 21 MG PATCH.TD24 TRANSDERMA (10:54)
--- NOTE | 2022-07-16 11:01 | MHC.CARE ---
patient is an inpatient psych bed search. voluntary
--- NOTE | 2022-07-16 12:17 | MHC.CARE ---
ana will be [place] [facility]/ unit to be determined
[2022-07-16 16:52] VITALS: RESP 16
--- NOTE | 2022-07-16 17:26 | PC.ADMIT ---
pt is 47 year old male who presented to [facility] with SI with plan. pt tox screen was positive for opioids, cocaine, and THC.pt has a PMH of inpatient hospitalization, substance abuse, OD, and diabetes. during admission, pt just wanted to sleep and refused vitals. pt did not sign legals, but has a CV. start treatment and promote safety
[2022-07-17] MEDS: Omeprazole 20 MG CAPSULE.DR PO (06:17)
[2022-07-17 07:32] LABS: Estimated Average Glucose 108 mg/dL; Hemoglobin A1c % 5.4 %
[2022-07-17 07:41] LABS: Cholesterol 150 mg/dL; HDL Cholesterol 39 mg/dL; LDL Cholesterol Calculated 90 mg/dl; Triglycerides 106 mg/dL
[2022-07-17] MEDS: lisinopriL 20 MG TABLET PO (09:01)
[2022-07-17] MEDS: Finasteride 5 MG TABLET PO (09:01)
[2022-07-17] MEDS: cephALEXin 500 MG CAPSULE PO ×3 (09:01→21:57)
[2022-07-17] MEDS: Gabapentin 400 MG CAPSULE 800 MG PO ×3 (09:02→21:57)
[2022-07-17] MEDS: ARIPiprazole 15 MG TABLET PO (09:02)
[2022-07-17] MEDS: metFORMIN HCl 500 MG TABLET PO ×2 (09:02→18:27)
[2022-07-17] MEDS: Docusate Sodium 100 MG CAPSULE PO ×2 (09:02→21:57)
[2022-07-17] MEDS: amLODIPine Besylate 2.5 MG TABLET PO (09:02)
[2022-07-17 09:10] VITALS: BP 166/90; PULSE 70; RESP 16; O2SAT 98
[2022-07-17] MEDS: LORazepam 1 MG TABLET PO (09:13)
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
[2022-07-17 18:00] VITALS: RESP 16
[2022-07-17] MEDS: Buprenorphine/Naloxone 8/2 mg FILM 1 FILM SUBLINGUAL ×2 (18:27→21:56)
[2022-07-17 21:56] LABS: Glucose, Whole Blood 115 mg/dL (60-115)
[2022-07-17] MEDS: traZODone HCL 50 MG TABLET 150 MG PO (21:57)
[2022-07-17] MEDS: Tamsulosin HCL 0.4 MG CAPSULE PO (21:57)
[2022-07-17 22:19] VITALS: BP 167/90; PULSE 71; TEMP 36.4; O2SAT 99
--- NOTE | 2022-07-17 23:08 | PC.NURSE ---
pt has a bump on left hand. pt reports its from IV drug use. pt reports pain 4 out of 10.
[2022-07-18] MEDS: Omeprazole 20 MG CAPSULE.DR PO (06:08)
[2022-07-18] MEDS: Finasteride 5 MG TABLET PO (08:46)
[2022-07-18] MEDS: lisinopriL 20 MG TABLET PO (08:46)
[2022-07-18] MEDS: metFORMIN HCl 500 MG TABLET PO (08:46)
[2022-07-18] MEDS: ARIPiprazole 15 MG TABLET PO (08:46)
[2022-07-18] MEDS: cephALEXin 500 MG CAPSULE PO ×2 (08:46→13:51)
[2022-07-18] MEDS: Gabapentin 400 MG CAPSULE 800 MG PO ×2 (08:46→13:51)
[2022-07-18] MEDS: Docusate Sodium 100 MG CAPSULE PO (08:46)
[2022-07-18] MEDS: Buprenorphine/Naloxone 8/2 mg FILM 1 FILM SUBLINGUAL ×2 (08:46→13:51)
[2022-07-18] MEDS: amLODIPine Besylate 2.5 MG TABLET PO (08:50)
[2022-07-18 08:51] VITALS: BP 147/89; PULSE 87
--- NOTE | 2022-07-18 11:08 | HO.PSYCHPN ---
Subjective Subjective Date of Service: 07/18/22 Reason For Visit: Depression/SI Interim History: Met with patient; discussed with team Patient to little more communicative and thankful for Suboxone restarting. He also asks for Wellbutrin to be restarted. Patient thinks withdrawal is overall ending. Wants to go to a [facility] when stable. Patient is depressed but feels he is getting a little better. Patient showed scientific technical writer his right index finger with distal laceration at most distal joint; patient has sensations but limited mobility. Mental Status Exam Mental Status Exam Narrative: Pt is sleepy, but arousable and fully oriented; behavior is calm; patient is not in distress; dressed in hospital attire, scruffy; mood is described as depressed and affect blunted; eye contact appropriate; Speech is normal rate but a little soft in volume; normal prosody and not pressured; psychomotor retardation present; thought process is goal directed; Thought content is on tx, passive SI; otherwise pertinent to relevant topics and without any delusional content, paranoid ideations or grandiosity; intermittent passive sI; no HI. No AVH; Patients insight and judgment impaired but improving. Diagnostics Vital Signs (24Hr): Vital Signs - 24 hr 07/17/22 18:00 07/17/22 22:19 07/18/22 08:51 Temperature 97.6 F Pulse Rate 71 87 Respiratory Rate 16 Blood Pressure 167/90 H 147/89 H Pulse Oximetry 99 Oxygen Delivery Method Room Air BMI result Body Mass Index 19.0 Labs 07/16/22 02:08 07/16/22 02:08 Labs: Laboratory Results - last 48 hr 07/17/22 07/17/22 07/17/22 07:10 07:10 21:52 POC Glucose 115 Estimat Average Glucose 108 Hemoglobin A1c % 5.4 Triglycerides 106 Cholesterol 150 LDL Cholesterol, Calc 90 HDL Cholesterol 39 Medications Medications Current Medications Acetaminophen (Acetaminophen 325 Mg Tablet) 650 mg PO Q6H PRN PRN Reason: Headache/Pain Mild Scale (1-3) Al Hydroxide/Mg Hydroxide (Magnesium Hydrox/Alum Hydrox 30 Ml Oral.Susp) 30 ml PO Q6H PRN PRN Reason: Heartburn/Nausea Amlodipine Besylate (Amlodipine Besylate 2.5 Mg Tablet) 2.5 mg PO DAILY [facility]; Protocol Last Admin: 07/18/22 08:50 Dose: 2.5 mg Aripiprazole (Aripiprazole 15 Mg Tablet) 15 mg PO DAILY [facility] Last Admin: 07/18/22 08:46 Dose: 15 mg Buprenorphine/Naloxone (Buprenorphine/Naloxone 8/2 Mg Film) 1 film SUBLINGUAL TID [facility] Last Admin: 07/18/22 08:46 Dose: 1 film Cephalexin HCl (Cephalexin 500 Mg Capsule) 500 mg PO TID [facility] Stop: 07/20/22 23:59 Last Admin: 07/18/22 08:46 Dose: 500 mg Docusate Sodium (Docusate Sodium 100 Mg Capsule) 100 mg PO BID [facility] Last Admin: 07/18/22 08:46 Dose: 100 mg Finasteride (Finasteride 5 Mg Tablet) 5 mg PO DAILY [facility] Last Admin: 07/18/22 08:46 Dose: 5 mg Gabapentin (Gabapentin 400 Mg Capsule) 800 mg PO TID [facility] Last Admin: 07/18/22 08:46 Dose: 800 mg Hydroxyzine HCl (Hydroxyzine Hcl 50 Mg Tablet) 50 mg PO Q8H PRN PRN Reason: Anxiety Insulin Human Lispro (Insulin Lispro 100 Unit/Ml 3 Ml Vial) 0 unit SUBCUT QIDACHS [facility]; Protocol Last Admin: 07/18/22 10:25 Dose: Not Given Lisinopril (Lisinopril 20 Mg Tablet) 20 mg PO DAILY [facility]; Protocol Last Admin: 07/18/22 08:46 Dose: 20 mg Lorazepam (Lorazepam 1 Mg Tablet) 1 mg PO Q2H PRN PRN Reason: CIWA 6-10 Last Admin: 07/17/22 09:13 Dose: 1 mg Lorazepam (Lorazepam 1 Mg Tablet) 2 mg PO Q2H PRN PRN Reason: CIWA 11 and above Magnesium Hydroxide (Milk Of Magnesia 30 Ml Oral.Susp) 30 ml PO DAILY PRN PRN Reason: Constipation Metformin HCl (Metformin Hcl 500 Mg Tablet) 500 mg PO BIDWM [facility] Last Admin: 07/18/22 08:46 Dose: 500 mg Nicotine (Nicotine 21 Mg Patch.Td24) 21 mg TRANSDERMA DAILY [facility] Last Admin: 07/18/22 08:51 Dose: Not Given Nicotine Polacrilex (Nicotine Polacrilex 2 Mg Gum) 4 mg BUCCAL Q2H PRN PRN Reason: Nicotine Cravings Omeprazole (Omeprazole 20 Mg Capsule.Dr) 20 mg PO DAILY@0630 [facility] Last Admin: 07/18/22 06:08 Dose: 20 mg Tamsulosin HCl (Tamsulosin Hcl 0.4 Mg Capsule) 0.4 mg PO BEDTIME [facility] Last Admin: 07/17/22 21:57 Dose: 0.4 mg Trazodone HCl (Trazodone Hcl 50 Mg Tablet) 150 mg PO BEDTIME [facility] Last Admin: 07/17/22 21:57 Dose: 150 mg Allergies Allergies Allergy/AdvReac Type Severity Reaction Status Date / Time levofloxacin [From Levaquin] Allergy Intermediate rash Verified 06/21/22 15:30 Assessment & Plan Assessment & Plan (1) MDD (major depressive disorder), recurrent episode, moderate: Status: Acute Code(s): F33.1 - Major depressive disorder, recurrent, moderate (2) Opiate dependence: Status: Acute Code(s): F11.20 - Opioid dependence, uncomplicated (3) Recurrent UTI: Status: Acute Code(s): N39.0 - Urinary tract infection, site not specified (4) DM II (diabetes mellitus, type II), controlled: Status: Acute Code(s): E11.9 - Type 2 diabetes mellitus without complications (5) Neuropathy: Status: Acute Code(s): G62.9 - Polyneuropathy, unspecified Plan Patient is a 47-year-old male with history of depression, polysubstance abuse, on Suboxone, who presents for suicidal ideation in the face of withdrawal from opioids, cocaine. Patient presentation on This admission is very similar to previous admissions. Will continue home medications; will continue Suboxone; patient understands risk of precipitated withdrawal but wants to restart Suboxone now Hospital course: 07/18 patient a little better; withdrawal subsiding; has not scored on CIWA; asks for Wellbutrin to be started and hopes to get into [facility] upon discharge. -Patient showed scientific technical writer his right index finger with distal laceration at most distal joint; patient has sensations but limited mobility; orthopedic consult ordered Plan: CV Q 15 minute checks Ordered orthopedic consult to assess right index finger, DIP joint Restart Wellbutrin XL 150 mg daily Continue home medications Continue Suboxone 8 mg t.i.d.; patient understands risks of precipitated withdrawal but wants to continue Suboxone anyone Will continue interview when patient is more amenable Likely DC CIWA Patient educated on: diagnosis, medication risk/benefits and medical condition Informed Consent: understands Reason for contiued inpatient stay Substantial Risk for: rapid decompensation Time Spent With Patient Time: Total time managing care of this patient today ____ minutes.
[2022-07-18 16:34] VITALS: RESP 16
--- NOTE | 2022-07-18 20:45 | PC.NURSE ---
pt refused POC at 1630 and 2100. pt refused vital signs, saying he just wants to sleep. pt reports his fingers hurts and he just wants to sleep
[2022-07-19 06:00] VITALS: BP 157/98; PULSE 60; RESP 18; O2SAT 98
[2022-07-19] MEDS: Omeprazole 20 MG CAPSULE.DR PO (06:22)
--- NOTE | 2022-07-19 07:52 | P.CONOP_ITS ---
History of Present Illness [facility] Consult date: 07/19/22 Chief complaint: Depression/SI Narrative: Mr. Sanchez is a 47 yo right and dominant male with a PMH significant for depression, polysubstance abuse, on Suboxone, who presents for suicidal ideation in the face of withdrawal from opioids, cocaine. Currently admitted to since 07/17/22 afer being found on the side of the road and stating that he wanted to . During his admission he was found to have a laceration over the DIP of the right index finger. He denies any injury and reports that this was due to cold exposure. Reports that this has been like this for the past week and a half. Limited ROM at the DIP. Orthopedics was consulted for further evaluation and treatment. Review of Systems Review of Systems: Yes all other systems are reviewed and are negative PMFSH Past Medical History Medical History Alcohol use Alcohol use Alcohol use disorder, severe, dependence BPH (benign prostatic hyperplasia) (~10/11/20) Chronic pain Diverticulitis DM II (diabetes mellitus, type II), controlled High cholesterol (~10/11/20) HTN (hypertension) Marijuana use MDD (major depressive disorder), recurrent episode, severe Neuropathy Opiate dependence Opioid use disorder Opioid use disorder Recurrent UTI Stimulant use disorder Tobacco use disorder Urinary hesitancy Social History Social History Household Members: None Household Members Other:: Homeless Housing: Homeless Do you presently have visiting nurse or other home services: No Unable to assess alcohol history related to: Refusing to respond Alcohol intake: current Alcohol intake frequency: 3 or more drinks per day Al cohol type: beer and hard liquor Patient Tobacco Use Status: Current everyday Tobacco user Tobacco use type: Cigarette Cigarette Packs Per Day: 2 Cigarettes Per Day: 40.0 Years Smoked: 20+ Smoked in Last 30 Days: Yes e-Cigarette/Vaping Use: Currently Using Patient Interested in Nicotine Replacement: Yes (patch and gum) Patient Given Instructions on How to Stop Smoking: Yes Date Education Initiated: 07/16/22 Second Hand Smoke Exposure: Yes Use of substances other than those prescribed or required for medical reasons: Yes Substance Use Type: Crack/Cocaine, Marijuana and Opiates Substance Use Frequency: Chronic Longstanding Last Used Substance: Just Prior to Admission Currently Displaying Signs/Symptoms of Drug Intoxication Withdrawal: No Any prior treatment program specific to substance use: Yes Have you been hit, kicked, punched, or otherwise hurt by someone within the past year? If so, by whom?: No Do you feel safe in your current relationship?: No Current Relationship Is there a partner from a previous relationship who is making you feel unsafe now?: No Are you made to feel afraid or neglected: No Advance Directives: No Advance Directives Information Provided: Yes Healthcare Proxy: No Guardian: No Do you have thoughts of harming others: None Do you have a plan to hurt others: No Plan Recently lost weight without trying: No How much weight loss: Not applicable Eating poorly because of decreased appetite: No Nutrition screen score: 0 Nutrition Risks: Diabetes new onset/Uncontrolled Poor oral hygiene: Yes service: No Current occupational status: unemployed Sexual orientation: Straight/Heterosexual Meds Allergies Allergy/AdvReac Type Severity Reaction Status Date / Time levofloxacin [From Levaquin] Allergy Intermediate rash Verified 06/21/22 15:30 Active Medications: Current Medications Acetaminophen (Acetaminophen 325 Mg Tablet) 650 mg PO Q6H PRN PRN Reason: Headache/Pain Mild Scale (1-3) Al Hydroxide/Mg Hydroxide (Magnesium Hydrox/Alum Hydrox 30 Ml Oral.Susp) 30 ml PO Q6H PRN PRN Reason: Heartburn/Nausea Amlodipine Besylate (Amlodipine Besylate 2.5 Mg Tablet) 2.5 mg PO DAILY [facility]; Protocol Last Admin: 07/18/22 08:50 Dose: 2.5 mg Aripiprazole (Aripiprazole 15 Mg Tablet) 15 mg PO DAILY [facility] Last Admin: 07/18/22 08:46 Dose: 15 mg Buprenorphine/Naloxone (Buprenorphine/Naloxone 8/2 Mg Film) 1 film SUBLINGUAL TID [facility] Last Admin: 07/18/22 21:49 Dose: Not Given Bupropion HCl (Bupropion Hcl Xl 150 Mg Tab.Er.24h) 150 mg PO DAILY [facility] Cephalexin HCl (Cephalexin 500 Mg Capsule) 500 mg PO TID [facility] Stop: 07/20/22 23:59 Last Admin: 07/18/22 21:49 Dose: Not Given Docusate Sodium (Docusate Sodium 100 Mg Capsule) 100 mg PO BID [facility] Last Admin: 04/09/23 21:49 Dose: Not Given Finasteride (Finasteride 5 Mg Tablet) 5 mg PO DAILY [facility] Last Admin: 07/18/22 08:46 Dose: 5 mg Gabapentin (Gabapentin 400 Mg Capsule) 800 mg PO TID [facility] Last Admin: 07/18/22 21:50 Dose: Not Given Hydroxyzine HCl (Hydroxyzine Hcl 50 Mg Tablet) 50 mg PO Q8H PRN PRN Reason: Anxiety Insulin Human Lispro (Insulin Lispro 100 Unit/Ml 3 Ml Vial) 0 unit SUBCUT QIDACHS [facility]; Protocol Last Admin: 07/19/22 07:41 Dose: Not Given Lisinopril (Lisinopril 20 Mg Tablet) 20 mg PO DAILY [facility]; Protocol Last Admin: 07/18/22 08:46 Dose: 20 mg Lorazepam (Lorazepam 1 Mg Tablet) 1 mg PO Q2H PRN PRN Reason: CIWA 6-10 Last Admin: 07/17/22 09:13 Dose: 1 mg Lorazepam (Lorazepam 1 Mg Tablet) 2 mg PO Q2H PRN PRN Reason: CIWA 11 and above Magnesium Hydroxide (Milk Of Magnesia 30 Ml Oral.Susp) 30 ml PO DAILY PRN PRN Reason: Constipation Metformin HCl (Metformin Hcl 500 Mg Tablet) 500 mg PO BIDWM [facility] Last Admin: 07/18/22 21:49 Dose: Not Given Nicotine (Nicotine 21 Mg Patch.Td24) 21 mg TRANSDERMA DAILY [facility] Last Admin: 07/18/22 08:51 Dose: Not Given Nicotine Polacrilex (Nicotine Polacrilex 2 Mg Gum) 4 mg BUCCAL Q2H PRN PRN Reason: Nicotine Cravings Omeprazole (Omeprazole 20 Mg Capsule.Dr) 20 mg PO DAILY@0630 [facility] Last Admin: 07/19/22 06:22 Dose: 20 mg Tamsulosin HCl (Tamsulosin Hcl 0.4 Mg Capsule) 0.4 mg PO BEDTIME [facility] Last Admin: 07/18/22 21:50 Dose: Not Given Trazodone HCl (Trazodone Hcl 50 Mg Tablet) 150 mg PO BEDTIME [facility] Last Admin: 07/18/22 21:50 Dose: Not Given Home Medications Medication Instructions Recorded Confirmed Last Taken Type amlodipine 2.5 mg tablet 2.5 mg PO DAILY 07/16/22 07/16/22 Unknown History aripiprazole 15 mg tablet 15 mg PO DAILY 07/16/22 07/16/22 Unknown History gabapentin 400 mg capsule 800 mg PO TID 07/16/22 07/16/22 Unknown History hydroxyzine pamoate 50 mg capsule 50 mg PO Q8H PRN Anxiety 07/16/22 07/16/22 Unknown History lisinopril 20 mg tablet 20 mg PO DAILY 07/16/22 07/16/22 Unknown History trazodone 150 mg tablet 150 mg PO BEDTIME 07/16/22 07/16/22 Unknown History Physical Exam Vital Signs: Vital Signs: Last Vital Signs Temp 97.6 F 07/17/22 22:19 Pulse 87 07/18/22 08:51 Resp 16 07/18/22 16:34 BP 147/89 H 07/18/22 08:51 Pulse Ox 99 07/17/22 22:19 O2 Del Method Room Air 07/17/22 22:19 O2 Flow Rate 98 07/16/22 01:50 BMI result Body Mass Index 19.0 Const: General: cooperative, healthy appearing and no acute distress Resp: Effort & Inspection: normal respiratory effort and able to speak in complete sentences Cardio: Rate: regular rate Peripheral pulses: Peripheral pulses 2+ throughout GI: Palpation (GI): Soft to palpation Skin: Lesions: no lesions Rashes: no rashes Extrem: Other: Right hand No erythema or edema. No signs of infection. Right index finger healing laceration with no signs of infection along the volar aspect of the DIP. Possible tendon involvement put with healing tissue difficult to tell. Sensation is slightly deminished. Reports tingle radial and ulnar digital nerve distribution. Able to perform full flextion and extension at the MCP and PIP. Able to perform slight flexion and exension at DIP. Able to make a closed fist. Results Labs 07/16/22 02:08 07/16/22 02:08 Labs: H & H 07/16/22 Range/Units 02:08 Hgb 14.2 (14.0-18.0) g/dl Hct 41.8 L (42.0-52.0) % All other labs normal. Assessment and Plan (1) Suicidal ideation: Status: Acute (2) Narcotic drug use: Status: Acute (3) Cocaine use disorder: Status: Acute (4) Opiate dependence: Status: Acute (5) Polysubstance use disorder: Status: Acute (6) MDD (major depressive disorder), recurrent episode, moderate: Status: Acute (7) DM II (diabetes mellitus, type II), controlled: Status: Acute (8) Drug-induced psychotic disorder: Status: Acute (9) Opioid use disorder: Status: Acute (10) Stimulant use disorder: Status: Acute (11) Hepatitis C: Status: Acute (12) Laceration of index finger: Status: Acute X-rays ordered and pending Due to the nature of the injury occurring a week and a half ago there is no orthopedic intervention warrented at this time He may followup out patient once discharged Occupational therapy for ROM. Time Spent With Patient Time: Total time managing care of this patient today ____ minutes. Procedures Date of Service Date of Service: 07/19/22
[2022-07-19] MEDS: Docusate Sodium 100 MG CAPSULE PO ×2 (08:05→20:43)
[2022-07-19] MEDS: buPROPion HCl XL 150 MG TAB.ER.24H PO (08:05)
[2022-07-19] MEDS: metFORMIN HCl 500 MG TABLET PO ×2 (08:05→17:03)
[2022-07-19] MEDS: Finasteride 5 MG TABLET PO (08:05)
[2022-07-19] MEDS: Gabapentin 400 MG CAPSULE 800 MG PO ×3 (08:05→20:42)
[2022-07-19] MEDS: ARIPiprazole 15 MG TABLET PO (08:05)
[2022-07-19] MEDS: Buprenorphine/Naloxone 8/2 mg FILM 1 FILM SUBLINGUAL ×3 (08:05→20:42)
[2022-07-19] MEDS: cephALEXin 500 MG CAPSULE PO ×3 (08:05→20:43)
[2022-07-19] MEDS: lisinopriL 20 MG TABLET PO (08:06)
[2022-07-19] MEDS: amLODIPine Besylate 2.5 MG TABLET PO (08:06)
[2022-07-19 16:17] VITALS: BP 146/77; PULSE 74; TEMP 36.6; O2SAT 96
--- NOTE | 2022-07-19 16:22 | P.PNPSI_ITS ---
Subjective Subjective Date of Service: 07/19/22 Reason For Visit: Depression/SI Interim History: Met with patient; discussed with staff; reviewed ortho note Patient a little more willing to engage; says he is so-so but overall little better. He would like Wellbutrin to be increased back to home dose; administrative underwriter agreed to increase to 300 and then will go on from there. Discussed treatment and patient still would like to get into his [facility]; patient will push himself to engage in milieu more Mental Status Exam Mental Status Exam Narrative: Patient alert, oriented; behavior is engageable, calm; patient is not in distress; dressed in hospital attire, scruffy; mood is described as so-so and affect constricted; eye contact appropriate; Speech is normal rate, volume and prosody; psychomotor retardation remains; thought process is goal directed; Thought content is on tx; otherwise pertinent to relevant topics and without any delusional content, paranoid ideations or grandiosity; intermittent passive sI remains but dissipated; no HI. No AVH; Patients insight and judgment impaired but improving. Diagnostics Vital Signs (24Hr): Vital Signs - 24 hr 07/18/22 16:34 07/19/22 06:00 07/19/22 16:17 Temperature 97.8 F Pulse Rate 60 74 Respiratory Rate 16 18 Blood Pressure 157/98 H 146/77 H Pulse Oximetry 98 96 Oxygen Delivery Method Room Air Room Air BMI result Body Mass Index 19.0 Labs 07/16/22 02:08 07/16/22 02:08 Labs: Laboratory Results - last 48 hr 07/17/22 21:52 POC Glucose 115 Imaging Radiology Impressions: ITS Impressions Hand X-Ray 07/19/22 07:47 IMPRESSION: No acute fracture or dislocation. Medications Medications Current Medications Acetaminophen (Acetaminophen 325 Mg Tablet) 650 mg PO Q6H PRN PRN Reason: Headache/Pain Mild Scale (1-3) Al Hydroxide/Mg Hydroxide (Magnesium Hydrox/Alum Hydrox 30 Ml Oral.Susp) 30 ml PO Q6H PRN PRN Reason: Heartburn/Nausea Amlodipine Besylate (Amlodipine Besylate 2.5 Mg Tablet) 2.5 mg PO DAILY [facility]; Protocol Last Admin: 07/19/22 08:06 Dose: 2.5 mg Aripiprazole (Aripiprazole 15 Mg Tablet) 15 mg PO DAILY [facility] Last Admin: 07/19/22 08:05 Dose: 15 mg Buprenorphine/Naloxone (Buprenorphine/Naloxone 8/2 Mg Film) 1 film SUBLINGUAL TID [facility] Last Admin: 07/19/22 14:00 Dose: 1 film Bupropion HCl (Bupropion Hcl Xl 150 Mg Tab.Er.24h) 150 mg PO DAILY [facility] Last Admin: 07/19/22 08:05 Dose: 150 mg Cephalexin HCl (Cephalexin 500 Mg Capsule) 500 mg PO TID [facility] Stop: 07/20/22 23:59 Last Admin: 07/19/22 14:00 Dose: 500 mg Docusate Sodium (Docusate Sodium 100 Mg Capsule) 100 mg PO BID [facility] Last Admin: 07/19/22 08:05 Dose: 100 mg Finasteride (Finasteride 5 Mg Tablet) 5 mg PO DAILY [facility] Last Admin: 07/19/22 08:05 Dose: 5 mg Gabapentin (Gabapentin 400 Mg Capsule) 800 mg PO TID [facility] Last Admin: 07/19/22 14:00 Dose: 800 mg Hydroxyzine HCl (Hydroxyzine Hcl 50 Mg Tablet) 50 mg PO Q8H PRN PRN Reason: Anxiety Insulin Human Lispro (Insulin Lispro 100 Unit/Ml 3 Ml Vial) 0 unit SUBCUT QIDACHS [facility]; Protocol Last Admin: 07/19/22 12:21 Dose: Not Given Lisinopril (Lisinopril 20 Mg Tablet) 20 mg PO DAILY [facility]; Protocol Last Admin: 07/19/22 08:06 Dose: 20 mg Lorazepam (Lorazepam 1 Mg Tablet) 1 mg PO Q2H PRN PRN Reason: CIWA 6-10 Last Admin: 07/17/22 09:13 Dose: 1 mg Lorazepam (Lorazepam 1 Mg Tablet) 2 mg PO Q2H PRN PRN Reason: CIWA 11 and above Magnesium Hydroxide (Milk Of Magnesia 30 Ml Oral.Susp) 30 ml PO DAILY PRN PRN Reason: Constipation Metformin HCl (Metformin Hcl 500 Mg Tablet) 500 mg PO BIDWM [facility] Last Admin: 07/19/22 08:05 Dose: 500 mg Nicotine (Nicotine 21 Mg Patch.Td24) 21 mg TRANSDERMA DAILY [facility] Last Admin: 07/19/22 08:06 Dose: Not Given Nicotine Polacrilex (Nicotine Polacrilex 2 Mg Gum) 4 mg BUCCAL Q2H PRN PRN Reason: Nicotine Cravings Omeprazole (Omeprazole 20 Mg Capsule.Dr) 20 mg PO DAILY@0600 [facility] Tamsulosin HCl (Tamsulosin Hcl 0.4 Mg Capsule) 0.4 mg PO BEDTIME [facility] Last Admin: 07/18/22 21:50 Dose: Not Given Trazodone HCl (Trazodone Hcl 50 Mg Tablet) 150 mg PO BEDTIME [facility] Last Admin: 07/18/22 21:50 Dose: Not Given Allergies Allergies Allergy/AdvReac Type Severity Reaction Status Date / Time levofloxacin [From Levaquin] Allergy Intermediate rash Verified 06/21/22 15:30 Assessment & Plan Assessment & Plan (1) Suicidal ideation: Status: Acute Code(s): R45.851 - Suicidal ideations (2) Narcotic drug use: Status: Acute Code(s): F11.90 - Opioid use, unspecified, uncomplicated (3) Cocaine use disorder: Status: Acute Code(s): F14.10 - Cocaine abuse, uncomplicated (4) Opiate dependence: Status: Acute Code(s): F11.20 - Opioid dependence, uncomplicated (5) Polysubstance use disorder: Status: Acute Code(s): F19.90 - Other psychoactive substance use, unspecified, uncomplicated (6) MDD (major depressive disorder), recurrent episode, moderate: Status: Acute Code(s): F33.1 - Major depressive disorder, recurrent, moderate (7) DM II (diabetes mellitus, type II), controlled: Status: Acute Code(s): E11.9 - Type 2 diabetes mellitus without complications (8) Drug-induced psychotic disorder: Status: Acute Code(s): F19.959 - Other psychoactive substance use, unspecified with psychoactive substance-induced psychotic disorder, unspecified (9) Opioid use disorder: Status: Acute Code(s): F11.99 - Opioid use, unspecified with unspecified opioid-induced disorder (10) Stimulant use disorder: Status: Acute Code(s): F15.90 - Other stimulant use, unspecified, uncomplicated (11) Hepatitis C: Status: Acute Code(s): B19.20 - Unspecified viral hepatitis C without hepatic coma (12) Laceration of index finger: Status: Acute Code(s): S61.218A - Laceration without foreign body of other finger without damage to nail, initial encounter Plan Patient is a 47-year-old male with history of depression, polysubstance abuse, on Suboxone, who presents for suicidal ideation in the face of withdrawal from opioids, cocaine.? Patient presentation on This admission is very similar to previous admissions. Will continue home medications; will continue Suboxone; patient understands risk of precipitated withdrawal but wants to restart Suboxone now Hospital course: 07/18 patient a little better; withdrawal subsiding; has not scored on CIWA; asks for Wellbutrin to be started and hopes to get into [facility] upon discharge. -Patient showed administrative underwriter his right index finger with distal laceration at most distal joint; patient has sensations but limited mobility; orthopedic consult ordered 07/19 patient improved a little; still depressed with passive intermittent SI but less so; withdrawal seems to be ending; discussed ortho assessment. Plan: CV Q 15 minute checks Increased to Wellbutrin XL 300 mg daily Continue home medications Continue Suboxone 8 mg t.i.d.; patient understands risks of precipitated withdrawal but wants to continue Suboxone anyone Will continue interview when patient is more amenable Likely DC CIWA Ortho recs: X-rays ordered and pending Due to the nature of the injury occurring a week and a half ago there is no orthopedic intervention warrented at this time He may followup out patient once discharged Occupational therapy for ROM. Patient educated on: diagnosis, medication risk/benefits, substance abuse, therapeutic strategies and medical condition Informed Consent: understands Reason for contiued inpatient stay Substantial Risk for: rapid decompensation Time Spent With Patient Time: Total time managing care of this patient today ____ minutes.
[2022-07-19] MEDS: Tamsulosin HCL 0.4 MG CAPSULE PO (20:43)
[2022-07-19] MEDS: traZODone HCL 50 MG TABLET 150 MG PO (20:43)
[2022-07-20 06:00] VITALS: BP 158/98; PULSE 84; RESP 20; TEMP 36.2; O2SAT 97
[2022-07-20 08:19] LABS: Glucose, Whole Blood 84 mg/dL (60-115)
[2022-07-20] MEDS: metFORMIN HCl 500 MG TABLET PO ×2 (09:09→17:27)
[2022-07-20] MEDS: Docusate Sodium 100 MG CAPSULE PO ×2 (09:09→19:30)
[2022-07-20] MEDS: LORazepam 1 MG TABLET PO (09:09)
[2022-07-20] MEDS: ARIPiprazole 15 MG TABLET PO (09:09)
[2022-07-20] MEDS: lisinopriL 20 MG TABLET PO (09:09)
[2022-07-20] MEDS: Gabapentin 400 MG CAPSULE 800 MG PO ×3 (09:09→19:30)
[2022-07-20] MEDS: cephALEXin 500 MG CAPSULE PO ×3 (09:09→19:30)
[2022-07-20] MEDS: Finasteride 5 MG TABLET PO (09:10)
[2022-07-20] MEDS: amLODIPine Besylate 2.5 MG TABLET PO (09:10)
[2022-07-20] MEDS: Nicotine 21 MG PATCH.TD24 TRANSDERMA (09:10)
[2022-07-20] MEDS: Omeprazole 20 MG CAPSULE.DR PO (09:10)
[2022-07-20] MEDS: Buprenorphine/Naloxone 8/2 mg FILM 1 FILM SUBLINGUAL ×3 (09:10→19:30)
[2022-07-20] MEDS: buPROPion HCl XL 300 MG TAB.ER.24H PO (09:10)
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
[2022-07-20 17:07] LABS: Glucose, Whole Blood 166 mg/dL (60-115)
[2022-07-20] MEDS: Insulin Lispro 100 UNIT/ML 3 ML VIAL SUBCUT (17:26)
[2022-07-20 17:46] VITALS: BP 159/87; PULSE 88; TEMP 36.8
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
[2022-07-20] MEDS: traZODone HCL 50 MG TABLET 150 MG PO (19:30)
[2022-07-20] MEDS: Tamsulosin HCL 0.4 MG CAPSULE PO (19:31)
[2022-07-21 08:51] LABS: Glucose, Whole Blood 116 mg/dL (60-115)
[2022-07-21] MEDS: amLODIPine Besylate 2.5 MG TABLET PO (09:03)
[2022-07-21] MEDS: Finasteride 5 MG TABLET PO (09:03)
[2022-07-21] MEDS: Buprenorphine/Naloxone 8/2 mg FILM 1 FILM SUBLINGUAL ×3 (09:03→20:02)
[2022-07-21] MEDS: metFORMIN HCl 500 MG TABLET PO ×2 (09:03→17:23)
[2022-07-21] MEDS: lisinopriL 20 MG TABLET PO (09:03)
[2022-07-21] MEDS: buPROPion HCl XL 150 MG TAB.ER.24H 450 MG PO (09:03)
[2022-07-21] MEDS: ARIPiprazole 15 MG TABLET PO (09:03)
[2022-07-21] MEDS: Docusate Sodium 100 MG CAPSULE PO ×2 (09:03→20:03)
[2022-07-21] MEDS: Gabapentin 400 MG CAPSULE 800 MG PO ×3 (09:03→20:02)
[2022-07-21] MEDS: Omeprazole 20 MG CAPSULE.DR PO (09:03)
[2022-07-21 09:32] VITALS: BP 137/98; PULSE 91; RESP 18; TEMP 36.9; O2SAT 97
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
[2022-07-21 11:51] LABS: Glucose, Whole Blood 125 mg/dL (60-115)
[2022-07-21 15:35] VITALS: BP 132/78; PULSE 73; TEMP 36.2
[2022-07-21] MEDS: Acetaminophen 325 MG TABLET 650 MG PO (15:41)
[2022-07-21 17:05] LABS: Glucose, Whole Blood 136 mg/dL (60-115)
[2022-07-21] MEDS: Insulin Lispro 100 UNIT/ML 3 ML VIAL SUBCUT (17:23)
[2022-07-21] MEDS: Tamsulosin HCL 0.4 MG CAPSULE PO (20:02)
[2022-07-21] MEDS: traZODone HCL 50 MG TABLET 150 MG PO (20:03)
[2022-07-22 07:00] VITALS: BMI 21.6
[2022-07-22 08:31] LABS: Glucose, Whole Blood 120 mg/dL (60-115)
[2022-07-22] MEDS: Gabapentin 400 MG CAPSULE 800 MG PO ×3 (08:38→20:40)
[2022-07-22] MEDS: metFORMIN HCl 500 MG TABLET PO ×2 (08:38→16:26)
[2022-07-22] MEDS: lisinopriL 20 MG TABLET PO (08:38)
[2022-07-22] MEDS: buPROPion HCl XL 150 MG TAB.ER.24H 450 MG PO (08:38)
[2022-07-22] MEDS: Omeprazole 20 MG CAPSULE.DR PO (08:38)
[2022-07-22] MEDS: amLODIPine Besylate 2.5 MG TABLET PO (08:38)
[2022-07-22] MEDS: Buprenorphine/Naloxone 8/2 mg FILM 1 FILM SUBLINGUAL ×3 (08:38→20:40)
[2022-07-22] MEDS: Finasteride 5 MG TABLET PO (08:38)
[2022-07-22] MEDS: Docusate Sodium 100 MG CAPSULE PO ×2 (08:38→20:40)
[2022-07-22] MEDS: ARIPiprazole 15 MG TABLET PO (08:38)
[2022-07-22 08:40] VITALS: BP 144/84; PULSE 68; RESP 16; TEMP 36.2; O2SAT 99
[2022-07-22 11:55] LABS: Glucose, Whole Blood 162 mg/dL (60-115)
[2022-07-22] MEDS: Insulin Lispro 100 UNIT/ML 3 ML VIAL SUBCUT (11:55)
[2022-07-22 16:13] LABS: Glucose, Whole Blood 96 mg/dL (60-115)
[2022-07-22 16:42] VITALS: BP 119/67; PULSE 73
--- NOTE | 2022-07-22 18:43 | P.PNPSI_ITS ---
Subjective Subjective Date of Service: 07/22/22 Reason For Visit: Depression/SI Subjective Notes: Conditional Voluntary Interim History: Pt reports poor sleep, high anxiety. Withdrawn today, spending some time in bed, social with a few peers. Visable in the milieu later in the day, earlier this evening. Denies current issues to discuss Medication Compliance: Yes Side effects from medications: No Attending Groups: Intermittent Review of Systems Acute medical concerns: No Medical Review of Systems: unchanged Mental Status Exam Mental Status Exam Patient Appearance: Fatigued Patient Orientation: Person, Place, Time and Situation Level of Consciousness: Alert Patient Behavior: Passive, Anxious and Good Eye Contact Mood Description: Anxious Affect Description: Anxious Patient Cognition Impaired: No Ability to Follow Directions: Good Speech Pattern: Spontaneous Speech Memory Description: Intact Hallucinations: None Delusions: Not Present Thought Process: Distracted Thought Content: positive for Circumstantial and positive for Suicidal Ideation (denies today) Depressive Symptoms: Increased Anxiety and Thoughts of /Suicide (denies) Judgement: Fair Diagnostics Vital Signs (24Hr): Vital Signs - 24 hr 07/22/22 08:40 07/22/22 16:42 Temperature 97.1 F Pulse Rate 68 73 Respiratory Rate 16 Blood Pressure 144/84 H 119/67 Pulse Oximetry 99 Oxygen Delivery Method Room Air BMI result Body Mass Index 21.6 Labs 07/16/22 02:08 07/16/22 02:08 Labs: Laboratory Results - last 48 hr 07/21/22 07/21/22 07/21/22 08:30 11:48 17:02 POC Glucose 116 H 125 H 136 H 07/22/22 07/22/22 07/22/22 08:27 11:52 16:09 POC Glucose 120 H 162 H 96 Imaging Radiology Impressions: ITS Impressions Hand X-Ray 07/19/22 07:47 IMPRESSION: No acute fracture or dislocation. Medications Medications Current Medications Acetaminophen (Acetaminophen 325 Mg Tablet) 650 mg PO Q6H PRN PRN Reason: Headache/Pain Mild Scale (1-3) Last Admin: 07/21/22 15:41 Dose: 650 mg Al Hydroxide/Mg Hydroxide (Magnesium Hydrox/Alum Hydrox 30 Ml Oral.Susp) 30 ml PO Q6H PRN PRN Reason: Heartburn/Nausea Amlodipine Besylate (Amlodipine Besylate 2.5 Mg Tablet) 2.5 mg PO DAILY [facility]; Protocol Last Admin: 07/22/22 08:38 Dose: 2.5 mg Aripiprazole (Aripiprazole 15 Mg Tablet) 15 mg PO DAILY [facility] Last Admin: 07/22/22 08:38 Dose: 15 mg Buprenorphine/Naloxone (Buprenorphine/Naloxone 8/2 Mg Film) 1 film SUBLINGUAL TID [facility] Last Admin: 07/22/22 14:12 Dose: 1 film Bupropion HCl (Bupropion Hcl Xl 150 Mg Tab.Er.24h) 450 mg PO DAILY [facility] Last Admin: 07/22/22 08:38 Dose: 450 mg Buspirone HCl (Buspirone Hcl 10 Mg Tablet) 10 mg PO TID PRN PRN Reason: anxiety Clonidine HCl (Clonidine Hcl 0.1 Mg Tablet) 0.1 mg PO Q4H PRN; Protocol PRN Reason: anxiety Docusate Sodium (Docusate Sodium 100 Mg Capsule) 100 mg PO BID [facility] Last Admin: 07/22/22 08:38 Dose: 100 mg Finasteride (Finasteride 5 Mg Tablet) 5 mg PO DAILY [facility] Last Admin: 07/22/22 08:38 Dose: 5 mg Gabapentin (Gabapentin 400 Mg Capsule) 800 mg PO TID [facility] Last Admin: 07/22/22 14:12 Dose: 800 mg Hydroxyzine HCl (Hydroxyzine Hcl 50 Mg Tablet) 50 mg PO Q8H PRN PRN Reason: Anxiety Insulin Human Lispro (Insulin Lispro 100 Unit/Ml 3 Ml Vial) 0 unit SUBCUT QIDACHS [facility]; Protocol Last Admin: 07/22/22 16:21 Dose: Not Given Lisinopril (Lisinopril 20 Mg Tablet) 20 mg PO DAILY [facility]; Protocol Last Admin: 07/22/22 08:38 Dose: 20 mg Magnesium Hydroxide (Milk Of Magnesia 30 Ml Oral.Susp) 30 ml PO DAILY PRN PRN Reason: Constipation Metformin HCl (Metformin Hcl 500 Mg Tablet) 500 mg PO BIDWM [facility] Last Admin: 07/22/22 16:26 Dose: 500 mg Nicotine (Nicotine 21 Mg Patch.Td24) 21 mg TRANSDERMA DAILY [facility] Last Admin: 07/22/22 08:53 Dose: Not Given Nicotine Polacrilex (Nicotine Polacrilex 2 Mg Gum) 4 mg BUCCAL Q2H PRN PRN Reason: Nicotine Cravings Omeprazole (Omeprazole 20 Mg Capsule.Dr) 20 mg PO DAILY [facility] Last Admin: 07/22/22 08:38 Dose: 20 mg Tamsulosin HCl (Tamsulosin Hcl 0.4 Mg Capsule) 0.4 mg PO BEDTIME [facility] Last Admin: 07/21/22 20:02 Dose: 0.4 mg Trazodone HCl (Trazodone Hcl 50 Mg Tablet) 150 mg PO BEDTIME [facility] Last Admin: 07/21/22 20:03 Dose: 150 mg Allergies Allergies Allergy/AdvReac Type Severity Reaction Status Date / Time levofloxacin [From Levaquin] Allergy Intermediate rash Verified 06/21/22 15:30 Assessment & Plan Assessment & Plan (1) Suicidal ideation: Status: Acute Code(s): R45.851 - Suicidal ideations (2) Narcotic drug use: Status: Acute Code(s): F11.90 - Opioid use, unspecified, uncomplicated (3) Cocaine use disorder: Status: Acute Code(s): F14.10 - Cocaine abuse, uncomplicated (4) Opiate dependence: Status: Acute Code(s): F11.20 - Opioid dependence, uncomplicated (5) Polysubstance use disorder: Status: Acute Code(s): F19.90 - Other psychoactive substance use, unspecified, uncomplicated (6) MDD (major depressive disorder), recurrent episode, moderate: Status: Acute Code(s): F33.1 - Major depressive disorder, recurrent, moderate (7) DM II (diabetes mellitus, type II), controlled: Status: Acute Code(s): E11.9 - Type 2 diabetes mellitus without complications (8) Drug-induced psychotic disorder: Status: Acute Code(s): F19.959 - Other psychoactive substance use, unspecified with psychoactive substance-induced psychotic disorder, unspecified (9) Opioid use disorder: Status: Acute Code(s): F11.99 - Opioid use, unspecified with unspecified opioid-induced disorder (10) Stimulant use disorder: Status: Acute Code(s): F15.90 - Other stimulant use, unspecified, uncomplicated (11) Hepatitis C: Status: Acute Code(s): B19.20 - Unspecified viral hepatitis C without hepatic coma (12) Laceration of index finger: Status: Acute Code(s): S61.218A - Laceration without foreign body of other finger without damage to nail, initial encounter Plan Patient is a 47-year-old male with history of depression, polysubstance abuse, on Suboxone, who presents for suicidal ideation in the face of withdrawal from opioids, cocaine.? Patient presentation on This admission is very similar to previous admissions. Will continue home medications; will continue Suboxone; patient understands risk of precipitated withdrawal but wants to restart Suboxone now Hospital course: 07/18 patient a little better; withdrawal subsiding; has not scored on CIWA; asks for Wellbutrin to be started and hopes to get into [facility] upon discharge. -Patient showed repairer typewriter his right index finger with distal laceration at most distal joint; patient has sensations but limited mobility; orthopedic consult ordered 07/19 patient improved a little; still depressed with passive intermittent SI but less so; withdrawal seems to be ending; discussed ortho assessment. 07/20 Patient reports that he is feeling better and appreciates increased Wellbutrin. Would like it to go back to 450 which is his home dose. Patient shares that he has been out in the milieu more and that he is pushing himself to do so but finds that it is helpful. Optical Brightener Maker Helper discussed report that his roommate said that patient made sexual offer to him; patient adamantly denies this; he says he walked in on his roommate masturbating, 2 times and says that his he was probably embarrassed so made up this accusation but again reiterates he never made any such offer at all. Discussed further with other provider who agrees that the 2 is sufficient. Of note, throughout patient's many admissions there have never been any such allegations or any behavioral problems at all. 07/21 anxious today; says having drug dreams about using; flashbacks about using; continue current tx plan 07/22/22 Insomnia reported. Encourage pt to be up during the day. Remeron 7.5 mg prn insomnia tonight. Plan: CV Q 15 minute checks Increased to Wellbutrin XL 450 mg daily Continue home medications Continue Suboxone 8 mg t.i.d.; patient understands risks of precipitated withdrawal but wants to continue Suboxone anyone Will continue interview when patient is more amenable DC CIWA Ortho recs: X-rays ordered and pending Due to the nature of the injury occurring a week and a half ago there is no orthopedic intervention warrented at this time He may followup out patient once discharged Occupational therapy for ROM. Informed Consent: understands Reason for contiued inpatient stay Substantial Risk for: rapid decompensation Time Spent With Patient Time: Total time managing care of this patient today ____ minutes.
[2022-07-22 20:37] LABS: Glucose, Whole Blood 117 mg/dL (60-115)
[2022-07-22] MEDS: traZODone HCL 50 MG TABLET 150 MG PO (20:39)
[2022-07-22] MEDS: Tamsulosin HCL 0.4 MG CAPSULE PO (20:40)
[2022-07-23 08:17] LABS: Glucose, Whole Blood 97 mg/dL (60-115)
--- NOTE | 2022-07-23 08:22 | P.PNPSI_ITS ---
Subjective Subjective Date of Service: 07/23/22 Reason For Visit: Depression/SI Interim History: Met with patient; discussed with team Patient reports he continues to do little better, anxiety down depression down; slept well last night with Remeron. Flashbacks of substance abuse are less. Patient called [facility] yesterday and had a phone intake and is hoping to get in. Otherwise no complaints. Mental Status Exam Mental Status Exam Narrative: Patient alert, oriented; behavior is engaged, calm; patient is not in distress; dressed in hospital attire, scruffy; mood is described as little better and affect constricted; eye contact appropriate; Speech is normal rate, volume and prosody; some psychomotor retardation remains; thought process is goal directed; Thought content is on aftercare, hx of substance abuse; tx; otherwise pertinent to relevant topics and without any delusional content; No sI; no HI. No AVH; Patients insight and judgment fair Diagnostics Vital Signs (24Hr): Vital Signs - 24 hr 07/22/22 08:40 07/22/22 16:42 Temperature 97.1 F Pulse Rate 68 73 Respiratory Rate 16 Blood Pressure 144/84 H 119/67 Pulse Oximetry 99 Oxygen Delivery Method Room Air BMI result Body Mass Index 21.6 Labs 07/16/22 02:08 07/16/22 02:08 Labs: Laboratory Results - last 48 hr 07/21/22 07/21/22 07/21/22 08:30 11:48 17:02 POC Glucose 116 H 125 H 136 H 07/22/22 07/22/22 07/22/22 08:27 11:52 16:09 POC Glucose 120 H 162 H 96 07/22/22 07/23/22 20:34 08:12 POC Glucose 117 H 97 Imaging Radiology Impressions: ITS Impressions Hand X-Ray 07/19/22 07:47 IMPRESSION: No acute fracture or dislocation. Medications Medications Current Medications Acetaminophen (Acetaminophen 325 Mg Tablet) 650 mg PO Q6H PRN PRN Reason: Headache/Pain Mild Scale (1-3) Last Admin: 07/21/22 15:41 Dose: 650 mg Al Hydroxide/Mg Hydroxide (Magnesium Hydrox/Alum Hydrox 30 Ml Oral.Susp) 30 ml PO Q6H PRN PRN Reason: Heartburn/Nausea Amlodipine Besylate (Amlodipine Besylate 2.5 Mg Tablet) 2.5 mg PO DAILY [facility]; Protocol Last Admin: 07/22/22 08:38 Dose: 2.5 mg Aripiprazole (Aripiprazole 15 Mg Tablet) 15 mg PO DAILY [facility] Last Admin: 07/22/22 08:38 Dose: 15 mg Buprenorphine/Naloxone (Buprenorphine/Naloxone 8/2 Mg Film) 1 film SUBLINGUAL TID [facility] Last Admin: 07/22/22 20:40 Dose: 1 film Bupropion HCl (Bupropion Hcl Xl 150 Mg Tab.Er.24h) 450 mg PO DAILY [facility] Last Admin: 07/22/22 08:38 Dose: 450 mg Buspirone HCl (Buspirone Hcl 10 Mg Tablet) 10 mg PO TID PRN PRN Reason: anxiety Clonidine HCl (Clonidine Hcl 0.1 Mg Tablet) 0.1 mg PO Q4H PRN; Protocol PRN Reason: anxiety Docusate Sodium (Docusate Sodium 100 Mg Capsule) 100 mg PO BID [facility] Last Admin: 07/22/22 20:40 Dose: 100 mg Finasteride (Finasteride 5 Mg Tablet) 5 mg PO DAILY [facility] Last Admin: 07/22/22 08:38 Dose: 5 mg Gabapentin (Gabapentin 400 Mg Capsule) 800 mg PO TID [facility] Last Admin: 07/22/22 20:40 Dose: 800 mg Hydroxyzine HCl (Hydroxyzine Hcl 50 Mg Tablet) 50 mg PO Q8H PRN PRN Reason: Anxiety Insulin Human Lispro (Insulin Lispro 100 Unit/Ml 3 Ml Vial) 0 unit SUBCUT QIDACHS [facility]; Protocol Last Admin: 07/22/22 20:40 Dose: Not Given Lisinopril (Lisinopril 20 Mg Tablet) 20 mg PO DAILY [facility]; Protocol Last Admin: 07/22/22 08:38 Dose: 20 mg Magnesium Hydroxide (Milk Of Magnesia 30 Ml Oral.Susp) 30 ml PO DAILY PRN PRN Reason: Constipation Metformin HCl (Metformin Hcl 500 Mg Tablet) 500 mg PO BIDWM [facility] Last Admin: 07/22/22 16:26 Dose: 500 mg Mirtazapine (Mirtazapine 7.5 Mg Tablet) 7.5 mg PO ONCE PRN PRN Reason: insomnia Nicotine (Nicotine 21 Mg Patch.Td24) 21 mg TRANSDERMA DAILY [facility] Last Admin: 07/22/22 08:53 Dose: Not Given Nicotine Polacrilex (Nicotine Polacrilex 2 Mg Gum) 4 mg BUCCAL Q2H PRN PRN Reason: Nicotine Cravings Omeprazole (Omeprazole 20 Mg Capsule.Dr) 20 mg PO DAILY [facility] Last Admin: 07/22/22 08:38 Dose: 20 mg Tamsulosin HCl (Tamsulosin Hcl 0.4 Mg Capsule) 0.4 mg PO BEDTIME [facility] Last Admin: 07/22/22 20:40 Dose: 0.4 mg Trazodone HCl (Trazodone Hcl 50 Mg Tablet) 150 mg PO BEDTIME [facility] Last Admin: 07/22/22 20:39 Dose: 150 mg Allergies Allergies Allergy/AdvReac Type Severity Reaction Status Date / Time levofloxacin [From Levaquin] Allergy Intermediate rash Verified 06/21/22 15:30 Assessment & Plan Assessment & Plan (1) Suicidal ideation: Status: Acute Code(s): R45.851 - Suicidal ideations (2) Narcotic drug use: Status: Acute Code(s): F11.90 - Opioid use, unspecified, uncomplicated (3) Cocaine use disorder: Status: Acute Code(s): F14.10 - Cocaine abuse, uncomplicated (4) Opiate dependence: Status: Acute Code(s): F11.20 - Opioid dependence, uncomplicated (5) Polysubstance use disorder: Status: Acute Code(s): F19.90 - Other psychoactive substance use, unspecified, uncomplicated (6) MDD (major depressive disorder), recurrent episode, moderate: Status: Acute Code(s): F33.1 - Major depressive disorder, recurrent, moderate (7) DM II (diabetes mellitus, type II), controlled: Status: Acute Code(s): E11.9 - Type 2 diabetes mellitus without complications (8) Drug-induced psychotic disorder: Status: Acute Code(s): F19.959 - Other psychoactive substance use, unspecified with psychoactive substance-induced psychotic disorder, unspecified (9) Opioid use disorder: Status: Acute Code(s): F11.99 - Opioid use, unspecified with unspecified opioid-induced disorder (10) Stimulant use disorder: Status: Acute Code(s): F15.90 - Other stimulant use, unspecified, uncomplicated (11) Hepatitis C: Status: Acute Code(s): B19.20 - Unspecified viral hepatitis C without hepatic coma (12) Laceration of index finger: Status: Acute Code(s): S61.218A - Laceration without foreign body of other finger without damage to nail, initial encounter Plan Patient is a 47-year-old male with history of depression, polysubstance abuse, on Suboxone, who presents for suicidal ideation in the face of withdrawal from opioids, cocaine.? Patient presentation on This admission is very similar to previous admissions. Will continue home medications; will continue Suboxone; patient understands risk of precipitated withdrawal but wants to restart Suboxone now Hospital course: 07/18 patient a little better; withdrawal subsiding; has not scored on CIWA; asks for Wellbutrin to be started and hopes to get into [facility] upon discharge. -Patient showed sports book writer his right index finger with distal laceration at most dis doug joint; patient has sensations but limited mobility; orthopedic consult ordered 07/19 patient improved a little; still depressed with passive intermittent SI but less so; withdrawal seems to be ending; discussed ortho assessment. 07/20 Patient reports that he is feeling better and appreciates increased Wellbutrin. Would like it to go back to 450 which is his home dose. Patient shares that he has been out in the milieu more and that he is pushing himself to do so but finds that it is helpful. Punch Press Operator Helper discussed report that his roommate said that patient made sexual offer to him; patient adamantly denies this; he says he walked in on his roommate masturbating, 2 times and says that his he was probably embarrassed so made up this accusation but again reiterates he never made any such offer at all. Discussed further with other provider who agrees that the 2 is sufficient. Of note, throughout patient's many admissions there have never been any such allegations or any behavioral problems at all. 07/21 anxious today; says having drug dreams about using; flashbacks about usin g; continue current tx plan 07/22/22 Insomnia reported. Encourage pt to be up during the day. Remeron 7.5 mg prn insomnia tonight. 07/23 patient reports feeling a little better. Slept better with Remeron; and continue current treatment plan Plan: CV Q 15 minute checks Continue Remeron 7.5 mg q.h.s. Continue Wellbutrin XL 450 mg daily Continue home medications Continue Suboxone 8 mg t.i.d.; patient understands risks of precipitated withdrawal but wants to continue Suboxone anyone Will continue interview when patient is more amenable DC CIWA Ortho recs: X-rays ordered and pending Due to the nature of the injury occurring a week and a half ago there is no orthopedic intervention warrented at this time He may followup out patient once discharged Occupational therapy for ROM. Patient educated on: diagnosis, medication risk/benefits and substance abuse Informed Consent: understands Reason for contiued inpatient stay Substantial Risk for: stable for discharge Time Spent With Patient Time: Total time managing care of this patient today ____ minutes.
[2022-07-23] MEDS: Gabapentin 400 MG CAPSULE 800 MG PO ×3 (08:58→20:11)
[2022-07-23] MEDS: Buprenorphine/Naloxone 8/2 mg FILM 1 FILM SUBLINGUAL ×3 (08:58→20:11)
[2022-07-23] MEDS: amLODIPine Besylate 2.5 MG TABLET PO (08:58)
[2022-07-23] MEDS: Omeprazole 20 MG CAPSULE.DR PO (08:58)
[2022-07-23] MEDS: lisinopriL 20 MG TABLET PO (08:58)
[2022-07-23] MEDS: metFORMIN HCl 500 MG TABLET PO ×2 (08:58→16:36)
[2022-07-23] MEDS: ARIPiprazole 15 MG TABLET PO (08:58)
[2022-07-23] MEDS: Finasteride 5 MG TABLET PO (08:58)
[2022-07-23] MEDS: Docusate Sodium 100 MG CAPSULE PO ×2 (08:58→20:11)
[2022-07-23] MEDS: buPROPion HCl XL 150 MG TAB.ER.24H 450 MG PO (08:58)
[2022-07-23 09:08] LABS: Creatinine Clr Calc Pharmacy 123.8; Estimated Glomerular Filt Rate > 60
[2022-07-23 09:30] VITALS: BP 110/72; PULSE 61; RESP 18; TEMP 36.3; O2SAT 97
[2022-07-23 12:09] LABS: Glucose, Whole Blood 115 mg/dL (60-115)
[2022-07-23 16:09] VITALS: BP 114/69; PULSE 64; TEMP 36.6
[2022-07-23] MEDS: Tamsulosin HCL 0.4 MG CAPSULE PO (20:11)
[2022-07-23] MEDS: traZODone HCL 50 MG TABLET 150 MG PO (20:11)
[2022-07-24 08:23] LABS: Glucose, Whole Blood 94 mg/dL (60-115)
[2022-07-24] MEDS: metFORMIN HCl 500 MG TABLET PO ×2 (08:43→17:54)
[2022-07-24] MEDS: Finasteride 5 MG TABLET PO (08:43)
[2022-07-24] MEDS: Docusate Sodium 100 MG CAPSULE PO ×2 (08:43→20:02)
[2022-07-24] MEDS: Omeprazole 20 MG CAPSULE.DR PO (08:43)
[2022-07-24] MEDS: ARIPiprazole 15 MG TABLET PO (08:43)
[2022-07-24] MEDS: Gabapentin 400 MG CAPSULE 800 MG PO ×3 (08:43→20:02)
[2022-07-24] MEDS: Buprenorphine/Naloxone 8/2 mg FILM 1 FILM SUBLINGUAL ×3 (08:43→20:02)
[2022-07-24] MEDS: buPROPion HCl XL 150 MG TAB.ER.24H 450 MG PO (08:43)
[2022-07-24] MEDS: lisinopriL 20 MG TABLET PO (08:43)
[2022-07-24] MEDS: amLODIPine Besylate 2.5 MG TABLET PO (08:43)
[2022-07-24 08:45] VITALS: BP 142/78; PULSE 82; RESP 18; TEMP 36.6; O2SAT 98
[2022-07-24 12:25] LABS: Glucose, Whole Blood 134 mg/dL (60-115)
--- NOTE | 2022-07-24 16:05 | P.PNPSI_ITS ---
Subjective Subjective Date of Service: 07/24/22 Reason For Visit: Depression/SI Interim History: Patient seen, chart reviewed. Case discussed with RN. Has been isolative. Still hoping to get into [facility]. Accuchecks in good control. Medication Compliance: Yes Side effects from medications: No Attending Groups: No Review of Systems Acute medical concerns: No Mental Status Exam Mental Status Exam Patient Appearance: Well Grooomed Patient Orientation: Situation Level of Consciousness: Awake Patient Behavior: Appropriate and Isolative Mood Description: Withdrawn Affect Description: Depressed Patient Cognition Impaired: No Ability to Follow Directions: Good Speech Pattern: Clear Memory Description: Intact Hallucinations: None Delusions: Not Present Thought Process: Goal Oriented Thought Content: positive for Intact Judgement: Fair Diagnostics Vital Signs (24Hr): Vital Signs - 24 hr 07/23/22 16:09 07/24/22 08:45 Temperature 98 F 97.8 F Pulse Rate 64 82 Respiratory Rate 18 Blood Pressure 114/69 142/78 H Pulse Oximetry 98 Oxygen Delivery Method Room Air BMI result Body Mass Index 21.6 Labs 07/16/22 02:08 07/23/22 08:27 Labs: Laboratory Results - last 48 hr 07/22/22 07/22/22 07/23/22 16:09 20:34 08:12 Creatinine Estim Creat Clear Calc Estimated GFR POC Glucose 96 117 H 97 07/23/22 07/23/22 07/24/22 08:27 12:05 08:19 Creatinine 0.77 Estim Creat Clear Calc 123.8 Estimated GFR > 60 POC Glucose 115 94 07/24/22 12:21 Creatinine Estim Creat Clear Calc Estimated GFR POC Glucose 134 H Imaging Radiology Impressions: ITS Impressions Hand X-Ray 07/19/22 07:47 IMPRESSION: No acute fracture or dislocation. Medications Medications Current Medications Acetaminophen (Acetaminophen 325 Mg Tablet) 650 mg PO Q6H PRN PRN Reason: Headache/Pain Mild Scale (1-3) Last Admin: 07/21/22 15:41 Dose: 650 mg Al Hydroxide/Mg Hydroxide (Magnesium Hydrox/Alum Hydrox 30 Ml Oral.Susp) 30 ml PO Q6H PRN PRN Reason: Heartburn/Nausea Amlodipine Besylate (Amlodipine Besylate 2.5 Mg Tablet) 2.5 mg PO DAILY [facility]; Protocol Last Admin: 07/24/22 08:43 Dose: 2.5 mg Aripiprazole (Aripiprazole 15 Mg Tablet) 15 mg PO DAILY [facility] Last Admin: 07/24/22 08:43 Dose: 15 mg Buprenorphine/Naloxone (Buprenorphine/Naloxone 8/2 Mg Film) 1 film SUBLINGUAL TID [facility] Last Admin: 07/24/22 14:21 Dose: 1 film Bupropion HCl (Bupropion Hcl Xl 150 Mg Tab.Er.24h) 450 mg PO DAILY [facility] Last Admin: 07/24/22 08:43 Dose: 450 mg Buspirone HCl (Buspirone Hcl 10 Mg Tablet) 10 mg PO TID PRN PRN Reason: anxiety Clonidine HCl (Clonidine Hcl 0.1 Mg Tablet) 0.1 mg PO Q4H PRN; Protocol PRN Reason: anxiety Docusate Sodium (Docusate Sodium 100 Mg Capsule) 100 mg PO BID [facility] Last Admin: 07/24/22 08:43 Dose: 100 mg Finasteride (Finasteride 5 Mg Tablet) 5 mg PO DAILY [facility] Last Admin: 07/24/22 08:43 Dose: 5 mg Gabapentin (Gabapentin 400 Mg Capsule) 800 mg PO TID [facility] Last Admin: 07/24/22 14:21 Dose: 800 mg Hydroxyzine HCl (Hydroxyzine Hcl 50 Mg Tablet) 50 mg PO Q8H PRN PRN Reason: Anxiety Insulin Human Lispro (Insulin Lispro 100 Unit/Ml 3 Ml Vial) 0 unit SUBCUT QIDACHS [facility]; Protocol Last Admin: 07/24/22 12:39 Dose: Not Given Lisinopril (Lisinopril 20 Mg Tablet) 20 mg PO DAILY [facility]; Protocol Last Admin: 07/24/22 08:43 Dose: 20 mg Magnesium Hydroxide (Milk Of Magnesia 30 Ml Oral.Susp) 30 ml PO DAILY PRN PRN Reason: Constipation Metformin HCl (Metformin Hcl 500 Mg Tablet) 500 mg PO BIDWM [facility] Last Admin: 07/24/22 08:43 Dose: 500 mg Mirtazapine (Mirtazapine 7.5 Mg Tablet) 7.5 mg PO BEDTIME PRN PRN Reason: insomnia Nicotine (Nicotine 21 Mg Patch.Td24) 21 mg TRANSDERMA DAILY [facility] Last Admin: 07/24/22 10:36 Dose: Not Given Nicotine Polacrilex (Nicotine Polacrilex 2 Mg Gum) 4 mg BUCCAL Q2H PRN PRN Reason: Nicotine Cravings Omeprazole (Omeprazole 20 Mg Capsule.) 20 mg PO DAILY [facility] Last Admin: 07/24/22 08:43 Dose: 20 mg Tamsulosin HCl (Tamsulosin Hcl 0.4 Mg Capsule) 0.4 mg PO BEDTIME [facility] Last Admin: 07/23/22 20:11 Dose: 0.4 mg Trazodone HCl (Trazodone Hcl 50 Mg Tablet) 150 mg PO BEDTIME [facility] Last Admin: 07/23/22 20:11 Dose: 150 mg Allergies Allergies Allergy/AdvReac Type Severity Reaction Status Date / Time levofloxacin [From Levaquin] Allergy Intermediate rash Verified 06/21/22 15:30 Assessment & Plan Assessment & Plan (1) Suicidal ideation: Status: Acute Code(s): R45.851 - Suicidal ideations (2) Narcotic drug use: Status: Acute Code(s): F11.90 - Opioid use, unspecified, uncomplicated (3) Cocaine use disorder: Status: Acute Code(s): F14.10 - Cocaine abuse, uncomplicated (4) Opiate dependence: Status: Acute Code(s): F11.20 - Opioid dependence, uncomplicated (5) Polysubstance use disorder: Status: Acute Code(s): F19.90 - Other psychoactive substance use, unspecified, uncomplicated (6) MDD (major depressive disorder), recurrent episode, moderate: Status: Acute Code(s): F33.1 - Major depressive disorder, recurrent, moderate Assessment and Plan: No med changes, sleeping better with remeron (7) DM II (diabetes mellitus, type II), controlled: Status: Acute Code(s): E11.9 - Type 2 diabetes mellitus without complications (8) Drug-induced psychotic disorder: Status: Acute Code(s): F19.959 - Other psychoactive substance use, unspecified with psychoactive substance-induced psychotic disorder, unspecified (9) Opioid use disorder: Status: Acute Code(s): F11.99 - Opioid use, unspecified with unspecified opioid-induced disorder Assessment and Plan: continue suboxone (10) Stimulant use disorder: Status: Acute Code(s): F15.90 - Other stimulant use, unspecified, uncomplicated (11) Hepatitis C: Status: Acute Code(s): B19.20 - Unspecified viral hepatitis C without hepatic coma (12) Laceration of index finger: Status: Acute Code(s): S61.218A - Laceration without foreign body of other finger without damage to nail, initial encounter Plan Patient is a 47-year-old male with history of depression, polysubstance abuse, on Suboxone, who presents for suicidal ideation in the face of withdrawal from opioids, cocaine.? Patient presentation on This admission is very similar to previous admissions. Will continue home medications; will continue Suboxone; patient understands risk of precipitated withdrawal but wants to restart Suboxone now Hospital course: 07/18 patient a little better; withdrawal subsiding; has not scored on CIWA; asks for Wellbutrin to be started and hopes to get into [facility] upon discharge. -Patient showed health underwriter his right index finger with distal laceration at most distal joint; patient has sensations but limited mobility; orthopedic consult ordered 07/19 patient improved a little; still depressed with passive intermittent SI but less so; withdrawal seems to be ending; discussed ortho assessment. 07/20 Patient reports that he is feeling better and appreciates increased Wellbutrin. Would like it to go back to 450 which is his home dose. Patient shares that he has been out in the milieu more and that he is pushing himself to do so but finds that it is helpful. Embedded Linux Developer discussed report that his roommate said that patient made sexual offer to him; patient adamantly denies this; he says he walked in on his roommate masturbating, 2 times and says that his he was probably embarrassed so made up this accusation but again reiterates he never made any such offer at all. Discussed further with other provider who agrees that the 2 is sufficient. Of note, throughout patient's many admissions there have never been any such allegations or any behavioral problems at all. 07/21 anxious today; says having drug dreams about using; flashbacks about using; continue current tx plan 07/22/22 Insomnia reported. Encourage pt to be up during the day. Remeron 7.5 mg prn insomnia tonight. 07/23 patient reports feeling a little better. Slept better with Remeron; and continue current treatment plan Plan: CV Q 15 minute checks Continue Remeron 7.5 mg q.h.s. Continue Wellbutrin XL 450 mg daily Continue home medications Continue Suboxone 8 mg t.i.d.; patient understands risks of precipitated withdrawal but wants to continue Suboxone anyone Will continue interview when patient is more amenable DC CIWA Ortho recs: X-rays ordered and pending Due to the nature of the injury occurring a week and a half ago there is no orthopedic intervention warrented at this time He may followup out patient once discharged Occupational therapy for ROM. Reason for continued inpatient stay Substantial Risk for: rapid decompensation Time Spent With Patient Time: Total time managing care of this patient today ____ minutes.
[2022-07-24 17:03] LABS: Glucose, Whole Blood 151 mg/dL (60-115)
[2022-07-24] MEDS: Insulin Lispro 100 UNIT/ML 3 ML VIAL SUBCUT (17:53)
[2022-07-24 18:40] VITALS: BP 136/75; PULSE 68; TEMP 36.3
[2022-07-24] MEDS: Mirtazapine 7.5 MG TABLET PO (20:02)
[2022-07-24] MEDS: traZODone HCL 50 MG TABLET 150 MG PO (20:02)
[2022-07-24] MEDS: Tamsulosin HCL 0.4 MG CAPSULE PO (20:02)
[2022-07-25 08:08] LABS: Glucose, Whole Blood 96 mg/dL (60-115)
[2022-07-25 08:40] VITALS: BP 125/81; PULSE 73; RESP 18; TEMP 36.5; O2SAT 98
[2022-07-25] MEDS: amLODIPine Besylate 2.5 MG TABLET PO (08:41)
[2022-07-25] MEDS: lisinopriL 20 MG TABLET PO (08:41)
[2022-07-25] MEDS: Omeprazole 20 MG CAPSULE.DR PO (08:41)
[2022-07-25] MEDS: buPROPion HCl XL 150 MG TAB.ER.24H 450 MG PO (08:41)
[2022-07-25] MEDS: metFORMIN HCl 500 MG TABLET PO ×2 (08:41→16:35)
[2022-07-25] MEDS: ARIPiprazole 15 MG TABLET PO (08:41)
[2022-07-25] MEDS: Docusate Sodium 100 MG CAPSULE PO ×2 (08:41→20:16)
[2022-07-25] MEDS: Gabapentin 400 MG CAPSULE 800 MG PO ×3 (08:42→20:16)
[2022-07-25] MEDS: Finasteride 5 MG TABLET PO (08:42)
[2022-07-25] MEDS: Buprenorphine/Naloxone 8/2 mg FILM 1 FILM SUBLINGUAL ×3 (08:42→20:16)
[2022-07-25 12:16] LABS: Glucose, Whole Blood 153 mg/dL (60-115)
--- NOTE | 2022-07-25 14:44 | P.PNPSI_ITS ---
Subjective Subjective Date of Service: 07/25/22 Reason For Visit: Depression/SI Subjective Notes: Conditional Voluntary Interim History: Patient seen. Chart reviewed. Case discussed with RN. Patient in bed during the day. Reports some sleep disturbance at night. Having some nightmares. No recent PRNs given. Accuchecks slightly elevated Medication Compliance: Yes Side effects from medications: No Attending Groups: No Mental Status Exam Mental Status Exam Patient Appearance: Well Grooomed Level of Consciousness: Alert Patient Behavior: Isolative Mood Description: Anxious Affect Description: Withdrawn, Depressed and Anxious Patient Cognition Impaired: No Speech Pattern: Clear Hallucinations: None Delusions: Not Present Thought Process: Linear Thought Content: positive for Goal Oriented Depressive Symptoms: Difficulty Sleeping Judgement: Fair Diagnostics Vital Signs (24Hr): Vital Signs - 24 hr 07/24/22 18:40 07/25/22 08:40 Temperature 97.4 F 97.7 F Pulse Rate 68 73 Respiratory Rate 18 Blood Pressure 136/75 125/81 Pulse Oximetry 98 Oxygen Delivery Method Room Air BMI result Body Mass Index 21.6 Labs 07/16/22 02:08 07/23/22 08:27 Labs: Laboratory Results - last 48 hr 07/24/22 07/24/22 07/24/22 08:19 12:21 16:59 POC Glucose 94 134 H 151 H 07/25/22 07/25/22 08:02 12:11 POC Glucose 96 153 H Imaging Radiology Impressions: ITS Impressions Hand X-Ray 07/19/22 07:47 IMPRESSION: No acute fracture or dislocation. Medications Medications Current Medications Acetaminophen (Acetaminophen 325 Mg Tablet) 650 mg PO Q6H PRN PRN Reason: Headache/Pain Mild Scale (1-3) Last Admin: 07/21/22 15:41 Dose: 650 mg Al Hydroxide/Mg Hydroxide (Magnesium Hydrox/Alum Hydrox 30 Ml Oral.Susp) 30 ml PO Q6H PRN PRN Reason: Heartburn/Nausea Amlodipine Besylate (Amlodipine Besylate 2.5 Mg Tablet) 2.5 mg PO DAILY [facility]; Protocol Last Admin: 07/25/22 08:41 Dose: 2.5 mg Aripiprazole (Aripiprazole 15 Mg Tablet) 15 mg PO DAILY [facility] Last Admin: 07/25/22 08:41 Dose: 15 mg Buprenorphine/Naloxone (Buprenorphine/Naloxone 8/2 Mg Film) 1 film SUBLINGUAL TID [facility] Last Admin: 07/25/22 14:18 Dose: 1 film Bupropion HCl (Bupropion Hcl Xl 150 Mg Tab.Er.24h) 450 mg PO DAILY [facility] Last Admin: 07/25/22 08:41 Dose: 450 mg Buspirone HCl (Buspirone Hcl 10 Mg Tablet) 10 mg PO TID PRN PRN Reason: anxiety Clonidine HCl (Clonidine Hcl 0.1 Mg Tablet) 0.1 mg PO Q4H PRN; Protocol PRN Reason: anxiety Docusate Sodium (Docusate Sodium 100 Mg Capsule) 100 mg PO BID [facility] Last Admin: 07/25/22 08:41 Dose: 100 mg Finasteride (Finasteride 5 Mg Tablet) 5 mg PO DAILY [facility] Last Admin: 07/25/22 08:42 Dose: 5 mg Gabapentin (Gabapentin 400 Mg Capsule) 800 mg PO TID [facility] Last Admin: 07/25/22 14:18 Dose: 800 mg Hydroxyzine HCl (Hydroxyzine Hcl 50 Mg Tablet) 50 mg PO Q8H PRN PRN Reason: Anxiety Insulin Human Lispro (Insulin Lispro 100 Unit/Ml 3 Ml Vial) 0 unit SUBCUT QIDACHS [facility]; Protocol Last Admin: 07/25/22 12:18 Dose: Not Given Lisinopril (Lisinopril 20 Mg Tablet) 20 mg PO DAILY [facility]; Protocol Last Admin: 07/25/22 08:41 Dose: 20 mg Magnesium Hydroxide (Milk Of Magnesia 30 Ml Oral.Susp) 30 ml PO DAILY PRN PRN Reason: Constipation Metformin HCl (Metformin Hcl 500 Mg Tablet) 500 mg PO BIDWM [facility] Last Admin: 07/25/22 08:41 Dose: 500 mg Mirtazapine (Mirtazapine 7.5 Mg Tablet) 7.5 mg PO BEDTIME PRN PRN Reason: insomnia Last Admin: 07/24/22 20:02 Dose: 7.5 mg Nicotine (Nicotine 21 Mg Patch.Td24) 21 mg TRANSDERMA DAILY [facility] Last Admin: 07/25/22 08:50 Dose: Not Given Nicotine Polacrilex (Nicotine Polacrilex 2 Mg Gum) 4 mg BUCCAL Q2H PRN PRN Reason: Nicotine Cravings Omeprazole (Omeprazole 20 Mg Capsule.Dr) 20 mg PO DAILY [facility] Last Admin: 07/25/22 08:41 Dose: 20 mg Tamsulosin HCl (Tamsulosin Hcl 0.4 Mg Capsule) 0.4 mg PO BEDTIME [facility] Last Admin: 07/24/22 20:02 Dose: 0.4 mg Trazodone HCl (Trazodone Hcl 50 Mg Tablet) 150 mg PO BEDTIME [facility] Last Admin: 07/24/22 20:02 Dose: 150 mg Allergies Allergies Allergy/AdvReac Type Severity Reaction Status Date / Time levofloxacin [From Levaquin] Allergy Intermediate rash Verified 06/21/22 15:30 Assessment & Plan Assessment & Plan (1) Suicidal ideation: Status: Acute Code(s): R45.851 - Suicidal ideations (2) Narcotic drug use: Status: Acute Code(s): F11.90 - Opioid use, unspecified, uncomplicated (3) Cocaine use disorder: Status: Acute Code(s): F14.10 - Cocaine abuse, uncomplicated (4) Opiate dependence: Status: Acute Code(s): F11.20 - Opioid dependence, uncomplicated (5) Polysubstance use disorder: Status: Acute Code(s): F19.90 - Other psychoactive substance use, unspecified, uncomplicated (6) MDD (major depressive disorder), recurrent episode, moderate: Status: Acute Code(s): F33.1 - Major depressive disorder, recurrent, moderate Assessment and Plan: No med changes, sleeping better with remeron (7) DM II (diabetes mellitus, type II), controlled: Status: Acute Code(s): E11.9 - Type 2 diabetes mellitus without complications (8) Drug-induced psychotic disorder: Status: Acute Code(s): F19.959 - Other psychoactive substance use, unspecified with psychoactive substance-induced psychotic disorder, unspecified (9) Opioid use disorder: Status: Acute Code(s): F11.99 - Opioid use, unspecified with unspecified opioid-induced disorder Assessment and Plan: continue suboxone (10) Stimulant use disorder: Status: Acute Code(s): F15.90 - Other stimulant use, unspecified, uncomplicated (11) Hepatitis C: Status: Acute Code(s): B19.20 - Unspecified viral hepatitis C without hepatic coma (12) Laceration of index finger: Status: Acute Code(s): S61.218A - Laceration without foreign body of other finger without damage to nail, initial encounter Plan Patient is a 47-year-old male with history of depression, polysubstance abuse, on Suboxone, who presents for suicidal ideation in the face of withdrawal from opioids, cocaine.? Patient presentation on This admission is very similar to pr evious admissions. Will continue home medications; will continue Suboxone; patient understands risk of precipitated withdrawal but wants to restart Suboxone now Hospital course: 07/18 patient a little better; withdrawal subsiding; has not scored on CIWA; asks for Wellbutrin to be started and hopes to get into [facility] upon [facility]. -Patient showed medical technical writer his right index finger with distal laceration at most distal joint; patient has sensations but limited mobility; orthopedic consult ordered 07/19 patient improved a little; still depressed with passive intermittent SI but less so; withdrawal seems to be ending; discussed ortho assessment. 07/20 Patient reports that he is feeling better and appreciates increased Wellbutrin. Would like it to go back to 450 which is his home dose. Patient shares that he has been out in the milieu more and that he is pushing himself to do so but finds that it is helpful. Yeast Pumper discussed report that his roommate said that patient made sexual offer to him; patient adamantly denies this; he says he walked in on his roommate masturbating, 2 times and says that his he was probably embarrassed so made up this accusation but again reiterates he never made any such offer at all. Discussed further with other provider who agrees that the 2 is sufficient. Of note, throughout patient's many admissions there have never been any such allegations or any behavioral problems at all. 07/21 anxious today; says having drug dreams about using; flashbacks about using; continue current tx plan 07/22/22 Insomnia reported. Encourage pt to be up during the day. Remeron 7.5 mg prn insomnia tonight. 07/23 patient reports feeling a little better. Slept better with Remeron; and continue current treatment plan 07/24 no med changes 07/25 increase standing trazodone to 200 mg Plan: CV Q 15 minute checks Continue Remeron 7.5 mg q.h.s. Continue Wellbutrin XL 450 mg daily Continue home medications Continue Suboxone 8 mg t.i.d.; patient understands risks of precipitated withdrawal but wants to continue Suboxone anyone Will continue interview when patient is more amenable DC CIWA Ortho recs: X-rays ordered and pending Due to the nature of the injury occurring a week and a half ago there is no o rthopedic intervention warrented at this time He may followup out patient once discharged Occupational therapy for ROM. Reason for continued inpatient stay Substantial Risk for: rapid decompensation Time Spent With Patient Time: Total time managing care of this patient today ____ minutes.
[2022-07-25 16:12] VITALS: BP 112/71; PULSE 83
[2022-07-25] MEDS: Tamsulosin HCL 0.4 MG CAPSULE PO (20:16)
[2022-07-25] MEDS: traZODone HCL 100 MG TABLET 200 MG PO (20:16)
[2022-07-26 08:07] LABS: Glucose, Whole Blood 88 mg/dL (60-115)
[2022-07-26 08:25] VITALS: BP 125/80; PULSE 74; RESP 16; TEMP 36.8; O2SAT 98
--- NOTE | 2022-07-26 08:34 | HO.PSYCHPN ---
Subjective Subjective Date of Service: 07/26/22 Reason For Visit: Depression/SI Subjective Notes: Conditional Voluntary Interim History: Eating and sleeping OK. No behavior management issues. States his feet hurt and this pain is typical of peripheral neuropathy. Medication Compliance: Yes Side effects from medications: No Attending Groups: Yes Review of Systems Acute medical concerns: No Mental Status Exam Mental Status Exam Patient Appearance: Well Grooomed Level of Consciousness: Alert Patient Behavior: Appropriate Mood Description: Calm Affect Description: Depressed Patient Cognition Impaired: No Speech Pattern: Clear Hallucinations: None Delusions: Not Present Thought Process: Linear Thought Content: positive for Intact Depressive Symptoms: Loss of Energy Diagnostics Vital Signs (24Hr): Vital Signs - 24 hr 07/25/22 08:40 07/25/22 16:12 07/26/22 08:25 Temperature 97.7 F 97.7 F Pulse Rate 73 83 85 Respiratory Rate 18 16 Blood Pressure 125/81 112/71 118/57 L Pulse Oximetry 98 95 Oxygen Delivery Method Room Air Room Air BMI result Body Mass Index 21.6 Labs 07/16/22 02:08 07/23/22 08:27 Labs: Laboratory Results - last 48 hr 07/24/22 07/24/22 07/25/22 12:21 16:59 08:02 POC Glucose 134 H 151 H 96 07/25/22 07/26/22 12:11 08:03 POC Glucose 153 H 88 Imaging Radiology Impressions: ITS Impressions Hand X-Ray 07/19/22 07:47 IMPRESSION: No acute fracture or dislocation. Medications Medications Current Medications Acetaminophen (Acetaminophen 325 Mg Tablet) 650 mg PO Q6H PRN PRN Reason: Headache/Pain Mild Scale (1-3) Last Admin: 07/21/22 15:41 Dose: 650 mg Al Hydroxide/Mg Hydroxide (Magnesium Hydrox/Alum Hydrox 30 Ml Oral.Susp) 30 ml PO Q6H PRN PRN Reason: Heartburn/Nausea Amlodipine Besylate (Amlodipine Besylate 2.5 Mg Tablet) 2.5 mg PO DAILY [facility]; Protocol Last Admin: 07/25/22 08:41 Dose: 2.5 mg Aripiprazole (Aripiprazole 15 Mg Tablet) 15 mg PO DAILY [facility] Last Admin: 07/25/22 08:41 Dose: 15 mg Buprenorphine/Naloxone (Buprenorphine/Naloxone 8/2 Mg Film) 1 film SUBLINGUAL TID [facility] Last Admin: 07/25/22 20:16 Dose: 1 film Bupropion HCl (Bupropion Hcl Xl 150 Mg Tab.Er.24h) 450 mg PO DAILY [facility] Last Admin: 07/25/22 08:41 Dose: 450 mg Buspirone HCl (Buspirone Hcl 10 Mg Tablet) 10 mg PO TID PRN PRN Reason: anxiety Clonidine HCl (Clonidine Hcl 0.1 Mg Tablet) 0.1 mg PO Q4H PRN; Protocol PRN Reason: anxiety Docusate Sodium (Docusate Sodium 100 Mg Capsule) 100 mg PO BID [facility] Last Admin: 07/25/22 20:16 Dose: 100 mg Finasteride (Finasteride 5 Mg Tablet) 5 mg PO DAILY [facility] Last Admin: 07/25/22 08:42 Dose: 5 mg Gabapentin (Gabapentin 400 Mg Capsule) 800 mg PO TID [facility] Last Admin: 07/25/22 20:16 Dose: 800 mg Hydroxyzine HCl (Hydroxyzine Hcl 50 Mg Tablet) 50 mg PO Q8H PRN PRN Reason: Anxiety Insulin Human Lispro (Insulin Lispro 100 Unit/Ml 3 Ml Vial) 0 unit SUBCUT QIDACHS [facility]; Protocol Last Admin: 07/26/22 08:18 Dose: Not Given Lisinopril (Lisinopril 20 Mg Tablet) 20 mg PO DAILY [facility]; Protocol Last Admin: 07/25/22 08:41 Dose: 20 mg Magnesium Hydroxide (Milk Of Magnesia 30 Ml Oral.Susp) 30 ml PO DAILY PRN PRN Reason: Constipation Metformin HCl (Metformin Hcl 500 Mg Tablet) 500 mg PO BIDWM [facility] Last Admin: 07/25/22 16:35 Dose: 500 mg Mirtazapine (Mirtazapine 7.5 Mg Tablet) 7.5 mg PO BEDTIME PRN PRN Reason: insomnia Last Admin: 07/24/22 20:02 Dose: 7.5 mg Nicotine (Nicotine 21 Mg Patch.Td24) 21 mg TRANSDERMA DAILY [facility] Last Admin: 07/25/22 08:50 Dose: Not Given Nicotine Polacrilex (Nicotine Polacrilex 2 Mg Gum) 4 mg BUCCAL Q2H PRN PRN Reason: Nicotine Cravings Omeprazole (Omeprazole 20 Mg Capsule.Dr) 20 mg PO DAILY [facility] Last Admin: 07/25/22 08:41 Dose: 20 mg Tamsulosin HCl (Tamsulosin Hcl 0.4 Mg Capsule) 0.4 mg PO BEDTIME [facility] Last Admin: 07/25/22 20:16 Dose: 0.4 mg Trazodone HCl (Trazodone Hcl 100 Mg Tablet) 200 mg PO BEDTIME [facility] Last Admin: 07/25/22 20:16 Dose: 200 mg Allergies Allergies Allergy/AdvReac Type Severity Reaction Status Date / Time levofloxacin [From Levaquin] Allergy Intermediate rash Verified 06/21/22 15:30 Assessment & Plan Assessment & Plan (1) Suicidal ideation: Status: Acute Code(s): R45.851 - Suicidal ideations (2) Narcotic drug use: Status: Acute Code(s): F11.90 - Opioid use, unspecified, uncomplicated (3) Cocaine use disorder: Status: Acute Code(s): F14.10 - Cocaine abuse, uncomplicated (4) Opiate dependence: Status: Acute Code(s): F11.20 - Opioid dependence, uncomplicated (5) Polysubstance use disorder: Status: Acute Code(s): F19.90 - Other psychoactive substance use, unspecified, uncomplicated (6) MDD (major depressive disorder), recurrent episode, moderate: Status: Acute Code(s): F33.1 - Major depressive disorder, recurrent, moderate Assessment and Plan: No med changes, sleeping better with remeron (7) DM II (diabetes mellitus, type II), controlled: Status: Acute Code(s): E11.9 - Type 2 diabetes mellitus without complications (8) Drug-induced psychotic disorder: Status: Acute Code(s): F19.959 - Other psychoactive substance use, unspecified with psychoactive substance-induced psychotic disorder, unspecified (9) Opioid use disorder: Status: Acute Code(s): F11.99 - Opioid use, unspecified with unspecified opioid-induced disorder Assessment and Plan: continue suboxone (10) Stimulant use disorder: Status: Acute Code(s): F15.90 - Other stimulant use, unspecified, uncomplicated (11) Hepatitis C: Status: Acute Code(s): B19.20 - Unspecified viral hepatitis C without hepatic coma (12) Laceration of index finger: Status: Acute Code(s): S61.218A - Laceration without foreign body of other finger without damage to nail, initial encounter Plan Patient is a 47-year-old male with history of depression, polysubstance abuse, on Suboxone, who presents for suicidal ideation in the face of withdrawal from opioids, cocaine.? Patient presentation on This admission is very similar to previous admissions. Will continue home medications; will continue Suboxone; patient understands risk of precipitated withdrawal but wants to restart Suboxone now Hospital course: 07/18 patient a little better; withdrawal subsiding; has not scored on CIWA; asks for Wellbutrin to be started and hopes to get into [facility] upon discharge. 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 07/20 Patient reports that he is feeling better and appreciates increased Wellbutrin. Would like it to go back to 450 which is his home dose. Patient shares that he has been out in the milieu more and that he is pushing himself to do so but finds that it is helpful. Vision Teacher discussed report that his roommate said that patient made sexual offer to him; patient adamantly denies this; he says he walked in on his roommate masturbating, 2 times and says that his he was probably embarrassed so made up this accusation but again reiterates he never made any such offer at all. Discussed further with other provider who agrees that the 2 is sufficient. Of note, throughout patient's many admissions there have never been any such allegations or any behavioral problems at all. 07/21 anxious today; says having drug dreams about using; flashbacks about using; continue current tx plan 07/22/22 Insomnia reported. Encourage pt to be up during the day. Remeron 7.5 mg prn insomnia tonight. 07/23 patient reports feeling a little better. Slept better with Remeron; and continue current treatment plan 07/24 no med changes 07/25 increase standing trazodone to 200 mg 07/26 increase gabapentin to 4 times daily dosing due to peripheral neuropathy pain Plan: CV Q 15 minute checks Continue Remeron 7.5 mg q.h.s. Continue Wellbutrin XL 450 mg daily Continue home medications Continue Suboxone 8 mg t.i.d.; patient understands risks of precipitated withdrawal but wants to continue Suboxone anyone Will continue interview when patient is more amenable DC CIWA Ortho recs: X-rays ordered and pending Due to the nature of the injury occurring a week and a half ago there is no orthopedic intervention warrented at this time He may followup out patient once discharged Occupational therapy for ROM. Reason for continued inpatient stay Substantial Risk for: rapid decompensation Time Spent With Patient Time: Total time managing care of this patient today ____ minutes.
[2022-07-26] MEDS: buPROPion HCl XL 150 MG TAB.ER.24H 450 MG PO (08:44)
[2022-07-26] MEDS: Omeprazole 20 MG CAPSULE.DR PO (08:44)
[2022-07-26] MEDS: ARIPiprazole 15 MG TABLET PO (08:44)
[2022-07-26] MEDS: Gabapentin 400 MG CAPSULE 800 MG PO ×4 (08:44→19:53)
[2022-07-26] MEDS: lisinopriL 20 MG TABLET PO (08:44)
[2022-07-26] MEDS: metFORMIN HCl 500 MG TABLET PO ×2 (08:45→16:45)
[2022-07-26] MEDS: amLODIPine Besylate 2.5 MG TABLET PO (08:45)
[2022-07-26] MEDS: Docusate Sodium 100 MG CAPSULE PO ×2 (08:45→19:53)
[2022-07-26] MEDS: Buprenorphine/Naloxone 8/2 mg FILM 1 FILM SUBLINGUAL ×3 (08:48→19:53)
[2022-07-26] MEDS: Finasteride 5 MG TABLET PO (09:03)
--- NOTE | 2022-07-26 10:25 | PC.NURSE ---
while sitting in the kitchen talking to another patient. staff overheard keaton asking if he had a light> staff asked keaton if he had smoking items on him.he denied he stated he didnt want to talk to her and stated he was asking if he had candy on him. will monitor.
[2022-07-26 12:42] LABS: Glucose, Whole Blood 105 mg/dL (60-115)
[2022-07-26 16:13] LABS: Glucose, Whole Blood 137 mg/dL (60-115)
[2022-07-26] MEDS: traZODone HCL 100 MG TABLET 200 MG PO (19:53)
[2022-07-26] MEDS: Tamsulosin HCL 0.4 MG CAPSULE PO (19:53)
[2022-07-27 08:30] VITALS: BP 131/78; PULSE 61; RESP 14; TEMP 36.2; O2SAT 96
[2022-07-27] MEDS: Finasteride 5 MG TABLET PO (08:33)
[2022-07-27] MEDS: Gabapentin 400 MG CAPSULE 800 MG PO ×4 (08:33→20:49)
[2022-07-27] MEDS: ARIPiprazole 15 MG TABLET PO (08:33)
[2022-07-27] MEDS: amLODIPine Besylate 2.5 MG TABLET PO (08:33)
[2022-07-27] MEDS: buPROPion HCl XL 150 MG TAB.ER.24H 450 MG PO (08:33)
[2022-07-27] MEDS: Omeprazole 20 MG CAPSULE.DR PO (08:33)
[2022-07-27] MEDS: lisinopriL 20 MG TABLET PO (08:33)
[2022-07-27] MEDS: metFORMIN HCl 500 MG TABLET PO ×2 (08:33→16:11)
[2022-07-27] MEDS: Docusate Sodium 100 MG CAPSULE PO (08:33)
[2022-07-27] MEDS: Buprenorphine/Naloxone 8/2 mg FILM 1 FILM SUBLINGUAL ×3 (08:34→20:51)
--- NOTE | 2022-07-27 10:44 | HO.PSYCHPN ---
Subjective Subjective Date of Service: 07/27/22 Reason For Visit: Depression/SI Interim History: Met with patient; discussed with team Patient reports he is doing well has a noticeably brighter affect, smiling, social in milieu. Patient reports he safe, medications are working and is looking forward to going to his program. Mental Status Exam Mental Status Exam Narrative: Patient alert, oriented; behavior is engaged, calm, friendly; patient is not in distress; dressed in casual attire, with good hygiene; mood is described as good and affect congruent, relaxed, friendly; eye contact appropriate; Speech is normal rate, volume and prosody; no psychomotor retardation; thought process is goal directed; Thought content is on aftercare, tx; otherwise pertinent to relevant topics and without any delusional content; No sI; no HI. No AVH; Patients insight and judgment fair Diagnostics Vital Signs (24Hr): Vital Signs - 24 hr 07/27/22 08:30 Temperature 97.2 F Pulse Rate 61 Respiratory Rate 14 Blood Pressure 131/78 Pulse Oximetry 96 Oxygen Delivery Method Room Air BMI result Body Mass Index 21.6 Labs 07/16/22 02:08 07/23/22 08:27 Labs: Laboratory Results - last 48 hr 07/25/22 07/26/22 07/26/22 12:11 08:03 12:38 POC Glucose 153 H 88 105 07/26/22 16:09 POC Glucose 137 H Imaging Radiology Impressions: ITS Impressions Hand X-Ray 07/19/22 07:47 IMPRESSION: No acute fracture or dislocation. Medications Medications Current Medications Acetaminophen (Acetaminophen 325 Mg Tablet) 650 mg PO Q6H PRN PRN Reason: Headache/Pain Mild Scale (1-3) Last Admin: 07/21/22 15:41 Dose: 650 mg Al Hydroxide/Mg Hydroxide (Magnesium Hydrox/Alum Hydrox 30 Ml Oral.Susp) 30 ml PO Q6H PRN PRN Reason: Heartburn/Nausea Amlodipine Besylate (Amlodipine Besylate 2.5 Mg Tablet) 2.5 mg PO DAILY [facility]; Protocol Last Admin: 07/27/22 08:33 Dose: 2.5 mg Aripiprazole (Aripiprazole 15 Mg Tablet) 15 mg PO DAILY [facility] Last Admin: 07/27/22 08:33 Dose: 15 mg Buprenorphine/Naloxone (Buprenorphine/Naloxone 8/2 Mg Film) 1 film SUBLINGUAL TID [facility] Last Admin: 07/27/22 08:34 Dose: 1 film Bupropion HCl (Bupropion Hcl Xl 150 Mg Tab.Er.24h) 450 mg PO DAILY [facility] Last Admin: 07/27/22 08:33 Dose: 450 mg Buspirone HCl (Buspirone Hcl 10 Mg Tablet) 10 mg PO TID PRN PRN Reason: anxiety Clonidine HCl (Clonidine Hcl 0.1 Mg Tablet) 0.1 mg PO Q4H PRN; Protocol PRN Reason: anxiety Docusate Sodium (Docusate Sodium 100 Mg Capsule) 100 mg PO BID [facility] Last Admin: 07/27/22 08:33 Dose: 100 mg Finasteride (Finasteride 5 Mg Tablet) 5 mg PO DAILY [facility] Last Admin: 07/27/22 08:33 Dose: 5 mg Gabapentin (Gabapentin 400 Mg Capsule) 800 mg PO QID [facility] Last Admin: 07/27/22 08:33 Dose: 800 mg Hydroxyzine HCl (Hydroxyzine Hcl 50 Mg Tablet) 50 mg PO Q8H PRN PRN Reason: Anxiety Insulin Human Lispro (Insulin Lispro 100 Unit/Ml 3 Ml Vial) 0 unit SUBCUT QIDACHS [facility]; Protocol Last Admin: 07/27/22 08:32 Dose: Not Given Lisinopril (Lisinopril 20 Mg Tablet) 20 mg PO DAILY [facility]; Protocol Last Admin: 07/27/22 08:33 Dose: 20 mg Magnesium Hydroxide (Milk Of Magnesia 30 Ml Oral.Susp) 30 ml PO DAILY PRN PRN Reason: Constipation Metformin HCl (Metformin Hcl 500 Mg Tablet) 500 mg PO BIDWM [facility] Last Admin: 07/27/22 08:33 Dose: 500 mg Mirtazapine (Mirtazapine 7.5 Mg Tablet) 7.5 mg PO BEDTIME PRN PRN Reason: insomnia Last Admin: 07/24/22 20:02 Dose: 7.5 mg Nicotine (Nicotine 21 Mg Patch.Td24) 21 mg TRANSDERMA DAILY [facility] Last Admin: 07/27/22 08:34 Dose: Not Given Nicotine Polacrilex (Nicotine Polacrilex 2 Mg Gum) 4 mg BUCCAL Q2H PRN PRN Reason: Nicotine Cravings Omeprazole (Omeprazole 20 Mg Capsule.Dr) 20 mg PO DAILY [facility] Last Admin: 07/27/22 08:33 Dose: 20 mg Tamsulosin HCl (Tamsulosin Hcl 0.4 Mg Capsule) 0.4 mg PO BEDTIME [facility] Last Admin: 07/26/22 19:53 Dose: 0.4 mg Trazodone HCl (Trazodone Hcl 100 Mg Tablet) 200 mg PO BEDTIME [facility] Last Admin: 07/26/22 19:53 Dose: 200 mg Allergies Allergies Allergy/AdvReac Type Severity Reaction Status Date / Time levofloxacin [From Levaquin] Allergy Intermediate rash Verified 06/21/22 15:30 Assessment & Plan Assessment & Plan (1) Suicidal ideation: Status: Acute Code(s): R45.851 - Suicidal ideations (2) Narcotic drug use: Status: Acute Code(s): F11.90 - Opioid use, unspecified, uncomplicated (3) Cocaine use disorder: Status: Acute Code(s): F14.10 - Cocaine abuse, uncomplicated (4) Opiate dependence: Status: Acute Code(s): F11.20 - Opioid dependence, uncomplicated (5) Polysubstance use disorder: Status: Acute Code(s): F19.90 - Other psychoactive substance use, unspecified, uncomplicated (6) MDD (major depressive disorder), recurrent episode, moderate: Status: Acute Code(s): F33.1 - Major depressive disorder, recurrent, moderate Assessment and Plan: No med changes, sleeping better with remeron (7) DM II (diabetes mellitus, type II), controlled: Status: Acute Code(s): E11.9 - Type 2 diabetes mellitus without complications (8) Drug-induced psychotic disorder: Status: Acute Code(s): F19.959 - Other psychoactive substance use, unspecified with psychoactive substance-induced psychotic disorder, unspecified (9) Opioid use disorder: Status: Acute Code(s): F11.99 - Opioid use, unspecified with unspecified opioid-induced disorder Assessment and Plan: continue suboxone (10) Stimulant use disorder: Status: Acute Code(s): F15.90 - Other stimulant use, unspecified, uncomplicated (11) Hepatitis C: Status: Acute Code(s): B19.20 - Unspecified viral hepatitis C without hepatic coma (12) Laceration of index finger: Status: Acute Code(s): S61.218A - Laceration without foreign body of other finger without damage to nail, initial encounter Plan Patient is a 47-year-old male with history of depression, polysubstance abuse, on Suboxone, who presents for suicidal ideation in the face of withdrawal from opioids, cocaine.? Patient presentation on This admission is very similar to previous admissions. Will continue home medications; will continue Suboxone; patient understands risk of precipitated withdrawal but wants to restart Suboxone now Hospital course: 07/18 patient a little better; withdrawal subsiding; has not scored on CIWA; asks for Wellbutrin to be started and hopes to get into [facility] upon discharge. 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 07/20 Patient reports that he is feeling better and appreciates increased Wellbutrin. Would like it to go back to 450 which is his home dose. Patient shares that he has been out in the milieu more and that he is pushing himself to do so but finds that it is helpful. 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 Discussed further with other provider who agrees that the 2 is sufficient. Of note, throughout patient's many admissions there have never been any such allegations or any behavioral problems at all. 07/21 anxious today; says having drug dreams about using; flashbacks about using; continue current tx plan 07/22/22 Insomnia reported. Encourage pt to be up during the day. Remeron 7.5 mg prn insomnia tonight. 07/23 patient reports feeling a little better. Slept better with Remeron; and continue current treatment plan 07/24 no med changes 07/25 increase standing trazodone to 200 mg 07/26 increase gabapentin to 4 times daily dosing due to peripheral neuropathy pain 07/27 patient in good mood, future oriented, safe, looking forward to discharging going to his program. Patient is not in imminent risk for harm to self or others and he is appropriate to continue treatment in the community. Plan: CV Q 15 minute checks Continue Remeron 7.5 mg q.h.s. p.r.n. Continue Wellbutrin XL 450 mg daily Continue home medications Continue Suboxone 8 mg t.i.d.; patient understands risks of precipitated withdrawal but wants to continue Suboxone anyone Will continue interview when patient is more amenable DC CIWA Ortho recs: X-rays ordered and pending Due to the nature of the injury occurring a week and a half ago there is no orthopedic intervention warrented at this time He may followup out patient once discharged Occupational therapy for ROM. Patient educated on: medication risk/benefits Informed Consent: understands Reason for continued inpatient stay Substantial Risk for: stable for discharge Time Spent With Patient Time: Total time managing care of this patient today ____ minutes.
[2022-07-27] MEDS: Acetaminophen 325 MG TABLET 650 MG PO (10:54)
[2022-07-27] MEDS: Loperamide HCl 2 MG CAPSULE PO (16:09)
--- NOTE | 2022-07-27 16:53 | PM.PSYDC ---
DS: Providers Provider Date of Service: 07/28/22 Date of admission: 07/16/22 15:37 Date of discharge: 07/28/22 Primary care physician: Unknown Physician Attending physician on admission: Tirso Aquino Consults: 07/18/22 15:34 Consult to Orthopedics Routine Consulting Provider: [facility] [place] [facility] Sur[facility] Reason for consultation: left index finger; recent laceration/LROM Attending physician on discharge: Tirso Aquino DS: Diagnosis Discharge Diagnosis (1) Suicidal ideation: Status: Acute (2) Narcotic drug use: Status: Acute (3) Cocaine use disorder: Status: Acute (4) Opiate dependence: Status: Acute (5) Polysubstance use disorder: Status: Acute (6) MDD (major depressive disorder), recurrent episode, moderate: Status: Acute (7) DM II (diabetes mellitus, type II), controlled: Status: Acute (8) Drug-induced psychotic disorder: Status: Acute (9) Opioid use disorder: Status: Acute (10) Stimulant use disorder: Status: Acute (11) Hepatitis C: Status: Acute (12) Laceration of index finger: Status: Acute DS: Medications Discharge Medications Home Medications: Home Medications Medication Instructions Recorded Confirmed hydroxyzine pamoate 50 mg capsule 50 mg PO Q8H PRN Anxiety 07/16/22 07/16/22 Previous Rx's Medication Instructions Recorded acetaminophen 325 mg tablet 650 mg PO Q6H PRN Headache/Pain 07/27/22 Mild Scale (1-3) #0 tabs amlodipine 2.5 mg tablet 2.5 mg PO DAILY 30 days #30 tabs 07/27/22 aripiprazole 15 mg tablet 15 mg PO DAILY 30 days #30 tabs 07/27/22 buprenorphine 8 mg-naloxone 2 mg 1 film sublingual TID 14 days #28 07/27/22 sublingual film (Suboxone) ea bupropion HCl 150 mg 24 hr tablet, 450 mg PO DAILY 30 days #90 tabs 07/27/22 extended release buspirone 10 mg tablet 10 mg PO TID PRN anxiety 30 days 07/27/22 #30 tabs clonidine HCl 0.1 mg tablet 0.1 mg PO Q4H PRN anxiety 30 days 07/27/22 #90 tabs docusate sodium 100 mg capsule 100 mg PO BID 30 days #60 caps 07/27/22 finasteride 5 mg tablet (Proscar) 5 mg PO DAILY 30 days #30 tabs 07/27/22 gabapentin 400 mg capsule 800 mg PO QID 30 days #240 caps 07/27/22 lisinopril 20 mg tablet 20 mg PO DAILY 30 days #30 tabs 07/27/22 metformin 500 mg tablet 500 mg PO BIDWM 30 days #60 tabs 07/27/22 nicotine (polacrilex) 4 mg gum 4 mg buccal Q2H 30 days #100 ea 07/27/22 nicotine 21 mg/24 hr daily 21 mg transdermal DAILY 28 days 07/27/22 transdermal patch #28 ea omeprazole 20 mg capsule,delayed 20 mg PO DAILY 30 days #30 caps 07/27/22 release tamsulosin 0.4 mg capsule 0.4 mg PO BEDTIME 30 days #30 caps 07/27/22 trazodone 100 mg tablet 200 mg PO BEDTIME 30 days #60 tabs 07/27/22 Mental Status Exam Mental Status Exam Narrative: Patient alert, oriented; behavior is engaged, calm, friendly; patient is not in distress; dressed in casual attire, with good hygiene; mood is described as good and affect congruent, relaxed, friendly; eye contact appropriate; Speech is normal rate, volume and prosody; no psychomotor retardation; thought process is goal directed; Thought content is on aftercare, tx; otherwise pertinent to relevant topics and without any delusional content; No sI; no HI. No AVH; Patients insight and judgment fair Data Data Completed and Pending Completed studies during hospitalization [Text1]: 07/20/22 07/21/22 07/21/22 17:03 08:30 11:48 Creatinine Estim Creat Clear Calc Estimated GFR POC Glucose 166 H 116 H 125 H 07/21/22 07/22/22 07/22/22 17:02 08:27 11:52 Creatinine Estim Creat Clear Calc Estimated GFR POC Glucose 136 H 120 H 162 H 07/22/22 07/22/22 07/23/22 16:09 20:34 08:12 Creatinine Estim Creat Clear Calc Estimated GFR POC Glucose 96 117 H 97 07/23/22 07/23/22 07/24/22 08:27 12:05 08:19 Creatinine 0.77 Estim Creat Clear Calc 123.8 Estimated GFR > 60 POC Glucose 115 94 07/24/22 07/24/22 07/25/22 12:21 16:59 08:02 Creatinine Estim Creat Clear Calc Estimated GFR POC Glucose 134 H 151 H 96 07/25/22 07/26/22 07/26/22 12:11 08:03 12:38 Creatinine Estim Creat Clear Calc Estimated GFR POC Glucose 153 H 88 105 07/26/22 16:09 Creatinine Estim Creat Clear Calc Estimated GFR POC Glucose 137 H Imaging Diagnostic Imaging Impressions Hand X-Ray 07/19/22 07:47 IMPRESSION: No acute fracture or dislocation. DS: Summary Hospital Course Hospital Course: HPI: Patient is a 47-year-old male with history of depression, polysubstance abuse, on Suboxone, who presents for suicidal ideation in the face of withdrawal from opioids, cocaine.? Patient presentation on This admission is very similar to previous admissions. Hospital course: 07/18 patient a little better; withdrawal subsiding; has not scored on CIWA; asks for Wellbutrin to be started and hopes to get into [facility] upon discharge. -Patient showed typewriters functional tester his right index finger with distal laceration at most distal joint; patient has sensations but limited mobility; orthopedic consult ordered 07/19 patient improved a little; still depressed with passive intermittent SI but less so; withdrawal seems to be ending; discussed ortho assessment. 07/20 Patient reports that he is feeling better and appreciates increased Wellbutrin. Would like it to go back to 450 which is his home dose. Patient shares that he has been out in the milieu more and that he is pushing himself to do so but finds that it is helpful. Jukebox Checker discussed report that his roommate said that patient made sexual offer to him; patient adamantly denies this; he says he walked in on his roommate masturbating, 2 times and says that his he was probably embarrassed so made up this accusation but again reiterates he never made any such offer at all. Discussed further with other provider who agrees that the 2 is sufficient. Of note, throughout patient's many admissions there have never been any such allegations or any behavioral problems at all. 07/21 anxious today; says having drug dreams about using; flashbacks about using; continue current tx plan 07/22/22 Insomnia reported. Encourage pt to be up during the day. Remeron 7.5 mg prn insomnia tonight. 07/23 patient reports feeling a little better. Slept better with Remeron; and continue current treatment plan 07/24 no med changes 07/25 increase standing trazodone to 200 mg 07/26 increase gabapentin to 4 times daily dosing due to peripheral neuropathy pain -patient did not use Remeron very much so was not continued 07/27 patient is back to baseline. He is in good mood, future oriented, safe, without any SI or HI, sleeping well, eating well and looking forward to discharging going to his program. Patient of course remains vulnerable to both relapse and mood dysregulation; however these are chronic conditions that will not resolve with longer stay on inpatient unit but rather require long-term commitment to outpatient sobriety and therapy, something which patient says he will continue and try to pursue. Patient is not in imminent risk for harm to self or others and he is appropriate to continue treatment in the community. Request for discharge honored. Time spent discussing smoking cessation with patient: 3 to 10 minutes Status at Discharge Functional status at discharge: independent ambulation Overall status at discharge: patient is back to baseline Time Spent with Patient Time attestation: Total time managing care of this patient today ____ minutes. Time spent: Less than 30 minutes Discharge Plan Discharge Anticipated Discharge Date/Time: 07/28/22 08:00 Patient Disposition: Home, Self-Care Discharge Diagnosis: MDD, recurrent, severe with psychotic symptoms, in full remission Referrals: Physician,Unknown J [Primary Care Provider] - 1 Week Discharge Medications: New clonidine HCl 0.1 mg Tablet 0.1 mg PO Q4H PRN (Reason: anxiety) 30 Days Qty: 90 0RF Protocol: Hold for SBP< HOLD for SBP < : 90 gabapentin 400 mg Capsule 800 mg PO QID 30 Days Qty: 240 0RF trazodone 100 mg Tablet 200 mg PO BEDTIME 30 Days Qty: 60 0RF acetaminophen 325 mg Tablet 650 mg PO Q6H PRN (Reason: Headache/Pain Mild Scale (1-3)) Qty: 0 0RF buprenorphine-naloxone [Suboxone] 8-2 mg Film 1 film sublingual TID 14 Days Qty: 28 0RF bupropion HCl 150 mg Tablet Extended Release 24 Hr 450 mg PO DAILY 30 Days Qty: 90 0RF buspirone 10 mg Tablet 10 mg PO TID PRN (Reason: anxiety) 30 Days Qty: 30 0RF Continued hydroxyzine pamoate 50 mg capsule 50 mg PO Q8H PRN (Reason: Anxiety) metformin 500 mg Tablet 500 mg PO BIDWM 30 Days Qty: 60 0RF lisinopril 20 mg tablet 20 mg PO DAILY 30 Days Qty: 30 0RF amlodipine 2.5 mg tablet 2.5 mg PO DAILY 30 Days Qty: 30 0RF tamsulosin 0.4 mg Capsule 0.4 mg PO BEDTIME 30 Days Qty: 30 0RF nicotine 21 mg/24 hr Patch 24 Hour 21 mg transdermal DAILY 28 Days Qty: 28 0RF docusate sodium 100 mg Capsule 100 mg PO BID 30 Days Qty: 60 0RF finasteride [Proscar] 5 mg Tablet 5 mg PO DAILY 30 Days Qty: 30 0RF aripiprazole 15 mg tablet 15 mg PO DAILY 30 Days Qty: 30 0RF Changed nicotine (polacrilex) 4 mg gum 4 mg buccal Q2H 30 Days Qty: 100 0RF omeprazole 20 mg Capsule,Delayed Release(Dr/Ec) 20 mg PO DAILY 30 Days Qty: 30 0RF Discontinued gabapentin 400 mg capsule 800 mg PO TID trazodone 150 mg tablet 150 mg PO BEDTIME Discharge Orders: Discharge Order (Routine); Ordered 07/28/22 Ordered By: Tirso Aquino Diet: Diabetic diet Activity on Discharge: As tolerated Stand Alone Forms: Patient Portal Discharge page Care Plan Goals: Maintain mood and safe behaviors Take medications as prescribed Continue to pursue sobriety Practice coping skills Continue with outpatient providers and reach out to them as needed Health Concerns: Mood stability and behaviors Sobriety recurrent UTI Diabetes Diabetic Neuropathy Plan of Treatment: Follow up with your PCP, psychiatric provider and other outpatient providers regarding above concerns Take medications as prescribed Assessment: Risk assessment at time of discharge:? Patient was interviewed prior to discharge and found to be fully oriented and without any SI or HI. Patient has insight and demonstrates good judgment in terms of wanting to pursue treatment. Patient is not in imminent risk of harm to self or others and has a safety plan that includes presenting to the closest ER or calling 911 if feeling unsafe.? Patient has been observed closely by nursing and unit staff throughout admission; patient has not engaged in any behaviors that suggest dangerousness to self or others and has demonstrated appropriate behaviors and impulse control Patient Instructions: Urinary Tract Infection in Men (ED)
[2022-07-27 17:07] LABS: Glucose, Whole Blood 125 mg/dL (60-115)
[2022-07-27 18:00] VITALS: BP 133/81; PULSE 82; RESP 18; TEMP 36.3; O2SAT 97
[2022-07-27] MEDS: Tamsulosin HCL 0.4 MG CAPSULE PO (20:49)
[2022-07-27] MEDS: Mirtazapine 7.5 MG TABLET PO (20:49)
[2022-07-27] MEDS: traZODone HCL 100 MG TABLET 200 MG PO (20:49)
[2022-07-28] MEDS: Naloxone HCl Nasal TAKE HOME 4 MG SPRAY NOSTRILALT (07:38)
[2022-07-28] MEDS: Buprenorphine/Naloxone 8/2 mg FILM 1 FILM SUBLINGUAL (07:59)
[2022-07-28] MEDS: Gabapentin 400 MG CAPSULE 800 MG PO (07:59)
[2022-07-28] MEDS: ARIPiprazole 15 MG TABLET PO (07:59)
[2022-07-28] MEDS: Omeprazole 20 MG CAPSULE.DR PO (07:59)
[2022-07-28] MEDS: Finasteride 5 MG TABLET PO (07:59)
[2022-07-28] MEDS: Docusate Sodium 100 MG CAPSULE PO (07:59)
[2022-07-28] MEDS: buPROPion HCl XL 150 MG TAB.ER.24H 450 MG PO (07:59)
[2022-07-28] MEDS: lisinopriL 20 MG TABLET PO (07:59)
[2022-07-28] MEDS: metFORMIN HCl 500 MG TABLET PO (07:59)
[2022-07-28] MEDS: amLODIPine Besylate 2.5 MG TABLET PO (07:59)
[2022-07-28 08:00] VITALS: BP 121/76; PULSE 91; RESP 16
== END 2022-07-28 08:35 | disposition home or self-care (01) | DRG 751 ==
LOC: HO.ED 08:19 → HO.PM5 15:40
PROVIDERS: Admitting Provider Psychiatry & Neurology Psychiatry; Emergency Provider Emergency Medicine Emergency Medical Services; Visit Provider Psychiatry & Neurology Psychiatry
DX: F33.1 Major depressive disorder, recurrent, moderate (principal); R45.851 Suicidal ideations; E11.42 Type 2 diabetes mellitus with diabetic polyneuropathy; E78.00 Pure hypercholesterolemia, unspecified; F11.20 Opioid dependence, uncomplicated; F15.10 Other stimulant abuse, uncomplicated; B19.20 Unspecified viral hepatitis C without hepatic coma; N40.0 Benign prostatic hyperplasia without lower urinary tract symptoms; N39.0 Urinary tract infection, site not specified; F14.10 Cocaine abuse, uncomplicated; Z87.440 Personal history of urinary (tract) infections; Z59.02 Unsheltered homelessness; F17.210 Nicotine dependence, cigarettes, uncomplicated; Z71.6 Tobacco abuse counseling; Z20.822 Contact with and (suspected) exposure to COVID-19; Z88.1 Allergy status to other antibiotic agents; Z79.84 Long term (current) use of oral hypoglycemic drugs; Z79.899 Other long term (current) drug therapy
CPT/HCPCS: 36415; 73130; 80053; 80061; 80307; 81001; 82077; 82565; 82947; 83036; 85025; 87635; 93005; 99285; S9485

== ENCOUNTER 2022-09-14 11:05 | Inpatient (IN) | payer MEDICAID, SELFPAY ==
[2022-09-14] VITALS (10 sets, daily range): BP systolic 129–163; BP diastolic 73–97; PULSE 62–99; RESP 12–22; TEMP 37–38.5; O2SAT 96–100; BMI 25.1
--- NOTE | ~2022-09-14 | XR_ITS ---
EXAMINATION: XR CHEST CLINICAL INFORMATION: Fever. COMPARISON: None available. TECHNIQUE: Frontal view of the chest was obtained. FINDINGS: No significant abnormality is noted involving the heart, lungs, mediastinum, bony thorax or soft tissues. XR/XR chest 1V IMPRESSION: No acute cardiopulmonary process.
--- NOTE | ~2022-09-14 | CT_ITS ---
EXAMINATION: CT HEAD WITHOUT CONTRAST CT CERVICAL SPINE WITHOUT CONTRAST CLINICAL INFORMATION: Fall, head strike. COMPARISON: None TECHNIQUE: Contiguous axial imaging was performed from the skull base to vertex without intravenous administration of contrast. Contiguous axial imaging was performed from the upper chest through the skull base without intravenous administration of contrast. Coronal and sagittal reformats were obtained at the acquisition workstation. This CT examination was performed using dose optimization techniques as appropriate, variously including the following: *Automated exposure control *Adjustment of mA and/or kV according to patient size (this includes techniques or standardized protocols for targeted exams where dose is matched to indication/reason for exam; i.e. extremities or head) *Use of iterative reconstruction technique DLP: 593 and 446 mGy-cm FINDINGS: Head: Motion limited examination. There is no evidence of acute intracranial hemorrhage or edematous territorial infarction. A few foci of hypoattenuation in the periventricular and deep white matter are consistent with mild microangiopathy. Cline-white matter differentiation is preserved. Proportional prominence of the ventricles and sulcal spaces. No evidence for obstructive hydrocephalus. No abnormal mass effect or midline shift. No extra-axial fluid collections. No acute soft tissue or osseous abnormalities. Partial opacification of the right maxillary sinus and several ethmoid air cells. Mucosal thickening of the left maxillary sinus. Cervical Spine: Motion limited examination. The atlantooccipital and atlantoaxial articulations remain well aligned. Mild reversal of the cervical lordosis with apex at C5-C6. Otherwise, there is anatomic alignment of the vertebral bodies and posterior elements. No evidence of acute fracture or traumatic subluxation. Mild to moderate multilevel cervical spondylosis with intervertebral disc height loss, small anterior osteophytes and uncovertebral hypertrophy. There is no prevertebral soft tissue swelling. The thyroid gland and remaining cervical soft tissues are normal in appearance. The lung apices demonstrate paraseptal emphysematous changes. CT/CT cervical spine wo IV con IMPRESSION: Examination is limited by motion, however accounting for this limitation, no discrete acute intracranial abnormality nor cervical spine fracture/subluxation are noted. If clinically deemed appropriate a repeat study could be obtained as subtle injuries may be occult.
--- NOTE | 2022-09-14 11:19 | ECG_ITS ---
Test Reason : seizure/sepsis Blood Pressure : / mmHG Vent. Rate : 084 BPM Atrial Rate : 084 BPM P-R Int : 158 ms QRS Dur : 144 ms QT Int : 434 ms P-R-T Axes : 075 045 075 degrees QTc Int : 512 ms Normal sinus rhythm Right bundle branch block Abnormal ECG No previous ECGs available Referred By: Josselyn Ruiz Electronically Signed By:Rodriguez Bourne
[2022-09-14] MEDS: LORazepam 2 MG/ML VIAL IVPUSH (11:29)
--- NOTE | 2022-09-14 11:30 | PC.NURSE ---
Seizure pads placed. fall socks applied, pt immediately removed them.
[2022-09-14] MEDS: 0.9 % Sodium Chloride 1,000 ML 999 ML IV ×2 (11:32→12:42)
--- NOTE | 2022-09-14 11:33 | ED_ITS ---
HPI - Altered Mental Status General Chief Complaint: Altered Mental Status Stated Complaint: 2 BUNDLES/HEROIN USE,?ETOH USE PER EMS Time Seen by Provider: 09/14/22 11:09 Source: patient and EMS Mode of arrival: EMS Limitations: altered mental status History of Present Illness HPI narrative: was found sleeping in alley woken to voice no narcan given he states he fell out has abrasions on his head. MD complaint: altered mental status, confusion and intoxication Onset (ago): unknown Timing confirmed by: other (bystander) Severity: moderate Consistency of symptoms: unknown Context: drug abuse (states he injects heroin and cocaine) Associated symptoms: fever (but cannot tell me how long) Related Data Allergies Allergy/AdvReac Type Severity Reaction Status Date / Time No Known Allergies Allergy Verified 09/14/22 11:18 Review of Systems Review of Systems: ROS unable to be obtained due to altered mental status [facility] Past Medical History Attestation statement: The following information was validated with the patient. Medical History Polysubstance abuse Social History Social History (Updated 09/14/22 @ 12:14 by Josselyn Ruiz DO) Alcohol intake: current Smoked in Last 30 Days: Yes Use of substances other than those prescribed or required for medical reasons: Yes Substance Use Type: Crack/Cocaine and Heroin Substance Use Frequency: Chronic Longstanding Last Used Substance: Just Prior to Admission Advance Directives: No Advance Directives Information Provided: No Physical Exam ED Vital Signs: Vital Signs - 24 hr 09/14/22 11:16 09/14/22 11:41 09/14/22 12:28 Temperature 101.3 F H 99 F Pulse Rate 89 85 73 Respiratory Rate 22 H 18 18 Blood Pressure 140/90 H 144/89 H 141/82 H Pulse Oximetry 97 97 98 Oxygen Delivery Method Room Air Room Air Room Air 09/14/22 13:40 Temperature Pulse Rate 68 Respiratory Rate 22 H Blood Pressure 143/84 H Pulse Oximetry 99 Oxygen Delivery Method Room Air BMI result Body Mass Index 25.1 Appearance: appears under the influence, rubbing nose, making noises scratching himself. Oriented X3. slightly agitated acute distress. Eyes: Pupils equal, round and reactive to light 2mm ENT: Pharynx normal. has abrasions on parietal scalp Neck: Normal inspection. Neck supple. CVS: Normal heart rate and rhythm. Pulses normal. Respiratory: No respiratory distress. Breath sounds normal. Abdomen: Soft and nontender. Skin: Skin warm and dry. Normal skin color. Normal skin turgor. Extremities: No lower extremity edema. track ontiveros do not appear infected Neuro: Oriented X 3. No motor deficit. No sensory deficit. on arrival to room had 1 min GTC seizure - given IV ativan 2mg to break he was postictal then came around and improved. Course Course Course Narrative: UA is positive at this time already given rocephin states he drinks a lot. has had seizures before at this time ETOH 14 so possible ETOH withdrawal I cannot get much history from him - although MCV is not very high, will start on thiamine and low dose phenobarbital Medications Administered Generic Name Dose Route Start Last Admin Trade Name Freq PRN Reason Stop Dose Admin Vancomycin HCl 2,000 mg in 500 mls @ 250 mls/hr 09/14/22 14:18 09/14/22 14:53 Vancomycin/Ns IV 09/14/22 16:17 250 mls/hr ONCE ONE Administration Discontinued Medications Generic Name Dose Route Start Last Admin Trade Name Freq PRN Reason Stop Dose Admin Acetaminophen 650 mg 09/14/22 11:18 09/14/22 11:38 Acetaminophen 325 Mg Tablet PO 09/14/22 11:19 650 mg ONCE ONE Administration Ceftriaxone Sodium 2 gm/ 50 mls @ 100 mls/hr 09/14/22 11:18 09/14/22 12:14 Sodium Chloride IV 09/14/22 11:47 Infused ONCE ONE Infusion Sodium Chloride 1,000 mls @ 999 mls/hr 09/14/22 11:30 09/14/22 12:14 Ns IV 09/14/22 12:30 Infused .Q1H1M SHABBIR Infusion Magnesium Sulfate 2 gm in 50 mls @ 25 mls/hr 09/14/22 12:17 09/14/22 14:46 Magnesium Sulfate/H2o IV 09/14/22 14:16 Infused ONCE ONE Infusion Sodium Chloride 500 mls @ 500 mls/hr 09/14/22 12:30 09/14/22 14:04 Ns IV 09/14/22 13:29 Infused .Q1H SHABBIR Infusion Sodium Chloride 1,000 mls @ 999 mls/hr 09/14/22 12:30 09/14/22 14:04 Ns IV 09/14/22 13:30 Infused .Q1H1M SHABBIR Infusion Thiamine HCl 100 mg/ Sodium 101 mls @ 202 mls/hr 09/14/22 14:17 09/14/22 14:51 Chloride IV 09/14/22 14:46 202 mls/hr ONCE ONE Administration Lorazepam 2 mg 09/14/22 11:26 09/14/22 11:29 Lorazepam 2 Mg/Ml Vial IVPUSH 09/14/22 11:27 2 mg ONCE ONE Administration Ondansetron HCl 4 mg 09/14/22 11:26 09/14/22 11:38 Ondansetron Hcl 4 Mg/2 Ml Vial IVPUSH 09/14/22 11:27 4 mg ONCE ONE Administration Phenobarbital Sodium 226 mg 09/14/22 14:45 09/14/22 14:53 Phenobarbital Sodium 130 Mg/Ml Im Once IM 09/14/22 14:46 226 mg ONCE ONE Administration Medical Decision Making Medical Decision Making MDM Narrative: 47 yo male with hx of polysubstance abuse who comes in after falling out and found down with abrasions on head he then was found to have a fever of 101.3 in active IVDA - labs, cultures, ceftriaxone ordered for possible endocarditis he can give no history. I have ordered CT head and cspine as well to rule ICH and trauma. If no acute findings he may also need LP to rule out meningitis if no findings for fever. He is a very poor historian. Differential Diagnosis Differential Diagnoses: The differential diagnosis associated with the presentation includes pneumonia, substance abuse reaction, endocarditis, COVID, alcohol withdrawal Admission/Observation Consideration of admission/observation: Escalation of care including admission/observation considered Consult Healthcare Provider Management of the patient was discussed with: Hospitalist Lab Data [facility] Lab Attestation statement: I reviewed the patient's lab results. 09/14/22 11:51 09/14/22 11:51 Labs: Lab Results 09/14/22 09/14/22 09/14/22 Range/Units 11:51 11:51 11:51 WBC 6.4 (4.8-10.8) X10*3/uL RBC 4.72 (4.60-5.80) X10*6/uL Hgb 13.7 L (14.0-18.0) g/dl Hct 41.1 L (42.0-52.0) % MCV 87.1 (80.0-98.0) fL MCH 29.0 (27.0-33.0) pg MCHC 33.3 (31.0-36.0) g/dl RDW 13.2 (11.0-16.0) % Plt Count 240 (160-400) X10*3/uL MPV 9.3 L (9.4-12.4) fL Immature Gran % (Auto) 0.3 (0.0-0.4) % Neut % (Auto) 76.2 H (45-73) % Lymph % (Auto) 13.2 L (20-40) % [place] % (Auto) 9.8 (2-11) % Eos % (Auto) 0.0 (0-4) % Baso % (Auto) 0.5 (0-2) % Lymph # (Auto) 0.9 L (1.2-4.9) X10*3/uL [place] # (Auto) 0.6 (0.1-1.2) X10*3/uL Eos # (Auto) 0.0 (0.0-0.4) X10*3/uL Baso # (Auto) 0.0 (0.0-0.2) X10*3/uL Abs Immat Gran (auto) 0.02 (0.00-0.03) X10*3/uL Absolute Neuts (auto) 4.9 (2.0-8.3) x10*3/uL Absolute Nucleated RBC 0.000 (0.0-0.012) X10*3/uL Nucleated RBC % (auto) 0.0 (0.0-0.2) /100WBC PT 12.6 (10.0-13.1) SEC INR 1.1 (0.9-1.1) Sodium 134 L (135-145) mmol/L Potassium 3.6 (3.3-5.1) mmol/L Chloride 98 (96-108) mmol/L Carbon Dioxide 25 (22-29) mmol/L Anion Gap 15 (12-20) BUN 9 (9-16) mg/dL Creatinine 0.75 (0.5-1.4) mg/dL Estim Creat Clear Calc 124.3 Estimated GFR > 60 Random Glucose 96 (60-115) mg/dL Lactic Acid (0.5-2.0) mmol/L Lactic Acid F/U @ 2Hr (0.5-2.0) mmol/L Calcium 8.6 (8.4-10.2) mg/dL Magnesium 1.9 (1.6-2.6) mg/dL Total Bilirubin 0.6 (0.0-1.0) mg/dL Direct Bilirubin 0.3 (0.0-0.5) mg/dL AST 43 H (5-37) U/L ALT 25 (0-40) U/L Alkaline Phosphatase 55 (39-117) U/L Total Creatine Kinase 678 H (38-174) U/L Troponin I High Sens (<3.5-35.0) ng/L Total Protein 7.0 (6.5-8.0) g/dL Albumin 3.5 (3.5-5.0) g/dL Lipase 7 L (8-78) U/L Procalcitonin 0.05 ng/mL Urine Color Urine Appearance Urine pH (5.0-9.0) Ur Specific [place] (1.005-1.025) Urine Protein (Neg-Trace) mg/dL Urine Glucose (UA) (Negative) mg/dL Urine Ketones (Negative) mg/dL Urine Blood (Negative) Urine Nitrite (Negative) Ur Leukocyte Esterase (Negative) Urine RBC (0-2) /HPF Urine WBC (0-5) /HPF Ur Squamous Epith Cells (0-2) /HPF Urine Bacteria (None Seen) Hyaline Casts (0-2) /LPF Ethyl Alcohol 14 mg/dL COVID-19 (DELIO) (Negative) COVID-19 Clin Com Influenza Type A (TERRENCE) (Negative) Influenza Type B (TERRENCE) (Negative) Influenza A & B Note 09/14/22 09/14/22 09/14/22 Range/Units 11:51 11:51 11:52 WBC (4.8-10.8) X10*3/uL RBC (4.60-5.80) X10*6/uL Hgb (14.0-18.0) g/dl Hct (42.0-52.0) % MCV (80.0-98.0) fL MCH (27.0-33.0) pg MCHC (31.0-36.0) g/dl RDW (11.0-16.0) % Plt Count (160-400) X10*3/uL MPV (9.4-12.4) fL Immature Gran % (Auto) (0.0-0.4) % Neut % (Auto) (45-73) % Lymph % (Auto) (20-40) % [place] % (Auto) (2-11) % Eos % (Auto) (0-4) % Baso % (Auto) (0-2) % Lymph # (Auto) (1.2-4.9) X10*3/uL [place] # (Auto) (0.1-1.2) X10*3/uL Eos # (Auto) (0.0-0.4) X10*3/uL Baso # (Auto) (0.0-0.2) X10*3/uL Abs Immat Gran (auto) (0.00-0.03) X10*3/uL Absolute Neuts (auto) (2.0-8.3) x10*3/uL Absolute Nucleated RBC (0.0-0.012) X10*3/uL Nucleated RBC % (auto) (0.0-0.2) /100WBC PT (10.0-13.1) SEC INR (0.9-1.1) Sodium (135-145) mmol/L Potassium (3.3-5.1) mmol/L Chloride (96-108) mmol/L Carbon Dioxide (22-29) mmol/L Anion Gap (12-20) BUN (9-16) mg/dL Creatinine (0.5-1.4) mg/dL Estim Creat Clear Calc Estimated GFR Random Glucose (60-115) mg/dL Lactic Acid 6.1 H* (0.5-2.0) mmol/L Lactic Acid F/U @ 2Hr (0.5-2.0) mmol/L Calcium (8.4-10.2) mg/dL Magnesium (1.6-2.6) mg/dL Total Bilirubin (0.0-1.0) mg/dL Direct Bilirubin (0.0-0.5) mg/dL AST (5-37) U/L ALT (0-40) U/L Alkaline Phosphatase (39-117) U/L Total Creatine Kinase (38-174) U/L Troponin I High Sens 8.6 (<3.5-35.0) ng/L Total Protein (6.5-8.0) g/dL Albumin (3.5-5.0) g/dL Lipase (8-78) U/L Procalcitonin ng/mL Urine Color Urine Appearance Urine pH (5.0-9.0) Ur Specific [place] (1.005-1.025) Urine Protein (Neg-Trace) mg/dL Urine Glucose (UA) (Negative) mg/dL Urine Ketones (Negative) mg/dL Urine Blood (Negative) Urine Nitrite (Negative) Ur Leukocyte Esterase (Negative) Urine RBC (0-2) /HPF Urine WBC (0-5) /HPF Ur Squamous Epith Cells (0-2) /HPF Urine Bacteria (None Seen) Hyaline Casts (0-2) /LPF Ethyl Alcohol mg/dL COVID-19 (DELIO) Negative (Negative) COVID-19 Clin Com See Note Influenza Type A (TERRENCE) (Negative) Influenza Type B (TERRENCE) (Negative) Influenza A & B Note 09/14/22 09/14/22 09/14/22 Range/Units 11:52 13:23 13:51 WBC (4.8-10.8) X10*3/uL RBC (4.60-5.80) X10*6/uL Hgb (14.0-18.0) g/dl Hct (42.0-52.0) % MCV (80.0-98.0) fL MCH (27.0-33.0) pg MCHC (31.0-36.0) g/dl RDW (11.0-16.0) % Plt Count (160-400) X10*3/uL MPV (9.4-12.4) fL Immature Gran % (Auto) (0.0-0.4) % Neut % (Auto) (45-73) % Lymph % (Auto) (20-40) % [place] % (Auto) (2-11) % Eos % (Auto) (0-4) % Baso % (Auto) (0-2) % Lymph # (Auto) (1.2-4.9) X10*3/uL [place] # (Auto) (0.1-1.2) X10*3/uL Eos # (Auto) (0.0-0.4) X10*3/uL Baso # (Auto) (0.0-0.2) X10*3/uL Abs Immat Gran (auto) (0.00-0.03) X10*3/uL Absolute Neuts (auto) (2.0-8.3) x10*3/uL Absolute Nucleated RBC (0.0-0.012) X10*3/uL Nucleated RBC % (auto) (0.0-0.2) /100WBC PT (10.0-13.1) SEC INR (0.9-1.1) Sodium (135-145) mmol/L Potassium (3.3-5.1) mmol/L Chloride (96-108) mmol/L Carbon Dioxide (22-29) mmol/L Anion Gap (12-20) BUN (9-16) mg/dL Creatinine (0.5-1.4) mg/dL Estim Creat Clear Calc Estimated GFR Random Glucose (60-115) mg/dL Lactic Acid (0.5-2.0) mmol/L Lactic Acid F/U @ 2Hr 0.7 (0.5-2.0) mmol/L Calcium (8.4-10.2) mg/dL Magnesium (1.6-2.6) mg/dL Total Bilirubin (0.0-1.0) mg/dL Direct Bilirubin (0.0-0.5) mg/dL AST (5-37) U/L ALT (0-40) U/L Alkaline Phosphatase (39-117) U/L Total Creatine Kinase (38-174) U/L Troponin I High Sens (<3.5-35.0) ng/L Total Protein (6.5-8.0) g/dL Albumin (3.5-5.0) g/dL Lipase (8-78) U/L Procalcitonin ng/mL Urine Color Yellow Urine Appearance Hazy Urine pH 6.5 (5.0-9.0) Ur Specific [place] 1.015 (1.005-1.025) Urine Protein Trace (Neg-Trace) mg/dL Urine Glucose (UA) Negative (Negative) mg/dL Urine Ketones Negative (Negative) mg/dL Urine Blood Trace H (Negative) Urine Nitrite Positive H (Negative) Ur Leukocyte Esterase Small (1+) H (Negative) Urine RBC 0-2 (0-2) /HPF Urine WBC 21-50 H (0-5) /HPF Ur Squamous Epith Cells 0-2 (0-2) /HPF Urine Bacteria 1+ (None Seen) Hyaline Casts 0-2 (0-2) /LPF Ethyl Alcohol mg/dL COVID-19 (DELIO) (Negative) COVID-19 Clin Com Influenza Type A (TERRENCE) Negative (Negative) Influenza Type B (TERRENCE) Negative (Negative) Influenza A & B Note See Note Independent Interpretation I performed an independent interpretation of an: EKG, Plain X-Ray and CT Scan Interpretation: Rate: 84 Rhythm: NSR [place]: normal Normal P waves. Normal EMELYN. RBBB ST T wave : inverte T waves V1-V4, no VALORIE qTC: prolonged prior studies: no prior The study has been interpreted contemporaneously by me. . Independent Historian Clinical information obtained from an independent historian. History obtained from or confirmed by: EMS Social Determinants Patient?s care significantly limited by Social Determinants of Health including: Inadequate housing and Problems related to primary support group Procedures EJ/Peripheral Line Neck L: Time Out Performed: Yes Skin Cleansed in Sterile Fashion: Yes Size (gauge): 18 IV Secured and Dressing Applied: Yes Patient Tolerated Procedure: well and no complications Discharge Plan Discharge Clinical Impression: Seizure, Polysubstance abuse, Acute febrile illness, Acute UTI Patient Disposition: Admitted As Inpatient
[2022-09-14] MEDS: ondansetron HCL 4 MG/2 ML VIAL IVPUSH (11:38)
[2022-09-14] MEDS: Acetaminophen 325 MG TABLET 650 MG PO (11:38)
--- NOTE | 2022-09-14 11:47 | PC.NURSE ---
Just following initial assessment pt noted by staff to be seizing, eyes fixed to the R with tonic clonic activity. md at bedside, pt positioned for safety, security assisting with hold. medicated with ativan.
[2022-09-14] MEDS: cefTRIAXone sodium 2 GM in 0.9 % Sodium Chloride 50 ML IV (11:52)
[2022-09-14 12:01] LABS: MANUAL DIFF FLAG NO
[2022-09-14 12:08] LABS: Basophils Percent Auto 0.5 % (0-2); Hematocrit 41.1 % (42.0-52.0); Hemoglobin 13.7 g/dl (14.0-18.0); Imm Gran Abs Auto 0.02 X10*3/uL (0.00-0.03); Imm Gran Pct Auto 0.3 % (0.0-0.4); Lymphocytes Absolute Auto 0.9 X10*3/uL (1.2-4.9); Lymphocytes Percent Auto 13.2 % (20-40); Mean Corpuscular HGB Conc 33.3 g/dl (31.0-36.0); Mean Corpuscular Volume 87.1 fL (80.0-98.0); Mean Platelet Volume 9.3 fL (9.4-12.4); Monocytes Absolute Auto 0.6 X10*3/uL (0.1-1.2); Monocytes Percent Auto 9.8 % (2-11); Neutrophils Absolute Auto 4.9 x10*3/uL (2.0-8.3); Neutrophils Percent Auto 76.2 % (45-73); Platelet Count 240 X10*3/uL (160-400); Red Blood Count 4.72 X10*6/uL (4.60-5.80); Red Cell Distribution Width 13.2 % (11.0-16.0); White Blood Count 6.4 X10*3/uL (4.8-10.8)
[2022-09-14 12:22] LABS: INTERNATIONAL NORM RATIO 1.1 (0.9-1.1); Prothrombin Time 12.6 SEC (10.0-13.1)
[2022-09-14 12:27] LABS: COVID-19 Test Negative (Negative); IDNOW Serial# 08D9AD1C; IDNOW Serial# BCCEAD1C; Influenza A Negative (Negative); Influenza B2 Negative (Negative)
[2022-09-14 12:28] LABS: Lactic Acid 6.1 mmol/L (0.5-2.0); Troponin-I High Sensitivity 8.6 ng/L (<3.5-35.0)
[2022-09-14 12:32] LABS: Alanine Aminotransferase 25 U/L (0-40); Albumin Level 3.5 g/dL (3.5-5.0); Alkaline Phosphatase 55 U/L (39-117); Anion Gap 15 (12-20); Aspartate Amino Transferase 43 U/L (5-37); Bilirubin Direct 0.3 mg/dL (0.0-0.5); Bilirubin Total 0.6 mg/dL (0.0-1.0); Blood Urea Nitrogen 9 mg/dL (9-16); Calcium 8.6 mg/dL (8.4-10.2); Carbon Dioxide 25 mmol/L (22-29); Chloride 98 mmol/L (96-108); Creatinine Clr Calc Pharmacy 124.3; Estimated Glomerular Filt Rate > 60; Glucose Random 96 mg/dL (60-115); Lipase 7 U/L (8-78); Magnesium 1.9 mg/dL (1.6-2.6); Potassium 3.6 mmol/L (3.3-5.1); Sodium 134 mmol/L (135-145)
[2022-09-14 12:42] LABS: Procalcitonin 0.05 ng/mL
[2022-09-14] MEDS: Magnesium Sulfate/H2O 2 GM/50 ML PIGGYBACK IV (12:42)
[2022-09-14] MEDS: 0.9 % Sodium Chloride 500 ML IV (12:42)
[2022-09-14 12:56] LABS: Ethanol 14 mg/dL
[2022-09-14 13:39] LABS: Appearance Urine Hazy; Color Urine Yellow; Glucose Urine UA Negative (Negative); Leukocyte Esterase Urine Small (1+) (Negative); Nitrite Urine Positive (Negative); PH 6.5 (5.0-9.0); Specific Gravity - Urine 1.015 (1.005-1.025); UMIC TRIGGER UACC YES; Urine Blood Trace (Negative); Urine Ketones Negative (Negative); Urine Protein Trace mg/dL (Neg-Trace)
[2022-09-14 13:45] LABS: Bacteria Urine 1+ (None Seen); Hyaline Casts Urine 0-2 /LPF (0-2); RBC Urine 0-2 /HPF (0-2); Squamous Epithelial Cell Urine 0-2 /HPF (0-2); UACC Culture Trigger YES; WBC Urine 21-50 /HPF (0-5)
[2022-09-14 13:59] LABS: Reflex Lactate? Lactic Acid Added
[2022-09-14 14:41] LABS: ~Lactic Acid-LAB USE ONLY 0.7 mmol/L (0.5-2.0)
[2022-09-14] MEDS: Thiamine HCL 100 MG in 0.9 % Sodium Chloride 100 ML 202 MG IV (14:51)
[2022-09-14] MEDS: PHENobarbitaL sodium 130 MG/ML IM ONCE 226 MG IM (14:53)
[2022-09-14] MEDS: vancomycin/NS 2,000 MG/500 ML PLAST..BAG 250 MG IV (14:53)
--- NOTE | 2022-09-14 15:54 | PM.IMHP ---
History of Present Illness Date of Service: 09/14/22 Chief Complaint: altered mentation, fever, seizure A 47 years old male with PMH of IVDU, alcoholism who was found down and brought to the hospital with fever, altered mentation and developed seizure in ED. Patient is very poor historian, was in post-ictal status and had Ativan given at time of interview. Information from EMR and ED physician. reported significant history of alcohol intake. found with low alcohol level found to have abrasion in head, reported a fall when he was found down. In ED, CT scan was negative for acute findings. Neck CT with no injuries reported. UA showed possible infection. admitted for further eval. Review of Systems Review of Systems: Yes Unobtainable due to mental status PMFSH Medical History Polysubstance abuse Social History Alcohol intake: current Smoked in Last 30 Days: Yes Use of substances other than those prescribed or required for medical reasons: Yes Substance Use Type: Crack/Cocaine and Heroin Substance Use Frequency: Chronic Longstanding Last Used Substance: Just Prior to Admission Advance Directives: No Advance Directives Information Provided: No Meds Allergies Allergy/AdvReac Type Severity Reaction Status Date / Time No Known Allergies Allergy Verified 09/14/22 11:18 Active Medications: Current Medications Acetaminophen (Acetaminophen 325 Mg Tablet) 650 mg PO Q6H PRN PRN Reason: Pain, Mild (Pain Scale 1-3) Enoxaparin Sodium (Enoxaparin Sodium 40 Mg/0.4 Ml Syringe) 40 mg SUBCUT Q24H [facility] Vancomycin HCl (Vancomycin/Ns) 2,000 mg in 500 mls @ 250 mls/hr IV ONCE ONE Stop: 09/14/22 16:17 Last Admin: 09/14/22 14:53 Dose: 250 mls/hr Ceftriaxone Sodium 1 gm/ (Sodium Chloride) 50 mls @ 100 mls/hr IV Q24H [facility] Ketorolac Tromethamine (Ketorolac Tromethamine 30 Mg/Ml Vial) 15 mg IVPUSH Q6H PRN PRN Reason: Pain, Mild (Pain Scale 1-3) Stop: 09/19/22 15:47 Lorazepam (Lorazepam 2 Mg/Ml Vial) 2 mg IVPUSH ONCE PRN PRN Reason: Seizures Ondansetron HCl (Ondansetron Hcl 4 Mg/2 Ml Vial) 4 mg IVPUSH Q8H PRN PRN Reason: Nausea and Vomiting Pharmacy Consult (Consult Rx Etoh Phenob Po Only) 1 each MISCELLANE ONCE PRN; Protocol PRN Reason: Consult order Pharmacy Consult (Consult Rx Perform Med Rec) 1 each MISCELLANE ONCE PRN PRN Reason: Consult order Pharmacy Consult (Consult Rx Vancomycin Dosing) 1 each MISCELLANE DAILY PRN PRN Reason: Consult order Phenobarbital (Phenobarbital 15 Mg Tablet) 45 mg PO BID [facility] Stop: 09/16/22 21:01 Phenobarbital (Phenobarbital 30 Mg Tablet) 30 mg PO BID [facility] Stop: 09/18/22 21:01 Phenobarbital (Phenobarbital 15 Mg Tablet) 15 mg PO DAILY [facility] Stop: 09/20/22 09:01 Phenobarbital Sodium (Phenobarbital Sodium 130 Mg/Ml Vial Im Q3hx2) 170 mg IM Q3H [facility] Stop: 09/14/22 21:01 Sodium Chloride (0.9 % Sodium Chloride Flush 3 Ml Syringe) 3 ml IVFLUSH QSHIFT [facility] Physical Exam Vital Signs and Narrative: Vital Signs: Last Vital Signs Temp 99 F 09/14/22 12:28 Pulse 68 09/14/22 13:40 Resp 22 H 09/14/22 13:40 BP 143/84 H 09/14/22 13:40 Pulse Ox 99 09/14/22 13:40 O2 Del Method Room Air 09/14/22 13:40 BMI result Body Mass Index 25.1 Const: Other: Constitutional : Awake with stimulation but goes back to sleep quickly, not in distress Neck : Normal inspection, Supple Cardiovascular : RRR, no JVP, no lower extremity edema Respiratory : good bilateral air entry, no crackles, wheezes or rhonchi Gastrointestinal: soft, lax, Normal bowel sounds, Non tender Skin : Warm, Dry Neurological : disoriented, moving extremities Results Labs 09/14/22 11:51 09/14/22 11:51 Labs: Laboratory Results - last 24 hr 09/14/22 09/14/22 09/14/22 11:51 11:51 11:51 MCV 87.1 MCH 29.0 MCHC 33.3 RDW 13.2 Plt Count 240 MPV 9.3 L Immature Gran % (Auto) 0.3 Neut % (Auto) 76.2 H Lymph % (Auto) 13.2 L [place] % (Auto) 9.8 Eos % (Auto) 0.0 Baso % (Auto) 0.5 Lymph # (Auto) 0.9 L [place] # (Auto) 0.6 Eos # (Auto) 0.0 Baso # (Auto) 0.0 Abs Immat Gran (auto) 0.02 Absolute Neuts (auto) 4.9 Absolute Nucleated RBC 0.000 Nucleated RBC % (auto) 0.0 PT 12.6 INR 1.1 Anion Gap 15 Estim Creat Clear Calc 124.3 Estimated GFR > 60 Random Glucose 96 Lactic Acid Lactic Acid F/U @ 2Hr Calcium 8.6 Magnesium 1.9 Total Bilirubin 0.6 Direct Bilirubin 0.3 AST 43 H ALT 25 Alkaline Phosphatase 55 Total Creatine Kinase 678 H Troponin I High Sens Total Protein 7.0 Albumin 3.5 Lipase 7 L Procalcitonin 0.05 Urine Color Urine Appearance Urine pH Ur Specific [place] Urine Protein Urine Glucose (UA) Urine Ketones Urine Blood Urine Nitrite Ur Leukocyte Esterase Urine RBC Urine WBC Ur Squamous Epith Cells Urine Bacteria Hyaline Casts Ethyl Alcohol 14 COVID-19 ([facility]IO) COVID-19 Clin Com Influenza Type A (TERRENCE) Influenza Type B (TERRENCE) Influenza A & B Note 09/14/22 09/14/22 09/14/22 11:51 11:51 11:52 MCV MCH MCHC RDW Plt Count MPV Immature Gran % (Auto) Neut % (Auto) Lymph % (Auto) [place] % (Auto) Eos % (Auto) Baso % (Auto) Lymph # (Auto) [place] # (Auto) Eos # (Auto) Baso # (Auto) Abs Immat Gran (auto) Absolute Neuts (auto) Absolute Nucleated RBC Nucleated RBC % (auto) PT INR Anion Gap Estim Creat Clear Calc Estimated GFR Random Glucose Lactic Acid 6.1 H* Lactic Acid F/U @ 2Hr Calcium Magnesium Total Bilirubin Direct Bilirubin AST ALT Alkaline Phosphatase Total Creatine Kinase Troponin I High Sens 8.6 Total Protein Albumin Lipase Procalcitonin Urine Color Urine Appearance Urine pH Ur Specific [place] Urine Protein Urine Glucose (UA) Urine Ketones Urine Blood Urine Nitrite Ur Leukocyte Esterase Urine RBC Urine WBC Ur Squamous Epith Cells Urine Bacteria Hyaline Casts Ethyl Alcohol COVID-19 ([facility]IO) Negative COVID-19 Clin Com See Note Influenza Type A (TERRENCE) Influenza Type B (TERRENCE) Influenza A & B Note 09/14/22 09/14/22 09/14/22 11:52 13:23 13:51 MCV MCH MCHC RDW Plt Count MPV Immature Gran % (Auto) Neut % (Auto) Lymph % (Auto) [place] % (Auto) Eos % (Auto) Baso % (Auto) Lymph # (Auto) [place] # (Auto) Eos # (Auto) Baso # (Auto) Abs Immat Gran (auto) Absolute Neuts (auto) Absolute Nucleated RBC Nucleated RBC % (auto) PT INR Anion Gap Estim Creat Clear Calc Estimated GFR Random Glucose Lactic Acid Lactic Acid F/U @ 2Hr 0.7 Calcium Magnesium Total Bilirubin Direct Bilirubin AST ALT Alkaline Phosphatase Total Creatine Kinase Troponin I High Sens Total Protein Albumin Lipase Procalcitonin Urine Color Yellow Urine Appearance Hazy Urine pH 6.5 Ur Specific [place] 1.015 Urine Protein Trace Urine Glucose (UA) Negative Urine Ketones Negative Urine Blood Trace H Urine Nitrite Positive H Ur Leukocyte Esterase Small (1+) H Urine RBC 0-2 Urine WBC 21-50 H Ur Squamous Epith Cells 0-2 Urine Bacteria 1+ Hyaline Casts 0-2 Ethyl Alcohol COVID-19 ([facility]IO) COVID-19 Clin Com Influenza Type A (TERRENCE) Negative Influenza Type B (TERRENCE) Negative Influenza A & B Note See Note Imaging Radiologist's Impressions: Impressions Chest X-Ray 09/14/22 11:55 IMPRESSION: No acute cardiopulmonary process. Cervical Spine CT 09/14/22 13:41 IMPRESSION: Examination is limited by motion, however accounting for this limitation, no discrete acute intracranial abnormality nor cervical spine fracture/subluxation are noted. If clinically deemed appropriate a repeat study could be obtained as subtle injuries may be occult. Head CT 09/14/22 13:41 IMPRESSION: Examination is limited by motion, however accounting for this limitation, no discrete acute intracranial abnormality nor cervical spine fracture/subluxation are noted. If clinically deemed appropriate a repeat study could be obtained as subtle injuries may be occult. Assessment and Plan (1) Seizure: Status: Acute (2) Polysubstance abuse: Status: Acute (3) Acute UTI: Status: Acute (4) Sepsis: Status: Acute Plan A 47 years old male with PMH of IVDU, alcoholism who was found down and brought to the hospital with fever, altered mentation and developed seizure in ED. Sepsis 2/2 UTI Pending cultures Continue Ceftriaxone Empirical Vancomycin w fever and AMS pending final blood culture Toxic metabolic encephalopathy Multifactorial; seizure, drugs, alcohol, infection treat underlying problems recurrent reorientation Seizure patient unable to provide any history could be related to alcohol withdrawal pending urine tox on Phenobarbital Ativan PRN seizure precautions Alcohol abuse with withdrawal Phenobarbital protocol Folate and thiamine Lactic acidosis Likely related to seizure activity not severe sepsis Elevated CK likely from seizure IVF follow CK DVT PPx Lovenox The patient will need 2 overnight hospital stay at least for management of above problems pending final blood culture Time Spent With Patient Time: Total time managing care of this patient today ____ minutes. Quality Stroke Does the patient have a stroke diagnosis?: No VTE Prior VTE?: No VTE Risk Level:: Medical - moderate - high VTE Device Contraindication: Treatment Not Indicated VTE Drug Contraindication: N/A - Med Ordered
[2022-09-14] MEDS: Enoxaparin Sodium 40 MG/0.4 ML SYRINGE SUBCUT (16:06)
--- NOTE | 2022-09-14 16:08 | PHA.PROG ---
Admission Date/Time: Indication:SEPSIS Weight in k.111 kg Serum Creatinine - Last 168 Hours 09/14/22 11:51 Creatinine 0.75 Estimated CrCl and GFR - Last 168 Hours 09/14/22 11:51 Estim Creat Clear Calc 124.3 Estimated GFR > 60 Vancomycin Loading Dose: 2000 Current Vancomycin Dosing Regimen: 1250 Q 12H Vancomycin Monitoring using AUC goal of 400 - 600 range with trough as surrogate marker: 503 Date and Time for next Vancomycin Level to be drawn: Pharmacist Comments on Vancomycin Plan: Vancomycin dosing will take advantage of [employer] as a clinical decision support tool that uses Bayesian modeling to calculate individual patient's pharmacokinetic parameters and forecast the patient's drug concentration time course with the target goal AUC 24 range of 400 - 600 mg/L/hr.
[2022-09-14 17:21] LABS: Amphetamine Screen Urine Not Detected (Not Detect); Barbiturates, Urine POSITIVE (Not Detect); Benzodiazepines Screen Urine Not Detected (Not Detect); Cannabinoid Screen Urine Not Detected (Not Detect); Cocaine Screen Urine POSITIVE (Not Detect); Fentanyl, urine POSITIVE (Not Detect); Opiate Screen Urine Not Detected (Not Detect); Phencyclidine Screen Urine Not Detected (Not Detect)
[2022-09-14] MEDS: 0.9 % Sodium Chloride 1,000 ML 100 ML IVCONT (18:14)
[2022-09-14] MEDS: PHENobarbitaL sodium 130 MG/ML VIAL IM Q3Hx2 170 MG IM ×2 (18:20→22:06)
--- NOTE | 2022-09-14 18:52 | MHC.CM.PN ---
CM attempted to meet with admitted patient with bed assignment pending. Pt sleeping soundly. Recently medicated for alcohol withdrawal. Will attempt to meet with patient when awake to discuss discharge planning.
--- NOTE | 2022-09-14 19:15 | PC.NURSE ---
This marketing copywriter assumed care of this Pt at 1900. Pt appears to be sleeping, rousable to tactile stimulation, states I don't know what happened and back to sleep. IV fluids running as ordered. Seizure precautions in place, will CTM.
--- NOTE | 2022-09-14 22:04 | PC.NURSE ---
Pt awakened, sitting at edge of stretcher using bedside urinal.
[2022-09-15] VITALS (9 sets, daily range): BP systolic 151–205; BP diastolic 85–105; PULSE 48–64; RESP 16–24; TEMP 36.5–37.3; O2SAT 94–100
--- NOTE | 2022-09-15 03:39 | MHC.EDTECH ---
This tech assumed care of patient at 0315, Vitals taken, patient urinated 400cc in urinal, patient is resting comfortable at this time. Call rosa within reach
[2022-09-15] MEDS: 0.9 % Sodium Chloride 1,000 ML 100 ML IVCONT ×2 (03:43→12:25)
--- NOTE | 2022-09-15 04:58 | PC.NURSE ---
Pt contionues lying on stretcher, eyes closed, eaily rousable, no acute distress, WCTM
--- NOTE | 2022-09-15 06:04 | MHC.EDTECH ---
Vitals taken, patient was given 2 cups of water. Patient's belongings were brought to [facility] on arrival. belonging list completed.
[2022-09-15 06:18] LABS: Hematocrit 39.3 % (42.0-52.0); Hemoglobin 13.1 g/dl (14.0-18.0); Mean Corpuscular HGB Conc 33.3 g/dl (31.0-36.0); Mean Corpuscular Hemoglobin 29.4 pg (27.0-33.0); Mean Corpuscular Volume 88.3 fL (80.0-98.0); Mean Platelet Volume 9.9 fL (9.4-12.4); Platelet Count 228 X10*3/uL (160-400); Red Blood Count 4.45 X10*6/uL (4.60-5.80); Red Cell Distribution Width 13.4 % (11.0-16.0); White Blood Count 4.8 X10*3/uL (4.8-10.8)
[2022-09-15 06:39] LABS: Anion Gap 11 (12-20); Blood Urea Nitrogen 7 mg/dL (9-16); Calcium 8.1 mg/dL (8.4-10.2); Carbon Dioxide 25 mmol/L (22-29); Chloride 107 mmol/L (96-108); Creatinine Clr Calc Pharmacy 127.7; Estimated Glomerular Filt Rate > 60; Glucose Random 82 mg/dL (60-115); Potassium 3.4 mmol/L (3.3-5.1); Sodium 140 mmol/L (135-145)
[2022-09-15] MEDS: PHENobarbitaL 15 MG TABLET 45 MG PO ×2 (07:21→20:10)
[2022-09-15] MEDS: vancomycin HCL 1,250 MG in 0.9 % Sodium Chloride 250 ML 166.67 MG IV ×2 (07:25→20:04)
--- NOTE | 2022-09-15 07:29 | PC.NURSE ---
sleeping and slow to awaken, alert, skin wpd, feel like shit but wont specify, sr on monitor, drinking clear liquid breakfast
[2022-09-15] MEDS: 0.9 % Sodium Chloride Flush 3 ML SYRINGE IVFLUSH ×2 (07:39→20:12)
--- NOTE | 2022-09-15 11:58 | P.PNIM_ITS ---
Subjective Subjective Date of Service: 09/15/22 Interval History: lethargic Physical Exam Vital Signs: Vital Signs: Last Vital Signs Temp 99.2 F 09/15/22 08:56 Pulse 64 09/15/22 08:56 Resp 20 09/15/22 08:56 BP 158/89 H 09/15/22 08:56 Pulse Ox 96 09/15/22 08:56 O2 Del Method Room Air 09/15/22 08:56 BMI result Body Mass Index 25.1 lethargic, ill appearing Objective Data Active Medications Acetaminophen (Acetaminophen 325 Mg Tablet) 650 mg PO Q6H PRN PRN Reason: Pain, Mild (Pain Scale 1-3) Enoxaparin Sodium (Enoxaparin Sodium 40 Mg/0.4 Ml Syringe) 40 mg SUBCUT Q24H [facility] Last Admin: 09/14/22 16:06 Dose: 40 mg Documented By: CARMEN Ceftriaxone Sodium 1 gm/ (Sodium Chloride) 50 mls @ 100 mls/hr IV Q24H [facility] Vancomycin HCl 1,250 mg/ (Sodium Chloride) 250 mls @ 166.667 mls/hr IV Q12H [facility] Last Infusion: 09/15/22 09:25 Dose: 0 mls/hr Documented By: MICHAELLE Sodium Chloride (Ns) 1,000 mls @ 100 mls/hr IVCONT .Q10H [facility] Last Admin: 09/15/22 03:43 Dose: 100 mls/hr Documented By: CHAR Ketorolac Tromethamine (Ketorolac Tromethamine 30 Mg/Ml Vial) 15 mg IVPUSH Q6H PRN PRN Reason: Pain, Mild (Pain Scale 1-3) Stop: 09/19/22 15:47 Lorazepam (Lorazepam 2 Mg/Ml Vial) 2 mg IVPUSH ONCE PRN PRN Reason: Seizures Ondansetron HCl (Ondansetron Hcl 4 Mg/2 Ml Vial) 4 mg IVPUSH Q8H PRN PRN Reason: Nausea and Vomiting Pharmacy Consult (Consult Rx Etoh Phenob Po Only) 1 each MISCELLANE ONCE PRN; Protocol PRN Reason: Consult order Pharmacy Consult (Consult Rx Perform Med Rec) 1 each MISCELLANE ONCE PRN PRN Reason: Consult order Pharmacy Consult (Consult Rx Vancomycin Dosing) 1 each MISCELLANE DAILY PRN PRN Reason: Consult order Phenobarbital (Phenobarbital 15 Mg Tablet) 45 mg PO BID [facility] Stop: 09/16/22 21:01 Last Admin: 09/15/22 07:21 Dose: 45 mg Documented By: VAISHALI Phenobarbital (Phenobarbital 30 Mg Tablet) 30 mg PO BID [facility] Stop: 09/18/22 21:01 Phenobarbital (Phenobarbital 15 Mg Tablet) 15 mg PO DAILY [facility] Stop: 09/20/22 09:01 Sodium Chloride (0.9 % Sodium Chloride Flush 3 Ml Syringe) 3 ml IVFLUSH QSHIFT [facility] Last Admin: 09/15/22 07:39 Dose: 3 ml Documented By: VAISHALI Labs 09/15/22 06:06 09/15/22 06:06 Labs: Laboratory Results - last 24 hr 09/14/22 09/14/22 09/14/22 11:51 11:51 11:51 MCV 87.1 MCH 29.0 MCHC 33.3 RDW 13.2 Plt Count 240 MPV 9.3 L Immature Gran % (Auto) 0.3 Neut % (Auto) 76.2 H Lymph % (Auto) 13.2 L [place] % (Auto) 9.8 Eos % (Auto) 0.0 Baso % (Auto) 0.5 Lymph # (Auto) 0.9 L [place] # (Auto) 0.6 Eos # (Auto) 0.0 Baso # (Auto) 0.0 Abs Immat Gran (auto) 0.02 Absolute Neuts (auto) 4.9 Absolute Nucleated RBC 0.000 Nucleated RBC % (auto) 0.0 PT 12.6 INR 1.1 Anion Gap 15 Estim Creat Clear Calc 124.3 Estimated GFR > 60 Random Glucose 96 Lactic Acid Lactic Acid F/U @ 2Hr Calcium 8.6 Magnesium 1.9 Total Bilirubin 0.6 Direct Bilirubin 0.3 AST 43 H ALT 25 Alkaline Phosphatase 55 Total Creatine Kinase 678 H Troponin I High Sens Total Protein 7.0 Albumin 3.5 Lipase 7 L Procalcitonin 0.05 Urine Color Urine Appearance Urine pH Ur Specific [place] Urine Protein Urine Glucose (UA) Urine Ketones Urine Blood Urine Nitrite Ur Leukocyte Esterase Urine RBC Urine WBC Ur Squamous Epith Cells Urine Bacteria Hyaline Casts Urine Opiates Screen Urine Fentanyl Screen Ur Barbiturates Screen Ur Phencyclidine Scrn Ur Amphetamines Screen U Benzodiazepines Scrn Urine Cocaine Screen U Marijuana (THC) Screen Ethyl Alcohol 14 COVID-19 ([facility]) COVID-19 Clin Com Influenza Type A ([facility]) Influenza Type B ([facility]RENCE) Influenza A & B Note 09/14/22 09/14/22 09/14/22 11:51 11:51 11:52 MCV MCH MCHC RDW Plt Count MPV Immature Gran % (Auto) Neut % (Auto) Lymph % (Auto) [place] % (Auto) Eos % (Auto) Baso % (Auto) Lymph # (Auto) [place] # (Auto) Eos # (Auto) Baso # (Auto) Abs Immat Gran (auto) Absolute Neuts (auto) Absolute Nucleated RBC Nucleated RBC % (auto) PT INR Anion Gap Estim Creat Clear Calc Estimated GFR Random Glucose Lactic Acid 6.1 H* Lactic Acid F/U @ 2Hr Calcium Magnesium Total Bilirubin Direct Bilirubin AST ALT Alkaline Phosphatase Total Creatine Kinase Troponin I High Sens 8.6 Total Protein Albumin Lipase Procalcitonin Urine Color Urine Appearance Urine pH Ur Specific [place] Urine Protein Urine Glucose (UA) Urine Ketones Urine Blood Urine Nitrite Ur Leukocyte Esterase Urine RBC Urine WBC Ur Squamous Epith Cells Urine Bacteria Hyaline Casts Urine Opiates Screen Urine Fentanyl Screen Ur Barbiturates Screen Ur Phencyclidine Scrn Ur Amphetamines Screen U Benzodiazepines Scrn Urine Cocaine Screen U Marijuana (THC) Screen Ethyl Alcohol COVID-19 ([facility]) Negative COVID-19 Clin Com See Note Influenza Type A (TERRENCE) Influenza Type B (TERRENCE) Influenza A & B Note 09/14/22 09/14/22 09/14/22 11:52 13:23 13:51 MCV MCH MCHC RDW Plt Count MPV Immature Gran % (Auto) Neut % (Auto) Lymph % (Auto) [place] % (Auto) Eos % (Auto) Baso % (Auto) Lymph # (Auto) [place] # (Auto) Eos # (Auto) Baso # (Auto) Abs Immat Gran (auto) Absolute Neuts (auto) Absolute Nucleated RBC Nucleated RBC % (auto) PT INR Anion Gap Estim Creat Clear Calc Estimated GFR Random Glucose Lactic Acid Lactic Acid F/U @ 2Hr 0.7 Calcium Magnesium Total Bilirubin Direct Bilirubin AST ALT Alkaline Phosphatase Total Creatine Kinase Troponin I High Sens Total Protein Albumin Lipase Procalcitonin Urine Color Yellow Urine Appearance Hazy Urine pH 6.5 Ur Specific [place] 1.015 Urine Protein Trace Urine Glucose (UA) Negative Urine Ketones Negative Urine Blood Trace H Urine Nitrite Positive H Ur Leukocyte Esterase Small (1+) H Urine RBC 0-2 Urine WBC 21-50 H Ur Squamous Epith Cells 0-2 Urine Bacteria 1+ Hyaline Casts 0-2 Urine Opiates Screen Urine Fentanyl Screen Ur Barbiturates Screen Ur Phencyclidine Scrn Ur Amphetamines Screen U Benzodiazepines Scrn Urine Cocaine Screen U Marijuana (THC) Screen Ethyl Alcohol COVID-19 ([facility]IO) COVID-19 Clin Com Influenza Type A ([facility]) Negative Influenza Type B (TERRENCE) Negative Influenza A & B Note See Note 09/14/22 09/15/22 09/15/22 17:04 06:06 06:06 MCV 88.3 MCH 29.4 MCHC 33.3 RDW 13.4 Plt Count 228 MPV 9.9 Immature Gran % (Auto) Neut % (Auto) Lymph % (Auto) [place] % (Auto) Eos % (Auto) Baso % (Auto) Lymph # (Auto) [place] # (Auto) Eos # (Auto) Baso # (Auto) Abs Immat Gran (auto) Absolute Neuts (auto) Absolute Nucleated RBC 0.000 Nucleated RBC % (auto) 0.0 PT INR Anion Gap 11 L Estim Creat Clear Calc 127.7 Estimated GFR > 60 Random Glucose 82 Lactic Acid Lactic Acid F/U @ 2Hr Calcium 8.1 L Magnesium Total Bilirubin Direct Bilirubin AST ALT Alkaline Phosphatase Total Creatine Kinase 279 H Troponin I High Sens Total Protein Albumin Lipase Procalcitonin Urine Color Urine Appearance Urine pH Ur Specific [place] Urine Protein Urine Glucose (UA) Urine Ketones Urine Blood Urine Nitrite Ur Leukocyte Esterase Urine RBC Urine WBC Ur Squamous Epith Cells Urine Bacteria Hyaline Casts Urine Opiates Screen Not Detected Urine Fentanyl Screen POSITIVE H Ur Barbiturates Screen POSITIVE H Ur Phencyclidine Scrn Not Detected Ur Amphetamines Screen Not Detected U Benzodiazepines Scrn Not Detected Urine Cocaine Screen POSITIVE H U Marijuana (THC) Screen Not Detected Ethyl Alcohol COVID-19 ([facility]IO) COVID-19 Clin Com Influenza Type A (TERRENCE) Influenza Type B (TERRENCE) Influenza A & B Note Assessment and Plan (1) Sepsis: Status: Acute Plan 47M PMH IVDA, etoh dependence, presneted with fever, had seizure in ED Sepsis inpatient to uses IV drugs Concern for bacteremia +/-urinary tract infection Continue vancomycin and ceftriaxone Follow-up cultures Toxic metabolic encephalopathy Multifactorial Monitor Alcohol dependence with withdrawal and seizure Phenobarbital See lactic acidosis due to seizure not sepsis DVT prophylaxis with Lovenox Full code reason for continued hospitalization:awaiting cultures in sepsis Time Spent With Patient Time: Total time managing care of this patient today ____ minutes. Quality Stroke Does the patient have a stroke diagnosis?: No VTE Prior VTE?: No VTE Risk Level:: Medical - moderate - high VTE Device Contraindication: Treatment Not Indicated VTE Drug Contraindication: N/A - Med Ordered
[2022-09-15] MEDS: cefTRIAXone sodium 1 GM in 0.9 % Sodium Chloride 50 ML IV (12:08)
[2022-09-15] MEDS: ondansetron HCL 4 MG/2 ML VIAL IVPUSH (13:23)
--- NOTE | 2022-09-15 13:48 | MHC.CM.PN ---
CM attempted to speak with Patient at bedside. Patient briefly awoke to his name and then could not be kept awake for additional questions. [facility] Financial is already involved regarding self-pay status. CM will re-approach Patient at a later time.
[2022-09-15] MEDS: Enoxaparin Sodium 40 MG/0.4 ML SYRINGE SUBCUT (15:52)
[2022-09-15 18:15] LABS: Vancomycin Random 7.4 mcg/mL (15-20)
[2022-09-15] MEDS: hydrALAZINE HCl 20 MG/ML VIAL 10 MG IVPUSH (21:58)
[2022-09-16] MEDS: 0.9 % Sodium Chloride 1,000 ML 100 ML IVCONT ×2 (00:18→10:57)
[2022-09-16] MEDS: vancomycin HCL 1,250 MG in 0.9 % Sodium Chloride 250 ML 166.67 MG IV (03:16)
[2022-09-16 03:47] VITALS: BP 192/98; PULSE 51; RESP 18; TEMP 37.6; O2SAT 98
--- NOTE | 2022-09-16 05:57 | PC.NURSE ---
Pt had SBP's in 190s to low 200s overnight. Paged MD, gave 1 time dose of hydralazine. Paged to advise BP still elevated, aware and advised to monitor and no med at this time. Pt resting comfortably in bed.
[2022-09-16 06:30] LABS: Hemoglobin 15.5 g/dl (14.0-18.0); Mean Corpuscular HGB Conc 33.7 g/dl (31.0-36.0); Platelet Count 279 X10*3/uL (160-400); Red Blood Count 5.35 X10*6/uL (4.60-5.80); Red Cell Distribution Width 13.3 % (11.0-16.0); White Blood Count 6.5 X10*3/uL (4.8-10.8)
[2022-09-16 06:39] LABS: Anion Gap 12 (12-20); Blood Urea Nitrogen 5 mg/dL (9-16); Calcium 8.8 mg/dL (8.4-10.2); Carbon Dioxide 26 mmol/L (22-29); Chloride 101 mmol/L (96-108); Creatinine Clr Calc Pharmacy 152.9; Estimated Glomerular Filt Rate > 60; Glucose Fasting 102 mg/dL (60-99); Potassium 3.3 mmol/L (3.3-5.1); Sodium 136 mmol/L (135-145)
[2022-09-16 06:54] LABS: Glucose, Whole Blood 106 mg/dL (60-115)
[2022-09-16 07:46] VITALS: BP 192/108; PULSE 62; RESP 18; TEMP 37.1; O2SAT 97
[2022-09-16] MEDS: PHENobarbitaL 15 MG TABLET 45 MG PO ×2 (09:44→20:12)
[2022-09-16] MEDS: amLODIPine Besylate 5 MG TABLET PO (09:44)
--- NOTE | 2022-09-16 11:17 | HO.PM.IMPN ---
Subjective Subjective Date of Service: 09/16/22 Interval History: weakness Physical Exam Vital Signs: Vital Signs: Last Vital Signs Temp 98.8 F 09/16/22 07:46 Pulse 62 09/16/22 07:46 Resp 18 09/16/22 07:46 BP 192/108 H 09/16/22 07:46 Pulse Ox 97 09/16/22 07:46 O2 Del Method Room Air 09/16/22 07:46 BMI result Body Mass Index 25.1 lethargic, ill appearing Objective Data Active Medications Acetaminophen (Acetaminophen 325 Mg Tablet) 650 mg PO Q6H PRN PRN Reason: Pain, Mild (Pain Scale 1-3) Amlodipine Besylate (Amlodipine Besylate 5 Mg Tablet) 5 mg PO DAILY [facility]; Protocol Last Admin: 09/16/22 09:44 Dose: 5 mg Documented By: JACOB Enoxaparin Sodium (Enoxaparin Sodium 40 Mg/0.4 Ml Syringe) 40 mg SUBCUT Q24H [facility] Last Admin: 09/15/22 15:52 Dose: 40 mg Documented By: JACOB Ceftriaxone Sodium 1 gm/ (Sodium Chloride) 50 mls @ 100 mls/hr IV Q24H [facility] Last Infusion: 09/15/22 12:41 Dose: 0 mls/hr Documented By: JACOB Sodium Chloride (Ns) 1,000 mls @ 100 mls/hr IVCONT .Q10H [facility] Last Admin: 09/16/22 10:57 Dose: 100 mls/hr Documented By: JACOB Ketorolac Tromethamine (Ketorolac Tromethamine 30 Mg/Ml Vial) 15 mg IVPUSH Q6H PRN PRN Reason: Pain, Mild (Pain Scale 1-3) Stop: 09/19/22 15:47 Lorazepam (Lorazepam 2 Mg/Ml Vial) 2 mg IVPUSH ONCE PRN PRN Reason: Seizures Ondansetron HCl (Ondansetron Hcl 4 Mg/2 Ml Vial) 4 mg IVPUSH Q8H PRN PRN Reason: Nausea and Vomiting Last Admin: 09/15/22 13:23 Dose: 4 mg Documented By: JACOB Pharmacy Consult (Consult Rx Etoh Phenob Po Only) 1 each MISCELLANE ONCE PRN; Protocol PRN Reason: Consult order Pharmacy Consult (Consult Rx Perform Med Rec) 1 each MISCELLANE ONCE PRN PRN Reason: Consult order Phenobarbital (Phenobarbital 15 Mg Tablet) 45 mg PO BID [facility] Stop: 09/16/22 21:01 Last Admin: 09/16/22 09:44 Dose: 45 mg Documented By: JACOB Phenobarbital (Phenobarbital 30 Mg Tablet) 30 mg PO BID [facility] Stop: 09/18/22 21:01 Phenobarbital (Phenobarbital 15 Mg Tablet) 15 mg PO DAILY [facility] Stop: 09/20/22 09:01 Sodium Chloride (0.9 % Sodium Chloride Flush 3 Ml Syringe) 3 ml IVFLUSH QSHIFT [facility] Last Admin: 09/16/22 09:41 Dose: Not Given Documented By: JACOB Non-Admin Reason: IV Running Labs 09/16/22 06:04 09/16/22 06:04 Labs: Laboratory Results - last 24 hr 09/15/22 09/16/22 09/16/22 17:42 06:04 06:04 MCV 86.0 MCH 29.0 MCHC 33.7 RDW 13.3 Plt Count 279 MPV 10.0 Absolute Nucleated RBC 0.000 Nucleated RBC % (auto) 0.0 Anion Gap 12 Estim Creat Clear Calc 152.9 Estimated GFR > 60 POC Glucose Fasting Glucose 102 H Calcium 8.8 D Random Vancomycin 7.4 L 09/16/22 06:50 MCV MCH MCHC RDW Plt Count MPV Absolute Nucleated RBC Nucleated RBC % (auto) Anion Gap Estim Creat Clear Calc Estimated GFR POC Glucose 106 Fasting Glucose Calcium Random Vancomycin Microbiology Microbiology Results: Microbiology 09/14/22 11:51 Blood Culture - Preliminary Blood - Venous No growth after 24 hours. 09/14/22 11:51 Blood Culture - Preliminary Blood - Venous No growth after 24 hours. 09/14/22 14:25 Urine Culture - Final Urine clean catch - Urine wheeler top Assessment and Plan (1) Sepsis: Status: Acute Plan 47M PMH IVDA, etoh dependence, presneted with fever, had seizure in ED Sepsis inpatient to uses IV drugs urinary tract infection Continue ceftriaxone Follow-up cultures, blood so far negative will dc vanco Toxic metabolic encephalopathy Multifactorial Monitor Alcohol dependence with withdrawal and seizure Phenobarbital See lactic acidosis due to seizure not sepsis DVT prophylaxis with Lovenox Full code reason for continued hospitalization: still encephalopathic Time Spent With Patient Time: Total time managing care of this patient today ____ minutes. Quality Stroke Does the patient have a stroke diagnosis?: No VTE Prior VTE?: No VTE Risk Level:: Medical - moderate - high VTE Device Contraindication: Treatment Not Indicated VTE Drug Contraindication: N/A - Med Ordered
[2022-09-16 11:20] VITALS: BP 182/96; PULSE 62; RESP 20; TEMP 36.7; O2SAT 95
[2022-09-16 11:31] LABS: Glucose, Whole Blood 125 mg/dL (60-115)
[2022-09-16] MEDS: cefTRIAXone sodium 1 GM in 0.9 % Sodium Chloride 50 ML IV (12:27)
--- NOTE | 2022-09-16 14:12 | MHC.CM.PN ---
THIS CM ATTEMPTED TO MEET WITH PT X 2 BUT DECLINED TO ANSWER ASSESSMENT QUESTIONS. PT WITH EYES CLOSED, ROLLED TO SIDE IN BED. CM WILL CONTINUE TO ATTEMPT TO DO ASSESSMENT. PT HAS BEEN FOUND TO HAVE ANOTHER IDENTITY, SECURITY NOTIFIED AND WILL BRING PT ID'S TO PT REGISTRATION WITH CORRECT NAME. FINANCIAL SERVICES MADE AWARE WELL.
[2022-09-16 15:58] VITALS: BP 161/90; PULSE 98; RESP 18; TEMP 37.2; O2SAT 98
--- NOTE | 2022-09-16 16:39 | PHA.MEDREC ---
patient stated not taking any medications at home. This matches with no claim history for last few months, he was discharged in late July on several medications that he may still need, left these on his list with last taken unknown, will notify provider as well. Pharmacy Consult ? Medication Reconciliation Pharmacy has completed the medication reconciliation.
[2022-09-16] MEDS: Enoxaparin Sodium 40 MG/0.4 ML SYRINGE SUBCUT (16:51)
[2022-09-16 19:49] VITALS: BP 159/90; PULSE 98; RESP 18; TEMP 36.7; O2SAT 98
[2022-09-16 23:03] VITALS: BP 162/98; PULSE 58; RESP 15; TEMP 36.8; O2SAT 97
[2022-09-17 03:04] VITALS: BP 162/96; PULSE 56; RESP 20; TEMP 36.6; O2SAT 95
[2022-09-17 06:02] LABS: Hematocrit 47.7 % (42.0-52.0); Hemoglobin 16.3 g/dl (14.0-18.0); Mean Corpuscular HGB Conc 34.2 g/dl (31.0-36.0); Mean Corpuscular Hemoglobin 29.4 pg (27.0-33.0); Mean Corpuscular Volume 86.1 fL (80.0-98.0); Platelet Count 306 X10*3/uL (160-400); Red Blood Count 5.54 X10*6/uL (4.60-5.80); Red Cell Distribution Width 13.2 % (11.0-16.0); White Blood Count 4.8 X10*3/uL (4.8-10.8)
[2022-09-17 06:15] LABS: Anion Gap 11 (12-20); Blood Urea Nitrogen 11 mg/dL (9-16); Calcium 8.9 mg/dL (8.4-10.2); Carbon Dioxide 28 mmol/L (22-29); Chloride 99 mmol/L (96-108); Creatinine Clr Calc Pharmacy 141.3; Estimated Glomerular Filt Rate > 60; Glucose Fasting 94 mg/dL (60-99); Potassium 3.4 mmol/L (3.3-5.1); Sodium 135 mmol/L (135-145)
[2022-09-17 07:04] VITALS: BP 198/116; PULSE 57; RESP 20; TEMP 36.6; O2SAT 98
[2022-09-17 08:11] LABS: HBS Num1 > 1000.00 mIU/mL (0-7.99); HBc Num1 3.34 S/CO (0.00-0.79); HBsAGNum1 0.42 S/CO (0.00-0.99); HIV AB/AG Nonreactive (Nonreactive); HIV Num 1 0.07 S/CO (0.00-0.99); Hepatitis B Surface Antigen Negative (Negative); ~Hepatitis B Surface Antibody REACTIVE (Nonreactive); ~Hepatitis C Antibody Reactive (Nonreactive)
--- NOTE | 2022-09-17 09:02 | HO.PM.IMPN ---
Subjective Subjective Date of Service: 09/17/22 Interval History: weakness Physical Exam Vital Signs: Vital Signs: Last Vital Signs Temp 97.9 F 09/17/22 07:04 Pulse 57 09/17/22 07:04 Resp 20 09/17/22 07:04 BP 198/116 H 09/17/22 07:04 Pulse Ox 98 09/17/22 07:04 O2 Del Method Room Air 09/17/22 07:04 BMI result Body Mass Index 25.1 lethargic, ill appearing Objective Data Active Medications Acetaminophen (Acetaminophen 325 Mg Tablet) 650 mg PO Q6H PRN PRN Reason: Pain, Mild (Pain Scale 1-3) Amlodipine Besylate (Amlodipine Besylate 5 Mg Tablet) 5 mg PO DAILY [facility]; Protocol Last Admin: 09/16/22 09:44 Dose: 5 mg Documented By: JACOB Aripiprazole (Aripiprazole 15 Mg Tablet) 15 mg PO DAILY [facility] Buprenorphine/Naloxone (Buprenorphine/Naloxone 8/2 Mg Film) 1 film SUBLINGUAL TID [facility] Bupropion HCl (Bupropion Hcl Xl 150 Mg Tab.Er.24h) 450 mg PO DAILY [facility] Buspirone HCl (Buspirone Hcl 10 Mg Tablet) 10 mg PO TID PRN PRN Reason: anxiety Clonidine HCl (Clonidine Hcl 0.1 Mg Tablet) 0.1 mg PO Q4H PRN; Protocol PRN Reason: anxiety Enoxaparin Sodium (Enoxaparin Sodium 40 Mg/0.4 Ml Syringe) 40 mg SUBCUT Q24H [facility] Last Admin: 09/16/22 16:51 Dose: 40 mg Documented By: CHINA Finasteride (Finasteride 5 Mg Tablet) 5 mg PO DAILY [facility] Gabapentin (Gabapentin 400 Mg Capsule) 800 mg PO QID [facility] Hydroxyzine HCl (Hydroxyzine Hcl 50 Mg Tablet) 50 mg PO Q8H PRN PRN Reason: Anxiety Ceftriaxone Sodium 1 gm/ (Sodium Chloride) 50 mls @ 100 mls/hr IV Q24H [facility] Last Infusion: 09/16/22 13:08 Dose: 0 mls/hr Documented By: JACOB Ketorolac Tromethamine (Ketorolac Tromethamine 30 Mg/Ml Vial) 15 mg IVPUSH Q6H PRN PRN Reason: Pain, Mild (Pain Scale 1-3) Stop: 09/19/22 15:47 Lisinopril (Lisinopril 20 Mg Tablet) 20 mg PO DAILY [facility]; Protocol Lorazepam (Lorazepam 2 Mg/Ml Vial) 2 mg IVPUSH ONCE PRN PRN Reason: Seizures Omeprazole (Omeprazole 20 Mg Capsule.Dr) 20 mg PO DAILY [facility] Ondansetron HCl (Ondansetron Hcl 4 Mg/2 Ml Vial) 4 mg IVPUSH Q8H PRN PRN Reason: Nausea and Vomiting Last Admin: 09/15/22 13:23 Dose: 4 mg Documented By: JACOB Pharmacy Consult (Consult Rx Etoh Phenob Po Only) 1 each MISCELLANE ONCE PRN; Protocol PRN Reason: Consult order Pharmacy Consult (Consult Rx Perform Med Rec) 1 each MISCELLANE ONCE PRN PRN Reason: Consult order Pharmacy Consult (Consult Rx Perform Med Rec) 1 each MISCELLANE ONCE PRN PRN Reason: Consult order Phenobarbital (Phenobarbital 30 Mg Tablet) 30 mg PO BID [facility] Stop: 09/18/22 21:01 Phenobarbital (Phenobarbital 15 Mg Tablet) 15 mg PO DAILY [facility] Stop: 09/20/22 09:01 Sodium Chloride (0.9 % Sodium Chloride Flush 3 Ml Syringe) 3 ml IVFLUSH QSHIFT [facility] Last Admin: 09/17/22 00:40 Dose: Not Given Documented By: JESSICA Non-Admin Reason: Patient Asleep Tamsulosin HCl (Tamsulosin Hcl 0.4 Mg Capsule) 0.4 mg PO BEDTIME [facility] Trazodone HCl (Trazodone Hcl 100 Mg Tablet) 200 mg PO BEDTIME [facility] Labs 09/17/22 05:51 09/17/22 05:51 Labs: Laboratory Results - last 24 hr 09/16/22 09/16/22 09/17/22 06:04 11:19 05:51 MCV 86.1 MCH 29.4 MCHC 34.2 RDW 13.2 Plt Count 306 MPV 10.0 Absolute Nucleated RBC 0.000 Nucleated RBC % (auto) 0.0 Anion Gap Estim Creat Clear Calc Estimated GFR POC Glucose 125 H Fasting Glucose Calcium Hep Bs Antigen Negative Hep Bs Antibody REACTIVE Hepatitis C Ab (EIA) Reactive H HIV 1&2 Ab/P24 Ag 4thGn Nonreactive 09/17/22 05:51 MCV MCH MCHC RDW Plt Count MPV Absolute Nucleated RBC Nucleated RBC % (auto) Anion Gap 11 L Estim Creat Clear Calc 141.3 Estimated GFR > 60 POC Glucose Fasting Glucose 94 Calcium 8.9 Hep Bs Antigen Hep Bs Antibody Hepatitis C Ab (EIA) HIV 1&2 Ab/P24 Ag 4thGn Microbiology Microbiology Results: Microbiology 09/14/22 11:51 Blood Culture - Preliminary Blood - Venous No growth after 48 hours. 09/14/22 11:51 Blood Culture - Preliminary Blood - Venous No growth after 48 hours. Assessment and Plan (1) Sepsis: Plan 47M PMH IVDA, etoh dependence, presneted with fever, had seizure in ED Sepsis in patient to uses IV drugs urinary tract infection Continue ceftriaxone Follow-up cultures, blood so far negative Toxic metabolic encephalopathy Multifactorial Monitor Alcohol dependence with withdrawal and seizure Phenobarbital See lactic acidosis due to seizure not sepsis DVT prophylaxis with Lovenox Full code reason for continued hospitalization: still encephalopathic Time Spent With Patient Time: Total time managing care of this patient today ____ minutes. Quality Stroke Does the patient have a stroke diagnosis?: No VTE Prior VTE?: No VTE Risk Level:: Medical - moderate - high VTE Device Contraindication: Treatment Not Indicated VTE Drug Contraindication: N/A - Med Ordered
[2022-09-17] MEDS: buPROPion HCl XL 150 MG TAB.ER.24H 450 MG PO (09:33)
[2022-09-17] MEDS: Omeprazole 20 MG CAPSULE.DR PO (09:33)
[2022-09-17] MEDS: Buprenorphine/Naloxone 8/2 mg FILM 1 FILM SUBLINGUAL ×3 (09:33→20:47)
[2022-09-17] MEDS: PHENobarbitaL 30 MG TABLET PO ×2 (09:33→20:47)
[2022-09-17] MEDS: ARIPiprazole 15 MG TABLET PO (09:33)
[2022-09-17] MEDS: Finasteride 5 MG TABLET PO (09:33)
[2022-09-17] MEDS: Gabapentin 400 MG CAPSULE 800 MG PO ×4 (09:33→20:47)
[2022-09-17] MEDS: 0.9 % Sodium Chloride Flush 3 ML SYRINGE IVFLUSH ×2 (09:34→20:47)
[2022-09-17] MEDS: amLODIPine Besylate 5 MG TABLET PO (09:34)
[2022-09-17] MEDS: lisinopriL 20 MG TABLET PO (09:34)
[2022-09-17 09:57] LABS: HBc Num2 3.39 S/CO; HBc Num3 3.29 S/CO; Hepatitis B Core Antibody Reactive (Nonreactive)
--- NOTE | 2022-09-17 10:28 | MHC.CM.PN ---
Per ROUNDS discussion, Patient is still Encephalopathic and not yet medically cleared for dc. DC plan is TBD. Patient may benefit from a Recovery Team consult and PT eval. CM will follow.
[2022-09-17 11:26] VITALS: BP 148/102; PULSE 71; RESP 20; TEMP 36.9; O2SAT 95
[2022-09-17 11:55] LABS: Glucose, Whole Blood 113 mg/dL (60-115)
[2022-09-17] MEDS: cefTRIAXone sodium 1 GM in 0.9 % Sodium Chloride 50 ML IV (12:29)
[2022-09-17 15:04] VITALS: BP 134/88; PULSE 66; RESP 20; TEMP 36.7; O2SAT 94
[2022-09-17] MEDS: Enoxaparin Sodium 40 MG/0.4 ML SYRINGE SUBCUT (16:00)
[2022-09-17] MEDS: Acetaminophen 325 MG TABLET 650 MG PO (16:00)
[2022-09-17 16:08] LABS: Glucose, Whole Blood 99 mg/dL (60-115)
[2022-09-17 19:06] VITALS: BP 126/77; PULSE 66; RESP 21; TEMP 36.8; O2SAT 95
[2022-09-17 20:29] LABS: Glucose, Whole Blood 121 mg/dL (60-115)
[2022-09-17] MEDS: traZODone HCL 100 MG TABLET 200 MG PO (20:47)
[2022-09-17] MEDS: Tamsulosin HCL 0.4 MG CAPSULE PO (20:53)
[2022-09-18] VITALS: BP 122/80; PULSE 64; RESP 20; TEMP 36.5; O2SAT 96
[2022-09-18 03:27] VITALS: BP 120/75; PULSE 63; RESP 20; TEMP 36.4; O2SAT 96
[2022-09-18 07:13] VITALS: BP 131/82; PULSE 63; RESP 20; TEMP 36.8; O2SAT 95
[2022-09-18 07:28] LABS: Glucose, Whole Blood 98 mg/dL (60-115)
[2022-09-18] MEDS: Acetaminophen 325 MG TABLET 650 MG PO (08:26)
[2022-09-18] MEDS: Omeprazole 20 MG CAPSULE.DR PO (08:26)
[2022-09-18] MEDS: PHENobarbitaL 30 MG TABLET PO (08:26)
[2022-09-18] MEDS: buPROPion HCl XL 150 MG TAB.ER.24H 450 MG PO (08:26)
[2022-09-18] MEDS: ARIPiprazole 15 MG TABLET PO (08:26)
[2022-09-18] MEDS: Gabapentin 400 MG CAPSULE 800 MG PO (08:27)
[2022-09-18] MEDS: Finasteride 5 MG TABLET PO (08:27)
[2022-09-18] MEDS: amLODIPine Besylate 5 MG TABLET PO (08:27)
[2022-09-18] MEDS: lisinopriL 20 MG TABLET PO (08:27)
[2022-09-18] MEDS: Buprenorphine/Naloxone 8/2 mg FILM 1 FILM SUBLINGUAL (08:29)
[2022-09-18] MEDS: 0.9 % Sodium Chloride Flush 3 ML SYRINGE IVFLUSH (08:33)
--- NOTE | 2022-09-18 09:05 | PM.DS ---
DS: Providers Provider Date of Service: 09/18/22 Date of admission: 09/14/22 15:49 Primary care physician: Unknown Physician DS: Diagnosis Discharge Diagnosis (1) High cholesterol: DS: Summary Hospital Course Hospital Course: from initial hpi: 47 years old male with PMH of IVDU, alcoholism who was found down and brought to the hospital with fever, altered mentation and developed seizure in ED. Patient is very poor historian, was in post-ictal status and had Ativan given at time of interview. Information from EMR and ED physician. reported significant history of alcohol intake. found with low alcohol level found to have abrasion in head, reported a fall when he was found down. In ED, CT scan was negative for acute findings. Neck CT with no injuries reported. UA showed possible infection. admitted for further eval. hospital course: patient was admitted initially for suspicioun of sepsis, was covered with rocepihn, cultures were negative, likely fevers were from pneumonitis vs drug fever. patient also had acute toxic metabolic encephalopathy, due to alcohol withdrawal and drug use, this resolved. Probable dependence with withdrawal and seizure he was treated with phenobarbital. Patient had acute lactic acidosis due to seizure not sepsis. Patient is now back to baseline will be discharged home. Time Spent with Patient Time attestation: Total time managing care of this patient today ____ minutes. Discharge coordination time: Greater than 30 minutes Quality: Safe Use of Opioids Does Pt have an Active Cancer Diagnosis on the Problem List?: No Quality: Stroke Does the patient have a stroke diagnosis?: No Physical Exam Vital Signs: Vital Signs: Last Vital Signs Temp 98.2 F 09/18/22 07:13 Pulse 63 09/18/22 07:13 Resp 20 09/18/22 07:13 BP 131/82 09/18/22 07:13 Pulse Ox 95 09/18/22 07:13 O2 Del Method Room Air 09/18/22 07:13 BMI result Body Mass Index 25.1 more alert, back to baseline DS: Data Data Completed and Pending Labs on day of discharge: Laboratory Results - last 24 hr 09/16/22 09/17/22 09/17/22 06:04 11:28 16:04 POC Glucose 113 99 Hep B Core Total Ab Reactive Hep B Core IgM Ab Cancelled 09/17/22 09/18/22 19:32 07:16 POC Glucose 121 H 98 Hep B Core Total Ab Hep B Core IgM Ab Preliminary micro results at discharge 09/14/22 11:51 Blood Culture - Preliminary Blood - Venous No growth after 48 hours. 09/14/22 11:51 Blood Culture - Preliminary Blood - Venous No growth after 48 hours. Discharge Plan Discharge Anticipated Discharge Date/Time: 09/18/22 08:56 Patient Disposition: Home, Self-Care Discharge Diagnosis: etoh withdrawal Referrals: Physician,Unknown J [Primary Care Provider] - 1 Week Discharge Medications: Continued hydroxyzine pamoate 50 mg capsule 50 mg PO Q8H PRN (Reason: Anxiety) clonidine HCl 0.1 mg Tablet 0.1 mg PO Q4H PRN (Reason: anxiety) 30 Days Qty: 90 0RF Protocol: Hold for SBP< HOLD for SBP < : 90 gabapentin 400 mg Capsule 800 mg PO QID 30 Days Qty: 240 0RF trazodone 100 mg Tablet 200 mg PO BEDTIME 30 Days Qty: 60 0RF acetaminophen 325 mg Tablet 650 mg PO Q6H PRN (Reason: Headache/Pain Mild Scale (1-3)) Qty: 0 0RF buprenorphine-naloxone [Suboxone] 8-2 mg Film 1 film sublingual TID 14 Days Qty: 28 0RF bupropion HCl 150 mg Tablet Extended Release 24 Hr 450 mg PO DAILY 30 Days Qty: 90 0RF buspirone 10 mg Tablet 10 mg PO TID PRN (Reason: anxiety) 30 Days Qty: 30 0RF metformin 500 mg Tablet 500 mg PO BIDWM 30 Days Qty: 60 0RF lisinopril 20 mg tablet 20 mg PO DAILY 30 Days Qty: 30 0RF amlodipine 2.5 mg tablet 2.5 mg PO DAILY 30 Days Qty: 30 0RF tamsulosin 0.4 mg Capsule 0.4 mg PO BEDTIME 30 Days Qty: 30 0RF nicotine 21 mg/24 hr Patch 24 Hour 21 mg transdermal DAILY 28 Days Qty: 28 0RF docusate sodium 100 mg Capsule 100 mg PO BID 30 Days Qty: 60 0RF omeprazole 20 mg Capsule,Delayed Release(Dr/Ec) 20 mg PO DAILY 30 Days Qty: 30 0RF finasteride [Proscar] 5 mg Tablet 5 mg PO DAILY 30 Days Qty: 30 0RF aripiprazole 15 mg tablet 15 mg PO DAILY 30 Days Qty: 30 0RF Discharge Orders: Discharge Order (Routine); Ordered 09/18/22 Ordered By: Mau Galvan Diet: Advance to usual diet Activity on Discharge: As tolerated Stand Alone Forms: Patient Portal Discharge page Care Plan Goals: recovery Health Concerns: polysubstance dependence Plan of Treatment: avoid drugs and etoh Assessment: see above
--- NOTE | 2022-09-18 09:23 | MHC.CM.PN ---
PT WILL DC TODAY WITH NO SERVICES
--- NOTE | 2022-09-18 10:12 | PC.NURSE ---
Patient c/o pain to feet and headache, medicated with tylenol with good effect. Discharged to home, IV removed from right arm cath intact no pain, redness swelling or warmth. Discharge instructions provided patient able to teach back. Off unit in wheelchair with staff to retrieve belongings from security
== END 2022-09-18 10:15 | disposition home or self-care (01) | DRG 720 ==
LOC: HO.ED 17:32 → HO.EDOVER 17:39 → HO.IMC 09-15 08:25
PROVIDERS: Admitting Provider Student in an Organized Health Care Education/Training Program; Emergency Provider Emergency Medicine; Visit Provider Internal Medicine
DX: A41.9 Sepsis, unspecified organism (principal); G92.8 Other toxic encephalopathy; E87.20 Acidosis, unspecified; F10.239 Alcohol dependence with withdrawal, unspecified; N39.0 Urinary tract infection, site not specified; F19.10 Other psychoactive substance abuse, uncomplicated; E78.00 Pure hypercholesterolemia, unspecified; Z59.02 Unsheltered homelessness; F17.210 Nicotine dependence, cigarettes, uncomplicated; Z71.6 Tobacco abuse counseling; F11.20 Opioid dependence, uncomplicated; Z20.822 Contact with and (suspected) exposure to COVID-19; Z79.84 Long term (current) use of oral hypoglycemic drugs; Z79.899 Other long term (current) drug therapy
CPT/HCPCS: 36415; 70450; 71045; 72125; 80048; 80076; 80202; 80307; 81001; 82550; 82947; 83605; 83690; 83735; 84145; 84484; 85025; 85027; 85610; 86704; 86706; 86803; 87040; 87086; 87340; 87389; 87502; 87635; 93005; 99285; J0696; J1650; J2060; J2405; J2560; J3370; J3371; J3411; J3475

== ENCOUNTER 2022-09-22 14:01 | Emergency (ER) | payer MEDICAID, SELFPAY ==
[2022-09-22 14:11] VITALS: BP 180/92; PULSE 80; O2SAT 99
[2022-09-22 14:13] VITALS: BP 148/90; PULSE 76; RESP 18; TEMP 36.6; O2SAT 98; BMI 19.7
[2022-09-22 14:23] VITALS: BP 157/90; PULSE 74; RESP 19; O2SAT 97
--- NOTE | 2022-09-22 15:27 | ECG_ITS ---
Test Reason : OD Blood Pressure : / mmHG Vent. Rate : 064 BPM Atrial Rate : 064 BPM P-R Int : 178 ms QRS Dur : 138 ms QT Int : 446 ms P-R-T Axes : -06 012 038 degrees QTc Int : 460 ms Normal sinus rhythm Right bundle branch block Abnormal ECG When compared with ECG of 16-JUL-2022 12:54, No significant change was found Referred By: Es Mendez Electronically Signed By:DAMIAN ROSAS MD
--- NOTE | 2022-09-22 15:29 | PC.NURSE ---
resumed care of patient currently stating stable on RA, 97%, labs obtained per provider
--- NOTE | 2022-09-22 15:30 | ED.OVERDOSE ---
HPI - Overdose General Chief Complaint: ETOH/Substance Use Stated Complaint: SUBSTANCE USE PER EMS Time Seen by Provider: 09/22/22 15:23 Source: patient and EMS Mode of arrival: EMS Limitations: other (Intoxicated) History of Present Illness HPI Narrative: Patient comes to the emergency room via EMS. According to bystanders, patient used a speedball, then patient became very somnolent. Patient was given 4 mg of intranasal Narcan, patient woke up immediately and then went back to sleep. Patient awake, very somnolent, unable to give much history, under the influence of drugs versus alcohol. Related Data Home Medications Medication Instructions Recorded Confirmed hydroxyzine pamoate 50 mg capsule 50 mg PO Q8H PRN Anxiety 07/16/22 09/16/22 Previous Rx's Medication Instructions Recorded acetaminophen 325 mg tablet 650 mg PO Q6H PRN Headache/Pain 07/27/22 Mild Scale (1-3) #0 tabs amlodipine 2.5 mg tablet 2.5 mg PO DAILY 30 days #30 tabs 07/27/22 aripiprazole 15 mg tablet 15 mg PO DAILY 30 days #30 tabs 07/27/22 buprenorphine 8 mg-naloxone 2 mg 1 film sublingual TID 14 days #28 07/27/22 sublingual film (Suboxone) ea bupropion HCl 150 mg 24 hr tablet, 450 mg PO DAILY 30 days #90 tabs 07/27/22 extended release buspirone 10 mg tablet 10 mg PO TID PRN anxiety 30 days 07/27/22 #30 tabs clonidine HCl 0.1 mg tablet 0.1 mg PO Q4H PRN anxiety 30 days 07/27/22 #90 tabs docusate sodium 100 mg capsule 100 mg PO BID 30 days #60 caps 07/27/22 finasteride 5 mg tablet (Proscar) 5 mg PO DAILY 30 days #30 tabs 07/27/22 gabapentin 400 mg capsule 800 mg PO QID 30 days #240 caps 07/27/22 lisinopril 20 mg tablet 20 mg PO DAILY 30 days #30 tabs 07/27/22 metformin 500 mg tablet 500 mg PO BIDWM 30 days #60 tabs 07/27/22 nicotine 21 mg/24 hr daily 21 mg transdermal DAILY 28 days 07/27/22 transdermal patch #28 ea omeprazole 20 mg capsule,delayed 20 mg PO DAILY 30 days #30 caps 07/27/22 release tamsulosin 0.4 mg capsule 0.4 mg PO BEDTIME 30 days #30 caps 07/27/22 trazodone 100 mg tablet 200 mg PO BEDTIME 30 days #60 tabs 07/27/22 nicotine (polacrilex) 4 mg gum 4 mg buccal Q2H PRN Nicotine 09/16/22 Cravings 30 days Allergies Allergy/AdvReac Type Severity Reaction Status Date / Time levofloxacin [From Levaquin] Allergy Intermediate rash Verified 09/16/22 15:07 Review of Systems Review of Systems: Yes Unobtainable due to mental condition [facility] Past Medical History Medical History Alcohol use Alcohol use Alcohol use disorder, severe, dependence BPH (benign prostatic hyperplasia) (~10/11/20) Chronic pain Diverticulitis DM II (diabetes mellitus, type II), controlled Drug-induced psychotic disorder High cholesterol (~10/11/20) HTN (hypertension) Marijuana use MDD (major depressive disorder), recurrent episode, severe Neuropathy Opiate dependence Opioid use disorder Opioid use disorder Polysubstance abuse Polysubstance use disorder Recurrent UTI Stimulant use disorder Tobacco use disorder Urinary hesitancy Urinary tract infection Social History Social History (System 09/16/22 @ 15:07 by Gardenia Austin) Household Members: None Household Members Other:: Homeless Housing: Apartment Do you presently have visiting nurse or other home services: No Unable to assess alcohol history related to: Refusing to respond Alcohol intake: current Alcohol intake frequency: 3 or more drinks per day Alcohol type: beer and hard liquor Patient Tobacco Use Status: Current everyday Tobacco user Tobacco use type: Cigarette Cigarette Packs Per Day: 2 Cigarettes Per Day: 40.0 Years Smoked: 20+ Smoked in Last 30 Days: Yes e-Cigarette/Vaping Use: Currently Using Second Hand Smoke Exposure: No Substance Use Type: Crack/Cocaine, Marijuana and Opiates Advance Directives: No service: No Current occupational status: unemployed Sexual orientation: Unable to collect Physical Exam Vital Signs: Vital Signs: Last Vital Signs Temp 98.4 F 09/23/22 04:25 Pulse 58 09/23/22 09:31 Resp 16 09/23/22 09:31 BP 160/94 H 09/23/22 09:31 Pulse Ox 99 09/23/22 09:31 O2 Del Method Room Air 09/23/22 09:31 BMI result Body Mass Index 19.7 Const: Other: Appearance: Somnolent, easily arousable Eyes: Pupils equal, round and reactive to light. ENT: Pharynx normal. Neck: Normal inspection. Neck supple. No lymph nodes noted. No crepitus CVS: Normal heart rate and rhythm. Pulses normal. Normal S1 and S2 Respiratory: No respiratory distress. Breath sounds normal. No Wheezing. No rales Abdomen: Soft and nontender. No rigidity. No distention. Skin: Skin warm and dry. Normal skin color. Normal skin turgor. Extremities: No lower extremity edema. No Lacerations. No Rash Neuro: Oriented X 1. No motor deficit. No sensory deficit. Moving all extremities. No slurred speech. CN 2 through 12 grossly intact Psych: calm, cooperative, normal affect Course Course Course Narrative: -all of patient's labs are pending -care team consult pending Reevaluation(s) Reevaluation #1: Patient is being discharged at this time. He has follow-up for detox/polysubstance abuse rehabilitation. Patient has an elevated blood pressure. This was discussed with the patient. Aware of need for follow-up. Time: 11:15 Medical Decision Making Lab Data 09/22/22 16:01 09/22/22 16:01 Labs: Lab Results 09/22/22 09/22/22 09/22/22 Range/Units 16:01 16:01 16:01 WBC 8.5 (4.8-10.8) X10*3/uL RBC 4.36 L D (4.60-5.80) X10*6/uL Hgb 12.6 L D (14.0-18.0) g/dl Hct 39.5 L (42.0-52.0) % MCV 90.6 (80.0-98.0) fL MCH 28.9 (27.0-33.0) pg MCHC 31.9 (31.0-36.0) g/dl RDW 13.5 (11.0-16.0) % Plt Count 335 (160-400) X10*3/uL MPV 9.6 (9.4-12.4) fL Immature Gran % (Auto) 0.2 (0.0-0.4) % Neut % (Auto) 74.8 H (45-73) % Lymph % (Auto) 15.4 L (20-40) % [place] % (Auto) 7.8 (2-11) % Eos % (Auto) 1.2 (0-4) % Baso % (Auto) 0.6 (0-2) % Lymph # (Auto) 1.3 (1.2-4.9) X10*3/uL [place] # (Auto) 0.7 (0.1-1.2) X10*3/uL Eos # (Auto) 0.1 (0.0-0.4) X10*3/uL Baso # (Auto) 0.1 (0.0-0.2) X10*3/uL Abs Immat Gran (auto) 0.02 (0.00-0.03) X10*3/uL Absolute Neuts (auto) 6.3 (2.0-8.3) x10*3/uL Absolute Nucleated RBC 0.000 (0.0-0.012) X10*3/uL Nucleated RBC % (auto) 0.0 (0.0-0.2) /100WBC PT 11.1 (10.0-13.1) SEC INR 1.0 (0.9-1.1) Sodium 142 (135-145) mmol/L Potassium 4.2 D (3.3-5.1) mmol/L Chloride 104 (96-108) mmol/L Carbon Dioxide 31 H (22-29) mmol/L Anion Gap 11 L (12-20) BUN 11 (9-16) mg/dL Creatinine 0.66 (0.5-1.4) mg/dL Estim Creat Clear Calc 131.4 Estimated GFR > 60 POC Glucose (60-115) mg/dL Random Glucose 102 (60-115) mg/dL Calcium 8.8 (8.4-10.2) mg/dL Magnesium 2.2 (1.6-2.6) mg/dL Total Bilirubin 0.4 (0.0-1.0) mg/dL Direct Bilirubin 0.2 (0.0-0.5) mg/dL AST 28 (5-37) U/L ALT 24 (0-40) U/L Alkaline Phosphatase 51 (39-117) U/L Troponin I High Sens (<3.5-35.0) ng/L Total Protein 7.1 (6.5-8.0) g/dL Albumin 3.5 (3.5-5.0) g/dL Lipase 11 (8-78) U/L Urine Opiates Screen (Not Detect) Urine Fentanyl Screen (Not Detect) Ur Barbiturates Screen (Not Detect) Ur Phencyclidine Scrn (Not Detect) Ur Amphetamines Screen (Not Detect) U Benzodiazepines Scrn (Not Detect) Urine Cocaine Screen (Not Detect) U Marijuana (THC) Screen (Not Detect) Ethyl Alcohol mg/dL 09/22/22 09/22/22 09/22/22 Range/Units 16:01 16:01 17:18 WBC (4.8-10.8) X10*3/uL RBC (4.60-5.80) X10*6/uL Hgb (14.0-18.0) g/dl Hct (42.0-52.0) % MCV (80.0-98.0) fL MCH (27.0-33.0) pg MCHC (31.0-36.0) g/dl RDW (11.0-16.0) % Plt Count (160-400) X10*3/uL MPV (9.4-12.4) fL Immature Gran % (Auto) (0.0-0.4) % Neut % (Auto) (45-73) % Lymph % (Auto) (20-40) % [place] % (Auto) (2-11) % Eos % (Auto) (0-4) % Baso % (Auto) (0-2) % Lymph # (Auto) (1.2-4.9) X10*3/uL [place] # (Auto) (0.1-1.2) X10*3/uL Eos # (Auto) (0.0-0.4) X10*3/uL Baso # (Auto) (0.0-0.2) X10*3/uL Abs Immat Gran (auto) (0.00-0.03) X10*3/uL Absolute Neuts (auto) (2.0-8.3) x10*3/uL Absolute Nucleated RBC (0.0-0.012) X10*3/uL Nucleated RBC % (auto) (0.0-0.2) /100WBC PT (10.0-13.1) SEC INR (0.9-1.1) Sodium (135-145) mmol/L Potassium (3.3-5.1) mmol/L Chloride (96-108) mmol/L Carbon Dioxide (22-29) mmol/L Anion Gap (12-20) BUN (9-16) mg/dL Creatinine (0.5-1.4) mg/dL Estim Creat Clear Calc Estimated GFR POC Glucose 70 (60-115) mg/dL Random Glucose (60-115) mg/dL Calcium (8.4-10.2) mg/dL Magnesium (1.6-2.6) mg/dL Total Bilirubin (0.0-1.0) mg/dL Direct Bilirubin (0.0-0.5) mg/dL AST (5-37) U/L ALT (0-40) U/L Alkaline Phosphatase (39-117) U/L Troponin I High Sens 2.7 D (<3.5-35.0) ng/L Total Protein (6.5-8.0) g/dL Albumin (3.5-5.0) g/dL Lipase (8-78) U/L Urine Opiates Screen (Not Detect) Urine Fentanyl Screen (Not Detect) Ur Barbiturates Screen (Not Detect) Ur Phencyclidine Scrn (Not Detect) Ur Amphetamines Screen (Not Detect) U Benzodiazepines Scrn (Not Detect) Urine Cocaine Screen (Not Detect) U Marijuana (THC) Screen (Not Detect) Ethyl Alcohol < 10 mg/dL 09/22/22 09/22/22 Range/Units 20:17 20:34 WBC (4.8-10.8) X10*3/uL RBC (4.60-5.80) X10*6/uL Hgb (14.0-18.0) g/dl Hct (42.0-52.0) % MCV (80.0-98.0) fL MCH (27.0-33.0) pg MCHC (31.0-36.0) g/dl RDW (11.0-16.0) % Plt Count (160-400) X10*3/uL MPV (9.4-12.4) fL Immature Gran % (Auto) (0.0-0.4) % Neut % (Auto) (45-73) % Lymph % (Auto) (20-40) % [place] % (Auto) (2-11) % Eos % (Auto) (0-4) % Baso % (Auto) (0-2) % Lymph # (Auto) (1.2-4.9) X10*3/uL [place] # (Auto) (0.1-1.2) X10*3/uL Eos # (Auto) (0.0-0.4) X10*3/uL Baso # (Auto) (0.0-0.2) X10*3/uL Abs Immat Gran (auto) (0.00-0.03) X10*3/uL Absolute Neuts (auto) (2.0-8.3) x10*3/uL Absolute Nucleated RBC (0.0-0.012) X10*3/uL Nucleated RBC % (auto) (0.0-0.2) /100WBC PT (10.0-13.1) SEC INR (0.9-1.1) Sodium (135-145) mmol/L Potassium (3.3-5.1) mmol/L Chloride (96-108) mmol/L Carbon Dioxide (22-29) mmol/L Anion Gap (12-20) BUN (9-16) mg/dL Creatinine (0.5-1.4) mg/dL Estim Creat Clear Calc Estimated GFR POC Glucose 93 (60-115) mg/dL Random Glucose (60-115) mg/dL Calcium (8.4-10.2) mg/dL Magnesium (1.6-2.6) mg/dL Total Bilirubin (0.0-1.0) mg/dL Direct Bilirubin (0.0-0.5) mg/dL AST (5-37) U/L ALT (0-40) U/L Alkaline Phosphatase (39-117) U/L Troponin I High Sens (<3.5-35.0) ng/L Total Protein (6.5-8.0) g/dL Albumin (3.5-5.0) g/dL Lipase (8-78) U/L Urine Opiates Screen POSITIVE H (Not Detect) Urine Fentanyl Screen POSITIVE H (Not Detect) Ur Barbiturates Screen POSITIVE H (Not Detect) Ur Phencyclidine Scrn Not Detected (Not Detect) Ur Amphetamines Screen Not Detected (Not Detect) U Benzodiazepines Scrn Not Detected (Not Detect) Urine Cocaine Screen POSITIVE H (Not Detect) U Marijuana (THC) Screen POSITIVE H (Not Detect) Ethyl Alcohol mg/dL Discharge Plan Discharge Clinical Impression: Polysubstance abuse, Elevated blood pressure reading Patient Disposition: Home, Self-Care Instructions: Polysubstance Abuse (ED), DASH Eating Plan (ED) Prescriptions: No Action hydroxyzine pamoate 50 mg capsule 50 mg PO Q8H PRN (Reason: Anxiety) clonidine HCl 0.1 mg Tablet 0.1 mg PO Q4H PRN (Reason: anxiety) 30 Days Qty: 90 0RF Protocol: Hold for SBP< HOLD for SBP < : 90 gabapentin 400 mg Capsule 800 mg PO QID 30 Days Qty: 240 0RF trazodone 100 mg Tablet 200 mg PO BEDTIME 30 Days Qty: 60 0RF acetaminophen 325 mg Tablet 650 mg PO Q6H PRN (Reason: Headache/Pain Mild Scale (1-3)) Qty: 0 0RF buprenorphine-naloxone [Suboxone] 8-2 mg Film 1 film sublingual TID 14 Days Qty: 28 0RF bupropion HCl 150 mg Tablet Extended Release 24 Hr 450 mg PO DAILY 30 Days Qty: 90 0RF buspirone 10 mg Tablet 10 mg PO TID PRN (Reason: anxiety) 30 Days Qty: 30 0RF metformin 500 mg Tablet 500 mg PO BIDWM 30 Days Qty: 60 0RF lisinopril 20 mg tablet 20 mg PO DAILY 30 Days Qty: 30 0RF amlodipine 2.5 mg tablet 2.5 mg PO DAILY 30 Days Qty: 30 0RF tamsulosin 0.4 mg Capsule 0.4 mg PO BEDTIME 30 Days Qty: 30 0RF nicotine 21 mg/24 hr Patch 24 Hour 21 mg transdermal DAILY 28 Days Qty: 28 0RF docusate sodium 100 mg Capsule 100 mg PO BID 30 Days Qty: 60 0RF omeprazole 20 mg Capsule,Delayed Release(Dr/Ec) 20 mg PO DAILY 30 Days Qty: 30 0RF finasteride [Proscar] 5 mg Tablet 5 mg PO DAILY 30 Days Qty: 30 0RF aripiprazole 15 mg tablet 15 mg PO DAILY 30 Days Qty: 30 0RF Referrals: Pato Gastelum MD [Primary Care Provider] - 3 days
[2022-09-22 16:07] LABS: MANUAL DIFF FLAG NO
[2022-09-22 16:09] LABS: Basophils Absolute Auto 0.1 X10*3/uL (0.0-0.2); Basophils Percent Auto 0.6 % (0-2); Eosinophils Absolute Auto 0.1 X10*3/uL (0.0-0.4); Eosinophils Percent Auto 1.2 % (0-4); Hematocrit 39.5 % (42.0-52.0); Hemoglobin 12.6 g/dl (14.0-18.0); Imm Gran Abs Auto 0.02 X10*3/uL (0.00-0.03); Imm Gran Pct Auto 0.2 % (0.0-0.4); Lymphocytes Absolute Auto 1.3 X10*3/uL (1.2-4.9); Lymphocytes Percent Auto 15.4 % (20-40); Mean Corpuscular HGB Conc 31.9 g/dl (31.0-36.0); Mean Corpuscular Hemoglobin 28.9 pg (27.0-33.0); Mean Corpuscular Volume 90.6 fL (80.0-98.0); Mean Platelet Volume 9.6 fL (9.4-12.4); Monocytes Absolute Auto 0.7 X10*3/uL (0.1-1.2); Monocytes Percent Auto 7.8 % (2-11); Neutrophils Absolute Auto 6.3 x10*3/uL (2.0-8.3); Neutrophils Percent Auto 74.8 % (45-73); Platelet Count 335 X10*3/uL (160-400); Red Blood Count 4.36 X10*6/uL (4.60-5.80); Red Cell Distribution Width 13.5 % (11.0-16.0); White Blood Count 8.5 X10*3/uL (4.8-10.8)
[2022-09-22 16:14] LABS: Prothrombin Time 11.1 SEC (10.0-13.1)
[2022-09-22 16:22] LABS: Ethanol < 10 mg/dL
[2022-09-22 16:25] LABS: Alanine Aminotransferase 24 U/L (0-40); Albumin Level 3.5 g/dL (3.5-5.0); Alkaline Phosphatase 51 U/L (39-117); Anion Gap 11 (12-20); Aspartate Amino Transferase 28 U/L (5-37); Bilirubin Direct 0.2 mg/dL (0.0-0.5); Bilirubin Total 0.4 mg/dL (0.0-1.0); Blood Urea Nitrogen 11 mg/dL (9-16); Calcium 8.8 mg/dL (8.4-10.2); Carbon Dioxide 31 mmol/L (22-29); Chloride 104 mmol/L (96-108); Creatinine Clr Calc Pharmacy 131.4; Estimated Glomerular Filt Rate > 60; Glucose Random 102 mg/dL (60-115); Lipase 11 U/L (8-78); Magnesium 2.2 mg/dL (1.6-2.6); Potassium 4.2 mmol/L (3.3-5.1); Sodium 142 mmol/L (135-145); Total Protein 7.1 g/dL (6.5-8.0)
[2022-09-22 16:32] LABS: Troponin-I High Sensitivity 2.7 ng/L (<3.5-35.0)
[2022-09-22 17:23] LABS: Glucose, Whole Blood 70 mg/dL (60-115)
--- NOTE | 2022-09-22 17:34 | MHC.RECOVSUP ---
? Reason for consult recovery support o Current location:[facility] o Identified substance use concern: heroin - Overdose - Seeking ATS (detox) - Support ? Intervention: o ATS bed search started 520PM /[id number] o Community resources provided o Harm reduction discussion ? Plan: o Patient to follow up with [facility] after discharge ? Additional information: Met with patient and we talk about recovery.. patient stated that he wanted to go to a ATS.. I called [facility] and patient did a intake... Paper work was Fax.. Waiting cotton stripper back after ATS review paper work...
--- NOTE | 2022-09-22 17:36 | MHC.EDTECH ---
Brought patient orange juice and a warm blanket.
[2022-09-22 20:06] VITALS: BP 133/76; PULSE 55; RESP 18; TEMP 35.8; O2SAT 98
--- NOTE | 2022-09-22 20:12 | PC.NURSE ---
patient received in bed with eyes closed patient vitals are stable patient is still drowsy easy arousal patient have no signs of distress at this time patient will continue to be monitored for safety
[2022-09-22 20:20] LABS: Glucose, Whole Blood 93 mg/dL (60-115)
[2022-09-22 20:50] LABS: Amphetamine Screen Urine Not Detected (Not Detect); Barbiturates, Urine POSITIVE (Not Detect); Benzodiazepines Screen Urine Not Detected (Not Detect); Cannabinoid Screen Urine POSITIVE (Not Detect); Cocaine Screen Urine POSITIVE (Not Detect); Fentanyl, urine POSITIVE (Not Detect); Opiate Screen Urine POSITIVE (Not Detect); Phencyclidine Screen Urine Not Detected (Not Detect)
--- NOTE | 2022-09-22 22:43 | PC.NURSE ---
patient on stretcher with eyes closed patient is showing no distress at this time patient will continue to be monitored for safety
[2022-09-23 00:53] VITALS: BP 125/85; PULSE 88; RESP 18; TEMP 36.9; O2SAT 99
[2022-09-23 04:25] VITALS: BP 135/80; PULSE 88; RESP 18; TEMP 36.9; O2SAT 99
--- NOTE | 2022-09-23 08:50 | MHC.RECOVRN ---
Spoke with Ashley Brenner at [facility]. Per Ashley, pt has not completed phone screen. Referral has been sent for review, awaiting notification on bed availability.
--- NOTE | 2022-09-23 09:17 | MHC.RECOVRN ---
Pt accepted to [facility] pending phone screen.
[2022-09-23 09:31] VITALS: BP 160/94; PULSE 58; RESP 16; O2SAT 99
--- NOTE | 2022-09-23 10:47 | MHC.RECOVSUP ---
PT accepted to [facility] ordered to pick him up around 11:20am for 12pm admission.
== END 2022-09-23 12:05 | disposition home or self-care (01) ==
PROVIDERS: Emergency Provider Emergency Medicine; PCP Internal Medicine
DX: F19.10 Other psychoactive substance abuse, uncomplicated (principal); R40.0 Somnolence; I10 Essential (primary) hypertension
CPT/HCPCS: 36415; 80048; 80076; 80307; 82947; 83690; 83735; 84484; 85025; 85610; 93005; 99284; 99285

== ENCOUNTER 2022-12-18 18:20 | Emergency (ER) | payer MEDICAID, OTHER, SELFPAY ==
[2022-12-18 18:29] VITALS: BP 168/100; PULSE 81; O2SAT 96; BMI 22.0
--- NOTE | 2022-12-18 18:32 | PC.NURSE ---
Patient arrived via ems crying, unable to sit upright, jerking body movements, unable to sit still. Patient reports using cocaine and heroin within the last hour, reports 10/10 foot pain. Upon inspection feet and toes with white areas that appear to be from patient wearing wet shoes. Patient with boots next time him with wet socks. Patient with poor eye contact, crying stating he cant ogo on like this and he wants to . Patient denies trauma to feet, but unable to say why they hurt. Changed into hospital attire with tech and security.
[2022-12-18 18:35] VITALS: BP 198/105; PULSE 82; RESP 18; TEMP 36.8; O2SAT 96
--- NOTE | 2022-12-18 18:40 | PC.NURSE ---
Patient reports using large quantity of etoh today, unable to recall how much
[2022-12-18 19:37] LABS: MANUAL DIFF FLAG NO
[2022-12-18 19:39] LABS: Basophils Absolute Auto 0.1 X10*3/uL (0.0-0.2); Basophils Percent Auto 0.7 % (0-2); Eosinophils Absolute Auto 0.1 X10*3/uL (0.0-0.4); Eosinophils Percent Auto 0.5 % (0-4); Hematocrit 38.9 % (42.0-52.0); Hemoglobin 13.4 g/dl (14.0-18.0); Imm Gran Abs Auto 0.03 X10*3/uL (0.00-0.03); Imm Gran Pct Auto 0.3 % (0.0-0.4); Lymphocytes Absolute Auto 1.4 X10*3/uL (1.2-4.9); Mean Corpuscular HGB Conc 34.4 g/dl (31.0-36.0); Mean Corpuscular Hemoglobin 30.2 pg (27.0-33.0); Mean Corpuscular Volume 87.6 fL (80.0-98.0); Mean Platelet Volume 9.5 fL (9.4-12.4); Monocytes Absolute Auto 0.7 X10*3/uL (0.1-1.2); Monocytes Percent Auto 6.9 % (2-11); Neutrophils Absolute Auto 8.5 x10*3/uL (2.0-8.3); Neutrophils Percent Auto 78.6 % (45-73); Platelet Count 305 X10*3/uL (160-400); Red Blood Count 4.44 X10*6/uL (4.60-5.80); Red Cell Distribution Width 12.9 % (11.0-16.0); White Blood Count 10.7 X10*3/uL (4.8-10.8)
[2022-12-18 19:41] LABS: Appearance Urine Clear; Color Urine Dark Yellow; Glucose Urine UA Negative (Negative); Leukocyte Esterase Urine Negative (Negative); Nitrite Urine Negative (Negative); PH 5.5 (5.0-9.0); Specific Gravity - Urine >= 1.030 (1.005-1.025); UMIC TRIGGER UA YES; Urine Blood Negative (Negative); Urine Ketones Negative (Negative); Urine Protein 30 (1+) mg/dL (Neg-Trace)
[2022-12-18 19:50] LABS: Amphetamine Screen Urine Not Detected (Not Detect); Barbiturates, Urine Not Detected (Not Detect); Benzodiazepines Screen Urine Not Detected (Not Detect); Cannabinoid Screen Urine POSITIVE (Not Detect); Cocaine Screen Urine POSITIVE (Not Detect); Fentanyl, urine POSITIVE (Not Detect); Opiate Screen Urine POSITIVE (Not Detect); Phencyclidine Screen Urine Not Detected (Not Detect)
[2022-12-18 19:56] LABS: Bacteria Urine 1+ (None Seen); RBC Urine 0-2 /HPF (0-2)
[2022-12-18 20:11] LABS: Alanine Aminotransferase 37 U/L (0-40); Albumin Level 4.1 g/dL (3.5-5.0); Alkaline Phosphatase 63 U/L (39-117); Anion Gap 13 (12-20); Aspartate Amino Transferase 94 U/L (5-37); Bilirubin Total 0.9 mg/dL (0.0-1.0); Blood Urea Nitrogen 17 mg/dL (9-16); Calcium 9.5 mg/dL (8.4-10.2); Carbon Dioxide 25 mmol/L (22-29); Chloride 98 mmol/L (96-108); Creatinine Clr Calc Pharmacy 114.1; Estimated Glomerular Filt Rate > 60; Ethanol < 10 mg/dL; Glucose Random 102 mg/dL (60-115); Potassium 3.8 mmol/L (3.3-5.1); Sodium 132 mmol/L (135-145)
--- NOTE | 2022-12-18 21:42 | ED_ITS ---
HPI - Psych General Chief Complaint: ETOH/Substance Use Stated Complaint: Body pain, SI Time Seen by Provider: 12/18/22 19:09 History of Present Illness HPI Narrative: Patient history of hypertension. History of polysubstance abuse. Was walking for long period of time complaining of blisters to his feet. Now has suicidal thoughts. Patient admits to using cocaine, heroin, fentanyl, marijuana. He refused to answer any detailed questions. Came in for further evaluation. Related Data Home Medications Medication Instructions Recorded Confirmed hydroxyzine pamoate 50 mg capsule 50 mg PO Q8H PRN Anxiety 07/16/22 12/18/22 Previous Rx's Medication Instructions Recorded acetaminophen 325 mg tablet 650 mg (2 x 325 mg) PO Q6H PRN 07/27/22 Headache/Pain Mild Scale (1-3) #0 tabs amlodipine 2.5 mg tablet 2.5 mg PO DAILY 30 days #30 tabs 07/27/22 aripiprazole 15 mg tablet 15 mg PO DAILY 30 days #30 tabs 07/27/22 bupropion HCl 150 mg 24 hr tablet, 450 mg (3 x 150 mg) PO DAILY 30 07/27/22 extended release days #90 tabs buspirone 10 mg tablet 10 mg PO TID PRN anxiety 30 days 07/27/22 #30 tabs clonidine HCl 0.1 mg tablet 0.1 mg PO Q4H PRN anxiety 30 days 07/27/22 #90 tabs docusate sodium 100 mg capsule 100 mg PO BID 30 days #60 caps 07/27/22 finasteride 5 mg tablet (Proscar) 5 mg PO DAILY 30 days #30 tabs 07/27/22 gabapentin 400 mg capsule 800 mg (2 x 400 mg) PO QID 30 days 07/27/22 #240 caps lisinopril 20 mg tablet 20 mg PO DAILY 30 days #30 tabs 07/27/22 metformin 500 mg tablet 500 mg PO BIDWM 30 days #60 tabs 07/27/22 nicotine 21 mg/24 hr daily 21 mg transdermal DAILY 28 days 07/27/22 transdermal patch #28 ea omeprazole 20 mg capsule,delayed 20 mg PO DAILY 30 days #30 caps 07/27/22 release tamsulosin 0.4 mg capsule 0.4 mg PO BEDTIME 30 days #30 caps 07/27/22 trazodone 100 mg tablet 200 mg (2 x 100 mg) PO BEDTIME 30 07/27/22 days #60 tabs nicotine (polacrilex) 4 mg gum 4 mg buccal Q2H PRN Nicotine 09/16/22 Cravings 30 days Allergies Allergy/AdvReac Type Severity Reaction Status Date / Time levofloxacin [From Levaquin] Allergy Intermediate rash Verified 09/16/22 15:07 Review of Systems 2 Review of Systems: Refused to answer specific review systems PMFSH Past Medical History Medical History Polysubstance abuse Urinary tract infection Polysubstance use disorder Recurrent UTI Opiate dependence MDD (major depressive disorder), recurrent episode, severe Drug-induced psychotic disorder Marijuana use Alcohol use Tobacco use disorder Opioid use disorder Alcohol use Urinary hesitancy Alcohol use disorder, severe, dependence Stimulant use disorder Diverticulitis BPH (benign prostatic hyperplasia) (~10/11/20) DM II (diabetes mellitus, type II), controlled Chronic pain Neuropathy High cholesterol (~10/11/20) HTN (hypertension) Opioid use disorder Social History Social History Household Members: None Household Members Other:: Homeless Housing: Apartment Do you presently have visiting nurse or other home services: No Unable to assess alcohol history related to: Refusing to respond Alcohol intake: current Alcohol intake frequency: 3 or more drinks per day Alcohol type: beer Patient Tobacco Use Status: Current everyday Tobacco user Tobacco use type: Cigarette Cigarette Packs Per Day: 2 Cigarettes Per Day: 40.0 Years Smoked: 20+ Smoked in Last 30 Days: Yes e-Cigarette/Vaping Use: Currently Using Second Hand Smoke Exposure: No Substance Use Type: Crack/Cocaine, Marijuana and Opiates Advance Directives: No Advance Directives Information Provided: No service: No Current occupational status: unemployed Sexual orientation: Unable to collect Physical Exam 2 Vital Signs: Vital Signs: Last Vital Signs Temp 98.2 F 12/18/22 18:35 Pulse 82 12/18/22 18:35 Resp 18 12/18/22 18:35 BP 198/105 H 12/18/22 18:35 Pulse Ox 96 12/18/22 18:35 O2 Del Method Room Air 12/18/22 18:35 BMI result Body Mass Index 22.0 Appearance: Alert. No acute distress. Eyes: Pupils equal, round and reactive to light. ENT: Pharynx normal. Neck: Normal inspection. Neck supple. No lymph nodes noted. No crepitus CVS: Normal heart rate and rhythm. Pulses normal. Normal S1 and S2 Respiratory: No respiratory distress. Breath sounds normal. No Wheezing. No rales Abdomen: Soft and nontender. No rigidity. No distention. good BS x4 Skin: Skin warm and dry. Normal skin color. Normal skin turgor. Extremities: No lower extremity edema. Neurovascular intact to all extremities. No Lacerations. Positive blisters to bilateral palmar surface of the Neuro: No motor deficit. No sensory deficit. Moving all extermities. No slurred speech. Cranial nerves grossly intact Medications Administered Discontinued Medications Generic Name Dose Route Start Last Admin Trade Name Freq PRN Reason Stop Dose Admin Amlodipine Besylate 5 mg 12/18/22 21:28 12/18/22 21:46 Amlodipine Besylate 5 Mg Tablet PO 12/18/22 21:29 5 mg ONCE ONE Administration Protocol Lisinopril 20 mg 12/18/22 21:28 12/18/22 21:46 Lisinopril 20 Mg Tablet PO 12/18/22 21:29 20 mg ONCE ONE Administration Protocol Medical Decision Making Medical Decision Making [facility] Narrative: Patient given his blood pressure medication as it is extremely elevated at 1 90/100. He complained of suicidal ideation. Positive polysubstance abuse. He will get crisis to evaluate patient. Patient admits to using cocaine, heroin, marijuana. Positive suicidal ideation positive ambulating for long distance. Positive blisters to the feet. Will get his feet to be clean. Patient pending crisis evaluation. In stable condition. Differential Diagnosis Differential Diagnoses: The differential diagnosis associated with the presentation includes Suicidal ideation, polysubstance abuse Consult Healthcare Provider Management of the patient was discussed with: Manager Heart Failure Care team crisis Lab Data [facility] Lab Attestation statement: I reviewed the patient's lab results. 12/18/22 19:29 12/18/22 19:29 Labs: Lab Results 12/18/22 12/18/22 12/18/22 Range/Units 19:27 19:28 19:29 WBC 10.7 (4.8-10.8) X10*3/uL RBC 4.44 L (4.60-5.80) X10*6/uL Hgb 13.4 L (14.0-18.0) g/dl Hct 38.9 L (42.0-52.0) % MCV 87.6 (80.0-98.0) fL MCH 30.2 (27.0-33.0) pg MCHC 34.4 (31.0-36.0) g/dl RDW 12.9 (11.0-16.0) % Plt Count 305 (160-400) X10*3/uL MPV 9.5 (9.4-12.4) fL Immature Gran % (Auto) 0.3 (0.0-0.4) % Neut % (Auto) 78.6 H (45-73) % Lymph % (Auto) 13.0 L (20-40) % [place] % (Auto) 6.9 (2-11) % Eos % (Auto) 0.5 (0-4) % Baso % (Auto) 0.7 (0-2) % Lymph # (Auto) 1.4 (1.2-4.9) X10*3/uL [place] # (Auto) 0.7 (0.1-1.2) X10*3/uL Eos # (Auto) 0.1 (0.0-0.4) X10*3/uL Baso # (Auto) 0.1 (0.0-0.2) X10*3/uL Abs Immat Gran (auto) 0.03 (0.00-0.03) X10*3/uL Absolute Neuts (auto) 8.5 H (2.0-8.3) x10*3/uL Absolute Nucleated RBC 0.000 (0.0-0.012) X10*3/uL Nucleated RBC % (auto) 0.0 (0.0-0.2) /100WBC Sodium 132 L (135-145) mmol/L Potassium 3.8 (3.3-5.1) mmol/L Chloride 98 (96-108) mmol/L Carbon Dioxide 25 (22-29) mmol/L Anion Gap 13 (12-20) BUN 17 H (9-16) mg/dL Creatinine 0.76 (0.5-1.4) mg/dL Estim Creat Clear Calc 114.1 Estimated GFR > 60 Random Glucose 102 (60-115) mg/dL Calcium 9.5 D (8.4-10.2) mg/dL Total Bilirubin 0.9 (0.0-1.0) mg/dL AST 94 H (5-37) U/L ALT 37 (0-40) U/L Alkaline Phosphatase 63 (39-117) U/L Total Protein 8.0 (6.5-8.0) g/dL Albumin 4.1 (3.5-5.0) g/dL Urine Color Dark Yellow Urine Appearance Clear Urine pH 5.5 (5.0-9.0) Ur Specific [place] >= 1.030 H (1.005-1.025) Urine Protein 30 (1+) H (Neg-Trace) mg/dL Urine Glucose (UA) Negative (Negative) mg/dL Urine Ketones Negative (Negative) mg/dL Urine Blood Negative (Negative) Urine Nitrite Negative (Negative) Ur Leukocyte Esterase Negative (Negative) Urine RBC 0-2 (0-2) /HPF Urine WBC 11-20 H (0-5) /HPF Ur Squamous Epith Cells 3-5 (0-2) /HPF Urine Bacteria 1+ (None Seen) Hyaline Casts 3-5 (0-2) /LPF Urine Opiates Screen POSITIVE H (Not Detect) Urine Fentanyl Screen POSITIVE H (Not Detect) Ur Barbiturates Screen Not Detected (Not Detect) Ur Phencyclidine Scrn Not Detected (Not Detect) Ur Amphetamines Screen Not Detected (Not Detect) U Benzodiazepines Scrn Not Detected (Not Detect) Urine Cocaine Screen POSITIVE H (Not Detect) U Marijuana (THC) Screen POSITIVE H (Not Detect) Ethyl Alcohol < 10 mg/dL Discharge Plan Discharge Clinical Impression: Polysubstance (including opioids) dependence, daily use Patient Disposition: Still a Patient Prescriptions: No Action hydroxyzine pamoate 50 mg capsule 50 mg PO Q8H PRN (Reason: Anxiety) clonidine HCl 0.1 mg Tablet 0.1 mg PO Q4H PRN (Reason: anxiety) 30 Days Qty: 90 0RF Protocol: Hold for SBP< HOLD for SBP < : 90 gabapentin 400 mg Capsule 800 mg PO QID 30 Days Qty: 240 0RF trazodone 100 mg Tablet 200 mg PO BEDTIME 30 Days Qty: 60 0RF acetaminophen 325 mg Tablet 650 mg PO Q6H PRN (Reason: Headache/Pain Mild Scale (1-3)) Qty: 0 0RF bupropion HCl 150 mg Tablet Extended Release 24 Hr 450 mg PO DAILY 30 Days Qty: 90 0RF buspirone 10 mg Tablet 10 mg PO TID PRN (Reason: anxiety) 30 Days Qty: 30 0RF metformin 500 mg Tablet 500 mg PO BIDWM 30 Days Qty: 60 0RF lisinopril 20 mg tablet 20 mg PO DAILY 30 Days Qty: 30 0RF amlodipine 2.5 mg tablet 2.5 mg PO DAILY 30 Days Qty: 30 0RF tamsulosin 0.4 mg Capsule 0.4 mg PO BEDTIME 30 Days Qty: 30 0RF nicotine 21 mg/24 hr Patch 24 Hour 21 mg transdermal DAILY 28 Days Qty: 28 0RF docusate sodium 100 mg Capsule 100 mg PO BID 30 Days Qty: 60 0RF omeprazole 20 mg Capsule,Delayed Release(Dr/Ec) 20 mg PO DAILY 30 Days Qty: 30 0RF finasteride [Proscar] 5 mg Tablet 5 mg PO DAILY 30 Days Qty: 30 0RF aripiprazole 15 mg tablet 15 mg PO DAILY 30 Days Qty: 30 0RF
[2022-12-18] MEDS: amLODIPine Besylate 5 MG TABLET PO (21:46)
[2022-12-18] MEDS: lisinopriL 20 MG TABLET PO (21:46)
--- NOTE | 2022-12-19 06:33 | PC.NURSE ---
Patient slept through the night, no distress observed/reported, care consult ordered for SI, pending evaluation, med rec completed/but patient is off his medication, Amlodipine 5 mg and lisinopril 20 mg administered at 2146, will continue to monitor.
[2022-12-19 06:52] VITALS: BP 181/98; PULSE 68; RESP 17; TEMP 36.9; O2SAT 96
[2022-12-19 14:30] VITALS: BP 171/103; PULSE 69; RESP 16; TEMP 36.4; O2SAT 98
[2022-12-19] MEDS: LORazepam 1 MG TABLET PO (14:39)
--- NOTE | 2022-12-19 15:27 | PC.NURSE ---
Patient alert and oriented x 3 able to rouse without difficulty. This nurse gave patient extra water and PRN for elevated CIWA. Will continue to monitor.
[2022-12-19] MEDS: Gabapentin 400 MG CAPSULE 800 MG PO ×2 (17:01→20:41)
--- NOTE | 2022-12-19 17:55 | MHC.CARE ---
Tw sent this pt assessment to [facility] for [facility]CS referral.
[2022-12-19] MEDS: traZODone HCL 100 MG TABLET 200 MG PO (20:40)
[2022-12-19] MEDS: cloNIDine HCL 0.1 MG TABLET PO (20:41)
[2022-12-19] MEDS: Docusate Sodium 100 MG CAPSULE PO (20:43)
[2022-12-19] MEDS: Tamsulosin HCL 0.4 MG CAPSULE PO (20:45)
[2022-12-19 20:51] VITALS: BP 193/111; PULSE 58; RESP 18; TEMP 37.2; O2SAT 100
[2022-12-19] MEDS: amLODIPine Besylate 2.5 MG TABLET PO (20:53)
[2022-12-19] MEDS: lisinopriL 20 MG TABLET PO (20:54)
--- NOTE | 2022-12-19 20:59 | MHC.CARE ---
Pt was denied by [facility] due to increased heart rate and what they perceived as continuing to go through withdrawals. Per Jody Larsen AVP the CARE Team will re-present the pt to [facility] once his heart rate goes down.
[2022-12-19 23:07] VITALS: BP 161/98; PULSE 95; RESP 18; TEMP 36.6; O2SAT 97
--- NOTE | 2022-12-20 05:26 | PC.NURSE ---
Patient slept through the night, no distress observed/reported, asymptomatic of withdrawal, disposition per care team is Respite bed search, no update on bed search yet, Missed Lisinopril and amlodipine dose administered, BP stabilizing, behavior non concerning, will continue to monitor.
[2022-12-20] MEDS: Omeprazole 20 MG CAPSULE.DR PO (06:46)
[2022-12-20 08:12] VITALS: BP 149/94; PULSE 83; RESP 17; O2SAT 97
[2022-12-20] MEDS: Gabapentin 400 MG CAPSULE 800 MG PO ×4 (08:21→21:43)
[2022-12-20] MEDS: Docusate Sodium 100 MG CAPSULE PO ×2 (08:21→21:43)
[2022-12-20] MEDS: amLODIPine Besylate 2.5 MG TABLET PO (08:21)
[2022-12-20] MEDS: buPROPion HCl XL 150 MG TAB.ER.24H 450 MG PO (08:22)
[2022-12-20] MEDS: Nicotine 21 MG PATCH.TD24 TRANSDERMA (08:22)
[2022-12-20] MEDS: ARIPiprazole 15 MG TABLET PO (08:22)
[2022-12-20] MEDS: lisinopriL 20 MG TABLET PO (08:22)
[2022-12-20] MEDS: metFORMIN HCl 500 MG TABLET PO ×3 (08:22→17:27)
[2022-12-20] MEDS: Finasteride 5 MG TABLET PO (08:22)
[2022-12-20 08:33] VITALS: BP 142/88; PULSE 73; RESP 13; TEMP 36.8; O2SAT 97
--- NOTE | 2022-12-20 13:51 | MHC.CARE ---
per Kalee, patient assessment has been received by the [facility] and has now been activated for review.
[2022-12-20 16:33] VITALS: BP 136/91; PULSE 78; RESP 17; O2SAT 96
--- NOTE | 2022-12-20 17:09 | MHC.CARE ---
Follow up call to [facility], patient was declined from [facility] due to high blood sugar. Cannot be re-referred due to medical reasons.
--- NOTE | 2022-12-20 17:16 | MHC.CARE ---
Per [facility] pt is denied from their facility due to high blood sugar. This info is passed along to BARBARA Flynn, who reports that blood glucose is wnl. This is passed along to [facility] team, and they agree to have nursing staff call back.
--- NOTE | 2022-12-20 18:18 | PC.NURSE ---
Sukhwinder has been in bed in his room for much of the shift. Pleasant on engagement and compliant with all scheduled medications. Sukhwinder reports he has rib pain from an injury but states he has had this for awhile . Sukhwinder has had no behavioral concerns.
[2022-12-20] MEDS: traZODone HCL 100 MG TABLET 200 MG PO (21:43)
[2022-12-20] MEDS: Tamsulosin HCL 0.4 MG CAPSULE PO (21:48)
--- NOTE | 2022-12-20 22:54 | PC.NURSE ---
Patient alert and oriented. Medications administered as per 4. Denies SI/HI at this time. PT given apple juice and sun butter and jelly as requested. Plan of care on going
--- NOTE | 2022-12-21 06:20 | PC.NURSE ---
PT sleeping, woke up for vitals and assessments with no issues. PT denies SI at this time. CIWA2. Bp 159/100. Pt has HTN is due for bp meds between 8 and 9. Reports 10/10 pain in bilateral feet and rib cage. no complaints or behavioral concerns at this time. Plan of care on going
[2022-12-21 06:24] VITALS: BP 166/99; PULSE 73; RESP 17; TEMP 36.9; O2SAT 96
[2022-12-21] MEDS: Omeprazole 20 MG CAPSULE.DR PO (06:25)
[2022-12-21] MEDS: Acetaminophen 325 MG TABLET 650 MG PO (06:25)
--- NOTE | 2022-12-21 06:27 | PC.NURSE ---
PRN tylenol and 6am medications administer as per MAR
--- NOTE | 2022-12-21 09:22 | MHC.CARE ---
patient requesting to be lyfted to his father's house. Declined recovery support services/ LYFT to [facility] and declined Living Room.
[2022-12-21] MEDS: Gabapentin 400 MG CAPSULE 800 MG PO (09:36)
[2022-12-21] MEDS: Finasteride 5 MG TABLET PO (09:36)
[2022-12-21] MEDS: buPROPion HCl XL 150 MG TAB.ER.24H 450 MG PO (09:36)
[2022-12-21] MEDS: amLODIPine Besylate 2.5 MG TABLET PO (09:37)
[2022-12-21] MEDS: metFORMIN HCl 500 MG TABLET PO (09:37)
[2022-12-21] MEDS: ARIPiprazole 15 MG TABLET PO (09:37)
[2022-12-21] MEDS: Docusate Sodium 100 MG CAPSULE PO (09:37)
[2022-12-21] MEDS: lisinopriL 20 MG TABLET PO (09:37)
== END 2022-12-21 09:48 | disposition home or self-care (01) ==
PROVIDERS: Emergency Provider Emergency Medicine Emergency Medical Services
DX: R45.851 Suicidal ideations (principal); F19.10 Other psychoactive substance abuse, uncomplicated; R23.8 Other skin changes; E11.9 Type 2 diabetes mellitus without complications; I10 Essential (primary) hypertension; E78.5 Hyperlipidemia, unspecified; F11.20 Opioid dependence, uncomplicated; F17.210 Nicotine dependence, cigarettes, uncomplicated; Z79.84 Long term (current) use of oral hypoglycemic drugs; Z79.899 Other long term (current) drug therapy
CPT/HCPCS: 36415; 80053; 80307; 81001; 85025; 99285; S9485

== ENCOUNTER 2025-01-16 03:26 | Inpatient (IN) | payer OTHER, SELFPAY ==
[2025-01-16 03:27] VITALS: BP 149/99; PULSE 86; RESP 16; TEMP 36.6; O2SAT 96; BMI 20.3
--- OUTSIDE RECORDS SUMMARY | 2025-01-16 03:52 | XMS_ITS | Encounter Summary ---
Author Organization [facility] Address [address] [place] [address] Phone Care Team Providers Care Pipe Layer Helper Name Role Phone Unavailable Primary Care Provider Unavailabl e Encounter Details Date Type Department Care Team (Late st Contact Info) Description 07/08/2020 Orders Only [facility] [address] [place] [address] Provider, Dona, Social History Tobacco Use Types Packs/Day Years Used Date Smoking Tobacco: Never Assessed Sex and Gender Information Value Date Recorded Sex Assigned at Not on file Legal Sex Male 8:54 AM EDT Gender Identity Not on file Sexual Orientation Not on file documented as of this encounter Plan of Treatment Not on file documented as of this encounter Procedures Procedure Name Priority Date/Time Associated Diagnosis Comments EXT RESULT ENTRY Routine 07/08/2020 documented in this encounter Results * EXT RESULT ENTRY (07/08/2020) us Historical Provider LAB BLOOD ORDERABLES Allyssa l Result documented in this encounter Visit Diagnoses Not on filedocumented in this encounter
--- OUTSIDE RECORDS SUMMARY | 2025-01-16 03:52 | XMS_ITS ---
Author Organization [employer] Address [address] [place] [address] Care Team Providers Care Army Officer Name Role Phone Gerry Henao RN Unavailable [phone] Kari Delgadillo Unavailable CM Complex Status:Outreach In Progress (Enrolling) Start date:12/14/2024 Enrollment reason:ADT Feed Overview ADT- Pt admitted to [facility] under observation on 12/13/24. Case Team Name Relationship Phone Gerry Henao RN(Responsible Staff) Registered N [facility] [phone] Continued Care and Services Coordination
--- OUTSIDE RECORDS SUMMARY | 2025-01-16 03:52 | XMS_ITS | Encounter Summary ---
Author Organization [employer] Address [address] [facility] [address] [address] [place] [address] Care Team Providers Care Airways Control Specialist Name Role Phone Gerry Henao RN Unavailable [phone] Kari Delgadillo Unavailable Reason for Visit * Reason Comments Care Coordination C3 CM-CHW Kari sauer telephone call outreach Encounter Details Date Type Department Care Team (Latest Contact Info) Description 01/14/2025 Patient Outreach [facility] [address] [place] [address] Kari Delgadillo Care Coordination (C3 CM-CHW Kari Delgadillo telephone call outreach) Social History Tobacco Use Types Packs/Day Years Used Date Smoking Tobacco: Former Cigarettes 0.3 0.5 Passive Smoke Exposure: Past Smokeless Tobacco: Current Alcohol Use Standard Drinks/Week Comments Defer 0 (1 standard drink = 0.6 oz pur e alcohol) Sex and Gender Information Value Date Recorded Sex Assigned at Male 02/08/2022 10:36 AM EDT Legal Sex Male 10:36 AM EDT Gender Identity Male 02/08/2022 10:36 AM EDT Sexual Orientation Straight 02/08/2022 10 :36 AM EDT documented as of this encounter Progress Notes * Kari Delgadillo - 01/14/2025 9:45 AM EDT CHW Kari Delgadillo, placed outbound call to patient in regards to offer services. CHW introducing herself from [facility] CM Department with CHW's name, department and direct contact number requesting call back. Will re-attempt to contact within 5 days. and address not confirmed. documented in this encounter Plan of Treatment Not on file documented as of this encounter Visit Diagnoses Not on filedocumented in this encounter Care Teams Airways Control Specialist Relationship Specialty Start Date End Date Gerry Henao RN [address] [place] [id number] Registered Nurse Family Medicine 12/14/24 Kari Delgadillo 12/14/24 documented as of this encounter
--- OUTSIDE RECORDS SUMMARY | 2025-01-16 03:52 | XMS_ITS | Encounter Summary ---
Author Organization [employer] Address [address] [facility] [address] [place] [address] Care Team Providers Care Medical Billing Representative Name Role Phone Gerry Henao RN Unavailable [phone] Kari Delgadillo Unavailable Encounter Details Date Type Department Care Team (Latest Contact Info) Description 01/11/2025 Travel Social History Tobacco Use Types Packs/Day Years [...] AM EDT documented as of this encounter Plan of Treatment Not on file documented as of this encounter Visit Diagnoses Not on filedocumented in this encounter Care Teams Medical Billing Representative Relationship Specialty Start Date End Date Gerry Henao RN [address] [place] [address] Registered Nurse Family Medicine 12/14/24 Kari Delgadillo 12/14/24 documented as of this encounter
--- OUTSIDE RECORDS SUMMARY | 2025-01-16 03:52 | XMS_ITS | Clinical Summary ---
Author Organization [facility] Address [address] [address] Care Team Providers Care Brand Executive Name Role Phone Unavailable Primary Care Provider Unavailabl e Medications OLANZapine (ZyPREXA) 10 MG tablet TAKE ONE TABLET AT BEDTIME 1 Active omeprazole (PriLOSEC) [address] capsule TAKE 1 CAP ONCE A DAY FOR GERD 1 Active gabapentin (NEURONTIN) 300 MG capsule TAKE TWO CAPSULES BY MOUTH THREE TIMES DAILY. 1 Active Lantus 100 UNIT/ML injection INJECT 30 UNITS SUBCUTANEOUSLY AT BEDTIME 1 Active atorvastatin (LIPITOR) 20 MG tablet Take 20 mg by mouth 1 (one) time each day 1 Active buPROPion (WELLBUTRIN) 100 MG tablet TAKE 3 TABS ONCE A DAY FOR MOOD 1 Active buPROPion XL (WELLBUTRIN XL) 150 MG 24 hr tablet Take 150 mg by mouth 1 (one) time each day 1 Active nitrofurantoin , macrocrystal-m onohydrate, (MACROBID) 100 MG capsule TAKE 1 CAP TWICE A DAY FOR UTI 1 Active SM Nicotine 21 MG/24HR APPLY 1 PATCH TOPICALLY TO THE SKIN DAILY IN THE MORNING THEN REMOVE AT BEDTIME DIRECTED DO NOT SMOKE WHILE USING PATCH 1 Active Narcan 4 MG/0.1ML liquid FOR SUSPECTED OPIOID OVERDOSE. SPRAY 0.1mL IN ONE NOSTRIL. REPEAT IN ALTERNATE NOSTRIL EVERY 2-3 MINUTES IF NEEDED. SEEK MEDICAL ATTENTION I 1 Active metFORMIN (GLUCOPHAGE) 1000 MG tablet TAKE ONE TABLET TWICE DAILY WITH MEALS 1 Active lisinopril (PRINIVIL,ZEST RIL) 20 MG tablet Take 20 mg by mouth 1 (one) time each day 1 Active TRUEplus Insulin Syringe 31G X 08/24 1 ML misc USE FOUR DAILY 1 Active hydrOXYzine (VISTARIL) 50 MG capsule TAKE 1 CAPSULE BY MOUTH TWICE A DAY FOR ANXIETY 1 Active FREESTYLE LITE test strip TEST BLOOD SUGAR FOUR TIMES DAILY 1 Active glipiZIDE (GLUCOTROL) 10 MG tablet TAKE 1 TAB ONCE A DAY FOR DIABETES MELLITUS 2 1 Active docusate sodium (COLACE) 100 MG capsule TAKE ONE CAPSULE BY MOUTH TWICE DAILY NEEDED FOR CONSTIPATION. 1 Active chlorproMAZINE (THORAZINE) 200 MG tablet Take 200 mg by mouth at bed time 1 Active chlorproMAZINE (THORAZINE) 100 MG tablet TAKE 3 TABLETS BY MOUTH IN THE MORNING 1 Active buPROPion (WELLBUTRIN) 75 MG tablet TAKE 2 TABLETS BY MOUTH EVERY DAY FOR MOOD 1 Active Suboxone 8-2 MG per SL film DISSOLVE 2 FILMS UNDER THE TONGUE EVERY DAY. PLACE 1 STRIP UNDER EACH SIDE OF TONGUE 1 Active ProAir HFA 108 (90 Base) MCG/ACT inhaler INHALE TWO PUFFS EVERY 4 TO 6 HOURS NEEDED SHORTNESS OF BREATH 1 Active traZODone (DESYREL) 100 MG tablet Take 100 mg by mouth at bed time 1 Active tamsulosin (FLOMAX) 0.4 MG 24 hr capsule TAKE ONE CAPSULE BY MOUTH AT BEDTIME. 1 Active venlafaxine XR (EFFEXOR-XR) 150 MG 24 hr capsule TAKE 1 CAP ONCE A DAY FOR DEPRESSION 1 Active triamterene-hy droCHLOROthiaz angelina (DYAZIDE) 37.5-25 MG per capsule TAKE 1 CAP ONCE A DAY FOR HYPERTENSION (HOLD FOR SBP&LT 90,HR&LT 55) 1 Active tiZANidine (ZANAFLEX) 4 MG tablet TAKE 1 TABLET TWICE A DAY FOR MUSCLE SPASM 1 Active simvastatin (ZOCOR) 20 MG tablet Take 20 mg by mouth at bed time 1 Active SM ClearLax 17 GM/SCOOP powder STIR 17GM INTO 8 OUNCES OF WATER, OR JUICE, AND DRINK DAILY NEEDED / DIRECTED Active Active Problems Problem Noted Date Diagnosed Date Gastroesophageal reflux disease 07/14/2020 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 Social History Tobacco Use Types Packs/Day Years Used Date Smoking Tobacco: Never Assessed Sex and Gender Information Value Date Recorded Sex Assigned at Not on file Legal Sex Male 8:54 AM EDT Gender Identity Not on file Sexual Orientation Not on file Plan of Treatment Health Maintenance Due Date Last Done Comments Hepatitis B Vaccine (1 of 3 - 19+ 3-dose series) 1996 Influenza Vaccine (#1) 2024 Pneumococcal Vaccine: Peds ( 0 to 5 Years) and At-Risk Patients (6 to 49 Years) Aged Out No longer eligible b ased on patient's age to complete this topic Insurance Medicaid [place] Member Subscriber Plan / Payer (Ef fective 2020-Present) Name:Sukhwinder Sanchez Jr. Relation to Subscriber:Self Name:Sukhwinder Sanchez Jr. Payer ID:Not on file Group ID:Not on file Type:Not on file Address: [address] [place]
--- OUTSIDE RECORDS SUMMARY | 2025-01-16 03:52 | XMS_ITS | Encounter Summary ---
Author Organization [facility] Address [address] [place] [address] Care Team Providers Care Senior Hr Business Partner Name Role Phone Ref, Has No Pcp Or Primary Care Provider Unavail able Encounter Details Date Type Department Care Team (Late st Contact Info) Description 12/21/[address] [facility] Emergency Department [address] [place] [address] Janelle Malone RN Social History Tobacco Use Types Packs/Day Years Used Date Smoking Tobacco: Never Assessed Sex and Gender Information Value Date Recorded Sex Assigned at Male 01/15/2024 2:28 PM EDT Legal Sex Male 11:24 AM EDT Gender Identity Not on file Sexual Orientation Not on file documented as of this encounter ED Notes * Janelle Malone RN - 12/21/2020 6:52 PM EDT incidetnal finding of testicular mass discussed with pt while in ER and note on pts printed d/c AVS Janelle Malone RN 12/21/201852 documented in this encounter Plan of Treatment Not on file documented as of this encounter Visit Diagnoses Not on filedocumented in this encounter Additional Health Concerns Infection Onset Date Last Indicated Resolved Time COVID-19 - Confirmed infection 01/15/2024 01/15/2024 02/14/2024 10:32 PM EST documented as of this encounter Care Teams Senior Hr Business Partner Relationship Specialty Start Date End Date Ref, Has No Pcp Or DO NOT EDIT THIS RECORD VIA PROVIDER ON THE FLY PCP - General Gymnastics Coach Or Instructor 01/15/24 documented as of this encounter
--- OUTSIDE RECORDS SUMMARY | 2025-01-16 03:52 | XMS_ITS | Clinical Summary ---
Author Organization [employer] Address [address] [facility] [address] [place] [address] Care Team Providers Care Press Officer Name Role Phone Gerry Henao RN Unavailable [phone] Kari Delgadillo Unavailable Allergies Active Allergy Reactions Criticality Noted Date Comments Buprenorphine 06/03/2022 Levofloxacin Rash Low 12/05/2020 Medications * This document contains information received from the source organization and may not represent a complete record from that organization. Suboxone 8-[address] 2 Film under the tongue Once per day. 3 Active buPROPion XL (Wellbutrin XL) 150 MG 24 hr tablet Take 150 mg by mouth in the morning. 2 Active amLODIPine (Norvasc) 2.5 MG tablet Take 2.5 mg by mouth in the morning. 3 Active gabapentin (Neurontin) 400 MG capsule Take 1 capsule by mouth in the morning and 1 capsule at noon and 1 capsule in the evening. 3 Active hydrOXYzine pamoate (Vistaril) 50 MG capsule TAKE 1 CAPSULE BY MOUTH EVERY 8 HOURS NEEDED FOR MODERATE/SEVERE ANXIETY 3 Active lidocaine (Lidoderm) 5 % patch APPLY 1 PATCH TO AFFECTED AREA DAILY NEEDED LOWER EXTREMITY NEUROPATHY FOR UP TO 12 HOURS DAILY 3 Active cyclobenzaprine (Flexeril) 10 MG tablet Take 1 tablet by mouth if needed in the morning and at bedtime (lower back pain). 5 Active prazosin (Minipress) 1 MG capsule Take 1 capsule by mouth at bedtime. For nightmares 5 Active QUEtiapine (SEROquel) 200 MG tablet Take 1 tablet by mouth at bedtime. Active gabapentin (Neurontin) 100 MG capsule Take 1 capsule by mouth 3 times daily. With the 400 mg caps 5 Active lisinopril 20 MG tablet Take 1 tablet (20 mg) by mouth Once per day. 90 tablet 5 Active Active Problems Patient Care Coordination No te Formatting of this note migh t be different from the original. C3/CM Elly Horn RN Problem Noted Date Diagnosed Date Dental caries 10/06/2022 Periodontal disease 10/06/2022 Hypertensive disorder 06/03/2022 Obesity (BMI 30.0-34.9) 06/03/2022 Type 2 diabetes mellitus 06/03/2022 Viral hepatitis C 06/03/2022 Hypertension due to endocrine disorder Gastroesophageal reflux disease 07/14/2020 Encounters Date Type Department Care Team Description 01/14/2025 Patient Outreach [address] [address] Kari Delgadillo Care Coordination ([facility]3 [facility] Kari Delgadillo telephone call outreach) 01/11/2025 Patient Outreach [address] [address] Chris Mendoza Recovery Supports 01/11/2025 Travel 01/04/2025 Patient Outreach [address] [address] Elie Kari Care Coordination (C3 CM-[facility] Kari Delgadillo telephone call outreach) 12/28/2024 Patient Outreach [address] [address] Elie Kari Care Coordination ([facility]3 CM-W Kari Delgadillo telephone call outreach) 12/14/2024 Patient Outreach [address] [address] Elie Kari Care Coordination (C3 CM-[facility] Kari Delgadillo chart review/) 12/14/2024 Patient Outreach [address] [address] Gerry Henao, RN Care Coordination (C3- chart review) 12/14/2024 Patient Outreach [facility] [address] [place] [address] Ashley Onofre RN 12/12/2024 Patient Outreach [facility] ([facility] Department [address] [place] [address] Karyn Viera, ELECTRO MECHANICAL DESIGNER 12/08/2024 Orders Only [address] [phone] Jessica Howell CHW 12/07/2024 Patient Outreach [facility] Department [address] [place] [address] AlcarazLeydi sauerzy 12/04/2024 Patient Outreach [facility] Department [address] [place] [address] Alcaraz, Carmen 12/04/2024 Patient Outreach [facility] Department [address] [place] [address] Alcaraz, Carmen 12/03/2024 Telephone [facility] [address] [place] [address] Marlene Yap MD No Show 11/29/2024 Refill [facility] [address] [place] [address] Sapna Crawford, AndreD 11/27/2024 Patient Outreach [facility] Department [address] [place] [address] Karyn Viera, ELECTRO MECHANICAL DESIGNER 11/27/2024 Patient Outreach [facility] ([facility] Department [address] [place] [address] Alcaraz, Carmen 11/27/2024 Patient Outreach [facility] ([facility] Department [address] [place] [address] Alcaraz, Carmen 11/23/2024 Patient Outreach [facility] Department [address] [place] [address] Carmen Alcaraz 11/23/2024 Patient Outreach [facility] [address] [place] [address] Marlene Yap MD Transition Of Care (Tcm) (HDF- scheduled with Carmen (SW from C3)) 11/23/2024 Patient Outreach [facility] () Department [address] [place] [address] Carmen Alcaraz 11/23/2024 Patient Outreach [facility] [address] [place] [address] Ashley Onofre, BARBARA Care Coordination ([facility]) 11/23/2024 Patient Outreach [facility] (C3) Department [address] [place] [address] Carmen Alcaraz 11/23/2024 Patient Outreach [facility] () Department [address] [place] [address] Carmen Alcaraz 11/23/2024 Patient Outreach [facility] () Department [address] [place] [address] Carmen Alcaraz 11/23/2024 Patient Outreach [facility] () Department [address] [place] [address] Karyn Viera LICSW 11/16/2024 Patient Outreach [facility] [address] [place] [address] Leigh White, BARBARA 11/14/2024 Patient Outreach [facility] () Department [address] [place] [address] Dennis Gillis 11/13/2024 Patient Outreach [facility] [address] [place] [address] eLigh White, RN 11/12/2024 Patient Outreach [facility] [address] [place] [address] Leigh White, RN 10/26/2024 Patient Outreach [facility] [address] [place] [address] Leigh White RN 10/16/2024 Patient Outreach [facility] [address] [place] [phone] Rafat Narvaez MD Care Coordination (CM/CHW outreach) from Last 3 Months Immunizations Immunization Administration Dates Next Due Hep A, Adult 11/07/2018 HepB-CpG 10/23/2021,09/12/2018 Influenza injectable quadrivalent preservative f ree 06/07/2020,02/05/2015 Kirk SARS-CoV-2 Vaccination 10/29/2020 Moderna Covid-19 Vaccine 12+ 03/11/2021 TD (adult), 2 Lf tetanus tox oid, preservative free, adsorbed 08/16/2016 Td (adult) 08/16/2016 Tdap 06/29/2021,10/19/2020 Social History Tobacco Use Types Packs/Day Years Used Date Smoking Tobacco: Former Cigarettes 0.3 0.5 Passive Smoke Exposure: Past Smokeless Tobacco: Current Tobacco Cessation:Ready to Q uit: Not Asked; Counseling Given: No Alcohol Use Standard Drinks/Week Comments Defer 0 (1 standard drink = 0.6 oz pur e alcohol) Sex and Gender Information Value Date Recorded Sex Assigned at Male 02/08/2022 10:36 AM EDT Legal Sex Male 10:36 AM EDT Gender Identity Male 02/08/2022 10:36 AM EDT Sexual Orientation Straight 02/08/2022 10 :36 AM EDT Last Filed Vital Signs Vital Sign Reading Time Taken Comments Blood Pressure 157/98 02/26/2021 12:11 AM EST Pulse 91 02/26/2021 12:11 AM EST Temperature - - Respiratory Rate - - Oxygen Saturation - - Inhaled Oxygen Concentration - - Weight 106 kg (233 lb) 05/03/2019 12:01 AM EST Height 180.3 cm (5' 11 ) 05/03/2019 12:01 AM EST Body Mass Index 32.5 05/03/2019 12:01 AM EST Plan of Treatment Health Maintenance Due Date Last Done Comments CT Colonography 1977 Colonoscopy 1977 Colorectal Cancer Screening 1977 Dental Oral Exam 1977 Dental Prophylaxis 1977 Dental X-Ray: Bitewings 1977 Dental X-Ray: Full Mouth 1977 Depression Screening 1977 FIT DNA/Cologuard 1977 FIT 1977 FOBT 1977 Lipid Panel 1977 SDOH Screening 1977 Sigmoidoscopy 1977 Disability Screening 1977 Diabetes: Foot Exam 1987 Eye Exam 1987 Alcohol/Substance Use Screening 1989 Family Planning (PISQ) 1992 Pneumococcal Vaccine: Pediatrics (0 to 5 Years) and At-Risk Patients (6 to 49) Years (1 of 2 - PCV) 1996 Diabetes: Hemoglobin A1C 10/19/2021 07/20/2021 Diabetes: Urine Protein Screening 07/20/2022 07/20/2021 Tobacco Screening 10/07/2023 10/06/2022 COVID-19 Vaccine ( - season) 2024 02/27/2022, 03/11/2021, 10/29/2020 Influenza Vaccine (#1) 2024 , 02/23/2024, 06/07/2020, Additional history exists Zoster Vaccines (1 of 2) 2027 DTaP/Tdap/Td Vaccines (4 - Td or Tdap) 05/04/2033 05/04/2023, 06/29/2021, 10/19/2020, Additional history exists RSV Patients and Patients Aged 60 years or older (1 - 1-dose 75+ series) 2052 HIV Screening Completed 07/20/2021, 09/05/2018 Hepatitis B Vaccines Completed 10/23/2021, 09/13/19 19 Hepatitis A Vaccines Completed 03/21/2024, 11/08/19 19 HIB Vaccines Aged Out No longer eligi ble based on patient's age to complete this topic HPV Vaccines Aged Out No longer eligi ble based on patient's age to complete this topic IPV Vaccines Aged Out No longer eligi ble based on patient's age to complete this topic Meningococcal B Vaccine Aged Out No l onger eligible based on patient's age to complete this topic Meningococcal Vaccine Aged Out No sailaja tracee eligible based on patient's age to complete this topic RSV under 20 months Aged Out No longe r eligible based on patient's age to complete this topic Rotavirus Vaccines Aged Out No longer eligible based on patient's age to complete this topic Procedures Procedure Name Priority Date/Time Associated Diagnosis Comments ALBUMIN, RANDOM URINE W/CREATININE Routine 07/20/2021 10:23 AM EDT HEMOGLOBIN A1C Routine 07/20/2021 9:51 AM EDT HIV 1/2 ANTIGEN/ANTIBODY, FOURTH GENERATION W/RFL Routine 07/20/2021 9:49 AM EDT from Last 3 Months or Most Recently Relevant to Health Maintenance Results * ALBUMIN, RANDOM URINE W/CREATININE (07/20/2021 10:23 AM EDT) Microalbumin Urine 2.5 See Note: mg/dL [facility] Comment: Reference Range: Reference Range Not established Microalb/Creat Ratio 28 <30 mcg/mg creat [facility] Comment: The ADA defines abnormalities in albumin excretion as follows: Albuminuria Category Result (mcg/mg creatinine) Normal to Mildly increased <30 Moderately increased 30-299 Severely increased > OR = 300 The ADA recommends that at least two of three specimens collected within a 3-6 month period be abnormal before considering a patient to be within a diagnostic category. Creatinine, Urine 90 20 - 320 mg/dL [facility] 07/20/2021 10:2 3 AM EDT us Kevin Vance MD LAB URINE ORDERABLES Final Resul t [facility] [address] [place] [address] * (ABNORMAL) HEMOGLOBIN A1c (07/20/2021 9:51 AM EDT) Hemoglobin A1c 5.9(H) <5.7 % of total Hgb [facility] Comment: For someone without known diabetes, a hemoglobin A1c value between 5.7% and 6.4% is consistent with prediabetes and should be confirmed with a follow-up test. For someone with known diabetes, a value <7% indicates that their diabetes is well controlled. A1c targets should be individualized based on duration of diabetes, age, comorbid conditions, and other considerations. This assay result is consistent with an increased risk of diabetes. Currently, no consensus exists regarding use of hemoglobin A1c for diagnosis of diabetes for children. 07/20/2021 9:51 AM EDT Kevin Vance MD LAB BLOOD ORDERABLES Final Resul t Performing Organization Address [facility]/State/ZIP Co de Phone Number [facility] [address] * HIV 1/2 ANTIGEN/ANTIBODY,FOURTH GENERATION W/RFL (07/20/2021 9:49 AM EDT) HIV-1/2 ANTIGEN AND ANTIBODIES, 4TH GENERATION W/ REFLEX NON-REACT ILDEFONSO NON-REACT ILDEFONSO [facility] Comment: HIV-1 antigen and HIV-1/HIV-2 antibodies were not detected. There is no laboratory evidence of HIV infection. PLEASE NOTE: This information has been disclosed to you from records whose confidentiality may be protected by state law. If your state requires such protection, then the state law prohibits you from making any further disclosure of the information without the specific written consent of the person to whom it pertains, or as otherwise permitted by law. A general authorization for the release of medical or other information is NOT sufficient for this purpose. For additional information please refer to http://[email or web address].com/faq/TTR962 (This link is being provided for informational/ educational purposes only.) The performance of this assay has not been clinically validated in patients less than 2 years old. 07/20/2021 9:49 AM EDT Kevin Vance MD LAB BLOOD ORDERABLES Final Resul t Performing Organization Address [facility]/ZIP Co de Phone Number [facility] [address] from Last 3 Months or Most Recently Relevant to Health Maintenance Insurance [employer] [place] Care Teams Press Officer Relationship Specialty Start Date End Date Gerry Henao RN [address] [place] [address] Registered Nurse Family Medicine 12/14/24 Kari Delgadillo 12/14/24
--- OUTSIDE RECORDS SUMMARY | 2025-01-16 03:52 | XMS_ITS | Clinical Summary ---
Author Organization [facility] Address [address] [place] [address] Care Team Providers Care Inspector Outside Production Name Role Phone Ref, Has No Pcp Or Primary Care Provider Unavail able Allergies No known active allergies Medications * This document contains information received from the source organization and may not represent a complete record from that organization. multivitamin tablet Take 1 tablet by mouth once a day. 04/13/2021 Active polyethylene glycol 3350 (MIRALAX) powder Take 17 g by mouth daily as needed. 04/13/2021 Active FeroSuL 325 mg (65 mg iron) tablet Take 1 tablet by mouth once a day. 04/01/2021 Active omeprazole (PriLOSEC) 20 mg capsule Take 20 mg by mouth once a day. 04/01/2021 Active sertraline (ZOLOFT) 50 mg tablet Take 50 mg by mouth once a day. 04/01/2021 Active gabapentin (NEURONTIN) 400 mg capsule Take 1 capsule (400 mg total) by mouth every 8 hours. 270 capsule 01/25/2024 Active amLODIPine (NORVASC) 5 mg tablet Take 1 tablet (5 mg total) by mouth once a day. 30 tablet 3 01/26/2024 Active cloNIDine (CATAPRES) 0.1 mg tablet Take 1 tablet (0.1 mg total) by mouth 2 times a day. 60 tablet 2 01/25/2024 Active losartan (COZAAR) 50 mg tablet Take 1 tablet (50 mg total) by mouth once a day. 90 tablet 01/26/2024 Active metoprolol succinate XL (TOPROL XL) 25 mg tablet Take 1 tablet (25 mg total) by mouth 2 (two) times a day. 60 tablet 2 01/25/2024 Active multivitamin tablet Take 1 tablet by mouth once a day. 30 tablet 01/26/2024 Active QUEtiapine (SEROquel) 200 mg tablet Take 1 tablet (200 mg total) by mouth once a day. 30 tablet 2 01/26/2024 Active QUEtiapine (SEROquel) 400 mg tablet Take 1 tablet (400 mg total) by mouth nightly. 30 tablet 2 01/25/2024 Active tamsulosin (FLOMAX) 0.4 mg capsule Take 1 capsule (0.4 mg total) by mouth once a day. 30 capsule 2 01/26/2024 Active Active Problems Problem Noted Date Diagnosed Date Schizoaffective disorder 01/23/2024 Assessment & Plan (01/23/2024 12:02 PM EDT): H/o schizoaffective disorder and MDD Being managed by [facility]uce See section on suicidal ideation Patient will complete 10 days of isolation for COVID 19 on 01/23 after which placement to psych Neuropathy 01/19/2024 Assessment & Plan (01/23/2024 12:03 PM EDT): Patient reports a hx of neuropathy, was on gabapentin Continue gabapentin 400 mg TID Opioid withdrawal 01/17/2024 Assessment & Plan (01/23/2024 11:52 AM EDT): On admission pt has history of opioid use disorder. States last use 5 months ago. COWS score 5 in ED encounter, given Suboxone. Patient was seen by Addiction Psych social work who recommended dual dx admit with psych for SI/S12 placement. Plan: Soboxone 4 mg sublingual 3 times a day Appreciate addiction psych consult-->initiate Suboxone Assessment & Plan (01/17/2024 3:05 AM EDT): Patient has history of opioid use disorder. States last use 5 months ago. Appears drowsy, yawning and hyperactive bowel sound. COWS score 5 in ED encounter, given Suboxone. - COWS q4h - Soboxone 4 mg sublingual prn for COWS > 5 - methocarbamol 500 mg q6h prn for muscle spasms - dicyclomine 20 mg q6h prn for abdominal pain or diarrhea - telemetry Suicidal ideation 01/16/2024 Assessment & Plan (01/23/2024 12:00 PM EDT): MDD with psychotic features VS schizoaffective disorder Presented with SI. Seen by psych and placed on section 12. Plan Appreciate psych recommendations Continue Clonidine, 0.1 mg, oral, BID Continue Quetiapine, 200 mg, oral, Daily, 400 mg oral Nightly Continue Sertraline, 50 mg, oral, Daily Continue buprenorphine-naloxone, 4 mg 3 times a day per addiction psych Close observation Assessment & Plan (01/23/2024 11:57 AM EDT): >>ASSESSMENT AND PLAN FOR SUICIDAL IDEATION WRITTEN ON 01/17/2024 3:06 AM BY DAVID LUGO MD PHD Patient has history of schizoaffective disorder, was on risperidone in the past, denies taking it now. - psyche consult when more alert - seroquel 200 mg daily and 400 mg nightly Assessment & Plan (01/23/2024 11:57 AM EDT): >>ASSESSMENT AND PLAN FOR SUICIDAL IDEATION WRITTEN ON 01/19/2024 10:55 AM BY RESHMA OCASIO Patient has history of schizoaffective disorder. Now presenting with positive SI. Seen by psychiatry. Sukhwinder is appropriate for section 12 prong 1, and will benefit from inpatient psychiatric care. Preliminary Diagnosis: MDD with psychotic features vs schizoaffective disorder Opioid use disorder, severe Cocaine use disorder Marijuana use disorder Alcohol use disorder TSH within normal limits, labs are pending Recommendations: Medications: Continue Clonidine, 0.1 mg, oral, BID Continue Quetiapine, 200 mg, oral, Daily, 400 mg oral Nightly Continue Sertraline, 50 mg, oral, Daily Continue buprenorphine-naloxone, 4 mg 3 times a day per addiction psych Further workup: B12, Folate, TSH with reflex T4, EKG >>ASSESSMENT AND PLAN FOR SUICIDAL IDEATION WRITTEN ON 01/23/2024 11:56 AM BY RADHA MONTALVO MD MDD with psychotic features vs schizoaffective disorder Presenting with SI. Seen by psych and placed on section 12. B12, Folate, TSH with reflex T4, EKG - normal Plan Continue Clonidine, 0.1 mg, oral, BID Continue Quetiapine, 200 mg, oral, Daily, 400 mg oral Nightly Continue Sertraline, 50 mg, oral, Daily Continue buprenorphine-naloxone, 4 mg 3 times a day per addiction psych Assessment & Plan (01/17/2024 3:08 AM EDT): Patient on section 12 for suicidal ideation, thought of overdose. - close observation 1:1 - psyche evaluation Essential (primary) hypertension 07/21/2021 Assessment & Plan (01/19/2024 10:51 AM EDT): Home medications: Amlodipine 5mg daily, Clonidine 0.1mg daily, Losartan 50mg daily, Metoprolol 25mg daily Plan: -Continue with home medications C/w amlodipine 5 mg daily Clonidine 0.1 mg twice daily C/w losartan 50 mg daily C/w metoprolol 25 mg twice daily Assessment & Plan (01/17/2024 3:07 AM EDT): C/w amlodipine 5 mg daily Clonidine 0.1 mg twice daily C/w losartan 50 mg daily C/w metoprolol 25 mg twice daily Episode of recurrent major depressive disorder 0 07/03/2021 Resolved Problems Problem Noted Date Diagnosed Date Resolved Date COVID 01/17/2024 01/25/2024 Assessment & Plan (01/24/2024 3:45 PM EDT): Incidental finding of covid positive, saturating well on room air. Has occasional cough. - contact, airborne isolation per protocol -Incidental positive on 01/14. -10 days of isolation will end on 01/24 Assessment & Plan (01/17/2024 3:09 AM EDT): Incidental finding of covid positive, denies cough, no fever or desaturation. - contact, airborne isolation per protocol Type 2 diabetes mellitus wit hout complication, without long-term current use of insulin 01/17/2024 01/25/2024 Assessment & Plan (01/23/2024 12:00 PM EDT): Patient has history of T2DM, not on any medications, previously on metformin. A1c here 5.8. insulin lispro sliding scale Low carb diet Assessment & Plan (01/17/2024 3:14 AM EDT): Patient has history of T2DM, not on any medications, previously on metformin. Unclear recent A1c. -repeat A1c -FSG glucose Ac/HC -insulin lispro sliding scale Immunizations Immunization Administration Dates Next Due Covid-19 Vaccine, J&J, Vector-nr, Rs-ad26, PF, 0 .5 mL 10/29/2020 Social History Tobacco Use Types Packs/Day Years Used Date Smoking Tobacco: Every Day Smokeless Tobacco: Never Alcohol Use Standard Drinks/Week Comments Yes 0 (1 standard drink = 0.6 oz pur e alcohol) [facility] Utilities Answer Date Recorded In the past 12 months has e [place], gas, oil, or water [employer] threatened to shut off services in your home? Patient declined 01/20/2024 Hunger Vital Sign Answer Date Recorded Within the past 12 months, y ou worried that your food would run out before you got the money to buy more. Patient declined Within the past 12 months, t he food you bought just didn't last and you didn't have money to get more. Patient declined 02/2024 Transportation Answer Date Recorded In the past 12 months, has l ack of reliable transportation kept you from medical appointments, meetings, work or from getting things needed for daily living? NOANSWER 01/20/2024 Housing Answer Date Recorded Housing Risk Low Not on file 01/20/2024 Housing Risk Medium Not on file 01/20/2024 Housing Risk High 1 01/20/2024 What is your living situation today? LSNOSTEADY 01/20/2024 Sex and Gender Information Value Date Recorded Sex Assigned at Male 01/15/2024 2:28 PM EDT Legal Sex Male 11:24 AM EDT Gender Identity Not on file Sexual Orientation Not on file Last Filed Vital Signs Vital Sign Reading Time Taken Comments Blood Pressure 167/88 11/13/2024 9:32 AM EDT Pulse 69 11/13/2024 9:32 AM EDT Temperature 36.5 C (97.7 F) 11/13/2024 9:32 AM EDT Respiratory Rate 18 11/13/2024 9:32 AM EDT Oxygen Saturation 98% 11/13/2024 9:32 AM EDT Inhaled Oxygen Concentration - - Weight 73.9 kg (162 lb 14.7 oz) 01/20/2024 9:00 AM EDT Height 182.9 cm (6') 01/15/2024 11:55 AM EDT Body Mass Index 22.1 01/15/2024 11:55 AM EDT Plan of Treatment Health Maintenance Due Date Last Done Comments Cologuard 1977 Colonoscopy 1977 Hepatitis C Screening 1977 Sigmoidoscopy 1977 Ophthalmology Exam 1987 Urine Microalbumin 1987 Pneumococcal Vaccine: Pediat roxi (0-5 Years) and At-Risk Patients (6-50 Years) (1 of 2 - PCV) 1996 Colon Cancer Screening 07/20/2022 FOBT / Fit Test 07/20/2022 07/20/2021 Alcohol/Substance Use Screening 04/11/2024 Depression Screening and Follow-Up 04/11/2024 Social Drivers of Health Trang ual Screening 04/11/2024 Hemoglobin A1C 07/17/2024 01/17/2024, 12/14/2018 COVID-19 Vaccine (4 - 2024-2 6 season) 2024 02/27/2022, 03/11/2021, 10/29/2020 Influenza Vaccine (#1) 2024 , 02/23/2024, 06/07/2020, Additional history exists Basic Metabolic Panel 11/11/2025 11/11/2024 , 01/22/2024, 01/17/2024, Additional history exists DTaP,Tdap,and Td Vaccines (4 - Td or Tdap) 05/04/2033 05/04/2023, 06/29/2021, 10/19/2020, Additional history exists RSV Vaccine (60+ years old a nd patients) (1 - 1-dose 75+ series) 2052 HIV Screening Completed 07/20/2021, 07/20/2021 Hepatitis B Vaccines Completed 10/23/2021, 09/13/19 19 Procedures * Due to [place] state law, this organization might not be sharing negative HIV tests. Procedure Name Priority Date/Time Associated Diagnosis Comments POCT GLUCOSE Routine 11/11/2024 5:08 PM EDT POCT GLUCOSE Routine 11/11/2024 1:33 PM EDT TROPONIN T HIGH SENSITIVITY STAT 11/11/2024 1:14 AM EDT XR CHEST 1 VW STAT 11/11/2024 12:39 AM EDT ECG 12-LEAD STAT 11/11/2024 12:25 AM EDT TROPONIN T HIGH SENSITIVITY STAT 11/11/2024 12:05 AM EDT BASIC METABOLIC PANEL STAT 11/11/2024 12:05 AM EDT CBC AUTO DIFFERENTIAL STAT 11/11/2024 12:05 AM EDT HEART & VASCULAR - SCANNED 11/10/2024 HEMOGLOBIN A1C Routine 01/17/2024 6:29 AM EDT from Last 3 Months or Most Recently Relevant to Health Maintenance Results * Due to [place] state law, this organization might not be sharing negative HIV tests. * (ABNORMAL) POCT Glucose, interfaced (11/11/2024 5:08 PM EDT) Only the most recent of2 resultswithin the time period is included. [facility] Signature Glucose, POCT 116(H) 70 - 99 mg/dL 11/11/2024 5:09 PM EDT [facility] Comment: The leather flesher has not determined the efficacy of this test in Critically ill patients. [facility] defines Critically ill patients for the purpose of blood glucose monitoring (BGM) by glucometer, as patients meeting one or more of the following criteria: Hypotension- non-ICU patients (systolic blood pressure Less than 90 mmHg) due to shock Hypotension -ICU patients (Mean Arterial Pressure (MAP) <60 mmHg or systolic blood pressure < 90 mmHg due to shock Patients receiving Vasopressors (phenylephrine, vasopressin or norepinephrine) Anasarca In all locations, BGM test results should not be relied upon in the above situations, unless these results confirmed with lab-based glucose values. Blood 11/11/2024 5:08 PM EDT 11/11/2024 5:09 PM EDT us Demetrius Padgett MD LAB POCT ORDERABLES - DEVICE Final Result [facility] [address] [place] [address], [place] * Repeat Troponin #1 (11/11/2024 1:14 AM EDT) Only the most recent of2 resultswithin the time period is included. Troponin T High Sensitivity 11 <=21 ng/L 11/11/2024 1:59 AM EDT [facility] Comment: Pw-[id number] level of 52 ng/L or higher at 0-hour at presentation is recommended by the ESC 0/1-hour algorithm for identifying patients at high risk for ruling in acute myocardial infarction (AMI) in the appropriate clinical context. Repeat troponin testing 1-3 hours after the initial sample may be helpful in assessing for ongoing myocardial injury. Troponin elevations can be seen in several other non-infarct conditions, and the change (delta) should be evaluated in line with the 4th Kimberly Definition of AMI. Troponin baseline and serial elevation for a significant delta should be interpreted with clinical presentation, history, signs and symptoms, ECG, and biomarker concentrations. For inpatient setting: Value <12ng/L is considered negative for all genders. 0-1hr: A delta change of <3 will be considered negative/flat if chest pain onset >3 hours 0-3hr: A delta change of <7 will be considered negative/flat Blood Structure of peripheral vein / Unknown Venipuncture / Unknown 11/11/2024 1:14 AM EDT 11/11/2024 1:24 AM EDT us Ken Serna MD LAB BLOOD ORDERABLES Final R esult [facility] [address] [place] [address], [place] * XR Chest 1 vw (11/11/2024 12:39 AM EDT) Anatomical Region Laterality Modality Body Computed Radiogr aphy 11/11/2024 1:14 AM EDT Impressions 11/11/2024 1:15 AM EDT No acute pulmonary process. If this radiology report contains a blank impression section, it is an incomplete radiology report. Please contact the interpreting radiologist or applicable radiology division as soon as possible to obtain the completed interpretation. Workstation ID: [id number] Narrative 11/11/2024 1:15 AM EDT COMPARISON: 05/09/2021. FINDINGS: The lungs are clear without focal consolidation, pleural effusion or pneumothorax. The cardiac silhouette and mediastinum are unremarkable. The pulmonary vasculature is within normal limits. There are no focal osseus lesions. There is no pneumomediastinum or subdiaphragmatic free air. Resulting Agency Comment [id number] Procedure Note Neftaly Barfield MD - 11/11/2024 COMPARISON: 05/09/2021. FINDINGS: The lungs are clear without focal consolidation, pleural effusion orpneumothorax. The cardiac silhouette and mediastinum are unremarkable. Thepulmonary vasculature is within normal limits. There are no focal osseuslesions. There is no pneumomediastinum or subdiaphragmatic free air. IMPRESSION: No acute pulmonary process. If this radiology report contains a blank impression section, it is anincomplete radiology report. Please contact the interpreting radiologistor applicable radiology division as soon as possible to obtain thecompleted interpretation. Workstation ID: [id number] us Ken Serna MD IMG XR PROCEDURES Final Resu lt * ECG 12 lead (11/11/2024 12:25 AM EDT) Ventricular Rate EKG 66 BPM MUSE EKG Atrial Rate 66 BPM MUSE EKG OK Interval 172 ms MUSE EKG QRS Interval 150 ms MUSE EKG QT Interval 520 ms MUSE EKG QTC Interval 545 ms MUSE EKG P [facility] [place] 35 degrees MUSE EKG R [facility] [place] 28 degrees MUSE EKG T Wave [facility] 71 degrees MUSE EKG 11/11/2024 12:2 5 AM EDT 11/20/2024 10:42 AM EDT Impressions MUSE EKG - 11/20/2024 10:43 AM EDT NORMAL SINUS RHYTHM RIGHT BUNDLE BRANCH BLOCK ABNORMAL ECG WHEN COMPARED WITH ECG OF 18-Jan-2024 18:03, QT HAS LENGTHENED Confirmed by Jeison Giron ([id number]) on 11/20/2024 10:42:57 AM Narrative Procedure Note Jeison Giron MD - 11/20/2024 IMPRESSION: NORMAL SINUS RHYTHM RIGHT BUNDLE BRANCH BLOCK ABNORMAL ECG WHEN COMPARED WITH ECG OF 18-Jan-2024 18:03, QT HAS LENGTHENED Confirmed by Jeison Giron ([id number]) on 11/20/2024 10:42:57 AM us Ken Serna MD ECG ORDERABLES Final Result [facility] EKG * (ABNORMAL) CBC Auto Differential (11/11/2024 12:05 AM EDT) WBC 7.2 3.8 - 10.8 10*3/uL 11/11/2024 12:16 AM EDT [facility] RBC 4.06(L) 4.20 - 5.80 10*6/uL 11/11/2024 12:16 AM EDT [facility] Hemoglobin 12.4(L) 13.2 - 17.1 g/dL 11/11/2024 12:16 AM EDT [facility] Hematocrit 35.5(L) 38.5 - 50.0 % 11/11/2024 12:16 AM EDT [facility] MCV 87.4 80.0 - 100.0 fL 11/11/2024 12:16 AM EDT [facility] MCH 30.5 27.0 - 33.0 pg 11/11/2024 12:16 AM EDT [facility] MCHC 34.9 32.0 - 36.0 g/dL 11/11/2024 12:16 AM EDT [facility] RDW 13.8 11.0 - 15.0 % 11/11/2024 12:16 AM EDT [facility] Platelets 335 140 - 400 10*3/uL 11/11/2024 12:16 AM EDT [facility] MPV 9.4 7.5 - 12.5 fL 11/11/2024 12:16 AM EDT [facility] Neutrophil % 70.3 % 11/11/2024 12:16 AM EDT [facility] Immature Grans % 0.1 0.0 - 0.9 % 11/11/2024 12:16 AM EDT [facility] Lymphocyte % 17.1 % 11/11/2024 12:16 AM EDT [facility] Monocyte % 8.8 % 11/11/2024 12:16 AM EDT [facility] Eosinophil % 2.9 % 11/11/2024 12:16 AM EDT [facility] Basophil % 0.8 % 11/11/2024 12:16 AM EDT [facility] Neutrophil # 5.04 1.50 - 7.80 10*3/uL 11/11/2024 12:16 AM EDT [facility] Immature Grans # <0.03 <=0.03 10*3/uL 11/11/2024 12:16 AM EDT [facility] Lymphocyte # 1.20 0.85 - 3.90 10*3/uL 11/11/2024 12:16 AM EDT [facility] Monocyte # 0.60 0.20 - 0.95 10*3/uL 11/11/2024 12:16 AM EDT [facility] Eosinophil # 0.20 0.02 - 0.50 10*3/uL 11/11/2024 12:16 AM EDT [facility] Basophil # 0.10 0.00 - 0.20 10*3/uL 11/11/2024 12:16 AM EDT [facility] nRBC % 0.0 /100 WBCs 11/11/2024 12:16 AM EDT [facility] [employer] [facility] nRBC # <0.01 <0.01 10*3/uL 11/11/2024 12:16 AM EDT [facility] [employer] [facility] Blood Structure of peripheral vein / Unknown Venipuncture / Unknown 11/11/2024 12:05 AM EDT 11/11/2024 12:09 AM EDT us Ken Serna MD LAB BLOOD ORDERABLES Final R esult [facility] [address] [place] [id number], * (ABNORMAL) BMP - Basic Metabolic Panel (11/11/2024 12:05 AM EDT) NA 135 135 - 145 mmol/L 11/11/2024 1:02 AM EDT [facility] K 3.6 3.5 - 5.3 mmol/L 11/11/2024 1:02 AM EDT [facility] Cl 97(L) 98 - 107 mmol/L 11/11/2024 1:02 AM EDT [facility] CO2 21(L) 22 - 32 mmol/L 11/11/2024 1:02 AM EDT [facility] BUN 12 7 - 23 mg/dL 11/11/2024 1:02 AM EDT [facility] Creatinine 0.68 0.60 - 1.30 mg/dL 11/11/2024 1:02 AM EDT [facility] Glucose 99 65 - 99 mg/dL 11/11/2024 1:02 AM EDT [facility] Calcium 9.4 8.6 - 10.5 mg/dL 11/11/2024 1:02 AM EDT [facility] Anion Gap 17(H) 5 - 15 11/11/2024 1:02 AM EDT [facility] eGFR >90 >=60 mL/min/1. 73m2 11/11/2024 1:02 AM EDT [facility] Comment:The estimated glomer ular filtration rate (eGFR) is calculated using a new formula developed by the NKF-ASN task force to eliminate race-based correction factors. The new formula uses serum/plasma creatinine, age, and gender to determine eGFR. A value below 60mls/min might indicate kidney disease and will be flagged. For additional information, see Parks et al, Am J Kidney Dis. 2021;79(2):268- 288, A Unifying Approach for GFR estimation: Recommendations of the NKF-ASN Task Force on Reassessing the Inclusion of Race in Diagnosing Kidney Disease . Blood Structure of peripheral vein / Unknown Venipuncture / Unknown 11/11/2024 12:05 AM EDT 11/11/2024 12:09 AM EDT us Ken Serna MD LAB BLOOD ORDERABLES Final R esult [facility] [address] [place] [address], * HEART & VASCULAR - SCANNED (11/10/2024) Anatomical Region Laterality Modality Other us Onbase Scan Latoya SCANNED PROCEDURES Final Resu lt * (ABNORMAL) Hemoglobin A1c (01/17/2024 6:29 AM EDT) Hemoglobin A1C 5.8(H) <5.7 % of total Hgb 01/17/2024 11:15 AM EDT [facility] Comment: For someone without known diabetes, a [...] A1c for diagnosis of diabetes for children. eAG (MG/DL) 120 mg/dL 01/17/2024 11:15 AM EDT [employer] [employer] eAG (MMOL/L) 6.6 mmol/L 01/17/2024 11:15 AM EDT [facility] Blood Structure of peripheral vein / Unknown Venipuncture / Unknown 01/17/2024 6:29 AM EDT 01/17/2024 6:37 AM EDT [facility] 01/17/2024 11:15 AM EDT [facility] Received Date: David Lugo MD PhD LAB BLOOD ORDERABLES Final R esult [facility] [address], [place] [address], [employer] [facility] [address], [place] [address], from Last 3 Months or Most Recently Relevant to Health Maintenance Insurance [facility] Advance Directives * Full Code (Latest Code Status on File) Date Activated Date Inactivated Comments 01/16/2024 11:50 PM 01/25/2024 8:01 PM Care Teams Inspector Outside Production Relationship Specialty Start Date End Date Ref, Has No Pcp Or DO NOT EDIT THIS RECORD VIA PROVIDER ON THE FLY PCP - General Curb Setter 01/15/24
--- OUTSIDE RECORDS SUMMARY | 2025-01-16 03:52 | XMS_ITS | Encounter Summary ---
Author Organization [employer] Address [address] [place] [address] Care Team Providers Care Electromechanical Technologist Name Role Phone Gerry Henao RN Unavailable [phone] Kari Delgadillo Unavailable Reason for Visit * Reason Comments Recovery Supports Encounter Details Date Type Department Care Team (Late st Contact Info) Description 01/11/2025 Patient Outreach [facility] [address] [place] [address] Chris Mendoza Recovery Supports Social History Tobacco Use Types Packs/Day Years [...] as of this encounter Progress Notes * Chris Mendoza - 01/11/2025 3:36 PM EDT I met with Sukhwinder today. Setting: in person at [facility] Recovery Wellness Goals worked on: Social Stability Action taken/next steps: Attended alcohol and drug free activity Additional comments: Chris Mendoza documented in this encounter Plan of Treatment Not on file documented as of this encounter Visit Diagnoses Not on filedocumented in this encounter Care Teams Electromechanical Technologist Relationship Specialty Start Date End Date Gerry Henao, RN [address] [place] [id number] Registered Nurse Family Medicine 12/14/24 Kari Delgadillo 12/14/24 documented as of this encounter
--- OUTSIDE RECORDS SUMMARY | 2025-01-16 03:52 | XMS_ITS | Encounter Summary ---
Author Organization [facility] Address [address] [place] [address] Phone Care Team Providers Care Milk Receiver Name Role Phone Unavailable Primary Care Provider Unavailabl e Encounter Details Date Type Department Care Team (Late st Contact Info) Description 07/14/2020 Orders Only [facility] [address] [place] [address] Provider, Dona, Social History Tobacco [...] Associated Diagnosis Comments EXT RESULT ENTRY Routine 06/27/2020 documented in this encounter Results * EXT RESULT ENTRY (06/27/2020) us Historical Provider LAB BLOOD ORDERABLES Allyssa l Result documented in this encounter Visit Diagnoses Not on filedocumented in this encounter
--- OUTSIDE RECORDS SUMMARY | 2025-01-16 03:52 | XMS_ITS ---
Author Organization [facility] Address [address] [place] [address] [address] [place] [address] Care Team Providers Care Canvas Worker Apprentice Name Role Phone Gerry Henao RN Unavailable [phone] Kari Delgadillo Unavailable [facility]W Complex Status:Outreach In Progress (Enrolling) Start date:12/14/2024 Enrollment reason:ADT Feed Overview ADT- Pt admitted to [facility] under observation on 12/13/24. Case Team Name Relationship Phone Kari Delgadillo(Responsible Staff) Continued Care and Services Coordination
[2025-01-16 03:59] LABS: Hematocrit 41.8 % (42.0-52.0); Hemoglobin 14.7 g/dl (14.0-18.0); Imm Gran Abs Auto 0.03 X10*3/uL (0.00-0.03); Imm Gran Pct Auto 0.3 % (0.0-0.4); Lymphocytes Absolute Auto 1.6 X10*3/uL (1.2-4.9); MANUAL DIFF FLAG NO; Mean Corpuscular HGB Conc 35.2 g/dl (31.0-36.0); Mean Corpuscular Hemoglobin 29.7 pg (27.0-33.0); Mean Corpuscular Volume 84.4 fL (80.0-98.0); NRBC Abs Auto 0.000 X10*3/uL (0.0-0.012); NRBC Pct Auto 0.0 /100WBC (0.0-0.2); Platelet Count 309 X10*3/uL (160-400); Red Blood Count 4.95 X10*6/uL (4.60-5.80); White Blood Count 9.6 X10*3/uL (4.8-10.8)
[2025-01-16 04:16] LABS: Acetaminophen LAB 8 mcg/mL (<30); Alanine Aminotransferase 23 U/L (0-40); Albumin Level 4.3 g/dL (3.5-5.0); Alkaline Phosphatase 59 U/L (39-117); Anion Gap 16 (12-20); Aspartate Amino Transferase 34 U/L (5-37); Blood Urea Nitrogen 31 mg/dL (9-16); Calcium 9.1 mg/dL (8.4-10.2); Carbon Dioxide 25 mmol/L (22-29); Chloride 97 mmol/L (96-108); Creatinine Clr Calc Pharmacy 57.0; Estimated Glomerular Filt Rate 49; Magnesium 2.4 mg/dL (1.6-2.6); Potassium 2.9 mmol/L (3.3-5.1); Salicylate < 5.0 mg/dL (15-30); Sodium 135 mmol/L (135-145); Total Protein 7.9 g/dL (6.5-8.0)
[2025-01-16 04:22] LABS: Appearance Urine Cloudy; Glucose Urine UA Negative (Negative); PH 5.0 (5.0-9.0); Specific Gravity - Urine >= 1.030 (1.005-1.025); UMIC TRIGGER UACC YES
[2025-01-16 04:31] LABS: Cannabinoid Screen Urine POSITIVE (Not Detect)
[2025-01-16 04:37] LABS: UACC Culture Trigger YES
--- NOTE | 2025-01-16 04:51 | PC.NURSE ---
Pt comes from triage. Labs obtained, urine collected. Pt changed over in pod by Talya Feeder Associate and Security Keaton. Rec'd notification from provider that pt has ANEESH and K in low, requiring IVF and K IV. Notified nurse discharge planner. Pt moved to 8H in Main ED
[2025-01-16] MEDS: Potassium Chloride ER 20 MEQ TAB.ER.PRT 40 MEQ PO (05:02)
--- NOTE | 2025-01-16 05:11 | ED.GENADULT ---
HPI - General Adult General Chief complaint: Psychiatric Symptoms Stated complaint: crisis Time Seen by Provider: 01/16/25 03:54 Source: patient Limitations: no limitations History of Present Illness ED Provider: Priya Urban PA-C HPI narrative: 49M with past medical history of polysubstance use, major depressive disorder, T2DM presents for acute mental crisis. Patient reports suicidal ideation for the last 2 days. Denies having a plan. Reports last alcoholic drink was at 1am this morning, had one pint of hard liquor. Drinks 1.5 pints daily for several years. History of withdrawal but denies withdrawal seizures or delirium tremens. Endorses daily fentanyl/heroin and cocaine use. Denies benzodiazepine use. Patient is currently homeless. Related Data Home Medications ?Medication ?Instructions ?Recorded ?Confirmed hydroxyzine pamoate 50 mg capsule 50 mg PO Q8H PRN Anxiety 07/16/22 01/16/25 Proscar 15 mg PO BID 01/16/25 01/16/25 Seroquel 200 mg PO BEDTIME 01/16/25 01/16/25 Suboxone 1 film PO TID 01/16/25 01/16/25 amlodipine 5 mg PO DAILY 01/16/25 01/16/25 buspirone 10 mg tablet 15 mg PO TID PRN anxiety 01/16/25 01/16/25 prazosin 1 mg PO BEDTIME 01/16/25 01/16/25 trazodone 150 mg PO BEDTIME 01/16/25 01/16/25 trazodone 100 mg tablet 150 mg PO BEDTIME 01/16/25 01/16/25 Previous Rx's ?Medication ?Instructions ?Recorded acetaminophen 325 mg tablet 650 mg (2 x 325 mg) PO Q6H PRN 07/27/22 Headache/Pain Mild Scale (1-3) #0 tabs bupropion HCl 150 mg 24 hr tablet, 450 mg (3 x 150 mg) PO DAILY 30 07/27/22 extended release days #90 tabs gabapentin 400 mg capsule 800 mg (2 x 400 mg) PO QID 30 days 07/27/22 #240 caps lisinopril 20 mg tablet 20 mg PO DAILY 30 days #30 tabs 07/27/22 metformin 500 mg tablet 500 mg PO BIDWM 30 days #60 tabs 07/27/22 Allergies Allergy/AdvReac Type Severity Reaction Status Date / Time levofloxacin (From Levaquin) Allergy Intermediate rash Verified 01/16/25 03:28 Review of Systems Review of Systems: Yes all other systems are reviewed and are negative Constitutional: Constitutional: Denies fatigue and Denies fever(s) Cardiovascular: Cardiovascular: Denies chest pain and Denies dyspnea Respiratory: Respiratory: Denies dyspnea Gastrointestinal: Gastrointestinal: Denies abdominal pain Endocrine: Endocrine: Denies fatigue PMFSH Past Medical History Attestation statement: The following information was validated with the patient. Medical History (Updated 01/17/25 @ 15:54 by Bonnie Crawford NP) MDD (major depressive disorder), recurrent episode, severe Polysubstance abuse Urinary tract infection Polysubstance use disorder Recurrent UTI Opiate dependence Drug-induced psychotic disorder Marijuana use Alcohol use Tobacco use disorder Opioid use disorder Alcohol use Urinary hesitancy Alcohol use disorder, severe, dependence Stimulant use disorder Diverticulitis BPH (benign prostatic hyperplasia) (~10/11/20) DM II (diabetes mellitus, type II), controlled Chronic pain Neuropathy High cholesterol (~10/11/20) HTN (hypertension) Opioid use disorder Social History Social History Household Members: None Household Members Other:: Homeless Housing: Homeless Do you presently have visiting nurse or other home services: No Alcohol intake: current Alcohol intake frequency: 3 or more drinks per day Alcohol type: beer Comment: 1:1 sitter Patient Tobacco Use Status: Current everyday Tobacco user Tobacco use type: Cigarette Cigarette Packs Per Day: 1 Cigarettes Per Day: 20.0 Years Smoked: 20+ Smoked in Last 30 Days: Yes e-Cigarette/Vaping Use: Currently Using Patient Interested in Nicotine Replacement: No Patient Given Instructions on How to Stop Smoking: Yes Date Education Initiated: 01/16/25 Second Hand Smoke Exposure: No Use of substances other than those prescribed or required for medical reasons: Yes Substance Use Type: Crack/Cocaine, Marijuana and Opiates Substance Use Frequency: Chronic Longstanding Currently Displaying Signs/Symptoms of Drug Intoxication Withdrawal: No Advance Directives: No Do you have thoughts of harming others: None Do you have a plan to hurt others: No Plan Recently lost weight without trying: Yes How much weight loss: 34pounds or more Eating poorly because of decreased appetite: Yes Nutrition screen score: 7 Nutrition Risks: No Nutritional Risk Poor oral hygiene: No service: No Current occupational status: unemployed Sexual orientation: Straight/Heterosexual Physical Exam ED Vital Signs: Vital Signs - 24 hr 01/16/25 03:27 Temperature 97.9 F Pulse Rate 86 Respiratory Rate 16 Blood Pressure 149/99 H Pulse Oximetry 96 Oxygen Delivery Method Room Air BMI result Body Mass Index 20.3 Const Other: Alert Orientation/consciousness: patient oriented x3 Resp Effort & Inspection: normal respiratory effort Cardio Other: Normal peripheral perfusion Skin Other: Warm dry no rash Neuro General: patient oriented x3, gait normal, no focal motor deficits and CN's II-XI intact bilaterally Psych Other: Cooperative Course Course Course Narrative: I Priya Urban PA-C personally obtain the history, performed the exam and assessed the patient. Dayana BOWMAN helped to formulate the documentation Reevaluation(s) Reevaluation #1: Time: 06:09 Date: 01/16/25 Provider: RESHMA Lu Patient in physician observation for psychiatric evaluation.? No acute events reported overnight. No current complaints. VS stable.? Patient is in bed search status/pending CARE team evaluation. Will continue to monitor. Time: 15:37 Reevaluation #2: Time: 15:37 Date: 01/16/25 Provider: Jem Mendoza DO Physician observation ended Patient to be admitted as inpatient to psychiatr Medications Administered Generic Name Dose Route Start Last Admin Trade Name Freq PRN Reason Stop Dose Admin Amlodipine Besylate 5 mg 01/17/25 09:00 01/17/25 08:42 Amlodipine Besylate 5 Mg Tablet PO 5 mg DAILY SHABBIR Administration Gabapentin 400 mg 01/17/25 16:05 01/17/25 21:26 Gabapentin 400 Mg Capsule PO 400 mg TID SHABBIR Administration Insulin Human Lispro 0 unit 01/16/25 21:00 01/17/25 21:38 Insulin Lispro 100 Unit/Ml 3 Ml Vial SUBCUT Not Given QIDACHS [facility] Protocol Lisinopril 20 mg 01/17/25 09:00 01/17/25 08:42 Lisinopril 20 Mg Tablet PO 20 mg DAILY SHABBIR Administration Protocol Metformin HCl 500 mg 01/16/25 18:11 01/17/25 16:41 Metformin Hcl 500 Mg Tablet PO 500 mg BIDWM SHABBIR Administration Nicotine 21 mg 01/17/25 09:00 01/17/25 08:43 Nicotine 21 Mg Patch.Td24 TRANSDERMA Not Given DAILY SHABBIR Prazosin HCl 1 mg 01/16/25 21:00 01/17/25 21:25 Prazosin Hcl 1 Mg Capsule PO 1 mg BEDTIME SHABBIR Administration Quetiapine Fumarate 200 mg 01/16/25 21:00 01/17/25 21:25 Quetiapine Fumarate 200 Mg Tablet PO 200 mg BEDTIME SHABBIR Administration Trazodone HCl 150 mg 01/16/25 21:00 01/17/25 21:25 Trazodone Hcl 50 Mg Tablet PO 150 mg BEDTIME SHABBIR Administration Discontinued Medications Generic Name Dose Route Start Last Admin Trade Name Freq PRN Reason Stop Dose Admin Sodium Chloride 1,000 mls @ 999 mls/hr 01/16/25 04:45 01/16/25 07:34 Ns IV 01/16/25 05:45 Infused .Q1H1M SHABBIR Infusion Sodium Chloride 1,000 mls @ 999 mls/hr 01/16/25 06:00 01/16/25 07:16 Ns IV 01/16/25 07:00 Infused .Q1H1M SHABBIR Infusion Potassium Chloride 10 meq in 100 mls @ 100 mls/hr 01/16/25 05:53 01/16/25 07:16 Potassium Chloride/H20 IV 01/16/25 06:52 Infused ONCE ONE Infusion Lorazepam 1 mg 01/16/25 19:01 01/17/25 08:48 Lorazepam 1 Mg Tablet PO 1 mg Q2H PRN Administration CIWA 8-11 Potassium Chloride 40 meq 01/16/25 04:44 01/16/25 05:02 Potassium Chloride Er 20 Meq Tab.Er.Prt PO 01/16/25 04:45 40 meq ONCE ONE Administration Thiamine HCl 100 mg 01/17/25 09:00 01/17/25 08:42 Thiamine Hcl 100 Mg Tablet PO 100 mg DAILY SHABBIR Administration Medical Decision Making Medical Decision Making MDM Narrative: 49M with past medical history of polysubstance use, major depressive disorder, T2DM presents for acute mental crisis. Patient reports suicidal ideation for the last 2 days. Denies having a plan. Reports last alcoholic drink was at 1am this morning, had one pint of hard liquor. Drinks 1.5 pints daily for several years. History of withdrawal but denies withdrawal seizures or delirium tremens. Endorses daily fentanyl/heroin and cocaine use. Denies benzodiazepine use. Patient is currently homeless. I've considered the following diagnoses: decompensated psychiatric illness, alcohol intoxication, polysubstance use, SI, HI Plan: Screening labs including serum ethanol and drug screen were obtained, the patient was found to have low potassium, with the an ANEESH, we will be giving fluid, replenishing the potassium, he will then be referred to the care team. We will repeat labs once his treatment is complete. Potassium 2.9, replete. Care team referral. I've interpreted the following tests: Potassium 2.9, creatinine 1.54, not anemic no leukocytosis, no additional electrolyte abnormalities noted, ethanol less than 10 UA, utox positive for buprenorphine, fentanyl, cocaine, marijuana. Differential Diagnosis Differential Diagnoses: The differential diagnosis associated with the presentation includes See medical decision-making Admission/Observation Consideration of admission/observation: Escalation of care including admission/observation considered May require admit Consult Healthcare Provider Management of the patient was discussed with: Behavioral Health Provider Lab Data MDM Lab Attestation statement: I reviewed the patient's lab results. 01/16/25 03:53 01/16/25 08:20 Labs: Lab Results 01/16/25 01/16/25 01/16/25 Range/Units 03:53 04:10 08:20 WBC 9.6 (4.8-10.8) X10*3/uL RBC 4.95 (4.60-5.80) X10*6/uL Hgb 14.7 (14.0-18.0) g/dl Hct 41.8 L (42.0-52.0) % MCV 84.4 (80.0-98.0) fL MCH 29.7 (27.0-33.0) pg MCHC 35.2 (31.0-36.0) g/dl RDW 12.8 (11.0-16.0) % Plt Count 309 (160-400) X10*3/uL MPV 9.6 (9.4-12.4) fL Immature Gran % (Auto) 0.3 (0.0-0.4) % Neut % (Auto) 76.0 H (45-73) % Lymph % (Auto) 16.5 L (20-40) % [place] % (Auto) 6.5 (2-11) % Eos % (Auto) 0.4 (0-4) % Baso % (Auto) 0.3 (0-2) % Lymph # (Auto) 1.6 (1.2-4.9) X10*3/uL [place] # (Auto) 0.6 (0.1-1.2) X10*3/uL Eos # (Auto) 0.0 (0.0-0.4) X10*3/uL Baso # (Auto) 0.0 (0.0-0.2) X10*3/uL Abs Immat Gran (auto) 0.03 (0.00-0.03) X10*3/uL Absolute Neuts (auto) 7.3 (2.0-8.3) x10*3/uL Absolute Nucleated RBC 0.000 (0.0-0.012) X10*3/uL Nucleated RBC % (auto) 0.0 (0.0-0.2) /100WBC Sodium 135 135 (135-145) mmol/L Potassium 2.9 L* 3.5 D (3.3-5.1) mmol/L Chloride 97 100 (96-108) mmol/L Carbon Dioxide 25 25 (22-29) mmol/L Anion Gap 16 14 (12-20) BUN 31 H 25 H (9-16) mg/dL Creatinine 1.54 H 1.08 (0.5-1.4) mg/dL Estim Creat Clear Calc 57.0 81.3 Estimated GFR 49 > 60 Random Glucose 125 H 124 H (60-115) mg/dL Calcium 9.1 8.4 D (8.4-10.2) mg/dL Magnesium 2.4 (1.6-2.6) mg/dL Total Bilirubin 0.4 (0.0-1.0) mg/dL AST 34 (5-37) U/L ALT 23 (0-40) U/L Alkaline Phosphatase 59 (39-117) U/L Total Protein 7.9 (6.5-8.0) g/dL Albumin 4.3 (3.5-5.0) g/dL Urine Color Dark Yellow Urine Appearance Cloudy Urine pH 5.0 (5.0-9.0) Ur Specific [place] >= 1.030 H (1.005-1.025) Urine Protein 100 (2+) H (Neg-Trace) mg/dL Urine Glucose (UA) Negative (Negative) mg/dL Urine Ketones Trace (Negative) mg/dL Urine Blood Negative (Negative) Urine Nitrite Negative (Negative) Ur Leukocyte Esterase Small (1+) H (Negative) Urine RBC 0-2 (0-2) /HPF Urine WBC 21-50 H (0-5) /HPF Ur Squamous Epith Cells 6-10 (0-2) /HPF Urine Bacteria Trace (None Seen) Hyaline Casts >20 (0-2) /LPF Salicylates < 5.0 L (15-30) mg/dL Urine Opiates Screen Not Detected (Not Detect) Ur Buprenorphine Scrn Positive H (Not Detect) ng/mL Ur Oxycodone Screen Not Detected (Not Detect) ng/mL Urine Methadone Screen Not Detected (Not Detect) ng/mL Urine Fentanyl Screen POSITIVE H (Not Detect) Acetaminophen 8 (<30) mcg/mL Ur Barbiturates Screen Not Detected (Not Detect) Ur Phencyclidine Scrn Not Detected (Not Detect) Ur Amphetamines Screen Not Detected (Not Detect) U Benzodiazepines Scrn Not Detected (Not Detect) Urine Cocaine Screen POSITIVE H (Not Detect) U Marijuana (THC) Screen POSITIVE H (Not Detect) Ethyl Alcohol < 10 mg/dL 01/16/25 Range/Units 11:29 WBC (4.8-10.8) X10*3/uL RBC (4.60-5.80) X10*6/uL Hgb (14.0-18.0) g/dl Hct (42.0-52.0) % MCV (80.0-98.0) fL MCH (27.0-33.0) pg MCHC (31.0-36.0) g/dl RDW (11.0-16.0) % Plt Count (160-400) X10*3/uL MPV (9.4-12.4) fL Immature Gran % (Auto) (0.0-0.4) % Neut % (Auto) (45-73) % Lymph % (Auto) (20-40) % [place] % (Auto) (2-11) % Eos % (Auto) (0-4) % Baso % (Auto) (0-2) % Lymph # (Auto) (1.2-4.9) X10*3/uL [place] # (Auto) (0.1-1.2) X10*3/uL Eos # (Auto) (0.0-0.4) X10*3/uL Baso # (Auto) (0.0-0.2) X10*3/uL Abs Immat Gran (auto) (0.00-0.03) X10*3/uL Absolute Neuts (auto) (2.0-8.3) x10*3/uL Absolute Nucleated RBC (0.0-0.012) X10*3/uL Nucleated RBC % (auto) (0.0-0.2) /100WBC Sodium (135-145) mmol/L Potassium (3.3-5.1) mmol/L Chloride (96-108) mmol/L Carbon Dioxide (22-29) mmol/L Anion Gap (12-20) BUN (9-16) mg/dL Creatinine (0.5-1.4) mg/dL Estim Creat Clear Calc Estimated GFR Random Glucose (60-115) mg/dL Calcium (8.4-10.2) mg/dL Magnesium (1.6-2.6) mg/dL Total Bilirubin (0.0-1.0) mg/dL AST (5-37) U/L ALT (0-40) U/L Alkaline Phosphatase (39-117) U/L Total Protein (6.5-8.0) g/dL Albumin (3.5-5.0) g/dL Urine Color Urine Appearance Urine pH (5.0-9.0) Ur Specific [place] (1.005-1.025) Urine Protein (Neg-Trace) mg/dL Urine Glucose (UA) (Negative) mg/dL Urine Ketones (Negative) mg/dL Urine Blood (Negative) Urine Nitrite (Negative) Ur Leukocyte Esterase (Negative) Urine RBC (0-2) /HPF Urine WBC (0-5) /HPF Ur Squamous Epith Cells (0-2) /HPF Urine Bacteria (None Seen) Hyaline Casts (0-2) /LPF Salicylates (15-30) mg/dL Urine Opiates Screen (Not Detect) Ur Buprenorphine Scrn (Not Detect) ng/mL Ur Oxycodone Screen (Not Detect) ng/mL Urine Methadone Screen (Not Detect) ng/mL Urine Fentanyl Screen (Not Detect) Acetaminophen (<30) mcg/mL Ur Barbiturates Screen (Not Detect) Ur Phencyclidine Scrn (Not Detect) Ur Amphetamines Screen (Not Detect) U Benzodiazepines Scrn (Not Detect) Urine Cocaine Screen (Not Detect) U Marijuana (THC) Screen (Not Detect) Ethyl Alcohol < 10 mg/dL Discharge Plan Discharge Clinical Impression: Acute hypokalemia, Dehydration, Suicidal ideation Patient Disposition: Admitted As Inpatient Interventions: Admission Worksheet (ED) Last Done: 01/16/25 17:58 Discharge Date/Time: 01/16/25 18:14
[2025-01-16] MEDS: Potassium Chloride/H20 10 MEQ/100 ML PIGGYBACK 100 MEQ IV (06:05)
[2025-01-16 08:44] LABS: Anion Gap 14 (12-20); Blood Urea Nitrogen 25 mg/dL (9-16); Calcium 8.4 mg/dL (8.4-10.2); Carbon Dioxide 25 mmol/L (22-29); Chloride 100 mmol/L (96-108); Creatinine Clr Calc Pharmacy 81.3; Estimated Glomerular Filt Rate > 60; Potassium 3.5 mmol/L (3.3-5.1); Sodium 135 mmol/L (135-145)
--- NOTE | 2025-01-16 13:12 | ECG_ITS ---
Test Reason : CHECK PROLONGED QT Blood Pressure : */* mmHG Vent. Rate : 73 BPM Atrial Rate : 73 BPM P-R Int : 170 ms QRS Dur : 148 ms QT Int : 452 ms P-R-T Axes : 27 16 63 degrees QTcB Int : 497 ms Normal sinus rhythm Right bundle branch block Cannot rule out Inferior infarct , age undetermined T wave abnormality, consider lateral ischemia Abnormal ECG When compared with ECG of 22-Sep-2022 15:40, No significant change was found Referred By: Priya Urban Electronically Signed By: DAMIAN ROSAS MD
[2025-01-16 17:40] VITALS: BP 165/98; PULSE 70; RESP 16; TEMP 36.5; O2SAT 99
[2025-01-16 18:35] VITALS: BP 167/97; PULSE 74; RESP 16; TEMP 36.8; O2SAT 98
[2025-01-16 18:37] VITALS: BMI 17.8
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
[2025-01-16 20:00] VITALS: BP 101/64; PULSE 83; RESP 16; TEMP 37.2; O2SAT 96
[2025-01-16 20:32] LABS: Glucose, Whole Blood 113 mg/dL (60-115)
[2025-01-16 21:15] VITALS: BP 125/72
[2025-01-17 07:45] VITALS: BP 144/85; PULSE 83; RESP 14; TEMP 37.5; O2SAT 98
--- NOTE | 2025-01-17 08:24 | HO.PM.IMCN ---
History of Present Illness Data of Consult Service Date: 01/17/25 Primary Care Provider: Gary Cash, [facility]- HPI Reason for consult: Medical consult 49-year-old male with a past medical history of polysubstance abuse, EtOH use disorder, BPH, history of cocaine induced [place] major depressive disorder, hypertension and type 2 diabetes presents to the ED with suicidal ideation for the last 2 days. In the ED he was found to have hypokalemia with an acute kidney injury, he received fluids and potassium replacement. No anemia, no leukocytosis no additional electrolyte imbalances noted, alcohol level less than 10, U tox positive for buprenorphine, fentanyl, cocaine and marijuana. On exam denies any shortness of breath, chest pain, headaches, abdominal pain concerning symptoms. He denies any medical concerns. Review of Systems Review of Systems: He denies any shortness of breath, abdominal pain, headaches, muscle aches, chest pain, , abdominal pain. [facility] Medical History Polysubstance abuse Urinary tract infection Polysubstance use disorder Recurrent UTI Opiate dependence MDD (major depressive disorder), recurrent episode, severe Drug-induced psychotic disorder Marijuana use Alcohol use Tobacco use disorder Opioid use disorder Alcohol use Urinary hesitancy Alcohol use disorder, severe, dependence Stimulant use disorder Diverticulitis BPH (benign prostatic hyperplasia) (~10/11/20) DM II (diabetes mellitus, type II), controlled Chronic pain Neuropathy High cholesterol (~10/11/20) HTN (hypertension) Opioid use disorder Social History Household Members: None Household Members Other:: Homeless Housing: Homeless Do you presently have visiting nurse or other home services: No Alcohol intake: current Alcohol intake frequency: 3 or more drinks per day Alcohol type: beer Comment: 1:1 sitter Patient Tobacco Use Status: Current everyday Tobacco user Tobacco use type: Cigarette Cigarette Packs Per Day: 1 Cigarettes Per Day: 20.0 Years Smoked: 20+ Smoked in Last 30 Days: Yes e-Cigarette/Vaping Use: Currently Using Patient Interested in Nicotine Replacement: No Patient Given Instructions on How to Stop Smoking: Yes Date Education Initiated: 01/16/25 Second Hand Smoke Exposure: No Use of substances other than those prescribed or required for medical reasons: Yes Substance Use Type: Crack/Cocaine, Marijuana and Opiates Substance Use Frequency: Chronic Longstanding Currently Displaying Signs/Symptoms of Drug Intoxication Withdrawal: No Advance Directives: No Do you have thoughts of harming others: None Do you have a plan to hurt others: No Plan Recently lost weight without trying: Yes How much weight loss: 34pounds or more Eating poorly because of decreased appetite: Yes Nutrition screen score: 7 Nutrition Risks: No Nutritional Risk Poor oral hygiene: No service: No Current occupational status: unemployed Sexual orientation: Unable to collect Meds Allergies Allergy/AdvReac Type Severity Reaction Status Date / Time levofloxacin (From [facility]) Allergy Intermediate rash Verified 01/16/25 03:28 Active Medications: Current Medications Acetaminophen (Acetaminophen 325 Mg Tablet) 650 mg PO Q6H PRN PRN Reason: Headache/Pain, Scale 1-10 Al Hydroxide/Mg Hydroxide (Magnesium Hydrox/Alum Hydrox 30 Ml Oral.Susp) 30 ml PO Q6H PRN PRN Reason: Heartburn/Nausea Amlodipine Besylate (Amlodipine Besylate 5 Mg Tablet) 5 mg PO DAILY [facility] Buspirone HCl (Buspirone Hcl 5 Mg Tablet) 15 mg PO TID PRN PRN Reason: Anxiety Dextrose (Dextrose 50 % 25 Gm/50 Ml Syringe) 25 gm IVPUSH Q15M PRN; Protocol PRN Reason: per Hypoglycemia Standing Ord. Glucose (Glucose Gel 15 Gm Gel..Gram.) 15 gm PO Q15M PRN; Protocol PRN Reason: per Hypoglycemia Standing Ord. Hydroxyzine HCl (Hydroxyzine Hcl 50 Mg Tablet) 50 mg PO Q8H PRN PRN Reason: Anxiety Insulin Human Lispro (Insulin Lispro 100 Unit/Ml 3 Ml Vial) 0 unit SUBCUT QIDACHS [facility]; Protocol Last Admin: 01/17/25 08:06 Dose: Not Given Lisinopril (Lisinopril 20 Mg Tablet) 20 mg PO DAILY [facility]; Protocol Lorazepam (Lorazepam 1 Mg Tablet) 1 mg PO Q2H PRN PRN Reason: CIWA 8-11 Lorazepam (Lorazepam 1 Mg Tablet) 2 mg PO Q2H PRN PRN Reason: CIWA 12-15 Lorazepam (Lorazepam 1 Mg Tablet) 3 mg PO Q2H PRN PRN Reason: CIWA > 15, and call Magnesium Hydroxide (Milk Of Magnesia 30 Ml Oral.Susp) 30 ml PO DAILY PRN PRN Reason: Constipation Metformin HCl (Metformin Hcl 500 Mg Tablet) 500 mg PO BIDWM [facility] Last Admin: 01/16/25 18:15 Dose: 500 mg Nicotine (Nicotine 21 Mg Patch.Td24) 21 mg TRANSDERMA DAILY [facility] Nicotine Polacrilex (Nicotine Polacrilex 2 Mg Gum) 4 mg BUCCAL Q2H PRN PRN Reason: Nicotine Cravings Prazosin HCl (Prazosin Hcl 1 Mg Capsule) 1 mg PO BEDTIME [facility] Last Admin: 01/16/25 21:15 Dose: 1 mg Quetiapine Fumarate (Quetiapine Fumarate 200 Mg Tablet) 200 mg PO BEDTIME [facility] Last Admin: 01/16/25 21:15 Dose: 200 mg Thiamine HCl (Thiamine Hcl 100 Mg Tablet) 100 mg PO DAILY [facility] Trazodone HCl (Trazodone Hcl 50 Mg Tablet) 150 mg PO BEDTIME [facility] Last Admin: 01/16/25 21:15 Dose: 150 mg Home Medications ?Medication ?Instructions ?Recorded ?Confirmed ?Last Taken ?Type hydroxyzine pamoate 50 mg capsule 50 mg PO Q8H PRN Anxiety 07/16/22 01/16/25 Unknown History Proscar 15 mg PO BID 01/16/25 01/16/25 Unknown History Seroquel 200 mg PO BEDTIME 01/16/25 01/16/25 Unknown History Suboxone 1 film PO TID 01/16/25 01/16/25 Unknown History amlodipine 5 mg PO DAILY 01/16/25 01/16/25 Unknown History buspirone 10 mg tablet 15 mg PO TID PRN anxiety 01/16/25 01/16/25 Unknown History prazosin 1 mg PO BEDTIME 01/16/25 01/16/25 Unknown History trazodone 150 mg PO BEDTIME 01/16/25 01/16/25 Unknown History trazodone 100 mg tablet 150 mg PO BEDTIME 01/16/25 01/16/25 Unknown History Physical Exam Vital Signs and Narrative: Vital Signs: Last Vital Signs Temp 99.5 F 01/17/25 07:45 Pulse 83 01/17/25 07:45 Resp 14 01/17/25 07:45 BP 144/85 H 01/17/25 07:45 Pulse Ox 98 01/17/25 07:45 O2 Del Method Room Air 01/17/25 07:45 BMI result Body Mass Index 17.8 CONST: Alert and oriented when awakened, in NAD. Well nourished HEENT: Normocephalic, atraumatic, MMM, Eyes clear, Neck supple RESP: Lungs clear, RRR even and regular HEART:,RRR, S1, S2. No edema GI:Abdomen Soft NT, ND. + BS times four :Deferred SKIN: Warm dry and intact, no visible lesions or rashes NEURO:CN II-XII Intact bilaterally, Sensation intact. Speech clear PSYCH: Cooperative, sleepy. Easily arousable Results Labs 01/16/25 03:53 01/16/25 08:20 Labs: Laboratory Results - last 24 hr 01/16/25 01/16/25 01/16/25 08:20 11:29 20:27 Anion Gap 14 Estim Creat Clear Calc 81.3 Estimated GFR > 60 POC Glucose 113 Random Glucose 124 H Calcium 8.4 D Ethyl Alcohol < 10 Assessment and Plan (1) DM II (diabetes mellitus, type II), controlled: Status: Acute Plan 49-year-old male with past medical history listed below presented to the ED with suicide ideation. He was medically cleared and now is admitted inpatient level of care for further treatment. Major depressive disorder/polysubstance use Treatment per psychiatric team Hypertension Continue amlodipine and lisinopril Type 2 diabetes Continue metformin A1c pending Thank you for allowing me to participate in the care of this patient. Will follow as needed, please notify medical provider with any changes in condition or concerns.
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
[2025-01-17 12:11] LABS: Glucose, Whole Blood 107 mg/dL (60-115)
[2025-01-17 16:43] LABS: Glucose, Whole Blood 145 mg/dL (60-115)
[2025-01-17 20:52] LABS: Glucose, Whole Blood 120 mg/dL (60-115)
[2025-01-17 21:12] VITALS: BP 169/84; PULSE 86; RESP 16; TEMP 37; O2SAT 96
[2025-01-18 07:47] VITALS: BP 145/88; PULSE 75; RESP 14; TEMP 37.1; O2SAT 96
[2025-01-18 07:49] LABS: Glucose, Whole Blood 90 mg/dL (60-115)
--- NOTE | 2025-01-18 08:34 | P.PNPSI_ITS ---
Subjective Subjective Date of Service: 01/18/25 Reason For Visit: SI Subjective Notes: Conditional Voluntary Interim History: Laying in bed. sleeping most of day. Patient reports feeling same as yesterday ; guarded. Declined to get out of bed to meet with T/W. Encouraged to get out of bed and attend groups. denies SI/HI/VH/AH. Continue tx plan. Medication Compliance: Yes Side effects from medications: No Attending Groups: No Mental Status Exam Mental Status Exam Patient Appearance: Appropriate Patient Orientation: Person, Place, Time and Situation Level of Consciousness: Drowsy Patient Behavior: Guarded and Poor Eye Contact Mood Description: Depressed Affect Description: Flat Ability to Follow Directions: Good Speech Pattern: Mumbled Memory Description: Intact Diagnostics Vital Signs (24Hr): Vital Signs - 24 hr 01/17/25 21:12 01/18/25 07:47 Temperature 98.6 F 98.8 F Pulse Rate 86 75 Respiratory Rate 16 14 Blood Pressure 169/84 H 145/88 H Pulse Oximetry 96 96 Oxygen Delivery Method Room Air Room Air BMI result Body Mass Index 17.8 Labs 01/16/25 03:53 01/16/25 08:20 Labs: Laboratory Results - last 48 hr 01/16/25 01/16/25 01/16/25 08:20 11:29 20:27 Sodium 135 Potassium 3.5 D Chloride 100 Carbon Dioxide 25 Anion Gap 14 BUN 25 H Creatinine 1.08 Estim Creat Clear Calc 81.3 Estimated GFR > 60 POC Glucose 113 Random Glucose 124 H Calcium 8.4 D Ethyl Alcohol < 10 01/17/25 01/17/25 01/17/25 12:01 16:34 20:47 Sodium Potassium Chloride Carbon Dioxide Anion Gap BUN Creatinine Estim Creat Clear Calc Estimated GFR POC Glucose 107 145 H 120 H Random Glucose Calcium Ethyl Alcohol 01/18/25 07:43 Sodium Potassium Chloride Carbon Dioxide Anion Gap BUN Creatinine Estim Creat Clear Calc Estimated GFR POC Glucose 90 Random Glucose Calcium Ethyl Alcohol Medications Medications Current Medications Acetaminophen (Acetaminophen 325 Mg Tablet) 650 mg PO Q6H PRN PRN Reason: Headache/Pain, Scale 1-10 Al Hydroxide/Mg Hydroxide (Magnesium Hydrox/Alum Hydrox 30 Ml Oral.Susp) 30 ml PO Q6H PRN PRN Reason: Heartburn/Nausea Amlodipine Besylate (Amlodipine Besylate 5 Mg Tablet) 5 mg PO DAILY [facility] Last Admin: 01/17/25 08:42 Dose: 5 mg Bupropion HCl (Bupropion Hcl Xl 150 Mg Tab.Er.24h) 150 mg PO DAILY [facility] Buspirone HCl (Buspirone Hcl 5 Mg Tablet) 15 mg PO TID PRN PRN Reason: Anxiety Dextrose (Dextrose 50 % 25 Gm/50 Ml Syringe) 25 gm IVPUSH Q15M PRN; Protocol PRN Reason: per Hypoglycemia Standing Ord. Gabapentin (Gabapentin 400 Mg Capsule) 400 mg PO TID [facility] Last Admin: 01/17/25 21:26 Dose: 400 mg Glucose (Glucose Gel 15 Gm Gel..Gram.) 15 gm PO Q15M PRN; Protocol PRN Reason: per Hypoglycemia Standing Ord. Hydroxyzine HCl (Hydroxyzine Hcl 50 Mg Tablet) 50 mg PO Q8H PRN PRN Reason: Anxiety Insulin Human Lispro (Insulin Lispro 100 Unit/Ml 3 Ml Vial) 0 unit SUBCUT QIDACHS [facility]; Protocol Last Admin: 01/18/25 07:46 Dose: Not Given Lisinopril (Lisinopril 20 Mg Tablet) 20 mg PO DAILY [facility]; Protocol Last Admin: 01/17/25 08:42 Dose: 20 mg Magnesium Hydroxide (Milk Of Magnesia 30 Ml Oral.Susp) 30 ml PO DAILY PRN PRN Reason: Constipation Metformin HCl (Metformin Hcl 500 Mg Tablet) 500 mg PO BIDWM [facility] Last Admin: 01/17/25 16:41 Dose: 500 mg Nicotine (Nicotine 21 Mg Patch.Td24) 21 mg TRANSDERMA DAILY [facility] Last Admin: 01/17/25 08:43 Dose: Not Given Nicotine Polacrilex (Nicotine Polacrilex 2 Mg Gum) 4 mg BUCCAL Q2H PRN PRN Reason: Nicotine Cravings Prazosin HCl (Prazosin Hcl 1 Mg Capsule) 1 mg PO BEDTIME [facility] Last Admin: 01/17/25 21:25 Dose: 1 mg Quetiapine Fumarate (Quetiapine Fumarate 200 Mg Tablet) 200 mg PO BEDTIME [facility] Last Admin: 01/17/25 21:25 Dose: 200 mg Trazodone HCl (Trazodone Hcl 50 Mg Tablet) 150 mg PO BEDTIME [facility] Last Admin: 01/17/25 21:25 Dose: 150 mg Allergies Allergies Allergy/AdvReac Type Severity Reaction Status Date / Time levofloxacin (From Levaquin) Allergy Intermediate rash Verified 01/16/25 03:28 Assessment & Plan Assessment & Plan (1) MDD (major depressive disorder), recurrent episode, severe: Status: Acute Code(s): F33.2 - Major depressive disorder, recurrent severe without psychotic features (2) PTSD (post-traumatic stress disorder): Status: Acute Code(s): F43.10 - Post-traumatic stress disorder, unspecified (3) Cocaine use disorder: Status: Acute Code(s): F14.10 - Cocaine abuse, uncomplicated (4) Opioid use disorder: Status: Acute Code(s): F11.99 - Opioid use, unspecified with unspecified opioid-induced disorder Plan Patient is a 49-year-old male with history of MDD, opiate use disorder and cocaine use disorder who self presented to ER due to suicidal ideation secondary to worsening depression and medication noncompliance. Plan: CV 15 minute safety checks Continue home medications Encourage medication compliance Encourage groups Discharge planning 01/18: Laying in bed. sleeping most of day. Patient reports feeling same as yesterday ; guarded. Declined to get out of bed to meet with T/W. Encouraged to get out of bed and attend groups. denies SI/HI/VH/AH. Continue tx plan. Patient educated on: diagnosis, medication risk/benefits and therapeutic strategies Reason for continued inpatient stay Substantial Risk for: med/psych decompensation Time Spent With Patient Time: Total time managing care of this patient today _15___ minutes.
[2025-01-18] MEDS: buPROPion HCl XL 150 MG TAB.ER.24H PO (08:39)
--- NOTE | 2025-01-18 08:48 | P.PNIM_ITS ---
Subjective Subjective Date of Service: 01/18/25 Interval History: Patient with a positive urine culture greater than 100,000 of E coli. Sensitive to Macrobid. Patient denies any dysuria, hematuria, lower abdominal pain, fever or chills. Exam benign Review of Systems Denies any shortness of breath, chest pain, headaches, dysuria, abdominal pain or discomfort, nausea, vomiting or diarrhea. Denies chills, or fever. Physical Exam 2 Exam: Exam: CONST: Alert and oriented, in NAD. Well nourished HEENT: Normocephalic, atraumatic, MMM RESP: Lungs clear, RRR even and regular HEART:,RRR, S1, S2. No edema GI:Abdomen Soft NT, ND. + BS times four :Deferred SKIN: Warm dry and intact, no visible lesions or rashes NEURO:CN II-XII Intact bilaterally, Sensation intact. Speech clear PSYCH: Normal affect Vital Signs: Vital Signs: Last Vital Signs Temp 98.8 F 01/18/25 07:47 Pulse 75 01/18/25 07:47 Resp 14 01/18/25 07:47 BP 145/88 H 01/18/25 07:47 Pulse Ox 96 01/18/25 07:47 O2 Del Method Room Air 01/18/25 07:47 BMI result Body Mass Index 17.8 Objective Data Active Medications Acetaminophen (Acetaminophen 325 Mg Tablet) 650 mg PO Q6H PRN PRN Reason: Headache/Pain, Scale 1-10 Al Hydroxide/Mg Hydroxide (Magnesium Hydrox/Alum Hydrox 30 Ml Oral.Susp) 30 ml PO Q6H PRN PRN Reason: Heartburn/Nausea Amlodipine Besylate (Amlodipine Besylate 5 Mg Tablet) 5 mg PO DAILY [facility] Last Admin: 01/18/25 08:40 Dose: 5 mg Documented By: SUSHMA Bupropion HCl (Bupropion Hcl Xl 150 Mg Tab.Er.24h) 150 mg PO DAILY [facility] Last Admin: 01/18/25 08:39 Dose: 150 mg Documented By: SUSHMA Buspirone HCl (Buspirone Hcl 5 Mg Tablet) 15 mg PO TID PRN PRN Reason: Anxiety Dextrose (Dextrose 50 % 25 Gm/50 Ml Syringe) 25 gm IVPUSH Q15M PRN; Protocol PRN Reason: per Hypoglycemia Standing Ord. Gabapentin (Gabapentin 400 Mg Capsule) 400 mg PO TID [facility] Last Admin: 01/18/25 08:39 Dose: 400 mg Documented By: SUSHMA Glucose (Glucose Gel 15 Gm Gel..Gram.) 15 gm PO Q15M PRN; Protocol PRN Reason: per Hypoglycemia Standing Ord. Hydroxyzine HCl (Hydroxyzine Hcl 50 Mg Tablet) 50 mg PO Q8H PRN PRN Reason: Anxiety Insulin Human Lispro (Insulin Lispro 100 Unit/Ml 3 Ml Vial) 0 unit SUBCUT QIDACHS [facility]; Protocol Last Admin: 01/18/25 07:46 Dose: Not Given Documented By: SUSHMA Non-Admin Reason: No Insulin Coverage Lisinopril (Lisinopril 20 Mg Tablet) 20 mg PO DAILY [facility]; Protocol Last Admin: 01/18/25 08:40 Dose: 20 mg Documented By: SUSHMA Magnesium Hydroxide (Milk Of Magnesia 30 Ml Oral.Susp) 30 ml PO DAILY PRN PRN Reason: Constipation Metformin HCl (Metformin Hcl 500 Mg Tablet) 500 mg PO BIDWM [facility] Last Admin: 01/18/25 08:39 Dose: 500 mg Documented By: SUSHMA Nicotine (Nicotine 21 Mg Patch.Td24) 21 mg TRANSDERMA DAILY [facility] Last Admin: 01/18/25 08:41 Dose: Not Given Documented By: SUSHMA Non-Admin Reason: Patient Refused Nicotine Polacrilex (Nicotine Polacrilex 2 Mg Gum) 4 mg BUCCAL Q2H PRN PRN Reason: Nicotine Cravings Prazosin HCl (Prazosin Hcl 1 Mg Capsule) 1 mg PO BEDTIME [facility] Last Admin: 01/17/25 21:25 Dose: 1 mg Documented By: DAMION Quetiapine Fumarate (Quetiapine Fumarate 200 Mg Tablet) 200 mg PO BEDTIME [facility] Last Admin: 01/17/25 21:25 Dose: 200 mg Documented By: DAMION Trazodone HCl (Trazodone Hcl 50 Mg Tablet) 150 mg PO BEDTIME [facility] Last Admin: 01/17/25 21:25 Dose: 150 mg Documented By: DAMION Labs 01/16/25 03:53 01/16/25 08:20 Labs: Laboratory Results - last 24 hr 01/17/25 01/17/25 01/17/25 12:01 16:34 20:47 POC Glucose 107 145 H 120 H 01/18/25 07:43 POC Glucose 90 Microbiology Microbiology Results: Microbiology 01/16/25 04:10 Urine Culture - Final Urine clean catch - Clean Catch Midstream Escherichia coli Assessment and Plan (1) Urinary tract infection: Status: Acute Plan 49-year-old male with past medical history listed below presented to the ED with suicide ideation. He was medically cleared and now is admitted inpatient level of care for further treatment. Major depressive disorder/polysubstance use Treatment per psychiatric team UTI Sensitive to Macrobid Greater than 100,000 of E coli Treat for 7 days We will need Urology follow up outpatient due to recurrent UTI Hypertension Continue amlodipine and lisinopril Type 2 diabetes Continue metformin A1c pending. Patient declined labs this morning Thank you for allowing me to participate in the care of this patient. Will follow as needed, please notify medical provider with any changes in condition or concerns. Quality Stroke Does the patient have a stroke diagnosis?: No VTE Prior VTE?: No VTE Risk Level:: Medical - low VTE Device Contraindication: Treatment Not Indicated VTE Drug Contraindication: Treatment Not Indicated
[2025-01-18 12:03] LABS: Glucose, Whole Blood 128 mg/dL (60-115)
--- NOTE | 2025-01-18 14:19 | MHC.CLN ---
CONSULT ROUTINE NUTRITION CONSULT. PATIENT WITH BMI=17.8, UNDERWEIGHT. REPORTED POOR PO. HX SUBSTANCE ABUSE AND HOMELESSNESS CONTRIBUTING FACTORS TO POOR PO. ADDING ENSURE TID TO PROMOTE NUTRITIONAL INTAKE. PATIENT WITH DX DM AND SUPPLEMENT IS NOT LOW CARBOHYDRATE. NURSING TO MONITOR BLOOD SUGARS.
--- NOTE | 2025-01-18 16:14 | MHC.RECOVRN ---
Met with pt in 323-2 after receiving addiction consult to discuss ongoing substance use and recovery supports & options. Upon approach pt is irritable and not receptive to discussion. Pt stating he wants his Suboxone and that he is in withdrawals. Provider made aware and Suboxone ordered. Pt declined any further discussion in regards to [facility] tx options/ interventions. Pt wanted to be left alone. Advised pt that the ACS team is avaiable for support PRN and should he changes his mind to contact the ACS team or make his primary RN aware. No other questions or concerns offered at this time. Discussed with Maria Elena Sanchez NP.
[2025-01-18 16:37] LABS: Glucose, Whole Blood 152 mg/dL (60-115)
[2025-01-18 20:30] VITALS: BP 157/69; PULSE 78; RESP 18; TEMP 37.7; O2SAT 98
[2025-01-18 20:41] LABS: Glucose, Whole Blood 118 mg/dL (60-115)
[2025-01-18 21:32] LABS: Glucose, Whole Blood 115 mg/dL (60-115)
[2025-01-19 08:04] LABS: Glucose, Whole Blood 120 mg/dL (60-115)
[2025-01-19 08:18] VITALS: BP 144/87; PULSE 72; RESP 18; TEMP 36.7; O2SAT 97
[2025-01-19] MEDS: buPROPion HCl XL 150 MG TAB.ER.24H PO (08:39)
--- NOTE | 2025-01-19 10:55 | P.PNPSI_ITS ---
Subjective Subjective Date of Service: 01/19/25 Reason For Visit: SI Subjective Notes: Conditional Voluntary Interim History: Patient was seen and discussed in rounds today. Records and plans were reviewed. He continues to be mostly isolative, in his room and in bed. No behavioral issues. Eucerin cream was ordered for his very dry hands. Endorses depression and anxiety. No SI. No AVH. Review of Systems Review of Systems Yes all other systems are reviewed and are negative Mental Status Exam Mental Status Exam Narrative: In today's visit he is alert, pleasant and minimally interactive. Soft-spoken, mumbling speech. No eye contact. Affect is flat and constricted. No acute signs of psychosis observed. No AVH. No SI. Cognitively could not be assessed but appears to have slowed thought processes. Judgment is hard to assess. Diagnostics Vital Signs (24Hr): Vital Signs - 24 hr 01/18/25 20:30 01/19/25 08:18 Temperature 99.8 F 98.0 F Pulse Rate 78 72 Respiratory Rate 18 18 Blood Pressure 157/69 H 144/87 H Pulse Oximetry 98 97 Oxygen Delivery Method Room Air Room Air BMI result Body Mass Index 17.8 Labs 01/16/25 03:53 01/16/25 08:20 Labs: Laboratory Results - last 48 hr 01/17/25 01/17/25 01/17/25 12:01 16:34 20:47 POC Glucose 107 145 H 120 H 01/18/25 01/18/25 01/18/25 07:43 11:58 16:33 POC Glucose 90 128 H 152 H 01/18/25 01/18/25 01/19/25 20:36 21:26 07:57 POC Glucose 118 H 115 120 H Medications Medications Current Medications Acetaminophen (Acetaminophen 325 Mg Tablet) 650 mg PO Q6H PRN PRN Reason: Headache/Pain, Scale 1-10 Last Admin: 01/19/25 09:10 Dose: 650 mg Al Hydroxide/Mg Hydroxide (Magnesium Hydrox/Alum Hydrox 30 Ml Oral.Susp) 30 ml PO Q6H PRN PRN Reason: Heartburn/Nausea Amlodipine Besylate (Amlodipine Besylate 5 Mg Tablet) 5 mg PO DAILY [facility] Last Admin: 01/19/25 08:39 Dose: 5 mg Buprenorphine/Naloxone (Buprenorphine/Naloxone 8/2 Mg Film) 1 film SUBLINGUAL TID [facility] Last Admin: 01/19/25 08:40 Dose: 1 film Bupropion HCl (Bupropion Hcl Xl 150 Mg Tab.Er.24h) 150 mg PO DAILY [facility] Last Admin: 01/19/25 08:39 Dose: 150 mg Buspirone HCl (Buspirone Hcl 5 Mg Tablet) 15 mg PO TID PRN PRN Reason: Anxiety Dextrose (Dextrose 50 % 25 Gm/50 Ml Syringe) 25 gm IVPUSH Q15M PRN; Protocol PRN Reason: per Hypoglycemia Standing Ord. Gabapentin (Gabapentin 400 Mg Capsule) 400 mg PO TID [facility] Last Admin: 01/19/25 08:39 Dose: 400 mg Glucose (Glucose Gel 15 Gm Gel..Gram.) 15 gm PO Q15M PRN; Protocol PRN Reason: per Hypoglycemia Standing Ord. Hydroxyzine HCl (Hydroxyzine Hcl 50 Mg Tablet) 50 mg PO Q8H PRN PRN Reason: Anxiety Last Admin: 01/19/25 02:40 Dose: 50 mg Insulin Human Lispro (Insulin Lispro 100 Unit/Ml 3 Ml Vial) 0 unit SUBCUT QIDACHS [facility]; Protocol Last Admin: 01/19/25 08:07 Dose: Not Given Lisinopril (Lisinopril 20 Mg Tablet) 20 mg PO DAILY [facility]; Protocol Last Admin: 01/19/25 08:39 Dose: 20 mg Magnesium Hydroxide (Milk Of Magnesia 30 Ml Oral.Susp) 30 ml PO DAILY PRN PRN Reason: Constipation Metformin HCl (Metformin Hcl 500 Mg Tablet) 500 mg PO BIDWM [facility] Last Admin: 01/19/25 08:38 Dose: 500 mg Nicotine Polacrilex (Nicotine Polacrilex 2 Mg Gum) 4 mg BUCCAL Q2H PRN PRN Reason: Nicotine Cravings Nitrofurantoin Macrocrystals (Nitrofurantoin Monohyd/M-Cryst 100 Mg Capsule) 100 mg PO Q12H [facility] Stop: 01/25/25 09:59 Last Admin: 01/19/25 09:10 Dose: 100 mg Prazosin HCl (Prazosin Hcl 1 Mg Capsule) 1 mg PO BEDTIME [facility] Last Admin: 01/18/25 20:29 Dose: 1 mg Quetiapine Fumarate (Quetiapine Fumarate 200 Mg Tablet) 200 mg PO BEDTIME [facility] Last Admin: 01/18/25 20:29 Dose: 200 mg Trazodone HCl (Trazodone Hcl 50 Mg Tablet) 150 mg PO BEDTIME [facility] Last Admin: 01/18/25 20:28 Dose: 150 mg Allergies Allergies Allergy/AdvReac Type Severity Reaction Status Date / Time levofloxacin (From Levaquin) Allergy Intermediate rash Verified 01/16/25 03:28 Assessment & Plan Assessment & Plan (1) Urinary tract infection: Status: Acute Code(s): N39.0 - Urinary tract infection, site not specified Plan 49-year-old male with past medical history listed below presented to the ED with suicide ideation. He was medically cleared and now is admitted inpatient level of care for further treatment. Major depressive disorder/polysubstance use Treatment per psychiatric team UTI Sensitive to Macrobid Greater than 100,000 of E coli Treat for 7 days We will need Urology follow up outpatient due to recurrent UTI Hypertension Continue amlodipine and lisinopril Type 2 diabetes Continue metformin A1c pending. Patient declined labs this morning Thank you for allowing me to participate in the care of this patient. Will follow as needed, please notify medical provider with any changes in condition or concerns. 01/19: Continue current regimen and plans Reason for continued inpatient stay Substantial Risk for: med/psych decompensation Time Spent With Patient Time: Total time managing care of this patient today ____ minutes.
[2025-01-19 11:48] LABS: Glucose, Whole Blood 165 mg/dL (60-115)
[2025-01-19 16:56] LABS: Glucose, Whole Blood 280 mg/dL (60-115)
[2025-01-19 20:00] VITALS: BP 155/83; PULSE 77; RESP 16; TEMP 36.7; O2SAT 98
[2025-01-19 20:54] LABS: Glucose, Whole Blood 186 mg/dL (60-115)
[2025-01-20 07:57] LABS: Glucose, Whole Blood 130 mg/dL (60-115)
[2025-01-20 08:23] VITALS: BP 145/87; PULSE 73; RESP 18; TEMP 37.2; O2SAT 98
[2025-01-20] MEDS: buPROPion HCl XL 150 MG TAB.ER.24H PO (08:25)
[2025-01-20 08:34] VITALS: BP 145/87; PULSE 73; RESP 18; TEMP 37.2; O2SAT 98
--- NOTE | 2025-01-20 10:37 | P.PNPSI_ITS ---
Subjective Subjective Date of Service: 01/20/25 Reason For Visit: SI Subjective Notes: Conditional Voluntary Interim History: Patient was seen and discussed in rounds today. Records and plans were reviewed. He is very isolative and to himself. Eating and sleeping adequately. He is guarded. Endorses depression and anxiety. He has been refusing his insulin coverage because ?I do not do it at home?. I stressed the importance of this but I am not sure he is going to change his mind. No SI. No AVH. No changes were made today Review of Systems Review of Systems Yes all other systems are reviewed and are negative Mental Status Exam Mental Status Exam Narrative: In today's visit he is alert, pleasant and minimally interactive. Soft-spoken, mumbling speech. No eye contact. Affect is flat and constricted. No acute signs of psychosis observed. No AVH. No SI. Cognitively could not be assessed but appears to have slowed thought processes. Judgment is hard to assess. Diagnostics Vital Signs (24Hr): Vital Signs - 24 hr 01/19/25 20:00 01/20/25 08:23 01/20/25 08:34 Temperature 98.0 F 98.9 F 98.9 F Pulse Rate 77 73 73 Respiratory Rate 16 18 18 Blood Pressure 155/83 H 145/87 H 145/87 H Pulse Oximetry 98 98 98 Oxygen Delivery Method Room Air Room Air Room Air BMI result Body Mass Index 17.8 Labs 01/16/25 03:53 01/16/25 08:20 Labs: Laboratory Results - last 48 hr 01/18/25 01/18/25 01/18/25 11:58 16:33 20:36 POC Glucose 128 H 152 H 118 H 01/18/25 01/19/25 01/19/25 21:26 07:57 11:41 POC Glucose 115 120 H 165 H 01/19/25 01/19/25 01/20/25 16:45 20:49 07:51 POC Glucose 280 H 186 H 130 H Medications Medications Current Medications Acetaminophen (Acetaminophen 325 Mg Tablet) 650 mg PO Q6H PRN PRN Reason: Headache/Pain, Scale 1-10 Last Admin: 01/20/25 08:43 Dose: 650 mg Al Hydroxide/Mg Hydroxide (Magnesium Hydrox/Alum Hydrox 30 Ml Oral.Susp) 30 ml PO Q6H PRN PRN Reason: Heartburn/Nausea Amlodipine Besylate (Amlodipine Besylate 5 Mg Tablet) 5 mg PO DAILY [facility] Last Admin: 01/20/25 08:26 Dose: 5 mg Buprenorphine/Naloxone (Buprenorphine/Naloxone 8/2 Mg Film) 1 film SUBLINGUAL TID [facility] Last Admin: 01/20/25 08:26 Dose: 1 film Bupropion HCl (Bupropion Hcl Xl 150 Mg Tab.Er.24h) 150 mg PO DAILY [facility] Last Admin: 01/20/25 08:25 Dose: 150 mg Buspirone HCl (Buspirone Hcl 5 Mg Tablet) 15 mg PO TID PRN PRN Reason: Anxiety Dextrose (Dextrose 50 % 25 Gm/50 Ml Syringe) 25 gm IVPUSH Q15M PRN; Protocol PRN Reason: per Hypoglycemia Standing Ord. Gabapentin (Gabapentin 400 Mg Capsule) 400 mg PO TID [facility] Last Admin: 01/20/25 08:26 Dose: 400 mg Glucose (Glucose Gel 15 Gm Gel..Gram.) 15 gm PO Q15M PRN; Protocol PRN Reason: per Hypoglycemia Standing Ord. Hydroxyzine HCl (Hydroxyzine Hcl 50 Mg Tablet) 50 mg PO Q8H PRN PRN Reason: Anxiety Last Admin: 01/19/25 02:40 Dose: 50 mg Insulin Human Lispro (Insulin Lispro 100 Unit/Ml 3 Ml Vial) 0 unit SUBCUT QIDACHS [facility]; Protocol Last Admin: 01/20/25 07:59 Dose: Not Given Lisinopril (Lisinopril 20 Mg Tablet) 20 mg PO DAILY [facility]; Protocol Last Admin: 01/20/25 08:25 Dose: 20 mg Magnesium Hydroxide (Milk Of Magnesia 30 Ml Oral.Susp) 30 ml PO DAILY PRN PRN Reason: Constipation Metformin HCl (Metformin Hcl 500 Mg Tablet) 500 mg PO BIDWM [facility] Last Admin: 01/20/25 08:25 Dose: 500 mg Multi-Ingred Cream/Lotion/Oil/Oint (Mineral Oil/Petrolatum,White 106 Gm Tube) 1 appl TOPICAL TID PRN; Protocol PRN Reason: Dry hands Nicotine Polacrilex (Nicotine Polacrilex 2 Mg Gum) 4 mg BUCCAL Q2H PRN PRN Reason: Nicotine Cravings Nitrofurantoin Macrocrystals (Nitrofurantoin Monohyd/M-Cryst 100 Mg Capsule) 100 mg PO Q12H [facility] Stop: 01/25/25 09:59 Last Admin: 01/20/25 09:19 Dose: 100 mg Prazosin HCl (Prazosin Hcl 1 Mg Capsule) 1 mg PO BEDTIME [facility] Last Admin: 01/19/25 20:56 Dose: 1 mg Quetiapine Fumarate (Quetiapine Fumarate 200 Mg Tablet) 200 mg PO BEDTIME [facility] Last Admin: 01/19/25 20:56 Dose: 200 mg Trazodone HCl (Trazodone Hcl 50 Mg Tablet) 150 mg PO BEDTIME [facility] Last Admin: 01/19/25 20:56 Dose: 150 mg Allergies Allergies Allergy/AdvReac Type Severity Reaction Status Date / Time levofloxacin (From Levaquin) Allergy Intermediate rash Verified 01/16/25 03:28 Assessment & Plan Assessment & Plan (1) Urinary tract infection: Status: Acute Code(s): N39.0 - Urinary tract infection, site not specified Plan 49-year-old male with past medical history listed below presented to the ED with suicide ideation. He was medically cleared and now is admitted inpatient level of care for further treatment. Major depressive disorder/polysubstance use Treatment per psychiatric team UTI Sensitive to Macrobid Greater than 100,000 of E coli Treat for 7 days We will need Urology follow up outpatient due to recurrent UTI Hypertension Continue amlodipine and lisinopril Type 2 diabetes Continue metformin A1c pending. Patient declined labs this morning Thank you for allowing me to participate in the care of this patient. Will follow as needed, please notify medical provider with any changes in condition or concerns. 01/19: Continue current regimen and plans 01/20: Continue current regimen and plans Reason for continued inpatient stay Substantial Risk for: med/psych decompensation Time Spent With Patient Time: Total time managing care of this patient today ____ minutes.
[2025-01-20 11:47] LABS: Glucose, Whole Blood 106 mg/dL (60-115)
[2025-01-20 16:45] LABS: Glucose, Whole Blood 111 mg/dL (60-115)
[2025-01-20 19:30] VITALS: BP 155/90; PULSE 71; RESP 16; TEMP 36.9; O2SAT 97
[2025-01-20 20:22] LABS: Glucose, Whole Blood 107 mg/dL (60-115)
[2025-01-20] MEDS: Mineral Oil/Petrolatum,White 106 GM Tube 1 APPL TOPICAL (20:50)
[2025-01-21 08:00] VITALS: BP 131/82; PULSE 75; RESP 20; TEMP 37.3; O2SAT 97
[2025-01-21 08:18] LABS: Glucose, Whole Blood 120 mg/dL (60-115)
[2025-01-21 09:02] VITALS: BP 131/82
[2025-01-21] MEDS: buPROPion HCl XL 150 MG TAB.ER.24H PO (09:02)
[2025-01-21 09:03] VITALS: BP 131/82
--- NOTE | 2025-01-21 09:07 | P.PNPSI_ITS ---
Subjective Subjective Date of Service: 01/21/25 Reason For Visit: SI Subjective Notes: Conditional Voluntary Interim History: Patient was seen and discussed in rounds today. Records and plans were reviewed. He continues to be isolative and on the bed most of the time. He is guarded. Blood sugars have been running within normal range. He is flat. Admits to some vague suicidal ideations but no plans or danger. No complaints or side effects. Eating and sleeping adequately Review of Systems Review of Systems Yes all other systems are reviewed and are negative Mental Status Exam Mental Status Exam Narrative: In today's visit he is alert, pleasant and minimally interactive. Soft-spoken, mumbling speech. No eye contact. Affect is flat and constricted. No acute signs of psychosis observed. No AVH. No SI. Cognitively could not be assessed but appears to have slowed thought processes. Judgment is hard to assess. Diagnostics Vital Signs (24Hr): Vital Signs - 24 hr 01/20/25 19:30 01/21/25 08:00 01/21/25 09:02 Temperature 98.4 F 99.1 F Pulse Rate 71 75 Respiratory Rate 16 20 Blood Pressure 155/90 H 131/82 131/82 Pulse Oximetry 97 97 Oxygen Delivery Method Room Air Room Air 01/21/25 09:03 Temperature Pulse Rate Respiratory Rate Blood Pressure 131/82 Pulse Oximetry Oxygen Delivery Method BMI result Body Mass Index 17.8 Labs 01/16/25 03:53 01/16/25 08:20 Labs: Laboratory Results - last 48 hr 01/19/25 01/19/25 01/19/25 11:41 16:45 20:49 POC Glucose 165 H 280 H 186 H 01/20/25 01/20/25 01/20/25 07:51 11:40 16:41 POC Glucose 130 H 106 111 01/20/25 01/21/25 20:18 07:46 POC Glucose 107 120 H Medications Medications Current Medications Acetaminophen (Acetaminophen 325 Mg Tablet) 650 mg PO Q6H PRN PRN Reason: Headache/Pain, Scale 1-10 Last Admin: 01/20/25 08:43 Dose: 650 mg Al Hydroxide/Mg Hydroxide (Magnesium Hydrox/Alum Hydrox 30 Ml Oral.Susp) 30 ml PO Q6H PRN PRN Reason: Heartburn/Nausea Amlodipine Besylate (Amlodipine Besylate 5 Mg Tablet) 5 mg PO DAILY [facility] Last Admin: 01/21/25 09:02 Dose: 5 mg Buprenorphine/Naloxone (Buprenorphine/Naloxone 8/2 Mg Film) 1 film SUBLINGUAL TID [facility] Last Admin: 01/21/25 09:04 Dose: 1 film Bupropion HCl (Bupropion Hcl Xl 150 Mg Tab.Er.24h) 150 mg PO DAILY [facility] Last Admin: 01/21/25 09:02 Dose: 150 mg Buspirone HCl (Buspirone Hcl 5 Mg Tablet) 15 mg PO TID PRN PRN Reason: Anxiety Dextrose (Dextrose 50 % 25 Gm/50 Ml Syringe) 25 gm IVPUSH Q15M PRN; Protocol PRN Reason: per Hypoglycemia Standing Ord. Gabapentin (Gabapentin 400 Mg Capsule) 400 mg PO TID [facility] Last Admin: 01/21/25 09:02 Dose: 400 mg Glucose (Glucose Gel 15 Gm Gel..Gram.) 15 gm PO Q15M PRN; Protocol PRN Reason: per Hypoglycemia Standing Ord. Hydroxyzine HCl (Hydroxyzine Hcl 50 Mg Tablet) 50 mg PO Q8H PRN PRN Reason: Anxiety Last Admin: 01/19/25 02:40 Dose: 50 mg Insulin Human Lispro (Insulin Lispro 100 Unit/Ml 3 Ml Vial) 0 unit SUBCUT QIDACHS [facility]; Protocol Last Admin: 01/21/25 09:05 Dose: Not Given Lisinopril (Lisinopril 20 Mg Tablet) 20 mg PO DAILY [facility]; Protocol Last Admin: 01/21/25 09:03 Dose: 20 mg Magnesium Hydroxide (Milk Of Magnesia 30 Ml Oral.Susp) 30 ml PO DAILY PRN PRN Reason: Constipation Metformin HCl (Metformin Hcl 500 Mg Tablet) 500 mg PO BIDWM [facility] Last Admin: 01/21/25 09:03 Dose: 500 mg Multi-Ingred Cream/Lotion/Oil/Oint (Mineral Oil/Petrolatum,White 106 Gm Tube) 1 appl TOPICAL TID PRN; Protocol PRN Reason: Dry hands Last Admin: 01/20/25 20:50 Dose: 1 appl Nicotine Polacrilex (Nicotine Polacrilex 2 Mg Gum) 4 mg BUCCAL Q2H PRN PRN Reason: Nicotine Cravings Nitrofurantoin Macrocrystals (Nitrofurantoin Monohyd/M-Cryst 100 Mg Capsule) 100 mg PO Q12H [facility] Stop: 01/25/25 09:59 Last Admin: 01/20/25 21:29 Dose: 100 mg Prazosin HCl (Prazosin Hcl 1 Mg Capsule) 1 mg PO BEDTIME [facility] Last Admin: 01/20/25 20:31 Dose: 1 mg Quetiapine Fumarate (Quetiapine Fumarate 200 Mg Tablet) 200 mg PO BEDTIME [facility] Last Admin: 01/20/25 20:31 Dose: 200 mg Trazodone HCl (Trazodone Hcl 50 Mg Tablet) 150 mg PO BEDTIME [facility] Last Admin: 01/20/25 20:31 Dose: 150 mg Allergies Allergies Allergy/AdvReac Type Severity Reaction Status Date / Time levofloxacin (From Levaquin) Allergy Intermediate rash Verified 01/16/25 03:28 Assessment & Plan Assessment & Plan (1) Urinary tract infection: Status: Acute Code(s): N39.0 - Urinary tract infection, site not specified Plan 49-year-old male with past medical history listed below presented to the ED with suicide ideation. He was medically cleared and now is admitted inpatient level of care for further treatment. Major depressive disorder/polysubstance use Treatment per psychiatric team UTI Sensitive to Macrobid Greater than 100,000 of E coli Treat for 7 days We will need Urology follow up outpatient due to recurrent UTI Hypertension Continue amlodipine and lisinopril Type 2 diabetes Continue metformin A1c pending. Patient declined labs this morning Thank you for allowing me to participate in the care of this patient. Will follow as needed, please notify medical provider with any changes in condition or concerns. 01/19: Continue current regimen and plans 01/20: Continue current regimen and plans 01/21: Continue current regimen and plans. Reason for continued inpatient stay Substantial Risk for: med/psych decompensation Time Spent With Patient Time: Total time managing care of this patient today ____ minutes.
[2025-01-21 12:10] LABS: Glucose, Whole Blood 136 mg/dL (60-115)
[2025-01-21 16:59] LABS: Glucose, Whole Blood 119 mg/dL (60-115)
[2025-01-21 19:25] VITALS: BP 140/86; PULSE 69; RESP 16; TEMP 36.7; O2SAT 96
[2025-01-21 20:18] LABS: Glucose, Whole Blood 101 mg/dL (60-115)
[2025-01-21] MEDS: Mineral Oil/Petrolatum,White 106 GM Tube 1 APPL TOPICAL (21:46)
[2025-01-22 07:55] VITALS: BP 126/74; PULSE 78; RESP 18; TEMP 36.9; O2SAT 95
[2025-01-22 08:06] LABS: Glucose, Whole Blood 302 mg/dL (60-115)
[2025-01-22] MEDS: buPROPion HCl XL 150 MG TAB.ER.24H PO (08:34)
--- NOTE | 2025-01-22 10:01 | PM.PSYDC ---
DS: Providers Provider Date of Service: 01/22/25 Date of admission: 01/16/25 15:13 Date of discharge: 01/22/25 [facility] clinician: Bonnie Crawford Attending physician on admission: Jonathan Mitchell Consults: 01/16/25 19:01 Addiction Medicine Provider Routine Consulting Provider: Addiction Covering Reason for consultation: mult substance use Attending physician on discharge: Jonathan Mitchell Discharging clinician: Bonnie Crawford DS: Diagnosis Discharge Diagnosis (1) Urinary tract infection: Status: Acute DS: Medications Discharge Medications Home Medications: Home Medications ?Medication ?Instructions ?Recorded ?Confirmed hydroxyzine pamoate 50 mg capsule 50 mg PO Q8H PRN Anxiety 07/16/22 01/16/25 Proscar 15 mg PO BID 01/16/25 01/16/25 Seroquel 200 mg PO BEDTIME 01/16/25 01/16/25 Suboxone 1 film PO TID 01/16/25 01/16/25 amlodipine 5 mg PO DAILY 01/16/25 01/16/25 buspirone 10 mg tablet 15 mg PO TID PRN anxiety 01/16/25 01/16/25 prazosin 1 mg PO BEDTIME 01/16/25 01/16/25 trazodone 150 mg PO BEDTIME 01/16/25 01/16/25 trazodone 100 mg tablet 150 mg PO BEDTIME 01/16/25 01/16/25 Previous Rx's ?Medication ?Instructions ?Recorded acetaminophen 325 mg tablet 650 mg (2 x 325 mg) PO Q6H PRN 07/27/22 Headache/Pain Mild Scale (1-3) #0 tabs bupropion HCl 150 mg 24 hr tablet, 450 mg (3 x 150 mg) PO DAILY 30 07/27/22 extended release days #90 tabs gabapentin 400 mg capsule 800 mg (2 x 400 mg) PO QID 30 days 07/27/22 #240 caps lisinopril 20 mg tablet 20 mg PO DAILY 30 days #30 tabs 07/27/22 metformin 500 mg tablet 500 mg PO BIDWM 30 days #60 tabs 07/27/22 Mental Status Exam Mental Status Exam Narrative: Pt is alert and oriented; behavior is cooperative and calm; dressed in casual attire; mood is described as good ; eye contact appropriate; Speech is normal rate, volume and not pressured; thought process is organized; Thought content is on discharge; denies SI/HI/VH/AH. Data Data Completed and Pending Completed studies during hospitalization [Text1]: 01/16/25 01/16/25 01/16/25 03:53 04:10 08:20 WBC 9.6 RBC 4.95 Hgb 14.7 Hct 41.8 L MCV 84.4 MCH 29.7 MCHC 35.2 RDW 12.8 Plt Count 309 MPV 9.6 Immature Gran % (Auto) 0.3 Neut % (Auto) 76.0 H Lymph % (Auto) 16.5 L [place] % (Auto) 6.5 Eos % (Auto) 0.4 Baso % (Auto) 0.3 Lymph # (Auto) 1.6 [place] # (Auto) 0.6 Eos # (Auto) 0.0 Baso # (Auto) 0.0 Abs Immat Gran (auto) 0.03 Absolute Neuts (auto) 7.3 Absolute Nucleated RBC 0.000 Nucleated RBC % (auto) 0.0 Sodium 135 135 Potassium 2.9 L* 3.5 D Chloride 97 100 Carbon Dioxide 25 25 Anion Gap 16 14 BUN 31 H 25 H Creatinine 1.54 H 1.08 Estim Creat Clear Calc 57.0 81.3 Estimated GFR 49 > 60 POC Glucose Random Glucose 125 H 124 H Calcium 9.1 8.4 D Magnesium 2.4 Total Bilirubin 0.4 AST 34 ALT 23 Alkaline Phosphatase 59 Total Protein 7.9 Albumin 4.3 Urine Color Dark Yellow Urine Appearance Cloudy Urine pH 5.0 Ur Specific [place] >= 1.030 H Urine Protein 100 (2+) H Urine Glucose (UA) Negative Urine Ketones Trace Urine Blood Negative Urine Nitrite Negative Ur Leukocyte Esterase Small (1+) H Urine RBC 0-2 Urine WBC 21-50 H Ur Squamous Epith Cells 6-10 Urine Bacteria Trace Hyaline Casts >20 Salicylates < 5.0 L Urine Opiates Screen Not Detected Ur Buprenorphine Scrn Positive H Ur Oxycodone Screen Not Detected Urine Methadone Screen Not Detected Urine Fentanyl Screen POSITIVE H Acetaminophen 8 Ur Barbiturates Screen Not Detected Ur Phencyclidine Scrn Not Detected Ur Amphetamines Screen Not Detected U Benzodiazepines Scrn Not Detected Urine Cocaine Screen POSITIVE H U Marijuana (THC) Screen POSITIVE H Ethyl Alcohol < 10 01/16/25 01/16/25 01/17/25 11:29 20:27 12:01 WBC RBC Hgb Hct MCV MCH MCHC RDW Plt Count MPV Immature Gran % (Auto) Neut % (Auto) Lymph % (Auto) [place] % (Auto) Eos % (Auto) Baso % (Auto) Lymph # (Auto) [place] # (Auto) Eos # (Auto) Baso # (Auto) Abs Immat Gran (auto) Absolute Neuts (auto) Absolute Nucleated RBC Nucleated RBC % (auto) Sodium Potassium Chloride Carbon Dioxide Anion Gap BUN Creatinine Estim Creat Clear Calc Estimated GFR POC Glucose 113 107 Random Glucose Calcium Magnesium Total Bilirubin AST ALT Alkaline Phosphatase Total Protein Albumin Urine Color Urine Appearance Urine pH Ur Specific [place] Urine Protein Urine Glucose (UA) Urine Ketones Urine Blood Urine Nitrite Ur Leukocyte Esterase Urine RBC Urine WBC Ur Squamous Epith Cells Urine Bacteria Hyaline Casts Salicylates Urine Opiates Screen Ur Buprenorphine Scrn Ur Oxycodone Screen Urine Methadone Screen Urine Fentanyl Screen Acetaminophen Ur Barbiturates Screen Ur Phencyclidine Scrn Ur Amphetamines Screen U Benzodiazepines Scrn Urine Cocaine Screen U Marijuana (THC) Screen Ethyl Alcohol < 10 01/17/25 01/17/25 01/18/25 16:34 20:47 07:43 WBC RBC Hgb Hct MCV MCH MCHC RDW Plt Count MPV Immature Gran % (Auto) Neut % (Auto) Lymph % (Auto) [place] % (Auto) Eos % (Auto) Baso % (Auto) Lymph # (Auto) [place] # (Auto) Eos # (Auto) Baso # (Auto) Abs Immat Gran (auto) Absolute Neuts (auto) Absolute Nucleated RBC Nucleated RBC % (auto) Sodium Potassium Chloride Carbon Dioxide Anion Gap BUN Creatinine Estim Creat Clear Calc Estimated GFR POC Glucose 145 H 120 H 90 Random Glucose Calcium Magnesium Total Bilirubin AST ALT Alkaline Phosphatase Total Protein Albumin Urine Color Urine Appearance Urine pH Ur Specific [place] Urine Protein Urine Glucose (UA) Urine Ketones Urine Blood Urine Nitrite Ur Leukocyte Esterase Urine RBC Urine WBC Ur Squamous Epith Cells Urine Bacteria Hyaline Casts Salicylates Urine Opiates Screen Ur Buprenorphine Scrn Ur Oxycodone Screen Urine Methadone Screen Urine Fentanyl Screen Acetaminophen Ur Barbiturates Screen Ur Phencyclidine Scrn Ur Amphetamines Screen U Benzodiazepines Scrn Urine Cocaine Screen U Marijuana (THC) Screen Ethyl Alcohol 01/18/25 01/18/25 01/18/25 11:58 16:33 20:36 WBC RBC Hgb Hct MCV MCH MCHC RDW Plt Count MPV Immature Gran % (Auto) Neut % (Auto) Lymph % (Auto) [place] % (Auto) Eos % (Auto) Baso % (Auto) Lymph # (Auto) [place] # (Auto) Eos # (Auto) Baso # (Auto) Abs Immat Gran (auto) Absolute Neuts (auto) Absolute Nucleated RBC Nucleated RBC % (auto) Sodium Potassium Chloride Carbon Dioxide Anion Gap BUN Creatinine Estim Creat Clear Calc Estimated GFR POC Glucose 128 H 152 H 118 H Random Glucose Calcium Magnesium Total Bilirubin AST ALT Alkaline Phosphatase Total Protein Albumin Urine Color Urine Appearance Urine pH Ur Specific [place] Urine Protein Urine Glucose (UA) Urine Ketones Urine Blood Urine Nitrite Ur Leukocyte Esterase Urine RBC Urine WBC Ur Squamous Epith Cells Urine Bacteria Hyaline Casts Salicylates Urine Opiates Screen Ur Buprenorphine Scrn Ur Oxycodone Screen Urine Methadone Screen Urine Fentanyl Screen Acetaminophen Ur Barbiturates Screen Ur Phencyclidine Scrn Ur Amphetamines Screen U Benzodiazepines Scrn Urine Cocaine Screen U Marijuana (THC) Screen Ethyl Alcohol 01/18/25 01/19/25 01/19/25 21:26 07:57 11:41 WBC RBC Hgb Hct MCV MCH MCHC RDW Plt Count MPV Immature Gran % (Auto) Neut % (Auto) Lymph % (Auto) [place] % (Auto) Eos % (Auto) Baso % (Auto) Lymph # (Auto) [place] # (Auto) Eos # (Auto) Baso # (Auto) Abs Immat Gran (auto) Absolute Neuts (auto) Absolute Nucleated RBC Nucleated RBC % (auto) Sodium Potassium Chloride Carbon Dioxide Anion Gap BUN Creatinine Estim Creat Clear Calc Estimated GFR POC Glucose 115 120 H 165 H Random Glucose Calcium Magnesium Total Bilirubin AST ALT Alkaline Phosphatase Total Protein Albumin Urine Color Urine Appearance Urine pH Ur Specific [place] Urine Protein Urine Glucose (UA) Urine Ketones Urine Blood Urine Nitrite Ur Leukocyte Esterase Urine RBC Urine WBC Ur Squamous Epith Cells Urine Bacteria Hyaline Casts Salicylates Urine Opiates Screen Ur Buprenorphine Scrn Ur Oxycodone Screen Urine Methadone Screen Urine Fentanyl Screen Acetaminophen Ur Barbiturates Screen Ur Phencyclidine Scrn Ur Amphetamines Screen U Benzodiazepines Scrn Urine Cocaine Screen U Marijuana (THC) Screen Ethyl Alcohol 01/19/25 01/19/25 01/20/25 16:45 20:49 07:51 WBC RBC Hgb Hct MCV MCH MCHC RDW Plt Count MPV Immature Gran % (Auto) Neut % (Auto) Lymph % (Auto) [place] % (Auto) Eos % (Auto) Baso % (Auto) Lymph # (Auto) [place] # (Auto) Eos # (Auto) Baso # (Auto) Abs Immat Gran (auto) Absolute Neuts (auto) Absolute Nucleated RBC Nucleated RBC % (auto) Sodium Potassium Chloride Carbon Dioxide Anion Gap BUN Creatinine Estim Creat Clear Calc Estimated GFR POC Glucose 280 H 186 H 130 H Random Glucose Calcium Magnesium Total Bilirubin AST ALT Alkaline Phosphatase Total Protein Albumin Urine Color Urine Appearance Urine pH Ur Specific [place] Urine Protein Urine Glucose (UA) Urine Ketones Urine Blood Urine Nitrite Ur Leukocyte Esterase Urine RBC Urine WBC Ur Squamous Epith Cells Urine Bacteria Hyaline Casts Salicylates Urine Opiates Screen Ur Buprenorphine Scrn Ur Oxycodone Screen Urine Methadone Screen Urine Fentanyl Screen Acetaminophen Ur Barbiturates Screen Ur Phencyclidine Scrn Ur Amphetamines Screen U Benzodiazepines Scrn Urine Cocaine Screen U Marijuana (THC) Screen Ethyl Alcohol 01/20/25 01/20/25 01/20/25 11:40 16:41 20:18 WBC RBC Hgb Hct MCV MCH MCHC RDW Plt Count MPV Immature Gran % (Auto) Neut % (Auto) Lymph % (Auto) [place] % (Auto) Eos % (Auto) Baso % (Auto) Lymph # (Auto) [place] # (Auto) Eos # (Auto) Baso # (Auto) Abs Immat Gran (auto) Absolute Neuts (auto) Absolute Nucleated RBC Nucleated RBC % (auto) Sodium Potassium Chloride Carbon Dioxide Anion Gap BUN Creatinine Estim Creat Clear Calc Estimated GFR POC Glucose 106 111 107 Random Glucose Calcium Magnesium Total Bilirubin AST ALT Alkaline Phosphatase Total Protein Albumin Urine Color Urine Appearance Urine pH Ur Specific [place] Urine Protein Urine Glucose (UA) Urine Ketones Urine Blood Urine Nitrite Ur Leukocyte Esterase Urine RBC Urine WBC Ur Squamous Epith Cells Urine Bacteria Hyaline Casts Salicylates Urine Opiates Screen Ur Buprenorphine Scrn Ur Oxycodone Screen Urine Methadone Screen Urine Fentanyl Screen Acetaminophen Ur Barbiturates Screen Ur Phencyclidine Scrn Ur Amphetamines Screen U Benzodiazepines Scrn Urine Cocaine Screen U Marijuana (THC) Screen Ethyl Alcohol 01/21/25 01/21/25 01/21/25 07:46 12:06 16:55 WBC RBC Hgb Hct MCV MCH MCHC RDW Plt Count MPV Immature Gran % (Auto) Neut % (Auto) Lymph % (Auto) [place] % (Auto) Eos % (Auto) Baso % (Auto) Lymph # (Auto) [place] # (Auto) Eos # (Auto) Baso # (Auto) Abs Immat Gran (auto) Absolute Neuts (auto) Absolute Nucleated RBC Nucleated RBC % (auto) Sodium Potassium Chloride Carbon Dioxide Anion Gap BUN Creatinine Estim Creat Clear Calc Estimated GFR POC Glucose 120 H 136 H 119 H Random Glucose Calcium Magnesium Total Bilirubin AST ALT Alkaline Phosphatase Total Protein Albumin Urine Color Urine Appearance Urine pH Ur Specific [place] Urine Protein Urine Glucose (UA) Urine Ketones Urine Blood Urine Nitrite Ur Leukocyte Esterase Urine RBC Urine WBC Ur Squamous Epith Cells Urine Bacteria Hyaline Casts Salicylates Urine Opiates Screen Ur Buprenorphine Scrn Ur Oxycodone Screen Urine Methadone Screen Urine Fentanyl Screen Acetaminophen Ur Barbiturates Screen Ur Phencyclidine Scrn Ur Amphetamines Screen U Benzodiazepines Scrn Urine Cocaine Screen U Marijuana (THC) Screen Ethyl Alcohol 01/21/25 01/22/25 20:13 07:54 WBC RBC Hgb Hct MCV MCH MCHC RDW Plt Count MPV Immature Gran % (Auto) Neut % (Auto) Lymph % (Auto) [place] % (Auto) Eos % (Auto) Baso % (Auto) Lymph # (Auto) [place] # (Auto) Eos # (Auto) Baso # (Auto) Abs Immat Gran (auto) Absolute Neuts (auto) Absolute Nucleated RBC Nucleated RBC % (auto) Sodium Potassium Chloride Carbon Dioxide Anion Gap BUN Creatinine Estim Creat Clear Calc Estimated GFR POC Glucose 101 302 H Random Glucose Calcium Magnesium Total Bilirubin AST ALT Alkaline Phosphatase Total Protein Albumin Urine Color Urine Appearance Urine pH Ur Specific [place] Urine Protein Urine Glucose (UA) Urine Ketones Urine Blood Urine Nitrite Ur Leukocyte Esterase Urine RBC Urine WBC Ur Squamous Epith Cells Urine Bacteria Hyaline Casts Salicylates Urine Opiates Screen Ur Buprenorphine Scrn Ur Oxycodone Screen Urine Methadone Screen Urine Fentanyl Screen Acetaminophen Ur Barbiturates Screen Ur Phencyclidine Scrn Ur Amphetamines Screen U Benzodiazepines Scrn Urine Cocaine Screen U Marijuana (THC) Screen Ethyl Alcohol 01/16/25 04:10 Urine clean catch - Clean Catch Midstream Urine Culture - Final Escherichia coli DS: Summary Hospital Course Hospital Course: Patient is a 49-year-old male with history of MDD, opiate use disorder and cocaine use disorder who self presented to ER due to suicidal ideation secondary to worsening depression and medication noncompliance. Per crisis report, patient self presented to ER endorsing suicidal ideation. Patient reported worsening depression and not taking his medications for 2 months. Patient denied plan. Denied HI/VH. He reports auditory hallucinations of people talking and unable to understand. He reports poor sleep and appetite. History of multiple inpatient psychiatric hospitalizations. History of suicide attempt via jumping off a bridge many years ago . Patient reports history of multiple detox admissions and history of section 35s. Utox positive for buprenorphine, fentanyl, cocaine, marijuana. During admission assessment, patient presents alert and oriented x3. Calm. Patient declined to leave bed for assessment. Patient falling asleep multiple times during assessment. Irritable. Patient reports that he came to the hospital due to auditory hallucinations telling him to harm himself. He reports he has not taken his medication in days because he does not have any . Patient reports he is not interested in a substance abuse program because he is not ready yet . Patient stated the voices make me suicidal . Patient reports goal for admission is to restart his medications and plans to return to a homeless custodial in [place]. Patient reports suicidal ideation with no plan. Denies HI. Patient kept assessment brief and requested to go back to sleep. Plan: CV 15 minute safety checks Continue home medications Encourage medication compliance Encourage groups Discharge planning Laying in bed. sleeping most of day. Patient reports feeling same as yesterday ; guarded. Declined to get out of bed to meet with T/W. Encouraged to get out of bed and attend groups. denies SI/HI/VH/AH. Continue tx plan. Patient reports feeling good today; denies SI/HI/VH/AH. Future oriented. Patient reports he plans on following up with his outpatient providers and returning to [place]. Status at Discharge Cognitive/behavioral status at discharge: Patient has insight and demonstrates good judgment in terms of wanting to pursue treatment. Patient has a safety plan that includes presenting to the closest ER or calling 911 if feeling unsafe. Functional status at discharge: independent ambulation Overall status at discharge: patient is back to baseline Time Spent with Patient Time attestation: Total time managing care of this patient today _20___ minutes. Time spent: Less than 30 minutes Discharge Plan Discharge Anticipated Discharge Date/Time: 01/22/25 11:00 Patient Disposition: Home, Self-Care Discharge Diagnosis: MDD, PTSD, cocaine use d/o, opioid use d/o Referrals: [facility] [Other] - 1 Week Referral Note: walk in clinic Tuesday-Tuesday 8am-8pm as well as weekend hours Tuesday-Tuesday 9am-5pm Gary Cash FNP- [Primary Care Provider, Internal Medicine] - 1 Week Referral Note: 01-22-25 Please contact your primary care provider within 7-10 days of discharge to schedule your follow up appt. No release on file. Discharge Medications: New nitrofurantoin monohyd/m-cryst 100 mg Capsule 100 mg PO Q12H 3 Days Qty: 6 0RF bupropion HCl 150 mg Tablet Extended Release 24 Hr 150 mg PO DAILY 30 Days Qty: 30 0RF gabapentin 400 mg Capsule 400 mg PO TID 30 Days Qty: 90 0RF buprenorphine-naloxone [Suboxone] 8-2 mg Film 1 film sublingual TID 2 Days Qty: 6 0RF Continued metformin 500 mg Tablet 500 mg PO BIDWM 30 Days Qty: 60 0RF lisinopril 20 mg tablet 20 mg PO DAILY 30 Days Qty: 30 0RF Seroquel 200 mg PO BEDTIME 30 Days Qty: 30 0RF amlodipine 5 mg PO DAILY 30 Days Qty: 30 0RF prazosin 1 mg PO BEDTIME 30 Days Qty: 30 0RF Changed trazodone 150 mg tablet 150 mg PO BEDTIME 30 Days Qty: 30 0RF buspirone 15 mg tablet 15 mg PO TID 30 Days Qty: 90 0RF Discontinued hydroxyzine pamoate 50 mg capsule 50 mg PO Q8H PRN (Reason: Anxiety) gabapentin 400 mg Capsule 800 mg PO QID 30 Days Qty: 240 0RF acetaminophen 325 mg Tablet 650 mg PO Q6H PRN (Reason: Headache/Pain Mild Scale (1-3)) Qty: 0 0RF bupropion HCl 150 mg Tablet Extended Release 24 Hr 450 mg PO DAILY 30 Days Qty: 90 0RF Proscar 15 mg PO BID Suboxone film 1 film PO TID trazodone 150 mg PO BEDTIME Discharge Orders: Discharge Order (Routine); Ordered 01/22/25 Ordered By: Bonnie Crawford Diet: Regular diet Activity on Discharge: As tolerated Stand Alone Forms: Patient Portal Discharge page, Community Support Print Language: Sami Care Plan Goals: Maintain mood and safe behaviors Take medications as prescribed Continue to pursue sobriety Practice coping skills Continue with outpatient providers and reach out to them as needed Health Concerns: Mood stability and behaviors Sobriety Plan of Treatment: Follow up with your PCP, psychiatric provider and other outpatient providers regarding above concerns Take medications as prescribed Assessment: Patient has insight and demonstrates good judgment in terms of wanting to pursue treatment. Patient has a safety plan that includes presenting to the closest ER or calling 911 if feeling unsafe. Discharge Date/Time: 01/22/25 10:56
[2025-01-22] MEDS: Naloxone HCl Nasal TAKE HOME 4 MG SPRAY 8 MG NOSTRILALT (10:13)
== END 2025-01-22 10:56 | disposition home or self-care (01) | DRG 751 ==
LOC: HO.ED 09:08 → HO.PADLT16 15:14
PROVIDERS: Emergency Medicine; Physician Assistant Medical; Admitting Provider Registered Nurse; Emergency Provider Emergency Medicine; PCP Nurse Practitioner Family; Responsible Provider Registered Nurse; Visit Provider Psychiatry & Neurology Psychiatry
DX: F33.2 Major depressive disorder, recurrent severe without psychotic features (principal); R45.851 Suicidal ideations; E11.9 Type 2 diabetes mellitus without complications; F11.20 Opioid dependence, uncomplicated; E86.0 Dehydration; B96.20 Unspecified Escherichia coli [E. coli] as the cause of diseases classified elsewhere; F14.10 Cocaine abuse, uncomplicated; F19.90 Other psychoactive substance use, unspecified, uncomplicated; Z79.84 Long term (current) use of oral hypoglycemic drugs; Z79.899 Other long term (current) drug therapy
CPT/HCPCS: 36415; 80048; 80053; 80143; 80179; 80307; 81001; 82947; 83735; 85025; 87086; 87088; 87186; 93005; 99285; J3480; S9485

== ENCOUNTER → 2025-01-16 13:12 | Outpatient (BNV) | payer MEDICAID, SELFPAY | PROVIDERS: Emergency Provider Emergency Medicine; PCP Nurse Practitioner Family; Visit Provider Internal Medicine Cardiovascular Disease | DX: I45.10 Unspecified right bundle-branch block (principal) | CPT/HCPCS: 93010 ==

== ENCOUNTER → 2025-01-16 15:13 | Outpatient (BNV) | payer MEDICAID, SELFPAY | PROVIDERS: Admitting Provider Registered Nurse; Emergency Provider Emergency Medicine; PCP Nurse Practitioner Family; Responsible Provider Registered Nurse; Visit Provider Nurse Practitioner Family | DX: N39.0 Urinary tract infection, site not specified (principal) | CPT/HCPCS: 99231; 99429 ==

== ENCOUNTER → 2025-01-16 15:13 | Outpatient (BNV) | payer OTHER, SELFPAY | PROVIDERS: Admitting Provider Registered Nurse; Emergency Provider Emergency Medicine; PCP Nurse Practitioner Family; Responsible Provider Registered Nurse; Visit Provider Psychiatry & Neurology Psychiatry | DX: F33.2 Major depressive disorder, recurrent severe without psychotic features (principal); F14.10 Cocaine abuse, uncomplicated; F43.11 Post-traumatic stress disorder, acute; N39.0 Urinary tract infection, site not specified | CPT/HCPCS: 99231; 99232; 99233 ==